=== PATIENT | female | born 1955 | race Caucasian/White ===

== ENCOUNTER 2017-11-23 01:52 | Inpatient (IN) ==
--- NOTE | 2017-11-23 02:00 | ED ---
HPI General Chief Complaint: Altered Mental Status Stated Complaint: poor mental status Time Seen by Provider: 11/23/17 01:59 Source: EMS Mode of arrival: EMS Limitations: altered mental status History of Present Illness HPI narrative: The patient is a 61 year old female who presents to the [facility] emergency department with a history of altered mental status noted by her earlier this evening. The patient had been asleep and then woke up rocking and not answering any questions. According to ambulance services, the patient has had a similar episode of altered mentation in the past, however the details are vague regarding this. They report that the patient's is on the way to the emergency department. They report that the patient has not been taking her medications for the last couple of days. The patient does have a known history of hypertension, hyperlipidemia, and chronic pain. No other history is able to be obtained from the patient as she is nonverbal currently. The patient arrives awake and alert, looking around the room, otherwise uncooperative with any questioning, testing. The patient's history is obtained from reviewing the patient's electronic medical record. The patient's arrives at the bedside and reports that the patient had a similar episode of this and has had recurrent episodes similar to this that first began 2 years ago. He reports that she will have bouts of poor p.o. intake that at times are brought on by a concern for losing weight. He denies her being on any psychiatric medications. He reports that in the past she has become nonverbal and altered when she gets dehydrated. He reports that about 10 days ago she began to complain of sores in her mouth. She reports that she had small ulcers in her mouth. They were treating this topically. The last time she complained of any sores or pain was Thursday of this past week. He however reports that she has not been eating or drinking any fluids for the last 2 days. The only 2 things that the patient had said during her evaluation in the emergency department is out when the tourniquet was applied and what when her name was called. Related Data Home Medications Medication Instructions Recorded Confirmed lisinopril 30 mg PO DAILY 11/23/17 11/23/17 morphine 30 mg PO BID 11/23/17 11/23/17 oxycodone-acetaminophen [Percocet] 1 tab PO Q8H PRN 11/23/17 11/23/17 pravastatin 40 mg PO DAILY 11/23/17 11/23/17 pregabalin [Lyrica] 200 mg PO TID 11/23/17 11/23/17 tizanidine 4 mg PO DAILY 11/23/17 11/23/17 Allergies Allergy/AdvReac Type Severity Reaction Status Date / Time No Known Allergies Allergy Unverified 11/23/17 02:03 Review of Systems ROS Unobtainable ROS Unobtainable: unobtainable due to mental status PMFSH Medical History Medical History Chronic pain (Acute) HTN (hypertension) (Acute) Hyperlipidemia (Acute) Surgical History Surgical History Previous back surgery (Acute) Family History Family History Father Colon cancer Social History Social History Substance History: No History of Abuse Second Hand Smoke Exposure: No Smoking Status: Current every day smoker Tobacco Type: Cigarettes Packs Per Day: 0.5 Cigarettes Per Day: 10.0 How Often Do You Have a Drink Containing Alcohol: Never Recent Travel in [facility] within the Last 8 Weeks: No Recent Out of Country Travel within the Last 8 Weeks: No Exam Const General: no acute distress and well developed Nutritional Appearance: well nourished Orientation: alert, awake and oriented x3 HENMT Head: normocephalic and atraumatic Nose: no nasal discharge and no epistaxis Mouth: moist mucous membranes Throat: other (When attempting to look at the patient's mouth and posterior oropharynx the patient tightly clenches her mouth shut.) Eyes Sclera: normal sclerae Pupils: PERRL EOM: EOM intact bilaterally Neck Neck: trachea midline and no JVD Resp Effort & Inspection: no use of accessory muscles Auscultation: clear to auscultation bilaterally Cardio Rate: regular rate Rhythm: regular rhythm Heart Sounds: no murmurs GI Inspection: non-distended Palpation: soft, no hepatosplenomegaly and nontender Back/Spine/Pelvis Back: no CVA tenderness Skin General: dry skin (warm) Neuro General: alert and awake Cranial Nerves: other (Uncooperative with formal neurologic tasting, but moving all extremities with 5/5 strenth and intact sensation over all dermatomes. No facial assymetry.) Speech: other (She is speaking very little when spoken to but did say a few words without slurring.) Motor: strength 5/5 throughout and no movement abnormalities noted Extrem General: normal to inspection, no clubbing, no cyanosis and no edema Psych Affect: irritable affect Judgment: poor Course Consultations Consultation #1: The patient's case including history, pertinent physical examination findings, and laboratory studies were discussed with Dr. Mujica. It was agreed that the patient would be admitted to the hospitalist service. Initial Documented Vital Signs Temperature 99.0 F 11/23/17 01:58 Pulse Rate 100 H 11/23/17 01:58 Respiratory Rate 20 11/23/17 01:58 Blood Pressure 133/85 11/23/17 01:58 Pulse Oximetry 99 11/23/17 01:58 Last Documented Vital Signs Temperature 98.7 F 11/23/17 16:35 Pulse Rate 86 11/23/17 16:35 Respiratory Rate 20 11/23/17 16:35 Blood Pressure 101/66 11/23/17 16:35 Pulse Oximetry 99 11/23/17 16:35 Medical Decision Making MDM Narrative Medical decision making narrative: During the course of the patient's emergency department visit, the patient's history, examination, and differential diagnosis were reviewed with the patient. The patient was placed on a equipment monitor phototypesetting with oximetry and frequent blood pressure monitoring. The patient had IV access obtained and blood work sent for analysis. Diagnostic evaluation was started regarding the patient's altered mentation. The patient was initially provided maintenance IV fluids while workup was initiated. Diagnostic studies are remarkable for a white count of 10.2, hemoglobin 13.6, platelets 213 with 74.6 neutrophils, PT 11.4, PTT 23.3, chemistry is remarkable for a GFR of 81, chloride 112, CO2 18.3, CPK 106, troponin I is 0.08. The patient's arrived at the bedside I asked about any reports of chest pain , he denies her having any complaints of chest pain recently. Patient's TSH was noted to be low at 0.114. Urinalysis was a catheterized urine and showed 30 protein 80 or gradient ketones, no other signs of infection, alcohol level was less than 3, urine drug screen positive for opiates. Chest x-ray revealed no acute cardiopulmonary disease, CT scan of the brain showed no acute intracranial abnormality. Given the patient's intermediate elevated troponin the patient was given a dose of aspirin at 324 mg p.o., nitroglycerin 1 inch the chest wall was applied. The patient will be admitted to the hospital for continued evaluation of altered mentation which according to the is a recurrent problem that is intermittently been happening over the last 2 years. Medical Screen Exam Complete: Yes Emergency Medical Condition: Yes Differential Diagnosis Differential Diagnosis: Intracranial mass, versus hepatic encephalopathy, versus other encephalopathy, versus ischemic stroke, versus hemorrhagic stroke, versus psychiatric disorder, versus electrolyte derangements, versus dehydration Medical Records Medical records reviewed: Yes I reviewed the patient's medical records. Lab Data Lab results reviewed: Yes I reviewed the patient's lab results. Result diagrams: 11/23/17 02:22 11/23/17 02:22 Lab Results 11/23/17 11/23/17 11/23/17 Range/Units 02:22 02:22 02:22 WBC 10.2 (4.0-11.0) th/mm3 RBC 4.31 (4.00-5.30) mil/mm3 Hgb 13.6 (11.6-15.3) gm/dL Hct 40.4 (35.0-46.0) % MCV 93.9 (80.0-100.0) fL MCH 31.6 (27.0-34.0) pg MCHC 33.6 (32.0-36.0) % RDW 14.1 (11.6-17.2) % Plt Count 213 (150-450) th/mm3 MPV 10.4 (7.0-11.0) fL Neut % (Auto) 74.6 H (16.0-70.0) % Lymph % (Auto) 21.6 (9.0-44.0) % [place] % (Auto) 3.3 (0.0-8.0) % Eos % (Auto) 0.1 (0.0-4.0) % Baso % (Auto) 0.4 (0.0-2.0) % Neut # (Auto) 7.6 (1.8-7.7) th/mm3 Lymph # (Auto) 2.2 (1.0-4.8) th/mm3 [place] # (Auto) 0.3 (0.0-0.9) th/mm3 Eos # (Auto) 0.0 (0.0-0.4) th/mm3 Baso # (Auto) 0.0 (0.0-0.2) th/mm3 WBC Differential . Differential Comment Auto diff final PT 11.4 (9.8-11.6) sec INR 1.1 Ratio APTT 23.3 L (24.3-30.1) sec Puncture Site Patient Temperature O2 Saturation (90-100) % ABG pH (7.380-7.420) ABG pCO2 (38-42) mmHg ABG pO2 (61-120) mmHg ABG HCO3 (22-26) mmol/L ABG O2 Content (12.0-20.0) Vol % ABG Base Excess (-2-2) mmol/L ABG Methemoglobin (0-2) % [place] Test Hemoglobin (12.0-16.0) G/DL Carboxyhemoglobin (0-4) % Inspired O2 % Critical Value Sodium 144 (136-145) meq/L Potassium 4.2 (3.5-5.1) meq/L Chloride 112 H (98-107) meq/L Carbon Dioxide 18.3 L (21.0-32.0) meq/L Anion Gap 14 (5-15) meq/L BUN 15 (7-18) mg/dL Creatinine 0.73 (0.50-1.00) mg/dL Estimated GFR 81 L (>89) mL/min Random Glucose 89 (74-106) mg/dL Lactic Acid (0.4-2.0) mmol/L Calcium 8.5 (8.5-10.1) mg/dL Total Bilirubin 0.5 (0.2-1.0) mg/dL AST 25 (15-37) U/L ALT 16 (10-53) U/L Alkaline Phosphatase 101 (45-117) U/L Ammonia (11-32) mcmol/L Total Creatine Kinase 106 (26-192) U/L CK-MB (CK-2) 2.7 (0.5-3.6) ng/mL Troponin I 0.08 H (0.02-0.05) ng/mL Total Protein 7.1 (6.4-8.2) g/dL Albumin 3.8 (3.4-5.0) g/dL Vitamin B12 (193-986) pg/mL TSH 0.114 L (0.358-3.740) uIU/mL Free T4 (0.76-1.46) ng/dL Free T3 (2.18-3.98) pg/mL Urine Color (Yellw/Straw) Urine Clarity (Clear) Urine pH (5.0-8.5) Ur Specific [place] (1.002-1.035) Urine Protein (Neg-Trace) mg/dL Urine Glucose (UA) (Negative) mg/dL Urine Ketones (Negative) mg/dL Urine Occult Blood (Negative) Urine Nitrate (Negative) Urine Bilirubin (Negative) Urine Urobilinogen (Less than 2) mg/dL Ur Leukocyte Esterase (Negative) Urine RBC (0-3) /hpf Urine WBC (0-5) /hpf Ur Squamous Epith Cells (0-5) /hpf Urine Mucus (Occasional) /lpf Micro UA Comment Ur Microscopic Review Urine Culture Comments Stl C.difficile Tox PCR (Negative) St C. diff Tox Epid 027 (Negative) Urine Opiates Screen (Neg) Ur Barbiturates Screen (Neg) Ur Amphetamines Screen (Neg) U Benzodiazepines Scrn (Neg) Urine Cocaine Screen (Neg) U Cannabinoids Screen (Neg) Serum Alcohol Less than 3 (0-5) mg/dL 11/23/17 11/23/17 11/23/17 Range/Units 02:22 02:22 04:00 WBC (4.0-11.0) th/mm3 RBC (4.00-5.30) mil/mm3 Hgb (11.6-15.3) gm/dL Hct (35.0-46.0) % MCV (80.0-100.0) fL MCH (27.0-34.0) pg MCHC (32.0-36.0) % RDW (11.6-17.2) % Plt Count (150-450) th/mm3 MPV (7.0-11.0) fL Neut % (Auto) (16.0-70.0) % Lymph % (Auto) (9.0-44.0) % [place] % (Auto) (0.0-8.0) % Eos % (Auto) (0.0-4.0) % Baso % (Auto) (0.0-2.0) % Neut # (Auto) (1.8-7.7) th/mm3 Lymph # (Auto) (1.0-4.8) th/mm3 [place] # (Auto) (0.0-0.9) th/mm3 Eos # (Auto) (0.0-0.4) th/mm3 Baso # (Auto) (0.0-0.2) th/mm3 WBC Differential Differential Comment PT (9.8-11.6) sec INR Ratio APTT (24.3-30.1) sec Puncture Site Patient Temperature O2 Saturation (90-100) % ABG pH (7.380-7.420) ABG pCO2 (38-42) mmHg ABG pO2 (61-120) mmHg ABG HCO3 (22-26) mmol/L ABG O2 Content (12.0-20.0) Vol % ABG Base Excess (-2-2) mmol/L ABG Methemoglobin (0-2) % [place] Test Hemoglobin (12.0-16.0) G/DL Carboxyhemoglobin (0-4) % Inspired O2 % Critical Value Sodium (136-145) meq/L Potassium (3.5-5.1) meq/L Chloride (98-107) meq/L Carbon Dioxide (21.0-32.0) meq/L Anion Gap (5-15) meq/L BUN (7-18) mg/dL Creatinine (0.50-1.00) mg/dL Estimated GFR (>89) mL/min Random Glucose (74-106) mg/dL Lactic Acid 1.4 (0.4-2.0) mmol/L Calcium (8.5-10.1) mg/dL Total Bilirubin (0.2-1.0) mg/dL AST (15-37) U/L ALT (10-53) U/L Alkaline Phosphatase (45-117) U/L Ammonia Less than 10 L (11-32) mcmol/L Total Creatine Kinase (26-192) U/L CK-MB (CK-2) (0.5-3.6) ng/mL Troponin I (0.02-0.05) ng/mL Total Protein (6.4-8.2) g/dL Albumin (3.4-5.0) g/dL Vitamin B12 (193-986) pg/mL TSH (0.358-3.740) uIU/mL Free T4 (0.76-1.46) ng/dL Free T3 (2.18-3.98) pg/mL Urine Color (Yellw/Straw) Urine Clarity (Clear) Urine pH (5.0-8.5) Ur Specific [place] (1.002-1.035) Urine Protein (Neg-Trace) mg/dL Urine Glucose (UA) (Negative) mg/dL Urine Ketones (Negative) mg/dL Urine Occult Blood (Negative) Urine Nitrate (Negative) Urine Bilirubin (Negative) Urine Urobilinogen (Less than 2) mg/dL Ur Leukocyte Esterase (Negative) Urine RBC (0-3) /hpf Urine WBC (0-5) /hpf Ur Squamous Epith Cells (0-5) /hpf Urine Mucus (Occasional) /lpf Micro UA Comment Ur Microscopic Review Urine Culture Comments Stl C.difficile Tox PCR (Negative) St C. diff Tox Epid 027 (Negative) Urine Opiates Screen Pos H (Neg) Ur Barbiturates Screen Neg (Neg) Ur Amphetamines Screen Neg (Neg) U Benzodiazepines Scrn Neg (Neg) Urine Cocaine Screen Neg (Neg) U Cannabinoids Screen Neg (Neg) Serum Alcohol (0-5) mg/dL 11/23/17 11/23/17 11/23/17 Range/Units 04:00 09:32 10:02 WBC (4.0-11.0) th/mm3 RBC (4.00-5.30) mil/mm3 Hgb (11.6-15.3) gm/dL Hct (35.0-46.0) % MCV (80.0-100.0) fL MCH (27.0-34.0) pg MCHC (32.0-36.0) % RDW (11.6-17.2) % Plt Count (150-450) th/mm3 MPV (7.0-11.0) fL Neut % (Auto) (16.0-70.0) % Lymph % (Auto) (9.0-44.0) % [place] % (Auto) (0.0-8.0) % Eos % (Auto) (0.0-4.0) % Baso % (Auto) (0.0-2.0) % Neut # (Auto) (1.8-7.7) th/mm3 Lymph # (Auto) (1.0-4.8) th/mm3 [place] # (Auto) (0.0-0.9) th/mm3 Eos # (Auto) (0.0-0.4) th/mm3 Baso # (Auto) (0.0-0.2) th/mm3 WBC Differential Differential Comment PT (9.8-11.6) sec INR Ratio APTT (24.3-30.1) sec Puncture Site Right radial Patient Temperature 98.6 O2 Saturation 95 (90-100) % ABG pH 7.45 H (7.380-7.420) ABG pCO2 23 L* (38-42) mmHg ABG pO2 94 (61-120) mmHg ABG HCO3 16 L* (22-26) mmol/L ABG O2 Content 14.9 (12.0-20.0) Vol % ABG Base Excess -7.7 L (-2-2) mmol/L ABG Methemoglobin 0.5 (0-2) % [place] Test Present Hemoglobin 11.0 L (12.0-16.0) G/DL Carboxyhemoglobin 0.0 (0-4) % Inspired O2 21 % Critical Value Yes Sodium (136-145) meq/L Potassium (3.5-5.1) meq/L Chloride (98-107) meq/L Carbon Dioxide (21.0-32.0) meq/L Anion Gap (5-15) meq/L BUN (7-18) mg/dL Creatinine (0.50-1.00) mg/dL Estimated GFR (>89) mL/min Random Glucose (74-106) mg/dL Lactic Acid (0.4-2.0) mmol/L Calcium (8.5-10.1) mg/dL Total Bilirubin (0.2-1.0) mg/dL AST (15-37) U/L ALT (10-53) U/L Alkaline Phosphatase (45-117) U/L Ammonia (11-32) mcmol/L Total Creatine Kinase (26-192) U/L CK-MB (CK-2) (0.5-3.6) ng/mL Troponin I 0.13 H (0.02-0.05) ng/mL Total Protein (6.4-8.2) g/dL Albumin (3.4-5.0) g/dL Vitamin B12 (193-986) pg/mL TSH (0.358-3.740) uIU/mL Free T4 1.02 (0.76-1.46) ng/dL Free T3 1.80 L (2.18-3.98) pg/mL Urine Color Yellow (Yellw/Straw) Urine Clarity Hazy H (Clear) Urine pH 6.0 (5.0-8.5) Ur Specific [place] 1.020 (1.002-1.035) Urine Protein 30 H (Neg-Trace) mg/dL Urine Glucose (UA) Negative (Negative) mg/dL Urine Ketones 80 or greater H (Negative) mg/dL Urine Occult Blood Small H (Negative) Urine Nitrate Negative (Negative) Urine Bilirubin Negative (Negative) Urine Urobilinogen Less than 2 (Less than 2) mg/dL Ur Leukocyte Esterase Small H (Negative) Urine RBC 4 H (0-3) /hpf Urine WBC 3 (0-5) /hpf Ur Squamous Epith Cells 2 (0-5) /hpf Urine Mucus Few H (Occasional) /lpf Micro UA Comment Cath-culture not ind Ur Microscopic Review Not Reportable Urine Culture Comments Cath-cult not ind Stl C.difficile Tox PCR (Negative) St C. diff Tox Epid 027 (Negative) Urine Opiates Screen (Neg) Ur Barbiturates Screen (Neg) Ur Amphetamines Screen (Neg) U Benzodiazepines Scrn (Neg) Urine Cocaine Screen (Neg) U Cannabinoids Screen (Neg) Serum Alcohol (0-5) mg/dL 11/23/17 11/23/17 Range/Units 14:11 14:45 WBC (4.0-11.0) th/mm3 RBC (4.00-5.30) mil/mm3 Hgb (11.6-15.3) gm/dL Hct (35.0-46.0) % MCV (80.0-100.0) fL MCH (27.0-34.0) pg MCHC (32.0-36.0) % RDW (11.6-17.2) % Plt Count (150-450) th/mm3 MPV (7.0-11.0) fL Neut % (Auto) (16.0-70.0) % Lymph % (Auto) (9.0-44.0) % [place] % (Auto) (0.0-8.0) % Eos % (Auto) (0.0-4.0) % Baso % (Auto) (0.0-2.0) % Neut # (Auto) (1.8-7.7) th/mm3 Lymph # (Auto) (1.0-4.8) th/mm3 [place] # (Auto) (0.0-0.9) th/mm3 Eos # (Auto) (0.0-0.4) th/mm3 Baso # (Auto) (0.0-0.2) th/mm3 WBC Differential Differential Comment PT (9.8-11.6) sec INR Ratio APTT (24.3-30.1) sec Puncture Site Patient Temperature O2 Saturation (90-100) % ABG pH (7.380-7.420) ABG pCO2 (38-42) mmHg ABG pO2 (61-120) mmHg ABG HCO3 (22-26) mmol/L ABG O2 Content (12.0-20.0) Vol % ABG Base Excess (-2-2) mmol/L ABG Methemoglobin (0-2) % [place] Test Hemoglobin (12.0-16.0) G/DL Carboxyhemoglobin (0-4) % Inspired O2 % Critical Value Sodium (136-145) meq/L Potassium (3.5-5.1) meq/L Chloride (98-107) meq/L Carbon Dioxide (21.0-32.0) meq/L Anion Gap (5-15) meq/L BUN (7-18) mg/dL Creatinine (0.50-1.00) mg/dL Estimated GFR (>89) mL/min Random Glucose (74-106) mg/dL Lactic Acid (0.4-2.0) mmol/L Calcium (8.5-10.1) mg/dL Total Bilirubin (0.2-1.0) mg/dL AST (15-37) U/L ALT (10-53) U/L Alkaline Phosphatase (45-117) U/L Ammonia (11-32) mcmol/L Total Creatine Kinase (26-192) U/L CK-MB (CK-2) (0.5-3.6) ng/mL Troponin I 0.11 H (0.02-0.05) ng/mL Total Protein (6.4-8.2) g/dL Albumin (3.4-5.0) g/dL Vitamin B12 321 (193-986) pg/mL TSH (0.358-3.740) uIU/mL Free T4 (0.76-1.46) ng/dL Free T3 (2.18-3.98) pg/mL Urine Color (Yellw/Straw) Urine Clarity (Clear) Urine pH (5.0-8.5) Ur Specific [place] (1.002-1.035) Urine Protein (Neg-Trace) mg/dL Urine Glucose (UA) (Negative) mg/dL Urine Ketones (Negative) mg/dL Urine Occult Blood (Negative) Urine Nitrate (Negative) Urine Bilirubin (Negative) Urine Urobilinogen (Less than 2) mg/dL Ur Leukocyte Esterase (Negative) Urine RBC (0-3) /hpf Urine WBC (0-5) /hpf Ur Squamous Epith Cells (0-5) /hpf Urine Mucus (Occasional) /lpf Micro UA Comment Ur Microscopic Review Urine Culture Comments Stl C.difficile Tox PCR Negative (Negative) St C. diff Tox Epid 027 Negative (Negative) Urine Opiates Screen (Neg) Ur Barbiturates Screen (Neg) Ur Amphetamines Screen (Neg) U Benzodiazepines Scrn (Neg) Urine Cocaine Screen (Neg) U Cannabinoids Screen (Neg) Serum Alcohol (0-5) mg/dL Imaging Data Radiologist's impression: Chest X-Ray 11/23/17 02:03 CONCLUSION: 1. No acute cardiopulmonary disease. Head CT 11/23/17 02:03 CONCLUSION: 1. No acute intracranial abnormality. . ECG Data Attestation: I personally reviewed and interpreted this ECG as follows: Interpretation: The patient had an EKG done on arrival that shows a sinus tachycardia rate of 104, QRS duration 77 ms, QTC [address] segment elevation. Discharge Plan Discharge Disposition Patient Disposition: 30 Still Patient Discharge Details Diagnosis: Altered mental status, Elevated troponin, Dehydration Physicians Team ED Provider: Joanne Puri Attending Provider: Adelina Simon Other Providers: Hadley Nair Discharge Interventions Interventions: ED Discharge Assessment Last Done: 11/23/17 06:03 Vital Signs Last Done: 11/23/17 02:02 Status ED Status: Left Department Discharge Information Discharge Date/Time: 11/23/17 06:03
[2017-11-23] MEDS ORDERED: Sod Chloride 0.9% Inj 1,000 ML IV.CONT SCH ×2 (02:15)
[2017-11-23 02:32] LABS: Baso % (Auto) 0.4 % (0.0-2.0); Eos % (Auto) 0.1 % (0.0-4.0); Hematocrit 40.4 % (35.0-46.0); Hemoglobin 13.6 gm/dL (11.6-15.3); Lymph # (Auto) 2.2 th/mm3 (1.0-4.8); Lymph % (Auto) 21.6 % (9.0-44.0); Mean Corpuscular HGB Conc 33.6 % (32.0-36.0); Mean Corpuscular Hemoglobin 31.6 pg (27.0-34.0); Mean Corpuscular Volume 93.9 fL (80.0-100.0); Mean Platelet Volume 10.4 fL (7.0-11.0); Mono # (Auto) 0.3 th/mm3 (0.0-0.9); Mono % (Auto) 3.3 % (0.0-8.0); Neut # (Auto) 7.6 th/mm3 (1.8-7.7); Neut % (Auto) 74.6 % (16.0-70.0); Platelet Count 213 th/mm3 (150-450); Red Blood Count 4.31 mil/mm3 (4.00-5.30); Red Cell Distribution Width 14.1 % (11.6-17.2); White Blood Count 10.2 th/mm3 (4.0-11.0)
--- NOTE | 2017-11-23 02:34 | CT ---
EXAM DATE: 11/23/2017 2:22 AM EDT AGE/SEX: 61 years / Female INDICATIONS: Altered mental status. CLINICAL DATA: This is the patient's initial encounter. Patient reports that signs and symptoms have been present for 1 day and indicates a pain score of 0/10. MEDICAL/SURGICAL HISTORY: Hypertension. None. RADIATION DOSE: 43.00 CTDI (mGy) COMPARISON: No prior exams available for comparison. TECHNIQUE: CT of the head without contrast. Using automated exposure control and adjustment of the mA and/or kV according to patient size, radiation dose was kept as low as reasonably achievable to ob tain optimal diagnostic quality images. DICOM format image data is available electronically for revi ew and comparison. FINDINGS: Cerebrum: The ventricles are normal for age. No evidence of midline shift, mass lesion, hemorrhage o r acute infarction. No extraaxial fluid collections are seen. Posterior Fossa: The cerebellum and brainstem are intact. The 4th ventricle is midline. The cerebe llopontine angle is unremarkable. Extracranial: The visualized portion of the orbits is intact. Skull: The calvaria is intact. No evidence of skull fracture. CONCLUSION: 1. No acute intracranial abnormality. . Electronically signed by: Bernardino Springer MD 11/23/2017 2:33 AM EDT
--- NOTE | 2017-11-23 02:40 | XR ---
EXAM DATE: 11/23/2017 2:03 AM EDT AGE/SEX: 61 years / Female INDICATIONS: Altered mental status. CLINICAL DATA: This is the patient's initial encounter. Patient reports that signs and symptoms have been present for 1 day and indicates a pain score of Nonresponsive. MEDICAL/SURGICAL HISTORY: Hypertension. . Unable to obtain. COMPARISON: No prior exams available for comparison. FINDINGS: A single AP view of the chest demonstrates the lungs to be symmetrically aerated without evidence of mass, infiltrate or effusion. The cardiomediastinal contours are unremarkable. Osseous structures a re intact. CONCLUSION: 1. No acute cardiopulmonary disease. Electronically signed by: Bernardino Springre MD 11/23/2017 2:39 AM EDT
[2017-11-23 02:49] LABS: Albumin 3.8 g/dL (3.4-5.0); Anion Gap 14 meq/L (5-15); Aspartate Aminotransferase 25 U/L (15-37); Blood Urea Nitrogen 15 mg/dL (7-18); Calcium 8.5 mg/dL (8.5-10.1); Carbon Dioxide 18.3 meq/L (21.0-32.0); Chloride 112 meq/L (98-107); Glomerular Filtration Rate 81 mL/min (>89); Glucose,Random 89 mg/dL (74-106); Potassium 4.2 meq/L (3.5-5.1); Sodium 144 meq/L (136-145)
[2017-11-23 02:56] LABS: Activated Partial Thrombo Time 23.3 sec (24.3-30.1); INR 1.1 Ratio; Prothrombin Time 11.4 sec (9.8-11.6)
[2017-11-23 02:58] LABS: Alanine Aminotransferase 16 U/L (10-53); Alkaline Phosphatase 101 U/L (45-117); Creatine Kinase 106 U/L (26-192); Thyroid Stimulating Hormone 0.114 uIU/mL (0.358-3.740); Total Protein 7.1 g/dL (6.4-8.2); Troponin I 0.08 ng/mL (0.02-0.05)
[2017-11-23 03:14] LABS: Creatine Kinase MB 2.7 ng/mL (0.5-3.6)
[2017-11-23] MEDS ORDERED: Aspirin 300 MG Supp RECTAL ONE (03:30)
[2017-11-23] MEDS ORDERED: Sodium Chlor 0.9% Inj 500 ML IV.SIG ONE (03:30)
[2017-11-23 04:11] LABS: Bilirubin,Urine Negative (Negative); Clarity,Urine Hazy (Clear); Color,Urine Yellow (Yellw/Straw); Glucose,Urine (UA) Negative (Negative); Leukocyte Esterase,Urine Small (Negative); Mucus,Urine Few /lpf (Occasional); Nitrite,Urine Negative (Negative); Squamous Epithelial Cell,Urine 2 /hpf (0-5)
[2017-11-23 04:12] LABS: Amphetamine Screen,Urine Neg (Neg); Barbiturate Screen,Urine Neg (Neg); Cannabinoid Screen,Urine Neg (Neg); Cocaine Screen,Urine Neg (Neg)
[2017-11-23 04:14] LABS: Opiate Screen,Urine Pos (Neg)
[2017-11-23] MEDS ORDERED: Acetaminophen 325 MG Tablet PO PRN (05:18)
[2017-11-23] MEDS ORDERED: Bisacodyl 10 MG Supp RECTAL PRN (05:18)
[2017-11-23] MEDS: Sod Chloride 0.9% Inj 1,000 ML IV.CONT SCH ×4 (05:23→20:09)
[2017-11-23 09:43] LABS: ABG Base Excess -7.7 mmol/L (-2-2); ABG PCO2 23 mmHg (38-42); ABG PO2 94 mmHg (61-120)
[2017-11-23] MEDS ORDERED: Dextrose 50% in Water 50 ML Vial IV.PUSH PRN (09:45)
--- NOTE | 2017-11-23 09:58 | P.HP ---
History of Present Illness Service: Hospitalist Primary Care Physician: nneka Mark Chief Complaint: altered mental status/encephalopathy History of Present Illness: This is a 61-year-old female with a past medical history significant for hypertension, dyslipidemia, chronic back pain status post multiple lumbar surgeries on morphine, Percocet, Lyrica and Tizanidine who presents to [facility] ED with altered mental status/acute encephalopathy. Patient is unable to provide any history and therefore history is obtained from discussion with the who is at the bedside as well as review of electronic medical record. Patient's states that the past Thursday patient began complaining of sores in her mouth and a slight cough. He denies any associated fever, chills, dizziness, nausea, vomiting, chest pain, shortness of breath or abdominal pain. He does not recall her having any complaints of dysuria or diarrhea. He reports that due to the painful sores in her mouth, she was eating and drinking very little. He says that yesterday she became even more altered and was not able to recognize him at all. He says that she was rocking and not answering any of his questions. Patient's reports that she had a similar episode 2 years ago that was due to dehydration. Patient's states that she has not been taking her normal pain medications for the past several days. Additionally, he denies that she has any history of psychiatric illness or seizure disorder. He does state that she has had 3 episodes of watery incontinent stools since admission. Per review of the EMR, patient did have an admission at this facility in 2016 due to altered mental status secondary to hepatic encephalopathy Review of Systems unobtainable due to mental status PMFSH - History History Provided By: Family Member, Medical Record - Medical History Medical History: Medical History (Last Reviewed 11/23/17 @ 09:17 by Delores hCavez) HTN (hypertension) Chronic pain Hyperlipidemia - Surgical History Surgical History: Surgical History (Last Reviewed 11/23/17 @ 09:17 by Delores Chavez) Previous back surgery - Family History Family History: Family History (Last Updated 11/23/17 @ 09:18 by Delores Chavez) Father Colon cancer - Social History I have reviewed the patient's Social History: Yes - Tobacco History Second Hand Smoke Exposure: No Smoking Status: Current every day smoker Tobacco Type: Cigarettes Packs Per Day: 0.5 - Alcohol History How Often Do You Have a Drink Containing Alcohol: Never - Substance Use History Substance History: No History of Abuse - Travel History Recent Travel in the [place] Within the Last 8 Weeks: No Recent Travel Out of the Country Within the Last 8 Weeks: No - Immunization History Tetanus Immunization: Unsure Hx Influenza Vaccine This Season: Unable to Assess Medications and Allergies Active Medications: Active Medications Acetaminophen (Tylenol) 650 mg PO Q4H PRN PRN Reason: Temp > 100.4 Al Hydroxide/Mg Hydroxide (Milk Of Magnesia Liq) 30 ml PO Q12H PRN PRN Reason: Mild Constipation Bisacodyl (Dulcolax Supp) 10 mg RECTAL DAILY PRN PRN Reason: SEVERE CONSITIPATION Sodium Chloride (Ns Inj) 1,000 mls @ 100 mls/hr IV.CONT .Q10H [facility] Last Admin: 11/23/17 05:34 Dose: 100 mls/hr Lactulose (Lactulose Liq) 30 ml PO DAILY PRN PRN Reason: SEVERE CONSITIPATION Ondansetron HCl (Zofran Inj) 4 mg IV.PUSH Q6H PRN PRN Reason: NAUSEA OR VOMITING Pravastatin Sodium (Pravachol) 40 mg PO DAILY [facility] Senna/Docusate Sodium (Kaylyn-Colace) 1 tab PO BID [facility] Sennosides (Senokot) 17.2 mg PO Q12H PRN PRN Reason: Moderate Constipation Sodium Chloride (Ns Flush) 2 ml IV.FLUSH PRN PRN PRN Reason: FLUSH AFTER USING IV ACCESS Allergies Allergy/AdvReac Type Severity Reaction Status Date / Time No Known Allergies Allergy Unverified 11/23/17 02:03 Home Medications Medication Instructions Recorded Confirmed Type lisinopril 30 mg PO DAILY 11/23/17 11/23/17 History morphine 30 mg PO BID 11/23/17 11/23/17 History oxycodone-acetaminophen [Percocet] 1 tab PO Q8H PRN 11/23/17 11/23/17 History pravastatin 40 mg PO DAILY 11/23/17 11/23/17 History pregabalin [Lyrica] 200 mg PO TID 11/23/17 11/23/17 History tizanidine 4 mg PO DAILY 11/23/17 11/23/17 History Exam Vital signs: Vital Signs 11/23/17 01:58 11/23/17 02:02 11/23/17 02:30 Temperature 99.0 F Pulse Rate 100 H 100 H Respiratory Rate 20 20 Blood Pressure 133/85 132/80 Pulse Oximetry 99 98 98 11/23/17 06:25 11/23/17 07:12 11/23/17 07:15 Temperature Pulse Rate 99 H Respiratory Rate 20 Blood Pressure 136/79 Pulse Oximetry 96 97 11/23/17 08:00 Temperature 98.8 F Pulse Rate 103 H Respiratory Rate 16 Blood Pressure 116/60 Pulse Oximetry 93 L Intake & Output 11/22/17 11/23/17 11/23/17 18:59 06:59 18:59 Intake Total 500 / 500 Balance 500 / 500 Weight 68.07 kg Intake: IV 500 / 500 NS Inj 500 ML @ Wide Open IV. 500 / 500 SIG BOLUS ONE Rx#:[id number] Narrative: GENERAL: WDWN middle aged female patient, in no acute distress. Awake. Minimally responsive. Will not follow commands. Lying on her right side with arms clenched up to her chest, when asked to roll on to her back she mumbles no otherwise does not answer any questions. Rocking rhythmically. is at the bedside. SKIN: Warm and dry. Well healed mid lumbar spine surgical incision. HEAD: Atraumatic. Normocephalic. EYES: Pupils equal and round. No scleral icterus. No injection or drainage. ENT: No nasal bleeding or discharge. Mucous membranes pink and moist. NECK: Trachea midline. No JVD. CARDIOVASCULAR: Regular rate and rhythm. No murmur, rubs or gallops. RESPIRATORY: No accessory muscle use. Clear to auscultation. Breath sounds equal bilaterally. GASTROINTESTINAL: Abdomen soft, non-tender, nondistended. Hepatic and splenic margins not palpable. MUSCULOSKELETAL: Extremities without clubbing, cyanosis, or edema. No obvious deformities. NEUROLOGICAL: Awake. Will not follow simple commands. Able to move all extremities spontaneously. Minimal verbalization. PSYCHIATRIC: Unable to assess due to patients altered mental status. Results - Labs CBC & Chem 7: 11/23/17 02:22 11/23/17 02:22 Labs: Laboratory Results - last 24 hr 11/23/17 11/23/17 11/23/17 02:22 02:22 02:22 WBC 10.2 RBC 4.31 Hgb 13.6 Hct 40.4 MCV 93.9 MCH 31.6 MCHC 33.6 RDW 14.1 Plt Count 213 MPV 10.4 Neut % (Auto) 74.6 H Lymph % (Auto) 21.6 Bradley % (Auto) 3.3 Eos % (Auto) 0.1 Baso % (Auto) 0.4 Neut # (Auto) 7.6 Lymph # (Auto) 2.2 Bradley # (Auto) 0.3 Eos # (Auto) 0.0 Baso # (Auto) 0.0 WBC Differential . Differential Comment Auto diff final PT 11.4 INR 1.1 APTT 23.3 L Sodium 144 Potassium 4.2 Chloride 112 H Carbon Dioxide 18.3 L Anion Gap 14 BUN 15 Creatinine 0.73 Estimated GFR 81 L Random Glucose 89 Lactic Acid Calcium 8.5 Total Bilirubin 0.5 AST 25 ALT 16 Alkaline Phosphatase 101 Ammonia Total Creatine Kinase 106 CK-MB (CK-2) 2.7 Troponin I 0.08 H Total Protein 7.1 Albumin 3.8 TSH 0.114 L Urine Color Urine Clarity Urine pH Ur Specific [place] Urine Protein Urine Glucose (UA) Urine Ketones Urine Occult Blood Urine Nitrate Urine Bilirubin Urine Urobilinogen Ur Leukocyte Esterase Urine RBC Urine WBC Ur Squamous Epith Cells Urine Mucus Micro UA Comment Ur Microscopic Review Urine Culture Comments Urine Opiates Screen Ur Barbiturates Screen Ur Amphetamines Screen U Benzodiazepines Scrn Urine Cocaine Screen U Cannabinoids Screen Serum Alcohol Less than 3 11/23/17 11/23/17 11/23/17 02:22 02:22 04:00 WBC RBC Hgb Hct MCV MCH MCHC RDW Plt Count MPV Neut % (Auto) Lymph % (Auto) Bradley % (Auto) Eos % (Auto) Baso % (Auto) Neut # (Auto) Lymph # (Auto) Bradley # (Auto) Eos # (Auto) Baso # (Auto) WBC Differential Differential Comment PT INR APTT Sodium Potassium Chloride Carbon Dioxide Anion Gap BUN Creatinine Estimated GFR Random Glucose Lactic Acid 1.4 Calcium Total Bilirubin AST ALT Alkaline Phosphatase Ammonia Less than 10 L Total Creatine Kinase CK-MB (CK-2) Troponin I Total Protein Albumin TSH Urine Color Urine Clarity Urine pH Ur Specific [place] Urine Protein Urine Glucose (UA) Urine Ketones Urine Occult Blood Urine Nitrate Urine Bilirubin Urine Urobilinogen Ur Leukocyte Esterase Urine RBC Urine WBC Ur Squamous Epith Cells Urine Mucus Micro UA Comment Ur Microscopic Review Urine Culture Comments Urine Opiates Screen Pos H Ur Barbiturates Screen Neg Ur Amphetamines Screen Neg U Benzodiazepines Scrn Neg Urine Cocaine Screen Neg U Cannabinoids Screen Neg Serum Alcohol 11/23/17 04:00 WBC RBC Hgb Hct MCV MCH MCHC RDW Plt Count MPV Neut % (Auto) Lymph % (Auto) Bradley % (Auto) Eos % (Auto) Baso % (Auto) Neut # (Auto) Lymph # (Auto) Bradley # (Auto) Eos # (Auto) Baso # (Auto) WBC Differential Differential Comment PT INR APTT Sodium Potassium Chloride Carbon Dioxide Anion Gap BUN Creatinine Estimated GFR Random Glucose Lactic Acid Calcium Total Bilirubin AST ALT Alkaline Phosphatase Ammonia Total Creatine Kinase CK-MB (CK-2) Troponin I Total Protein Albumin TSH Urine Color Yellow Urine Clarity Hazy H Urine pH 6.0 Ur Specific [place] 1.020 Urine Protein 30 H Urine Glucose (UA) Negative Urine Ketones 80 or greater H Urine Occult Blood Small H Urine Nitrate Negative Urine Bilirubin Negative Urine Urobilinogen Less than 2 Ur Leukocyte Esterase Small H Urine RBC 4 H Urine WBC 3 Ur Squamous Epith Cells 2 Urine Mucus Few H Micro UA Comment Cath-culture not ind Ur Microscopic Review Not Reportable Urine Culture Comments Cath-cult not ind Urine Opiates Screen Ur Barbiturates Screen Ur Amphetamines Screen U Benzodiazepines Scrn Urine Cocaine Screen U Cannabinoids Screen Serum Alcohol - Imaging Impressions Chest X-Ray 11/23/17 02:03 CONCLUSION: 1. No acute cardiopulmonary disease. Head CT 11/23/17 02:03 CONCLUSION: 1. No acute intracranial abnormality. . Caprini VTE Risk Assessment Caprini VTE Risk Assessment: Moderate/High Risk (score >= 2) Caprini Risk Assessment Model: Point Value = 1 Point Value = 2 Point Value = 3 Point Value = 5 Age 41-60 Minor surgery BMI > 25 kg/m2 Swollen legs Varicose veins or History of unexplained or recurrent spontaneous Oral contraceptives or hormone replacement Sepsis (< 1 month) Serious lung disease, including pneumonia (< 1 month) Abnormal pulmonary function Acute myocardial infarction Congestive heart failure (< 1 month) History of inflammatory bowel disease Medical patient at bed rest Age 61-74 Arthroscopic surgery Major open surgery (> 45 min) Laparoscopic surgery (> 45 min) Malignancy Confined to bed (> 72 hours) Immobilizing plaster cast Central venous access Age >= 75 History of VTE Family history of VTE Factor V Leiden Prothrombin [id number] Lupus anticoagulant Anticardiolipin antibodies Elevated serum homocysteine Heparin-induced thrombocytopenia Other congenital or acquired thrombophilia Stroke (< 1 month) Elective arthroplasty Hip, pelvis, or leg fracture Acute spinal cord injury (< 1 month) Prophylaxis Regimen: Total Risk Factor Score Risk Level Prophylaxis Regimen 0-1 Low Early ambulation 2 Moderate Order ONE of the following: *Sequential Compression Device (SCD) *Heparin 5000 units SQ BID 3-4 Higher Order ONE of the following medications: *Heparin 5000 units SQ TID *Enoxaparin/Lovenox 40 mg SQ daily (WT < 150 kg, CrCl > 30 mL/min) *Enoxaparin/Lovenox 30 mg SQ daily (WT < 150 kg, CrCl > 10-29 mL/min) *Enoxaparin/Lovenox 30 mg SQ BID (WT < 150 kg, CrCl > 30 mL/min) AND/OR *Sequential Compression Device (SCD) 5 or more Highest Order ONE of the following medications: *Heparin 5000 units SQ TID (Preferred with Epidurals) *Enoxaparin/Lovenox 40 mg SQ daily (WT < 150 kg, CrCl > 30 mL/min) *Enoxaparin/Lovenox 30 mg SQ daily (WT < 150 kg, CrCl > 10-29 mL/min) *Enoxaparin/Lovenox 30 mg SQ BID (WT < 150 kg, CrCl > 30 mL/min) AND *Sequential Compression Device (SCD) Assessment and Plan - Plan Acute encephalopathy/altered mental status unclear etiology, possibly due to combination of polypharmacy and poor oral intake/dehydration no hx of psychiatric illness CT head neg for acute intracranial abnormality UDS + opiates. Patient on morphine, Percocet, Lyrica and Tizanidine at home Ammonia level 10 CBC WNL, CXR neg, images reviewed by me, UA not indicative of UTI afebrile, O2 sats 93% on RA -neuro checks -continuous cardiac monitoring -PT/OT/ST -swallow evaluation -obtain EEG and ABG -obtain RPR, check B12 level -fall and seizure precautions -avoid all sedating medications, will hold home Morphine, Percocet, Lyrica and Tizanidine -IVF Elevated troponin, mild EKG with sinus tach, no e/o ischemia no complaints of chest pain per -continue to trend Abbey -continuous cardiac monitoring Diarrhea reports 3 watery incontinent BMs -send stool for C diff, enteric stool studies -keep hydrated -avoid stool softeners -monitor stooling Low TSH, 0.114 -check free T4 and Total T3 DVT prophylaxis -Heparin sq Code Status: FULL Discussed Condition With: , nursing staff, Dr. Simon
[2017-11-23] MEDS ORDERED: levETIRAcetam 1000mg/100mL Inj 100 ML IV.SIG ONE (11:11)
[2017-11-23 11:14] LABS: Free T4 (Free Thyroxine) 1.02 ng/dL (0.76-1.46); Triiodothyronine (T3) Free 1.8 pg/mL (2.18-3.98); Troponin I 0.13 ng/mL (0.02-0.05)
[2017-11-23] MEDS: Senna/Docusate Sodium 8.6/50 MG Tablet PO SCH (11:19)
--- NOTE | 2017-11-23 11:41 | MG ---
cc: Hadley Nair MD, PhD TYPE OF STUDY: EEG. TECHNIQUE: This is a 17-channel EEG. DESCRIPTION: The background rhythm is generally slow in the delta frequency of 3-4 Hz. At times, there is a theta rhythm. Vertex sharp waves are seen consistent with sleep activity. There is some triphasic activity as well. Some sharp activity identified bilaterally of nonspecific. INTERPRETATION: Abnormal study consistent with diffuse encephalopathy with vertex sharp waves, probably related to sleep activity. Also, some evidence of high-amplitude sharp activity, which mainly has a contour of triphasic waves consistent with metabolic encephalopathy. Hadley Nair MD, PhD RODNEY/andrés , 11:26 AM , 11:33 AM
[2017-11-23 15:14] LABS: Troponin I 0.11 ng/mL (0.02-0.05)
--- NOTE | 2017-11-23 16:22 | ECG ---
Date Performed: 11/23/2017 Time Performed: 02:03:19 PTAGE: 61 years EKG: SINUS TACHYCARDIA NONSPECIFIC T-WAVE ABNORMALITY ABNORMAL RHYTHM ECG PREVIOUS TRACING : 01/05/2016 13.35 Since the previous tracing, no significant change noted DOCTOR: Matilde Childress Interpretating Date/Time 11/23/2017 16:21:31
[2017-11-23] MEDS ORDERED: Heparin - SQ 10,000 UNITS/ML Vial SQ SCH (21:00)
--- NOTE | 2017-11-23 21:02 | MB ---
cc: aHdley Nair MD, PhD DATE: 11/23/2017 REASON FOR CONSULTATION: Mental status change. HISTORY OF PRESENT ILLNESS: Ms. Woodruff is a 61-year-old woman whose states she began to have a sore throat about a week ago and because of this, decreased her p.o. intake for the past week. She has not been eating much or drinking much. states that over the last day or so, she has become essentially noncommunicative, not following commands, not making any sense. He states she has had a similar episode a couple years ago, which did respond to IV fluids. PAST MEDICAL HISTORY: There is a history of hypertension, hyperlipidemia, chronic pain. MEDICATIONS: 1. Currently are Keppra, which was started in the hospital. 2. Subcutaneous heparin 5000 b.i.d. 3. Keppra dose is Keppra dose is 500 mg IV every 12 hours. 4. Ativan p.r.n. 5. Zofran p.r.n. 6. Pravachol 40 mg daily. 7. Senokot. NEUROLOGICAL EXAMINATION: VITAL SIGNS: Her blood pressure is 112/64, pulse is 107, respirations 20, temperature 99.1 degrees. HIGHER CORTICAL FUNCTION: She is alert appearing has no speech output. She follows some commands. NECK: Supple. NEUROLOGIC: Cranial nerves are intact. Motor exam: She has no focal deficits, but difficult to fully assess due to lack of cooperation. Tone is normal. CT brain negative. EEG shows diffuse slowing with triphasic waves. There is sharp activity thought to be mainly part of triphasic waves. LABORATORY DATA: The white count is 10,200, hemoglobin is 13.6, hematocrit 40.4%, platelet count 213,000. Tox screen positive for opiates. Her PT 11.4, INR 1.1, aPTT 23.3. Sodium is 144, potassium 4.2, chloride 112, CO2 is 18.3. The BUN is 15, creatinine 0.73, GFR is 81, glucose 89, AST 25, ALT 16, ammonia less than 10. Troponin 0.08. B12 level 321, TSH 0.114, T3 1.8. RPR pending. IMPRESSION: Probable encephalopathy. RECOMMENDATION: I would like to get an MRI of the brain to rule out stroke. I also recommend lumbar puncture to rule out [employer] infection. Continue the Keppra for now, although history is not entirely consistent with seizure activity. Hadley Nair MD, PhD RODNEY/chana , 06:02 PM , 06:09 PM
[2017-11-24] MEDS: Sod Chloride 0.9% Inj 1,000 ML IV.CONT SCH ×2 (00:31→11:36)
[2017-11-24] MEDS: Senna/Docusate Sodium 8.6/50 MG Tablet PO SCH ×2 (00:32→08:49)
[2017-11-24 08:38] LABS: Baso % (Auto) 0.1 % (0.0-2.0); Hematocrit 33.3 % (35.0-46.0); Hemoglobin 11.3 gm/dL (11.6-15.3); Lymph # (Auto) 1.8 th/mm3 (1.0-4.8); Lymph % (Auto) 19.5 % (9.0-44.0); Mean Corpuscular HGB Conc 33.9 % (32.0-36.0); Mean Corpuscular Hemoglobin 31.8 pg (27.0-34.0); Mean Platelet Volume 9.6 fL (7.0-11.0); Mono # (Auto) 0.5 th/mm3 (0.0-0.9); Neut # (Auto) 7.1 th/mm3 (1.8-7.7); Neut % (Auto) 75.4 % (16.0-70.0); Platelet Count 185 th/mm3 (150-450); Red Blood Count 3.54 mil/mm3 (4.00-5.30); Red Cell Distribution Width 14.3 % (11.6-17.2); White Blood Count 9.4 th/mm3 (4.0-11.0)
[2017-11-24 09:08] LABS: Alanine Aminotransferase 15 U/L (10-53); Albumin 3.1 g/dL (3.4-5.0); Alkaline Phosphatase 77 U/L (45-117); Anion Gap 16 meq/L (5-15); Aspartate Aminotransferase 29 U/L (15-37); Blood Urea Nitrogen 12 mg/dL (7-18); Calcium 7.9 mg/dL (8.5-10.1); Carbon Dioxide 13.4 meq/L (21.0-32.0); Chloride 122 meq/L (98-107); Glomerular Filtration Rate Greater Than 89 mL/min (>89); Glucose,Random 77 mg/dL (74-106); Sodium 151 meq/L (136-145); Total Protein 5.9 g/dL (6.4-8.2)
--- NOTE | 2017-11-24 09:09 | P.PN ---
Subjective Interval history: Follow-up for encephalopathy. Patient seen with her at bedside. Patient remains nonverbal, although does moan, follows few simple commands, and shakes her head "no" to few questions. History is very limited from the patient. reports not much improvement compared to yesterday. She denies any pain. No documented fevers overnight. She continues to have episodes of diarrhea. No other events reported overnight. Physical Exam Vital signs: Vital Signs 11/23/17 11:48 11/23/17 16:35 11/23/17 20:00 Temperature 99.1 F 98.7 F 99.3 F Pulse Rate 107 H 86 97 H Respiratory Rate 20 20 20 Blood Pressure 112/64 101/66 124/69 Pulse Oximetry 95 99 11/24/17 00:00 11/24/17 04:00 11/24/17 07:40 Temperature 99.3 F 98.7 F 99.5 F Pulse Rate 102 H 97 H 78 Respiratory Rate 20 16 20 Blood Pressure 124/69 122/60 140/66 Pulse Oximetry 97 99 Intake & Output 11/23/17 11/24/17 11/24/17 18:59 06:59 18:59 Intake Total 1300 / 1300 1105 / 1105 Balance 1300 / 1300 1105 / 1105 Weight 68.039 kg Intake: IV 1300 / 1300 1105 / 1105 NS Inj 1,000 ML @ 100 mls/hr IV 1200 / 1200 1000 / 1000 .CONT .Q10H [facility] Rx#:[id number] Keppra 1000 mg/100 mL Premix 100 / 100 100 ML @ 400 mls/hr IV.SIG ONCE ONE Rx#:[id number] Keppra Inj 500 MG In NS Inj 100 105 / 105 ML @ 400 mls/hr IV.SIG Q12H [facility] Rx#:[id number] Other: # Urine Diapers 5 2 # Incontinent Bowel Movements 2 Weight On Admission 68.039 kg Narrative: GENERAL: Well-nourished, well-developed middle-aged female patient in NAD. Awake, opens eyes on command. SKIN: Warm and dry. No rash. HEENT: Normocephalic. Atraumatic. Pupils equal and round. Mucous membranes pink and moist. NECK: Supple. Trachea midline. Nontender. Touches chin to chest during exam. CARDIOVASCULAR: Regular rate and rhythm. No murmur appreciated. RESPIRATORY: No accessory muscle use. Clear to auscultation. Breath sounds equal bilaterally. GASTROINTESTINAL: Abdomen soft, non-tender, nondistended. Normoactive bowel sounds x4. MUSCULOSKELETAL: No obvious deformities. Extremities without clubbing, cyanosis , or edema. NEUROLOGICAL: Awake and alert. Moving all extremities spontaneously. Did participate in bilateral upper extremity strength testing, with 5/5 strength. Does not verbalize any words, but does shake her head no and moans throughout exam. PSYCHIATRIC: Unable to assess due to altered mental status. Results - Labs CBC & Chem 7: 11/24/17 08:21 11/24/17 08:21 Laboratory Results - last 24 hr 11/23/17 11/23/17 11/23/17 09:32 10:02 14:11 WBC RBC Hgb Hct MCV MCH MCHC RDW Plt Count MPV Neut % (Auto) Lymph % (Auto) [place] % (Auto) Eos % (Auto) Baso % (Auto) Neut # (Auto) Lymph # (Auto) [place] # (Auto) Eos # (Auto) Baso # (Auto) WBC Differential Differential Comment Puncture Site Right radial Patient Temperature 98.6 O2 Saturation 95 ABG pH 7.45 H ABG pCO2 23 L* ABG pO2 94 ABG HCO3 16 L* ABG O2 Content 14.9 ABG Base Excess -7.7 L ABG Methemoglobin 0.5 [place] Pablo Test Present Hemoglobin 11.0 L Carboxyhemoglobin 0.0 Inspired O2 21 Critical Value Yes Sodium Potassium Chloride Carbon Dioxide Anion Gap BUN Creatinine Estimated GFR POC Glucose Random Glucose Calcium Total Bilirubin AST ALT Alkaline Phosphatase Troponin I 0.13 H 0.11 H Total Protein Albumin Vitamin B12 321 Free T4 1.02 Free T3 1.80 L Stl C.difficile Tox PCR St C. diff Tox Epid 027 11/23/17 11/23/17 11/24/17 14:45 23:31 08:21 WBC 9.4 RBC 3.54 L Hgb 11.3 L D Hct 33.3 L MCV 94.0 MCH 31.8 MCHC 33.9 RDW 14.3 Plt Count 185 MPV 9.6 Neut % (Auto) 75.4 H Lymph % (Auto) 19.5 [place] % (Auto) 5.0 Eos % (Auto) 0.0 Baso % (Auto) 0.1 Neut # (Auto) 7.1 Lymph # (Auto) 1.8 [place] # (Auto) 0.5 Eos # (Auto) 0.0 Baso # (Auto) 0.0 WBC Differential . Differential Comment Auto diff final Puncture Site Patient Temperature O2 Saturation ABG pH ABG pCO2 ABG pO2 ABG HCO3 ABG O2 Content ABG Base Excess ABG Methemoglobin [place] Test Hemoglobin Carboxyhemoglobin Inspired O2 Critical Value Sodium Potassium Chloride Carbon Dioxide Anion Gap BUN Creatinine Estimated GFR POC Glucose 75 Random Glucose Calcium Total Bilirubin AST ALT Alkaline Phosphatase Troponin I Total Protein Albumin Vitamin B12 Free T4 Free T3 Stl C.difficile Tox PCR Negative St C. diff Tox Epid 027 Negative 11/24/17 08:21 WBC RBC Hgb Hct MCV MCH MCHC RDW Plt Count MPV Neut % (Auto) Lymph % (Auto) [place] % (Auto) Eos % (Auto) Baso % (Auto) Neut # (Auto) Lymph # (Auto) [place] # (Auto) Eos # (Auto) Baso # (Auto) WBC Differential Differential Comment Puncture Site Patient Temperature O2 Saturation ABG pH ABG pCO2 ABG pO2 ABG HCO3 ABG O2 Content ABG Base Excess ABG Methemoglobin [place] Test Hemoglobin Carboxyhemoglobin Inspired O2 Critical Value Sodium 151 H Potassium 3.0 L D Chloride 122 H D Carbon Dioxide 13.4 L Anion Gap 16 H BUN 12 Creatinine 0.53 Estimated GFR Greater than 89 POC Glucose Random Glucose 77 Calcium 7.9 L Total Bilirubin 0.5 AST 29 ALT 15 Alkaline Phosphatase 77 Troponin I Total Protein 5.9 L D Albumin 3.1 L D Vitamin B12 Free T4 Free T3 Stl C.difficile Tox PCR St C. diff Tox Epid 027 - Imaging Chest X-Ray 11/23/17 02:03 CONCLUSION: 1. No acute cardiopulmonary disease. Head CT 11/23/17 02:03 CONCLUSION: 1. No acute intracranial abnormality. . Assessment and Plan - Plan 61-year-old female with a past medical history significant for hypertension, dyslipidemia, chronic back pain status post multiple lumbar surgeries on morphine, Percocet, Lyrica and Tizanidine who presents to [facility] ED with altered mental status/acute encephalopathy. Patient is unable to provide any history and therefore history is obtained from discussion with the who is at the bedside as well as review of electronic medical record. Acute encephalopathy/altered mental status: acute, unclear etiology, possibly due to combination of polypharmacy and poor oral intake/dehydration. Rule out infection/stroke. No hx of psychiatric illness -CT head reviewed and neg for any acute intracranial abnormality -UDS + opiates. Patient on morphine, Percocet, Lyrica and Tizanidine at home -Ammonia level 10 -CBC wnl, afebrile, CXR neg, images reviewed by me, UA not indicative of UTI -Blood cultures ordered -neuro checks, fall/seizure precautions, continuous cardiac monitoring -PT/OT/ST with swallow evaluation -EEG abnormal consistent with encephalopathy -RPR nonreactive, vit B12 321 -avoid all sedating medications, holding home Morphine, Percocet, Lyrica and Tizanidine -Supportive treatment with IVF - changed to D5 1/2 NS with KCl (Na 151 and K 3.0) -Consulted neurology with abnormal EEG, ordered LP and MRI -Continue Keppra for now -Check ESR/CRP Elevated troponin, mild: patient denying any chest pain to providers and denies any reported chest pain from the patient. Suspect demand ischemia from tachycardia -EKG with sinus tach, no evidence of ischemia -troponins flat 0.08, 0.13, 0.11 -continuous cardiac monitoring Diarrhea: reports 3 watery incontinent BMs, continues to have diarrhea throughout admission -stool negative for C diff -enteric stool studies pending -give IVF hydration -start lactinex -avoid stool softeners -monitor BMs Low TSH, 0.114 -Free T4 wnl -Outpatient f/up with PCP and repeat TSH/T4 Hypernatremia/Hypokalemia: Na 151 and K 3.0. Suspect iatrogenic from IVF in combination with poor oral intake -change IVF from NS to D5W with KCl @ 84cc/hr -Repeat BMP this afternoon and in am DVT prophylaxis -Heparin sq Discussed Condition With: Patient, Patient's , RN, Dr. Simon I spent 35 minutes [id number] with the patient or on the fitch discussing the patient's disposition, prognosis, and plan of care with her caregivers. Over half the time spent was devoted to counseling the patient regarding placement in coordinating care with caregivers and case management. Discharge Planning: Discharge pending LP, MRI, and further clinical improvement. Not ready for discharge.
[2017-11-24] MEDS ORDERED: KCL 20 mEq/D5W/NaCl 0.45% Inj 1,000 ML IV.CONT SCH (12:45)
--- NOTE | 2017-11-24 13:45 | P.RAD ---
Post Procedure Progress Note - Pre Procedure Diagnosis (1) Altered mental status - Post Procedure Diagnosis (1) Altered mental status - Procedure Information Procedure Date: 11/24/17 Supervising Radiologist: Michael Yuan Jr, MD Anesthesia: Local - Plan of Activity Patient to Unit: Nursing Unit Patient Condition: Good See PACS Report for procedural detail/treatment. Spinal Procedure Lumbar Puncture L2-L3 Fluid Description: Clear Puncture Time: 13:08 Findings: 10 mL of clear CSF obtained. Sent to lab.
--- NOTE | 2017-11-24 13:59 | IR ---
EXAM DATE: 11/24/2017 12:00 AM EDT AGE/SEX: 61 years / Female INDICATIONS: Patient presents with altered mental status in need of lumbar puncture. CLINICAL DATA: This is the patient's initial encounter. Patient reports that signs and symptoms have been present for 1 day and indicates a pain score of Nonresponsive. MEDICAL/SURGICAL HISTORY: Hypertension. Hyperlipidemia, Chronic pain . Back surgery COMPARISON: No prior exams available for comparison. FLUORO TIME (min): 1.0 IMAGE SERIES: 3 ACCESS SITE: L3-4 LUMBAR PUNCTURE TIME: 1308 hours FLUID: Total volume of 10 cc of clear fluid was removed. Fluid was sent to lab for ordered studies. MEDICATION(S): 5cc Lidocaine ; . . PROCEDURE: 1. Fluoroscopic guided lumbar puncture. The risks, benefits and alternatives to the procedure were explained and verbal and written consent w as obtained. The site was prepped in sterile fashion. Full sterile technique was used, including ca p, mask, sterile gloves and gown and a large sterile sheet. Hand hygiene and 2% chlorhexidine and/or betadine/alcohol prep was utilized per protocol for cutaneous antisepsis. The skin and subcutaneous tissues were infiltrated with local anesthetic solution. With fluoroscopic guidance the lumbar thecal sac was punctured at the level above. The fluid describ ed above was removed without difficulty. The patient tolerated the procedure well and there were no complications. CONCLUSION: 1. Uncomplicated fluoroscopically guided lumbar puncture. Electronically signed by: Michael Yuan MD 11/24/2017 1:57 PM EDT
[2017-11-24] MEDS ORDERED: Sodium Chloride 0.9% 2 ML Flush PRN IV.FLUSH (14:12)
[2017-11-24 14:16] LABS: Total Protein,CSF 40.5 mg/dL (15.0-45.0)
[2017-11-24] MEDS: Lactobacillus Acidophilus/L. Spores Tablet PO SCH (14:45)
[2017-11-24 14:50] LABS: Lymphocytes, CSF 100 %; Neutrophils,CSF 0 %; RBC on Tube 4 5 /mm3
[2017-11-24] MEDS ORDERED: Gadobutrol PF 7.5 MMOL/7.5 ML Vial (for RAD) IV.SIG ONE (15:00)
--- NOTE | 2017-11-24 15:29 | MR ---
EXAM DATE: 11/24/2017 12:00 AM EDT AGE/SEX: 61 years / Female INDICATIONS: CVA. Altered mental status. CLINICAL DATA: This is the patient's initial encounter. Patient reports that signs and symptoms have been present for 1 day and indicates a pain score of 0/10. MEDICAL/SURGICAL HISTORY: Hypertension. . Back surgery. COMPARISON: [facility] – [place], CT HEAD W/O CONTRAST, 11/23/2017. . TECHNIQUE: Multiplanar, multisequence examination of the brain was performed without and with 6.8 ml Gadavist (gadobutrol) contrast as a single exam dose. FINDINGS: The study is diffusely degraded by motion artifact. Cerebrum: The ventricles are normal for age. No evidence of midline shift, mass lesion, hemorrhage or acute infarction. No extraaxial fluid collections are seen. The pituitary gland and suprasellar cistern are normal in configuration. White Matter: No significant signal abnormalities are seen in the white matter. Posterior Fossa: The cerebellum and brainstem are intact. The 4th ventricle is midline. The cerebel lopontine angle is unremarkable. The cerebellar tonsils are normal in position. Diffusion Imaging: No focal areas of restricted diffusion are seen. No evidence of acute infarction . Extracranial: The visualized portions of the orbits and paranasal sinuses are unremarkable. Post Contrast: No abnormal areas of parenchymal or dural enhancement. No evidence of blood-brain ba rrier breakdown. CONCLUSION: 1. Suboptimal examination secondary to motion artifact. 2. No acute hemorrhage or mass effect identified. Electronically signed by: Evert Gomez MD 11/24/2017 3:28 PM EDT
[2017-11-24] MEDS: KCL 20 mEq/Dextrose 5% Inj 1,000 ML IV.CONT SCH (15:35)
[2017-11-24 18:15] LABS: Bacteria,Urine Many /hpf; Bilirubin,Urine Negative (Negative); Clarity,Urine Clear (Clear); Color,Urine Yellow (Yellw/Straw); Glucose,Urine (UA) Negative (Negative); Leukocyte Esterase,Urine Trace (Negative); Mucus,Urine Few /lpf (Occasional); Nitrite,Urine Positive (Negative); Specific Gravity,Urine 1.015 (1.002-1.035)
--- NOTE | 2017-11-24 18:24 | P.PNNEU ---
Subjective Subjective Comments: no new c/o. still confused and not following commands or communicating. C/O diffuse pain Active Medications: Active Medications Acetaminophen (Tylenol) 650 mg PO Q4H PRN PRN Reason: Temp > 100.4 Al Hydroxide/Mg Hydroxide (Milk Of Magnesia Liq) 30 ml PO Q12H PRN PRN Reason: Mild Constipation Bisacodyl (Dulcolax Supp) 10 mg RECTAL DAILY PRN PRN Reason: SEVERE CONSITIPATION Cyanocobalamin (Vitamin B12 Inj) 1,000 mcg IM Q7D [facility] Stop: 12/15/17 16:01 Last Admin: 11/24/17 16:14 Dose: 1,000 mcg Dextrose (D50w Vial) 50 ml IV.PUSH UNSCH PRN PRN Reason: PER HYPOGLYCEMIA PROTOCOL Glucagon (Glucagon Inj) 1 mg OTHER UNSCH PRN PRN Reason: for Hypoglycemia Protocol Levetiracetam 500 mg/ Sodium (Chloride) 105 mls @ 400 mls/hr IV.SIG Q12H [facility] Last Infusion: 11/24/17 13:38 Dose: Infused Potassium Chloride/Dextrose (D5w + Kcl 20 Meq Inj) 1,000 mls @ 84 mls/hr IV.CONT .[id number] [facility] Last Admin: 11/24/17 15:35 Dose: 84 mls/hr Lactobacillus Acidophilus (Lactinex) 1 tab PO BID [facility] Last Admin: 11/24/17 14:45 Dose: Not Given Lactulose (Lactulose Liq) 30 ml PO DAILY PRN PRN Reason: SEVERE CONSITIPATION Lorazepam (Ativan Inj) 1 mg IV.PUSH Q5M PRN PRN Reason: SEIZURES Ondansetron HCl (Zofran Inj) 4 mg IV.PUSH Q6H PRN PRN Reason: NAUSEA OR VOMITING Pravastatin Sodium (Pravachol) 40 mg PO DAILY [facility] Last Admin: 11/24/17 08:49 Dose: Not Given Senna/Docusate Sodium (Kaylyn-Colace) 1 tab PO BID [facility] Last Admin: 11/24/17 08:49 Dose: Not Given Sennosides (Senokot) 17.2 mg PO Q12H PRN PRN Reason: Moderate Constipation Sodium Chloride (Ns Flush) 2 ml IV.FLUSH BID [facility] Sodium Chloride (Ns Flush) 2 ml IV.FLUSH PRN PRN PRN Reason: FLUSH AFTER USING IV ACCESS Allergies/Adverse Reactions: Allergies Allergy/AdvReac Type Severity Reaction Status Date / Time No Known Allergies Allergy Unverified 11/23/17 02:03 Physical Exam Vital signs: Vital Signs 11/23/17 20:00 11/24/17 00:00 11/24/17 04:00 Temperature 99.3 F 99.3 F 98.7 F Pulse Rate 97 H 102 H 97 H Respiratory Rate 20 20 16 Blood Pressure 124/69 124/69 122/60 Pulse Oximetry 97 11/24/17 07:40 11/24/17 12:14 11/24/17 15:42 Temperature 99.5 F 98.7 F 97.4 F L Pulse Rate 78 82 70 Respiratory Rate 20 20 20 Blood Pressure 140/66 125/60 112/58 L Pulse Oximetry 99 100 98 11/24/17 16:05 Temperature Pulse Rate Respiratory Rate Blood Pressure Pulse Oximetry 98 Intake & Output 11/23/17 11/24/17 11/24/17 18:59 06:59 18:59 Intake Total 1300 / 1300 1105 / 1105 2105 / 2105 Balance 1300 / 1300 1105 / 1105 2105 / 2105 Weight 68.039 kg Intake: IV 1300 / 1300 1105 / 1105 2105 / 2105 NS Inj 1,000 ML @ 100 mls/hr IV 1200 / 1200 1000 / 1000 2000 / 2000 .CONT .Q10H [facility] Rx#:[id number] Keppra 1000 mg/100 mL Premix 100 / 100 100 ML @ 400 mls/hr IV.SIG ONCE ONE Rx#:[id number] Keppra Inj 500 MG In NS Inj 100 105 / 105 105 / 105 ML @ 400 mls/hr IV.SIG Q12H [facility] Rx#:[id number] Other: # Urine Diapers 5 2 # Incontinent Bowel Movements 2 Weight On Admission 68.039 kg - Routine Neurological Exam alert, does not follow commands CN intact MOTOR 5/5 BUE and BLE Objective Radiology Results: MRI brain--no evidence of cva, but is motion artifact CSF--no evidence of encephalitis or meningitis. Laboratory Results - last 24 hr 11/23/17 11/23/17 11/24/17 10:02 23:31 08:21 WBC 9.4 RBC 3.54 L Hgb 11.3 L D Hct 33.3 L MCV 94.0 MCH 31.8 MCHC 33.9 RDW 14.3 Plt Count 185 MPV 9.6 Neut % (Auto) 75.4 H Lymph % (Auto) 19.5 [place] % (Auto) 5.0 Eos % (Auto) 0.0 Baso % (Auto) 0.1 Neut # (Auto) 7.1 Lymph # (Auto) 1.8 [place] # (Auto) 0.5 Eos # (Auto) 0.0 Baso # (Auto) 0.0 WBC Differential . Differential Comment Auto diff final ESR Sodium Potassium Chloride Carbon Dioxide Anion Gap BUN Creatinine Estimated GFR POC Glucose 75 Random Glucose Calcium Total Bilirubin AST ALT Alkaline Phosphatase C-Reactive Protein Total Protein Albumin Urine Color Urine Clarity Urine pH Ur Specific [place] Urine Protein Urine Glucose (UA) Urine Ketones Urine Occult Blood Urine Nitrate Urine Bilirubin Urine Urobilinogen Ur Leukocyte Esterase Urine RBC Urine WBC Urine Bacteria Urine Mucus Micro UA Comment Ur Microscopic Review Urine Culture Comments CSF Volume (1) CSF Supernat Color (1) CSF Gross Blood (1) CSF Volume (2) CSF Supernat Color (2) CSF Gross Blood (2) CSF Volume (3) CSF Supernat Color (3) CSF Gross Blood (3) CSF Volume (4) CSF Supernat Color (4) CSF Gross Blood (4) CSF WBC (4) CSF RBC (4) CSF Neutrophils % CSF Lymphocytes % CSF Glucose CSF Total Protein RPR Nonreactive 11/24/17 11/24/17 11/24/17 08:21 08:21 08:21 WBC RBC Hgb Hct MCV MCH MCHC RDW Plt Count MPV Neut % (Auto) Lymph % (Auto) [place] % (Auto) Eos % (Auto) Baso % (Auto) Neut # (Auto) Lymph # (Auto) [place] # (Auto) Eos # (Auto) Baso # (Auto) WBC Differential Differential Comment ESR 24 Sodium 151 H Potassium 3.0 L D Chloride 122 H D Carbon Dioxide 13.4 L Anion Gap 16 H BUN 12 Creatinine 0.53 Estimated GFR Greater than 89 POC Glucose Random Glucose 77 Calcium 7.9 L Total Bilirubin 0.5 AST 29 ALT 15 Alkaline Phosphatase 77 C-Reactive Protein 0.63 H Total Protein 5.9 L D Albumin 3.1 L D Urine Color Urine Clarity Urine pH Ur Specific [place] Urine Protein Urine Glucose (UA) Urine Ketones Urine Occult Blood Urine Nitrate Urine Bilirubin Urine Urobilinogen Ur Leukocyte Esterase Urine RBC Urine WBC Urine Bacteria Urine Mucus Micro UA Comment Ur Microscopic Review Urine Culture Comments CSF Volume (1) CSF Supernat Color (1) CSF Gross Blood (1) CSF Volume (2) CSF Supernat Color (2) CSF Gross Blood (2) CSF Volume (3) CSF Supernat Color (3) CSF Gross Blood (3) CSF Volume (4) CSF Supernat Color (4) CSF Gross Blood (4) CSF WBC (4) CSF RBC (4) CSF Neutrophils % CSF Lymphocytes % CSF Glucose CSF Total Protein RPR 11/24/17 11/24/17 11/24/17 13:08 13:08 17:33 WBC RBC Hgb Hct MCV MCH MCHC RDW Plt Count MPV Neut % (Auto) Lymph % (Auto) [place] % (Auto) Eos % (Auto) Baso % (Auto) Neut # (Auto) Lymph # (Auto) [place] # (Auto) Eos # (Auto) Baso # (Auto) WBC Differential Differential Comment ESR Sodium Potassium Chloride Carbon Dioxide Anion Gap BUN Creatinine Estimated GFR POC Glucose Random Glucose Calcium Total Bilirubin AST ALT Alkaline Phosphatase C-Reactive Protein Total Protein Albumin Urine Color Yellow Urine Clarity Clear Urine pH 6.0 Ur Specific [place] 1.015 Urine Protein Negative Urine Glucose (UA) Negative Urine Ketones 80 or greater H Urine Occult Blood Negative Urine Nitrate Positive H Urine Bilirubin Negative Urine Urobilinogen Less than 2 Ur Leukocyte Esterase Trace H Urine RBC 1 Urine WBC 9 H Urine Bacteria Many H Urine Mucus Few H Micro UA Comment Cath-culture ind Ur Microscopic Review Not Reportable Urine Culture Comments Cath-cult indicated CSF Volume (1) 2.6 CSF Supernat Color (1) Clear CSF Gross Blood (1) 0 CSF Volume (2) 1.8 CSF Supernat Color (2) Clear CSF Gross Blood (2) 0 CSF Volume (3) 2.0 CSF Supernat Color (3) Clear CSF Gross Blood (3) 0 CSF Volume (4) 3.2 CSF Supernat Color (4) Clear CSF Gross Blood (4) 0 CSF WBC (4) 2 CSF RBC (4) 5 H CSF Neutrophils % 0 CSF Lymphocytes % 100 CSF Glucose 54 CSF Total Protein 40.5 RPR 11/24/17 17:34 WBC RBC Hgb Hct MCV MCH MCHC RDW Plt Count MPV Neut % (Auto) Lymph % (Auto) [place] % (Auto) Eos % (Auto) Baso % (Auto) Neut # (Auto) Lymph # (Auto) [place] # (Auto) Eos # (Auto) Baso # (Auto) WBC Differential Differential Comment ESR Sodium Potassium Chloride Carbon Dioxide Anion Gap BUN Creatinine Estimated GFR POC Glucose 102 Random Glucose Calcium Total Bilirubin AST ALT Alkaline Phosphatase C-Reactive Protein Total Protein Albumin Urine Color Urine Clarity Urine pH Ur Specific [place] Urine Protein Urine Glucose (UA) Urine Ketones Urine Occult Blood Urine Nitrate Urine Bilirubin Urine Urobilinogen Ur Leukocyte Esterase Urine RBC Urine WBC Urine Bacteria Urine Mucus Micro UA Comment Ur Microscopic Review Urine Culture Comments CSF Volume (1) CSF Supernat Color (1) CSF Gross Blood (1) CSF Volume (2) CSF Supernat Color (2) CSF Gross Blood (2) CSF Volume (3) CSF Supernat Color (3) CSF Gross Blood (3) CSF Volume (4) CSF Supernat Color (4) CSF Gross Blood (4) CSF WBC (4) CSF RBC (4) CSF Neutrophils % CSF Lymphocytes % CSF Glucose CSF Total Protein RPR Microbiology 11/24/17 13:08 Gram Stain - Final Lumbar Puncture Review/Management - Diagnosis (1) Altered mental status Code(s): R41.82 - Altered mental status, unspecified Status: Acute Current Visit: Yes - Review/Management Plan: encephalopathy. Start keppra because was some sharp activity on eeg although not truly epileptiform. toradol prn pain (1) Altered mental status Qualifiers: Altered mental status type: unspecified Qualified Code(s): R41.82 - Altered mental status, unspecified
[2017-11-24] MEDS: Sodium Chloride 0.9% 2 ML Flush BID IV.FLUSH SCH (19:42)
--- NOTE | 2017-11-24 21:35 | MG ---
cc: Prashant Turner MD ELECTROENCEPHALOGRAM RECORD NUMBER: [id number] DESCRIPTION: Rhythmic delta activity occurring 0.5-1 Hz in a generalized fashion. Prominent sharp waves occurring. Change in frequency and rhythmicity. Limited driving with photic stimulation. Some movement and motion artifact noted. Single-lead EKG showing sinus rhythm. 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 RN notified. Clinical correlation. MD DWAIN Dixon/michael , 09:19 PM , 09:23 PM
[2017-11-24 21:57] LABS: Anion Gap 14 meq/L (5-15); Blood Urea Nitrogen 12 mg/dL (7-18); Calcium 7.9 mg/dL (8.5-10.1); Carbon Dioxide 16.2 meq/L (21.0-32.0); Chloride 120 meq/L (98-107); Glomerular Filtration Rate Greater Than 89 mL/min (>89); Glucose,Random 92 mg/dL (74-106); Magnesium 1.8 mg/dL (1.5-2.5); Sodium 150 meq/L (136-145)
[2017-11-25] MEDS: Sodium Chloride 0.9% 2 ML Flush BID IV.FLUSH SCH ×3 (00:48→22:33)
[2017-11-25] MEDS: Senna/Docusate Sodium 8.6/50 MG Tablet PO SCH ×3 (00:48→22:33)
[2017-11-25] MEDS: Lactobacillus Acidophilus/L. Spores Tablet PO SCH ×3 (00:48→22:32)
[2017-11-25] MEDS: KCL 20 mEq/Dextrose 5% Inj 1,000 ML IV.CONT SCH (04:39)
[2017-11-25 06:02] LABS: Baso % (Auto) 0.2 % (0.0-2.0); Eos % (Auto) 0.1 % (0.0-4.0); Hematocrit 30.8 % (35.0-46.0); Hemoglobin 10.7 gm/dL (11.6-15.3); Lymph # (Auto) 2.5 th/mm3 (1.0-4.8); Mean Corpuscular HGB Conc 34.6 % (32.0-36.0); Mean Corpuscular Hemoglobin 32.3 pg (27.0-34.0); Mean Corpuscular Volume 93.4 fL (80.0-100.0); Mono # (Auto) 0.8 th/mm3 (0.0-0.9); Mono % (Auto) 8.6 % (0.0-8.0); Neut # (Auto) 5.9 th/mm3 (1.8-7.7); Neut % (Auto) 64.1 % (16.0-70.0); Platelet Count 182 th/mm3 (150-450); White Blood Count 9.2 th/mm3 (4.0-11.0)
[2017-11-25 06:20] LABS: Albumin 3.1 g/dL (3.4-5.0); Calcium 7.3 mg/dL (8.5-10.1); Carbon Dioxide 18.4 meq/L (21.0-32.0); Magnesium 1.8 mg/dL (1.5-2.5); Potassium 3.1 meq/L (3.5-5.1)
[2017-11-25] MEDS ORDERED: Mag Sulf 1 gm/100 ml Premix 100 ML IV.SIG ONE (08:00)
[2017-11-25] MEDS ORDERED: Ketorolac Inj 30 MG/ML (IVP) Vial IV.PUSH ONE (08:00)
[2017-11-25] MEDS: Lidocaine 5% Patch T-DERMAL SCH (11:19)
[2017-11-25] MEDS: Potassium Chlor 20 mEq Premix 20 MEQ/100 ML PIGGYBACK IV.SIG SCH ×2 (11:23→13:26)
[2017-11-25] MEDS: Dextrose 5% in Water Inj 1,000 ML IV.CONT SCH ×2 (11:25→18:32)
--- NOTE | 2017-11-25 11:28 | P.PN ---
Subjective Interval history: Follow-up for encephalopathy. The patient was seen with her at bedside. She reports the patient is more awake and alert today, intermittently answering simple questions. Discussed with speech therapy and RN, patient intermittently following some commands, did tell speech therapist her name and answer a few simple questions. Upon entering the room today, the patient only moans and makes eye contact but does not answer any questions or following commands today. She continues to have rhythmic movements and occasional twitching of her extremities. Discussed with application support technician, yesterday's EEG appeared worse than the previous day, concern for status epilepticus. Discussed with Dr. Simon and Dr. Nair, recommended starting on IV Depakote. Also initiated IV Rocephin for possible UTI, and IV acyclovir to cover for HSV. Physical Exam Vital signs: Vital Signs 11/24/17 12:14 11/24/17 15:42 11/24/17 16:05 Temperature 98.7 F 97.4 F L Pulse Rate 82 70 Respiratory Rate 20 20 Blood Pressure 125/60 112/58 L Pulse Oximetry 100 98 98 11/24/17 20:48 11/25/17 09:27 Temperature 99.3 F Pulse Rate 78 94 H Respiratory Rate 16 16 Blood Pressure 120/63 142/67 H Pulse Oximetry 97 96 Intake & Output 11/24/17 11/25/17 11/25/17 18:59 06:59 18:59 Intake Total 2105 / 2105 1105 / 1105 Balance 2105 / 2105 1105 / 1105 Intake: IV 2105 / 2105 1105 / 1105 D5W + KCL 20 mEq Inj 1,000 ML @ 1000 / 1000 84 mls/hr IV.CONT .[id number] [facility] Rx#:[id number] NS Inj 1,000 ML @ 100 mls/hr IV 1999 / 1999 .CONT .Q10H [facility] Rx#:[id number] Keppra Inj 500 MG In NS Inj 100 105 / 105 105 / 105 ML @ 400 mls/hr IV.SIG Q12H [facility] Rx#:[id number] Other: Date of Last Bowel Movement 11/24/17 Narrative: GENERAL: Well-nourished, well-developed middle-aged female patient in NAD. Awake, opens eyes and occasionally makes eye contact. SKIN: Warm and dry. No rash. HEENT: Normocephalic. Atraumatic. Pupils equal and round. Mucous membranes pink and moist. NECK: Supple. Trachea midline. Nontender. Touching chin to chest during exam. CARDIOVASCULAR: Regular rate and rhythm. No murmur appreciated. RESPIRATORY: No accessory muscle use. Clear to auscultation. Breath sounds equal bilaterally. GASTROINTESTINAL: Abdomen soft, non-tender, nondistended. Normoactive bowel sounds x4. MUSCULOSKELETAL: No obvious deformities. Extremities without clubbing, cyanosis , or edema. NEUROLOGICAL: Awake and alert. Moving all extremities spontaneously, although did not follow strength testing commands today. Does not verbalize any words, but does shake her head no and moans throughout exam. PSYCHIATRIC: Unable to assess due to altered mental status. Results - Labs CBC & Chem 7: 11/25/17 04:50 11/25/17 04:50 Laboratory Results - last 24 hr 11/24/17 11/24/17 11/24/17 08:21 08:21 13:08 WBC RBC Hgb Hct MCV MCH MCHC RDW Plt Count MPV Neut % (Auto) Lymph % (Auto) [place] % (Auto) Eos % (Auto) Baso % (Auto) Neut # (Auto) Lymph # (Auto) [place] # (Auto) Eos # (Auto) Baso # (Auto) WBC Differential Differential Comment ESR 24 Sodium Potassium Chloride Carbon Dioxide Anion Gap BUN Creatinine Estimated GFR POC Glucose Random Glucose Calcium Prot Corrected Calcium Magnesium Total Bilirubin AST ALT Alkaline Phosphatase C-Reactive Protein 0.63 H Total Protein Albumin Urine Color Urine Clarity Urine pH Ur Specific [place] Urine Protein Urine Glucose (UA) Urine Ketones Urine Occult Blood Urine Nitrate Urine Bilirubin Urine Urobilinogen Ur Leukocyte Esterase Urine RBC Urine WBC Urine Bacteria Urine Mucus Micro UA Comment Ur Microscopic Review Urine Culture Comments CSF Volume (1) 2.6 CSF Supernat Color (1) Clear CSF Gross Blood (1) 0 CSF Volume (2) 1.8 CSF Supernat Color (2) Clear CSF Gross Blood (2) 0 CSF Volume (3) 2.0 CSF Supernat Color (3) Clear CSF Gross Blood (3) 0 CSF Volume (4) 3.2 CSF Supernat Color (4) Clear CSF Gross Blood (4) 0 CSF WBC (4) 2 CSF RBC (4) 5 H CSF Neutrophils % 0 CSF Lymphocytes % 100 CSF Glucose CSF Total Protein 10/02/18 10/02/18 10/02/18 13:08 17:33 17:34 WBC RBC Hgb Hct MCV MCH MCHC RDW Plt Count MPV Neut % (Auto) Lymph % (Auto) [place] % (Auto) Eos % (Auto) Baso % (Auto) Neut # (Auto) Lymph # (Auto) [place] # (Auto) Eos # (Auto) Baso # (Auto) WBC Differential Differential Comment ESR Sodium Potassium Chloride Carbon Dioxide Anion Gap BUN Creatinine Estimated GFR POC Glucose 102 Random Glucose Calcium Prot Corrected Calcium Magnesium Total Bilirubin AST ALT Alkaline Phosphatase C-Reactive Protein Total Protein Albumin Urine Color Yellow Urine Clarity Clear Urine pH 6.0 Ur Specific [place] 1.015 Urine Protein Negative Urine Glucose (UA) Negative Urine Ketones 80 or greater H Urine Occult Blood Negative Urine Nitrate Positive H Urine Bilirubin Negative Urine Urobilinogen Less than 2 Ur Leukocyte Esterase Trace H Urine RBC 1 Urine WBC 9 H Urine Bacteria Many H Urine Mucus Few H Micro UA Comment Cath-culture ind Ur Microscopic Review Not Reportable Urine Culture Comments Cath-cult indicated CSF Volume (1) CSF Supernat Color (1) CSF Gross Blood (1) CSF Volume (2) CSF Supernat Color (2) CSF Gross Blood (2) CSF Volume (3) CSF Supernat Color (3) CSF Gross Blood (3) CSF Volume (4) CSF Supernat Color (4) CSF Gross Blood (4) CSF WBC (4) CSF RBC (4) CSF Neutrophils % CSF Lymphocytes % CSF Glucose 54 CSF Total Protein 40.5 11/24/17 11/24/17 11/25/17 21:05 22:26 04:50 WBC 9.2 RBC 3.30 L Hgb 10.7 L Hct 30.8 L MCV 93.4 MCH 32.3 MCHC 34.6 RDW 14.0 Plt Count 182 MPV 10.0 Neut % (Auto) 64.1 Lymph % (Auto) 27.0 [place] % (Auto) 8.6 H Eos % (Auto) 0.1 Baso % (Auto) 0.2 Neut # (Auto) 5.9 Lymph # (Auto) 2.5 [place] # (Auto) 0.8 Eos # (Auto) 0.0 Baso # (Auto) 0.0 WBC Differential . Differential Comment Auto diff final ESR Sodium 150 H Potassium 3.0 L Chloride 120 H Carbon Dioxide 16.2 L Anion Gap 14 BUN 12 Creatinine 0.61 Estimated GFR Greater than 89 POC Glucose 117 H Random Glucose 92 Calcium 7.9 L Prot Corrected Calcium Magnesium 1.8 Total Bilirubin AST ALT Alkaline Phosphatase C-Reactive Protein Total Protein Albumin Urine Color Urine Clarity Urine pH Ur Specific [place] Urine Protein Urine Glucose (UA) Urine Ketones Urine Occult Blood Urine Nitrate Urine Bilirubin Urine Urobilinogen Ur Leukocyte Esterase Urine RBC Urine WBC Urine Bacteria Urine Mucus Micro UA Comment Ur Microscopic Review Urine Culture Comments CSF Volume (1) CSF Supernat Color (1) CSF Gross Blood (1) CSF Volume (2) CSF Supernat Color (2) CSF Gross Blood (2) CSF Volume (3) CSF Supernat Color (3) CSF Gross Blood (3) CSF Volume (4) CSF Supernat Color (4) CSF Gross Blood (4) CSF WBC (4) CSF RBC (4) CSF Neutrophils % CSF Lymphocytes % CSF Glucose CSF Total Protein 11/25/17 11/25/17 04:50 10:13 WBC RBC Hgb Hct MCV MCH MCHC RDW Plt Count MPV Neut % (Auto) Lymph % (Auto) [place] % (Auto) Eos % (Auto) Baso % (Auto) Neut # (Auto) Lymph # (Auto) [place] # (Auto) Eos # (Auto) Baso # (Auto) WBC Differential Differential Comment ESR Sodium 151 H Potassium 3.1 L Chloride 119 H Carbon Dioxide 18.4 L Anion Gap 14 BUN 16 Creatinine 0.69 Estimated GFR 86 L POC Glucose 117 H Random Glucose 102 Calcium 7.3 L* Prot Corrected Calcium 7.9 L Magnesium 1.8 Total Bilirubin 0.6 AST 46 H ALT 32 Alkaline Phosphatase 78 C-Reactive Protein Total Protein 6.0 L Albumin 3.1 L Urine Color Urine Clarity Urine pH Ur Specific [place] Urine Protein Urine Glucose (UA) Urine Ketones Urine Occult Blood Urine Nitrate Urine Bilirubin Urine Urobilinogen Ur Leukocyte Esterase Urine RBC Urine WBC Urine Bacteria Urine Mucus Micro UA Comment Ur Microscopic Review Urine Culture Comments CSF Volume (1) CSF Supernat Color (1) CSF Gross Blood (1) CSF Volume (2) CSF Supernat Color (2) CSF Gross Blood (2) CSF Volume (3) CSF Supernat Color (3) CSF Gross Blood (3) CSF Volume (4) CSF Supernat Color (4) CSF Gross Blood (4) CSF WBC (4) CSF RBC (4) CSF Neutrophils % CSF Lymphocytes % CSF Glucose CSF Total Protein Microbiology 11/24/17 21:00 Blood - Peripheral Aerobic Blood Culture - Preliminary No growth in 1 day 11/24/17 21:00 Blood - Peripheral Anaerobic Blood Culture - Preliminary No growth in 1 day 11/24/17 21:05 Blood - Peripheral Aerobic Blood Culture - Preliminary No growth in 1 day 11/24/17 21:05 Blood - Peripheral Anaerobic Blood Culture - Preliminary No growth in 1 day 11/24/17 13:08 Lumbar Puncture Gram Stain - Final 11/24/17 13:08 Lumbar Puncture CSF Culture - Preliminary No growth in 24 hours - Imaging Impressions Chest X-Ray 11/23/17 02:03 CONCLUSION: 1. No acute cardiopulmonary disease. Head CT 11/23/17 02:03 CONCLUSION: 1. No acute intracranial abnormality. . Head MRI 11/24/17 00:00 CONCLUSION: 1. Suboptimal examination secondary to motion artifact. 2. No acute hemorrhage or mass effect identified. Lumbar Puncture Fluoroscopy 11/24/17 00:00 CONCLUSION: 1. Uncomplicated fluoroscopically guided lumbar puncture. Assessment and Plan - Plan 61-year-old female with a past medical history significant for hypertension, dyslipidemia, chronic back pain status post multiple lumbar surgeries on morphine, Percocet, Lyrica and Tizanidine who presents to [facility] ED with altered mental status/acute encephalopathy. Patient is unable to provide any history and therefore history is obtained from discussion with the who is at the bedside as well as review of electronic medical record. Acute encephalopathy/altered mental status: acute, unclear etiology, possibly due to combination of polypharmacy and poor oral intake/dehydration. Rule out infection/stroke. No hx of psychiatric illness although psychiatric component may be contributing, exam waxes/wanes. -CT head reviewed and neg for any acute intracranial abnormality -UDS + opiates. Patient on morphine, Percocet, Lyrica and Tizanidine at home - holding all sedating medications -Ammonia level 10, CBC wnl, afebrile, CXR neg, images reviewed by me -Initial UA not indicative of UTI, however repeat UA with +nitrates, initiated IV Rocephin, await urine culture -Blood cultures with no growth to date -neuro checks, fall/seizure precautions, continuous cardiac monitoring -PT/OT/ST with swallow evaluation, currently NPO -EEG abnormal consistent with encephalopathy -RPR nonreactive, vit B12 321 -avoid all sedating medications, holding home Morphine, Percocet, Lyrica and Tizanidine -Supportive treatment with IVF - changed to D5 NS with KCl (Na 151 and K 3.0) -Consulted neurology with abnormal EEG, ordered LP and MRI -S/p LP 11/24 - CSF studies unremarkable so far, cultures pending -Started on empiric IV Acyclovir, HSV pending -Brain MRI 11/24 suboptimal exam secondary to motion artifact otherwise no acute findings -ESR 24/CRP 0.63 - not significantly elevated to be concerned for arteritis -Repeat EEG 11/24 concerned for status epilepticus, patient already on Keppra and now with worsening EEG, discussed with Dr. Nair, recommends with initiating IV Depakote -Dr. Nair recommending repeat EEG on 11/26 Elevated troponin, mild: patient denying any chest pain to providers and denies any reported chest pain from the patient. Suspect demand ischemia from tachycardia -EKG with sinus tach, no evidence of ischemia -troponins flat 0.08, 0.13, 0.11 -continuous cardiac monitoring Diarrhea: reports 3 watery incontinent BMs, continues to have diarrhea throughout admission -stool negative for C diff -enteric stool studies pending -give IVF hydration -start lactinex although patient not yet tolerating oral intake -avoid stool softeners -monitor BMs UTI: Repeat UA 11/24 with +nitrates -Started on IV Rocephin 1g daily -Preliminary urine culture with gram negative rods, continue to monitor Low TSH, 0.114 -Free T4 wnl -Outpatient f/up with PCP and repeat TSH/T4 Hypernatremia/Hypokalemia: Na 151 and K 3.0. Suspect iatrogenic from IVF in combination with poor oral intake -change IVF from NS to D5W @ 84cc/hr with KCl replacement -Repeat BMP this afternoon and in am DVT prophylaxis -Heparin sq Discussed Condition With: Patient, Patient's , RN, wild oyster harvester, Speech Therapy, Physical Therapy, Dr. Simon, Dr. Nair, Case Management Discharge Planning: Discharge pending further clinical improvement. Patient still with encephalopathy/AMS. Plan for repeat EEG on 11/26. Not yet ready for discharge. I spent 35 minutes [id number] with the patient or on the fitch discussing the patient's disposition, prognosis, and plan of care with her caregivers. Over half the time spent was devoted to counseling the patient regarding placement in coordinating care with caregivers and case management
[2017-11-25] MEDS ORDERED: FOSPHENYTOIN IV.SIG ONE (12:58)
[2017-11-25] MEDS ORDERED: SODIUM CHLOR IV.SIG ONE (12:58)
[2017-11-25] MEDS: ACYCLOVIR IV.SIG SCH ×2 (13:53→18:09)
[2017-11-25] MEDS: SODIUM CHLOR 0.9% IV.SIG SCH ×2 (13:53→18:09)
[2017-11-25] MEDS ORDERED: SODIUM CHLOR 0.9% IV.SIG ONE (15:00)
[2017-11-25] MEDS ORDERED: VALPROATE IV.SIG ONE (15:00)
[2017-11-25] MEDS ORDERED: Ketorolac Inj 30 MG/ML (IVP) Vial IV.PUSH PRN (16:27)
[2017-11-25 17:42] LABS: Anion Gap 8 meq/L (5-15); Blood Urea Nitrogen 16 mg/dL (7-18); Calcium 7.3 mg/dL (8.5-10.1); Carbon Dioxide 20.1 meq/L (21.0-32.0); Chloride 117 meq/L (98-107); Glomerular Filtration Rate Greater Than 89 mL/min (>89); Glucose,Random 99 mg/dL (74-106); Potassium 3.3 meq/L (3.5-5.1); Sodium 145 meq/L (136-145)
[2017-11-25] MEDS ORDERED: Potassium Chlor 20 mEq Premix 20 MEQ/100 ML PIGGYBACK IV.SIG ONE (17:55)
[2017-11-25 18:00] LABS: Total Protein 5.8 g/dL (6.4-8.2)
--- NOTE | 2017-11-25 20:34 | P.PNNEU ---
Subjective Subjective Comments: pt now on depakote. She has been more alert, talking with today, more appropriate Active Medications: Active Medications Al Hydroxide/Mg Hydroxide (Milk Of Magnesia Liq) 30 ml PO Q12H PRN PRN Reason: Mild Constipation Bisacodyl (Dulcolax Supp) 10 mg RECTAL DAILY PRN PRN Reason: SEVERE CONSITIPATION Cyanocobalamin (Vitamin B12 Inj) 1,000 mcg IM Q7D [facility] Stop: 12/15/17 16:01 Last Admin: 11/24/17 16:14 Dose: 1,000 mcg Dextrose (D50w Vial) 50 ml IV.PUSH UNSCH PRN PRN Reason: PER HYPOGLYCEMIA PROTOCOL Glucagon (Glucagon Inj) 1 mg OTHER UNSCH PRN PRN Reason: for Hypoglycemia Protocol Heparin Sodium (Porcine) (Heparin Inj) 5,000 units SQ Q12HR [facility] Dextrose (D5w Inj) 1,000 mls @ 100 mls/hr IV.CONT .Q10H [facility] Last Admin: 11/25/17 18:32 Dose: Not Given Ceftriaxone Sodium 1,000 mg/ (Sodium Chloride) 100 mls @ 200 mls/hr IV.SIG Q24H [facility] Last Infusion: 11/25/17 14:03 Dose: Infused Acyclovir Sodium 680 mg/ (Sodium Chloride) 113.6 mls @ 113.6 mls/hr IV.SIG Q8H [facility] Last Infusion: 11/25/17 19:10 Dose: Infused Valproate Sodium 500 mg/ (Sodium Chloride) 105 mls @ 105 mls/hr IV.SIG Q6H [facility] Acetaminophen (Ofirmev Inj) 1,000 mg in 100 mls @ 400 mls/hr IV.SIG Q6H PRN PRN Reason: PAIN SCALE 1 TO 5 Ketorolac Tromethamine (Toradol Inj) 15 mg IV.PUSH Q6H PRN PRN Reason: PAIN SCALE 6 TO 10 Stop: 11/28/17 16:26 Lactobacillus Acidophilus (Lactinex) 1 tab PO BID [facility] Last Admin: 11/25/17 08:48 Dose: Not Given Lactulose (Lactulose Liq) 30 ml PO DAILY PRN PRN Reason: SEVERE CONSITIPATION Lidocaine HCl (Lidoderm 5% Patch.12 Hr) 1 patch T-DERMAL DAILY [facility] Last Admin: 11/25/17 11:19 Dose: 1 patch Lorazepam (Ativan Inj) 2 mg IV.PUSH Q5M PRN PRN Reason: SEIZURES Ondansetron HCl (Zofran Inj) 4 mg IV.PUSH Q6H PRN PRN Reason: NAUSEA OR VOMITING Patch Removal (Remove Old Patch) 1 each T-DERMAL HS [facility] Pravastatin Sodium (Pravachol) 40 mg PO DAILY [facility] Last Admin: 11/25/17 11:41 Dose: Not Given Senna/Docusate Sodium (Kaylyn-Colace) 1 tab PO BID [facility] Last Admin: 11/25/17 08:49 Dose: Not Given Sennosides (Senokot) 17.2 mg PO Q12H PRN PRN Reason: Moderate Constipation Sodium Chloride (Ns Flush) 2 ml IV.FLUSH BID [facility] Last Admin: 11/25/17 11:26 Dose: 2 ml Sodium Chloride (Ns Flush) 2 ml IV.FLUSH PRN PRN PRN Reason: FLUSH AFTER USING IV ACCESS Allergies/Adverse Reactions: Allergies Allergy/AdvReac Type Severity Reaction Status Date / Time No Known Allergies Allergy Unverified 11/23/17 02:03 Physical Exam Vital signs: Vital Signs 11/24/17 20:48 11/25/17 07:05 11/25/17 09:27 Temperature 99.3 F Pulse Rate 78 74 94 H Respiratory Rate 16 16 Blood Pressure 120/63 142/67 H Pulse Oximetry 97 96 11/25/17 13:52 11/25/17 14:01 11/25/17 18:25 Temperature 98.7 F Pulse Rate 80 56 L Respiratory Rate 16 Blood Pressure 183/81 H 130/63 Pulse Oximetry 96 Intake & Output 11/25/17 11/25/17 11/26/17 06:59 18:59 06:59 Intake Total 1105 / 1105 1914 113.6 / 113.6 Balance 1105 / 1105 1914 113.6 / 113.6 Intake: IV 1105 / 1105 1914 113.6 / 113.6 D5W Inj 1,000 ML @ 100 mls/hr 1000 / 1000 IV.CONT .Q10H [facility] Rx#:[id number] D5W + KCL 20 mEq Inj 1,000 ML @ 1000 / 1000 300 / 300 84 mls/hr IV.CONT .[id number] [facility] Rx#:[id number] Ofirmev Inj 1,000 mg In 100 ml 100 / 100 @ 400 mls/hr IV.SIG ONCE ONE Rx #:[id number] Zovirax Inj 680 MG In NS Inj 113.6 / 113.6 100 ML @ 113.6 mls/hr IV.SIG Q8H [facility] Rx#:[id number] Magnesium Sulfate 1 gm/D5W 100 100 / 100 ml Premix 100 ML @ 100 mls/hr IV.SIG ONCE ONE Rx#:[id number] KCl 20 mEq Premix Inj 20 meq In 200 / 200 100 ml @ 50 mls/hr IV.SIG Q2H [facility] Rx#:[id number] Depacon Inj 1,500 MG In NS Inj 115 / 115 100 ML @ 105 mls/hr IV.SIG ONCE [facility] Rx#:[id number] Rocephin Inj 1,000 MG In NS Inj 100 / 100 100 ML @ 200 mls/hr IV.SIG Q24H [facility] Rx#:[id number] Keppra Inj 500 MG In NS Inj 100 105 / 105 ML @ 400 mls/hr IV.SIG Q12H [facility] Rx#:[id number] Other: Date of Last Bowel Movement 11/24/17 - Routine Neurological Exam lethargic CN intact MOTOR --no tonic clonic activity Objective Laboratory Results - last 24 hr 11/24/17 11/24/17 11/24/17 17:33 21:05 22:26 WBC RBC Hgb Hct MCV MCH MCHC RDW Plt Count MPV Neut % (Auto) Lymph % (Auto) [place] % (Auto) Eos % (Auto) Baso % (Auto) Neut # (Auto) Lymph # (Auto) [place] # (Auto) Eos # (Auto) Baso # (Auto) WBC Differential Differential Comment Sodium 150 H Potassium 3.0 L Chloride 120 H Carbon Dioxide 16.2 L Anion Gap 14 BUN 12 Creatinine 0.61 Estimated GFR Greater than 89 POC Glucose 117 H Random Glucose 92 Calcium 7.9 L Prot Corrected Calcium Magnesium 1.8 Total Bilirubin AST ALT Alkaline Phosphatase Total Protein Albumin Urine Color Yellow Urine Clarity Clear Urine pH 6.0 Ur Specific [place] 1.015 Urine Protein Negative Urine Glucose (UA) Negative Urine Ketones 80 or greater H Urine Occult Blood Negative Urine Nitrate Positive H Urine Bilirubin Negative Urine Urobilinogen Less than 2 Ur Leukocyte Esterase Trace H Urine RBC 1 Urine WBC 9 H Urine Bacteria Many H Urine Mucus Few H Micro UA Comment Cath-culture ind Urine Culture Comments Cath-cult indicated 11/25/17 11/25/17 11/25/17 04:50 04:50 10:13 WBC 9.2 RBC 3.30 L Hgb 10.7 L Hct 30.8 L MCV 93.4 MCH 32.3 MCHC 34.6 RDW 14.0 Plt Count 182 MPV 10.0 Neut % (Auto) 64.1 Lymph % (Auto) 27.0 [place] % (Auto) 8.6 H Eos % (Auto) 0.1 Baso % (Auto) 0.2 Neut # (Auto) 5.9 Lymph # (Auto) 2.5 [place] # (Auto) 0.8 Eos # (Auto) 0.0 Baso # (Auto) 0.0 WBC Differential . Differential Comment Auto diff final Sodium 151 H Potassium 3.1 L Chloride 119 H Carbon Dioxide 18.4 L Anion Gap 14 BUN 16 Creatinine 0.69 Estimated GFR 86 L POC Glucose 117 H Random Glucose 102 Calcium 7.3 L* Prot Corrected Calcium 7.9 L Magnesium 1.8 Total Bilirubin 0.6 AST 46 H ALT 32 Alkaline Phosphatase 78 Total Protein 6.0 L Albumin 3.1 L Urine Color Urine Clarity Urine pH Ur Specific [place] Urine Protein Urine Glucose (UA) Urine Ketones Urine Occult Blood Urine Nitrate Urine Bilirubin Urine Urobilinogen Ur Leukocyte Esterase Urine RBC Urine WBC Urine Bacteria Urine Mucus Micro UA Comment Urine Culture Comments 11/25/17 11/25/17 16:19 16:37 WBC RBC Hgb Hct MCV MCH MCHC RDW Plt Count MPV Neut % (Auto) Lymph % (Auto) [place] % (Auto) Eos % (Auto) Baso % (Auto) Neut # (Auto) Lymph # (Auto) [place] # (Auto) Eos # (Auto) Baso # (Auto) WBC Differential Differential Comment Sodium 145 Potassium 3.3 L Chloride 117 H Carbon Dioxide 20.1 L Anion Gap 8 BUN 16 Creatinine 0.62 Estimated GFR Greater than 89 POC Glucose 99 Random Glucose 99 Calcium 7.3 L* Prot Corrected Calcium 8.0 L Magnesium Total Bilirubin AST ALT Alkaline Phosphatase Total Protein 5.8 L Albumin Urine Color Urine Clarity Urine pH Ur Specific [place] Urine Protein Urine Glucose (UA) Urine Ketones Urine Occult Blood Urine Nitrate Urine Bilirubin Urine Urobilinogen Ur Leukocyte Esterase Urine RBC Urine WBC Urine Bacteria Urine Mucus Micro UA Comment Urine Culture Comments Microbiology 11/23/17 14:45 Stool for WBCs - Final Stool Rare WBC's 11/24/17 17:33 Urine Culture - Preliminary Catheterized Urine gram negative rods 11/24/17 21:00 Aerobic Blood Culture - Preliminary Blood - Peripheral No growth in 1 day Anaerobic Blood Culture - Preliminary No growth in 1 day 11/24/17 21:05 Aerobic Blood Culture - Preliminary Blood - Peripheral No growth in 1 day Anaerobic Blood Culture - Preliminary No growth in 1 day 11/24/17 13:08 Gram Stain - Final Lumbar Puncture CSF Culture - Preliminary No growth in 24 hours Review/Management - Diagnosis (1) Altered mental status Code(s): R41.82 - Altered mental status, unspecified Status: Acute Current Visit: Yes - Review/Management Plan: subclinical sz on repeat eeg. I agree with depakote and will check level. repeat eeg tomorrow agree with acyclovir pending csf HSV pcr (1) Altered mental status Qualifiers: Altered mental status type: unspecified Qualified Code(s): R41.82 - Altered mental status, unspecified
[2017-11-25] MEDS ORDERED: Fosphenytoin Inj 100 MGPE in Sodium Chlor 0.9% Inj 50 ML IV.SIG SCH (22:00)
[2017-11-25] MEDS: Valproate Inj 500 MG in Sodium Chlor 0.9% Inj 100 ML IV.SIG SCH (22:32)
[2017-11-25] MEDS: Heparin - SQ 10,000 UNITS/ML Vial SQ SCH (22:32)
[2017-11-26] MEDS: SODIUM CHLOR 0.9% IV.SIG SCH ×3 (02:00→17:14)
[2017-11-26] MEDS: ACYCLOVIR IV.SIG SCH ×3 (02:00→17:14)
[2017-11-26] MEDS: Valproate Inj 500 MG in Sodium Chlor 0.9% Inj 100 ML IV.SIG SCH ×4 (03:00→22:53)
[2017-11-26] MEDS: Dextrose 5% in Water Inj 1,000 ML IV.CONT SCH ×3 (04:40→17:13)
[2017-11-26] MEDS: Heparin - SQ 10,000 UNITS/ML Vial SQ SCH ×2 (08:06→20:33)
[2017-11-26] MEDS: Sodium Chloride 0.9% 2 ML Flush BID IV.FLUSH SCH ×2 (08:07→20:34)
[2017-11-26] MEDS: Lactobacillus Acidophilus/L. Spores Tablet PO SCH ×2 (08:07→22:12)
[2017-11-26] MEDS: Lidocaine 5% Patch T-DERMAL SCH (08:07)
[2017-11-26] MEDS: Senna/Docusate Sodium 8.6/50 MG Tablet PO SCH ×2 (08:08→22:12)
[2017-11-26 08:46] LABS: Baso % (Auto) 0.3 % (0.0-2.0); Eos % (Auto) 0.3 % (0.0-4.0); Lymph # (Auto) 2.5 th/mm3 (1.0-4.8); Lymph % (Auto) 20.3 % (9.0-44.0); Mean Corpuscular HGB Conc 34.3 % (32.0-36.0); Mean Corpuscular Hemoglobin 31.8 pg (27.0-34.0); Mean Corpuscular Volume 92.7 fL (80.0-100.0); Mean Platelet Volume 10.1 fL (7.0-11.0); Mono # (Auto) 0.8 th/mm3 (0.0-0.9); Mono % (Auto) 6.8 % (0.0-8.0); Neut # (Auto) 8.8 th/mm3 (1.8-7.7); Neut % (Auto) 72.3 % (16.0-70.0); Platelet Count 196 th/mm3 (150-450); Red Blood Count 3.77 mil/mm3 (4.00-5.30); Red Cell Distribution Width 13.9 % (11.6-17.2); White Blood Count 12.1 th/mm3 (4.0-11.0)
[2017-11-26 09:07] LABS: Anion Gap 12 meq/L (5-15); Blood Urea Nitrogen 12 mg/dL (7-18); Calcium 7.1 mg/dL (8.5-10.1); Carbon Dioxide 19.1 meq/L (21.0-32.0); Chloride 116 meq/L (98-107); Glomerular Filtration Rate Greater Than 89 mL/min (>89); Glucose,Random 112 mg/dL (74-106); Sodium 147 meq/L (136-145)
[2017-11-26 09:22] LABS: Total Protein 5.3 g/dL (6.4-8.2)
[2017-11-26 09:28] LABS: Potassium 2.9 meq/L (3.5-5.1)
[2017-11-26] MEDS: Potassium Chlor 10 mEq Premix 10 MEQ/100 ML PIGGYBACK IV.SIG SCH ×6 (12:36→22:54)
[2017-11-26 12:46] LABS: Anion Gap 12 meq/L (5-15); Blood Urea Nitrogen 10 mg/dL (7-18); Calcium 7.1 mg/dL (8.5-10.1); Carbon Dioxide 19.3 meq/L (21.0-32.0); Chloride 115 meq/L (98-107); Glomerular Filtration Rate Greater Than 89 mL/min (>89); Glucose,Random 106 mg/dL (74-106); Sodium 146 meq/L (136-145)
[2017-11-26 12:58] LABS: Total Protein 5.6 g/dL (6.4-8.2)
[2017-11-26 13:02] LABS: Potassium 2.9 meq/L (3.5-5.1)
--- NOTE | 2017-11-26 19:07 | P.PNIM ---
Subjective Interval history: Says she is feeling better than yesterday. Denies any chest pain shortness of breath. at bedside. Says patient is much more alert than yesterday. Physical Exam Vital signs: Vital Signs 11/25/17 20:00 11/26/17 00:10 11/26/17 01:43 Temperature 98.1 F 98.0 F Pulse Rate 61 73 86 Respiratory Rate 18 18 Blood Pressure 142/72 H 141/82 H Pulse Oximetry 99 98 11/26/17 04:00 11/26/17 08:00 11/26/17 12:00 Temperature 98.5 F 98.6 F Pulse Rate 79 74 85 Respiratory Rate 16 20 Blood Pressure 153/79 H 144/82 H Pulse Oximetry 100 97 11/26/17 16:00 11/26/17 17:46 Temperature 98.7 F Pulse Rate 90 Respiratory Rate 20 Blood Pressure 141/85 H Pulse Oximetry 97 97 Intake & Output 11/26/17 11/26/17 11/27/17 06:59 18:59 06:59 Intake Total 537.2 / 537.2 2823.6 / 2823.6 Balance 537.2 / 537.2 2823.6 / 2823.6 Intake: IV 537.2 / 537.2 2823.6 / 2823.6 D5W Inj 1,000 ML @ 100 mls/hr 1999 IV.CONT .Q10H [facility] Rx#:[id number] Zovirax Inj 680 MG In NS Inj 227.2 / 227.2 113.6 / 113.6 100 ML @ 113.6 mls/hr IV.SIG Q8H [facility] Rx#:[id number] KCl 10 mEq Premix Inj 10 meq In 400 / 400 100 ml @ 100 mls/hr IV.SIG Q1H [facility] Rx#:[id number] KCl 20 mEq Premix Inj 20 meq In 100 / 100 100 ml @ 50 mls/hr IV.SIG ONCE ONE Rx#:[id number] Depacon Inj 500 MG In NS Inj 210 / 210 210 / 210 100 ML @ 105 mls/hr IV.SIG Q6H [facility] Rx#:[id number] Rocephin Inj 1,000 MG In NS Inj 100 / 100 100 ML @ 200 mls/hr IV.SIG Q24H [facility] Rx#:[id number] Other: # Voids 3 Date of Last Bowel Movement 11/26/17 11/26/17 # Bowel Movements 1 Narrative: GENERAL: Patient lying in bed. Talking. Alert. SKIN: Warm and dry. HEAD: Normocephalic. EYES: No scleral icterus. No injection or drainage. NECK: Supple, trachea midline. No JVD. CARDIOVASCULAR: Regular rate and rhythm without murmurs, gallops, or rubs. RESPIRATORY: Breath sounds equal bilaterally. No accessory muscle use. GASTROINTESTINAL: Abdomen soft, non-tender, nondistended. MUSCULOSKELETAL: No cyanosis, or edema. BACK: Nontender without obvious deformity. No CVA tenderness. Results - Labs CBC & Chem 7: 11/26/17 08:09 11/26/17 12:05 Laboratory Results - last 24 hr 11/24/17 11/25/17 11/26/17 13:08 23:24 07:41 WBC RBC Hgb Hct MCV MCH MCHC RDW Plt Count MPV Neut % (Auto) Lymph % (Auto) [place] % (Auto) Eos % (Auto) Baso % (Auto) Neut # (Auto) Lymph # (Auto) [place] # (Auto) Eos # (Auto) Baso # (Auto) WBC Differential Differential Comment Sodium Potassium Chloride Carbon Dioxide Anion Gap BUN Creatinine Estimated GFR POC Glucose 106 131 H Random Glucose Calcium Prot Corrected Calcium Total Protein CSF Herpes I DNA (PCR) Negative CSF Herpes II DNA (PCR) Negative Valproic Acid 11/26/17 11/26/17 11/26/17 08:09 08:09 08:09 WBC 12.1 H RBC 3.77 L Hgb 12.0 Hct 35.0 MCV 92.7 MCH 31.8 MCHC 34.3 RDW 13.9 Plt Count 196 MPV 10.1 Neut % (Auto) 72.3 H Lymph % (Auto) 20.3 [place] % (Auto) 6.8 Eos % (Auto) 0.3 Baso % (Auto) 0.3 Neut # (Auto) 8.8 H Lymph # (Auto) 2.5 [place] # (Auto) 0.8 Eos # (Auto) 0.0 Baso # (Auto) 0.0 WBC Differential . Differential Comment Auto diff final Sodium 147 H Potassium 2.9 L* Chloride 116 H Carbon Dioxide 19.1 L Anion Gap 12 BUN 12 Creatinine 0.52 Estimated GFR Greater than 89 POC Glucose Random Glucose 112 H Calcium 7.1 L* Prot Corrected Calcium 8.1 L Total Protein 5.3 L CSF Herpes I DNA (PCR) CSF Herpes II DNA (PCR) Valproic Acid 81 11/26/17 12:05 WBC RBC Hgb Hct MCV MCH MCHC RDW Plt Count MPV Neut % (Auto) Lymph % (Auto) [place] % (Auto) Eos % (Auto) Baso % (Auto) Neut # (Auto) Lymph # (Auto) [place] # (Auto) Eos # (Auto) Baso # (Auto) WBC Differential Differential Comment Sodium 146 H Potassium 2.9 L* Chloride 115 H Carbon Dioxide 19.3 L Anion Gap 12 BUN 10 Creatinine 0.58 Estimated GFR Greater than 89 POC Glucose Random Glucose 106 Calcium 7.1 L* Prot Corrected Calcium 7.9 L Total Protein 5.6 L CSF Herpes I DNA (PCR) CSF Herpes II DNA (PCR) Valproic Acid Microbiology 11/23/17 14:45 Stool Giardia Antigen ([facility]) - Final Negative - No Giardia Antigen detected In selected cases of patients with a history of immunosuppression or foreign travel, a full ova and parasites examination may be desired. Contact the microbiology lab if full workup is indicated and subit another specimen for testing. 11/24/17 21:00 Blood - Peripheral Aerobic Blood Culture - Preliminary No growth in 2 days 11/24/17 21:00 Blood - Peripheral Anaerobic Blood Culture - Preliminary No growth in 2 days 11/24/17 21:05 Blood - Peripheral Aerobic Blood Culture - Preliminary No growth in 2 days 11/24/17 21:05 Blood - Peripheral Anaerobic Blood Culture - Preliminary No growth in 2 days 11/24/17 17:33 Catheterized Urine Urine Culture - Final Escherichia coli 11/24/17 13:08 Lumbar Puncture Gram Stain - Final 11/24/17 13:08 Lumbar Puncture CSF Culture - Preliminary No growth in 48 hours 11/23/17 14:45 Stool Stool for WBCs - Final Rare WBC's Assessment and Plan - Plan 61-year-old female with a past medical history significant for hypertension, dyslipidemia, chronic back pain status post multiple lumbar surgeries on morphine, Percocet, Lyrica and Tizanidine who presents to [facility] ED with altered mental status/acute encephalopathy. Patient is unable to provide any history and therefore history is obtained from discussion with the who is at the bedside as well as review of electronic medical record. //Acute encephalopathy/altered mental status: acute, unclear etiology, possibly due to combination of polypharmacy and poor oral intake/dehydration. Rule out infection/stroke. No hx of psychiatric illness although psychiatric component may be contributing, exam waxes/wanes. -CT head reviewed and neg for any acute intracranial abnormality -UDS + opiates. Patient on morphine, Percocet, Lyrica and Tizanidine at home - holding all sedating medications -Ammonia level 10, CBC wnl, afebrile, CXR neg, images reviewed by me -Initial UA not indicative of UTI, however repeat UA with +nitrates, initiated IV Rocephin, await urine culture -Blood cultures with no growth to date -neuro checks, fall/seizure precautions, continuous cardiac monitoring -PT/OT/ST with swallow evaluation, currently NPO -EEG abnormal consistent with encephalopathy -RPR nonreactive, vit B12 321 -avoid all sedating medications, holding home Morphine, Percocet, Lyrica and Tizanidine -Supportive treatment with IVF - changed to D5 1/2 NS with KCl (Na 151 and K 3.0) -Consulted neurology with abnormal EEG, ordered LP and MRI -S/p LP 11/24 - CSF studies unremarkable so far, cultures pending -Started on empiric IV Acyclovir, HSV pending -Brain MRI 11/24 suboptimal exam secondary to motion artifact otherwise no acute findings -ESR 24/CRP 0.63 - not significantly elevated to be concerned for arteritis -Repeat EEG 11/24 concerned for status epilepticus, patient already on Keppra and now with worsening EEG, discussed with Dr. Nair, recommends with initiating IV Depakote -Dr. Nair recommending repeat EEG on 11/26 = Follow-up repeat EEG. Appears improved. Pending speech evaluation. //Elevated troponin, mild: patient denying any chest pain to providers and denies any reported chest pain from the patient. Suspect demand ischemia from tachycardia -EKG with sinus tach, no evidence of ischemia -troponins flat 0.08, 0.13, 0.11 -continuous cardiac monitoring //Diarrhea: reports 3 watery incontinent BMs, continues to have diarrhea throughout admission -stool negative for C diff -enteric stool studies pending -give IVF hydration -start lactinex although patient not yet tolerating oral intake -avoid stool softeners -monitor BMs //UTI: Repeat UA 11/24 with +nitrates -Started on IV Rocephin 1g daily -Preliminary urine culture with gram negative rods, continue to monitor = Continue ceftriaxone for now. //Low TSH, 0.114 -Free T4 wnl -Outpatient f/up with PCP and repeat TSH/T4 //Hypernatremia/Hypokalemia: Na 151 and K 3.0. Suspect iatrogenic from IVF in combination with poor oral intake -change IVF from NS to D5W @ 84cc/hr with KCl replacement -Repeat BMP this afternoon and in am = Continues with hypernatremia despite D5 infusion. Will consult nephrology. //DVT prophylaxis -Heparin sq Discussed Condition With: Patient, nurse Discharge Planning: Discharge pending further clinical improvement. Patient still with encephalopathy/AMS. Not yet ready for discharge. = Pending speech evaluation We will need neurology clearance.
--- NOTE | 2017-11-26 20:38 | MG ---
cc: Joce Crews MD HISTORY OF PRESENT ILLNESS: History of a slow EEG in the past. Acyclovir, Depakote. Diffuse 6-7 Hz rhythm is noted. Some bifrontal delta waves are seen, which almost appear triphasic appearing. The patient is asleep; however, and some sleep spindles are noted and those triphasic appearing waves appear to be possibly vertex sharp waves. Photic stimulation was performed without significant posterior driving. Hyperventilation is not performed. Some chewing artifact was noted, slight twitch was noted to the feet, but that is correlated with some muscle artifact as did an arousal and body jerk. IMPRESSION: It looks like be may be a significant metabolic encephalopathy had no focal abnormality was noted. No seizure activity was seen. Joce Crews MD DJM/sj , 07:38 PM , 07:42 PM
--- NOTE | 2017-11-26 20:55 | P.PNNEU ---
Subjective Subjective Comments: much more alert Active Medications: Active Medications Al Hydroxide/Mg Hydroxide (Milk Of Magnnuris Liq) 30 ml PO Q12H PRN PRN Reason: Mild Constipation Bisacodyl (Dulcolax Supp) 10 mg RECTAL DAILY PRN PRN Reason: SEVERE CONSITIPATION Cyanocobalamin (Vitamin B12 Inj) 1,000 mcg IM Q7D [facility] Stop: 12/15/17 16:01 Last Admin: 11/24/17 16:14 Dose: 1,000 mcg Dextrose (D50w Vial) 50 ml IV.PUSH UNSCH PRN PRN Reason: PER HYPOGLYCEMIA PROTOCOL Glucagon (Glucagon Inj) 1 mg OTHER UNSCH PRN PRN Reason: for Hypoglycemia Protocol Heparin Sodium (Porcine) (Heparin Inj) 5,000 units SQ Q12HR [facility] Last Admin: 11/26/17 20:33 Dose: 5,000 units Dextrose (D5w Inj) 1,000 mls @ 100 mls/hr IV.CONT .Q10H [facility] Last Admin: 11/26/17 17:13 Dose: 100 mls/hr Ceftriaxone Sodium 1,000 mg/ (Sodium Chloride) 100 mls @ 200 mls/hr IV.SIG Q24H [facility] Last Infusion: 11/26/17 08:30 Dose: Infused Acyclovir Sodium 680 mg/ (Sodium Chloride) 113.6 mls @ 113.6 mls/hr IV.SIG Q8H [facility] Last Admin: 11/26/17 17:14 Dose: 113 mls/hr Valproate Sodium 500 mg/ (Sodium Chloride) 105 mls @ 105 mls/hr IV.SIG Q6H [facility] Last Infusion: 11/26/17 16:45 Dose: Infused Acetaminophen (Ofirmev Inj) 1,000 mg in 100 mls @ 400 mls/hr IV.SIG Q6H PRN PRN Reason: PAIN SCALE 1 TO 5 Potassium Chloride (Kcl 10 Meq Premix Inj) 10 meq in 100 mls @ 100 mls/hr IV.SIG Q1H [facility] Stop: 11/26/17 22:59 Last Admin: 11/26/17 20:33 Dose: 100 mls/hr Ketorolac Tromethamine (Toradol Inj) 15 mg IV.PUSH Q6H PRN PRN Reason: PAIN SCALE 6 TO 10 Stop: 11/28/17 16:26 Lactobacillus Acidophilus (Lactinex) 1 tab PO BID [facility] Last Admin: 10/04/18 08:07 Dose: Not Given Lactulose (Lactulose Liq) 30 ml PO DAILY PRN PRN Reason: SEVERE CONSITIPATION Lidocaine HCl (Lidoderm 5% Patch.12 Hr) 1 patch T-DERMAL DAILY [facility] Last Admin: 11/26/17 08:07 Dose: 1 patch Lorazepam (Ativan Inj) 2 mg IV.PUSH Q5M PRN PRN Reason: SEIZURES Ondansetron HCl (Zofran Inj) 4 mg IV.PUSH Q6H PRN PRN Reason: NAUSEA OR VOMITING Patch Removal (Remove Old Patch) 1 each T-DERMAL HS [facility] Last Admin: 11/25/17 22:33 Dose: 1 each Pravastatin Sodium (Pravachol) 40 mg PO DAILY [facility] Last Admin: 11/26/17 08:08 Dose: Not Given Senna/Docusate Sodium (Kaylyn-Colace) 1 tab PO BID [facility] Last Admin: 11/26/17 08:08 Dose: Not Given Sennosides (Senokot) 17.2 mg PO Q12H PRN PRN Reason: Moderate Constipation Sodium Chloride (Ns Flush) 2 ml IV.FLUSH BID [facility] Last Admin: 11/26/17 20:34 Dose: 2 ml Sodium Chloride (Ns Flush) 2 ml IV.FLUSH PRN PRN PRN Reason: FLUSH AFTER USING IV ACCESS Allergies/Adverse Reactions: Allergies Allergy/AdvReac Type Severity Reaction Status Date / Time No Known Allergies Allergy Unverified 11/23/17 02:03 Physical Exam Vital signs: Vital Signs 11/26/17 00:10 11/26/17 01:43 11/26/17 04:00 Temperature 98.0 F Pulse Rate 73 86 79 Respiratory Rate 18 Blood Pressure 141/82 H Pulse Oximetry 98 11/26/17 08:00 11/26/17 12:00 11/26/17 16:00 Temperature 98.5 F 98.6 F 98.7 F Pulse Rate 74 85 90 Respiratory Rate 16 20 20 Blood Pressure 153/79 H 144/82 H 141/85 H Pulse Oximetry 100 97 97 11/26/17 17:46 Temperature Pulse Rate Respiratory Rate Blood Pressure Pulse Oximetry 97 Intake & Output 11/26/17 11/26/17 11/27/17 06:59 18:59 06:59 Intake Total 537.2 / 537.2 2823.6 / 2823.6 Balance 537.2 / 537.2 2823.6 / 2823.6 Intake: IV 537.2 / 537.2 2823.6 / 2823.6 D5W Inj 1,000 ML @ 100 mls/hr 1999 / 1999 IV.CONT .Q10H [facility] Rx#:[id number] Zovirax Inj 680 MG In NS Inj 227.2 / 227.2 113.6 / 113.6 100 ML @ 113.6 mls/hr IV.SIG Q8H [facility] Rx#:[id number] KCl 10 mEq Premix Inj 10 meq In 400 / 400 100 ml @ 100 mls/hr IV.SIG Q1H [facility] Rx#:[id number] KCl 20 mEq Premix Inj 20 meq In 100 / 100 100 ml @ 50 mls/hr IV.SIG ONCE ONE Rx#:[id number] Depacon Inj 500 MG In NS Inj 210 / 210 210 / 210 100 ML @ 105 mls/hr IV.SIG Q6H [facility] Rx#:[id number] Rocephin Inj 1,000 MG In NS Inj 100 / 100 100 ML @ 200 mls/hr IV.SIG Q24H [facility] Rx#:[id number] Other: # Voids 3 Date of Last Bowel Movement 11/26/17 11/26/17 # Bowel Movements 1 - Routine Neurological Exam alert, oriented times 3, follow commands. speech normal CN intact MOTOR 5/5 BUE Objective Laboratory Results - last 24 hr 11/24/17 11/25/17 11/26/17 13:08 23:24 07:41 WBC RBC Hgb Hct MCV MCH MCHC RDW Plt Count MPV Neut % (Auto) Lymph % (Auto) [place] % (Auto) Eos % (Auto) Baso % (Auto) Neut # (Auto) Lymph # (Auto) [place] # (Auto) Eos # (Auto) Baso # (Auto) WBC Differential Differential Comment Sodium Potassium Chloride Carbon Dioxide Anion Gap BUN Creatinine Estimated GFR POC Glucose 106 131 H Random Glucose Calcium Prot Corrected Calcium Total Protein CSF Herpes I DNA (PCR) Negative CSF Herpes II DNA (PCR) Negative Valproic Acid 11/26/17 11/26/17 11/26/17 08:09 08:09 08:09 WBC 12.1 H RBC 3.77 L Hgb 12.0 Hct 35.0 MCV 92.7 MCH 31.8 MCHC 34.3 RDW 13.9 Plt Count 196 MPV 10.1 Neut % (Auto) 72.3 H Lymph % (Auto) 20.3 [place] % (Auto) 6.8 Eos % (Auto) 0.3 Baso % (Auto) 0.3 Neut # (Auto) 8.8 H Lymph # (Auto) 2.5 [place] # (Auto) 0.8 Eos # (Auto) 0.0 Baso # (Auto) 0.0 WBC Differential . Differential Comment Auto diff final Sodium 147 H Potassium 2.9 L* Chloride 116 H Carbon Dioxide 19.1 L Anion Gap 12 BUN 12 Creatinine 0.52 Estimated GFR Greater than 89 POC Glucose Random Glucose 112 H Calcium 7.1 L* Prot Corrected Calcium 8.1 L Total Protein 5.3 L CSF Herpes I DNA (PCR) CSF Herpes II DNA (PCR) Valproic Acid 81 11/26/17 11/26/17 12:05 19:29 WBC RBC Hgb Hct MCV MCH MCHC RDW Plt Count MPV Neut % (Auto) Lymph % (Auto) [place] % (Auto) Eos % (Auto) Baso % (Auto) Neut # (Auto) Lymph # (Auto) [place] # (Auto) Eos # (Auto) Baso # (Auto) WBC Differential Differential Comment Sodium 146 H Potassium 2.9 L* Chloride 115 H Carbon Dioxide 19.3 L Anion Gap 12 BUN 10 Creatinine 0.58 Estimated GFR Greater than 89 POC Glucose 121 H Random Glucose 106 Calcium 7.1 L* Prot Corrected Calcium 7.9 L Total Protein 5.6 L CSF Herpes I DNA (PCR) CSF Herpes II DNA (PCR) Valproic Acid Microbiology 11/23/17 14:45 Enteric Pathogens (PCR) - Final Stool Norovirus 11/23/17 14:45 Giardia Antigen ([facility]) - Final Stool Negative - No Giardia Antigen detected In selected cases of patients with a history of immunosuppression or foreign travel, a full ova and parasites examination may be desired. Contact the microbiology lab if full workup is indicated and subit another specimen for testing. 11/24/17 21:00 Aerobic Blood Culture - Preliminary Blood - Peripheral No growth in 2 days Anaerobic Blood Culture - Preliminary No growth in 2 days 11/24/17 21:05 Aerobic Blood Culture - Preliminary Blood - Peripheral No growth in 2 days Anaerobic Blood Culture - Preliminary No growth in 2 days 11/24/17 17:33 Urine Culture - Final Catheterized Urine Escherichia coli 11/24/17 13:08 Gram Stain - Final Lumbar Puncture CSF Culture - Preliminary No growth in 48 hours 11/23/17 14:45 Stool for WBCs - Final Stool Rare WBC's Review/Management - Diagnosis (1) Altered mental status Code(s): R41.82 - Altered mental status, unspecified Status: Acute Current Visit: Yes - Review/Management Plan: subclinical sz ---improved with depakote check swallow eval and if passes, start diet. change depakote to po (1) Altered mental status Qualifiers: Altered mental status type: unspecified Qualified Code(s): R41.82 - Altered mental status, unspecified
[2017-11-27] MEDS: Potassium Chlor 10 mEq Premix 10 MEQ/100 ML PIGGYBACK IV.SIG SCH ×6 (00:58→22:28)
[2017-11-27] MEDS: Dextrose 5% in Water Inj 1,000 ML IV.CONT SCH ×2 (01:12→11:09)
[2017-11-27] MEDS: ACYCLOVIR IV.SIG SCH ×4 (01:33→18:54)
[2017-11-27] MEDS: SODIUM CHLOR 0.9% IV.SIG SCH ×4 (01:33→18:54)
[2017-11-27] MEDS: Valproate Inj 500 MG in Sodium Chlor 0.9% Inj 100 ML IV.SIG SCH ×4 (02:12→21:13)
[2017-11-27 07:25] LABS: Baso % (Auto) 0.1 % (0.0-2.0); Eos % (Auto) 0.2 % (0.0-4.0); Hemoglobin 13.4 gm/dL (11.6-15.3); Lymph # (Auto) 2.6 th/mm3 (1.0-4.8); Lymph % (Auto) 17.8 % (9.0-44.0); Mean Corpuscular HGB Conc 34.4 % (32.0-36.0); Mean Corpuscular Hemoglobin 31.6 pg (27.0-34.0); Mean Platelet Volume 10.2 fL (7.0-11.0); Mono # (Auto) 0.9 th/mm3 (0.0-0.9); Neut % (Auto) 75.9 % (16.0-70.0); Platelet Count 214 th/mm3 (150-450); Red Blood Count 4.24 mil/mm3 (4.00-5.30); Red Cell Distribution Width 13.9 % (11.6-17.2); White Blood Count 14.5 th/mm3 (4.0-11.0)
[2017-11-27 08:03] LABS: Albumin 2.5 g/dL (3.4-5.0); Anion Gap 14 meq/L (5-15); Blood Urea Nitrogen 4 mg/dL (7-18); Carbon Dioxide 17.2 meq/L (21.0-32.0); Chloride 112 meq/L (98-107); Glomerular Filtration Rate Greater Than 89 mL/min (>89); Glucose,Random 103 mg/dL (74-106); Magnesium 1.7 mg/dL (1.5-2.5); Phosphorus 1.5 mg/dL (2.5-4.9); Sodium 143 meq/L (136-145)
[2017-11-27 08:11] LABS: Calcium 6.9 mg/dL (8.5-10.1); Potassium 2.6 meq/L (3.5-5.1)
[2017-11-27] MEDS ORDERED: Potassium Phosphate Inj 30 MMOL in Sodium Chlor 0.9% Inj 250 ML IV.SIG ONE (10:00)
[2017-11-27] MEDS: Lactobacillus Acidophilus/L. Spores Tablet PO SCH ×2 (10:33→21:14)
[2017-11-27] MEDS: Sodium Chloride 0.9% 2 ML Flush BID IV.FLUSH SCH ×2 (10:34→21:15)
[2017-11-27] MEDS: Senna/Docusate Sodium 8.6/50 MG Tablet PO SCH ×2 (10:34→21:15)
[2017-11-27] MEDS: Heparin - SQ 10,000 UNITS/ML Vial SQ SCH ×2 (10:35→21:13)
[2017-11-27] MEDS: Lidocaine 5% Patch T-DERMAL SCH (11:09)
--- NOTE | 2017-11-27 12:37 | P.PNIM ---
Subjective Interval history: She says she is feeling all right. Denies any chest pain or shortness of breath. The past swallow eval. She reports diarrhea. Denies any abdominal pain. Physical Exam Vital signs: Vital Signs 11/26/17 16:00 11/26/17 17:46 11/26/17 20:00 Temperature 98.7 F 97.6 F Pulse Rate 90 87 Respiratory Rate 20 14 Blood Pressure 141/85 H 137/85 Pulse Oximetry 97 97 95 11/27/17 00:00 11/27/17 04:00 11/27/17 08:00 Temperature 98.1 F 98.7 F 99.2 F Pulse Rate 82 93 H 86 Respiratory Rate 16 18 20 Blood Pressure 153/76 H 142/73 H 150/86 H Pulse Oximetry 98 96 96 Intake & Output 11/26/17 11/27/17 11/27/17 18:59 06:59 18:59 Intake Total 2937.2 / 2937.2 1510 / 1510 1000 / 1000 Balance 2937.2 / 2937.2 1510 / 1510 1000 / 1000 Weight 70.8 kg Intake: IV 2937.2 / 2937.2 1510 / 1510 1000 / 1000 D5W Inj 1,000 ML @ 100 mls/hr 2000 / 2000 1000 / 1000 1000 / 1000 IV.CONT .Q10H [facility] Rx#:[id number] Zovirax Inj 680 MG In NS Inj 227.2 / 227.2 100 ML @ 113.6 mls/hr IV.SIG Q8H [facility] Rx#:[id number] KCl 10 mEq Premix Inj 10 meq In 400 / 400 300 / 300 100 ml @ 100 mls/hr IV.SIG Q1H [facility] Rx#:[id number] Depacon Inj 500 MG In NS Inj 210 / 210 210 / 210 100 ML @ 105 mls/hr IV.SIG Q6H [facility] Rx#:[id number] Rocephin Inj 1,000 MG In NS Inj 100 / 100 100 ML @ 200 mls/hr IV.SIG Q24H [facility] Rx#:[id number] Other: # Voids 3 8 Date of Last Bowel Movement 11/26/17 11/26/17 # Bowel Movements 1 5 Narrative: GENERAL: Patient lying in bed. Talking. Alert. Smiling today. SKIN: Warm and dry. HEAD: Normocephalic. EYES: No scleral icterus. No injection or drainage. NECK: Supple, trachea midline. No JVD. CARDIOVASCULAR: Regular rate and rhythm without murmurs, gallops, or rubs. RESPIRATORY: Breath sounds equal bilaterally. No accessory muscle use. GASTROINTESTINAL: Abdomen soft, non-tender, nondistended. MUSCULOSKELETAL: No cyanosis, or edema. BACK: Nontender without obvious deformity. No CVA tenderness. Results - Labs CBC & Chem 7: 11/27/17 06:26 11/27/17 06:26 Laboratory Results - last 24 hr 11/26/17 11/26/17 11/27/17 12:05 19:29 06:26 WBC 14.5 H RBC 4.24 Hgb 13.4 Hct 39.0 MCV 92.0 MCH 31.6 MCHC 34.4 RDW 13.9 Plt Count 214 MPV 10.2 Neut % (Auto) 75.9 H Lymph % (Auto) 17.8 [place] % (Auto) 6.0 Eos % (Auto) 0.2 Baso % (Auto) 0.1 Neut # (Auto) 11.0 H Lymph # (Auto) 2.6 [place] # (Auto) 0.9 Eos # (Auto) 0.0 Baso # (Auto) 0.0 WBC Differential . Differential Comment Auto diff final Sodium 146 H Potassium 2.9 L* Chloride 115 H Carbon Dioxide 19.3 L Anion Gap 12 BUN 10 Creatinine 0.58 Estimated GFR Greater than 89 POC Glucose 121 H Random Glucose 106 Calcium 7.1 L* Prot Corrected Calcium 7.9 L Phosphorus Magnesium Total Protein 5.6 L Albumin 11/27/17 06:26 WBC RBC Hgb Hct MCV MCH MCHC RDW Plt Count MPV Neut % (Auto) Lymph % (Auto) [place] % (Auto) Eos % (Auto) Baso % (Auto) Neut # (Auto) Lymph # (Auto) [place] # (Auto) Eos # (Auto) Baso # (Auto) WBC Differential Differential Comment Sodium 143 Potassium 2.6 L* Chloride 112 H Carbon Dioxide 17.2 L Anion Gap 14 BUN 4 L Creatinine 0.58 Estimated GFR Greater than 89 POC Glucose Random Glucose 103 Calcium 6.9 L* Prot Corrected Calcium Phosphorus 1.5 L Magnesium 1.7 Total Protein Albumin 2.5 L Microbiology 11/24/17 21:00 Blood - Peripheral Aerobic Blood Culture - Preliminary No growth in 3 days 11/24/17 21:00 Blood - Peripheral Anaerobic Blood Culture - Preliminary No growth in 3 days 11/24/17 21:05 Blood - Peripheral Aerobic Blood Culture - Preliminary No growth in 3 days 11/24/17 21:05 Blood - Peripheral Anaerobic Blood Culture - Preliminary No growth in 3 days 11/24/17 13:08 Lumbar Puncture Gram Stain - Final 11/24/17 13:08 Lumbar Puncture CSF Culture - Final No growth in 72 hours 11/23/17 14:45 Stool Enteric Pathogens (PCR) - Final Norovirus 11/23/17 14:45 Stool Giardia Antigen (BRENNAN) - Final Negative - No Giardia Antigen detected In selected cases of patients with a history of immunosuppression or foreign travel, a full ova and parasites examination may be desired. Contact the microbiology lab if full workup is indicated and subit another specimen for testing. 11/24/17 17:33 Catheterized Urine Urine Culture - Final Escherichia coli Assessment and Plan - Plan 61-year-old female with a past medical history significant for hypertension, dyslipidemia, chronic back pain status post multiple lumbar surgeries on morphine, Percocet, Lyrica and Tizanidine who presents to [facility] ED with altered mental status/acute encephalopathy. Patient is unable to provide any history and therefore history is obtained from discussion with the who is at the bedside as well as review of electronic medical record. //Acute encephalopathy/altered mental status: acute, unclear etiology, possibly due to combination of polypharmacy and poor oral intake/dehydration. Rule out infection/stroke. No hx of psychiatric illness although psychiatric component may be contributing, exam waxes/wanes. -CT head reviewed and neg for any acute intracranial abnormality -UDS + opiates. Patient on morphine, Percocet, Lyrica and Tizanidine at home - holding all sedating medications -Ammonia level 10, CBC wnl, afebrile, CXR neg, images reviewed by me -Initial UA not indicative of UTI, however repeat UA with +nitrates, initiated IV Rocephin, await urine culture -Blood cultures with no growth to date -neuro checks, fall/seizure precautions, continuous cardiac monitoring -PT/OT/ST with swallow evaluation, currently NPO -EEG abnormal consistent with encephalopathy -RPR nonreactive, vit B12 321 -avoid all sedating medications, holding home Morphine, Percocet, Lyrica and Tizanidine -Supportive treatment with IVF - changed to D5 02/24 NS with KCl (Na 151 and K 3.0) -Consulted neurology with abnormal EEG, ordered LP and MRI -S/p LP 11/24 - CSF studies unremarkable so far, cultures pending -Started on empiric IV Acyclovir, HSV pending -Brain MRI 11/24 suboptimal exam secondary to motion artifact otherwise no acute findings -ESR 24/CRP 0.63 - not significantly elevated to be concerned for arteritis -Repeat EEG 11/24 concerned for status epilepticus, patient already on Keppra and now with worsening EEG, discussed with Dr. Nair, recommends with initiating IV Depakote -Dr. Nair recommending repeat EEG on 11/26 = Follow-up repeat EEG. Appears improved. Pending speech evaluation. = 11/27. Improved mentation. Repeat EEG without seizure activity, although does show metabolic encephalopathy. //Elevated troponin, mild: patient denying any chest pain to providers and denies any reported chest pain from the patient. Suspect demand ischemia from tachycardia -EKG with sinus tach, no evidence of ischemia -troponins flat 0.08, 0.13, 0.11 -continuous cardiac monitoring //Diarrhea: reports 3 watery incontinent BMs, continues to have diarrhea throughout admission -stool negative for C diff -enteric stool studies pending -give IVF hydration -start lactinex although patient not yet tolerating oral intake -avoid stool softeners -monitor BMs = Rachell virus infection. Patient is on isolation. Will continue IV fluids. Continue to monitor. //UTI: Repeat UA 11/24 with +nitrates -Started on IV Rocephin 1g daily -Preliminary urine culture with gram negative rods, continue to monitor = Continue ceftriaxone for now. //Low TSH, 0.114 -Free T4 wnl -Outpatient f/up with PCP and repeat TSH/T4 //Hypernatremia/Hypokalemia: Na 151 and K 3.0. Suspect iatrogenic from IVF in combination with poor oral intake -change IVF from NS to D5W @ 84cc/hr with KCl replacement -Repeat BMP this afternoon and in am = Continues with hypernatremia despite D5 infusion. Will consult nephrology. = 11/27. Patient has been approved for diet. Hopefully this will improve hypokalemia. Hypophosphatemia with phosphorus of 1.5 today. We will continue IV fluids. //Non-anion gap metabolic acidosis. Likely secondary to bicarb loss from diarrhea. Continue symptom medic treatment. Continue to monitor. //DVT prophylaxis -Heparin sq Discharge Planning: Discharge pending further clinical improvement. Patient still with encephalopathy/AMS. Not yet ready for discharge. Still with diarrhea, non-anion gap metabolic acidosis, metabolic encephalopathy.. We will need neurology clearance.
[2017-11-27 14:51] LABS: Anion Gap 11 meq/L (5-15); Blood Urea Nitrogen 3 mg/dL (7-18); Calcium 6.9 mg/dL (8.5-10.1); Carbon Dioxide 16.7 meq/L (21.0-32.0); Chloride 114 meq/L (98-107); Glomerular Filtration Rate Greater Than 89 mL/min (>89); Glucose,Random 112 mg/dL (74-106); Sodium 142 meq/L (136-145)
[2017-11-27 15:25] LABS: Total Protein 5.2 g/dL (6.4-8.2)
--- NOTE | 2017-11-27 15:44 | P.CONNP ---
History of Present Illness Reason for Consult: Hypokalemia, metabolic acidosis. Primary Care Provider: nneka Mark Chief Complaint: altered mental status/encephalopathy History of Present Illness: This patient is a 61-year-old female apparently with a history of hypertension as well as chronic pain syndrome related to multiple lumbar spine surgeries who uses acetaminophen chronically on a daily basis. Also apparently the patient's nutritional intake has been somewhat poor for some time now per . Patient has lost about 60 pounds over several months and according to she is somewhat obsessive about her weight with diminished nutritional intake but he denies a history suggesting bulimia or laxative abuse. Denies diarrhea prior to admission. On presentation to the hospital she had evidence of altered mental status and there was evidence also of a mixed acid-base disorder with a respiratory alkalosis and normal anion gap acidosis although after hydration her albumin level noted to be low so her anion gap has to be corrected and may have been slightly elevated with subsequent hydration. Unfortunately the patient's had laboratory data going back to 2016 available and her acid-base status previously appeared to be normal with a normal potassium level for example January 2017 potassium was 4.1 and total bicarbonate level was 23. Patient has self can provide no meaningful history as she is very lethargic. Review of Systems unobtainable due to mental status PMFSH - History History Provided By: Family Member, Medical Record - Medical History Medical History: Medical History (Last Reviewed 11/27/17 @ 09:27 by Andie Oseguera) HTN (hypertension) Chronic pain Hyperlipidemia - Surgical History Surgical History: Surgical History (Last Reviewed 11/27/17 @ 09:27 by Andie Oseguera) Previous back surgery - Family History Family History: Family History (Last Updated 11/23/17 @ 09:18 by Delores Chavez) Father Colon cancer - Social History I have reviewed the patient's Social History: Yes - Tobacco History Second Hand Smoke Exposure: No Smoking Status: Current every day smoker Tobacco Type: Cigarettes Packs Per Day: 0.5 - Alcohol History How Often Do You Have a Drink Containing Alcohol: Never - Substance Use History Substance History: No History of Abuse - Travel History Recent Travel in the [place] Within the Last 8 Weeks: No Recent Travel Out of the Country Within the Last 8 Weeks: No - Immunization History Tetanus Immunization: >5 Years Hx Influenza Vaccine This Season: No Medications and Allergies Active Medications: Active Medications Al Hydroxide/Mg Hydroxide (Milk Of Fabrizio Liq) 30 ml PO Q12H PRN PRN Reason: Mild Constipation Bisacodyl (Dulcolax Supp) 10 mg RECTAL DAILY PRN PRN Reason: SEVERE CONSITIPATION Cyanocobalamin (Vitamin B12 Inj) 1,000 mcg IM Q7D [facility] Stop: 12/15/17 16:01 Last Admin: 11/24/17 16:14 Dose: 1,000 mcg Dextrose (D50w Vial) 50 ml IV.PUSH UNSCH PRN PRN Reason: PER HYPOGLYCEMIA PROTOCOL Glucagon (Glucagon Inj) 1 mg OTHER UNSCH PRN PRN Reason: for Hypoglycemia Protocol Heparin Sodium (Porcine) (Heparin Inj) 5,000 units SQ Q12HR [facility] Last Admin: 11/27/17 10:35 Dose: 5,000 units Dextrose (D5w Inj) 1,000 mls @ 100 mls/hr IV.CONT .Q10H [facility] Last Infusion: 11/27/17 11:19 Dose: Infused Ceftriaxone Sodium 1,000 mg/ (Sodium Chloride) 100 mls @ 200 mls/hr IV.SIG Q24H [facility] Last Admin: 11/27/17 11:19 Dose: 200 mls/hr Acyclovir Sodium 680 mg/ (Sodium Chloride) 113.6 mls @ 113.6 mls/hr IV.SIG Q8H [facility] Last Admin: 11/27/17 13:31 Dose: 113 mls/hr Valproate Sodium 500 mg/ (Sodium Chloride) 105 mls @ 105 mls/hr IV.SIG Q6H [facility] Last Infusion: 11/27/17 11:36 Dose: Infused Acetaminophen (Ofirmev Inj) 1,000 mg in 100 mls @ 400 mls/hr IV.SIG Q6H PRN PRN Reason: PAIN SCALE 1 TO 5 Potassium Phosphate 30 mmol/ (Sodium Chloride) 260 mls @ 43.333 mls/hr IV.SIG ONCE ONE Stop: 11/27/17 15:59 Last Admin: 11/27/17 13:27 Dose: 43.33 mls/hr Ketorolac Tromethamine (Toradol Inj) 15 mg IV.PUSH Q6H PRN PRN Reason: PAIN SCALE 6 TO 10 Stop: 11/28/17 16:26 Lactobacillus Acidophilus (Lactinex) 1 tab PO BID [facility] Last Admin: 11/27/17 10:33 Dose: 1 tab Lactulose (Lactulose Liq) 30 ml PO DAILY PRN PRN Reason: SEVERE CONSITIPATION Lidocaine HCl (Lidoderm 5% Patch.12 Hr) 1 patch T-DERMAL DAILY [facility] Last Admin: 11/27/17 11:09 Dose: 1 patch Lorazepam (Ativan Inj) 2 mg IV.PUSH Q5M PRN PRN Reason: SEIZURES Ondansetron HCl (Zofran Inj) 4 mg IV.PUSH Q6H PRN PRN Reason: NAUSEA OR VOMITING Patch Removal (Remove Old Patch) 1 each T-DERMAL HS [facility] Last Admin: 11/26/17 22:12 Dose: 1 each Pravastatin Sodium (Pravachol) 40 mg PO DAILY [facility] Last Admin: 11/27/17 10:34 Dose: 40 mg Pregabalin (Lyrica) 200 mg PO TID [facility] Last Admin: 11/27/17 13:31 Dose: 200 mg Senna/Docusate Sodium (Kaylyn-Colace) 1 tab PO BID [facility] Last Admin: 11/27/17 10:34 Dose: Not Given Sennosides (Senokot) 17.2 mg PO Q12H PRN PRN Reason: Moderate Constipation Sodium Chloride (Ns Flush) 2 ml IV.FLUSH BID [facility] Last Admin: 11/27/17 10:34 Dose: Not Given Sodium Chloride (Ns Flush) 2 ml IV.FLUSH PRN PRN PRN Reason: FLUSH AFTER USING IV ACCESS Allergies Allergy/AdvReac Type Severity Reaction Status Date / Time No Known Allergies Allergy Unverified 11/23/17 02:03 Home Medications Medication Instructions Recorded Confirmed Type lisinopril 30 mg PO DAILY 11/23/17 11/23/17 History morphine 30 mg PO BID 11/23/17 11/23/17 History oxycodone-acetaminophen [Percocet] 1 tab PO Q8H PRN 11/23/17 11/23/17 History pravastatin 40 mg PO DAILY 11/23/17 11/23/17 History pregabalin [Lyrica] 200 mg PO TID 11/23/17 11/23/17 History tizanidine 4 mg PO DAILY 11/23/17 11/23/17 History Exam Vital signs: Vital Signs 11/26/17 16:00 11/26/17 17:46 11/26/17 20:00 Temperature 98.7 F 97.6 F Pulse Rate 90 87 Respiratory Rate 20 14 Blood Pressure 141/85 H 137/85 Pulse Oximetry 97 97 95 11/27/17 00:00 11/27/17 04:00 11/27/17 08:00 Temperature 98.1 F 98.7 F 99.2 F Pulse Rate 82 93 H 86 Respiratory Rate 16 18 20 Blood Pressure 153/76 H 142/73 H 150/86 H Pulse Oximetry 98 96 96 11/27/17 12:00 Temperature 98.1 F Pulse Rate 87 Respiratory Rate 20 Blood Pressure 131/79 Pulse Oximetry 94 L Intake & Output 11/26/17 11/27/17 11/27/17 18:59 06:59 18:59 Intake Total 2937.2 / 2937.2 1623.6 / 1623.6 1205 / 1205 Balance 2937.2 / 2937.2 1623.6 / 1623.6 1205 / 1205 Weight 70.8 kg Intake: IV 2937.2 / 2937.2 1623.6 / 1623.6 1205 / 1205 D5W Inj 1,000 ML @ 100 mls/hr 2000 / 2000 1000 / 1000 1000 / 1000 IV.CONT .Q10H [facility] Rx#:[id number] Zovirax Inj 680 MG In NS Inj 227.2 / 227.2 113.6 / 113.6 100 ML @ 113.6 mls/hr IV.SIG Q8H [facility] Rx#:[id number] KCl 10 mEq Premix Inj 10 meq In 400 / 400 300 / 300 100 / 100 100 ml @ 100 mls/hr IV.SIG Q1H [facility] Rx#:[id number] Depacon Inj 500 MG In NS Inj 210 / 210 210 / 210 105 / 105 100 ML @ 105 mls/hr IV.SIG Q6H [facility] Rx#:[id number] Rocephin Inj 1,000 MG In NS Inj 100 / 100 100 ML @ 200 mls/hr IV.SIG Q24H [facility] Rx#:[id number] Other: # Voids 3 8 Date of Last Bowel Movement 11/26/17 11/26/17 # Bowel Movements 1 5 Narrative: GENERAL: Somewhat thin appearing middle-aged female lying in bed lethargic not in respiratory distress. SKIN: Warm and dry. HEAD: Normocephalic. EYES: No scleral icterus. No injection or drainage. NECK: Supple, trachea midline. No JVD CARDIOVASCULAR: Regular rate and rhythm without murmurs, gallops, or rubs. RESPIRATORY: Breath sounds equal bilaterally. No accessory muscle use. GASTROINTESTINAL: Abdomen soft, non-tender, nondistended. MUSCULOSKELETAL: No cyanosis, or edema. Results - Lab Results 11/27/17 06:26 11/27/17 13:46 Most recent lab results ABG pH 7.45 (7.380-7.420) H 11/23/17 09:32 ABG pCO2 23 mmHg (38-42) L* 11/23/17 09:32 ABG pO2 94 mmHg (61-120) 11/23/17 09:32 ABG HCO3 16 mmol/L (22-26) L* 11/23/17 09:32 Calcium 6.9 mg/dL (8.5-10.1) L* 11/27/17 13:46 Phosphorus 1.5 mg/dL (2.5-4.9) L 11/27/17 06:26 Magnesium 1.7 mg/dL (1.5-2.5) 11/27/17 06:26 Assessment and Plan - Assessment (1) Acidosis, metabolic Code(s): E87.2 - Acidosis Status: Acute Plan: Etiology of the patient's chronic metabolic acidosis not entirely clear. is denying diarrhea prior to admission although she may be having loose stool in-house. Metabolic acidosis may be related to ongoing diarrhea although the is denying that the patient had diarrhea prior to admission and she did present with metabolic acidosis. Of interest the patient uses acetaminophen chronically i.e. Percocet and she does have a history suggestive of poor nutritional intake. Chronic high anion metabolic acidosis has been seen in malnourished women felt to be related to accumulation of 5 Oxloprolene pyroglutamic acid. Etiology felt to be related to a deficiency of glutathione. Although the patient has a normal calculated anion gap I believe it is slightly elevated when you adjust for the low serum albumin Interestingly this deficiency can be associated with mental status change. Also mention of hemolytic anemia but the patient does not appear to have this . At this point I would recommend discontinuance of acetaminophen. Also evidence should be made to improve her nutritional status. Uncertain how to diagnose glutathione deficiency and I do have a call out to the laboratory pathologist for advice to see if we can check levels.. (2) Hypokalemia Code(s): E87.6 - Hypokalemia Status: Acute Plan: May be related to ongoing nutritional deficit as well as diarrhea. We will also check urinary potassium to screen for urinary wastage. Continue supplement as ordered. Recheck magnesium level.
[2017-11-27] MEDS: Sodium Bicarbonate 8.4% Inj 75 MEQ in Dextrose 5% in Water Inj 925 ML IV.CONT SCH ×2 (18:58)
--- NOTE | 2017-11-27 20:41 | P.PNNEU ---
Subjective Subjective Comments: alert, speech normal. follow commands CN intact MOTOR 5/5 BUE and BLE Active Medications: Active Medications Al Hydroxide/Mg Hydroxide (Milk Of Magnesia Liq) 30 ml PO Q12H PRN PRN Reason: Mild Constipation Bisacodyl (Dulcolax Supp) 10 mg RECTAL DAILY PRN PRN Reason: SEVERE CONSITIPATION Cyanocobalamin (Vitamin B12 Inj) 1,000 mcg IM Q7D [facility] Stop: 12/15/17 16:01 Last Admin: 11/24/17 16:14 Dose: 1,000 mcg Dextrose (D50w Vial) 50 ml IV.PUSH UNSCH PRN PRN Reason: PER HYPOGLYCEMIA PROTOCOL Glucagon (Glucagon Inj) 1 mg OTHER UNSCH PRN PRN Reason: for Hypoglycemia Protocol Heparin Sodium (Porcine) (Heparin Inj) 5,000 units SQ Q12HR [facility] Last Admin: 11/27/17 10:35 Dose: 5,000 units Ceftriaxone Sodium 1,000 mg/ (Sodium Chloride) 100 mls @ 200 mls/hr IV.SIG Q24H [facility] Last Infusion: 11/27/17 11:49 Dose: Infused Acyclovir Sodium 680 mg/ (Sodium Chloride) 113.6 mls @ 113.6 mls/hr IV.SIG Q8H [facility] Last Admin: 11/27/17 18:00 Dose: 113 mls/hr Valproate Sodium 500 mg/ (Sodium Chloride) 105 mls @ 105 mls/hr IV.SIG Q6H [facility] Last Infusion: 11/27/17 16:26 Dose: Infused Sodium Bicarbonate 75 meq/ (Dextrose) 1,000 mls @ 100 mls/hr IV.CONT .Q10H [facility] Last Admin: 11/27/17 18:58 Dose: 100 mls/hr Potassium Chloride (Kcl 10 Meq Premix Inj) 10 meq in 100 mls @ 100 mls/hr IV.SIG Q1H [facility] Stop: 11/27/17 21:59 Ketorolac Tromethamine (Toradol Inj) 15 mg IV.PUSH Q6H PRN PRN Reason: PAIN SCALE 6 TO 10 Stop: 11/28/17 16:26 Lactobacillus Acidophilus (Lactinex) 1 tab PO BID [facility] Last Admin: 11/27/17 10:33 Dose: 1 tab Lactulose (Lactulose Liq) 30 ml PO DAILY PRN PRN Reason: SEVERE CONSITIPATION Lidocaine HCl (Lidoderm 5% Patch.12 Hr) 1 patch T-DERMAL DAILY [facility] Last Admin: 11/27/17 11:09 Dose: 1 patch Lorazepam (Ativan Inj) 2 mg IV.PUSH Q5M PRN PRN Reason: SEIZURES Ondansetron HCl (Zofran Inj) 4 mg IV.PUSH Q6H PRN PRN Reason: NAUSEA OR VOMITING Patch Removal (Remove Old Patch) 1 each T-DERMAL HS [facility] Last Admin: 11/26/17 22:12 Dose: 1 each Pravastatin Sodium (Pravachol) 40 mg PO DAILY [facility] Last Admin: 11/27/17 10:34 Dose: 40 mg Pregabalin (Lyrica) 200 mg PO TID [facility] Last Admin: 11/27/17 18:54 Dose: 200 mg Senna/Docusate Sodium (Kaylyn-Colace) 1 tab PO BID [facility] Last Admin: 11/27/17 10:34 Dose: Not Given Sennosides (Senokot) 17.2 mg PO Q12H PRN PRN Reason: Moderate Constipation Sodium Chloride (Ns Flush) 2 ml IV.FLUSH BID [facility] Last Admin: 11/27/17 10:34 Dose: Not Given Sodium Chloride (Ns Flush) 2 ml IV.FLUSH PRN PRN PRN Reason: FLUSH AFTER USING IV ACCESS Allergies/Adverse Reactions: Allergies Allergy/AdvReac Type Severity Reaction Status Date / Time No Known Allergies Allergy Unverified 11/23/17 02:03 Physical Exam Vital signs: Vital Signs 11/27/17 00:00 11/27/17 04:00 11/27/17 08:00 Temperature 98.1 F 98.7 F 99.2 F Pulse Rate 82 93 H 86 Respiratory Rate 16 18 20 Blood Pressure 153/76 H 142/73 H 150/86 H Pulse Oximetry 98 96 96 11/27/17 12:00 11/27/17 16:00 Temperature 98.1 F 98.2 F Pulse Rate 87 95 H Respiratory Rate 20 20 Blood Pressure 131/79 117/86 Pulse Oximetry 94 L 98 Intake & Output 11/27/17 11/27/17 11/28/17 06:59 18:59 06:59 Intake Total 1623.6 / 1623.6 Balance 1623.6 / 1623.6 Weight 70.8 kg Intake: IV 1623.6 / 1623.6 1623.6 / 1623.6 D5W Inj 1,000 ML @ 100 mls/hr 1000 / 1000 1000 / 1000 IV.CONT .Q10H [facility] Rx#:[id number] Zovirax Inj 680 MG In NS Inj 113.6 / 113.6 113.6 / 113.6 100 ML @ 113.6 mls/hr IV.SIG Q8H [facility] Rx#:[id number] KCl 10 mEq Premix Inj 10 meq In 300 / 300 200 / 200 100 ml @ 100 mls/hr IV.SIG Q1H [facility] Rx#:[id number] Depacon Inj 500 MG In NS Inj 210 / 210 210 / 210 100 ML @ 105 mls/hr IV.SIG Q6H [facility] Rx#:[id number] Rocephin Inj 1,000 MG In NS Inj 100 / 100 100 ML @ 200 mls/hr IV.SIG Q24H [facility] Rx#:[id number] Oral 360 / 360 Other: # Voids 8 3 Date of Last Bowel Movement 11/26/17 # Bowel Movements 5 3 Objective Laboratory Results - last 24 hr 11/27/17 11/27/17 11/27/17 06:26 06:26 13:46 WBC 14.5 H RBC 4.24 Hgb 13.4 Hct 39.0 MCV 92.0 MCH 31.6 MCHC 34.4 RDW 13.9 Plt Count 214 MPV 10.2 Neut % (Auto) 75.9 H Lymph % (Auto) 17.8 [place] % (Auto) 6.0 Eos % (Auto) 0.2 Baso % (Auto) 0.1 Neut # (Auto) 11.0 H Lymph # (Auto) 2.6 [place] # (Auto) 0.9 Eos # (Auto) 0.0 Baso # (Auto) 0.0 WBC Differential . Differential Comment Auto diff final Sodium 143 142 Potassium 2.6 L* 3.0 L Chloride 112 H 114 H Carbon Dioxide 17.2 L 16.7 L Anion Gap 14 11 BUN 4 L 3 L Creatinine 0.58 0.52 Estimated GFR Greater than 89 Greater than 89 Random Glucose 103 112 H Calcium 6.9 L* 6.9 L* Prot Corrected Calcium 7.9 L Phosphorus 1.5 L Magnesium 1.7 Total Protein 5.2 L Albumin 2.5 L Microbiology 11/24/17 21:00 Aerobic Blood Culture - Preliminary Blood - Peripheral No growth in 3 days Anaerobic Blood Culture - Preliminary No growth in 3 days 11/24/17 21:05 Aerobic Blood Culture - Preliminary Blood - Peripheral No growth in 3 days Anaerobic Blood Culture - Preliminary No growth in 3 days 11/24/17 13:08 Gram Stain - Final Lumbar Puncture CSF Culture - Final No growth in 72 hours 11/23/17 14:45 Enteric Pathogens (PCR) - Final Stool Norovirus Review/Management - Diagnosis (1) Altered mental status Code(s): R41.82 - Altered mental status, unspecified Status: Acute Current Visit: Yes - Review/Management Plan: subclinical sz ---improved with depakote (1) Altered mental status Qualifiers: Altered mental status type: unspecified Qualified Code(s): R41.82 - Altered mental status, unspecified
[2017-11-27] MEDS: Famotidine 20 MG Tablet PO SCH (23:50)
[2017-11-28 01:05] LABS: Creatinine,Urine Random 26 mg/dL (27-300)
[2017-11-28] MEDS: Valproate Inj 500 MG in Sodium Chlor 0.9% Inj 100 ML IV.SIG SCH ×4 (03:40→20:27)
[2017-11-28] MEDS: ACYCLOVIR IV.SIG SCH ×3 (03:40→17:59)
[2017-11-28] MEDS: SODIUM CHLOR 0.9% IV.SIG SCH ×3 (03:40→17:59)
[2017-11-28] MEDS: Sodium Bicarbonate 8.4% Inj 75 MEQ in Dextrose 5% in Water Inj 925 ML IV.CONT SCH ×8 (04:00→23:05)
[2017-11-28 08:49] LABS: Albumin 2.4 g/dL (3.4-5.0); Anion Gap 11 meq/L (5-15); Blood Urea Nitrogen 3 mg/dL (7-18); Carbon Dioxide 20.7 meq/L (21.0-32.0); Chloride 115 meq/L (98-107); Glomerular Filtration Rate Greater Than 89 mL/min (>89); Glucose,Random 85 mg/dL (74-106); Magnesium 1.9 mg/dL (1.5-2.5); Phosphorus 2.2 mg/dL (2.5-4.9); Potassium 3.4 meq/L (3.5-5.1); Sodium 147 meq/L (136-145)
[2017-11-28] MEDS: Heparin - SQ 10,000 UNITS/ML Vial SQ SCH ×2 (09:02→20:27)
[2017-11-28] MEDS: Famotidine 20 MG Tablet PO SCH ×2 (09:02→20:28)
[2017-11-28] MEDS: Lactobacillus Acidophilus/L. Spores Tablet PO SCH ×2 (09:02→20:28)
[2017-11-28 09:09] LABS: Calcium 6.9 mg/dL (8.5-10.1)
[2017-11-28] MEDS: Sodium Chloride 0.9% 2 ML Flush BID IV.FLUSH SCH ×2 (09:13→20:28)
[2017-11-28] MEDS: Senna/Docusate Sodium 8.6/50 MG Tablet PO SCH ×2 (09:13→20:27)
[2017-11-28] MEDS: Lidocaine 5% Patch T-DERMAL SCH (09:14)
--- NOTE | 2017-11-28 11:23 | P.PNNP ---
Subjective Interval history: This patient is a 61-year-old female apparently with a history of hypertension as well as chronic pain syndrome related to multiple lumbar spine surgeries who uses acetaminophen chronically on a daily basis. Also apparently the patient's nutritional intake has been somewhat poor for some time now per . Patient has lost about 60 pounds over several months and according to she is somewhat obsessive about her weight with diminished nutritional intake but he denies a history suggesting bulimia or laxative abuse. Denies diarrhea prior to admission. On presentation to the hospital she had evidence of altered mental status and there was evidence also of a mixed acid-base disorder with a respiratory alkalosis and normal anion gap acidosis although after hydration her albumin level noted to be low so her anion gap has to be corrected and may have been slightly elevated with subsequent hydration. Unfortunately the patient's had laboratory data going back to 2015 available and her acid-base status previously appeared to be normal with a normal potassium level for example January 2017 potassium was 4.1 and total bicarbonate level was 23. Patient has self can provide no meaningful history as she is very lethargic. 11/28/17 Pt more alert today, very conversive, but has to be redirected quite often. present. Reports worsening diarrhea and very poor oral intake. Discussed again about home nutritional status and again confirms that she is very strict on herself regarding her weight and usually only eats about 1 meal per day. Denies EtOH abuse or weight loss supplement (including laxative) abuse. <Tila Hawkins - Last Filed: 11/28/17 10:53> Physical Exam Vital signs: Vital Signs 11/27/17 12:00 11/27/17 16:00 11/27/17 20:00 Temperature 98.1 F 98.2 F 99.0 F Pulse Rate 82 104 H 107 H Respiratory Rate 20 20 16 Blood Pressure 131/79 117/86 134/89 Pulse Oximetry 94 L 98 94 L 11/28/17 00:00 11/28/17 04:00 Temperature 99.7 F H 98.9 F Pulse Rate 99 H 104 H Respiratory Rate 18 15 Blood Pressure 151/87 H 128/75 Pulse Oximetry 98 95 Intake & Output 11/27/17 11/28/17 11/28/17 18:59 06:59 18:59 Intake Total 1982.6 / 1982.6 2557.2 / 2557.2 1105 / 1105 Balance 1982.6 / 1982.6 2557.2 / 2557.2 1105 / 1105 Weight 71.6 kg Intake: IV 1623.6 / 1623.6 1897.2 / 1897.2 1105 / 1105 D5W Inj 1,000 ML @ 100 mls/hr 1000 / 1000 IV.CONT .Q10H [facility] Rx#:[id number] Sodium Bicarbonate 8.4% Inj 75 1000 / 1000 1000 / 1000 MEQ In D5W Inj 925 ML @ 100 mls /hr IV.CONT .Q10H [facility] Rx#: [id number] Zovirax Inj 680 MG In NS Inj 113.6 / 113.6 227.2 / 227.2 100 ML @ 113.6 mls/hr IV.SIG Q8H [facility] Rx#:[id number] KCl 10 mEq Premix Inj 10 meq In 200 / 200 200 / 200 100 ml @ 100 mls/hr IV.SIG Q1H [facility] Rx#:[id number] Potassium Phosphate Inj 30 MMOL 260 / 260 In NS Inj 250 ML @ 43.333 mls/ hr IV.SIG ONCE ONE Rx#:[id number] Depacon Inj 500 MG In NS Inj 210 / 210 210 / 210 105 / 105 100 ML @ 105 mls/hr IV.SIG Q6H [facility] Rx#:[id number] Rocephin Inj 1,000 MG In NS Inj 100 / 100 100 ML @ 200 mls/hr IV.SIG Q24H [facility] Rx#:[id number] Oral 360 / 360 660 / 660 Other: # Voids 3 5 Date of Last Bowel Movement 11/26/17 11/27/17 # Bowel Movements 3 2 - Constitutional no acute distress - Routine HEENT Exam Head: Present: normocephalic - Routine Neck Exam Present: supple - Routine Respiratory Exam Present: CTA bilaterally - Routine Cardiovascular Exam Present: RRR, S1, S2 - Routine Abdominal Exam Present: soft - Routine Extremities Exam Absent: edema - Routine Skin Exam Present: intact - Routine Neurological Exam Present: alert - Detailed Psychiatric Exam Thought process: Present: flight of ideas <Tila Hawkins - Last Filed: 11/28/17 10:53> Vital signs: Vital Signs 11/28/17 20:00 11/29/17 00:00 11/29/17 04:00 Temperature 97.4 F L 97.9 F Pulse Rate 108 H 94 H 96 H Respiratory Rate 18 18 Blood Pressure 144/73 H 149/80 H Pulse Oximetry 98 98 11/29/17 08:00 11/29/17 10:40 Temperature 98.0 F Pulse Rate 83 Respiratory Rate 20 Blood Pressure 100/66 Pulse Oximetry 99 98 Intake & Output 11/28/17 11/29/17 11/29/17 18:59 06:59 18:59 Intake Total 2903.6 / 2903.6 537.2 / 537.2 1205 / 1205 Balance 2903.6 / 2903.6 537.2 / 537.2 1205 / 1205 Weight 71.2 kg Intake: IV 2423.6 / 2423.6 537.2 / 537.2 1205 / 1205 Sodium Bicarbonate 8.4% Inj 75 2000 / 2000 1000 / 1000 MEQ In D5W Inj 925 ML @ 125 mls /hr IV.CONT .Q8H [facility] Rx#: [id number] Zovirax Inj 680 MG In NS Inj 113.6 / 113.6 227.2 / 227.2 100 ML @ 113.6 mls/hr IV.SIG Q8H [facility] Rx#:[id number] KCl 20 mEq Premix Inj 20 meq In 100 / 100 100 ml @ 50 mls/hr IV.SIG ONCE ONE Rx#:[id number] Depacon Inj 500 MG In NS Inj 210 / 210 210 / 210 105 / 105 100 ML @ 105 mls/hr IV.SIG Q6H [facility] Rx#:[id number] Rocephin Inj 1,000 MG In NS Inj 100 / 100 100 / 100 100 ML @ 200 mls/hr IV.SIG Q24H [facility] Rx#:[id number] Oral 480 / 480 Other: # Voids 4 5 Date of Last Bowel Movement 11/27/17 11/29/17 # Bowel Movements 6 <Shelley Avalos - Last Filed: 11/29/17 17:17> Assessment and Plan - Assessment (1) Acidosis, metabolic Code(s): E87.2 - Acidosis Status: Acute Plan: Etiology of the patient's chronic metabolic acidosis not entirely clear. is denying diarrhea prior to admission although she may be having loose stool in-house. Metabolic acidosis may be related to ongoing diarrhea although the is denying that the patient had diarrhea prior to admission and she did present with metabolic acidosis. Of interest the patient uses acetaminophen chronically i.e. Percocet and she does have a history suggestive of poor nutritional intake. Chronic high anion metabolic acidosis has been seen in malnourished women felt to be related to accumulation of 5-Oxoproline pyroglutamic acid. Etiology felt to be related to a deficiency of glutathione. Although the patient has a normal calculated anion gap I believe it is slightly elevated when you adjust for the low serum albumin. Interestingly this deficiency can be associated with mental status change. Acidosis has improved with IV fluids--continue Pending additional screening tests including glutathione. Again encouraged nutritional intake with the patient and her . (2) Hypokalemia Code(s): E87.6 - Hypokalemia Status: Acute Plan: May be related to ongoing nutritional deficit as well as diarrhea. Potassium improved and Mg level normal. Potentially from GI losses? Additional work up underway. Continue supplementation (3) Hypernatremia Code(s): E87.0 - Hyperosmolality and hypernatremia Status: Acute Plan: Related to free water deficit. Continue D5. Increase rate to 125mL/hr. As above, encourage po water intake. (4) Altered mental status Code(s): R41.82 - Altered mental status, unspecified Status: Acute Qualifiers: Altered mental status type: unspecified Qualified Code(s): R41.82 - Altered mental status, unspecified - Plan Work up underway. More conversive today, but easily distracted. Repeat EEG shows significant metabolic encephalopathy with no focal abnormality noted. No seizure activity was seen. BCx neg x3 days. Noted mild temp at 99.7 today. <Tila Hawkins - Last Filed: 11/28/17 10:53> - Assessment (1) Acidosis, metabolic Code(s): E87.2 - Acidosis Status: Acute (2) Hypokalemia Code(s): E87.6 - Hypokalemia Status: Acute (3) Hypernatremia Code(s): E87.0 - Hyperosmolality and hypernatremia Status: Acute (4) Altered mental status Code(s): R41.82 - Altered mental status, unspecified Status: Acute Qualifiers: Altered mental status type: unspecified Qualified Code(s): R41.82 - Altered mental status, unspecified - Attending Attestation The exam, history, and the medical decision-making described in the above note were completed with the assistance of the LAVERNE. I reviewed and agree with the findings presented. <Shelley Avalos - Last Filed: 11/29/17 17:17>
[2017-11-28] MEDS ORDERED: Potassium Chlor 20 mEq Premix 20 MEQ/100 ML PIGGYBACK IV.SIG ONE (16:07)
--- NOTE | 2017-11-28 17:25 | P.PNIM ---
Subjective Interval history: Patient was more talkative today. She continues to report diarrhea. Reports continued crampy abdominal discomfort after eating. No tenderness. Denies any chest pain or shortness of breath. Physical Exam Vital signs: Vital Signs 11/27/17 20:00 11/28/17 00:00 11/28/17 04:00 Temperature 99.0 F 99.7 F H 98.9 F Pulse Rate 107 H 99 H 104 H Respiratory Rate 16 18 15 Blood Pressure 134/89 151/87 H 128/75 Pulse Oximetry 94 L 98 95 11/28/17 08:00 11/28/17 12:00 11/28/17 13:02 Temperature Pulse Rate 104 H 99 H Respiratory Rate Blood Pressure Pulse Oximetry 97 Intake & Output 11/27/17 11/28/17 11/28/17 18:59 06:59 18:59 Intake Total 2557.2 / 2557.2 220 / 2204 Balance 2557.2 / 2557.2 2204 / 2204 Weight 71.6 kg Intake: IV 1623.6 / 1623.6 1897.2 / 1897.2 2204 / 5 D5W Inj 1,000 ML @ 100 mls/hr 1000 / 1000 IV.CONT .Q10H [facility] Rx#:[id number] Sodium Bicarbonate 8.4% Inj 75 1000 / 1000 2000 / 2000 MEQ In D5W Inj 925 ML @ 125 mls /hr IV.CONT .Q8H [facility] Rx#: [id number] Zovirax Inj 680 MG In NS Inj 113.6 / 113.6 227.2 / 227.2 100 ML @ 113.6 mls/hr IV.SIG Q8H [facility] Rx#:[id number] KCl 10 mEq Premix Inj 10 meq In 200 / 200 200 / 200 100 ml @ 100 mls/hr IV.SIG Q1H [facility] Rx#:[id number] Potassium Phosphate Inj 30 MMOL 260 / 260 In NS Inj 250 ML @ 43.333 mls/ hr IV.SIG ONCE ONE Rx#:[id number] Depacon Inj 500 MG In NS Inj 210 / 210 210 / 210 105 / 105 100 ML @ 105 mls/hr IV.SIG Q6H [facility] Rx#:[id number] Rocephin Inj 1,000 MG In NS Inj 100 / 100 100 / 100 100 ML @ 200 mls/hr IV.SIG Q24H [facility] Rx#:[id number] Oral 360 / 360 660 / 660 Other: # Voids 3 5 Date of Last Bowel Movement 11/26/17 11/27/17 11/27/17 # Bowel Movements 3 2 Narrative: GENERAL: Sitting up in bed. Appears comfortable. SKIN: Warm and dry. HEAD: Normocephalic. EYES: No scleral icterus. No injection or drainage. NECK: Supple, trachea midline. No JVD. CARDIOVASCULAR: Regular rate and rhythm without murmurs, gallops, or rubs. RESPIRATORY: Breath sounds equal bilaterally. No accessory muscle use. GASTROINTESTINAL: Abdomen soft, non-tender, nondistended. MUSCULOSKELETAL: No cyanosis, or edema. BACK: Nontender without obvious deformity. No CVA tenderness. Results - Labs CBC & Chem 7: 11/27/17 06:26 11/28/17 06:52 Laboratory Results - last 24 hr 11/24/17 11/27/17 11/27/17 13:08 21:26 22:36 Sodium Potassium Chloride Carbon Dioxide Anion Gap BUN Creatinine Estimated GFR POC Glucose 134 H Random Glucose Calcium Phosphorus Magnesium Total Protein (PEP) Albumin Ur Random Creatinine 26 L Ur Random Potassium 9 Misc Test Result 11/28/17 11/28/17 06:52 08:50 Sodium 147 H Potassium 3.4 L Chloride 115 H Carbon Dioxide 20.7 L Anion Gap 11 BUN 3 L Creatinine 0.50 Estimated GFR Greater than 89 POC Glucose 95 Random Glucose 85 Calcium 6.9 L* Phosphorus 2.2 L Magnesium 1.9 Total Protein (PEP) 4.7 L Albumin 2.4 L Ur Random Creatinine Ur Random Potassium Misc Test Result Microbiology 11/24/17 21:00 Blood - Peripheral Aerobic Blood Culture - Preliminary No growth in 4 days 11/24/17 21:00 Blood - Peripheral Anaerobic Blood Culture - Preliminary No growth in 4 days 11/24/17 21:05 Blood - Peripheral Aerobic Blood Culture - Preliminary No growth in 4 days 11/24/17 21:05 Blood - Peripheral Anaerobic Blood Culture - Preliminary No growth in 4 days Assessment and Plan - Plan 61-year-old female with a past medical history significant for hypertension, dyslipidemia, chronic back pain status post multiple lumbar surgeries on morphine, Percocet, Lyrica and Tizanidine who presents to [facility] ED with altered mental status/acute encephalopathy. Patient is unable to provide any history and therefore history is obtained from discussion with the who is at the bedside as well as review of electronic medical record. //Acute encephalopathy/altered mental status: acute, unclear etiology, possibly due to combination of polypharmacy and poor oral intake/dehydration. Rule out infection/stroke. No hx of psychiatric illness although psychiatric component may be contributing, exam waxes/wanes. -CT head reviewed and neg for any acute intracranial abnormality -UDS + opiates. Patient on morphine, Percocet, Lyrica and Tizanidine at home - holding all sedating medications -Ammonia level 10, CBC wnl, afebrile, CXR neg, images reviewed by me -Initial UA not indicative of UTI, however repeat UA with +nitrates, initiated IV Rocephin, await urine culture -Blood cultures with no growth to date -neuro checks, fall/seizure precautions, continuous cardiac monitoring -PT/OT/ST with swallow evaluation, currently NPO -EEG abnormal consistent with encephalopathy -RPR nonreactive, vit B12 321 -avoid all sedating medications, holding home Morphine, Percocet, Lyrica and Tizanidine -Supportive treatment with IVF - changed to D5 1/2 NS with KCl (Na 151 and K 3.0) -Consulted neurology with abnormal EEG, ordered LP and MRI -S/p LP 11/24 - CSF studies unremarkable so far, cultures pending -Started on empiric IV Acyclovir, HSV pending -Brain MRI 11/24 suboptimal exam secondary to motion artifact otherwise no acute findings -ESR 24/CRP 0.63 - not significantly elevated to be concerned for arteritis -Repeat EEG 11/24 concerned for status epilepticus, patient already on Keppra and now with worsening EEG, discussed with Dr. Nair, recommends with initiating IV Depakote -Dr. Nair recommending repeat EEG on 11/26 = Follow-up repeat EEG. Appears improved. Pending speech evaluation. = 11/27. Improved mentation. Repeat EEG without seizure activity, although does show metabolic encephalopathy. = 11/28. Again improving mentation. //Elevated troponin, mild: patient denying any chest pain to providers and denies any reported chest pain from the patient. Suspect demand ischemia from tachycardia -EKG with sinus tach, no evidence of ischemia -troponins flat 0.08, 0.13, 0.11 -continuous cardiac monitoring //Diarrhea: reports 3 watery incontinent BMs, continues to have diarrhea throughout admission -stool negative for C diff -enteric stool studies pending -give IVF hydration -start lactinex although patient not yet tolerating oral intake -avoid stool softeners -monitor BMs = Norovirus infection. Patient is on isolation. Will continue IV fluids. Continue to monitor. = 11/28. Continue symptomatic treatment. IV fluids. Continue to monitor. //UTI: Repeat UA 11/24 with +nitrates -Started on IV Rocephin 1g daily -Preliminary urine culture with gram negative rods, continue to monitor = Continue ceftriaxone for now. //Low TSH, 0.114 -Free T4 wnl -Outpatient f/up with PCP and repeat TSH/T4 //Hypernatremia/Hypokalemia: Na 151 and K 3.0. Suspect iatrogenic from IVF in combination with poor oral intake -change IVF from NS to D5W @ 84cc/hr with KCl replacement -Repeat BMP this afternoon and in am = Continues with hypernatremia despite D5 infusion. Will consult nephrology. = 11/27. Patient has been approved for diet. Hopefully this will improve hypokalemia. Hypophosphatemia with phosphorus of 1.5 today. We will continue IV fluids. = 11/27. Phosphorus improved to 2.2. Monitor. Hyponatremia as per nephrology. Appreciate assistance. //Non-anion gap metabolic acidosis. Likely secondary to bicarb loss from diarrhea. Continue symptom medic treatment. Continue to monitor. = Nephrology following. Appreciate assistance. //DVT prophylaxis -Heparin sq Discharge Planning: Discharge pending further clinical improvement. Patient still with encephalopathy/AMS. Not yet ready for discharge. Still with diarrhea, non-anion gap metabolic acidosis, metabolic encephalopathy.. We will need neurology clearance.
[2017-11-29] MEDS: SODIUM CHLOR 0.9% IV.SIG SCH ×3 (02:57→17:52)
[2017-11-29] MEDS: Valproate Inj 500 MG in Sodium Chlor 0.9% Inj 100 ML IV.SIG SCH ×4 (02:57→22:14)
[2017-11-29] MEDS: ACYCLOVIR IV.SIG SCH ×3 (02:57→17:52)
[2017-11-29] MEDS: Sodium Bicarbonate 8.4% Inj 75 MEQ in Dextrose 5% in Water Inj 925 ML IV.CONT SCH ×6 (05:04→15:59)
[2017-11-29 07:30] LABS: Alanine Aminotransferase 26 U/L (10-53); Albumin 2.2 g/dL (3.4-5.0); Alkaline Phosphatase 59 U/L (45-117); Anion Gap 11 meq/L (5-15); Aspartate Aminotransferase 12 U/L (15-37); Blood Urea Nitrogen 2 mg/dL (7-18); Carbon Dioxide 23.4 meq/L (21.0-32.0); Chloride 112 meq/L (98-107); Glomerular Filtration Rate Greater Than 89 mL/min (>89); Glucose,Random 104 mg/dL (74-106); Phosphorus 1.7 mg/dL (2.5-4.9); Sodium 146 meq/L (136-145); Total Protein 4.5 g/dL (6.4-8.2)
[2017-11-29 07:35] LABS: Calcium 7.2 mg/dL (8.5-10.1); Potassium 2.7 meq/L (3.5-5.1)
[2017-11-29] MEDS: Senna/Docusate Sodium 8.6/50 MG Tablet PO SCH ×2 (09:55→22:15)
[2017-11-29] MEDS: Lactobacillus Acidophilus/L. Spores Tablet PO SCH ×2 (09:55→22:14)
[2017-11-29] MEDS: Famotidine 20 MG Tablet PO SCH ×2 (09:55→22:14)
[2017-11-29] MEDS: Heparin - SQ 10,000 UNITS/ML Vial SQ SCH ×2 (09:56→22:15)
[2017-11-29] MEDS: Lidocaine 5% Patch T-DERMAL SCH (09:57)
[2017-11-29] MEDS: Sodium Chloride 0.9% 2 ML Flush BID IV.FLUSH SCH ×2 (09:58→22:15)
[2017-11-29] MEDS ORDERED: Potassium Phosphate Inj 15 MMOL in Sodium Chlor 0.9% Inj 150 ML IV.SIG ONE (11:00)
[2017-11-29 12:59] LABS: Bacteria,Urine Rare /hpf; Bilirubin,Urine Negative (Negative); Clarity,Urine Clear (Clear); Color,Urine Yellow (Yellw/Straw); Glucose,Urine (UA) Negative (Negative); Leukocyte Esterase,Urine Negative (Negative); Mucus,Urine Few /lpf (Occasional); Nitrite,Urine Negative (Negative); Specific Gravity,Urine 1.004 (1.002-1.035); Squamous Epithelial Cell,Urine <1 /hpf (0-5)
--- NOTE | 2017-11-29 13:17 | P.PNIM ---
Subjective Interval history: Patient continues with abdominal cramping, loose stools. Denies any nausea or vomiting Physical Exam Vital signs: Vital Signs 11/28/17 16:00 11/28/17 20:00 11/29/17 00:00 Temperature 98.1 F 97.4 F L Pulse Rate 100 H 108 H 94 H Respiratory Rate 20 18 Blood Pressure 135/75 144/73 H Pulse Oximetry 98 98 11/29/17 04:00 11/29/17 08:00 11/29/17 10:40 Temperature 97.9 F 98.0 F Pulse Rate 96 H 83 Respiratory Rate 18 20 Blood Pressure 149/80 H 100/66 Pulse Oximetry 98 99 98 Intake & Output 11/28/17 11/29/17 11/29/17 18:59 06:59 18:59 Intake Total 2903.6 / 2903.6 537.2 / 537.2 1205 / 1205 Balance 2903.6 / 2903.6 537.2 / 537.2 1205 / 1205 Weight 71.2 kg Intake: IV 2423.6 / 2423.6 537.2 / 537.2 1205 / 1205 Sodium Bicarbonate 8.4% Inj 75 2000 / 2000 1000 / 1000 MEQ In D5W Inj 925 ML @ 125 mls /hr IV.CONT .Q8H [facility] Rx#: [id number] Zovirax Inj 680 MG In NS Inj 113.6 / 113.6 227.2 / 227.2 100 ML @ 113.6 mls/hr IV.SIG Q8H [facility] Rx#:[id number] KCl 20 mEq Premix Inj 20 meq In 100 / 100 100 ml @ 50 mls/hr IV.SIG ONCE ONE Rx#:[id number] Depacon Inj 500 MG In NS Inj 210 / 210 210 / 210 105 / 105 100 ML @ 105 mls/hr IV.SIG Q6H [facility] Rx#:[id number] Rocephin Inj 1,000 MG In NS Inj 100 / 100 100 / 100 100 ML @ 200 mls/hr IV.SIG Q24H [facility] Rx#:[id number] Oral 480 / 480 Other: # Voids 4 5 Date of Last Bowel Movement 11/27/17 11/29/17 # Bowel Movements 6 Narrative: GENERAL: Sitting up in bed. Appears comfortable. Alert. SKIN: Warm and dry. HEAD: Normocephalic. EYES: No scleral icterus. No injection or drainage. NECK: Supple, trachea midline. No JVD. CARDIOVASCULAR: Regular rate and rhythm without murmurs, gallops, or rubs. RESPIRATORY: Breath sounds equal bilaterally. No accessory muscle use. GASTROINTESTINAL: Abdomen soft, non-tender, nondistended. MUSCULOSKELETAL: No cyanosis, or edema. BACK: Nontender without obvious deformity. No CVA tenderness. Results - Labs CBC & Chem 7: 11/27/17 06:26 11/29/17 05:55 Laboratory Results - last 24 hr 11/28/17 11/29/17 11/29/17 17:46 05:55 07:25 Sodium 146 H Potassium 2.7 L* Chloride 112 H Carbon Dioxide 23.4 Anion Gap 11 BUN 2 L Creatinine 0.56 Estimated GFR Greater than 89 POC Glucose 143 H 104 Random Glucose 104 Osmolality 288 Calcium 7.2 L* Phosphorus 1.7 L Total Bilirubin 0.2 Direct Bilirubin 0.1 Indirect Bilirubin 0.1 AST 12 L ALT 26 Alkaline Phosphatase 59 Total Protein 4.5 L D Albumin 2.2 L Vitamin D 25-Hydroxy 22.7 L Urine Color Urine Clarity Urine pH Ur Specific [place] Urine Protein Urine Glucose (UA) Urine Ketones Urine Occult Blood Urine Nitrate Urine Bilirubin Urine Urobilinogen Ur Leukocyte Esterase Urine RBC Urine WBC Ur Squamous Epith Cells Urine Bacteria Urine Mucus Ur Microscopic Review Urine Osmolality 11/29/17 11/29/17 11/29/17 12:17 12:30 12:30 Sodium Potassium Chloride Carbon Dioxide Anion Gap BUN Creatinine Estimated GFR POC Glucose 112 H Random Glucose Osmolality Calcium Phosphorus Total Bilirubin Direct Bilirubin Indirect Bilirubin AST ALT Alkaline Phosphatase Total Protein Albumin Vitamin D 25-Hydroxy Urine Color Yellow Urine Clarity Clear Urine pH 7.0 Ur Specific [place] 1.004 Urine Protein Negative Urine Glucose (UA) Negative Urine Ketones Negative Urine Occult Blood Negative Urine Nitrate Negative Urine Bilirubin Negative Urine Urobilinogen Less than 2 Ur Leukocyte Esterase Negative Urine RBC 5 H Urine WBC 2 Ur Squamous Epith Cells <1 Urine Bacteria Rare H Urine Mucus Few H Ur Microscopic Review Not Reportable Urine Osmolality 163 L Microbiology 11/24/17 21:00 Blood - Peripheral Aerobic Blood Culture - Final No growth in 5 days 11/24/17 21:00 Blood - Peripheral Anaerobic Blood Culture - Final No growth in 5 days 11/24/17 21:05 Blood - Peripheral Aerobic Blood Culture - Final No growth in 5 days 11/24/17 21:05 Blood - Peripheral Anaerobic Blood Culture - Final No growth in 5 days Assessment and Plan - Plan 61-year-old female with a past medical history significant for hypertension, dyslipidemia, chronic back pain status post multiple lumbar surgeries on morphine, Percocet, Lyrica and Tizanidine who presents to [facility] ED with altered mental status/acute encephalopathy. Patient is unable to provide any history and therefore history is obtained from discussion with the who is at the bedside as well as review of electronic medical record. //Acute encephalopathy/altered mental status: acute, unclear etiology, possibly due to combination of polypharmacy and poor oral intake/dehydration. Rule out infection/stroke. No hx of psychiatric illness although psychiatric component may be contributing, exam waxes/wanes. -CT head reviewed and neg for any acute intracranial abnormality -UDS + opiates. Patient on morphine, Percocet, Lyrica and Tizanidine at home - holding all sedating medications -Ammonia level 10, CBC wnl, afebrile, CXR neg, images reviewed by me -Initial UA not indicative of UTI, however repeat UA with +nitrates, initiated IV Rocephin, await urine culture -Blood cultures with no growth to date -neuro checks, fall/seizure precautions, continuous cardiac monitoring -PT/OT/ST with swallow evaluation, currently NPO -EEG abnormal consistent with encephalopathy -RPR nonreactive, vit B12 321 -avoid all sedating medications, holding home Morphine, Percocet, Lyrica and Tizanidine -Supportive treatment with IVF - changed to D5 1/2 NS with KCl (Na 151 and K 3.0) -Consulted neurology with abnormal EEG, ordered LP and MRI -S/p LP 11/24 - CSF studies unremarkable so far, cultures pending -Started on empiric IV Acyclovir, HSV pending -Brain MRI 11/24 suboptimal exam secondary to motion artifact otherwise no acute findings -ESR 24/CRP 0.63 - not significantly elevated to be concerned for arteritis -Repeat EEG 11/24 concerned for status epilepticus, patient already on Keppra and now with worsening EEG, discussed with Dr. Nair, recommends with initiating IV Depakote -Dr. Nair recommending repeat EEG on 11/26 = Follow-up repeat EEG. Appears improved. Pending speech evaluation. = 11/27. Improved mentation. Repeat EEG without seizure activity, although does show metabolic encephalopathy. = 11/28. Again improving mentation. = 11/29. Improving mentation. //Elevated troponin, mild: patient denying any chest pain to providers and denies any reported chest pain from the patient. Suspect demand ischemia from tachycardia -EKG with sinus tach, no evidence of ischemia -troponins flat 0.08, 0.13, 0.11 -continuous cardiac monitoring //Diarrhea: reports 3 watery incontinent BMs, continues to have diarrhea throughout admission -stool negative for C diff -enteric stool studies pending -give IVF hydration -start lactinex although patient not yet tolerating oral intake -avoid stool softeners -monitor BMs = Norovirus infection. Patient is on isolation. Will continue IV fluids. Continue to monitor. = 11/29. Continue symptomatic treatment. IV fluids. Continue to monitor. GI following. Appreciate assistance. //UTI: Repeat UA 11/24 with +nitrates -Started on IV Rocephin 1g daily -Preliminary urine culture with gram negative rods, continue to monitor = Continue ceftriaxone for now. //Low TSH, 0.114 -Free T4 wnl -Outpatient f/up with PCP and repeat TSH/T4 //Hypernatremia/Hypokalemia: Na 151 and K 3.0. Suspect iatrogenic from IVF in combination with poor oral intake -change IVF from NS to D5W @ 84cc/hr with KCl replacement -Repeat BMP this afternoon and in am = Continues with hypernatremia despite D5 infusion. Will consult nephrology. = 11/27. Patient has been approved for diet. Hopefully this will improve hypokalemia. Hypophosphatemia with phosphorus of 1.5 today. We will continue IV fluids. = 11/27. Phosphorus improved to 2.2. Monitor. Hyponatremia as per nephrology. Appreciate assistance. = 11/29. Hypokalemia. 2.7. Replace and monitor. //Hypophosphatemia. 1.7. Replace and monitor. //Non-anion gap metabolic acidosis. Likely secondary to bicarb loss from diarrhea. Continue symptom medic treatment. Continue to monitor. = Nephrology following. Appreciate assistance. = Continues on IV fluids. Nephrology following. Appreciate assistance. //DVT prophylaxis -Heparin sq Discharge Planning: Discharge pending further clinical improvement. Patient still with encephalopathy/AMS. Not yet ready for discharge. Still with diarrhea, non-anion gap metabolic acidosis, metabolic encephalopathy.. We will need neurology clearance.
--- NOTE | 2017-11-29 13:25 | P.CONGI ---
History of Present Illness Consult date: 11/29/17 Consult reason: Persistent diarrhea norovirus positive Chief complaint: AMS, hyperthyroid, elevated troponin History of Present Illness: This is a 61-year-old female with a past medical history that significant for hypertension, dyslipidemia, chronic lower back pain. Patient has had multiple lumbar surgeries and is currently taking morphine, Percocet and Lyrica. Patient states she is under pain management care in the [facility]. This service has been consulted for patient's report of continued fatigue and loose stools since the day of admission on November 23, 2017. At that time patient presented to the emergency room with complaints of painful urination and diarrhea. Patient spouse states that she became altered and had not been taking her normal pain medications for several days prior. Upon admission patient was incontinent of watery stools x3. On consultation today patient reports some fatigue with lower abdominal cramps that she experiences after meals. Patient is currently on a cardiac diet and denies any nausea or vomiting. Per patient and spouse stools were very frequent up until 2 days ago. She states she was having watery brown stools without any noted blood about 8-10 times a day. Today patient reports that stools are forming better and are now "like soft baby food". Patient states she had 4 episodes this a.m. very small amounts. She reports appetite is improving on the cardiac diet. Patient denies any recent travel or contacts with sick individuals recently. Patient states she has never had an EGD or colonoscopy. She reports positive family history for colon cancer-her dad. Patient smokes less than a pack per day and states she does not drink alcohol due to the amount of pain medications for her chronic back pain.This service is being consulted for evaluation of persistent diarrhea norovirus positive. At this time it appears that patient's frequency of stools are lessening and stools are gaining consistency and form. <Roya Valderrama - Last Filed: 11/29/17 13:25> Review of Systems All other systems reviewed negative except as stated in HPI <Roya Valderrama - Last Filed: 11/29/17 13:25> PMFSH - History History Provided By: Family Member, Medical Record - Medical History Medical History: Medical History (Last Reviewed 11/27/17 @ 09:27 by Andie Oseguera) HTN (hypertension) Chronic pain Hyperlipidemia - Surgical History Surgical History: Surgical History (Last Reviewed 11/27/17 @ 09:27 by Andie Oseguera) Previous back surgery - Family History Family History: Family History (Last Updated 11/23/17 @ 09:18 by Delores Chavez) Father Colon cancer - Tobacco History Second Hand Smoke Exposure: No Smoking Status: Current every day smoker Tobacco Type: Cigarettes Packs Per Day: 0.5 - Alcohol History How Often Do You Have a Drink Containing Alcohol: Never - Substance Use History Substance History: No History of Abuse - Travel History Recent Travel in the [place] Within the Last 8 Weeks: No Recent Travel Out of the Country Within the Last 8 Weeks: No - Immunization History Tetanus Immunization: >5 Years Hx Influenza Vaccine This Season: No <Roya Valderrama - Last Filed: 11/29/17 13:25> - Medical History Medical History: Medical History (Last Reviewed 11/27/17 @ 09:27 by Andie Oseguera) HTN (hypertension) Chronic pain Hyperlipidemia - Surgical History Surgical History: Surgical History (Last Reviewed 11/27/17 @ 09:27 by Andie Oseguera) Previous back surgery - Family History Family History: Family History (Last Updated 11/23/17 @ 09:18 by Delores Chavez) Father Colon cancer <Criss Malone - Last Filed: 11/29/17 13:50> Medications and Allergies Active Medications: Active Medications Al Hydroxide/Mg Hydroxide (Milk Of Magnnuris Liq) 30 ml PO Q12H PRN PRN Reason: Mild Constipation Bisacodyl (Dulcolax Supp) 10 mg RECTAL DAILY PRN PRN Reason: SEVERE CONSITIPATION Cyanocobalamin (Vitamin B12 Inj) 1,000 mcg IM Q7D [facility] Stop: 12/15/17 16:01 Last Admin: 11/24/17 16:14 Dose: 1,000 mcg Dextrose (D50w Vial) 50 ml IV.PUSH UNSCH PRN PRN Reason: PER HYPOGLYCEMIA PROTOCOL Dicyclomine HCl (Bentyl) 20 mg PO TID [facility] Famotidine (Pepcid) 20 mg PO BID [facility] Last Admin: 11/29/17 09:55 Dose: 20 mg Glucagon (Glucagon Inj) 1 mg OTHER UNSCH PRN PRN Reason: for Hypoglycemia Protocol Heparin Sodium (Porcine) (Heparin Inj) 5,000 units SQ Q12HR [facility] Last Admin: 11/29/17 09:56 Dose: 5,000 units Ceftriaxone Sodium 1,000 mg/ (Sodium Chloride) 100 mls @ 200 mls/hr IV.SIG Q24H [facility] Last Infusion: 11/29/17 10:55 Dose: Infused Acyclovir Sodium 680 mg/ (Sodium Chloride) 113.6 mls @ 113.6 mls/hr IV.SIG Q8H [facility] Last Admin: 11/29/17 12:13 Dose: 113 mls/hr Valproate Sodium 500 mg/ (Sodium Chloride) 105 mls @ 105 mls/hr IV.SIG Q6H [facility] Last Infusion: 11/29/17 10:56 Dose: Infused Sodium Bicarbonate 75 meq/ (Dextrose) 1,000 mls @ 125 mls/hr IV.CONT .Q8H [facility] Last Admin: 11/29/17 09:58 Dose: 100 mls/hr Potassium Phosphate 15 mmol/ (Sodium Chloride) 155 mls @ 38.75 mls/hr IV.SIG ONCE ONE Stop: 11/29/17 14:59 Lactobacillus Acidophilus (Lactinex) 1 tab PO BID [facility] Last Admin: 11/29/17 09:55 Dose: 1 tab Lactulose (Lactulose Liq) 30 ml PO DAILY PRN PRN Reason: SEVERE CONSITIPATION Lidocaine HCl (Lidoderm 5% Patch.12 Hr) 1 patch T-DERMAL DAILY [facility] Last Admin: 11/29/17 09:57 Dose: 1 patch Lorazepam (Ativan Inj) 2 mg IV.PUSH Q5M PRN PRN Reason: SEIZURES Ondansetron HCl (Zofran Inj) 4 mg IV.PUSH Q6H PRN PRN Reason: NAUSEA OR VOMITING Patch Removal (Remove Old Patch) 1 each T-DERMAL HS [facility] Last Admin: 11/28/17 20:28 Dose: 1 each Pravastatin Sodium (Pravachol) 40 mg PO DAILY [facility] Last Admin: 11/29/17 09:55 Dose: 40 mg Pregabalin (Lyrica) 200 mg PO TID [facility] Last Admin: 11/29/17 12:14 Dose: 200 mg Senna/Docusate Sodium (Kaylyn-Colace) 1 tab PO BID [facility] Last Admin: 11/29/17 09:55 Dose: Not Given Sennosides (Senokot) 17.2 mg PO Q12H PRN PRN Reason: Moderate Constipation Sodium Chloride (Ns Flush) 2 ml IV.FLUSH BID [facility] Last Admin: 11/29/17 09:58 Dose: Not Given Sodium Chloride (Ns Flush) 2 ml IV.FLUSH PRN PRN PRN Reason: FLUSH AFTER USING IV ACCESS <Roya Valderrama - Last Filed: 11/29/17 13:25> Active Medications: Active Medications Al Hydroxide/Mg Hydroxide (Milk Of Magnesia Liq) 30 ml PO Q12H PRN PRN Reason: Mild Constipation Bisacodyl (Dulcolax Supp) 10 mg RECTAL DAILY PRN PRN Reason: SEVERE CONSITIPATION Cyanocobalamin (Vitamin B12 Inj) 1,000 mcg IM Q7D [facility] Stop: 12/15/17 16:01 Last Admin: 11/24/17 16:14 Dose: 1,000 mcg Dextrose (D50w Vial) 50 ml IV.PUSH UNSCH PRN PRN Reason: PER HYPOGLYCEMIA PROTOCOL Dicyclomine HCl (Bentyl) 20 mg PO TID [facility] Famotidine (Pepcid) 20 mg PO BID [facility] Last Admin: 11/29/17 09:55 Dose: 20 mg Glucagon (Glucagon Inj) 1 mg OTHER UNSCH PRN PRN Reason: for Hypoglycemia Protocol Heparin Sodium (Porcine) (Heparin Inj) 5,000 units SQ Q12HR [facility] Last Admin: 11/29/17 09:56 Dose: 5,000 units Ceftriaxone Sodium 1,000 mg/ (Sodium Chloride) 100 mls @ 200 mls/hr IV.SIG Q24H [facility] Last Infusion: 11/29/17 10:55 Dose: Infused Acyclovir Sodium 680 mg/ (Sodium Chloride) 113.6 mls @ 113.6 mls/hr IV.SIG Q8H [facility] Last Admin: 11/29/17 12:13 Dose: 113 mls/hr Valproate Sodium 500 mg/ (Sodium Chloride) 105 mls @ 105 mls/hr IV.SIG Q6H [facility] Last Infusion: 11/29/17 10:56 Dose: Infused Sodium Bicarbonate 75 meq/ (Dextrose) 1,000 mls @ 125 mls/hr IV.CONT .Q8H [facility] Last Admin: 11/29/17 09:58 Dose: 100 mls/hr Potassium Phosphate 15 mmol/ (Sodium Chloride) 155 mls @ 38.75 mls/hr IV.SIG ONCE ONE Stop: 11/29/17 14:59 Lactobacillus Acidophilus (Lactinex) 1 tab PO BID [facility] Last Admin: 11/29/17 09:55 Dose: 1 tab Lactulose (Lactulose Liq) 30 ml PO DAILY PRN PRN Reason: SEVERE CONSITIPATION Lidocaine HCl (Lidoderm 5% Patch.12 Hr) 1 patch T-DERMAL DAILY [facility] Last Admin: 11/29/17 09:57 Dose: 1 patch Lorazepam (Ativan Inj) 2 mg IV.PUSH Q5M PRN PRN Reason: SEIZURES Ondansetron HCl (Zofran Inj) 4 mg IV.PUSH Q6H PRN PRN Reason: NAUSEA OR VOMITING Patch Removal (Remove Old Patch) 1 each T-DERMAL HS [facility] Last Admin: 11/28/17 20:28 Dose: 1 each Pravastatin Sodium (Pravachol) 40 mg PO DAILY [facility] Last Admin: 11/29/17 09:55 Dose: 40 mg Pregabalin (Lyrica) 200 mg PO TID [facility] Last Admin: 11/29/17 12:14 Dose: 200 mg Senna/Docusate Sodium (Kaylyn-Colace) 1 tab PO BID [facility] Last Admin: 11/29/17 09:55 Dose: Not Given Sennosides (Senokot) 17.2 mg PO Q12H PRN PRN Reason: Moderate Constipation Sodium Chloride (Ns Flush) 2 ml IV.FLUSH BID [facility] Last Admin: 11/29/17 09:58 Dose: Not Given Sodium Chloride (Ns Flush) 2 ml IV.FLUSH PRN PRN PRN Reason: FLUSH AFTER USING IV ACCESS <Criss Malone - Last Filed: 11/29/17 13:50> Allergies Allergy/AdvReac Type Severity Reaction Status Date / Time No Known Allergies Allergy Unverified 11/23/17 02:03 Home Medications Medication Instructions Recorded Confirmed Type lisinopril 30 mg PO DAILY 11/23/17 11/23/17 History morphine 30 mg PO BID 11/23/17 11/23/17 History oxycodone-acetaminophen [Percocet] 1 tab PO Q8H PRN 11/23/17 11/23/17 History pravastatin 40 mg PO DAILY 11/23/17 11/23/17 History pregabalin [Lyrica] 200 mg PO TID 11/23/17 11/23/17 History tizanidine 4 mg PO DAILY 11/23/17 11/23/17 History Exam Vital signs: Vital Signs 11/28/17 16:00 11/28/17 20:00 11/29/17 00:00 Temperature 98.1 F 97.4 F L Pulse Rate 100 H 108 H 94 H Respiratory Rate 20 18 Blood Pressure 135/75 144/73 H Pulse Oximetry 98 98 11/29/17 04:00 11/29/17 08:00 11/29/17 10:40 Temperature 97.9 F 98.0 F Pulse Rate 96 H 83 Respiratory Rate 18 20 Blood Pressure 149/80 H 100/66 Pulse Oximetry 98 99 98 Intake & Output 11/28/17 11/29/17 11/29/17 18:59 06:59 18:59 Intake Total 2903.6 / 2903.6 537.2 / 537.2 1205 / 1205 Balance 2903.6 / 2903.6 537.2 / 537.2 1205 / 1205 Weight 71.2 kg Intake: IV 2423.6 / 2423.6 537.2 / 537.2 1205 / 1205 Sodium Bicarbonate 8.4% Inj 75 2000 / 2000 1000 / 1000 MEQ In D5W Inj 925 ML @ 125 mls /hr IV.CONT .Q8H [facility] Rx#: [id number] Zovirax Inj 680 MG In NS Inj 113.6 / 113.6 227.2 / 227.2 100 ML @ 113.6 mls/hr IV.SIG Q8H [facility] Rx#:[id number] KCl 20 mEq Premix Inj 20 meq In 100 / 100 100 ml @ 50 mls/hr IV.SIG ONCE ONE Rx#:[id number] Depacon Inj 500 MG In NS Inj 210 / 210 210 / 210 105 / 105 100 ML @ 105 mls/hr IV.SIG Q6H [facility] Rx#:[id number] Rocephin Inj 1,000 MG In NS Inj 100 / 100 100 / 100 100 ML @ 200 mls/hr IV.SIG Q24H [facility] Rx#:[id number] Oral 480 / 480 Other: # Voids 4 5 Date of Last Bowel Movement 11/27/17 11/29/17 # Bowel Movements 6 - Constitutional no acute distress, mild distress, cooperative - Routine HEENT Exam Head: Present: normocephalic - Routine Respiratory Exam Present: CTA bilaterally. Absent: accessory muscle use, respiratory distress - Routine Cardiovascular Exam Present: RRR - Routine Abdominal Exam Present: soft, normoactive bowel sounds, tenderness. Absent: distended, guarding, firm Comments: bilateral lower quadrant tenderness with depp palpation on exam - Routine Extremities Exam Present: full ROM, pulses intact. Absent: edema - Routine Skin Exam Present: dry, warm - Routine Neurological Exam Present: alert, oriented X3 <Valderrama,Roya - Last Filed: 11/29/17 13:25> Vital signs: Vital Signs 11/28/17 16:00 11/28/17 20:00 11/29/17 00:00 Temperature 98.1 F 97.4 F L Pulse Rate 100 H 108 H 94 H Respiratory Rate 20 18 Blood Pressure 135/75 144/73 H Pulse Oximetry 98 98 11/29/17 04:00 11/29/17 08:00 11/29/17 10:40 Temperature 97.9 F 98.0 F Pulse Rate 96 H 83 Respiratory Rate 18 20 Blood Pressure 149/80 H 100/66 Pulse Oximetry 98 99 98 Intake & Output 11/28/17 11/29/17 11/29/17 18:59 06:59 18:59 Intake Total 2903.6 / 2903.6 537.2 / 537.2 1205 / 1205 Balance 2903.6 / 2903.6 537.2 / 537.2 1205 / 1205 Weight 71.2 kg Intake: IV 2423.6 / 2423.6 537.2 / 537.2 1205 / 1205 Sodium Bicarbonate 8.4% Inj 75 2000 / 2000 1000 / 1000 MEQ In D5W Inj 925 ML @ 125 mls /hr IV.CONT .Q8H [facility] Rx#: [id number] Zovirax Inj 680 MG In NS Inj 113.6 / 113.6 227.2 / 227.2 100 ML @ 113.6 mls/hr IV.SIG Q8H [facility] Rx#:[id number] KCl 20 mEq Premix Inj 20 meq In 100 / 100 100 ml @ 50 mls/hr IV.SIG ONCE ONE Rx#:[id number] Depacon Inj 500 MG In NS Inj 210 / 210 210 / 210 105 / 105 100 ML @ 105 mls/hr IV.SIG Q6H [facility] Rx#:[id number] Rocephin Inj 1,000 MG In NS Inj 100 / 100 100 / 100 100 ML @ 200 mls/hr IV.SIG Q24H [facility] Rx#:[id number] Oral 480 / 480 Other: # Voids 4 5 Date of Last Bowel Movement 11/27/17 11/29/17 # Bowel Movements 6 <Criss Malone - Last Filed: 11/29/17 13:50> Results - Labs CBC & Chem 7: 11/27/17 06:26 11/29/17 05:55 Labs: Laboratory Results - last 24 hr 11/28/17 11/29/17 11/29/17 17:46 05:55 07:25 Sodium 146 H Potassium 2.7 L* Chloride 112 H Carbon Dioxide 23.4 Anion Gap 11 BUN 2 L Creatinine 0.56 Estimated GFR Greater than 89 POC Glucose 143 H 104 Random Glucose 104 Osmolality 288 Calcium 7.2 L* Phosphorus 1.7 L Total Bilirubin 0.2 Direct Bilirubin 0.1 Indirect Bilirubin 0.1 AST 12 L ALT 26 Alkaline Phosphatase 59 Total Protein 4.5 L D Albumin 2.2 L Vitamin D 25-Hydroxy 22.7 L Urine Color Urine Clarity Urine pH Ur Specific [place] Urine Protein Urine Glucose (UA) Urine Ketones Urine Occult Blood Urine Nitrate Urine Bilirubin Urine Urobilinogen Ur Leukocyte Esterase Urine RBC Urine WBC Ur Squamous Epith Cells Urine Bacteria Urine Mucus Ur Microscopic Review Urine Osmolality 11/29/17 11/29/17 11/29/17 12:17 12:30 12:30 Sodium Potassium Chloride Carbon Dioxide Anion Gap BUN Creatinine Estimated GFR POC Glucose 112 H Random Glucose Osmolality Calcium Phosphorus Total Bilirubin Direct Bilirubin Indirect Bilirubin AST ALT Alkaline Phosphatase Total Protein Albumin Vitamin D 25-Hydroxy Urine Color Yellow Urine Clarity Clear Urine pH 7.0 Ur Specific [place] 1.004 Urine Protein Negative Urine Glucose (UA) Negative Urine Ketones Negative Urine Occult Blood Negative Urine Nitrate Negative Urine Bilirubin Negative Urine Urobilinogen Less than 2 Ur Leukocyte Esterase Negative Urine RBC 5 H Urine WBC 2 Ur Squamous Epith Cells <1 Urine Bacteria Rare H Urine Mucus Few H Ur Microscopic Review Not Reportable Urine Osmolality 163 L <Roya Valderrama - Last Filed: 11/29/17 13:25> - Labs CBC & Chem 7: 11/27/17 06:26 11/29/17 05:55 Labs: Laboratory Results - last 24 hr 11/28/17 11/29/17 11/29/17 17:46 05:55 07:25 Sodium 146 H Potassium 2.7 L* Chloride 112 H Carbon Dioxide 23.4 Anion Gap 11 BUN 2 L Creatinine 0.56 Estimated GFR Greater than 89 POC Glucose 143 H 104 Random Glucose 104 Osmolality 288 Calcium 7.2 L* Phosphorus 1.7 L Total Bilirubin 0.2 Direct Bilirubin 0.1 Indirect Bilirubin 0.1 AST 12 L ALT 26 Alkaline Phosphatase 59 Total Protein 4.5 L D Albumin 2.2 L Vitamin D 25-Hydroxy 22.7 L Urine Color Urine Clarity Urine pH Ur Specific [place] Urine Protein Urine Glucose (UA) Urine Ketones Urine Occult Blood Urine Nitrate Urine Bilirubin Urine Urobilinogen Ur Leukocyte Esterase Urine RBC Urine WBC Ur Squamous Epith Cells Urine Bacteria Urine Mucus Ur Microscopic Review Urine Osmolality 11/29/17 11/29/17 11/29/17 12:17 12:30 12:30 Sodium Potassium Chloride Carbon Dioxide Anion Gap BUN Creatinine Estimated GFR POC Glucose 112 H Random Glucose Osmolality Calcium Phosphorus Total Bilirubin Direct Bilirubin Indirect Bilirubin AST ALT Alkaline Phosphatase Total Protein Albumin Vitamin D 25-Hydroxy Urine Color Yellow Urine Clarity Clear Urine pH 7.0 Ur Specific [place] 1.004 Urine Protein Negative Urine Glucose (UA) Negative Urine Ketones Negative Urine Occult Blood Negative Urine Nitrate Negative Urine Bilirubin Negative Urine Urobilinogen Less than 2 Ur Leukocyte Esterase Negative Urine RBC 5 H Urine WBC 2 Ur Squamous Epith Cells <1 Urine Bacteria Rare H Urine Mucus Few H Ur Microscopic Review Not Reportable Urine Osmolality 163 L <Criss Malone - Last Filed: 11/29/17 13:50> Assessment and Plan (1) Diarrhea Status: Acute Code(s): R19.7 - Diarrhea, unspecified - Plan his is a 61-year-old female with a past medical history that significant for hypertension, dyslipidemia, chronic lower back pain. Patient has had multiple lumbar surgeries and is currently taking morphine, Percocet and Lyrica. Patient states she is under pain management care in the [facility]. This service has been consulted for patient's report of continued fatigue and loose stools since the day of admission on November 23, 2017. At that time patient presented to the emergency room with complaints of painful urination and diarrhea. Patient spouse states that she became altered and had not been taking her normal pain medications for several days prior. Upon admission patient was incontinent of watery stools x3. On consultation today patient reports some fatigue with lower abdominal cramps that she experiences after meals. Patient is currently on a cardiac diet and denies any nausea or vomiting. Denies heartburn or difficulty swallowing. Per patient and spouse stools were very frequent up until 2 days ago. She states she was having watery brown stools without any noted blood about 8-10 times a day. Today patient reports that stools are forming better and are now "like soft baby food ". Patient states she had 4 episodes this a.m. very small amounts. She reports appetite is improving on the cardiac diet. Patient denies any recent travel or contacts with sick individuals recently. Patient states she has never had an EGD or colonoscopy. She reports positive family history for colon cancer-her dad. Patient smokes less than a pack per day and states she does not drink alcohol due to the amount of pain medications for her chronic back pain.This service is being consulted for evaluation of persistent diarrhea norovirus positive. At this time it appears that patient's frequency of stools are lessening and stools are gaining consistency and form. 11/29/17 Persistent diarrhea-normal virus positive: Patient reporting 4 episodes this a.m. very small amounts brown stool forming now consistency of "baby food". Microbiology results noted stool positive for normal virus negative for Giardia and negative for C. difficile. Patient currently on Lactinex, Pepcid and IV hydration. We will continue to monitor. Plan: -Cardiac diet as tolerated -Lactinex -Continue IV hydration -Bentyl for abdominal cramping -Supportive care -Further recommendations to follow This patient has been seen by myself and Dr. Malone and this note is written on his behalf - Attending Attestation Dr. Malone <Roya Valderrama - Last Filed: 11/29/17 13:25> (1) Diarrhea Status: Acute Code(s): R19.7 - Diarrhea, unspecified - Plan Seen and examined with [employer], diarrhea improving. Stools +ve for Noro virus. Expect symptoms to resolve soon. Add Bentyl and immodium as needed. Possible colonoscopy next week if patient agrees. Discussed with Dr Thompson and in the room. Thank you The exam, history, and the medical decision-making described in the above note were completed with the assistance of the mid-level provider. I reviewed and agree with the findings presented. I attest that I had a [id number] encounter with the patient on the same day, and personally performed and documented my assessment and findings in the medical record. <Criss Malone - Last Filed: 11/29/17 13:50>
--- NOTE | 2017-11-29 17:20 | P.PNNP ---
Subjective Interval history: Patient indicating that she is feeling better. Still having soft stools but no wesley diarrhea. Physical Exam Vital signs: Vital Signs 11/28/17 20:00 11/29/17 00:00 11/29/17 04:00 Temperature 97.4 F L 97.9 F Pulse Rate 108 H 94 H 96 H Respiratory Rate 18 18 Blood Pressure 144/73 H 149/80 H Pulse Oximetry 98 98 11/29/17 08:00 11/29/17 10:40 Temperature 98.0 F Pulse Rate 83 Respiratory Rate 20 Blood Pressure 100/66 Pulse Oximetry 99 98 Intake & Output 11/28/17 11/29/17 11/29/17 18:59 06:59 18:59 Intake Total 2903.6 / 2903.6 537.2 / 537.2 1205 / 1205 Balance 2903.6 / 2903.6 537.2 / 537.2 1205 / 1205 Weight 71.2 kg Intake: IV 2423.6 / 2423.6 537.2 / 537.2 1205 / 1205 Sodium Bicarbonate 8.4% Inj 75 2000 / 2000 1000 / 1000 MEQ In D5W Inj 925 ML @ 125 mls /hr IV.CONT .Q8H [facility] Rx#: [id number] Zovirax Inj 680 MG In NS Inj 113.6 / 113.6 227.2 / 227.2 100 ML @ 113.6 mls/hr IV.SIG Q8H [facility] Rx#:[id number] KCl 20 mEq Premix Inj 20 meq In 100 / 100 100 ml @ 50 mls/hr IV.SIG ONCE ONE Rx#:[id number] Depacon Inj 500 MG In NS Inj 210 / 210 210 / 210 105 / 105 100 ML @ 105 mls/hr IV.SIG Q6H [facility] Rx#:[id number] Rocephin Inj 1,000 MG In NS Inj 100 / 100 100 / 100 100 ML @ 200 mls/hr IV.SIG Q24H [facility] Rx#:[id number] Oral 480 / 480 Other: # Voids 4 5 Date of Last Bowel Movement 11/27/17 11/29/17 # Bowel Movements 6 Narrative: GENERAL: Sitting up in bed. Appears comfortable. Alert. SKIN: Warm and dry. HEAD: Normocephalic. EYES: No scleral icterus. NECK: Supple, trachea midline. No JVD. CARDIOVASCULAR: Regular rate and rhythm without murmurs, gallops, or rubs. RESPIRATORY: Breath sounds equal bilaterally. No accessory muscle use. GASTROINTESTINAL: Abdomen soft, non-tender, nondistended. MUSCULOSKELETAL: No cyanosis, or edema. Assessment and Plan - Assessment (1) Acidosis, metabolic Code(s): E87.2 - Acidosis Status: Acute Plan: Etiology of the patient's chronic metabolic acidosis not entirely clear. is denying diarrhea prior to admission although she may be having loose stool in-house. Metabolic acidosis may be related to ongoing diarrhea although the is denying that the patient had diarrhea prior to admission and she did present with metabolic acidosis. Of interest the patient uses acetaminophen chronically i.e. Percocet and she does have a history suggestive of poor nutritional intake. Chronic high anion metabolic acidosis has been seen in malnourished women felt to be related to accumulation of 5-Oxoproline pyroglutamic acid. Etiology felt to be related to a deficiency of glutathione. Although the patient has a normal calculated anion gap I believe it is slightly elevated when you adjust for the low serum albumin. Interestingly this deficiency can be associated with mental status change. Acidosis resolved. Reduce IV rate at this point in time. Potassium chloride added to IV fluids and the patient has received a p.o. dose of potassium chloride also today. Neutra-Phos for phosphate supplementation also. Pending additional screening tests including glutathione. Again encouraged nutritional intake with the patient and her . (2) Hypokalemia Code(s): E87.6 - Hypokalemia Status: Acute Plan: May be related to ongoing nutritional deficit as well as diarrhea. Potassium improved and Mg level normal. Potentially from GI losses? Additional work up underway. Continue supplementation (3) Hypernatremia Code(s): E87.0 - Hyperosmolality and hypernatremia Status: Acute Plan: Related to free water deficit. Continue D5. Increase rate to 125mL/hr. As above, encourage po water intake. (4) Altered mental status Code(s): R41.82 - Altered mental status, unspecified Status: Acute Qualifiers: Altered mental status type: unspecified Qualified Code(s): R41.82 - Altered mental status, unspecified - Plan Work up underway. More conversive today, but easily distracted. Repeat EEG shows significant metabolic encephalopathy with no focal abnormality noted. No seizure activity was seen. BCx neg x3 days. Noted mild temp at 99.7 today.
[2017-11-29] MEDS: Potassium Phos/Sodium Phos 250 MG Tablet PO SCH (18:36)
[2017-11-30] MEDS: SODIUM CHLOR 0.9% IV.SIG SCH ×2 (01:19→17:50)
[2017-11-30] MEDS: ACYCLOVIR IV.SIG SCH ×2 (01:19→17:50)
[2017-11-30] MEDS: Valproate Inj 500 MG in Sodium Chlor 0.9% Inj 100 ML IV.SIG SCH ×4 (04:00→22:26)
[2017-11-30] MEDS: Famotidine 20 MG Tablet PO SCH ×2 (10:08→22:24)
[2017-11-30] MEDS: Senna/Docusate Sodium 8.6/50 MG Tablet PO SCH ×2 (10:09→22:25)
[2017-11-30] MEDS: Heparin - SQ 10,000 UNITS/ML Vial SQ SCH ×2 (10:09→22:25)
[2017-11-30] MEDS: Lactobacillus Acidophilus/L. Spores Tablet PO SCH (10:09)
[2017-11-30] MEDS: Lidocaine 5% Patch T-DERMAL SCH (10:10)
[2017-11-30 10:59] LABS: Baso # (Auto) 0.1 th/mm3 (0.0-0.2); Baso % (Auto) 0.6 % (0.0-2.0); Eos # (Auto) 0.2 th/mm3 (0.0-0.4); Eos % (Auto) 1.6 % (0.0-4.0); Hematocrit 37.3 % (35.0-46.0); Hemoglobin 12.6 gm/dL (11.6-15.3); Lymph % (Auto) 20.1 % (9.0-44.0); Mean Corpuscular HGB Conc 33.9 % (32.0-36.0); Mean Corpuscular Hemoglobin 31.7 pg (27.0-34.0); Mean Corpuscular Volume 93.6 fL (80.0-100.0); Mean Platelet Volume 10.9 fL (7.0-11.0); Mono # (Auto) 1.3 th/mm3 (0.0-0.9); Mono % (Auto) 8.9 % (0.0-8.0); Neut # (Auto) 10.3 th/mm3 (1.8-7.7); Neut % (Auto) 68.8 % (16.0-70.0); Platelet Count 271 th/mm3 (150-450); Red Blood Count 3.99 mil/mm3 (4.00-5.30); Red Cell Distribution Width 14.4 % (11.6-17.2)
[2017-11-30 11:14] LABS: Albumin 2.4 g/dL (3.4-5.0); Anion Gap 10 meq/L (5-15); Blood Urea Nitrogen 1 mg/dL (7-18); Calcium 7.5 mg/dL (8.5-10.1); Carbon Dioxide 27.6 meq/L (21.0-32.0); Chloride 107 meq/L (98-107); Glomerular Filtration Rate Greater Than 89 mL/min (>89); Glucose,Random 85 mg/dL (74-106); Phosphorus 2.6 mg/dL (2.5-4.9); Sodium 145 meq/L (136-145)
[2017-11-30 11:15] LABS: Potassium 4.4 meq/L (3.5-5.1)
[2017-11-30] MEDS: Sodium Chloride 0.9% 2 ML Flush BID IV.FLUSH SCH ×2 (11:37→22:25)
[2017-11-30] MEDS: Potassium Phos/Sodium Phos 250 MG Tablet PO SCH ×3 (12:57→17:58)
--- NOTE | 2017-11-30 13:14 | P.PNGI ---
Subjective Interval history: Patient sitting up in bed, spouse visiting. Patient reporting appetite much improved denies any nausea or vomiting. States stools continue to be loose and denies any bleeding. Reports continued back pain which is chronic in nature. <Roya Valderrama - Last Filed: 11/30/17 13:14> Physical Exam Vital signs: Vital Signs 11/29/17 16:00 11/29/17 20:00 11/29/17 23:45 Temperature 98.1 F 98.6 F Pulse Rate 92 H 115 H 95 H Respiratory Rate 20 18 Blood Pressure 112/84 116/82 Pulse Oximetry 99 95 11/30/17 00:00 11/30/17 03:51 11/30/17 04:00 Temperature 98.8 F 99.1 F Pulse Rate 95 H 96 H 94 H Respiratory Rate 18 18 Blood Pressure 124/74 125/78 Pulse Oximetry 98 98 11/30/17 04:02 11/30/17 08:00 11/30/17 12:00 Temperature 99.2 F 99.0 F Pulse Rate 70 83 96 H Respiratory Rate 18 18 Blood Pressure 122/59 L 136/74 Pulse Oximetry 100 97 Intake & Output 11/29/17 11/30/17 11/30/17 18:59 06:59 18:59 Intake Total 3172.2 / 3172.2 720 / 720 1010 / 1010 Balance 3172.2 / 3172.2 720 / 720 1010 / 1010 Weight 71.3 kg Intake: IV 2692.2 / 2692.2 720 / 720 1010 / 1010 Sodium Bicarbonate 8.4% Inj 75 1500 / 1500 MEQ In D5W Inj 925 ML @ 125 mls /hr IV.CONT .Q8H [facility] Rx#: [id number] Sodium Bicarbonate 8.4% Inj 75 500 / 500 510 / 510 1010 / 1010 MEQ KCl Inj 20 MEQ In D5W Inj 925 ML @ 100 mls/hr IV.CONT . Q10H6M [facility] Rx#:[id number] Zovirax Inj 680 MG In NS Inj 227.2 / 227.2 100 ML @ 113.6 mls/hr IV.SIG Q8H [facility] Rx#:[id number] Potassium Phosphate Inj 15 MMOL 155 / 155 In NS Inj 150 ML @ 38.75 mls/ hr IV.SIG ONCE ONE Rx#:[id number] Depacon Inj 500 MG In NS Inj 210 / 210 210 / 210 100 ML @ 105 mls/hr IV.SIG Q6H [facility] Rx#:[id number] Rocephin Inj 1,000 MG In NS Inj 100 / 100 100 ML @ 200 mls/hr IV.SIG Q24H [facility] Rx#:[id number] Oral 480 / 480 Other: # Voids 6 7 Date of Last Bowel Movement 11/29/17 11/29/17 # Bowel Movements 6 - Constitutional no acute distress - Routine HEENT Exam Head: Present: normocephalic Eye: Absent: conjunctival icterus - Routine Respiratory Exam Present: CTA bilaterally. Absent: accessory muscle use - Routine Cardiovascular Exam Present: RRR - Routine Abdominal Exam Present: soft, normoactive bowel sounds, tenderness. Absent: distended, guarding, firm, rigid Comments: Patient reports lower quadrant tenderness on palpation - Routine Extremities Exam Present: full ROM, pulses intact. Absent: edema - Routine Skin Exam Present: dry, warm - Routine Neurological Exam Present: alert, oriented X3 - Detailed Neurological Exam: Coma Scale Eye Opening: Spontaneous Verbal Response: Oriented Motor Response: Obey commands [place] Coma Scale Total: 15 - Routine Psychiatric Exam Present: normal affect, cooperative <Valderrama,Roya - Last Filed: 11/30/17 13:14> Vital signs: Vital Signs 11/29/17 16:00 11/29/17 20:00 11/29/17 23:45 Temperature 98.1 F 98.6 F Pulse Rate 92 H 115 H 95 H Respiratory Rate 20 18 Blood Pressure 112/84 116/82 Pulse Oximetry 99 95 11/30/17 00:00 11/30/17 03:51 11/30/17 04:00 Temperature 98.8 F 99.1 F Pulse Rate 95 H 96 H 94 H Respiratory Rate 18 18 Blood Pressure 124/74 125/78 Pulse Oximetry 98 98 11/30/17 04:02 11/30/17 08:00 11/30/17 12:00 Temperature 99.2 F 99.0 F Pulse Rate 70 83 96 H Respiratory Rate 18 18 Blood Pressure 122/59 L 136/74 Pulse Oximetry 100 97 Intake & Output 11/29/17 11/30/17 11/30/17 18:59 06:59 18:59 Intake Total 3172.2 / 3172.2 720 / 720 1010 / 1010 Balance 3172.2 / 3172.2 720 / 720 1010 / 1010 Weight 71.3 kg Intake: IV 2692.2 / 2692.2 720 / 720 1010 / 1010 Sodium Bicarbonate 8.4% Inj 75 1500 / 1500 MEQ In D5W Inj 925 ML @ 125 mls /hr IV.CONT .Q8H [facility] Rx#: [id number] Sodium Bicarbonate 8.4% Inj 75 500 / 500 510 / 510 1010 / 1010 MEQ KCl Inj 20 MEQ In D5W Inj 925 ML @ 100 mls/hr IV.CONT . Q10H6M [facility] Rx#:[id number] Zovirax Inj 680 MG In NS Inj 227.2 / 227.2 100 ML @ 113.6 mls/hr IV.SIG Q8H [facility] Rx#:[id number] Potassium Phosphate Inj 15 MMOL 155 / 155 In NS Inj 150 ML @ 38.75 mls/ hr IV.SIG ONCE ONE Rx#:[id number] Depacon Inj 500 MG In NS Inj 210 / 210 210 / 210 100 ML @ 105 mls/hr IV.SIG Q6H [facility] Rx#:[id number] Rocephin Inj 1,000 MG In NS Inj 100 / 100 100 ML @ 200 mls/hr IV.SIG Q24H [facility] Rx#:[id number] Oral 480 / 480 Other: # Voids 6 7 Date of Last Bowel Movement 11/29/17 11/29/17 # Bowel Movements 6 <Criss Malone - Last Filed: 11/30/17 15:44> Results - Labs CBC & Chem 7: 11/30/17 10:26 11/30/17 10:26 Laboratory Results - last 24 hr 11/29/17 11/30/17 11/30/17 12:30 10:26 10:26 WBC 15.0 H RBC 3.99 L Hgb 12.6 Hct 37.3 MCV 93.6 MCH 31.7 MCHC 33.9 RDW 14.4 Plt Count 271 MPV 10.9 Neut % (Auto) 68.8 Lymph % (Auto) 20.1 [place] % (Auto) 8.9 H Eos % (Auto) 1.6 Baso % (Auto) 0.6 Neut # (Auto) 10.3 H Lymph # (Auto) 3.0 [place] # (Auto) 1.3 H Eos # (Auto) 0.2 Baso # (Auto) 0.1 WBC Differential . Differential Comment Auto diff final Sodium 145 Potassium 4.4 D Chloride 107 Carbon Dioxide 27.6 Anion Gap 10 BUN 1 L Creatinine 0.57 Estimated GFR Greater than 89 POC Glucose Random Glucose 85 Calcium 7.5 L Phosphorus 2.6 Albumin 2.4 L Urine Eosinophils None seen 11/30/17 11:35 WBC RBC Hgb Hct MCV MCH MCHC RDW Plt Count MPV Neut % (Auto) Lymph % (Auto) [place] % (Auto) Eos % (Auto) Baso % (Auto) Neut # (Auto) Lymph # (Auto) [place] # (Auto) Eos # (Auto) Baso # (Auto) WBC Differential Differential Comment Sodium Potassium Chloride Carbon Dioxide Anion Gap BUN Creatinine Estimated GFR POC Glucose 100 Random Glucose Calcium Phosphorus Albumin Urine Eosinophils Microbiology 11/24/17 21:00 Blood - Peripheral Aerobic Blood Culture - Final No growth in 5 days 11/24/17 21:00 Blood - Peripheral Anaerobic Blood Culture - Final No growth in 5 days 11/24/17 21:05 Blood - Peripheral Aerobic Blood Culture - Final No growth in 5 days 11/24/17 21:05 Blood - Peripheral Anaerobic Blood Culture - Final No growth in 5 days <Roya Valderrama - Last Filed: 11/30/17 13:14> - Labs CBC & Chem 7: 11/30/17 10:26 11/30/17 10:26 Laboratory Results - last 24 hr 11/30/17 11/30/17 11/30/17 10:26 10:26 11:35 WBC 15.0 H RBC 3.99 L Hgb 12.6 Hct 37.3 MCV 93.6 MCH 31.7 MCHC 33.9 RDW 14.4 Plt Count 271 MPV 10.9 Neut % (Auto) 68.8 Lymph % (Auto) 20.1 [place] % (Auto) 8.9 H Eos % (Auto) 1.6 Baso % (Auto) 0.6 Neut # (Auto) 10.3 H Lymph # (Auto) 3.0 [place] # (Auto) 1.3 H Eos # (Auto) 0.2 Baso # (Auto) 0.1 WBC Differential . Differential Comment Auto diff final Sodium 145 Potassium 4.4 D Chloride 107 Carbon Dioxide 27.6 Anion Gap 10 BUN 1 L Creatinine 0.57 Estimated GFR Greater than 89 POC Glucose 100 Random Glucose 85 Calcium 7.5 L Phosphorus 2.6 Albumin 2.4 L <FaisalCriss - Last Filed: 11/30/17 15:44> Assessment and Plan (1) Diarrhea Status: Acute Code(s): R19.7 - Diarrhea, unspecified - Plan his is a 61-year-old female with a past medical history that significant for hypertension, dyslipidemia, chronic lower back pain. Patient has had multiple lumbar surgeries and is currently taking morphine, Percocet and Lyrica. Patient states she is under pain management care in the [facility]. This service has been consulted for patient's report of continued fatigue and loose stools since the day of admission on November 23, 2017. At that time patient presented to the emergency room with complaints of painful urination and diarrhea. Patient spouse states that she became altered and had not been taking her normal pain medications for several days prior. Upon admission patient was incontinent of watery stools x3. On consultation today patient reports some fatigue with lower abdominal cramps that she experiences after meals. Patient is currently on a cardiac diet and denies any nausea or vomiting. Denies heartburn or difficulty swallowing. Per patient and spouse stools were very frequent up until 2 days ago. She states she was having watery brown stools without any noted blood about 8-10 times a day. Today patient reports that stools are forming better and are now "like soft baby food ". Patient states she had 4 episodes this a.m. very small amounts. She reports appetite is improving on the cardiac diet. Patient denies any recent travel or contacts with sick individuals recently. Patient states she has never had an EGD or colonoscopy. She reports positive family history for colon cancer-her dad. Patient smokes less than a pack per day and states she does not drink alcohol due to the amount of pain medications for her chronic back pain.This service is being consulted for evaluation of persistent diarrhea norovirus positive. At this time it appears that patient's frequency of stools are lessening and stools are gaining consistency and form. 11/29/17 Persistent diarrhea-normal virus positive: Patient reporting 4 episodes this a.m. very small amounts brown stool forming now consistency of "baby food". Microbiology results noted stool positive for normal virus negative for Giardia and negative for C. difficile. Patient currently on Lactinex, Pepcid and IV hydration. We will continue to monitor. 11/30/2017 Patient reports loose stools x 2 this a.m. states appetite much improved. Symptoms should be resolving. Possibility for colonoscopy next week. 11/30/2017 hemoglobin 12.6 hematocrit 37.3. Plan -Diet as tolerated -Continue IV hydration -Continue Lactinex and Bentyl -Supportive care -Further recommendations to follow This patient has been seen by myself and Dr. Malone and this note is written on his behalf - Attending Attestation Dr. 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 Bentyl/ immodium. Colonoscopy recommended. <Criss Malone - Last Filed: 11/30/17 15:44>
--- NOTE | 2017-11-30 15:16 | P.PNIM ---
Subjective Interval history: She says that abdominal cramping continues. Denies any chest pain or shortness of breath. Denies nausea vomiting. Physical Exam Vital signs: Vital Signs 11/29/17 16:00 11/29/17 20:00 11/29/17 23:45 Temperature 98.1 F 98.6 F Pulse Rate 92 H 115 H 95 H Respiratory Rate 20 18 Blood Pressure 112/84 116/82 Pulse Oximetry 99 95 11/30/17 00:00 11/30/17 03:51 11/30/17 04:00 Temperature 98.8 F 99.1 F Pulse Rate 95 H 96 H 94 H Respiratory Rate 18 18 Blood Pressure 124/74 125/78 Pulse Oximetry 98 98 11/30/17 04:02 11/30/17 08:00 11/30/17 12:00 Temperature 99.2 F 99.0 F Pulse Rate 70 83 96 H Respiratory Rate 18 18 Blood Pressure 122/59 L 136/74 Pulse Oximetry 100 97 Intake & Output 11/29/17 11/30/17 11/30/17 18:59 06:59 18:59 Intake Total 3172.2 / 3172.2 720 / 720 1010 / 1010 Balance 3172.2 / 3172.2 720 / 720 1010 / 1010 Weight 71.3 kg Intake: IV 2692.2 / 2692.2 720 / 720 1010 / 1010 Sodium Bicarbonate 8.4% Inj 75 1500 / 1500 MEQ In D5W Inj 925 ML @ 125 mls /hr IV.CONT .Q8H [facility] Rx#: [id number] Sodium Bicarbonate 8.4% Inj 75 500 / 500 510 / 510 1010 / 1010 MEQ KCl Inj 20 MEQ In D5W Inj 925 ML @ 100 mls/hr IV.CONT . Q10H6M [facility] Rx#:[id number] Zovirax Inj 680 MG In NS Inj 227.2 / 227.2 100 ML @ 113.6 mls/hr IV.SIG Q8H [facility] Rx#:[id number] Potassium Phosphate Inj 15 MMOL 155 / 155 In NS Inj 150 ML @ 38.75 mls/ hr IV.SIG ONCE ONE Rx#:[id number] Depacon Inj 500 MG In NS Inj 210 / 210 210 / 210 100 ML @ 105 mls/hr IV.SIG Q6H [facility] Rx#:[id number] Rocephin Inj 1,000 MG In NS Inj 100 / 100 100 ML @ 200 mls/hr IV.SIG Q24H [facility] Rx#:[id number] Oral 480 / 480 Other: # Voids 6 7 Date of Last Bowel Movement 11/29/17 11/29/17 # Bowel Movements 6 Narrative: GENERAL: Sleeping, wakes up for exam.. Appears comfortable. Alert. SKIN: Warm and dry. HEAD: Normocephalic. EYES: No scleral icterus. NECK: Supple, trachea midline. No JVD. CARDIOVASCULAR: Regular rate and rhythm without murmurs, gallops, or rubs. RESPIRATORY: Breath sounds equal bilaterally. No accessory muscle use. GASTROINTESTINAL: Abdomen soft, non-tender, nondistended. MUSCULOSKELETAL: No cyanosis, or edema. Results - Labs CBC & Chem 7: 11/30/17 10:26 11/30/17 10:26 Laboratory Results - last 24 hr 11/30/17 11/30/17 11/30/17 10:26 10:26 11:35 WBC 15.0 H RBC 3.99 L Hgb 12.6 Hct 37.3 MCV 93.6 MCH 31.7 MCHC 33.9 RDW 14.4 Plt Count 271 MPV 10.9 Neut % (Auto) 68.8 Lymph % (Auto) 20.1 [place] % (Auto) 8.9 H Eos % (Auto) 1.6 Baso % (Auto) 0.6 Neut # (Auto) 10.3 H Lymph # (Auto) 3.0 [place] # (Auto) 1.3 H Eos # (Auto) 0.2 Baso # (Auto) 0.1 WBC Differential . Differential Comment Auto diff final Sodium 145 Potassium 4.4 D Chloride 107 Carbon Dioxide 27.6 Anion Gap 10 BUN 1 L Creatinine 0.57 Estimated GFR Greater than 89 POC Glucose 100 Random Glucose 85 Calcium 7.5 L Phosphorus 2.6 Albumin 2.4 L Assessment and Plan - Plan 61-year-old female with a past medical history significant for hypertension, dyslipidemia, chronic back pain status post multiple lumbar surgeries on morphine, Percocet, Lyrica and Tizanidine who presents to [facility] ED with altered mental status/acute encephalopathy. Patient is unable to provide any history and therefore history is obtained from discussion with the who is at the bedside as well as review of electronic medical record. //Acute encephalopathy/altered mental status: acute, unclear etiology, possibly due to combination of polypharmacy and poor oral intake/dehydration. Rule out infection/stroke. No hx of psychiatric illness although psychiatric component may be contributing, exam waxes/wanes. -CT head reviewed and neg for any acute intracranial abnormality -UDS + opiates. Patient on morphine, Percocet, Lyrica and Tizanidine at home - holding all sedating medications -Ammonia level 10, CBC wnl, afebrile, CXR neg, images reviewed by me -Initial UA not indicative of UTI, however repeat UA with +nitrates, initiated IV Rocephin, await urine culture -Blood cultures with no growth to date -neuro checks, fall/seizure precautions, continuous cardiac monitoring -PT/OT/ST with swallow evaluation, currently NPO -EEG abnormal consistent with encephalopathy -RPR nonreactive, vit B12 321 -avoid all sedating medications, holding home Morphine, Percocet, Lyrica and Tizanidine -Supportive treatment with IVF - changed to D5 1/2 NS with KCl (Na 151 and K 3.0) -Consulted neurology with abnormal EEG, ordered LP and MRI -S/p LP 11/24 - CSF studies unremarkable so far, cultures pending -Started on empiric IV Acyclovir, HSV pending -Brain MRI 11/24 suboptimal exam secondary to motion artifact otherwise no acute findings -ESR 24/CRP 0.63 - not significantly elevated to be concerned for arteritis -Repeat EEG 11/24 concerned for status epilepticus, patient already on Keppra and now with worsening EEG, discussed with Dr. Nair, recommends with initiating IV Depakote -Dr. Nair recommending repeat EEG on 11/26 = Follow-up repeat EEG. Appears improved. Pending speech evaluation. = 11/27. Improved mentation. Repeat EEG without seizure activity, although does show metabolic encephalopathy. = 11/28. Again improving mentation. = 11/29. Improving mentation. = 11/30. Mentation back to baseline. Continue medication regimen as per neurology. Appreciate assistance. //Elevated troponin, mild: patient denying any chest pain to providers and denies any reported chest pain from the patient. Suspect demand ischemia from tachycardia -EKG with sinus tach, no evidence of ischemia -troponins flat 0.08, 0.13, 0.11 -continuous cardiac monitoring = Patient continues without chest pain. //Sepsis //Acute community-acquired Norovirus infection //Diarrhea: reports 3 watery incontinent BMs, continues to have diarrhea throughout admission -stool negative for C diff -enteric stool studies pending -give IVF hydration -start lactinex although patient not yet tolerating oral intake -avoid stool softeners -monitor BMs = Norovirus infection. Patient is on isolation. Will continue IV fluids. Continue to monitor. = 11/29. Continue symptomatic treatment. IV fluids. Continue to monitor. GI following. Appreciate assistance. = 11/30. With leukocytosis up to 15 today. Tachycardia continues. Sepsis secondary to acute community-acquired norovirus infection. Continue symptomatic treatment. Appreciate GI assistance. //UTI: Repeat UA 11/24 with +nitrates -Started on IV Rocephin 1g daily -Preliminary urine culture with gram negative rods, continue to monitor = Discontinue ceftriaxone status post 3+ days treatment. Patient without symptoms. //Low TSH, 0.114 -Free T4 wnl -Outpatient f/up with PCP and repeat TSH/T4 //Hypernatremia/Hypokalemia: Na 151 and K 3.0. Suspect iatrogenic from IVF in combination with poor oral intake -change IVF from NS to D5W @ 84cc/hr with KCl replacement -Repeat BMP this afternoon and in am = Continues with hypernatremia despite D5 infusion. Will consult nephrology. = 11/27. Patient has been approved for diet. Hopefully this will improve hypokalemia. Hypophosphatemia with phosphorus of 1.5 today. We will continue IV fluids. = 11/27. Phosphorus improved to 2.2. Monitor. Hyponatremia as per nephrology. Appreciate assistance. = 11/29. Hypokalemia. 2.7. Replace and monitor. //Hypophosphatemia. improved after placement. Continue to monitor. //Non-anion gap metabolic acidosis. Likely secondary to bicarb loss from diarrhea. Continue symptom medic treatment. Continue to monitor. = Nephrology following. Appreciate assistance. = Improved on IV fluids. Nephrology following. Appreciate assistance. //DVT prophylaxis -Heparin sq Discharge Planning: Discharge pending further clinical improvement. Patient still with encephalopathy/AMS. Not yet ready for discharge. Still with diarrhea, non-anion gap metabolic acidosis, metabolic encephalopathy.. We will need neurology clearance.
--- NOTE | 2017-11-30 20:03 | P.PNNEU ---
Subjective Subjective Comments: no new neurologic sx. Has remained alert and communicative Active Medications: Active Medications Al Hydroxide/Mg Hydroxide (Milk Of Magnesia Liq) 30 ml PO Q12H PRN PRN Reason: Mild Constipation Bisacodyl (Dulcolax Supp) 10 mg RECTAL DAILY PRN PRN Reason: SEVERE CONSITIPATION Cyanocobalamin (Vitamin B12 Inj) 1,000 mcg IM Q7D [facility] Stop: 12/15/17 16:01 Last Admin: 11/24/17 16:14 Dose: 1,000 mcg Dextrose (D50w Vial) 50 ml IV.PUSH UNSCH PRN PRN Reason: PER HYPOGLYCEMIA PROTOCOL Dicyclomine HCl (Bentyl) 20 mg PO TID [facility] Last Admin: 11/30/17 17:58 Dose: 20 mg Famotidine (Pepcid) 20 mg PO BID [facility] Last Admin: 11/30/17 10:08 Dose: 20 mg Glucagon (Glucagon Inj) 1 mg OTHER UNSCH PRN PRN Reason: for Hypoglycemia Protocol Heparin Sodium (Porcine) (Heparin Inj) 5,000 units SQ Q12HR [facility] Last Admin: 11/30/17 10:09 Dose: 5,000 units Valproate Sodium 500 mg/ (Sodium Chloride) 105 mls @ 105 mls/hr IV.SIG Q6H [facility] Last Infusion: 11/30/17 17:39 Dose: Infused Sodium Bicarbonate 75 meq/Potassium Chloride 20 meq/Dextrose 1,010 mls @ 50 mls /hr IV.CONT .[id number] [facility] Last Admin: 11/30/17 17:40 Dose: 100 mls/hr Lactulose (Lactulose Liq) 30 ml PO DAILY PRN PRN Reason: SEVERE CONSITIPATION Lidocaine HCl (Lidoderm 5% Patch.12 Hr) 1 patch T-DERMAL DAILY [facility] Last Admin: 11/30/17 10:10 Dose: 1 patch Loperamide HCl (Imodium) 2 mg PO Q6H PRN PRN Reason: DIARRHEA Lorazepam (Ativan Inj) 2 mg IV.PUSH Q5M PRN PRN Reason: SEIZURES Ondansetron HCl (Zofran Inj) 4 mg IV.PUSH Q6H PRN PRN Reason: NAUSEA OR VOMITING Patch Removal (Remove Old Patch) 1 each T-DERMAL HS [facility] Last Admin: 11/29/17 22:28 Dose: 1 each Potassium Phos/Sodium Phos (K-Phos Neutral) 250 mg PO TID [facility] Stop: 11/30/17 23:59 Last Admin: 11/30/17 17:58 Dose: 250 mg Pravastatin Sodium (Pravachol) 40 mg PO DAILY [facility] Last Admin: 11/30/17 10:09 Dose: 40 mg Pregabalin (Lyrica) 200 mg PO TID [facility] Last Admin: 11/30/17 17:58 Dose: 200 mg Senna/Docusate Sodium (Kaylyn-Colace) 1 tab PO BID [facility] Last Admin: 11/30/17 10:09 Dose: Not Given Sennosides (Senokot) 17.2 mg PO Q12H PRN PRN Reason: Moderate Constipation Sodium Chloride (Ns Flush) 2 ml IV.FLUSH BID [facility] Last Admin: 11/30/17 11:37 Dose: 2 ml Sodium Chloride (Ns Flush) 2 ml IV.FLUSH PRN PRN PRN Reason: FLUSH AFTER USING IV ACCESS Allergies/Adverse Reactions: Allergies Allergy/AdvReac Type Severity Reaction Status Date / Time No Known Allergies Allergy Unverified 11/23/17 02:03 Physical Exam Vital signs: Vital Signs 11/29/17 23:45 11/30/17 00:00 11/30/17 03:51 Temperature 98.8 F Pulse Rate 95 H 95 H 96 H Respiratory Rate 18 Blood Pressure 124/74 Pulse Oximetry 98 11/30/17 04:00 11/30/17 04:02 11/30/17 08:00 Temperature 99.1 F 99.2 F Pulse Rate 94 H 70 96 H Respiratory Rate 18 18 Blood Pressure 125/78 122/59 L Pulse Oximetry 98 100 11/30/17 12:00 11/30/17 16:00 Temperature 99.0 F 98.9 F Pulse Rate 96 H 92 H Respiratory Rate 18 20 Blood Pressure 136/74 144/78 H Pulse Oximetry 97 100 Intake & Output 11/30/17 11/30/17 12/01/17 06:59 18:59 06:59 Intake Total 720 / 720 1920 / 1920 Balance 720 / 720 1920 / 1920 Weight 71.3 kg Intake: IV 720 / 720 1320 / 1320 Sodium Bicarbonate 8.4% Inj 75 510 / 510 1010 / 1010 MEQ KCl Inj 20 MEQ In D5W Inj 925 ML @ 100 mls/hr IV.CONT . Q10H6M [facility] Rx#:[id number] Depacon Inj 500 MG In NS Inj 210 / 210 210 / 210 100 ML @ 105 mls/hr IV.SIG Q6H [facility] Rx#:[id number] Rocephin Inj 1,000 MG In NS Inj 100 / 100 100 ML @ 200 mls/hr IV.SIG Q24H [facility] Rx#:[id number] Oral 600 / 600 Other: # Voids 7 4 Date of Last Bowel Movement 11/29/17 11/30/17 # Bowel Movements 2 - Routine Neurological Exam alert, oriented, follow commands. speech is normal CN intact MOTOR 5/5 BUE Objective Laboratory Results - last 24 hr 11/30/17 11/30/17 11/30/17 10:26 10:26 11:35 WBC 15.0 H RBC 3.99 L Hgb 12.6 Hct 37.3 MCV 93.6 MCH 31.7 MCHC 33.9 RDW 14.4 Plt Count 271 MPV 10.9 Neut % (Auto) 68.8 Lymph % (Auto) 20.1 [place] % (Auto) 8.9 H Eos % (Auto) 1.6 Baso % (Auto) 0.6 Neut # (Auto) 10.3 H Lymph # (Auto) 3.0 [place] # (Auto) 1.3 H Eos # (Auto) 0.2 Baso # (Auto) 0.1 WBC Differential . Differential Comment Auto diff final Sodium 145 Potassium 4.4 D Chloride 107 Carbon Dioxide 27.6 Anion Gap 10 BUN 1 L Creatinine 0.57 Estimated GFR Greater than 89 POC Glucose 100 Random Glucose 85 Calcium 7.5 L Phosphorus 2.6 Albumin 2.4 L Review/Management - Diagnosis (1) Altered mental status Code(s): R41.82 - Altered mental status, unspecified Status: Acute Current Visit: Yes - Review/Management Plan: subclinical sz ---improved with depakote (1) Altered mental status Qualifiers: Altered mental status type: unspecified Qualified Code(s): R41.82 - Altered mental status, unspecified
[2017-11-30] MEDS: Loperamide 2 MG Capsule PO PRN (22:33)
[2017-12-01] MEDS: Valproate Inj 500 MG in Sodium Chlor 0.9% Inj 100 ML IV.SIG SCH ×4 (03:50→20:33)
[2017-12-01 06:06] LABS: Baso # (Auto) 0.2 th/mm3 (0.0-0.2); Baso % (Auto) 0.9 % (0.0-2.0); Eos # (Auto) 0.2 th/mm3 (0.0-0.4); Eos % (Auto) 0.9 % (0.0-4.0); Hematocrit 36.2 % (35.0-46.0); Hemoglobin 12.2 gm/dL (11.6-15.3); Lymph # (Auto) 3.7 th/mm3 (1.0-4.8); Lymph % (Auto) 22.4 % (9.0-44.0); Mean Corpuscular HGB Conc 33.6 % (32.0-36.0); Mean Corpuscular Hemoglobin 31.7 pg (27.0-34.0); Mean Corpuscular Volume 94.3 fL (80.0-100.0); Mean Platelet Volume 10.7 fL (7.0-11.0); Mono # (Auto) 1.6 th/mm3 (0.0-0.9); Neut # (Auto) 10.8 th/mm3 (1.8-7.7); Neut % (Auto) 65.8 % (16.0-70.0); Platelet Count 283 th/mm3 (150-450); Red Blood Count 3.84 mil/mm3 (4.00-5.30); Red Cell Distribution Width 14.5 % (11.6-17.2); White Blood Count 16.5 th/mm3 (4.0-11.0)
[2017-12-01 06:51] LABS: Albumin 1.9 g/dL (3.4-5.0); Anion Gap 11 meq/L (5-15); Blood Urea Nitrogen 2 mg/dL (7-18); Carbon Dioxide 25.1 meq/L (21.0-32.0); Chloride 108 meq/L (98-107); Glomerular Filtration Rate Greater Than 89 mL/min (>89); Glucose,Random 81 mg/dL (74-106); Magnesium 1.5 mg/dL (1.5-2.5); Phosphorus 3.5 mg/dL (2.5-4.9); Sodium 144 meq/L (136-145)
[2017-12-01 07:06] LABS: Calcium 7.2 mg/dL (8.5-10.1); Potassium 2.7 meq/L (3.5-5.1)
[2017-12-01] MEDS: Heparin - SQ 10,000 UNITS/ML Vial SQ SCH ×2 (09:10→20:14)
[2017-12-01] MEDS: Famotidine 20 MG Tablet PO SCH ×2 (09:10→20:14)
[2017-12-01] MEDS: Senna/Docusate Sodium 8.6/50 MG Tablet PO SCH ×2 (09:11→20:15)
[2017-12-01] MEDS: Lidocaine 5% Patch T-DERMAL SCH (09:11)
[2017-12-01] MEDS: Sodium Chloride 0.9% 2 ML Flush BID IV.FLUSH SCH ×2 (09:11→20:15)
[2017-12-01] MEDS ORDERED: Magnesium Sulfate Inj 2 GM in Sodium Chlor 0.9% Inj 96 ML IV.SIG ONE (10:00)
[2017-12-01] MEDS: Potassium Chlor 20 mEq Premix 20 MEQ/100 ML PIGGYBACK IV.SIG SCH ×2 (10:55→14:11)
--- NOTE | 2017-12-01 12:42 | P.PNNP ---
Subjective Interval history: Pt confused again today. at bedside and reports he "feels like she is going backwards again" Still with loose stools without definite diarrhea, but upwards of 4-5x per hour. Physical Exam Vital signs: Vital Signs 11/30/17 16:00 11/30/17 20:00 12/01/17 00:00 Temperature 98.9 F 99.7 F H 98.1 F Pulse Rate 92 H 94 H 99 H Respiratory Rate 20 19 16 Blood Pressure 144/78 H 114/78 114/75 Pulse Oximetry 100 97 96 12/01/17 04:00 12/01/17 08:00 Temperature 98.7 F 97.5 F L Pulse Rate 94 H 100 H Respiratory Rate 16 22 Blood Pressure 126/75 117/67 Pulse Oximetry 96 96 Intake & Output 11/30/17 12/01/17 12/01/17 18:59 06:59 18:59 Intake Total 1920 / 1920 820 / 820 105 / 105 Balance 1920 / 1920 820 / 820 105 / 105 Weight 72.4 kg Intake: IV 1320 / 1320 820 / 820 105 / 105 Sodium Bicarbonate 8.4% Inj 75 1010 / 1010 610 / 610 MEQ KCl Inj 20 MEQ In D5W Inj 925 ML @ 50 mls/hr IV.CONT . [id number] [facility] Rx#:[id number] Depacon Inj 500 MG In NS Inj 210 / 210 210 / 210 105 / 105 100 ML @ 105 mls/hr IV.SIG Q6H [facility] Rx#:[id number] Rocephin Inj 1,000 MG In NS Inj 100 / 100 100 ML @ 200 mls/hr IV.SIG Q24H [facility] Rx#:[id number] Oral 600 / 600 Other: # Voids 4 Date of Last Bowel Movement 11/30/17 11/30/17 # Bowel Movements 2 - Constitutional no acute distress - Routine HEENT Exam Head: Present: normocephalic - Routine Neck Exam Present: supple - Routine Respiratory Exam Present: CTA bilaterally - Routine Cardiovascular Exam Present: RRR, S1, S2. Absent: murmur - Routine Abdominal Exam Present: soft - Routine Extremities Exam Absent: edema - Routine Skin Exam Present: intact - Routine Neurological Exam Present: alert Assessment and Plan - Assessment (1) Acidosis, metabolic Code(s): E87.2 - Acidosis Status: Acute Plan: Acidosis resolved. Reduce IV rate at this point in time. Potassium chloride added to IV fluids and the patient has received a p.o. dose of potassium chloride also today. Neutra-Phos for phosphate supplementation also. Pending additional screening tests including glutathione. Again encouraged nutritional intake with the patient and her . (2) Hypokalemia Code(s): E87.6 - Hypokalemia Status: Acute Plan: May be related to ongoing nutritional deficit as well as diarrhea. Potassium improved and Mg level normal. Likely related to GI loss Continue supplementation (3) Hypernatremia Code(s): E87.0 - Hyperosmolality and hypernatremia Status: Acute Plan: Resolved (4) Altered mental status Code(s): R41.82 - Altered mental status, unspecified Status: Acute Qualifiers: Altered mental status type: unspecified Qualified Code(s): R41.82 - Altered mental status, unspecified - Plan Work up underway. More conversive today, but easily distracted. Repeat EEG shows significant metabolic encephalopathy with no focal abnormality noted. No seizure activity was seen. BCx neg x3 days. Noted mild temp at 99.7 today.
[2017-12-01] MEDS: Loperamide 2 MG Capsule PO PRN (14:11)
[2017-12-01] MEDS ORDERED: Magnesium Citrate Liq 300 ML Bottle PO ONE ×2 (15:44→18:00)
--- NOTE | 2017-12-01 15:56 | P.PNGI ---
Subjective Interval history: Patient is resting in the bed states she is still having multiple diarrhea stools every hour to hour and a half. Notes decreased appetite but no vomiting Abdominal pain left side radiating over into the right lower quadrant. No fever <Bonita Stock - Last Filed: 12/01/17 15:57> Physical Exam Vital signs: Vital Signs 11/30/17 16:00 11/30/17 20:00 12/01/17 00:00 Temperature 98.9 F 99.7 F H 98.1 F Pulse Rate 92 H 94 H 99 H Respiratory Rate 20 19 16 Blood Pressure 144/78 H 114/78 114/75 Pulse Oximetry 100 97 96 12/01/17 04:00 12/01/17 08:00 12/01/17 12:00 Temperature 98.7 F 97.5 F L 97.6 F Pulse Rate 94 H 100 H 85 Respiratory Rate 16 22 23 Blood Pressure 126/75 117/67 104/67 Pulse Oximetry 96 96 97 Intake & Output 11/30/17 12/01/17 12/01/17 18:59 06:59 18:59 Intake Total 1920 / 1920 820 / 820 205 / 205 Balance 1920 / 1920 820 / 820 205 / 205 Weight 72.4 kg Intake: IV 1320 / 1320 820 / 820 205 / 205 Sodium Bicarbonate 8.4% Inj 75 1010 / 1010 610 / 610 MEQ KCl Inj 20 MEQ In D5W Inj 925 ML @ 50 mls/hr IV.CONT . [id number] [facility] Rx#:[id number] KCl 20 mEq Premix Inj 20 meq In 100 / 100 100 ml @ 50 mls/hr IV.SIG Q2H [facility] Rx#:[id number] Depacon Inj 500 MG In NS Inj 210 / 210 210 / 210 105 / 105 100 ML @ 105 mls/hr IV.SIG Q6H [facility] Rx#:[id number] Rocephin Inj 1,000 MG In NS Inj 100 / 100 100 ML @ 200 mls/hr IV.SIG Q24H [facility] Rx#:[id number] Oral 600 / 600 Other: # Voids 4 Date of Last Bowel Movement 11/30/17 11/30/17 # Bowel Movements 2 - Constitutional mild distress, obese, disheveled, cooperative - Routine HEENT Exam Head: Present: normocephalic ENT: Present: mucous membranes dry - Routine Neck Exam Present: supple - Routine Respiratory Exam Present: accessory muscle use - Routine Cardiovascular Exam Present: S1 (No shortness of breath wheezing or rhonchi), S2 - Routine Abdominal Exam Present: soft (Round, mild discomfort left mid abdomen radiating into the right lower quadrant), distended (No obvious distention, taut) - Routine Neurological Exam Present: alert (Answer simple question) <Bonita Stock - Last Filed: 12/01/17 15:57> Vital signs: Vital Signs 11/30/17 20:00 12/01/17 00:00 12/01/17 04:00 Temperature 99.7 F H 98.1 F 98.7 F Pulse Rate 94 H 99 H 94 H Respiratory Rate 19 16 16 Blood Pressure 114/78 114/75 126/75 Pulse Oximetry 97 96 96 12/01/17 08:00 12/01/17 12:00 Temperature 97.5 F L 97.6 F Pulse Rate 100 H 85 Respiratory Rate 22 23 Blood Pressure 117/67 104/67 Pulse Oximetry 96 97 Intake & Output 11/30/17 12/01/17 12/01/17 18:59 06:59 18:59 Intake Total 1920 / 1920 820 / 820 205 / 205 Balance 1920 / 1920 820 / 820 205 / 205 Weight 72.4 kg Intake: IV 1320 / 1320 820 / 820 205 / 205 Sodium Bicarbonate 8.4% Inj 75 1010 / 1010 610 / 610 MEQ KCl Inj 20 MEQ In D5W Inj 925 ML @ 50 mls/hr IV.CONT . [id number] [facility] Rx#:[id number] KCl 20 mEq Premix Inj 20 meq In 100 / 100 100 ml @ 50 mls/hr IV.SIG Q2H [facility] Rx#:[id number] Depacon Inj 500 MG In NS Inj 210 / 210 210 / 210 105 / 105 100 ML @ 105 mls/hr IV.SIG Q6H [facility] Rx#:[id number] Rocephin Inj 1,000 MG In NS Inj 100 / 100 100 ML @ 200 mls/hr IV.SIG Q24H [facility] Rx#:[id number] Oral 600 / 600 Other: # Voids 4 Date of Last Bowel Movement 11/30/17 11/30/17 # Bowel Movements 2 <Criss Malone - Last Filed: 12/01/17 17:02> Results - Labs CBC & Chem 7: 12/01/17 05:40 12/01/17 05:40 Laboratory Results - last 24 hr 11/28/17 11/30/17 12/01/17 20:30 20:22 05:40 WBC 16.5 H RBC 3.84 L Hgb 12.2 Hct 36.2 MCV 94.3 MCH 31.7 MCHC 33.6 RDW 14.5 Plt Count 283 MPV 10.7 Prelim Diff (Auto) Slide review pending Neut % (Auto) 65.8 Lymph % (Auto) 22.4 [place] % (Auto) 10.0 H Eos % (Auto) 0.9 Baso % (Auto) 0.9 Neut # (Auto) 10.8 H Lymph # (Auto) 3.7 [place] # (Auto) 1.6 H Eos # (Auto) 0.2 Baso # (Auto) 0.2 WBC Differential . Diff Scan Auto diff confirmed Differential Comment . Sodium Potassium Chloride Carbon Dioxide Anion Gap BUN Creatinine Estimated GFR POC Glucose 104 Random Glucose Calcium Phosphorus Magnesium Albumin Urine Immunofixation 12/01/17 12/01/17 05:40 12:50 WBC RBC Hgb Hct MCV MCH MCHC RDW Plt Count MPV Prelim Diff (Auto) Neut % (Auto) Lymph % (Auto) [place] % (Auto) Eos % (Auto) Baso % (Auto) Neut # (Auto) Lymph # (Auto) [place] # (Auto) Eos # (Auto) Baso # (Auto) WBC Differential Diff Scan Differential Comment Sodium 144 Potassium 2.7 L* D Chloride 108 H Carbon Dioxide 25.1 Anion Gap 11 BUN 2 L Creatinine 0.47 L Estimated GFR Greater than 89 POC Glucose 90 Random Glucose 81 Calcium 7.2 L* Phosphorus 3.5 Magnesium 1.5 Albumin 1.9 L Urine Immunofixation <Bonita Stock - Last Filed: 12/01/17 15:57> - Labs CBC & Chem 7: 12/01/17 05:40 12/01/17 05:40 Laboratory Results - last 24 hr 11/28/17 11/30/17 12/01/17 20:30 20:22 05:40 WBC 16.5 H RBC 3.84 L Hgb 12.2 Hct 36.2 MCV 94.3 MCH 31.7 MCHC 33.6 RDW 14.5 Plt Count 283 MPV 10.7 Prelim Diff (Auto) Slide review pending Neut % (Auto) 65.8 Lymph % (Auto) 22.4 [place] % (Auto) 10.0 H Eos % (Auto) 0.9 Baso % (Auto) 0.9 Neut # (Auto) 10.8 H Lymph # (Auto) 3.7 [place] # (Auto) 1.6 H Eos # (Auto) 0.2 Baso # (Auto) 0.2 WBC Differential . Diff Scan Auto diff confirmed Differential Comment . Sodium Potassium Chloride Carbon Dioxide Anion Gap BUN Creatinine Estimated GFR POC Glucose 104 Random Glucose Calcium Phosphorus Magnesium Albumin Urine Immunofixation 12/01/17 12/01/17 05:40 12:50 WBC RBC Hgb Hct MCV MCH MCHC RDW Plt Count MPV Prelim Diff (Auto) Neut % (Auto) Lymph % (Auto) [place] % (Auto) Eos % (Auto) Baso % (Auto) Neut # (Auto) Lymph # (Auto) [place] # (Auto) Eos # (Auto) Baso # (Auto) WBC Differential Diff Scan Differential Comment Sodium 144 Potassium 2.7 L* D Chloride 108 H Carbon Dioxide 25.1 Anion Gap 11 BUN 2 L Creatinine 0.47 L Estimated GFR Greater than 89 POC Glucose 90 Random Glucose 81 Calcium 7.2 L* Phosphorus 3.5 Magnesium 1.5 Albumin 1.9 L Urine Immunofixation <Criss Malone - Last Filed: 12/01/17 17:02> Assessment and Plan (1) Diarrhea Status: Acute Code(s): R19.7 - Diarrhea, unspecified - Plan 61-year-old female with a past medical history that significant for hypertension , dyslipidemia, chronic lower back pain. Patient has had multiple lumbar surgeries and is currently taking morphine, Percocet and Lyrica. Patient states she is under pain management care in the [facility]. This service has been consulted for patient's report of continued fatigue and loose stools since the day of admission on November 23, 2017. At that time patient presented to the emergency room with complaints of painful urination and diarrhea. Patient spouse states that she became altered and had not been taking her normal pain medications for several days prior. Upon admission patient was incontinent of watery stools x3. On consultation today patient reports some fatigue with lower abdominal cramps that she experiences after meals. Patient is currently on a cardiac diet and denies any nausea or vomiting. Denies heartburn or difficulty swallowing. Per patient and spouse stools were very frequent up until 2 days ago. She states she was having watery brown stools without any noted blood about 8-10 times a day. Today patient reports that stools are forming better and are now "like soft baby food". Patient states she had 4 episodes this a.m. very small amounts. She reports appetite is improving on the cardiac diet. Patient denies any recent travel or contacts with sick individuals recently. Patient states she has never had an EGD or colonoscopy. She reports positive family history for colon cancer-her dad. Patient smokes less than a pack per day and states she does not drink alcohol due to the amount of pain medications for her chronic back pain.This service is being consulted for evaluation of persistent diarrhea norovirus positive. At this time it appears that patient's frequency of stools are lessening and stools are gaining consistency and form. 11/29/17 Persistent diarrhea-normal virus positive: Patient reporting 4 episodes this a.m. very small amounts brown stool forming now consistency of "baby food". Microbiology results noted stool positive for normal virus negative for Giardia and negative for C. difficile. Patient currently on Lactinex, Pepcid and IV hydration. We will continue to monitor. 11/30/2017 Patient reports loose stools x 2 this a.m. states appetite much improved. Symptoms should be resolving. Possibility for colonoscopy next week. 11/30/2017 hemoglobin 12.6 hematocrit 37.3. 12/01/2017 patient continues to have multiple greater than 5 episodes of diarrhea today states she goes to the bathroom every hour or hour and a half and it is dark yellow in color. Patient also notes decreased to minimal appetite and only taken 2-3 bites of regular solid food. Discussed with patient again the possibility of colonoscopy for further evaluation and with patient's decreased appetite and previous nausea we will prep her for EGD colonoscopy in the morning Patient has been treated for norovirus. states that patient and their grandson have been together back about 2 weeks ago and both individuals got sick at the same time with diarrhea and abdominal pain. Questionable transmission between both of them. Hemoglobin 12.2 no obvious bloody stools Plan -Diet clear liquids this p.m. -Continue IV hydration for now -Consent for EGD colonoscopy in a.m. -N.p.o. at midnight -Prep with mag citrate bottles x2 this p.m. and Dulcolax 20 mg x1 -Monitor labs -Further recommendations to follow Patient was seen per myself and Dr. Malone, note was written on his behalf <Bonita Stock - Last Filed: 12/01/17 15:57> (1) Diarrhea Status: Acute Code(s): R19.7 - Diarrhea, unspecified - Plan Seen and examined with [employer], no improvement with current therapy. EGD/ Colonoscopy planned for tomorrow. <Criss Malone - Last Filed: 12/01/17 17:02>
[2017-12-01] MEDS ORDERED: POTASSIUM CHLORIDE IV.CONT SCH ×2 (16:26)
[2017-12-01] MEDS ORDERED: DEXTROSE 5% IV.CONT SCH ×2 (16:26)
[2017-12-01] MEDS ORDERED: WATER IV.CONT SCH ×2 (16:26)
[2017-12-01] MEDS: KCL 20 mEq/Dextrose 5% Inj 1,000 ML IV.SIG SCH (18:56)
--- NOTE | 2017-12-01 19:25 | P.PNIM ---
Subjective Interval history: patient says that she is feeling right, however diarrhea continues. Denies any chest pain or shortness breath. Physical Exam Vital signs: Vital Signs 11/30/17 20:00 12/01/17 00:00 12/01/17 04:00 Temperature 99.7 F H 98.1 F 98.7 F Pulse Rate 94 H 99 H 94 H Respiratory Rate 19 16 16 Blood Pressure 114/78 114/75 126/75 Pulse Oximetry 97 96 96 12/01/17 08:00 12/01/17 12:00 12/01/17 16:00 Temperature 97.5 F L 97.6 F 99.0 F Pulse Rate 100 H 85 90 Respiratory Rate 22 23 22 Blood Pressure 117/67 104/67 127/82 Pulse Oximetry 96 97 97 Intake & Output 12/01/17 12/01/17 12/02/17 06:59 18:59 06:59 Intake Total 820 / 820 1470 / 1470 100 / 100 Balance 820 / 820 1470 / 1470 100 / 100 Weight 72.4 kg Intake: IV 820 / 820 510 / 510 100 / 100 Sodium Bicarbonate 8.4% Inj 75 610 / 610 100 / 100 MEQ KCl Inj 20 MEQ In D5W Inj 925 ML @ 50 mls/hr IV.CONT . [id number] [facility] Rx#:[id number] Magnesium Sulfate Inj 2 GM In 100 / 100 NS Inj 96 ML @ 50 mls/hr IV.SIG ONCE ONE Rx#:[id number] KCl 20 mEq Premix Inj 20 meq In 200 / 200 100 ml @ 50 mls/hr IV.SIG Q2H [facility] Rx#:[id number] Depacon Inj 500 MG In NS Inj 210 / 210 210 / 210 100 ML @ 105 mls/hr IV.SIG Q6H [facility] Rx#:[id number] Oral 960 / 960 Other: # Voids 4 Date of Last Bowel Movement 11/30/17 Narrative: GENERAL: Sleeping, wakes up for exam.. Appears comfortable. Alert.exam unchanged today. SKIN: Warm and dry. HEAD: Normocephalic. EYES: No scleral icterus. NECK: Supple, trachea midline. No JVD. CARDIOVASCULAR: Regular rate and rhythm without murmurs, gallops, or rubs. RESPIRATORY: Breath sounds equal bilaterally. No accessory muscle use. GASTROINTESTINAL: Abdomen soft, non-tender, nondistended. MUSCULOSKELETAL: No cyanosis, or edema. Results - Labs CBC & Chem 7: 12/01/17 05:40 12/01/17 05:40 Laboratory Results - last 24 hr 11/28/17 11/30/17 12/01/17 20:30 20:22 05:40 WBC 16.5 H RBC 3.84 L Hgb 12.2 Hct 36.2 MCV 94.3 MCH 31.7 MCHC 33.6 RDW 14.5 Plt Count 283 MPV 10.7 Prelim Diff (Auto) Slide review pending Neut % (Auto) 65.8 Lymph % (Auto) 22.4 [place] % (Auto) 10.0 H Eos % (Auto) 0.9 Baso % (Auto) 0.9 Neut # (Auto) 10.8 H Lymph # (Auto) 3.7 [place] # (Auto) 1.6 H Eos # (Auto) 0.2 Baso # (Auto) 0.2 WBC Differential . Diff Scan Auto diff confirmed Differential Comment . Sodium Potassium Chloride Carbon Dioxide Anion Gap BUN Creatinine Estimated GFR POC Glucose 104 Random Glucose Calcium Phosphorus Magnesium Albumin Urine Immunofixation 12/01/17 12/01/17 05:40 12:50 WBC RBC Hgb Hct MCV MCH MCHC RDW Plt Count MPV Prelim Diff (Auto) Neut % (Auto) Lymph % (Auto) [place] % (Auto) Eos % (Auto) Baso % (Auto) Neut # (Auto) Lymph # (Auto) [place] # (Auto) Eos # (Auto) Baso # (Auto) WBC Differential Diff Scan Differential Comment Sodium 144 Potassium 2.7 L* D Chloride 108 H Carbon Dioxide 25.1 Anion Gap 11 BUN 2 L Creatinine 0.47 L Estimated GFR Greater than 89 POC Glucose 90 Random Glucose 81 Calcium 7.2 L* Phosphorus 3.5 Magnesium 1.5 Albumin 1.9 L Urine Immunofixation Assessment and Plan - Plan 61-year-old female with a past medical history significant for hypertension, dyslipidemia, chronic back pain status post multiple lumbar surgeries on morphine, Percocet, Lyrica and Tizanidine who presents to [facility] ED with altered mental status/acute encephalopathy. Patient is unable to provide any history and therefore history is obtained from discussion with the who is at the bedside as well as review of electronic medical record. //Acute encephalopathy/altered mental status: acute, unclear etiology, possibly due to combination of polypharmacy and poor oral intake/dehydration. Rule out infection/stroke. No hx of psychiatric illness although psychiatric component may be contributing, exam waxes/wanes. -CT head reviewed and neg for any acute intracranial abnormality -UDS + opiates. Patient on morphine, Percocet, Lyrica and Tizanidine at home - holding all sedating medications -Ammonia level 10, CBC wnl, afebrile, CXR neg, images reviewed by me -Initial UA not indicative of UTI, however repeat UA with +nitrates, initiated IV Rocephin, await urine culture -Blood cultures with no growth to date -neuro checks, fall/seizure precautions, continuous cardiac monitoring -PT/OT/ST with swallow evaluation, currently NPO -EEG abnormal consistent with encephalopathy -RPR nonreactive, vit B12 321 -avoid all sedating medications, holding home Morphine, Percocet, Lyrica and Tizanidine -Supportive treatment with IVF - changed to D5 1/2 NS with KCl (Na 151 and K 3.0) -Consulted neurology with abnormal EEG, ordered LP and MRI -S/p LP 11/24 - CSF studies unremarkable so far, cultures pending -Started on empiric IV Acyclovir, HSV pending -Brain MRI 11/24 suboptimal exam secondary to motion artifact otherwise no acute findings -ESR 24/CRP 0.63 - not significantly elevated to be concerned for arteritis -Repeat EEG 11/24 concerned for status epilepticus, patient already on Keppra and now with worsening EEG, discussed with Dr. Nair, recommends with initiating IV Depakote -Dr. Nair recommending repeat EEG on 11/26 = Follow-up repeat EEG. Appears improved. Pending speech evaluation. = 11/27. Improved mentation. Repeat EEG without seizure activity, although does show metabolic encephalopathy. = 11/28. Again improving mentation. = 11/29. Improving mentation. = 11/30. Mentation back to baseline. Continue medication regimen as per neurology. Appreciate assistance. //Elevated troponin, mild: patient denying any chest pain to providers and denies any reported chest pain from the patient. Suspect demand ischemia from tachycardia -EKG with sinus tach, no evidence of ischemia -troponins flat 0.08, 0.13, 0.11 -continuous cardiac monitoring = Patient continues without chest pain. //Sepsis //Acute community-acquired Norovirus infection //Diarrhea: reports 3 watery incontinent BMs, continues to have diarrhea throughout admission -stool negative for C diff -enteric stool studies pending -give IVF hydration -start lactinex although patient not yet tolerating oral intake -avoid stool softeners -monitor BMs = Norovirus infection. Patient is on isolation. Will continue IV fluids. Continue to monitor. = 11/29. Continue symptomatic treatment. IV fluids. Continue to monitor. GI following. Appreciate assistance. = 11/30. With leukocytosis up to 15 today. Tachycardia continues. Sepsis secondary to acute community-acquired norovirus infection. Continue symptomatic treatment. Appreciate GI assistance. =12/01. Appreciate GI assistance. Plan for colonoscopy tomorrow. //UTI: Repeat UA 11/24 with +nitrates -Started on IV Rocephin 1g daily -Preliminary urine culture with gram negative rods, continue to monitor = Discontinue ceftriaxone status post 3+ days treatment. Patient without symptoms. = Status post treatment. Repeat urinalysis noninfectious //Low TSH, 0.114 -Free T4 wnl -Outpatient f/up with PCP and repeat TSH/T4 //Hypernatremia/Hypokalemia: Na 151 and K 3.0. Suspect iatrogenic from IVF in combination with poor oral intake -change IVF from NS to D5W @ 84cc/hr with KCl replacement -Repeat BMP this afternoon and in am = Continues with hypernatremia despite D5 infusion. Will consult nephrology. = 11/27. Patient has been approved for diet. Hopefully this will improve hypokalemia. Hypophosphatemia with phosphorus of 1.5 today. We will continue IV fluids. = 11/27. Phosphorus improved to 2.2. Monitor. Hyponatremia as per nephrology. Appreciate assistance. = 12/01. Hypokalemia. 2.7again. Replace and monitor.nephrology following. Appreciate assistance. //Hypophosphatemia. improved after placement. Continue to monitor. //Non-anion gap metabolic acidosis. Likely secondary to bicarb loss from diarrhea. Continue symptom medic treatment. Continue to monitor. = Nephrology following. Appreciate assistance. = Improved on IV fluids. Nephrology following. Appreciate assistance. //DVT prophylaxis -Heparin sq Discharge Planning: Discharge pending further clinical improvement. Patient still with encephalopathy/AMS. Not yet ready for discharge. Still with diarrhea, non-anion gap metabolic acidosis, metabolic encephalopathy.. We will need neurology clearance.
[2017-12-02 03:51] LABS: Free Kappa/Lambda Light Chain 1.05 (0.26-1.65); Kappa Light Chain, Free 6.7 mg/L (3.3-19.4); Lambda Light Chain, Free 6.4 mg/L (5.7-26.3)
[2017-12-02] MEDS: Valproate Inj 500 MG in Sodium Chlor 0.9% Inj 100 ML IV.SIG SCH ×4 (04:00→20:48)
[2017-12-02 08:09] LABS: Baso % (Auto) 0.3 % (0.0-2.0); Eos # (Auto) 0.1 th/mm3 (0.0-0.4); Eos % (Auto) 0.5 % (0.0-4.0); Hemoglobin 12.6 gm/dL (11.6-15.3); Lymph # (Auto) 2.9 th/mm3 (1.0-4.8); Lymph % (Auto) 15.3 % (9.0-44.0); Mean Corpuscular HGB Conc 33.9 % (32.0-36.0); Mean Corpuscular Hemoglobin 32.5 pg (27.0-34.0); Mean Corpuscular Volume 95.9 fL (80.0-100.0); Mono # (Auto) 2.4 th/mm3 (0.0-0.9); Mono % (Auto) 12.5 % (0.0-8.0); Neut # (Auto) 13.7 th/mm3 (1.8-7.7); Neut % (Auto) 71.4 % (16.0-70.0); Platelet Count 302 th/mm3 (150-450); Red Blood Count 3.86 mil/mm3 (4.00-5.30); Red Cell Distribution Width 14.7 % (11.6-17.2); White Blood Count 19.2 th/mm3 (4.0-11.0)
[2017-12-02 08:10] LABS: Albumin 1.7 g/dL (3.4-5.0); Anion Gap 10 meq/L (5-15); Blood Urea Nitrogen 5 mg/dL (7-18); Carbon Dioxide 24.9 meq/L (21.0-32.0); Chloride 106 meq/L (98-107); Glomerular Filtration Rate Greater Than 89 mL/min (>89); Glucose,Random 88 mg/dL (74-106); Magnesium 2.6 mg/dL (1.5-2.5); Phosphorus 3.3 mg/dL (2.5-4.9); Potassium 3.2 meq/L (3.5-5.1); Sodium 141 meq/L (136-145)
[2017-12-02 08:19] LABS: Calcium 7.1 mg/dL (8.5-10.1)
[2017-12-02] MEDS: Lidocaine 5% Patch T-DERMAL SCH (09:24)
[2017-12-02] MEDS: Famotidine 20 MG Tablet PO SCH ×2 (09:24→20:49)
[2017-12-02] MEDS: Heparin - SQ 10,000 UNITS/ML Vial SQ SCH (09:25)
[2017-12-02] MEDS: Senna/Docusate Sodium 8.6/50 MG Tablet PO SCH ×2 (09:26→20:49)
[2017-12-02] MEDS: Sodium Chloride 0.9% 2 ML Flush BID IV.FLUSH SCH ×2 (09:26→20:48)
[2017-12-02] MEDS ORDERED: Lidocaine PF 1% Inj 5 ML Syringe OTHER ONE (11:20)
--- NOTE | 2017-12-02 11:45 | GIPROC ---
[facility] [address] [facility]. [facility] [place], [address] EGD PROCEDURE REPORT EXAM DATE: 12/02/2017 PATIENT NAME: Iris Woodruff MR #: [id number] BIRTHDATE: 1955 ATTENDING: Criss Malone MD ORDER #: [id number] DIRECTOR OF PERIOPERATIVE SERVICES: Terrance Montalvo and Le Pedroza STATUS: inpatient INDICATIONS: The patient is a 62 yr old female here for an EGD due to chronic diarrhea and dyspepsia PROCEDURE PERFORMED: EGD w/ biopsy MEDICATIONS: None and Per Anesthesia. TOPICAL ANESTHETIC: CONSENT: The patient understands the risks and benefits of the procedure and understands that these risks include, but are not limited to: sedation, allergic reaction, infection, perforation and/or bleeding. Alternative means of evaluation and treatment include, among others: physical exam, x-rays, and/or surgical intervention. The patient elects to proceed with this endoscopic procedure. medical equipment was checked for proper function. Hand hygiene and appropriate measures for infection prevention was taken. After the risks, benefits and alternatives of the procedure were thoroughly explained, Informed consent was verified, confirmed and timeout was successfully executed by the treatment team. The patient was anesthetized with topical anesthesia and the [id number] (Pedi C) endoscope was introduced through the mouth and advanced to the second portion of the duodenum. Retroflexed views revealed no abnormalities The gastroscope was then slowly withdrawn and removed. ESOPHAGUS: There was LA Class A esophagitis noted. A biopsy was performed using cold forceps. Sample sent for histology. STOMACH: There was severe and erosive gastritis in the gastric antrum. A biopsy was performed using cold forceps. Sample sent for histology. DUODENUM: Severe duodenal inflammation was found in the duodenal bulb. A single non-bleeding, shallow and clean-based ulcer ranging between 3-7mm in size was found in the 1st part of the duodenum. Biopsies were taken around the ulcer. ADVERSE EVENTS: There were no complications. IMPRESSIONS: 1. There was LA Class A esophagitis noted; biopsy was performed 2. There was gastritis in the gastric antrum; biopsy was performed 3. Duodenal inflammation was found in the duodenal bulb 4. Single ulcer ranging between 3-7mm in size was found in the 1st part of the duodenum; biopsies were taken 5. Retroflexed views revealed no abnormalities RECOMMENDATIONS: 1. Await biopsy results. Biopsy results will not be ready for 7-10 days. If you don't hear from us in two weeks, call our office for biopsy results. 2. Anti-reflux regimen 3. Continue PPI 4. Avoid NSAIDS PATIENT CONDITION: stable DISPOSITION: Inpatient REPEAT EXAM: Return 1 month EGD pending biopsy results Criss Malone MD eSigned: Criss Malone MD 12/02/2017 11:45 AM cc: PATIENT NAME: Iris Woodruff MR#: [id number]
--- NOTE | 2017-12-02 11:57 | GIPROC ---
[facility] [address] [facility]. [facility], [address] COLONOSCOPY PROCEDURE REPORT EXAM DATE: 12/02/2017 PATIENT NAME: Iris Woodruff MR #: [id number] BIRTHDATE: 1955 ENDOSCOPIST: Criss Malone MD ORDER #: [id number] CARBIDER: Terrance Montalvo and Le Pedroza STATUS: inpatient INDICATIONS: The patient is a 62 yr old female here for a colonoscopy due to chronic diarrhea and abdominal pain PROCEDURE PERFORMED: Colonoscopy with biopsy MEDICATIONS: None and Per Anesthesia. PREP QUALITY: The [place] Bowel Prep Score was Right colon 2, Mid colon 2, and Left colon 2. Total = 6. ESTIMATED BLOOD LOSS: None CONSENT: The patient understands the risks and benefits of the procedure and understands that these risks include, but are not limited to: sedation, allergic reaction, infection, perforation and/or bleeding. Alternative means of evaluation and treatment include, among others: physical exam, x-rays, and/or surgical intervention. The patient elects to proceed with this endoscopic procedure. medical equipment was checked for proper function. Hand hygiene and appropriate measures for infection prevention was taken. After the risks, benefits and alternatives of the procedure were thoroughly explained, Informed consent was verified, confirmed and timeout was successfully executed by the treatment team. A digital exam revealed external hemorrhoids The Pentax [id number] endoscope was introduced through the anus and advanced to the cecum, which was identified by both the appendix and ileocecal valve. The instrument was then slowly withdrawn as the colon was fully examined. COLON FINDINGS: A circumferential diffuse patch of colitis was found throughout the entire examined colon. The mucosa was erythematous and had pseudomembranes. This was likely consistent with pseudomembranous colitis disease. Multiple biopsies were performed using cold forceps. Retroflexed views revealed internal hemorrhoids and Retroflexed views revealed medium internal hemorrhoids The scope was then completely withdrawn from the patient and the procedure terminated. PROCEDURE WITHDRAWAL TIME:8minutes ADVERSE EVENTS: There were no complications. IMPRESSIONS: 1. Circumferential diffuse colitis was found throughout the entire examined colon; The mucosa was erythematous and had pseudomembranes; This is consistent with pseudomembranous colitis.; multiple biopsies were performed using cold forceps 2. Retroflexed views revealed internal hemorrhoids 3. Retroflexed views revealed medium internal hemorrhoids 4. Revealed external hemorrhoids RECOMMENDATIONS: 1. Await biopsy results. Biopsy results will not be ready for 7-10 days. If you don't hear from us in two weeks, call our office for results. 2. Continue surveillance 3. Vancomicin 125mg 1 po qid x 14 days. Lactinex 1 po tid RECALL: Return 1 year Colonoscopy, pending biopsy results Criss Malone MD eSigned: Criss Malone MD 12/02/2017 11:57 AM cc: PATIENT NAME: Iris Woodruff MR#: [id number]
[2017-12-02 12:37] LABS: Eosinophils 2 % (0-4); Lymphocytes 10 % (9-44); Monocytes 13 % (0-8); Myelocytes 2 % (0-0); Platelet Estimate Normal (Normal); Platelet Morphology Normal (Normal); RBC Morphology Normal (Normal)
[2017-12-02] MEDS: KCL 20 mEq/Dextrose 5% Inj 1,000 ML IV.SIG SCH (13:36)
--- NOTE | 2017-12-02 18:22 | P.PNIM ---
Subjective Interval history: patient seen after colonoscopy. She says she is very tired and would like to sleep. She denies any pain currently. Physical Exam Vital signs: Vital Signs 12/01/17 20:00 12/02/17 00:00 12/02/17 00:59 Temperature 100.8 F H 97.8 F Pulse Rate 109 H 109 H Respiratory Rate 20 18 18 Blood Pressure 123/66 119/65 Pulse Oximetry 94 L 94 L 12/02/17 04:00 12/02/17 08:00 12/02/17 11:58 Temperature 99.9 F H 98.9 F 98.3 F Pulse Rate 106 H 98 H 84 Respiratory Rate 18 17 16 Blood Pressure 137/67 109/68 103/70 Pulse Oximetry 95 94 L 100 12/02/17 12:05 12/02/17 12:15 12/02/17 14:42 Temperature 98.7 F Pulse Rate 90 84 Respiratory Rate 18 18 Blood Pressure 114/68 120/79 Pulse Oximetry 96 96 94 L 12/02/17 15:58 12/02/17 16:00 Temperature 98.7 F Pulse Rate 94 H Respiratory Rate 17 Blood Pressure 110/66 Pulse Oximetry 95 95 Intake & Output 12/01/17 12/02/17 12/02/17 18:59 06:59 18:59 Intake Total 1470 / 1470 310 / 310 1410 / 1410 Balance 1470 / 1470 310 / 310 1410 / 1410 Weight 68.2 kg Intake: IV 510 / 510 310 / 310 1210 / 1210 Sodium Bicarbonate 8.4% Inj 75 100 / 100 MEQ KCl Inj 20 MEQ In D5W Inj 925 ML @ 50 mls/hr IV.CONT . [id number] BENJAMIN Rx#:[id number] D5W + KCL 20 mEq Inj 1,000 ML @ 1000 / 1000 50 mls/hr IV.SIG .Q20H BENJAMIN Rx# :[id number] Magnesium Sulfate Inj 2 GM In 100 / 100 NS Inj 96 ML @ 50 mls/hr IV.SIG ONCE ONE Rx#:[id number] KCl 20 mEq Premix Inj 20 meq In 200 / 200 100 ml @ 50 mls/hr IV.SIG Q2H BENJAMIN Rx#:[id number] Depacon Inj 500 MG In NS Inj 210 / 210 210 / 210 210 / 210 100 ML @ 105 mls/hr IV.SIG Q6H BENJAMIN Rx#:[id number] Oral 960 / 960 0 / 0 Anesthesia Amount 200 / 200 Other: # Voids 4 4 Date of Last Bowel Movement 11/30/17 11/30/17 # Bowel Movements 5 Narrative: GENERAL: Sleeping, wakes up for exam.. Appears comfortable. SKIN: Warm and dry. HEAD: Normocephalic. EYES: No scleral icterus. NECK: Supple, trachea midline. No JVD. CARDIOVASCULAR: Regular rate and rhythm without murmurs, gallops, or rubs. RESPIRATORY: Breath sounds equal bilaterally. No accessory muscle use. GASTROINTESTINAL: Abdomen soft, non-tender, nondistended. positive bowel sounds MUSCULOSKELETAL: No cyanosis, or edema. Results - Labs CBC & Chem 7: 12/02/17 06:55 12/02/17 06:55 Laboratory Results - last 24 hr 11/28/17 11/28/17 12/01/17 06:52 06:52 20:13 WBC RBC Hgb Hct MCV MCH MCHC RDW Plt Count MPV Prelim Diff (Auto) Neut % (Auto) Lymph % (Auto) Story % (Auto) Eos % (Auto) Baso % (Auto) Neut # (Auto) Lymph # (Auto) Story # (Auto) Eos # (Auto) Baso # (Auto) WBC Differential Seg Neuts % (Manual) Band Neuts % (Manual) Lymphocytes % (Manual) Monocytes % (Manual) Eosinophils % (Manual) Myelocytes % (Man) Abs Neuts (Manual) Differential Comment Platelet Estimate Platelet Morphology RBC Morphology Sodium Potassium Chloride Carbon Dioxide Anion Gap BUN Creatinine Estimated GFR POC Glucose 114 H Random Glucose Calcium Phosphorus Magnesium Albumin Albumin (PEP) 2.83 L Albumin/Globulin Ratio 1.52 Oamoe-1-Zebdicims 0.13 Ggnmx-6-Dzcnarssn 0.82 Beta Globulins 0.50 L Gamma Globulins 0.41 L Free [place] Light Chains 6.70 Free Lambda Light Chain 6.40 Free [place]/Lambda Ratio 1.05 12/02/17 12/02/17 06:55 06:55 WBC 19.2 H RBC 3.86 L Hgb 12.6 Hct 37.0 MCV 95.9 MCH 32.5 MCHC 33.9 RDW 14.7 Plt Count 302 MPV 11.0 Prelim Diff (Auto) Slide review pending Neut % (Auto) 71.4 H Lymph % (Auto) 15.3 Story % (Auto) 12.5 H Eos % (Auto) 0.5 Baso % (Auto) 0.3 Neut # (Auto) 13.7 H Lymph # (Auto) 2.9 Story # (Auto) 2.4 H Eos # (Auto) 0.1 Baso # (Auto) 0.0 WBC Differential Manual diff final Seg Neuts % (Manual) 50 Band Neuts % (Manual) 23 H Lymphocytes % (Manual) 10 Monocytes % (Manual) 13 H Eosinophils % (Manual) 2 Myelocytes % (Man) 2 H Abs Neuts (Manual) 14.4 H Differential Comment . Platelet Estimate Normal Platelet Morphology Normal RBC Morphology Normal Sodium 141 Potassium 3.2 L Chloride 106 Carbon Dioxide 24.9 Anion Gap 10 BUN 5 L Creatinine 0.54 Estimated GFR Greater than 89 POC Glucose Random Glucose 88 Calcium 7.1 L* Phosphorus 3.3 Magnesium 2.6 H D Albumin 1.7 L Albumin (PEP) Albumin/Globulin Ratio Prinz-7-Vrounnejr Yceph-7-Isikcbevh Beta Globulins Gamma Globulins Free [place] Light Chains Free Lambda Light Chain Free [place]/Lambda Ratio Assessment and Plan - Plan Patient admitted with seizure activity, seen by neurology, and anti-seizure meds started with improvement. Patient also admitted with diarrhea, found to be positive for [place] virus. Severe hypokalemia, non-anion gap metabolic acidosis likely secondary to diarrhea. GI following. Although C. difficile testing was negative on admission, colonoscopy shows pseudomembranous colitis. Patient started on vancomycin 12/02, with pathology pending. 61-year-old female with a past medical history significant for hypertension, dyslipidemia, chronic back pain status post multiple lumbar surgeries on morphine, Percocet, Lyrica and Tizanidine who presents to [facility] ED with altered mental status/acute encephalopathy. Patient is unable to provide any history and therefore history is obtained from discussion with the who is at the bedside as well as review of electronic medical record. //Acute encephalopathy/altered mental status: acute, unclear etiology, possibly due to combination of polypharmacy and poor oral intake/dehydration. Rule out infection/stroke. No hx of psychiatric illness although psychiatric component may be contributing, exam waxes/wanes. -CT head reviewed and neg for any acute intracranial abnormality -UDS + opiates. Patient on morphine, Percocet, Lyrica and Tizanidine at home - holding all sedating medications -Ammonia level 10, CBC wnl, afebrile, CXR neg, images reviewed by me -Initial UA not indicative of UTI, however repeat UA with +nitrates, initiated IV Rocephin, await urine culture -Blood cultures with no growth to date -neuro checks, fall/seizure precautions, continuous cardiac monitoring -PT/OT/ST with swallow evaluation, currently NPO -EEG abnormal consistent with encephalopathy -RPR nonreactive, vit B12 321 -avoid all sedating medications, holding home Morphine, Percocet, Lyrica and Tizanidine -Supportive treatment with IVF - changed to D5 02/24 NS with KCl (Na 151 and K 3.0) -Consulted neurology with abnormal EEG, ordered LP and MRI -S/p LP 11/24 - CSF studies unremarkable so far, cultures pending -Started on empiric IV Acyclovir, HSV pending -Brain MRI 11/24 suboptimal exam secondary to motion artifact otherwise no acute findings -ESR 24/CRP 0.63 - not significantly elevated to be concerned for arteritis -Repeat EEG 11/24 concerned for status epilepticus, patient already on Keppra and now with worsening EEG, discussed with Dr. Nair, recommends with initiating IV Depakote -Dr. Nair recommending repeat EEG on 11/26 = Follow-up repeat EEG. Appears improved. Pending speech evaluation. = 11/27. Improved mentation. Repeat EEG without seizure activity, although does show metabolic encephalopathy. = 11/28. Again improving mentation. = 11/29. Improving mentation. = 11/30. Mentation back to baseline. Continue medication regimen as per neurology. Appreciate assistance. //Elevated troponin, mild: patient denying any chest pain to providers and denies any reported chest pain from the patient. Suspect demand ischemia from tachycardia -EKG with sinus tach, no evidence of ischemia -troponins flat 0.08, 0.13, 0.11 -continuous cardiac monitoring = Patient continues without chest pain. //Sepsis //Acute community-acquired Norovirus infection //Diarrhea: reports 3 watery incontinent BMs, continues to have diarrhea throughout admission //pseudomembranous colitis suspected C. difficile -stool negative for C diff -enteric stool studies pending -give IVF hydration -start lactinex although patient not yet tolerating oral intake -avoid stool softeners -monitor BMs = Norovirus infection. Patient is on isolation. Will continue IV fluids. Continue to monitor. = 11/29. Continue symptomatic treatment. IV fluids. Continue to monitor. GI following. Appreciate assistance. = 11/30. With leukocytosis up to 15 today. Tachycardia continues. Sepsis secondary to acute community-acquired norovirus infection. Continue symptomatic treatment. Appreciate GI assistance. =12/01. Appreciate GI assistance. Plan for colonoscopy tomorrow. =12/02. Pseudomembranous colitis seen on colonoscopy. We'll start on vancomycin. Follow up pathology. Due to negative C. difficile testing on admission, infectious disease consulted. //UTI: Repeat UA 11/24 with +nitrates -Started on IV Rocephin 1g daily -Preliminary urine culture with gram negative rods, continue to monitor = Discontinue ceftriaxone status post 3+ days treatment. Patient without symptoms. = Status post treatment. Repeat urinalysis noninfectious //Low TSH, 0.114 -Free T4 wnl -Outpatient f/up with PCP and repeat TSH/T4 //Hypernatremia/Hypokalemia: Na 151 and K 3.0. Suspect iatrogenic from IVF in combination with poor oral intake -change IVF from NS to D5W @ 84cc/hr with KCl replacement -Repeat BMP this afternoon and in am = Continues with hypernatremia despite D5 infusion. Will consult nephrology. = 11/27. Patient has been approved for diet. Hopefully this will improve hypokalemia. Hypophosphatemia with phosphorus of 1.5 today. We will continue IV fluids. = 11/27. Phosphorus improved to 2.2. Monitor. Hyponatremia as per nephrology. Appreciate assistance. = 12/01. Hypokalemia. 2.7again. Replace and monitor.nephrology following. Appreciate assistance. =12/02. 3.2. Replaced. //Hypophosphatemia. improved after placement. Continue to monitor. //Non-anion gap metabolic acidosis. Likely secondary to bicarb loss from diarrhea. Continue symptom medic treatment. Continue to monitor. = Nephrology following. Appreciate assistance. = Improved on IV fluids. Nephrology following. Appreciate assistance. //DVT prophylaxis -Heparin sq Discharge Planning: Discharge pending further clinical improvement. Patient still with encephalopathy/AMS. Not yet ready for discharge. Still with diarrhea, non-anion gap metabolic acidosis, metabolic encephalopathy.. We will need neurology clearance.
[2017-12-02] MEDS: Loperamide 2 MG Capsule PO PRN (20:48)
[2017-12-03] MEDS: Valproate Inj 500 MG in Sodium Chlor 0.9% Inj 100 ML IV.SIG SCH ×4 (04:30→20:25)
[2017-12-03] MEDS: Senna/Docusate Sodium 8.6/50 MG Tablet PO SCH ×2 (08:52→20:26)
[2017-12-03] MEDS: Lidocaine 5% Patch T-DERMAL SCH (08:52)
[2017-12-03] MEDS: Sodium Chloride 0.9% 2 ML Flush BID IV.FLUSH SCH ×2 (08:52→20:26)
[2017-12-03] MEDS: Famotidine 20 MG Tablet PO SCH ×2 (08:52→20:26)
--- NOTE | 2017-12-03 09:28 | P.PNGI ---
Subjective Interval history: Patient laying supine in bed watching television. States appetite much improved , "I am ravenous". Denies any nausea or vomiting, reports stool loose and brown. 2 bowel movements this morning <Roya Valderrama - Last Filed: 12/03/17 09:15> Physical Exam Vital signs: Vital Signs 12/02/17 11:58 12/02/17 12:05 12/02/17 12:15 Temperature 98.3 F 98.7 F Pulse Rate 84 90 84 Respiratory Rate 16 18 18 Blood Pressure 103/70 114/68 120/79 Pulse Oximetry 100 96 96 12/02/17 14:42 12/02/17 15:58 12/02/17 16:00 Temperature 98.7 F Pulse Rate 94 H Respiratory Rate 17 Blood Pressure 110/66 Pulse Oximetry 94 L 95 95 12/02/17 20:00 12/02/17 22:19 12/03/17 00:00 Temperature 98.7 F 98.5 F Pulse Rate 78 93 H Respiratory Rate 20 Blood Pressure 118/76 116/72 Pulse Oximetry 98 95 96 12/03/17 04:00 12/03/17 08:00 Temperature 98.7 F 99.0 F Pulse Rate 86 93 H Respiratory Rate 16 18 Blood Pressure 114/72 122/69 Pulse Oximetry 96 96 Intake & Output 12/02/17 12/03/17 12/03/17 18:59 06:59 18:59 Intake Total 1410 / 1410 210 / 210 360 / 360 Balance 1410 / 1410 210 / 210 360 / 360 Weight 64.8 kg Intake: IV 1210 / 1210 210 / 210 D5W + KCL 20 mEq Inj 1,000 ML @ 1000 / 1000 50 mls/hr IV.SIG .Q20H B[facility]AMIN Rx# :[id number] Depacon Inj 500 MG In NS Inj 210 / 210 210 / 210 100 ML @ 105 mls/hr IV.SIG Q6H B[facility]IN Rx#:[id number] Oral 0 / 0 360 / 360 Anesthesia Amount 200 / 200 Other: # Voids 6 4 Date of Last Bowel Movement 12/03/17 12/03/17 # Bowel Movements 1 4 - Constitutional no acute distress - Routine HEENT Exam Head: Present: normocephalic - Routine Respiratory Exam Present: CTA bilaterally. Absent: accessory muscle use - Routine Cardiovascular Exam Present: RRR - Routine Abdominal Exam Present: soft, normoactive bowel sounds, tenderness. Absent: distended, guarding, firm Comments: Mid lower quadrant tenderness with palpation on exam - Routine Extremities Exam Present: full ROM, pulses intact. Absent: edema - Routine Skin Exam Present: dry, warm - Routine Neurological Exam Present: alert, oriented X3 - Detailed Neurological Exam: Coma Scale Eye Opening: Spontaneous Verbal Response: Oriented Motor Response: Obey commands [place] Coma Scale Total: 15 - Routine Psychiatric Exam Present: normal affect, cooperative <Roya Valderrama - Last Filed: 12/03/17 09:15> Vital signs: Vital Signs 12/02/17 20:00 12/02/17 22:19 12/03/17 00:00 Temperature 98.7 F 98.5 F Pulse Rate 78 93 H Respiratory Rate 20 Blood Pressure 118/76 116/72 Pulse Oximetry 98 95 96 12/03/17 04:00 12/03/17 07:30 12/03/17 08:00 Temperature 98.7 F 99.0 F Pulse Rate 86 92 H 93 H Respiratory Rate 16 18 Blood Pressure 114/72 122/69 Pulse Oximetry 96 96 12/03/17 12:00 Temperature 98.7 F Pulse Rate 94 H Respiratory Rate 18 Blood Pressure 138/67 Pulse Oximetry 95 Intake & Output 12/02/17 12/03/17 12/03/17 18:59 06:59 18:59 Intake Total 1410 / 1410 210 / 210 465 / 465 Balance 1410 / 1410 210 / 210 465 / 465 Weight 64.8 kg Intake: IV 1210 / 1210 210 / 210 105 / 105 D5W + KCL 20 mEq Inj 1,000 ML @ 1000 / 1000 50 mls/hr IV.SIG .Q20H B[facility]IN Rx# :[id number] Depacon Inj 500 MG In NS Inj 210 / 210 210 / 210 105 / 105 100 ML @ 105 mls/hr IV.SIG Q6H B[facility]IN Rx#:[id number] Oral 0 / 0 360 / 360 Anesthesia Amount 200 / 200 Other: # Voids 6 4 Date of Last Bowel Movement 12/03/17 12/03/17 # Bowel Movements 1 4 <Criss Malone - Last Filed: 12/03/17 16:48> Results - Labs CBC & Chem 7: 12/02/17 06:55 10/10/18 06:55 Laboratory Results - last 24 hr 11/28/17 12/02/17 12/03/17 06:52 06:55 08:50 WBC Differential Manual diff final Seg Neuts % (Manual) 50 Band Neuts % (Manual) 23 H Lymphocytes % (Manual) 10 Monocytes % (Manual) 13 H Eosinophils % (Manual) 2 Myelocytes % (Man) 2 H Abs Neuts (Manual) 14.4 H Platelet Estimate Normal Platelet Morphology Normal RBC Morphology Normal POC Glucose 91 Albumin (PEP) 2.83 L Albumin/Globulin Ratio 1.52 Ursct-4-Wjrvahfqb 0.13 Orohc-6-Wkaagskpi 0.82 Beta Globulins 0.50 L Gamma Globulins 0.41 L <Roya Valderrama - Last Filed: 12/03/17 09:15> - Labs CBC & Chem 7: 12/03/17 11:13 12/03/17 11:13 Laboratory Results - last 24 hr 11/24/17 11/28/17 12/03/17 13:08 06:52 08:50 WBC RBC Hgb Hct MCV MCH MCHC RDW Plt Count MPV Prelim Diff (Auto) Neut % (Auto) Lymph % (Auto) [place] % (Auto) Eos % (Auto) Baso % (Auto) Neut # (Auto) Lymph # (Auto) [place] # (Auto) Eos # (Auto) Baso # (Auto) WBC Differential Seg Neuts % (Manual) Band Neuts % (Manual) Lymphocytes % (Manual) Monocytes % (Manual) Eosinophils % (Manual) Myelocytes % (Man) Abs Neuts (Manual) Differential Comment Platelet Estimate Platelet Morphology RBC Morphology Sodium Potassium Chloride Carbon Dioxide Anion Gap BUN Creatinine Estimated GFR POC Glucose 91 Random Glucose Calcium Phosphorus Magnesium Albumin PEP Pathologist Comment Misc Test Result 12/03/17 12/03/17 11:13 11:13 WBC 17.1 H RBC 3.70 L Hgb 12.1 Hct 35.7 MCV 96.5 MCH 32.6 MCHC 33.8 RDW 14.5 Plt Count 282 MPV 10.8 Prelim Diff (Auto) Slide review pending Neut % (Auto) 76.8 H Lymph % (Auto) 13.3 [place] % (Auto) 8.9 H Eos % (Auto) 0.4 Baso % (Auto) 0.6 Neut # (Auto) 13.2 H Lymph # (Auto) 2.3 [place] # (Auto) 1.5 H Eos # (Auto) 0.1 Baso # (Auto) 0.1 WBC Differential Manual diff final Seg Neuts % (Manual) 59 Band Neuts % (Manual) 13 H Lymphocytes % (Manual) 18 Monocytes % (Manual) 6 Eosinophils % (Manual) 2 Myelocytes % (Man) 2 H Abs Neuts (Manual) 12.7 H Differential Comment . Platelet Estimate Normal Platelet Morphology Normal RBC Morphology Normal Sodium 140 Potassium 3.1 L Chloride 108 H Carbon Dioxide 22.3 Anion Gap 10 BUN 7 Creatinine 0.59 Estimated GFR Greater than 89 POC Glucose Random Glucose 107 H Calcium 7.0 L* Phosphorus 2.9 Magnesium 2.0 D Albumin 1.6 L PEP Pathologist Comment Misc Test Result <FaisalCriss hughes - Last Filed: 12/03/17 16:48> Assessment and Plan (1) Diarrhea Status: Acute Code(s): R19.7 - Diarrhea, unspecified - Plan 11/29/17 Persistent diarrhea-normal virus positive: Patient reporting 4 episodes this a.m. very small amounts brown stool forming now consistency of "baby food". Microbiology results noted stool positive for normal virus negative for Giardia and negative for C. difficile. Patient currently on Lactinex, Pepcid and IV hydration. We will continue to monitor. 11/30/2017 Patient reports loose stools x 2 this a.m. states appetite much improved. Symptoms should be resolving. Possibility for colonoscopy next week. 11/30/2017 hemoglobin 12.6 hematocrit 37.3. 12/01/2017 patient continues to have multiple greater than 5 episodes of diarrhea today states she goes to the bathroom every hour or hour and a half and it is dark yellow in color. Patient also notes decreased to minimal appetite and only taken 2-3 bites of regular solid food. Discussed with patient again the possibility of colonoscopy for further evaluation and with patient's decreased appetite and previous nausea we will prep her for EGD colonoscopy in the morning Patient has been treated for norovirus. states that patient and their grandson have been together back about 2 weeks ago and both individuals got sick at the same time with diarrhea and abdominal pain. Questionable transmission between both of them. Hemoglobin 12.2 no obvious bloody stools 12/03/2017-patient post EGD colonoscopy done on 12/02/2017 findings as follows-- class a esophagitis noted, gastritis in the gastric antrum; biopsy was performed. Duodenal inflammation was found in the duodenal bulb. Single ulcer ranging between 3-7 mm in size for found in the first part of the duodenum; biopsies were taken. Retroflexed views revealed no abnormalities. Patient was advised and given instructions regarding obtaining biopsy results. Colonoscopy findings as follows--Circumferential diffuse colitis was found throughout the entire examined colon; The mucosa was erythematous and had pseudomembranes; This is consistent with pseudomembranous colitis.; multiple biopsies were performed using cold forceps. Retroflexed views revealed internal hemorrhoids. Retroflexed views revealed medium internal hemorrhoids. Revealed external hemorrhoids. Patient currently being treated with vancomycin 125 mg p.o. 4 times daily and Lactinex 1 tab p.o. 3 times daily for pseudomembranous colitis. Plan Diet as tolerated Antireflux regimen PPI Avoid NSAIDs Monitor labs Repeat EGD in 1 year Repeat colonoscopy in 1 year Vancomycin Lactinex Supportive care Further recommendations to follow based on patient status and findings This patient has been seen by myself and Dr. Malone and this note is written on his behalf - Attending Attestation Dr. Malone <Roya Valderrama - Last Filed: 12/03/17 09:15> (1) Diarrhea Status: Acute Code(s): R19.7 - Diarrhea, unspecified - Plan Seen and examined with ETYMOLOGY PROFESSOR, feeling better. Colon biopsies-p, but consistent with c diff. Started on vancomicin/lactinex. Diet as tolerated. GI will sign off. Thank you <Criss Malone - Last Filed: 12/03/17 16:48>
[2017-12-03] MEDS: KCL 20 mEq/Dextrose 5% Inj 1,000 ML IV.SIG SCH (09:30)
[2017-12-03 11:44] LABS: Baso # (Auto) 0.1 th/mm3 (0.0-0.2); Baso % (Auto) 0.6 % (0.0-2.0); Eos # (Auto) 0.1 th/mm3 (0.0-0.4); Eos % (Auto) 0.4 % (0.0-4.0); Hematocrit 35.7 % (35.0-46.0); Hemoglobin 12.1 gm/dL (11.6-15.3); Lymph # (Auto) 2.3 th/mm3 (1.0-4.8); Lymph % (Auto) 13.3 % (9.0-44.0); Mean Corpuscular HGB Conc 33.8 % (32.0-36.0); Mean Corpuscular Hemoglobin 32.6 pg (27.0-34.0); Mean Corpuscular Volume 96.5 fL (80.0-100.0); Mean Platelet Volume 10.8 fL (7.0-11.0); Mono # (Auto) 1.5 th/mm3 (0.0-0.9); Mono % (Auto) 8.9 % (0.0-8.0); Neut # (Auto) 13.2 th/mm3 (1.8-7.7); Neut % (Auto) 76.8 % (16.0-70.0); Platelet Count 282 th/mm3 (150-450); Red Cell Distribution Width 14.5 % (11.6-17.2); White Blood Count 17.1 th/mm3 (4.0-11.0)
[2017-12-03 12:02] LABS: Albumin 1.6 g/dL (3.4-5.0); Anion Gap 10 meq/L (5-15); Blood Urea Nitrogen 7 mg/dL (7-18); Carbon Dioxide 22.3 meq/L (21.0-32.0); Chloride 108 meq/L (98-107); Glomerular Filtration Rate Greater Than 89 mL/min (>89); Glucose,Random 107 mg/dL (74-106); Phosphorus 2.9 mg/dL (2.5-4.9); Potassium 3.1 meq/L (3.5-5.1); Sodium 140 meq/L (136-145)
[2017-12-03 13:58] LABS: Eosinophils 2 % (0-4); Lymphocytes 18 % (9-44); Monocytes 6 % (0-8); Myelocytes 2 % (0-0)
[2017-12-03 13:59] LABS: Platelet Estimate Normal (Normal); Platelet Morphology Normal (Normal); RBC Morphology Normal (Normal)
--- NOTE | 2017-12-03 14:22 | MB ---
cc: Jesse Cunningham MD DATE: 12/03/2017 REQUESTING PHYSICIAN: Dr. Thompson. REASON: Clostridium difficile is negative on admission, but pseudomembranous colitis on colonoscopy. HISTORY OF PRESENT ILLNESS: This is a 62-year-old white female who was admitted to the hospital with altered mental status. The patient was noted to have diarrhea; C. difficile toxin test was ordered on 11/23/2017 and it was negative. The patient has been treated by neurology for altered mental status. The patient is very somnolent currently. She awakens intermittently to try to answer questions, but she is really not focusing and therefore I am unable to get any information from her. Information is obtained from her , who is at bedside. Information was also obtained from talking to the nurse and also the medical record. The patient's told me that the day that she was brought to the hospital she was sitting on the commode and the bowel movement was not watery. He noted that she had change in her mental status was not herself in answering him appropriately and therefore he alerted medical services and she was brought to the emergency department for evaluation. In the interim, she has continued to have loose bowel movements. The ; however, notes that the bowel movements are becoming more formed today. A stool sample for C. difficile was taken on 11/23/2017 and it came back negative. The patient was evaluated by gastroenterology. She underwent colonoscopy on 12/02/2017. Biopsies were performed. The colonic mucosa was noted to have diffuse colitis throughout the entire colon which was examined. The mucosa was erythematous and had pseudomembranes. It was felt that this was consistent with pseudomembranous colitis. Multiple biopsies were performed. The patient indicates to me that she has some pain in her abdomen. However, when I palpate the abdomen, she does not grimace or does not seem to be in any significant pain. She is afebrile. She did have a temperature of 100.8 degrees yesterday. Her white blood cell count is elevated. Today's white count is 17.1 and yesterday was 19.2. The patient was also noted to have a UTI with culture of the urine growing Escherichia coli on 11/24/2017. She received a course of ceftriaxone, which was discontinued on 11/30/2017. The patient has had no prior history of Clostridium difficile infection. She had a positive test for norovirus PCR of the stools on 11/23/2017. PAST MEDICAL HISTORY: 1. Hypertension. 2. Hyperlipidemia. 3. Chronic back pain, history of 3 back surgeries. ALLERGIES: NO KNOWN DRUG ALLERGIES. MEDICATIONS: 1. Valproate sodium. 2. Vancomycin p.o. 3. Lyrica 4. Pravachol. 5. Imodium. 6. Pepcid. 7. Bentyl. 8. Vitamin B12. SOCIAL HISTORY: The patient is . Positive tobacco use. No alcohol, no illicit drugs. FAMILY HISTORY: Significant for colon cancer in the patient's father. REVIEW OF SYSTEMS: Difficult to obtain because of the patient's mental status. Pertinents include abdominal pain and decreased mental status and diarrhea. PHYSICAL EXAMINATION: GENERAL: This is a thin, frail appearing female who is in no acute distress. VITAL SIGNS: Temperature 98.7, BP 130/67, respirations 18, heart rate 94. HEENT: Head is atraumatic. Extraocular movements appear grossly intact. No icterus. Oropharynx: Slightly dry mucosa. NECK: Supple. LUNGS: Decreased breath sounds bilaterally. HEART: Regular S1, S2, without murmurs. ABDOMEN: Bowel sounds present. Soft. No significant tenderness appreciated. RECTAL: Not performed. EXTREMITIES: No clubbing, cyanosis or edema. SKIN: No rash. NEUROLOGIC: Unable to fully assess since the patient is somnolent. PSYCHIATRIC: The patient appears calm. LABORATORY DATA: WBC 17.1, platelets 282, 76% neutrophils, 13% lymphocytes, hemoglobin 12.1, creatinine 0.59, BUN 7, sodium 140. IMPRESSION: Pseudomembranous colitis in patient with diarrhea. The only positive stool sample showed norovirus on admission. Stool Clostridium difficile toxin negative. RECOMMENDATIONS: Because of the presence of the pseudomembranes, I recommend treating the patient with the full course of p.o. vancomycin for potential C. difficile despite negative culture PCR toxin assay. The biopsy of the colon should also be followed; GI should be following that. I would give her a 14-day course of p.o. vancomycin. Thank you for this consultation. Jesse Cunningham MD [facility] , 01:20 PM , 01:34 PM REENA
--- NOTE | 2017-12-03 15:47 | P.PN ---
Subjective Interval history: The patient is in bed she is sleepy. Says she is very tired as she had multiple bowel movements diarrhea today. No fever or chills. Still with some abdominal cramps. Not eating much. Has decreased appetite. No fever or chills overnight. Family at bedside her . Colonoscopy results discussed with the patient and family at bedside. Physical Exam Vital signs: Vital Signs 12/02/17 15:58 12/02/17 16:00 12/02/17 20:00 Temperature 98.7 F 98.7 F Pulse Rate 94 H 78 Respiratory Rate 17 Blood Pressure 110/66 118/76 Pulse Oximetry 95 95 98 12/02/17 22:19 12/03/17 00:00 12/03/17 04:00 Temperature 98.5 F 98.7 F Pulse Rate 93 H 86 Respiratory Rate 20 16 Blood Pressure 116/72 114/72 Pulse Oximetry 95 96 96 12/03/17 07:30 12/03/17 08:00 12/03/17 12:00 Temperature 99.0 F 98.7 F Pulse Rate 92 H 93 H 94 H Respiratory Rate 18 18 Blood Pressure 122/69 138/67 Pulse Oximetry 96 95 Intake & Output 12/02/17 12/03/17 12/03/17 18:59 06:59 18:59 Intake Total 1410 / 1410 210 / 210 465 / 465 Balance 1410 / 1410 210 / 210 465 / 465 Weight 64.8 kg Intake: IV 1210 / 1210 210 / 210 105 / 105 D5W + KCL 20 mEq Inj 1,000 ML @ 1000 / 1000 50 mls/hr IV.SIG .Q20H [facility] Rx# :[id number] Depacon Inj 500 MG In NS Inj 210 / 210 210 / 210 105 / 105 100 ML @ 105 mls/hr IV.SIG Q6H [facility] Rx#:[id number] Oral 0 / 0 360 / 360 Anesthesia Amount 200 / 200 Other: # Voids 6 4 Date of Last Bowel Movement 12/03/17 12/03/17 # Bowel Movements 1 4 Narrative: GENERAL: 62-year-old female, somnolent, chronically ill appearing. SKIN: Pale. Warm and dry. EYES: No scleral icterus. NECK: Supple, trachea midline. No JVD. CARDIOVASCULAR: Regular rate and rhythm without murmurs, gallops, or rubs. RESPIRATORY: Breath sounds equal bilaterally. No accessory muscle use. GASTROINTESTINAL: Abdomen soft, non-tender, nondistended. Positive bowel sounds. MUSCULOSKELETAL: No cyanosis, or edema. Results - Labs CBC & Chem 7: 12/03/17 11:13 12/03/17 11:13 Laboratory Results - last 24 hr 11/24/17 11/28/17 12/03/17 13:08 06:52 08:50 WBC RBC Hgb Hct MCV MCH MCHC RDW Plt Count MPV Prelim Diff (Auto) Neut % (Auto) Lymph % (Auto) Gregg % (Auto) Eos % (Auto) Baso % (Auto) Neut # (Auto) Lymph # (Auto) Gregg # (Auto) Eos # (Auto) Baso # (Auto) WBC Differential Seg Neuts % (Manual) Band Neuts % (Manual) Lymphocytes % (Manual) Monocytes % (Manual) Eosinophils % (Manual) Myelocytes % (Man) Abs Neuts (Manual) Differential Comment Platelet Estimate Platelet Morphology RBC Morphology Sodium Potassium Chloride Carbon Dioxide Anion Gap BUN Creatinine Estimated GFR POC Glucose 91 Random Glucose Calcium Phosphorus Magnesium Albumin PEP Pathologist Comment Misc Test Result 12/03/17 12/03/17 11:13 11:13 WBC 17.1 H RBC 3.70 L Hgb 12.1 Hct 35.7 MCV 96.5 MCH 32.6 MCHC 33.8 RDW 14.5 Plt Count 282 MPV 10.8 Prelim Diff (Auto) Slide review pending Neut % (Auto) 76.8 H Lymph % (Auto) 13.3 Gregg % (Auto) 8.9 H Eos % (Auto) 0.4 Baso % (Auto) 0.6 Neut # (Auto) 13.2 H Lymph # (Auto) 2.3 Gregg # (Auto) 1.5 H Eos # (Auto) 0.1 Baso # (Auto) 0.1 WBC Differential Manual diff final Seg Neuts % (Manual) 59 Band Neuts % (Manual) 13 H Lymphocytes % (Manual) 18 Monocytes % (Manual) 6 Eosinophils % (Manual) 2 Myelocytes % (Man) 2 H Abs Neuts (Manual) 12.7 H Differential Comment . Platelet Estimate Normal Platelet Morphology Normal RBC Morphology Normal Sodium 140 Potassium 3.1 L Chloride 108 H Carbon Dioxide 22.3 Anion Gap 10 BUN 7 Creatinine 0.59 Estimated GFR Greater than 89 POC Glucose Random Glucose 107 H Calcium 7.0 L* Phosphorus 2.9 Magnesium 2.0 D Albumin 1.6 L PEP Pathologist Comment Misc Test Result Assessment and Plan - Plan Patient admitted with seizure activity, seen by neurology, and anti-seizure meds started with improvement. Patient also admitted with diarrhea, found to be positive for [place] virus. Severe hypokalemia, non-anion gap metabolic acidosis likely secondary to diarrhea. GI following. Although C. difficile testing was negative on admission, colonoscopy shows pseudomembranous colitis. Patient started on vancomycin 12/02, with pathology pending. 61-year-old female with a past medical history significant for hypertension, dyslipidemia, chronic back pain status post multiple lumbar surgeries on morphine, Percocet, Lyrica and Tizanidine who presents to [facility] ED with altered mental status/acute encephalopathy. Patient is unable to provide any history and therefore history is obtained from discussion with the who is at the bedside as well as review of electronic medical record. Acute encephalopathy/altered mental status: acute, unclear etiology, possibly due to combination of polypharmacy and poor oral intake/dehydration. Rule out infection/stroke. No hx of psychiatric illness although psychiatric component may be contributing, exam waxes/wanes. -CT head reviewed and neg for any acute intracranial abnormality -UDS + opiates. Patient on morphine, Percocet, Lyrica and Tizanidine at home - holding all sedating medications -Ammonia level 10, CBC wnl, afebrile, CXR neg, images reviewed by me -Initial UA not indicative of UTI, however repeat UA with +nitrates, initiated IV Rocephin, await urine culture -Blood cultures with no growth to date -neuro checks, fall/seizure precautions, continuous cardiac monitoring -PT/OT/ST with swallow evaluation, currently NPO -EEG abnormal consistent with encephalopathy -RPR nonreactive, vit B12 321 -avoid all sedating medications, holding home Morphine, Percocet, Lyrica and Tizanidine -Supportive treatment with IVF - changed to D5 1/2 NS with KCl (Na 151 and K 3.0) -Consulted neurology with abnormal EEG, ordered LP and MRI -S/p LP 10/2 - CSF studies unremarkable so far, cultures pending -Started on empiric IV Acyclovir, HSV pending -Brain MRI 10/ suboptimal exam secondary to motion artifact otherwise no acute findings -ESR 24/CRP 0.63 - not significantly elevated to be concerned for arteritis -Repeat EEG 11/24 concerned for status epilepticus, patient already on Keppra and now with worsening EEG, discussed with Dr. Nair, recommends with initiating IV Depakote -Dr. Nair recommending repeat EEG on 11/26 = Follow-up repeat EEG. Appears improved. Pending speech evaluation. = 11/27. Improved mentation. Repeat EEG without seizure activity, although does show metabolic encephalopathy. = 11/28. Again improving mentation. = 11/29. Improving mentation. = 11/30. Mentation back to baseline. Continue medication regimen as per neurology. Appreciate assistance. Elevated troponin, mild: patient denying any chest pain to providers and denies any reported chest pain from the patient. Suspect demand ischemia from tachycardia -EKG with sinus tach, no evidence of ischemia -troponins flat 0.08, 0.13, 0.11 -continuous cardiac monitoring = Patient continues without chest pain. Sepsis Acute community-acquired Norovirus infection Diarrhea: reports 3 watery incontinent BMs, continues to have diarrhea throughout admission Pseudomembranous colitis suspected C. difficile -stool negative for C diff -enteric stool studies pending -give IVF hydration -start lactinex although patient not yet tolerating oral intake -avoid stool softeners -monitor BMs = Norovirus infection. Patient is on isolation. Will continue IV fluids. Continue to monitor. = 11/29. Continue symptomatic treatment. IV fluids. Continue to monitor. GI following. Appreciate assistance. = 11/30. With leukocytosis up to 15 today. Tachycardia continues. Sepsis secondary to acute community-acquired norovirus infection. Continue symptomatic treatment. Appreciate GI assistance. =12/01. Appreciate GI assistance. Plan for colonoscopy tomorrow. =12/02. Pseudomembranous colitis seen on colonoscopy. We'll start on vancomycin. Follow up pathology. Due to negative C. difficile testing on admission, infectious disease consulted. UTI: Repeat UA 11/24 with +nitrates -Started on IV Rocephin 1g daily -Preliminary urine culture with gram negative rods, continue to monitor = Discontinue ceftriaxone status post 3+ days treatment. Patient without symptoms. = Status post treatment. Repeat urinalysis noninfectious Low TSH, 0.114 -Free T4 wnl -Outpatient f/up with PCP and repeat TSH/T4 Hypernatremia/Hypokalemia: Na 151 and K 3.0. Suspect iatrogenic from IVF in combination with poor oral intake -change IVF from NS to D5W @ 84cc/hr with KCl replacement -Repeat BMP this afternoon and in am = Continues with hypernatremia despite D5 infusion. Will consult nephrology. = 11/27. Patient has been approved for diet. Hopefully this will improve hypokalemia. Hypophosphatemia with phosphorus of 1.5 today. We will continue IV fluids. = 11/27. Phosphorus improved to 2.2. Monitor. Hyponatremia as per nephrology. Appreciate assistance. = 12/01. Hypokalemia. 2.7again. Replace and monitor.nephrology following. Appreciate assistance. =12/02. 3.2. Replaced. Hypophosphatemia. improved after placement. Continue to monitor. Non-anion gap metabolic acidosis. Likely secondary to bicarb loss from diarrhea. Continue symptom medic treatment. Continue to monitor. = Nephrology following. Appreciate assistance. = Improved on IV fluids. Nephrology following. Appreciate assistance. DVT prophylaxis -Heparin sq Discharge Planning: Discharge pending further clinical improvement. Patient still with encephalopathy/AMS. Not yet ready for discharge. Still with diarrhea, non-anion gap metabolic acidosis, metabolic encephalopathy. We will need neurology clearance.
[2017-12-04] MEDS: Valproate Inj 500 MG in Sodium Chlor 0.9% Inj 100 ML IV.SIG SCH ×4 (03:25→21:55)
[2017-12-04] MEDS: KCL 20 mEq/Dextrose 5% Inj 1,000 ML IV.SIG SCH ×2 (03:26→23:39)
[2017-12-04] MEDS: Famotidine 20 MG Tablet PO SCH ×2 (09:27→21:56)
[2017-12-04] MEDS: Senna/Docusate Sodium 8.6/50 MG Tablet PO SCH ×2 (09:27→21:56)
[2017-12-04] MEDS: Lidocaine 5% Patch T-DERMAL SCH (09:28)
[2017-12-04] MEDS: Sodium Chloride 0.9% 2 ML Flush BID IV.FLUSH SCH ×2 (09:28→21:56)
--- NOTE | 2017-12-04 15:40 | P.PN ---
Subjective Interval history: She is in bed still with diarrhea 6 times since yesterday. However feels improving a little bit today has more strength. She is still tired and still with generalized weakness. Eating better. No fever or chills overnight. Less abdominal cramps. Physical Exam Vital signs: Vital Signs 12/03/17 16:00 12/03/17 16:55 12/03/17 20:00 Temperature 98.7 F 98.0 F Pulse Rate 97 H 97 H Respiratory Rate 18 18 Blood Pressure 110/80 113/67 Pulse Oximetry 95 93 L 96 12/03/17 23:30 12/04/17 00:00 12/04/17 04:00 Temperature 98.2 F 98.1 F Pulse Rate 95 H 90 88 Respiratory Rate 18 18 Blood Pressure 110/60 112/62 Pulse Oximetry 95 96 12/04/17 08:00 12/04/17 12:00 Temperature 98.4 F 97.3 F L Pulse Rate 87 89 Respiratory Rate 18 18 Blood Pressure 130/76 115/82 Pulse Oximetry 97 96 Intake & Output 12/03/17 12/04/17 12/04/17 18:59 06:59 18:59 Intake Total 1050 / 1050 210 / 210 1105 / 1105 Balance 1050 / 1050 210 / 210 1105 / 1105 Weight 65 kg Intake: IV 210 / 210 210 / 210 1105 / 1105 D5W + KCL 20 mEq Inj 1,000 ML @ 1000 / 1000 50 mls/hr IV.SIG .Q20H [facility] Rx# :[id number] Depacon Inj 500 MG In NS Inj 210 / 210 210 / 210 105 / 105 100 ML @ 105 mls/hr IV.SIG Q6H [facility] Rx#:[id number] Oral 840 / 840 Other: # Voids 4 Date of Last Bowel Movement 12/03/17 12/04/17 # Bowel Movements 1 Narrative: GENERAL: 62-year-old female, chronically ill appearing. SKIN: Pale. Warm and dry. EYES: No scleral icterus. NECK: Supple, trachea midline. No JVD. CARDIOVASCULAR: Regular rate and rhythm without murmurs, gallops, or rubs. RESPIRATORY: Breath sounds equal bilaterally. No accessory muscle use. GASTROINTESTINAL: Abdomen soft, non-tender, nondistended. Positive bowel sounds. MUSCULOSKELETAL: No cyanosis, or edema. Results - Labs CBC & Chem 7: 10/11/18 11:13 12/03/17 11:13 Laboratory Results - last 24 hr 12/03/17 12/03/17 12/04/17 18:50 21:52 07:47 POC Glucose 86 101 93 Assessment and Plan - Plan Patient admitted with seizure activity, seen by neurology, and anti-seizure meds started with improvement. Patient also admitted with diarrhea, found to be positive for [place] virus. Severe hypokalemia, non-anion gap metabolic acidosis likely secondary to diarrhea. GI following. Although C. difficile testing was negative on admission, colonoscopy shows pseudomembranous colitis. Patient started on vancomycin 12/02, with pathology pending. 61-year-old female with a past medical history significant for hypertension, dyslipidemia, chronic back pain status post multiple lumbar surgeries on morphine, Percocet, Lyrica and Tizanidine who presents to [facility] ED with altered mental status/acute encephalopathy. Patient is unable to provide any history and therefore history is obtained from discussion with the who is at the bedside as well as review of electronic medical record. Acute encephalopathy/altered mental status: acute, unclear etiology, possibly due to combination of polypharmacy and poor oral intake/dehydration. Rule out infection/stroke. No hx of psychiatric illness although psychiatric component may be contributing, exam waxes/wanes. -CT head reviewed and neg for any acute intracranial abnormality -UDS + opiates. Patient on morphine, Percocet, Lyrica and Tizanidine at home - holding all sedating medications -Ammonia level 10, CBC wnl, afebrile, CXR neg, images reviewed by me -Initial UA not indicative of UTI, however repeat UA with +nitrates, initiated IV Rocephin, await urine culture -Blood cultures with no growth to date -neuro checks, fall/seizure precautions, continuous cardiac monitoring -PT/OT/ST with swallow evaluation, currently NPO -EEG abnormal consistent with encephalopathy -RPR nonreactive, vit B12 321 -avoid all sedating medications, holding home Morphine, Percocet, Lyrica and Tizanidine -Supportive treatment with IVF - changed to D5 1/2 NS with KCl (Na 151 and K 3.0) -Consulted neurology with abnormal EEG, ordered LP and MRI -S/p LP / - CSF studies unremarkable so far, cultures pending -Started on empiric IV Acyclovir, HSV pending -Brain MRI 11/24 suboptimal exam secondary to motion artifact otherwise no acute findings -ESR 24/CRP 0.63 - not significantly elevated to be concerned for arteritis -Repeat EEG 11/24 concerned for status epilepticus, patient already on Keppra and now with worsening EEG, discussed with Dr. Nair, recommends with initiating IV Depakote -Dr. Nair recommending repeat EEG on 11/26 = Follow-up repeat EEG. Appears improved. Pending speech evaluation. = 11/27. Improved mentation. Repeat EEG without seizure activity, although does show metabolic encephalopathy. = 11/28. Again improving mentation. = 11/29. Improving mentation. = 11/30. Mentation back to baseline. Continue medication regimen as per neurology. Appreciate assistance. Elevated troponin, mild: patient denying any chest pain to providers and denies any reported chest pain from the patient. Suspect demand ischemia from tachycardia -EKG with sinus tach, no evidence of ischemia -troponins flat 0.08, 0.13, 0.11 -continuous cardiac monitoring = Patient continues without chest pain. Sepsis Acute community-acquired Norovirus infection Diarrhea: reports 3 watery incontinent BMs, continues to have diarrhea throughout admission Pseudomembranous colitis suspected C. difficile -stool negative for C diff -enteric stool studies pending -give IVF hydration -start lactinex although patient not yet tolerating oral intake -avoid stool softeners -monitor BMs = Norovirus infection. Patient is on isolation. Will continue IV fluids. Continue to monitor. = 11/29. Continue symptomatic treatment. IV fluids. Continue to monitor. GI following. Appreciate assistance. = 11/30. With leukocytosis up to 15 today. Tachycardia continues. Sepsis secondary to acute community-acquired norovirus infection. Continue symptomatic treatment. Appreciate GI assistance. =12/01. Appreciate GI assistance. Plan for colonoscopy tomorrow. =12/02. Pseudomembranous colitis seen on colonoscopy. We'll start on vancomycin. Follow up pathology. Due to negative C. difficile testing on admission, infectious disease consulted. UTI: Repeat UA 11/24 with +nitrates -Started on IV Rocephin 1g daily -Preliminary urine culture with gram negative rods, continue to monitor = Discontinue ceftriaxone status post 3+ days treatment. Patient without symptoms. = Status post treatment. Repeat urinalysis noninfectious Low TSH, 0.114 -Free T4 wnl -Outpatient f/up with PCP and repeat TSH/T4 Hypernatremia/Hypokalemia: Na 151 and K 3.0. Suspect iatrogenic from IVF in combination with poor oral intake -change IVF from NS to D5W @ 84cc/hr with KCl replacement -Repeat BMP this afternoon and in am = Continues with hypernatremia despite D5 infusion. Will consult nephrology. = 11/27. Patient has been approved for diet. Hopefully this will improve hypokalemia. Hypophosphatemia with phosphorus of 1.5 today. We will continue IV fluids. = 11/27. Phosphorus improved to 2.2. Monitor. Hyponatremia as per nephrology. Appreciate assistance. = 12/01. Hypokalemia. 2.7again. Replace and monitor.nephrology following. Appreciate assistance. =12/02. 3.2. Replaced. Hypophosphatemia. improved after placement. Continue to monitor. Non-anion gap metabolic acidosis. Likely secondary to bicarb loss from diarrhea. Continue symptom medic treatment. Continue to monitor. = Nephrology following. Appreciate assistance. = Improved on IV fluids. Nephrology following. Appreciate assistance. DVT prophylaxis -Heparin sq Discharge Planning: Discharge pending further clinical improvement. Patient still with encephalopathy/AMS. Not yet ready for discharge. Still with diarrhea, non-anion gap metabolic acidosis, metabolic encephalopathy. We will need neurology clearance.
[2017-12-05] MEDS: KCL 20 mEq/Dextrose 5% Inj 1,000 ML IV.SIG SCH (04:56)
[2017-12-05] MEDS: Valproate Inj 500 MG in Sodium Chlor 0.9% Inj 100 ML IV.SIG SCH ×4 (04:56→21:37)
[2017-12-05 06:18] LABS: Baso % (Auto) 0.2 % (0.0-2.0); Eos # (Auto) 0.1 th/mm3 (0.0-0.4); Eos % (Auto) 0.6 % (0.0-4.0); Hematocrit 34.2 % (35.0-46.0); Hemoglobin 11.6 gm/dL (11.6-15.3); Lymph # (Auto) 3.6 th/mm3 (1.0-4.8); Lymph % (Auto) 29.4 % (9.0-44.0); Mean Corpuscular Hemoglobin 32.2 pg (27.0-34.0); Mean Corpuscular Volume 94.7 fL (80.0-100.0); Mean Platelet Volume 10.3 fL (7.0-11.0); Mono # (Auto) 1.1 th/mm3 (0.0-0.9); Mono % (Auto) 8.8 % (0.0-8.0); Neut # (Auto) 7.4 th/mm3 (1.8-7.7); Platelet Count 278 th/mm3 (150-450); Red Blood Count 3.62 mil/mm3 (4.00-5.30); White Blood Count 12.1 th/mm3 (4.0-11.0)
[2017-12-05 06:33] LABS: Anion Gap 10 meq/L (5-15); Blood Urea Nitrogen 4 mg/dL (7-18); Calcium 6.9 mg/dL (8.5-10.1); Carbon Dioxide 22.4 meq/L (21.0-32.0); Chloride 110 meq/L (98-107); Glomerular Filtration Rate Greater Than 89 mL/min (>89); Glucose,Random 81 mg/dL (74-106); Potassium 3.1 meq/L (3.5-5.1); Sodium 142 meq/L (136-145)
[2017-12-05 07:10] LABS: Total Protein 3.9 g/dL (6.4-8.2)
[2017-12-05 09:18] LABS: Lymphocytes 34 % (9-44); Metamyelocytes 1 % (0-1); Monocytes 5 % (0-8); Myelocytes 16 % (0-0); Platelet Estimate Normal (Normal); Platelet Morphology Normal (Normal); Promyelocyte 1 % (0-0); Toxic Granulation 1+
[2017-12-05] MEDS: Lidocaine 5% Patch T-DERMAL SCH (09:26)
[2017-12-05] MEDS: Famotidine 20 MG Tablet PO SCH ×2 (09:27→21:37)
[2017-12-05] MEDS: Sodium Chloride 0.9% 2 ML Flush BID IV.FLUSH SCH ×2 (09:27→21:38)
[2017-12-05] MEDS: Senna/Docusate Sodium 8.6/50 MG Tablet PO SCH ×2 (09:27→21:37)
[2017-12-05] MEDS ORDERED: Magnesium Oxide 400 MG Tablet PO ONE (10:48)
[2017-12-05] MEDS ORDERED: Potassium Bicarbonate 25 MEQ Effervescent Tablet PO ONE (10:48)
--- NOTE | 2017-12-05 10:48 | P.PN ---
Subjective Interval history: In bed he appears tired. Patient says he was up in the chair yesterday however not today because he feels worn out. Feels lightheaded. Feels very weak however no new motor deficit or change in vision. No fever or chills. Physical Exam Vital signs: Vital Signs 12/04/17 12:00 12/04/17 16:00 12/04/17 17:10 Temperature 97.3 F L 98.2 F Pulse Rate 88 85 Respiratory Rate 18 18 Blood Pressure 115/82 126/77 Pulse Oximetry 96 98 98 12/04/17 20:00 12/05/17 00:00 12/05/17 04:00 Temperature 98.2 F 98 F 98 F Pulse Rate 92 H 90 85 Respiratory Rate 16 17 16 Blood Pressure 121/78 110/77 120/76 Pulse Oximetry 98 97 98 12/05/17 08:00 Temperature 98 F Pulse Rate 81 Respiratory Rate 17 Blood Pressure 124/82 Pulse Oximetry 96 Intake & Output 12/04/17 12/05/17 12/05/17 18:59 06:59 18:59 Intake Total 1210 / 1210 930 / 930 105 / 105 Balance 1210 / 1210 930 / 930 105 / 105 Intake: IV 1210 / 1210 210 / 210 105 / 105 D5W + KCL 20 mEq Inj 1,000 ML @ 1000 / 1000 50 mls/hr IV.SIG .Q20H [facility] Rx# :[id number] Depacon Inj 500 MG In NS Inj 210 / 210 210 / 210 105 / 105 100 ML @ 105 mls/hr IV.SIG Q6H [facility] Rx#:[id number] Oral 720 / 720 Other: # Voids 4 4 Date of Last Bowel Movement 12/05/17 # Bowel Movements 2 Narrative: GENERAL: 62-year-old female, chronically ill appearing. SKIN: Pale. Warm and dry. EYES: No scleral icterus. NECK: Supple, trachea midline. No JVD. CARDIOVASCULAR: Regular rate and rhythm without murmurs, gallops, or rubs. RESPIRATORY: Breath sounds equal bilaterally. No accessory muscle use. GASTROINTESTINAL: Abdomen soft, non-tender, nondistended. Positive bowel sounds. MUSCULOSKELETAL: No cyanosis, or edema. Results - Labs CBC & Chem 7: 12/05/17 04:47 12/05/17 04:47 Laboratory Results - last 24 hr 12/04/17 12/04/17 12/05/17 17:27 22:07 04:47 WBC 12.1 H RBC 3.62 L Hgb 11.6 Hct 34.2 L MCV 94.7 MCH 32.2 MCHC 34.0 RDW 15.0 Plt Count 278 MPV 10.3 Prelim Diff (Auto) Slide review pending Neut % (Auto) 61.0 Lymph % (Auto) 29.4 [place] % (Auto) 8.8 H Eos % (Auto) 0.6 Baso % (Auto) 0.2 Neut # (Auto) 7.4 Lymph # (Auto) 3.6 [place] # (Auto) 1.1 H Eos # (Auto) 0.1 Baso # (Auto) 0.0 WBC Differential Manual diff final Seg Neuts % (Manual) 37 Band Neuts % (Manual) 6 Lymphocytes % (Manual) 34 Monocytes % (Manual) 5 Metamyelocytes % (Man) 1 Myelocytes % (Man) 16 H Promyelocytes % (Man) 1 H Abs Neuts (Manual) 7.4 Differential Comment . Toxic Granulation 1+ H Platelet Estimate Normal Platelet Morphology Normal Sodium Potassium Chloride Carbon Dioxide Anion Gap BUN Creatinine Estimated GFR POC Glucose 97 126 H Random Glucose Calcium Prot Corrected Calcium Total Protein 12/05/17 04:47 WBC RBC Hgb Hct MCV MCH MCHC RDW Plt Count MPV Prelim Diff (Auto) Neut % (Auto) Lymph % (Auto) [place] % (Auto) Eos % (Auto) Baso % (Auto) Neut # (Auto) Lymph # (Auto) [place] # (Auto) Eos # (Auto) Baso # (Auto) WBC Differential Seg Neuts % (Manual) Band Neuts % (Manual) Lymphocytes % (Manual) Monocytes % (Manual) Metamyelocytes % (Man) Myelocytes % (Man) Promyelocytes % (Man) Abs Neuts (Manual) Differential Comment Toxic Granulation Platelet Estimate Platelet Morphology Sodium 142 Potassium 3.1 L Chloride 110 H Carbon Dioxide 22.4 Anion Gap 10 BUN 4 L Creatinine 0.51 Estimated GFR Greater than 89 POC Glucose Random Glucose 81 Calcium 6.9 L* Prot Corrected Calcium 8.7 Total Protein 3.9 L D Assessment and Plan - Plan Patient admitted with seizure activity, seen by neurology, and anti-seizure meds started with improvement. Patient also admitted with diarrhea, found to be positive for [place] virus. Severe hypokalemia, non-anion gap metabolic acidosis likely secondary to diarrhea. GI following. Although C. difficile testing was negative on admission, colonoscopy shows pseudomembranous colitis. Patient started on vancomycin 12/02, with pathology pending. 61-year-old female with a past medical history significant for hypertension, dyslipidemia, chronic back pain status post multiple lumbar surgeries on morphine, Percocet, Lyrica and Tizanidine who presents to [facility] ED with altered mental status/acute encephalopathy. Patient is unable to provide any history and therefore history is obtained from discussion with the who is at the bedside as well as review of electronic medical record. Acute encephalopathy/altered mental status: acute, unclear etiology, possibly due to combination of polypharmacy and poor oral intake/dehydration. Rule out infection/stroke. No hx of psychiatric illness although psychiatric component may be contributing, exam waxes/wanes. -CT head reviewed and neg for any acute intracranial abnormality -UDS + opiates. Patient on morphine, Percocet, Lyrica and Tizanidine at home - holding all sedating medications -Ammonia level 10, CBC wnl, afebrile, CXR neg, images reviewed by me -Initial UA not indicative of UTI, however repeat UA with +nitrates, initiated IV Rocephin, await urine culture -Blood cultures with no growth to date -neuro checks, fall/seizure precautions, continuous cardiac monitoring -PT/OT/ST with swallow evaluation, currently NPO -EEG abnormal consistent with encephalopathy -RPR nonreactive, vit B12 321 -avoid all sedating medications, holding home Morphine, Percocet, Lyrica and Tizanidine -Supportive treatment with IVF - changed to D5 1/2 NS with KCl (Na 151 and K 3.0) -Consulted neurology with abnormal EEG, ordered LP and MRI -S/p LP 11/24 - CSF studies unremarkable so far, cultures pending -Started on empiric IV Acyclovir, HSV pending -Brain MRI 11/24 suboptimal exam secondary to motion artifact otherwise no acute findings -ESR 24/CRP 0.63 - not significantly elevated to be concerned for arteritis -Repeat EEG 11/24 concerned for status epilepticus, patient already on Keppra and now with worsening EEG, discussed with Dr. Nair, recommends with initiating IV Depakote -Dr. Nair recommending repeat EEG on 11/26 = Follow-up repeat EEG. Appears improved. Pending speech evaluation. = 11/27. Improved mentation. Repeat EEG without seizure activity, although does show metabolic encephalopathy. = 11/28. Again improving mentation. = 11/29. Improving mentation. = 11/30. Mentation back to baseline. Continue medication regimen as per neurology. Appreciate assistance. Elevated troponin, mild: patient denying any chest pain to providers and denies any reported chest pain from the patient. Suspect demand ischemia from tachycardia -EKG with sinus tach, no evidence of ischemia -troponins flat 0.08, 0.13, 0.11 -continuous cardiac monitoring = Patient continues without chest pain. Sepsis Acute community-acquired Norovirus infection Diarrhea: reports 3 watery incontinent BMs, continues to have diarrhea throughout admission Pseudomembranous colitis suspected C. difficile -stool negative for C diff -enteric stool studies pending -give IVF hydration -start lactinex although patient not yet tolerating oral intake -avoid stool softeners -monitor BMs = Norovirus infection. Patient is on isolation. Will continue IV fluids. Continue to monitor. = 11/29. Continue symptomatic treatment. IV fluids. Continue to monitor. GI following. Appreciate assistance. = 11/30. With leukocytosis up to 15 today. Tachycardia continues. Sepsis secondary to acute community-acquired norovirus infection. Continue symptomatic treatment. Appreciate GI assistance. =12/01. Appreciate GI assistance. Plan for colonoscopy tomorrow. =12/02. Pseudomembranous colitis seen on colonoscopy. We'll start on vancomycin. Follow up pathology. Due to negative C. difficile testing on admission, infectious disease consulted. UTI: Repeat UA 11/24 with +nitrates -Started on IV Rocephin 1g daily -Preliminary urine culture with gram negative rods, continue to monitor = Discontinue ceftriaxone status post 3+ days treatment. Patient without symptoms. = Status post treatment. Repeat urinalysis noninfectious Low TSH, 0.114 -Free T4 wnl -Outpatient f/up with PCP and repeat TSH/T4 Hypernatremia/Hypokalemia: Na 151 and K 3.0. Suspect iatrogenic from IVF in combination with poor oral intake -change IVF from NS to D5W @ 84cc/hr with KCl replacement -Repeat BMP this afternoon and in am = Continues with hypernatremia despite D5 infusion. Will consult nephrology. = 11/27. Patient has been approved for diet. Hopefully this will improve hypokalemia. Hypophosphatemia with phosphorus of 1.5 today. We will continue IV fluids. = 11/27. Phosphorus improved to 2.2. Monitor. Hyponatremia as per nephrology. Appreciate assistance. = 12/01. Hypokalemia. 2.7again. Replace and monitor.nephrology following. Appreciate assistance. =12/02. 3.2. Replaced. Hypophosphatemia. improved after placement. Continue to monitor. Non-anion gap metabolic acidosis. Likely secondary to bicarb loss from diarrhea. Continue symptom medic treatment. Continue to monitor. = Nephrology following. Appreciate assistance. = Improved on IV fluids. Nephrology following. Appreciate assistance. DVT prophylaxis -Heparin sq Discharge Planning: Discharge pending further clinical improvement. Patient still with encephalopathy/AMS. Not yet ready for discharge. Still with diarrhea, non-anion gap metabolic acidosis, metabolic encephalopathy. We will need neurology clearance.
[2017-12-06] MEDS: Valproate Inj 500 MG in Sodium Chlor 0.9% Inj 100 ML IV.SIG SCH ×4 (03:12→21:02)
[2017-12-06] MEDS: KCL 20 mEq/Dextrose 5% Inj 1,000 ML IV.SIG SCH ×2 (03:26→18:40)
[2017-12-06 06:41] LABS: Baso # (Auto) 0.1 th/mm3 (0.0-0.2); Baso % (Auto) 1.1 % (0.0-2.0); Eos # (Auto) 0.1 th/mm3 (0.0-0.4); Eos % (Auto) 0.6 % (0.0-4.0); Hemoglobin 12.5 gm/dL (11.6-15.3); Lymph # (Auto) 3.1 th/mm3 (1.0-4.8); Lymph % (Auto) 26.4 % (9.0-44.0); Mean Corpuscular HGB Conc 33.8 % (32.0-36.0); Mean Corpuscular Hemoglobin 32.5 pg (27.0-34.0); Mean Corpuscular Volume 96.2 fL (80.0-100.0); Mean Platelet Volume 10.9 fL (7.0-11.0); Mono # (Auto) 1.2 th/mm3 (0.0-0.9); Neut # (Auto) 7.2 th/mm3 (1.8-7.7); Neut % (Auto) 61.9 % (16.0-70.0); Platelet Count 185 th/mm3 (150-450); Red Blood Count 3.84 mil/mm3 (4.00-5.30); White Blood Count 11.7 th/mm3 (4.0-11.0)
[2017-12-06 07:01] LABS: Anion Gap 8 meq/L (5-15); Blood Urea Nitrogen 3 mg/dL (7-18); Calcium 7.6 mg/dL (8.5-10.1); Carbon Dioxide 26.4 meq/L (21.0-32.0); Chloride 110 meq/L (98-107); Glomerular Filtration Rate Greater Than 89 mL/min (>89); Glucose,Random 79 mg/dL (74-106); Potassium 3.7 meq/L (3.5-5.1)
[2017-12-06 07:04] LABS: Sodium 144 meq/L (136-145)
[2017-12-06 09:11] LABS: Blast Cells 2 % (0-0); Lymphocytes 23 % (9-44); Metamyelocytes 6 % (0-1); Monocytes 8 % (0-8); Myelocytes 13 % (0-0); Promyelocyte 2 % (0-0)
[2017-12-06 09:13] LABS: Platelet Estimate Normal (Normal); RBC Morphology Normal (Normal)
[2017-12-06] MEDS: Sodium Chloride 0.9% 2 ML Flush BID IV.FLUSH SCH ×2 (11:34→21:03)
[2017-12-06] MEDS: Lidocaine 5% Patch T-DERMAL SCH (11:34)
[2017-12-06] MEDS: Senna/Docusate Sodium 8.6/50 MG Tablet PO SCH ×2 (11:35→21:03)
[2017-12-06] MEDS: Famotidine 20 MG Tablet PO SCH ×2 (11:35→21:02)
--- NOTE | 2017-12-06 16:42 | P.PN ---
Subjective Interval history: The patient is at the margin of the bed, at bedside. Patient with hallucinations and psychotic. The patient is not on any narcotic pain medications or benzos at this time. Will consult psychiatry for evaluation. Patient still with 4 times diarrhea since yesterday. No fever or chills. Less abdominal pain. Physical Exam Vital signs: Vital Signs 12/05/17 17:30 12/05/17 20:00 12/06/17 00:00 Temperature 98.4 F 98.9 F Pulse Rate 95 H 88 Respiratory Rate 15 15 Blood Pressure 133/71 140/82 Pulse Oximetry 99 94 L 96 12/06/17 04:00 12/06/17 08:00 12/06/17 11:23 Temperature 98.3 F 98.2 F Pulse Rate 86 77 Respiratory Rate 17 22 Blood Pressure 154/72 H 124/77 Pulse Oximetry 95 98 98 12/06/17 12:00 Temperature 97.3 F L Pulse Rate 87 Respiratory Rate 22 Blood Pressure 130/76 Pulse Oximetry 98 Intake & Output 12/05/17 12/06/17 12/06/17 18:59 06:59 18:59 Intake Total 930 / 930 1300 / 1300 105 / 105 Balance 930 / 930 1300 / 1300 105 / 105 Weight 66.2 kg Intake: IV 210 / 210 1060 / 1060 105 / 105 D5W + KCL 20 mEq Inj 1,000 ML @ 850 / 850 50 mls/hr IV.SIG .Q20H [facility] Rx# :[id number] Depacon Inj 500 MG In NS Inj 210 / 210 210 / 210 105 / 105 100 ML @ 105 mls/hr IV.SIG Q6H [facility] Rx#:[id number] Oral 720 / 720 240 / 240 Other: # Voids 5 3 Date of Last Bowel Movement 12/05/17 # Bowel Movements 5 2 Narrative: GENERAL: 62-year-old female, chronically ill appearing, hallucinating. Confused. SKIN: Pale. Warm and dry. EYES: No scleral icterus. NECK: Supple, trachea midline. No JVD. CARDIOVASCULAR: Regular rate and rhythm without murmurs, gallops, or rubs. RESPIRATORY: Breath sounds equal bilaterally. No accessory muscle use. GASTROINTESTINAL: Abdomen soft, non-tender, nondistended. Positive bowel sounds. MUSCULOSKELETAL: No cyanosis, or edema. PSYCHIATRIC: Psychotic. Results - Labs CBC & Chem 7: 12/06/17 05:52 12/06/17 05:52 Laboratory Results - last 24 hr 12/06/17 12/06/17 05:52 05:52 WBC 11.7 H RBC 3.84 L Hgb 12.5 Hct 37.0 MCV 96.2 MCH 32.5 MCHC 33.8 RDW 15.0 Plt Count 185 D MPV 10.9 Prelim Diff (Auto) Slide review pending Neut % (Auto) 61.9 Lymph % (Auto) 26.4 [place] % (Auto) 10.0 H Eos % (Auto) 0.6 Baso % (Auto) 1.1 Neut # (Auto) 7.2 Lymph # (Auto) 3.1 [place] # (Auto) 1.2 H Eos # (Auto) 0.1 Baso # (Auto) 0.1 WBC Differential Manual diff final Seg Neuts % (Manual) 42 Band Neuts % (Manual) 3 Lymphocytes % (Manual) 23 Monocytes % (Manual) 8 Basophils % (Manual) 1 Metamyelocytes % (Man) 6 H Myelocytes % (Man) 13 H Promyelocytes % (Man) 2 H Blast Cells % (Manual) 2 H Abs Neuts (Manual) 7.7 Differential Comment . Platelet Estimate Normal Platelet Morphology Enlarged H RBC Morphology Normal Sodium 144 Potassium 3.7 Chloride 110 H Carbon Dioxide 26.4 Anion Gap 8 BUN 3 L Creatinine 0.54 Estimated GFR Greater than 89 Random Glucose 79 Calcium 7.6 L Assessment and Plan - Plan Patient admitted with seizure activity, seen by neurology, and anti-seizure meds started with improvement. Patient also admitted with diarrhea, found to be positive for [place] virus. Severe hypokalemia, non-anion gap metabolic acidosis likely secondary to diarrhea. GI following. Although C. difficile testing was negative on admission, colonoscopy shows pseudomembranous colitis. Patient started on vancomycin 12/02, with pathology pending. 61-year-old female with a past medical history significant for hypertension, dyslipidemia, chronic back pain status post multiple lumbar surgeries on morphine, Percocet, Lyrica and Tizanidine who presents to [facility] ED with altered mental status/acute encephalopathy. Patient is unable to provide any history and therefore history is obtained from discussion with the who is at the bedside as well as review of electronic medical record. Acute encephalopathy/altered mental status: acute, unclear etiology, possibly due to combination of polypharmacy and poor oral intake/dehydration. Rule out infection/stroke. No hx of psychiatric illness although psychiatric component may be contributing, exam waxes/wanes. -CT head reviewed and neg for any acute intracranial abnormality -UDS + opiates. Patient on morphine, Percocet, Lyrica and Tizanidine at home - holding all sedating medications -Ammonia level 10, CBC wnl, afebrile, CXR neg, images reviewed by me -Initial UA not indicative of UTI, however repeat UA with +nitrates, initiated IV Rocephin, await urine culture -Blood cultures with no growth to date -neuro checks, fall/seizure precautions, continuous cardiac monitoring -PT/OT/ST with swallow evaluation, currently NPO -EEG abnormal consistent with encephalopathy -RPR nonreactive, vit B12 321 -avoid all sedating medications, holding home Morphine, Percocet, Lyrica and Tizanidine -Supportive treatment with IVF - changed to D5 1/2 NS with KCl (Na 151 and K 3.0) -Consulted neurology with abnormal EEG, ordered LP and MRI -S/p LP 11/24 - CSF studies unremarkable so far, cultures pending -Started on empiric IV Acyclovir, HSV pending -Brain MRI 11/24 suboptimal exam secondary to motion artifact otherwise no acute findings -ESR 24/CRP 0.63 - not significantly elevated to be concerned for arteritis -Repeat EEG 11/24 concerned for status epilepticus, patient already on Keppra and now with worsening EEG, discussed with Dr. Nair, recommends with initiating IV Depakote -Dr. Nair recommending repeat EEG on 11/26 = Follow-up repeat EEG. Appears improved. Pending speech evaluation. = 11/27. Improved mentation. Repeat EEG without seizure activity, although does show metabolic encephalopathy. = 11/28. Again improving mentation. = 11/29. Improving mentation. = 11/30. Mentation back to baseline. Continue medication regimen as per neurology. Appreciate assistance. 12/06 patient with hallucinations, psychosis. Psychosis, hallucinations. Consult psychiatry for evaluation as patient with psychosis, hallucinations. Will start low dose of seroquel tonight Elevated troponin, mild: patient denying any chest pain to providers and denies any reported chest pain from the patient. Suspect demand ischemia from tachycardia -EKG with sinus tach, no evidence of ischemia -troponins flat 0.08, 0.13, 0.11 -continuous cardiac monitoring = Patient continues without chest pain. Sepsis Acute community-acquired Norovirus infection Diarrhea: reports 3 watery incontinent BMs, continues to have diarrhea throughout admission Pseudomembranous colitis suspected C. difficile -stool negative for C diff -enteric stool studies pending -give IVF hydration -start lactinex although patient not yet tolerating oral intake -avoid stool softeners -monitor BMs = Norovirus infection. Patient is on isolation. Will continue IV fluids. Continue to monitor. = 11/29. Continue symptomatic treatment. IV fluids. Continue to monitor. GI following. Appreciate assistance. = 11/30. With leukocytosis up to 15 today. Tachycardia continues. Sepsis secondary to acute community-acquired norovirus infection. Continue symptomatic treatment. Appreciate GI assistance. =12/01. Appreciate GI assistance. Plan for colonoscopy tomorrow. =12/02. Pseudomembranous colitis seen on colonoscopy. We'll start on vancomycin. Follow up pathology. Due to negative C. difficile testing on admission, infectious disease consulted. UTI: Repeat UA 11/24 with +nitrates -Started on IV Rocephin 1g daily -Preliminary urine culture with gram negative rods, continue to monitor = Discontinue ceftriaxone status post 3+ days treatment. Patient without symptoms. = Status post treatment. Repeat urinalysis noninfectious Low TSH, 0.114 -Free T4 wnl -Outpatient f/up with PCP and repeat TSH/T4 Hypernatremia/Hypokalemia: Na 151 and K 3.0. Suspect iatrogenic from IVF in combination with poor oral intake -change IVF from NS to D5W @ 84cc/hr with KCl replacement -Repeat BMP this afternoon and in am = Continues with hypernatremia despite D5 infusion. Will consult nephrology. = 11/27. Patient has been approved for diet. Hopefully this will improve hypokalemia. Hypophosphatemia with phosphorus of 1.5 today. We will continue IV fluids. = 11/27. Phosphorus improved to 2.2. Monitor. Hyponatremia as per nephrology. Appreciate assistance. = 12/01. Hypokalemia. 2.7again. Replace and monitor.nephrology following. Appreciate assistance. =12/02. 3.2. Replaced. Hypophosphatemia. improved after placement. Continue to monitor. Non-anion gap metabolic acidosis. Likely secondary to bicarb loss from diarrhea. Continue symptom medic treatment. Continue to monitor. = Nephrology following. Appreciate assistance. = Improved on IV fluids. Nephrology following. Appreciate assistance. DVT prophylaxis -Heparin sq Discharge Planning: Discharge pending further clinical improvement. Patient still with encephalopathy/AMS. Not yet ready for discharge. Still with diarrhea, non-anion gap metabolic acidosis, metabolic encephalopathy. We will need neurology clearance. Hallucinations, psychosis consult psychiatry Start seroquel low dose
[2017-12-06] MEDS: QUEtiapine 25 MG Tablet PO SCH (21:02)
[2017-12-07] MEDS: Valproate Inj 500 MG in Sodium Chlor 0.9% Inj 100 ML IV.SIG SCH ×4 (02:20→22:24)
[2017-12-07] MEDS: KCL 20 mEq/Dextrose 5% Inj 1,000 ML IV.SIG SCH ×2 (05:53→12:41)
[2017-12-07 08:16] LABS: Baso # (Auto) 0.1 th/mm3 (0.0-0.2); Baso % (Auto) 0.7 % (0.0-2.0); Eos # (Auto) 0.1 th/mm3 (0.0-0.4); Eos % (Auto) 0.9 % (0.0-4.0); Hematocrit 37.4 % (35.0-46.0); Hemoglobin 12.8 gm/dL (11.6-15.3); Lymph # (Auto) 4.1 th/mm3 (1.0-4.8); Lymph % (Auto) 34.1 % (9.0-44.0); Mean Corpuscular HGB Conc 34.2 % (32.0-36.0); Mean Corpuscular Hemoglobin 32.5 pg (27.0-34.0); Mean Corpuscular Volume 95.1 fL (80.0-100.0); Mean Platelet Volume 9.8 fL (7.0-11.0); Mono # (Auto) 1.2 th/mm3 (0.0-0.9); Mono % (Auto) 9.7 % (0.0-8.0); Neut # (Auto) 6.6 th/mm3 (1.8-7.7); Neut % (Auto) 54.6 % (16.0-70.0); Platelet Count 255 th/mm3 (150-450); Red Blood Count 3.94 mil/mm3 (4.00-5.30); Red Cell Distribution Width 14.7 % (11.6-17.2); White Blood Count 12.1 th/mm3 (4.0-11.0)
[2017-12-07 08:30] LABS: Anion Gap 10 meq/L (5-15); Blood Urea Nitrogen 5 mg/dL (7-18); Calcium 7.9 mg/dL (8.5-10.1); Carbon Dioxide 20.6 meq/L (21.0-32.0); Chloride 112 meq/L (98-107); Glomerular Filtration Rate Greater Than 89 mL/min (>89); Glucose,Random 73 mg/dL (74-106); Potassium 3.4 meq/L (3.5-5.1); Sodium 143 meq/L (136-145)
[2017-12-07] MEDS: Senna/Docusate Sodium 8.6/50 MG Tablet PO SCH ×2 (08:51→22:25)
[2017-12-07] MEDS: Famotidine 20 MG Tablet PO SCH ×2 (08:51→22:25)
[2017-12-07] MEDS: Sodium Chloride 0.9% 2 ML Flush BID IV.FLUSH SCH ×2 (08:51→22:25)
[2017-12-07] MEDS: Lidocaine 5% Patch T-DERMAL SCH (08:52)
[2017-12-07 09:03] LABS: Eosinophils 1 % (0-4); Lymphocytes 39 % (9-44); Metamyelocytes 4 % (0-1); Monocytes 8 % (0-8); Myelocytes 14 % (0-0); Platelet Estimate Normal (Normal); Platelet Morphology Normal (Normal); Toxic Granulation 1+
--- NOTE | 2017-12-07 15:07 | P.PN ---
Subjective Interval history: She is in bed appears in nad. mental status improved a little bit per . Patient is less psychotic today. She was sleepy all night received seroquel at night. Patient is a little sleepy today. Diarrhea is forming now and had only 1 BM today. No fever or chills. Able to eat Physical Exam Vital signs: Vital Signs 12/06/17 16:00 12/06/17 20:00 12/07/17 00:00 Temperature 96.9 F L 98.8 F 98.8 F Pulse Rate 92 H 86 84 Respiratory Rate 23 16 15 Blood Pressure 116/73 162/70 H 152/78 H Pulse Oximetry 97 94 L 95 12/07/17 04:00 12/07/17 08:00 12/07/17 11:02 Temperature 98.4 F 98.2 F Pulse Rate 77 97 H Respiratory Rate 15 17 Blood Pressure 145/68 H 135/65 Pulse Oximetry 99 95 94 L 12/07/17 12:00 Temperature 98.4 F Pulse Rate 82 Respiratory Rate 17 Blood Pressure 103/61 Pulse Oximetry 91 L Intake & Output 12/06/17 12/07/17 12/07/17 18:59 06:59 18:59 Intake Total 670 / 670 1654.5 / 1654.5 105 / 105 Balance 670 / 670 1654.5 / 1654.5 105 / 105 Weight 67.9 kg Intake: IV 210 / 210 1174.5 / 1174.5 105 / 105 D5W + KCL 20 mEq Inj 1,000 ML @ 964.5 / 964.5 50 mls/hr IV.SIG .Q20H [facility] Rx# :[id number] Depacon Inj 500 MG In NS Inj 210 / 210 210 / 210 105 / 105 100 ML @ 105 mls/hr IV.SIG Q6H [facility] Rx#:[id number] Oral 460 / 460 480 / 480 Other: # Voids 4 4 Date of Last Bowel Movement 12/05/17 12/07/17 # Bowel Movements 1 Narrative: GENERAL: 62-year-old female, chronically ill appearing, hallucinating. Confused. SKIN: Pale. Warm and dry. EYES: No scleral icterus. NECK: Supple, trachea midline. No JVD. CARDIOVASCULAR: Regular rate and rhythm without murmurs, gallops, or rubs. RESPIRATORY: Breath sounds equal bilaterally. No accessory muscle use. GASTROINTESTINAL: Abdomen soft, non-tender, nondistended. Positive bowel sounds. MUSCULOSKELETAL: No cyanosis, or edema. PSYCHIATRIC: Psychotic. Results - Labs CBC & Chem 7: 12/07/17 07:47 12/07/17 07:47 Laboratory Results - last 24 hr 11/28/17 11/28/17 12/07/17 06:52 06:52 07:47 WBC 12.1 H RBC 3.94 L Hgb 12.8 Hct 37.4 MCV 95.1 MCH 32.5 MCHC 34.2 RDW 14.7 Plt Count 255 D MPV 9.8 Prelim Diff (Auto) Slide review pending Neut % (Auto) 54.6 Lymph % (Auto) 34.1 [place] % (Auto) 9.7 H Eos % (Auto) 0.9 Baso % (Auto) 0.7 Neut # (Auto) 6.6 Lymph # (Auto) 4.1 [place] # (Auto) 1.2 H Eos # (Auto) 0.1 Baso # (Auto) 0.1 WBC Differential Manual diff final Seg Neuts % (Manual) 32 Band Neuts % (Manual) 1 Lymphocytes % (Manual) 39 Monocytes % (Manual) 8 Eosinophils % (Manual) 1 Basophils % (Manual) 1 Metamyelocytes % (Man) 4 H Myelocytes % (Man) 14 H Abs Neuts (Manual) 6.2 Differential Comment . Toxic Granulation 1+ H Platelet Estimate Normal Platelet Morphology Normal Sodium Potassium Chloride Carbon Dioxide Anion Gap BUN Creatinine Estimated GFR Random Glucose Calcium Vit D 1,25-Dihydroxy 72 Misc Test Result 12/07/17 07:47 WBC RBC Hgb Hct MCV MCH MCHC RDW Plt Count MPV Prelim Diff (Auto) Neut % (Auto) Lymph % (Auto) [place] % (Auto) Eos % (Auto) Baso % (Auto) Neut # (Auto) Lymph # (Auto) [place] # (Auto) Eos # (Auto) Baso # (Auto) WBC Differential Seg Neuts % (Manual) Band Neuts % (Manual) Lymphocytes % (Manual) Monocytes % (Manual) Eosinophils % (Manual) Basophils % (Manual) Metamyelocytes % (Man) Myelocytes % (Man) Abs Neuts (Manual) Differential Comment Toxic Granulation Platelet Estimate Platelet Morphology Sodium 143 Potassium 3.4 L Chloride 112 H Carbon Dioxide 20.6 L Anion Gap 10 BUN 5 L Creatinine 0.52 Estimated GFR Greater than 89 Random Glucose 73 L Calcium 7.9 L Vit D 1,25-Dihydroxy Misc Test Result Assessment and Plan - Plan Patient admitted with seizure activity, seen by neurology, and anti-seizure meds started with improvement. Patient also admitted with diarrhea, found to be positive for [place] virus. Severe hypokalemia, non-anion gap metabolic acidosis likely secondary to diarrhea. GI following. Although C. difficile testing was negative on admission, colonoscopy shows pseudomembranous colitis. Patient started on vancomycin 12/02, with pathology pending. 61-year-old female with a past medical history significant for hypertension, dyslipidemia, chronic back pain status post multiple lumbar surgeries on morphine, Percocet, Lyrica and Tizanidine who presents to [facility] ED with altered mental status/acute encephalopathy. Patient is unable to provide any history and therefore history is obtained from discussion with the who is at the bedside as well as review of electronic medical record. Acute encephalopathy/altered mental status: acute, unclear etiology, possibly due to combination of polypharmacy and poor oral intake/dehydration. Rule out infection/stroke. No hx of psychiatric illness although psychiatric component may be contributing, exam waxes/wanes. -CT head reviewed and neg for any acute intracranial abnormality -UDS + opiates. Patient on morphine, Percocet, Lyrica and Tizanidine at home - holding all sedating medications -Ammonia level 10, CBC wnl, afebrile, CXR neg, images reviewed by me -Initial UA not indicative of UTI, however repeat UA with +nitrates, initiated IV Rocephin, await urine culture -Blood cultures with no growth to date -neuro checks, fall/seizure precautions, continuous cardiac monitoring -PT/OT/ST with swallow evaluation, currently NPO -EEG abnormal consistent with encephalopathy -RPR nonreactive, vit B12 321 -avoid all sedating medications, holding home Morphine, Percocet, Lyrica and Tizanidine -Supportive treatment with IVF - changed to D5 1/2 NS with KCl (Na 151 and K 3.0) -Consulted neurology with abnormal EEG, ordered LP and MRI -S/p LP 10/2 - CSF studies unremarkable so far, cultures pending -Started on empiric IV Acyclovir, HSV pending -Brain MRI 10/ suboptimal exam secondary to motion artifact otherwise no acute findings -ESR 24/CRP 0.63 - not significantly elevated to be concerned for arteritis -Repeat EEG 11/24 concerned for status epilepticus, patient already on Keppra and now with worsening EEG, discussed with Dr. Nair, recommends with initiating IV Depakote -Dr. Nair recommending repeat EEG on 11/26 = Follow-up repeat EEG. Appears improved. Pending speech evaluation. = 11/27. Improved mentation. Repeat EEG without seizure activity, although does show metabolic encephalopathy. = 11/28. Again improving mentation. = 11/29. Improving mentation. = 11/30. Mentation back to baseline. Continue medication regimen as per neurology. Appreciate assistance. 12/06 patient with hallucinations, psychosis. Psychosis, hallucinations. Consult psychiatry for evaluation as patient with psychosis, hallucinations. Will start low dose of seroquel tonight Elevated troponin, mild: patient denying any chest pain to providers and denies any reported chest pain from the patient. Suspect demand ischemia from tachycardia -EKG with sinus tach, no evidence of ischemia -troponins flat 0.08, 0.13, 0.11 -continuous cardiac monitoring = Patient continues without chest pain. Sepsis Acute community-acquired Norovirus infection Diarrhea: reports 3 watery incontinent BMs, continues to have diarrhea throughout admission Pseudomembranous colitis suspected C. difficile -stool negative for C diff -enteric stool studies pending -give IVF hydration -start lactinex although patient not yet tolerating oral intake -avoid stool softeners -monitor BMs = Norovirus infection. Patient is on isolation. Will continue IV fluids. Continue to monitor. = 11/29. Continue symptomatic treatment. IV fluids. Continue to monitor. GI following. Appreciate assistance. = 11/30. With leukocytosis up to 15 today. Tachycardia continues. Sepsis secondary to acute community-acquired norovirus infection. Continue symptomatic treatment. Appreciate GI assistance. =12/01. Appreciate GI assistance. Plan for colonoscopy tomorrow. =12/02. Pseudomembranous colitis seen on colonoscopy. We'll start on vancomycin. Follow up pathology. Due to negative C. difficile testing on admission, infectious disease consulted. UTI: Repeat UA 11/24 with +nitrates -Started on IV Rocephin 1g daily -Preliminary urine culture with gram negative rods, continue to monitor = Discontinue ceftriaxone status post 3+ days treatment. Patient without symptoms. = Status post treatment. Repeat urinalysis noninfectious Low TSH, 0.114 -Free T4 wnl -Outpatient f/up with PCP and repeat TSH/T4 Hypernatremia/Hypokalemia: Na 151 and K 3.0. Suspect iatrogenic from IVF in combination with poor oral intake -change IVF from NS to D5W @ 84cc/hr with KCl replacement -Repeat BMP this afternoon and in am = Continues with hypernatremia despite D5 infusion. Will consult nephrology. = 11/27. Patient has been approved for diet. Hopefully this will improve hypokalemia. Hypophosphatemia with phosphorus of 1.5 today. We will continue IV fluids. = 11/27. Phosphorus improved to 2.2. Monitor. Hyponatremia as per nephrology. Appreciate assistance. = 12/01. Hypokalemia. 2.7again. Replace and monitor.nephrology following. Appreciate assistance. =12/02. 3.2. Replaced. Hypophosphatemia. improved after placement. Continue to monitor. Non-anion gap metabolic acidosis. Likely secondary to bicarb loss from diarrhea. Continue symptom medic treatment. Continue to monitor. = Nephrology following. Appreciate assistance. = Improved on IV fluids. Nephrology following. Appreciate assistance. DVT prophylaxis -Heparin sq Discharge Planning: Discharge pending further clinical improvement. Patient still with encephalopathy/AMS. Not yet ready for discharge. Still with diarrhea, non-anion gap metabolic acidosis, metabolic encephalopathy. We will need neurology clearance. Hallucinations, psychosis consult psychiatry Start seroquel low dose Await psych eval Stool is forming Improving. Poss DC 1-2 days if mentation at baseline and formed stools, able to eat
--- NOTE | 2017-12-07 19:52 | P.CONPSY ---
Provisional Diagnosis Admission Date: November 23, 2017 12:00 History of Present Illness Service: Psychiatry Consult date: 12/07/17 Primary Care Provider: nneka Mark Chief Complaint: altered mental status/encephalopathy History of Present Illness: This is a request for a psychiatric consult. Documentation was reviewed, case was discussed with nursing and patient was evaluated. Patient was interviewed with her in the room. describes episodes that began over the last 2 weeks where patient seemed absent mentally with a spoken a aphasia. She was initially diagnosed with acute encephalopathy and was confused and not oriented. Today, per nursing patient has been on good behavior. They have not observed any agitation or bizarre behavior or thought process. I spoke with the at length and he feels that Iris has made an improvement over the past couple of days and today has not said anything that made no sense to him. Patient denies auditory or visual hallucinations. No delusions elicited. Denies any mood or anxiety symptoms. Past psych: Denies inpatient, outpatient, medication history denies suicide attempts Past medical: See chart, chronic back pain Past Famhx: Denies Past Social: Patient has 1 child and has been for the last 20 years. She is currently retired and was working as a teacher. She denies any alcohol or drug use. She grew up in [facility] Review of Systems All other systems reviewed negative except as stated in HPI PMFSH - History History Provided By: Family Member, Medical Record - Medical History Medical History: Medical History (Last Reviewed 12/07/17 @ 08:30 by Jade Zapien [employer] Developer Architect, [employer]) HTN (hypertension) Chronic pain Hyperlipidemia - Surgical History Surgical History: Surgical History (Last Reviewed 12/04/17 @ 11:08 by Andie Oseguera) Previous back surgery - Family History Family History: Family History (Last Reviewed 11/30/17 @ 09:19 by Becka Brady) Father Colon cancer - Tobacco History Second Hand Smoke Exposure: No Smoking Status: Current every day smoker Tobacco Type: Cigarettes Packs Per Day: 0.5 - Alcohol History How Often Do You Have a Drink Containing Alcohol: Never - Substance Use History Substance History: No History of Abuse - Travel History Recent Travel in the [place] Within the Last 8 Weeks: No Recent Travel Out of the Country Within the Last 8 Weeks: No - Immunization History Tetanus Immunization: >5 Years Hx Influenza Vaccine This Season: No Medications and Allergies Active Medications: Active Medications Al Hydroxide/Mg Hydroxide (Milk Of Magnesia Liq) 30 ml PO Q12H PRN PRN Reason: Mild Constipation Bisacodyl (Dulcolax Supp) 10 mg RECTAL DAILY PRN PRN Reason: SEVERE CONSITIPATION Cyanocobalamin (Vitamin B12 Inj) 1,000 mcg IM Q7D [facility] Stop: 12/15/17 16:01 Last Admin: 12/01/17 17:16 Dose: 1,000 mcg Dextrose (D50w Vial) 50 ml IV.PUSH UNSCH PRN PRN Reason: PER HYPOGLYCEMIA PROTOCOL Dicyclomine HCl (Bentyl) 20 mg PO TID [facility] Last Admin: 12/07/17 17:29 Dose: 20 mg Famotidine (Pepcid) 20 mg PO BID [facility] Last Admin: 12/07/17 08:51 Dose: 20 mg Glucagon (Glucagon Inj) 1 mg OTHER UNSCH PRN PRN Reason: for Hypoglycemia Protocol Heparin Sodium (Porcine) (Heparin Inj) 5,000 units SQ Q12HR [facility] Last Admin: 12/02/17 09:25 Dose: 5,000 units Valproate Sodium 500 mg/ (Sodium Chloride) 105 mls @ 105 mls/hr IV.SIG Q6H [facility] Last Infusion: 12/07/17 15:21 Dose: Infused Potassium Chloride/Dextrose (D5w + Kcl 20 Meq Inj) 1,000 mls @ 50 mls/hr IV.SIG .Q20H [facility] Last Admin: 12/07/17 12:41 Dose: Not Given Lactulose (Lactulose Liq) 30 ml PO DAILY PRN PRN Reason: SEVERE CONSITIPATION Lidocaine HCl (Lidoderm 5% Patch.12 Hr) 1 patch T-DERMAL DAILY [facility] Last Admin: 12/07/17 08:52 Dose: 1 patch Loperamide HCl (Imodium) 2 mg PO Q6H PRN PRN Reason: DIARRHEA Last Admin: 12/02/17 20:48 Dose: 2 mg Lorazepam (Ativan Inj) 2 mg IV.PUSH Q5M PRN PRN Reason: SEIZURES Multivitamins (Theragran) 1 tab PO DAILY [facility] Last Admin: 12/07/17 08:51 Dose: 1 tab Ondansetron HCl (Zofran Inj) 4 mg IV.PUSH Q6H PRN PRN Reason: NAUSEA OR VOMITING Patch Removal (Remove Old Patch) 1 each T-DERMAL HS [facility] Last Admin: 12/06/17 21:03 Dose: 1 each Pravastatin Sodium (Pravachol) 40 mg PO DAILY [facility] Last Admin: 12/07/17 08:51 Dose: 40 mg Pregabalin (Lyrica) 200 mg PO TID [facility] Last Admin: 12/07/17 17:29 Dose: 200 mg Quetiapine Fumarate (Seroquel) 25 mg PO HS [facility] Last Admin: 12/06/17 21:02 Dose: 25 mg Senna/Docusate Sodium (Kaylyn-Colace) 1 tab PO BID [facility] Last Admin: 12/07/17 08:51 Dose: Not Given Sennosides (Senokot) 17.2 mg PO Q12H PRN PRN Reason: Moderate Constipation Sodium Chloride (Ns Flush) 2 ml IV.FLUSH BID [facility] Last Admin: 12/07/17 08:51 Dose: Not Given Sodium Chloride (Ns Flush) 2 ml IV.FLUSH PRN PRN PRN Reason: FLUSH AFTER USING IV ACCESS Vancomycin HCl (Vancomycin Po) 500 mg PO QID [facility] Last Admin: 12/07/17 17:29 Dose: 500 mg Allergies Allergy/AdvReac Type Severity Reaction Status Date / Time No Known Allergies Allergy Unverified 11/23/17 02:03 Home Medications Medication Instructions Recorded Confirmed Type lisinopril 30 mg PO DAILY 11/23/17 11/23/17 History morphine 30 mg PO BID 11/23/17 11/23/17 History oxycodone-acetaminophen [Percocet] 1 tab PO Q8H PRN 11/23/17 11/23/17 History pravastatin 40 mg PO DAILY 11/23/17 11/23/17 History pregabalin [Lyrica] 200 mg PO TID 11/23/17 11/23/17 History tizanidine 4 mg PO DAILY 11/23/17 11/23/17 History Exam Vital signs: Vital Signs 12/06/17 20:00 12/07/17 00:00 12/07/17 04:00 Temperature 98.8 F 98.8 F 98.4 F Pulse Rate 86 84 77 Respiratory Rate 16 15 15 Blood Pressure 162/70 H 152/78 H 145/68 H Pulse Oximetry 94 L 95 99 12/07/17 08:00 12/07/17 11:02 12/07/17 12:00 Temperature 98.2 F 98.4 F Pulse Rate 97 H 82 Respiratory Rate 17 17 Blood Pressure 135/65 103/61 Pulse Oximetry 95 94 L 91 L 12/07/17 16:00 Temperature 98.4 F Pulse Rate 86 Respiratory Rate 16 Blood Pressure 129/71 Pulse Oximetry 95 Intake & Output 12/07/17 12/07/17 12/08/17 06:59 18:59 06:59 Intake Total 1654.5 / 1654.5 930 / 930 Output Total 2 / 2 Balance 1654.5 / 1654.5 928 / 928 Weight 67.9 kg Intake: IV 1174.5 / 1174.5 210 / 210 D5W + KCL 20 mEq Inj 1,000 ML @ 964.5 / 964.5 50 mls/hr IV.SIG .Q20H [facility] Rx# :[id number] Depacon Inj 500 MG In NS Inj 210 / 210 210 / 210 100 ML @ 105 mls/hr IV.SIG Q6H [facility] Rx#:[id number] Oral 480 / 480 720 / 720 Output: Urine 2 / 2 Other: # Voids 4 Date of Last Bowel Movement 12/05/17 12/07/17 # Bowel Movements 1 1 Mental Status Examination Appearance: Appropriate Consciousness: Alert Orientation: x4 Motor Activity: Normal gait Speech: Hesitant, Slow Language: Adequate Fund of Knowledge: Adequate Attention and Concentration: Adequate Memory: Recent (intact), Remote (intact) Mood: Appropriate Affect: Appropriate Thought Process & Associations: Intact Thought Content: Appropriate Hallucination Type: None Delusion Type: None Suicidal Ideation: No Suicidal Plan: No Suicidal Intention: No Homicidal Ideation: No Homicidal Plan: No Homicidal Intention: No Insight: Fair Judgment: Adequate Assessment and Plan - Assessment (1) Brief psychotic disorder Code(s): F23 - Brief psychotic disorder Status: Acute - Plan Plan: Estimated LOS: [] days Patient psychosis appears to have resolved. Given lack of psychiatric history any symptoms are likely due to a medical condition or her medications Justification for Continued Inpatient Stay: n/a
[2017-12-07] MEDS: QUEtiapine 25 MG Tablet PO SCH (22:25)
[2017-12-08] MEDS: Valproate Inj 500 MG in Sodium Chlor 0.9% Inj 100 ML IV.SIG SCH ×2 (02:30→09:36)
[2017-12-08 05:09] VITALS: RESP 18
[2017-12-08] MEDS: KCL 20 mEq/Dextrose 5% Inj 1,000 ML IV.SIG SCH (09:35)
[2017-12-08] MEDS: Senna/Docusate Sodium 8.6/50 MG Tablet PO SCH (09:38)
[2017-12-08] MEDS: Famotidine 20 MG Tablet PO SCH (09:38)
[2017-12-08] MEDS: Sodium Chloride 0.9% 2 ML Flush BID IV.FLUSH SCH (09:38)
[2017-12-08] MEDS: Lidocaine 5% Patch T-DERMAL SCH (09:38)
--- NOTE | 2017-12-08 10:48 | P.DS ---
Date of admission: 11/23/17 12:00 Primary care physician: nneka Mark Brief History from admission: This is a 61-year-old female with a past medical history significant for hypertension, dyslipidemia, chronic back pain status post multiple lumbar surgeries on morphine, Percocet, Lyrica and Tizanidine who presents to [facility] ED with altered mental status/acute encephalopathy. Patient is unable to provide any history and therefore history is obtained from discussion with the who is at the bedside as well as review of electronic medical record. Patient's states that the past Thursday patient began complaining of sores in her mouth and a slight cough. He denies any associated fever, chills, dizziness, nausea, vomiting, chest pain, shortness of breath or abdominal pain. He does not recall her having any complaints of dysuria or diarrhea. He reports that due to the painful sores in her mouth, she was eating and drinking very little. He says that yesterday she became even more altered and was not able to recognize him at all. He says that she was rocking and not answering any of his questions. Patient's reports that she had a similar episode 2 years ago that was due to dehydration. Patient's states that she has not been taking her normal pain medications for the past several days. Additionally, he denies that she has any history of psychiatric illness or seizure disorder. He does state that she has had 3 episodes of watery incontinent stools since admission. Per review of the EMR, patient did have an admission at this facility in 2016 due to altered mental status secondary to hepatic encephalopathy DS: Medications - Discharge Medications Prescriptions: cyanocobalamin (vitamin B-12) 1,000 mcg IM Q7D #30 ml dicyclomine 20 mg PO TID #30 tab famotidine 20 mg PO BID #60 tab multivitamin with folic acid [Thera] 1 tab PO DAILY #30 tab quetiapine 25 mg PO HS #30 tab valproic acid 500 mg PO TID #90 cap vancomycin 500 mg PO QID 14 Days each DS: Summary Hospital Course: Patient admitted with seizure activity, seen by neurology, and anti-seizure meds started with improvement. Patient also admitted with diarrhea, found to be positive for [place] virus. Severe hypokalemia, non-anion gap metabolic acidosis likely secondary to diarrhea. GI following. Although C. difficile testing was negative on admission, colonoscopy shows pseudomembranous colitis. Patient started on vancomycin 12/02, with pathology pending however consistent with C diff per GI, patient is started on vacomycin PO. Stool with Norovirus. Improved DC home in stable condition . 61-year-old female with a past medical history significant for hypertension, dyslipidemia, chronic back pain status post multiple lumbar surgeries on morphine, Percocet, Lyrica and Tizanidine who presents to [facility] ED with altered mental status/acute encephalopathy. Patient is unable to provide any history and therefore history is obtained from discussion with the who is at the bedside as well as review of electronic medical record. Acute encephalopathy/altered mental status: acute, unclear etiology, possibly due to combination of polypharmacy and poor oral intake/dehydration. Rule out infection/stroke. No hx of psychiatric illness although psychiatric component may be contributing, exam waxes/wanes. -CT head reviewed and neg for any acute intracranial abnormality -UDS + opiates. Patient on morphine, Percocet, Lyrica and Tizanidine at home - holding all sedating medications -Ammonia level 10, CBC wnl, afebrile, CXR neg, images reviewed by me -Initial UA not indicative of UTI, however repeat UA with +nitrates, initiated IV Rocephin, await urine culture -Blood cultures with no growth to date -neuro checks, fall/seizure precautions, continuous cardiac monitoring -PT/OT/ST with swallow evaluation, currently NPO -EEG abnormal consistent with encephalopathy -RPR nonreactive, vit B12 321 -avoid all sedating medications, holding home Morphine, Percocet, Lyrica and Tizanidine -Supportive treatment with IVF - changed to D5 1/2 NS with KCl (Na 151 and K 3.0) -Consulted neurology with abnormal EEG, ordered LP and MRI -S/p LP 11/24 - CSF studies unremarkable so far, cultures pending -Started on empiric IV Acyclovir, HSV pending -Brain MRI 10/ suboptimal exam secondary to motion artifact otherwise no acute findings -ESR 24/CRP 0.63 - not significantly elevated to be concerned for arteritis -Repeat EEG / concerned for status epilepticus, patient already on Keppra and now with worsening EEG, discussed with Dr. Nair, recommends with initiating IV Depakote -Dr. Nair recommending repeat EEG on 11/26 = Follow-up repeat EEG. Appears improved. Pending speech evaluation. = 11/27. Improved mentation. Repeat EEG without seizure activity, although does show metabolic encephalopathy. = 11/28. Again improving mentation. = 11/29. Improving mentation. = 11/30. Mentation back to baseline. Continue medication regimen as per neurology. Appreciate assistance. 12/06 patient with hallucinations, psychosis. Psychosis, hallucinations. Consult psychiatry for evaluation as patient with psychosis, hallucinations. Will start low dose of seroquel tonight Elevated troponin, mild: patient denying any chest pain to providers and denies any reported chest pain from the patient. Suspect demand ischemia from tachycardia -EKG with sinus tach, no evidence of ischemia -troponins flat 0.08, 0.13, 0.11 -continuous cardiac monitoring = Patient continues without chest pain. Sepsis Acute community-acquired Norovirus infection Diarrhea: reports 3 watery incontinent BMs, continues to have diarrhea throughout admission Pseudomembranous colitis suspected C. difficile -stool negative for C diff -enteric stool studies pending -give IVF hydration -start lactinex although patient not yet tolerating oral intake -avoid stool softeners -monitor BMs = Norovirus infection. Patient is on isolation. Will continue IV fluids. Continue to monitor. = 11/29. Continue symptomatic treatment. IV fluids. Continue to monitor. GI following. Appreciate assistance. = 11/30. With leukocytosis up to 15 today. Tachycardia continues. Sepsis secondary to acute community-acquired norovirus infection. Continue symptomatic treatment. Appreciate GI assistance. =12/01. Appreciate GI assistance. Plan for colonoscopy tomorrow. =12/02. Pseudomembranous colitis seen on colonoscopy. We'll start on vancomycin. Follow up pathology. Due to negative C. difficile testing on admission, infectious disease consulted. UTI: Repeat UA 11/24 with +nitrates -Started on IV Rocephin 1g daily -Preliminary urine culture with gram negative rods, continue to monitor = Discontinue ceftriaxone status post 3+ days treatment. Patient without symptoms. = Status post treatment. Repeat urinalysis noninfectious Low TSH, 0.114 -Free T4 wnl -Outpatient f/up with PCP and repeat TSH/T4 Hypernatremia/Hypokalemia: Na 151 and K 3.0. Suspect iatrogenic from IVF in combination with poor oral intake -change IVF from NS to D5W @ 84cc/hr with KCl replacement -Repeat BMP this afternoon and in am = Continues with hypernatremia despite D5 infusion. Will consult nephrology. = 11/27. Patient has been approved for diet. Hopefully this will improve hypokalemia. Hypophosphatemia with phosphorus of 1.5 today. We will continue IV fluids. = 11/27. Phosphorus improved to 2.2. Monitor. Hyponatremia as per nephrology. Appreciate assistance. = 12/01. Hypokalemia. 2.7again. Replace and monitor.nephrology following. Appreciate assistance. =12/02. 3.2. Replaced. Hypophosphatemia. improved after placement. Continue to monitor. Non-anion gap metabolic acidosis. Likely secondary to bicarb loss from diarrhea. Continue symptom medic treatment. Continue to monitor. = Nephrology following. Appreciate assistance. = Improved on IV fluids. Nephrology following. Appreciate assistance. DVT prophylaxis -Heparin sq Discharge Planning: Patient improved and at baseline mentation Diarrhea resolved Hallucinations, psychosis consult psychiatry Started seroquel low dose with improvement. Stool is forming Cleared by consultants for DC Improved, mentation at baseline and formed stools, able to eat. DC home in stable condition to follow up as OP with PCP and consultants - Time Spent with Patient Total time spent providing and/or coordinating discharge services: Greater than 30 minutes - Quality: VTE Deep Vein Thrombosis/Pulmonary Embolism Present on Admission: No Exam Vital signs: Vital Signs 12/07/17 11:02 12/07/17 12:00 12/07/17 16:00 Temperature 98.4 F 98.4 F Pulse Rate 82 86 Respiratory Rate 17 16 Blood Pressure 103/61 129/71 Pulse Oximetry 94 L 91 L 95 12/07/17 20:00 12/08/17 00:00 12/08/17 04:00 Temperature 98.2 F Pulse Rate 85 87 83 Respiratory Rate 20 Blood Pressure 161/85 H Pulse Oximetry 98 12/08/17 05:09 12/08/17 08:00 12/08/17 09:51 Temperature 98.4 F 99.0 F Pulse Rate 92 H 82 Respiratory Rate 18 18 Blood Pressure 141/86 H 128/75 Pulse Oximetry 97 97 97 Intake & Output 12/07/17 12/08/17 12/08/17 18:59 06:59 18:59 Intake Total 930 / 930 1110 / 1110 Output Total 2 / 2 Balance 928 / 928 1110 / 1110 Weight 67.4 kg Intake: IV 210 / 210 1110 / 1110 D5W + KCL 20 mEq Inj 1,000 ML @ 900 / 900 100 / 100 50 mls/hr IV.SIG .Q20H [facility] Rx# :[id number] Depacon Inj 500 MG In NS Inj 210 / 210 210 / 210 105 / 105 100 ML @ 105 mls/hr IV.SIG Q6H [facility] Rx#:[id number] Oral 720 / 720 Output: Urine 2 / 2 Other: Date of Last Bowel Movement 12/07/17 12/07/17 # Bowel Movements 1 Narrative: GENERAL: 62-year-old female, chronically ill appearing, at baseline mentation SKIN: Warm and dry. EYES: No scleral icterus. NECK: Supple, trachea midline. No JVD. CARDIOVASCULAR: Regular rate and rhythm without murmurs, gallops, or rubs. RESPIRATORY: Breath sounds equal bilaterally. No accessory muscle use. GASTROINTESTINAL: Abdomen soft, non-tender, nondistended. Positive bowel sounds. MUSCULOSKELETAL: No cyanosis, or edema. PSYCHIATRIC: Appropriate mood and affect Results Procedures completed during hospitalization: Lumbar Puncture 11/24/17 by IR Completed studies during hospitalization: Pending at discharge 12/02/17 13:36 Surgical [PTH] Routine Labs on day of discharge: Labs from last 24 hours 11/28/17 06:52 Vit D 1,25-Dihydroxy 72 - Impressions ITS Impressions Chest X-Ray 11/23/17 02:03 CONCLUSION: 1. No acute cardiopulmonary disease. Head CT 11/23/17 02:03 CONCLUSION: 1. No acute intracranial abnormality. . Head MRI 11/24/17 00:00 CONCLUSION: 1. Suboptimal examination secondary to motion artifact. 2. No acute hemorrhage or mass effect identified. Lumbar Puncture Fluoroscopy 11/24/17 00:00 CONCLUSION: 1. Uncomplicated fluoroscopically guided lumbar puncture. Discharge Plan - Discharge Disposition Patient Disposition: Discharge Home - Discharge Condition Condition: Stable - Discharge Order Discharge Orders: Discharge Order (Routine); Ordered 12/08/17 Ordered By: Bryanna Barry - Discharge Details Anticipated Discharge Date: 12/08/17 - Physicians Team Attending Provider: Bryanna Barry Other Providers: Hadley Nair MD, PhD ; Kaitlynn Bryant ; Shelley Avalos MD ; Criss Malone MD ; Jesse Cunningham MD ; Eder Covington MD
[2017-12-08 11:27] LABS: Baso # (Auto) 0.1 th/mm3 (0.0-0.2); Baso % (Auto) 0.4 % (0.0-2.0); Eos # (Auto) 0.1 th/mm3 (0.0-0.4); Eos % (Auto) 0.9 % (0.0-4.0); Hematocrit 34.5 % (35.0-46.0); Hemoglobin 11.7 gm/dL (11.6-15.3); Lymph % (Auto) 23.7 % (9.0-44.0); Mean Corpuscular HGB Conc 33.9 % (32.0-36.0); Mean Corpuscular Hemoglobin 32.5 pg (27.0-34.0); Mean Corpuscular Volume 95.7 fL (80.0-100.0); Mean Platelet Volume 9.7 fL (7.0-11.0); Mono # (Auto) 1.4 th/mm3 (0.0-0.9); Platelet Count 236 th/mm3 (150-450); White Blood Count 12.5 th/mm3 (4.0-11.0)
[2017-12-08 11:56] LABS: Anion Gap 9 meq/L (5-15); Blood Urea Nitrogen 8 mg/dL (7-18); Calcium 8.1 mg/dL (8.5-10.1); Carbon Dioxide 24.7 meq/L (21.0-32.0); Chloride 111 meq/L (98-107); Glomerular Filtration Rate Greater Than 89 mL/min (>89); Glucose,Random 91 mg/dL (74-106); Potassium 3.2 meq/L (3.5-5.1); Sodium 145 meq/L (136-145)
[2017-12-08 12:26] LABS: Eosinophils 1 % (0-4); Lymphocytes 26 % (9-44); Metamyelocytes 4 % (0-1); Monocytes 10 % (0-8); Myelocytes 8 % (0-0)
[2017-12-08 12:27] LABS: Platelet Estimate Normal (Normal)
[2017-12-08 12:28] LABS: Platelet Morphology Normal (Normal)
[2017-12-08 15:03] VITALS: BP 126/59; PULSE 97; TEMP 98.2; O2SAT 94
== END 2017-12-08 12:33 | disposition home or self-care (01) ==
LOC: NEPE 01:52 → NEDA 01:52 → NEPFCDU 05:49 → N04 11-25 14:53
PROVIDERS: ADMIT Hospitalist; ATTEND Hospitalist
PROC: COLONOS (2017-12-02 11:22)
PROC: PANENDO (2017-12-02 11:22)

== ENCOUNTER 2017-12-13 07:14 | Observation (INO) ==
--- NOTE | 2017-12-13 07:56 | ED ---
HPI General Chief Complaint: Altered Mental Status Stated Complaint: medical complaint Time Seen by Provider: 12/13/17 07:26 Source: patient Mode of arrival: EMS Limitations: altered mental status History of Present Illness HPI narrative: 62-year-old female was brought in by EMS for altered mental status. Patient was admitted to [facility] November 23 and discharge December 08 for altered mental status, seizure, pseudomembranous colitis. Patient was discharged home with prescription of vancomycin that she has not been taking except the first day and one dose this morning. Patient was advised not to take her chronic back pain medication including morphine, Percocet, Lyrica and tizanidine. Patient's states that patient has not been taking her pain medication. Patient was found lethargic and lying in bed sleeping all day since last night. Patient reported no fever, nausea vomiting at home. Patient denies any headache. Patient denies any chest pain or shortness of breath. Patient denies abdominal pain. Patient denies any focal weakness or numbness extremity. MD complaint: Reports altered mental status Onset (ago): hour(s) Timing confirmed by: spouse Severity: moderate Consistency of symptoms: getting worse Context: Reports history of similar presentation Associated symptoms: Reports denies other symptoms Related Data Home Medications Medication Instructions Recorded Confirmed lisinopril 30 mg PO DAILY 11/23/17 12/13/17 pravastatin 40 mg PO DAILY 11/23/17 12/13/17 tizanidine 4 mg PO DAILY 11/23/17 12/13/17 Previous Rx's Medication Instructions Recorded cyanocobalamin (vitamin B-12) 1,000 mcg IM Q7D #30 ml 12/08/17 dicyclomine 20 mg PO TID #30 tab 12/08/17 famotidine 20 mg PO BID #60 tab 12/08/17 multivitamin with folic acid 1 tab PO DAILY #30 tab 12/08/17 [Thera] quetiapine 25 mg PO HS #30 tab 12/08/17 valproic acid 500 mg PO TID #90 cap 12/08/17 vancomycin 500 mg PO QID 14 Days each 12/08/17 Allergies Allergy/AdvReac Type Severity Reaction Status Date / Time No Known Allergies Allergy Verified 12/13/17 08:04 Review of Systems ROS: all other systems reviewed are negative [facility] Medical History Medical History Chronic pain (Acute) HTN (hypertension) (Acute) Hyperlipidemia (Acute) Surgical History Surgical History Previous back surgery (Acute) Family History Family History Father Colon cancer Social History Social History Substance History: Unable to Obtain Second Hand Smoke Exposure: No Smoking Status: Unknown if ever smoked Tobacco Type: Cigarettes Packs Per Day: 0.5 Cigarettes Per Day: 10.0 How Often Do You Have a Drink Containing Alcohol: Unable to Obtain Recent Travel in [facility] within the Last 8 Weeks: No Recent Out of Country Travel within the Last 8 Weeks: No Immunization History Tetanus Immunization: Unable to Assess Exam Narrative Exam Narrative: GENERAL: Well-nourished, well-developed patient. SKIN: Focused skin assessment warm/dry. HEAD: Normocephalic. EYES: No scleral icterus. No injection or drainage. Pupils 1.5 mm equal reactive. NECK: Supple, trachea midline. No JVD or lymphadenopathy. CARDIOVASCULAR: Regular rate and rhythm without murmurs, gallops, or rubs. RESPIRATORY: Breath sounds equal bilaterally. No accessory muscle use. GASTROINTESTINAL: Abdomen soft, non-tender, nondistended. MUSCULOSKELETAL: No cyanosis, or edema. BACK: Nontender without obvious deformity. No CVA tenderness. Neurologic exam: Patient is lethargic. Patient answer to her name calling. Patient is confused and unable to tell me where she is, what time or date it is. Patient moves extremity on command. No obvious focal neurological deficit. Course Initial Documented Vital Signs Temperature 97.1 F L 12/13/17 07:23 Pulse Rate 100 H 12/13/17 07:23 Respiratory Rate 12 12/13/17 07:23 Blood Pressure 145/79 H 12/13/17 07:23 Pulse Oximetry 100 12/13/17 07:23 Last Documented Vital Signs Temperature 97.1 F L 12/13/17 07:23 Pulse Rate 90 12/13/17 09:31 Respiratory Rate 15 12/13/17 09:31 Blood Pressure 106/65 12/13/17 09:31 Pulse Oximetry 95 12/13/17 09:31 Medical Decision Making MDM Narrative Medical decision making narrative: 62-year-old female with altered mental status. Patient was admitted and discharged recently for altered mental status. Normal saline solution 125 cc an hour. IV change to D5 and a half normal saline solution at 125 cc an hour. D50 25 mL IV given. Vancomycin 1 g IV given. Zosyn 3.375 g IV given. Medical Screen Exam Complete: Yes Emergency Medical Condition: Yes Differential Diagnosis Differential Diagnosis: Differential diagnosis including metabolic encephalopathy, dehydration, electrolyte imbalance, side effect of medications, sepsis TIA, CVA. Lab Data Lab results reviewed: Yes I reviewed the patient's lab results. Result diagrams: 12/13/17 07:45 12/13/17 07:45 Lab Results 12/13/17 12/13/17 12/13/17 Range/Units 07:45 07:45 07:45 WBC 20.0 H (4.0-11.0) th/mm3 RBC 3.59 L (4.00-5.30) mil/mm3 Hgb 11.5 L (11.6-15.3) gm/dL Hct 35.0 (35.0-46.0) % MCV 97.3 (80.0-100.0) fL MCH 31.9 (27.0-34.0) pg MCHC 32.7 (32.0-36.0) % RDW 15.3 (11.6-17.2) % Plt Count 260 (150-450) th/mm3 MPV 10.1 (7.0-11.0) fL Neut % (Auto) 75.8 H (16.0-70.0) % Lymph % (Auto) 14.9 (9.0-44.0) % Caroline % (Auto) 8.6 H (0.0-8.0) % Eos % (Auto) 0.2 (0.0-4.0) % Baso % (Auto) 0.5 (0.0-2.0) % Neut # (Auto) 15.2 H (1.8-7.7) th/mm3 Lymph # (Auto) 3.0 (1.0-4.8) th/mm3 Caroline # (Auto) 1.7 H (0.0-0.9) th/mm3 Eos # (Auto) 0.0 (0.0-0.4) th/mm3 Baso # (Auto) 0.1 (0.0-0.2) th/mm3 WBC Differential . Differential Comment Auto diff final PT 10.9 (9.8-11.6) sec INR 1.1 Ratio APTT 25.2 (24.3-30.1) sec Sodium 143 (136-145) meq/L Potassium 3.7 (3.5-5.1) meq/L Chloride 110 H (98-107) meq/L Carbon Dioxide 22.9 (21.0-32.0) meq/L Anion Gap 10 (5-15) meq/L BUN 10 (7-18) mg/dL Creatinine 0.51 (0.50-1.00) mg/dL Estimated GFR Greater than 89 (>89) mL/min POC Glucose (68-110) mg/dl Random Glucose 63 L (74-106) mg/dL Lactic Acid (0.4-2.0) mmol/L Calcium 7.9 L (8.5-10.1) mg/dL Magnesium 1.4 L (1.5-2.5) mg/dL Total Bilirubin 0.3 (0.2-1.0) mg/dL AST 25 (15-37) U/L ALT 15 (10-53) U/L Alkaline Phosphatase 81 (45-117) U/L Ammonia (11-32) mcmol/L Total Creatine Kinase 424 H (26-192) U/L CK-MB (CK-2) Less than 1.0 (0.5-3.6) ng/mL CK-MB (CK-2) % 0.2 (0.0-4.0) % Troponin I Less than 0.02 L (0.02-0.05) ng/mL Total Protein 5.5 L (6.4-8.2) g/dL Albumin 2.2 L (3.4-5.0) g/dL TSH 0.264 L (0.358-3.740) uIU/mL Urine Color (Yellw/Straw) Urine Clarity (Clear) Urine pH (5.0-8.5) Ur Specific [place] (1.002-1.035) Urine Protein (Neg-Trace) mg/dL Urine Glucose (UA) (Negative) mg/dL Urine Ketones (Negative) mg/dL Urine Occult Blood (Negative) Urine Nitrate (Negative) Urine Bilirubin (Negative) Urine Urobilinogen (Less than 2) mg/dL Ur Leukocyte Esterase (Negative) Urine RBC (0-3) /hpf Urine WBC (0-5) /hpf Urine Mucus (Occasional) /lpf Micro UA Comment Ur Microscopic Review Urine Culture Comments Urine Opiates Screen (Neg) Ur Barbiturates Screen (Neg) Ur Amphetamines Screen (Neg) U Benzodiazepines Scrn (Neg) Urine Cocaine Screen (Neg) U Cannabinoids Screen (Neg) 12/13/17 12/13/17 12/13/17 Range/Units 07:55 07:55 08:35 WBC (4.0-11.0) th/mm3 RBC (4.00-5.30) mil/mm3 Hgb (11.6-15.3) gm/dL Hct (35.0-46.0) % MCV (80.0-100.0) fL MCH (27.0-34.0) pg MCHC (32.0-36.0) % RDW (11.6-17.2) % Plt Count (150-450) th/mm3 MPV (7.0-11.0) fL Neut % (Auto) (16.0-70.0) % Lymph % (Auto) (9.0-44.0) % Caroline % (Auto) (0.0-8.0) % Eos % (Auto) (0.0-4.0) % Baso % (Auto) (0.0-2.0) % Neut # (Auto) (1.8-7.7) th/mm3 Lymph # (Auto) (1.0-4.8) th/mm3 Caroline # (Auto) (0.0-0.9) th/mm3 Eos # (Auto) (0.0-0.4) th/mm3 Baso # (Auto) (0.0-0.2) th/mm3 WBC Differential Differential Comment PT (9.8-11.6) sec INR Ratio APTT (24.3-30.1) sec Sodium (136-145) meq/L Potassium (3.5-5.1) meq/L Chloride (98-107) meq/L Carbon Dioxide (21.0-32.0) meq/L Anion Gap (5-15) meq/L BUN (7-18) mg/dL Creatinine (0.50-1.00) mg/dL Estimated GFR (>89) mL/min POC Glucose (68-110) mg/dl Random Glucose (74-106) mg/dL Lactic Acid 0.8 (0.4-2.0) mmol/L Calcium (8.5-10.1) mg/dL Magnesium (1.5-2.5) mg/dL Total Bilirubin (0.2-1.0) mg/dL AST (15-37) U/L ALT (10-53) U/L Alkaline Phosphatase (45-117) U/L Ammonia 35 H (11-32) mcmol/L Total Creatine Kinase (26-192) U/L CK-MB (CK-2) (0.5-3.6) ng/mL CK-MB (CK-2) % (0.0-4.0) % Troponin I (0.02-0.05) ng/mL Total Protein (6.4-8.2) g/dL Albumin (3.4-5.0) g/dL TSH (0.358-3.740) uIU/mL Urine Color (Yellw/Straw) Urine Clarity (Clear) Urine pH (5.0-8.5) Ur Specific [place] (1.002-1.035) Urine Protein (Neg-Trace) mg/dL Urine Glucose (UA) (Negative) mg/dL Urine Ketones (Negative) mg/dL Urine Occult Blood (Negative) Urine Nitrate (Negative) Urine Bilirubin (Negative) Urine Urobilinogen (Less than 2) mg/dL Ur Leukocyte Esterase (Negative) Urine RBC (0-3) /hpf Urine WBC (0-5) /hpf Urine Mucus (Occasional) /lpf Micro UA Comment Ur Microscopic Review Urine Culture Comments Urine Opiates Screen Neg (Neg) Ur Barbiturates Screen Neg (Neg) Ur Amphetamines Screen Neg (Neg) U Benzodiazepines Scrn Neg (Neg) Urine Cocaine Screen Neg (Neg) U Cannabinoids Screen Neg (Neg) 12/13/17 12/13/17 Range/Units 08:35 09:26 WBC (4.0-11.0) th/mm3 RBC (4.00-5.30) mil/mm3 Hgb (11.6-15.3) gm/dL Hct (35.0-46.0) % MCV (80.0-100.0) fL MCH (27.0-34.0) pg MCHC (32.0-36.0) % RDW (11.6-17.2) % Plt Count (150-450) th/mm3 MPV (7.0-11.0) fL Neut % (Auto) (16.0-70.0) % Lymph % (Auto) (9.0-44.0) % Caroline % (Auto) (0.0-8.0) % Eos % (Auto) (0.0-4.0) % Baso % (Auto) (0.0-2.0) % Neut # (Auto) (1.8-7.7) th/mm3 Lymph # (Auto) (1.0-4.8) th/mm3 Caroline # (Auto) (0.0-0.9) th/mm3 Eos # (Auto) (0.0-0.4) th/mm3 Baso # (Auto) (0.0-0.2) th/mm3 WBC Differential Differential Comment PT (9.8-11.6) sec INR Ratio APTT (24.3-30.1) sec Sodium (136-145) meq/L Potassium (3.5-5.1) meq/L Chloride (98-107) meq/L Carbon Dioxide (21.0-32.0) meq/L Anion Gap (5-15) meq/L BUN (7-18) mg/dL Creatinine (0.50-1.00) mg/dL Estimated GFR (>89) mL/min POC Glucose 62 L (68-110) mg/dl Random Glucose (74-106) mg/dL Lactic Acid (0.4-2.0) mmol/L Calcium (8.5-10.1) mg/dL Magnesium (1.5-2.5) mg/dL Total Bilirubin (0.2-1.0) mg/dL AST (15-37) U/L ALT (10-53) U/L Alkaline Phosphatase (45-117) U/L Ammonia (11-32) mcmol/L Total Creatine Kinase (26-192) U/L CK-MB (CK-2) (0.5-3.6) ng/mL CK-MB (CK-2) % (0.0-4.0) % Troponin I (0.02-0.05) ng/mL Total Protein (6.4-8.2) g/dL Albumin (3.4-5.0) g/dL TSH (0.358-3.740) uIU/mL Urine Color Yellow (Yellw/Straw) Urine Clarity Hazy H (Clear) Urine pH 6.0 (5.0-8.5) Ur Specific [place] 1.014 (1.002-1.035) Urine Protein Negative (Neg-Trace) mg/dL Urine Glucose (UA) Negative (Negative) mg/dL Urine Ketones 20 (Negative) mg/dL Urine Occult Blood Negative (Negative) Urine Nitrate Negative (Negative) Urine Bilirubin Negative (Negative) Urine Urobilinogen Less than 2 (Less than 2) mg/dL Ur Leukocyte Esterase Trace H (Negative) Urine RBC Less than 1 (0-3) /hpf Urine WBC 1 (0-5) /hpf Urine Mucus Few H (Occasional) /lpf Micro UA Comment Cath-culture not ind Ur Microscopic Review Not Reportable Urine Culture Comments Cath-cult not ind Urine Opiates Screen (Neg) Ur Barbiturates Screen (Neg) Ur Amphetamines Screen (Neg) U Benzodiazepines Scrn (Neg) Urine Cocaine Screen (Neg) U Cannabinoids Screen (Neg) Imaging Data Attestation: I personally reviewed and interpreted this imaging study as follows : Radiologist's impression: Chest X-Ray 12/13/17 07:45 CONCLUSION: No acute cardiopulmonary disease. Head CT 12/13/17 07:45 CONCLUSION: 1. Negative noncontrast head CT. . Discharge Plan Discharge Disposition Patient Disposition: 30 Still Patient Discharge Details Diagnosis: Altered mental status, Hypoglycemia Physicians Team ED Provider: Harsh Shelton Rxs /Orders / Referrals /Forms Prescriptions: No Action pravastatin 40 mg Tablet 40 mg PO DAILY RF: 0 lisinopril 30 mg Tablet 30 mg PO DAILY RF: 0 tizanidine 4 mg Capsule 4 mg PO DAILY RF: 0 quetiapine 25 mg Tablet 25 mg PO HS Qty: 30 RF: 0 famotidine 20 mg Tablet 20 mg PO BID Qty: 60 RF: 0 dicyclomine 20 mg Tablet 20 mg PO TID Qty: 30 RF: 0 cyanocobalamin (vitamin B-12) 1,000 mcg/mL Solution 1,000 mcg IM Q7D Qty: 30 RF: 0 vancomycin 500 mg Recon Soln 500 mg PO QID 14 Days RF: 0 multivitamin with folic acid [Thera] 400 mcg Tablet 1 tab PO DAILY Qty: 30 RF: 0 valproic acid 250 mg Capsule 500 mg PO TID Qty: 90 RF: 0 Discharge Interventions Interventions: Vital Signs Last Done: 12/13/17 09:31 Status ED Status: With Doctor
[2017-12-13] MEDS: Sod Chloride 0.9% Inj 1,000 ML IV.CONT SCH ×2 (08:00→18:23)
[2017-12-13 08:13] LABS: Baso # (Auto) 0.1 th/mm3 (0.0-0.2); Baso % (Auto) 0.5 % (0.0-2.0); Eos % (Auto) 0.2 % (0.0-4.0); Hemoglobin 11.5 gm/dL (11.6-15.3); Lymph % (Auto) 14.9 % (9.0-44.0); Mean Corpuscular HGB Conc 32.7 % (32.0-36.0); Mean Corpuscular Hemoglobin 31.9 pg (27.0-34.0); Mean Corpuscular Volume 97.3 fL (80.0-100.0); Mean Platelet Volume 10.1 fL (7.0-11.0); Mono # (Auto) 1.7 th/mm3 (0.0-0.9); Mono % (Auto) 8.6 % (0.0-8.0); Neut # (Auto) 15.2 th/mm3 (1.8-7.7); Neut % (Auto) 75.8 % (16.0-70.0); Platelet Count 260 th/mm3 (150-450); Red Blood Count 3.59 mil/mm3 (4.00-5.30); Red Cell Distribution Width 15.3 % (11.6-17.2)
[2017-12-13 08:19] LABS: Activated Partial Thrombo Time 25.2 sec (24.3-30.1); INR 1.1 Ratio; Prothrombin Time 10.9 sec (9.8-11.6)
--- NOTE | 2017-12-13 08:19 | CT ---
EXAM DATE: 12/13/2017 7:55 AM EDT AGE/SEX: 62 years / Female INDICATIONS: Altered Mental Status CLINICAL DATA: This is the patient's initial encounter. Patient reports that signs and symptoms have been present for 1 day and indicates a pain score of 0/10. MEDICAL/SURGICAL HISTORY: Hypertension. . Back surgery RADIATION DOSE: 56.35 CTDI (mGy) [place] [facility] [place]. . TECHNIQUE: CT of the head without contrast. Using automated exposure control and adjustment of the mA and/or kV according to patient size, radiation dose was kept as low as reasonably achievable to ob tain optimal diagnostic quality images. DICOM format image data is available electronically for revi ew and comparison. FINDINGS: Cerebrum: The ventricles are normal for age. No evidence of midline shift, mass lesion, hemorrhage or acute infarction. No extraaxial fluid collections are seen. Posterior Fossa: The cerebellum and brainstem are intact. The 4th ventricle is midline. The cerebe llopontine angle is unremarkable. Extracranial: The visualized portion of the orbits is intact. Skull: The calvaria is intact. No evidence of skull fracture. CONCLUSION: 1. Negative noncontrast head CT. . Electronically signed by: Evert Gomez MD 12/13/2017 8:18 AM EDT
[2017-12-13 08:29] LABS: Alanine Aminotransferase 15 U/L (10-53); Albumin 2.2 g/dL (3.4-5.0); Anion Gap 10 meq/L (5-15); Aspartate Aminotransferase 25 U/L (15-37); Blood Urea Nitrogen 10 mg/dL (7-18); Calcium 7.9 mg/dL (8.5-10.1); Carbon Dioxide 22.9 meq/L (21.0-32.0); Chloride 110 meq/L (98-107); Glomerular Filtration Rate Greater Than 89 mL/min (>89); Glucose,Random 63 mg/dL (74-106); Magnesium 1.4 mg/dL (1.5-2.5); Potassium 3.7 meq/L (3.5-5.1); Sodium 143 meq/L (136-145)
--- NOTE | 2017-12-13 08:32 | XR ---
EXAM DATE: 12/13/2017 7:45 AM EDT AGE/SEX: 62 years / Female INDICATIONS: Short of breath. CLINICAL DATA: This is the patient's initial encounter. Patient reports that signs and symptoms have been present for 1 day and indicates a pain score of 5/10. MEDICAL/SURGICAL HISTORY: Hypertension. None. [place] [facility] [place]. . FINDINGS: A single AP view of the chest demonstrates the lungs to be symmetrically aerated without evidence of mass, infiltrate or effusion. The cardiomediastinal contours are unremarkable. Osseous structures a re intact. CONCLUSION: No acute cardiopulmonary disease. Electronically signed by: Evert Gomez MD 12/13/2017 8:31 AM EDT
[2017-12-13 08:39] LABS: Alkaline Phosphatase 81 U/L (45-117); Creatine Kinase 424 U/L (26-192); Thyroid Stimulating Hormone 0.264 uIU/mL (0.358-3.740); Total Protein 5.5 g/dL (6.4-8.2)
[2017-12-13 08:52] LABS: CKMB Percent 0.2 % (0.0-4.0)
[2017-12-13 08:54] LABS: Amphetamine Screen,Urine Neg (Neg); Barbiturate Screen,Urine Neg (Neg); Bilirubin,Urine Negative (Negative); Cannabinoid Screen,Urine Neg (Neg); Clarity,Urine Hazy (Clear); Cocaine Screen,Urine Neg (Neg); Color,Urine Yellow (Yellw/Straw); Glucose,Urine (UA) Negative (Negative); Leukocyte Esterase,Urine Trace (Negative); Mucus,Urine Few /lpf (Occasional); Nitrite,Urine Negative (Negative); Specific Gravity,Urine 1.014 (1.002-1.035)
[2017-12-13 08:56] LABS: Opiate Screen,Urine Neg (Neg)
[2017-12-13] MEDS ORDERED: Dextrose 50% in Water 50 ML Vial IV.PUSH ONE (09:13)
[2017-12-13] MEDS: Dextrose 5%/NaCl 0.45% Inj 1,000 ML IV.CONT SCH ×2 (09:27→18:17)
[2017-12-13] MEDS ORDERED: Vancomycin Inj 1 GM/200 ML PIGGYBACK IV.SIG ONE (10:04)
[2017-12-13] MEDS ORDERED: Piperacil/Tazo 3.375 GM Premix 50 ML IV.SIG ONE (10:05)
[2017-12-13] MEDS ORDERED: Vancomycin Inj 1,000 MG in Sodium Chlor 0.9% Inj 250 ML IV.SIG ONE (10:15)
[2017-12-13] MEDS ORDERED: Sodium Chloride 0.45 % Inj 1,000 ML IV.CONT SCH (11:00)
[2017-12-13] MEDS ORDERED: Magnesium Sulfate Inj 4 GM in Sodium Chlor 0.9% Inj 92 ML IV.SIG ONE (11:15)
--- NOTE | 2017-12-13 11:41 | P.HPIM ---
History of Present Illness Primary Care Physician: Pilar Rivas History of Present Illness: The patient presented to [facility] with acute encephalopathy earlier this month and was discharged on 12/08/2017. During that admission the patient had multiple medical problems including pseudomembranous colitis, norovirus, and was discharged on p.o. vancomycin which the patient did not take. She also had a full workup for acute encephalopathy including a lumbar puncture which was negative, an EEG which was abnormal and the patient was started on anti-seizure medications. An MRI of the head was also done during that admission which did not show any significant abnormalities. The patient's acute encephalopathy subsequently resolved and the patient was discharged home. She now returns to our emergency department with acute encephalopathy that is been ongoing for the past couple of days. The patient was brought in by her . The patient is currently altered and knows her name and that she is surrounded by doctors. Otherwise she does not know her current location or the year. Apparently the patient was laying in bed all day for the past day and brought in because she was altered. No recent fevers or chills according to her . No further history at this time as the patient is a very poor historian. Review of systems was unable to be obtained given the patient's current status. Past medical history hypertension, chronic pain, dyslipidemia Past surgical history previous lumbar laminectomies. Family history significant for colon cancer her father Social history patient is a tobacco smoker half pack per day unclear exactly how long the patient has been smoking. The patient's past medical history was obtained from a previous H&P. Inpatient Certification: I certify that the inpatient services were ordered in accordance with Medicare regulations governing the order. This includes certification that hospital inpatient services are reasonable and necessary and in the case of services not specified as inpatient-only under 42 CFR 419.22(n), that they are appropriately provided as inpatient services in accordance to with the 2-midnight benchmark under 43 CFR 412.3(e) Review of Systems See HPI PMFSH - History History Provided By: Dance Teacher / EMT - Medical History Medical History: Medical History (Last Reviewed 12/13/17 @ 07:53 by Harsh Shelton MD) Chronic pain HTN (hypertension) Hyperlipidemia - Surgical History Surgical History: Surgical History (Last Reviewed 12/13/17 @ 07:53 by Harsh Shelton MD) Previous back surgery - Family History Family History: Family History (Last Reviewed 12/13/17 @ 07:53 by Harsh Shelton MD) Father Colon cancer - Tobacco History Second Hand Smoke Exposure: No Smoking Status: Unknown if ever smoked Tobacco Type: Cigarettes Packs Per Day: 0.5 - Alcohol History How Often Do You Have a Drink Containing Alcohol: Unable to Obtain - Substance Use History Substance History: Unable to Obtain - Travel History Recent Travel in the [place] Within the Last 8 Weeks: No Recent Travel Out of the Country Within the Last 8 Weeks: No - Immunization History Tetanus Immunization: Unable to Assess Medications and Allergies Active Medications: Active Medications Dicyclomine HCl (Bentyl) 20 mg PO TID BENJAMIN Famotidine (Pepcid) 20 mg PO BID BENJAMIN Sodium Chloride (Ns Inj) 1,000 mls @ 125 mls/hr IV.CONT .Q8H BENJAMIN Last Infusion: 12/13/17 11:11 Dose: Infused Dextrose/Sodium Chloride (D5w/1/2 Ns Inj) 1,000 mls @ 125 mls/hr IV.CONT .Q8H BENJAMIN Last Admin: 12/13/17 09:27 Dose: 125 mls/hr Vancomycin HCl 1,000 mg/ (Sodium Chloride) 250 mls @ 200 mls/hr IV.SIG ONCE ONE Stop: 12/13/17 11:29 Last Admin: 12/13/17 10:38 Dose: 200 mls/hr Magnesium Sulfate 4 gm/ Sodium (Chloride) 100 mls @ 25 mls/hr IV.SIG ONCE ONE Stop: 12/13/17 14:44 Lactulose (Lactulose Liq) 30 ml PO BID [facility] Multivitamins (Theragran) 1 tab PO DAILY BENJAMIN Quetiapine Fumarate (Seroquel) 25 mg PO HS BENJAMIN Valproic Acid (Depakene) 500 mg PO TID BENJAMIN Vancomycin HCl (Vancomycin Po) 500 mg PO QID [facility] Allergies Allergy/AdvReac Type Severity Reaction Status Date / Time No Known Allergies Allergy Verified 12/13/17 08:04 Home Medications Medication Instructions Recorded Confirmed Type lisinopril 30 mg PO DAILY 11/23/17 12/13/17 History pravastatin 40 mg PO DAILY 11/23/17 12/13/17 History tizanidine 4 mg PO DAILY 11/23/17 12/13/17 History Exam Vital signs: Vital Signs 12/13/17 07:23 12/13/17 07:58 12/13/17 07:59 Temperature 97.1 F L Pulse Rate 100 H 98 H Respiratory Rate 12 Blood Pressure 145/79 H Pulse Oximetry 100 100 12/13/17 09:31 Temperature Pulse Rate 90 Respiratory Rate 15 Blood Pressure 106/65 Pulse Oximetry 95 Intake & Output 12/12/17 12/13/17 12/13/17 18:59 06:59 18:59 Intake Total 200 / 200 Balance 200 / 200 Weight 63.503 kg Intake: IV 200 / 200 NS Inj 1,000 ML @ 125 mls/hr IV 150 / 150 .CONT .Q8H BENJAMIN Rx#:[id number] Zosyn 3.375 GM Premix 50 ML @ 50 / 50 100 mls/hr IV.SIG ONCE ONE Rx#: [id number] Narrative: General patient in no acute distress, she is altered. HEENT extraocular movements are intact, clear oropharyngeal mucosa, no JVD Cardiovascular S1-S2 audible, RRR, no murmurs rubs or gallops Respiratory clear to auscultation bilaterally Abdomen soft, nontender, nondistended, normal bowel sounds Extremities no edema 2+ distal pulses in bilateral upper and lower extremities Neuro patient is awake, alert, she does respond to my questions however she is an appropriate. She knows her name however is not oriented to place or time. She moves all 4 extremities and sensation is intact bilaterally. There are no other obvious neurological deficits. Results - Labs CBC & Chem 7: 12/13/17 07:45 12/13/17 07:45 Labs: Short CBC 12/13/17 Range/Units 07:45 WBC 20.0 H (4.0-11.0) th/mm3 Hgb 11.5 L (11.6-15.3) gm/dL Hct 35.0 (35.0-46.0) % Plt Count 260 (150-450) th/mm3 BMP 12/13/17 07:45 Sodium 143 Potassium 3.7 Chloride 110 H Carbon Dioxide 22.9 BUN 10 Creatinine 0.51 Calcium 7.9 L Cardiac Enzymes 12/13/17 Range/Units 07:45 Total Creatine Kinase 424 H (26-192) U/L CK-MB (CK-2) Less than 1.0 (0.5-3.6) ng/mL Troponin I Less than 0.02 L (0.02-0.05) ng/mL Liver Function 12/13/17 Range/Units 07:45 Total Bilirubin 0.3 (0.2-1.0) mg/dL AST 25 (15-37) U/L ALT 15 (10-53) U/L Alkaline Phosphatase 81 (45-117) U/L Albumin 2.2 L (3.4-5.0) g/dL Urine 12/13/17 Range/Units 08:35 Urine Color Yellow (Yellw/Straw) Urine Clarity Hazy H (Clear) Urine pH 6.0 (5.0-8.5) Ur Specific Ronan 1.014 (1.002-1.035) Urine Protein Negative (Neg-Trace) mg/dL Urine Glucose (UA) Negative (Negative) mg/dL - Imaging Impressions Chest X-Ray 12/13/17 07:45 CONCLUSION: No acute cardiopulmonary disease. Head CT 12/13/17 07:45 CONCLUSION: 1. Negative noncontrast head CT. . Caprini VTE Risk Assessment Caprini VTE Risk Assessment: No/Low Risk (score <= 1) Caprini Risk Assessment Model: Point Value = 1 Point Value = 2 Point Value = 3 Point Value = 5 Age 41-60 Minor surgery BMI > 25 kg/m2 Swollen legs Varicose veins or History of unexplained or recurrent spontaneous Oral contraceptives or hormone replacement Sepsis (< 1 month) Serious lung disease, including pneumonia (< 1 month) Abnormal pulmonary function Acute myocardial infarction Congestive heart failure (< 1 month) History of inflammatory bowel disease Medical patient at bed rest Age 61-74 Arthroscopic surgery Major open surgery (> 45 min) Laparoscopic surgery (> 45 min) Malignancy Confined to bed (> 72 hours) Immobilizing plaster cast Central venous access Age >= 75 History of VTE Family history of VTE Factor V Leiden Prothrombin [id number] Lupus anticoagulant Anticardiolipin antibodies Elevated serum homocysteine Heparin-induced thrombocytopenia Other congenital or acquired thrombophilia Stroke (< 1 month) Elective arthroplasty Hip, pelvis, or leg fracture Acute spinal cord injury (< 1 month) Prophylaxis Regimen: Total Risk Factor Score Risk Level Prophylaxis Regimen 0-1 Low Early ambulation 2 Moderate Order ONE of the following: *Sequential Compression Device (SCD) *Heparin 5000 units SQ BID 3-4 Higher Order ONE of the following medications: *Heparin 5000 units SQ TID *Enoxaparin/Lovenox 40 mg SQ daily (WT < 150 kg, CrCl > 30 mL/min) *Enoxaparin/Lovenox 30 mg SQ daily (WT < 150 kg, CrCl > 10-29 mL/min) *Enoxaparin/Lovenox 30 mg SQ BID (WT < 150 kg, CrCl > 30 mL/min) AND/OR *Sequential Compression Device (SCD) 5 or more Highest Order ONE of the following medications: *Heparin 5000 units SQ TID (Preferred with Epidurals) *Enoxaparin/Lovenox 40 mg SQ daily (WT < 150 kg, CrCl > 30 mL/min) *Enoxaparin/Lovenox 30 mg SQ daily (WT < 150 kg, CrCl > 10-29 mL/min) *Enoxaparin/Lovenox 30 mg SQ BID (WT < 150 kg, CrCl > 30 mL/min) AND *Sequential Compression Device (SCD) Assessment and Plan - Plan This patient is a 61-year-old female with a diagnosis of hypertension, dyslipidemia, chronic back pain status post multiple lumbar surgeries. The patient presented to [facility] with acute encephalopathy earlier this month and was discharged on 12/08/2017. During that admission the patient had multiple medical problems including pseudomembranous colitis, norovirus, and was discharged on p.o. vancomycin which the patient did not take. She also had a full workup for acute encephalopathy including a lumbar puncture which was negative, an EEG which was abnormal and the patient was started on anti-seizure medications. An MRI of the head was also done during that admission which did not show any significant abnormalities. The patient's acute encephalopathy subsequently resolved and the patient was discharged home. She now returns to our emergency department with acute encephalopathy that is been ongoing for the past couple of days. The patient was brought in by her . The patient is currently altered and knows her name and that she is surrounded by doctors. Otherwise she does not know her current location or the year. Apparently the patient was laying in bed all day for the past day and brought in because she was altered. No further history at this time as the patient is a very poor historian. 1. Acute encephalopathy unknown etiology possibly seizure. 2. Hypoglycemia Patient has elevated CPK level, ammonia is also slightly elevated. She will be given a dose of lactulose. I will repeat in a.m. ammonia level. CPK elevated around 455. No obvious seizure-like activity as per EMS report or from the patient's . Patient started on IV fluids, we will continue IV fluids. Neuro checks every 4 hours. Continue p.o. valproic acid, patient passed bedside swallow evaluation and it is okay to continue p.o. medications. Patient is currently alert and awake, however she is confused. Blood sugar on arrival was around 60. She was given a push of the 50 and is currently on D5 with half NS. We will monitor her blood sugars and adjust them as needed. 3. Pseudomembranous colitis 4. Leukocytosis Patient was discharged on p.o. vancomycin on 12/08/2017 however did not take the medication. She will be started on vancomycin p.o. The patient had one bowel movement in the emergency department. Currently she has an elevated WBC count with a left shift. This is possibly secondary to patient's colitis. She will be placed in isolation. I looked through the chart for the EGD biopsy results however I was unable to find them. Follow-up a.m. labs.
--- NOTE | 2017-12-13 13:56 | P.CONID ---
History of Present Illness Service: Infectious Disease Consult date: 12/13/17 Requesting Physician: Lion Craig Reason for Consult: Evaluate patient with mental status change Primary Care Provider: Pilar Rivas History of Present Illness: Patient seen and examined. Records reviewed. I also got a lot of history from the patient's . Previous admission was also reviewed in detail Patient is a 62-year-old female, according to the has had some problem with intermittent confusion. It started about a year ago, but she did well over the last year up until the first part of November this year. She was admitted to the hospital with change in mental status, and she had extensive workup at that time. She had an MRI which was not a good study although it did not show any acute hemorrhage or infarct. It had a lot of artifact. Neurology evaluated her at that time. LP was done and there was no evidence of infection. She also had some other workup for encephalopathy which included a negative paraneoplastic panel, negative RPR, negative LP. The HSV testing in the CSF was also negative. Patient had EEG and there is some that was suggestive of seizure. She was put on anticonvulsant agent when she was discharged. Patient also had GI workup during that time, and underwent upper and lower endoscopy. There was some evidence of duodenitis, as well as pseudomembranous colitis. The C. difficile toxin came back negative. ID saw the patient at that time, and recommended to treat a 14-day course of oral vancomycin for the pseudomembranous colitis. Patient also during that admission had an episode of what sounded like psychosis with hallucination, and psychiatry evaluated her as well. During the time of evaluation her mental status was clear, and she was not put on any medication. Patient was discharged December 08, and according to the she was doing fairly good mentally, as well as she was not having diarrhea. They went out to eat December 09 and December 10, and the patient even took some soup at home. said that they had a hard time feeling the prescription for oral vancomycin and it took them about 3 days before they got the prescription. One day prior to admission patient apparently was sleeping a lot, and she did not eat much although she did some oral fluid intake. She started having diarrhea on the day of admission. Due to the decreased level of consciousness, the brought the patient to the hospital for further evaluation and treatment. There is been no fever or chills. On presentation she is afebrile. Her WBC is up to 20,000. CT of the head is negative. Urinalysis is okay. Infectious disease consultation has been requested to evaluate the patient with acute encephalopathy. Review of Systems Constitutional: Reports lack of energy, Denies chills, Denies fever(s), Denies headache(s) Eyes: Denies discharge, Denies dry eyes Ears, Nose, Mouth, and Throat: Denies difficulty swallowing, Denies nasal discharge, Denies sore throat Cardiovascular: Denies chest pain, Denies shortness of breath Respiratory: Denies chest congestion, Denies cough, Denies shortness of breath Gastrointestinal: Reports loose stools, Denies abdominal pain, Denies nausea, Denies vomiting Neurologic: Reports confusion PMFSH - History History Provided By: Vulcanizing Press Operator / EMT - Medical History Medical History: Medical History (Last Reviewed 12/13/17 @ 13:49 by Beverly Solomon MD) Chronic pain HTN (hypertension) Hyperlipidemia - Surgical History Surgical History: Surgical History (Last Reviewed 12/13/17 @ 13:49 by Beverly Solomon MD) Previous back surgery - Family History Family History: Family History (Last Reviewed 12/13/17 @ 13:49 by Beverly Solomon MD) Father Colon cancer - Tobacco History Second Hand Smoke Exposure: No Smoking Status: Unknown if ever smoked Tobacco Type: Cigarettes Packs Per Day: 0.5 - Alcohol History How Often Do You Have a Drink Containing Alcohol: Unable to Obtain - Substance Use History Substance History: Unable to Obtain - Travel History Recent Travel in the [place] Within the Last 8 Weeks: No Recent Travel Out of the Country Within the Last 8 Weeks: No - Immunization History Tetanus Immunization: Unable to Assess Medications and Allergies Active Medications: Active Medications Atorvastatin Calcium (Lipitor) 20 mg PO HS [facility] Dicyclomine HCl (Bentyl) 20 mg PO TID [facility] Famotidine (Pepcid) 20 mg PO BID [facility] Sodium Chloride (Ns Inj) 1,000 mls @ 125 mls/hr IV.CONT .Q8H [facility] Last Infusion: 12/13/17 11:11 Dose: Infused Dextrose/Sodium Chloride (D5w/1/2 Ns Inj) 1,000 mls @ 125 mls/hr IV.CONT .Q8H [facility] Last Admin: 12/13/17 09:27 Dose: 125 mls/hr Magnesium Sulfate 4 gm/ Sodium (Chloride) 100 mls @ 25 mls/hr IV.SIG ONCE ONE Stop: 12/13/17 15:14 Last Admin: 12/13/17 11:59 Dose: 25 mls/hr Lactulose (Lactulose Liq) [address] [facility] Last Admin: 12/13/17 11:37 Dose: 30 ml Lorazepam (Ativan Inj) 2 mg IV.PUSH Q4H PRN PRN Reason: SEIZURES Multivitamins (Theragran) [address] [facility] Quetiapine Fumarate (Seroquel) [address] [facility] Valproic Acid (Depakene) [address] [facility] Vancomycin HCl (Vancomycin Po) [address] [facility] Allergies Allergy/AdvReac Type Severity Reaction Status Date / Time No Known Allergies Allergy Verified 12/13/17 08:04 Home Medications Medication Instructions Recorded Confirmed Type lisinopril 30 mg PO DAILY 11/23/17 12/13/17 History pravastatin 40 mg PO DAILY 11/23/17 12/13/17 History tizanidine 4 mg PO DAILY 11/23/17 12/13/17 History Exam Vital signs: Vital Signs 12/13/17 07:23 12/13/17 07:58 12/13/17 07:59 Temperature 97.1 F L Pulse Rate 100 H 98 H Respiratory Rate 12 Blood Pressure 145/79 H Pulse Oximetry 100 100 12/13/17 09:31 12/13/17 11:17 12/13/17 13:00 Temperature Pulse Rate 90 75 81 Respiratory Rate 15 13 Blood Pressure 106/65 109/61 Pulse Oximetry 95 99 12/13/17 13:11 12/13/17 13:17 Temperature Pulse Rate 82 Respiratory Rate 18 17 Blood Pressure 100/60 Pulse Oximetry 97 Intake & Output 12/12/17 12/13/17 12/13/17 18:59 06:59 18:59 Intake Total 450 / 450 Balance 450 / 450 Weight 63.503 kg Intake: IV 450 / 450 NS Inj 1,000 ML @ 125 mls/hr IV 150 / [address] [facility] Rx#:[id number] Zosyn 3.375 GM Premix 50 ML @ 50 / 50 100 mls/hr IV.SIG ONCE ONE Rx#: [id number] Vancomycin Inj 1,000 MG In NS 250 / 250 Inj 250 ML @ 200 mls/hr IV.SIG ONCE ONE Rx#:[id number] Narrative: Physical Examination GENERAL: Patient is a well-nourished, well-developed female, lethergic, but awakens and answered some of my questions, not in respiratory distress. SKIN: Cool and dry. No generalized rash, no ecchymoses and no evidence of embolic lesions. HEAD: Atraumatic. Normocephalic. No temporal wasting, or tenderness. EYES: [address] conjunctiva. No petechia or hemorrhage. Pupils equal, round and reactive to light. Extraocular movements full and intact. No scleral icterus. No injection or drainage. EARS, NOSE AND THROAT: Nose without bleeding or purulent nasal discharge. No sinus tenderness. Mucous membranes pink and moist. No oral lesions noted. No exudate. No oral thrush. NECK: Trachea midline. Supple and not tender, no meningeal signs. No nuchal rigidity CARDIOVASCULAR: Regular rate and rhythm. No murmurs, rubs or gallops heard RESPIRATORY: Clear to auscultation. Breath sounds equal bilaterally. No rales , wheezing or rhonchi ABDOMEN: Soft, nondistended, has diffuse tenderness, no guarding or rebound. Bowel sounds present and normoactive. No organomegaly. EXTREMITIES: No clubbing, cyanosis, no joint effusion, has good ROM. RLE looks bigger compared to the LLE but no calf tenderness. Well perfused and warm. NEUROLOGICAL: Awakens when stimulated and answered some of my questions. Had to do constant stimulation. She did not tell me her correct age, does not know the year or the President name. gave me the 's name. Cranial nerves grossly intact. Motor grossly within normal limits and symmetrical. No Babinski elicited, no ankle clonus PSYCHIATRIC: Some lethargy, but awakens easily LINE: No evidence of infection Results - Labs CBC & Chem 7: 12/13/17 07:45 12/13/17 07:45 Labs: Laboratory Results - last 24 hr 12/13/17 12/13/17 12/13/17 07:45 07:45 07:45 WBC 20.0 H RBC 3.59 L Hgb 11.5 L Hct 35.0 MCV 97.3 MCH 31.9 MCHC 32.7 RDW 15.3 Plt Count 260 MPV 10.1 Neut % (Auto) 75.8 H Lymph % (Auto) 14.9 [place] % (Auto) 8.6 H Eos % (Auto) 0.2 Baso % (Auto) 0.5 Neut # (Auto) 15.2 H Lymph # (Auto) 3.0 [place] # (Auto) 1.7 H Eos # (Auto) 0.0 Baso # (Auto) 0.1 WBC Differential . Differential Comment Auto diff final PT 10.9 INR 1.1 APTT 25.2 Sodium 143 Potassium 3.7 Chloride 110 H Carbon Dioxide 22.9 Anion Gap 10 BUN 10 Creatinine 0.51 Estimated GFR Greater than 89 POC Glucose Random Glucose 63 L Lactic Acid Calcium 7.9 L Magnesium 1.4 L Total Bilirubin 0.3 AST 25 ALT 15 Alkaline Phosphatase 81 Ammonia Total Creatine Kinase 424 H CK-MB (CK-2) Less than 1.0 CK-MB (CK-2) % 0.2 Troponin I Less than 0.02 L Total Protein 5.5 L Albumin 2.2 L TSH 0.264 L Urine Color Urine Clarity Urine pH Ur Specific [place] Urine Protein Urine Glucose (UA) Urine Ketones Urine Occult Blood Urine Nitrate Urine Bilirubin Urine Urobilinogen Ur Leukocyte Esterase Urine RBC Urine WBC Urine Mucus Micro UA Comment Ur Microscopic Review Urine Culture Comments Urine Opiates Screen Ur Barbiturates Screen Ur Amphetamines Screen U Benzodiazepines Scrn Urine Cocaine Screen U Cannabinoids Screen 12/13/17 12/13/17 12/13/17 07:55 07:55 08:35 WBC RBC Hgb Hct MCV MCH MCHC RDW Plt Count MPV Neut % (Auto) Lymph % (Auto) [place] % (Auto) Eos % (Auto) Baso % (Auto) Neut # (Auto) Lymph # (Auto) [place] # (Auto) Eos # (Auto) Baso # (Auto) WBC Differential Differential Comment PT INR APTT Sodium Potassium Chloride Carbon Dioxide Anion Gap BUN Creatinine Estimated GFR POC Glucose Random Glucose Lactic Acid 0.8 Calcium Magnesium Total Bilirubin AST ALT Alkaline Phosphatase Ammonia 35 H Total Creatine Kinase CK-MB (CK-2) CK-MB (CK-2) % Troponin I Total Protein Albumin TSH Urine Color Urine Clarity Urine pH Ur Specific [place] Urine Protein Urine Glucose (UA) Urine Ketones Urine Occult Blood Urine Nitrate Urine Bilirubin Urine Urobilinogen Ur Leukocyte Esterase Urine RBC Urine WBC Urine Mucus Micro UA Comment Ur Microscopic Review Urine Culture Comments Urine Opiates Screen Neg Ur Barbiturates Screen Neg Ur Amphetamines Screen Neg U Benzodiazepines Scrn Neg Urine Cocaine Screen Neg U Cannabinoids Screen Neg 12/13/17 12/13/17 08:35 09:26 WBC RBC Hgb Hct MCV MCH MCHC RDW Plt Count MPV Neut % (Auto) Lymph % (Auto) [place] % (Auto) Eos % (Auto) Baso % (Auto) Neut # (Auto) Lymph # (Auto) [place] # (Auto) Eos # (Auto) Baso # (Auto) WBC Differential Differential Comment PT INR APTT Sodium Potassium Chloride Carbon Dioxide Anion Gap BUN Creatinine Estimated GFR POC Glucose 62 L Random Glucose Lactic Acid Calcium Magnesium Total Bilirubin AST ALT Alkaline Phosphatase Ammonia Total Creatine Kinase CK-MB (CK-2) CK-MB (CK-2) % Troponin I Total Protein Albumin TSH Urine Color Yellow Urine Clarity Hazy H Urine pH 6.0 Ur Specific [place] 1.014 Urine Protein Negative Urine Glucose (UA) Negative Urine Ketones 20 Urine Occult Blood Negative Urine Nitrate Negative Urine Bilirubin Negative Urine Urobilinogen Less than 2 Ur Leukocyte Esterase Trace H Urine RBC Less than 1 Urine WBC 1 Urine Mucus Few H Micro UA Comment Cath-culture not ind Ur Microscopic Review Not Reportable Urine Culture Comments Cath-cult not ind Urine Opiates Screen Ur Barbiturates Screen Ur Amphetamines Screen U Benzodiazepines Scrn Urine Cocaine Screen U Cannabinoids Screen - Imaging Impressions Chest X-Ray 12/13/17 07:45 CONCLUSION: No acute cardiopulmonary disease. Head CT 12/13/17 07:45 CONCLUSION: 1. Negative noncontrast head CT. . Assessment and Plan - Plan Impression Encephalopathy, ?metabolic, ?due to possible sepsis Diarrhea has PMC on colonoscopy, has not been taking Rx Possible seizure on her last neuro work-up RLE>LLE, R/O DVT Recommendation Venous doppler RLE Stool for C diff PO Vancomycin Follow CBC Follow C/S Monitor progress I will follow along with you Thank you for this consultation Explained plan to the D/W Dr Craig (HEPAS)
--- NOTE | 2017-12-13 15:12 | US ---
EXAM DATE: 12/13/2017 12:00 AM EDT AGE/SEX: 62 years / Female INDICATIONS: Right leg swelling. CLINICAL DATA: This is the patient's initial encounter. Patient reports that signs and symptoms have been present for 1 day and indicates a pain score of 4/10. MEDICAL/SURGICAL HISTORY: Hypertension. Hyperlipidemia. Chronic pain. . Back Surgery. COMPARISON: No prior exams available for comparison. TECHNIQUE: Venous ultrasound of both lower extremities was performed from the inguinal ligament to t he proximal calf. Real-time, color Doppler and spectral tracing, compression and augmentation techni ques were used. FINDINGS: Normal compression of the deep venous system from the inguinal region to the proximal calf . No echogenic clot is seen. Normal response of the venous system to augmentation and respiration. CONCLUSION: 1. No sonographic evidence for right lower extremity DVT. Electronically signed by: Bernardino Springer MD 12/13/2017 3:11 PM EDT
[2017-12-13] MEDS: Famotidine 20 MG Tablet PO SCH (20:40)
[2017-12-13] MEDS: QUEtiapine 25 MG Tablet PO SCH (20:40)
--- NOTE | 2017-12-13 22:00 | ECG ---
Date Performed: 12/13/2017 Time Performed: 08:29:12 PTAGE: 62 years EKG: Sinus rhythm SEPTAL MYOCARDIAL INFARCTION ABNORMAL ECG PREVIOUS TRACING : 11/23/2017 02.03 Since the previous tracing, no significant change noted DOCTOR: Bayron Garsia Interpretating Date/Time 12/13/2017 21:58:32
[2017-12-14] MEDS: Dextrose 5%/NaCl 0.45% Inj 1,000 ML IV.CONT SCH ×3 (01:00→18:27)
[2017-12-14 07:35] LABS: Baso # (Auto) 0.1 th/mm3 (0.0-0.2); Baso % (Auto) 0.4 % (0.0-2.0); Eos % (Auto) 0.1 % (0.0-4.0); Hematocrit 31.1 % (35.0-46.0); Hemoglobin 10.6 gm/dL (11.6-15.3); Lymph % (Auto) 11.2 % (9.0-44.0); Mean Corpuscular Hemoglobin 32.5 pg (27.0-34.0); Mean Corpuscular Volume 95.6 fL (80.0-100.0); Mean Platelet Volume 9.5 fL (7.0-11.0); Mono # (Auto) 1.2 th/mm3 (0.0-0.9); Mono % (Auto) 6.8 % (0.0-8.0); Neut # (Auto) 14.7 th/mm3 (1.8-7.7); Neut % (Auto) 81.5 % (16.0-70.0); Platelet Count 309 th/mm3 (150-450); Red Blood Count 3.25 mil/mm3 (4.00-5.30); Red Cell Distribution Width 15.3 % (11.6-17.2); White Blood Count 18.1 th/mm3 (4.0-11.0)
[2017-12-14 08:09] LABS: Anion Gap 10 meq/L (5-15); Blood Urea Nitrogen 5 mg/dL (7-18); Calcium 7.3 mg/dL (8.5-10.1); Carbon Dioxide 22.5 meq/L (21.0-32.0); Chloride 113 meq/L (98-107); Glomerular Filtration Rate Greater Than 89 mL/min (>89); Glucose,Random 104 mg/dL (74-106); Magnesium 1.9 mg/dL (1.5-2.5); Sodium 145 meq/L (136-145)
[2017-12-14] MEDS: Famotidine 20 MG Tablet PO SCH ×2 (08:21→20:34)
[2017-12-14 08:23] LABS: Free T4 (Free Thyroxine) 0.81 ng/dL (0.76-1.46)
--- NOTE | 2017-12-14 08:48 | P.PN ---
Subjective Interval history: Follow up on patient with encephalopathy. Patient seen and examined. Patients is at the bedside and tells me she wants to go home. He states she is 95% back to her baseline. He believes she became dehydrated leading to her AMS. Patient appears lethargic. She is able to answer questions appropriately but quickly falls back asleep in between questions. She states correctly she is in the hospital. She states she is in [place]. She knows she is in [place] and the year is 2017. She cannot tell me which holiday is coming up. When I attempt to examine her, she pulls the covers back up over her chest and states "My will bathe me". Patient reports small volume diarrhea this morning. She denies any complaints. confirms they have Vancomycin at home now. Physical Exam Vital signs: Vital Signs 12/13/17 09:31 12/13/17 11:17 12/13/17 13:00 Temperature Pulse Rate 90 75 81 Respiratory Rate 15 13 Blood Pressure 106/65 109/61 Pulse Oximetry 95 99 12/13/17 13:11 12/13/17 13:17 12/13/17 16:00 Temperature 98.7 F Pulse Rate 82 79 Respiratory Rate 18 17 18 Blood Pressure 100/60 103/58 L Pulse Oximetry 97 93 L 12/13/17 20:00 12/14/17 00:00 12/14/17 04:00 Temperature 99.3 F 98.7 F 98.5 F Pulse Rate 84 101 H 91 H Respiratory Rate 20 18 16 Blood Pressure 118/70 123/69 128/65 Pulse Oximetry 97 98 98 Intake & Output 12/13/17 12/14/17 12/14/17 18:59 06:59 18:59 Intake Total 1550 / 1550 1490 / 1490 Balance 1550 / 1550 1490 / 1490 Weight 63.503 kg 62.7 kg Intake: IV 1550 / 1550 1490 / 1490 D5W/1/2 NS Inj 1,000 ML @ 125 1000 / 1000 1490 / 1490 mls/hr IV.CONT .Q8H [facility] Rx#: [id number] NS Inj 1,000 ML @ 125 mls/hr IV 150 / 150 .CONT .Q8H [facility] Rx#:[id number] Magnesium Sulfate Inj 4 GM In 100 / 100 NS Inj 92 ML @ 25 mls/hr IV.SIG ONCE ONE Rx#:[id number] Zosyn 3.375 GM Premix 50 ML @ 50 / 50 100 mls/hr IV.SIG ONCE ONE Rx#: [id number] Vancomycin Inj 1,000 MG In NS 250 / 250 Inj 250 ML @ 200 mls/hr IV.SIG ONCE ONE Rx#:[id number] Other: # Voids 3 3 # Bowel Movements 3 2 Narrative: GENERAL: WDWN female patient, INAD. Awake, lethargic but able to answer most questions appropriately. is at the bedside. SKIN: Warm and dry. HEENT: Atraumatic. Normocephalic. Pupils equal and round. No scleral icterus. No injection or drainage. No nasal bleeding or discharge. Mucous membranes pink and moist. NECK: Trachea midline. CARDIOVASCULAR: Regular rate and rhythm. No murmur auscultated. RESPIRATORY: No accessory muscle use. Clear to auscultation. Breath sounds equal bilaterally. GASTROINTESTINAL: Abdomen soft, non-tender, nondistended. +BS. MUSCULOSKELETAL: Extremities without clubbing or cyanosis. Right calf larger than left. NEUROLOGICAL: Awake, somewhat lethargic. Falling asleep in between questions. Easily arousable to voice. No obvious cranial nerve deficits. Motor grossly within normal limits. Able to move all extremities spontaneously. Normal speech. PSYCHIATRIC: Calm. Insight and judgement is questionable. - Urinary Catheter Management Straight Cath placed during this visit: no Reason for continuing: Not indwelling catheter Results - Labs CBC & Chem 7: 12/14/17 06:46 12/14/17 06:46 Laboratory Results - last 24 hr 12/13/17 12/13/17 12/13/17 07:45 08:35 08:35 WBC RBC Hgb Hct MCV MCH MCHC RDW Plt Count MPV Neut % (Auto) Lymph % (Auto) [place] % (Auto) Eos % (Auto) Baso % (Auto) Neut # (Auto) Lymph # (Auto) [place] # (Auto) Eos # (Auto) Baso # (Auto) WBC Differential Differential Comment POC Glucose Ammonia CK-MB (CK-2) Less than 1.0 CK-MB (CK-2) % 0.2 Free T4 Urine Color Yellow Urine Clarity Hazy H Urine pH 6.0 Ur Specific [place] 1.014 Urine Protein Negative Urine Glucose (UA) Negative Urine Ketones 20 Urine Occult Blood Negative Urine Nitrate Negative Urine Bilirubin Negative Urine Urobilinogen Less than 2 Ur Leukocyte Esterase Trace H Urine RBC Less than 1 Urine WBC 1 Urine Mucus Few H Micro UA Comment Cath-culture not ind Ur Microscopic Review Not Reportable Urine Culture Comments Cath-cult not ind Stl C.difficile DNA Amp St C. diff Tox Epid 027 Urine Opiates Screen Neg Ur Barbiturates Screen Neg Valproic Acid Ur Amphetamines Screen Neg U Benzodiazepines Scrn Neg Urine Cocaine Screen Neg U Cannabinoids Screen Neg 12/13/17 12/13/17 12/13/17 09:26 15:15 19:08 WBC RBC Hgb Hct MCV MCH MCHC RDW Plt Count MPV Neut % (Auto) Lymph % (Auto) [place] % (Auto) Eos % (Auto) Baso % (Auto) Neut # (Auto) Lymph # (Auto) [place] # (Auto) Eos # (Auto) Baso # (Auto) WBC Differential Differential Comment POC Glucose 62 L 121 H Ammonia CK-MB (CK-2) CK-MB (CK-2) % Free T4 Urine Color Urine Clarity Urine pH Ur Specific [place] Urine Protein Urine Glucose (UA) Urine Ketones Urine Occult Blood Urine Nitrate Urine Bilirubin Urine Urobilinogen Ur Leukocyte Esterase Urine RBC Urine WBC Urine Mucus Micro UA Comment Ur Microscopic Review Urine Culture Comments Stl C.difficile DNA Amp Positive H St C. diff Tox Epid 027 Negative Urine Opiates Screen Ur Barbiturates Screen Valproic Acid Ur Amphetamines Screen U Benzodiazepines Scrn Urine Cocaine Screen U Cannabinoids Screen 12/14/17 12/14/17 12/14/17 06:46 06:46 06:46 WBC 18.1 H RBC 3.25 L Hgb 10.6 L Hct 31.1 L MCV 95.6 MCH 32.5 MCHC 34.0 RDW 15.3 Plt Count 309 MPV 9.5 Neut % (Auto) 81.5 H Lymph % (Auto) 11.2 [place] % (Auto) 6.8 Eos % (Auto) 0.1 Baso % (Auto) 0.4 Neut # (Auto) 14.7 H Lymph # (Auto) 2.0 [place] # (Auto) 1.2 H Eos # (Auto) 0.0 Baso # (Auto) 0.1 WBC Differential . Differential Comment Auto diff final POC Glucose Ammonia 56 H CK-MB (CK-2) CK-MB (CK-2) % Free T4 0.81 Urine Color Urine Clarity Urine pH Ur Specific [place] Urine Protein Urine Glucose (UA) Urine Ketones Urine Occult Blood Urine Nitrate Urine Bilirubin Urine Urobilinogen Ur Leukocyte Esterase Urine RBC Urine WBC Urine Mucus Micro UA Comment Ur Microscopic Review Urine Culture Comments Stl C.difficile DNA Amp St C. diff Tox Epid 027 Urine Opiates Screen Ur Barbiturates Screen Valproic Acid 62 Ur Amphetamines Screen U Benzodiazepines Scrn Urine Cocaine Screen U Cannabinoids Screen - Imaging Impressions Venous Doppler Study 12/13/17 00:00 CONCLUSION: 1. No sonographic evidence for right lower extremity DVT. Assessment and Plan - Plan 61-year-old female with a diagnosis of hypertension, dyslipidemia, chronic back pain status post multiple lumbar surgeries admitted with AMS: Acute encephalopathy recent hospitalization with similar episode, EEG with possible seizure activity , started on Depakote Polypharmacy on Percocet, Seroquel and Lyrica at home CT head neg for acute intracranial process -hold all sedating medications -continuous cardiac monitoring -neuro checks -continue on IVF hydration -ST for swallow and cognitive evaluation -ID following, appreciate assistance -PT/OT eval/tx Leukocytosis, suspect secondary to pseudomembranous colitis UA neg CXR unremarkable patient is afebrile -white count 20 -> 18.1 -ID following, appreciate assistance -C diff pending -monitor white count Pseudomembranous colitis patient discharged with po Vancomycin but was not able to get filled -continue on po Vancomycin Hypokalemia K 2.7 Mag level 1.9 -give po and IV K repletion -repeat K later this afternoon and BMP in am -give Mag ox 400mg po x 1 dose Hyperammonemia, possibly due to Valproic acid ammonia level trending up 35 -> 56 -continue on Lactulose -monitor mentation Hypoglycemia, likely contributing to AMS BS 50 -improved with D5 -accucheks -hypoglycemic protocol -continue to monitor blood sugars Subclinical seizure recently started on Depakote -obtain Valproic acid level -hold Valproic acid for now. Will consult Neurology for recommendations, appreciate recommendations. -monitor for seizure activity RLE edema -doppler neg for DVT DVT prophylaxis -bilateral SCDs/CAITLIN wanda Discussed Condition With: patient, at bedside, nursing staff
[2017-12-14 08:59] LABS: Total Protein 4.4 g/dL (6.4-8.2)
[2017-12-14 09:22] LABS: Potassium 2.7 meq/L (3.5-5.1)
[2017-12-14] MEDS ORDERED: Dextrose 50% in Water 50 ML Vial IV.PUSH PRN (09:23)
[2017-12-14] MEDS ORDERED: Magnesium Oxide 400 MG Tablet PO ONE (09:45)
[2017-12-14] MEDS: Potassium Chlor 20 mEq Premix 20 MEQ/100 ML PIGGYBACK IV.SIG SCH ×2 (10:43→16:09)
--- NOTE | 2017-12-14 11:58 | P.PNID ---
Subjective Remarks: Patient is a 62-year-old female, according to the has had some problem with intermittent confusion. It started about a year ago, but she did well over the last year up until the first part of November this year. She was admitted to the hospital with change in mental status, and she had extensive workup at that time. She had an MRI which was not a good study although it did not show any acute hemorrhage or infarct. It had a lot of artifact. Neurology evaluated her at that time. LP was done and there was no evidence of infection. She also had some other workup for encephalopathy which included a negative paraneoplastic panel, negative RPR, negative LP. The HSV testing in the CSF was also negative. Patient had EEG and there is some that was suggestive of seizure. She was put on anticonvulsant agent when she was discharged. Patient also had GI workup during that time, and underwent upper and lower endoscopy. There was some evidence of duodenitis, as well as pseudomembranous colitis. The C. difficile toxin came back negative. ID saw the patient at that time, and recommended to treat a 14-day course of oral vancomycin for the pseudomembranous colitis. Patient also during that admission had an episode of what sounded like psychosis with hallucination, and psychiatry evaluated her as well. During the time of evaluation her mental status was clear, and she was not put on any medication. Patient was discharged December 08, and according to the she was doing fairly good mentally, as well as she was not having diarrhea. They went out to eat December 09 and December 10, and the patient even took some soup at home. said that they had a hard time feeling the prescription for oral vancomycin and it took them about 3 days before they got the prescription. One day prior to admission patient apparently was sleeping a lot, and she did not eat much although she did some oral fluid intake. She started having diarrhea on the day of admission. Due to the decreased level of consciousness, the brought the patient to the hospital for further evaluation and treatment. There is been no fever or chills. On presentation she is afebrile. Her WBC is up to 20,000. CT of the head is negative. Urinalysis is okay. Infectious disease consultation has been requested to evaluate the patient with acute encephalopathy. Notes reviewed Mental status better today - states close to baseline temps ok Small stool C diff toxin (+) WBC down to 18K Antibiotics: PO Vancomycin Lines: PIV Past Medical History: Chronic pain HTN (hypertension) Hyperlipidemia Back surgery Allergies/Adverse Reactions: Allergies No Known Allergies Allergy (Verified 12/13/17 08:04) Objective Vital Signs 12/13/17 13:00 12/13/17 13:11 12/13/17 13:17 Temperature Pulse Rate 81 82 Respiratory Rate 18 17 Blood Pressure 100/60 Pulse Oximetry 97 12/13/17 16:00 12/13/17 20:00 12/14/17 00:00 Temperature 98.7 F 99.3 F 98.7 F Pulse Rate 79 84 101 H Respiratory Rate 18 20 18 Blood Pressure 103/58 L 118/70 123/69 Pulse Oximetry 93 L 97 98 12/14/17 04:00 12/14/17 08:00 Temperature 98.5 F 98.4 F Pulse Rate 91 H 88 Respiratory Rate 16 16 Blood Pressure 128/65 129/72 Pulse Oximetry 98 95 Intake & Output 12/13/17 12/14/17 12/14/17 18:59 06:59 18:59 Intake Total 1550 / 1550 1490 / 1490 510 / 510 Balance 1550 / 1550 1490 / 1490 510 / 510 Weight 63.503 kg 62.7 kg Intake: IV 1550 / 1550 1490 / 1490 510 / 510 D5W/1/2 NS Inj 1,000 ML @ 125 1000 / 1000 1490 / 1490 510 / 510 mls/hr IV.CONT .[facility] Rx#: [id number] NS Inj 1,000 ML @ 125 mls/hr IV 150 / 150 .CONT .[facility] Rx#:[id number] Magnesium Sulfate Inj 4 GM In 100 / 100 NS Inj 92 ML @ 25 mls/hr IV.SIG ONCE ONE Rx#:[id number] Zosyn 3.375 GM Premix 50 ML @ 50 / 50 100 mls/hr IV.SIG ONCE ONE Rx#: [id number] Vancomycin Inj 1,000 MG In NS 250 / 250 Inj 250 ML @ 200 mls/hr IV.SIG ONCE ONE Rx#:[id number] Other: # Voids 3 3 # Bowel Movements 3 2 Lab - Hematology Results 12/13/17 12/14/17 07:45 06:46 WBC 20.0 H 18.1 H RBC 3.59 L 3.25 L Hgb 11.5 L 10.6 L Hct 35.0 31.1 L MCV 97.3 95.6 MCH 31.9 32.5 MCHC 32.7 34.0 RDW 15.3 15.3 Plt Count 260 309 MPV 10.1 9.5 Neut % (Auto) 75.8 H 81.5 H Lymph % (Auto) 14.9 11.2 [place] % (Auto) 8.6 H 6.8 Eos % (Auto) 0.2 0.1 Baso % (Auto) 0.5 0.4 Neut # (Auto) 15.2 H 14.7 H Lymph # (Auto) 3.0 2.0 [place] # (Auto) 1.7 H 1.2 H Eos # (Auto) 0.0 0.0 Baso # (Auto) 0.1 0.1 WBC Differential . . Differential Comment Auto diff final Auto diff final Lab - Chemistry Results 12/13/17 12/13/17 12/13/17 07:45 07:55 07:55 Sodium 143 Potassium 3.7 Chloride 110 H Carbon Dioxide 22.9 Anion Gap 10 BUN 10 Creatinine 0.51 Estimated GFR Greater than 89 POC Glucose Random Glucose 63 L Lactic Acid 0.8 Calcium 7.9 L Prot Corrected Calcium Magnesium 1.4 L Total Bilirubin 0.3 AST 25 ALT 15 Alkaline Phosphatase 81 Ammonia 35 H Total Creatine Kinase 424 H CK-MB (CK-2) Less than 1.0 CK-MB (CK-2) % 0.2 Troponin I Less than 0.02 L Total Protein 5.5 L Albumin 2.2 L TSH 0.264 L Free T4 Total T3 12/13/17 12/13/17 12/14/17 09:26 19:08 06:46 Sodium 145 Potassium 2.7 L* D Chloride 113 H Carbon Dioxide 22.5 Anion Gap 10 BUN 5 L Creatinine 0.51 Estimated GFR Greater than 89 POC Glucose 62 L 121 H Random Glucose 104 Lactic Acid Calcium 7.3 L* Prot Corrected Calcium 8.8 Magnesium 1.9 Total Bilirubin AST ALT Alkaline Phosphatase Ammonia Total Creatine Kinase CK-MB (CK-2) CK-MB (CK-2) % Troponin I Total Protein 4.4 L D Albumin TSH Free T4 Total T3 12/14/17 12/14/17 12/14/17 06:46 06:46 10:12 Sodium Potassium Chloride Carbon Dioxide Anion Gap BUN Creatinine Estimated GFR POC Glucose Random Glucose Lactic Acid Calcium Prot Corrected Calcium Magnesium Total Bilirubin AST ALT Alkaline Phosphatase Ammonia 56 H Total Creatine Kinase CK-MB (CK-2) CK-MB (CK-2) % Troponin I Total Protein Albumin TSH Free T4 0.81 Total T3 66 Imaging: ITS Impressions Venous Doppler Study 12/13/17 00:00 CONCLUSION: 1. No sonographic evidence for right lower extremity DVT. Chest X-Ray 12/13/17 07:45 CONCLUSION: No acute cardiopulmonary disease. Head CT 12/13/17 07:45 CONCLUSION: 1. Negative noncontrast head CT. . Physical Exam: GENERAL: More awake, knows year and where she it, tells me 's name is ISIAH Bauer SKIN: Cool and dry. No generalized rash, no ecchymoses and no evidence of embolic lesions. HEAD: Atraumatic. Normocephalic. No temporal wasting, or tenderness. EYES: [place] conjunctiva. No petechia or hemorrhage. Pupils equal, round and reactive to light. Extraocular movements full and intact. No scleral icterus. No injection or drainage. EARS, NOSE AND THROAT: Nose without bleeding or purulent nasal discharge. No sinus tenderness. Mucous membranes pink and moist. No oral lesions noted. No exudate. No oral thrush. NECK: Trachea midline. Supple and not tender, no meningeal signs. No nuchal rigidity CARDIOVASCULAR: Regular rate and rhythm. No murmurs, rubs or gallops heard RESPIRATORY: Clear to auscultation. Breath sounds equal bilaterally. No rales , wheezing or rhonchi ABDOMEN: Soft, nondistended, has diffuse tenderness, no guarding or rebound. Bowel sounds present and normoactive. No organomegaly. EXTREMITIES: No clubbing, cyanosis, no joint effusion, has good ROM. RLE looks bigger compared to the LLE but no calf tenderness. Well perfused and warm. NEUROLOGICAL: Awake and alert, CN intact, motor strength equal PSYCHIATRIC: Cooperative LINE: No evidence of infection Assessment and Plan - Plan Impression Encephalopathy, ?metabolic, ?due to possible sepsis C difficile colitis, now C diff toxi (+) - had PMC on colonoscopy during last admission Possible seizure on her last neuro work-up RLE>LLE, no evidence of DVT Recommendation Continue PO Vancomycin - plan 14 days of Abx Follow CBC Follow C/S Monitor progress Spoke with
[2017-12-14 14:49] LABS: Potassium 3.1 meq/L (3.5-5.1)
[2017-12-14 15:19] LABS: Creatine Kinase 204 U/L (26-192)
--- NOTE | 2017-12-14 15:25 | MB ---
cc: Hadley Nair MD, PhD DATE: 12/14/2017 NEUROLOGY CONSULTATION REASON FOR CONSULTATION: Encephalopathy. HISTORY OF PRESENT ILLNESS: Ms. Woorduff is a 62-year-old woman recently admitted with mental status change earlier this month. At that time, she had an MRI of the brain, which was normal. EEG revealed what appeared to be subclinical seizure activity. She was placed on Depakote with improvement in her mental status; was discharged home, but then on Thursday, had decreased mental status where she is unarousable; has been confused since then. Her does relate that she takes Depakote. She has not missed any doses. During her last hospitalization, she had a lumbar puncture, which was within normal limits with 2 WBCs, 5 RBCs, glucose 54, protein 40.5. Herpes PCR was negative. PAST MEDICAL HISTORY: Remarkable for history of pseudomembranous colitis, norovirus, recent encephalopathy, possible subclinical seizure, hypertension and chronic pain, dyslipidemia, lumbar laminectomy. CURRENT MEDICATIONS: 1. Atorvastatin 20 mg daily. 2. Bentyl. 3. Pepcid 20 mg b.i.d. 4. Glucagon. 5. Lactulose 30 mL b.i.d. 6. Ativan p.r.n. 7. Seroquel 25 mg daily. 8. Depakene 500 mg t.i.d. 9. Vancomycin. 10. She normally takes Lyrica at home 200 mg t.i.d. for neuropathic pain. NEUROLOGIC EXAMINATION: VITAL SIGNS: Blood pressure 118/68, pulse is 84, respirations 16, temperature 98 degrees. HIGHER CORTICAL FUNCTION: She is alert, oriented x3; follows commands, has normal recall. Speech is fluent. Cranial nerves intact. Motor exam normal strength and tone of all groups. There is no drift. Cerebellar testing is normal. Reflexes are symmetric. LABORATORY DATA: White count 18,000, hemoglobin 10.6, hematocrit 31.1%, platelets 309,000. Sodium is 145, potassium 2.7, chloride 113, CO2 22.5, BUN 5, creatinine 0.51, GFR is greater than 89, glucose 121. Ammonia 56, which is elevated, alkaline phosphatase 81, AST 25, ALT is 15. Free T4 is 0.81 which is normal. TSH low at 0.264. Urinalysis is pending. Sedimentation rate is 24. IMPRESSION: Mental status change, possible encephalopathy, elevated ammonia; may be related to Depakote. Possible subclinical seizure. RECOMMENDATIONS: Recommend an MRI of the brain for further evaluation as well as a repeat EEG to rule out subclinical seizure disorder. Continue Depakote. Continue Lyrica for neuropathic pain. We will check a Depakote level as well. Hadley Nair MD, PhD RODNEY/mahamed , 02:40 PM , 02:48 PM
[2017-12-14 15:39] LABS: CKMB Percent 0.5 % (0.0-4.0)
[2017-12-14] MEDS: QUEtiapine 25 MG Tablet PO SCH (20:34)
--- NOTE | 2017-12-14 20:47 | MG ---
cc: Joce Crews MD INDICATIONS: Change in mental status, chronic back pain. Lipitor, Seroquel, Depakote. Diffuse 7 Hz rhythm 60 microvolts, including overall synchronous and symmetric. Muscle artifact is noted. Photic stimulation is performed without significant posterior driving. No epileptiform or seizure activity is noted. No hemisphere asymmetries are seen. IMPRESSION: Mild diffuse theta slowing. Otherwise, a normal electroencephalogram. Joce Crews MD DJM/sv/ll , 08:01 PM , 08:06 PM
[2017-12-15] MEDS: Dextrose 5%/NaCl 0.45% Inj 1,000 ML IV.CONT SCH (04:02)
[2017-12-15 07:37] LABS: Anion Gap 10 meq/L (5-15); Blood Urea Nitrogen 5 mg/dL (7-18); Calcium 7.2 mg/dL (8.5-10.1); Carbon Dioxide 21.7 meq/L (21.0-32.0); Chloride 114 meq/L (98-107); Glomerular Filtration Rate Greater Than 89 mL/min (>89); Glucose,Random 107 mg/dL (74-106); Potassium 3.1 meq/L (3.5-5.1); Sodium 146 meq/L (136-145)
[2017-12-15 07:59] LABS: Total Protein 4.1 g/dL (6.4-8.2)
[2017-12-15] MEDS ORDERED: Gadobutrol PF 2 MMOL/2 ML Vial (for RAD) IV.SIG ONE (08:45)
--- NOTE | 2017-12-15 08:47 | MR ---
EXAM DATE: 12/15/2017 8:03 AM EDT AGE/SEX: 62 years / Female INDICATIONS: Confusion. Dementia. CLINICAL DATA: This is the patient's initial encounter. Patient reports that signs and symptoms have been present for 2 days and indicates a pain score of 0/10. MEDICAL/SURGICAL HISTORY: Hypertension. Fusion, lumbar. COMPARISON: [facility] [place], MR HEAD W & W/O CONTRAST, 11/24/2017. . TECHNIQUE: Multiplanar, multisequence examination of the brain was performed without and with 6 ml Ga davist (gadobutrol) contrast as a single exam dose. FINDINGS: Cerebrum: The ventricles are normal for age. No evidence of midline shift, mass lesion, hemorrhage or acute infarction. No extraaxial fluid collections are seen. The pituitary gland and suprasellar cistern are normal in configuration. White Matter: No significant signal abnormalities are seen in the white matter. Posterior Fossa: The cerebellum and brainstem are intact. The 4th ventricle is midline. The cerebel lopontine angle is unremarkable. The cerebellar tonsils are normal in position. Diffusion Imaging: No focal areas of restricted diffusion are seen. No evidence of acute infarction . Extracranial: The visualized portions of the orbits and paranasal sinuses are unremarkable. Post Contrast: No abnormal areas of parenchymal or dural enhancement. No evidence of blood-brain ba rrier breakdown. CONCLUSION: Negative MR Brain with and without contrast. Electronically signed by: Pato Cruz MD 12/15/2017 8:46 AM EDT
--- NOTE | 2017-12-15 10:56 | P.PNID ---
Subjective Remarks: Patient is a 62-year-old female, according to the has had some problem with intermittent confusion. It started about a year ago, but she did well over the last year up until the first part of November this year. She was admitted to the hospital with change in mental status, and she had extensive workup at that time. She had an MRI which was not a good study although it did not show any acute hemorrhage or infarct. It had a lot of artifact. Neurology evaluated her at that time. LP was done and there was no evidence of infection. She also had some other workup for encephalopathy which included a negative paraneoplastic panel, negative RPR, negative LP. The HSV testing in the CSF was also negative. Patient had EEG and there is some that was suggestive of seizure. She was put on anticonvulsant agent when she was discharged. Patient also had GI workup during that time, and underwent upper and lower endoscopy. There was some evidence of duodenitis, as well as pseudomembranous colitis. The C. difficile toxin came back negative. ID saw the patient at that time, and recommended to treat a 14-day course of oral vancomycin for the pseudomembranous colitis. Patient also during that admission had an episode of what sounded like psychosis with hallucination, and psychiatry evaluated her as well. During the time of evaluation her mental status was clear, and she was not put on any medication. Patient was discharged December 08, and according to the she was doing fairly good mentally, as well as she was not having diarrhea. They went out to eat December 09 and December 10, and the patient even took some soup at home. said that they had a hard time feeling the prescription for oral vancomycin and it took them about 3 days before they got the prescription. One day prior to admission patient apparently was sleeping a lot, and she did not eat much although she did some oral fluid intake. She started having diarrhea on the day of admission. Due to the decreased level of consciousness, the brought the patient to the hospital for further evaluation and treatment. There is been no fever or chills. On presentation she is afebrile. Her WBC is up to 20,000. CT of the head is negative. Urinalysis is okay. Infectious disease consultation has been requested to evaluate the patient with acute encephalopathy. Notes reviewed Temps ok Patient awake and alert - mental status back to baseline States stool getting more formed Mild lower abdominal pain Eating ok No N/V MRI head negative Antibiotics: PO Vancomycin Lines: PIV Past Medical History: Chronic pain HTN (hypertension) Hyperlipidemia Back surgery Allergies/Adverse Reactions: Allergies No Known Allergies Allergy (Verified 12/13/17 08:04) Objective Vital Signs 12/14/17 12:00 12/14/17 16:00 12/14/17 20:00 Temperature 98.0 F 98.5 F 98.2 F Pulse Rate 95 H 91 H 86 Respiratory Rate 16 17 17 Blood Pressure 118/68 131/73 116/70 Pulse Oximetry 94 L 95 96 12/15/17 00:00 12/15/17 04:00 Temperature 98.0 F 98.2 F Pulse Rate 88 95 H Respiratory Rate 16 15 Blood Pressure 111/68 106/62 Pulse Oximetry 97 93 L Intake & Output 12/14/17 12/15/17 12/15/17 18:59 06:59 18:59 Intake Total 2089 / 2089 740 / 740 Output Total 2 / 2 Balance 2089 / 2089 738 / 738 Weight 61.2 kg Intake: IV 1610 / 1610 500 / 500 D5W/1/2 NS Inj 1,000 ML @ 125 1510 / 1510 500 / 500 mls/hr IV.CONT .Q8H [facility] Rx#: [id number] KCl 20 mEq Premix Inj 20 meq In 100 / 100 100 ml @ 50 mls/hr IV.SIG Q2H [facility] Rx#:[id number] Oral 480 / 480 240 / 240 Output: Urine 2 / 2 Other: # Voids 5 # Bowel Movements 5 2 Lab - Hematology Results 12/14/17 06:46 WBC 18.1 H RBC 3.25 L Hgb 10.6 L Hct 31.1 L MCV 95.6 MCH 32.5 MCHC 34.0 RDW 15.3 Plt Count 309 MPV 9.5 Neut % (Auto) 81.5 H Lymph % (Auto) 11.2 [place] % (Auto) 6.8 Eos % (Auto) 0.1 Baso % (Auto) 0.4 Neut # (Auto) 14.7 H Lymph # (Auto) 2.0 [place] # (Auto) 1.2 H Eos # (Auto) 0.0 Baso # (Auto) 0.1 WBC Differential . Differential Comment Auto diff final Lab - Chemistry Results 12/13/17 12/14/17 12/14/17 19:08 06:46 06:46 Sodium 145 Potassium 2.7 L* D Chloride 113 H Carbon Dioxide 22.5 Anion Gap 10 BUN 5 L Creatinine 0.51 Estimated GFR Greater than 89 POC Glucose 121 H Random Glucose 104 Calcium 7.3 L* Prot Corrected Calcium 8.8 Magnesium 1.9 Ammonia Total Creatine Kinase 204 H CK-MB (CK-2) Less than 1.0 CK-MB (CK-2) % 0.5 Total Protein 4.4 L D Free T4 Total T3 12/14/17 12/14/17 12/14/17 06:46 06:46 10:12 Sodium Potassium Chloride Carbon Dioxide Anion Gap BUN Creatinine Estimated GFR POC Glucose Random Glucose Calcium Prot Corrected Calcium Magnesium Ammonia 56 H Total Creatine Kinase CK-MB (CK-2) CK-MB (CK-2) % Total Protein Free T4 0.81 Total T3 66 12/14/17 12/15/17 14:03 06:20 Sodium 146 H Potassium 3.1 L 3.1 L Chloride 114 H Carbon Dioxide 21.7 Anion Gap 10 BUN 5 L Creatinine 0.58 Estimated GFR Greater than 89 POC Glucose Random Glucose 107 H Calcium 7.2 L* Prot Corrected Calcium 8.9 Magnesium Ammonia Total Creatine Kinase CK-MB (CK-2) CK-MB (CK-2) % Total Protein 4.1 L Free T4 Total T3 Imaging: ITS Impressions Venous Doppler Study 12/13/17 00:00 CONCLUSION: 1. No sonographic evidence for right lower extremity DVT. Chest X-Ray 12/13/17 07:45 CONCLUSION: No acute cardiopulmonary disease. Head CT 12/13/17 07:45 CONCLUSION: 1. Negative noncontrast head CT. . Head MRI 12/15/17 07:01 CONCLUSION: Negative MR Brain with and without contrast. Physical Exam: GENERAL: Awake and alert, oriented x 3, NAD SKIN: Cool and dry. No generalized rash. HEAD: Atraumatic. Normocephalic. No temporal wasting, or tenderness. EYES: [place] conjunctiva. No petechia or hemorrhage. No scleral icterus. No injection or drainage. EARS, NOSE AND THROAT: Nose without bleeding or purulent nasal discharge. Mucous membranes pink and moist. No oral lesions noted. NECK: Trachea midline. Supple and not tender, no meningeal signs. No nuchal rigidity CARDIOVASCULAR: Regular rate and rhythm. No murmurs, rubs or gallops heard RESPIRATORY: Clear to auscultation. Breath sounds equal bilaterally. No rales , wheezing or rhonchi ABDOMEN: Soft, nondistended, has mild tenderness lower abdomen, no guarding or rebound. Bowel sounds present and normoactive. No organomegaly. EXTREMITIES: No clubbing, cyanosis, no joint effusion, has good ROM. NEUROLOGICAL: Grossly non-focal PSYCHIATRIC: Cooperative LINE: No evidence of infection Assessment and Plan - Plan Impression Encephalopathy, ?metabolic, ?due to possible sepsis C difficile colitis, now C diff toxin (+) - had PMC on colonoscopy during last admission - clinically better Possible seizure on her last neuro work-up Recommendation Continue PO Vancomycin - plan 14 days of Abx Clinically doing well D/C plans noted D/W RN D/W Dr Chaparro ([facility])
[2017-12-15] MEDS: Famotidine 20 MG Tablet PO SCH (12:21)
--- NOTE | 2017-12-15 12:29 | P.DS ---
Date of admission: 12/13/17 10:58 Primary care physician: Pilar Rivas Brief History from admission: The patient presented to [facility] [place] with acute encephalopathy earlier this month and was discharged on 12/08/2017. During that admission the patient had multiple medical problems including pseudomembranous colitis, norovirus, and was discharged on p.o. vancomycin which the patient did not take. She also had a full workup for acute encephalopathy including a lumbar puncture which was negative, an EEG which was abnormal and the patient was started on anti-seizure medications. An MRI of the head was also done during that admission which did not show any significant abnormalities. The patient's acute encephalopathy subsequently resolved and the patient was discharged home. She now returns to our emergency department with acute encephalopathy that is been ongoing for the past couple of days. The patient was brought in by her . The patient is currently altered and knows her name and that she is surrounded by doctors. Otherwise she does not know her current location or the year. Apparently the patient was laying in bed all day for the past day and brought in because she was altered. No recent fevers or chills according to her . No further history at this time as the patient is a very poor historian. Review of systems was unable to be obtained given the patient's current status. Past medical history hypertension, chronic pain, dyslipidemia Past surgical history previous lumbar laminectomies. Family history significant for colon cancer her father Social history patient is a tobacco smoker half pack per day unclear exactly how long the patient has been smoking. The patient's past medical history was obtained from a previous H&P. DS: Medications - Discharge Medications Prescriptions: Lactobacillus acidophilus 500 mmu cells PO TID #90 cap potassium chloride 10 meq PO BID #10 cap DS: Summary Hospital Course: Mrs. Woodruff is a 62-year-old female. She came in secondary to altered mental status/encephalopathy. Etiology is likely related to electrolyte disturbance and dehydration. This patient has pseudomembranous colitis diarrhea and is being treated as an outpatient with vancomycin p.o. MRI was obtained here which shows no abnormalities of the brain. Treatments are continued. Diarrhea has improved while here. Potassium levels are improved. Sodium levels have trended back towards normal. Patient's mental status has returned to baseline. At this point she is medically stable and cleared for discharge to home with resumption of p.o. vancomycin, addition of probiotics, and potassium supplementation for 5 days more. - Time Spent with Patient Total time spent providing and/or coordinating discharge services: Less than 30 minutes - Quality: VTE Deep Vein Thrombosis/Pulmonary Embolism Present on Admission: No Exam Vital signs: Vital Signs 12/14/17 16:00 12/14/17 20:00 12/15/17 00:00 Temperature 98.5 F 98.2 F 98.0 F Pulse Rate 91 H 86 88 Respiratory Rate 17 17 16 Blood Pressure 131/73 116/70 111/68 Pulse Oximetry 95 96 97 12/15/17 04:00 Temperature 98.2 F Pulse Rate 95 H Respiratory Rate 15 Blood Pressure 106/62 Pulse Oximetry 93 L Intake & Output 12/14/17 12/15/17 12/15/17 18:59 06:59 18:59 Intake Total 2089 / 2089 740 / 740 Output Total 2 / 2 Balance 2089 / 2089 738 / 738 Weight 61.2 kg Intake: IV 1610 / 1610 500 / 500 D5W/1/2 NS Inj 1,000 ML @ 125 1510 / 1510 500 / 500 mls/hr IV.CONT .Q8H BENJAMIN Rx#: [id number] KCl 20 mEq Premix Inj 20 meq In 100 / 100 100 ml @ 50 mls/hr IV.SIG Q2H BENJAMIN Rx#:[id number] Oral 480 / 480 240 / 240 Output: Urine 2 / 2 Other: # Voids 5 # Bowel Movements 5 2 Results Procedures completed during hospitalization: None Labs on day of discharge: Labs from last 24 hours 12/15/17 12/14/17 12/14/17 06:20 14:03 14:03 Sodium 146 H Potassium 3.1 L 3.1 L Chloride 114 H Carbon Dioxide 21.7 Anion Gap 10 BUN 5 L Creatinine 0.58 Estimated GFR Greater than 89 Random Glucose 107 H Calcium 7.2 L* Prot Corrected Calcium 8.9 Total Creatine Kinase CK-MB (CK-2) CK-MB (CK-2) % Total Protein 4.1 L Valproic Acid Cancelled 60 12/14/17 06:46 Sodium Potassium Chloride Carbon Dioxide Anion Gap BUN Creatinine Estimated GFR Random Glucose Calcium Prot Corrected Calcium Total Creatine Kinase 204 H CK-MB (CK-2) Less than 1.0 CK-MB (CK-2) % 0.5 Total Protein Valproic Acid - Impressions ITS Impressions Venous Doppler Study 12/13/17 00:00 CONCLUSION: 1. No sonographic evidence for right lower extremity DVT. Chest X-Ray 12/13/17 07:45 CONCLUSION: No acute cardiopulmonary disease. Head CT 12/13/17 07:45 CONCLUSION: 1. Negative noncontrast head CT. . Head MRI 12/15/17 07:01 CONCLUSION: Negative MR Brain with and without contrast. Discharge Plan - Discharge Disposition Patient Disposition: 01 Discharge Home - Discharge Condition Condition: Stable - Discharge Order Discharge Orders: Discharge Order (Routine); Ordered 12/15/17 Ordered By: Lucas Chaparro - Discharge Details Anticipated Discharge Date: 12/15/17 - Physicians Team Attending Provider: Lucas Chaparro Other Providers: Beverly Solomon MD ; Hadley Nair MD, PhD
[2017-12-15 12:41] VITALS: BP 118/66; PULSE 96; RESP 17; TEMP 98.3; O2SAT 96
== END 2017-12-15 14:12 | disposition home or self-care (01) ==
LOC: NEPC 07:14 → NEDA 10:58 → INTOOBSV 10:58 → NEDA 13:30 → N04 13:50
PROVIDERS: ADMIT Hospitalist; ATTEND Hospitalist

== ENCOUNTER 2017-12-17 07:52 | Inpatient (IN) ==
[2017-12-17] MEDS ORDERED: Succinylcholine Inj 200 MG/10 ML Vial ONE (07:54)
[2017-12-17] MEDS ORDERED: Etomidate Inj 40 MG/20 ML Vial IV.PUSH ONE (07:54)
[2017-12-17] MEDS ORDERED: Etomidate Inj 20 MG/10 ML Ampul IV.PUSH ONE (08:06)
[2017-12-17] MEDS ORDERED: Succinylcholine Inj 100 MG/5 ML Syringe IV.PUSH ONE (08:06)
[2017-12-17] MEDS: Sod Chloride 0.9% Inj 1,000 ML IV.CONT SCH ×2 (08:14→17:58)
[2017-12-17] MEDS: fentaNYL 10 mcg/mL Premix Drip 2,500 MCG/250 ML BAG IV.SIG PRN ×2 (08:14→22:39)
[2017-12-17] MEDS ORDERED: Midazolam 50 MG/50 ML Inj 50 MG/50 ML BAG IV.CONT ONE (08:23)
[2017-12-17] MEDS: Midazolam 50 MG/50 ML Inj 50 MG/50 ML BAG IV.CONT PRN ×3 (08:28→22:38)
--- NOTE | 2017-12-17 08:29 | ED ---
HPI General Chief Complaint: Altered Mental Status Stated Complaint: Medical Time Seen by Provider: 12/17/17 08:01 Source: family and EMS Mode of arrival: EMS Limitations: altered mental status History of Present Illness HPI narrative: 62-year-old female was brought in by EMS for altered mental status. Patient's states the patient started having trouble breathing since last night. Patient was found by her unresponsive this morning. Patient was having trouble breathing with agonal breathing and stomach breathing this morning. EMS was called. Blood sugar was found to be low. Bag- valve-mask assisted ventilation given. Patient was given Narcan 2 mg IV with minimal improvement in mental status. Patient was given D10 IV. Patient was transported to ED for evaluation. Upon arrival patient unresponsive with agonal breathing. Patient did not respond to painful stimuli. Patient's states that patient has not been taking her pain medication for her chronic back pain. Patient was treated recently for pseudomembranous colitis. Patient was admitted to [facility] and discharge December 08 with diagnosis of pseudomembranous colitis, norovirus gastroenteritis, put on vancomycin. Patient also was diagnosed with acute encephalopathy and lumbar puncture was done which was negative for infectious process. Patient is acute encephalopathy subsequently resolved and patient was discharged home. Patient was admitted to [facility] again on December 13 and discharged 2 days ago for encephalopathy. Patient mental status was back to normal upon discharge. Patient was advised to take vancomycin, ProBiotic and potassium supplement. Patient's states the patient has been doing well until last night when she started having trouble breathing. MD complaint: Reports altered mental status and decreased responsiveness Onset (ago): hour(s) Timing confirmed by: spouse Severity: severe Consistency of symptoms: getting worse Context: Reports history of similar presentation Treatments prior to arrival: Reports glucose, IV fluid and oxygen Related Data Home Medications Medication Instructions Recorded Confirmed lisinopril 30 mg PO DAILY 11/23/17 12/13/17 pravastatin 40 mg PO DAILY 11/23/17 12/13/17 tizanidine 4 mg PO DAILY 11/23/17 12/13/17 Previous Rx's Medication Instructions Recorded cyanocobalamin (vitamin B-12) 1,000 mcg IM Q7D #30 ml 12/08/17 dicyclomine 20 mg PO TID #30 tab 12/08/17 famotidine 20 mg PO BID #60 tab 12/08/17 multivitamin with folic acid 1 tab PO DAILY #30 tab 12/08/17 [Thera] quetiapine 25 mg PO HS #30 tab 12/08/17 valproic acid 500 mg PO TID #90 cap 12/08/17 vancomycin 500 mg PO QID 14 Days each 12/08/17 Lactobacillus acidophilus 500 mmu cells PO TID #90 cap 12/15/17 potassium chloride 10 meq PO BID #10 cap 12/15/17 Allergies Allergy/AdvReac Type Severity Reaction Status Date / Time No Known Allergies Allergy Verified 12/13/17 08:04 Review of Systems ROS Unobtainable ROS Unobtainable: unobtainable due to mental condition PMFSH History History Provided By: Family Member and Gas Systems Worker / EMT Social History Social History Substance History: No History of Abuse Second Hand Smoke Exposure: Yes Smoking Status: Unknown if ever smoked Tobacco Type: Cigarettes Packs Per Day: 0.5 Cigarettes Per Day: 10.0 How Often Do You Have a Drink Containing Alcohol: Unable to Obtain Recent Travel in [facility] within the Last 8 Weeks: No Recent Out of Country Travel within the Last 8 Weeks: No Exam Narrative Exam Narrative: GENERAL: Well-nourished, well-developed patient. SKIN: Focused skin assessment warm/dry. HEAD: Normocephalic. EYES: No scleral icterus. No injection or drainage. Pupils 2 mm equal reactive. NECK: Supple, trachea midline. No JVD or lymphadenopathy. CARDIOVASCULAR: Regular rate and rhythm without murmurs, gallops, or rubs. RESPIRATORY: Breath sounds equal bilaterally. No accessory muscle use. GASTROINTESTINAL: Abdomen soft, non-tender, nondistended. MUSCULOSKELETAL: No cyanosis, or edema. BACK: Nontender without obvious deformity. No CVA tenderness. Neurologic exam: Patient is unresponsive. Patient with agonal rhythm. Patient does not respond to painful stimuli. Course Initial Documented Vital Signs Pulse Rate 134 H 12/17/17 07:54 Respiratory Rate 24 12/17/17 07:54 Pulse Oximetry 77 L 12/17/17 07:54 Last Documented Vital Signs Pulse Rate 121 H 12/17/17 08:53 Respiratory Rate 30 H 12/17/17 08:53 Blood Pressure 90/50 L 12/17/17 08:53 Pulse Oximetry 96 12/17/17 08:55 Medical Decision Making MDM Narrative Medical decision making narrative: 62-year-old female was brought in by EMS for altered mental status and unresponsive. Patient was found by her this morning unresponsive. Patient was given D10 and Narcan with minimal improvement of the mental status. Patient with respiratory distress. Patient was intubated. IV fluid 125 cc an hour. Normal saline solution 1 L IV bolus. Vancomycin 1 g IV given. Zosyn 3.375 g IV given. Zithromax 5 mg IV given. Levophed drip started to keep MAP above 65. Triple-lumen right femoral central line placement. Medical Screen Exam Complete: Yes Emergency Medical Condition: Yes Differential Diagnosis Differential Diagnosis: Differential diagnosis including respiratory failure, pneumonia, TIA, CVA, elective imbalance, dehydration, hypoglycemia, sepsis. Lab Data Lab results reviewed: Yes I reviewed the patient's lab results. Result diagrams: 12/17/17 08:10 12/17/17 08:10 Lab Results 12/17/17 12/17/17 12/17/17 Range/Units 08:10 08:10 08:10 WBC 21.2 H (4.0-11.0) th/mm3 RBC 3.36 L (4.00-5.30) mil/mm3 Hgb 10.9 L (11.6-15.3) gm/dL Hct 34.5 L (35.0-46.0) % MCV 102.8 H (80.0-100.0) fL MCH 32.3 (27.0-34.0) pg MCHC 31.4 L (32.0-36.0) % RDW 16.5 (11.6-17.2) % Plt Count 368 (150-450) th/mm3 MPV 9.4 (7.0-11.0) fL Prelim Diff (Auto) Slide review pending Neut % (Auto) 83.1 H (16.0-70.0) % Lymph % (Auto) 7.3 L (9.0-44.0) % [place] % (Auto) 9.5 H (0.0-8.0) % Eos % (Auto) 0.0 (0.0-4.0) % Baso % (Auto) 0.1 (0.0-2.0) % Neut # (Auto) 17.6 H (1.8-7.7) th/mm3 Lymph # (Auto) 1.6 (1.0-4.8) th/mm3 [place] # (Auto) 2.0 H (0.0-0.9) th/mm3 Eos # (Auto) 0.0 (0.0-0.4) th/mm3 Baso # (Auto) 0.0 (0.0-0.2) th/mm3 WBC Differential Manual diff final Seg Neuts % (Manual) 50 (16-70) % Band Neuts % (Manual) 30 H (0-6) % Lymphocytes % (Manual) 7 L (9-44) % Monocytes % (Manual) 5 (0-8) % Metamyelocytes % (Man) 6 H (0-1) % Myelocytes % (Man) 2 H (0-0) % Abs Neuts (Manual) 18.7 H (1.8-7.7) th/mm3 Differential Comment . Toxic Granulation 1+ H (None) Toxic Vacuolation Present H (None) Platelet Estimate Normal (Normal) Platelet Morphology Normal (Normal) PT 14.6 H (9.8-11.6) sec INR 1.4 Ratio APTT 27.3 (24.3-30.1) sec Puncture Site Patient Temperature O2 Saturation (90-100) % ABG pH (7.380-7.420) ABG pCO2 (38-42) mmHg ABG pO2 (61-120) mmHg ABG HCO3 (22-26) mmol/L ABG O2 Content (12.0-20.0) Vol % ABG Base Excess (-2-2) mmol/L ABG Methemoglobin (0-2) % [place] Test Hemoglobin (12.0-16.0) G/DL Carboxyhemoglobin (0-4) % O2 Delivery Device Vent Setting Inspired O2 % Critical Value Sodium 145 (136-145) meq/L Potassium 5.4 H (3.5-5.1) meq/L Chloride 117 H (98-107) meq/L Carbon Dioxide 15.6 L (21.0-32.0) meq/L Anion Gap 12 (5-15) meq/L BUN 22 H (7-18) mg/dL Creatinine 1.55 H (0.50-1.00) mg/dL Estimated GFR 34 L (>89) mL/min Random Glucose 72 L (74-106) mg/dL Lactic Acid (0.4-2.0) mmol/L Calcium 7.3 L* (8.5-10.1) mg/dL Prot Corrected Calcium 8.7 (8.5-10.1) mg/dL Total Bilirubin 0.1 L (0.2-1.0) mg/dL AST 62 H (15-37) U/L ALT 17 (10-53) U/L Alkaline Phosphatase 71 (45-117) U/L Total Creatine Kinase 902 H (26-192) U/L CK-MB (CK-2) 9.5 H (0.5-3.6) ng/mL CK-MB (CK-2) % 1.1 (0.0-4.0) % Troponin I 0.09 H (0.02-0.05) ng/mL Total Protein 4.6 L (6.4-8.2) g/dL Albumin 1.6 L (3.4-5.0) g/dL TSH 0.402 (0.358-3.740) uIU/mL Urine Color (Yellw/Straw) Urine Clarity (Clear) Urine pH (5.0-8.5) Ur Specific [place] (1.002-1.035) Urine Protein (Neg-Trace) mg/dL Urine Glucose (UA) (Negative) mg/dL Urine Ketones (Negative) mg/dL Urine Occult Blood (Negative) Urine Nitrate (Negative) Urine Bilirubin (Negative) Urine Urobilinogen (Less than 2) mg/dL Ur Leukocyte Esterase (Negative) Urine RBC (0-3) /hpf Urine WBC (0-5) /hpf Ur Squamous Epith Cells (0-5) /hpf Amorphous Sediment (None) /hpf Hyaline Casts (0-3) /lpf Urine Mucus (Occasional) /lpf Micro UA Comment Ur Microscopic Review Urine Culture Comments Salicylates (2.8-20.0) mg/dL Urine Opiates Screen (Neg) Acetaminophen (10.0-30.0) mcg/mL Ur Barbiturates Screen (Neg) Ur Amphetamines Screen (Neg) U Benzodiazepines Scrn (Neg) Urine Cocaine Screen (Neg) U Cannabinoids Screen (Neg) Serum Alcohol Less than 3 (0-5) mg/dL 12/17/17 12/17/17 12/17/17 Range/Units 08:10 08:10 08:40 WBC (4.0-11.0) th/mm3 RBC (4.00-5.30) mil/mm3 Hgb (11.6-15.3) gm/dL Hct (35.0-46.0) % MCV (80.0-100.0) fL MCH (27.0-34.0) pg MCHC (32.0-36.0) % RDW (11.6-17.2) % Plt Count (150-450) th/mm3 MPV (7.0-11.0) fL Prelim Diff (Auto) Neut % (Auto) (16.0-70.0) % Lymph % (Auto) (9.0-44.0) % [place] % (Auto) (0.0-8.0) % Eos % (Auto) (0.0-4.0) % Baso % (Auto) (0.0-2.0) % Neut # (Auto) (1.8-7.7) th/mm3 Lymph # (Auto) (1.0-4.8) th/mm3 [place] # (Auto) (0.0-0.9) th/mm3 Eos # (Auto) (0.0-0.4) th/mm3 Baso # (Auto) (0.0-0.2) th/mm3 WBC Differential Seg Neuts % (Manual) (16-70) % Band Neuts % (Manual) (0-6) % Lymphocytes % (Manual) (9-44) % Monocytes % (Manual) (0-8) % Metamyelocytes % (Man) (0-1) % Myelocytes % (Man) (0-0) % Abs Neuts (Manual) (1.8-7.7) th/mm3 Differential Comment Toxic Granulation (None) Toxic Vacuolation (None) Platelet Estimate (Normal) Platelet Morphology (Normal) PT (9.8-11.6) sec INR Ratio APTT (24.3-30.1) sec Puncture Site Patient Temperature O2 Saturation (90-100) % ABG pH (7.380-7.420) ABG pCO2 (38-42) mmHg ABG pO2 (61-120) mmHg ABG HCO3 (22-26) mmol/L ABG O2 Content (12.0-20.0) Vol % ABG Base Excess (-2-2) mmol/L ABG Methemoglobin (0-2) % [place] Test Hemoglobin (12.0-16.0) G/DL Carboxyhemoglobin (0-4) % O2 Delivery Device Vent Setting Inspired O2 % Critical Value Sodium (136-145) meq/L Potassium (3.5-5.1) meq/L Chloride (98-107) meq/L Carbon Dioxide (21.0-32.0) meq/L Anion Gap (5-15) meq/L BUN (7-18) mg/dL Creatinine (0.50-1.00) mg/dL Estimated GFR (>89) mL/min Random Glucose (74-106) mg/dL Lactic Acid 6.0 H* (0.4-2.0) mmol/L Calcium (8.5-10.1) mg/dL Prot Corrected Calcium (8.5-10.1) mg/dL Total Bilirubin (0.2-1.0) mg/dL AST (15-37) U/L ALT (10-53) U/L Alkaline Phosphatase (45-117) U/L Total Creatine Kinase (26-192) U/L CK-MB (CK-2) (0.5-3.6) ng/mL CK-MB (CK-2) % (0.0-4.0) % Troponin I (0.02-0.05) ng/mL Total Protein (6.4-8.2) g/dL Albumin (3.4-5.0) g/dL TSH (0.358-3.740) uIU/mL Urine Color (Yellw/Straw) Urine Clarity (Clear) Urine pH (5.0-8.5) Ur Specific [place] (1.002-1.035) Urine Protein (Neg-Trace) mg/dL Urine Glucose (UA) (Negative) mg/dL Urine Ketones (Negative) mg/dL Urine Occult Blood (Negative) Urine Nitrate (Negative) Urine Bilirubin (Negative) Urine Urobilinogen (Less than 2) mg/dL Ur Leukocyte Esterase (Negative) Urine RBC (0-3) /hpf Urine WBC (0-5) /hpf Ur Squamous Epith Cells (0-5) /hpf Amorphous Sediment (None) /hpf Hyaline Casts (0-3) /lpf Urine Mucus (Occasional) /lpf Micro UA Comment Ur Microscopic Review Urine Culture Comments Salicylates Less than 1.7 L (2.8-20.0) mg/dL Urine Opiates Screen (Neg) Acetaminophen Less than 2.0 L (10.0-30.0) mcg/mL Ur Barbiturates Screen (Neg) Ur Amphetamines Screen (Neg) U Benzodiazepines Scrn (Neg) Urine Cocaine Screen (Neg) U Cannabinoids Screen (Neg) Serum Alcohol (0-5) mg/dL 12/17/17 12/17/17 12/17/17 Range/Units 08:40 08:55 08:55 WBC (4.0-11.0) th/mm3 RBC (4.00-5.30) mil/mm3 Hgb (11.6-15.3) gm/dL Hct (35.0-46.0) % MCV (80.0-100.0) fL MCH (27.0-34.0) pg MCHC (32.0-36.0) % RDW (11.6-17.2) % Plt Count (150-450) th/mm3 MPV (7.0-11.0) fL Prelim Diff (Auto) Neut % (Auto) (16.0-70.0) % Lymph % (Auto) (9.0-44.0) % [place] % (Auto) (0.0-8.0) % Eos % (Auto) (0.0-4.0) % Baso % (Auto) (0.0-2.0) % Neut # (Auto) (1.8-7.7) th/mm3 Lymph # (Auto) (1.0-4.8) th/mm3 [place] # (Auto) (0.0-0.9) th/mm3 Eos # (Auto) (0.0-0.4) th/mm3 Baso # (Auto) (0.0-0.2) th/mm3 WBC Differential Seg Neuts % (Manual) (16-70) % Band Neuts % (Manual) (0-6) % Lymphocytes % (Manual) (9-44) % Monocytes % (Manual) (0-8) % Metamyelocytes % (Man) (0-1) % Myelocytes % (Man) (0-0) % Abs Neuts (Manual) (1.8-7.7) th/mm3 Differential Comment Toxic Granulation (None) Toxic Vacuolation (None) Platelet Estimate (Normal) Platelet Morphology (Normal) PT (9.8-11.6) sec INR Ratio APTT (24.3-30.1) sec Puncture Site Right radial Patient Temperature 98.6 O2 Saturation 88 L* (90-100) % ABG pH 7.25 L* (7.380-7.420) ABG pCO2 33 L (38-42) mmHg ABG pO2 61 (61-120) mmHg ABG HCO3 14 L* (22-26) mmol/L ABG O2 Content 12.4 (12.0-20.0) Vol % ABG Base Excess -11.9 L (-2-2) mmol/L ABG Methemoglobin 0.9 (0-2) % [place] Test Present Hemoglobin 10.0 L (12.0-16.0) G/DL Carboxyhemoglobin 1.0 (0-4) % O2 Delivery Device Ventilator Vent Setting A/c 14/550/peep5 Inspired O2 100 % Critical Value Yes Sodium (136-145) meq/L Potassium (3.5-5.1) meq/L Chloride (98-107) meq/L Carbon Dioxide (21.0-32.0) meq/L Anion Gap (5-15) meq/L BUN (7-18) mg/dL Creatinine (0.50-1.00) mg/dL Estimated GFR (>89) mL/min Random Glucose (74-106) mg/dL Lactic Acid (0.4-2.0) mmol/L Calcium (8.5-10.1) mg/dL Prot Corrected Calcium (8.5-10.1) mg/dL Total Bilirubin (0.2-1.0) mg/dL AST (15-37) U/L ALT (10-53) U/L Alkaline Phosphatase (45-117) U/L Total Creatine Kinase (26-192) U/L CK-MB (CK-2) (0.5-3.6) ng/mL CK-MB (CK-2) % (0.0-4.0) % Troponin I (0.02-0.05) ng/mL Total Protein (6.4-8.2) g/dL Albumin (3.4-5.0) g/dL TSH (0.358-3.740) uIU/mL Urine Color [place] (Yellw/Straw) Urine Clarity Cloudy H (Clear) Urine pH 5.0 (5.0-8.5) Ur Specific [place] 1.023 (1.002-1.035) Urine Protein 30 H (Neg-Trace) mg/dL Urine Glucose (UA) Negative (Negative) mg/dL Urine Ketones Trace H (Negative) mg/dL Urine Occult Blood Negative (Negative) Urine Nitrate Negative (Negative) Urine Bilirubin Negative (Negative) Urine Urobilinogen Less than 2 (Less than 2) mg/dL Ur Leukocyte Esterase Negative (Negative) Urine RBC 1 (0-3) /hpf Urine WBC 3 (0-5) /hpf Ur Squamous Epith Cells 1 (0-5) /hpf Amorphous Sediment Few H (None) /hpf Hyaline Casts 11 (0-3) /lpf Urine Mucus Few H (Occasional) /lpf Micro UA Comment Cath-culture not ind Ur Microscopic Review Not Reportable Urine Culture Comments Cath-cult not ind Salicylates (2.8-20.0) mg/dL Urine Opiates Screen Pos H (Neg) Acetaminophen (10.0-30.0) mcg/mL Ur Barbiturates Screen Neg (Neg) Ur Amphetamines Screen Neg (Neg) U Benzodiazepines Scrn Neg (Neg) Urine Cocaine Screen Neg (Neg) U Cannabinoids Screen Neg (Neg) Serum Alcohol (0-5) mg/dL Imaging Data Attestation: I personally reviewed and interpreted this imaging study as follows : Radiologist's impression: Chest X-Ray 12/17/17 08:02 CONCLUSION: Satisfactory support line and tube positioning. Bilateral infiltrates. Discharge Plan Discharge Disposition Patient Disposition: 30 Still Patient Discharge Details Diagnosis: Respiratory failure, Hypoglycemia, Pneumonia, Septic shock Physicians Team ED Provider: Harsh Shelton Primary Care Provider: UNKNOWN, Rxs /Orders / Referrals /Forms Prescriptions: No Action pravastatin 40 mg Tablet 40 mg PO DAILY RF: 0 lisinopril 30 mg Tablet 30 mg PO DAILY RF: 0 tizanidine 4 mg Capsule 4 mg PO DAILY RF: 0 quetiapine 25 mg Tablet 25 mg PO HS Qty: 30 RF: 0 famotidine 20 mg Tablet 20 mg PO BID Qty: 60 RF: 0 dicyclomine 20 mg Tablet 20 mg PO TID Qty: 30 RF: 0 cyanocobalamin (vitamin B-12) 1,000 mcg/mL Solution 1,000 mcg IM Q7D Qty: 30 RF: 0 vancomycin 500 mg Recon Soln 500 mg PO QID 14 Days RF: 0 multivitamin with folic acid [Thera] 400 mcg Tablet 1 tab PO DAILY Qty: 30 RF: 0 valproic acid 250 mg Capsule 500 mg PO TID Qty: 90 RF: 0 Lactobacillus acidophilus Capsule 500 mmu cells PO TID Qty: 90 RF: 0 potassium chloride 10 mEq Capsule, Extended Release 10 meq PO BID Qty: 10 RF: 0 Status ED Status: With Doctor
--- NOTE | 2017-12-17 08:32 | XR ---
EXAM DATE: 12/17/2017 8:02 AM EDT AGE/SEX: 62 years / Female INDICATIONS: Short of breath, unresponsive this morning, Post intubation CLINICAL DATA: This is the patient's initial encounter. Patient reports that signs and symptoms have been present for 1 day and indicates a pain score of Nonresponsive. MEDICAL/SURGICAL HISTORY: Non-responsive. Non-responsive. COMPARISON: [facility] [place], CHEST 1V SINGLE AP, 12/13/2017. . FINDINGS: Endotracheal tube tip is 5-6 cm above the neli. Nasogastric tube descends into the stomach. Patchy bilateral infiltrates are present, worse on the right than the left. Cardiac contours are grossly sta ble accounting for rotation. CONCLUSION: Satisfactory support line and tube positioning. Bilateral infiltrates. Electronically signed by: Pato Cruz MD 12/17/2017 8:30 AM EDT
[2017-12-17] MEDS ORDERED: Vancomycin Inj 1 GM/200 ML PIGGYBACK IV.SIG ONE (08:34)
[2017-12-17] MEDS ORDERED: Piperacil/Tazo 3.375 GM Premix 50 ML IV.SIG ONE (08:34)
[2017-12-17] MEDS ORDERED: Azithromycin Inj 500 MG in Sodium Chlor 0.9% Inj 250 ML IV.SIG ONE (08:34)
[2017-12-17 08:53] LABS: Baso % (Auto) 0.1 % (0.0-2.0); Hematocrit 34.5 % (35.0-46.0); Hemoglobin 10.9 gm/dL (11.6-15.3); Lymph # (Auto) 1.6 th/mm3 (1.0-4.8); Lymph % (Auto) 7.3 % (9.0-44.0); Mean Corpuscular HGB Conc 31.4 % (32.0-36.0); Mean Corpuscular Hemoglobin 32.3 pg (27.0-34.0); Mean Corpuscular Volume 102.8 fL (80.0-100.0); Mean Platelet Volume 9.4 fL (7.0-11.0); Mono % (Auto) 9.5 % (0.0-8.0); Neut # (Auto) 17.6 th/mm3 (1.8-7.7); Neut % (Auto) 83.1 % (16.0-70.0); Platelet Count 368 th/mm3 (150-450); Red Blood Count 3.36 mil/mm3 (4.00-5.30); Red Cell Distribution Width 16.5 % (11.6-17.2); White Blood Count 21.2 th/mm3 (4.0-11.0)
[2017-12-17 09:03] LABS: ABG Base Excess -11.9 mmol/L (-2-2); ABG PCO2 33 mmHg (38-42); ABG PO2 61 mmHg (61-120)
[2017-12-17] MEDS ORDERED: Dextrose 50% in Water Syringe 50 ML ONE (09:05)
[2017-12-17 09:07] LABS: Activated Partial Thrombo Time 27.3 sec (24.3-30.1); INR 1.4 Ratio
[2017-12-17 09:08] LABS: Prothrombin Time 14.6 sec (9.8-11.6)
[2017-12-17] MEDS ORDERED: Dextrose 50% in Water 50 ML Vial IV.PUSH ONE (09:25)
[2017-12-17 09:26] LABS: Alanine Aminotransferase 17 U/L (10-53); Albumin 1.6 g/dL (3.4-5.0); Alkaline Phosphatase 71 U/L (45-117); Anion Gap 12 meq/L (5-15); Aspartate Aminotransferase 62 U/L (15-37); Blood Urea Nitrogen 22 mg/dL (7-18); Calcium 7.3 mg/dL (8.5-10.1); Carbon Dioxide 15.6 meq/L (21.0-32.0); Chloride 117 meq/L (98-107); Creatine Kinase 902 U/L (26-192); Glomerular Filtration Rate 34 mL/min (>89); Glucose,Random 72 mg/dL (74-106); Potassium 5.4 meq/L (3.5-5.1); Sodium 145 meq/L (136-145); Thyroid Stimulating Hormone 0.402 uIU/mL (0.358-3.740); Total Protein 4.6 g/dL (6.4-8.2); Troponin I 0.09 ng/mL (0.02-0.05)
[2017-12-17] MEDS ORDERED: Sod Chloride 0.9% Inj 1,000 ML IV.SIG SCH (09:30)
[2017-12-17 09:53] LABS: Amorphous Sediment,Urine Few /hpf; Bilirubin,Urine Negative (Negative); Clarity,Urine Cloudy (Clear); Color,Urine Amber (Yellw/Straw); Glucose,Urine (UA) Negative (Negative); Hyaline Casts,Urine 11 /lpf (0-3); Leukocyte Esterase,Urine Negative (Negative); Mucus,Urine Few /lpf (Occasional); Nitrite,Urine Negative (Negative); Specific Gravity,Urine 1.023 (1.002-1.035); Squamous Epithelial Cell,Urine 1 /hpf (0-5)
[2017-12-17 09:57] LABS: Amphetamine Screen,Urine Neg (Neg); Barbiturate Screen,Urine Neg (Neg); Cannabinoid Screen,Urine Neg (Neg); Cocaine Screen,Urine Neg (Neg)
[2017-12-17 09:58] LABS: CKMB Percent 1.1 % (0.0-4.0); Creatine Kinase MB 9.5 ng/mL (0.5-3.6)
[2017-12-17 09:59] LABS: Opiate Screen,Urine Pos (Neg)
[2017-12-17 10:14] LABS: Lymphocytes 7 % (9-44); Metamyelocytes 6 % (0-1); Monocytes 5 % (0-8); Myelocytes 2 % (0-0)
[2017-12-17 10:16] LABS: Platelet Estimate Normal (Normal); Platelet Morphology Normal (Normal); Toxic Granulation 1+; Toxic Vacuolation Present
[2017-12-17] MEDS ORDERED: Vancomycin Consult Pharmacy OTHER PRN (10:45)
[2017-12-17] MEDS ORDERED: Bisacodyl 10 MG Supp RECTAL PRN (10:46)
[2017-12-17] MEDS ORDERED: Sodium Phosphate Inj 30 MMOL in Sodium Chlor 0.9% Inj 250 ML IV.SIG PRN (10:46)
[2017-12-17] MEDS ORDERED: Haloperidol Inj 5 MG/ML Ampul IV.PUSH PRN (10:46)
[2017-12-17] MEDS ORDERED: Potassium Phosphate Inj 30 MMOL in Sodium Chlor 0.9% Inj 250 ML IV.SIG PRN (10:46)
[2017-12-17] MEDS ORDERED: Potassium Phosphate 500 MG Soluble Tablet PO PRN (10:46)
[2017-12-17] MEDS ORDERED: Magnesium Sulfate Inj 4 GM in Sodium Chlor 0.9% Inj 92 ML IV.SIG PRN (10:46)
[2017-12-17] MEDS ORDERED: Magnesium Oxide 400 MG Tablet PO PRN (10:46)
[2017-12-17] MEDS ORDERED: Potassium Chlor 40 mEq Premix 40 MEQ/100 ML PIGGYBACK IV.SIG PRN (10:46)
[2017-12-17] MEDS ORDERED: Vancomycin Inj 1,000 MG in Sodium Chlor 0.9% Inj 250 ML IV.SIG ONE (11:00)
[2017-12-17 11:34] LABS: ABG Base Excess -11.6 mmol/L (-2-2); ABG PCO2 33 mmHg (38-42); ABG PO2 63 mmHg (61-120)
[2017-12-17 12:32] LABS: CKMB Percent 0.9 % (0.0-4.0)
--- NOTE | 2017-12-17 13:31 | ECG ---
Date Performed: 12/17/2017 Time Performed: 07:57:01 PTAGE: 62 years EKG: SINUS TACHYCARDIA NONSPECIFIC T-WAVE ABNORMALITY ABNORMAL RHYTHM ECG INTERPRETATION BASED O N A DEFAULT AGE OF 40 YEARS rate has increased since prior tracing, non specific ST waves persist Cli nical correlation is recommended PREVIOUS TRACING : 12/13/2017 08.29 DOCTOR: Jasbir Echeverria Interpretating Date/Time 12/17/2017 13:30:59
--- NOTE | 2017-12-17 13:47 | CT ---
EXAM DATE: 12/17/2017 1:21 PM EDT AGE/SEX: 62 years / Female INDICATIONS: Altered mental status. CLINICAL DATA: This is the patient's initial encounter. Patient reports that signs and symptoms have been present for 1 day and indicates a pain score of Nonresponsive. MEDICAL/SURGICAL HISTORY: Hypertension. . Back surgery. RADIATION DOSE: 56.35 CTDI (mGy) [place] [facility] [place]/O [place]AST, 12/15/2017. . TECHNIQUE: CT of the head without contrast. Using automated exposure control and adjustment of the mA and/or kV according to patient size, radiation dose was kept as low as reasonably achievable to ob tain optimal diagnostic quality images. DICOM format image data is available electronically for revi ew and comparison. FINDINGS: Cerebrum: The ventricles are normal for age. No evidence of midline shift, mass lesion, hemorrhage or acute infarction. There may be a punctate old lacunar type infarct in the right thalamus. No extr aaxial fluid collections are seen. Posterior Fossa: The cerebellum and brainstem are intact. The 4th ventricle is midline. The cerebe llopontine angle is unremarkable. Extracranial: The visualized portion of the orbits is intact. Skull: The calvaria is intact. No evidence of skull fracture. CONCLUSION: 1. 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 2. Otherwise negative. . Electronically signed by: Korey Luu MD 12/17/2017 1:46 PM EDT
--- NOTE | 2017-12-17 13:57 | CT ---
EXAM DATE: 12/17/2017 1:34 PM EDT AGE/SEX: 62 years / Female INDICATIONS: Evaluate for pneumonia. CLINICAL DATA: This is the patient's initial encounter. Patient reports that signs and symptoms have been present for 1 day and indicates a pain score of Nonresponsive. MEDICAL/SURGICAL HISTORY: Hypertension. . Back surgery. RADIATION DOSE: 5.06 CTDI (mGy) ; Combined studies COMPARISON: [facility], CHEST 1V SINGLE AP, 12/17/2017. . TECHNIQUE: Multiple contiguous axial images were obtained through the chest without contrast. Image s were obtained in suspended respiration using multiple row detector helical technique. Using automa sukhjinder exposure control and adjustment of the mA and/or kV according to patient size, radiation dose was kept as low as reasonably achievable to obtain optimal diagnostic quality images. DICOM format imag e data is available electronically for review and comparison. FINDINGS: Lung: Patchy groundglass opacities in the upper lobes near the apices with more confluent consolidati on in the right lower lobe and focally in the posterior left lower lobe and lingula. Air bronchograms are noted in the right lower lobe consolidation. Right apical bullous change. Pleura: Small to moderate sized right-sided hydropneumothorax with primarily anterior air component. Mediastinum: Heart is grossly unremarkable without significant pericardial effusion. There is an ETT in good position. There is an NGT in the stomach. Multiple small mediastinal nodes measuring up to 1 0 mm in the anterior tracheal region. Osseous Structures: No abnormal focal lytic or blastic bony lesions. Soft Tissues: Soft tissues are unremarkable. No significant axillary adenopathy. Other: Visulaized upper abdomen is unremarkable. CONCLUSION: 1. Small to moderate-sized right-sided hydropneumothorax. 2. Right lower lobe consolidation with air bronchograms. Differential considerations include aspirat ion and lobar pneumonia. 3. Patchy diffuse groundglass opacities most prominently in the upper lobes bilaterally. Differentia l considerations include bronchopneumonia, atypical infection and atypical pulmonary edema. 4. Mild mediastinal adenopathy, likely reactive. Electronically signed by: Bernardino Springer MD 12/17/2017 1:55 PM EDT
[2017-12-17] MEDS: Phenylephrine Inj 40 MG in Dextrose 5% in Water Inj 496 ML IV.CONT PRN ×4 (14:00→23:21)
--- NOTE | 2017-12-17 14:03 | CT ---
EXAM DATE: 12/17/2017 1:34 PM EDT AGE/SEX: 62 years / Female INDICATIONS: Abdominal pain. CLINICAL DATA: This is the patient's initial encounter. Patient reports that signs and symptoms have been present for 1 day and indicates a pain score of Nonresponsive. MEDICAL/SURGICAL HISTORY: Hypertension. . Back surgery. RADIATION DOSE: 5.06 CTDI (mGy) ; Combined studies COMPARISON: No prior exams available for comparison. TECHNIQUE: Multiple contiguous axial images were obtained through the abdomen. Images were obtained using multiple row detector helical technique. Using automated exposure control and adjustment of the mA and/or kV according to patient size, radiation dose was kept as low as reasonably achievable to o btain optimal diagnostic quality images. DICOM format image data is available electronically for rev iew and comparison. FINDINGS: LOWER LUNGS: Moderate size hydropneumothorax with patchy bilateral groundglass opacities and conflue nt consolidation in the right lower lobe. LIVER: Diffusely homogeneous density without intrahepatic ductal dilatation or volume loss. Small la yering hyperdensities in the gallbladder may reflect small gallstones. SPLEEN: Homogeneous density without enlargement. PANCREAS: Grossly unremarkable. KIDNEYS: Kidneys are symmetrical in size without evidence for radiopaque renal calculi or hydronephr osis. No significant contour deforming renal abnormality. ADRENAL GLANDS: Unremarkable. AORTA: Caity-aneurysmal. Right femoral central line extending to the iliac vein. BOWEL/MESENTERY: Moderate stool in the rectum. Mild diffuse colonic wall thickening which is likely exaggerated by lack of distention. Small bowel loops are normal in caliber. There is a small amount o f ascites in the abdomen. No focal drainable fluid collections. No definitive free air or pneumatosis . NGT is in the stomach. ABDOMINAL WALL: Mild anasarca in the lower abdominal wall. BLADDER: Decompressed secondary to Read catheter. REPRODUCTIVE: Grossly unremarkable. BONY STRUCTURES: Postsurgical features of prior anterior, intradiscal and posterior fixation at L4-S 1. Significant associated degenerative changes with degenerative disc disease at L3-4. CONCLUSION: 1. Moderate diffuse colonic wall thickening exaggerated by lack of colonic distention. This may be d ue to low-protein state/edema. However, differential considerations include infectious and inflammato ry colitis. 2. Moderate-sized right hydropneumothorax with airspace disease in the lung bases as described on ch est CT. 3. Additional ancillary findings, as above. Electronically signed by: Bernardino Springer MD 12/17/2017 2:02 PM EDT
--- NOTE | 2017-12-17 14:43 | P.HPCC ---
History of Present Illness Service: Critical Care Medicine Primary Care Physician: UNKNOWN History of Present Illness: This is a 62yF who was originally admitted on 11/23 with a diagnosis of colitis, found to have enterovirus. discharged on 12/11 at that time on PO vancomycin, but came back on 12/13 with altered mental status and hypoglycemia, again discharged on 12/15. She was mildly fatigued on 12/16 according to her and asked to wait another day before traveling back to her home in [place]. This morning, she was unarousable and her called 911. She was intubated upon arrival to the emergency department for agonal respirations. CXR demonstrates bilateral multifocal pneumonia. She is febrile, hypotensive. CVL placed in the ER and vasopressors initiated after 2L bolus crystalloid. CT chest/abd/pelvis demonstrates right pneumothorax, densely consolidated right lower lobe, bilateral pulmonary infiltrates, evidence of ongoing colitis. Patient continue to be unstable. Immediately after identifying ptx on CT scan, I emergently placed right chest tube with some improvements in hemodynamics, but ongoing distributive shock persists. I placed arterial line. No additional information available from the patient, ROS unobtainable. In discussion with the , she has not had any new complaints in the 48h she was home, and other than mild fatigue last night, no new complaints. She was able to walk to the bathroom without assistance yesterday. Inpatient Certification: I certify that the inpatient services were ordered in accordance with Medicare regulations governing the order. This includes certification that hospital inpatient services are reasonable and necessary and in the case of services not specified as inpatient-only under 42 CFR 419.22(n), that they are appropriately provided as inpatient services in accordance to with the 2-midnight benchmark under 43 CFR 412.3(e) Estimated Total Length of Stay (Days): 7 Plans for Post Hospital Care: Not yet determined Review of Systems unobtainable due to endotracheal tube, unobtainable due to mental condition, unobtainable due to mental status PMFSH - History History Provided By: Family Member, Medical Record, Felt Hat Flanging Operator / EMT - Medical History Medical History: Medical History (Last Reviewed 12/17/17 @ 17:15 by Sim Garces MD) Chronic pain HTN (hypertension) Hyperlipidemia MDRO (multiple drug resistant organisms) resistance Onset Date: ~12/13/17 - Surgical History Surgical History: Surgical History (Last Reviewed 12/17/17 @ 17:15 by Sim Garces MD) Previous back surgery - Family History Family History: Family History (Last Reviewed 12/17/17 @ 17:15 by Sim Garces MD) Father Colon cancer - Social History I have reviewed the patient's Social History: Yes - Tobacco History Second Hand Smoke Exposure: Yes Smoking Status: Unknown if ever smoked Tobacco Type: Cigarettes Packs Per Day: 0.5 - Alcohol History How Often Do You Have a Drink Containing Alcohol: Unable to Obtain - Substance Use History Substance History: No History of Abuse - Travel History Recent Travel in the [place] Within the Last 8 Weeks: No Recent Travel Out of the Country Within the Last 8 Weeks: No - Immunization History Tetanus Immunization: Unable to Assess Medications and Allergies Active Medications: Active Medications Albuterol (Duoneb Neb (Ender)) 1 ampul NEB Q6HR NEB ENDER Albuterol (Duoneb Neb (Prn)) 1 ampul NEB Q2HR NEB PRN PRN Reason: WHEEZING Bisacodyl (Dulcolax Supp) 10 mg RECTAL DAILY PRN PRN Reason: if no BM in last 24h Chlorhexidine Gluconate (Peridex 0.12% Oral Kit) 15 ml OROPHARYNG BID@0800, 2000 [facility] Chlorhexidine Gluconate (Chlorhexidine 2% Cloth) 3 pack TOPICAL DAILY@0400 ENDER Stop: 12/23/17 03:59 Chlorhexidine Gluconate (Chlorhexidine 2% Cloth) 3 pack TOPICAL DAILY@0400 PRN PRN Reason: Extra cloth needed Stop: 12/23/17 03:59 Famotidine (Pepcid) 20 mg PO BID ENDER Famotidine (Pepcid Pf Inj) 20 mg IV.PUSH Q12HR ENDER Haloperidol Lactate (Haldol Inj) 5 mg IV.PUSH Q1H PRN PRN Reason: AGITATION Heparin Sodium (Porcine) (Heparin Inj) 5,000 units SQ Q8HR ENDER Fentanyl (Fentanyl 10 Mcg/Ml Premix Drip) 2,500 mcg in 250 mls @ 5 mls/hr IV.SIG TITRATE PRN; Protocol PRN Reason: Per Protocol Last Titration: 12/17/17 09:39 Dose: 150 mcg/hr, 15 mls/hr Sodium Chloride (Ns Inj) 1,000 mls @ 125 mls/hr IV.CONT .Q8H ENDER Last Admin: 12/17/17 08:14 Dose: 125 mls/hr Midazolam HCl (Versed Inj) 50 mg in 50 mls @ 2 mls/hr IV.CONT TITRATE PRN; Protocol PRN Reason: Per Protocol Last Admin: 12/17/17 08:28 Dose: 2 mg/hr, 2 mls/hr Norepinephrine Bitartrate (Levophed-Dextrose 4 Mg/250 Ml Drip) 4 mg in 250 mls @ 7.5 mls/hr IV.SIG TITRATE PRN; Protocol PRN Reason: Per Protocol Last Titration: 12/17/17 11:57 Dose: 10 mcg/min, 37.5 mls/hr Sodium Chloride (Ns Inj) 1,000 mls @ 0 mls/hr IV.SIG BOLUS ENDER Last Admin: 12/17/17 09:59 Dose: 1,000 mls/hr Metronidazole/Sodium Chloride (Flagyl 500 Mg Inj) 100 mls @ 100 mls/hr IV.SIG Q6HR ENDER Cefepime HCl 1,000 mg/ Sodium (Chloride) 100 mls @ 200 mls/hr IV.SIG Q8H ENDER Lactated Ringer's (Lr 1000 Ml Inj) 1,000 mls @ 84 mls/hr IV.CONT .[id number] ENDER Magnesium Sulfate 4 gm/ Sodium (Chloride) 100 mls @ 50 mls/hr IV.SIG UNSCH PRN PRN Reason: For Magnesium 0.9 - 1.1 mg/dL Magnesium Sulfate 2 gm/ Sodium (Chloride) 100 mls @ 50 mls/hr IV.SIG UNSCH PRN PRN Reason: For Magnesium 1.2 - 1.6 mg/dL Potassium Chloride (Kcl 40 Meq Premix Inj) 40 meq in 100 mls @ 25 mls/hr IV.SIG Q2H PRN PRN Reason: For Potassium 2.8 - 3.2 mEq/L Potassium Chloride (Kcl 20 Meq Premix Inj) 20 meq in 100 mls @ 50 mls/hr IV.SIG Q2H PRN PRN Reason: For Potassium 3.3 - 3.5 mEq/L Potassium Chloride (Kcl 40 Meq Premix Inj) 40 meq in 100 mls @ 25 mls/hr IV.SIG UNSCH PRN PRN Reason: For Potassium 3.3 - 3.5 mEq/L Potassium Chloride (Kcl 20 Meq Premix Inj) 20 meq in 100 mls @ 50 mls/hr IV.SIG Q2H PRN PRN Reason: For Potassium 2.8 - 3.2 mEq/L Potassium Phosphate 30 mmol/ (Sodium Chloride) 260 mls @ 42 mls/hr IV.SIG UNSCH PRN PRN Reason: SEE LABEL COMMENTS Sodium Phosphate 30 mmol/ (Sodium Chloride) 260 mls @ 42 mls/hr IV.SIG UNSCH PRN PRN Reason: For Phosphorus < 2.5 mg/dL Azithromycin 500 mg/ Sodium (Chloride) 250 mls @ 250 mls/hr IV.SIG Q24H ENDER Dextrose (D10w Inj) 1,000 mls @ 42 mls/hr IV.CONT .[id number] ENDER Vancomycin HCl 1,250 mg/ (Sodium Chloride) 262.5 mls @ 250 mls/hr IV.SIG Q24H ENDER Lactulose (Lactulose Liq) 30 ml PO BID ENDER Magnesium Oxide (Mag-Ox) 800 mg PO UNSCH PRN PRN Reason: For Magnesium 1.2 - 1.6 mg/dL Miscellaneous Information ([facility] Ordered Lab Info) 0 each OTHER ONCE ONE Stop: 12/20/17 05:46 Miscellaneous Medication () 1 each OROPHARYNG 0000,0400,1200,1600 ENDER Ondansetron HCl (Zofran Inj) 4 mg IV.PUSH Q6H PRN PRN Reason: NAUSEA OR VOMITING Pharmacy Profile Note (Vancomycin Consult Pharmacy) 1 each OTHER UNSCH PRN PRN Reason: Pharmacy to dose Polyethylene Glycol (Miralax) 17 gm PO BID ENDER Potassium Bicarb/Potassium Chloride (K-Lyte Cl Eff) 50 meq PO UNSCH PRN PRN Reason: For Potassium 3.3 - 3.5 mEq/L Potassium Phosphate (K-Phos Original) 2,000 mg PO Q4H PRN PRN Reason: Phosphorus Less Than 2.5 mg/dL Potassium Phosphate (K-Phos Original) 2,000 mg PO UNSCH PRN PRN Reason: SEE LABEL COMMENTS Senna/Docusate Sodium (Kaylyn-Colace) 1 tab PO BID ENDER Sodium Chloride (Ns Flush) 2 ml IV.FLUSH UNSCH PRN PRN Reason: FLUSH AFTER USING IV ACCESS Terbutaline Sulfate (Brethine Inj) 1 mg SQ UNSCH PRN PRN Reason: For Extravasation Allergies Allergy/AdvReac Type Severity Reaction Status Date / Time No Known Allergies Allergy Verified 12/13/17 08:04 Home Medications Medication Instructions Recorded Confirmed Type lisinopril 30 mg PO DAILY 11/23/17 12/17/17 History pravastatin 40 mg PO DAILY 11/23/17 12/17/17 History tizanidine 4 mg PO DAILY 11/23/17 12/17/17 History Results - Labs CBC & Chem 7: 12/17/17 08:10 12/17/17 08:10 Labs: Short CBC 12/17/17 Range/Units 08:10 WBC 21.2 H (4.0-11.0) th/mm3 Hgb 10.9 L (11.6-15.3) gm/dL Hct 34.5 L (35.0-46.0) % Plt Count 368 (150-450) th/mm3 BMP 12/17/17 08:10 Sodium 145 Potassium 5.4 H Chloride 117 H Carbon Dioxide 15.6 L BUN 22 H Creatinine 1.55 H Calcium 7.3 L* Cardiac Enzymes 12/17/17 12/17/17 Range/Units 08:10 11:35 Total Creatine Kinase 902 H 1093 H (26-192) U/L CK-MB (CK-2) 9.5 H 10 H (0.5-3.6) ng/mL Troponin I 0.09 H (0.02-0.05) ng/mL Liver Function 12/17/17 Range/Units 08:10 Total Bilirubin 0.1 L (0.2-1.0) mg/dL AST 62 H (15-37) U/L ALT 17 (10-53) U/L Alkaline Phosphatase 71 (45-117) U/L Albumin 1.6 L (3.4-5.0) g/dL Urine 12/17/17 Range/Units 08:55 Urine Color Vee (Yellw/Straw) Urine Clarity Cloudy H (Clear) Urine pH 5.0 (5.0-8.5) Ur Specific [place] 1.023 (1.002-1.035) Urine Protein 30 H (Neg-Trace) mg/dL Urine Glucose (UA) Negative (Negative) mg/dL - Imaging Impressions Chest X-Ray 12/17/17 08:02 CONCLUSION: Satisfactory support line and tube positioning. Bilateral infiltrates. Head CT 12/17/17 08:02 CONCLUSION: 1. 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 2. Otherwise negative. . Abdomen/Pelvis CT 12/17/17 10:45 CONCLUSION: 1. Moderate diffuse colonic wall thickening exaggerated by lack of colonic distention. This may be due to low-protein state/edema. However, differential considerations include infectious and inflammatory colitis. 2. Moderate-sized right hydropneumothorax with airspace disease in the lung bases as described on chest CT. 3. Additional ancillary findings, as above. Chest CT 12/17/17 10:45 CONCLUSION: 1. Small to moderate-sized right-sided hydropneumothorax. 2. Right lower lobe consolidation with air bronchograms. Differential considerations include aspiration and lobar pneumonia. 3. Patchy diffuse groundglass opacities most prominently in the upper lobes bilaterally. Differential considerations include bronchopneumonia, atypical infection and atypical pulmonary edema. 4. Mild mediastinal adenopathy, likely reactive. Exam Vital signs: Vital Signs 12/17/17 07:54 12/17/17 07:55 12/17/17 07:59 Pulse Rate 134 H Respiratory Rate 24 14 Blood Pressure 107/55 L Pulse Oximetry 77 L 96 94 L 12/17/17 08:18 12/17/17 08:49 12/17/17 08:53 Pulse Rate 124 H 121 H Respiratory Rate 28 H 30 H Blood Pressure 115/71 90/50 L Pulse Oximetry 96 94 L 94 L 12/17/17 08:55 12/17/17 10:22 12/17/17 10:40 Pulse Rate 109 H Respiratory Rate 22 28 H Blood Pressure 88/59 L Pulse Oximetry 96 95 12/17/17 11:26 12/17/17 11:37 12/17/17 12:43 Pulse Rate 106 H 106 H Respiratory Rate 22 22 20 Blood Pressure 73/49 L 86/55 L Pulse Oximetry 95 93 L 96 12/17/17 13:15 Pulse Rate Respiratory Rate Blood Pressure Pulse Oximetry 96 Intake & Output 12/16/17 12/17/17 12/17/17 18:59 06:59 18:59 Intake Total 350 / 350 Balance 350 / 350 Intake: IV 350 / 350 [id number] Syringe 50 ML @ 0 mls/hr . 50 / [address] Rx#:[id number] Azithromycin Inj 500 MG In NS 250 / 250 Inj 250 ML @ 250 mls/hr IV.SIG ONCE ONE Rx#:[id number] Zosyn 3.375 GM Premix 50 ML @ 50 / 50 100 mls/hr IV.SIG ONCE ONE Rx#: [id number] Other: Bladder Irrigation Fluid - Amount Instilled Indwelling Urethral Catheter 0 Bladder Irrigation Fluid - Amount Drained Indwelling Urethral Catheter 300 Narrative: GENERAL: middle-aged female, lying in bed, intubated, sedated, critically ill. HEENT: Normocephalic. Atraumatic. Pupils equal, round, reactive, conjugate. Mucous membranes are moist NECK: Trachea is midline. There is no JVD. CHEST: Equal chest rise. PRVC. 100% FiO2. Right-sided chest tube with 3+ air leak. Subcu air in the right chest wall. CARDIOVASCULAR: Tachycardic rate, regular rhythm. Hypotensive. On norepinephrine and phenylephrine infusions. ABDOMEN: Soft, nontender, nondistended. No guarding. MUSCULOSKELETAL: Pulses 2+. No peripheral edema. NEUROLOGICAL: RASS -3. Withdraws to pain x4. Does not follow commands. Septic Shock Reassessment Septic shock perfusion: reassessment completed Caprini VTE Risk Assessment Caprini VTE Risk Assessment: Moderate/High Risk (score >= 2) Caprini Risk Assessment Model: Point Value = 1 Point Value = 2 Point Value = 3 Point Value = 5 Age 41-60 Minor surgery BMI > 25 kg/m2 Swollen legs Varicose veins or History of unexplained or recurrent spontaneous Oral contraceptives or hormone replacement Sepsis (< 1 month) Serious lung disease, including pneumonia (< 1 month) Abnormal pulmonary function Acute myocardial infarction Congestive heart failure (< 1 month) History of inflammatory bowel disease Medical patient at bed rest Age 61-74 Arthroscopic surgery Major open surgery (> 45 min) Laparoscopic surgery (> 45 min) Malignancy Confined to bed (> 72 hours) Immobilizing plaster cast Central venous access Age >= 75 History of VTE Family history of VTE Factor V Leiden Prothrombin [id number] Lupus anticoagulant Anticardiolipin antibodies Elevated serum homocysteine Heparin-induced thrombocytopenia Other congenital or acquired thrombophilia Stroke (< 1 month) Elective arthroplasty Hip, pelvis, or leg fracture Acute spinal cord injury (< 1 month) Prophylaxis Regimen: Total Risk Factor Score Risk Level Prophylaxis Regimen 0-1 Low Early ambulation 2 Moderate Order ONE of the following: *Sequential Compression Device (SCD) *Heparin 5000 units SQ BID 3-4 Higher Order ONE of the following medications: *Heparin 5000 units SQ TID *Enoxaparin/Lovenox 40 mg SQ daily (WT < 150 kg, CrCl > 30 mL/min) *Enoxaparin/Lovenox 30 mg SQ daily (WT < 150 kg, CrCl > 10-29 mL/min) *Enoxaparin/Lovenox 30 mg SQ BID (WT < 150 kg, CrCl > 30 mL/min) AND/OR *Sequential Compression Device (SCD) 5 or more Highest Order ONE of the following medications: *Heparin 5000 units SQ TID (Preferred with Epidurals) *Enoxaparin/Lovenox 40 mg SQ daily (WT < 150 kg, CrCl > 30 mL/min) *Enoxaparin/Lovenox 30 mg SQ daily (WT < 150 kg, CrCl > 10-29 mL/min) *Enoxaparin/Lovenox 30 mg SQ BID (WT < 150 kg, CrCl > 30 mL/min) AND *Sequential Compression Device (SCD) Assessment and Plan - Assessment and Plan Plan: Assessment: 62yF with multiple recent admissions who now presents with acute and severe bilateral healthcare associated pneumonia, septic shock, acute hypoxic respiratory failure. This does have the appearance of an aspiration event/aspiration pneumonia, and she may have aspirated if she became altered again. She is very critically ill at this time with multiorgan failure. Plan by systems: Neurologic: Acute metabolic encephalopathy Hyperammonemia Possible hepatic encephalopathy Possible seizure disorder She has a history of elevated ammonia in the past and is 70 today. We will start lactulose Unclear etiology of her hyperammonemia as she does not clinically appear to have severe end-stage liver disease Frequent neurochecks Fentanyl and Versed for goal RASS -2 Avoid long-acting sedatives She was started on anticonvulsants and her initial admission 11/23. We will continue these. Head CT 12/17- for acute disease Respiratory: Acute hypoxic and hypercarbic respiratory failure Acute severe bilateral multifocal healthcare associated pneumonia Possible aspiration pneumonia Spontaneous right-sided tension pneumothorax Status post emergent chest tube 12/17: To suction. Significant subcutaneous air. May need second additional large bore chest tube A.m. chest x-ray Vent bundle Head of bed elevated Nebs Wean FiO2 for goal SPO2 greater than 90% No weaning of mechanical ventilation until shock improves Cardiovascular: Septic shock Elevated troponin Type II NSTEMI secondary to demand ischemia Maintenance IV fluids Norepinephrine for goal map greater than 65 Trend troponins. Will not anticoagulate. Unlikely to be ACS. Renal: Acute kidney injury Secondary to shock Place Read Frequent urine output monitoring Daily creatinine Additional IV fluids and maintenance fluids -- Strict I/Os FEN/GI: Acute intravascular volume depletion Acute protein calorie malnutritionmoderate Lactic acidosis Severe acute anion gap metabolic acidosis Severe colitis Enterovirus colitis C. difficile colitis Hyperammonemia Maintenance IV fluids Place orogastric tube to low intermittent wall suction N.p.o. while in shock ICU electrolyte protocol Daily BMP, magnesium, phosphorus Trend lactates Lactulose Heme/ID: C. difficile colitis Enterovirus colitis Septic shock Healthcare associated multifocal pneumonia Vancomycin with pharmacy dosing Cefepime 1 g IV every 8 hours Flagyl 500 mg IV every 6 hours Azithromycin 500 mg every 24 hours Send sputum culture Send right-sided pleural fluid for cell count Gram stain and culture UA with reflex urine culture positive Blood culture x2 Infectious disease consultation Endocrine: Acute hypoglycemia Frequent glycemic checks D10W at 42 cc an hour Prophylaxis: GI Prophylaxis Pepcid IV DVT Prophylaxis -- SCDs Subcu heparin Lines: 12/17 femoral triple-lumen catheter 12/17 right radial arterial line 12/17 right 28 [place] chest tube to suction 12/17 Read Dispo: Admit ICU. Very critically ill. This patient remains critically ill with one or more organ systems which are or may become a threat to life. I have spent in excess of 92 minutes discontinuously in the care and management of this patient. This time is exclusive of procedures, and includes, but is not limited to, evaluation of the patient, review of the medical record, discussions with family, consultants, nursing staff, or respiratory therapy, and documentation in the medical record.
--- NOTE | 2017-12-17 15:22 | XR ---
EXAM DATE: 12/17/2017 3:11 PM EDT AGE/SEX: 62 years / Female INDICATIONS: Evaluate right side chest tube placement. CLINICAL DATA: This is the patient's subsequent encounter. Patient reports that signs and symptoms h ave been present for 3 days and indicates a pain score of Nonresponsive. MEDICAL/SURGICAL HISTORY: Hypertension. Non-responsive. [place] [facility] [place]. . FINDINGS: A single AP view of the chest demonstrates interval placement of a right-sided thoracostomy tube proj ecting over the right lower chest with the tip near the perihilar distribution. I do believe that the re is a right apical lateral pneumothorax measuring approximately 1.5 cm in depth. Extensive subcutan eous and deep tissue emphysematous changes are now seen about the right hemithorax. Endotracheal tube remains appropriately positioned above the neli. Nasogastric tube traverses the GE junction and ex tends off the inferior aspect of the image. Bilateral airspace infiltrates persist, predominantly in the right inferior perihilar distribution an d left upper lobe CONCLUSION: 1. Persistent bilateral airspace infiltrates. 2. Interval placement of a right-sided thoracostomy tube. There does appear to be an apical lateral 1.5 cm right pneumothorax. 3. Extensive subcutaneous and deep tissue emphysematous changes about the right hemithorax. Electronically signed by: Korey Luu MD 12/17/2017 3:21 PM EDT
[2017-12-17] MEDS: Heparin - SQ 10,000 UNITS/ML Vial SQ SCH ×2 (16:21→22:38)
[2017-12-17] MEDS: Oral Hygiene Kit OROPHARYNG SCH (16:21)
[2017-12-17] MEDS: Dextrose 10% in Water Inj 1,000 ML IV.CONT SCH (16:47)
[2017-12-17 17:03] LABS: Troponin I 0.14 ng/mL (0.02-0.05)
[2017-12-17 17:14] LABS: CKMB Percent 0.9 % (0.0-4.0); Creatine Kinase MB 10.5 ng/mL (0.5-3.6)
[2017-12-17] MEDS ORDERED: Albumin Human 5% Inj 500 ML IV.SIG STA (17:16)
[2017-12-17 17:25] LABS: Total Protein,Pleural Fluid 1.8 gm/dL
--- NOTE | 2017-12-17 17:28 | P.PCN ---
Date of procedure: 12/17/17 Procedure: Procedure: Arterial Line Placement Right radial arterial line Diagnosis: Septic shock Indications: Beat to beat hemodynamic monitoring Consent: Emergent Description of the Procedure: The right wrist was prepped and draped sterilely. 1% lidocaine was used for local anesthesia. The pulse was located and a needle was advanced into the artery. A 20 gauge, 12 cm catheter was advanced into the artery using a modified Seldinger technique. The catheter was sutured to the skin and a sterile dressing was applied. The catheter was connected to a pressure transducer and an arterial waveform was noted. There were no immediate complications noted. There was minimal EBL. I personally performed the procedure.
--- NOTE | 2017-12-17 17:30 | P.PCN ---
Date of procedure: 12/17/17 Procedure: Tube Thoracostomy Procedure Note Right 28 Maori chest tube Diagnosis: Tension Hydropneumothorax Indications: Spontaneous tension hydropneumothorax Consent: Emergent Anesthesia: Versed and fentanyl IV Description of the Procedure: The patient was placed in the supine position. The arm was abducted above the head and secured. The right lateral chest was prepped and draped sterilely to include the axilla and nipple. The 5th intercostal space was identified. A small incision was made using a #11 blade. At the mid-axillary line, blunt dissection was performed until the rib was palpated. A Anette clamp was used to bluntly enter the pleura immediately above the adjacent rib. The space was opened bluntly with the Anette clamp. A finger was inserted and lung and pleura were felt. A 28 Fr chest tube was inserted along the course of the finger and into the pleural cavity easily and without resistance. The chest tube was connected to a Pleur-o-vac and connected to [id number] suction. The catheter was sutured to the skin using a 0 silk sandal suture and an occlusive dressing was applied. There were no immediate complications noted. There was minimal EBL. The patient tolerated the procedure well. Chest Tube output: 200mL A Chest x-ray has been ordered. I personally performed the procedure.
[2017-12-17 18:19] LABS: Lymphocytes,Pleural Fluid 17 %; Mesothelial,Pleural Fluid 3 %; Monocytes,Pleural Fluid 3 %; Neutrophils,Pleural Fluid 42 %
[2017-12-17 18:20] LABS: RBC,Pleural Fluid 15425 /mm3 (0-0)
--- NOTE | 2017-12-17 19:42 | P.PNADD ---
Addendum to Inpatient Note Additional information: seen around 1800 full note to follow 62 yo with multiple med problems R complicated fluid collection pneumohydrothorax recent PMC, stool formed, bowell thickening on CT on vent 90%FiO2/10 PEEP + pressors abx : azithro, cefepime, vanco clx P A/P fu clx cont current abx
[2017-12-17 20:00] LABS: Haptoglobin 375 mg/dL (30-200)
[2017-12-17 20:02] LABS: Prealbumin 9 mg/dL (20-40)
[2017-12-17] MEDS: Famotidine PF Inj 20 MG/2 ML Vial IV.PUSH SCH (20:36)
[2017-12-17] MEDS: Polyethylene Glycol 3350 17 GM Packet PO SCH (20:37)
[2017-12-17] MEDS: Chlorhexidine 0.12% Oral Kit 15 ML UDC OROPHARYNG SCH (20:37)
[2017-12-17] MEDS: Senna/Docusate Sodium 8.6/50 MG Tablet PO SCH (20:37)
[2017-12-17] MEDS: QUEtiapine 25 MG Tablet PO SCH (20:37)
[2017-12-17] MEDS: Famotidine 20 MG Tablet PO SCH (20:38)
[2017-12-17] MEDS ORDERED: Lidocaine 1%/Epinephrine 1:100,000 Inj 20 ML Vial ONE (21:18)
--- NOTE | 2017-12-17 21:35 | XR ---
EXAM DATE: 12/17/2017 9:28 PM EDT AGE/SEX: 62 years / Female INDICATIONS: Evaluate for pneumothorax CLINICAL DATA: This is the patient's subsequent encounter. Patient reports that signs and symptoms h ave been present for 4 - 6 days and indicates a pain score of Nonresponsive. MEDICAL/SURGICAL HISTORY: Hypertension. None. COMPARISON: [facility], CHEST 1V SINGLE AP, 12/17/2017. . FINDINGS: There is a right-sided chest tube with small right pneumothorax slightly increased in size from earli er exam. There is also an increase in subcutaneous air which now extends more into the left hemithora x. Nasogastric tube and endotracheal tube are unchanged. Basilar airspace disease is increased slight ly on the left. CONCLUSION: Right-sided chest tube with slight increase in right pneumothorax compared with earlier exam. Slight increase in left basilar airspace disease since earlier exam. Slight worsening of subcutaneous air with extension into the left hemithorax and neck. Electronically signed by: Conner Quinonez MD 12/17/2017 9:34 PM EDT
[2017-12-17] MEDS ORDERED: Sodium Chlor 0.9% Inj 250 ML IV.SIG SCH (22:00)
--- NOTE | 2017-12-17 22:05 | P.PCN ---
Date of procedure: 12/17/17 Pre-op diagnosis: Right tension pneumothorax Procedure: Procedure: Right chest tube placement Indication: Acute tension pneumothorax Details of procedure: Patient is intubated and presently not capacitated for medical decision-making. Informed consent was obtained from her after discussion of risk, benefits, alternatives.. The patient was laid supine. The lateral chest wall was cleaned with ChloraPrep x4. Regional sterile drapes were applied. 1% lidocaine was used for local anesthesia and injected into the subcutaneous and deep muscle tissues. A 1.5 cm skin incision was made with a scalpel blade. A hemostat was used for blunt dissection. The hemostat was entered into the pleural space superior to the rib with release of wynn of air. BP immediately improved. I explored the wound with my finger. A size 32 Slov[place] chest tube was inserted with a Anette clamp into the pleural cavity and directed toward the apex . 2-0 silk was used to close the wound and to secure the chest tube. A sterile Vaseline gauze dressing was applied. The chest tube was connected to a Pleur-evac drainage system. There was a persistent 3+ air leak. There was 5 Ml of serosanguineous output from the chest tube. Estimated blood loss: <5 mL Complications: None. Stat chest x-ray demonstrates satisfactory chest tube position with improvement of right pneumothorax.
[2017-12-17] MEDS ORDERED: Sodium Chlor 0.9% Inj 500 ML IV.SIG SCH (22:06)
[2017-12-17 22:16] LABS: ABG PCO2 47 mmHg (38-42); ABG PO2 276 mmHG (61-120)
--- NOTE | 2017-12-17 22:25 | XR ---
EXAM DATE: 12/17/2017 10:21 PM EDT AGE/SEX: 62 years / Female INDICATIONS: Post right side chest tube placement. CLINICAL DATA: This is the patient's subsequent encounter. Patient reports that signs and symptoms h ave been present for 1 day and indicates a pain score of Nonresponsive. MEDICAL/SURGICAL HISTORY: Non-responsive. Non-responsive. COMPARISON: [facility] [place], CHEST 1V SINGLE AP, 12/17/2017. . FINDINGS: A second right-sided chest tube has been placed with near complete resolution of the previous right p neumothorax. Endotracheal tube and nasogastric tube unchanged. Bilateral airspace disease in the subc utaneous air is stable. CONCLUSION: Placement of second right-sided chest tube with near complete resolution of previous right pneumothor ax. Electronically signed by: Conner Quinonez MD 12/17/2017 10:24 PM EDT
[2017-12-17] MEDS: Vasopressin Inj 40 UNIT in Dextrose 5% in Water Inj 98 ML IV.CONT SCH ×2 (22:39)
[2017-12-17] MEDS: Sodium Bicarbonate 8.4% Inj 150 MEQ in Dextrose 5% in Water Inj 850 ML IV.CONT SCH ×2 (23:09)
[2017-12-17] MEDS: Hydrocortisone Sod Succinate 100 MG Vial IV.PUSH SCH (23:11)
[2017-12-18] MEDS: Sod Chloride 0.9% Inj 1,000 ML IV.CONT SCH ×3 (00:12→17:26)
[2017-12-18] MEDS: Oral Hygiene Kit OROPHARYNG SCH ×4 (00:29→17:25)
[2017-12-18] MEDS: Chlorhexidine Gluconate 2% 1 Pack (2 Cloths) TOPICAL SCH (03:47)
[2017-12-18] MEDS ORDERED: Chlorhexidine Gluconate 2% 1 Pack (2 Cloths) TOPICAL PRN (04:00)
[2017-12-18] MEDS: Midazolam 50 MG/50 ML Inj 50 MG/50 ML BAG IV.CONT PRN ×2 (04:28→17:30)
[2017-12-18 04:39] LABS: ABG Base Excess -8.4 mmol/L (-2-2); ABG PCO2 43 mmHg (38-42); ABG PO2 209 mmHG (61-120)
[2017-12-18] MEDS: Heparin - SQ 10,000 UNITS/ML Vial SQ SCH ×3 (05:00→21:43)
[2017-12-18] MEDS: Hydrocortisone Sod Succinate 100 MG Vial IV.PUSH SCH ×3 (05:00→21:42)
[2017-12-18] MEDS: Vancomycin Inj 1,250 MG in Sodium Chlor 0.9% Inj 250 ML IV.SIG SCH (05:00)
[2017-12-18 05:14] LABS: Baso % (Auto) 0.2 % (0.0-2.0); Eos % (Auto) 0.3 % (0.0-4.0); Hematocrit 25.7 % (35.0-46.0); Hemoglobin 8.7 gm/dL (11.6-15.3); Lymph # (Auto) 0.5 th/mm3 (1.0-4.8); Lymph % (Auto) 5.3 % (9.0-44.0); Mean Corpuscular HGB Conc 33.8 % (32.0-36.0); Mean Corpuscular Hemoglobin 32.8 pg (27.0-34.0); Mean Corpuscular Volume 97.1 fL (80.0-100.0); Mean Platelet Volume 9.4 fL (7.0-11.0); Mono # (Auto) 0.4 th/mm3 (0.0-0.9); Mono % (Auto) 4.1 % (0.0-8.0); Neut # (Auto) 8.3 th/mm3 (1.8-7.7); Neut % (Auto) 90.1 % (16.0-70.0); Platelet Count 244 th/mm3 (150-450); Red Blood Count 2.64 mil/mm3 (4.00-5.30); Red Cell Distribution Width 15.4 % (11.6-17.2); White Blood Count 9.2 th/mm3 (4.0-11.0)
[2017-12-18 05:18] LABS: Anion Gap 9 meq/L (5-15); Blood Urea Nitrogen 21 mg/dL (7-18); Calcium 6.4 mg/dL (8.5-10.1); Carbon Dioxide 21.8 meq/L (21.0-32.0); Chloride 112 meq/L (98-107); Creatine Kinase 712 U/L (26-192); Glomerular Filtration Rate Greater Than 89 mL/min (>89); Glucose,Random 213 mg/dL (74-106); Magnesium 1.6 mg/dL (1.5-2.5); Phosphorus 2.7 mg/dL (2.5-4.9); Potassium 3.6 meq/L (3.5-5.1); Sodium 143 meq/L (136-145); Troponin I 0.14 ng/mL (0.02-0.05)
[2017-12-18 05:35] LABS: CKMB Percent 0.8 % (0.0-4.0); Calcium-Albumin Corrected 7.9 mg/dL (8.5-10.1); Creatine Kinase MB 5.5 ng/mL (0.5-3.6); Total Protein 4.1 g/dL (6.4-8.2)
[2017-12-18] MEDS ORDERED: Calcium Chloride Inj 1 GM in Sodium Chlor 0.9% Inj 100 ML IV.SIG ONE (05:43)
--- NOTE | 2017-12-18 06:08 | P.CONID ---
History of Present Illness Service: ID Consult date: 12/17/17 Requesting Physician: Sim Garces Reason for Consult: enterovirus, C.diff an d severe PNA Primary Care Provider: UNKNOWN History of Present Illness: delayed entry seen around 1800 on Dec 17 full note to follow Pt is sedated, int'd on vent and is unable to provide history 62 yo with multiple med problems She was originally admitted on 11/23 with a diagnosis of C.diff colitis, found to have Norovirus. discharged on 12/11 at that time on PO vancomycin, but came back on 12/13 with altered mental status and hypoglycemia, again discharged on 12/15. She was mildly fatigued on 12/16 according to her and asked to wait another day before traveling back to her home in [place]. The am of admission she was unarousable and her called 911. She was intubated upon arrival to ER. CT chest/abd/pelvis demonstrates right pneumothorax, densely consolidated right lower lobe, bilateral pulmonary infiltrates, bowel wall thickening R sided CT was placed for pneumothorax Pt is on pressors On vent, with FiO2 90% RN reported that pt had 1 formed stool Review of Systems unobtainable due to endotracheal tube, unobtainable due to mental status PMFSH - History History Provided By: Family Member, Medical Record, Advertising Account Executive / EMT - Medical History Medical History: Medical History (Last Reviewed 12/18/17 @ 06:04 by Rama Interiano MD) Chronic pain HTN (hypertension) Hyperlipidemia MDRO (multiple drug resistant organisms) resistance Onset Date: ~12/13/17 - Surgical History Surgical History: Surgical History (Last Reviewed 12/18/17 @ 06:05 by Rama Interiano MD) Previous back surgery - Family History Family History: Family History (Last Reviewed 12/18/17 @ 06:05 by Rama Interiano MD) Father Colon cancer - Social History I have reviewed the patient's Social History: Yes - Tobacco History Second Hand Smoke Exposure: Yes Smoking Status: Unknown if ever smoked Tobacco Type: Cigarettes Packs Per Day: 0.5 - Alcohol History How Often Do You Have a Drink Containing Alcohol: Unable to Obtain - Substance Use History Substance History: No History of Abuse - Travel History Recent Travel in the [facility] Within the Last 8 Weeks: No Recent Travel Out of the Country Within the Last 8 Weeks: No - Immunization History Tetanus Immunization: Unable to Assess Medications and Allergies Active Medications: Active Medications Albuterol (Duoneb Neb (Ender)) 1 ampul NEB Q6HR NEB [facility] Last Admin: 12/18/17 03:19 Dose: 1 ampul Albuterol (Duoneb Neb (Prn)) 1 ampul NEB Q2HR NEB PRN PRN Reason: WHEEZING Bisacodyl (Dulcolax Supp) 10 mg RECTAL DAILY PRN PRN Reason: if no BM in last 24h Chlorhexidine Gluconate (Peridex 0.12% Oral Kit) 15 ml OROPHARYNG BID@0800, 2000 [facility] Last Admin: 12/17/17 20:37 Dose: 15 ml Chlorhexidine Gluconate (Chlorhexidine 2% Cloth) 3 pack TOPICAL DAILY@0400 [facility] Stop: 12/23/17 03:59 Last Admin: 12/18/17 03:47 Dose: 3 pack Chlorhexidine Gluconate (Chlorhexidine 2% Cloth) 3 pack TOPICAL DAILY@0400 PRN PRN Reason: Extra cloth needed Stop: 12/23/17 03:59 Famotidine (Pepcid) 20 mg PO BID [facility] Last Admin: 12/17/17 20:38 Dose: Not Given Famotidine (Pepcid Pf Inj) 20 mg IV.PUSH Q12HR [facility] Last Admin: 12/17/17 20:36 Dose: 20 mg Haloperidol Lactate (Haldol Inj) 5 mg IV.PUSH Q1H PRN PRN Reason: AGITATION Heparin Sodium (Porcine) (Heparin Inj) 5,000 units SQ Q8HR [facility] Last Admin: 12/18/17 05:00 Dose: 5,000 units Hydrocortisone Sodium Succinate (Solucortef Inj) 100 mg IV.PUSH Q8HR [facility] Last Admin: 12/18/17 05:00 Dose: 100 mg Fentanyl (Fentanyl 10 Mcg/Ml Premix Drip) 2,500 mcg in 250 mls @ 5 mls/hr IV.SIG TITRATE PRN; Protocol PRN Reason: Per Protocol Last Admin: 12/17/17 22:39 Dose: 250 mcg/hr, 25 mls/hr Sodium Chloride (Ns Inj) 1,000 mls @ 125 mls/hr IV.CONT .Q8H [facility] Last Admin: 12/18/17 00:12 Dose: Not Given Midazolam HCl (Versed Inj) 50 mg in 50 mls @ 2 mls/hr IV.CONT TITRATE PRN; Protocol PRN Reason: Per Protocol Last Admin: 12/18/17 04:28 Dose: 6 mg/hr, 6 mls/hr Sodium Chloride (Ns Inj) 1,000 mls @ 0 mls/hr IV.SIG BOLUS [facility] Last Infusion: 12/17/17 11:00 Dose: Infused Metronidazole/Sodium Chloride (Flagyl 500 Mg Inj) 100 mls @ 100 mls/hr IV.SIG Q6HR [facility] Last Admin: 12/18/17 05:00 Dose: 100 mls/hr Cefepime HCl 1,000 mg/ Sodium (Chloride) 100 mls @ 200 mls/hr IV.SIG Q8H [facility] Last Infusion: 12/18/17 04:59 Dose: Infused Magnesium Sulfate 4 gm/ Sodium (Chloride) 100 mls @ 50 mls/hr IV.SIG UNSCH PRN PRN Reason: For Magnesium 0.9 - 1.1 mg/dL Magnesium Sulfate 2 gm/ Sodium (Chloride) 100 mls @ 50 mls/hr IV.SIG UNSCH PRN PRN Reason: For Magnesium 1.2 - 1.6 mg/dL Potassium Chloride (Kcl 40 Meq Premix Inj) 40 meq in 100 mls @ 25 mls/hr IV.SIG Q2H PRN PRN Reason: For Potassium 2.8 - 3.2 mEq/L Potassium Chloride (Kcl 20 Meq Premix Inj) 20 meq in 100 mls @ 50 mls/hr IV.SIG Q2H PRN PRN Reason: For Potassium 3.3 - 3.5 mEq/L Potassium Chloride (Kcl 40 Meq Premix Inj) 40 meq in 100 mls @ 25 mls/hr IV.SIG UNSCH PRN PRN Reason: For Potassium 3.3 - 3.5 mEq/L Potassium Chloride (Kcl 20 Meq Premix Inj) 20 meq in 100 mls @ 50 mls/hr IV.SIG Q2H PRN PRN Reason: For Potassium 2.8 - 3.2 mEq/L Potassium Phosphate 30 mmol/ (Sodium Chloride) 260 mls @ 42 mls/hr IV.SIG UNSCH PRN PRN Reason: SEE LABEL COMMENTS Sodium Phosphate 30 mmol/ (Sodium Chloride) 260 mls @ 42 mls/hr IV.SIG UNSCH PRN PRN Reason: For Phosphorus < 2.5 mg/dL Azithromycin 500 mg/ Sodium (Chloride) 250 mls @ 250 mls/hr IV.SIG Q24H [facility] Dextrose (D10w Inj) 1,000 mls @ 25 mls/hr IV.CONT .Q24H [facility] Last Admin: 12/17/17 16:47 Dose: 42 mls/hr Vancomycin HCl 1,250 mg/ (Sodium Chloride) 262.5 mls @ 250 mls/hr IV.SIG Q24H [facility] Last Admin: 12/18/17 05:00 Dose: 250 mls/hr Phenylephrine HCl 40 mg/ (Dextrose) 500 mls @ 37.5 mls/hr IV.CONT TITRATE PRN; Protocol PRN Reason: Per Protocol Last Admin: 12/17/17 23:21 Dose: 140 mcg/min, 105 mls/hr Norepinephrine Bitartrate 16 (mg/ Dextrose) 250 mls @ 1.87 mls/hr IV.CONT TITRATE PRN; Protocol PRN Reason: See Protocol Last Admin: 12/17/17 21:32 Dose: 13 mcg/min, 12.18 mls/hr Sodium Chloride (Ns Inj) 250 mls @ 0 mls/hr IV.SIG BOLUS ENDER Sodium Chloride (Ns Inj) 500 mls @ 0 mls/hr IV.SIG BOLUS ENDER Last Infusion: 12/17/17 22:00 Dose: Infused Vasopressin 40 unit/ Dextrose 100 mls @ 6 mls/hr IV.CONT CONT ENDER; Protocol Last Admin: 12/17/17 22:39 Dose: 0.04 units/min, 6 mls/hr Sodium Bicarbonate 150 meq/ (Dextrose) 1,000 mls @ 84 mls/hr IV.CONT .[id number] ENDER Last Admin: 12/17/17 23:09 Dose: 84 mls/hr Acetaminophen (Ofirmev Inj) 1,000 mg in 100 mls @ 400 mls/hr IV.SIG Q6H PRN PRN Reason: PAIN SCALE 1 TO 10 Calcium Chloride 1 gm/ Sodium (Chloride) 110 mls @ 110 mls/hr IV.SIG ONCE ONE Stop: 12/18/17 06:42 Lactulose (Lactulose Liq) 30 ml PO BID END[facility] Last Admin: 12/17/17 20:37 Dose: Not Given Lactulose (Lactulose Liq) 30 ml PO QID PRN PRN Reason: SEVERE CONSITIPATION Magnesium Oxide (Mag-Ox) 800 mg PO UNSCH PRN PRN Reason: For Magnesium 1.2 - 1.6 mg/dL Miscellaneous Information ([facility] Ordered Lab Info) 0 each OTHER ONCE ONE Stop: 12/20/17 05:46 Miscellaneous Medication () 1 each OROPHARYNG 0000,0400,1200,1600 [facility] Last Admin: 12/18/17 03:47 Dose: 1 each Ondansetron HCl (Zofran Inj) 4 mg IV.PUSH Q6H PRN PRN Reason: NAUSEA OR VOMITING Pharmacy Profile Note (Vancomycin Consult Pharmacy) 1 each OTHER UNSCH PRN PRN Reason: Pharmacy to dose Polyethylene Glycol (Miralax) 17 gm PO BID [facility] Last Admin: 12/17/17 20:37 Dose: Not Given Potassium Bicarb/Potassium Chloride (K-Lyte Cl Eff) 50 meq PO UNSCH PRN PRN Reason: For Potassium 3.3 - 3.5 mEq/L Potassium Phosphate (K-Phos Original) 2,000 mg PO Q4H PRN PRN Reason: Phosphorus Less Than 2.5 mg/dL Potassium Phosphate (K-Phos Original) 2,000 mg PO UNSCH PRN PRN Reason: SEE LABEL COMMENTS Pravastatin Sodium (Pravachol) 40 mg PO DAILY [facility] Quetiapine Fumarate (Seroquel) 25 mg PO HS [facility] Last Admin: 12/17/17 20:37 Dose: 25 mg Senna/Docusate Sodium (Kaylyn-Colace) 1 tab PO BID [facility] Last Admin: 12/17/17 20:37 Dose: 1 tab Sodium Chloride (Ns Flush) 2 ml IV.FLUSH UNSCH PRN PRN Reason: FLUSH AFTER USING IV ACCESS Terbutaline Sulfate (Brethine Inj) 1 mg SQ UNSCH PRN PRN Reason: For Extravasation Valproic Acid (Depakene) 500 mg PO TID [facility] Allergies Allergy/AdvReac Type Severity Reaction Status Date / Time No Known Allergies Allergy Verified 12/13/17 08:04 Home Medications Medication Instructions Recorded Confirmed Type lisinopril 30 mg PO DAILY 11/23/17 12/17/17 History pravastatin 40 mg PO DAILY 11/23/17 12/17/17 History tizanidine 4 mg PO DAILY 11/23/17 12/17/17 History Exam Vital signs: Vital Signs 12/17/17 07:54 12/17/17 07:55 12/17/17 07:59 Temperature Pulse Rate 134 H Respiratory Rate 24 14 Blood Pressure 107/55 L Pulse Oximetry 77 L 96 94 L 12/17/17 08:18 12/17/17 08:49 12/17/17 08:53 Temperature Pulse Rate 124 H 121 H Respiratory Rate 28 H 30 H Blood Pressure 115/71 90/50 L Pulse Oximetry 96 94 L 94 L 12/17/17 08:55 12/17/17 10:22 12/17/17 10:40 Temperature Pulse Rate 109 H Respiratory Rate 22 28 H Blood Pressure 88/59 L Pulse Oximetry 96 95 12/17/17 11:26 12/17/17 11:37 12/17/17 12:43 Temperature Pulse Rate 106 H 106 H Respiratory Rate 22 22 20 Blood Pressure 73/49 L 86/55 L Pulse Oximetry 95 93 L 96 12/17/17 13:15 12/17/17 14:00 12/17/17 15:00 Temperature 100.9 F H Pulse Rate 111 H 123 H Respiratory Rate 32 H 34 H Blood Pressure 64/34 L 105/61 Pulse Oximetry 96 95 12/17/17 16:00 12/17/17 17:00 12/17/17 18:00 Temperature 99.2 F Pulse Rate 109 H 119 H 99 H Respiratory Rate 25 H 25 H 25 H Blood Pressure 93/55 L 116/44 L 90/50 L Pulse Oximetry 12/17/17 19:00 12/17/17 20:00 12/17/17 20:40 Temperature 98.6 F Pulse Rate 87 87 129 H Respiratory Rate 25 H 25 H 30 H Blood Pressure Pulse Oximetry 97 96 94 L 12/17/17 21:00 12/17/17 22:00 12/17/17 23:00 Temperature Pulse Rate 133 H 126 H 116 H Respiratory Rate 30 H 32 H 25 H Blood Pressure Pulse Oximetry 95 95 98 12/17/17 23:53 12/18/17 00:00 12/18/17 01:00 Temperature 100.3 F H Pulse Rate 108 H 94 H Respiratory Rate 30 H 28 H 25 H Blood Pressure Pulse Oximetry 97 97 97 12/18/17 02:00 12/18/17 03:00 12/18/17 03:19 Temperature Pulse Rate 91 H 91 H 87 Respiratory Rate 25 H 25 H 26 H Blood Pressure Pulse Oximetry 96 98 98 12/18/17 04:00 Temperature 98.7 F Pulse Rate 86 Respiratory Rate 25 H Blood Pressure Pulse Oximetry 99 Intake & Output 12/17/17 12/17/17 12/18/17 06:59 18:59 06:59 Intake Total 4050 / 4050 2400 / 2400 Output Total 550 / 550 Balance 4050 / 4050 1850 / 1850 Weight 72.7 kg Intake: IV 4050 / 4050 2400 / 2400 D50W Syringe 50 ML @ 0 mls/hr . 50 / 50 ROUTE .STK-MED ONE Rx#:[id number] Versed Inj 50 mg In 50 ml @ 2 50 / 50 100 / 100 MG/HR 2 mls/hr IV.CONT TITRATE PRN Rx#:[id number] Neosynephrine Inj 40 MG In D5W 500 / 500 Inj 496 ML @ 50 MCG/MIN 37.5 mls/hr IV.CONT TITRATE PRN Rx#: [id number] NS Inj 1,000 ML @ 125 mls/hr IV 1000 / 1000 .CONT .Q8H ENDER Rx#:[id number] Alburx 5% Inj 500 ML @ 250 mls/ 500 / 500 hr IV.SIG STAT STA Rx#:[id number] Azithromycin Inj 500 MG In NS 250 / 250 Inj 250 ML @ 250 mls/hr IV.SIG ONCE ONE Rx#:[id number] Maxipime Inj 1,000 MG In NS Inj 100 / 100 200 / 200 100 ML @ 200 mls/hr IV.SIG Q8H [facility] Rx#:[id number] LR 1000 mL Inj 1,000 ML @ Wide 1000 / 1000 Open IV.SIG BOLUS ONE Rx#: [id number] Levophed-Dextrose 4 mg/250 ml 250 / 250 250 / 250 Drip 4 mg In 250 ml @ 2 MCG/MIN 7.5 mls/hr IV.SIG TITRATE PRN Rx#:[id number] Zosyn 3.375 GM Premix 50 ML @ 50 / 50 100 mls/hr IV.SIG ONCE ONE Rx#: [id number] NS Inj 1,000 ML @ Wide Open IV. 1000 / 1000 SIG BOLUS ENDER Rx#:[id number] NS Inj 500 ML @ Wide Open IV. 500 / 500 SIG BOLUS ENDER Rx#:[id number] Vancomycin Inj 1 gm In 200 ml @ 200 / 200 200 mls/hr IV.SIG ONCE ONE Rx# :[id number] fentaNYL 10 mcg/mL Premix Drip 250 / 250 2,500 mcg In 250 ml @ 50 MCG/HR 5 mls/hr IV.SIG TITRATE PRN Rx #:[id number] Flagyl 500 MG Inj 100 ML @ 100 100 / 100 100 / 100 mls/hr IV.SIG Q6HR END[facility] Rx#: [id number] Output: Urine Amount (Catheter) 250 / 250 Indwelling Urethral Catheter 250 / 250 Chest Tube Drainage 300 / 300 #1 Right Upper 300 / 300 Other: Bladder Irrigation Fluid - Amount Instilled Indwelling Urethral Catheter 0 Bladder Irrigation Fluid - Amount Drained Indwelling Urethral Catheter 300 Date of Last Bowel Movement 12/17/17 12/17/17 # Bowel Movements 1 Weight On Admission 72.7 kg - Constitutional obtunded - Routine HEENT Exam Head: Present: normocephalic, atraumatic Eye: Present: EOMI, PERRL. Absent: conjunctival icterus ENT: Present: mucous membranes moist, oropharynx clear - Routine Neck Exam Present: supple. Absent: JVD - Routine Chest/Breast/Axilla Exam Chest wall: Present: chest tube (R with cloudy fluid) - Routine Respiratory Exam Present: patient mechanically ventilated, decreased breath sounds (R), rhonchi - Routine Cardiovascular Exam Present: RRR, S1, S2. Absent: murmur, gallop, rubs - Routine Abdominal Exam Present: soft. Absent: tenderness, distended, organomegaly, mass - Routine Extremities Exam Present: edema (trace). Absent: cyanosis, clubbing, joint swelling - Routine Skin Exam Absent: cyanosis, warm (cold hands, feet), rash - Routine Neurological Exam sedated, not following commands Results - Labs CBC & Chem 7: 12/18/17 04:30 12/18/17 04:30 Labs: Laboratory Results - last 24 hr 12/17/17 12/17/17 12/17/17 08:10 08:10 08:10 WBC 21.2 H RBC 3.36 L Hgb 10.9 L Hct 34.5 L MCV 102.8 H MCH 32.3 MCHC 31.4 L RDW 16.5 Plt Count 368 MPV 9.4 Prelim Diff (Auto) Slide review pending Neut % (Auto) 83.1 H Lymph % (Auto) 7.3 L White % (Auto) 9.5 H Eos % (Auto) 0.0 Baso % (Auto) 0.1 Neut # (Auto) 17.6 H Lymph # (Auto) 1.6 White # (Auto) 2.0 H Eos # (Auto) 0.0 Baso # (Auto) 0.0 WBC Differential Manual diff final Seg Neuts % (Manual) 50 Band Neuts % (Manual) 30 H Lymphocytes % (Manual) 7 L Monocytes % (Manual) 5 Metamyelocytes % (Man) 6 H Myelocytes % (Man) 2 H Abs Neuts (Manual) 18.7 H Differential Comment . Toxic Granulation 1+ H Toxic Vacuolation Present H Platelet Estimate Normal Platelet Morphology Normal Haptoglobin PT 14.6 H INR 1.4 APTT 27.3 Puncture Site Patient Temperature O2 Saturation ABG pH ABG pCO2 ABG pO2 ABG HCO3 ABG O2 Content ABG Base Excess ABG Methemoglobin Pedro Pablo Test Hemoglobin Carboxyhemoglobin O2 Delivery Device Vent Setting Inspired O2 Critical Value Sodium 145 Potassium 5.4 H Chloride 117 H Carbon Dioxide 15.6 L Anion Gap 12 BUN 22 H Creatinine 1.55 H Estimated GFR 34 L POC Glucose Random Glucose 72 L Osmolality Lactic Acid Calcium 7.3 L* Prot Corrected Calcium 8.7 Phosphorus Magnesium Total Bilirubin 0.1 L GGT AST 62 H ALT 17 Alkaline Phosphatase 71 Ammonia Lactate Dehydrogenase Total Creatine Kinase 902 H CK-MB (CK-2) 9.5 H CK-MB (CK-2) % 1.1 Troponin I 0.09 H B-Natriuretic Peptide Total Protein 4.6 L Albumin 1.6 L Prealbumin TSH 0.402 Urine Color Urine Clarity Urine pH Ur Specific [place] Urine Protein Urine Glucose (UA) Urine Ketones Urine Occult Blood Urine Nitrate Urine Bilirubin Urine Urobilinogen Ur Leukocyte Esterase Urine RBC Urine WBC Ur Squamous Epith Cells Amorphous Sediment Hyaline Casts Urine Mucus Micro UA Comment Ur Microscopic Review Urine Culture Comments Urine Eosinophils Urine Osmolality Ur Random Creatinine Ur Random Sodium Pleural RBC Pleural Nuc Cells Pleural Neutrophils Pleural Lymphocytes Pleural Monocytes Pleural Mesothelial Pleural Other Cells Pleural Total Protein Pleural LDH Pleural Glucose Nasal Screen MRSA (PCR) Salicylates Urine Opiates Screen Acetaminophen Ur Barbiturates Screen Ur Amphetamines Screen U Benzodiazepines Scrn Urine Cocaine Screen U Cannabinoids Screen Serum Alcohol Less than 3 HIV 1&2 Ab/P24 Ag 4thGn 12/17/17 12/17/17 12/17/17 08:10 08:10 08:40 WBC RBC Hgb Hct MCV MCH MCHC RDW Plt Count MPV Prelim Diff (Auto) Neut % (Auto) Lymph % (Auto) White % (Auto) Eos % (Auto) Baso % (Auto) Neut # (Auto) Lymph # (Auto) White # (Auto) Eos # (Auto) Baso # (Auto) WBC Differential Seg Neuts % (Manual) Band Neuts % (Manual) Lymphocytes % (Manual) Monocytes % (Manual) Metamyelocytes % (Man) Myelocytes % (Man) Abs Neuts (Manual) Differential Comment Toxic Granulation Toxic Vacuolation Platelet Estimate Platelet Morphology Haptoglobin PT INR APTT Puncture Site Patient Temperature O2 Saturation ABG pH ABG pCO2 ABG pO2 ABG HCO3 ABG O2 Content ABG Base Excess ABG Methemoglobin [place] Test Hemoglobin Carboxyhemoglobin O2 Delivery Device Vent Setting Inspired O2 Critical Value Sodium Potassium Chloride Carbon Dioxide Anion Gap BUN Creatinine Estimated GFR POC Glucose Random Glucose Osmolality Lactic Acid 6.0 H* Calcium Prot Corrected Calcium Phosphorus Magnesium Total Bilirubin GGT AST ALT Alkaline Phosphatase Ammonia Lactate Dehydrogenase Total Creatine Kinase CK-MB (CK-2) CK-MB (CK-2) % Troponin I B-Natriuretic Peptide Total Protein Albumin Prealbumin TSH Urine Color Urine Clarity Urine pH Ur Specific [place] Urine Protein Urine Glucose (UA) Urine Ketones Urine Occult Blood Urine Nitrate Urine Bilirubin Urine Urobilinogen Ur Leukocyte Esterase Urine RBC Urine WBC Ur Squamous Epith Cells Amorphous Sediment Hyaline Casts Urine Mucus Micro UA Comment Ur Microscopic Review Urine Culture Comments Urine Eosinophils Urine Osmolality Ur Random Creatinine Ur Random Sodium Pleural RBC Pleural Nuc Cells Pleural Neutrophils Pleural Lymphocytes Pleural Monocytes Pleural Mesothelial Pleural Other Cells Pleural Total Protein Pleural LDH Pleural Glucose Nasal Screen MRSA (PCR) Salicylates Less than 1.7 L Urine Opiates Screen Acetaminophen Less than 2.0 L Ur Barbiturates Screen Ur Amphetamines Screen U Benzodiazepines Scrn Urine Cocaine Screen U Cannabinoids Screen Serum Alcohol HIV 1&2 Ab/P24 Ag 4thGn 12/17/17 12/17/17 12/17/17 08:40 08:55 08:55 WBC RBC Hgb Hct MCV MCH MCHC RDW Plt Count MPV Prelim Diff (Auto) Neut % (Auto) Lymph % (Auto) White % (Auto) Eos % (Auto) Baso % (Auto) Neut # (Auto) Lymph # (Auto) White # (Auto) Eos # (Auto) Baso # (Auto) WBC Differential Seg Neuts % (Manual) Band Neuts % (Manual) Lymphocytes % (Manual) Monocytes % (Manual) Metamyelocytes % (Man) Myelocytes % (Man) Abs Neuts (Manual) Differential Comment Toxic Granulation Toxic Vacuolation Platelet Estimate Platelet Morphology Haptoglobin PT INR APTT Puncture Site Right radial Patient Temperature 98.6 O2 Saturation 88 L* ABG pH 7.25 L* ABG pCO2 33 L ABG pO2 61 ABG HCO3 14 L* ABG O2 Content 12.4 ABG Base Excess -11.9 L ABG Methemoglobin 0.9 Pedro [place] Test Present Hemoglobin 10.0 L Carboxyhemoglobin 1.0 O2 Delivery Device Ventilator Vent Setting A/c 14/550/peep5 Inspired O2 100 Critical Value Yes Sodium Potassium Chloride Carbon Dioxide Anion Gap BUN Creatinine Estimated GFR POC Glucose Random Glucose Osmolality Lactic Acid Calcium Prot Corrected Calcium Phosphorus Magnesium Total Bilirubin GGT AST ALT Alkaline Phosphatase Ammonia Lactate Dehydrogenase Total Creatine Kinase CK-MB (CK-2) CK-MB (CK-2) % Troponin I B-Natriuretic Peptide Total Protein Albumin Prealbumin TSH Urine Color Vee Urine Clarity Cloudy H Urine pH 5.0 Ur Specific [place] 1.023 Urine Protein 30 H Urine Glucose (UA) Negative Urine Ketones Trace H Urine Occult Blood Negative Urine Nitrate Negative Urine Bilirubin Negative Urine Urobilinogen Less than 2 Ur Leukocyte Esterase Negative Urine RBC 1 Urine WBC 3 Ur Squamous Epith Cells 1 Amorphous Sediment Few H Hyaline Casts 11 Urine Mucus Few H Micro UA Comment Cath-culture not ind Ur Microscopic Review Not Reportable Urine Culture Comments Cath-cult not ind Urine Eosinophils Urine Osmolality Ur Random Creatinine Ur Random Sodium Pleural RBC Pleural Nuc Cells Pleural Neutrophils Pleural Lymphocytes Pleural Monocytes Pleural Mesothelial Pleural Other Cells Pleural Total Protein Pleural LDH Pleural Glucose Nasal Screen MRSA (PCR) Salicylates Urine Opiates Screen Pos H Acetaminophen Ur Barbiturates Screen Neg Ur Amphetamines Screen Neg U Benzodiazepines Scrn Neg Urine Cocaine Screen Neg U Cannabinoids Screen Neg Serum Alcohol HIV 1&2 Ab/P24 Ag 4thGn 12/17/17 12/17/17 12/17/17 10:19 11:14 11:15 WBC RBC Hgb Hct MCV MCH MCHC RDW Plt Count MPV Prelim Diff (Auto) Neut % (Auto) Lymph % (Auto) White % (Auto) Eos % (Auto) Baso % (Auto) Neut # (Auto) Lymph # (Auto) White # (Auto) Eos # (Auto) Baso # (Auto) WBC Differential Seg Neuts % (Manual) Band Neuts % (Manual) Lymphocytes % (Manual) Monocytes % (Manual) Metamyelocytes % (Man) Myelocytes % (Man) Abs Neuts (Manual) Differential Comment Toxic Granulation Toxic Vacuolation Platelet Estimate Platelet Morphology Haptoglobin Cancelled PT INR APTT Puncture Site Right radial Patient Temperature 98.6 O2 Saturation 89 L* ABG pH 7.26 L* ABG pCO2 33 L ABG pO2 63 ABG HCO3 14 L* ABG O2 Content 12.2 ABG Base Excess -11.6 L ABG Methemoglobin 0.6 [place] Test Present Hemoglobin 9.7 L Carboxyhemoglobin 0.8 O2 Delivery Device Ventilator Vent Setting Prvc/ac Inspired O2 100 Critical Value Yes Sodium Potassium Chloride Carbon Dioxide Anion Gap BUN Creatinine Estimated GFR POC Glucose 117 H Random Glucose Osmolality Lactic Acid Calcium Prot Corrected Calcium Phosphorus Magnesium Total Bilirubin GGT AST ALT Alkaline Phosphatase Ammonia Lactate Dehydrogenase 480 H Total Creatine Kinase CK-MB (CK-2) CK-MB (CK-2) % Troponin I B-Natriuretic Peptide Total Protein Albumin Prealbumin TSH Urine Color Urine Clarity Urine pH Ur Specific [place] Urine Protein Urine Glucose (UA) Urine Ketones Urine Occult Blood Urine Nitrate Urine Bilirubin Urine Urobilinogen Ur Leukocyte Esterase Urine RBC Urine WBC Ur Squamous Epith Cells Amorphous Sediment Hyaline Casts Urine Mucus Micro UA Comment Ur Microscopic Review Urine Culture Comments Urine Eosinophils Urine Osmolality Ur Random Creatinine Ur Random Sodium Pleural RBC Pleural Nuc Cells Pleural Neutrophils Pleural Lymphocytes Pleural Monocytes Pleural Mesothelial Pleural Other Cells Pleural Total Protein Pleural LDH Pleural Glucose Nasal Screen MRSA (PCR) Salicylates Urine Opiates Screen Acetaminophen Ur Barbiturates Screen Ur Amphetamines Screen U Benzodiazepines Scrn Urine Cocaine Screen U Cannabinoids Screen Serum Alcohol HIV 1&2 Ab/P24 Ag 4thGn 12/17/17 12/17/17 12/17/17 11:15 11:35 11:35 WBC RBC Hgb Hct MCV MCH MCHC RDW Plt Count MPV Prelim Diff (Auto) Neut % (Auto) Lymph % (Auto) White % (Auto) Eos % (Auto) Baso % (Auto) Neut # (Auto) Lymph # (Auto) White # (Auto) Eos # (Auto) Baso # (Auto) WBC Differential Seg Neuts % (Manual) Band Neuts % (Manual) Lymphocytes % (Manual) Monocytes % (Manual) Metamyelocytes % (Man) Myelocytes % (Man) Abs Neuts (Manual) Differential Comment Toxic Granulation Toxic Vacuolation Platelet Estimate Platelet Morphology Haptoglobin PT INR APTT Puncture Site Patient Temperature O2 Saturation ABG pH ABG pCO2 ABG pO2 ABG HCO3 ABG O2 Content ABG Base Excess ABG Methemoglobin [place] Test Hemoglobin Carboxyhemoglobin O2 Delivery Device Vent Setting Inspired O2 Critical Value Sodium Potassium Chloride Carbon Dioxide Anion Gap BUN Creatinine Estimated GFR POC Glucose Random Glucose Osmolality 304 H Lactic Acid 4.6 H* Calcium Prot Corrected Calcium Phosphorus Magnesium Total Bilirubin GGT AST ALT Alkaline Phosphatase Ammonia Lactate Dehydrogenase Total Creatine Kinase 1093 H CK-MB (CK-2) 10 H CK-MB (CK-2) % 0.9 Troponin I B-Natriuretic Peptide 375 H Total Protein Albumin Prealbumin TSH Urine Color Urine Clarity Urine pH Ur Specific [place] Urine Protein Urine Glucose (UA) Urine Ketones Urine Occult Blood Urine Nitrate Urine Bilirubin Urine Urobilinogen Ur Leukocyte Esterase Urine RBC Urine WBC Ur Squamous Epith Cells Amorphous Sediment Hyaline Casts Urine Mucus Micro UA Comment Ur Microscopic Review Urine Culture Comments Urine Eosinophils Urine Osmolality Ur Random Creatinine Ur Random Sodium Pleural RBC Pleural Nuc Cells Pleural Neutrophils Pleural Lymphocytes Pleural Monocytes Pleural Mesothelial Pleural Other Cells Pleural Total Protein Pleural LDH Pleural Glucose Nasal Screen MRSA (PCR) Salicylates Urine Opiates Screen Acetaminophen Ur Barbiturates Screen Ur Amphetamines Screen U Benzodiazepines Scrn Urine Cocaine Screen U Cannabinoids Screen Serum Alcohol HIV 1&2 Ab/P24 Ag 4thGn 12/17/17 12/17/17 12/17/17 11:35 11:35 13:54 WBC RBC Hgb Hct MCV MCH MCHC RDW Plt Count MPV Prelim Diff (Auto) Neut % (Auto) Lymph % (Auto) White % (Auto) Eos % (Auto) Baso % (Auto) Neut # (Auto) Lymph # (Auto) White # (Auto) Eos # (Auto) Baso # (Auto) WBC Differential Seg Neuts % (Manual) Band Neuts % (Manual) Lymphocytes % (Manual) Monocytes % (Manual) Metamyelocytes % (Man) Myelocytes % (Man) Abs Neuts (Manual) Differential Comment Toxic Granulation Toxic Vacuolation Platelet Estimate Platelet Morphology Haptoglobin 375 H PT INR APTT Puncture Site Patient Temperature O2 Saturation ABG pH ABG pCO2 ABG pO2 ABG HCO3 ABG O2 Content ABG Base Excess ABG Methemoglobin [place] Test Hemoglobin Carboxyhemoglobin O2 Delivery Device Vent Setting Inspired O2 Critical Value Sodium Potassium Chloride Carbon Dioxide Anion Gap BUN Creatinine Estimated GFR POC Glucose Random Glucose Osmolality Lactic Acid Calcium Prot Corrected Calcium Phosphorus Magnesium Total Bilirubin GGT AST ALT Alkaline Phosphatase Ammonia Lactate Dehydrogenase Total Creatine Kinase CK-MB (CK-2) CK-MB (CK-2) % Troponin I B-Natriuretic Peptide Total Protein Albumin Prealbumin 9 L TSH Urine Color Urine Clarity Urine pH Ur Specific [place] Urine Protein Urine Glucose (UA) Urine Ketones Urine Occult Blood Urine Nitrate Urine Bilirubin Urine Urobilinogen Ur Leukocyte Esterase Urine RBC Urine WBC Ur Squamous Epith Cells Amorphous Sediment Hyaline Casts Urine Mucus Micro UA Comment Ur Microscopic Review Urine Culture Comments Urine Eosinophils Urine Osmolality Ur Random Creatinine 187 Ur Random Sodium Pleural RBC Pleural Nuc Cells Pleural Neutrophils Pleural Lymphocytes Pleural Monocytes Pleural Mesothelial Pleural Other Cells Pleural Total Protein Pleural LDH Pleural Glucose Nasal Screen MRSA (PCR) Salicylates Urine Opiates Screen Acetaminophen Ur Barbiturates Screen Ur Amphetamines Screen U Benzodiazepines Scrn Urine Cocaine Screen U Cannabinoids Screen Serum Alcohol HIV 1&2 Ab/P24 Ag 4thGn Nonreactive 12/17/17 12/17/17 12/17/17 13:54 13:54 13:54 WBC RBC Hgb Hct MCV MCH MCHC RDW Plt Count MPV Prelim Diff (Auto) Neut % (Auto) Lymph % (Auto) White % (Auto) Eos % (Auto) Baso % (Auto) Neut # (Auto) Lymph # (Auto) White # (Auto) Eos # (Auto) Baso # (Auto) WBC Differential Seg Neuts % (Manual) Band Neuts % (Manual) Lymphocytes % (Manual) Monocytes % (Manual) Metamyelocytes % (Man) Myelocytes % (Man) Abs Neuts (Manual) Differential Comment Toxic Granulation Toxic Vacuolation Platelet Estimate Platelet Morphology Haptoglobin PT INR APTT Puncture Site Patient Temperature O2 Saturation ABG pH ABG pCO2 ABG pO2 ABG HCO3 ABG O2 Content ABG Base Excess ABG Methemoglobin [place] Test Hemoglobin Carboxyhemoglobin O2 Delivery Device Vent Setting Inspired O2 Critical Value Sodium Potassium Chloride Carbon Dioxide Anion Gap BUN Creatinine Estimated GFR POC Glucose Random Glucose Osmolality Lactic Acid Calcium Prot Corrected Calcium Phosphorus Magnesium Total Bilirubin GGT AST ALT Alkaline Phosphatase Ammonia Lactate Dehydrogenase Total Creatine Kinase CK-MB (CK-2) CK-MB (CK-2) % Troponin I B-Natriuretic Peptide Total Protein Albumin Prealbumin TSH Urine Color Urine Clarity Urine pH Ur Specific [place] Urine Protein Urine Glucose (UA) Urine Ketones Urine Occult Blood Urine Nitrate Urine Bilirubin Urine Urobilinogen Ur Leukocyte Esterase Urine RBC Urine WBC Ur Squamous Epith Cells Amorphous Sediment Hyaline Casts Urine Mucus Micro UA Comment Ur Microscopic Review Urine Culture Comments Urine Eosinophils None seen Urine Osmolality 462 Ur Random Creatinine Ur Random Sodium 21 Pleural RBC Pleural Nuc Cells Pleural Neutrophils Pleural Lymphocytes Pleural Monocytes Pleural Mesothelial Pleural Other Cells Pleural Total Protein Pleural LDH Pleural Glucose Nasal Screen MRSA (PCR) Salicylates Urine Opiates Screen Acetaminophen Ur Barbiturates Screen Ur Amphetamines Screen U Benzodiazepines Scrn Urine Cocaine Screen U Cannabinoids Screen Serum Alcohol HIV 1&2 Ab/P24 Ag 4thGn 12/17/17 12/17/17 12/17/17 15:41 15:41 15:41 WBC RBC Hgb Hct MCV MCH MCHC RDW Plt Count MPV Prelim Diff (Auto) Neut % (Auto) Lymph % (Auto) White % (Auto) Eos % (Auto) Baso % (Auto) Neut # (Auto) Lymph # (Auto) White # (Auto) Eos # (Auto) Baso # (Auto) WBC Differential Seg Neuts % (Manual) Band Neuts % (Manual) Lymphocytes % (Manual) Monocytes % (Manual) Metamyelocytes % (Man) Myelocytes % (Man) Abs Neuts (Manual) Differential Comment Toxic Granulation Toxic Vacuolation Platelet Estimate Platelet Morphology Haptoglobin PT INR APTT Puncture Site Patient Temperature O2 Saturation ABG pH ABG pCO2 ABG pO2 ABG HCO3 ABG O2 Content ABG Base Excess ABG Methemoglobin [place] Test Hemoglobin Carboxyhemoglobin O2 Delivery Device Vent Setting Inspired O2 Critical Value Sodium Potassium Chloride Carbon Dioxide Anion Gap BUN Creatinine Estimated GFR POC Glucose Random Glucose Osmolality Lactic Acid Calcium Prot Corrected Calcium Phosphorus Magnesium Total Bilirubin GGT 7 AST ALT Alkaline Phosphatase Ammonia 70 H Lactate Dehydrogenase Total Creatine Kinase 1177 H CK-MB (CK-2) 10.5 H CK-MB (CK-2) % 0.9 Troponin I 0.14 H B-Natriuretic Peptide Total Protein Albumin Prealbumin TSH Urine Color Urine Clarity Urine pH Ur Specific [place] Urine Protein Urine Glucose (UA) Urine Ketones Urine Occult Blood Urine Nitrate Urine Bilirubin Urine Urobilinogen Ur Leukocyte Esterase Urine RBC Urine WBC Ur Squamous Epith Cells Amorphous Sediment Hyaline Casts Urine Mucus Micro UA Comment Ur Microscopic Review Urine Culture Comments Urine Eosinophils Urine Osmolality Ur Random Creatinine Ur Random Sodium Pleural RBC Pleural Nuc Cells Pleural Neutrophils Pleural Lymphocytes Pleural Monocytes Pleural Mesothelial Pleural Other Cells Pleural Total Protein Pleural LDH Pleural Glucose Nasal Screen MRSA (PCR) Salicylates Urine Opiates Screen Acetaminophen Ur Barbiturates Screen Ur Amphetamines Screen U Benzodiazepines Scrn Urine Cocaine Screen U Cannabinoids Screen Serum Alcohol HIV 1&2 Ab/P24 Ag 4thGn 12/17/17 12/17/17 12/17/17 15:55 15:55 15:55 WBC RBC Hgb Hct MCV MCH MCHC RDW Plt Count MPV Prelim Diff (Auto) Neut % (Auto) Lymph % (Auto) White % (Auto) Eos % (Auto) Baso % (Auto) Neut # (Auto) Lymph # (Auto) White # (Auto) Eos # (Auto) Baso # (Auto) WBC Differential Seg Neuts % (Manual) Band Neuts % (Manual) Lymphocytes % (Manual) Monocytes % (Manual) Metamyelocytes % (Man) Myelocytes % (Man) Abs Neuts (Manual) Differential Comment Toxic Granulation Toxic Vacuolation Platelet Estimate Platelet Morphology Haptoglobin PT INR APTT Puncture Site Patient Temperature O2 Saturation ABG pH ABG pCO2 ABG pO2 ABG HCO3 ABG O2 Content ABG Base Excess ABG Methemoglobin [place] Test Hemoglobin Carboxyhemoglobin O2 Delivery Device Vent Setting Inspired O2 Critical Value Sodium Potassium Chloride Carbon Dioxide Anion Gap BUN Creatinine Estimated GFR POC Glucose Random Glucose Osmolality Lactic Acid Calcium Prot Corrected Calcium Phosphorus Magnesium Total Bilirubin GGT AST ALT Alkaline Phosphatase Ammonia Lactate Dehydrogenase Total Creatine Kinase CK-MB (CK-2) CK-MB (CK-2) % Troponin I B-Natriuretic Peptide Total Protein Albumin Prealbumin TSH Urine Color Urine Clarity Urine pH Ur Specific [place] Urine Protein Urine Glucose (UA) Urine Ketones Urine Occult Blood Urine Nitrate Urine Bilirubin Urine Urobilinogen Ur Leukocyte Esterase Urine RBC Urine WBC Ur Squamous Epith Cells Amorphous Sediment Hyaline Casts Urine Mucus Micro UA Comment Ur Microscopic Review Urine Culture Comments Urine Eosinophils Urine Osmolality Ur Random Creatinine Ur [place] [address] H Pleural Nuc Cells 4795 H Pleural Neutrophils 42 Pleural Lymphocytes 17 Pleural Monocytes 3 Pleural Mesothelial 3 Pleural Other Cells 35 Pleural Total Protein 1.8 Pleural LDH 3681 Cancelled Pleural Glucose 85 Nasal Screen MRSA (PCR) Salicylates Urine Opiates Screen Acetaminophen Ur Barbiturates Screen Ur Amphetamines Screen U Benzodiazepines Scrn Urine Cocaine Screen U Cannabinoids Screen Serum Alcohol HIV 1&2 Ab/P24 Ag 4thGn 12/17/17 12/17/17 12/17/17 15:55 17:00 20:08 WBC RBC Hgb Hct MCV MCH MCHC RDW Plt Count MPV Prelim Diff (Auto) Neut % (Auto) Lymph % (Auto) White % (Auto) Eos % (Auto) Baso % (Auto) Neut # (Auto) Lymph # (Auto) White # (Auto) Eos # (Auto) Baso # (Auto) WBC Differential Seg Neuts % (Manual) Band Neuts % (Manual) Lymphocytes % (Manual) Monocytes % (Manual) Metamyelocytes % (Man) Myelocytes % (Man) Abs Neuts (Manual) Differential Comment Toxic Granulation Toxic Vacuolation Platelet Estimate Platelet Morphology Haptoglobin PT INR APTT Puncture Site Patient Temperature O2 Saturation ABG pH ABG pCO2 ABG pO2 ABG HCO3 ABG O2 Content ABG Base Excess ABG Methemoglobin [place] Test Hemoglobin Carboxyhemoglobin O2 Delivery Device Vent Setting Inspired O2 Critical Value Sodium Potassium Chloride Carbon Dioxide Anion Gap BUN Creatinine Estimated GFR POC Glucose 106 Random Glucose Osmolality Lactic Acid Calcium Prot Corrected Calcium Phosphorus Magnesium Total Bilirubin GGT AST ALT Alkaline Phosphatase Ammonia Lactate Dehydrogenase Total Creatine Kinase CK-MB (CK-2) CK-MB (CK-2) % Troponin I B-Natriuretic Peptide Total Protein Albumin Prealbumin TSH Urine Color Urine Clarity Urine pH Ur Specific [place] Urine Protein Urine Glucose (UA) Urine Ketones Urine Occult Blood Urine Nitrate Urine Bilirubin Urine Urobilinogen Ur Leukocyte Esterase Urine RBC Urine WBC Ur Squamous Epith Cells Amorphous Sediment Hyaline Casts Urine Mucus Micro UA Comment Ur Microscopic Review Urine Culture Comments Urine Eosinophils Urine Osmolality Ur Random Creatinine Ur Random Sodium Pleural RBC Pleural Nuc Cells Pleural Neutrophils Pleural Lymphocytes Pleural Monocytes Pleural Mesothelial Pleural Other Cells Pleural Total Protein Cancelled Pleural LDH Pleural Glucose Nasal Screen MRSA (PCR) Not detected Salicylates Urine Opiates Screen Acetaminophen Ur Barbiturates Screen Ur Amphetamines Screen U Benzodiazepines Scrn Urine Cocaine Screen U Cannabinoids Screen Serum Alcohol HIV 1&2 Ab/P24 Ag 4thGn 12/17/17 12/17/17 12/18/17 21:58 22:17 00:19 WBC RBC Hgb Hct MCV MCH MCHC RDW Plt Count MPV Prelim Diff (Auto) Neut % (Auto) Lymph % (Auto) White % (Auto) Eos % (Auto) Baso % (Auto) Neut # (Auto) Lymph # (Auto) White # (Auto) Eos # (Auto) Baso # (Auto) WBC Differential Seg Neuts % (Manual) Band Neuts % (Manual) Lymphocytes % (Manual) Monocytes % (Manual) Metamyelocytes % (Man) Myelocytes % (Man) Abs Neuts (Manual) Differential Comment Toxic Granulation Toxic Vacuolation Platelet Estimate Platelet Morphology Haptoglobin PT INR APTT Puncture Site Art line Patient Temperature 98.6 O2 Saturation 97 ABG pH 7.14 L* ABG pCO2 47 H ABG pO2 276 H ABG HCO3 15 L* ABG O2 Content 12.2 ABG Base Excess -12.0 L ABG Methemoglobin 1.8 [place] Test Present Hemoglobin 8.4 L Carboxyhemoglobin 0.0 O2 Delivery Device Ventilator Vent Setting See comments Inspired O2 100 Critical Value Yes Sodium Potassium Chloride Carbon Dioxide Anion Gap BUN Creatinine Estimated GFR POC Glucose 101 103 Random Glucose Osmolality Lactic Acid Calcium Prot Corrected Calcium Phosphorus Magnesium Total Bilirubin GGT AST ALT Alkaline Phosphatase Ammonia Lactate Dehydrogenase Total Creatine Kinase CK-MB (CK-2) CK-MB (CK-2) % Troponin I B-Natriuretic Peptide Total Protein Albumin Prealbumin TSH Urine Color Urine Clarity Urine pH Ur Specific [place] Urine Protein Urine Glucose (UA) Urine Ketones Urine Occult Blood Urine Nitrate Urine Bilirubin Urine Urobilinogen Ur Leukocyte Esterase Urine RBC Urine WBC Ur Squamous Epith Cells Amorphous Sediment Hyaline Casts Urine Mucus Micro UA Comment Ur Microscopic Review Urine Culture Comments Urine Eosinophils Urine Osmolality Ur Random Creatinine Ur Random Sodium Pleural RBC Pleural Nuc Cells Pleural Neutrophils Pleural Lymphocytes Pleural Monocytes Pleural Mesothelial Pleural Other Cells Pleural Total Protein Pleural LDH Pleural Glucose Nasal Screen MRSA (PCR) Salicylates Urine Opiates Screen Acetaminophen Ur Barbiturates Screen Ur Amphetamines Screen U Benzodiazepines Scrn Urine Cocaine Screen U Cannabinoids Screen Serum Alcohol HIV 1&2 Ab/P24 Ag 4thGn 12/18/17 12/18/17 12/18/17 01:57 03:53 03:54 WBC RBC Hgb Hct MCV MCH MCHC RDW Plt Count MPV Prelim Diff (Auto) Neut % (Auto) Lymph % (Auto) White % (Auto) Eos % (Auto) Baso % (Auto) Neut # (Auto) Lymph # (Auto) White # (Auto) Eos # (Auto) Baso # (Auto) WBC Differential Seg Neuts % (Manual) Band Neuts % (Manual) Lymphocytes % (Manual) Monocytes % (Manual) Metamyelocytes % (Man) Myelocytes % (Man) Abs Neuts (Manual) Differential Comment Toxic Granulation Toxic Vacuolation Platelet Estimate Platelet Morphology Haptoglobin PT INR APTT Puncture Site Patient Temperature O2 Saturation ABG pH ABG pCO2 ABG pO2 ABG HCO3 ABG O2 Content ABG Base Excess ABG Methemoglobin [place] Test Hemoglobin Carboxyhemoglobin O2 Delivery Device Vent Setting Inspired O2 Critical Value Sodium Potassium Chloride Carbon Dioxide Anion Gap BUN Creatinine Estimated GFR POC Glucose 133 H 186 H 159 H Random Glucose Osmolality Lactic Acid Calcium Prot Corrected Calcium Phosphorus Magnesium Total Bilirubin GGT AST ALT Alkaline Phosphatase Ammonia Lactate Dehydrogenase Total Creatine Kinase CK-MB (CK-2) CK-MB (CK-2) % Troponin I B-Natriuretic Peptide Total Protein Albumin Prealbumin TSH Urine Color Urine Clarity Urine pH Ur Specific [place] Urine Protein Urine Glucose (UA) Urine Ketones Urine Occult Blood Urine Nitrate Urine Bilirubin Urine Urobilinogen Ur Leukocyte Esterase Urine RBC Urine WBC Ur Squamous Epith Cells Amorphous Sediment Hyaline Casts Urine Mucus Micro UA Comment Ur Microscopic Review Urine Culture Comments Urine Eosinophils Urine Osmolality Ur Random Creatinine Ur Random Sodium Pleural RBC Pleural Nuc Cells Pleural Neutrophils Pleural Lymphocytes Pleural Monocytes Pleural Mesothelial Pleural Other Cells Pleural Total Protein Pleural LDH Pleural Glucose Nasal Screen MRSA (PCR) Salicylates Urine Opiates Screen Acetaminophen Ur Barbiturates Screen Ur Amphetamines Screen U Benzodiazepines Scrn Urine Cocaine Screen U Cannabinoids Screen Serum Alcohol HIV 1&2 Ab/P24 Ag 4thGn 12/18/17 12/18/17 12/18/17 04:20 04:30 04:30 WBC 9.2 D RBC 2.64 L Hgb 8.7 L D Hct 25.7 L MCV 97.1 D MCH 32.8 MCHC 33.8 RDW 15.4 Plt Count 244 D MPV 9.4 Prelim Diff (Auto) Slide review pending Neut % (Auto) 90.1 H Lymph % (Auto) 5.3 L White % (Auto) 4.1 Eos % (Auto) 0.3 Baso % (Auto) 0.2 Neut # (Auto) 8.3 H Lymph # (Auto) 0.5 L White # (Auto) 0.4 Eos # (Auto) 0.0 Baso # (Auto) 0.0 WBC Differential Seg Neuts % (Manual) Band Neuts % (Manual) Lymphocytes % (Manual) Monocytes % (Manual) Metamyelocytes % (Man) Myelocytes % (Man) Abs Neuts (Manual) Differential Comment . Toxic Granulation Toxic Vacuolation Platelet Estimate Platelet Morphology Haptoglobin PT INR APTT Puncture Site Art line Patient Temperature 98.6 O2 Saturation 97 ABG pH 7.24 L* ABG pCO2 43 H ABG pO2 209 H ABG HCO3 18 L ABG O2 Content 12.0 ABG Base Excess -8.4 L ABG Methemoglobin 1.6 [place] Test Hemoglobin 8.4 L Carboxyhemoglobin 0.3 O2 Delivery Device Ventilator Vent Setting Comment Inspired O2 100 Critical Value Yes Sodium 143 Potassium 3.6 D Chloride 112 H Carbon Dioxide 21.8 Anion Gap 9 BUN 21 H Creatinine 0.63 Estimated GFR Greater than 89 POC Glucose Random Glucose 213 H D Osmolality Lactic Acid Calcium 6.4 L* D Prot Corrected Calcium 7.9 L Phosphorus 2.7 Magnesium 1.6 Total Bilirubin GGT AST ALT Alkaline Phosphatase Ammonia Lactate Dehydrogenase Total Creatine Kinase 712 H CK-MB (CK-2) 5.5 H CK-MB (CK-2) % 0.8 Troponin I 0.14 H B-Natriuretic Peptide Total Protein 4.1 L Albumin Prealbumin TSH Urine Color Urine Clarity Urine pH Ur Specific [place] Urine Protein Urine Glucose (UA) Urine Ketones Urine Occult Blood Urine Nitrate Urine Bilirubin Urine Urobilinogen Ur Leukocyte Esterase Urine RBC Urine WBC Ur Squamous Epith Cells Amorphous Sediment Hyaline Casts Urine Mucus Micro UA Comment Ur Microscopic Review Urine Culture Comments Urine Eosinophils Urine Osmolality Ur Random Creatinine Ur Random Sodium Pleural RBC Pleural Nuc Cells Pleural Neutrophils Pleural Lymphocytes Pleural Monocytes Pleural Mesothelial Pleural Other Cells Pleural Total Protein Pleural LDH Pleural Glucose Nasal Screen MRSA (PCR) Salicylates Urine Opiates Screen Acetaminophen Ur Barbiturates Screen Ur Amphetamines Screen U Benzodiazepines Scrn Urine Cocaine Screen U Cannabinoids Screen Serum Alcohol HIV 1&2 Ab/P24 Ag 4thGn 12/18/17 04:30 WBC RBC Hgb Hct MCV MCH MCHC RDW Plt Count MPV Prelim Diff (Auto) Neut % (Auto) Lymph % (Auto) White % (Auto) Eos % (Auto) Baso % (Auto) Neut # (Auto) Lymph # (Auto) White # (Auto) Eos # (Auto) Baso # (Auto) WBC Differential Seg Neuts % (Manual) Band Neuts % (Manual) Lymphocytes % (Manual) Monocytes % (Manual) Metamyelocytes % (Man) Myelocytes % (Man) Abs Neuts (Manual) Differential Comment Toxic Granulation Toxic Vacuolation Platelet Estimate Platelet Morphology Haptoglobin PT INR APTT Puncture Site Patient Temperature O2 Saturation ABG pH ABG pCO2 ABG pO2 ABG HCO3 ABG O2 Content ABG Base Excess ABG Methemoglobin [place] Test Hemoglobin Carboxyhemoglobin O2 Delivery Device Vent Setting Inspired O2 Critical Value Sodium Potassium Chloride Carbon Dioxide Anion Gap BUN Creatinine Estimated GFR POC Glucose Random Glucose Osmolality Lactic Acid Calcium Prot Corrected Calcium Phosphorus Magnesium Total Bilirubin GGT AST ALT Alkaline Phosphatase Ammonia Lactate Dehydrogenase Total Creatine Kinase CK-MB (CK-2) CK-MB (CK-2) % Troponin I B-Natriuretic Peptide 402 H Total Protein Albumin Prealbumin TSH Urine Color Urine Clarity Urine pH Ur Specific [place] Urine Protein Urine Glucose (UA) Urine Ketones Urine Occult Blood Urine Nitrate Urine Bilirubin Urine Urobilinogen Ur Leukocyte Esterase Urine RBC Urine WBC Ur Squamous Epith Cells Amorphous Sediment Hyaline Casts Urine Mucus Micro UA Comment Ur Microscopic Review Urine Culture Comments Urine Eosinophils Urine Osmolality Ur Random Creatinine Ur Random Sodium Pleural RBC Pleural Nuc Cells Pleural Neutrophils Pleural Lymphocytes Pleural Monocytes Pleural Mesothelial Pleural Other Cells Pleural Total Protein Pleural LDH Pleural Glucose Nasal Screen MRSA (PCR) Salicylates Urine Opiates Screen Acetaminophen Ur Barbiturates Screen Ur Amphetamines Screen U Benzodiazepines Scrn Urine Cocaine Screen U Cannabinoids Screen Serum Alcohol HIV 1&2 Ab/P24 Ag 4thGn - Imaging Impressions Chest X-Ray 12/17/17 00:00 CONCLUSION: 1. Persistent bilateral airspace infiltrates. 2. Interval placement of a right-sided thoracostomy tube. There does appear to be an apical lateral 1.5 cm right pneumothorax. 3. Extensive subcutaneous and deep tissue emphysematous changes about the right hemithorax. Chest X-Ray 12/17/17 00:00 CONCLUSION: Right-sided chest tube with slight increase in right pneumothorax compared with earlier exam. Slight increase in left basilar airspace disease since earlier exam. Slight worsening of subcutaneous air with extension into the left hemithorax and neck. Chest X-Ray 12/17/17 08:02 CONCLUSION: Satisfactory support line and tube positioning. Bilateral infiltrates. Head CT 12/17/17 08:02 CONCLUSION: 1. 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 2. Otherwise negative. . Abdomen/Pelvis CT 12/17/17 10:45 CONCLUSION: 1. Moderate diffuse colonic wall thickening exaggerated by lack of colonic distention. This may be due to low-protein state/edema. However, differential considerations include infectious and inflammatory colitis. 2. Moderate-sized right hydropneumothorax with airspace disease in the lung bases as described on chest CT. 3. Additional ancillary findings, as above. Chest CT 12/17/17 10:45 CONCLUSION: 1. Small to moderate-sized right-sided hydropneumothorax. 2. Right lower lobe consolidation with air bronchograms. Differential considerations include aspiration and lobar pneumonia. 3. Patchy diffuse groundglass opacities most prominently in the upper lobes bilaterally. Differential considerations include bronchopneumonia, atypical infection and atypical pulmonary edema. 4. Mild mediastinal adenopathy, likely reactive. Chest X-Ray 12/17/17 22:00 CONCLUSION: Placement of second right-sided chest tube with near complete resolution of previous right pneumothorax. Assessment and Plan - Plan R complicated fluid collection pneumohydrothorax -on vent 90%FiO2/10 PEEP Acute VDRF recent pseudomembranous colitis - stool now formed, bowell thickening on CT sepsis hemodynamically onstable, on pressors abx : azithro, cefepime, vanco cont flagyl fu clx P A/P fu clx cont current abx
--- NOTE | 2017-12-18 06:15 | XR ---
EXAM DATE: 12/18/2017 5:50 AM EDT AGE/SEX: 62 years / Female INDICATIONS: Shortness of breath CLINICAL DATA: This is the patient's subsequent encounter. Patient reports that signs and symptoms h ave been present for 1 week and indicates a pain score of Nonresponsive. MEDICAL/SURGICAL HISTORY: Hypertension. None. [place] [facility] [place] [facility] [place]. . FINDINGS: ET tube tip well above the neli. Gastric tube tip and side-port project within the stomach. 2 right chest drainage tubes stable in position. Extensive percutaneous emphysema about the left and right c hest wall extending into the supraclavicular region stable from prior. Patchy areas of consolidation in the medial right lung and in the left upper and lower lung is stable in severity and distribution. CONCLUSION: 1. Stable bilateral multifocal consolidative infiltrates. 2. 2 right chest drainage tubes in place; no pneumothorax seen. Electronically signed by: Michael Hicks MD 12/18/2017 6:14 AM EDT
[2017-12-18 08:05] LABS: Lymphocytes 5 % (9-44); Metamyelocytes 14 % (0-1); Monocytes 6 % (0-8); Myelocytes 3 % (0-0); Platelet Estimate Normal (Normal); Platelet Morphology Normal (Normal); Promyelocyte 1 % (0-0); Toxic Granulation 1+; Toxic Vacuolation Present
--- NOTE | 2017-12-18 08:07 | P.PNCC ---
Subjective Subjective Remarks/Hospital Course: Hospital Course: This is a 62yF who was originally admitted on 11/23 with a diagnosis of colitis, found to have enterovirus. discharged on 12/11 at that time on PO vancomycin, but came back on 12/13 with altered mental status and hypoglycemia, again discharged on 12/15. She was mildly fatigued on 12/16 according to her and asked to wait another day before traveling back to her home in [place]. This morning, she was unarousable and her called 911. She was intubated upon arrival to the emergency department for agonal respirations. CXR demonstrates bilateral multifocal pneumonia. She is febrile, hypotensive. CVL placed in the ER and vasopressors initiated after 2L bolus crystalloid. CT chest/abd/pelvis demonstrates right pneumothorax, densely consolidated right lower lobe, bilateral pulmonary infiltrates, evidence of ongoing colitis. Patient continue to be unstable. Immediately after identifying ptx on CT scan, I emergently placed right chest tube with some improvements in hemodynamics, but ongoing distributive shock persists. I placed arterial line. No additional information available from the patient, ROS unobtainable. In discussion with the , she has not had any new complaints in the 48h she was home, and other than mild fatigue last night, no new complaints. She was able to walk to the bathroom without assistance yesterday. Subjective: 12/18: shock remains. now on levophed, vasopressin, phenylephrine. second chest tube placed overnight for worsening SQ air. acidosis remains and is severe. Objective Vital Signs / I&O: Vital Signs 12/17/17 08:18 12/17/17 08:49 12/17/17 08:53 Temperature Pulse Rate 124 H 121 H Respiratory Rate 28 H 30 H Blood Pressure 115/71 90/50 L Pulse Oximetry 96 94 L 94 L 12/17/17 08:55 12/17/17 10:22 12/17/17 10:40 Temperature Pulse Rate 109 H Respiratory Rate 22 28 H Blood Pressure 88/59 L Pulse Oximetry 96 95 12/17/17 11:26 12/17/17 11:37 12/17/17 12:43 Temperature Pulse Rate 106 H 106 H Respiratory Rate 22 22 20 Blood Pressure 73/49 L 86/55 L Pulse Oximetry 95 93 L 96 12/17/17 13:15 12/17/17 14:00 12/17/17 15:00 Temperature 38.3 C H Pulse Rate 111 H 123 H Respiratory Rate 32 H 34 H Blood Pressure 64/34 L 105/61 Pulse Oximetry 96 95 12/17/17 16:00 12/17/17 17:00 12/17/17 18:00 Temperature 37.3 C Pulse Rate 109 H 119 H 99 H Respiratory Rate 25 H 25 H 25 H Blood Pressure 93/55 L 116/44 L 90/50 L Pulse Oximetry 12/17/17 19:00 12/17/17 20:00 12/17/17 20:40 Temperature 37.0 C Pulse Rate 87 87 129 H Respiratory Rate 25 H 25 H 30 H Blood Pressure Pulse Oximetry 97 96 94 L 12/17/17 21:00 12/17/17 22:00 12/17/17 23:00 Temperature Pulse Rate 133 H 126 H 116 H Respiratory Rate 30 H 32 H 25 H Blood Pressure Pulse Oximetry 95 95 98 12/17/17 23:53 12/18/17 00:00 12/18/17 01:00 Temperature 37.9 C H Pulse Rate 108 H 94 H Respiratory Rate 30 H 28 H 25 H Blood Pressure Pulse Oximetry 97 97 97 12/18/17 02:00 12/18/17 03:00 12/18/17 03:19 Temperature Pulse Rate 91 H 91 H 87 Respiratory Rate 25 H 25 H 26 H Blood Pressure Pulse Oximetry 96 98 98 12/18/17 04:00 12/18/17 05:00 12/18/17 06:00 Temperature 37.1 C Pulse Rate 86 87 88 Respiratory Rate 25 H 24 24 Blood Pressure Pulse Oximetry 99 97 96 Intake & Output 12/17/17 12/18/17 12/18/17 18:59 06:59 18:59 Intake Total 4050 / 4050 2822.5 / 2822.5 Output Total 1620 / 1620 Balance 4050 / 4050 1202.5 / 1202.5 Weight 72.7 kg 76.2 kg Intake: IV 4050 / 4050 2762.5 / 2762.5 D50W Syringe 50 ML @ 0 mls/hr . 50 / 50 ROUTE .STK-MED ONE Rx#:[id number] Versed Inj 50 mg In 50 ml @ 2 50 / 50 100 / 100 MG/HR 2 mls/hr IV.CONT TITRATE PRN Rx#:[id number] Neosynephrine Inj 40 MG In D5W 500 / 500 Inj 496 ML @ 50 MCG/MIN 37.5 mls/hr IV.CONT TITRATE PRN Rx#: [id number] NS Inj 1,000 ML @ 125 mls/hr IV 1000 / 1000 .CONT .Q8H BENJAMIN Rx#:[id number] Alburx 5% Inj 500 ML @ 250 mls/ 500 / 500 hr IV.SIG STAT STA Rx#:[id number] Azithromycin Inj 500 MG In NS 250 / 250 Inj 250 ML @ 250 mls/hr IV.SIG ONCE ONE Rx#:[id number] Maxipime Inj 1,000 MG In NS Inj 100 / 100 200 / 200 100 ML @ 200 mls/hr IV.SIG Q8H BENJAMIN Rx#:[id number] LR 1000 mL Inj 1,000 ML @ Wide 1000 / 1000 Open IV.SIG BOLUS ONE Rx#: [id number] Levophed-Dextrose 4 mg/250 ml 250 / 250 250 / 250 Drip 4 mg In 250 ml @ 2 MCG/MIN 7.5 mls/hr IV.SIG TITRATE PRN Rx#:[id number] Zosyn 3.375 GM Premix 50 ML @ 50 / 50 100 mls/hr IV.SIG ONCE ONE Rx#: [id number] NS Inj 1,000 ML @ Wide Open IV. 1000 / 1000 SIG BOLUS BENJAMIN Rx#:[id number] NS Inj 500 ML @ Wide Open IV. 500 / 500 SIG BOLUS BENJAMIN Rx#:[id number] Vancomycin Inj 1 gm In 200 ml @ 200 / 200 200 mls/hr IV.SIG ONCE ONE Rx# :[id number] Vancomycin Inj 1,250 MG In NS 262.5 / 262.5 Inj 250 ML @ 250 mls/hr IV.SIG Q24H BENJAMIN Rx#:[id number] fentaNYL 10 mcg/mL Premix Drip 250 / 250 2,500 mcg In 250 ml @ 50 MCG/HR 5 mls/hr IV.SIG TITRATE PRN Rx #:[id number] Flagyl 500 MG Inj 100 ML @ 100 100 / 100 200 / 200 mls/hr IV.SIG Q6HR BENJAMIN Rx#: [id number] Tube Irrigant 60 / 60 Output: Urine 500 / 500 Urine Amount (Catheter) 250 / 250 Indwelling Urethral Catheter 250 / 250 Gastric Drainage 300 / 300 Oral 300 / 300 Chest Tube Drainage 570 / 570 #1 Right Upper 350 / 350 #2 Right 220 / 220 Other: Bladder Irrigation Fluid - Amount Instilled Indwelling Urethral Catheter 0 Bladder Irrigation Fluid - Amount Drained Indwelling Urethral Catheter 300 Date of Last Bowel Movement 12/17/17 12/17/17 # Bowel Movements 1 Weight On Admission 72.7 kg Result Diagrams: 12/18/17 04:30 12/18/17 04:30 Objective Remarks: GENERAL: middle-aged female, lying in bed, intubated, sedated, critically ill. HEENT: Normocephalic. Atraumatic. Pupils equal, round, reactive, conjugate. Mucous membranes are moist NECK: Trachea is midline. There is no JVD. CHEST: Equal chest rise. PRVC. 90% FiO2. Two right-sided chest tubes with 3+ air leak. Subcu air in the right chest wall has now improved some from yesterday. CARDIOVASCULAR: Tachycardic rate, regular rhythm. On norepinephrine, vasopressin and phenylephrine infusions. ABDOMEN: Soft, nontender, nondistended. No guarding. MUSCULOSKELETAL: Pulses 2+. No peripheral edema. NEUROLOGICAL: RASS -3. Withdraws to pain x4. Does not follow commands. Assessment and Plan - Assessment and Plan Plan: Assessment: 62yF with multiple recent admissions who now presents with acute and severe bilateral healthcare associated pneumonia, septic shock, acute hypoxic respiratory failure. This does have the appearance of an aspiration event/aspiration pneumonia, and she may have aspirated if she became altered again. She is very critically ill at this time with multiorgan failure. Organ function and shock worse today than yesterday. Plan by systems: Neurologic: Acute metabolic encephalopathy Hyperammonemia Possible hepatic encephalopathy Possible seizure disorder She has a history of elevated ammonia in the past and is 70 on 12/17. Continue Lactulose Unclear etiology of her hyperammonemia as she does not clinically appear to have severe end-stage liver disease: may be seizures? Frequent neurochecks Fentanyl and Versed for goal RASS -2 Avoid long-acting sedatives She was started on anticonvulsants and her initial admission 11/23. We will continue these. Head CT 12/17- for acute disease EEG today. Respiratory: Acute hypoxic and hypercarbic respiratory failure Acute severe bilateral multifocal healthcare associated pneumonia Possible aspiration pneumonia Spontaneous right-sided tension pneumothorax Subcutaneous Emphysema Status post emergent chest tube 12/17 and second emergent chest tube 12/17: To suction. Significant subcutaneous air now somewhat improving. if air leak does not improve, may need CT surgery consultation for apical blebectomy, however currently still in septic shock: will need to improve shock before any surgery considered. A.m. chest x-ray Vent bundle Head of bed elevated Nebs Wean FiO2 for goal SPO2 greater than 90% No weaning of mechanical ventilation until shock improves Cardiovascular: Septic shock- worsening Elevated troponin Type II NSTEMI secondary to demand ischemia Maintenance IV fluids Norepinephrine, vasopressin, phenylephrine for goal map greater than 65 Trend troponins. Will not anticoagulate. Unlikely to be ACS. Renal: Acute kidney injury Secondary to shock continue Read Frequent urine output monitoring Daily creatinine Additional IV fluids and maintenance fluids -- Strict I/Os FEN/GI: Acute intravascular volume depletion Acute protein calorie malnutritionmoderate Lactic acidosis Severe acute anion gap metabolic acidosis Severe colitis Enterovirus colitis C. difficile colitis Hyperammonemia Maintenance IV fluids Place orogastric tube to low intermittent wall suction N.p.o. while in shock ICU electrolyte protocol Daily BMP, magnesium, phosphorus Trend lactates Lactulose Heme/ID: C. difficile colitis Enterovirus colitis Septic shock Healthcare associated multifocal pneumonia Vancomycin with pharmacy dosing Cefepime 1 g IV every 8 hours Flagyl 500 mg IV every 6 hours Azithromycin 500 mg every 24 hours All cultures pending. Infectious disease consultation Endocrine: Acute hypoglycemia- resolving. Frequent glycemic checks wean off d10w today. Prophylaxis: GI Prophylaxis Pepcid IV DVT Prophylaxis -- SCDs Subcu heparin Lines: 12/17 femoral triple-lumen catheter 12/17 right radial arterial line 12/17 right 28 Colombian chest tube to suction 12/17 right 32 [place]ian chest tube to suction 12/17 Read Dispo: Remain in ICU. Very critically ill. This patient remains critically ill with one or more organ systems which are or may become a threat to life. I have spent in excess of 61 minutes discontinuously in the care and management of this patient. This time is exclusive of procedures, and includes, but is not limited to, evaluation of the patient, review of the medical record, discussions with family, consultants, nursing staff, or respiratory therapy, and documentation in the medical record.
[2017-12-18] MEDS: Polyethylene Glycol 3350 17 GM Packet PO SCH ×2 (10:43→21:44)
[2017-12-18] MEDS: Azithromycin Inj 500 MG in Sodium Chlor 0.9% Inj 250 ML IV.SIG SCH (10:44)
[2017-12-18] MEDS: Chlorhexidine 0.12% Oral Kit 15 ML UDC OROPHARYNG SCH ×2 (10:45→21:48)
[2017-12-18] MEDS: Sodium Bicarbonate 8.4% Inj 150 MEQ in Dextrose 5% in Water Inj 850 ML IV.CONT SCH ×2 (10:46)
[2017-12-18] MEDS: Famotidine PF Inj 20 MG/2 ML Vial IV.PUSH SCH ×2 (10:46→21:43)
[2017-12-18] MEDS: Famotidine 20 MG Tablet PO SCH ×2 (10:46→21:43)
[2017-12-18] MEDS: Senna/Docusate Sodium 8.6/50 MG Tablet PO SCH ×2 (10:46→21:43)
[2017-12-18 12:17] LABS: CKMB Percent 0.9 % (0.0-4.0); Creatine Kinase MB 4.6 ng/mL (0.5-3.6)
[2017-12-18] MEDS: Dextrose 10% in Water Inj 1,000 ML IV.CONT SCH (12:45)
[2017-12-18] MEDS: Vasopressin Inj 40 UNIT in Dextrose 5% in Water Inj 98 ML IV.CONT SCH ×2 (13:21)
[2017-12-18 13:32] LABS: ABG Base Excess -5.9 mmol/L (-2-2); ABG PCO2 50 mmHg (38-42); ABG PO2 89 mmHG (61-120)
--- NOTE | 2017-12-18 14:25 | ED ---
HPI General Chief Complaint: Altered Mental Status Stated Complaint: Medical Time Seen by Provider: 12/17/17 08:01 Source: family and EMS Mode of arrival: EMS Limitations: altered mental status History of Present Illness HPI narrative: Please see previous dictation. MD complaint: Reports altered mental status and decreased responsiveness Onset (ago): hour(s) Timing confirmed by: family member Severity: severe Consistency of symptoms: getting worse and constant Associated symptoms: Reports shortness of breath and weakness Treatments prior to arrival: Reports glucose and oxygen Related Data Home Medications Medication Instructions Recorded Confirmed lisinopril 30 mg PO DAILY 11/23/17 12/17/17 pravastatin 40 mg PO DAILY 11/23/17 12/17/17 tizanidine 4 mg PO DAILY 11/23/17 12/17/17 Previous Rx's Medication Instructions Recorded cyanocobalamin (vitamin B-12) 1,000 mcg IM Q7D #30 ml 12/08/17 dicyclomine 20 mg PO TID #30 tab 12/08/17 famotidine 20 mg PO BID #60 tab 12/08/17 multivitamin with folic acid 1 tab PO DAILY #30 tab 12/08/17 [Thera] quetiapine 25 mg PO HS #30 tab 12/08/17 valproic acid 500 mg PO TID #90 cap 12/08/17 vancomycin 500 mg PO QID 14 Days each 12/08/17 Lactobacillus acidophilus 500 mmu cells PO TID #90 cap 12/15/17 potassium chloride 10 meq PO BID #10 cap 12/15/17 Allergies Allergy/AdvReac Type Severity Reaction Status Date / Time No Known Allergies Allergy Verified 12/13/17 08:04 Review of Systems ROS Unobtainable ROS Unobtainable: unobtainable due to mental condition PMFSH Social History Social History Substance History: No History of Abuse Second Hand Smoke Exposure: Yes Smoking Status: Unknown if ever smoked Tobacco Type: Cigarettes Packs Per Day: 0.5 Cigarettes Per Day: 10.0 How Often Do You Have a Drink Containing Alcohol: Unable to Obtain Recent Travel in [facility] within the Last 8 Weeks: No Recent Out of Country Travel within the Last 8 Weeks: No Immunization History Tetanus Immunization: Unable to Assess Exam Narrative Exam Narrative: Please see previous dictation Course Initial Documented Vital Signs Pulse Rate 134 H 12/17/17 07:54 Respiratory Rate 24 12/17/17 07:54 Pulse Oximetry 77 L 12/17/17 07:54 Last Documented Vital Signs Temperature 98.7 F 12/18/17 04:00 Pulse Rate 87 12/18/17 10:00 Respiratory Rate 27 H 12/18/17 10:59 Blood Pressure 90/50 L 12/17/17 18:00 Pulse Oximetry 92 L 12/18/17 10:59 Procedures Central Line Placement Right Femoral: Time Out Performed: Yes Patient Placed on Monitor/Pulse Ox: Yes MD Prep: mask, gown and gloves Central Line Prep: Povidone-Iodine 1% and sterile drapes applied Ultrasound Used for Placement: Yes Central Line Lumen Inserted: triple Post Procedure: sutured in place, good blood return, all ports aspirated, flushed, capped and sterile dressing applied Patient Tolerated Procedure: well Complications: none Intubation Time Out Performed: Yes Sedative: etomidate Mg Given: 20 Paralytic: succinylcholine Mg Given: 100 Laryngoscope: fiber optic video scope Assist Device Used: fiber optic device ET Tube Size: 7.5 ET Tube Uncuffed: No Tube Secured Depth (cm): 23 Tube Secured Location: lips Tube Placement Confirmation: visualized tube passing through cords, equal breath sounds bilaterally, no breath sounds over epigastrium and confirmation by capnometry Patient Tolerated Procedure: well Intubation Complications: none Critical Care Time Critical Care Time: Yes Total Critical Care Time: 60 Attestation: Aggregate critical care time was 60 minutes. Time to perform other separately billable procedures was not included in the critical care time. My time did not include minutes spent treating any other patients simultaneously or on activities that did not directly contribute to the patient's treatment. The services I provided to this patient were to treat and/or prevent clinically significant deterioration that could result in: I provided critical care services requiring my management, as noted below: Chart data review, documentation time, medication orders and management, vital sign assessments/reviewing monitor data, ordering and reviewing lab tests, ordering and interpreting/reviewing x-rays and diagnostic studies, care of the patient and discussion of the patient with the admitting physicians. Medical Decision Making MDM Narrative Medical decision making narrative: Please see previous dictation Medical Screen Exam Complete: Yes Emergency Medical Condition: Yes Lab Data Result diagrams: 12/18/17 04:30 12/18/17 04:30 Lab Results 12/17/17 12/17/17 12/17/17 Range/Units 08:10 08:10 08:10 WBC 21.2 H (4.0-11.0) th/mm3 RBC 3.36 L (4.00-5.30) mil/mm3 Hgb 10.9 L (11.6-15.3) gm/dL Hct 34.5 L (35.0-46.0) % MCV 102.8 H (80.0-100.0) fL MCH 32.3 (27.0-34.0) pg MCHC 31.4 L (32.0-36.0) % RDW 16.5 (11.6-17.2) % Plt Count 368 (150-450) th/mm3 MPV 9.4 (7.0-11.0) fL Prelim Diff (Auto) Slide review pending Neut % (Auto) 83.1 H (16.0-70.0) % Lymph % (Auto) 7.3 L (9.0-44.0) % [place] % (Auto) 9.5 H (0.0-8.0) % Eos % (Auto) 0.0 (0.0-4.0) % Baso % (Auto) 0.1 (0.0-2.0) % Neut # (Auto) 17.6 H (1.8-7.7) th/mm3 Lymph # (Auto) 1.6 (1.0-4.8) th/mm3 [place] # (Auto) 2.0 H (0.0-0.9) th/mm3 Eos # (Auto) 0.0 (0.0-0.4) th/mm3 Baso # (Auto) 0.0 (0.0-0.2) th/mm3 WBC Differential Manual diff final Seg Neuts % (Manual) 50 (16-70) % Band Neuts % (Manual) 30 H (0-6) % Lymphocytes % (Manual) 7 L (9-44) % Monocytes % (Manual) 5 (0-8) % Metamyelocytes % (Man) 6 H (0-1) % Myelocytes % (Man) 2 H (0-0) % Promyelocytes % (Man) (0-0) % Abs Neuts (Manual) 18.7 H (1.8-7.7) th/mm3 Differential Comment . Toxic Granulation 1+ H (None) Toxic Vacuolation Present H (None) Platelet Estimate Normal (Normal) Platelet Morphology Normal (Normal) Haptoglobin PT 14.6 H (9.8-11.6) sec INR 1.4 Ratio APTT 27.3 (24.3-30.1) sec Puncture Site Patient Temperature O2 Saturation (90-100) % ABG pH (7.380-7.420) ABG pCO2 (38-42) mmHg ABG pO2 (61-120) mmHg ABG HCO3 (22-26) mmol/L ABG O2 Content (12.0-20.0) Vol % ABG Base Excess (-2-2) mmol/L ABG Methemoglobin (0-2) % [place] Test Hemoglobin (12.0-16.0) G/DL Carboxyhemoglobin (0-4) % O2 Delivery Device Vent Setting Inspired O2 % Critical Value Sodium 145 (136-145) meq/L Potassium 5.4 H (3.5-5.1) meq/L Chloride 117 H (98-107) meq/L Carbon Dioxide 15.6 L (21.0-32.0) meq/L Anion Gap 12 (5-15) meq/L BUN 22 H (7-18) mg/dL Creatinine 1.55 H (0.50-1.00) mg/dL Estimated GFR 34 L (>89) mL/min POC Glucose (68-110) mg/dl Random Glucose 72 L (74-106) mg/dL Osmolality (275-295) mosm/kg Lactic Acid (0.4-2.0) mmol/L Calcium 7.3 L* (8.5-10.1) mg/dL Prot Corrected Calcium 8.7 (8.5-10.1) mg/dL Phosphorus (2.5-4.9) mg/dL Magnesium (1.5-2.5) mg/dL Total Bilirubin 0.1 L (0.2-1.0) mg/dL GGT (5-55) U/L AST 62 H (15-37) U/L ALT 17 (10-53) U/L Alkaline Phosphatase 71 (45-117) U/L Ammonia (11-32) mcmol/L Lactate Dehydrogenase (84-246) U/L Total Creatine Kinase 902 H (26-192) U/L CK-MB (CK-2) 9.5 H (0.5-3.6) ng/mL CK-MB (CK-2) % 1.1 (0.0-4.0) % Troponin I 0.09 H (0.02-0.05) ng/mL B-Natriuretic Peptide (0-100) pg/mL Total Protein 4.6 L (6.4-8.2) g/dL Albumin 1.6 L (3.4-5.0) g/dL Prealbumin (20-40) mg/dL TSH 0.402 (0.358-3.740) uIU/mL Urine Color (Yellw/Straw) Urine Clarity (Clear) Urine pH (5.0-8.5) Ur Specific [place] (1.002-1.035) Urine Protein (Neg-Trace) mg/dL Urine Glucose (UA) (Negative) mg/dL Urine Ketones (Negative) mg/dL Urine Occult Blood (Negative) Urine Nitrate (Negative) Urine Bilirubin (Negative) Urine Urobilinogen (Less than 2) mg/dL Ur Leukocyte Esterase (Negative) Urine RBC (0-3) /hpf Urine WBC (0-5) /hpf Ur Squamous Epith Cells (0-5) /hpf Amorphous Sediment (None) /hpf Hyaline Casts (0-3) /lpf Urine Mucus (Occasional) /lpf Micro UA Comment Ur Microscopic Review Urine Culture Comments Urine Eosinophils (None Seen) /HPF Urine Osmolality (300-1300) mosm/kg Ur Random Creatinine (27-300) mg/dL Ur Random Sodium meq/L Pleural RBC (0-0) /mm3 Pleural Nuc Cells (0-10) /mm3 Pleural Neutrophils % Pleural Lymphocytes % Pleural Monocytes % Pleural Mesothelial % Pleural Other Cells % Pleural Total Protein gm/dL Pleural LDH U/L Pleural Glucose mg/dL Nasal Screen MRSA (PCR) (Negative) Salicylates (2.8-20.0) mg/dL Urine Opiates Screen (Neg) Acetaminophen (10.0-30.0) mcg/mL Ur Barbiturates Screen (Neg) Ur Amphetamines Screen (Neg) U Benzodiazepines Scrn (Neg) Urine Cocaine Screen (Neg) U Cannabinoids Screen (Neg) Serum Alcohol Less than 3 (0-5) mg/dL HIV 1&2 Ab/P24 Ag 4thGn (Nonreactive) 12/17/17 12/17/17 12/17/17 Range/Units 08:10 08:10 08:40 WBC (4.0-11.0) th/mm3 RBC (4.00-5.30) mil/mm3 Hgb (11.6-15.3) gm/dL Hct (35.0-46.0) % MCV (80.0-100.0) fL MCH (27.0-34.0) pg MCHC (32.0-36.0) % RDW (11.6-17.2) % Plt Count (150-450) th/mm3 MPV (7.0-11.0) fL Prelim Diff (Auto) Neut % (Auto) (16.0-70.0) % Lymph % (Auto) (9.0-44.0) % [place] % (Auto) (0.0-8.0) % Eos % (Auto) (0.0-4.0) % Baso % (Auto) (0.0-2.0) % Neut # (Auto) (1.8-7.7) th/mm3 Lymph # (Auto) (1.0-4.8) th/mm3 [place] # (Auto) (0.0-0.9) th/mm3 Eos # (Auto) (0.0-0.4) th/mm3 Baso # (Auto) (0.0-0.2) th/mm3 WBC Differential Seg Neuts % (Manual) (16-70) % Band Neuts % (Manual) (0-6) % Lymphocytes % (Manual) (9-44) % Monocytes % (Manual) (0-8) % Metamyelocytes % (Man) (0-1) % Myelocytes % (Man) (0-0) % Promyelocytes % (Man) (0-0) % Abs Neuts (Manual) (1.8-7.7) th/mm3 Differential Comment Toxic Granulation (None) Toxic Vacuolation (None) Platelet Estimate (Normal) Platelet Morphology (Normal) Haptoglobin PT (9.8-11.6) sec INR Ratio APTT (24.3-30.1) sec Puncture Site Patient Temperature O2 Saturation (90-100) % ABG pH (7.380-7.420) ABG pCO2 (38-42) mmHg ABG pO2 (61-120) mmHg ABG HCO3 (22-26) mmol/L ABG O2 Content (12.0-20.0) Vol % ABG Base Excess (-2-2) mmol/L ABG Methemoglobin (0-2) % [place] Test Hemoglobin (12.0-16.0) G/DL Carboxyhemoglobin (0-4) % O2 Delivery Device Vent Setting Inspired O2 % Critical Value Sodium (136-145) meq/L Potassium (3.5-5.1) meq/L Chloride (98-107) meq/L Carbon Dioxide (21.0-32.0) meq/L Anion Gap (5-15) meq/L BUN (7-18) mg/dL Creatinine (0.50-1.00) mg/dL Estimated GFR (>89) mL/min POC Glucose (68-110) mg/dl Random Glucose (74-106) mg/dL Osmolality (275-295) mosm/kg Lactic Acid 6.0 H* (0.4-2.0) mmol/L Calcium (8.5-10.1) mg/dL Prot Corrected Calcium (8.5-10.1) mg/dL Phosphorus (2.5-4.9) mg/dL Magnesium (1.5-2.5) mg/dL Total Bilirubin (0.2-1.0) mg/dL GGT (5-55) U/L AST (15-37) U/L ALT (10-53) U/L Alkaline Phosphatase (45-117) U/L Ammonia (11-32) mcmol/L Lactate Dehydrogenase (84-246) U/L Total Creatine Kinase (26-192) U/L CK-MB (CK-2) (0.5-3.6) ng/mL CK-MB (CK-2) % (0.0-4.0) % Troponin I (0.02-0.05) ng/mL B-Natriuretic Peptide (0-100) pg/mL Total Protein (6.4-8.2) g/dL Albumin (3.4-5.0) g/dL Prealbumin (20-40) mg/dL TSH (0.358-3.740) uIU/mL Urine Color (Yellw/Straw) Urine Clarity (Clear) Urine pH (5.0-8.5) Ur Specific [place] (1.002-1.035) Urine Protein (Neg-Trace) mg/dL Urine Glucose (UA) (Negative) mg/dL Urine Ketones (Negative) mg/dL Urine Occult Blood (Negative) Urine Nitrate (Negative) Urine Bilirubin (Negative) Urine Urobilinogen (Less than 2) mg/dL Ur Leukocyte Esterase (Negative) Urine RBC (0-3) /hpf Urine WBC (0-5) /hpf Ur Squamous Epith Cells (0-5) /hpf Amorphous Sediment (None) /hpf Hyaline Casts (0-3) /lpf Urine Mucus (Occasional) /lpf Micro UA Comment Ur Microscopic Review Urine Culture Comments Urine Eosinophils (None Seen) /HPF Urine Osmolality (300-1300) mosm/kg Ur Random Creatinine (27-300) mg/dL Ur Random Sodium meq/L Pleural RBC (0-0) /mm3 Pleural Nuc Cells (0-10) /mm3 Pleural Neutrophils % Pleural Lymphocytes % Pleural Monocytes % Pleural Mesothelial % Pleural Other Cells % Pleural Total Protein gm/dL Pleural LDH U/L Pleural Glucose mg/dL Nasal Screen MRSA (PCR) (Negative) Salicylates Less than 1.7 L (2.8-20.0) mg/dL Urine Opiates Screen (Neg) Acetaminophen Less than 2.0 L (10.0-30.0) mcg/mL Ur Barbiturates Screen (Neg) Ur Amphetamines Screen (Neg) U Benzodiazepines Scrn (Neg) Urine Cocaine Screen (Neg) U Cannabinoids Screen (Neg) Serum Alcohol (0-5) mg/dL HIV 1&2 Ab/P24 Ag 4thGn (Nonreactive) 12/17/17 12/17/17 12/17/17 Range/Units 08:40 08:55 08:55 WBC (4.0-11.0) th/mm3 RBC (4.00-5.30) mil/mm3 Hgb (11.6-15.3) gm/dL Hct (35.0-46.0) % MCV (80.0-100.0) fL MCH (27.0-34.0) pg MCHC (32.0-36.0) % RDW (11.6-17.2) % Plt Count (150-450) th/mm3 MPV (7.0-11.0) fL Prelim Diff (Auto) Neut % (Auto) (16.0-70.0) % Lymph % (Auto) (9.0-44.0) % [place] % (Auto) (0.0-8.0) % Eos % (Auto) (0.0-4.0) % Baso % (Auto) (0.0-2.0) % Neut # (Auto) (1.8-7.7) th/mm3 Lymph # (Auto) (1.0-4.8) th/mm3 [place] # (Auto) (0.0-0.9) th/mm3 Eos # (Auto) (0.0-0.4) th/mm3 Baso # (Auto) (0.0-0.2) th/mm3 WBC Differential Seg Neuts % (Manual) (16-70) % Band Neuts % (Manual) (0-6) % Lymphocytes % (Manual) (9-44) % Monocytes % (Manual) (0-8) % Metamyelocytes % (Man) (0-1) % Myelocytes % (Man) (0-0) % Promyelocytes % (Man) (0-0) % Abs Neuts (Manual) (1.8-7.7) th/mm3 Differential Comment Toxic Granulation (None) Toxic Vacuolation (None) Platelet Estimate (Normal) Platelet Morphology (Normal) Haptoglobin PT (9.8-11.6) sec INR Ratio APTT (24.3-30.1) sec Puncture Site Right radial Patient Temperature 98.6 O2 Saturation 88 L* (90-100) % ABG pH 7.25 L* (7.380-7.420) ABG pCO2 33 L (38-42) mmHg ABG pO2 61 (61-120) mmHg ABG HCO3 14 L* (22-26) mmol/L ABG O2 Content 12.4 (12.0-20.0) Vol % ABG Base Excess -11.9 L (-2-2) mmol/L ABG Methemoglobin 0.9 (0-2) % [place] Test Present Hemoglobin 10.0 L (12.0-16.0) G/DL Carboxyhemoglobin 1.0 (0-4) % O2 Delivery Device Ventilator Vent Setting A/c 14/550/[id number] Inspired O2 100 % Critical Value Yes Sodium (136-145) meq/L Potassium (3.5-5.1) meq/L Chloride (98-107) meq/L Carbon Dioxide (21.0-32.0) meq/L Anion Gap (5-15) meq/L BUN (7-18) mg/dL Creatinine (0.50-1.00) mg/dL Estimated GFR (>89) mL/min POC Glucose (68-110) mg/dl Random Glucose (74-106) mg/dL Osmolality (275-295) mosm/kg Lactic Acid (0.4-2.0) mmol/L Calcium (8.5-10.1) mg/dL Prot Corrected Calcium (8.5-10.1) mg/dL Phosphorus (2.5-4.9) mg/dL Magnesium (1.5-2.5) mg/dL Total Bilirubin (0.2-1.0) mg/dL GGT (5-55) U/L AST (15-37) U/L ALT (10-53) U/L Alkaline Phosphatase (45-117) U/L Ammonia (11-32) mcmol/L Lactate Dehydrogenase (84-246) U/L Total Creatine Kinase (26-192) U/L CK-MB (CK-2) (0.5-3.6) ng/mL CK-MB (CK-2) % (0.0-4.0) % Troponin I (0.02-0.05) ng/mL B-Natriuretic Peptide (0-100) pg/mL Total Protein (6.4-8.2) g/dL Albumin (3.4-5.0) g/dL Prealbumin (20-40) mg/dL TSH (0.358-3.740) uIU/mL Urine Color [place] (Yellw/Straw) Urine Clarity Cloudy H (Clear) Urine pH 5.0 (5.0-8.5) Ur Specific [place] 1.023 (1.002-1.035) Urine Protein 30 H (Neg-Trace) mg/dL Urine Glucose (UA) Negative (Negative) mg/dL Urine Ketones Trace H (Negative) mg/dL Urine Occult Blood Negative (Negative) Urine Nitrate Negative (Negative) Urine Bilirubin Negative (Negative) Urine Urobilinogen Less than 2 (Less than 2) mg/dL Ur Leukocyte Esterase Negative (Negative) Urine RBC 1 (0-3) /hpf Urine WBC 3 (0-5) /hpf Ur Squamous Epith Cells 1 (0-5) /hpf Amorphous Sediment Few H (None) /hpf Hyaline Casts 11 (0-3) /lpf Urine Mucus Few H (Occasional) /lpf Micro UA Comment Cath-culture not ind Ur Microscopic Review Not Reportable Urine Culture Comments Cath-cult not ind Urine Eosinophils (None Seen) /HPF Urine Osmolality (300-1300) mosm/kg Ur Random Creatinine (27-300) mg/dL Ur Random Sodium meq/L Pleural RBC (0-0) /mm3 Pleural Nuc Cells (0-10) /mm3 Pleural Neutrophils % Pleural Lymphocytes % Pleural Monocytes % Pleural Mesothelial % Pleural Other Cells % Pleural Total Protein gm/dL Pleural LDH U/L Pleural Glucose mg/dL Nasal Screen MRSA (PCR) (Negative) Salicylates (2.8-20.0) mg/dL Urine Opiates Screen Pos H (Neg) Acetaminophen (10.0-30.0) mcg/mL Ur Barbiturates Screen Neg (Neg) Ur Amphetamines Screen Neg (Neg) U Benzodiazepines Scrn Neg (Neg) Urine Cocaine Screen Neg (Neg) U Cannabinoids Screen Neg (Neg) Serum Alcohol (0-5) mg/dL HIV 1&2 Ab/P24 Ag 4thGn (Nonreactive) 12/17/17 12/17/17 12/17/17 Range/Units 10:19 11:14 11:15 WBC (4.0-11.0) th/mm3 RBC (4.00-5.30) mil/mm3 Hgb (11.6-15.3) gm/dL Hct (35.0-46.0) % MCV (80.0-100.0) fL MCH (27.0-34.0) pg MCHC (32.0-36.0) % RDW (11.6-17.2) % Plt Count (150-450) th/mm3 MPV (7.0-11.0) fL Prelim Diff (Auto) Neut % (Auto) (16.0-70.0) % Lymph % (Auto) (9.0-44.0) % [place] % (Auto) (0.0-8.0) % Eos % (Auto) (0.0-4.0) % Baso % (Auto) (0.0-2.0) % Neut # (Auto) (1.8-7.7) th/mm3 Lymph # (Auto) (1.0-4.8) th/mm3 [place] # (Auto) (0.0-0.9) th/mm3 Eos # (Auto) (0.0-0.4) th/mm3 Baso # (Auto) (0.0-0.2) th/mm3 WBC Differential Seg Neuts % (Manual) (16-70) % Band Neuts % (Manual) (0-6) % Lymphocytes % (Manual) (9-44) % Monocytes % (Manual) (0-8) % Metamyelocytes % (Man) (0-1) % Myelocytes % (Man) (0-0) % Promyelocytes % (Man) (0-0) % Abs Neuts (Manual) (1.8-7.7) th/mm3 Differential Comment Toxic Granulation (None) Toxic Vacuolation (None) Platelet Estimate (Normal) Platelet Morphology (Normal) Haptoglobin Cancelled PT (9.8-11.6) sec INR Ratio APTT (24.3-30.1) sec Puncture Site Right radial Patient Temperature 98.6 O2 Saturation 89 L* (90-100) % ABG pH 7.26 L* (7.380-7.420) ABG pCO2 33 L (38-42) mmHg ABG pO2 63 (61-120) mmHg ABG HCO3 14 L* (22-26) mmol/L ABG O2 Content 12.2 (12.0-20.0) Vol % ABG Base Excess -11.6 L (-2-2) mmol/L ABG Methemoglobin 0.6 (0-2) % [place] Test Present Hemoglobin 9.7 L (12.0-16.0) G/DL Carboxyhemoglobin 0.8 (0-4) % O2 Delivery Device Ventilator Vent Setting Prvc/ac Inspired O2 100 % Critical Value Yes Sodium (136-145) meq/L Potassium (3.5-5.1) meq/L Chloride (98-107) meq/L Carbon Dioxide (21.0-32.0) meq/L Anion Gap (5-15) meq/L BUN (7-18) mg/dL Creatinine (0.50-1.00) mg/dL Estimated GFR (>89) mL/min POC Glucose 117 H (68-110) mg/dl Random Glucose (74-106) mg/dL Osmolality (275-295) mosm/kg Lactic Acid (0.4-2.0) mmol/L Calcium (8.5-10.1) mg/dL Prot Corrected Calcium (8.5-10.1) mg/dL Phosphorus (2.5-4.9) mg/dL Magnesium (1.5-2.5) mg/dL Total Bilirubin (0.2-1.0) mg/dL GGT (5-55) U/L AST (15-37) U/L ALT (10-53) U/L Alkaline Phosphatase (45-117) U/L Ammonia (11-32) mcmol/L Lactate Dehydrogenase 480 H (84-246) U/L Total Creatine Kinase (26-192) U/L CK-MB (CK-2) (0.5-3.6) ng/mL CK-MB (CK-2) % (0.0-4.0) % Troponin I (0.02-0.05) ng/mL B-Natriuretic Peptide (0-100) pg/mL Total Protein (6.4-8.2) g/dL Albumin (3.4-5.0) g/dL Prealbumin (20-40) mg/dL TSH (0.358-3.740) uIU/mL Urine Color (Yellw/Straw) Urine Clarity (Clear) Urine pH (5.0-8.5) Ur Specific [place] (1.002-1.035) Urine Protein (Neg-Trace) mg/dL Urine Glucose (UA) (Negative) mg/dL Urine Ketones (Negative) mg/dL Urine Occult Blood (Negative) Urine Nitrate (Negative) Urine Bilirubin (Negative) Urine Urobilinogen (Less than 2) mg/dL Ur Leukocyte Esterase (Negative) Urine RBC (0-3) /hpf Urine WBC (0-5) /hpf Ur Squamous Epith Cells (0-5) /hpf Amorphous Sediment (None) /hpf Hyaline Casts (0-3) /lpf Urine Mucus (Occasional) /lpf Micro UA Comment Ur Microscopic Review Urine Culture Comments Urine Eosinophils (None Seen) /HPF Urine Osmolality (300-1300) mosm/kg Ur Random Creatinine (27-300) mg/dL Ur Random Sodium meq/L Pleural RBC (0-0) /mm3 Pleural Nuc Cells (0-10) /mm3 Pleural Neutrophils % Pleural Lymphocytes % Pleural Monocytes % Pleural Mesothelial % Pleural Other Cells % Pleural Total Protein gm/dL Pleural LDH U/L Pleural Glucose mg/dL Nasal Screen MRSA (PCR) (Negative) Salicylates (2.8-20.0) mg/dL Urine Opiates Screen (Neg) Acetaminophen (10.0-30.0) mcg/mL Ur Barbiturates Screen (Neg) Ur Amphetamines Screen (Neg) U Benzodiazepines Scrn (Neg) Urine Cocaine Screen (Neg) U Cannabinoids Screen (Neg) Serum Alcohol (0-5) mg/dL HIV 1&2 Ab/P24 Ag 4thGn (Nonreactive) 12/17/17 12/17/17 12/17/17 Range/Units 11:15 11:35 11:35 WBC (4.0-11.0) th/mm3 RBC (4.00-5.30) mil/mm3 Hgb (11.6-15.3) gm/dL Hct (35.0-46.0) % MCV (80.0-100.0) fL MCH (27.0-34.0) pg MCHC (32.0-36.0) % RDW (11.6-17.2) % Plt Count (150-450) th/mm3 MPV (7.0-11.0) fL Prelim Diff (Auto) Neut % (Auto) (16.0-70.0) % Lymph % (Auto) (9.0-44.0) % [place] % (Auto) (0.0-8.0) % Eos % (Auto) (0.0-4.0) % Baso % (Auto) (0.0-2.0) % Neut # (Auto) (1.8-7.7) th/mm3 Lymph # (Auto) (1.0-4.8) th/mm3 [place] # (Auto) (0.0-0.9) th/mm3 Eos # (Auto) (0.0-0.4) th/mm3 Baso # (Auto) (0.0-0.2) th/mm3 WBC Differential Seg Neuts % (Manual) (16-70) % Band Neuts % (Manual) (0-6) % Lymphocytes % (Manual) (9-44) % Monocytes % (Manual) (0-8) % Metamyelocytes % (Man) (0-1) % Myelocytes % (Man) (0-0) % Promyelocytes % (Man) (0-0) % Abs Neuts (Manual) (1.8-7.7) th/mm3 Differential Comment Toxic Granulation (None) Toxic Vacuolation (None) Platelet Estimate (Normal) Platelet Morphology (Normal) Haptoglobin PT (9.8-11.6) sec INR Ratio APTT (24.3-30.1) sec Puncture Site Patient Temperature O2 Saturation (90-100) % ABG pH (7.380-7.420) ABG pCO2 (38-42) mmHg ABG pO2 (61-120) mmHg ABG HCO3 (22-26) mmol/L ABG O2 Content (12.0-20.0) Vol % ABG Base Excess (-2-2) mmol/L ABG Methemoglobin (0-2) % [place] Test Hemoglobin (12.0-16.0) G/DL Carboxyhemoglobin (0-4) % O2 Delivery Device Vent Setting Inspired O2 % Critical Value Sodium (136-145) meq/L Potassium (3.5-5.1) meq/L Chloride (98-107) meq/L Carbon Dioxide (21.0-32.0) meq/L Anion Gap (5-15) meq/L BUN (7-18) mg/dL Creatinine (0.50-1.00) mg/dL Estimated GFR (>89) mL/min POC Glucose (68-110) mg/dl Random Glucose (74-106) mg/dL Osmolality 304 H (275-295) mosm/kg Lactic Acid 4.6 H* (0.4-2.0) mmol/L Calcium (8.5-10.1) mg/dL Prot Corrected Calcium (8.5-10.1) mg/dL Phosphorus (2.5-4.9) mg/dL Magnesium (1.5-2.5) mg/dL Total Bilirubin (0.2-1.0) mg/dL GGT (5-55) U/L AST (15-37) U/L ALT (10-53) U/L Alkaline Phosphatase (45-117) U/L Ammonia (11-32) mcmol/L Lactate Dehydrogenase (84-246) U/L Total Creatine Kinase 1093 H (26-192) U/L CK-MB (CK-2) 10 H (0.5-3.6) ng/mL CK-MB (CK-2) % 0.9 (0.0-4.0) % Troponin I (0.02-0.05) ng/mL B-Natriuretic Peptide 375 H (0-100) pg/mL Total Protein (6.4-8.2) g/dL Albumin (3.4-5.0) g/dL Prealbumin (20-40) mg/dL TSH (0.358-3.740) uIU/mL Urine Color (Yellw/Straw) Urine Clarity (Clear) Urine pH (5.0-8.5) Ur Specific [place] (1.002-1.035) Urine Protein (Neg-Trace) mg/dL Urine Glucose (UA) (Negative) mg/dL Urine Ketones (Negative) mg/dL Urine Occult Blood (Negative) Urine Nitrate (Negative) Urine Bilirubin (Negative) Urine Urobilinogen (Less than 2) mg/dL Ur Leukocyte Esterase (Negative) Urine RBC (0-3) /hpf Urine WBC (0-5) /hpf Ur Squamous Epith Cells (0-5) /hpf Amorphous Sediment (None) /hpf Hyaline Casts (0-3) /lpf Urine Mucus (Occasional) /lpf Micro UA Comment Ur Microscopic Review Urine Culture Comments Urine Eosinophils (None Seen) /HPF Urine Osmolality (300-1300) mosm/kg Ur Random Creatinine (27-300) mg/dL Ur Random Sodium meq/L Pleural RBC (0-0) /mm3 Pleural Nuc Cells (0-10) /mm3 Pleural Neutrophils % Pleural Lymphocytes % Pleural Monocytes % Pleural Mesothelial % Pleural Other Cells % Pleural Total Protein gm/dL Pleural LDH U/L Pleural Glucose mg/dL Nasal Screen MRSA (PCR) (Negative) Salicylates (2.8-20.0) mg/dL Urine Opiates Screen (Neg) Acetaminophen (10.0-30.0) mcg/mL Ur Barbiturates Screen (Neg) Ur Amphetamines Screen (Neg) U Benzodiazepines Scrn (Neg) Urine Cocaine Screen (Neg) U Cannabinoids Screen (Neg) Serum Alcohol (0-5) mg/dL HIV 1&2 Ab/P24 Ag 4thGn (Nonreactive) 12/17/17 12/17/17 12/17/17 Range/Units 11:35 11:35 13:54 WBC (4.0-11.0) th/mm3 RBC (4.00-5.30) mil/mm3 Hgb (11.6-15.3) gm/dL Hct (35.0-46.0) % MCV (80.0-100.0) fL MCH (27.0-34.0) pg MCHC (32.0-36.0) % RDW (11.6-17.2) % Plt Count (150-450) th/mm3 MPV (7.0-11.0) fL Prelim Diff (Auto) Neut % (Auto) (16.0-70.0) % Lymph % (Auto) (9.0-44.0) % [place] % (Auto) (0.0-8.0) % Eos % (Auto) (0.0-4.0) % Baso % (Auto) (0.0-2.0) % Neut # (Auto) (1.8-7.7) th/mm3 Lymph # (Auto) (1.0-4.8) th/mm3 [place] # (Auto) (0.0-0.9) th/mm3 Eos # (Auto) (0.0-0.4) th/mm3 Baso # (Auto) (0.0-0.2) th/mm3 WBC Differential Seg Neuts % (Manual) (16-70) % Band Neuts % (Manual) (0-6) % Lymphocytes % (Manual) (9-44) % Monocytes % (Manual) (0-8) % Metamyelocytes % (Man) (0-1) % Myelocytes % (Man) (0-0) % Promyelocytes % (Man) (0-0) % Abs Neuts (Manual) (1.8-7.7) th/mm3 Differential Comment Toxic Granulation (None) Toxic Vacuolation (None) Platelet Estimate (Normal) Platelet Morphology (Normal) Haptoglobin 375 H PT (9.8-11.6) sec INR Ratio APTT (24.3-30.1) sec Puncture Site Patient Temperature O2 Saturation (90-100) % ABG pH (7.380-7.420) ABG pCO2 (38-42) mmHg ABG pO2 (61-120) mmHg ABG HCO3 (22-26) mmol/L ABG O2 Content (12.0-20.0) Vol % ABG Base Excess (-2-2) mmol/L ABG Methemoglobin (0-2) % [place] Test Hemoglobin (12.0-16.0) G/DL Carboxyhemoglobin (0-4) % O2 Delivery Device Vent Setting Inspired O2 % Critical Value Sodium (136-145) meq/L Potassium (3.5-5.1) meq/L Chloride (98-107) meq/L Carbon Dioxide (21.0-32.0) meq/L Anion Gap (5-15) meq/L BUN (7-18) mg/dL Creatinine (0.50-1.00) mg/dL Estimated GFR (>89) mL/min POC Glucose (68-110) mg/dl Random Glucose (74-106) mg/dL Osmolality (275-295) mosm/kg Lactic Acid (0.4-2.0) mmol/L Calcium (8.5-10.1) mg/dL Prot Corrected Calcium (8.5-10.1) mg/dL Phosphorus (2.5-4.9) mg/dL Magnesium (1.5-2.5) mg/dL Total Bilirubin (0.2-1.0) mg/dL GGT (5-55) U/L AST (15-37) U/L ALT (10-53) U/L Alkaline Phosphatase (45-117) U/L Ammonia (11-32) mcmol/L Lactate Dehydrogenase (84-246) U/L Total Creatine Kinase (26-192) U/L CK-MB (CK-2) (0.5-3.6) ng/mL CK-MB (CK-2) % (0.0-4.0) % Troponin I (0.02-0.05) ng/mL B-Natriuretic Peptide (0-100) pg/mL Total Protein (6.4-8.2) g/dL Albumin (3.4-5.0) g/dL Prealbumin 9 L (20-40) mg/dL TSH (0.358-3.740) uIU/mL Urine Color (Yellw/Straw) Urine Clarity (Clear) Urine pH (5.0-8.5) Ur Specific [place] (1.002-1.035) Urine Protein (Neg-Trace) mg/dL Urine Glucose (UA) (Negative) mg/dL Urine Ketones (Negative) mg/dL Urine Occult Blood (Negative) Urine Nitrate (Negative) Urine Bilirubin (Negative) Urine Urobilinogen (Less than 2) mg/dL Ur Leukocyte Esterase (Negative) Urine RBC (0-3) /hpf Urine WBC (0-5) /hpf Ur Squamous Epith Cells (0-5) /hpf Amorphous Sediment (None) /hpf Hyaline Casts (0-3) /lpf Urine Mucus (Occasional) /lpf Micro UA Comment Ur Microscopic Review Urine Culture Comments Urine Eosinophils (None Seen) /HPF Urine Osmolality (300-1300) mosm/kg Ur Random Creatinine 187 (27-300) mg/dL Ur Random Sodium meq/L Pleural RBC (0-0) /mm3 Pleural Nuc Cells (0-10) /mm3 Pleural Neutrophils % Pleural Lymphocytes % Pleural Monocytes % Pleural Mesothelial % Pleural Other Cells % Pleural Total Protein gm/dL Pleural LDH U/L Pleural Glucose mg/dL Nasal Screen MRSA (PCR) (Negative) Salicylates (2.8-20.0) mg/dL Urine Opiates Screen (Neg) Acetaminophen (10.0-30.0) mcg/mL Ur Barbiturates Screen (Neg) Ur Amphetamines Screen (Neg) U Benzodiazepines Scrn (Neg) Urine Cocaine Screen (Neg) U Cannabinoids Screen (Neg) Serum Alcohol (0-5) mg/dL HIV 1&2 Ab/P24 Ag 4thGn Nonreactive (Nonreactive) 12/17/17 12/17/17 12/17/17 Range/Units 13:54 13:54 13:54 WBC (4.0-11.0) th/mm3 RBC (4.00-5.30) mil/mm3 Hgb (11.6-15.3) gm/dL Hct (35.0-46.0) % MCV (80.0-100.0) fL MCH (27.0-34.0) pg MCHC (32.0-36.0) % RDW (11.6-17.2) % Plt Count (150-450) th/mm3 MPV (7.0-11.0) fL Prelim Diff (Auto) Neut % (Auto) (16.0-70.0) % Lymph % (Auto) (9.0-44.0) % [place] % (Auto) (0.0-8.0) % Eos % (Auto) (0.0-4.0) % Baso % (Auto) (0.0-2.0) % Neut # (Auto) (1.8-7.7) th/mm3 Lymph # (Auto) (1.0-4.8) th/mm3 [place] # (Auto) (0.0-0.9) th/mm3 Eos # (Auto) (0.0-0.4) th/mm3 Baso # (Auto) (0.0-0.2) th/mm3 WBC Differential Seg Neuts % (Manual) (16-70) % Band Neuts % (Manual) (0-6) % Lymphocytes % (Manual) (9-44) % Monocytes % (Manual) (0-8) % Metamyelocytes % (Man) (0-1) % Myelocytes % (Man) (0-0) % Promyelocytes % (Man) (0-0) % Abs Neuts (Manual) (1.8-7.7) th/mm3 Differential Comment Toxic Granulation (None) Toxic Vacuolation (None) Platelet Estimate (Normal) Platelet Morphology (Normal) Haptoglobin PT (9.8-11.6) sec INR Ratio APTT (24.3-30.1) sec Puncture Site Patient Temperature O2 Saturation (90-100) % ABG pH (7.380-7.420) ABG pCO2 (38-42) mmHg ABG pO2 (61-120) mmHg ABG HCO3 (22-26) mmol/L ABG O2 Content (12.0-20.0) Vol % ABG Base Excess (-2-2) mmol/L ABG Methemoglobin (0-2) % [place] Test Hemoglobin (12.0-16.0) G/DL Carboxyhemoglobin (0-4) % O2 Delivery Device Vent Setting Inspired O2 % Critical Value Sodium (136-145) meq/L Potassium (3.5-5.1) meq/L Chloride (98-107) meq/L Carbon Dioxide (21.0-32.0) meq/L Anion Gap (5-15) meq/L BUN (7-18) mg/dL Creatinine (0.50-1.00) mg/dL Estimated GFR (>89) mL/min POC Glucose (68-110) mg/dl Random Glucose (74-106) mg/dL Osmolality (275-295) mosm/kg Lactic Acid (0.4-2.0) mmol/L Calcium (8.5-10.1) mg/dL Prot Corrected Calcium (8.5-10.1) mg/dL Phosphorus (2.5-4.9) mg/dL Magnesium (1.5-2.5) mg/dL Total Bilirubin (0.2-1.0) mg/dL GGT (5-55) U/L AST (15-37) U/L ALT (10-53) U/L Alkaline Phosphatase (45-117) U/L Ammonia (11-32) mcmol/L Lactate Dehydrogenase (84-246) U/L Total Creatine Kinase (26-192) U/L CK-MB (CK-2) (0.5-3.6) ng/mL CK-MB (CK-2) % (0.0-4.0) % Troponin I (0.02-0.05) ng/mL B-Natriuretic Peptide (0-100) pg/mL Total Protein (6.4-8.2) g/dL Albumin (3.4-5.0) g/dL Prealbumin (20-40) mg/dL TSH (0.358-3.740) uIU/mL Urine Color (Yellw/Straw) Urine Clarity (Clear) Urine pH (5.0-8.5) Ur Specific [place] (1.002-1.035) Urine Protein (Neg-Trace) mg/dL Urine Glucose (UA) (Negative) mg/dL Urine Ketones (Negative) mg/dL Urine Occult Blood (Negative) Urine Nitrate (Negative) Urine Bilirubin (Negative) Urine Urobilinogen (Less than 2) mg/dL Ur Leukocyte Esterase (Negative) Urine RBC (0-3) /hpf Urine WBC (0-5) /hpf Ur Squamous Epith Cells (0-5) /hpf Amorphous Sediment (None) /hpf Hyaline Casts (0-3) /lpf Urine Mucus (Occasional) /lpf Micro UA Comment Ur Microscopic Review Urine Culture Comments Urine Eosinophils None seen (None Seen) /HPF Urine Osmolality 462 (300-1300) mosm/kg Ur Random Creatinine (27-300) mg/dL Ur Random Sodium 21 meq/L Pleural RBC (0-0) /mm3 Pleural Nuc Cells (0-10) /mm3 Pleural Neutrophils % Pleural Lymphocytes % Pleural Monocytes % Pleural Mesothelial % Pleural Other Cells % Pleural Total Protein gm/dL Pleural LDH U/L Pleural Glucose mg/dL Nasal Screen MRSA (PCR) (Negative) Salicylates (2.8-20.0) mg/dL Urine Opiates Screen (Neg) Acetaminophen (10.0-30.0) mcg/mL Ur Barbiturates Screen (Neg) Ur Amphetamines Screen (Neg) U Benzodiazepines Scrn (Neg) Urine Cocaine Screen (Neg) U Cannabinoids Screen (Neg) Serum Alcohol (0-5) mg/dL HIV 1&2 Ab/P24 Ag 4thGn (Nonreactive) 12/17/17 12/17/17 12/17/17 Range/Units 15:41 15:41 15:41 WBC (4.0-11.0) th/mm3 RBC (4.00-5.30) mil/mm3 Hgb (11.6-15.3) gm/dL Hct (35.0-46.0) % MCV (80.0-100.0) fL MCH (27.0-34.0) pg MCHC (32.0-36.0) % RDW (11.6-17.2) % Plt Count (150-450) th/mm3 MPV (7.0-11.0) fL Prelim Diff (Auto) Neut % (Auto) (16.0-70.0) % Lymph % (Auto) (9.0-44.0) % [place] % (Auto) (0.0-8.0) % Eos % (Auto) (0.0-4.0) % Baso % (Auto) (0.0-2.0) % Neut # (Auto) (1.8-7.7) th/mm3 Lymph # (Auto) (1.0-4.8) th/mm3 [place] # (Auto) (0.0-0.9) th/mm3 Eos # (Auto) (0.0-0.4) th/mm3 Baso # (Auto) (0.0-0.2) th/mm3 WBC Differential Seg Neuts % (Manual) (16-70) % Band Neuts % (Manual) (0-6) % Lymphocytes % (Manual) (9-44) % Monocytes % (Manual) (0-8) % Metamyelocytes % (Man) (0-1) % Myelocytes % (Man) (0-0) % Promyelocytes % (Man) (0-0) % Abs Neuts (Manual) (1.8-7.7) th/mm3 Differential Comment Toxic Granulation (None) Toxic Vacuolation (None) Platelet Estimate (Normal) Platelet Morphology (Normal) Haptoglobin PT (9.8-11.6) sec INR Ratio APTT (24.3-30.1) sec Puncture Site Patient Temperature O2 Saturation (90-100) % ABG pH (7.380-7.420) ABG pCO2 (38-42) mmHg ABG pO2 (61-120) mmHg ABG HCO3 (22-26) mmol/L ABG O2 Content (12.0-20.0) Vol % ABG Base Excess (-2-2) mmol/L ABG Methemoglobin (0-2) % [place] Test Hemoglobin (12.0-16.0) G/DL Carboxyhemoglobin (0-4) % O2 Delivery Device Vent Setting Inspired O2 % Critical Value Sodium (136-145) meq/L Potassium (3.5-5.1) meq/L Chloride (98-107) meq/L Carbon Dioxide (21.0-32.0) meq/L Anion Gap (5-15) meq/L BUN (7-18) mg/dL Creatinine (0.50-1.00) mg/dL Estimated GFR (>89) mL/min POC Glucose (68-110) mg/dl Random Glucose (74-106) mg/dL Osmolality (275-295) mosm/kg Lactic Acid (0.4-2.0) mmol/L Calcium (8.5-10.1) mg/dL Prot Corrected Calcium (8.5-10.1) mg/dL Phosphorus (2.5-4.9) mg/dL Magnesium (1.5-2.5) mg/dL Total Bilirubin (0.2-1.0) mg/dL GGT 7 (5-55) U/L AST (15-37) U/L ALT (10-53) U/L Alkaline Phosphatase (45-117) U/L Ammonia 70 H (11-32) mcmol/L Lactate Dehydrogenase (84-246) U/L Total Creatine Kinase 1177 H (26-192) U/L CK-MB (CK-2) 10.5 H (0.5-3.6) ng/mL CK-MB (CK-2) % 0.9 (0.0-4.0) % Troponin I 0.14 H (0.02-0.05) ng/mL B-Natriuretic Peptide (0-100) pg/mL Total Protein (6.4-8.2) g/dL Albumin (3.4-5.0) g/dL Prealbumin (20-40) mg/dL TSH (0.358-3.740) uIU/mL Urine Color (Yellw/Straw) Urine Clarity (Clear) Urine pH (5.0-8.5) Ur Specific [place] (1.002-1.035) Urine Protein (Neg-Trace) mg/dL Urine Glucose (UA) (Negative) mg/dL Urine Ketones (Negative) mg/dL Urine Occult Blood (Negative) Urine Nitrate (Negative) Urine Bilirubin (Negative) Urine Urobilinogen (Less than 2) mg/dL Ur Leukocyte Esterase (Negative) Urine RBC (0-3) /hpf Urine WBC (0-5) /hpf Ur Squamous Epith Cells (0-5) /hpf Amorphous Sediment (None) /hpf Hyaline Casts (0-3) /lpf Urine Mucus (Occasional) /lpf Micro UA Comment Ur Microscopic Review Urine Culture Comments Urine Eosinophils (None Seen) /HPF Urine Osmolality (300-1300) mosm/kg Ur Random Creatinine (27-300) mg/dL Ur Random Sodium meq/L Pleural RBC (0-0) /mm3 Pleural Nuc Cells (0-10) /mm3 Pleural Neutrophils % Pleural Lymphocytes % Pleural Monocytes % Pleural Mesothelial % Pleural Other Cells % Pleural Total Protein gm/dL Pleural LDH U/L Pleural Glucose mg/dL Nasal Screen MRSA (PCR) (Negative) Salicylates (2.8-20.0) mg/dL Urine Opiates Screen (Neg) Acetaminophen (10.0-30.0) mcg/mL Ur Barbiturates Screen (Neg) Ur Amphetamines Screen (Neg) U Benzodiazepines Scrn (Neg) Urine Cocaine Screen (Neg) U Cannabinoids Screen (Neg) Serum Alcohol (0-5) mg/dL HIV 1&2 Ab/P24 Ag 4thGn (Nonreactive) 12/17/17 12/17/17 12/17/17 Range/Units 15:55 15:55 15:55 WBC (4.0-11.0) th/mm3 RBC (4.00-5.30) mil/mm3 Hgb (11.6-15.3) gm/dL Hct (35.0-46.0) % MCV (80.0-100.0) fL MCH (27.0-34.0) pg MCHC (32.0-36.0) % RDW (11.6-17.2) % Plt Count (150-450) th/mm3 MPV (7.0-11.0) fL Prelim Diff (Auto) Neut % (Auto) (16.0-70.0) % Lymph % (Auto) (9.0-44.0) % [place] % (Auto) (0.0-8.0) % Eos % (Auto) (0.0-4.0) % Baso % (Auto) (0.0-2.0) % Neut # (Auto) (1.8-7.7) th/mm3 Lymph # (Auto) (1.0-4.8) th/mm3 [place] # (Auto) (0.0-0.9) th/mm3 Eos # (Auto) (0.0-0.4) th/mm3 Baso # (Auto) (0.0-0.2) th/mm3 WBC Differential Seg Neuts % (Manual) (16-70) % Band Neuts % (Manual) (0-6) % Lymphocytes % (Manual) (9-44) % Monocytes % (Manual) (0-8) % Metamyelocytes % (Man) (0-1) % Myelocytes % (Man) (0-0) % Promyelocytes % (Man) (0-0) % Abs Neuts (Manual) (1.8-7.7) th/mm3 Differential Comment Toxic Granulation (None) Toxic Vacuolation (None) Platelet Estimate (Normal) Platelet Morphology (Normal) Haptoglobin PT (9.8-11.6) sec INR Ratio APTT (24.3-30.1) sec Puncture Site Patient Temperature O2 Saturation (90-100) % ABG pH (7.380-7.420) ABG pCO2 (38-42) mmHg ABG pO2 (61-120) mmHg ABG HCO3 (22-26) mmol/L ABG O2 Content (12.0-20.0) Vol % ABG Base Excess (-2-2) mmol/L ABG Methemoglobin (0-2) % [place] Test Hemoglobin (12.0-16.0) G/DL Carboxyhemoglobin (0-4) % O2 Delivery Device Vent Setting Inspired O2 % Critical Value Sodium (136-145) meq/L Potassium (3.5-5.1) meq/L Chloride (98-107) meq/L Carbon Dioxide (21.0-32.0) meq/L Anion Gap (5-15) meq/L BUN (7-18) mg/dL Creatinine (0.50-1.00) mg/dL Estimated GFR (>89) mL/min POC Glucose (68-110) mg/dl Random Glucose (74-106) mg/dL Osmolality (275-295) mosm/kg Lactic Acid (0.4-2.0) mmol/L Calcium (8.5-10.1) mg/dL Prot Corrected Calcium (8.5-10.1) mg/dL Phosphorus (2.5-4.9) mg/dL Magnesium (1.5-2.5) mg/dL Total Bilirubin (0.2-1.0) mg/dL GGT (5-55) U/L AST (15-37) U/L ALT (10-53) U/L Alkaline Phosphatase (45-117) U/L Ammonia (11-32) mcmol/L Lactate Dehydrogenase (84-246) U/L Total Creatine Kinase (26-192) U/L CK-MB (CK-2) (0.5-3.6) ng/mL CK-MB (CK-2) % (0.0-4.0) % Troponin I (0.02-0.05) ng/mL B-Natriuretic Peptide (0-100) pg/mL Total Protein (6.4-8.2) g/dL Albumin (3.4-5.0) g/dL Prealbumin (20-40) mg/dL TSH (0.358-3.740) uIU/mL Urine Color (Yellw/Straw) Urine Clarity (Clear) Urine pH (5.0-8.5) Ur Specific [place] (1.002-1.035) Urine Protein (Neg-Trace) mg/dL Urine Glucose (UA) (Negative) mg/dL Urine Ketones (Negative) mg/dL Urine Occult Blood (Negative) Urine Nitrate (Negative) Urine Bilirubin (Negative) Urine Urobilinogen (Less than 2) mg/dL Ur Leukocyte Esterase (Negative) Urine RBC (0-3) /hpf Urine WBC (0-5) /hpf Ur Squamous Epith Cells (0-5) /hpf Amorphous Sediment (None) /hpf Hyaline Casts (0-3) /lpf Urine Mucus (Occasional) /lpf Micro UA Comment Ur Microscopic Review Urine Culture Comments Urine Eosinophils (None Seen) /HPF Urine Osmolality (300-1300) mosm/kg Ur Random Creatinine (27-300) mg/dL Ur Random Sodium meq/L Pleural RBC 78772 H (0-0) /mm3 Pleural Nuc Cells 4795 H (0-10) /mm3 Pleural Neutrophils 42 % Pleural Lymphocytes 17 % Pleural Monocytes 3 % Pleural Mesothelial 3 % Pleural Other Cells 35 % Pleural Total Protein 1.8 gm/dL Pleural LDH 3681 Cancelled U/L Pleural Glucose 85 mg/dL Nasal Screen MRSA (PCR) (Negative) Salicylates (2.8-20.0) mg/dL Urine Opiates Screen (Neg) Acetaminophen (10.0-30.0) mcg/mL Ur Barbiturates Screen (Neg) Ur Amphetamines Screen (Neg) U Benzodiazepines Scrn (Neg) Urine Cocaine Screen (Neg) U Cannabinoids Screen (Neg) Serum Alcohol (0-5) mg/dL HIV 1&2 Ab/P24 Ag 4thGn (Nonreactive) 12/17/17 12/17/17 12/17/17 Range/Units 15:55 17:00 20:08 WBC (4.0-11.0) th/mm3 RBC (4.00-5.30) mil/mm3 Hgb (11.6-15.3) gm/dL Hct (35.0-46.0) % MCV (80.0-100.0) fL MCH (27.0-34.0) pg MCHC (32.0-36.0) % RDW (11.6-17.2) % Plt Count (150-450) th/mm3 MPV (7.0-11.0) fL Prelim Diff (Auto) Neut % (Auto) (16.0-70.0) % Lymph % (Auto) (9.0-44.0) % [place] % (Auto) (0.0-8.0) % Eos % (Auto) (0.0-4.0) % Baso % (Auto) (0.0-2.0) % Neut # (Auto) (1.8-7.7) th/mm3 Lymph # (Auto) (1.0-4.8) th/mm3 [place] # (Auto) (0.0-0.9) th/mm3 Eos # (Auto) (0.0-0.4) th/mm3 Baso # (Auto) (0.0-0.2) th/mm3 WBC Differential Seg Neuts % (Manual) (16-70) % Band Neuts % (Manual) (0-6) % Lymphocytes % (Manual) (9-44) % Monocytes % (Manual) (0-8) % Metamyelocytes % (Man) (0-1) % Myelocytes % (Man) (0-0) % Promyelocytes % (Man) (0-0) % Abs Neuts (Manual) (1.8-7.7) th/mm3 Differential Comment Toxic Granulation (None) Toxic Vacuolation (None) Platelet Estimate (Normal) Platelet Morphology (Normal) Haptoglobin PT (9.8-11.6) sec INR Ratio APTT (24.3-30.1) sec Puncture Site Patient Temperature O2 Saturation (90-100) % ABG pH (7.380-7.420) ABG pCO2 (38-42) mmHg ABG pO2 (61-120) mmHg ABG HCO3 (22-26) mmol/L ABG O2 Content (12.0-20.0) Vol % ABG Base Excess (-2-2) mmol/L ABG Methemoglobin (0-2) % [place] Test Hemoglobin (12.0-16.0) G/DL Carboxyhemoglobin (0-4) % O2 Delivery Device Vent Setting Inspired O2 % Critical Value Sodium (136-145) meq/L Potassium (3.5-5.1) meq/L Chloride (98-107) meq/L Carbon Dioxide (21.0-32.0) meq/L Anion Gap (5-15) meq/L BUN (7-18) mg/dL Creatinine (0.50-1.00) mg/dL Estimated GFR (>89) mL/min POC Glucose 106 (68-110) mg/dl Random Glucose (74-106) mg/dL Osmolality (275-295) mosm/kg Lactic Acid (0.4-2.0) mmol/L Calcium (8.5-10.1) mg/dL Prot Corrected Calcium (8.5-10.1) mg/dL Phosphorus (2.5-4.9) mg/dL Magnesium (1.5-2.5) mg/dL Total Bilirubin (0.2-1.0) mg/dL GGT (5-55) U/L AST (15-37) U/L ALT (10-53) U/L Alkaline Phosphatase (45-117) U/L Ammonia (11-32) mcmol/L Lactate Dehydrogenase (84-246) U/L Total Creatine Kinase (26-192) U/L CK-MB (CK-2) (0.5-3.6) ng/mL CK-MB (CK-2) % (0.0-4.0) % Troponin I (0.02-0.05) ng/mL B-Natriuretic Peptide (0-100) pg/mL Total Protein (6.4-8.2) g/dL Albumin (3.4-5.0) g/dL Prealbumin (20-40) mg/dL TSH (0.358-3.740) uIU/mL Urine Color (Yellw/Straw) Urine Clarity (Clear) Urine pH (5.0-8.5) Ur Specific [place] (1.002-1.035) Urine Protein (Neg-Trace) mg/dL Urine Glucose (UA) (Negative) mg/dL Urine Ketones (Negative) mg/dL Urine Occult Blood (Negative) Urine Nitrate (Negative) Urine Bilirubin (Negative) Urine Urobilinogen (Less than 2) mg/dL Ur Leukocyte Esterase (Negative) Urine RBC (0-3) /hpf Urine WBC (0-5) /hpf Ur Squamous Epith Cells (0-5) /hpf Amorphous Sediment (None) /hpf Hyaline Casts (0-3) /lpf Urine Mucus (Occasional) /lpf Micro UA Comment Ur Microscopic Review Urine Culture Comments Urine Eosinophils (None Seen) /HPF Urine Osmolality (300-1300) mosm/kg Ur Random Creatinine (27-300) mg/dL Ur Random Sodium meq/L Pleural RBC (0-0) /mm3 Pleural Nuc Cells (0-10) /mm3 Pleural Neutrophils % Pleural Lymphocytes % Pleural Monocytes % Pleural Mesothelial % Pleural Other Cells % Pleural Total Protein Cancelled gm/dL Pleural LDH U/L Pleural Glucose mg/dL Nasal Screen MRSA (PCR) Not detected (Negative) Salicylates (2.8-20.0) mg/dL Urine Opiates Screen (Neg) Acetaminophen (10.0-30.0) mcg/mL Ur Barbiturates Screen (Neg) Ur Amphetamines Screen (Neg) U Benzodiazepines Scrn (Neg) Urine Cocaine Screen (Neg) U Cannabinoids Screen (Neg) Serum Alcohol (0-5) mg/dL HIV 1&2 Ab/P24 Ag 4thGn (Nonreactive) 12/17/17 12/17/17 12/18/17 Range/Units 21:58 22:17 00:19 WBC (4.0-11.0) th/mm3 RBC (4.00-5.30) mil/mm3 Hgb (11.6-15.3) gm/dL Hct (35.0-46.0) % MCV (80.0-100.0) fL MCH (27.0-34.0) pg MCHC (32.0-36.0) % RDW (11.6-17.2) % Plt Count (150-450) th/mm3 MPV (7.0-11.0) fL Prelim Diff (Auto) Neut % (Auto) (16.0-70.0) % Lymph % (Auto) (9.0-44.0) % [place] % (Auto) (0.0-8.0) % Eos % (Auto) (0.0-4.0) % Baso % (Auto) (0.0-2.0) % Neut # (Auto) (1.8-7.7) th/mm3 Lymph # (Auto) (1.0-4.8) th/mm3 [place] # (Auto) (0.0-0.9) th/mm3 Eos # (Auto) (0.0-0.4) th/mm3 Baso # (Auto) (0.0-0.2) th/mm3 WBC Differential Seg Neuts % (Manual) (16-70) % Band Neuts % (Manual) (0-6) % Lymphocytes % (Manual) (9-44) % Monocytes % (Manual) (0-8) % Metamyelocytes % (Man) (0-1) % Myelocytes % (Man) (0-0) % Promyelocytes % (Man) (0-0) % Abs Neuts (Manual) (1.8-7.7) th/mm3 Differential Comment Toxic Granulation (None) Toxic Vacuolation (None) Platelet Estimate (Normal) Platelet Morphology (Normal) Haptoglobin PT (9.8-11.6) sec INR Ratio APTT (24.3-30.1) sec Puncture Site Art line Patient Temperature 98.6 O2 Saturation 97 (90-100) % ABG pH 7.14 L* (7.380-7.420) ABG pCO2 47 H (38-42) mmHg ABG pO2 276 H (61-120) mmHg ABG HCO3 15 L* (22-26) mmol/L ABG O2 Content 12.2 (12.0-20.0) Vol % ABG Base Excess -12.0 L (-2-2) mmol/L ABG Methemoglobin 1.8 (0-2) % [place] Test Present Hemoglobin 8.4 L (12.0-16.0) G/DL Carboxyhemoglobin 0.0 (0-4) % O2 Delivery Device Ventilator Vent Setting See comments Inspired O2 100 % Critical Value Yes Sodium (136-145) meq/L Potassium (3.5-5.1) meq/L Chloride (98-107) meq/L Carbon Dioxide (21.0-32.0) meq/L Anion Gap (5-15) meq/L BUN (7-18) mg/dL Creatinine (0.50-1.00) mg/dL Estimated GFR (>89) mL/min POC Glucose 101 103 (68-110) mg/dl Random Glucose (74-106) mg/dL Osmolality (275-295) mosm/kg Lactic Acid (0.4-2.0) mmol/L Calcium (8.5-10.1) mg/dL Prot Corrected Calcium (8.5-10.1) mg/dL Phosphorus (2.5-4.9) mg/dL Magnesium (1.5-2.5) mg/dL Total Bilirubin (0.2-1.0) mg/dL GGT (5-55) U/L AST (15-37) U/L ALT (10-53) U/L Alkaline Phosphatase (45-117) U/L Ammonia (11-32) mcmol/L Lactate Dehydrogenase (84-246) U/L Total Creatine Kinase (26-192) U/L CK-MB (CK-2) (0.5-3.6) ng/mL CK-MB (CK-2) % (0.0-4.0) % Troponin I (0.02-0.05) ng/mL B-Natriuretic Peptide (0-100) pg/mL Total Protein (6.4-8.2) g/dL Albumin (3.4-5.0) g/dL Prealbumin (20-40) mg/dL TSH (0.358-3.740) uIU/mL Urine Color (Yellw/Straw) Urine Clarity (Clear) Urine pH (5.0-8.5) Ur Specific [place] (1.002-1.035) Urine Protein (Neg-Trace) mg/dL Urine Glucose (UA) (Negative) mg/dL Urine Ketones (Negative) mg/dL Urine Occult Blood (Negative) Urine Nitrate (Negative) Urine Bilirubin (Negative) Urine Urobilinogen (Less than 2) mg/dL Ur Leukocyte Esterase (Negative) Urine RBC (0-3) /hpf Urine WBC (0-5) /hpf Ur Squamous Epith Cells (0-5) /hpf Amorphous Sediment (None) /hpf Hyaline Casts (0-3) /lpf Urine Mucus (Occasional) /lpf Micro UA Comment Ur Microscopic Review Urine Culture Comments Urine Eosinophils (None Seen) /HPF Urine Osmolality (300-1300) mosm/kg Ur Random Creatinine (27-300) mg/dL Ur Random Sodium meq/L Pleural RBC (0-0) /mm3 Pleural Nuc Cells (0-10) /mm3 Pleural Neutrophils % Pleural Lymphocytes % Pleural Monocytes % Pleural Mesothelial % Pleural Other Cells % Pleural Total Protein gm/dL Pleural LDH U/L Pleural Glucose mg/dL Nasal Screen MRSA (PCR) (Negative) Salicylates (2.8-20.0) mg/dL Urine Opiates Screen (Neg) Acetaminophen (10.0-30.0) mcg/mL Ur Barbiturates Screen (Neg) Ur Amphetamines Screen (Neg) U Benzodiazepines Scrn (Neg) Urine Cocaine Screen (Neg) U Cannabinoids Screen (Neg) Serum Alcohol (0-5) mg/dL HIV 1&2 Ab/P24 Ag 4thGn (Nonreactive) 12/18/17 12/18/17 12/18/17 Range/Units 01:57 03:53 03:54 WBC (4.0-11.0) th/mm3 RBC (4.00-5.30) mil/mm3 Hgb (11.6-15.3) gm/dL Hct (35.0-46.0) % MCV (80.0-100.0) fL MCH (27.0-34.0) pg MCHC (32.0-36.0) % RDW (11.6-17.2) % Plt Count (150-450) th/mm3 MPV (7.0-11.0) fL Prelim Diff (Auto) Neut % (Auto) (16.0-70.0) % Lymph % (Auto) (9.0-44.0) % [place] % (Auto) (0.0-8.0) % Eos % (Auto) (0.0-4.0) % Baso % (Auto) (0.0-2.0) % Neut # (Auto) (1.8-7.7) th/mm3 Lymph # (Auto) (1.0-4.8) th/mm3 [place] # (Auto) (0.0-0.9) th/mm3 Eos # (Auto) (0.0-0.4) th/mm3 Baso # (Auto) (0.0-0.2) th/mm3 WBC Differential Seg Neuts % (Manual) (16-70) % Band Neuts % (Manual) (0-6) % Lymphocytes % (Manual) (9-44) % Monocytes % (Manual) (0-8) % Metamyelocytes % (Man) (0-1) % Myelocytes % (Man) (0-0) % Promyelocytes % (Man) (0-0) % Abs Neuts (Manual) (1.8-7.7) th/mm3 Differential Comment Toxic Granulation (None) Toxic Vacuolation (None) Platelet Estimate (Normal) Platelet Morphology (Normal) Haptoglobin PT (9.8-11.6) sec INR Ratio APTT (24.3-30.1) sec Puncture Site Patient Temperature O2 Saturation (90-100) % ABG pH (7.380-7.420) ABG pCO2 (38-42) mmHg ABG pO2 (61-120) mmHg ABG HCO3 (22-26) mmol/L ABG O2 Content (12.0-20.0) Vol % ABG Base Excess (-2-2) mmol/L ABG Methemoglobin (0-2) % [place] Test Hemoglobin (12.0-16.0) G/DL Carboxyhemoglobin (0-4) % O2 Delivery Device Vent Setting Inspired O2 % Critical Value Sodium (136-145) meq/L Potassium (3.5-5.1) meq/L Chloride (98-107) meq/L Carbon Dioxide (21.0-32.0) meq/L Anion Gap (5-15) meq/L BUN (7-18) mg/dL Creatinine (0.50-1.00) mg/dL Estimated GFR (>89) mL/min POC Glucose 133 H 186 H 159 H (68-110) mg/dl Random Glucose (74-106) mg/dL Osmolality (275-295) mosm/kg Lactic Acid (0.4-2.0) mmol/L Calcium (8.5-10.1) mg/dL Prot Corrected Calcium (8.5-10.1) mg/dL Phosphorus (2.5-4.9) mg/dL Magnesium (1.5-2.5) mg/dL Total Bilirubin (0.2-1.0) mg/dL GGT (5-55) U/L AST (15-37) U/L ALT (10-53) U/L Alkaline Phosphatase (45-117) U/L Ammonia (11-32) mcmol/L Lactate Dehydrogenase (84-246) U/L Total Creatine Kinase (26-192) U/L CK-MB (CK-2) (0.5-3.6) ng/mL CK-MB (CK-2) % (0.0-4.0) % Troponin I (0.02-0.05) ng/mL B-Natriuretic Peptide (0-100) pg/mL Total Protein (6.4-8.2) g/dL Albumin (3.4-5.0) g/dL Prealbumin (20-40) mg/dL TSH (0.358-3.740) uIU/mL Urine Color (Yellw/Straw) Urine Clarity (Clear) Urine pH (5.0-8.5) Ur Specific [place] (1.002-1.035) Urine Protein (Neg-Trace) mg/dL Urine Glucose (UA) (Negative) mg/dL Urine Ketones (Negative) mg/dL Urine Occult Blood (Negative) Urine Nitrate (Negative) Urine Bilirubin (Negative) Urine Urobilinogen (Less than 2) mg/dL Ur Leukocyte Esterase (Negative) Urine RBC (0-3) /hpf Urine WBC (0-5) /hpf Ur Squamous Epith Cells (0-5) /hpf Amorphous Sediment (None) /hpf Hyaline Casts (0-3) /lpf Urine Mucus (Occasional) /lpf Micro UA Comment Ur Microscopic Review Urine Culture Comments Urine Eosinophils (None Seen) /HPF Urine Osmolality (300-1300) mosm/kg Ur Random Creatinine (27-300) mg/dL Ur Random Sodium meq/L Pleural RBC (0-0) /mm3 Pleural Nuc Cells (0-10) /mm3 Pleural Neutrophils % Pleural Lymphocytes % Pleural Monocytes % Pleural Mesothelial % Pleural Other Cells % Pleural Total Protein gm/dL Pleural LDH U/L Pleural Glucose mg/dL Nasal Screen MRSA (PCR) (Negative) Salicylates (2.8-20.0) mg/dL Urine Opiates Screen (Neg) Acetaminophen (10.0-30.0) mcg/mL Ur Barbiturates Screen (Neg) Ur Amphetamines Screen (Neg) U Benzodiazepines Scrn (Neg) Urine Cocaine Screen (Neg) U Cannabinoids Screen (Neg) Serum Alcohol (0-5) mg/dL HIV 1&2 Ab/P24 Ag 4thGn (Nonreactive) 12/18/17 12/18/17 12/18/17 Range/Units 04:20 04:30 04:30 WBC 9.2 D (4.0-11.0) th/mm3 RBC 2.64 L (4.00-5.30) mil/mm3 Hgb 8.7 L D (11.6-15.3) gm/dL Hct 25.7 L (35.0-46.0) % MCV 97.1 D (80.0-100.0) fL MCH 32.8 (27.0-34.0) pg MCHC 33.8 (32.0-36.0) % RDW 15.4 (11.6-17.2) % Plt Count 244 D (150-450) th/mm3 MPV 9.4 (7.0-11.0) fL Prelim Diff (Auto) Slide review pending Neut % (Auto) 90.1 H (16.0-70.0) % Lymph % (Auto) 5.3 L (9.0-44.0) % [place] % (Auto) 4.1 (0.0-8.0) % Eos % (Auto) 0.3 (0.0-4.0) % Baso % (Auto) 0.2 (0.0-2.0) % Neut # (Auto) 8.3 H (1.8-7.7) th/mm3 Lymph # (Auto) 0.5 L (1.0-4.8) th/mm3 [place] # (Auto) 0.4 (0.0-0.9) th/mm3 Eos # (Auto) 0.0 (0.0-0.4) th/mm3 Baso # (Auto) 0.0 (0.0-0.2) th/mm3 WBC Differential Manual diff final Seg Neuts % (Manual) 26 (16-70) % Band Neuts % (Manual) 45 H (0-6) % Lymphocytes % (Manual) 5 L (9-44) % Monocytes % (Manual) 6 (0-8) % Metamyelocytes % (Man) 14 H (0-1) % Myelocytes % (Man) 3 H (0-0) % Promyelocytes % (Man) 1 H (0-0) % Abs Neuts (Manual) 8.2 H (1.8-7.7) th/mm3 Differential Comment . Toxic Granulation 1+ H (None) Toxic Vacuolation Present H (None) Platelet Estimate Normal (Normal) Platelet Morphology Normal (Normal) Haptoglobin PT (9.8-11.6) sec INR Ratio APTT (24.3-30.1) sec Puncture Site Art line Patient Temperature 98.6 O2 Saturation 97 (90-100) % ABG pH 7.24 L* (7.380-7.420) ABG pCO2 43 H (38-42) mmHg ABG pO2 209 H (61-120) mmHg ABG HCO3 18 L (22-26) mmol/L ABG O2 Content 12.0 (12.0-20.0) Vol % ABG Base Excess -8.4 L (-2-2) mmol/L ABG Methemoglobin 1.6 (0-2) % [place] Test Hemoglobin 8.4 L (12.0-16.0) G/DL Carboxyhemoglobin 0.3 (0-4) % O2 Delivery Device Ventilator Vent Setting Comment Inspired O2 100 % Critical Value Yes Sodium 143 (136-145) meq/L Potassium 3.6 D (3.5-5.1) meq/L Chloride 112 H (98-107) meq/L Carbon Dioxide 21.8 (21.0-32.0) meq/L Anion Gap 9 (5-15) meq/L BUN 21 H (7-18) mg/dL Creatinine 0.63 (0.50-1.00) mg/dL Estimated GFR Greater than 89 (>89) mL/min POC Glucose (68-110) mg/dl Random Glucose 213 H D (74-106) mg/dL Osmolality (275-295) mosm/kg Lactic Acid (0.4-2.0) mmol/L Calcium 6.4 L* D (8.5-10.1) mg/dL Prot Corrected Calcium 7.9 L (8.5-10.1) mg/dL Phosphorus 2.7 (2.5-4.9) mg/dL Magnesium 1.6 (1.5-2.5) mg/dL Total Bilirubin (0.2-1.0) mg/dL GGT (5-55) U/L AST (15-37) U/L ALT (10-53) U/L Alkaline Phosphatase (45-117) U/L Ammonia (11-32) mcmol/L Lactate Dehydrogenase (84-246) U/L Total Creatine Kinase 712 H (26-192) U/L CK-MB (CK-2) 5.5 H (0.5-3.6) ng/mL CK-MB (CK-2) % 0.8 (0.0-4.0) % Troponin I 0.14 H (0.02-0.05) ng/mL B-Natriuretic Peptide (0-100) pg/mL Total Protein 4.1 L (6.4-8.2) g/dL Albumin (3.4-5.0) g/dL Prealbumin (20-40) mg/dL TSH (0.358-3.740) uIU/mL Urine Color (Yellw/Straw) Urine Clarity (Clear) Urine pH (5.0-8.5) Ur Specific [place] (1.002-1.035) Urine Protein (Neg-Trace) mg/dL Urine Glucose (UA) (Negative) mg/dL Urine Ketones (Negative) mg/dL Urine Occult Blood (Negative) Urine Nitrate (Negative) Urine Bilirubin (Negative) Urine Urobilinogen (Less than 2) mg/dL Ur Leukocyte Esterase (Negative) Urine RBC (0-3) /hpf Urine WBC (0-5) /hpf Ur Squamous Epith Cells (0-5) /hpf Amorphous Sediment (None) /hpf Hyaline Casts (0-3) /lpf Urine Mucus (Occasional) /lpf Micro UA Comment Ur Microscopic Review Urine Culture Comments Urine Eosinophils (None Seen) /HPF Urine Osmolality (300-1300) mosm/kg Ur Random Creatinine (27-300) mg/dL Ur Random Sodium meq/L Pleural RBC (0-0) /mm3 Pleural Nuc Cells (0-10) /mm3 Pleural Neutrophils % Pleural Lymphocytes % Pleural Monocytes % Pleural Mesothelial % Pleural Other Cells % Pleural Total Protein gm/dL Pleural LDH U/L Pleural Glucose mg/dL Nasal Screen MRSA (PCR) (Negative) Salicylates (2.8-20.0) mg/dL Urine Opiates Screen (Neg) Acetaminophen (10.0-30.0) mcg/mL Ur Barbiturates Screen (Neg) Ur Amphetamines Screen (Neg) U Benzodiazepines Scrn (Neg) Urine Cocaine Screen (Neg) U Cannabinoids Screen (Neg) Serum Alcohol (0-5) mg/dL HIV 1&2 Ab/P24 Ag 4thGn (Nonreactive) 12/18/17 12/18/17 12/18/17 Range/Units 04:30 05:59 08:13 WBC (4.0-11.0) th/mm3 RBC (4.00-5.30) mil/mm3 Hgb (11.6-15.3) gm/dL Hct (35.0-46.0) % MCV (80.0-100.0) fL MCH (27.0-34.0) pg MCHC (32.0-36.0) % RDW (11.6-17.2) % Plt Count (150-450) th/mm3 MPV (7.0-11.0) fL Prelim Diff (Auto) Neut % (Auto) (16.0-70.0) % Lymph % (Auto) (9.0-44.0) % [place] % (Auto) (0.0-8.0) % Eos % (Auto) (0.0-4.0) % Baso % (Auto) (0.0-2.0) % Neut # (Auto) (1.8-7.7) th/mm3 Lymph # (Auto) (1.0-4.8) th/mm3 [place] # (Auto) (0.0-0.9) th/mm3 Eos # (Auto) (0.0-0.4) th/mm3 Baso # (Auto) (0.0-0.2) th/mm3 WBC Differential Seg Neuts % (Manual) (16-70) % Band Neuts % (Manual) (0-6) % Lymphocytes % (Manual) (9-44) % Monocytes % (Manual) (0-8) % Metamyelocytes % (Man) (0-1) % Myelocytes % (Man) (0-0) % Promyelocytes % (Man) (0-0) % Abs Neuts (Manual) (1.8-7.7) th/mm3 Differential Comment Toxic Granulation (None) Toxic Vacuolation (None) Platelet Estimate (Normal) Platelet Morphology (Normal) Haptoglobin PT (9.8-11.6) sec INR Ratio APTT (24.3-30.1) sec Puncture Site Patient Temperature O2 Saturation (90-100) % ABG pH (7.380-7.420) ABG pCO2 (38-42) mmHg ABG pO2 (61-120) mmHg ABG HCO3 (22-26) mmol/L ABG O2 Content (12.0-20.0) Vol % ABG Base Excess (-2-2) mmol/L ABG Methemoglobin (0-2) % [place] Test Hemoglobin (12.0-16.0) G/DL Carboxyhemoglobin (0-4) % O2 Delivery Device Vent Setting Inspired O2 % Critical Value Sodium (136-145) meq/L Potassium (3.5-5.1) meq/L Chloride (98-107) meq/L Carbon Dioxide (21.0-32.0) meq/L Anion Gap (5-15) meq/L BUN (7-18) mg/dL Creatinine (0.50-1.00) mg/dL Estimated GFR (>89) mL/min POC Glucose 198 H 223 H (68-110) mg/dl Random Glucose (74-106) mg/dL Osmolality (275-295) mosm/kg Lactic Acid (0.4-2.0) mmol/L Calcium (8.5-10.1) mg/dL Prot Corrected Calcium (8.5-10.1) mg/dL Phosphorus (2.5-4.9) mg/dL Magnesium (1.5-2.5) mg/dL Total Bilirubin (0.2-1.0) mg/dL GGT (5-55) U/L AST (15-37) U/L ALT (10-53) U/L Alkaline Phosphatase (45-117) U/L Ammonia (11-32) mcmol/L Lactate Dehydrogenase (84-246) U/L Total Creatine Kinase (26-192) U/L CK-MB (CK-2) (0.5-3.6) ng/mL CK-MB (CK-2) % (0.0-4.0) % Troponin I (0.02-0.05) ng/mL B-Natriuretic Peptide 402 H (0-100) pg/mL Total Protein (6.4-8.2) g/dL Albumin (3.4-5.0) g/dL Prealbumin (20-40) mg/dL TSH (0.358-3.740) uIU/mL Urine Color (Yellw/Straw) Urine Clarity (Clear) Urine pH (5.0-8.5) Ur Specific [place] (1.002-1.035) Urine Protein (Neg-Trace) mg/dL Urine Glucose (UA) (Negative) mg/dL Urine Ketones (Negative) mg/dL Urine Occult Blood (Negative) Urine Nitrate (Negative) Urine Bilirubin (Negative) Urine Urobilinogen (Less than 2) mg/dL Ur Leukocyte Esterase (Negative) Urine RBC (0-3) /hpf Urine WBC (0-5) /hpf Ur Squamous Epith Cells (0-5) /hpf Amorphous Sediment (None) /hpf Hyaline Casts (0-3) /lpf Urine Mucus (Occasional) /lpf Micro UA Comment Ur Microscopic Review Urine Culture Comments Urine Eosinophils (None Seen) /HPF Urine Osmolality (300-1300) mosm/kg Ur Random Creatinine (27-300) mg/dL Ur Random Sodium meq/L Pleural RBC (0-0) /mm3 Pleural Nuc Cells (0-10) /mm3 Pleural Neutrophils % Pleural Lymphocytes % Pleural Monocytes % Pleural Mesothelial % Pleural Other Cells % Pleural Total Protein gm/dL Pleural LDH U/L Pleural Glucose mg/dL Nasal Screen MRSA (PCR) (Negative) Salicylates (2.8-20.0) mg/dL Urine Opiates Screen (Neg) Acetaminophen (10.0-30.0) mcg/mL Ur Barbiturates Screen (Neg) Ur Amphetamines Screen (Neg) U Benzodiazepines Scrn (Neg) Urine Cocaine Screen (Neg) U Cannabinoids Screen (Neg) Serum Alcohol (0-5) mg/dL HIV 1&2 Ab/P24 Ag 4thGn (Nonreactive) 12/18/17 12/18/17 12/18/17 Range/Units 10:50 12:07 12:20 WBC (4.0-11.0) th/mm3 RBC (4.00-5.30) mil/mm3 Hgb (11.6-15.3) gm/dL Hct (35.0-46.0) % MCV (80.0-100.0) fL MCH (27.0-34.0) pg MCHC (32.0-36.0) % RDW (11.6-17.2) % Plt Count (150-450) th/mm3 MPV (7.0-11.0) fL Prelim Diff (Auto) Neut % (Auto) (16.0-70.0) % Lymph % (Auto) (9.0-44.0) % [place] % (Auto) (0.0-8.0) % Eos % (Auto) (0.0-4.0) % Baso % (Auto) (0.0-2.0) % Neut # (Auto) (1.8-7.7) th/mm3 Lymph # (Auto) (1.0-4.8) th/mm3 [place] # (Auto) (0.0-0.9) th/mm3 Eos # (Auto) (0.0-0.4) th/mm3 Baso # (Auto) (0.0-0.2) th/mm3 WBC Differential Seg Neuts % (Manual) (16-70) % Band Neuts % (Manual) (0-6) % Lymphocytes % (Manual) (9-44) % Monocytes % (Manual) (0-8) % Metamyelocytes % (Man) (0-1) % Myelocytes % (Man) (0-0) % Promyelocytes % (Man) (0-0) % Abs Neuts (Manual) (1.8-7.7) th/mm3 Differential Comment Toxic Granulation (None) Toxic Vacuolation (None) Platelet Estimate (Normal) Platelet Morphology (Normal) Haptoglobin PT (9.8-11.6) sec INR Ratio APTT (24.3-30.1) sec Puncture Site Art line Patient Temperature 98.6 O2 Saturation 95 (90-100) % ABG pH 7.24 L* (7.380-7.420) ABG pCO2 50 H (38-42) mmHg ABG pO2 89 (61-120) mmHg ABG HCO3 20 L (22-26) mmol/L ABG O2 Content 11.3 L (12.0-20.0) Vol % ABG Base Excess -5.9 L (-2-2) mmol/L ABG Methemoglobin 1.5 (0-2) % [place] Test Present Hemoglobin 8.4 L (12.0-16.0) G/DL Carboxyhemoglobin 0.5 (0-4) % O2 Delivery Device Ventilator Vent Setting Prvc24/350/0.85/+5 Inspired O2 60 % Critical Value Yes Sodium (136-145) meq/L Potassium (3.5-5.1) meq/L Chloride (98-107) meq/L Carbon Dioxide (21.0-32.0) meq/L Anion Gap (5-15) meq/L BUN (7-18) mg/dL Creatinine (0.50-1.00) mg/dL Estimated GFR (>89) mL/min POC Glucose 198 H (68-110) mg/dl Random Glucose (74-106) mg/dL Osmolality (275-295) mosm/kg Lactic Acid (0.4-2.0) mmol/L Calcium (8.5-10.1) mg/dL Prot Corrected Calcium (8.5-10.1) mg/dL Phosphorus (2.5-4.9) mg/dL Magnesium (1.5-2.5) mg/dL Total Bilirubin (0.2-1.0) mg/dL GGT (5-55) U/L AST (15-37) U/L ALT (10-53) U/L Alkaline Phosphatase (45-117) U/L Ammonia (11-32) mcmol/L Lactate Dehydrogenase (84-246) U/L Total Creatine Kinase 522 H (26-192) U/L CK-MB (CK-2) 4.6 H (0.5-3.6) ng/mL CK-MB (CK-2) % 0.9 (0.0-4.0) % Troponin I (0.02-0.05) ng/mL B-Natriuretic Peptide (0-100) pg/mL Total Protein (6.4-8.2) g/dL Albumin (3.4-5.0) g/dL Prealbumin (20-40) mg/dL TSH (0.358-3.740) uIU/mL Urine Color (Yellw/Straw) Urine Clarity (Clear) Urine pH (5.0-8.5) Ur Specific [place] (1.002-1.035) Urine Protein (Neg-Trace) mg/dL Urine Glucose (UA) (Negative) mg/dL Urine Ketones (Negative) mg/dL Urine Occult Blood (Negative) Urine Nitrate (Negative) Urine Bilirubin (Negative) Urine Urobilinogen (Less than 2) mg/dL Ur Leukocyte Esterase (Negative) Urine RBC (0-3) /hpf Urine WBC (0-5) /hpf Ur Squamous Epith Cells (0-5) /hpf Amorphous Sediment (None) /hpf Hyaline Casts (0-3) /lpf Urine Mucus (Occasional) /lpf Micro UA Comment Ur Microscopic Review Urine Culture Comments Urine Eosinophils (None Seen) /HPF Urine Osmolality (300-1300) mosm/kg Ur Random Creatinine (27-300) mg/dL Ur Random Sodium meq/L Pleural RBC (0-0) /mm3 Pleural Nuc Cells (0-10) /mm3 Pleural Neutrophils % Pleural Lymphocytes % Pleural Monocytes % Pleural Mesothelial % Pleural Other Cells % Pleural Total Protein gm/dL Pleural LDH U/L Pleural Glucose mg/dL Nasal Screen MRSA (PCR) (Negative) Salicylates (2.8-20.0) mg/dL Urine Opiates Screen (Neg) Acetaminophen (10.0-30.0) mcg/mL Ur Barbiturates Screen (Neg) Ur Amphetamines Screen (Neg) U Benzodiazepines Scrn (Neg) Urine Cocaine Screen (Neg) U Cannabinoids Screen (Neg) Serum Alcohol (0-5) mg/dL HIV 1&2 Ab/P24 Ag 4thGn (Nonreactive) Imaging Data Radiologist's impression: Chest X-Ray 12/17/17 00:00 CONCLUSION: 1. Persistent bilateral airspace infiltrates. 2. Interval placement of a right-sided thoracostomy tube. There does appear to be an apical lateral 1.5 cm right pneumothorax. 3. Extensive subcutaneous and deep tissue emphysematous changes about the right hemithorax. Chest X-Ray 12/17/17 00:00 CONCLUSION: Right-sided chest tube with slight increase in right pneumothorax compared with earlier exam. Slight increase in left basilar airspace disease since earlier exam. Slight worsening of subcutaneous air with extension into the left hemithorax and neck. Chest X-Ray 12/17/17 08:02 CONCLUSION: Satisfactory support line and tube positioning. Bilateral infiltrates. Head CT 12/17/17 08:02 CONCLUSION: 1. 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 2. Otherwise negative. . Abdomen/Pelvis CT 12/17/17 10:45 CONCLUSION: 1. Moderate diffuse colonic wall thickening exaggerated by lack of colonic distention. This may be due to low-protein state/edema. However, differential considerations include infectious and inflammatory colitis. 2. Moderate-sized right hydropneumothorax with airspace disease in the lung bases as described on chest CT. 3. Additional ancillary findings, as above. Chest CT 12/17/17 10:45 CONCLUSION: 1. Small to moderate-sized right-sided hydropneumothorax. 2. Right lower lobe consolidation with air bronchograms. Differential considerations include aspiration and lobar pneumonia. 3. Patchy diffuse groundglass opacities most prominently in the upper lobes bilaterally. Differential considerations include bronchopneumonia, atypical infection and atypical pulmonary edema. 4. Mild mediastinal adenopathy, likely reactive. Chest X-Ray 12/17/17 22:00 CONCLUSION: Placement of second right-sided chest tube with near complete resolution of previous right pneumothorax. Chest X-Ray 12/18/17 05:00 CONCLUSION: 1. Stable bilateral multifocal consolidative infiltrates. 2. 2 right chest drainage tubes in place; no pneumothorax seen. Discharge Plan Discharge Disposition Patient Disposition: 30 Still Patient Discharge Details Diagnosis: Respiratory failure, Hypoglycemia, Pneumonia, Septic shock Physicians Team ED Provider: Harsh Sehlton Primary Care Provider: UNKNOWN, Attending Provider: Sim Garces Other Providers: Rama Interiano Status ED Status: Left Department Discharge Information Discharge Date/Time: 12/17/17 14:08
[2017-12-18 18:23] LABS: CKMB Percent 1.1 % (0.0-4.0); Creatine Kinase MB 3.9 ng/mL (0.5-3.6)
--- NOTE | 2017-12-18 18:29 | P.PNID ---
Subjective Remarks: much improved now with [address] WBC down, but extreme bandemia 45 % FiO2 down to 60%, PEEP down to 5 On Levaphed @ 3 mcgs, vasopressing 4 [id number] Plerau fluid results noted: LDH 3681 clx NGTD growing GNB fro sputum growing GPC from blood clx + c.diff DNA , tox negative Antibiotics: vanco IV vanco PO flagyl cefepime azithro Allergies/Adverse Reactions: Allergies No Known Allergies Allergy (Verified 12/13/17 08:04) Objective Vital Signs 12/17/17 19:00 12/17/17 20:00 12/17/17 20:40 Temperature 98.6 F Pulse Rate 87 87 129 H Respiratory Rate 25 H 25 H 30 H Blood Pressure Pulse Oximetry 97 96 94 L 12/17/17 21:00 12/17/17 22:00 12/17/17 23:00 Temperature Pulse Rate 133 H 126 H 116 H Respiratory Rate 30 H 32 H 25 H Blood Pressure Pulse Oximetry 95 95 98 12/17/17 23:53 12/18/17 00:00 12/18/17 01:00 Temperature 100.3 F H Pulse Rate 108 H 94 H Respiratory Rate 30 H 28 H 25 H Blood Pressure Pulse Oximetry 97 97 97 12/18/17 02:00 12/18/17 03:00 12/18/17 03:19 Temperature Pulse Rate 91 H 91 H 87 Respiratory Rate 25 H 25 H 26 H Blood Pressure Pulse Oximetry 96 98 98 12/18/17 04:00 12/18/17 05:00 12/18/17 06:00 Temperature 98.7 F Pulse Rate 86 87 88 Respiratory Rate 25 H 24 24 Blood Pressure Pulse Oximetry 99 97 96 12/18/17 08:00 12/18/17 08:39 12/18/17 10:00 Temperature 97.6 F Pulse Rate 84 87 Respiratory Rate 21 24 24 Blood Pressure 112/61 Pulse Oximetry 95 94 L 12/18/17 10:59 12/18/17 12:00 12/18/17 14:00 Temperature Pulse Rate 101 H 87 Respiratory Rate 27 H Blood Pressure Pulse Oximetry 92 L 12/18/17 16:00 12/18/17 17:04 Temperature Pulse Rate 86 87 Respiratory Rate 27 H Blood Pressure Pulse Oximetry 92 L Intake & Output 12/17/17 12/18/1718 18:59 06:59 18:59 Intake Total 4050 / 4050 2822.5 / 2822.5 1710 / 1710 Output Total 1620 / 1620 Balance 4050 / 4050 1202.5 / 1202.5 1710 / 1710 Weight 72.7 kg 76.2 kg Intake: IV 4050 / 4050 2762.5 / 2762.5 1710 / 1710 D50W Syringe 50 ML @ 0 mls/hr . 50 / 50 ROUTE .STK-MED ONE Rx#:[id number] Versed Inj 50 mg In 50 ml @ 2 50 / 50 100 / 100 50 / 50 MG/HR 2 mls/hr IV.CONT TITRATE PRN Rx#:[id number] Neosynephrine Inj 40 MG In D5W 500 / 500 Inj 496 ML @ 50 MCG/MIN 37.5 mls/hr IV.CONT TITRATE PRN Rx#: [id number] NS Inj 1,000 ML @ 125 mls/hr IV 1000 / 1000 .CONT .Q8H [facility] Rx#:[id number] Sodium Bicarbonate 8.4% Inj 150 1000 / 1000 MEQ In D5W Inj 850 ML @ 84 mls /hr IV.CONT .[id number] [facility] Rx#: [id number] Pitressin Inj 40 UNIT In D5W 100 / 100 Inj 98 ML @ 0.04 UNITS/MIN 6 mls/hr IV.CONT CONT [facility] Rx#: [id number] Alburx 5% Inj 500 ML @ 250 mls/ 500 / 500 hr IV.SIG STAT STA Rx#:[id number] Azithromycin Inj 500 MG In NS 250 / 250 250 / 250 Inj 250 ML @ 250 mls/hr IV.SIG Q24H [facility] Rx#:[id number] Calcium Chloride Inj 1 GM In NS 110 / 110 Inj 100 ML @ 110 mls/hr IV.SIG ONCE ONE Rx#:[id number] Maxipime Inj 1,000 MG In NS Inj 100 / 100 200 / 200 100 / 100 100 ML @ 200 mls/hr IV.SIG Q8H [facility] Rx#:[id number] LR 1000 mL Inj 1,000 ML @ Wide 1000 / 1000 Open IV.SIG BOLUS ONE Rx#: [id number] Levophed-Dextrose 4 mg/250 ml 250 / 250 250 / 250 Drip 4 mg In 250 ml @ 2 MCG/MIN 7.5 mls/hr IV.SIG TITRATE PRN Rx#:[id number] Zosyn 3.375 GM Premix 50 ML @ 50 / 50 100 mls/hr IV.SIG ONCE ONE Rx#: [id number] NS Inj 1,000 ML @ Wide Open IV. 1000 / 1000 SIG BOLUS [facility] Rx#:[id number] NS Inj 500 ML @ Wide Open IV. 500 / 500 SIG BOLUS [facility] Rx#:[id number] Vancomycin Inj 1 gm In 200 ml @ 200 / 200 200 mls/hr IV.SIG ONCE ONE Rx# :[id number] Vancomycin Inj 1,250 MG In NS 262.5 / 262.5 Inj 250 ML @ 250 mls/hr IV.SIG Q24H [facility] Rx#:[id number] fentaNYL 10 mcg/mL Premix Drip 250 / 250 2,500 mcg In 250 ml @ 50 MCG/HR 5 mls/hr IV.SIG TITRATE PRN Rx #:[id number] Flagyl 500 MG Inj 100 ML @ 100 100 / 100 200 / 200 100 / 100 mls/hr IV.SIG Q6HR [facility] Rx#: [id number] Tube Irrigant 60 / 60 Output: Urine 500 / 500 Urine Amount (Catheter) 250 / 250 Indwelling Urethral Catheter 250 / 250 Gastric Drainage 300 / 300 Oral 300 / 300 Chest Tube Drainage 570 / 570 #1 Right Upper 350 / 350 #2 Right 220 / 220 Other: Bladder Irrigation Fluid - Amount Instilled Indwelling Urethral Catheter 0 Bladder Irrigation Fluid - Amount Drained Indwelling Urethral Catheter 300 Date of Last Bowel Movement 12/17/17 12/17/17 12/17/17 # Bowel Movements 1 Weight On Admission 72.7 kg 12/17/17 15:55 Fluid - Pleural fluid Gram Stain - Final 12/17/17 15:55 Fluid - Pleural fluid Body Fluid Culture - Preliminary No growth in 24 hours 12/17/17 15:54 Sputum - Endotracheal Gram Stain - Final 12/17/17 15:54 Sputum - Endotracheal Sputum Culture - Preliminary gram negative rods 12/17/17 08:10 Blood - Peripheral Aerobic Blood Culture - Preliminary No growth in 1 day 12/17/17 08:10 Blood - Peripheral Anaerobic Blood Culture - Preliminary gram positive cocci 12/17/17 08:24 Blood - Peripheral Aerobic Blood Culture - Preliminary No growth in 1 day 12/17/17 08:24 Blood - Peripheral Anaerobic Blood Culture - Preliminary No growth in 1 day 12/17/17 15:55 Stool Stool for WBCs - Final Few WBC's 12/17/17 13:54 Urine - Catheterized Urine Streptococcus pneumoniae Antigen ( M - Final Presumptive negative for streptococcus pneumoniae antigen, suggesting no current or recent infection. Infection due to Streptococcus pneumoniae cannot be ruled out since the antigen present in the sample may be below the detection limit of the test. 12/17/17 13:54 Urine - Catheterized Urine Legionella Antigen - Final Presumptive negative for Legionella pneumophila serogroup 1 antigen in urine, suggesting no recent or recurrent infection. Infection due to Legionella cannot be ruled out since other serogroups and species may cause disease, antigen may not be present in urine in early infection, and the level of antigen present in the urine may be below the detection limit of the test. 12/17/17 15:55 Nasal Aspirate Influenza Types A,B Antigen - Final Negative for FLU A and B antigen Infection due to influenza A or B cannot be ruled out since the antigen present in the sample may be below the detection limit of the test. Lab - Hematology Results 12/17/17 12/17/17 12/17/17 08:10 11:15 11:35 WBC 21.2 H RBC 3.36 L Hgb 10.9 L Hct 34.5 L MCV 102.8 H MCH 32.3 MCHC 31.4 L RDW 16.5 Plt Count 368 MPV 9.4 Prelim Diff (Auto) Slide review pending Neut % (Auto) 83.1 H Lymph % (Auto) 7.3 L [place] % (Auto) 9.5 H Eos % (Auto) 0.0 Baso % (Auto) 0.1 Neut # (Auto) 17.6 H Lymph # (Auto) 1.6 [place] # (Auto) 2.0 H Eos # (Auto) 0.0 Baso # (Auto) 0.0 WBC Differential Manual diff final Seg Neuts % (Manual) 50 Band Neuts % (Manual) 30 H Lymphocytes % (Manual) 7 L Monocytes % (Manual) 5 Metamyelocytes % (Man) 6 H Myelocytes % (Man) 2 H Promyelocytes % (Man) Abs Neuts (Manual) 18.7 H Differential Comment . Toxic Granulation 1+ H Toxic Vacuolation Present H Platelet Estimate Normal Platelet Morphology Normal Haptoglobin Cancelled 375 H 12/18/17 04:30 WBC 9.2 D RBC 2.64 L Hgb 8.7 L D Hct 25.7 L MCV 97.1 D MCH 32.8 MCHC 33.8 RDW 15.4 Plt Count 244 D MPV 9.4 Prelim Diff (Auto) Slide review pending Neut % (Auto) 90.1 H Lymph % (Auto) 5.3 L [place] % (Auto) 4.1 Eos % (Auto) 0.3 Baso % (Auto) 0.2 Neut # (Auto) 8.3 H Lymph # (Auto) 0.5 L [place] # (Auto) 0.4 Eos # (Auto) 0.0 Baso # (Auto) 0.0 WBC Differential Manual diff final Seg Neuts % (Manual) 26 Band Neuts % (Manual) 45 H Lymphocytes % (Manual) 5 L Monocytes % (Manual) 6 Metamyelocytes % (Man) 14 H Myelocytes % (Man) 3 H Promyelocytes % (Man) 1 H Abs Neuts (Manual) 8.2 H Differential Comment . Toxic Granulation 1+ H Toxic Vacuolation Present H Platelet Estimate Normal Platelet Morphology Normal Haptoglobin Lab - Chemistry Results 12/17/17 12/17/17 12/17/17 08:10 08:40 10:19 Sodium 145 Potassium 5.4 H Chloride 117 H Carbon Dioxide 15.6 L Anion Gap 12 BUN 22 H Creatinine 1.55 H Estimated GFR 34 L POC Glucose 117 H Random Glucose 72 L Osmolality Lactic Acid 6.0 H* Calcium 7.3 L* Prot Corrected Calcium 8.7 Phosphorus Magnesium Total Bilirubin 0.1 L GGT AST 62 H ALT 17 Alkaline Phosphatase 71 Ammonia Lactate Dehydrogenase Total Creatine Kinase 902 H CK-MB (CK-2) 9.5 H CK-MB (CK-2) % 1.1 Troponin I 0.09 H B-Natriuretic Peptide Total Protein 4.6 L Albumin 1.6 L Prealbumin TSH 0.402 12/17/17 12/17/17 12/17/17 11:15 11:15 11:35 Sodium Potassium Chloride Carbon Dioxide Anion Gap BUN Creatinine Estimated GFR POC Glucose Random Glucose Osmolality 304 H Lactic Acid 4.6 H* Calcium Prot Corrected Calcium Phosphorus Magnesium Total Bilirubin GGT AST ALT Alkaline Phosphatase Ammonia Lactate Dehydrogenase 480 H Total Creatine Kinase 1093 H CK-MB (CK-2) 10 H CK-MB (CK-2) % 0.9 Troponin I B-Natriuretic Peptide Total Protein Albumin Prealbumin [facility] 12/17/17 12/17/17 12/17/17 11:35 11:35 15:41 Sodium Potassium Chloride Carbon Dioxide Anion Gap BUN Creatinine Estimated GFR POC Glucose Random Glucose Osmolality Lactic Acid Calcium Prot Corrected Calcium Phosphorus Magnesium Total Bilirubin GGT AST ALT Alkaline Phosphatase Ammonia Lactate Dehydrogenase Total Creatine Kinase 1177 H CK-MB (CK-2) 10.5 H CK-MB (CK-2) % 0.9 Troponin I 0.14 H B-Natriuretic Peptide 375 H Total Protein Albumin Prealbumin [address] [facility] 12/17/17 12/17/17 12/17/17 15:41 15:41 20:08 Sodium Potassium Chloride Carbon Dioxide Anion Gap BUN Creatinine Estimated GFR POC Glucose 106 Random Glucose Osmolality Lactic Acid Calcium Prot Corrected Calcium Phosphorus Magnesium Total Bilirubin GGT 7 AST ALT Alkaline Phosphatase Ammonia 70 H Lactate Dehydrogenase Total Creatine Kinase CK-MB (CK-2) CK-MB (CK-2) % Troponin I B-Natriuretic Peptide Total Protein Albumin Prealbumin [facility] 12/17/17 12/18/17 12/18/17 22:17 00:19 01:57 Sodium Potassium Chloride Carbon Dioxide Anion Gap BUN Creatinine Estimated GFR POC Glucose 101 103 133 H Random Glucose Osmolality Lactic Acid Calcium Prot Corrected Calcium Phosphorus Magnesium Total Bilirubin GGT AST ALT Alkaline Phosphatase Ammonia Lactate Dehydrogenase Total Creatine Kinase CK-MB (CK-2) CK-MB (CK-2) % Troponin I B-Natriuretic Peptide Total Protein Albumin Prealbumin [facility] 12/18/17 12/18/17 12/18/17 03:53 03:54 04:30 Sodium 143 Potassium 3.6 D Chloride 112 H Carbon Dioxide 21.8 Anion Gap 9 BUN 21 H Creatinine 0.63 Estimated GFR Greater than 89 POC Glucose 186 H 159 H Random Glucose 213 H D Osmolality Lactic Acid Calcium 6.4 L* D Prot Corrected Calcium 7.9 L Phosphorus 2.7 Magnesium 1.6 Total Bilirubin GGT AST ALT Alkaline Phosphatase Ammonia Lactate Dehydrogenase Total Creatine Kinase 712 H CK-MB (CK-2) 5.5 H CK-MB (CK-2) % 0.8 Troponin I 0.14 H B-Natriuretic Peptide Total Protein 4.[address] [facility] 12/18/17 12/18/17 12/18/17 04:30 05:59 08:13 Sodium Potassium Chloride Carbon Dioxide Anion Gap BUN Creatinine Estimated GFR POC Glucose 198 H 223 H Random Glucose Osmolality Lactic Acid Calcium Prot Corrected Calcium Phosphorus Magnesium Total Bilirubin GGT AST ALT Alkaline Phosphatase Ammonia Lactate Dehydrogenase Total Creatine Kinase CK-MB (CK-2) CK-MB (CK-2) % Troponin I B-Natriuretic Peptide 402 H Total Protein Albumin Prealbumin TSH 12/18/17 12/18/17 12/18/17 10:50 12:07 17:21 Sodium Potassium Chloride Carbon Dioxide Anion Gap BUN Creatinine Estimated GFR POC Glucose 198 H Random Glucose Osmolality Lactic Acid Calcium Prot Corrected Calcium Phosphorus Magnesium Total Bilirubin GGT AST ALT Alkaline Phosphatase Ammonia Lactate Dehydrogenase Total Creatine Kinase 522 H 359 H CK-MB (CK-2) 4.6 H CK-MB (CK-2) % 0.9 Troponin I B-Natriuretic Peptide Total Protein Albumin Prealbumin TSH Imaging: ITS Impressions Head CT 12/17/17 08:02 CONCLUSION: 1. 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 2. Otherwise negative. . Abdomen/Pelvis CT 12/17/17 10:45 CONCLUSION: 1. Moderate diffuse colonic wall thickening exaggerated by lack of colonic distention. This may be due to low-protein state/edema. However, differential considerations include infectious and inflammatory colitis. 2. Moderate-sized right hydropneumothorax with airspace disease in the lung bases as described on chest CT. 3. Additional ancillary findings, as above. Chest CT 12/17/17 10:45 CONCLUSION: 1. Small to moderate-sized right-sided hydropneumothorax. 2. Right lower lobe consolidation with air bronchograms. Differential considerations include aspiration and lobar pneumonia. 3. Patchy diffuse groundglass opacities most prominently in the upper lobes bilaterally. Differential considerations include bronchopneumonia, atypical infection and atypical pulmonary edema. 4. Mild mediastinal adenopathy, likely reactive. Chest X-Ray 12/18/17 05:00 CONCLUSION: 1. Stable bilateral multifocal consolidative infiltrates. 2. 2 right chest drainage tubes in place; no pneumothorax seen. Physical Exam: GENERAL: sedated int'd on mech vent'n SKIN: Warm and dry. NO rash HEAD: Atraumatic. Normocephalic. EYES: Pupils equal and round. No scleral icterus. No injection or drainage. ENT: No nasal bleeding or discharge. Mucous membranes pink and moist. NECK: Trachea midline. No JVD. CARDIOVASCULAR: Regular rate and rhythm. RESPIRATORY: No accessory muscle use. + rhocnhi to auscultation. Breath sounds decreased bilaterally. CT x 2 R side with serosang d/c GASTROINTESTINAL: Abdomen soft, non-tender, nondistended. Hepatic and splenic margins not palpable. MUSCULOSKELETAL: Extremities without clubbing, cyanosis, or edema. No obvious deformities. NEUROLOGICAL: sedated, [id number] PSYCHIATRIC: unable to assess Assessment and Plan - Plan GPC bacteremia PNA, GNB wsith parapneumonic effusion/ early empyema R complicated fluid collection pneumohydrothorax sp CTx 2 placements -on vent 60%FiO2/5 PEEP Acute VDRF recent pseudomembranous colitis - stool now formed, bowell thickening on CT + DNA sepsis hemodynamically unstable, remains on pressors abx : azithro, cefepime, vanco cont flagyl cont oral vanco for c.diff fu P clx dw Dr Mili hermosillo RN
[2017-12-18] MEDS: QUEtiapine 25 MG Tablet PO SCH (21:47)
[2017-12-18 22:24] LABS: ABG Base Excess -3.2 mmol/L (-2-2); ABG PCO2 48 mmHg (38-42); ABG PO2 73 mmHG (61-120)
[2017-12-19 00:28] LABS: Anion Gap 8 meq/L (5-15); Blood Urea Nitrogen 22 mg/dL (7-18); Calcium 6.4 mg/dL (8.5-10.1); Chloride 109 meq/L (98-107); Creatine Kinase 315 U/L (26-192); Glomerular Filtration Rate Greater Than 89 mL/min (>89); Glucose,Random 128 mg/dL (74-106); Magnesium 1.4 mg/dL (1.5-2.5); Phosphorus 1.9 mg/dL (2.5-4.9); Potassium 3.4 meq/L (3.5-5.1); Sodium 143 meq/L (136-145)
[2017-12-19] MEDS: Sod Chloride 0.9% Inj 1,000 ML IV.CONT SCH ×3 (00:39→19:15)
[2017-12-19] MEDS: Sodium Bicarbonate 8.4% Inj 150 MEQ in Dextrose 5% in Water Inj 850 ML IV.CONT SCH ×4 (00:41→10:30)
[2017-12-19] MEDS: Oral Hygiene Kit OROPHARYNG SCH ×4 (00:41→15:23)
[2017-12-19 00:47] LABS: Calcium-Albumin Corrected 7.9 mg/dL (8.5-10.1)
[2017-12-19 00:48] LABS: Total Protein 4.2 g/dL (6.4-8.2)
[2017-12-19 01:06] LABS: CKMB Percent 1.1 % (0.0-4.0); Creatine Kinase MB 3.6 ng/mL (0.5-3.6)
[2017-12-19] MEDS: Potassium Chloride 25 MEQ Effervescent Tablet PO PRN (01:30)
[2017-12-19] MEDS: Vasopressin Inj 40 UNIT in Dextrose 5% in Water Inj 98 ML IV.CONT SCH ×4 (03:03→20:18)
[2017-12-19] MEDS: fentaNYL 10 mcg/mL Premix Drip 2,500 MCG/250 ML BAG IV.SIG PRN ×2 (04:25→20:17)
[2017-12-19] MEDS: Chlorhexidine Gluconate 2% 1 Pack (2 Cloths) TOPICAL SCH (04:26)
--- NOTE | 2017-12-19 04:38 | XR ---
EXAM DATE: 12/19/2017 3:56 AM EDT AGE/SEX: 62 years / Female INDICATIONS: Shortness of breath, possible pulmonary disease. CLINICAL DATA: This is the patient's subsequent encounter. Patient reports that signs and symptoms h ave been present for 1 week and indicates a pain score of Nonresponsive. MEDICAL/SURGICAL HISTORY: Hypertension. None. COMPARISON: C, CHEST 1V SINGLE AP, 12/18/2017. . FINDINGS: There is absent lung markings in the right pulmonary apex and a thin pleural reflection suggesting in terval reaccumulation of a 1.2 cm right pneumothorax, and there also is a lucency tracking along the right heart border measuring 1.7 cm in width. The 2 right chest drainage tubes are unchanged in posit ion. ET tube is well above the neli. Gastric tube traverses the [id number]. Patchy partially con solidative infiltrates in both lungs are similar in severity to prior. Decreasing subcutaneous emphys arabella about the left and right chest wall. CONCLUSION: Findings suggest reaccumulation of right pneumothorax with both right-sided chest tubes unchanged in position. Electronically signed by: Michael Hicks MD 12/19/2017 4:36 AM EDT
[2017-12-19 05:14] LABS: ABG Base Excess -1.7 mmol/L (-2-2); ABG PCO2 48 mmHg (38-42); ABG PO2 77 mmHG (61-120)
[2017-12-19 05:24] LABS: Baso % (Auto) 0.1 % (0.0-2.0); Hematocrit 22.9 % (35.0-46.0); Lymph # (Auto) 0.5 th/mm3 (1.0-4.8); Lymph % (Auto) 4.9 % (9.0-44.0); Mean Corpuscular Hemoglobin 33.3 pg (27.0-34.0); Mean Corpuscular Volume 95.2 fL (80.0-100.0); Mean Platelet Volume 9.4 fL (7.0-11.0); Mono # (Auto) 0.3 th/mm3 (0.0-0.9); Mono % (Auto) 3.2 % (0.0-8.0); Neut # (Auto) 9.8 th/mm3 (1.8-7.7); Neut % (Auto) 91.8 % (16.0-70.0); Platelet Count 219 th/mm3 (150-450); Red Cell Distribution Width 15.2 % (11.6-17.2); White Blood Count 10.6 th/mm3 (4.0-11.0)
[2017-12-19] MEDS: Hydrocortisone Sod Succinate 100 MG Vial IV.PUSH SCH ×3 (05:26→21:16)
[2017-12-19] MEDS: Vancomycin Inj 1,250 MG in Sodium Chlor 0.9% Inj 250 ML IV.SIG SCH (05:27)
[2017-12-19] MEDS: Heparin - SQ 10,000 UNITS/ML Vial SQ SCH ×3 (05:27→21:16)
[2017-12-19 06:17] LABS: CKMB Percent 1.2 % (0.0-4.0); Creatine Kinase MB 3.2 ng/mL (0.5-3.6)
[2017-12-19] MEDS: Midazolam 50 MG/50 ML Inj 50 MG/50 ML BAG IV.CONT PRN ×2 (06:49→15:23)
[2017-12-19 07:49] LABS: Potassium 3.4 meq/L (3.5-5.1)
[2017-12-19 07:55] LABS: Phosphorus 1.6 mg/dL (2.5-4.9)
--- NOTE | 2017-12-19 09:17 | MG ---
cc: Joce Crews MD EEG# [id number] INDICATION: Lacunar type in the right thalamus, stroke. MEDICATION: Fentanyl, Versed, Depakote, Seroquel. DESCRIPTION: Diffuse 5-6 Hz slowing is noted. Recording is synchronous and symmetric. No epileptiform or seizure activity is seen or may be some slight sleep activity is noted. Some vertex sharp waves. Photic stimulation is performed without significant posterior driving. IMPRESSION: Diffuse slowing consistent with a moderate diffuse encephalopathy, could be medication effect. No hemisphere asymmetries are noted. No seizure activity is seen. Joce Crews MD DJM/lewis , 08:48 AM , 08:51 AM
--- NOTE | 2017-12-19 09:41 | P.CON ---
History of Present Illness Service: Cardiothoracic surgery Consult date: 12/19/17 Requesting Physician: Ray Joseph Reason for Consult: Persistent pneumothorax Primary Care Provider: UNKNOWN History of Present Illness: 62-year-old female with multiple recent admissions for altered mental status, shortness of breath, hypertension as well as colitis. She was most recent recently admitted this time for altered mental status and hypotension. Was noted to be in septic shock and was intubated and mechanically ventilated on multiple inotropic support. She is also noted to have a right hydropneumothorax for which she has undergone 2 chest tubes placement with continued pneumothorax in the right and active air leak from 1 of the chest tubes. I am now be consulted for evaluation and management of the chest tubes with active air leak and pneumothorax. Again she is intubated and mechanically ventilated on maximal ventilatory and inotropic support. Review of Systems All other systems reviewed negative except as stated in HPI, unobtainable due to endotracheal tube PMFSH - History History Provided By: Family Member, Medical Record, Bilingual [employer] / EMT - Medical History Medical History: Medical History (Last Reviewed 12/19/17 @ 08:03 by Jenni Godinez) Chronic pain HTN (hypertension) Hyperlipidemia MDRO (multiple drug resistant organisms) resistance Onset Date: ~12/13/17 - Surgical History Surgical History: Surgical History (Last Reviewed 12/19/17 @ 08:03 by Jenni Godinez) Previous back surgery - Family History Family History: Family History (Last Reviewed 12/18/17 @ 06:05 by Rama Interiano MD) Father Colon cancer - Tobacco History Second Hand Smoke Exposure: Yes Smoking Status: Unknown if ever smoked Tobacco Type: Cigarettes Packs Per Day: 0.5 - Alcohol History How Often Do You Have a Drink Containing Alcohol: Unable to Obtain - Substance Use History Substance History: No History of Abuse - Travel History Recent Travel in the [place] Within the Last 8 Weeks: No Recent Travel Out of the Country Within the Last 8 Weeks: No - Immunization History Tetanus Immunization: Unable to Assess Medications and Allergies Active Medications: Active Medications Acetaminophen (Tylenol Liq) 650 mg NG/OG Q6H PRN PRN Reason: FEVER Albuterol (Duoneb Neb (Ender)) 1 ampul NEB Q4HR NEB ENDER Last Admin: 12/19/17 09:32 Dose: 1 ampul Albuterol (Albuterol Neb (Prn)) 2.5 mg NEB Q2HR NEB PRN PRN Reason: DYSPNEA Bisacodyl (Dulcolax Supp) 10 mg RECTAL DAILY PRN PRN Reason: if no BM in last 24h Chlorhexidine Gluconate (Peridex 0.12% Oral Kit) 15 ml OROPHARYNG BID@0800, 2000 [facility] Last Admin: 12/18/17 21:48 Dose: 15 ml Chlorhexidine Gluconate (Chlorhexidine 2% Cloth) 3 pack TOPICAL DAILY@0400 [facility] Stop: 12/23/17 03:59 Last Admin: 12/19/17 04:26 Dose: 3 pack Chlorhexidine Gluconate (Chlorhexidine 2% Cloth) 3 pack TOPICAL DAILY@0400 PRN PRN Reason: Extra cloth needed Stop: 12/23/17 03:59 Famotidine (Pepcid) 20 mg PO BID [facility] Last Admin: 12/18/17 21:43 Dose: 20 mg Famotidine (Pepcid Pf Inj) 20 mg IV.PUSH Q12HR [facility] Last Admin: 12/18/17 21:43 Dose: 20 mg Haloperidol Lactate (Haldol Inj) 5 mg IV.PUSH Q1H PRN PRN Reason: AGITATION Heparin Sodium (Porcine) (Heparin Inj) 5,000 units SQ Q8HR [facility] Last Admin: 12/19/17 05:27 Dose: 5,000 units Hydrocortisone Sodium Succinate (Solucortef Inj) 100 mg IV.PUSH Q8HR [facility] Last Admin: 12/19/17 05:26 Dose: 100 mg Fentanyl (Fentanyl 10 Mcg/Ml Premix Drip) 2,500 mcg in 250 mls @ 5 mls/hr IV.SIG TITRATE PRN; Protocol PRN Reason: Per Protocol Last Admin: 12/19/17 04:25 Dose: 200 mcg/hr, 20 mls/hr Sodium Chloride (Ns Inj) 1,000 mls @ 125 mls/hr IV.CONT .Q8H [facility] Last Admin: 12/19/17 00:39 Dose: 125 mls/hr Midazolam HCl (Versed Inj) 50 mg in 50 mls @ 2 mls/hr IV.CONT TITRATE PRN; Protocol PRN Reason: Per Protocol Last Admin: 12/19/17 06:49 Dose: 5 mg/hr, 5 mls/hr Metronidazole/Sodium Chloride (Flagyl 500 Mg Inj) 100 mls @ 100 mls/hr IV.SIG Q6HR ENDER Last Infusion: 12/19/17 06:50 Dose: Infused Cefepime HCl 1,000 mg/ Sodium (Chloride) 100 mls @ 200 mls/hr IV.SIG Q8H ENDER Last Infusion: 12/19/17 06:50 Dose: Infused Magnesium Sulfate 4 gm/ Sodium (Chloride) 100 mls @ 50 mls/hr IV.SIG UNSCH PRN PRN Reason: For Magnesium 0.9 - 1.1 mg/dL Magnesium Sulfate 2 gm/ Sodium (Chloride) 100 mls @ 50 mls/hr IV.SIG UNSCH PRN PRN Reason: For Magnesium 1.2 - 1.6 mg/dL Potassium Chloride (Kcl 40 Meq Premix Inj) 40 meq in 100 mls @ 25 mls/hr IV.SIG Q2H PRN PRN Reason: For Potassium 2.8 - 3.2 mEq/L Potassium Chloride (Kcl 20 Meq Premix Inj) 20 meq in 100 mls @ 50 mls/hr IV.SIG Q2H PRN PRN Reason: For Potassium 3.3 - 3.5 mEq/L Potassium Chloride (Kcl 40 Meq Premix Inj) 40 meq in 100 mls @ 25 mls/hr IV.SIG UNSCH PRN PRN Reason: For Potassium 3.3 - 3.5 mEq/L Potassium Chloride (Kcl 20 Meq Premix Inj) 20 meq in 100 mls @ 50 mls/hr IV.SIG Q2H PRN PRN Reason: For Potassium 2.8 - 3.2 mEq/L Potassium Phosphate 30 mmol/ (Sodium Chloride) 260 mls @ 42 mls/hr IV.SIG UNSCH PRN PRN Reason: SEE LABEL COMMENTS Sodium Phosphate 30 mmol/ (Sodium Chloride) 260 mls @ 42 mls/hr IV.SIG UNSCH PRN PRN Reason: For Phosphorus < 2.5 mg/dL Azithromycin 500 mg/ Sodium (Chloride) 250 mls @ 250 mls/hr IV.SIG Q24H ENDER Last Infusion: 12/18/17 13:26 Dose: Infused Dextrose (D10w Inj) 1,000 mls @ 25 mls/hr IV.CONT .Q24H ENDER Last Infusion: 12/18/17 19:34 Dose: Infused Vancomycin HCl 1,250 mg/ (Sodium Chloride) 262.5 mls @ 250 mls/hr IV.SIG Q24H ENDER Last Infusion: 12/19/17 06:50 Dose: Infused Phenylephrine HCl 40 mg/ (Dextrose) 500 mls @ 37.5 mls/hr IV.CONT TITRATE PRN; Protocol PRN Reason: Per Protocol Last Titration: 12/18/17 23:12 Dose: Infused Norepinephrine Bitartrate 16 (mg/ Dextrose) 250 mls @ 1.87 mls/hr IV.CONT TITRATE PRN; Protocol PRN Reason: See Protocol Last Admin: 12/18/17 23:13 Dose: 2 mcg/min, 1.87 mls/hr Sodium Chloride (Ns Inj) 250 mls @ 0 mls/hr IV.SIG BOLUS ENDER Sodium Chloride (Ns Inj) 500 mls @ 0 mls/hr IV.SIG BOLUS ENDER Last Infusion: 12/17/17 22:00 Dose: Infused Vasopressin 40 unit/ Dextrose 100 mls @ 6 mls/hr IV.CONT CONT ENDER; Protocol Last Admin: 12/19/17 03:03 Dose: 0.04 units/min, 6 mls/hr Sodium Bicarbonate 150 meq/ (Dextrose) 1,000 mls @ 84 mls/hr IV.CONT .[id number] [facility] Last Admin: 12/19/17 00:41 Dose: Not Given Lactulose (Lactulose Liq) 30 ml PO BID [facility] Last Admin: 12/18/17 21:43 Dose: 30 ml Lactulose (Lactulose Liq) 30 ml PO QID PRN PRN Reason: SEVERE CONSITIPATION Magnesium Oxide (Mag-Ox) 800 mg PO UNSCH PRN PRN Reason: For Magnesium 1.2 - 1.6 mg/dL Miscellaneous Information ([facility] [place] Info) 0 each OTHER ONCE ONE Stop: 12/20/17 05:46 Miscellaneous Medication () 1 each OROPHARYNG 0000,0400,1200,1600 [facility] Last Admin: 12/19/17 04:27 Dose: 1 each Ondansetron HCl (Zofran Inj) 4 mg IV.PUSH Q6H PRN PRN Reason: NAUSEA OR VOMITING Pharmacy Profile Note (Vancomycin Consult Pharmacy) 1 each OTHER UNSCH PRN PRN Reason: Pharmacy to dose Polyethylene Glycol (Miralax) 17 gm PO BID [facility] Last Admin: 12/18/17 21:44 Dose: 17 gm Potassium Bicarb/Potassium Chloride (K-Lyte Cl Eff) 50 meq PO UNSCH PRN PRN Reason: For Potassium 3.3 - 3.5 mEq/L Last Admin: 12/19/17 01:30 Dose: 50 meq Potassium Phosphate (K-Phos Original) 2,000 mg PO Q4H PRN PRN Reason: Phosphorus Less Than 2.5 mg/dL Potassium Phosphate (K-Phos Original) 2,000 mg PO UNSCH PRN PRN Reason: SEE LABEL COMMENTS Pravastatin Sodium (Pravachol) 40 mg PO DAILY [facility] Last Admin: 12/18/17 10:46 Dose: 40 mg Quetiapine Fumarate (Seroquel) 25 mg PO HS [facility] Last Admin: 12/18/17 21:47 Dose: 25 mg Senna/Docusate Sodium (Kaylyn-Colace) 1 tab PO BID [facility] Last Admin: 12/18/17 21:43 Dose: 1 tab Sodium Chloride (Ns Flush) 2 ml IV.FLUSH UNSCH PRN PRN Reason: FLUSH AFTER USING IV ACCESS Terbutaline Sulfate (Brethine Inj) 1 mg SQ UNSCH PRN PRN Reason: For Extravasation Valproate Sodium (Depakene Liq) 500 mg NG/OG TID [facility] Vancomycin HCl (Vancomycin Po) 500 mg PO QID [facility] Last Admin: 12/18/17 21:47 Dose: 500 mg Allergies Allergy/AdvReac Type Severity Reaction Status Date / Time No Known Allergies Allergy Verified 12/13/17 08:04 Home Medications Medication Instructions Recorded Confirmed Type lisinopril 30 mg PO DAILY 11/23/17 12/17/17 History pravastatin 40 mg PO DAILY 11/23/17 12/17/17 History tizanidine 4 mg PO DAILY 11/23/17 12/17/17 History Physical Exam Vital signs: Vital Signs 12/18/17 10:00 12/18/17 10:59 12/18/17 12:00 Temperature Pulse Rate 87 101 H Respiratory Rate 24 27 H Blood Pressure Pulse Oximetry 92 L 12/18/17 14:00 12/18/17 16:00 12/18/17 17:04 Temperature Pulse Rate 87 86 87 Respiratory Rate 27 H Blood Pressure Pulse Oximetry 92 L 12/18/17 18:00 12/18/17 19:00 12/18/17 20:00 Temperature Pulse Rate 93 H 83 119 H Respiratory Rate 23 Blood Pressure 101/57 L 93/56 L Pulse Oximetry 12/18/17 20:10 12/18/17 20:32 12/18/17 21:00 Temperature 97.5 F L Pulse Rate 84 84 86 Respiratory Rate 26 H 24 24 Blood Pressure Pulse Oximetry 93 L 93 L 93 L 12/18/17 21:04 12/18/17 22:00 12/18/17 23:00 Temperature 96.7 F L Pulse Rate 85 91 H 119 H Respiratory Rate 24 24 26 H Blood Pressure 90/55 L 106/63 93/56 L Pulse Oximetry 93 L 92 L 92 L 12/19/17 00:00 12/19/17 00:49 12/19/17 01:00 Temperature Pulse Rate 106 H 93 H Respiratory Rate 20 28 H 20 Blood Pressure 92/56 L 88/56 L Pulse Oximetry 95 98 97 12/19/17 02:00 12/19/17 03:00 12/19/17 03:32 Temperature 98.0 F Pulse Rate 88 86 Respiratory Rate 17 22 28 H Blood Pressure 92/56 L 91/54 L Pulse Oximetry 98 98 96 12/19/17 03:34 12/19/17 04:00 12/19/17 05:00 Temperature Pulse Rate 100 H 114 H 100 H Respiratory Rate 30 H 19 20 Blood Pressure 95/51 L 87/51 L Pulse Oximetry 91 L 94 L 12/19/17 06:00 12/19/17 07:47 12/19/17 09:32 Temperature Pulse Rate 91 H 109 H Respiratory Rate 22 26 H 22 Blood Pressure 91/53 L Pulse Oximetry 93 L 95 Intake & Output 12/18/17 12/19/17 12/19/17 18:59 06:59 18:59 Intake Total 2080 / 2080 3532.5 / 3532.5 Output Total 715 / 715 510 / 510 Balance 1365 / 1365 3022.5 / 3022.5 Weight 82.4 kg Intake: IV 1959 / 1959 3412.5 / 3412.5 D10W Inj 1,000 ML @ 25 mls/hr 1000 / 1000 IV.CONT .Q24H ENDER Rx#:[id number] Versed Inj 50 mg In 50 ml @ 2 50 / 50 50 / 50 MG/HR 2 mls/hr IV.CONT TITRATE PRN Rx#:[id number] Levophed Inj 16 MG In D5W Inj 250 / 250 234 ML @ 2 MCG/MIN 1.87 mls/hr IV.CONT TITRATE PRN Rx#: [id number] Neosynephrine Inj 40 MG In D5W 500 / 500 Inj 496 ML @ 50 MCG/MIN 37.5 mls/hr IV.CONT TITRATE PRN Rx#: [id number] Sodium Bicarbonate 8.4% Inj 150 1000 / 1000 1000 / 1000 MEQ In D5W Inj 850 ML @ 84 mls /hr IV.CONT .[id number] ENDER Rx#: [id number] Pitressin Inj 40 UNIT In D5W 100 / 100 100 / 100 Inj 98 ML @ 0.04 UNITS/MIN 6 mls/hr IV.CONT CONT [facility] Rx#: [id number] Azithromycin Inj 500 MG In NS 250 / 250 Inj 250 ML @ 250 mls/hr IV.SIG Q24H [facility] Rx#:[id number] Calcium Chloride Inj 1 GM In NS 110 / 110 Inj 100 ML @ 110 mls/hr IV.SIG ONCE ONE Rx#:[id number] Maxipime Inj 1,000 MG In NS Inj 100 / 100 200 / 200 100 ML @ 200 mls/hr IV.SIG Q8H [facility] Rx#:[id number] Vancomycin Inj 1,250 MG In NS 262.5 / 262.5 Inj 250 ML @ 250 mls/hr IV.SIG Q24H [facility] Rx#:[id number] Flagyl 500 MG Inj 100 ML @ 100 100 / 100 300 / 300 mls/hr IV.SIG Q6HR [facility] Rx#: [id number] Tube Irrigant 120 / 120 120 / 120 Output: Urine 425 / 425 Urine Amount (Catheter) 300 / 300 Indwelling Urethral Catheter 300 / 300 Gastric Drainage 50 / 50 100 / 100 Oral 50 / 50 100 / 100 Chest Tube Drainage 240 / 240 110 / 110 #1 Right Upper 40 / 40 10 / 10 #2 Right 200 / 200 100 / 100 Other: Date of Last Bowel Movement 12/17/17 12/17/17 # Bowel Movements 0 0 - Constitutional obese - Routine HEENT Exam Head: Present: normocephalic, atraumatic ENT: Present: mucous membranes moist - Routine Neck Exam Present: supple, full ROM. Absent: JVD, carotid bruit - Routine Respiratory Exam Present: patient mechanically ventilated, distant breath sounds - Routine Cardiovascular Exam Present: S1, S2, tachycardia. Absent: murmur, gallop, rubs - Routine Abdominal Exam Present: soft, normoactive bowel sounds - Routine Skin Exam Present: intact. Absent: cyanosis, erythema - Routine Neurological Exam Unable to assess due to intubation, mechanical ventilation and chemical sedation - Urinary Catheter Management Indwelling Urethral Catheter Cath placed during this visit: yes Reason for continuing: Hourly intake/output Insertion date: 12/17/17 Insertion time: 08:29 Assessment and Plan - Assessment (1) Respiratory failure Code(s): J96.90 - Respiratory failure, unspecified, unspecified whether with hypoxia or hypercapnia Status: Acute (2) Pneumonia Code(s): J18.9 - Pneumonia, unspecified organism Status: Acute (3) Septic shock Code(s): A41.9 - Sepsis, unspecified organism; R65.21 - Severe sepsis with septic shock Status: Acute - Plan Critical 62-year-old female with septic shock, respiratory failure and metabolic acidosis who is intubated, mechanically ventilated and on significant inotropic support. She has persistent right pneumothorax despite 2 chest tubes with active air leak through 1 of the chest tubes. At this point she is very critically ill and becomes profoundly hypoxic in just manipulating her to assess her chest tubes and dressing. If she is able to tolerate it, I think she would benefit from a fiberoptic bronchoscopy with lavage in efforts to maximally recruited alveoli and improve her oxygenation. 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 We will continue to follow with you. Should her clinical status improved, surgical therapy may be undertaken at that point. Thank you for allowing me to participate in the care of this patient. (1) Respiratory failure Qualifiers: Chronicity: acute Respiratory failure complication: hypoxia and hypercapnia Qualified Code(s): J96.01 - Acute respiratory failure with hypoxia; J96.02 - Acute respiratory failure with hypercapnia (2) Pneumonia Qualifiers: Pneumonia type: due to unspecified organism Laterality: bilateral Lung location: unspecified part of lung Qualified Code(s): J18.9 - Pneumonia, unspecified organism
[2017-12-19 10:08] LABS: ABG Base Excess -2.6 mmol/L (-2-2); ABG PCO2 50 mmHg (38-42); ABG PO2 114 mmHG (61-120)
[2017-12-19] MEDS: Polyethylene Glycol 3350 17 GM Packet PO SCH ×2 (10:28→21:16)
[2017-12-19] MEDS: Senna/Docusate Sodium 8.6/50 MG Tablet PO SCH ×2 (10:28→21:17)
[2017-12-19] MEDS: Famotidine 20 MG Tablet PO SCH ×2 (10:29→21:17)
[2017-12-19] MEDS: Chlorhexidine 0.12% Oral Kit 15 ML UDC OROPHARYNG SCH ×2 (10:29→20:17)
[2017-12-19] MEDS: Azithromycin Inj 500 MG in Sodium Chlor 0.9% Inj 250 ML IV.SIG SCH (10:29)
[2017-12-19] MEDS: Dextrose 10% in Water Inj 1,000 ML IV.CONT SCH (10:30)
--- NOTE | 2017-12-19 10:57 | XR ---
EXAM DATE: 12/19/2017 10:52 AM EDT AGE/SEX: 62 years / Female INDICATIONS: Shortness of breath. CLINICAL DATA: This is the patient's subsequent encounter. Patient reports that signs and symptoms h ave been present for 1 week and indicates a pain score of Nonresponsive. MEDICAL/SURGICAL HISTORY: Hypertension. None. [place] [facility] [place]. . FINDINGS: Portable AP view of the chest demonstrates a normal-sized cardiac silhouette. ETT and nasogastric tub e remain present. EKG lines overlie the patient. 2 right chest tubes remain present and no pneumothor ax is identified. There is persistent bibasilar airspace consolidation and mild consolidation at the left lung apex. No pleural effusion is identified. The bones demonstrate no acute abnormality. CONCLUSION: 1. 2 right chest tubes are present and no pneumothorax is identified. 2. Stable bilateral airspace consolidation primarily in the lower lung zones. Electronically signed by: Pato Ladd MD 12/19/2017 10:56 AM EDT
--- NOTE | 2017-12-19 11:00 | OTSOAPIP ---
TIME SESSION COMPLETED: 1045 RECEIVED OCCUPATIONAL THERAPY ORDER. ATTEMPTED TO SEE PATIENT, HOWEVER PATIENT IS PREPARING FOR BRONCHOSCOPY AND RN DEFERRED EVALUATION. WILL REATTEMPT NEXT AVAILABLE DAY. INTERDISCIPLINARY COMMUNICATION: REVIEWED ELECTRONIC MEDICAL RECORD, SPOKE WITH ROSAMARIA MENDOZA Therapist: Jenni Godinez OTR/L Signature on file
[2017-12-19] MEDS: Epoprostenol (30,000/mL) Neb 75 ML in Sodium Chlor 0.9% Inj 25 ML NEB SCH ×2 (11:37→20:17)
[2017-12-19] MEDS: Famotidine PF Inj 20 MG/2 ML Vial IV.PUSH SCH (11:37)
[2017-12-19 11:39] LABS: Anion Gap 8 meq/L (5-15); Blood Urea Nitrogen 22 mg/dL (7-18); Calcium 6.3 mg/dL (8.5-10.1); Carbon Dioxide 24.6 meq/L (21.0-32.0); Chloride 112 meq/L (98-107); Glomerular Filtration Rate Greater Than 89 mL/min (>89); Glucose,Random 106 mg/dL (74-106); Magnesium 1.3 mg/dL (1.5-2.5); Phosphorus 1.5 mg/dL (2.5-4.9); Potassium 3.7 meq/L (3.5-5.1); Sodium 145 meq/L (136-145)
[2017-12-19 12:03] LABS: Calcium-Albumin Corrected 7.7 mg/dL (8.5-10.1); Total Protein 4.3 g/dL (6.4-8.2)
--- NOTE | 2017-12-19 12:18 | P.PCN ---
Date of procedure: 12/19/17 Pre-op diagnosis: Acute respiratory failure/right pneumothorax Post-op diagnosis: same Procedure: DATE: 12/19/2017 Bronchoscopy/diagnostic and therapeutic INDICATION: Acute respiratory failure CONSENT Informed consent for procedure was obtained from . DESCRIPTION OF THE PROCEDURE The patient was placed in supine position. T patient was placed on ACV ventilation with FiO2 100%. Sedated with propofol and fentanyl drips. Patient received 2 mg of midazolam and 50 mg rocuronium. I entered the 7.5 ET tube with the Olympic bronchoscope. Multiple thick desouza secretions were in the ET tube to take multiple passes to clear. I entered the end of the ET tube. The neli was sharp. Mucosa within it was normal without masses. Left upper/ lingula and lower lobes were evaluated. I suctioned copious amounts of mucous plugs from the left lower lobe and left upper lobe. The scope was withdrawn and I entered the right upper, middle and lower lobes. Again mucosa was normal with no mass noted. Lukens trap sent samples from right lower lobe with thick mucus secretions/tannish. The scope was withdrawn. Saturations remained above 90% at all times. No obvious complications ESTIMATED BLOOD LOSS: Minimal COMPLICATIONS: No apparent complications. STAT chest x-ray pending at time of dictation
--- NOTE | 2017-12-19 12:53 | XR ---
EXAM DATE: 12/19/2017 12:46 PM EDT AGE/SEX: 62 years / Female INDICATIONS: S/P bronchoscopy. CLINICAL DATA: This is the patient's initial encounter. Patient reports that signs and symptoms have been present for 1 day and indicates a pain score of Nonresponsive. MEDICAL/SURGICAL HISTORY: Hypertension. None. [place] [facility] [place]. [facility] [place] 12/19/2017. . FINDINGS: Rotated portable AP view of the chest demonstrates a normal-sized cardiac silhouette. ETT and nasogas tric tube remain present. 2 right chest tubes are in place and there is new lucency in the superior h emithorax with possible pleural line suggesting a pneumothorax. There is patchy airspace consolidatio n bilaterally that is stable. There is increased right chest wall soft tissue air. CONCLUSION: 1. 2 right chest tubes remain present and there is now a small pneumothorax. There is also increased right chest wall soft tissue air. 2. Stable severe bilateral airspace consolidation. Electronically signed by: Pato Ladd MD 12/19/2017 12:52 PM EDT
[2017-12-19] MEDS: Magnesium Sulfate Inj 2 GM in Sodium Chlor 0.9% Inj 96 ML IV.SIG PRN (13:41)
[2017-12-19] MEDS ORDERED: Calcium Chloride Inj 1 GM in Sodium Chlor 0.9% Inj 100 ML IV.SIG ONE (15:00)
--- NOTE | 2017-12-19 16:10 | P.PNCC ---
Subjective Subjective Remarks/Hospital Course: This is a 62yF who was originally admitted on 11/23 with a diagnosis of colitis, found to have enterovirus. discharged on 12/11 at that time on PO vancomycin, but came back on 12/13 with altered mental status and hypoglycemia, again discharged on 12/15. She was mildly fatigued on 12/16 according to her and asked to wait another day before traveling back to her home in [place]. This morning, she was unarousable and her called 911. She was intubated upon arrival to the emergency department for agonal respirations. CXR demonstrates bilateral multifocal pneumonia. She is febrile, hypotensive. CVL placed in the ER and vasopressors initiated after 2L bolus crystalloid. CT chest/abd/pelvis demonstrates right pneumothorax, densely consolidated right lower lobe, bilateral pulmonary infiltrates, evidence of ongoing colitis. Patient continue to be unstable. Immediately after identifying ptx on CT scan, I emergently placed right chest tube with some improvements in hemodynamics, but ongoing distributive shock persists. I placed arterial line. No additional information available from the patient, ROS unobtainable. In discussion with the , she has not had any new complaints in the 48h she was home, and other than mild fatigue last night, no new complaints. She was able to walk to the bathroom without assistance yesterday. 12/18: shock remains. now on levophed, vasopressin, phenylephrine. second chest tube placed overnight for worsening SQ air. acidosis remains and is severe. SUBJECTIVE: 12/19: Afebrile. Remains on vasopressin drip only. On stress dose hydrocortisone. Evaluated by CT surgery. Not a candidate for intervention at the present time. Chest tube continues to leak. Epoprostenol added today Objective Vital Signs / I&O: Vital Signs 12/18/17 17:04 12/18/17 18:00 12/18/17 19:00 Temperature Pulse Rate 87 93 H 83 Respiratory Rate 27 H 23 Blood Pressure 101/57 L Pulse Oximetry 92 L 12/18/17 20:00 12/18/17 20:10 12/18/17 20:32 Temperature 97.5 F L Pulse Rate 119 H 84 84 Respiratory Rate 26 H 24 Blood Pressure 93/56 L Pulse Oximetry 93 L 93 L 12/18/17 21:00 12/18/17 21:04 12/18/17 22:00 Temperature Pulse Rate 86 85 91 H Respiratory Rate 24 24 24 Blood Pressure 90/55 L 106/63 Pulse Oximetry 93 L 93 L 92 L 12/18/17 23:00 12/19/17 00:00 12/19/17 00:49 Temperature 96.7 F L Pulse Rate 119 H 106 H Respiratory Rate 26 H 20 28 H Blood Pressure 93/56 L 92/56 L Pulse Oximetry 92 L 95 98 12/19/17 01:00 12/19/17 02:00 12/19/17 03:00 Temperature 98.0 F Pulse Rate 93 H 88 86 Respiratory Rate 20 17 22 Blood Pressure 88/56 L 92/56 L 91/54 L Pulse Oximetry 97 98 98 12/19/17 03:32 12/19/17 03:34 12/19/17 04:00 Temperature Pulse Rate 100 H 114 H Respiratory Rate 28 H 30 H 19 Blood Pressure 95/51 L Pulse Oximetry 96 91 L 12/19/17 05:00 12/19/17 06:00 12/19/17 07:00 Temperature Pulse Rate 100 H 91 H 89 Respiratory Rate 20 22 24 Blood Pressure 87/51 L 91/53 L 87/52 L Pulse Oximetry 94 L 93 L 95 12/19/17 07:47 12/19/17 08:00 12/19/17 09:00 Temperature 97.9 F Pulse Rate 84 74 Respiratory Rate 26 H 24 20 Blood Pressure 85/52 L 115/66 Pulse Oximetry 95 95 95 12/19/17 09:32 12/19/17 10:00 12/19/17 11:00 Temperature Pulse Rate 109 H 117 H 72 Respiratory Rate 22 24 26 H Blood Pressure 129/64 113/74 Pulse Oximetry 95 96 12/19/17 12:00 12/19/17 12:09 12/19/17 13:00 Temperature 97.9 F Pulse Rate 87 93 H Respiratory Rate 26 H 26 H 26 H Blood Pressure 157/89 H 116/72 Pulse Oximetry 92 L 96 99 12/19/17 14:00 12/19/17 14:32 12/19/17 16:00 Temperature Pulse Rate 66 73 74 Respiratory Rate 26 H 26 H 26 H Blood Pressure 104/74 122/73 Pulse Oximetry 98 95 Intake & Output 12/18/17 12/19/17 12/19/17 18:59 06:59 18:59 Intake Total 2080 / 2080 3532.5 / 3532.5 1600 / 1600 Output Total 715 / 715 510 / 510 Balance 1365 / 1365 3022.5 / 3022.5 1600 / 1600 Weight 82.4 kg Intake: IV 1959 / 1959 3412.5 / 3412.5 1600 / 1600 D10W Inj 1,000 ML @ 25 mls/hr 1000 / 1000 IV.CONT .Q24H [facility] Rx#:[id number] Versed Inj 50 mg In 50 ml @ 2 50 / 50 50 / 50 50 / 50 MG/HR 2 mls/hr IV.CONT TITRATE PRN Rx#:[id number] Levophed Inj 16 MG In D5W Inj 250 / 250 234 ML @ 2 MCG/MIN 1.87 mls/hr IV.CONT TITRATE PRN Rx#: [id number] Neosynephrine Inj 40 MG In D5W 500 / 500 Inj 496 ML @ 50 MCG/MIN 37.5 mls/hr IV.CONT TITRATE PRN Rx#: [id number] NS Inj 1,000 ML @ 125 mls/hr IV 1000 / 1000 .CONT .Q8H [facility] Rx#:[id number] Sodium Bicarbonate 8.4% Inj 150 1000 / 1000 1000 / 1000 MEQ In D5W Inj 850 ML @ 84 mls /hr IV.CONT .[id number] [facility] Rx#: [id number] Pitressin Inj 40 UNIT In D5W 100 / 100 100 / 100 Inj 98 ML @ 0.04 UNITS/MIN 6 mls/hr IV.CONT CONT [facility] Rx#: [id number] Azithromycin Inj 500 MG In NS 250 / 250 250 / 250 Inj 250 ML @ 250 mls/hr IV.SIG Q24H [facility] Rx#:[id number] Calcium Chloride Inj 1 GM In NS 110 / 110 Inj 100 ML @ 110 mls/hr IV.SIG ONCE ONE Rx#:[id number] Maxipime Inj 1,000 MG In NS Inj 100 / 100 200 / 200 100 / 100 100 ML @ 200 mls/hr IV.SIG Q8H [facility] Rx#:[id number] Magnesium Sulfate Inj 2 GM In 100 / 100 NS Inj 96 ML @ 50 mls/hr IV.SIG UNSCH PRN Rx#:[id number] Vancomycin Inj 1,250 MG In NS 262.5 / 262.5 Inj 250 ML @ 250 mls/hr IV.SIG Q24H [facility] Rx#:[id number] Flagyl 500 MG Inj 100 ML @ 100 100 / 100 300 / 300 100 / 100 mls/hr IV.SIG Q6HR [facility] Rx#: [id number] Tube Irrigant 120 / 120 120 / 120 Output: Urine 425 / 425 Urine Amount (Catheter) 300 / 300 Indwelling Urethral Catheter 300 / 300 Gastric Drainage 50 / 50 100 / 100 Oral 50 / 50 100 / 100 Chest Tube Drainage 240 / 240 110 / 110 #1 Right Upper 40 / 40 10 / 10 #2 Right 200 / 200 100 / 100 Other: Date of Last Bowel Movement 12/17/17 12/17/17 12/17/17 # Bowel Movements 0 0 Result Diagrams: 12/19/17 04:47 12/19/17 10:15 Other Results: Microbiology 12/17/17 15:54 Sputum - Endotracheal Gram Stain - Final 12/17/17 15:54 Sputum - Endotracheal Sputum Culture - Final Klebsiella pneumoniae 12/17/17 08:24 Blood - Peripheral Aerobic Blood Culture - Preliminary No growth in 2 days 12/17/17 08:24 Blood - Peripheral Anaerobic Blood Culture - Preliminary No growth in 2 days 12/17/17 08:10 Blood - Peripheral Aerobic Blood Culture - Preliminary No growth in 2 days 12/17/17 08:10 Blood - Peripheral Anaerobic Blood Culture - Final Staphylococcus coag negative Viridans streptococcus grp 12/19/17 00:56 Fluid - Pleural fluid Gram Stain - Final 12/19/17 00:30 Fluid - Pleural fluid Gram Stain - Final 12/17/17 15:55 Fluid - Pleural fluid Gram Stain - Final 12/17/17 15:55 Fluid - Pleural fluid Body Fluid Culture - Preliminary gram positive rods Yeast species gram negative rods 12/17/17 15:55 Stool Stool for WBCs - Final Few WBC's 12/17/17 13:54 Urine - Catheterized Urine Streptococcus pneumoniae Antigen ( M - Final Presumptive negative for streptococcus pneumoniae antigen, suggesting no current or recent infection. Infection due to Streptococcus pneumoniae cannot be ruled out since the antigen present in the sample may be below the detection limit of the test. 12/17/17 13:54 Urine - Catheterized Urine Legionella Antigen - Final Presumptive negative for Legionella pneumophila serogroup 1 antigen in urine, suggesting no recent or recurrent infection. Infection due to Legionella cannot be ruled out since other serogroups and species may cause disease, antigen may not be present in urine in early infection, and the level of antigen present in the urine may be below the detection limit of the test. 12/17/17 15:55 Nasal Aspirate Influenza Types A,B Antigen - Final Negative for FLU A and B antigen Infection due to influenza A or B cannot be ruled out since the antigen present in the sample may be below the detection limit of the test. Imaging: Chest X-Ray 12/17/17 00:00 CONCLUSION: 1. Persistent bilateral airspace infiltrates. 2. Interval placement of a right-sided thoracostomy tube. There does appear to be an apical lateral 1.5 cm right pneumothorax. 3. Extensive subcutaneous and deep tissue emphysematous changes about the right hemithorax. Chest X-Ray 12/17/17 00:00 CONCLUSION: Right-sided chest tube with slight increase in right pneumothorax compared with earlier exam. Slight increase in left basilar airspace disease since earlier exam. Slight worsening of subcutaneous air with extension into the left hemithorax and neck. Chest X-Ray 12/17/17 08:02 CONCLUSION: Satisfactory support line and tube positioning. Bilateral infiltrates. Head CT 12/17/17 08:02 CONCLUSION: 1. 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 2. Otherwise negative. . Abdomen/Pelvis CT 12/17/17 10:45 CONCLUSION: 1. Moderate diffuse colonic wall thickening exaggerated by lack of colonic distention. This may be due to low-protein state/edema. However, differential considerations include infectious and inflammatory colitis. 2. Moderate-sized right hydropneumothorax with airspace disease in the lung bases as described on chest CT. 3. Additional ancillary findings, as above. Chest CT 12/17/17 10:45 CONCLUSION: 1. Small to moderate-sized right-sided hydropneumothorax. 2. Right lower lobe consolidation with air bronchograms. Differential considerations include aspiration and lobar pneumonia. 3. Patchy diffuse groundglass opacities most prominently in the upper lobes bilaterally. Differential considerations include bronchopneumonia, atypical infection and atypical pulmonary edema. 4. Mild mediastinal adenopathy, likely reactive. Chest X-Ray 12/17/17 22:00 CONCLUSION: Placement of second right-sided chest tube with near complete resolution of previous right pneumothorax. Chest X-Ray 12/18/17 05:00 CONCLUSION: 1. Stable bilateral multifocal consolidative infiltrates. 2. 2 right chest drainage tubes in place; no pneumothorax seen. Chest X-Ray 12/19/17 00:00 CONCLUSION: 1. 2 right chest tubes remain present and there is now a small pneumothorax. There is also increased right chest wall soft tissue air. 2. Stable severe bilateral airspace consolidation. Chest X-Ray 12/19/17 05:00 CONCLUSION: Findings suggest reaccumulation of right pneumothorax with both right-sided chest tubes unchanged in position. Chest X-Ray 12/19/17 10:08 CONCLUSION: 1. 2 right chest tubes are present and no pneumothorax is identified. 2. Stable bilateral airspace consolidation primarily in the lower lung zones. Objective Remarks: GENERAL: 62-year-old middle-aged female, lying in bed, intubated, sedated, critically ill. HEENT: Normocephalic. Atraumatic. Pupils equal, round, reactive, conjugate. Mucous membranes are moist NECK: Trachea is midline. There is no JVD. CHEST: Equal chest rise. PRVC. 100% FiO2. Two right-sided chest tubes with 3 + air leak. Minimal subcutaneous air CARDIOVASCULAR: Tachycardic rate, regular rhythm. On vasopressin infusion ABDOMEN: Soft, nontender, nondistended. No guarding. MUSCULOSKELETAL: Pulses 2+. No peripheral edema. NEUROLOGICAL: RASS -3. Withdraws to pain x4. Does not follow commands. Assessment and Plan - Assessment and Plan Plan: Neuro/Psych: Acute metabolic encephalopathy Possible seizure disorder Currently on midazolam drip at 5 mg an hour and fentanyl drip at 150 magdalene grams an hour for sedation/analgesia while intubated Frequent neurochecks goal RASS -2 She was started on anticonvulsants and her initial admission 11/23. Valproic acid 500 mg 3 times daily. Check level Head CT 12/17- for acute disease EEG - Diffuse slowing consistent with a moderate diffuse encephalopathy. No epileptiform activity Acetaminophen 650 by tube every 6 hours as needed fever Continue quetiapine 25 mg daily/home medication Holding 10 acetonide 4 mg daily Respiratory: Acute hypoxic and hypercarbic respiratory failure Acute severe bilateral multifocal healthcare associated pneumonia Possible aspiration pneumonia Spontaneous right-sided tension pneumothorax Subcutaneous Emphysema Status post emergent chest tube 12/17 and second emergent chest tube 12/17: To - [address] surgery/Dr. Lynn following A.m. chest x-ray Vent bundle PRVC ventilation 26/500/0.9/ Epoprostenol aerosolized added today Head of bed elevated Albuterol/ipratropium aerosols every 4 hours with albuterol aerosols every 2 hours as needed dyspnea Wean FiO2 for goal SPO2 greater than 90% Spontaneous breathing trials when clinically indicated Follow-up a.m. ABG Cardiovascular: Septic shock Elevated troponin Type II NSTEMI secondary to demand ischemia Hyperlipidemia Holding lisinopril 30 mg daily/home medication. Resume pravastatin 80 mg daily when clinically indicated Currently on vasopressin drip for goal map greater than 65 stress dose hydrocortisone 100 mg IV every 8 hours added Trend troponins. Will not anticoagulate. Unlikely to be ACS. Renal: Acute kidney injury Secondary to shock continue Read Frequent urine output monitoring Daily creatinine Additional IV fluids and maintenance fluids -- Strict I/Os FEN/GI: Acute protein calorie malnutritionmoderate Lactic acidosis Severe colitis Enterovirus colitis C. difficile colitis Hyperammonemia Currently on lactulose 30 cc twice daily \Recheck ammonia level in a.m. 12/20 Maintenance IV fluids have been discontinued Place orogastric tube to low intermittent wall suction Start tube feeding with Jevity 1.5 goal 20 cc an hour ICU electrolyte protocol Daily BMP, magnesium, phosphorus Trend lactates Lactulose/polythene glycol twice daily Holding dicyclomine 20 mg 3 times daily Heme/ID: C. difficile colitis Enterovirus colitis Septic shock Healthcare associated multifocal pneumonia Possible gram-positive cocci bacteremia Early empyema Vancomycin IV/p.o. with pharmacy dosing Cefepime, metronidazole, azithromycin and micafungin Pleural fluid 12/17 -gram-positive rods, gram-negative rods, yeast 12/17 -sputum -Klebsiella 12/17 blood-strep viridians/coag negative staph Infectious disease consultation Endocrine: Acute hypoglycemia- resolving. Sliding scale insulin Accu-Cheks every 6 hours to maintain euglycemia Prophylaxis: GI Prophylaxis Famotidine DVT Prophylaxis -- SCDs Subcu heparin Lines: 12/17 femoral triple-lumen catheter 12/17 right radial arterial line 12/17 right 28 Welsh chest tube to -40 cm suction 12/17 right 32 Welsh chest tube to -40 cm suction 12/17 Read Critical care time 35 minutes
[2017-12-19] MEDS ORDERED: Dextrose 50% in Water 50 ML Vial IV.PUSH PRN (16:11)
[2017-12-19] MEDS: Micafungin Inj 150 MG in Sodium Chlor 0.9% Inj 100 ML IV.SIG SCH (17:08)
[2017-12-19] MEDS ORDERED: VANCOMYCIN 500 MG PO SCH (18:00)
[2017-12-19] MEDS: Insulin NovoLOG Aspart Correctional Sugar Inj SQ SCH (19:05)
[2017-12-19] MEDS: Carboxymethylcellulose 0.5% Opth Drops 15 ML Bottle EACH EYE SCH (21:17)
[2017-12-19] MEDS: QUEtiapine 25 MG Tablet PO SCH (21:17)
[2017-12-20] MEDS: Epoprostenol (30,000/mL) Neb 75 ML in Sodium Chlor 0.9% Inj 25 ML NEB SCH ×4 (00:56→22:03)
[2017-12-20] MEDS: Insulin NovoLOG Aspart Correctional Sugar Inj SQ SCH ×4 (01:06→17:32)
[2017-12-20] MEDS: Oral Hygiene Kit OROPHARYNG SCH ×4 (01:07→17:29)
[2017-12-20 01:18] LABS: Anion Gap 10 meq/L (5-15); Blood Urea Nitrogen 23 mg/dL (7-18); Calcium 6.5 mg/dL (8.5-10.1); Carbon Dioxide 20.6 meq/L (21.0-32.0); Chloride 116 meq/L (98-107); Glomerular Filtration Rate Greater Than 89 mL/min (>89); Glucose,Random 114 mg/dL (74-106); Magnesium 1.6 mg/dL (1.5-2.5); Phosphorus 1.1 mg/dL (2.5-4.9); Sodium 147 meq/L (136-145); Valproic Acid 48 mcg/mL (50-100)
[2017-12-20 01:21] LABS: Potassium 2.6 meq/L (3.5-5.1)
[2017-12-20] MEDS: Midazolam 50 MG/50 ML Inj 50 MG/50 ML BAG IV.CONT PRN ×2 (01:23→13:32)
[2017-12-20 01:34] LABS: Calcium-Albumin Corrected 8.3 mg/dL (8.5-10.1); Total Protein 3.8 g/dL (6.4-8.2)
[2017-12-20] MEDS: Sod Chloride 0.9% Inj 1,000 ML IV.CONT SCH ×2 (01:59→10:13)
[2017-12-20] MEDS: Potassium Chlor 40 mEq Premix 40 MEQ/100 ML PIGGYBACK IV.SIG PRN ×2 (01:59→05:48)
[2017-12-20] MEDS: Chlorhexidine Gluconate 2% 1 Pack (2 Cloths) TOPICAL SCH (04:17)
--- NOTE | 2017-12-20 05:12 | XR ---
EXAM DATE: 12/20/2017 4:49 AM EDT AGE/SEX: 62 years / Female INDICATIONS: Shortness of breath, possible pneumothorax. CLINICAL DATA: This is the patient's subsequent encounter. Patient reports that signs and symptoms h ave been present for 1 week and indicates a pain score of Nonresponsive. MEDICAL/SURGICAL HISTORY: Hypertension. None. COMPARISON: [facility], CHEST 1V SINGLE AP, 12/19/2017. . FINDINGS: ET tube tip well above the neli. Gastric tube tip and side-port project within the stomach. 2 chest tubes on the right side stable in position. Interval decrease in the size of the right apical pneumo thorax, now measuring 4 mm (previously measured 7 mm). Patchy areas of consolidation in the central a nd lower lungs similar distribution and severity to prior. CONCLUSION: 1. Decrease in size of right apical pneumothorax to 4 mm. 2. Diffuse bilateral airspace consolidation similar in severity and distribution to prior. Electronically signed by: Michael Hicks MD 12/20/2017 5:11 AM EDT
[2017-12-20 05:43] LABS: Baso % (Auto) 0.2 % (0.0-2.0); Hematocrit 21.9 % (35.0-46.0); Hemoglobin 7.4 gm/dL (11.6-15.3); Lymph # (Auto) 0.4 th/mm3 (1.0-4.8); Lymph % (Auto) 3.6 % (9.0-44.0); Mean Corpuscular HGB Conc 33.7 % (32.0-36.0); Mean Corpuscular Hemoglobin 32.3 pg (27.0-34.0); Mean Corpuscular Volume 95.9 fL (80.0-100.0); Mean Platelet Volume 9.3 fL (7.0-11.0); Mono # (Auto) 0.4 th/mm3 (0.0-0.9); Mono % (Auto) 3.3 % (0.0-8.0); Neut # (Auto) 11.5 th/mm3 (1.8-7.7); Neut % (Auto) 92.9 % (16.0-70.0); Platelet Count 208 th/mm3 (150-450); Red Blood Count 2.28 mil/mm3 (4.00-5.30); White Blood Count 12.3 th/mm3 (4.0-11.0)
[2017-12-20] MEDS ORDERED: Pharmacy Ordered Lab Info OTHER ONE (05:45)
[2017-12-20] MEDS: Hydrocortisone Sod Succinate 100 MG Vial IV.PUSH SCH ×3 (05:49→22:05)
[2017-12-20 06:02] LABS: ABG Base Excess 4.7 mmol/L (-2-2); ABG PCO2 48 mmHg (38-42); ABG PO2 212 mmHG (61-120)
[2017-12-20 06:17] LABS: Calcium 6.7 mg/dL (8.5-10.1); Carbon Dioxide 20.4 meq/L (21.0-32.0); Magnesium 1.7 mg/dL (1.5-2.5); Phosphorus 1.2 mg/dL (2.5-4.9); Potassium 3.1 meq/L (3.5-5.1); Vancomycin,Trough 16.8 mcg/mL (5.0-10.0)
[2017-12-20 06:28] LABS: Calcium-Albumin Corrected 8.4 mg/dL (8.5-10.1); Total Protein 3.9 g/dL (6.4-8.2)
[2017-12-20] MEDS: Heparin - SQ 10,000 UNITS/ML Vial SQ SCH ×3 (06:44→22:05)
[2017-12-20] MEDS: Vancomycin Inj 1,250 MG in Sodium Chlor 0.9% Inj 250 ML IV.SIG SCH (07:21)
[2017-12-20] MEDS: Famotidine 20 MG Tablet PO SCH ×2 (10:12→22:04)
[2017-12-20] MEDS: Senna/Docusate Sodium 8.6/50 MG Tablet PO SCH ×2 (10:13→22:04)
[2017-12-20] MEDS: Polyethylene Glycol 3350 17 GM Packet PO SCH ×2 (10:13→22:04)
[2017-12-20] MEDS: Carboxymethylcellulose 0.5% Opth Drops 15 ML Bottle EACH EYE SCH ×2 (10:13→22:05)
[2017-12-20] MEDS: Chlorhexidine 0.12% Oral Kit 15 ML UDC OROPHARYNG SCH ×2 (10:14→22:03)
[2017-12-20] MEDS: Azithromycin Inj 500 MG in Sodium Chlor 0.9% Inj 250 ML IV.SIG SCH (10:14)
[2017-12-20] MEDS ORDERED: Potassium Phosphate Inj 30 MMOL in Sodium Chlor 0.9% Inj 250 ML IV.SIG ONE (11:04)
[2017-12-20] MEDS ORDERED: Magnesium Sulfate Inj 4 GM in Dextrose 5% in Water Inj 100 ML IV.SIG ONE ×2 (11:04)
--- NOTE | 2017-12-20 11:38 | P.PNCC ---
Subjective Subjective Remarks/Hospital Course: This is a 62yF who was originally admitted on 11/23 with a diagnosis of colitis, found to have enterovirus. discharged on 12/11 at that time on PO vancomycin, but came back on 12/13 with altered mental status and hypoglycemia, again discharged on 12/15. She was mildly fatigued on 12/16 according to her and asked to wait another day before traveling back to her home in [place]. This morning, she was unarousable and her called 911. She was intubated upon arrival to the emergency department for agonal respirations. CXR demonstrates bilateral multifocal pneumonia. She is febrile, hypotensive. CVL placed in the ER and vasopressors initiated after 2L bolus crystalloid. CT chest/abd/pelvis demonstrates right pneumothorax, densely consolidated right lower lobe, bilateral pulmonary infiltrates, evidence of ongoing colitis. Patient continue to be unstable. Immediately after identifying ptx on CT scan, I emergently placed right chest tube with some improvements in hemodynamics, but ongoing distributive shock persists. I placed arterial line. No additional information available from the patient, ROS unobtainable. In discussion with the , she has not had any new complaints in the 48h she was home, and other than mild fatigue last night, no new complaints. She was able to walk to the bathroom without assistance yesterday. 12/18: shock remains. now on levophed, vasopressin, phenylephrine. second chest tube placed overnight for worsening SQ air. acidosis remains and is severe. 12/19: Afebrile. Remains on vasopressin drip only. On stress dose hydrocortisone. Evaluated by CT surgery. Not a candidate for intervention at the present time. Chest tube continues to leak. Epoprostenol added today SUBJECTIVE: 12/20: Afebrile. FiO2 dentist 70%. Currently replacing potassium, phosphorus and magnesium. Recheck later this afternoon. Less chest tube leak today down to 1 chamber. Objective Vital Signs / I&O: Vital Signs 12/19/17 12:00 12/19/17 12:05 12/19/17 12:09 Temperature 97.9 F Pulse Rate 87 Respiratory Rate 26 H 26 H Blood Pressure 157/89 H Pulse Oximetry 80 L 100 96 12/19/17 13:00 12/19/17 14:00 12/19/17 14:32 Temperature Pulse Rate 93 H 66 73 Respiratory Rate 0 L 1 L 26 H Blood Pressure 116/72 104/74 Pulse Oximetry 99 98 12/19/17 15:00 12/19/17 16:00 12/19/17 16:01 Temperature 98.0 F Pulse Rate 83 74 75 Respiratory Rate 0 L 1 L 0 L Blood Pressure 109/69 122/73 122/73 Pulse Oximetry 98 98 98 12/19/17 17:00 12/19/17 18:00 12/19/17 19:00 Temperature Pulse Rate 56 L 77 92 H Respiratory Rate 2 L 4 L 26 H Blood Pressure 128/72 124/60 111/79 Pulse Oximetry 97 97 98 12/19/17 20:00 12/19/17 20:36 12/19/17 21:00 Temperature 98.8 F Pulse Rate 61 69 69 Respiratory Rate 26 H 26 H 26 H Blood Pressure 105/63 Pulse Oximetry 98 100 100 12/19/17 21:01 12/19/17 22:00 12/19/17 23:00 Temperature Pulse Rate 69 78 67 Respiratory Rate 26 H 26 H 10 L Blood Pressure 119/58 L 95/58 L Pulse Oximetry 100 99 97 12/19/17 23:03 12/20/17 00:00 12/20/17 00:49 Temperature 98.6 F Pulse Rate 65 62 59 L Respiratory Rate 16 26 H 26 H Blood Pressure 107/59 L 112/61 Pulse Oximetry 97 97 12/20/17 00:50 12/20/17 01:00 12/20/17 02:00 Temperature Pulse Rate 71 71 Respiratory Rate 26 H 16 13 Blood Pressure 129/61 132/74 Pulse Oximetry 95 96 95 12/20/17 03:00 12/20/17 04:00 12/20/17 04:02 Temperature 98.5 F Pulse Rate 84 134 H 130 H Respiratory Rate 3 L 26 H 29 H Blood Pressure 115/60 105/58 L Pulse Oximetry 95 100 12/20/17 04:04 12/20/17 05:00 12/20/17 06:00 Temperature Pulse Rate 110 H 100 H Respiratory Rate 26 H 26 H 19 Blood Pressure 98/57 L 104/60 Pulse Oximetry 100 99 97 12/20/17 07:44 Temperature Pulse Rate 83 Respiratory Rate 26 H Blood Pressure Pulse Oximetry 97 Intake & Output 12/19/17 12/20/17 12/20/17 18:59 06:59 18:59 Intake Total 2160 / 2160 3200 / 3200 1612.5 / 1612.5 Output Total 325 / 325 520 / 520 Balance 1835 / 1835 2680 / 2680 1612.5 / 1612.5 Weight 82.4 kg Intake: IV 2160 / 2160 3010 / 3010 1612.5 / 1612.5 Versed Inj 50 mg In 50 ml @ 2 50 / 50 50 / 50 MG/HR 2 mls/hr IV.CONT TITRATE PRN Rx#:[id number] NS Inj 1,000 ML @ 125 mls/hr IV 1000 / 1000 2000 / 2000 1000 / 1000 .CONT .Q8H BENJAMIN Rx#:[id number] Pitressin Inj 40 UNIT In D5W 100 / 100 Inj 98 ML @ 0.04 UNITS/MIN 6 mls/hr IV.CONT CONT BENJAMIN Rx#: [id number] Azithromycin Inj 500 MG In NS 250 / 250 250 / 250 Inj 250 ML @ 250 mls/hr IV.SIG Q24H BENJAMIN Rx#:[id number] Calcium Chloride Inj 1 GM In NS 110 / 110 Inj 100 ML @ 110 mls/hr IV.SIG ONCE ONE Rx#:[id number] Maxipime Inj 1,000 MG In NS Inj 100 / 100 200 / 200 100 ML @ 200 mls/hr IV.SIG Q8H BENJAMIN Rx#:[id number] Magnesium Sulfate Inj 2 GM In 100 / 100 NS Inj 96 ML @ 50 mls/hr IV.SIG UNSCH PRN Rx#:[id number] Mycamine Inj 150 MG In NS Inj 100 / 100 100 ML @ 100 mls/hr IV.SIG Q24H BENJAMIN Rx#:[id number] KCl 40 mEq Premix Inj 40 meq In 100 / 100 100 / 100 100 ml @ 25 mls/hr IV.SIG Q2H PRN Rx#:[id number] Sodium Phosphate Inj 30 MMOL In 260 / 260 NS Inj 250 ML @ 42 mls/hr IV. SIG UNSCH PRN Rx#:[id number] Vancomycin Inj 1,250 MG In NS 262.5 / 262.5 Inj 250 ML @ 250 mls/hr IV.SIG Q24H BENJAMIN Rx#:[id number] fentaNYL 10 mcg/mL Premix Drip 250 / 250 2,500 mcg In 250 ml @ 50 MCG/HR 5 mls/hr IV.SIG TITRATE PRN Rx #:[id number] Flagyl 500 MG Inj 100 ML @ 100 200 / 200 200 / 200 mls/hr IV.SIG Q6HR BENJAMIN Rx#: [id number] Flolan (30,000 ng/mL) Neb 75 ML 100 / 100 In NS Inj 25 ML @ 5 mls/hr NEB Q8H BENJAMIN Rx#:[id number] Tube Feeding 70 / 70 Tube Irrigant 120 / 120 Output: Urine Amount (Catheter) 325 / 325 300 / 300 Indwelling Urethral Catheter 325 / 325 300 / 300 Chest Tube Drainage 220 / 220 #1 Right Upper 0 / 0 #2 Right 220 / 220 Other: Date of Last Bowel Movement 12/19/17 12/20/17 12/20/17 # Bowel Movements 1 1 Result Diagrams: 12/20/17 04:40 12/20/17 04:40 Other Results: Microbiology 12/17/17 08:24 Blood - Peripheral Aerobic Blood Culture - Preliminary No growth in 3 days 12/17/17 08:24 Blood - Peripheral Anaerobic Blood Culture - Preliminary No growth in 3 days 12/17/17 08:10 Blood - Peripheral Aerobic Blood Culture - Preliminary No growth in 3 days 12/17/17 08:10 Blood - Peripheral Anaerobic Blood Culture - Final Staphylococcus coag negative Viridans streptococcus grp 12/19/17 11:30 Bronchial Washings - Bronchial Fungal Smear - Final Rare budding yeast 12/19/17 11:30 Bronchial - Bronchial Gram Stain - Final 12/17/17 15:55 Fluid - Pleural fluid Gram Stain - Final 12/17/17 15:55 Fluid - Pleural fluid Body Fluid Culture - Preliminary gram positive rods Yeast species gram negative rods 12/17/17 15:54 Sputum - Endotracheal Gram Stain - Final 12/17/17 15:54 Sputum - Endotracheal Sputum Culture - Final Klebsiella pneumoniae 12/19/17 00:56 Fluid - Pleural fluid Gram Stain - Final 12/19/17 00:30 Fluid - Pleural fluid Gram Stain - Final 12/17/17 15:55 Stool Stool for WBCs - Final Few WBC's 12/17/17 13:54 Urine - Catheterized Urine Streptococcus pneumoniae Antigen ( M - Final Presumptive negative for streptococcus pneumoniae antigen, suggesting no current or recent infection. Infection due to Streptococcus pneumoniae cannot be ruled out since the antigen present in the sample may be below the detection limit of the test. 12/17/17 13:54 Urine - Catheterized Urine Legionella Antigen - Final Presumptive negative for Legionella pneumophila serogroup 1 antigen in urine, suggesting no recent or recurrent infection. Infection due to Legionella cannot be ruled out since other serogroups and species may cause disease, antigen may not be present in urine in early infection, and the level of antigen present in the urine may be below the detection limit of the test. 12/17/17 15:55 Nasal Aspirate Influenza Types A,B Antigen - Final Negative for FLU A and B antigen Infection due to influenza A or B cannot be ruled out since the antigen present in the sample may be below the detection limit of the test. Imaging: Chest X-Ray 12/17/17 00:00 CONCLUSION: 1. Persistent bilateral airspace infiltrates. 2. Interval placement of a right-sided thoracostomy tube. There does appear to be an apical lateral 1.5 cm right pneumothorax. 3. Extensive subcutaneous and deep tissue emphysematous changes about the right hemithorax. Chest X-Ray 12/17/17 00:00 CONCLUSION: Right-sided chest tube with slight increase in right pneumothorax compared with earlier exam. Slight increase in left basilar airspace disease since earlier exam. Slight worsening of subcutaneous air with extension into the left hemithorax and neck. Chest X-Ray 12/17/17 08:02 CONCLUSION: Satisfactory support line and tube positioning. Bilateral infiltrates. Head CT 12/17/17 08:02 CONCLUSION: 1. 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 2. Otherwise negative. . Abdomen/Pelvis CT 12/17/17 10:45 CONCLUSION: 1. Moderate diffuse colonic wall thickening exaggerated by lack of colonic distention. This may be due to low-protein state/edema. However, differential considerations include infectious and inflammatory colitis. 2. Moderate-sized right hydropneumothorax with airspace disease in the lung bases as described on chest CT. 3. Additional ancillary findings, as above. Chest CT 12/17/17 10:45 CONCLUSION: 1. Small to moderate-sized right-sided hydropneumothorax. 2. Right lower lobe consolidation with air bronchograms. Differential considerations include aspiration and lobar pneumonia. 3. Patchy diffuse groundglass opacities most prominently in the upper lobes bilaterally. Differential considerations include bronchopneumonia, atypical infection and atypical pulmonary edema. 4. Mild mediastinal adenopathy, likely reactive. Chest X-Ray 12/17/17 22:00 CONCLUSION: Placement of second right-sided chest tube with near complete resolution of previous right pneumothorax. Chest X-Ray 12/18/17 05:00 CONCLUSION: 1. Stable bilateral multifocal consolidative infiltrates. 2. 2 right chest drainage tubes in place; no pneumothorax seen. Chest X-Ray 12/19/17 00:00 CONCLUSION: 1. 2 right chest tubes remain present and there is now a small pneumothorax. There is also increased right chest wall soft tissue air. 2. Stable severe bilateral airspace consolidation. Chest X-Ray 12/19/17 05:00 CONCLUSION: Findings suggest reaccumulation of right pneumothorax with both right-sided chest tubes unchanged in position. Chest X-Ray 12/19/17 10:08 CONCLUSION: 1. 2 right chest tubes are present and no pneumothorax is identified. 2. Stable bilateral airspace consolidation primarily in the lower lung zones. Chest X-Ray 12/20/17 06:00 CONCLUSION: 1. Decrease in size of right apical pneumothorax to 4 mm. 2. Diffuse bilateral airspace consolidation similar in severity and distribution to prior. Objective Remarks: GENERAL: 62-year-old middle-aged female, lying in bed, intubated, sedated, critically ill. HEENT: Normocephalic. Atraumatic. Pupils equal, round, reactive, conjugate. Mucous membranes are moist NECK: Trachea is midline. There is no JVD. CHEST: Equal chest rise. PRVC. 100% FiO2. Two right-sided chest tubes with 3 + air leak. Minimal subcutaneous air CARDIOVASCULAR: Tachycardic rate, regular rhythm. On vasopressin infusion ABDOMEN: Soft, nontender, nondistended. No guarding. MUSCULOSKELETAL: Pulses 2+. No peripheral edema. NEUROLOGICAL: RASS -3. Withdraws to pain x4. Does not follow commands. Assessment and Plan - Assessment and Plan Plan: Neuro/Psych: Acute metabolic encephalopathy Possible seizure disorder Currently on midazolam drip at 4 mg an hour and fentanyl drip at 100 magdalene grams an hour for sedation/analgesia while intubated Frequent neurochecks goal RASS -2 She was started on anticonvulsants and her initial admission 11/23. Valproic acid 500 mg 3 times daily. Check level was 40 810/[address] 12/17- for acute disease EEG - Diffuse slowing consistent with a moderate diffuse encephalopathy. No epileptiform activity Acetaminophen 650 by tube every 6 hours as needed fever Continue quetiapine 25 mg daily/home medication Holding tizanidine 4 mg daily Respiratory: Acute hypoxic and hypercarbic respiratory failure Acute severe bilateral multifocal healthcare associated pneumonia Possible aspiration pneumonia Spontaneous right-sided tension pneumothorax Subcutaneous Emphysema Status post emergent chest tube 12/17 and second emergent chest tube 12/17: To - 40 cmH2O suction. 0/[address] surgery/Dr. Lynn following A.m. chest x-ray revealed improved pneumothorax only 4 mm Vent bundle PRVC ventilation 26/500/0.9/ Epoprostenol aerosolized added 12/19 Head of bed elevated Albuterol/ipratropium aerosols every 4 hours with albuterol aerosols every 2 hours as needed dyspnea Wean FiO2 for goal SPO2 greater than 90% Spontaneous breathing trials when clinically indicated Follow-up a.m. ABG 12/21 along with chest x-ray Cardiovascular: Septic shock Elevated troponin Type II NSTEMI secondary to demand ischemia Hyperlipidemia Holding lisinopril 30 mg daily/home medication. Resume pravastatin 80 mg daily when clinically indicated Currently on vasopressin drip for goal map greater than 65 stress dose hydrocortisone 100 mg IV every 8 hours added Trend troponins. Will not anticoagulate. Unlikely to be ACS. Renal: Acute kidney injury Secondary to shock continue Jacek Frequent urine output monitoring Daily creatinine Additional IV fluids and maintenance fluids -- Strict I/Os FEN/GI: Acute protein calorie malnutritionmoderate Lactic acidosis Severe colitis Enterovirus colitis C. difficile colitis Hyperammonemia Acute hypokalemia Acute hypophosphatemia Acute hypomagnesia Acute hypernatremia Currently on lactulose 30 cc twice daily \Recheck ammonia level in a.m. 12/20 Maintenance IV fluids have been discontinued Place orogastric tube to low intermittent wall suction Start tube feeding with Jevity 1.5 goal 30 cc an hour ICU electrolyte protocol Daily BMP, magnesium, phosphorus Trend lactates Lactulose/polythene glycol twice daily Holding dicyclomine 20 mg 3 times daily On one quarter normal saline with 10 mg KCl 84 cc an hour Heme/ID: C. difficile colitis Enterovirus colitis Septic shock Healthcare associated multifocal pneumonia Possible gram-positive cocci bacteremia Early empyema Vancomycin IV/p.o. with pharmacy dosing Cefepime, metronidazole, azithromycin and micafungin Pleural fluid 12/17 -gram-positive rods, gram-negative rods, yeast 12/17 -sputum -Klebsiella 12/17 blood-strep viridians/coag negative staph Infectious disease consultation Endocrine: Acute hypoglycemia- resolving. Sliding scale insulin Accu-Cheks every 6 hours to maintain euglycemia Prophylaxis: GI Prophylaxis Famotidine DVT Prophylaxis -- SCDs Subcu heparin Lines: 12/17 femoral triple-lumen catheter 12/17 right radial arterial line 12/17 right 28 Rwandan chest tube to -40 cm suction 12/17 right 32 Rwandan chest tube to -40 cm suction 12/17 Read Critical care time 35 minutes
[2017-12-20] MEDS: Potassium Chloride Inj 20 MEQ, Sodium Chloride 23.4% Inj 38.5 MEQ in Water for Inj, Ste... IV.CONT SCH ×2 (12:20→22:53)
[2017-12-20] MEDS ORDERED: Calcium Chloride Inj 1 GM in Dextrose 5% in Water Inj 100 ML IV.SIG ONE ×2 (13:00)
--- NOTE | 2017-12-20 13:18 | P.DIET ---
Nutritional Evaluation Type of nutrition evaluation: initial Nutrition consult regarding: Tube Feeding Objective - Diagnosis Septic Shock, Resp Failure, hypoglycemia - Objective % IBW: 123 Body Weight Used for Calculations: Actual (72.7 kg ) Energy Needs - Lower Range (kCal/kg): 25 Energy Needs - Upper Range (kCal/kg): 30 Lower Limit kCal/kg (kCals): 1,818 Upper Limit kCal/kg (kCals): 2,181 Lower Limit Protein Factor (Grams per Kg): 1.1 Upper Limit Protein Factor (Grams per Kg): 1.4 Lower Protein Needs (Protein): 80 Upper Protein Needs (Protein): 102 Dietitian Reviewed in Medical Record: Curent medications, Intake & Output, Labs , Medical history, Tube feeding Diet Order: NPO Objective Comments: PM includes: HTN, Chronic Pain, HLD, MDRO Labs include: Na 148, K 3.1, Random Glucose 123, Phosphorus 1.2, Ammonia 35 Mes include: Pepcid, Novolog, Lactulose, Flagyl, Pravachol, Seroquel +BM Assessment Assessment: Pt is at nutritional risk r/t need for TF'ing. To best meet pt's needs, Rec TF' ing w/Vital 1.5 goal rate 55ml/hr to offer 1980 kcal, 89g protein and 1008ml free water. Labs reviewed. Wt changes noted. Recommendations: To best meet pt's needs, Rec TF'ing w/Vital 1.5 goal rate 55ml/hr Dietitian to Monitor: Lab values, Electrolytes, Glucose level, Intake & Output, Tube feeding tolerance, Weight change, Medical course
[2017-12-20] MEDS: Vasopressin Inj 40 UNIT in Dextrose 5% in Water Inj 98 ML IV.CONT SCH ×2 (15:17)
[2017-12-20] MEDS: fentaNYL 10 mcg/mL Premix Drip 2,500 MCG/250 ML BAG IV.SIG PRN (17:43)
[2017-12-20 18:31] LABS: Anion Gap 10 meq/L (5-15); Blood Urea Nitrogen 22 mg/dL (7-18); Carbon Dioxide 20.1 meq/L (21.0-32.0); Chloride 118 meq/L (98-107); Glomerular Filtration Rate Greater Than 89 mL/min (>89); Glucose,Random 124 mg/dL (74-106); Magnesium 2.4 mg/dL (1.5-2.5); Phosphorus 1.8 mg/dL (2.5-4.9); Potassium 3.4 meq/L (3.5-5.1); Sodium 148 meq/L (136-145)
[2017-12-20] MEDS: Micafungin Inj 150 MG in Sodium Chlor 0.9% Inj 100 ML IV.SIG SCH (18:41)
[2017-12-20 18:45] LABS: Calcium-Albumin Corrected 8.7 mg/dL (8.5-10.1); Total Protein 4.1 g/dL (6.4-8.2)
[2017-12-20] MEDS: QUEtiapine 25 MG Tablet PO SCH (22:05)
[2017-12-21] MEDS: Insulin NovoLOG Aspart Correctional Sugar Inj SQ SCH ×4 (01:02→18:34)
[2017-12-21] MEDS: Oral Hygiene Kit OROPHARYNG SCH ×4 (01:02→16:20)
[2017-12-21] MEDS: Midazolam 50 MG/50 ML Inj 50 MG/50 ML BAG IV.CONT PRN ×3 (02:49→21:27)
--- NOTE | 2017-12-21 03:54 | XR ---
EXAM DATE: 12/21/2017 3:41 AM EDT AGE/SEX: 62 years / Female INDICATIONS: Shortness of breath, possible pulmonary disease. CLINICAL DATA: This is the patient's subsequent encounter. Patient reports that signs and symptoms h ave been present for 1 week and indicates a pain score of Nonresponsive. MEDICAL/SURGICAL HISTORY: Hypertension. None. COMPARISON: C, CHEST 1V SINGLE AP, 12/20/2017. . FINDINGS: Worsening bilateral pulmonary opacities, left, greater than right. 2 right chest tubes are seen. No p erceptible pneumothorax but there is marked increase in bilateral chest wall and visualized lower nec k emphysema. Endotracheal tube tip is approximately 3 cm above the neli. Nasogastric tube courses in the stomach . CONCLUSION: 1. Large amount of chest wall and neck soft tissue emphysema present, much worse than yesterday. No definite pneumothorax. Right chest tubes remain in place. 2. Worsening bilateral airspace disease, left more so than right. Electronically signed by: Pato Noel MD 12/21/2017 3:52 AM EDT
--- NOTE | 2017-12-21 05:34 | CT ---
EXAM DATE: 12/21/2017 5:16 AM EDT AGE/SEX: 62 years / Female INDICATIONS: Follow up abnormal chest x-rays; airspace disease, chest wall and neck soft tissue emph ysema. Chest tube in place; evaluate for pneumothorax. CLINICAL DATA: This is the patient's subsequent encounter. Patient reports that signs and symptoms h ave been present for 4 - 6 days and indicates a pain score of Nonresponsive. MEDICAL/SURGICAL HISTORY: Hypertension. C-diff . Back surgery RADIATION DOSE: 17.95 CTDI (mGy) COMPARISON: [facility] – [place], [place] CHEST W/O CONTRAST, 12/17/2017. . TECHNIQUE: Multiple contiguous axial images were obtained through the chest without contrast. Image s were obtained in suspended respiration using multiple row detector helical technique. Using automa sukhjinder exposure control and adjustment of the mA and/or kV according to patient size, radiation dose was kept as low as reasonably achievable to obtain optimal diagnostic quality images. DICOM format imag e data is available electronically for review and comparison. FINDINGS: 2 right chest tubes are in place. There is a moderate-sized right pneumothorax anteriorly. There is a lso pericardial and mediastinal air. Large amount of chest wall emphysema present. No tension compone nt seen. No pneumothorax on the left. Patchy infiltrates are seen of both lungs. There is dense consolidation of both bases. 3.7 cm cavitar y lesion seen of the right lower lobe. A small pleural effusion is present on the left. Endotracheal tube tip is approximately 4 cm above the neli. There is a nasogastric tube coiled in t he stomach. CONCLUSION: 1. Moderate size right pneumothorax without tension. Also pneumopericardium and pneumomediastinum. M assive chest wall emphysema. 2. Bilateral airspace disease. 3.7 cm bilobed cavitary lesion of the right lower lobe. 3. Small left pleural effusion. No left pneumothorax. Electronically signed by: Pato Noel MD 12/21/2017 5:32 AM EDT
[2017-12-21] MEDS: Vancomycin Inj 1,250 MG in Sodium Chlor 0.9% Inj 250 ML IV.SIG SCH (05:45)
[2017-12-21 07:10] LABS: Baso % (Auto) 0.2 % (0.0-2.0); Hematocrit 22.4 % (35.0-46.0); Hemoglobin 7.6 gm/dL (11.6-15.3); Lymph # (Auto) 0.5 th/mm3 (1.0-4.8); Lymph % (Auto) 3.1 % (9.0-44.0); Mean Corpuscular Hemoglobin 32.5 pg (27.0-34.0); Mean Corpuscular Volume 95.7 fL (80.0-100.0); Mean Platelet Volume 9.3 fL (7.0-11.0); Mono # (Auto) 0.6 th/mm3 (0.0-0.9); Mono % (Auto) 4.4 % (0.0-8.0); Neut # (Auto) 13.7 th/mm3 (1.8-7.7); Neut % (Auto) 92.3 % (16.0-70.0); Platelet Count 191 th/mm3 (150-450); Red Blood Count 2.35 mil/mm3 (4.00-5.30); Red Cell Distribution Width 15.6 % (11.6-17.2); White Blood Count 14.9 th/mm3 (4.0-11.0)
--- NOTE | 2017-12-21 07:31 | P.PCN ---
Date of procedure: 12/21/17 Procedure: Procedure: Right chest tube placement Indication: Acute recurrent pneumothorax despite 2 existing chest tubes. Details of procedure: The patient was laid supine. The lateral chest wall was cleaned with ChloraPrep twice. Regional sterile drapes were applied. 1% lidocaine was used for local anesthesia and injected into the subcutaneous and deep muscle tissues. A 2 cm skin incision was made with a scalpel blade. A hemostat was used for blunt dissection. Upon dissection noted that the tissues were dissected apart by large amount of subcut air and this resulted in a large subcutaneous defect that was connected to the space with the two existing chest tubes. Avoided this approach due to high risk of chest wall abscess and empyema. Additional 2 cm incision was made anterior and superior to that and hemostat was used for blunt dissection The hemostat was entered into the pleural space superior to the rib. I explored the wound with my finger. A size 32 Armenian chest tube was inserted with a Anette clamp into the pleural cavity and directed toward the apex . 2-0 silk was used to close the wound and to secure the chest tube. A sterile Vaseline gauze dressing was applied. The chest tube was connected to a Pleur-evac drainage system. There was a persistent 3-4+ air leak. There was serous output from the chest tube. Estimated blood loss: <5 mL Complications: None. Stat chest x-ray demonstrates satisfactory chest tube position at the apex. Extensive subcut emphysema. I am unable to appreciate pneumothorax.
[2017-12-21 07:34] LABS: Anion Gap 10 meq/L (5-15); Blood Urea Nitrogen 23 mg/dL (7-18); Calcium 6.7 mg/dL (8.5-10.1); Carbon Dioxide 19.7 meq/L (21.0-32.0); Chloride 116 meq/L (98-107); Glomerular Filtration Rate Greater Than 89 mL/min (>89); Glucose,Random 126 mg/dL (74-106); Magnesium 2.1 mg/dL (1.5-2.5); Phosphorus 1.4 mg/dL (2.5-4.9); Potassium 3.5 meq/L (3.5-5.1); Sodium 146 meq/L (136-145)
[2017-12-21] MEDS: Chlorhexidine Gluconate 2% 1 Pack (2 Cloths) TOPICAL SCH (07:37)
[2017-12-21] MEDS: Epoprostenol (30,000/mL) Neb 75 ML in Sodium Chlor 0.9% Inj 25 ML NEB SCH ×3 (07:38→21:34)
[2017-12-21] MEDS: Heparin - SQ 10,000 UNITS/ML Vial SQ SCH ×3 (07:39→21:26)
[2017-12-21] MEDS: Hydrocortisone Sod Succinate 100 MG Vial IV.PUSH SCH ×3 (07:40→21:26)
[2017-12-21 07:48] LABS: Calcium-Albumin Corrected 8.2 mg/dL (8.5-10.1); Total Protein 4.3 g/dL (6.4-8.2)
[2017-12-21] MEDS: Chlorhexidine 0.12% Oral Kit 15 ML UDC OROPHARYNG SCH ×2 (08:12→21:26)
[2017-12-21 08:46] LABS: Lymphocytes 1 % (9-44); Monocytes 3 % (0-8); Tallied Nucleated RBC 1 (0-0)
[2017-12-21 08:47] LABS: Dohle Bodies Present; Platelet Estimate Normal (Normal); Platelet Morphology Normal (Normal); Toxic Granulation 1+
[2017-12-21] MEDS: Potassium Chloride Inj 20 MEQ, Sodium Chloride 23.4% Inj 38.5 MEQ in Water for Inj, Ste... IV.CONT SCH ×2 (08:47→17:51)
--- NOTE | 2017-12-21 08:47 | XR ---
EXAM DATE: 12/21/2017 8:23 AM EDT AGE/SEX: 62 years / Female INDICATIONS: Shortness of breath. CLINICAL DATA: This is the patient's subsequent encounter. Patient reports that signs and symptoms h ave been present for 1 week and indicates a pain score of Nonresponsive. MEDICAL/SURGICAL HISTORY: Hypertension. None. COMPARISON: [facility] [place], 12/21/2017. . FINDINGS: Progression of the extensive subcutaneous emphysema is present with [address] on the rig ht. ET tube is above the neli. Nasogastric tube across the GE junction. Coarse parenchymal changes are seen in both lungs. CONCLUSION: Progression of the extensive subcutaneous emphysema with [address] on the right. Electronically signed by: Farhat Yates MD 12/21/2017 8:45 AM EDT
[2017-12-21] MEDS: Vasopressin Inj 40 UNIT in Dextrose 5% in Water Inj 98 ML IV.CONT SCH ×2 (08:48)
[2017-12-21] MEDS: Azithromycin Inj 500 MG in Sodium Chlor 0.9% Inj 250 ML IV.SIG SCH (09:56)
[2017-12-21] MEDS: Polyethylene Glycol 3350 17 GM Packet PO SCH ×2 (09:58→21:35)
[2017-12-21] MEDS: Senna/Docusate Sodium 8.6/50 MG Tablet PO SCH ×2 (09:58→21:26)
[2017-12-21] MEDS: Famotidine 20 MG Tablet PO SCH ×2 (09:58→21:26)
[2017-12-21] MEDS: Carboxymethylcellulose 0.5% Opth Drops 15 ML Bottle EACH EYE SCH ×2 (09:59→21:35)
[2017-12-21 11:00] LABS: ABG Base Excess -6.8 mmol/L (-2-2); ABG PCO2 35 mmHg (38-42); ABG PO2 61 mmHG (61-120)
--- NOTE | 2017-12-21 11:10 | P.PNCC ---
Subjective Subjective Remarks/Hospital Course: This is a 62yF who was originally admitted on 11/23 with a diagnosis of colitis, found to have enterovirus. discharged on 12/11 at that time on PO vancomycin, but came back on 12/13 with altered mental status and hypoglycemia, again discharged on 12/15. She was mildly fatigued on 12/16 according to her and asked to wait another day before traveling back to her home in [place]. This morning, she was unarousable and her called 911. She was intubated upon arrival to the emergency department for agonal respirations. CXR demonstrates bilateral multifocal pneumonia. She is febrile, hypotensive. CVL placed in the ER and vasopressors initiated after 2L bolus crystalloid. CT chest/abd/pelvis demonstrates right pneumothorax, densely consolidated right lower lobe, bilateral pulmonary infiltrates, evidence of ongoing colitis. Patient continue to be unstable. Immediately after identifying ptx on CT scan, I emergently placed right chest tube with some improvements in hemodynamics, but ongoing distributive shock persists. I placed arterial line. No additional information available from the patient, ROS unobtainable. In discussion with the , she has not had any new complaints in the 48h she was home, and other than mild fatigue last night, no new complaints. She was able to walk to the bathroom without assistance yesterday. 12/18: shock remains. now on levophed, vasopressin, phenylephrine. second chest tube placed overnight for worsening SQ air. acidosis remains and is severe. 12/19: Afebrile. Remains on vasopressin drip only. On stress dose hydrocortisone. Evaluated by CT surgery. Not a candidate for intervention at the present time. Chest tube continues to leak. Epoprostenol added today 12/20: Afebrile. FiO2 has decreased and is currently 70%. Currently replacing potassium, phosphorus and magnesium. Recheck later this afternoon. Less chest tube leak today down to 1 chamber. SUBJECTIVE: 12/21: Overnight, worsening subcutaneous emphysema. A third chest tube placed by overnight singing messenger after discussion with cardiothoracic surgery. Currently hemodynamically stable. Replacing phosphorus today. To be evaluated by CT surgery today. Objective Vital Signs / I&O: Vital Signs 12/20/17 11:40 12/20/17 12:00 12/20/17 13:00 Temperature 97.8 F Pulse Rate 83 91 H 97 H Respiratory Rate 26 H 26 H 26 H Blood Pressure 117/69 97/59 L Pulse Oximetry 97 96 100 12/20/17 14:00 12/20/17 14:23 12/20/17 15:00 Temperature Pulse Rate 73 67 112 H Respiratory Rate 26 H 26 H 28 H Blood Pressure 117/66 117/66 114/73 Pulse Oximetry 100 98 87 L 12/20/17 15:45 12/20/17 16:00 12/20/17 17:00 Temperature 98.0 F Pulse Rate 94 H 86 75 Respiratory Rate 26 H 21 9 L Blood Pressure 116/70 118/76 Pulse Oximetry 96 94 L 93 L 12/20/17 18:00 12/20/17 19:00 12/20/17 20:00 Temperature 97.7 F Pulse Rate 93 H 89 73 Respiratory Rate 26 H 9 L 26 H Blood Pressure 115/71 102/66 115/66 Pulse Oximetry 94 L 92 L 93 L 12/20/17 20:58 12/20/17 21:00 12/20/17 22:00 Temperature Pulse Rate 72 101 H 93 H Respiratory Rate 26 H 26 H 24 Blood Pressure 110/65 121/68 Pulse Oximetry 90 L 93 L 12/20/17 23:00 12/21/17 00:00 12/21/17 00:04 Temperature 97.8 F Pulse Rate 97 H 106 H 100 H Respiratory Rate 18 19 26 H Blood Pressure 111/67 110/66 Pulse Oximetry 91 L 88 L 12/21/17 00:05 12/21/17 01:00 12/21/17 02:00 Temperature Pulse Rate 89 94 H Respiratory Rate 26 H 26 H 22 Blood Pressure 119/72 112/76 Pulse Oximetry 92 L 93 L 91 L 12/21/17 03:00 12/21/17 03:24 12/21/17 03:29 Temperature Pulse Rate 109 H 100 H Respiratory Rate 21 27 H 27 H Blood Pressure 145/86 H Pulse Oximetry 83 L 98 12/21/17 04:00 12/21/17 04:53 12/21/17 05:00 Temperature Pulse Rate 102 H 108 H 115 H Respiratory Rate 26 H 34 H 33 H Blood Pressure 130/75 117/76 129/80 Pulse Oximetry 95 100 100 12/21/17 05:15 12/21/17 05:26 12/21/17 06:00 Temperature Pulse Rate 129 H 119 H Respiratory Rate 36 H 30 H Blood Pressure 114/67 101/58 L Pulse Oximetry 99 86 L 80 L 12/21/17 07:00 12/21/17 07:29 12/21/17 08:52 Temperature Pulse Rate 102 H 118 H 97 H Respiratory Rate 27 H 26 H 30 H Blood Pressure 121/69 130/81 Pulse Oximetry 97 97 12/21/17 08:53 Temperature Pulse Rate Respiratory Rate 28 H Blood Pressure Pulse Oximetry 97 Intake & Output 12/20/17 12/21/17 12/21/17 18:59 06:59 18:59 Intake Total 3240.5 / 3240.5 1369.625 / 7522.803 8807.125 / 1582.125 Output Total 695 / 695 Balance 2545.5 / 2545.5 1369.625 / 6164.954 9637.125 / 1582.125 Intake: IV 3015.5 / 3015.5 1369.625 / 5144.542 2302.125 / 1582.125 Versed Inj 50 mg In 50 ml @ 2 50 / 50 50 / 50 MG/HR 2 mls/hr IV.CONT TITRATE PRN Rx#:[id number] KCl Inj 20 MEQ Sodium Chloride 1019.625 / 5813.328 2050.625 / 1019.625 23.4% Inj 38.5 MEQ In Sterile Water for Inj 1,000 ML @ 100 mls/hr IV.CONT .[id number] [facility] Rx# :[id number] NS Inj 1,000 ML @ 125 mls/hr IV 1125 / 1125 0 / 0 .CONT .Q8H [facility] Rx#:[id number] Pitressin Inj 40 UNIT In D5W 100 / 100 100 / 100 Inj 98 ML @ 0.04 UNITS/MIN 6 mls/hr IV.CONT CONT [facility] Rx#: [id number] Azithromycin Inj 500 MG In NS 250 / 250 Inj 250 ML @ 250 mls/hr IV.SIG Q24H [facility] Rx#:[id number] Calcium Chloride Inj 1 GM In 110 / 110 D5W Inj 100 ML @ 110 mls/hr IV. SIG ONCE ONE Rx#:[id number] Maxipime Inj 1,000 MG In NS Inj 100 / 100 100 / 100 100 ML @ 200 mls/hr IV.SIG Q8H [facility] Rx#:[id number] Magnesium Sulfate Inj 4 GM In 108 / 108 D5W Inj 100 ML @ 25 mls/hr IV. SIG ONCE ONE Rx#:[id number] Mycamine Inj 150 MG In NS Inj 100 / 100 100 ML @ 100 mls/hr IV.SIG Q24H [facility] Rx#:[id number] KCl 40 mEq Premix Inj 40 meq In 100 / 100 100 ml @ 25 mls/hr IV.SIG Q2H PRN Rx#:[id number] Potassium Phosphate Inj 30 MMOL 260 / 260 In NS Inj 250 ML @ 43.333 mls/ hr IV.SIG ONCE ONE Rx#:[id number] Vancomycin Inj 1,250 MG In NS 262.5 / 262.5 262.5 / 262.5 Inj 250 ML @ 250 mls/hr IV.SIG Q24H [facility] Rx#:[id number] fentaNYL 10 mcg/mL Premix Drip 250 / 250 2,500 mcg In 250 ml @ 50 MCG/HR 5 mls/hr IV.SIG TITRATE PRN Rx #:[id number] Flagyl 500 MG Inj 100 ML @ 100 200 / 200 100 / 100 100 / 100 mls/hr IV.SIG Q6HR [facility] Rx#: [id number] Flolan (30,000 ng/mL) Neb 75 ML 100 / 100 100 / 100 In NS Inj 25 ML @ 5 mls/hr NEB Q8H [facility] Rx#:[id number] Tube Feeding 225 / 225 Output: Urine Amount (Catheter) 625 / 625 Indwelling Urethral Catheter 625 / 625 Chest Tube Drainage 70 / 70 #1 Right Upper 30 / 30 #2 Right 40 / 40 Other: Date of Last Bowel Movement 12/20/17 12/20/17 Result Diagrams: 12/21/17 04:40 12/21/17 04:40 Other Results: Microbiology 12/17/17 08:24 Blood - Peripheral Aerobic Blood Culture - Preliminary No growth in 4 days 12/17/17 08:24 Blood - Peripheral Anaerobic Blood Culture - Preliminary No growth in 4 days 12/17/17 08:10 Blood - Peripheral Aerobic Blood Culture - Preliminary No growth in 4 days 12/17/17 08:10 Blood - Peripheral Anaerobic Blood Culture - Final Staphylococcus coag negative Viridans streptococcus grp 12/19/17 00:56 Fluid - Pleural fluid Gram Stain - Final 12/19/17 00:56 Fluid - Pleural fluid Body Fluid Culture - Preliminary Karla glabrata gram positive rods 12/19/17 00:30 Fluid - Pleural fluid Gram Stain - Final 12/19/17 00:30 Fluid - Pleural fluid Body Fluid Culture - Preliminary Klebsiella pneumoniae Karla albicans Karla glabrata gram positive rods 12/17/17 15:55 Fluid - Pleural fluid Gram Stain - Final 12/17/17 15:55 Fluid - Pleural fluid Body Fluid Culture - Preliminary gram positive rods Karla glabrata Klebsiella pneumoniae 12/19/17 11:30 Bronchial - Bronchial Gram Stain - Final 12/19/17 11:30 Bronchial - Bronchial Bronchial Culture - Preliminary gram negative rods 12/19/17 11:30 Bronchial Washings - Bronchial Fungal Smear - Final Rare budding yeast 12/17/17 15:54 Sputum - Endotracheal Gram Stain - Final 12/17/17 15:54 Sputum - Endotracheal Sputum Culture - Final Klebsiella pneumoniae 12/17/17 15:55 Stool Stool for WBCs - Final Few WBC's 12/17/17 13:54 Urine - Catheterized Urine Streptococcus pneumoniae Antigen ( M - Final Presumptive negative for streptococcus pneumoniae antigen, suggesting no current or recent infection. Infection due to Streptococcus pneumoniae cannot be ruled out since the antigen present in the sample may be below the detection limit of the test. 12/17/17 13:54 Urine - Catheterized Urine Legionella Antigen - Final Presumptive negative for Legionella pneumophila serogroup 1 antigen in urine, suggesting no recent or recurrent infection. Infection due to Legionella cannot be ruled out since other serogroups and species may cause disease, antigen may not be present in urine in early infection, and the level of antigen present in the urine may be below the detection limit of the test. 12/17/17 15:55 Nasal Aspirate Influenza Types A,B Antigen - Final Negative for FLU A and B antigen Infection due to influenza A or B cannot be ruled out since the antigen present in the sample may be below the detection limit of the test. Imaging: Chest X-Ray 12/17/17 00:00 CONCLUSION: 1. Persistent bilateral airspace infiltrates. 2. Interval placement of a right-sided thoracostomy tube. There does appear to be an apical lateral 1.5 cm right pneumothorax. 3. Extensive subcutaneous and deep tissue emphysematous changes about the right hemithorax. Chest X-Ray 12/17/17 00:00 CONCLUSION: Right-sided chest tube with slight increase in right pneumothorax compared with earlier exam. Slight increase in left basilar airspace disease since earlier exam. Slight worsening of subcutaneous air with extension into the left hemithorax and neck. Chest X-Ray 12/17/17 08:02 CONCLUSION: Satisfactory support line and tube positioning. Bilateral infiltrates. Head CT 12/17/17 08:02 CONCLUSION: 1. 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 2. Otherwise negative. . Abdomen/Pelvis CT 12/17/17 10:45 CONCLUSION: 1. Moderate diffuse colonic wall thickening exaggerated by lack of colonic distention. This may be due to low-protein state/edema. However, differential considerations include infectious and inflammatory colitis. 2. Moderate-sized right hydropneumothorax with airspace disease in the lung bases as described on chest CT. 3. Additional ancillary findings, as above. Chest CT 12/17/17 10:45 CONCLUSION: 1. Small to moderate-sized right-sided hydropneumothorax. 2. Right lower lobe consolidation with air bronchograms. Differential considerations include aspiration and lobar pneumonia. 3. Patchy diffuse groundglass opacities most prominently in the upper lobes bilaterally. Differential considerations include bronchopneumonia, atypical infection and atypical pulmonary edema. 4. Mild mediastinal adenopathy, likely reactive. Chest X-Ray 12/17/17 22:00 CONCLUSION: Placement of second right-sided chest tube with near complete resolution of previous right pneumothorax. Chest X-Ray 12/18/17 05:00 CONCLUSION: 1. Stable bilateral multifocal consolidative infiltrates. 2. 2 right chest drainage tubes in place; no pneumothorax seen. Chest X-Ray 12/19/17 00:00 CONCLUSION: 1. 2 right chest tubes remain present and there is now a small pneumothorax. There is also increased right chest wall soft tissue air. 2. Stable severe bilateral airspace consolidation. Chest X-Ray 12/19/17 05:00 CONCLUSION: Findings suggest reaccumulation of right pneumothorax with both right-sided chest tubes unchanged in position. Chest X-Ray 12/19/17 10:08 CONCLUSION: 1. 2 right chest tubes are present and no pneumothorax is identified. 2. Stable bilateral airspace consolidation primarily in the lower lung zones. Chest X-Ray 12/20/17 06:00 CONCLUSION: 1. Decrease in size of right apical pneumothorax to 4 mm. 2. Diffuse bilateral airspace consolidation similar in severity and distribution to prior. Chest X-Ray 12/21/17 02:48 CONCLUSION: 1. Large amount of chest wall and neck soft tissue emphysema present, much worse than yesterday. No definite pneumothorax. Right chest tubes remain in place. 2. Worsening bilateral airspace disease, left more so than right. Chest CT 12/21/17 04:03 CONCLUSION: 1. Moderate size right pneumothorax without tension. Also pneumopericardium and pneumomediastinum. Massive chest wall emphysema. 2. Bilateral airspace disease. 3.7 cm bilobed cavitary lesion of the right lower lobe. 3. Small left pleural effusion. No left pneumothorax. Chest X-Ray 12/21/17 07:31 CONCLUSION: Progression of the extensive subcutaneous emphysema with [address] on the right. Objective Remarks: GENERAL: 62-year-old middle-aged female, lying in bed, intubated, sedated, critically ill. HEENT: Normocephalic. Atraumatic. Pupils equal, round, reactive, conjugate. Positive left scleral edema. There is subcu air. Mucous membranes are moist NECK: Trachea is midline. Significant subcu edema CHEST: Equal chest rise. PRVC. 100% FiO2. 3 right-sided chest tubes, one with 5 + air leak. Significant bilateral subcutaneous edema CARDIOVASCULAR: Tachycardic rate, regular rhythm. S1, S2 no S4. ABDOMEN: Soft, nontender, nondistended. No guarding. MUSCULOSKELETAL: Pulses 2+. Trace bilateral lower extremity peripheral edema. NEUROLOGICAL: RASS -3. Withdraws to pain x4. Does not follow commands. Assessment and Plan - Assessment and Plan Plan: Neuro/Psych: Acute metabolic encephalopathy Possible seizure disorder Currently on midazolam drip at 5 mg an hour and fentanyl drip at 50 magdalene grams an hour for sedation/analgesia while intubated Frequent neurochecks goal RASS -2 She was started on anticonvulsants and her initial admission 11/23. Valproic acid 500 mg 3 times daily. Check level was 40 12/[address] 12/17- for acute disease EEG - Diffuse slowing consistent with a moderate diffuse encephalopathy. No epileptiform activity Acetaminophen 650 by tube every 6 hours as needed fever Continue quetiapine 25 mg daily/home medication Holding tizanidine 4 mg daily Respiratory: Acute hypoxic and hypercarbic respiratory failure Acute severe bilateral multifocal healthcare associated pneumonia Possible aspiration pneumonia Spontaneous right-sided tension pneumothorax Subcutaneous Emphysema Status post emergent chest tube 12/17 and second emergent chest tube 12/17: To - 40 cmH2O suction. Third chest tube placed 12/[address] surgery/Dr. Lynn following A.m. chest x-ray revealed significant subcu emphysema. Improved pneumothorax CT thorax overnight 12/12 revealed significant 3.7 cm moderate right pneumothorax without tension. Pneumopericardium and significant subcutaneous emphysema. Vent bundle PRVC ventilation 26/500/0.85/8/55 Epoprostenol aerosolized added 12/19 Head of bed elevated Albuterol/ipratropium aerosols every 4 hours with albuterol aerosols every 2 hours as needed dyspnea Wean FiO2 for goal SPO2 greater than 90% Spontaneous breathing trials when clinically indicated Follow-up a.m. ABG 12/21 still pending at time of dictation Cardiovascular: Septic shock Elevated troponin Type II NSTEMI secondary to demand ischemia Hyperlipidemia Holding lisinopril 30 mg daily/home medication. Resume pravastatin 80 mg daily when clinically indicated Currently on vasopressin drip for goal map greater than 65 stress dose hydrocortisone 100 mg IV every 8 hours added Trend troponins. Will not anticoagulate. Unlikely to be ACS. Renal: Acute kidney injury Secondary to shock continue Read Frequent urine output monitoring Daily creatinine Additional IV fluids and maintenance fluids -- Strict I/Os FEN/GI: Acute protein calorie malnutritionmoderate Lactic acidosis Severe colitis Enterovirus colitis C. difficile colitis Hyperammonemia Acute hypophosphatemia Acute hypernatremia Currently on lactulose 30 cc twice daily \Recheck ammonia level in a.m. 12/22 Maintenance IV fluids have been discontinued Place orogastric tube to low intermittent wall suction Start tube feeding with vital 1.5 goal 55 cc now. Trickle feeds today and start him metoclopramide 1 mg 3 times daily ICU electrolyte protocol Daily BMP, magnesium, phosphorus Trend lactates Lactulose/polythene glycol twice daily Holding dicyclomine 20 mg 3 times daily On one quarter normal saline with 10 mg KCl 50 cc an hour Heme/ID: C. difficile colitis Enterovirus colitis Septic shock Healthcare associated multifocal pneumonia Possible gram-positive cocci bacteremia Early empyema Vancomycin IV/p.o. with pharmacy dosing Cefepime, metronidazole, azithromycin and micafungin Bronchoscopy 12/19 with gram-negative rods Pleural fluid 12/19 with gram-negative rods Pleural fluid 12/17 -g Karla albicans/glabrata Klebsiella, gram-positive rods 12/17 -sputum -Klebsiella 12/17 blood-strep viridians/coag negative staph Infectious disease consultation Endocrine: Acute hypoglycemia- resolving. Sliding scale insulin Accu-Cheks every 6 hours to maintain euglycemia Prophylaxis: GI Prophylaxis Famotidine DVT Prophylaxis -- SCDs Subcu heparin Lines: 12/17 femoral triple-lumen catheter 12/17 right radial arterial line discontinued 12/21 12/17 right 28 [place] chest tube to -40 cm suction 12/17 right 32 [place] chest tube to -40 cm suction 12/17 -right #32 [place] chest tube to -40 cm suction 12/17 Read Critical care time 35 minutes
[2017-12-21] MEDS ORDERED: Potassium Phosphate Inj 30 MMOL in Sodium Chlor 0.9% Inj 250 ML IV.SIG ONE (12:00)
--- NOTE | 2017-12-21 15:48 | P.PNCV ---
- Note Subjective/Hospital Course: pt now has 3 right sided chest tube #3 has 2-3 = air leak , #2 +1 all to 40cm suction pt now off pressors remains sedated on vent 55% fio2 +8 peep may need to re-eval for repeat ct scan in am pt will not tolerate one lung ventilation at this during any surgery will continue to monitor Objective: Vital Signs - 24 hr 12/20/17 15:45 12/20/17 16:00 12/20/17 17:00 Temperature 98.0 F Pulse Rate 94 H 86 75 Respiratory Rate 26 H 21 9 L Blood Pressure 116/70 118/76 Pulse Oximetry 96 94 L 93 L 12/20/17 18:00 12/20/17 19:00 12/20/17 20:00 Temperature 97.7 F Pulse Rate 93 H 89 73 Respiratory Rate 26 H 9 L 26 H Blood Pressure 115/71 102/66 115/66 Pulse Oximetry 94 L 92 L 93 L 12/20/17 20:58 12/20/17 21:00 12/20/17 22:00 Temperature Pulse Rate 72 101 H 93 H Respiratory Rate 26 H 26 H 24 Blood Pressure 110/65 121/68 Pulse Oximetry 90 L 93 L 12/20/17 23:00 12/21/17 00:00 12/21/17 00:04 Temperature 97.8 F Pulse Rate 97 H 106 H 100 H Respiratory Rate 18 19 26 H Blood Pressure 111/67 110/66 Pulse Oximetry 91 L 88 L 12/21/17 00:05 12/21/17 01:00 12/21/17 02:00 Temperature Pulse Rate 89 94 H Respiratory Rate 26 H 26 H 22 Blood Pressure 119/72 112/76 Pulse Oximetry 92 L 93 L 91 L 12/21/17 03:00 12/21/17 03:24 12/21/17 03:29 Temperature Pulse Rate 109 H 100 H Respiratory Rate 21 27 H 27 H Blood Pressure 145/86 H Pulse Oximetry 83 L 98 12/21/17 04:00 12/21/17 04:53 12/21/17 05:00 Temperature Pulse Rate 102 H 108 H 115 H Respiratory Rate 26 H 34 H 33 H Blood Pressure 130/75 117/76 129/80 Pulse Oximetry 95 100 100 12/21/17 05:15 12/21/17 05:26 12/21/17 06:00 Temperature Pulse Rate 129 H 119 H Respiratory Rate 36 H 30 H Blood Pressure 114/67 101/58 L Pulse Oximetry 99 86 L 80 L 12/21/17 07:00 12/21/17 07:29 12/21/17 08:00 Temperature Pulse Rate 102 H 118 H 108 H Respiratory Rate 27 H 26 H 26 H Blood Pressure 121/69 130/81 119/73 Pulse Oximetry 97 97 92 L 12/21/17 08:52 12/21/17 08:53 12/21/17 09:00 Temperature 99.1 F Pulse Rate 97 H 93 H Respiratory Rate 30 H 28 H 21 Blood Pressure 116/68 Pulse Oximetry 97 98 12/21/17 09:45 12/21/17 10:00 12/21/17 10:16 Temperature Pulse Rate 98 H 108 H 110 H Respiratory Rate 20 19 34 H Blood Pressure 115/66 111/69 136/72 Pulse Oximetry 96 96 90 L 12/21/17 10:30 12/21/17 10:45 12/21/17 11:00 Temperature Pulse Rate 113 H 108 H 108 H Respiratory Rate 42 H 38 H 25 H Blood Pressure 122/69 123/75 119/65 Pulse Oximetry 99 94 L 94 L 12/21/17 11:15 12/21/17 11:50 Temperature Pulse Rate 109 H 111 H Respiratory Rate 25 H 30 H Blood Pressure 109/58 L Pulse Oximetry 91 L 93 L GENERAL: sedate d on vent / orally intubated SKIN: Warm and dry. HEAD: Normocephalic. EYES: No scleral icterus. No injection or drainage. NECK: Supple, trachea midline. No JVD or lymphadenopathy. CARDIOVASCULAR:slightly tachycardiac , general edema without murmurs, gallops, or rubs. RESPIRATORY: insp and exp wheezing , chest tube s x 3 to wall suction + air leak Breath sounds equal bilaterally. GASTROINTESTINAL: Abdomen soft, non-tender, nondistended. MUSCULOSKELETAL: No cyanosis, or edema. BACK: Nontender without obvious deformity. No CVA tenderness. Labs: Laboratory Results - last 12 hr 12/21/17 12/21/17 12/21/17 04:40 04:40 09:58 WBC 14.9 H RBC 2.35 L Hgb 7.6 L Hct 22.4 L MCV 95.7 MCH 32.5 MCHC 34.0 RDW 15.6 Plt Count 191 MPV 9.3 Prelim Diff (Auto) Slide review pending Neut % (Auto) 92.3 H Lymph % (Auto) 3.1 L [place] % (Auto) 4.4 Eos % (Auto) 0.0 Baso % (Auto) 0.2 Neut # (Auto) 13.7 H Lymph # (Auto) 0.5 L [place] # (Auto) 0.6 Eos # (Auto) 0.0 Baso # (Auto) 0.0 WBC Differential Manual diff final Seg Neuts % (Manual) 80 H Band Neuts % (Manual) 16 H Lymphocytes % (Manual) 1 L Monocytes % (Manual) 3 Abs Neuts (Manual) 14.3 H Nucleated RBCs/100 WBC 1 H Differential Comment . Toxic Granulation 1+ H Dohle Bodies Present H Platelet Estimate Normal Platelet Morphology Normal Puncture Site Patient Temperature O2 Saturation ABG pH ABG pCO2 ABG pO2 ABG HCO3 ABG O2 Content ABG Base Excess ABG Methemoglobin [place] Test Hemoglobin Carboxyhemoglobin O2 Delivery Device Vent Setting Inspired O2 Critical Value Sodium 146 H Potassium 3.5 Chloride 116 H Carbon Dioxide 19.7 L Anion Gap 10 BUN 23 H Creatinine 0.52 Estimated GFR Greater than 89 POC Glucose 112 H Random Glucose 126 H Calcium 6.7 L* Prot Corrected Calcium 8.2 L Phosphorus 1.4 L Magnesium 2.1 Total Protein 4.3 L 12/21/17 12/21/17 10:43 12:13 WBC RBC Hgb Hct MCV MCH MCHC RDW Plt Count MPV Prelim Diff (Auto) Neut % (Auto) Lymph % (Auto) [place] % (Auto) Eos % (Auto) Baso % (Auto) Neut # (Auto) Lymph # (Auto) [place] # (Auto) Eos # (Auto) Baso # (Auto) WBC Differential Seg Neuts % (Manual) Band Neuts % (Manual) Lymphocytes % (Manual) Monocytes % (Manual) Abs Neuts (Manual) Nucleated RBCs/100 WBC Differential Comment Toxic Granulation Dohle Bodies Platelet Estimate Platelet Morphology Puncture Site Art line Patient Temperature 98.6 O2 Saturation 88 L* ABG pH 7.33 L ABG pCO2 35 L ABG pO2 61 ABG HCO3 18 L ABG O2 Content 9.4 L ABG Base Excess -6.8 L ABG Methemoglobin 1.8 [place] Test Present Hemoglobin 7.5 L* Carboxyhemoglobin 0.9 O2 Delivery Device Ventilator Vent Setting Prvc/ac Inspired O2 55 Critical Value Yes Sodium Potassium Chloride Carbon Dioxide Anion Gap BUN Creatinine Estimated GFR POC Glucose 129 H Random Glucose Calcium Prot Corrected Calcium Phosphorus Magnesium Total Protein Result Diagrams: 12/21/17 04:40 12/21/17 04:40 - Plan (1) Respiratory failure (2) Pneumonia (1) Respiratory failure Qualifiers: Chronicity: acute Respiratory failure complication: hypoxia and hypercapnia Qualified Code(s): J96.01 - Acute respiratory failure with hypoxia; J96.02 - Acute respiratory failure with hypercapnia (2) Pneumonia Qualifiers: Pneumonia type: due to unspecified organism Laterality: bilateral Lung location: unspecified part of lung Qualified Code(s): J18.9 - Pneumonia, unspecified organism
[2017-12-21] MEDS: fentaNYL 10 mcg/mL Premix Drip 2,500 MCG/250 ML BAG IV.SIG PRN (17:54)
[2017-12-21] MEDS: Micafungin Inj 150 MG in Sodium Chlor 0.9% Inj 100 ML IV.SIG SCH (18:03)
--- NOTE | 2017-12-21 19:34 | P.PNID ---
Subjective Remarks: quite seek She was seen by CT surgery for BP fistula rep[air recommnedations, but she was assesse as a poor surgical candidate 2/2 high risk 2/[address] Isael Lynn - pt unlikely to tolerate single lung ventilation She now has 3 CTs Growing C glabrata from pleural fluid Lactobacilla and ham S Kleb Less BMs Requires less O2, less PEEP Antibiotics: vanco IV vanco PO flagyl cefepime azithro Allergies/Adverse Reactions: Allergies No Known Allergies Allergy (Verified 12/13/17 08:04) Objective Vital Signs 12/20/17 20:00 12/20/17 20:58 12/20/17 21:00 Temperature 97.7 F Pulse Rate 73 72 101 H Respiratory Rate 26 H 26 H 26 H Blood Pressure 115/66 110/65 Pulse Oximetry 93 L 90 L 12/20/17 22:00 12/20/17 23:00 12/21/17 00:00 Temperature 97.8 F Pulse Rate 93 H 97 H 106 H Respiratory Rate 24 18 19 Blood Pressure 121/68 111/67 110/66 Pulse Oximetry 93 L 91 L 88 L 12/21/17 00:04 12/21/17 00:05 12/21/17 01:00 Temperature Pulse Rate 100 H 89 Respiratory Rate 26 H 26 H 26 H Blood Pressure 119/72 Pulse Oximetry 92 L 93 L 12/21/17 02:00 12/21/17 03:00 12/21/17 03:24 Temperature Pulse Rate 94 H 109 H 100 H Respiratory Rate 22 21 27 H Blood Pressure 112/76 145/86 H Pulse Oximetry 91 L 83 L 12/21/17 03:29 12/21/17 04:00 12/21/17 04:53 Temperature Pulse Rate 102 H 108 H Respiratory Rate 27 H 26 H 34 H Blood Pressure 130/75 117/76 Pulse Oximetry 98 95 100 12/21/17 05:00 12/21/17 05:15 12/21/17 05:26 Temperature Pulse Rate 115 H 129 H Respiratory Rate 33 H 36 H Blood Pressure 129/80 114/67 Pulse Oximetry 100 99 86 L 12/21/17 06:00 12/21/17 07:00 12/21/17 07:29 Temperature Pulse Rate 119 H 102 H 118 H Respiratory Rate 30 H 27 H 26 H Blood Pressure 101/58 L 121/69 130/81 Pulse Oximetry 80 L 97 97 12/21/17 08:00 12/21/17 08:52 12/21/17 08:53 Temperature Pulse Rate 108 H 97 H Respiratory Rate 26 H 30 H 28 H Blood Pressure 119/73 Pulse Oximetry 92 L 97 12/21/17 09:00 12/21/17 09:45 12/21/17 10:00 Temperature 99.1 F Pulse Rate 93 H 98 H 108 H Respiratory Rate 21 20 19 Blood Pressure 116/68 115/66 111/69 Pulse Oximetry 98 96 96 12/21/17 10:16 12/21/17 10:30 12/21/17 10:45 Temperature Pulse Rate 110 H 113 H 108 H Respiratory Rate 34 H 42 H 38 H Blood Pressure 136/72 122/69 123/75 Pulse Oximetry 90 L 99 94 L 12/21/17 11:00 12/21/17 11:15 12/21/17 11:50 Temperature Pulse Rate 108 H 109 H 111 H Respiratory Rate 25 H 25 H 30 H Blood Pressure 119/65 109/58 L Pulse Oximetry 94 L 91 L 93 L 12/21/17 12:00 12/21/17 12:15 12/21/17 12:30 Temperature 99.1 F Pulse Rate 114 H 111 H 104 H Respiratory Rate 28 H 26 H Blood Pressure 121/72 104/62 Pulse Oximetry 95 95 12/21/17 12:45 12/21/17 13:00 12/21/17 13:15 Temperature Pulse Rate 101 H 108 H 103 H Respiratory Rate 26 H 18 26 H Blood Pressure 99/59 L 110/69 105/62 Pulse Oximetry 95 92 L 93 L 12/21/17 13:30 12/21/17 13:45 12/21/17 14:00 Temperature Pulse Rate 102 H 104 H 105 H Respiratory Rate 26 H 28 H 31 H Blood Pressure 106/61 106/69 110/63 Pulse Oximetry 93 L 100 96 12/21/17 14:15 12/21/17 14:30 12/21/17 14:45 Temperature Pulse Rate 108 H 105 H 107 H Respiratory Rate 40 H 31 H 28 H Blood Pressure 107/64 106/61 104/63 Pulse Oximetry 95 85 L 94 L 12/21/17 15:00 12/21/17 15:15 12/21/17 15:30 Temperature Pulse Rate 108 H 108 H 103 H Respiratory Rate 30 H 28 H 24 Blood Pressure 102/60 104/60 104/63 Pulse Oximetry 95 94 L 96 12/21/17 15:45 12/21/17 16:00 12/21/17 16:15 Temperature Pulse Rate 101 H 101 H 103 H Respiratory Rate 26 H 25 H 26 H Blood Pressure 103/63 104/62 106/66 Pulse Oximetry 96 96 95 12/21/17 16:19 12/21/17 16:20 12/21/17 16:30 Temperature Pulse Rate 102 H 98 H Respiratory Rate 28 H 28 H 26 H Blood Pressure 106/65 Pulse Oximetry 96 98 12/21/17 16:45 12/21/17 17:00 12/21/17 17:15 Temperature Pulse Rate 99 H 96 H 93 H Respiratory Rate 24 26 H 26 H Blood Pressure 99/61 L 98/60 L 100/62 Pulse Oximetry 98 99 99 12/21/17 17:30 12/21/17 17:45 12/21/17 18:00 Temperature 99.0 F Pulse Rate 100 H 105 H 97 H Respiratory Rate 26 H 27 H 27 H Blood Pressure 104/62 101/64 106/66 Pulse Oximetry 97 94 L 97 12/21/17 18:15 Temperature Pulse Rate 95 H Respiratory Rate 26 H Blood Pressure 99/62 L Pulse Oximetry 97 Intake & Output 12/21/17 12/21/17 12/22/17 06:59 18:59 06:59 Intake Total 1369.625 / 4904.574 6637.750 / 3423.750 Output Total 1535 / 1535 Balance 1369.625 / 0285.627 9111.750 / 1888.750 Intake: IV 1369.625 / 9873.492 8871.750 / 3351.750 Versed Inj 50 mg In 50 ml @ 2 50 / 50 50 / 50 MG/HR 2 mls/hr IV.CONT TITRATE PRN Rx#:[id number] KCl Inj 20 MEQ Sodium Chloride 1019.625 / 8824.689 4697.250 / 2039.250 23.4% Inj 38.5 MEQ In Sterile Water for Inj 1,000 ML @ 100 mls/hr IV.CONT .[id number] [facility] Rx# :[id number] NS Inj 1,000 ML @ 125 mls/hr IV 0 / 0 .CONT .Q8H [facility] Rx#:[id number] Pitressin Inj 40 UNIT In D5W 100 / 100 Inj 98 ML @ 0.04 UNITS/MIN 6 mls/hr IV.CONT CONT [facility] Rx#: [id number] Azithromycin Inj 500 MG In NS 250 / 250 Inj 250 ML @ 250 mls/hr IV.SIG Q24H [facility] Rx#:[id number] Maxipime Inj 1,000 MG In NS Inj 100 / 100 100 / 100 100 ML @ 200 mls/hr IV.SIG Q8H [facility] Rx#:[id number] Mycamine Inj 150 MG In NS Inj 100 / 100 100 ML @ 100 mls/hr IV.SIG Q24H [facility] Rx#:[id number] Vancomycin Inj 1,250 MG In NS 262.5 / 262.5 Inj 250 ML @ 250 mls/hr IV.SIG Q24H [facility] Rx#:[id number] fentaNYL 10 mcg/mL Premix Drip 250 / 250 2,500 mcg In 250 ml @ 50 MCG/HR 5 mls/hr IV.SIG TITRATE PRN Rx #:[id number] Flagyl 500 MG Inj 100 ML @ 100 100 / 100 200 / 200 mls/hr IV.SIG Q6HR [facility] Rx#: [id number] Flolan (30,000 ng/mL) Neb 75 ML 100 / 100 In NS Inj 25 ML @ 5 mls/hr NEB Q8H [facility] Rx#:[id number] Oral 0 / 0 Tube Feeding 72 / 72 Output: Urine Amount (Catheter) 1225 / 1225 Indwelling Urethral Catheter 1225 / 1225 Chest Tube Drainage 310 / 310 #1 Right Upper 0 / 0 #2 Right 100 / 100 #3 Right Upper 210 / 210 Other: Date of Last Bowel Movement 12/20/17 12/20/17 # Bowel Movements 0 12/19/17 11:30 Bronchial Washings - Bronchial Acid Fast Bacilli Smear - Final No acid fast bacilli seen 12/19/17 11:30 Bronchial Washings - Bronchial Mycobacterial Culture - Pending 12/17/17 08:24 Blood - Peripheral Aerobic Blood Culture - Preliminary No growth in 4 days 12/17/17 08:24 Blood - Peripheral Anaerobic Blood Culture - Preliminary No growth in 4 days 12/17/17 08:10 Blood - Peripheral Aerobic Blood Culture - Preliminary No growth in 4 days 12/17/17 08:10 Blood - Peripheral Anaerobic Blood Culture - Final Staphylococcus coag negative Viridans streptococcus grp 12/19/17 00:56 Fluid - Pleural fluid Gram Stain - Final 12/19/17 00:56 Fluid - Pleural fluid Body Fluid Culture - Preliminary Karla glabrata gram positive rods 12/19/17 00:30 Fluid - Pleural fluid Gram Stain - Final 12/19/17 00:30 Fluid - Pleural fluid Body Fluid Culture - Preliminary Klebsiella pneumoniae Karla albicans Karla glabrata gram positive rods 12/17/17 15:55 Fluid - Pleural fluid Gram Stain - Final 12/17/17 15:55 Fluid - Pleural fluid Body Fluid Culture - Preliminary gram positive rods Karla glabrata Klebsiella pneumoniae 12/19/17 11:30 Bronchial - Bronchial Gram Stain - Final 12/19/17 11:30 Bronchial - Bronchial Bronchial Culture - Preliminary gram negative rods 12/17/17 15:55 Other - Pending 12/17/17 15:55 Other - Pending 12/19/17 11:30 Bronchial Washings - Bronchial Fungal Smear - Final Rare budding yeast 12/19/17 11:30 Bronchial Washings - Bronchial Fungal Culture - Pending 12/17/17 15:54 Sputum - Endotracheal Gram Stain - Final 12/17/17 15:54 Sputum - Endotracheal Sputum Culture - Final Klebsiella pneumoniae Lab - Hematology Results 12/20/17 12/21/17 04:40 04:40 WBC 12.3 H 14.9 H RBC 2.28 L 2.35 L Hgb 7.4 L 7.6 L Hct 21.9 L 22.4 L MCV 95.9 95.7 MCH 32.3 32.5 MCHC 33.7 34.0 RDW 15.0 15.6 Plt Count 208 191 MPV 9.3 9.3 Prelim Diff (Auto) Slide review pending Neut % (Auto) 92.9 H 92.3 H Lymph % (Auto) 3.6 L 3.1 L [place] % (Auto) 3.3 4.4 Eos % (Auto) 0.0 0.0 Baso % (Auto) 0.2 0.2 Neut # (Auto) 11.5 H 13.7 H Lymph # (Auto) 0.4 L 0.5 L [place] # (Auto) 0.4 0.6 Eos # (Auto) 0.0 0.0 Baso # (Auto) 0.0 0.0 WBC Differential . Manual diff final Seg Neuts % (Manual) 80 H Band Neuts % (Manual) 16 H Lymphocytes % (Manual) 1 L Monocytes % (Manual) 3 Abs Neuts (Manual) 14.3 H Nucleated RBCs/100 WBC 1 H Differential Comment Auto diff final . Toxic Granulation 1+ H Dohle Bodies Present H Platelet Estimate Normal Platelet Morphology Normal Lab - Chemistry Results 12/19/17 12/20/17 12/20/17 21:08 00:45 00:45 Sodium 147 H Potassium 2.6 L* D Chloride 116 H Carbon Dioxide 20.6 L Anion Gap 10 BUN 23 H Creatinine 0.48 L Estimated GFR Greater than 89 POC Glucose 75 Random Glucose 114 H Calcium 6.5 L* Prot Corrected Calcium 8.3 L Phosphorus 1.1 L Magnesium 1.6 Ammonia 35 H Total Protein 3.8 L 12/20/17 12/20/17 12/20/17 00:54 04:40 12:38 Sodium 148 H Potassium 3.1 L Chloride 117 H Carbon Dioxide 20.4 L Anion Gap 11 BUN 24 H Creatinine 0.67 Estimated GFR 89 POC Glucose 86 140 H Random Glucose 123 H Calcium 6.7 L* Prot Corrected Calcium 8.4 L Phosphorus 1.2 L Magnesium 1.7 Ammonia Total Protein 3.9 L 12/20/17 12/20/17 12/20/17 17:32 17:53 23:18 Sodium 148 H Potassium 3.4 L Chloride 118 H Carbon Dioxide 20.1 L Anion Gap 10 BUN 22 H Creatinine 0.54 Estimated GFR Greater than 89 POC Glucose 126 H 142 H Random Glucose 124 H Calcium 7.0 L* Prot Corrected Calcium 8.7 Phosphorus 1.8 L Magnesium 2.4 D Ammonia Total Protein 4.1 L 12/21/17 12/21/17 12/21/17 04:40 09:58 12:13 Sodium 146 H Potassium 3.5 Chloride 116 H Carbon Dioxide 19.7 L Anion Gap 10 BUN 23 H Creatinine 0.52 Estimated GFR Greater than 89 POC Glucose 112 H 129 H Random Glucose 126 H Calcium 6.7 L* Prot Corrected Calcium 8.2 L Phosphorus 1.4 L Magnesium 2.1 Ammonia Total Protein 4.3 L 12/21/17 18:11 Sodium Potassium Chloride Carbon Dioxide Anion Gap BUN Creatinine Estimated GFR POC Glucose 102 Random Glucose Calcium Prot Corrected Calcium Phosphorus Magnesium Ammonia Total Protein Imaging: ITS Impressions Head CT 12/17/17 08:02 CONCLUSION: 1. 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 2. Otherwise negative. . Abdomen/Pelvis CT 12/17/17 10:45 CONCLUSION: 1. Moderate diffuse colonic wall thickening exaggerated by lack of colonic distention. This may be due to low-protein state/edema. However, differential considerations include infectious and inflammatory colitis. 2. Moderate-sized right hydropneumothorax with airspace disease in the lung bases as described on chest CT. 3. Additional ancillary findings, as above. Chest CT 12/21/17 04:03 CONCLUSION: 1. Moderate size right pneumothorax without tension. Also pneumopericardium and pneumomediastinum. Massive chest wall emphysema. 2. Bilateral airspace disease. 3.7 cm bilobed cavitary lesion of the right lower lobe. 3. Small left pleural effusion. No left pneumothorax. Chest X-Ray 12/21/17 07:31 CONCLUSION: Progression of the extensive subcutaneous emphysema with [address] on the right. Physical Exam: GENERAL: sedated int'd on mech vent'n SKIN: Warm and dry. NO rash HEAD: Atraumatic. Normocephalic. EYES: Pupils equal and round. No scleral icterus. No injection or drainage. ENT: No nasal bleeding or discharge. Mucous membranes pink and moist. NECK: Trachea midline. No JVD. CARDIOVASCULAR: Regular rate and rhythm. RESPIRATORY: No accessory muscle use. + rhocnhi to auscultation. + Amphoric BS on R Breath sounds decreased bilaterally. CT x 3 R side with serosang d/c + airleak + SQ emphysema GASTROINTESTINAL: Abdomen soft, non-tender, distended. Hepatic and splenic margins not palpable. MUSCULOSKELETAL: Extremities without clubbing, cyanosis, 2+ edema. No obvious deformities. NEUROLOGICAL: sedated, unresponsive PSYCHIATRIC: unable to assess Assessment and Plan - Plan GPC bacteremia, 1/4 with coag neg staph and vir strep: cw pseudobacteremia BP fistula pleural fluid with C glabrata, Kleb, Lactobac - unsuitable for fistula repair PNA, GNB R complicated fluid collection pneumohydrothorax 2/2 BP fistula sp CTx 3 placements Acute VDRF recent pseudomembranous colitis - stool now formed, bowell thickening on CT + DNA sepsis hemodynamically stable, off pressors dc azithro, cont IV cefepime, vanco cont flagyl cont oral vanco for c.diff fu P clx untill final dw microlab dw Dr Isael hermosillo RN
[2017-12-21] MEDS: QUEtiapine 25 MG Tablet PO SCH (21:35)
[2017-12-22] MEDS: Insulin NovoLOG Aspart Correctional Sugar Inj SQ SCH ×4 (00:25→17:29)
[2017-12-22] MEDS: Oral Hygiene Kit OROPHARYNG SCH ×5 (00:25→23:20)
[2017-12-22] MEDS ORDERED: Cathflo Activase Inj 2 MG Vial I-CATHETER ONE (01:15)
--- NOTE | 2017-12-22 04:27 | XR ---
EXAM DATE: 12/22/2017 4:23 AM EDT AGE/SEX: 62 years / Female INDICATIONS: Short of breath. CLINICAL DATA: This is the patient's subsequent encounter. Patient reports that signs and symptoms h ave been present for 1 week and indicates a pain score of 0/10. MEDICAL/SURGICAL HISTORY: Hypertension. Non-responsive. COMPARISON: [facility] – [place], CHEST 1V SINGLE AP, 12/21/2017. . FINDINGS: Diffuse bilateral airspace opacities persist. I don't see a pneumothorax. Chest wall emphysema again noted but modestly decreased. There are 3 right chest tubes again seen. Endotracheal tube tip is approximately 4 cm above the neli. Nasogastric tube is coiled in the stoma ch. Heart size stable, within normal limits. CONCLUSION: 1. Decreased chest wall emphysema. No pneumothorax seen. 2. Diffuse bilateral airspace disease without significant change. Electronically signed by: Pato Noel MD 12/22/2017 4:26 AM EDT
[2017-12-22] MEDS: Potassium Chloride Inj 20 MEQ, Sodium Chloride 23.4% Inj 38.5 MEQ in Water for Inj, Ste... IV.CONT SCH (04:43)
[2017-12-22] MEDS: Epoprostenol (30,000/mL) Neb 75 ML in Sodium Chlor 0.9% Inj 25 ML NEB SCH ×3 (04:43→22:07)
[2017-12-22] MEDS: Chlorhexidine Gluconate 2% 1 Pack (2 Cloths) TOPICAL SCH (04:43)
[2017-12-22] MEDS: Vancomycin Inj 1,250 MG in Sodium Chlor 0.9% Inj 250 ML IV.SIG SCH (05:27)
[2017-12-22] MEDS: Hydrocortisone Sod Succinate 100 MG Vial IV.PUSH SCH ×3 (05:30→22:09)
[2017-12-22] MEDS: Heparin - SQ 10,000 UNITS/ML Vial SQ SCH ×3 (05:30→22:08)
[2017-12-22] MEDS: Midazolam 50 MG/50 ML Inj 50 MG/50 ML BAG IV.CONT PRN ×3 (05:33→22:22)
[2017-12-22 07:53] LABS: Alanine Aminotransferase 8 U/L (10-53); Albumin 1.2 g/dL (3.4-5.0); Anion Gap 8 meq/L (5-15); Aspartate Aminotransferase 16 U/L (15-37); Blood Urea Nitrogen 19 mg/dL (7-18); Calcium 6.6 mg/dL (8.5-10.1); Carbon Dioxide 21.8 meq/L (21.0-32.0); Chloride 120 meq/L (98-107); Glomerular Filtration Rate Greater Than 89 mL/min (>89); Glucose,Random 100 mg/dL (74-106); Magnesium 1.9 mg/dL (1.5-2.5); Potassium 4.2 meq/L (3.5-5.1); Sodium 150 meq/L (136-145)
[2017-12-22 07:55] LABS: Alkaline Phosphatase 67 U/L (45-117); Creatine Kinase 93 U/L (26-192); Phosphorus 1.8 mg/dL (2.5-4.9); Total Protein 3.8 g/dL (6.4-8.2); Troponin I 0.02 ng/mL (0.02-0.05)
[2017-12-22] MEDS: Polyethylene Glycol 3350 17 GM Packet PO SCH ×2 (09:00→22:08)
[2017-12-22] MEDS: Famotidine 20 MG Tablet PO SCH ×2 (09:00→22:08)
[2017-12-22] MEDS: Chlorhexidine 0.12% Oral Kit 15 ML UDC OROPHARYNG SCH ×2 (09:00→22:07)
[2017-12-22] MEDS: Senna/Docusate Sodium 8.6/50 MG Tablet PO SCH ×2 (09:00→22:08)
[2017-12-22] MEDS: Carboxymethylcellulose 0.5% Opth Drops 15 ML Bottle EACH EYE SCH ×2 (09:01→22:08)
[2017-12-22 10:25] LABS: ABG Base Excess -5.5 mmol/L (-2-2); ABG PCO2 36 mmHg (38-42); ABG PO2 73 mmHG (61-120)
--- NOTE | 2017-12-22 10:54 | P.PNCC ---
Subjective Subjective Remarks/Hospital Course: This is a 62yF who was originally admitted on 11/23 with a diagnosis of colitis, found to have enterovirus. discharged on 12/11 at that time on PO vancomycin, but came back on 12/13 with altered mental status and hypoglycemia, again discharged on 12/15. She was mildly fatigued on 12/16 according to her and asked to wait another day before traveling back to her home in [place]. This morning, she was unarousable and her called 911. She was intubated upon arrival to the emergency department for agonal respirations. CXR demonstrates bilateral multifocal pneumonia. She is febrile, hypotensive. CVL placed in the ER and vasopressors initiated after 2L bolus crystalloid. CT chest/abd/pelvis demonstrates right pneumothorax, densely consolidated right lower lobe, bilateral pulmonary infiltrates, evidence of ongoing colitis. Patient continue to be unstable. Immediately after identifying ptx on CT scan, I emergently placed right chest tube with some improvements in hemodynamics, but ongoing distributive shock persists. I placed arterial line. No additional information available from the patient, ROS unobtainable. In discussion with the , she has not had any new complaints in the 48h she was home, and other than mild fatigue last night, no new complaints. She was able to walk to the bathroom without assistance yesterday. 12/18: shock remains. now on levophed, vasopressin, phenylephrine. second chest tube placed overnight for worsening SQ air. acidosis remains and is severe. 12/19: Afebrile. Remains on vasopressin drip only. On stress dose hydrocortisone. Evaluated by CT surgery. Not a candidate for intervention at the present time. Chest tube continues to leak. Epoprostenol added today 12/20: Afebrile. FiO2 has decreased and is currently 70%. Currently replacing potassium, phosphorus and magnesium. Recheck later this afternoon. Less chest tube leak today down to 1 chamber. SUBJECTIVE: 12/21: Overnight, worsening subcutaneous emphysema. A third chest tube placed by overnight mop handle assembler after discussion with cardiothoracic surgery. Currently hemodynamically stable. Replacing phosphorus today. To be evaluated by CT surgery today. 12/22: Remains sedated, orally intubated on mechanical ventilation. Persistent air leak and chest tube noted. Objective Vital Signs / I&O: Vital Signs 12/21/17 10:45 12/21/17 11:00 12/21/17 11:15 Temperature Pulse Rate 108 H 108 H 109 H Respiratory Rate 38 H 25 H 25 H Blood Pressure 123/75 119/65 109/58 L Pulse Oximetry 94 L 94 L 91 L 12/21/17 11:50 12/21/17 12:00 12/21/17 12:15 Temperature 99.1 F Pulse Rate 111 H 114 H 111 H Respiratory Rate 30 H 28 H Blood Pressure 121/72 Pulse Oximetry 93 L 95 12/21/17 12:30 12/21/17 12:45 12/21/17 13:00 Temperature Pulse Rate 104 H 101 H 108 H Respiratory Rate 26 H 26 H 18 Blood Pressure 104/62 99/59 L 110/69 Pulse Oximetry 95 95 92 L 12/21/17 13:15 12/21/17 13:30 12/21/17 13:45 Temperature Pulse Rate 103 H 102 H 104 H Respiratory Rate 26 H 26 H 28 H Blood Pressure 105/62 106/61 106/69 Pulse Oximetry 93 L 93 L 100 12/21/17 14:00 12/21/17 14:15 12/21/17 14:30 Temperature Pulse Rate 105 H 108 H 105 H Respiratory Rate 31 H 40 H 31 H Blood Pressure 110/63 107/64 106/61 Pulse Oximetry 96 95 85 L 12/21/17 14:45 12/21/17 15:00 12/21/17 15:15 Temperature Pulse Rate 107 H 108 H 108 H Respiratory Rate 28 H 30 H 28 H Blood Pressure 104/63 102/60 104/60 Pulse Oximetry 94 L 95 94 L 12/21/17 15:30 12/21/17 15:45 12/21/17 16:00 Temperature Pulse Rate 103 H 101 H 101 H Respiratory Rate 24 26 H 25 H Blood Pressure 104/63 103/63 104/62 Pulse Oximetry 96 96 96 12/21/17 16:15 12/21/17 16:19 12/21/17 16:20 Temperature Pulse Rate 103 H 102 H Respiratory Rate 26 H 28 H 28 H Blood Pressure 106/66 Pulse Oximetry 95 96 12/21/17 16:30 12/21/17 16:45 12/21/17 17:00 Temperature Pulse Rate 98 H 99 H 96 H Respiratory Rate 26 H 24 26 H Blood Pressure 106/65 99/61 L 98/60 L Pulse Oximetry 98 98 99 12/21/17 17:15 12/21/17 17:30 12/21/17 17:45 Temperature Pulse Rate 93 H 100 H 105 H Respiratory Rate 26 H 26 H 27 H Blood Pressure 100/62 104/62 101/64 Pulse Oximetry 99 97 94 L 12/21/17 18:00 12/21/17 18:15 12/21/17 18:30 Temperature 99.0 F Pulse Rate 97 H 95 H 94 H Respiratory Rate 27 H 26 H 26 H Blood Pressure 106/66 99/62 L 102/64 Pulse Oximetry 97 97 98 12/21/17 18:45 12/21/17 19:00 12/21/17 19:15 Temperature Pulse Rate 90 100 H 91 H Respiratory Rate 26 H 26 H 26 H Blood Pressure 100/61 98/63 L 98/59 L Pulse Oximetry 99 97 98 12/21/17 19:30 12/21/17 19:45 12/21/17 20:00 Temperature 98.5 F Pulse Rate 87 90 82 Respiratory Rate 26 H 26 H 26 H Blood Pressure 98/59 L 100/62 100/64 Pulse Oximetry 100 97 99 12/21/17 20:15 12/21/17 20:30 12/21/17 20:45 Temperature Pulse Rate 84 84 85 Respiratory Rate 26 H 26 H 26 H Blood Pressure 101/64 97/60 L 98/61 L Pulse Oximetry 99 100 99 12/21/17 21:00 12/21/17 21:15 12/21/17 21:30 Temperature Pulse Rate 89 83 82 Respiratory Rate 26 H 26 H 26 H Blood Pressure 95/61 L 100/64 98/64 L Pulse Oximetry 99 100 99 12/21/17 21:45 12/21/17 22:00 12/21/17 22:15 Temperature Pulse Rate 91 H 97 H 103 H Respiratory Rate 26 H 26 H 25 H Blood Pressure 104/68 106/70 102/62 Pulse Oximetry 99 98 97 12/21/17 22:30 12/21/17 22:45 12/21/17 23:00 Temperature Pulse Rate 110 H 99 H 97 H Respiratory Rate 29 H 23 26 H Blood Pressure 99/58 L 102/61 104/62 Pulse Oximetry 95 100 100 12/21/17 23:15 12/21/17 23:30 12/21/17 23:45 Temperature Pulse Rate 95 H 90 91 H Respiratory Rate 26 H 26 H 26 H Blood Pressure 100/59 L 100/59 L 103/62 Pulse Oximetry 100 100 100 12/22/17 00:00 12/22/17 00:15 12/22/17 00:29 Temperature 98.1 F Pulse Rate 86 100 H 99 H Respiratory Rate 26 H 26 H 26 H Blood Pressure 99/58 L 107/65 Pulse Oximetry 100 98 99 12/22/17 00:30 12/22/17 00:45 12/22/17 01:00 Temperature Pulse Rate 99 H 100 H 98 H Respiratory Rate 28 H 29 H 27 H Blood Pressure 109/68 105/64 103/65 Pulse Oximetry 99 97 98 12/22/17 01:15 12/22/17 01:30 12/22/17 01:45 Temperature Pulse Rate 97 H 95 H 101 H Respiratory Rate 27 H 26 H 29 H Blood Pressure 104/65 103/65 107/67 Pulse Oximetry 99 98 96 12/22/17 02:00 12/22/17 02:15 12/22/17 02:30 Temperature Pulse Rate 107 H 109 H 102 H Respiratory Rate 26 H 34 H 26 H Blood Pressure 109/69 105/69 107/68 Pulse Oximetry 94 L 99 100 12/22/17 02:45 12/22/17 03:00 12/22/17 03:15 Temperature Pulse Rate 100 H 107 H 91 H Respiratory Rate 26 H 27 H 26 H Blood Pressure 106/66 108/65 100/60 Pulse Oximetry 100 94 L 100 12/22/17 03:30 12/22/17 03:45 12/22/17 04:00 Temperature 98.6 F Pulse Rate 81 84 84 Respiratory Rate 26 H 26 H 26 H Blood Pressure 100/60 98/60 L 97/59 L Pulse Oximetry 100 98 97 12/22/17 04:15 12/22/17 04:30 12/22/17 04:45 Temperature Pulse Rate 87 84 87 Respiratory Rate 26 H 26 H 26 H Blood Pressure 94/58 L 95/51 L 94/54 L Pulse Oximetry 97 97 96 12/22/17 05:00 12/22/17 05:15 12/22/17 05:30 Temperature Pulse Rate 86 83 89 Respiratory Rate 26 H 26 H 26 H Blood Pressure 94/53 L 95/55 L 92/56 L Pulse Oximetry 96 95 95 12/22/17 05:45 12/22/17 06:00 12/22/17 06:15 Temperature Pulse Rate 90 91 H 83 Respiratory Rate 26 H 26 H 26 H Blood Pressure 89/54 L 92/54 L 97/56 L Pulse Oximetry 96 97 100 12/22/17 06:31 12/22/17 06:45 12/22/17 07:00 Temperature Pulse Rate 120 H 120 H 109 H Respiratory Rate 25 H 27 H 26 H Blood Pressure 131/58 L 117/58 L 106/58 L Pulse Oximetry 95 87 L 92 L 12/22/17 07:15 12/22/17 07:30 12/22/17 07:45 Temperature Pulse Rate 99 H 115 H 97 H Respiratory Rate 26 H 26 H 26 H Blood Pressure 106/61 111/64 100/57 L Pulse Oximetry 96 88 L 97 12/22/17 08:00 12/22/17 08:15 12/22/17 08:30 Temperature 98.7 F Pulse Rate 90 91 H 90 Respiratory Rate 26 H 26 H 26 H Blood Pressure 104/60 95/53 L 94/54 L Pulse Oximetry 97 97 97 12/22/17 08:45 12/22/17 09:00 12/22/17 09:15 Temperature Pulse Rate 90 111 H 113 H Respiratory Rate 26 H 24 25 H Blood Pressure 98/55 L 132/77 116/68 Pulse Oximetry 96 93 L 92 L 12/22/17 09:30 12/22/17 09:45 12/22/17 10:00 Temperature Pulse Rate 104 H 101 H 100 H Respiratory Rate 25 H 24 24 Blood Pressure 102/56 L 96/55 L 94/54 L Pulse Oximetry 93 L 93 L 94 L Intake & Output 12/21/17 12/22/17 12/22/17 18:59 06:59 18:59 Intake Total 3423.750 / 3423.750 2490.5 / 2490.5 Output Total 1535 / 1535 2220 / 2220 Balance 1888.750 / 1888.750 270.5 / 270.5 Weight 97.6 kg Intake: IV 3351.750 / 3351.750 2297.5 / 2297.5 Versed Inj 50 mg In 50 ml @ 2 50 / 50 100 / 100 MG/HR 2 mls/hr IV.CONT TITRATE PRN Rx#:[id number] KCl Inj 20 MEQ Sodium Chloride 2039.250 / 2039.250 1000 / 1000 23.4% Inj 38.5 MEQ In Sterile Water for Inj 1,000 ML @ 100 mls/hr IV.CONT .[id number] [facility] [place] Rx# :[id number] Pitressin Inj 40 UNIT In D5W 100 / 100 Inj 98 ML @ 0.04 UNITS/MIN 6 mls/hr IV.CONT CONT [facility] Rx#: [id number] Azithromycin Inj 500 MG In NS 250 / 250 Inj 250 ML @ 250 mls/hr IV.SIG Q24H [facility] Rx#:[id number] Maxipime Inj 2,000 MG In NS Inj 100 / 100 200 / 200 100 ML @ 200 mls/hr IV.SIG Q8H [facility] [place] Rx#:[id number] Mycamine Inj 150 MG In NS Inj 100 / 100 100 ML @ 100 mls/hr IV.SIG Q24H [facility] [place] Rx#:[id number] Potassium Phosphate Inj 30 MMOL 260 / 260 In NS Inj 250 ML @ 43.333 mls/ hr IV.SIG ONCE ONE Rx#:[id number] Vancomycin Inj 1,250 MG In NS 262.5 / 262.5 262.5 / 262.5 Inj 250 ML @ 250 mls/hr IV.SIG Q24H [facility] [place] Rx#:[id number] fentaNYL 10 mcg/mL Premix Drip 250 / 250 2,500 mcg In 250 ml @ 50 MCG/HR 5 mls/hr IV.SIG TITRATE PRN Rx #:[id number] Flagyl 500 MG Inj 100 ML @ 100 200 / 200 300 / 300 mls/hr IV.SIG Q6HR [facility] [place] Rx#: [id number] Flolan (30,000 ng/mL) Neb 75 ML 100 / 100 75 / 75 In NS Inj 25 ML @ 5 mls/hr NEB Q8H [facility] [place] Rx#:[id number] Oral 0 / 0 Tube Feeding 72 / 72 73 / 73 Tube Irrigant 120 / 120 Output: Urine Amount (Catheter) 1224 Indwelling Urethral Catheter 1224 Chest Tube Drainage 310 / 310 320 / 320 #1 Right Upper 0 / 0 0 / 0 #2 Right 100 / 100 220 / 220 #3 Right Upper 210 / 210 100 / 100 Other: Date of Last Bowel Movement 10/12/22/17 12/22/17 # Bowel Movements 0 2 Result Diagrams: 12/21/17 04:40 12/22/17 06:21 Imaging: Impressions Chest X-Ray 12/21/17 02:48 CONCLUSION: 1. Large amount of chest wall and neck soft tissue emphysema present, much worse than yesterday. No definite pneumothorax. Right chest tubes remain in place. 2. Worsening bilateral airspace disease, left more so than right. Chest CT 12/21/17 04:03 CONCLUSION: 1. Moderate size right pneumothorax without tension. Also pneumopericardium and pneumomediastinum. Massive chest wall emphysema. 2. Bilateral airspace disease. 3.7 cm bilobed cavitary lesion of the right lower lobe. 3. Small left pleural effusion. No left pneumothorax. Chest X-Ray 12/21/17 07:31 CONCLUSION: Progression of the extensive subcutaneous emphysema with [address] on the right. Chest X-Ray 12/22/17 06:00 CONCLUSION: 1. Decreased chest wall emphysema. No pneumothorax seen. 2. Diffuse bilateral airspace disease without significant change. Objective Remarks: GENERAL: 62-year-old middle-aged female, lying in bed, intubated, sedated, critically ill. HEENT: Normocephalic. Atraumatic. Pupils equal, round, reactive, conjugate. Positive left scleral edema. There is subcu air. Mucous membranes are moist NECK: Trachea is midline. Significant subcu edema CHEST: Equal chest rise. PRVC. 50% FiO2, PEEP decreased from +8 to +5. 3 right-sided chest tubes, one with 3 + air leak. Significant bilateral subcutaneous edema CARDIOVASCULAR: Tachycardic rate, regular rhythm. S1, S2 no S4. ABDOMEN: Soft, nontender, nondistended. No guarding. MUSCULOSKELETAL: Pulses 2+. Trace bilateral lower extremity peripheral edema. NEUROLOGICAL: RASS -3. Withdraws to pain x4. Does not follow commands. Assessment and Plan - Assessment and Plan Plan: Neuro/Psych: Acute metabolic encephalopathy Possible seizure disorder Currently on midazolam/fentanyl drips for sedation/analgesia while intubated Frequent neurochecks goal RASS -2 She was started on anticonvulsants and her initial admission 11/23. Valproic acid 500 mg 3 times daily. Check level was 40 12/[address] 12/17- for acute disease EEG - Diffuse slowing consistent with a moderate diffuse encephalopathy. No epileptiform activity Acetaminophen 650 by tube every 6 hours as needed fever Continue quetiapine 25 mg daily/home medication Holding tizanidine 4 mg daily Respiratory: Acute hypoxic and hypercarbic respiratory failure Acute severe bilateral multifocal healthcare associated pneumonia Possible aspiration pneumonia Spontaneous right-sided tension pneumothorax Subcutaneous Emphysema Status post emergent chest tube 12/17 and second emergent chest tube 12/17: To - 40 cmH2O suction. Third chest tube placed 12/[address] surgery/Dr. Lynn following A.m. chest x-ray revealed significant subcu emphysema. Improved pneumothorax CT thorax overnight 12/12 revealed significant 3.7 cm moderate right pneumothorax without tension. Pneumopericardium and significant subcutaneous emphysema. Vent bundle PRVC ventilation 24/500/0.85/PEEP decreased from +8 to +5/50 Epoprostenol aerosolized added 12/19 Head of bed elevated Albuterol/ipratropium aerosols every 4 hours with albuterol aerosols every 2 hours as needed dyspnea Wean FiO2 for goal SPO2 greater than 90% Follow-up ABG Cardiovascular: Septic shock Elevated troponin Type II NSTEMI secondary to demand ischemia Hyperlipidemia Holding lisinopril 30 mg daily/home medication. Resume pravastatin 80 mg daily when clinically indicated Currently on vasopressin drip for goal map greater than 65 stress dose hydrocortisone 100 mg IV every 8 hours added Trend troponins. Will not anticoagulate. Unlikely to be ACS. Renal: Acute kidney injury Secondary to shock continue Jacek Frequent urine output monitoring Daily creatinine Additional IV fluids and maintenance fluids -- Strict I/Os FEN/GI: Acute protein calorie malnutritionmoderate Lactic acidosis Severe colitis Enterovirus colitis C. difficile colitis Hyperammonemia Acute hypophosphatemia Acute hypernatremia Currently on lactulose 30 cc twice daily \Recheck ammonia level in a.m. 12/22 Maintenance IV fluids have been discontinued Place orogastric tube to low intermittent wall suction Start tube feeding with vital 1.5 goal 55 cc now. Trickle feeds today and start him metoclopramide 1 mg 3 times daily ICU electrolyte protocol Daily BMP, magnesium, phosphorus Trend lactates Lactulose/polythene glycol twice daily Holding dicyclomine 20 mg 3 times daily On one quarter normal saline with 10 mg KCl 50 cc an hour - change to D5W with 2 amps of bicarb on 12/22 Heme/ID: C. difficile colitis Enterovirus colitis Septic shock Healthcare associated multifocal pneumonia Possible gram-positive cocci bacteremia Early empyema Vancomycin IV/p.o. with pharmacy dosing Cefepime, metronidazole, azithromycin and micafungin Bronchoscopy 12/19 with gram-negative rods Pleural fluid 12/19 with gram-negative rods Pleural fluid 12/17 -g Karla albicans/glabrata Klebsiella, gram-positive rods 12/17 -sputum -Klebsiella 12/17 blood-strep viridians/coag negative staph Infectious disease consultation Endocrine: Acute hypoglycemia- resolving. Sliding scale insulin Accu-Cheks every 6 hours to maintain euglycemia Prophylaxis: GI Prophylaxis Famotidine DVT Prophylaxis -- SCDs Subcu heparin Lines: 12/17 femoral triple-lumen catheter 12/17 right radial arterial line discontinued 12/21 12/17 right 28 Armenian chest tube to -40 cm suction 12/17 right 32 Armenian chest tube to -40 cm suction 12/17 -right #32 Armenian chest tube to -40 cm suction 12/17 Jacek Critical care time 40 minutes
[2017-12-22] MEDS: Sodium Bicarbonate 8.4% Inj 100 MEQ in Dextrose 5% in Water Inj 900 ML IV.CONT SCH ×4 (12:01→22:09)
[2017-12-22] MEDS: Potassium Phosphate 500 MG Soluble Tablet PO PRN ×2 (12:18→17:00)
[2017-12-22 12:34] LABS: Baso % (Auto) 0.2 % (0.0-2.0); Hematocrit 21.3 % (35.0-46.0); Hemoglobin 7.1 gm/dL (11.6-15.3); Lymph # (Auto) 0.4 th/mm3 (1.0-4.8); Lymph % (Auto) 3.3 % (9.0-44.0); Mean Corpuscular HGB Conc 33.4 % (32.0-36.0); Mean Corpuscular Hemoglobin 31.8 pg (27.0-34.0); Mean Corpuscular Volume 95.1 fL (80.0-100.0); Mean Platelet Volume 8.8 fL (7.0-11.0); Mono # (Auto) 0.5 th/mm3 (0.0-0.9); Mono % (Auto) 4.1 % (0.0-8.0); Neut # (Auto) 11.6 th/mm3 (1.8-7.7); Neut % (Auto) 92.4 % (16.0-70.0); Platelet Count 121 th/mm3 (150-450); Red Blood Count 2.24 mil/mm3 (4.00-5.30); Red Cell Distribution Width 15.7 % (11.6-17.2); White Blood Count 12.6 th/mm3 (4.0-11.0)
--- NOTE | 2017-12-22 12:34 | P.CONPAL ---
Consult Service: Palliative Care Requesting Physician: Poncho Vera Reason for Consult: a. To assist with evaluation and management of symptoms including: pain. b. To assist medical decision maker(s) with: better understanding of current medical conditions; weighing benefits/burdens of medical treatment options; making medical treatment decisions. Primary Care Provider: Lucas Chaparro MD. History of Present Illness History of Present Illness: Mrs. Woodruff is a 62-year-old female who presented to [place] ED on 12/17/2017 for evaluation of altered mental status. The patient's reported his had started having trouble breathing overnight, and he found her unresponsive in the morning. When EMS arrived, they found patient's blood glucose was low and D10 IV was given. Bag valve mask assisted ventilation given. Mental status improved minimally after Narcan was administered; patient' s had not been taking her pain medication for chronic back pain. Upon arrival to the ED, the patient was unresponsive with agonal breathing. She did not respond to painful stimuli. Patient was recently hospitalized earlier this month (11/23/17-12/08/17) with pseudomembranous colitis and norovirus gastroenteritis and was treated with vancomycin. She was diagnosed with acute encephalopathy; lumbar puncture was negative for infectious process. She was readmitted on 12/13/2017 with acute encephalopathy and discharged 2 days later on 12/15/2017 on a probiotic, vancomycin and a potassium supplement. Patient's stated she was doing well for the first 2 days until she developed some shortness of breath, and that is when they returned to the ED for evaluation. Diagnostic data: * Vital signs: Pulse 135, respirations 24, oxygen saturation 77 on 10L via Ambu bag * WBC: 21.2, hemoglobin 10.9, hematocrit 34.5, platelets 368, neutrophils 83.1% * Sodium: 145, potassium 5.4, chloride 117, carbon dioxide 15.6, glucose 72, calcium 7.3 * BUN: 22, creatinine 1.55, GFR 34 * Lactic acid: 6.0 * Total bilirubin: 0.1, AST 62, ALT 17, alkaline phosphatase 71 * Total creatine kinase: 902 * CK-MB: 9.5 * Troponin: 0.09 * Chest x-ray with small to moderate sized right-sided hydropneumothorax; right lower lobe consolidation with air bronchograms.differential considerations include aspiration and lobar pneumonia patchy diffuse groundglass opacities most prominently in the upper lobes bilaterally. Differential considerations include broncho-pneumonia, atypical infection and atypical pulmonary edema. 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 Otherwise negative. * CT abdomen/pelvis with moderate diffuse colonic wall thickening exaggerated by lack of colonic distention. This may be due to low protein state/edema. However, differential considerations include infectious and inflammatory colitis. Patient was intubated on arrival to the ED secondary to agonal respirations. Chest x-ray demonstrated bilateral multifocal pneumonia. Patient was febrile and hypotensive. A central line was placed in the ED and the patient was started on vasopressors. CT chest/abdomen/pelvis demonstrated right pneumothorax, densely consolidated right lower lobe, bilateral pulmonary infiltrates, evidence of ongoing colitis. Right chest tube was emergently be placed with some improvement from a hemodynamic perspective; ongoing distributive shock persists. Arterial line was placed. Patient was started on IV antibiotics: Azithromycin, Cefepime, Vancomycin and Flagyl. Infectious disease following. 12/17/2017: Blood cultures growing Staphylococcus coag negative, Viridans Streptococcus GRP Sputum cultures with Klebsiella pneumoniae Pleural fluid with Karla glabrata and Klebsiella pneumoniae 12/18/2017: Patient remains on levo fed, vasopressin and phenylephrine. A second chest tube was placed overnight for worsening subcutaneous air. Cardiothoracic surgery was consulted on 12/19/2017 for evaluation and management of the chest tubes with active air leak and pneumothorax. Per Dr Lynn's notes: Patient has a persistent right pneumothorax despite 2 chest tubes; there is an active air leak through 1 of the chest tubes. Patient becomes significantly hypoxic when manipulating her to assess her chest tubes and dressing. Patient is not a candidate for surgery at this time. Recommendations for fiberoptic bronchoscopy with lavage in an attempt to improve oxygenation. Patient had worsening subcutaneous emphysema overnight. A third chest tube was placed after discussions with cardiothoracic surgery. CT chest on 12/21/2017 showing moderate size right pneumothorax without tension. Also pneumopericardium and pneumomediastinum. Massive chest wall emphysema. Bilateral airspace disease 3.7 cm bilobed cavitary lesion of the right lower lobe. Small left pleural effusion. Cardiothoracic surgery will reevaluate patient on 12/22/2017. Palliative Care was consulted to assist with symptom management and to discuss with the family the benefits and burdens of her current illnesses and the options regarding future care. Patient seen in medical ICU, intubated on mechanical ventilation. Sedated, unresponsive to verbal or tactile stimuli but appears comfortable. Luis at bedside. In this first visit, introduced the role of palliative care and regards to symptom management as well as support surrounding goals of care and advanced care planning. Has been receptive to palliative care visit. Reviewed patient's past medical history and psychosocial history. reports that patient's has had a complicated month which started with above- mentioned hospitalizations. Prior to this hospitalization, patient independent for ADLs at home, ambulating with cane around the house and a walker for long distances. Reviewed clinical course and current medical management. with a good understanding of patient's critical condition and guarded prognosis. Patient's daughter Margarita to come this from [place]. Families goal is to allow a few more days for clinical improvement, reevaluate patient's condition. reports that no advanced directives have been completed; however, treatment/end-of-life conversations has previously taken place. reports that patient has verbalized in the past not wishing her life to be prolonged "with machines". hopeful of patient's recovery. Ongoing emotional support and active listening provided. Spiritual services offered and accepted. Function/Cognitive Trajectory: Patient has been hospitalized 3 times in November,. Patient/family reported the patient was ambulating with a walker at home after the first hospitalization at the beginning of November. Review of Systems unobtainable due to endotracheal tube PMFSH - History History Provided By: Family Member, Medical Record, Timber Trimmer / EMT - Medical History Medical History: Medical History (Last Reviewed 12/21/17 @ 10:49 by Ray Joseph MD) Chronic pain HTN (hypertension) Hyperlipidemia MDRO (multiple drug resistant organisms) resistance Onset Date: ~12/13/17 - Surgical History Surgical History: Surgical History (Last Reviewed 12/21/17 @ 10:49 by Ray Joseph MD) Previous back surgery - Family History Family History: Family History (Last Reviewed 12/21/17 @ 10:49 by Ray Joseph MD) Father Colon cancer - Tobacco History Second Hand Smoke Exposure: Yes Tobacco Use In Past 30 Days: Yes Smoking Status: Current every day smoker Tobacco Type: Cigarettes Packs Per Day: 0.5 - Alcohol History How Often Do You Have a Drink Containing Alcohol: Never - Substance Use History Substance History: Past History - Travel History Recent Travel in the [place] Within the Last 8 Weeks: No Recent Travel Out of the Country Within the Last 8 Weeks: No - Immunization History Tetanus Immunization: Unable to Assess Medications and Allergies Allergies Allergy/AdvReac Type Severity Reaction Status Date / Time No Known Allergies Allergy Verified 12/13/17 08:04 Home Medications Medication Instructions Recorded Confirmed Type lisinopril 30 mg PO DAILY 11/23/17 12/17/17 History pravastatin 40 mg PO DAILY 11/23/17 12/17/17 History tizanidine 4 mg PO DAILY 11/23/17 12/17/17 History Active Medications: Active Medications Acetaminophen (Tylenol Liq) 650 mg NG/OG Q6H PRN PRN Reason: FEVER Albuterol (Duoneb Neb (Ender)) 1 ampul NEB Q4HR NEB [facility] Last Admin: 12/22/17 08:29 Dose: 1 ampul Albuterol (Albuterol Neb (Prn)) 2.5 mg NEB Q2HR NEB PRN PRN Reason: DYSPNEA Artificial Tears (Refresh Tears 0.5% Opth Drops) 1 drop EACH EYE BID [facility] Last Admin: 12/22/17 09:01 Dose: 1 drop Bisacodyl (Dulcolax Supp) 10 mg RECTAL DAILY PRN PRN Reason: if no BM in last 24h Chlorhexidine Gluconate (Peridex 0.12% Oral Kit) 15 ml OROPHARYNG BID@0800, 2000 [facility] Last Admin: 12/22/17 09:00 Dose: 15 ml Chlorhexidine Gluconate (Chlorhexidine 2% Cloth) 3 pack TOPICAL DAILY@0400 [facility] Stop: 12/23/17 03:59 Last Admin: 12/22/17 04:43 Dose: 3 pack Chlorhexidine Gluconate (Chlorhexidine 2% Cloth) 3 pack TOPICAL DAILY@0400 PRN PRN Reason: Extra cloth needed Stop: 12/23/17 03:59 Dextrose (D50w Vial) 50 ml IV.PUSH UNSCH PRN PRN Reason: PER HYPOGLYCEMIA PROTOCOL Famotidine (Pepcid) 20 mg PO BID [facility] Last Admin: 12/22/17 09:00 Dose: 20 mg Glucagon (Glucagon Inj) 1 mg OTHER PRN PRN PRN Reason: for Hypoglycemia Protocol Heparin Sodium (Porcine) (Heparin Inj) 5,000 units SQ Q8HR [facility] Last Admin: 12/22/17 05:30 Dose: 5,000 units Hydrocortisone Sodium Succinate (Solucortef Inj) 100 mg IV.PUSH Q8HR ENDER Last Admin: 12/22/17 05:30 Dose: 100 mg Fentanyl (Fentanyl 10 Mcg/Ml Premix Drip) 2,500 mcg in 250 mls @ 5 mls/hr IV.SIG TITRATE PRN; Protocol PRN Reason: Per Protocol Last Titration: 12/22/17 10:45 Dose: 200 mcg/hr, 20 mls/hr Midazolam HCl (Versed Inj) 50 mg in 50 mls @ 2 mls/hr IV.CONT TITRATE PRN; Protocol PRN Reason: Per Protocol Last Titration: 12/22/17 06:00 Dose: 4 mg/hr, 4 mls/hr Metronidazole/Sodium Chloride (Flagyl 500 Mg Inj) 100 mls @ 100 mls/hr IV.SIG Q6HR ENDER Last Infusion: 12/22/17 06:30 Dose: Infused Magnesium Sulfate 4 gm/ Sodium (Chloride) 100 mls @ 50 mls/hr IV.SIG UNSCH PRN PRN Reason: For Magnesium 0.9 - 1.1 mg/dL Magnesium Sulfate 2 gm/ Sodium (Chloride) 100 mls @ 50 mls/hr IV.SIG UNSCH PRN PRN Reason: For Magnesium 1.2 - 1.6 mg/dL Last Infusion: 12/19/17 15:41 Dose: Infused Potassium Chloride (Kcl 40 Meq Premix Inj) 40 meq in 100 mls @ 25 mls/hr IV.SIG Q2H PRN PRN Reason: For Potassium 2.8 - 3.2 mEq/L Last Infusion: 12/20/17 09:48 Dose: Infused Potassium Chloride (Kcl 20 Meq Premix Inj) 20 meq in 100 mls @ 50 mls/hr IV.SIG Q2H PRN PRN Reason: For Potassium 3.3 - 3.5 mEq/L Potassium Chloride (Kcl 40 Meq Premix Inj) 40 meq in 100 mls @ 25 mls/hr IV.SIG UNSCH PRN PRN Reason: For Potassium 3.3 - 3.5 mEq/L Potassium Chloride (Kcl 20 Meq Premix Inj) 20 meq in 100 mls @ 50 mls/hr IV.SIG Q2H PRN PRN Reason: For Potassium 2.8 - 3.2 mEq/L Potassium Phosphate 30 mmol/ (Sodium Chloride) 260 mls @ 42 mls/hr IV.SIG UNSCH PRN PRN Reason: SEE LABEL COMMENTS Sodium Phosphate 30 mmol/ (Sodium Chloride) 260 mls @ 42 mls/hr IV.SIG UNSCH PRN PRN Reason: For Phosphorus < 2.5 mg/dL Last Infusion: 12/19/17 21:50 Dose: Infused Vancomycin HCl 1,250 mg/ (Sodium Chloride) 262.5 mls @ 250 mls/hr IV.SIG Q24H ENDER Last Infusion: 12/22/17 06:30 Dose: Infused Phenylephrine HCl 40 mg/ (Dextrose) 500 mls @ 37.5 mls/hr IV.CONT TITRATE PRN; Protocol PRN Reason: Per Protocol Last Titration: 12/18/17 23:12 Dose: Infused Norepinephrine Bitartrate 16 (mg/ Dextrose) 250 mls @ 1.87 mls/hr IV.CONT TITRATE PRN; Protocol PRN Reason: See Protocol Last Admin: 12/18/17 23:13 Dose: 2 mcg/min, 1.87 mls/hr Sodium Chloride (Ns Inj) 250 mls @ 0 mls/hr IV.SIG BOLUS ENDER Sodium Chloride (Ns Inj) 500 mls @ 0 mls/hr IV.SIG BOLUS ENDER Last Infusion: 12/17/17 22:00 Dose: Infused Vasopressin 40 unit/ Dextrose 100 mls @ 6 mls/hr IV.CONT CONT ENDER; Protocol Last Infusion: 12/21/17 13:00 Dose: 0 units/min, 0 mls/hr Epoprostenol Sodium 75 ml/ (Sodium Chloride) 100 mls @ 5 mls/hr NEB Q8H ENDER Last Infusion: 12/22/17 05:27 Dose: 3 mls/hr Micafungin Sodium 150 mg/ (Sodium Chloride) 100 mls @ 100 mls/hr IV.SIG Q24H ENDER Last Infusion: 12/21/17 19:00 Dose: Infused Cefepime HCl 2,000 mg/ Sodium (Chloride) 100 mls @ 200 mls/hr IV.SIG Q8H ENDER Last Infusion: 12/22/17 05:27 Dose: Infused Sodium Bicarbonate 100 meq/ (Dextrose) 1,000 mls @ 100 mls/hr IV.CONT .Q10H ENDER Insulin Aspart (Novolog Insulin Correctional Sugar Inj) 0 unit SQ Q6HR [facility]; Protocol Last Admin: 12/22/17 05:52 Dose: Not Given Lactulose (Lactulose Liq) 30 ml PO BID [facility] Last Admin: 12/22/17 09:00 Dose: Not Given Lactulose (Lactulose Liq) 30 ml PO QID PRN PRN Reason: SEVERE CONSITIPATION Magnesium Oxide (Mag-Ox) 800 mg PO UNSCH PRN PRN Reason: For Magnesium 1.2 - 1.6 mg/dL Metoclopramide HCl (Reglan Inj) 5 mg IV.PUSH Q8HR [facility]; Protocol Last Admin: 12/22/17 05:37 Dose: 5 mg Miscellaneous Information ([facility] Ordered Lab Info) 0 each OTHER ONCE ONE Stop: 12/24/17 05:46 Miscellaneous Medication () 1 each OROPHARYNG 0000,0400,1200,1600 [facility] Last Admin: 12/22/17 04:43 Dose: 1 each Ondansetron HCl (Zofran Inj) 4 mg IV.PUSH Q6H PRN PRN Reason: NAUSEA OR VOMITING Pharmacy Profile Note (Vancomycin Consult Pharmacy) 1 each OTHER UNSCH PRN PRN Reason: Pharmacy to dose Polyethylene Glycol (Miralax) 17 gm PO BID [facility] Last Admin: 12/22/17 09:00 Dose: Not Given Potassium Bicarb/Potassium Chloride (K-Lyte Cl Eff) 50 meq PO UNSCH PRN PRN Reason: For Potassium 3.3 - 3.5 mEq/L Last Admin: 12/19/17 01:30 Dose: 50 meq Potassium Phosphate (K-Phos Original) 2,000 mg PO Q4H PRN PRN Reason: Phosphorus Less Than 2.5 mg/dL Potassium Phosphate (K-Phos Original) 2,000 mg PO UNSCH PRN PRN Reason: SEE LABEL COMMENTS Pravastatin Sodium (Pravachol) 40 mg PO DAILY [facility] Last Admin: 12/22/17 09:00 Dose: 40 mg Quetiapine Fumarate (Seroquel) 25 mg PO HS [facility] Last Admin: 12/21/17 21:35 Dose: 25 mg Senna/Docusate Sodium (Kaylyn-Colace) 1 tab PO BID [facility] Last Admin: 12/22/17 09:00 Dose: Not Given Sodium Chloride (Ns Flush) 2 ml IV.FLUSH UNSCH PRN PRN Reason: FLUSH AFTER USING IV ACCESS Last Admin: 12/21/17 21:27 Dose: 2 ml Sodium Chloride (Sodium Chloride 3% Neb) 2 ml NEB Q4HR NEB [facility] Last Admin: 12/22/17 08:29 Dose: 2 ml Terbutaline Sulfate (Brethine Inj) 1 mg SQ UNSCH PRN PRN Reason: For Extravasation Valproate Sodium (Depakene Liq) 500 mg NG/OG TID [facility] Last Admin: 12/22/17 09:00 Dose: 500 mg Vancomycin HCl (Vancomycin Po) 500 mg PO QID [facility] Last Admin: 12/22/17 09:00 Dose: 500 mg Advance Directives Living Will: No Healthcare Surrogate: No Power of Magnetic Prospecting Operator: No Physical Exam Vital Signs: Vital Signs - 24 hr 12/21/17 12:15 12/21/17 12:30 12/21/17 12:45 Temperature 99.1 F Pulse Rate 111 H 104 H 101 H Respiratory Rate 28 H 26 H 26 H Blood Pressure 121/72 104/62 99/59 L Pulse Oximetry 95 95 95 12/21/17 13:00 12/21/17 13:15 12/21/17 13:30 Temperature Pulse Rate 108 H 103 H 102 H Respiratory Rate 18 26 H 26 H Blood Pressure 110/69 105/62 106/61 Pulse Oximetry 92 L 93 L 93 L 12/21/17 13:45 12/21/17 14:00 12/21/17 14:15 Temperature Pulse Rate 104 H 105 H 108 H Respiratory Rate 28 H 31 H 40 H Blood Pressure 106/69 110/63 107/64 Pulse Oximetry 100 96 95 12/21/17 14:30 12/21/17 14:45 12/21/17 15:00 Temperature Pulse Rate 105 H 107 H 108 H Respiratory Rate 31 H 28 H 30 H Blood Pressure 106/61 104/63 102/60 Pulse Oximetry 85 L 94 L 95 12/21/17 15:15 12/21/17 15:30 12/21/17 15:45 Temperature Pulse Rate 108 H 103 H 101 H Respiratory Rate 28 H 24 26 H Blood Pressure 104/60 104/63 103/63 Pulse Oximetry 94 L 96 96 12/21/17 16:00 12/21/17 16:15 12/21/17 16:19 Temperature Pulse Rate 101 H 103 H 102 H Respiratory Rate 25 H 26 H 28 H Blood Pressure 104/62 106/66 Pulse Oximetry 96 95 12/21/17 16:20 12/21/17 16:30 12/21/17 16:45 Temperature Pulse Rate 98 H 99 H Respiratory Rate 28 H 26 H 24 Blood Pressure 106/65 99/61 L Pulse Oximetry 96 98 98 12/21/17 17:00 12/21/17 17:15 12/21/17 17:30 Temperature Pulse Rate 96 H 93 H 100 H Respiratory Rate 26 H 26 H 26 H Blood Pressure 98/60 L 100/62 104/62 Pulse Oximetry 99 99 97 12/21/17 17:45 12/21/17 18:00 12/21/17 18:15 Temperature 99.0 F Pulse Rate 105 H 97 H 95 H Respiratory Rate 27 H 27 H 26 H Blood Pressure 101/64 106/66 99/62 L Pulse Oximetry 94 L 97 97 12/21/17 18:30 12/21/17 18:45 12/21/17 19:00 Temperature Pulse Rate 94 H 90 100 H Respiratory Rate 26 H 26 H 26 H Blood Pressure 102/64 100/61 98/63 L Pulse Oximetry 98 99 97 12/21/17 19:15 12/21/17 19:30 12/21/17 19:45 Temperature Pulse Rate 91 H 87 90 Respiratory Rate 26 H 26 H 26 H Blood Pressure 98/59 L 98/59 L 100/62 Pulse Oximetry 98 100 97 12/21/17 20:00 12/21/17 20:15 12/21/17 20:30 Temperature 98.5 F Pulse Rate 82 84 84 Respiratory Rate 26 H 26 H 26 H Blood Pressure 100/64 101/64 97/60 L Pulse Oximetry 99 99 100 12/21/17 20:45 12/21/17 21:00 12/21/17 21:15 Temperature Pulse Rate 85 89 83 Respiratory Rate 26 H 26 H 26 H Blood Pressure 98/61 L 95/61 L 100/64 Pulse Oximetry 99 99 100 12/21/17 21:30 12/21/17 21:45 12/21/17 22:00 Temperature Pulse Rate 82 91 H 97 H Respiratory Rate 26 H 26 H 26 H Blood Pressure 98/64 L 104/68 106/70 Pulse Oximetry 99 99 98 12/21/17 22:15 12/21/17 22:30 12/21/17 22:45 Temperature Pulse Rate 103 H 110 H 99 H Respiratory Rate 25 H 29 H 23 Blood Pressure 102/62 99/58 L 102/61 Pulse Oximetry 97 95 100 12/21/17 23:00 12/21/17 23:15 12/21/17 23:30 Temperature Pulse Rate 97 H 95 H 90 Respiratory Rate 26 H 26 H 26 H Blood Pressure 104/62 100/59 L 100/59 L Pulse Oximetry 100 100 100 12/21/17 23:45 12/22/17 00:00 12/22/17 00:15 Temperature 98.1 F Pulse Rate 91 H 86 100 H Respiratory Rate 26 H 26 H 26 H Blood Pressure 103/62 99/58 L 107/65 Pulse Oximetry 100 100 98 12/22/17 00:29 12/22/17 00:30 12/22/17 00:45 Temperature Pulse Rate 99 H 99 H 100 H Respiratory Rate 26 H 28 H 29 H Blood Pressure 109/68 105/64 Pulse Oximetry 99 99 97 12/22/17 01:00 12/22/17 01:15 12/22/17 01:30 Temperature Pulse Rate 98 H 97 H 95 H Respiratory Rate 27 H 27 H 26 H Blood Pressure 103/65 104/65 103/65 Pulse Oximetry 98 99 98 12/22/17 01:45 12/22/17 02:00 12/22/17 02:15 Temperature Pulse Rate 101 H 107 H 109 H Respiratory Rate 29 H 26 H 34 H Blood Pressure 107/67 109/69 105/69 Pulse Oximetry 96 94 L 99 12/22/17 02:30 12/22/17 02:45 12/22/17 03:00 Temperature Pulse Rate 102 H 100 H 107 H Respiratory Rate 26 H 26 H 27 H Blood Pressure 107/68 106/66 108/65 Pulse Oximetry 100 100 94 L 12/22/17 03:15 12/22/17 03:30 12/22/17 03:45 Temperature Pulse Rate 91 H 81 84 Respiratory Rate 26 H 26 H 26 H Blood Pressure 100/60 100/60 98/60 L Pulse Oximetry 100 100 98 12/22/17 04:00 12/22/17 04:15 12/22/17 04:30 Temperature 98.6 F Pulse Rate 84 87 84 Respiratory Rate 26 H 26 H 26 H Blood Pressure 97/59 L 94/58 L 95/51 L Pulse Oximetry 97 97 97 12/22/17 04:45 12/22/17 05:00 12/22/17 05:15 Temperature Pulse Rate 87 86 83 Respiratory Rate 26 H 26 H 26 H Blood Pressure 94/54 L 94/53 L 95/55 L Pulse Oximetry 96 96 95 12/22/17 05:30 12/22/17 05:45 12/22/17 06:00 Temperature Pulse Rate 89 90 91 H Respiratory Rate 26 H 26 H 26 H Blood Pressure 92/56 L 89/54 L 92/54 L Pulse Oximetry 95 96 97 12/22/17 06:15 12/22/17 06:31 12/22/17 06:45 Temperature Pulse Rate 83 120 H 120 H Respiratory Rate 26 H 25 H 27 H Blood Pressure 97/56 L 131/58 L 117/58 L Pulse Oximetry 100 95 87 L 12/22/17 07:00 12/22/17 07:15 12/22/17 07:30 Temperature Pulse Rate 109 H 99 H 115 H Respiratory Rate 26 H 26 H 26 H Blood Pressure 106/58 L 106/61 111/64 Pulse Oximetry 92 L 96 88 L 12/22/17 07:45 12/22/17 08:00 12/22/17 08:15 Temperature 98.7 F Pulse Rate 97 H 90 91 H Respiratory Rate 26 H 26 H 26 H Blood Pressure 100/57 L 104/60 95/53 L Pulse Oximetry 97 97 97 12/22/17 08:30 12/22/17 08:45 12/22/17 09:00 Temperature Pulse Rate 90 90 111 H Respiratory Rate 26 H 26 H 24 Blood Pressure 94/54 L 98/55 L 132/77 Pulse Oximetry 97 96 93 L 12/22/17 09:15 12/22/17 09:30 12/22/17 09:45 Temperature Pulse Rate 113 H 104 H 101 H Respiratory Rate 25 H 25 H 24 Blood Pressure 116/68 102/56 L 96/55 L Pulse Oximetry 92 L 93 L 93 L 12/22/17 10:00 Temperature Pulse Rate 100 H Respiratory Rate 24 Blood Pressure 94/54 L Pulse Oximetry 94 L I&O: Intake & Output 12/20/17 12/21/17 12/22/17 12/23/17 06:59 06:59 06:59 06:59 Intake Total 5360 / 5360 4610.125 / 4610.125 5914.250 / 5914.250 0 / 0 Output Total 845 / 845 695 / 695 3755 / 3755 Balance 4515 / 4515 3915.125 / 3915.125 2159.250 / 2159.250 0 / 0 Weight 82.4 kg 97.6 kg Physical Exam: CONSTITUTIONAL/GENERAL: Obese female intubated on mechanical ventilation resting in bed in no apparent distress. TUBES/LINES/DRAINS: ETT, OG, right femoral line. SKIN: No jaundice, rashes, or lesions. Ecchymoses on upper extremities. No wounds seen anteriorly. Skin temperature appropriate. Not diaphoretic. HEAD: Atraumatic. Normocephalic. EYES: Pupils equal and round and reactive. No scleral icterus. No injection or drainage. Fundi not examined. ENT: Unable to evaluate hearing, sedated. Nose without bleeding or purulent drainage. Moist oral mucosa. ETT, OG in place. NECK: Trachea midline. Supple, nontender. CARDIOVASCULAR: Regular rate and rhythm without murmurs, gallops, or rubs. No JVD. Peripheral pulses symmetric. RESPIRATORY/CHEST: Symmetric, unlabored respirations. Rhonchi bilaterally, right more than left. Chest tube x 3 to right. GASTROINTESTINAL: Abdomen soft, obese, nondistended. Bowel sounds present. GENITOURINARY: Without palpable bladder distension. Read catheter in place. MUSCULOSKELETAL: Extremities without clubbing, cyanosis. Edema to bilateral upper extremities. No mottling or clubbing. NEUROLOGICAL: Sedated. Unresponsive to verbal or tactile stimuli. PSYCHIATRIC: Unable to evaluate, sedated. Diagnostic Tests Laboratory: Laboratory Results - last 72 hr 12/19/17 12/19/17 12/19/17 11:30 14:11 17:40 WBC RBC Hgb Hct MCV MCH MCHC RDW Plt Count MPV Prelim Diff (Auto) Neut % (Auto) Lymph % (Auto) Mora % (Auto) Eos % (Auto) Baso % (Auto) Neut # (Auto) Lymph # (Auto) Mora # (Auto) Eos # (Auto) Baso # (Auto) WBC Differential Seg Neuts % (Manual) Band Neuts % (Manual) Lymphocytes % (Manual) Monocytes % (Manual) Abs Neuts (Manual) Nucleated RBCs/100 WBC Differential Comment Toxic Granulation Dohle Bodies Platelet Estimate Platelet Morphology Puncture Site Patient Temperature O2 Saturation ABG pH ABG pCO2 ABG pO2 ABG HCO3 ABG O2 Content ABG Base Excess ABG Methemoglobin Pedro Pablo Test Hemoglobin Carboxyhemoglobin O2 Delivery Device Vent Setting Inspired O2 Critical Value Sodium Potassium Chloride Carbon Dioxide Anion Gap BUN Creatinine Estimated GFR POC Glucose 110 97 Random Glucose Calcium Prot Corrected Calcium Phosphorus Magnesium Total Bilirubin AST ALT Alkaline Phosphatase Ammonia Total Creatine Kinase Troponin I Total Protein Albumin BAL Total Volume 24.0 BAL RBC 200 BAL Nucleated 26.640 H BAL Neutrophils 91 BAL Lymphocytes 6 BAL Histiocytes 3 BAL White & Oth Cells 1110 Vancomycin Trough Valproic Acid 12/19/17 12/20/17 12/20/17 21:08 00:45 00:45 WBC RBC Hgb Hct MCV MCH MCHC RDW Plt Count MPV Prelim Diff (Auto) Neut % (Auto) Lymph % (Auto) Mora % (Auto) Eos % (Auto) Baso % (Auto) Neut # (Auto) Lymph # (Auto) Mora # (Auto) Eos # (Auto) Baso # (Auto) WBC Differential Seg Neuts % (Manual) Band Neuts % (Manual) Lymphocytes % (Manual) Monocytes % (Manual) Abs Neuts (Manual) Nucleated RBCs/100 WBC Differential Comment Toxic Granulation Dohle Bodies Platelet Estimate Platelet Morphology Puncture Site Patient Temperature O2 Saturation ABG pH ABG pCO2 ABG pO2 ABG HCO3 ABG O2 Content ABG Base Excess ABG Methemoglobin Pedro Pablo Test Hemoglobin Carboxyhemoglobin O2 Delivery Device Vent Setting Inspired O2 Critical Value Sodium 147 H Potassium 2.6 L* D Chloride 116 H Carbon Dioxide 20.6 L Anion Gap 10 BUN 23 H Creatinine 0.48 L Estimated GFR Greater than 89 POC Glucose 75 Random Glucose 114 H Calcium 6.5 L* Prot Corrected Calcium 8.3 L Phosphorus 1.1 L Magnesium 1.6 Total Bilirubin AST ALT Alkaline Phosphatase Ammonia 35 H Total Creatine Kinase Troponin I Total Protein 3.8 L Albumin BAL Total Volume BAL RBC BAL Nucleated BAL Neutrophils BAL Lymphocytes BAL Histiocytes BAL White & Oth Cells Vancomycin Trough Valproic Acid 48 L 12/20/17 12/20/17 12/20/17 00:54 04:40 04:40 WBC 12.3 H RBC 2.28 L Hgb 7.4 L Hct 21.9 L MCV 95.9 MCH 32.3 MCHC 33.7 RDW 15.0 Plt Count 208 MPV 9.3 Prelim Diff (Auto) Neut % (Auto) 92.9 H Lymph % (Auto) 3.6 L Mora % (Auto) 3.3 Eos % (Auto) 0.0 Baso % (Auto) 0.2 Neut # (Auto) 11.5 H Lymph # (Auto) 0.4 L Mora # (Auto) 0.4 Eos # (Auto) 0.0 Baso # (Auto) 0.0 WBC Differential . Seg Neuts % (Manual) Band Neuts % (Manual) Lymphocytes % (Manual) Monocytes % (Manual) Abs Neuts (Manual) Nucleated RBCs/100 WBC Differential Comment Auto diff final Toxic Granulation Dohle Bodies Platelet Estimate Platelet Morphology Puncture Site Patient Temperature O2 Saturation ABG pH ABG pCO2 ABG pO2 ABG HCO3 ABG O2 Content ABG Base Excess ABG Methemoglobin Pedro Pablo Test Hemoglobin Carboxyhemoglobin O2 Delivery Device Vent Setting Inspired O2 Critical Value Sodium 148 H Potassium 3.1 L Chloride 117 H Carbon Dioxide 20.4 L Anion Gap 11 BUN 24 H Creatinine 0.67 Estimated GFR 89 POC Glucose 86 Random Glucose 123 H Calcium 6.7 L* Prot Corrected Calcium 8.4 L Phosphorus 1.2 L Magnesium 1.7 Total Bilirubin AST ALT Alkaline Phosphatase Ammonia Total Creatine Kinase Troponin I Total Protein 3.9 L Albumin BAL Total Volume BAL RBC BAL Nucleated BAL Neutrophils BAL Lymphocytes BAL Histiocytes BAL White & Oth Cells Vancomycin Trough 16.8 H Valproic Acid 12/20/17 12/20/17 12/20/17 05:47 12:38 17:32 WBC RBC Hgb Hct MCV MCH MCHC RDW Plt Count MPV Prelim Diff (Auto) Neut % (Auto) Lymph % (Auto) Mora % (Auto) Eos % (Auto) Baso % (Auto) Neut # (Auto) Lymph # (Auto) Mora # (Auto) Eos # (Auto) Baso # (Auto) WBC Differential Seg Neuts % (Manual) Band Neuts % (Manual) Lymphocytes % (Manual) Monocytes % (Manual) Abs Neuts (Manual) Nucleated RBCs/100 WBC Differential Comment Toxic Granulation Dohle Bodies Platelet Estimate Platelet Morphology Puncture Site Art line Patient Temperature 98.6 O2 Saturation 96 ABG pH 7.40 ABG pCO2 48 H ABG pO2 212 H ABG HCO3 29 H ABG O2 Content 17.1 ABG Base Excess 4.7 H ABG Methemoglobin 1.6 Pedro Pablo Test Hemoglobin 12.3 Carboxyhemoglobin 1.3 O2 Delivery Device Ventilator Vent Setting Prvc/[id number]/ Inspired O2 80 Critical Value No Sodium Potassium Chloride Carbon Dioxide Anion Gap BUN Creatinine Estimated GFR POC Glucose 140 H 126 H Random Glucose Calcium Prot Corrected Calcium Phosphorus Magnesium Total Bilirubin AST ALT Alkaline Phosphatase Ammonia Total Creatine Kinase Troponin I Total Protein Albumin BAL Total Volume BAL RBC BAL Nucleated BAL Neutrophils BAL Lymphocytes BAL Histiocytes BAL White & Oth Cells Vancomycin Trough Valproic Acid 12/20/17 12/20/17 12/21/17 17:53 23:18 04:40 WBC 14.9 H RBC 2.35 L Hgb 7.6 L Hct 22.4 L MCV 95.7 MCH 32.5 MCHC 34.0 RDW 15.6 Plt Count 191 MPV 9.3 Prelim Diff (Auto) Slide review pending Neut % (Auto) 92.3 H Lymph % (Auto) 3.1 L Mora % (Auto) 4.4 Eos % (Auto) 0.0 Baso % (Auto) 0.2 Neut # (Auto) 13.7 H Lymph # (Auto) 0.5 L Mora # (Auto) 0.6 Eos # (Auto) 0.0 Baso # (Auto) 0.0 WBC Differential Manual diff final Seg Neuts % (Manual) 80 H Band Neuts % (Manual) 16 H Lymphocytes % (Manual) 1 L Monocytes % (Manual) 3 Abs Neuts (Manual) 14.3 H Nucleated RBCs/100 WBC 1 H Differential Comment . Toxic Granulation 1+ H Dohle Bodies Present H Platelet Estimate Normal Platelet Morphology Normal Puncture Site Patient Temperature O2 Saturation ABG pH ABG pCO2 ABG pO2 ABG HCO3 ABG O2 Content ABG Base Excess ABG Methemoglobin Pedro Pablo Test Hemoglobin Carboxyhemoglobin O2 Delivery Device Vent Setting Inspired O2 Critical Value Sodium 148 H Potassium 3.4 L Chloride 118 H Carbon Dioxide 20.1 L Anion Gap 10 BUN 22 H Creatinine 0.54 Estimated GFR Greater than 89 POC Glucose 142 H Random Glucose 124 H Calcium 7.0 L* Prot Corrected Calcium 8.7 Phosphorus 1.8 L Magnesium 2.4 D Total Bilirubin AST ALT Alkaline Phosphatase Ammonia Total Creatine Kinase Troponin I Total Protein 4.1 L Albumin BAL Total Volume BAL RBC BAL Nucleated BAL Neutrophils BAL Lymphocytes BAL Histiocytes BAL White & Oth Cells Vancomycin Trough Valproic Acid 12/21/17 12/21/17 12/21/17 04:40 09:58 10:43 WBC RBC Hgb Hct MCV MCH MCHC RDW Plt Count MPV Prelim Diff (Auto) Neut % (Auto) Lymph % (Auto) Mora % (Auto) Eos % (Auto) Baso % (Auto) Neut # (Auto) Lymph # (Auto) Mora # (Auto) Eos # (Auto) Baso # (Auto) WBC Differential Seg Neuts % (Manual) Band Neuts % (Manual) Lymphocytes % (Manual) Monocytes % (Manual) Abs Neuts (Manual) Nucleated RBCs/100 WBC Differential Comment Toxic Granulation Dohle Bodies Platelet Estimate Platelet Morphology Puncture Site Art line Patient Temperature 98.6 O2 Saturation 88 L* ABG pH 7.33 L ABG pCO2 35 L ABG pO2 61 ABG HCO3 18 L ABG O2 Content 9.4 L ABG Base Excess -6.8 L ABG Methemoglobin 1.8 Pedro Pablo Test Present Hemoglobin 7.5 L* Carboxyhemoglobin 0.9 O2 Delivery Device Ventilator Vent Setting Prvc/ac Inspired O2 55 Critical Value Yes Sodium 146 H Potassium 3.5 Chloride 116 H Carbon Dioxide 19.7 L Anion Gap 10 BUN 23 H Creatinine 0.52 Estimated GFR Greater than 89 POC Glucose 112 H Random Glucose 126 H Calcium 6.7 L* Prot Corrected Calcium 8.2 L Phosphorus 1.4 L Magnesium 2.1 Total Bilirubin AST ALT Alkaline Phosphatase Ammonia Total Creatine Kinase Troponin I Total Protein 4.3 L Albumin BAL Total Volume BAL RBC BAL Nucleated BAL Neutrophils BAL Lymphocytes BAL Histiocytes BAL White & Oth Cells Vancomycin Trough Valproic Acid 12/21/17 12/21/17 12/22/17 12:13 18:11 00:24 WBC RBC Hgb Hct MCV MCH MCHC RDW Plt Count MPV Prelim Diff (Auto) Neut % (Auto) Lymph % (Auto) Mora % (Auto) Eos % (Auto) Baso % (Auto) Neut # (Auto) Lymph # (Auto) Mora # (Auto) Eos # (Auto) Baso # (Auto) WBC Differential Seg Neuts % (Manual) Band Neuts % (Manual) Lymphocytes % (Manual) Monocytes % (Manual) Abs Neuts (Manual) Nucleated RBCs/100 WBC Differential Comment Toxic Granulation Dohle Bodies Platelet Estimate Platelet Morphology Puncture Site Patient Temperature O2 Saturation ABG pH ABG pCO2 ABG pO2 ABG HCO3 ABG O2 Content ABG Base Excess ABG Methemoglobin Pedro Pablo Test Hemoglobin Carboxyhemoglobin O2 Delivery Device Vent Setting Inspired O2 Critical Value Sodium Potassium Chloride Carbon Dioxide Anion Gap BUN Creatinine Estimated GFR POC Glucose 129 H 102 88 Random Glucose Calcium Prot Corrected Calcium Phosphorus Magnesium Total Bilirubin AST ALT Alkaline Phosphatase Ammonia Total Creatine Kinase Troponin I Total Protein Albumin BAL Total Volume BAL RBC BAL Nucleated BAL Neutrophils BAL Lymphocytes BAL Histiocytes BAL White & Oth Cells Vancomycin Trough Valproic Acid 12/22/17 12/22/17 12/22/17 05:51 06:21 06:21 WBC RBC Hgb Hct MCV MCH MCHC RDW Plt Count MPV Prelim Diff (Auto) Neut % (Auto) Lymph % (Auto) Mora % (Auto) Eos % (Auto) Baso % (Auto) Neut # (Auto) Lymph # (Auto) Mora # (Auto) Eos # (Auto) Baso # (Auto) WBC Differential Seg Neuts % (Manual) Band Neuts % (Manual) Lymphocytes % (Manual) Monocytes % (Manual) Abs Neuts (Manual) Nucleated RBCs/100 WBC Differential Comment Toxic Granulation Dohle Bodies Platelet Estimate Platelet Morphology Puncture Site Patient Temperature O2 Saturation ABG pH ABG pCO2 ABG pO2 ABG HCO3 ABG O2 Content ABG Base Excess ABG Methemoglobin Pedro Pablo Test Hemoglobin Carboxyhemoglobin O2 Delivery Device Vent Setting Inspired O2 Critical Value Sodium 150 H Potassium 4.2 Chloride 120 H Carbon Dioxide 21.8 Anion Gap 8 BUN 19 H Creatinine 0.49 L Estimated GFR Greater than 89 POC Glucose 98 Random Glucose 100 Calcium 6.6 L* Prot Corrected Calcium 8.4 L Phosphorus 1.8 L Magnesium 1.9 Total Bilirubin 0.2 AST 16 ALT 8 L Alkaline Phosphatase 67 Ammonia 19 Total Creatine Kinase 93 Troponin I 0.02 D Total Protein 3.8 L Albumin 1.2 L BAL Total Volume BAL RBC BAL Nucleated BAL Neutrophils BAL Lymphocytes BAL Histiocytes BAL White & Oth Cells Vancomycin Trough Valproic Acid 12/22/17 10:14 WBC RBC Hgb Hct MCV MCH MCHC RDW Plt Count MPV Prelim Diff (Auto) Neut % (Auto) Lymph % (Auto) Mora % (Auto) Eos % (Auto) Baso % (Auto) Neut # (Auto) Lymph # (Auto) Mora # (Auto) Eos # (Auto) Baso # (Auto) WBC Differential Seg Neuts % (Manual) Band Neuts % (Manual) Lymphocytes % (Manual) Monocytes % (Manual) Abs Neuts (Manual) Nucleated RBCs/100 WBC Differential Comment Toxic Granulation Dohle Bodies Platelet Estimate Platelet Morphology Puncture Site Right radial Patient Temperature 98.6 O2 Saturation 92 ABG pH 7.35 L ABG pCO2 36 L ABG pO2 73 ABG HCO3 19 L ABG O2 Content 13.7 ABG Base Excess -5.5 L ABG Methemoglobin 1.7 Pedro Pablo Test Present Hemoglobin 10.6 L Carboxyhemoglobin 0.8 O2 Delivery Device Ventilator Vent Setting Prvc ac Inspired O2 50 Critical Value No Sodium Potassium Chloride Carbon Dioxide Anion Gap BUN Creatinine Estimated GFR POC Glucose Random Glucose Calcium Prot Corrected Calcium Phosphorus Magnesium Total Bilirubin AST ALT Alkaline Phosphatase Ammonia Total Creatine Kinase Troponin I Total Protein Albumin BAL Total Volume BAL RBC BAL Nucleated BAL Neutrophils BAL Lymphocytes BAL Histiocytes BAL White & Oth Cells Vancomycin Trough Valproic Acid Result Diagrams: 12/22/17 12:14 12/22/17 06:21 Microbiology: Microbiology 12/17/17 08:24 Aerobic Blood Culture - Final Blood - Peripheral No growth in 5 days Anaerobic Blood Culture - Final No growth in 5 days 12/17/17 08:10 Aerobic Blood Culture - Final Blood - Peripheral No growth in 5 days Anaerobic Blood Culture - Final Staphylococcus coag negative Viridans streptococcus grp 12/19/17 11:30 Gram Stain - Final Bronchial - Bronchial Bronchial Culture - Final Klebsiella pneumoniae 12/19/17 11:30 Acid Fast Bacilli Smear - Final Bronchial Washings - Bronchial No acid fast bacilli seen 12/19/17 00:56 Gram Stain - Final Fluid - Pleural fluid Body Fluid Culture - Preliminary Karla glabrata gram positive rods 12/19/17 00:30 Gram Stain - Final Fluid - Pleural fluid Body Fluid Culture - Preliminary Klebsiella pneumoniae Karla albicans Karla glabrata gram positive rods 12/17/17 15:55 Gram Stain - Final Fluid - Pleural fluid Body Fluid Culture - Preliminary gram positive rods Karla glabrata Klebsiella pneumoniae 12/19/17 11:30 Fungal Smear - Final Bronchial Washings - Bronchial Rare budding yeast 12/17/17 15:54 Gram Stain - Final Sputum - Endotracheal Sputum Culture - Final Klebsiella pneumoniae Procedures: 12/17/2017: Endotracheal intubation 12/17/2017: OGT placement 12/17/2017: Femoral central line placement 12/17/2017: Right-sided chest tube placement x 2 12/17/2017: Right radial arterial line placement 12/17/2017: Read catheter placement 12/21/2017:Right-sided chest tube placed #3 Patient/Family Conference Present at Family Conference: Luis Woodruff. Family Conference Time: 42 Family Conference Location: Bedside Issues Discussed: * Palliative care role, purpose, approach * Additional medical, psychosocial, and spiritual history * Patients general health, functional status, and cognitive changes in the months leading up to the current hospitalization * Patient/family understanding of the current medical problems * Patient/family understanding of prognosis -guarded prognosis * Patients goals of care as best understood from advance directives and/or conversations and/or values * Current medical treatment options and benefits/burdens of those options * Questions answered to the best of my ability * Palliative care contact information provided Assessment and Plan - Disease Oriented Problem List (1) Respiratory failure (2) Pneumonia (3) Septic shock - Symptom Scale (1) Pain 0-10 Scale: Unable to quantify Comment: History of chronic pain to back. Acute pain secondary to invasive interventions, bedbound due to critical illness. (2) Shortness of breath 0-10 Scale: Unable to quantify Comment: Currently intubated on mechanical ventilation. Pertinent Non-Medical Issues: Psychosocial: Patient was born and raised in [place], [place]. She has been to her , Luis, for approximately 20 years. She has 1 daughter, Margarita. She is a retired teacher. Spiritual: Zoroastrian bryson Legal: No advance directives completed. Ethical issues impacting care: No ethical issues identified. Important Contacts: Luis Woodruff, : [phone] Prognosis: Mrs. Woodruff is a 62-year-old female with multiple comorbidities and recent acute hospitalizations. Patient currently requiring mechanical ventilation, being treated for septic shock and bilateral aspiration pneumonias. Currently status post 3 chest tubes secondary to worsening emphysema. Has been evaluated by cardiothoracic surgery, poor surgical candidate at this time. Overall prognosis is guarded. Patient at a very high risk for further complications, continue decline and . Code Status: Full Code Plan: * CODE STATUS: Full code. * MEDICAL DECISION-MAKER: Patient unable to participate in medical decision making given clinical condition -intubated, sedated. No advance directives completed. As per [place] statute, healthcare proxy decision-maker falls to patient's Luis Woodruff. He has accepted this role and is fully supported by their family. * GOALS OF CARE: As per , goal is to allow a few more days for clinical improvement, reevaluate patient's condition. reports that no advanced directives have been completed; however, treatment/end-of-life conversations has previously taken place. reports that patient has verbalized in the past not wishing her life to be prolonged "with machines". hopeful of patient's recovery but verbalized awareness of patient's critical condition. * SYMPTOMS: = Pain: Acute on chronic. Patient with history of chronic back pain status post multiple surgical interventions/appliances in place. Following with pain doctor in [facility]. Currently on fentanyl drip, appears comfortable at the time of my visit. * Spiritual services offered and accepted. Referral made. * Ongoing emotional support and active listening provided. Spiritual services offered and accepted. * Palliative care to continue to follow-up for emotional support and goals of care patient's clinical course continues to evolve. receptive to palliative care follow-ups. Appreciation Thank you for the opportunity to participate in the care of Iris Woodruff. Attestation Attestation: To help prompt me to consider important information that might be impacting today's encounter and assessment, information from prior notes written by myself or my colleagues may have been "brought forward" into today's note. My signature on this note, however, is an attestation that I personally performed the exam, history, and/or decision-making noted today, and, unless otherwise indicated, the interactions with patient, family, and staff as well as the review of records all occurred today. I also attest that the listed assessment and stated plan reflect my best clinical judgment today based on the combination of historical information, prior notes, and today's exam/ interactions. When time spent is documented, it refers only to time spent today by the signer, or if indicated, combined time spent today by collaborating physician/nurse practitioner.
[2017-12-22 12:43] LABS: Activated Partial Thrombo Time 32.9 sec (24.3-30.1); INR 1.4 Ratio; Prothrombin Time 14.3 sec (9.8-11.6)
[2017-12-22 13:26] LABS: Lymphocytes 3 % (9-44); Metamyelocytes 1 % (0-1); Monocytes 5 % (0-8); Myelocytes 1 % (0-0); Platelet Morphology Normal (Normal); Toxic Granulation 2+
[2017-12-22] MEDS: Micafungin Inj 150 MG in Sodium Chlor 0.9% Inj 100 ML IV.SIG SCH (17:26)
[2017-12-22] MEDS: QUEtiapine 25 MG Tablet PO SCH (22:08)
[2017-12-22] MEDS: fentaNYL 10 mcg/mL Premix Drip 2,500 MCG/250 ML BAG IV.SIG PRN (22:20)
[2017-12-23] MEDS: Insulin NovoLOG Aspart Correctional Sugar Inj SQ SCH ×3 (01:01→11:45)
[2017-12-23] MEDS: Midazolam 50 MG/50 ML Inj 50 MG/50 ML BAG IV.CONT PRN ×5 (01:27→22:09)
[2017-12-23] MEDS: Oral Hygiene Kit OROPHARYNG SCH ×3 (04:47→16:23)
[2017-12-23] MEDS: Epoprostenol (30,000/mL) Neb 75 ML in Sodium Chlor 0.9% Inj 25 ML NEB SCH ×2 (05:50→16:22)
[2017-12-23] MEDS: Hydrocortisone Sod Succinate 100 MG Vial IV.PUSH SCH ×3 (05:51→21:30)
[2017-12-23] MEDS: Heparin - SQ 10,000 UNITS/ML Vial SQ SCH ×3 (05:51→21:30)
[2017-12-23] MEDS: Vancomycin Inj 1,250 MG in Sodium Chlor 0.9% Inj 250 ML IV.SIG SCH (05:53)
[2017-12-23] MEDS: fentaNYL 10 mcg/mL Premix Drip 2,500 MCG/250 ML BAG IV.SIG PRN ×2 (05:54→16:31)
[2017-12-23 06:37] LABS: Baso % (Auto) 0.2 % (0.0-2.0); Eos # (Auto) 0.1 th/mm3 (0.0-0.4); Eos % (Auto) 0.3 % (0.0-4.0); Hematocrit 22.2 % (35.0-46.0); Hemoglobin 7.5 gm/dL (11.6-15.3); Lymph # (Auto) 0.6 th/mm3 (1.0-4.8); Lymph % (Auto) 3.2 % (9.0-44.0); Mean Corpuscular HGB Conc 33.7 % (32.0-36.0); Mean Corpuscular Hemoglobin 32.3 pg (27.0-34.0); Mean Corpuscular Volume 95.8 fL (80.0-100.0); Mono # (Auto) 0.3 th/mm3 (0.0-0.9); Mono % (Auto) 1.4 % (0.0-8.0); Neut # (Auto) 16.9 th/mm3 (1.8-7.7); Neut % (Auto) 94.9 % (16.0-70.0); Red Blood Count 2.31 mil/mm3 (4.00-5.30); Red Cell Distribution Width 15.9 % (11.6-17.2); White Blood Count 17.8 th/mm3 (4.0-11.0)
[2017-12-23 06:56] LABS: Anion Gap 7 meq/L (5-15); Blood Urea Nitrogen 19 mg/dL (7-18); Calcium 6.7 mg/dL (8.5-10.1); Carbon Dioxide 23.9 meq/L (21.0-32.0); Chloride 117 meq/L (98-107); Glomerular Filtration Rate Greater Than 89 mL/min (>89); Glucose,Random 129 mg/dL (74-106); Phosphorus 2.2 mg/dL (2.5-4.9); Potassium 4.3 meq/L (3.5-5.1); Sodium 148 meq/L (136-145)
[2017-12-23 07:21] LABS: Platelet Count 155 th/mm3 (150-450)
[2017-12-23 07:24] LABS: Lymphocytes 1 % (9-44); Monocytes 5 % (0-8); Platelet Estimate Normal (Normal); Platelet Morphology Normal (Normal); Promyelocyte 2 % (0-0); Toxic Granulation 1+; Toxic Vacuolation Present
[2017-12-23 07:26] LABS: Calcium-Albumin Corrected 8.4 mg/dL (8.5-10.1)
[2017-12-23] MEDS: Famotidine 20 MG Tablet PO SCH (08:25)
[2017-12-23] MEDS: Polyethylene Glycol 3350 17 GM Packet PO SCH ×2 (08:26→21:28)
[2017-12-23] MEDS: Senna/Docusate Sodium 8.6/50 MG Tablet PO SCH ×2 (08:26→21:29)
[2017-12-23] MEDS: Chlorhexidine 0.12% Oral Kit 15 ML UDC OROPHARYNG SCH ×2 (08:26→21:28)
[2017-12-23] MEDS: Carboxymethylcellulose 0.5% Opth Drops 15 ML Bottle EACH EYE SCH ×2 (08:26→21:29)
[2017-12-23] MEDS: Sodium Bicarbonate 8.4% Inj 100 MEQ in Dextrose 5% in Water Inj 900 ML IV.CONT SCH ×4 (08:27→18:22)
[2017-12-23] MEDS: Propofol 1000 mg/100 ml Inj 1,000 MG/100 ML BOTTLE IV.CONT PRN ×2 (11:32→18:23)
[2017-12-23] MEDS ORDERED: RASS Change Order MISCELLANE ONE ×2 (13:00)
--- NOTE | 2017-12-23 14:08 | P.PNCV ---
- Note Subjective/Hospital Course: pt now has 3 right sided chest tube #3 has 2-3 = air leak , #2 +1 all to 40cm suction pt now off pressors remains sedated on vent 55% fio2 +8 peep may need to re-eval for repeat ct scan in am pt will not tolerate one lung ventilation at this during any surgery will continue to monitor 12/23 pt now on 75% Fi02 peep down to 5 , no on flolan sub q emphysema with some improvement chest x 3 apical #3 +2 continuous air leak mid #2 + 1 air leak lower #1 no air leak all to 40 cm suction will monitor Objective: Vital Signs - 24 hr 12/22/17 14:15 12/22/17 14:30 12/22/17 14:45 Temperature Pulse Rate 93 H 92 H 92 H Respiratory Rate 27 H 27 H 25 H Blood Pressure 97/55 L 100/56 L 99/56 L Pulse Oximetry 94 L 94 L 94 L 12/22/17 15:00 12/22/17 15:15 12/22/17 15:16 Temperature Pulse Rate 92 H 93 H Respiratory Rate 26 H 26 H 24 Blood Pressure 99/56 L 100/56 L Pulse Oximetry 94 L 94 L 95 12/22/17 15:30 12/22/17 15:45 12/22/17 16:00 Temperature 98.4 F Pulse Rate 95 H 97 H 100 H Respiratory Rate 26 H 25 H 28 H Blood Pressure 99/57 L 96/54 L 101/56 L Pulse Oximetry 94 L 94 L 95 12/22/17 16:15 12/22/17 16:30 12/22/17 16:45 Temperature Pulse Rate 96 H 93 H 93 H Respiratory Rate 25 H 24 25 H Blood Pressure 102/58 L 100/59 L 100/59 L Pulse Oximetry 95 95 95 12/22/17 17:00 12/22/17 17:15 12/22/17 17:30 Temperature Pulse Rate 91 H 92 H 92 H Respiratory Rate 21 25 H 20 Blood Pressure 99/58 L 101/56 L 107/60 Pulse Oximetry 99 95 96 12/22/17 17:45 12/22/17 18:00 12/22/17 18:15 Temperature Pulse Rate 94 H 96 H 98 H Respiratory Rate 25 H 27 H 21 Blood Pressure 110/66 101/56 L 99/54 L Pulse Oximetry 95 94 L 94 L 12/22/17 18:30 12/22/17 18:45 12/22/17 19:00 Temperature Pulse Rate 104 H 108 H 101 H Respiratory Rate 16 27 H 27 H Blood Pressure 115/69 113/70 106/65 Pulse Oximetry 99 95 97 12/22/17 19:15 12/22/17 19:30 12/22/17 19:37 Temperature Pulse Rate 96 H 93 H 101 H Respiratory Rate 27 H 31 H 24 Blood Pressure 110/67 109/65 Pulse Oximetry 93 L 92 L 99 12/22/17 19:45 12/22/17 20:00 12/22/17 20:15 Temperature 98.8 F Pulse Rate 99 H 96 H 94 H Respiratory Rate 29 H 30 H 26 H Blood Pressure 115/69 110/66 106/62 Pulse Oximetry 95 91 L 90 L 12/22/17 20:30 12/22/17 20:45 12/22/17 21:00 Temperature Pulse Rate 93 H 91 H 92 H Respiratory Rate 26 H 24 32 H Blood Pressure 105/61 104/63 105/65 Pulse Oximetry 90 L 90 L 92 L 12/22/17 21:15 12/22/17 21:30 12/22/17 21:45 Temperature Pulse Rate 92 H 89 91 H Respiratory Rate 31 H 25 H 33 H Blood Pressure 104/62 106/67 103/62 Pulse Oximetry 92 L 92 L 93 L 12/22/17 22:00 12/22/17 22:15 12/22/17 22:30 Temperature Pulse Rate 91 H 91 H 92 H Respiratory Rate 25 H 24 27 H Blood Pressure 108/64 112/69 108/62 Pulse Oximetry 94 L 93 L 92 L 12/22/17 22:45 12/22/17 23:00 12/22/17 23:15 Temperature Pulse Rate 94 H 92 H 92 H Respiratory Rate 27 H 24 24 Blood Pressure 111/79 103/60 100/59 L Pulse Oximetry 93 L 89 L 93 L 12/22/17 23:30 12/22/17 23:45 12/23/17 00:00 Temperature 98.4 F Pulse Rate 89 86 87 Respiratory Rate 24 27 H 24 Blood Pressure 105/63 109/67 119/76 Pulse Oximetry 94 L 94 L 92 L 12/23/17 00:15 12/23/17 01:00 12/23/17 01:22 Temperature Pulse Rate 90 91 H 88 Respiratory Rate 24 23 23 Blood Pressure 119/73 109/64 Pulse Oximetry 92 L 98 94 L 12/23/17 01:37 12/23/17 01:40 12/23/17 02:00 Temperature Pulse Rate 87 88 81 Respiratory Rate 25 H 18 17 Blood Pressure 100/60 104/62 Pulse Oximetry 97 93 L 94 L 12/23/17 02:20 12/23/17 02:40 12/23/17 03:00 Temperature Pulse Rate 89 94 H 86 Respiratory Rate 18 12 22 Blood Pressure 99/54 L 94/54 L 116/60 Pulse Oximetry 95 95 97 12/23/17 03:20 12/23/17 03:40 12/23/17 04:00 Temperature 98.1 F Pulse Rate 81 70 66 Respiratory Rate 24 24 24 Blood Pressure 102/63 108/64 106/64 Pulse Oximetry 96 96 97 12/23/17 04:20 12/23/17 04:40 12/23/17 05:00 Temperature Pulse Rate 65 71 94 H Respiratory Rate 24 24 24 Blood Pressure 110/64 106/65 124/71 Pulse Oximetry 96 96 92 L 12/23/17 05:20 12/23/17 05:40 12/23/17 05:54 Temperature Pulse Rate 90 83 76 Respiratory Rate 24 24 24 Blood Pressure 100/62 104/61 Pulse Oximetry 91 L 91 L 93 L 12/23/17 06:00 12/23/17 06:20 12/23/17 06:40 Temperature Pulse Rate 87 97 H 115 H Respiratory Rate 24 22 10 L Blood Pressure 105/62 109/63 113/69 Pulse Oximetry 92 L 93 L 12/23/17 07:00 12/23/17 07:20 12/23/17 07:38 Temperature Pulse Rate 84 90 Respiratory Rate 24 22 24 Blood Pressure 110/61 106/61 Pulse Oximetry 92 L 93 L 92 L 12/23/17 07:40 12/23/17 08:00 12/23/17 08:20 Temperature 99.1 F Pulse Rate 88 91 H 93 H Respiratory Rate 24 24 24 Blood Pressure 105/64 104/58 L 99/57 L Pulse Oximetry 92 L 91 L 92 L 12/23/17 08:40 12/23/17 09:00 12/23/17 09:20 Temperature Pulse Rate 96 H 92 H 90 Respiratory Rate 24 24 24 Blood Pressure 105/62 112/66 105/60 Pulse Oximetry 92 L 92 L 92 L 12/23/17 09:40 12/23/17 10:00 12/23/17 11:00 Temperature Pulse Rate 91 H 92 H 72 Respiratory Rate 24 24 24 Blood Pressure 104/60 100/56 L Pulse Oximetry 94 L 95 12/23/17 12:00 Temperature Pulse Rate 76 Respiratory Rate 24 Blood Pressure Pulse Oximetry 93 L GENERAL: sedated on vent / orally intubated SKIN: Warm and dry./ sub q emphysema to neck chest and arms HEAD: Normocephalic. EYES: No scleral icterus. No injection or drainage. NECK: Supple, trachea midline. No JVD or lymphadenopathy. CARDIOVASCULAR: Regular rate and rhythm without murmurs, gallops, or rubs. RESPIRATORY: Breath sounds equal bilaterally. No accessory muscle use. CT x 3 right lateral chest wall GASTROINTESTINAL: Abdomen soft, non-tender, nondistended. MUSCULOSKELETAL: No cyanosis, or edema. BACK: Nontender without obvious deformity. No CVA tenderness. Labs: Laboratory Results - last 12 hr 12/23/17 12/23/17 12/23/17 05:08 05:10 05:10 WBC 17.8 H RBC 2.31 L Hgb 7.5 L Hct 22.2 L MCV 95.8 MCH 32.3 MCHC 33.7 RDW 15.9 Plt Count 155 MPV 8.0 Prelim Diff (Auto) Slide review pending Neut % (Auto) 94.9 H Lymph % (Auto) 3.2 L [place] % (Auto) 1.4 Eos % (Auto) 0.3 Baso % (Auto) 0.2 Neut # (Auto) 16.9 H Lymph # (Auto) 0.6 L [place] # (Auto) 0.3 Eos # (Auto) 0.1 Baso # (Auto) 0.0 WBC Differential Manual diff final Seg Neuts % (Manual) 80 H Band Neuts % (Manual) 12 H Lymphocytes % (Manual) 1 L Monocytes % (Manual) 5 Promyelocytes % (Man) 2 H Abs Neuts (Manual) 16.7 H Differential Comment . Toxic Granulation 1+ H Toxic Vacuolation Present H Platelet Estimate Normal Platelet Morphology Normal Sodium 148 H Potassium 4.3 Chloride 117 H Carbon Dioxide 23.9 Anion Gap 7 BUN 19 H Creatinine 0.54 Estimated GFR Greater than 89 POC Glucose 127 H Random Glucose 129 H Calcium 6.7 L* Prot Corrected Calcium 8.4 L Phosphorus 2.2 L Magnesium 2.0 Total Protein 4.0 L 12/23/17 11:45 WBC RBC Hgb Hct MCV MCH MCHC RDW Plt Count MPV Prelim Diff (Auto) Neut % (Auto) Lymph % (Auto) [place] % (Auto) Eos % (Auto) Baso % (Auto) Neut # (Auto) Lymph # (Auto) [place] # (Auto) Eos # (Auto) Baso # (Auto) WBC Differential Seg Neuts % (Manual) Band Neuts % (Manual) Lymphocytes % (Manual) Monocytes % (Manual) Promyelocytes % (Man) Abs Neuts (Manual) Differential Comment Toxic Granulation Toxic Vacuolation Platelet Estimate Platelet Morphology Sodium Potassium Chloride Carbon Dioxide Anion Gap BUN Creatinine Estimated GFR POC Glucose 130 H Random Glucose Calcium Prot Corrected Calcium Phosphorus Magnesium Total Protein Result Diagrams: 12/23/17 05:10 12/23/17 05:10 - Plan (1) Respiratory failure Plan: pt still requiring high flow 02 would not tolerate one lung ventilation for surgery (2) Pneumonia (1) Respiratory failure Qualifiers: Chronicity: acute Respiratory failure complication: hypoxia and hypercapnia Qualified Code(s): J96.01 - Acute respiratory failure with hypoxia; J96.02 - Acute respiratory failure with hypercapnia (2) Pneumonia Qualifiers: Pneumonia type: due to unspecified organism Laterality: bilateral Lung location: unspecified part of lung Qualified Code(s): J18.9 - Pneumonia, unspecified organism
--- NOTE | 2017-12-23 14:22 | P.PNCC ---
Subjective Subjective Remarks/Hospital Course: This is a 62yF who was originally admitted on 11/23 with a diagnosis of colitis, found to have enterovirus. discharged on 12/11 at that time on PO vancomycin, but came back on 12/13 with altered mental status and hypoglycemia, again discharged on 12/15. She was mildly fatigued on 12/16 according to her and asked to wait another day before traveling back to her home in [place]. This morning, she was unarousable and her called 911. She was intubated upon arrival to the emergency department for agonal respirations. CXR demonstrates bilateral multifocal pneumonia. She is febrile, hypotensive. CVL placed in the ER and vasopressors initiated after 2L bolus crystalloid. CT chest/abd/pelvis demonstrates right pneumothorax, densely consolidated right lower lobe, bilateral pulmonary infiltrates, evidence of ongoing colitis. Patient continue to be unstable. Immediately after identifying ptx on CT scan, I emergently placed right chest tube with some improvements in hemodynamics, but ongoing distributive shock persists. I placed arterial line. No additional information available from the patient, ROS unobtainable. In discussion with the , she has not had any new complaints in the 48h she was home, and other than mild fatigue last night, no new complaints. She was able to walk to the bathroom without assistance yesterday. 12/18: shock remains. now on levophed, vasopressin, phenylephrine. second chest tube placed overnight for worsening SQ air. acidosis remains and is severe. 12/19: Afebrile. Remains on vasopressin drip only. On stress dose hydrocortisone. Evaluated by CT surgery. Not a candidate for intervention at the present time. Chest tube continues to leak. Epoprostenol added today 12/20: Afebrile. FiO2 has decreased and is currently 70%. Currently replacing potassium, phosphorus and magnesium. Recheck later this afternoon. Less chest tube leak today down to 1 chamber. SUBJECTIVE: 12/21: Overnight, worsening subcutaneous emphysema. A third chest tube placed by overnight head stock transfer clerk after discussion with cardiothoracic surgery. Currently hemodynamically stable. Replacing phosphorus today. To be evaluated by CT surgery today. 12/22: Remains sedated, orally intubated on mechanical ventilation. Persistent air leak and chest tube noted. 12/23: Remains sedated, orally intubated on mechanical ventilation. Air leak persists though slightly improved. PEEP at +5 FiO2 55%, inhaled Flolan continues. Central line replaced with right IJ triple-lumen catheter. Objective Vital Signs / I&O: Vital Signs 12/22/17 14:15 12/22/17 14:30 12/22/17 14:45 Temperature Pulse Rate 93 H 92 H 92 H Respiratory Rate 27 H 27 H 25 H Blood Pressure 97/55 L 100/56 L 99/56 L Pulse Oximetry 94 L 94 L 94 L 12/22/17 15:00 12/22/17 15:15 12/22/17 15:16 Temperature Pulse Rate 92 H 93 H Respiratory Rate 26 H 26 H 24 Blood Pressure 99/56 L 100/56 L Pulse Oximetry 94 L 94 L 95 12/22/17 15:30 12/22/17 15:45 12/22/17 16:00 Temperature 98.4 F Pulse Rate 95 H 97 H 100 H Respiratory Rate 26 H 25 H 28 H Blood Pressure 99/57 L 96/54 L 101/56 L Pulse Oximetry 94 L 94 L 95 12/22/17 16:15 12/22/17 16:30 12/22/17 16:45 Temperature Pulse Rate 96 H 93 H 93 H Respiratory Rate 25 H 24 25 H Blood Pressure 102/58 L 100/59 L 100/59 L Pulse Oximetry 95 95 95 12/22/17 17:00 12/22/17 17:15 12/22/17 17:30 Temperature Pulse Rate 91 H 92 H 92 H Respiratory Rate 21 25 H 20 Blood Pressure 99/58 L 101/56 L 107/60 Pulse Oximetry 99 95 96 12/22/17 17:45 12/22/17 18:00 12/22/17 18:15 Temperature Pulse Rate 94 H 96 H 98 H Respiratory Rate 25 H 27 H 21 Blood Pressure 110/66 101/56 L 99/54 L Pulse Oximetry 95 94 L 94 L 12/22/17 18:30 12/22/17 18:45 12/22/17 19:00 Temperature Pulse Rate 104 H 108 H 101 H Respiratory Rate 16 27 H 27 H Blood Pressure 115/69 113/70 106/65 Pulse Oximetry 99 95 97 12/22/17 19:15 12/22/17 19:30 12/22/17 19:37 Temperature Pulse Rate 96 H 93 H 101 H Respiratory Rate 27 H 31 H 24 Blood Pressure 110/67 109/65 Pulse Oximetry 93 L 92 L 99 12/22/17 19:45 12/22/17 20:00 12/22/17 20:15 Temperature 98.8 F Pulse Rate 99 H 96 H 94 H Respiratory Rate 29 H 30 H 26 H Blood Pressure 115/69 110/66 106/62 Pulse Oximetry 95 91 L 90 L 12/22/17 20:30 12/22/17 20:45 12/22/17 21:00 Temperature Pulse Rate 93 H 91 H 92 H Respiratory Rate 26 H 24 32 H Blood Pressure 105/61 104/63 105/65 Pulse Oximetry 90 L 90 L 92 L 12/22/17 21:15 12/22/17 21:30 12/22/17 21:45 Temperature Pulse Rate 92 H 89 91 H Respiratory Rate 31 H 25 H 33 H Blood Pressure 104/62 106/67 103/62 Pulse Oximetry 92 L 92 L 93 L 12/22/17 22:00 12/22/17 22:15 12/22/17 22:30 Temperature Pulse Rate 91 H 91 H 92 H Respiratory Rate 25 H 24 27 H Blood Pressure 108/64 112/69 108/62 Pulse Oximetry 94 L 93 L 92 L 12/22/17 22:45 12/22/17 23:00 12/22/17 23:15 Temperature Pulse Rate 94 H 92 H 92 H Respiratory Rate 27 H 24 24 Blood Pressure 111/79 103/60 100/59 L Pulse Oximetry 93 L 89 L 93 L 12/22/17 23:30 12/22/17 23:45 12/23/17 00:00 Temperature 98.4 F Pulse Rate 89 86 87 Respiratory Rate 24 27 H 24 Blood Pressure 105/63 109/67 119/76 Pulse Oximetry 94 L 94 L 92 L 12/23/17 00:15 12/23/17 01:00 12/23/17 01:22 Temperature Pulse Rate 90 91 H 88 Respiratory Rate 24 23 23 Blood Pressure 119/73 109/64 Pulse Oximetry 92 L 98 94 L 12/23/17 01:37 12/23/17 01:40 12/23/17 02:00 Temperature Pulse Rate 87 88 81 Respiratory Rate 25 H 18 17 Blood Pressure 100/60 104/62 Pulse Oximetry 97 93 L 94 L 12/23/17 02:20 12/23/17 02:40 12/23/17 03:00 Temperature Pulse Rate 89 94 H 86 Respiratory Rate 18 12 22 Blood Pressure 99/54 L 94/54 L 116/60 Pulse Oximetry 95 95 97 12/23/17 03:20 12/23/17 03:40 12/23/17 04:00 Temperature 98.1 F Pulse Rate 81 70 66 Respiratory Rate 24 24 24 Blood Pressure 102/63 108/64 106/64 Pulse Oximetry 96 96 97 12/23/17 04:20 12/23/17 04:40 12/23/17 05:00 Temperature Pulse Rate 65 71 94 H Respiratory Rate 24 24 24 Blood Pressure 110/64 106/65 124/71 Pulse Oximetry 96 96 92 L 12/23/17 05:20 12/23/17 05:40 12/23/17 05:54 Temperature Pulse Rate 90 83 76 Respiratory Rate 24 24 24 Blood Pressure 100/62 104/61 Pulse Oximetry 91 L 91 L 93 L 12/23/17 06:00 12/23/17 06:20 12/23/17 06:40 Temperature Pulse Rate 87 97 H 115 H Respiratory Rate 24 22 10 L Blood Pressure 105/62 109/63 113/69 Pulse Oximetry 92 L 93 L 12/23/17 07:00 12/23/17 07:20 12/23/17 07:38 Temperature Pulse Rate 84 90 Respiratory Rate 24 22 24 Blood Pressure 110/61 106/61 Pulse Oximetry 92 L 93 L 92 L 12/23/17 07:40 12/23/17 08:00 12/23/17 08:20 Temperature 99.1 F Pulse Rate 88 91 H 93 H Respiratory Rate 24 24 24 Blood Pressure 105/64 104/58 L 99/57 L Pulse Oximetry 92 L 91 L 92 L 12/23/17 08:40 12/23/17 09:00 12/23/17 09:20 Temperature Pulse Rate 96 H 92 H 90 Respiratory Rate 24 24 24 Blood Pressure 105/62 112/66 105/60 Pulse Oximetry 92 L 92 L 92 L 12/23/17 09:40 12/23/17 10:00 12/23/17 11:00 Temperature Pulse Rate 91 H 92 H 72 Respiratory Rate 24 24 24 Blood Pressure 104/60 100/56 L Pulse Oximetry 94 L 95 12/23/17 12:00 Temperature Pulse Rate 76 Respiratory Rate 24 Blood Pressure Pulse Oximetry 93 L Intake & Output 12/22/17 12/23/17 12/23/17 18:59 06:59 18:59 Intake Total 1495 / 1495 2468 / 2468 1412.5 / 1412.5 Output Total 870 / 870 655 / 655 Balance 625 / 625 1813 / 1813 1412.5 / 1412.5 Weight 96.8 kg Intake: IV 1350 / 1350 1950 / 1950 1412.5 / 1412.5 Versed Inj 50 mg In 50 ml @ 2 50 / 50 150 / 150 50 / 50 MG/HR 2 mls/hr IV.CONT TITRATE PRN Rx#:[id number] KCl Inj 20 MEQ Sodium Chloride 1000 / 1000 23.4% Inj 38.5 MEQ In Sterile Water for Inj 1,000 ML @ 100 mls/hr IV.CONT .[id number] [facility] Rx# :[id number] Sodium Bicarbonate 8.4% Inj 100 1000 / 1000 1000 / 1000 MEQ In D5W Inj 900 ML @ 100 mls/hr IV.CONT .Q10H [facility] Rx#: [id number] Maxipime Inj 2,000 MG In NS Inj 100 / 100 100 / 100 100 ML @ 200 mls/hr IV.SIG Q8H [facility] Rx#:[id number] Mycamine Inj 150 MG In NS Inj 100 / 100 100 ML @ 100 mls/hr IV.SIG Q24H [facility] Rx#:[id number] Vancomycin Inj 1,250 MG In NS 262.5 / 262.5 Inj 250 ML @ 250 mls/hr IV.SIG Q24H [facility] Rx#:[id number] fentaNYL 10 mcg/mL Premix Drip 0 / 0 500 / 500 2,500 mcg In 250 ml @ 50 MCG/HR 5 mls/hr IV.SIG TITRATE PRN Rx #:[id number] Flagyl 500 MG Inj 100 ML @ 100 200 / 200 100 / 100 100 / 100 mls/hr IV.SIG Q6HR [facility] Rx#: [id number] Tube Feeding 145 / 145 318 / 318 Tube Irrigant 200 / 200 Output: Urine Amount (Catheter) 550 / 550 175 / 175 Indwelling Urethral Catheter 550 / 550 Straight 175 / 175 Chest Tube Drainage 320 / 320 480 / 480 #1 Right Upper 30 / 30 30 / 30 #2 Right 140 / 140 360 / 360 #3 Right Upper 150 / 150 90 / 90 Other: Date of Last Bowel Movement 12/22/17 12/23/17 12/23/17 # Bowel Movements 2 # Incontinent Bowel Movements 2 Result Diagrams: 12/23/17 05:10 12/23/17 05:10 Other Results: Laboratory Results - last 24 hr 12/22/17 12/23/17 12/23/17 17:24 01:00 05:08 WBC RBC Hgb Hct MCV MCH MCHC RDW Plt Count MPV Prelim Diff (Auto) Neut % (Auto) Lymph % (Auto) [place] % (Auto) Eos % (Auto) Baso % (Auto) Neut # (Auto) Lymph # (Auto) [place] # (Auto) Eos # (Auto) Baso # (Auto) WBC Differential Seg Neuts % (Manual) Band Neuts % (Manual) Lymphocytes % (Manual) Monocytes % (Manual) Promyelocytes % (Man) Abs Neuts (Manual) Differential Comment Toxic Granulation Toxic Vacuolation Platelet Estimate Platelet Morphology Sodium Potassium Chloride Carbon Dioxide Anion Gap BUN Creatinine Estimated GFR POC Glucose 118 H 136 H 127 H Random Glucose Calcium Prot Corrected Calcium Phosphorus Magnesium Total Protein 12/23/17 12/23/17 12/23/17 05:10 05:10 11:45 WBC 17.8 H RBC 2.31 L Hgb 7.5 L Hct 22.2 L MCV 95.8 MCH 32.3 MCHC 33.7 RDW 15.9 Plt Count 155 MPV 8.0 Prelim Diff (Auto) Slide review pending Neut % (Auto) 94.9 H Lymph % (Auto) 3.2 L [place] % (Auto) 1.4 Eos % (Auto) 0.3 Baso % (Auto) 0.2 Neut # (Auto) 16.9 H Lymph # (Auto) 0.6 L [place] # (Auto) 0.3 Eos # (Auto) 0.1 Baso # (Auto) 0.0 WBC Differential Manual diff final Seg Neuts % (Manual) 80 H Band Neuts % (Manual) 12 H Lymphocytes % (Manual) 1 L Monocytes % (Manual) 5 Promyelocytes % (Man) 2 H Abs Neuts (Manual) 16.7 H Differential Comment . Toxic Granulation 1+ H Toxic Vacuolation Present H Platelet Estimate Normal Platelet Morphology Normal Sodium 148 H Potassium 4.3 Chloride 117 H Carbon Dioxide 23.9 Anion Gap 7 BUN 19 H Creatinine 0.54 Estimated GFR Greater than 89 POC Glucose 130 H Random Glucose 129 H Calcium 6.7 L* Prot Corrected Calcium 8.4 L Phosphorus 2.2 L Magnesium 2.0 Total Protein 4.0 L Imaging: Impressions CXR 12/23 (post central line placement): ETT above neli, RIJ central line with tip overlying SVC, Rt sided chest tubes in place. Chest X-Ray 12/22/17 06:00 CONCLUSION: 1. Decreased chest wall emphysema. No pneumothorax seen. 2. Diffuse bilateral airspace disease without significant change. Objective Remarks: GENERAL: 62-year-old middle-aged female, lying in bed, intubated, sedated, critically ill. HEENT: Normocephalic. Atraumatic. Pupils equal, round, reactive, conjugate. Positive left scleral edema. There is subcu air. Mucous membranes are moist NECK: Trachea is midline. Significant subcu edema CHEST: Equal chest rise. PRVC. 55% FiO2, PEEP +5. 3 right-sided chest tubes, one with 3 + air leak. Significant bilateral subcutaneous edema CARDIOVASCULAR: S1S2 regular ABDOMEN: Soft, nontender, nondistended. No guarding. MUSCULOSKELETAL: Pulses 2+. Trace bilateral lower extremity peripheral edema. NEUROLOGICAL: RASS -3. Withdraws to pain x4. Does not follow commands. Assessment and Plan - Assessment and Plan Plan: Neuro/Psych: Acute metabolic encephalopathy Possible seizure disorder Currently on midazolam/fentany/ propofoll drips for sedation/analgesia while intubated Frequent neurochecks goal RASS -2 She was started on anticonvulsants and her initial admission 11/23. Valproic acid 500 mg 3 times daily. Check level was 40 12/[address] 12/17- for acute disease EEG - Diffuse slowing consistent with a moderate diffuse encephalopathy. No epileptiform activity Acetaminophen 650 by tube every 6 hours as needed fever Continue quetiapine 25 mg daily/home medication Holding tizanidine 4 mg daily Respiratory: Acute hypoxic and hypercarbic respiratory failure Acute severe bilateral multifocal healthcare associated pneumonia Possible aspiration pneumonia Spontaneous right-sided tension pneumothorax Subcutaneous Emphysema Status post emergent chest tube 12/17 and second emergent chest tube 12/17: To - 40 cmH2O suction. Third chest tube placed 12/[address] surgery/Dr. Lynn following A.m. chest x-ray revealed significant subcu emphysema. Improved pneumothorax CT thorax overnight 12/12 revealed significant 3.7 cm moderate right pneumothorax without tension. Pneumopericardium and significant subcutaneous emphysema. Vent bundle PRVC ventilation 24/500/0.85/PEEP decreased from +8 to +5/50 Epoprostenol aerosolized added 12/19 Head of bed elevated Albuterol/ipratropium aerosols every 4 hours with albuterol aerosols every 2 hours as needed dyspnea Wean FiO2 for goal SPO2 greater than 90% Follow-up ABGs Cardiovascular: Septic shock Elevated troponin Type II NSTEMI secondary to demand ischemia Hyperlipidemia Holding lisinopril 30 mg daily/home medication. Resume pravastatin 80 mg daily when clinically indicated Currently on vasopressin drip for goal map greater than 65 stress dose hydrocortisone 100 mg IV every 8 hours added Trend troponins. Will not anticoagulate. Unlikely to be ACS. Renal: Acute kidney injury Secondary to shock, off pressors continue Read Frequent urine output monitoring Daily creatinine Additional IV fluids and maintenance fluids -- Strict I/Os FEN/GI: Acute protein calorie malnutritionmoderate Lactic acidosis Severe colitis Enterovirus colitis C. difficile colitis Hyperammonemia Acute hypophosphatemia Acute hypernatremia Currently on lactulose 30 cc twice daily \Recheck ammonia level in a.m. 12/22 Maintenance IV fluids have been discontinued Place orogastric tube to low intermittent wall suction Start tube feeding with vital 1.5 goal 55 cc now. Trickle feeds today and start him metoclopramide 1 mg 3 times daily ICU electrolyte protocol Daily BMP, magnesium, phosphorus Trend lactates Lactulose/polythene glycol twice daily Holding dicyclomine 20 mg 3 times daily On one quarter normal saline with 10 mg KCl 50 cc an hour - change to D5W with 2 amps of bicarb on 12/22 Heme/ID: C. difficile colitis Enterovirus colitis Septic shock Healthcare associated multifocal pneumonia Possible gram-positive cocci bacteremia Early empyema Vancomycin IV/p.o. with pharmacy dosing Cefepime, metronidazole, azithromycin and micafungin Bronchoscopy 12/19 with gram-negative rods Pleural fluid 12/19 with gram-negative rods Pleural fluid 12/17 -g Karla albicans/glabrata Klebsiella, gram-positive rods 12/17 -sputum -Klebsiella 12/17 blood-strep viridians/coag negative staph Infectious disease consultation Endocrine: Acute hypoglycemia- resolving. Sliding scale insulin Accu-Cheks every 6 hours to maintain euglycemia Prophylaxis: GI Prophylaxis Famotidine DVT Prophylaxis -- SCDs Subcu heparin Lines: 12/23: RIJ central line placed 12/23 12/17 femoral triple-lumen catheter ordered to discontinue 12/23 12/17 right radial arterial line discontinued 12/21 12/17 right 28 Bengali chest tube to -40 cm suction 12/17 right 32 Bengali chest tube to -40 cm suction 12/17 -right #32 Bengali chest tube to -40 cm suction 12/17 Read Critical care time 40 minutes excluding procedures
--- NOTE | 2017-12-23 14:35 | XR ---
EXAM DATE: 12/23/2017 2:29 PM EDT AGE/SEX: 62 years / Female INDICATIONS: Central line placement. CLINICAL DATA: This is the patient's initial encounter. Patient reports that signs and symptoms have been present for 1 week and indicates a pain score of Nonresponsive. MEDICAL/SURGICAL HISTORY: Non-responsive. Non-responsive. COMPARISON: C, CHEST 1V SINGLE AP, 12/22/2017. . FINDINGS: A single AP semierect expiratory portable view of the chest was obtained. This demonstrates interval placement of right internal jugular central venous line with the tip projected over the superior vena cava. There is no pneumothorax. The endotracheal tube remains in place with the tip 3 cm above the c [place]. The nasogastric tube remains in place. There are 3 right-sided chest tubes again noted. Subcut aneous emphysema is noted over both sides of the chest wall. This is mildly improved in appearance. D iffuse patchy opacity remains in both lungs. There is more consolidative opacity at the right lung ba se. The right costophrenic angle remains blunted. The heart size is mildly enlarged. There is mild vo lume loss with mediastinal shift to the right. CONCLUSION: 1. Interval placement of right internal jugular central venous line with no pneumothorax. 2. 3 right-sided chest tubes remain in place. 3. Interval improvement in subcutaneous emphysema. 4. The right costophrenic angle with consolidative opacity in the right lung base. Electronically signed by: Evert Gomez MD 12/23/2017 2:34 PM EDT
--- NOTE | 2017-12-23 15:37 | P.PNPAL ---
Reason for Visit Reason for visit: a. To assist with evaluation and management of symptoms including: pain. b. To assist medical decision maker(s) with: better understanding of current medical conditions; weighing benefits/burdens of medical treatment options; making medical treatment decisions. Subjective Subjective/Interval History: Patient seen in medical ICU, remains intubated on mechanical ventilation. Sedated, unresponsive to verbal or tactile stimuli but appears comfortable. Luis at bedside. Central line replaced today, no acute events overnight. Remains with x3 chest tubes, CT surgery following. Not a surgical candidate at this time given condition. FiO2 requirement increasing, currently 75%. with a good understanding of patient's critical condition and guarded prognosis. Patient's daughter Margarita to come tomorrow from [place]. Goal remains unchanged, allow a few more days for clinical improvement. Ongoing emotional support and active listening provided. Spiritual services offered and accepted. Case reviewed with Dr. Vera. Advance Directives Living Will: Never completed Health Care Surrogate: Never completed Durable Power of Acoustical Installer: Never completed Health Care Surrogate Name and Number: HCP Luis Woodruff Objective Vital Signs: Vital Signs 12/22/17 15:30 12/22/17 15:45 12/22/17 16:00 Temperature 98.4 F Pulse Rate 95 H 97 H 100 H Respiratory Rate 26 H 25 H 28 H Blood Pressure 99/57 L 96/54 L 101/56 L Pulse Oximetry 94 L 94 L 95 12/22/17 16:15 12/22/17 16:30 12/22/17 16:45 Temperature Pulse Rate 96 H 93 H 93 H Respiratory Rate 25 H 24 25 H Blood Pressure 102/58 L 100/59 L 100/59 L Pulse Oximetry 95 95 95 12/22/17 17:00 12/22/17 17:15 12/22/17 17:30 Temperature Pulse Rate 91 H 92 H 92 H Respiratory Rate 21 25 H 20 Blood Pressure 99/58 L 101/56 L 107/60 Pulse Oximetry 99 95 96 12/22/17 17:45 18 18:00 12/22/17 18:15 Temperature Pulse Rate 94 H 96 H 98 H Respiratory Rate 25 H 27 H 21 Blood Pressure 110/66 101/56 L 99/54 L Pulse Oximetry 95 94 L 94 L 12/22/17 18:30 12/22/17 18:45 12/22/17 19:00 Temperature Pulse Rate 104 H 108 H 101 H Respiratory Rate 16 27 H 27 H Blood Pressure 115/69 113/70 106/65 Pulse Oximetry 99 95 97 12/22/17 19:15 12/22/17 19:30 12/22/17 19:37 Temperature Pulse Rate 96 H 93 H 101 H Respiratory Rate 27 H 31 H 24 Blood Pressure 110/67 109/65 Pulse Oximetry 93 L 92 L 99 12/22/17 19:45 12/22/17 20:00 12/22/17 20:15 Temperature 98.8 F Pulse Rate 99 H 96 H 94 H Respiratory Rate 29 H 30 H 26 H Blood Pressure 115/69 110/66 106/62 Pulse Oximetry 95 91 L 90 L 12/22/17 20:30 12/22/17 20:45 12/22/17 21:00 Temperature Pulse Rate 93 H 91 H 92 H Respiratory Rate 26 H 24 32 H Blood Pressure 105/61 104/63 105/65 Pulse Oximetry 90 L 90 L 92 L 12/22/17 21:15 12/22/17 21:30 12/22/17 21:45 Temperature Pulse Rate 92 H 89 91 H Respiratory Rate 31 H 25 H 33 H Blood Pressure 104/62 106/67 103/62 Pulse Oximetry 92 L 92 L 93 L 12/22/17 22:00 12/22/17 22:15 12/22/17 22:30 Temperature Pulse Rate 91 H 91 H 92 H Respiratory Rate 25 H 24 27 H Blood Pressure 108/64 112/69 108/62 Pulse Oximetry 94 L 93 L 92 L 12/22/17 22:45 12/22/17 23:00 12/22/17 23:15 Temperature Pulse Rate 94 H 92 H 92 H Respiratory Rate 27 H 24 24 Blood Pressure 111/79 103/60 100/59 L Pulse Oximetry 93 L 89 L 93 L 12/22/17 23:30 12/22/17 23:45 12/23/17 00:00 Temperature 98.4 F Pulse Rate 89 86 87 Respiratory Rate 24 27 H 24 Blood Pressure 105/63 109/67 119/76 Pulse Oximetry 94 L 94 L 92 L 12/23/17 00:15 12/23/17 01:00 12/23/17 01:22 Temperature Pulse Rate 90 91 H 88 Respiratory Rate 24 23 23 Blood Pressure 119/73 109/64 Pulse Oximetry 92 L 98 94 L 12/23/17 01:37 12/23/17 01:40 12/23/17 02:00 Temperature Pulse Rate 87 88 81 Respiratory Rate 25 H 18 17 Blood Pressure 100/60 104/62 Pulse Oximetry 97 93 L 94 L 12/23/17 02:20 12/23/17 02:40 12/23/17 03:00 Temperature Pulse Rate 89 94 H 86 Respiratory Rate 18 12 22 Blood Pressure 99/54 L 94/54 L 116/60 Pulse Oximetry 95 95 97 12/23/17 03:20 12/23/17 03:40 12/23/17 04:00 Temperature 98.1 F Pulse Rate 81 70 66 Respiratory Rate 24 24 24 Blood Pressure 102/63 108/64 106/64 Pulse Oximetry 96 96 97 12/23/17 04:20 12/23/17 04:40 12/23/17 05:00 Temperature Pulse Rate 65 71 94 H Respiratory Rate 24 24 24 Blood Pressure 110/64 106/65 124/71 Pulse Oximetry 96 96 92 L 12/23/17 05:20 12/23/17 05:40 12/23/17 05:54 Temperature Pulse Rate 90 83 76 Respiratory Rate 24 24 24 Blood Pressure 100/62 104/61 Pulse Oximetry 91 L 91 L 93 L 12/23/17 06:00 12/23/17 06:20 12/23/17 06:40 Temperature Pulse Rate 87 97 H 115 H Respiratory Rate 24 22 10 L Blood Pressure 105/62 109/63 113/69 Pulse Oximetry 92 L 93 L 12/23/17 07:00 12/23/17 07:20 12/23/17 07:38 Temperature Pulse Rate 84 90 Respiratory Rate 24 22 24 Blood Pressure 110/61 106/61 Pulse Oximetry 92 L 93 L 92 L 12/23/17 07:40 12/23/17 08:00 12/23/17 08:20 Temperature 99.1 F Pulse Rate 88 91 H 93 H Respiratory Rate 24 24 24 Blood Pressure 105/64 104/58 L 99/57 L Pulse Oximetry 92 L 91 L 92 L 12/23/17 08:40 12/23/17 09:00 12/23/17 09:20 Temperature Pulse Rate 96 H 92 H 90 Respiratory Rate 24 24 24 Blood Pressure 105/62 112/66 105/60 Pulse Oximetry 92 L 92 L 92 L 12/23/17 09:40 12/23/17 10:00 12/23/17 11:00 Temperature Pulse Rate 91 H 92 H 72 Respiratory Rate 24 24 24 Blood Pressure 104/60 100/56 L Pulse Oximetry 94 L 95 12/23/17 12:00 Temperature Pulse Rate 76 Respiratory Rate 24 Blood Pressure Pulse Oximetry 93 L Intake & Output 12/22/17 12/23/17 12/23/17 18:59 06:59 18:59 Intake Total 1495 / 1495 2468 / 2468 1512.5 / 1512.5 Output Total 870 / 870 655 / 655 Balance 625 / 625 1813 / 1813 1512.5 / 1512.5 Weight 96.8 kg Intake: IV 1350 / 1350 1950 / 1950 1512.5 / 1512.5 Versed Inj 50 mg In 50 ml @ 2 50 / 50 150 / 150 50 / 50 MG/HR 2 mls/hr IV.CONT TITRATE PRN Rx#:[id number] KCl Inj 20 MEQ Sodium Chloride 1000 / 1000 23.4% Inj 38.5 MEQ In Sterile Water for Inj 1,000 ML @ 100 mls/hr IV.CONT .[id number] [facility] Rx# :[id number] Sodium Bicarbonate 8.4% Inj 100 1000 / 1000 1000 / 1000 MEQ In D5W Inj 900 ML @ 100 mls/hr IV.CONT .Q10H [facility] Rx#: [id number] Maxipime Inj 2,000 MG In NS Inj 100 / 100 100 / 100 100 / 100 100 ML @ 200 mls/hr IV.SIG Q8H [facility] Rx#:[id number] Mycamine Inj 150 MG In NS Inj 100 / 100 100 ML @ 100 mls/hr IV.SIG Q24H [facility] Rx#:[id number] Vancomycin Inj 1,250 MG In NS 262.5 / 262.5 Inj 250 ML @ 250 mls/hr IV.SIG Q24H [facility] Rx#:[id number] fentaNYL 10 mcg/mL Premix Drip 0 / 0 500 / 500 2,500 mcg In 250 ml @ 50 MCG/HR 5 mls/hr IV.SIG TITRATE PRN Rx #:[id number] Flagyl 500 MG Inj 100 ML @ 100 200 / 200 100 / 100 100 / 100 mls/hr IV.SIG Q6HR [facility] Rx#: [id number] Tube Feeding 145 / 145 318 / 318 Tube Irrigant 200 / 200 Output: Urine Amount (Catheter) 550 / 550 175 / 175 Indwelling Urethral Catheter 550 / 550 Straight 175 / 175 Chest Tube Drainage 320 / 320 480 / 480 #1 Right Upper 30 / 30 30 / 30 #2 Right 140 / 140 360 / 360 #3 Right Upper 150 / 150 90 / 90 Other: Date of Last Bowel Movement 12/22/17 12/23/17 12/23/17 # Bowel Movements 2 # Incontinent Bowel Movements 2 Physical Exam: CONSTITUTIONAL/GENERAL: Obese female intubated on mechanical ventilation resting in bed in no apparent distress. TUBES/LINES/DRAINS: ETT, OG, right IJ triple lumen. SKIN: No jaundice, rashes, or lesions. Ecchymoses on upper extremities. No wounds seen anteriorly. Skin temperature appropriate. Not diaphoretic. HEAD: Atraumatic. Normocephalic. EYES: Pupils equal and round and reactive. No scleral icterus. No injection or drainage. Fundi not examined. ENT: Unable to evaluate hearing, sedated. Nose without bleeding or purulent drainage. Moist oral mucosa. ETT, OG in place. NECK: Trachea midline. Supple, nontender. CARDIOVASCULAR: Regular rate and rhythm without murmurs, gallops, or rubs. No JVD. Peripheral pulses symmetric. RESPIRATORY/CHEST: Symmetric, unlabored respirations. Rhonchi bilaterally, right more than left. Chest tube x 3 to right with + air leak. GASTROINTESTINAL: Abdomen soft, obese, nondistended. Bowel sounds present. GENITOURINARY: Without palpable bladder distension. Read catheter in place. MUSCULOSKELETAL: Extremities without clubbing, cyanosis. Edema to bilateral upper extremities. No mottling or clubbing. NEUROLOGICAL: Sedated. Unresponsive to verbal or tactile stimuli. PSYCHIATRIC: Unable to evaluate, sedated. Diagnostic Tests Laboratory: Laboratory Results - last 72 hr 12/20/17 12/20/17 12/20/17 17:32 17:53 23:18 WBC RBC Hgb Hct MCV MCH MCHC RDW Plt Count MPV Prelim Diff (Auto) Neut % (Auto) Lymph % (Auto) [place] % (Auto) Eos % (Auto) Baso % (Auto) Neut # (Auto) Lymph # (Auto) [place] # (Auto) Eos # (Auto) Baso # (Auto) WBC Differential Seg Neuts % (Manual) Band Neuts % (Manual) Lymphocytes % (Manual) Monocytes % (Manual) Metamyelocytes % (Man) Myelocytes % (Man) Promyelocytes % (Man) Abs Neuts (Manual) Nucleated RBCs/100 WBC Differential Comment Toxic Granulation Toxic Vacuolation Dohle Bodies Platelet Estimate Platelet Morphology PT INR APTT Puncture Site Patient Temperature O2 Saturation ABG pH ABG pCO2 ABG pO2 ABG HCO3 ABG O2 Content ABG Base Excess ABG Methemoglobin Pedro Pablo Test Hemoglobin Carboxyhemoglobin O2 Delivery Device Vent Setting Inspired O2 Critical Value Sodium 148 H Potassium 3.4 L Chloride 118 H Carbon Dioxide 20.1 L Anion Gap 10 BUN 22 H Creatinine 0.54 Estimated GFR Greater than 89 POC Glucose 126 H 142 H Random Glucose 124 H Calcium 7.0 L* Prot Corrected Calcium 8.7 Phosphorus 1.8 L Magnesium 2.4 D Total Bilirubin AST ALT Alkaline Phosphatase Ammonia Total Creatine Kinase Troponin I Total Protein 4.1 L Albumin 12/21/17 12/21/17 12/21/17 04:40 04:40 09:58 WBC 14.9 H RBC 2.35 L Hgb 7.6 L Hct 22.4 L MCV 95.7 MCH 32.5 MCHC 34.0 RDW 15.6 Plt Count 191 MPV 9.3 Prelim Diff (Auto) Slide review pending Neut % (Auto) 92.3 H Lymph % (Auto) 3.1 L [place] % (Auto) 4.4 Eos % (Auto) 0.0 Baso % (Auto) 0.2 Neut # (Auto) 13.7 H Lymph # (Auto) 0.5 L [place] # (Auto) 0.6 Eos # (Auto) 0.0 Baso # (Auto) 0.0 WBC Differential Manual diff final Seg Neuts % (Manual) 80 H Band Neuts % (Manual) 16 H Lymphocytes % (Manual) 1 L Monocytes % (Manual) 3 Metamyelocytes % (Man) Myelocytes % (Man) Promyelocytes % (Man) Abs Neuts (Manual) 14.3 H Nucleated RBCs/100 WBC 1 H Differential Comment . Toxic Granulation 1+ H Toxic Vacuolation Dohle Bodies Present H Platelet Estimate Normal Platelet Morphology Normal PT INR APTT Puncture Site Patient Temperature O2 Saturation ABG pH ABG pCO2 ABG pO2 ABG HCO3 ABG O2 Content ABG Base Excess ABG Methemoglobin Pedro Pablo Test Hemoglobin Carboxyhemoglobin O2 Delivery Device Vent Setting Inspired O2 Critical Value Sodium 146 H Potassium 3.5 Chloride 116 H Carbon Dioxide 19.7 L Anion Gap 10 BUN 23 H Creatinine 0.52 Estimated GFR Greater than 89 POC Glucose 112 H Random Glucose 126 H Calcium 6.7 L* Prot Corrected Calcium 8.2 L Phosphorus 1.4 L Magnesium 2.1 Total Bilirubin AST ALT Alkaline Phosphatase Ammonia Total Creatine Kinase Troponin I Total Protein 4.3 L Albumin 12/21/17 12/21/17 12/21/17 10:43 12:13 18:11 WBC RBC Hgb Hct MCV MCH MCHC RDW Plt Count MPV Prelim Diff (Auto) Neut % (Auto) Lymph % (Auto) [place] % (Auto) Eos % (Auto) Baso % (Auto) Neut # (Auto) Lymph # (Auto) [place] # (Auto) Eos # (Auto) Baso # (Auto) WBC Differential Seg Neuts % (Manual) Band Neuts % (Manual) Lymphocytes % (Manual) Monocytes % (Manual) Metamyelocytes % (Man) Myelocytes % (Man) Promyelocytes % (Man) Abs Neuts (Manual) Nucleated RBCs/100 WBC Differential Comment Toxic Granulation Toxic Vacuolation Dohle Bodies Platelet Estimate Platelet Morphology PT INR APTT Puncture Site Art line Patient Temperature 98.6 O2 Saturation 88 L* ABG pH 7.33 L ABG pCO2 35 L ABG pO2 61 ABG HCO3 18 L ABG O2 Content 9.4 L ABG Base Excess -6.8 L ABG Methemoglobin 1.8 Pedro Pablo Test Present Hemoglobin 7.5 L* Carboxyhemoglobin 0.9 O2 Delivery Device Ventilator Vent Setting Prvc/ac Inspired O2 55 Critical Value Yes Sodium Potassium Chloride Carbon Dioxide Anion Gap BUN Creatinine Estimated GFR POC Glucose 129 H 102 Random Glucose Calcium Prot Corrected Calcium Phosphorus Magnesium Total Bilirubin AST ALT Alkaline Phosphatase Ammonia Total Creatine Kinase Troponin I Total Protein Albumin 12/22/17 12/22/17 12/22/17 00:24 05:51 06:21 WBC RBC Hgb Hct MCV MCH MCHC RDW Plt Count MPV Prelim Diff (Auto) Neut % (Auto) Lymph % (Auto) [place] % (Auto) Eos % (Auto) Baso % (Auto) Neut # (Auto) Lymph # (Auto) [place] # (Auto) Eos # (Auto) Baso # (Auto) WBC Differential Seg Neuts % (Manual) Band Neuts % (Manual) Lymphocytes % (Manual) Monocytes % (Manual) Metamyelocytes % (Man) Myelocytes % (Man) Promyelocytes % (Man) Abs Neuts (Manual) Nucleated RBCs/100 WBC Differential Comment Toxic Granulation Toxic Vacuolation Dohle Bodies Platelet Estimate Platelet Morphology PT INR APTT Puncture Site Patient Temperature O2 Saturation ABG pH ABG pCO2 ABG pO2 ABG HCO3 ABG O2 Content ABG Base Excess ABG Methemoglobin Pedro Pablo Test Hemoglobin Carboxyhemoglobin O2 Delivery Device Vent Setting Inspired O2 Critical Value Sodium 150 H Potassium 4.2 Chloride 120 H Carbon Dioxide 21.8 Anion Gap 8 BUN 19 H Creatinine 0.49 L Estimated GFR Greater than 89 POC Glucose 88 98 Random Glucose 100 Calcium 6.6 L* Prot Corrected Calcium 8.4 L Phosphorus 1.8 L Magnesium 1.9 Total Bilirubin 0.2 AST 16 ALT 8 L Alkaline Phosphatase 67 Ammonia Total Creatine Kinase 93 Troponin I 0.02 D Total Protein 3.8 L Albumin 1.2 L 12/22/17 12/22/17 12/22/17 06:21 10:14 11:59 WBC RBC Hgb Hct MCV MCH MCHC RDW Plt Count MPV Prelim Diff (Auto) Neut % (Auto) Lymph % (Auto) [place] % (Auto) Eos % (Auto) Baso % (Auto) Neut # (Auto) Lymph # (Auto) [place] # (Auto) Eos # (Auto) Baso # (Auto) WBC Differential Seg Neuts % (Manual) Band Neuts % (Manual) Lymphocytes % (Manual) Monocytes % (Manual) Metamyelocytes % (Man) Myelocytes % (Man) Promyelocytes % (Man) Abs Neuts (Manual) Nucleated RBCs/100 WBC Differential Comment Toxic Granulation Toxic Vacuolation Dohle Bodies Platelet Estimate Platelet Morphology PT INR APTT Puncture Site Right radial Patient Temperature 98.6 O2 Saturation 92 ABG pH 7.35 L ABG pCO2 36 L ABG pO2 73 ABG HCO3 19 L ABG O2 Content 13.7 ABG Base Excess -5.5 L ABG Methemoglobin 1.7 Pedro Pablo Test Present Hemoglobin 10.6 L Carboxyhemoglobin 0.8 O2 Delivery Device Ventilator Vent Setting Prvc ac Inspired O2 50 Critical Value No Sodium Potassium Chloride Carbon Dioxide Anion Gap BUN Creatinine Estimated GFR POC Glucose 109 Random Glucose Calcium Prot Corrected Calcium Phosphorus Magnesium Total Bilirubin AST ALT Alkaline Phosphatase Ammonia 19 Total Creatine Kinase Troponin I Total Protein Albumin 12/22/17 12/22/17 12/22/17 12:14 12:14 17:24 WBC 12.6 H RBC 2.24 L Hgb 7.1 L Hct 21.3 L MCV 95.1 MCH 31.8 MCHC 33.4 RDW 15.7 Plt Count 121 L D MPV 8.8 Prelim Diff (Auto) Slide review pending Neut % (Auto) 92.4 H Lymph % (Auto) 3.3 L [place] % (Auto) 4.1 Eos % (Auto) 0.0 Baso % (Auto) 0.2 Neut # (Auto) 11.6 H Lymph # (Auto) 0.4 L [place] # (Auto) 0.5 Eos # (Auto) 0.0 Baso # (Auto) 0.0 WBC Differential Manual diff final Seg Neuts % (Manual) 66 Band Neuts % (Manual) 24 H Lymphocytes % (Manual) 3 L Monocytes % (Manual) 5 Metamyelocytes % (Man) 1 Myelocytes % (Man) 1 H Promyelocytes % (Man) Abs Neuts (Manual) 11.6 H Nucleated RBCs/100 WBC Differential Comment . Toxic Granulation 2+ H Toxic Vacuolation Dohle Bodies Platelet Estimate Low L Platelet Morphology Normal PT 14.3 H INR 1.4 APTT 32.9 H Puncture Site Patient Temperature O2 Saturation ABG pH ABG pCO2 ABG pO2 ABG HCO3 ABG O2 Content ABG Base Excess ABG Methemoglobin Pedro Pablo Test Hemoglobin Carboxyhemoglobin O2 Delivery Device Vent Setting Inspired O2 Critical Value Sodium Potassium Chloride Carbon Dioxide Anion Gap BUN Creatinine Estimated GFR POC Glucose 118 H Random Glucose Calcium Prot Corrected Calcium Phosphorus Magnesium Total Bilirubin AST ALT Alkaline Phosphatase Ammonia Total Creatine Kinase Troponin I Total Protein Albumin 12/23/17 12/23/17 12/23/17 01:00 05:08 05:10 WBC 17.8 H RBC 2.31 L Hgb 7.5 L Hct 22.2 L MCV 95.8 MCH 32.3 MCHC 33.7 RDW 15.9 Plt Count 155 MPV 8.0 Prelim Diff (Auto) Slide review pending Neut % (Auto) 94.9 H Lymph % (Auto) 3.2 L [place] % (Auto) 1.4 Eos % (Auto) 0.3 Baso % (Auto) 0.2 Neut # (Auto) 16.9 H Lymph # (Auto) 0.6 L [place] # (Auto) 0.3 Eos # (Auto) 0.1 Baso # (Auto) 0.0 WBC Differential Manual diff final Seg Neuts % (Manual) 80 H Band Neuts % (Manual) 12 H Lymphocytes % (Manual) 1 L Monocytes % (Manual) 5 Metamyelocytes % (Man) Myelocytes % (Man) Promyelocytes % (Man) 2 H Abs Neuts (Manual) 16.7 H Nucleated RBCs/100 WBC Differential Comment . Toxic Granulation 1+ H Toxic Vacuolation Present H Dohle Bodies Platelet Estimate Normal Platelet Morphology Normal PT INR APTT Puncture Site Patient Temperature O2 Saturation ABG pH ABG pCO2 ABG pO2 ABG HCO3 ABG O2 Content ABG Base Excess ABG Methemoglobin Pedro [place] Test Hemoglobin Carboxyhemoglobin O2 Delivery Device Vent Setting Inspired O2 Critical Value Sodium Potassium Chloride Carbon Dioxide Anion Gap BUN Creatinine Estimated GFR POC Glucose 136 H 127 H Random Glucose Calcium Prot Corrected Calcium Phosphorus Magnesium Total Bilirubin AST ALT Alkaline Phosphatase Ammonia Total Creatine Kinase Troponin I Total Protein Albumin 12/23/17 12/23/17 05:10 11:45 WBC RBC Hgb Hct MCV MCH MCHC RDW Plt Count MPV Prelim Diff (Auto) Neut % (Auto) Lymph % (Auto) [place] % (Auto) Eos % (Auto) Baso % (Auto) Neut # (Auto) Lymph # (Auto) [place] # (Auto) Eos # (Auto) Baso # (Auto) WBC Differential Seg Neuts % (Manual) Band Neuts % (Manual) Lymphocytes % (Manual) Monocytes % (Manual) Metamyelocytes % (Man) Myelocytes % (Man) Promyelocytes % (Man) Abs Neuts (Manual) Nucleated RBCs/100 WBC Differential Comment Toxic Granulation Toxic Vacuolation Dohle Bodies Platelet Estimate Platelet Morphology PT INR APTT Puncture Site Patient Temperature O2 Saturation ABG pH ABG pCO2 ABG pO2 ABG HCO3 ABG O2 Content ABG Base Excess ABG Methemoglobin Pedro Pablo Test Hemoglobin Carboxyhemoglobin O2 Delivery Device Vent Setting Inspired O2 Critical Value Sodium 148 H Potassium 4.3 Chloride 117 H Carbon Dioxide 23.9 Anion Gap 7 BUN 19 H Creatinine 0.54 Estimated GFR Greater than 89 POC Glucose 130 H Random Glucose 129 H Calcium 6.7 L* Prot Corrected Calcium 8.4 L Phosphorus 2.2 L Magnesium 2.0 Total Bilirubin AST ALT Alkaline Phosphatase Ammonia Total Creatine Kinase Troponin I Total Protein 4.0 L Albumin Result Diagrams: 12/23/17 05:10 12/23/17 05:10 Microbiology: Microbiology 12/17/17 08:24 Aerobic Blood Culture - Final Blood - Peripheral No growth in 5 days Anaerobic Blood Culture - Final No growth in 5 days 12/17/17 08:10 Aerobic Blood Culture - Final Blood - Peripheral No growth in 5 days Anaerobic Blood Culture - Final Staphylococcus coag negative Viridans streptococcus grp 12/19/17 11:30 Gram Stain - Final Bronchial - Bronchial Bronchial Culture - Final Klebsiella pneumoniae 12/19/17 11:30 Acid Fast Bacilli Smear - Final Bronchial Washings - Bronchial No acid fast bacilli seen 12/19/17 00:56 Gram Stain - Final Fluid - Pleural fluid Body Fluid Culture - Preliminary Karla glabrata gram positive rods 12/19/17 00:30 Gram Stain - Final Fluid - Pleural fluid Body Fluid Culture - Preliminary Klebsiella pneumoniae Karla albicans Karla glabrata gram positive rods 12/17/17 15:55 Gram Stain - Final Fluid - Pleural fluid Body Fluid Culture - Preliminary gram positive rods Karla glabrata Klebsiella pneumoniae Procedures: 12/17/2017: Endotracheal intubation 12/17/2017: OGT placement 12/17/2017: Femoral central line placement 12/17/2017: Right-sided chest tube placement x 2 12/17/2017: Right radial arterial line placement 12/17/2017: Read catheter placement 12/21/2017:Right-sided chest tube placed #3 12/23/2017: Right IJ triple lumen Assessment and Plan - Disease Oriented Problem List (1) Respiratory failure (2) Pneumonia (3) Septic shock - Symptom Scale (1) Pain 0-10 Scale: Unable to quantify Comment: History of chronic pain to back. Acute pain secondary to invasive interventions, bedbound due to critical illness. (2) Shortness of breath 0-10 Scale: Unable to quantify Comment: Currently intubated on mechanical ventilation. Pertinent Non-Medical Issues: Psychosocial: Patient was born and raised in [place], [place]. She has been to her , Luis, for approximately 20 years. She has 1 daughter, Margarita. She is a retired teacher. Spiritual: Orthodox bryson Legal: No advance directives completed. Ethical issues impacting care: No ethical issues identified. Important Contacts: Luis Woodruff, : [phone] Prognosis: Mrs. Woodruff is a 62-year-old female with multiple comorbidities and recent acute hospitalizations. Patient currently requiring mechanical ventilation, being treated for septic shock and bilateral aspiration pneumonias. Currently status post 3 chest tubes secondary to worsening emphysema. Has been evaluated by cardiothoracic surgery, poor surgical candidate at this time. Overall prognosis is guarded. Patient at a very high risk for further complications, continue decline and . Code Status: Full Code Plan: * CODE STATUS: Full code. * MEDICAL DECISION-MAKER: Patient unable to participate in medical decision making given clinical condition -intubated, sedated. No advance directives completed. As per [place] statute, healthcare proxy decision-maker falls to patient's Luis Woodruff. He has accepted this role and is fully supported by their family. * GOALS OF CARE: As per , goal is to allow a few more days for clinical improvement, reevaluate patient's condition. reports that no advanced directives have been completed; however, treatment/end-of-life conversations has previously taken place. reports that patient has verbalized in the past not wishing her life to be prolonged "with machines". hopeful of patient's recovery but verbalized awareness of patient's critical condition. * SYMPTOMS: = Pain: Acute on chronic. Patient with history of chronic back pain status post multiple surgical interventions/appliances in place. Following with pain doctor in [facility]. Currently on fentanyl drip, appears comfortable at the time of my visit. * Spiritual services following. * Ongoing emotional support and active listening provided. * Palliative care to continue to follow-up for emotional support and goals of care patient's clinical course continues to evolve. receptive to palliative care follow-ups. Time Spent Total Floor Time (mins): 22 (Total time to include review of medical records, physical exam, goals of care conversation with patient's , case discussion with educational institution curator.) >50% Time in Counseling or Coordination of Care: Yes (Total visit time = 22 minutes; > 50% spent counseling/coordinating care) Attestation Attestation: To help prompt me to consider important information that might be impacting today's encounter and assessment, information from prior notes written by myself or my colleagues may have been "brought forward" into today's note. My signature on this note, however, is an attestation that I personally performed the exam, history, and/or decision-making noted today, and, unless otherwise indicated, the interactions with patient, family, and staff as well as the review of records all occurred today. I also attest that the listed assessment and stated plan reflect my best clinical judgment today based on the combination of historical information, prior notes, and today's exam/ interactions. When time spent is documented, it refers only to time spent today by the signer, or if indicated, combined time spent today by collaborating physician/nurse practitioner.
[2017-12-23] MEDS: Micafungin Inj 150 MG in Sodium Chlor 0.9% Inj 100 ML IV.SIG SCH (16:24)
[2017-12-23] MEDS: Potassium Phosphate 500 MG Soluble Tablet PO PRN ×2 (16:26→18:23)
--- NOTE | 2017-12-23 17:22 | P.PCN ---
Date of procedure: 12/23/17 Pre-op diagnosis: Acute respiratory failure, sepsis, empyema, pneumonia, pneumothorax Post-op diagnosis: same Procedure: PROCEDURE PERFORMED Right internal jugular vein central venous catheter placement under ultrasound guidance. INFORMED CONSENT Informed consent obtained from family and documented on chart. ANESTHESIA 1% Lidocaine for local infiltration anesthesia. PROCEDURE After sterile prepping and draping using 1% lidocaine for local infiltration anesthesia, the right internal jugular vein was visualized using an ultrasound vessel finder and under direct visualization was cannulated using an introducer needle with dark non-pulsatile blood return. An introducer needle was advanced into the internal jugular vein without any resistance. Blood return was confirmed through the needle following which a guidewire was passed through the needle into the right internal jugular vein without any resistance and the needle was then removed. After making a skin marina and dilation of tract, a 20 cm antimicrobial coated triple lumen catheter was passed over the guidewire by modified Seldinger technique into the right internal jugular vein up to the 18 cm misael and the guidewire was then removed. Good blood return obtained through all three ports which were then flushed and capped. After securing the catheter in place with a statlock, a Bio-occlusive dressing with Biopatch was applied to the site. The patient tolerated the procedure well with no immediate complications noted. A postprocedure chest x-ray was ordered and reviewed with good placement of right IJ central venous catheter with tip overlying SVC.
[2017-12-23] MEDS: QUEtiapine 25 MG Tablet PO SCH (21:30)
[2017-12-24] MEDS: Insulin NovoLOG Aspart Correctional Sugar Inj SQ SCH ×5 (00:12→17:25)
[2017-12-24] MEDS: Oral Hygiene Kit OROPHARYNG SCH ×4 (00:13→16:02)
[2017-12-24] MEDS: fentaNYL 10 mcg/mL Premix Drip 2,500 MCG/250 ML BAG IV.SIG PRN ×2 (01:57→11:45)
[2017-12-24] MEDS: Midazolam 50 MG/50 ML Inj 50 MG/50 ML BAG IV.CONT PRN ×5 (03:13→23:13)
[2017-12-24] MEDS: Sodium Bicarbonate 8.4% Inj 100 MEQ in Dextrose 5% in Water Inj 900 ML IV.CONT SCH ×4 (04:31→16:01)
[2017-12-24] MEDS: Epoprostenol (30,000/mL) Neb 75 ML in Sodium Chlor 0.9% Inj 25 ML NEB SCH ×4 (05:25→23:19)
[2017-12-24] MEDS: Vancomycin Inj 1,250 MG in Sodium Chlor 0.9% Inj 250 ML IV.SIG SCH (05:42)
[2017-12-24] MEDS: Hydrocortisone Sod Succinate 100 MG Vial IV.PUSH SCH ×3 (05:42→21:51)
[2017-12-24] MEDS: Heparin - SQ 10,000 UNITS/ML Vial SQ SCH ×3 (05:42→21:51)
[2017-12-24] MEDS ORDERED: Pharmacy Ordered Lab Info OTHER ONE (05:45)
[2017-12-24 06:27] LABS: Baso % (Auto) 0.1 % (0.0-2.0); Hematocrit 22.7 % (35.0-46.0); Hemoglobin 7.5 gm/dL (11.6-15.3); Lymph # (Auto) 0.7 th/mm3 (1.0-4.8); Lymph % (Auto) 4.6 % (9.0-44.0); Mean Corpuscular HGB Conc 33.1 % (32.0-36.0); Mean Corpuscular Hemoglobin 31.9 pg (27.0-34.0); Mean Corpuscular Volume 96.2 fL (80.0-100.0); Mean Platelet Volume 9.3 fL (7.0-11.0); Mono # (Auto) 0.5 th/mm3 (0.0-0.9); Mono % (Auto) 3.5 % (0.0-8.0); Neut # (Auto) 14.1 th/mm3 (1.8-7.7); Neut % (Auto) 91.8 % (16.0-70.0); Platelet Count 145 th/mm3 (150-450); Red Blood Count 2.36 mil/mm3 (4.00-5.30); Red Cell Distribution Width 16.2 % (11.6-17.2); White Blood Count 15.3 th/mm3 (4.0-11.0)
[2017-12-24 07:03] LABS: Anion Gap 9 meq/L (5-15); Blood Urea Nitrogen 18 mg/dL (7-18); Calcium 6.5 mg/dL (8.5-10.1); Carbon Dioxide 25.4 meq/L (21.0-32.0); Chloride 111 meq/L (98-107); Glomerular Filtration Rate Greater Than 89 mL/min (>89); Glucose,Random 152 mg/dL (74-106); Magnesium 1.8 mg/dL (1.5-2.5); Phosphorus 2.2 mg/dL (2.5-4.9); Potassium 3.8 meq/L (3.5-5.1); Sodium 145 meq/L (136-145); Vancomycin,Trough 14.3 mcg/mL (5.0-10.0)
[2017-12-24 07:43] LABS: Calcium-Albumin Corrected 8.2 mg/dL (8.5-10.1); Total Protein 3.9 g/dL (6.4-8.2)
[2017-12-24 08:13] LABS: ABG Base Excess -1.1 mmol/L (-2-2); ABG PCO2 42 mmHg (38-42); ABG PO2 79 mmHG (61-120)
[2017-12-24 08:20] LABS: Lymphocytes 6 % (9-44); Metamyelocytes 2 % (0-1); Monocytes 1 % (0-8); Myelocytes 1 % (0-0); Platelet Morphology Normal (Normal); RBC Morphology Normal (Normal)
[2017-12-24] MEDS: Famotidine 20 MG Tablet PO SCH ×3 (08:45→20:12)
[2017-12-24] MEDS: Chlorhexidine 0.12% Oral Kit 15 ML UDC OROPHARYNG SCH ×2 (08:46→20:11)
[2017-12-24] MEDS: Carboxymethylcellulose 0.5% Opth Drops 15 ML Bottle EACH EYE SCH ×2 (08:47→20:13)
[2017-12-24] MEDS: Polyethylene Glycol 3350 17 GM Packet PO SCH ×2 (08:47→20:12)
[2017-12-24] MEDS: Senna/Docusate Sodium 8.6/50 MG Tablet PO SCH ×2 (08:47→20:12)
--- NOTE | 2017-12-24 09:48 | P.PNCC ---
Subjective Subjective Remarks/Hospital Course: This is a 62yF who was originally admitted on 11/23 with a diagnosis of colitis, found to have enterovirus. discharged on 12/11 at that time on PO vancomycin, but came back on 12/13 with altered mental status and hypoglycemia, again discharged on 12/15. She was mildly fatigued on 12/16 according to her and asked to wait another day before traveling back to her home in [place]. This morning, she was unarousable and her called 911. She was intubated upon arrival to the emergency department for agonal respirations. CXR demonstrates bilateral multifocal pneumonia. She is febrile, hypotensive. CVL placed in the ER and vasopressors initiated after 2L bolus crystalloid. CT chest/abd/pelvis demonstrates right pneumothorax, densely consolidated right lower lobe, bilateral pulmonary infiltrates, evidence of ongoing colitis. Patient continue to be unstable. Immediately after identifying ptx on CT scan, I emergently placed right chest tube with some improvements in hemodynamics, but ongoing distributive shock persists. I placed arterial line. No additional information available from the patient, ROS unobtainable. In discussion with the , she has not had any new complaints in the 48h she was home, and other than mild fatigue last night, no new complaints. She was able to walk to the bathroom without assistance yesterday. 12/18: shock remains. now on levophed, vasopressin, phenylephrine. second chest tube placed overnight for worsening SQ air. acidosis remains and is severe. 12/19: Afebrile. Remains on vasopressin drip only. On stress dose hydrocortisone. Evaluated by CT surgery. Not a candidate for intervention at the present time. Chest tube continues to leak. Epoprostenol added today 12/20: Afebrile. FiO2 has decreased and is currently 70%. Currently replacing potassium, phosphorus and magnesium. Recheck later this afternoon. Less chest tube leak today down to 1 chamber. SUBJECTIVE: 12/21: Overnight, worsening subcutaneous emphysema. A third chest tube placed by overnight vender after discussion with cardiothoracic surgery. Currently hemodynamically stable. Replacing phosphorus today. To be evaluated by CT surgery today. 12/22: Remains sedated, orally intubated on mechanical ventilation. Persistent air leak and chest tube noted. 12/23: Remains sedated, orally intubated on mechanical ventilation. Air leak persists though slightly improved. PEEP at +5 FiO2 55%, inhaled Flolan continues. Central line replaced with right IJ triple-lumen catheter. 12/24: Remains sedated, orally intubated on mechanical ventilation. 1+ air leak from chest tube 3 noted. PEEP +5, FiO2 60%, inhaled Flolan continues. Decreasing subcutaneous emphysema noted. Objective Vital Signs / I&O: Vital Signs 12/23/17 10:00 12/23/17 11:00 12/23/17 12:00 Temperature Pulse Rate 92 H 72 76 Respiratory Rate 24 24 24 Blood Pressure 100/56 L Pulse Oximetry 95 93 L 12/23/17 12:57 12/23/17 13:00 12/23/17 13:03 Temperature 98.6 F Pulse Rate 75 108 H 85 Respiratory Rate 24 15 14 Blood Pressure 110/64 121/73 114/61 Pulse Oximetry 96 95 92 L 12/23/17 13:06 12/23/17 13:09 12/23/17 13:12 Temperature Pulse Rate 79 80 81 Respiratory Rate 0 L 2 L 0 L Blood Pressure 113/63 111/60 107/60 Pulse Oximetry 94 L 94 L 95 12/23/17 13:15 12/23/17 13:18 12/23/17 13:21 Temperature Pulse Rate 83 82 81 Respiratory Rate 4 L 5 L 9 L Blood Pressure 107/62 108/63 110/65 Pulse Oximetry 95 95 95 12/23/17 13:24 12/23/17 13:27 12/23/17 13:30 Temperature Pulse Rate 76 77 77 Respiratory Rate 4 L 7 L 14 Blood Pressure 104/60 103/64 102/61 Pulse Oximetry 95 96 96 12/23/17 13:33 12/23/17 13:36 12/23/17 13:39 Temperature Pulse Rate 77 76 74 Respiratory Rate 6 L 11 L 22 Blood Pressure 105/62 104/61 110/66 Pulse Oximetry 95 95 96 12/23/17 13:45 12/23/17 14:00 12/23/17 14:15 Temperature Pulse Rate 72 75 78 Respiratory Rate 0 L 1 L 9 L Blood Pressure 104/61 106/67 105/64 Pulse Oximetry 95 96 97 12/23/17 14:30 12/23/17 14:45 12/23/17 15:00 Temperature Pulse Rate 84 83 79 Respiratory Rate 24 24 24 Blood Pressure 106/67 106/64 107/65 Pulse Oximetry 93 L 92 L 92 L 12/23/17 15:15 12/23/17 15:30 12/23/17 15:45 Temperature Pulse Rate 75 73 70 Respiratory Rate 35 H 19 24 Blood Pressure 109/66 107/65 108/64 Pulse Oximetry 92 L 93 L 93 L 12/23/17 15:53 12/23/17 15:59 12/23/17 16:00 Temperature Pulse Rate 70 70 Respiratory Rate 24 23 21 Blood Pressure 106/65 Pulse Oximetry 94 L 93 L 93 L 12/23/17 16:15 12/23/17 16:30 12/23/17 16:45 Temperature Pulse Rate 68 68 77 Respiratory Rate 20 16 24 Blood Pressure 107/62 106/64 105/62 Pulse Oximetry 93 L 94 L 98 12/23/17 17:00 12/23/17 17:15 12/23/17 17:30 Temperature Pulse Rate 92 H 88 82 Respiratory Rate 30 H 24 24 Blood Pressure 107/62 104/62 108/64 Pulse Oximetry 97 96 96 12/23/17 17:45 12/23/17 18:00 12/23/17 18:15 Temperature Pulse Rate 76 70 68 Respiratory Rate 24 24 24 Blood Pressure 105/64 108/68 106/69 Pulse Oximetry 97 97 97 12/23/17 18:30 12/23/17 18:45 12/23/17 20:00 Temperature 97.8 F Pulse Rate 65 69 58 L Respiratory Rate 29 H 24 24 Blood Pressure 106/62 102/66 110/62 Pulse Oximetry 98 87 L 95 12/23/17 22:00 12/24/17 00:00 12/24/17 02:00 Temperature 97.7 F Pulse Rate 76 53 L 56 L Respiratory Rate 24 Blood Pressure 120/64 Pulse Oximetry 93 L 12/24/17 04:00 12/24/17 05:03 12/24/17 05:04 Temperature 97.5 F L Pulse Rate 56 L 57 L Respiratory Rate 24 24 24 Blood Pressure 117/63 Pulse Oximetry 94 L 93 L 12/24/17 06:00 12/24/17 08:00 Temperature Pulse Rate 55 L 73 Respiratory Rate 20 Blood Pressure Pulse Oximetry 95 Intake & Output 12/23/17 12/24/17 12/24/17 18:59 06:59 18:59 Intake Total 3212.5 / 3212.5 2477 / 2477 512.5 / 512.5 Output Total 1410 / 1410 823 / 823 Balance 1802.5 / 1802.5 1654 / 1654 512.5 / 512.5 Weight 97.1 kg Intake: IV 3112.5 / 3112.5 1850 / 1850 512.5 / 512.5 Versed Inj 50 mg In 50 ml @ 2 100 / 100 100 / 100 50 / 50 MG/HR 2 mls/hr IV.CONT TITRATE PRN Rx#:[id number] Diprivan 1000 mg/100 ml Inj 1, 100 / 100 000 mg In 100 ml @ 5 MCG/KG/MIN 2.904 mls/hr IV.CONT TITRATE PRN Rx#:[id number] Sodium Bicarbonate 8.4% Inj 100 2000 / 2000 1000 / 1000 MEQ In D5W Inj 900 ML @ 100 mls/hr IV.CONT .Q10H [place] Rx#: [id number] Maxipime Inj 2,000 MG In NS Inj 200 / 200 100 / 100 100 / 100 100 ML @ 200 mls/hr IV.SIG Q8H [facility] Rx#:[id number] Mycamine Inj 150 MG In NS Inj 100 / 100 100 ML @ 100 mls/hr IV.SIG Q24H [facility] Rx#:[id number] Vancomycin Inj 1,250 MG In NS 262.5 / 262.5 262.5 / 262.5 Inj 250 ML @ 250 mls/hr IV.SIG Q24H [facility] Rx#:[id number] fentaNYL 10 mcg/mL Premix Drip 250 / 250 250 / 250 2,500 mcg In 250 ml @ 50 MCG/HR 5 mls/hr IV.SIG TITRATE PRN Rx #:[id number] Flagyl 500 MG Inj 100 ML @ 100 200 / 200 200 / 200 100 / 100 mls/hr IV.SIG Q6HR [facility] Rx#: [id number] Flolan (30,000 ng/mL) Neb 75 ML 100 / 100 In NS Inj 25 ML @ 5 mls/hr NEB Q8H [facility] Rx#:[id number] Tube Feeding 40 / 40 477 / 477 Water Bolus Amount 60 / 60 150 / 150 Output: Urine 823 / 823 Urine Amount (Catheter) 550 / 550 Straight 550 / 550 Chest Tube Drainage 860 / 860 #1 Right Upper 90 / 90 #2 Right 680 / 680 #3 Right Upper Other: Date of Last Bowel Movement 12/23/17 12/24/17 12/24/17 # Bowel Movements 1 # Incontinent Bowel Movements 2 Result Diagrams: 12/24/17 05:30 12/24/17 05:30 Imaging: Impressions Chest X-Ray 12/23/17 13:34 CONCLUSION: 1. Interval placement of right internal jugular central venous line with no pneumothorax. 2. 3 right-sided chest tubes remain in place. 3. Interval improvement in subcutaneous emphysema. 4. The right costophrenic angle with consolidative opacity in the right lung base. Objective Remarks: GENERAL: 62-year-old middle-aged female, lying in bed, intubated, sedated, critically ill. HEENT: Normocephalic. Atraumatic. Pupils equal, round, reactive, conjugate. Positive left scleral edema. There is subcu air. Mucous membranes are moist NECK: Trachea is midline. Significant subcu edema CHEST: Equal chest rise. PRVC. 55% FiO2, PEEP +5. 3 right-sided chest tubes, one with 3 + air leak. Significant bilateral subcutaneous edema CARDIOVASCULAR: S1S2 regular ABDOMEN: Soft, nontender, nondistended. No guarding. MUSCULOSKELETAL: Pulses 2+. Trace bilateral lower extremity peripheral edema. NEUROLOGICAL: RASS -3. Withdraws to pain x4. Does not follow commands. Assessment and Plan - Assessment and Plan Plan: Neuro/Psych: Acute metabolic encephalopathy Possible seizure disorder Currently on midazolam/fentany/ propofol drips for sedation/analgesia while intubated Frequent neurochecks goal RASS -2 She was started on anticonvulsants on her initial admission 11/23. Valproic acid 500 mg 3 times daily. Check level was 40 12/[address] 12/17- for acute disease EEG - Diffuse slowing consistent with a moderate diffuse encephalopathy. No epileptiform activity Acetaminophen 650 by tube every 6 hours as needed fever Continue quetiapine 25 mg daily/home medication Holding tizanidine 4 mg daily Respiratory: Acute hypoxic and hypercarbic respiratory failure Acute severe bilateral multifocal healthcare associated pneumonia Possible aspiration pneumonia Spontaneous right-sided tension pneumothorax Subcutaneous Emphysema Status post emergent chest tube 12/17 and second emergent chest tube 12/17: To - 40 cmH2O suction. Third chest tube placed 12/[address] surgery/Dr. Leah following A.m. chest x-ray revealed significant subcu emphysema. Improved pneumothorax CT thorax overnight 12/12 revealed significant 3.7 cm moderate right pneumothorax without tension. Pneumopericardium and significant subcutaneous emphysema. Vent bundle PRVC ventilation rate decreased from 24 to 20/500/0.85/PEEP+5/60%FiO2 Epoprostenol aerosolized added 12/19 Head of bed elevated Albuterol/ipratropium aerosols every 4 hours with albuterol aerosols every 2 hours as needed dyspnea Wean FiO2 for goal SPO2 greater than 90% Follow-up ABGs, CXR Cardiovascular: Septic shock Elevated troponin Type II NSTEMI secondary to demand ischemia Hyperlipidemia Holding lisinopril 30 mg daily/home medication. Resume pravastatin 80 mg daily when clinically indicated .stress dose hydrocortisone 100 mg IV every 8 hours Off pressors. Renal: Acute kidney injury Secondary to shock, off pressors continue Read Frequent urine output monitoring Daily creatinine Additional IV fluids and maintenance fluids -- Strict I/Os FEN/GI: Acute protein calorie malnutritionmoderate Lactic acidosis Severe colitis Enterovirus colitis C. difficile colitis Hyperammonemia Acute hypophosphatemia Acute hypernatremia Currently on lactulose 30 cc twice daily Maintenance IV fluids have been discontinued Place orogastric tube to low intermittent wall suction Tube feeding with vital 1.5 goal 55 cc now. Metoclopramide 1 mg 3 times daily ICU electrolyte protocol Daily BMP, magnesium, phosphorus Trend lactates Lactulose/polythene glycol twice daily Holding dicyclomine 20 mg 3 times daily On one quarter normal saline with 10 mg KCl 50 cc an hour - change to D5W with 2 amps of bicarb on 12/22 Heme/ID: C. difficile colitis Enterovirus colitis Septic shock Healthcare associated multifocal pneumonia Possible gram-positive cocci bacteremia Early empyema Vancomycin IV/p.o. with pharmacy dosing Cefepime, metronidazole, azithromycin and micafungin Bronchoscopy 12/19 with gram-negative rods Pleural fluid 12/19 with gram-negative rods Pleural fluid 12/17 -g Karla albicans/glabrata Klebsiella, gram-positive rods 12/17 -sputum -Klebsiella 12/17 blood-strep viridians/coag negative staph Infectious disease consulted and following. Endocrine: Acute hypoglycemia- resolving. Sliding scale insulin Accu-Cheks every 6 hours to maintain euglycemia Prophylaxis: GI Prophylaxis Famotidine DVT Prophylaxis -- SCDs Subcu heparin Lines: 10/31: RIJ central line placed 12/23 12/17 femoral triple-lumen catheter discontinued 12/23 12/17 right radial arterial line discontinued 12/21 12/17 right 28 [place] chest tube to -40 cm suction 12/17 right 32 [place] chest tube to -40 cm suction 12/17 -right #32 Singaporean chest tube to -40 cm suction 12/17 Jacek Critical care time 40 minutes excluding procedures
[2017-12-24] MEDS: Propofol 1000 mg/100 ml Inj 1,000 MG/100 ML BOTTLE IV.CONT PRN ×2 (16:00→20:14)
--- NOTE | 2017-12-24 16:47 | P.PNID ---
Subjective Remarks: remains on same vent settings afebrile off pressors 3 CT on the R Antibiotics: vanco IV vanco PO flagyl cefepime micafungin Allergies/Adverse Reactions: Allergies No Known Allergies Allergy (Verified 12/13/17 08:04) Objective Vital Signs 12/23/17 16:45 12/23/17 17:00 12/23/17 17:15 Temperature Pulse Rate 77 92 H 88 Respiratory Rate 24 30 H 24 Blood Pressure 105/62 107/62 104/62 Pulse Oximetry 98 97 96 12/23/17 17:30 12/23/17 17:45 12/23/17 18:00 Temperature Pulse Rate 82 76 70 Respiratory Rate 24 24 24 Blood Pressure 108/64 105/64 108/68 Pulse Oximetry 96 97 97 12/23/17 18:15 12/23/17 18:30 12/23/17 18:45 Temperature Pulse Rate 68 65 69 Respiratory Rate 24 29 H 24 Blood Pressure 106/69 106/62 102/66 Pulse Oximetry 97 98 87 L 12/23/17 20:00 12/23/17 22:00 12/24/17 00:00 Temperature 97.8 F 97.7 F Pulse Rate 58 L 76 53 L Respiratory Rate 24 24 Blood Pressure 110/62 120/64 Pulse Oximetry 95 93 L 12/24/17 02:00 12/24/17 04:00 12/24/17 05:03 Temperature 97.5 F L Pulse Rate 56 L 56 L 57 L Respiratory Rate 24 24 Blood Pressure 117/63 Pulse Oximetry 94 L 12/24/17 05:04 12/24/17 06:00 12/24/17 08:00 Temperature Pulse Rate 55 L 73 Respiratory Rate 24 20 Blood Pressure Pulse Oximetry 93 L 95 12/24/17 10:00 12/24/17 12:00 12/24/17 12:36 Temperature Pulse Rate 65 55 L Respiratory Rate 20 Blood Pressure Pulse Oximetry 97 12/24/17 14:00 12/24/17 15:17 Temperature Pulse Rate 91 H 90 Respiratory Rate 22 Blood Pressure Pulse Oximetry 97 Intake & Output 12/23/17 12/24/17 12/24/17 18:59 06:59 18:59 Intake Total 3212.5 / 3212.5 2577 / 2577 2011. Output Total 1410 / 1410 823 / 823 Balance 1802.5 / 1802.5 1754 / 1754 Weight 97.1 kg Intake: IV 3112.5 / 3112.5 1950 / 1950 Versed Inj 50 mg In 50 ml @ 2 100 / 100 100 / 100 100 / 100 MG/HR 2 mls/hr IV.CONT TITRATE PRN Rx#:[id number] Diprivan 1000 mg/100 ml Inj 1, 100 / 100 100 / 100 000 mg In 100 ml @ 5 MCG/KG/MIN 2.904 mls/hr IV.CONT TITRATE PRN Rx#:[id number] Sodium Bicarbonate 8.4% Inj 100 2000 / 2000 1000 / 1000 1000 / 1000 MEQ In D5W Inj 900 ML @ 100 mls/hr IV.CONT .Q10H [facility] Rx#: [id number] Maxipime Inj 2,000 MG In NS Inj 200 / 200 100 / 100 200 / 200 100 ML @ 200 mls/hr IV.SIG Q8H [facility] Rx#:[id number] Mycamine Inj 150 MG In NS Inj 100 / 100 100 ML @ 100 mls/hr IV.SIG Q24H [facility] Rx#:[id number] Vancomycin Inj 1,250 MG In NS 262.5 / 262.5 262.5 / 262.5 Inj 250 ML @ 250 mls/hr IV.SIG Q24H [facility] Rx#:[id number] fentaNYL 10 mcg/mL Premix Drip 250 / 250 250 / 250 250 / 250 2,500 mcg In 250 ml @ 50 MCG/HR 5 mls/hr IV.SIG TITRATE PRN Rx #:[id number] Flagyl 500 MG Inj 100 ML @ 100 200 / 200 200 / 200 200 / 200 mls/hr IV.SIG Q6HR [facility] Rx#: [id number] Flolan (30,000 ng/mL) Neb 75 ML 100 / 100 In NS Inj 25 ML @ 5 mls/hr NEB Q8H [facility] Rx#:[id number] Tube Feeding 40 / 40 477 / 477 Water Bolus Amount 60 / 60 150 / 150 Output: Urine 823 / 823 Urine Amount (Catheter) 550 / 550 Straight 550 / 550 Chest Tube Drainage 860 / 860 #1 Right Upper 90 / 90 #2 Right 680 / 680 #3 Right Upper 90 / 90 Other: Date of Last Bowel Movement 12/23/17 12/24/17 12/24/17 # Bowel Movements 1 # Incontinent Bowel Movements 2 12/17/17 15:55 Fluid - Pleural fluid Gram Stain - Final 12/17/17 15:55 Fluid - Pleural fluid Body Fluid Culture - Final gram positive rods Karla glabrata Klebsiella pneumoniae 12/17/17 15:55 Other - Final 12/17/17 08:24 Blood - Peripheral Aerobic Blood Culture - Final No growth in 5 days 12/17/17 08:24 Blood - Peripheral Anaerobic Blood Culture - Final No growth in 5 days 12/17/17 08:10 Blood - Peripheral Aerobic Blood Culture - Final No growth in 5 days 12/17/17 08:10 Blood - Peripheral Anaerobic Blood Culture - Final Staphylococcus coag negative Viridans streptococcus grp 12/19/17 11:30 Bronchial - Bronchial Gram Stain - Final 12/19/17 11:30 Bronchial - Bronchial Bronchial Culture - Final Klebsiella pneumoniae 12/19/17 11:30 Bronchial Washings - Bronchial Acid Fast Bacilli Smear - Final No acid fast bacilli seen 12/19/17 11:30 Bronchial Washings - Bronchial Mycobacterial Culture - Pending Lab - Hematology Results 12/23/17 12/24/17 05:10 05:30 WBC 17.8 H 15.3 H RBC 2.31 L 2.36 L Hgb 7.5 L 7.5 L Hct 22.2 L 22.7 L MCV 95.8 96.2 MCH 32.3 31.9 MCHC 33.7 33.1 RDW 15.9 16.2 Plt Count 155 145 L MPV 8.0 9.3 Prelim Diff (Auto) Slide review pending Slide review pending Neut % (Auto) 94.9 H 91.8 H Lymph % (Auto) 3.2 L 4.6 L [place] % (Auto) 1.4 3.5 Eos % (Auto) 0.3 0.0 Baso % (Auto) 0.2 0.1 Neut # (Auto) 16.9 H 14.1 H Lymph # (Auto) 0.6 L 0.7 L [place] # (Auto) 0.3 0.5 Eos # (Auto) 0.1 0.0 Baso # (Auto) 0.0 0.0 WBC Differential Manual diff final Manual diff final Seg Neuts % (Manual) 80 H 88 H Band Neuts % (Manual) 12 H 2 Lymphocytes % (Manual) 1 L 6 L Monocytes % (Manual) 5 1 Metamyelocytes % (Man) 2 H Myelocytes % (Man) 1 H Promyelocytes % (Man) 2 H Abs Neuts (Manual) 16.7 H 14.2 H Differential Comment . . Toxic Granulation 1+ H Toxic Vacuolation Present H Platelet Estimate Normal Low L Platelet Morphology Normal Normal RBC Morphology Normal Lab - Chemistry Results 12/22/17 12/23/17 12/23/17 17:24 01:00 05:08 Sodium Potassium Chloride Carbon Dioxide Anion Gap BUN Creatinine Estimated GFR POC Glucose 118 H 136 H 127 H Random Glucose Calcium Prot Corrected Calcium Phosphorus Magnesium Total Protein 12/23/17 12/23/17 12/23/17 05:10 11:45 18:33 Sodium 148 H Potassium 4.3 Chloride 117 H Carbon Dioxide 23.9 Anion Gap 7 BUN 19 H Creatinine 0.54 Estimated GFR Greater than 89 POC Glucose 130 H 149 H Random Glucose 129 H Calcium 6.7 L* Prot Corrected Calcium 8.4 L Phosphorus 2.2 L Magnesium 2.0 Total Protein 4.0 L 12/24/17 12/24/17 12/24/17 00:00 05:30 05:31 Sodium 145 Potassium 3.8 Chloride 111 H Carbon Dioxide 25.4 Anion Gap 9 BUN 18 Creatinine 0.50 Estimated GFR Greater than 89 POC Glucose 171 H 152 H Random Glucose 152 H Calcium 6.5 L* Prot Corrected Calcium 8.2 L Phosphorus 2.2 L Magnesium 1.8 Total Protein 3.9 L 12/24/17 11:32 Sodium Potassium Chloride Carbon Dioxide Anion Gap BUN Creatinine Estimated GFR POC Glucose 155 H Random Glucose Calcium Prot Corrected Calcium Phosphorus Magnesium Total Protein Imaging: ITS Impressions Head CT 12/17/17 08:02 CONCLUSION: 1. 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 2. Otherwise negative. . Abdomen/Pelvis CT 12/17/17 10:45 CONCLUSION: 1. Moderate diffuse colonic wall thickening exaggerated by lack of colonic distention. This may be due to low-protein state/edema. However, differential considerations include infectious and inflammatory colitis. 2. Moderate-sized right hydropneumothorax with airspace disease in the lung bases as described on chest CT. 3. Additional ancillary findings, as above. Chest CT 12/21/17 04:03 CONCLUSION: 1. Moderate size right pneumothorax without tension. Also pneumopericardium and pneumomediastinum. Massive chest wall emphysema. 2. Bilateral airspace disease. 3.7 cm bilobed cavitary lesion of the right lower lobe. 3. Small left pleural effusion. No left pneumothorax. Chest X-Ray 12/23/17 13:34 CONCLUSION: 1. Interval placement of right internal jugular central venous line with no pneumothorax. 2. 3 right-sided chest tubes remain in place. 3. Interval improvement in subcutaneous emphysema. 4. The right costophrenic angle with consolidative opacity in the right lung base. Physical Exam: GENERAL: sedated int'd on mech vent'n SKIN: Warm and dry. NO rash HEAD: Atraumatic. Normocephalic. EYES: Pupils equal and round. No scleral icterus. No injection or drainage. ENT: No nasal bleeding or discharge. Mucous membranes pink and moist. NECK: Trachea midline. No JVD. CARDIOVASCULAR: Regular rate and rhythm. RESPIRATORY: No accessory muscle use. +extensive rhocnhi to auscultation. + Amphoric BS on R Breath sounds decreased bilaterally. CT x 3 R side with serosang d/c + airleak + SQ emphysema GASTROINTESTINAL: Abdomen soft, non-tender, distended. Hepatic and splenic margins not palpable. MUSCULOSKELETAL: Extremities without clubbing, cyanosis, 2+ edema. No obvious deformities. 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
[2017-12-24] MEDS: Micafungin Inj 150 MG in Sodium Chlor 0.9% Inj 100 ML IV.SIG SCH (17:07)
[2017-12-24] MEDS: QUEtiapine 25 MG Tablet PO SCH (20:12)
[2017-12-25] MEDS: Oral Hygiene Kit OROPHARYNG SCH ×4 (00:11→16:52)
[2017-12-25] MEDS: Insulin NovoLOG Aspart Correctional Sugar Inj SQ SCH ×4 (00:12→18:43)
[2017-12-25] MEDS: Propofol 1000 mg/100 ml Inj 1,000 MG/100 ML BOTTLE IV.CONT PRN ×5 (00:26→23:09)
[2017-12-25] MEDS: fentaNYL 10 mcg/mL Premix Drip 2,500 MCG/250 ML BAG IV.SIG PRN ×3 (01:42→20:04)
[2017-12-25] MEDS: Sodium Bicarbonate 8.4% Inj 100 MEQ in Dextrose 5% in Water Inj 900 ML IV.CONT SCH ×6 (01:42→22:45)
[2017-12-25] MEDS: Midazolam 50 MG/50 ML Inj 50 MG/50 ML BAG IV.CONT PRN ×4 (02:35→23:09)
[2017-12-25] MEDS: Potassium Phosphate 500 MG Soluble Tablet PO PRN (02:42)
[2017-12-25] MEDS: Epoprostenol (30,000/mL) Neb 75 ML in Sodium Chlor 0.9% Inj 25 ML NEB SCH (04:39)
[2017-12-25] MEDS ORDERED: Vancomycin Inj 1,500 MG in Sodium Chlor 0.9% Inj 500 ML IV.SIG SCH (06:00)
[2017-12-25] MEDS: Heparin - SQ 10,000 UNITS/ML Vial SQ SCH ×3 (06:03→22:45)
[2017-12-25] MEDS: Hydrocortisone Sod Succinate 100 MG Vial IV.PUSH SCH ×3 (06:03→22:44)
[2017-12-25] MEDS: Polyethylene Glycol 3350 17 GM Packet PO SCH ×2 (08:48→20:02)
[2017-12-25] MEDS: Senna/Docusate Sodium 8.6/50 MG Tablet PO SCH ×2 (08:49→20:02)
[2017-12-25] MEDS: Carboxymethylcellulose 0.5% Opth Drops 15 ML Bottle EACH EYE SCH ×2 (08:49→20:02)
[2017-12-25] MEDS: Famotidine 20 MG Tablet PO SCH ×2 (08:49→20:01)
[2017-12-25 08:58] LABS: Hemoglobin 7.8 gm/dL (11.6-15.3); Mean Corpuscular HGB Conc 32.5 % (32.0-36.0); Mean Corpuscular Hemoglobin 31.8 pg (27.0-34.0); Mean Corpuscular Volume 97.8 fL (80.0-100.0); Mean Platelet Volume 9.9 fL (7.0-11.0); Platelet Count 188 th/mm3 (150-450); Red Blood Count 2.46 mil/mm3 (4.00-5.30); Red Cell Distribution Width 16.2 % (11.6-17.2)
[2017-12-25 09:21] LABS: Anion Gap 9 meq/L (5-15); Aspartate Aminotransferase 15 U/L (15-37); Blood Urea Nitrogen 16 mg/dL (7-18); Calcium 6.4 mg/dL (8.5-10.1); Carbon Dioxide 26.4 meq/L (21.0-32.0); Chloride 110 meq/L (98-107); Glomerular Filtration Rate Greater Than 89 mL/min (>89); Glucose,Random 146 mg/dL (74-106); Potassium 3.6 meq/L (3.5-5.1); Sodium 145 meq/L (136-145)
[2017-12-25 09:31] LABS: Alanine Aminotransferase 11 U/L (10-53); Alkaline Phosphatase 73 U/L (45-117); Total Protein 3.8 g/dL (6.4-8.2)
[2017-12-25] MEDS ORDERED: Epoprostenol (30,000/mL) Neb 60 ML in Sodium Chlor 0.9% Inj 40 ML NEB SCH ×2 (10:00→12:00)
[2017-12-25] MEDS: Chlorhexidine 0.12% Oral Kit 15 ML UDC OROPHARYNG SCH ×2 (11:13→20:02)
--- NOTE | 2017-12-25 13:09 | P.PNCC ---
Subjective Subjective Remarks/Hospital Course: This is a 62yF who was originally admitted on 11/23 with a diagnosis of colitis, found to have enterovirus. discharged on 12/11 at that time on PO vancomycin, but came back on 12/13 with altered mental status and hypoglycemia, again discharged on 12/15. She was mildly fatigued on 12/16 according to her and asked to wait another day before traveling back to her home in [place]. This morning, she was unarousable and her called 911. She was intubated upon arrival to the emergency department for agonal respirations. CXR demonstrates bilateral multifocal pneumonia. She is febrile, hypotensive. CVL placed in the ER and vasopressors initiated after 2L bolus crystalloid. CT chest/abd/pelvis demonstrates right pneumothorax, densely consolidated right lower lobe, bilateral pulmonary infiltrates, evidence of ongoing colitis. Patient continue to be unstable. Immediately after identifying ptx on CT scan, I emergently placed right chest tube with some improvements in hemodynamics, but ongoing distributive shock persists. I placed arterial line. No additional information available from the patient, ROS unobtainable. In discussion with the , she has not had any new complaints in the 48h she was home, and other than mild fatigue last night, no new complaints. She was able to walk to the bathroom without assistance yesterday. 12/18: shock remains. now on levophed, vasopressin, phenylephrine. second chest tube placed overnight for worsening SQ air. acidosis remains and is severe. 12/19: Afebrile. Remains on vasopressin drip only. On stress dose hydrocortisone. Evaluated by CT surgery. Not a candidate for intervention at the present time. Chest tube continues to leak. Epoprostenol added today 12/20: Afebrile. FiO2 has decreased and is currently 70%. Currently replacing potassium, phosphorus and magnesium. Recheck later this afternoon. Less chest tube leak today down to 1 chamber. SUBJECTIVE: 12/21: Overnight, worsening subcutaneous emphysema. A third chest tube placed by overnight clerical adviser after discussion with cardiothoracic surgery. Currently hemodynamically stable. Replacing phosphorus today. To be evaluated by CT surgery today. 12/22: Remains sedated, orally intubated on mechanical ventilation. Persistent air leak and chest tube noted. 12/23: Remains sedated, orally intubated on mechanical ventilation. Air leak persists though slightly improved. PEEP at +5 FiO2 55%, inhaled Flolan continues. Central line replaced with right IJ triple-lumen catheter. 12/24: Remains sedated, orally intubated on mechanical ventilation. 1+ air leak from chest tube 3 noted. PEEP +5, FiO2 60%, inhaled Flolan continues. Decreasing subcutaneous emphysema noted. 12/25: Remains sedated, orally improved on mechanical ventilation. 1+ for leak from chest tube 2. PEEP +5, FiO2 50%. Starting to titrate inhaled Flolan down today. Initiating Lasix to mobilize fluid. Objective Vital Signs / I&O: Vital Signs 12/24/17 14:00 12/24/17 15:00 12/24/17 15:17 Temperature Pulse Rate 91 H 93 H 90 Respiratory Rate 18 19 22 Blood Pressure 107/67 100/73 Pulse Oximetry 92 L 97 97 12/24/17 16:00 12/24/17 17:00 12/24/17 18:00 Temperature 97.9 F Pulse Rate 83 73 74 Respiratory Rate 20 20 16 Blood Pressure 91/57 L 112/71 105/67 Pulse Oximetry 92 L 92 L 96 12/24/17 19:00 12/24/17 20:00 12/24/17 21:00 Temperature 97.7 F Pulse Rate 73 77 72 Respiratory Rate 25 H 29 H 16 Blood Pressure 106/65 101/58 L 115/64 Pulse Oximetry 96 97 97 12/24/17 22:00 12/24/17 23:00 12/25/17 00:00 Temperature 97.0 F L Pulse Rate 77 63 65 Respiratory Rate 15 20 20 Blood Pressure 99/60 L 101/62 97/55 L Pulse Oximetry 96 97 97 12/25/17 01:00 12/25/17 02:00 12/25/17 03:00 Temperature Pulse Rate 92 H 68 66 Respiratory Rate 30 H 11 L 20 Blood Pressure 130/67 100/63 108/64 Pulse Oximetry 95 97 100 12/25/17 03:30 12/25/17 04:00 12/25/17 05:00 Temperature 97.8 F Pulse Rate 59 L 66 Respiratory Rate 20 20 20 Blood Pressure 107/64 113/67 Pulse Oximetry 98 98 96 12/25/17 05:02 12/25/17 06:00 12/25/17 07:00 Temperature Pulse Rate 66 63 68 Respiratory Rate 20 20 12 Blood Pressure 113/67 103/60 105/66 Pulse Oximetry 96 98 97 12/25/17 08:00 12/25/17 08:14 12/25/17 09:00 Temperature 97.7 F Pulse Rate 66 69 71 Respiratory Rate 20 20 17 Blood Pressure 101/61 104/66 Pulse Oximetry 98 99 96 12/25/17 10:00 12/25/17 11:00 12/25/17 11:10 Temperature Pulse Rate 79 93 H 83 Respiratory Rate 13 25 H 19 Blood Pressure 97/65 L 95/60 L Pulse Oximetry 95 77 L 92 L 12/25/17 12:00 Temperature 98.8 F Pulse Rate 86 Respiratory Rate 24 Blood Pressure 104/66 Pulse Oximetry 93 L Intake & Output 12/24/17 12/25/17 12/25/17 18:59 06:59 18:59 Intake Total 2484.5 / 2484.5 2937 / 2937 1890 / 1890 Output Total 625 / 625 930 / 930 Balance 1859.5 / 1859.5 2006 1890 / 1890 Weight 102.5 kg Intake: IV 2162.5 / 2162.5 2450 / 2450 1890 / 1890 Versed Inj 50 mg In 50 ml @ 2 150 / 150 100 / 100 50 / 50 MG/HR 2 mls/hr IV.CONT TITRATE PRN Rx#:[id number] Levophed Inj 16 MG In D5W Inj 100 / 100 234 ML @ 2 MCG/MIN 1.87 mls/hr IV.CONT TITRATE PRN Rx#: [id number] Diprivan 1000 mg/100 ml Inj 1, 300 / 300 100 / 100 000 mg In 100 ml @ 5 MCG/KG/MIN 2.904 mls/hr IV.CONT TITRATE PRN Rx#:[id number] Sodium Bicarbonate 8.4% Inj 100 1000 / 1000 1000 / 1000 1000 / 1000 MEQ In D5W Inj 900 ML @ 100 mls/hr IV.CONT .Q10H [facility] Rx#: [id number] Maxipime Inj 2,000 MG In NS Inj 200 / 200 200 / 200 100 / 100 100 ML @ 200 mls/hr IV.SIG Q8H [facility] Rx#:[id number] Mycamine Inj 150 MG In NS Inj 100 / 100 100 ML @ 100 mls/hr IV.SIG Q24H [facility] Rx#:[id number] Vancomycin Inj 1,250 MG In NS 262.5 / 262.5 Inj 250 ML @ 250 mls/hr IV.SIG Q24H [facility] Rx#:[id number] Vancomycin Inj 1,500 MG In NS 515 / 515 Inj 500 ML @ 250 mls/hr IV.SIG Q24H [facility] Rx#:[id number] fentaNYL 10 mcg/mL Premix Drip 250 / 250 250 / 250 125 / 125 2,500 mcg In 250 ml @ 50 MCG/HR 5 mls/hr IV.SIG TITRATE PRN Rx #:[id number] Flagyl 500 MG Inj 100 ML @ 100 200 / 200 300 / 300 mls/hr IV.SIG Q6HR [facility] Rx#: [id number] Flolan (30,000 ng/mL) Neb 75 ML 100 / 100 100 / 100 In NS Inj 25 ML @ 5 mls/hr NEB Q8H [facility] Rx#:[id number] Tube Feeding 322 / 322 387 / 387 Water Bolus Amount 100 / 100 Output: Urine 475 / 475 Urine Amount (Catheter) 700 / 700 Indwelling Urethral Catheter 700 / 700 Chest Tube Drainage 150 / 150 230 / 230 #1 Right Upper 25 / 25 10 / 10 #2 Right 25 / 25 60 / 60 #3 Right Upper 100 / 100 160 / 160 Other: Date of Last Bowel Movement 12/24/17 12/25/17 12/25/17 # Bowel Movements 1 2 Result Diagrams: 12/25/17 08:15 12/25/17 08:15 Other Results: Laboratory Results - last 24 hr 12/24/17 12/25/17 12/25/17 17:06 00:07 06:24 WBC RBC Hgb Hct MCV MCH MCHC RDW Plt Count MPV Sodium Potassium Chloride Carbon Dioxide Anion Gap BUN Creatinine Estimated GFR POC Glucose 105 181 H 165 H Random Glucose Calcium Prot Corrected Calcium Total Bilirubin AST ALT Alkaline Phosphatase Total Protein Albumin 12/25/17 12/25/17 12/25/17 08:15 08:15 11:17 WBC 17.0 H RBC 2.46 L Hgb 7.8 L Hct 24.0 L MCV 97.8 MCH 31.8 MCHC 32.5 RDW 16.2 Plt Count 188 MPV 9.9 Sodium 145 Potassium 3.6 Chloride 110 H Carbon Dioxide 26.4 Anion Gap 9 BUN 16 Creatinine 0.46 L Estimated GFR Greater than 89 POC Glucose 142 H Random Glucose 146 H Calcium 6.4 L* Prot Corrected Calcium 8.1 L Total Bilirubin 0.1 L AST 15 ALT 11 Alkaline Phosphatase 73 Total Protein 3.8 L Albumin 1.0 L Imaging: Impressions Chest X-Ray 12/23/17 13:34 CONCLUSION: 1. Interval placement of right internal jugular central venous line with no pneumothorax. 2. 3 right-sided chest tubes remain in place. 3. Interval improvement in subcutaneous emphysema. 4. The right costophrenic angle with consolidative opacity in the right lung base. Objective Remarks: GENERAL: 62-year-old middle-aged female, lying in bed, intubated, sedated, critically ill. HEENT: Normocephalic. Atraumatic. Pupils equal, round, reactive, conjugate. Positive left scleral edema. There is subcu air. Mucous membranes are moist NECK: Trachea is midline. Significant subcu edema CHEST: Equal chest rise. PRVC. 55% FiO2, PEEP +5. 3 right-sided chest tubes, one with 3 + air leak. Significant bilateral subcutaneous edema CARDIOVASCULAR: S1S2 regular ABDOMEN: Soft, nontender, nondistended. No guarding. MUSCULOSKELETAL: Pulses 2+. Trace bilateral lower extremity peripheral edema. NEUROLOGICAL: RASS -3. Withdraws to pain x4. Does not follow commands. Assessment and Plan - Assessment and Plan Plan: Neuro/Psych: Acute metabolic encephalopathy Possible seizure disorder Currently on midazolam/fentany/ propofol drips for sedation/analgesia while intubated Frequent neurochecks goal RASS -2 She was started on anticonvulsants on her initial admission 11/23. Valproic acid 500 mg 3 times daily. Check level was 40 12/[address] 12/17- for acute disease EEG - Diffuse slowing consistent with a moderate diffuse encephalopathy. No epileptiform activity Acetaminophen 650 by tube every 6 hours as needed fever Continue quetiapine 25 mg daily/home medication Holding tizanidine 4 mg daily Respiratory: Acute hypoxic and hypercarbic respiratory failure Acute severe bilateral multifocal healthcare associated pneumonia Possible aspiration pneumonia Spontaneous right-sided tension pneumothorax Subcutaneous Emphysema Status post emergent chest tube 12/17 and second emergent chest tube 12/17: To - 40 cmH2O suction. Third chest tube placed 12/19. CT surgery/Dr. Lynn following A.m. chest x-ray revealed significant subcu emphysema. Improved pneumothorax CT thorax overnight 12/12 revealed significant 3.7 cm moderate right pneumothorax without tension. Pneumopericardium and significant subcutaneous emphysema. Vent bundle PRVC ventilation rate decreased from 24 to 20/500/0.85/PEEP+5/60%FiO2 Epoprostenol aerosolized added 12/19, will titrate down to 20 ng/kg/min by 12/24 and reevaluate with ABG to decide further titration. Head of bed elevated Albuterol/ipratropium aerosols every 4 hours with albuterol aerosols every 2 hours as needed dyspnea Wean FiO2 for goal SPO2 greater than 90% Follow-up ABGs, CXR Cardiovascular: Septic shock Elevated troponin Type II NSTEMI secondary to demand ischemia Hyperlipidemia Holding lisinopril 30 mg daily/home medication. Resume pravastatin 80 mg daily when clinically indicated .stress dose hydrocortisone 100 mg IV every 8 hours Off pressors. Initiating Lasix on 12/25 to mobilize fluid in view of significant positive fluid balance Renal: Acute kidney injury (resolved) Secondary to shock, off pressors continue Read Frequent urine output monitoring Daily creatinine KVO IV fluid. Lasix to mobilize fluid starting 12/25 -- Strict I/Os FEN/GI: Acute protein calorie malnutritionmoderate Lactic acidosis Severe colitis Enterovirus colitis C. difficile colitis Hyperammonemia Acute hypophosphatemia Acute hypernatremia Currently on lactulose 30 cc twice daily Maintenance IV fluids have been discontinued Place orogastric tube to low intermittent wall suction Tube feeding with vital 1.5 goal 55 cc now. Metoclopramide 1 mg 3 times daily ICU electrolyte protocol Daily BMP, magnesium, phosphorus Trend lactates Lactulose/polythene glycol twice daily Holding dicyclomine 20 mg 3 times daily D5W with 2 amps of bicarb decreased to 30 cc an hour on 12/25 Heme/ID: C. difficile colitis Enterovirus colitis Septic shock Healthcare associated multifocal pneumonia Possible gram-positive cocci bacteremia Early empyema Vancomycin IV/p.o. with pharmacy dosing Cefepime, metronidazole, azithromycin and micafungin Bronchoscopy 12/19 with gram-negative rods Pleural fluid 12/19 with gram-negative rods Pleural fluid 12/17 -g Karla albicans/glabrata Klebsiella, gram-positive rods 12/17 -sputum -Klebsiella 12/17 blood-strep viridians/coag negative staph Infectious disease consulted and following. Endocrine: Acute hypoglycemia- resolving. Sliding scale insulin Accu-Cheks every 6 hours to maintain euglycemia Prophylaxis: GI Prophylaxis Famotidine DVT Prophylaxis -- SCDs Subcu heparin Lines: 12/23: RIJ central line placed 12/23 12/17 femoral triple-lumen catheter discontinued 12/23 12/17 right radial arterial line discontinued 12/21 12/17 right 28 R[place] chest tube to -40 cm suction 12/17 right 32 [place] chest tube to -40 cm suction 12/17 -right #32 [place] chest tube to -40 cm suction 12/17 Jacek Updated patient's regarding current clinical status and plan of care and he voiced understanding and was agreeable. Critical care time 40 minutes excluding procedures
--- NOTE | 2017-12-25 16:06 | P.PNID ---
Subjective Remarks: remains on 50 % FiO2 PEEP [address] on the R small air leak Antibiotics: vanco IV vanco PO flagyl cefepime micafungin Allergies/Adverse Reactions: Allergies No Known Allergies Allergy (Verified 12/13/17 08:04) Objective Vital Signs 12/24/17 16:00 12/24/17 17:00 12/24/17 18:00 Temperature 97.9 F Pulse Rate 83 73 74 Respiratory Rate 20 20 16 Blood Pressure 91/57 L 112/71 105/67 Pulse Oximetry 92 L 92 L 96 12/24/17 19:00 12/24/17 20:00 12/24/17 21:00 Temperature 97.7 F Pulse Rate 73 77 72 Respiratory Rate 25 H 29 H 16 Blood Pressure 106/65 101/58 L 115/64 Pulse Oximetry 96 97 97 12/24/17 22:00 12/24/17 23:00 12/25/17 00:00 Temperature 97.0 F L Pulse Rate 77 63 65 Respiratory Rate 15 20 20 Blood Pressure 99/60 L 101/62 97/55 L Pulse Oximetry 96 97 97 12/25/17 01:00 12/25/17 02:00 12/25/17 03:00 Temperature Pulse Rate 92 H 68 66 Respiratory Rate 30 H 11 L 20 Blood Pressure 130/67 100/63 108/64 Pulse Oximetry 95 97 100 12/25/17 03:30 12/25/17 04:00 12/25/17 05:00 Temperature 97.8 F Pulse Rate 59 L 66 Respiratory Rate 20 20 20 Blood Pressure 107/64 113/67 Pulse Oximetry 98 98 96 12/25/17 05:02 12/25/17 06:00 12/25/17 07:00 Temperature Pulse Rate 66 63 68 Respiratory Rate 20 20 12 Blood Pressure 113/67 103/60 105/66 Pulse Oximetry 96 98 97 12/25/17 08:00 12/25/17 08:14 12/25/17 09:00 Temperature 97.7 F Pulse Rate 66 69 71 Respiratory Rate 20 20 17 Blood Pressure 101/61 104/66 Pulse Oximetry 98 99 96 12/25/17 10:00 12/25/17 11:00 12/25/17 11:10 Temperature Pulse Rate 79 93 H 83 Respiratory Rate 13 25 H 19 Blood Pressure 97/65 L 95/60 L Pulse Oximetry 95 77 L 92 L 11/02/18 12:00 12/25/17 13:00 Temperature 98.8 F Pulse Rate 86 80 Respiratory Rate 24 21 Blood Pressure 104/66 98/60 L Pulse Oximetry 93 L 93 L Intake & Output 12/24/17 12/25/17 12/25/17 18:59 06:59 18:59 Intake Total 2484.5 / 2484.5 2937 / 2937 1890 / 1890 Output Total 625 / 625 930 / 930 Balance 1859.5 / 1859.5 2006 1890 / 1890 Weight 102.5 kg Intake: IV 2162.5 / 2162.5 2450 / 2450 1890 / 1890 Versed Inj 50 mg In 50 ml @ 2 150 / 150 100 / 100 50 / 50 MG/HR 2 mls/hr IV.CONT TITRATE PRN Rx#:[id number] Levophed Inj 16 MG In D5W Inj 100 / 100 234 ML @ 2 MCG/MIN 1.87 mls/hr IV.CONT TITRATE PRN Rx#: [id number] Diprivan 1000 mg/100 ml Inj 1, 300 / 300 100 / 100 000 mg In 100 ml @ 5 MCG/KG/MIN 2.904 mls/hr IV.CONT TITRATE PRN Rx#:[id number] Sodium Bicarbonate 8.4% Inj 100 1000 / 1000 1000 / 1000 1000 / 1000 MEQ In D5W Inj 900 ML @ 100 mls/hr IV.CONT .Q10H [facility] Rx#: [id number] Maxipime Inj 2,000 MG In NS Inj 200 / 200 200 / 200 100 / 100 100 ML @ 200 mls/hr IV.SIG Q8H [facility] Rx#:[id number] Mycamine Inj 150 MG In NS Inj 100 / 100 100 ML @ 100 mls/hr IV.SIG Q24H [facility] Rx#:[id number] Vancomycin Inj 1,250 MG In NS 262.5 / 262.5 Inj 250 ML @ 250 mls/hr IV.SIG Q24H [facility] Rx#:[id number] Vancomycin Inj 1,500 MG In NS 515 / 515 Inj 500 ML @ 250 mls/hr IV.SIG Q24H [facility] Rx#:[id number] fentaNYL 10 mcg/mL Premix Drip 250 / 250 250 / 250 125 / 125 2,500 mcg In 250 ml @ 50 MCG/HR 5 mls/hr IV.SIG TITRATE PRN Rx #:[id number] Flagyl 500 MG Inj 100 ML @ 100 200 / 200 300 / 300 mls/hr IV.SIG Q6HR [facility] Rx#: [id number] Flolan (30,000 ng/mL) Neb 75 ML 100 / 100 100 / 100 In NS Inj 25 ML @ 5 mls/hr NEB Q8H [facility] Rx#:[id number] Tube Feeding 322 / 322 387 / 387 Water Bolus Amount 100 / 100 Output: Urine 475 / 475 Urine Amount (Catheter) 700 / 700 Indwelling Urethral Catheter 700 / 700 Chest Tube Drainage 150 / 150 230 / 230 #1 Right Upper 25 / 25 10 / 10 #2 Right 25 / 25 60 / 60 #3 Right Upper 100 / 100 160 / 160 Other: Date of Last Bowel Movement 12/24/17 12/25/17 12/25/17 # Bowel Movements 1 2 12/17/17 15:55 Fluid - Pleural fluid Gram Stain - Final 12/17/17 15:55 Fluid - Pleural fluid Body Fluid Culture - Final Lactobacillus rhamnosus Grace glabrata Klebsiella pneumoniae 12/19/17 00:56 Fluid - Pleural fluid Gram Stain - Final 12/19/17 00:56 Fluid - Pleural fluid Body Fluid Culture - Final Grace glabrata Lactobacillus rhamnosus 12/19/17 00:30 Fluid - Pleural fluid Gram Stain - Final 12/19/17 00:30 Fluid - Pleural fluid Body Fluid Culture - Final Klebsiella pneumoniae Grace albicans Grace glabrata Lactobacillus rhamnosus 12/17/17 15:55 Other - Final Lab - Hematology Results 12/24/17 12/25/17 05:30 08:15 WBC 15.3 H 17.0 H RBC 2.36 L 2.46 L Hgb 7.5 L 7.8 L Hct 22.7 L 24.0 L MCV 96.2 97.8 MCH 31.9 31.8 MCHC 33.1 32.5 RDW 16.2 16.2 Plt Count 145 L 188 MPV 9.3 9.9 Prelim Diff (Auto) Slide review pending Neut % (Auto) 91.8 H Lymph % (Auto) 4.6 L [place] % (Auto) 3.5 Eos % (Auto) 0.0 Baso % (Auto) 0.1 Neut # (Auto) 14.1 H Lymph # (Auto) 0.7 L [place] # (Auto) 0.5 Eos # (Auto) 0.0 Baso # (Auto) 0.0 WBC Differential Manual diff final Seg Neuts % (Manual) 88 H Band Neuts % (Manual) 2 Lymphocytes % (Manual) 6 L Monocytes % (Manual) 1 Metamyelocytes % (Man) 2 H Myelocytes % (Man) 1 H Abs Neuts (Manual) 14.2 H Differential Comment . Platelet Estimate Low L Platelet Morphology Normal RBC Morphology Normal Lab - Chemistry Results 12/23/17 12/24/17 12/24/17 18:33 00:00 05:30 Sodium 145 Potassium 3.8 Chloride 111 H Carbon Dioxide 25.4 Anion Gap 9 BUN 18 Creatinine 0.50 Estimated GFR Greater than 89 POC Glucose 149 H 171 H Random Glucose 152 H Calcium 6.5 L* Prot Corrected Calcium 8.2 L Phosphorus 2.2 L Magnesium 1.8 Total Bilirubin AST ALT Alkaline Phosphatase Total Protein 3.9 L Albumin 12/24/17 12/24/17 12/24/17 05:31 11:32 17:06 Sodium Potassium Chloride Carbon Dioxide Anion Gap BUN Creatinine Estimated GFR POC Glucose 152 H 155 H 105 Random Glucose Calcium Prot Corrected Calcium Phosphorus Magnesium Total Bilirubin AST ALT Alkaline Phosphatase Total Protein Albumin 12/25/17 12/25/17 12/25/17 00:07 06:24 08:15 Sodium 145 Potassium 3.6 Chloride 110 H Carbon Dioxide 26.4 Anion Gap 9 BUN 16 Creatinine 0.46 L Estimated GFR Greater than 89 POC Glucose 181 H 165 H Random Glucose 146 H Calcium 6.4 L* Prot Corrected Calcium 8.1 L Phosphorus Magnesium Total Bilirubin 0.1 L AST 15 ALT 11 Alkaline Phosphatase 73 Total Protein 3.8 L Albumin 1.0 L 12/25/17 11:17 Sodium Potassium Chloride Carbon Dioxide Anion Gap BUN Creatinine Estimated GFR POC Glucose 142 H Random Glucose Calcium Prot Corrected Calcium Phosphorus Magnesium Total Bilirubin AST ALT Alkaline Phosphatase Total Protein Albumin Imaging: ITS Impressions Head CT 12/17/17 08:02 CONCLUSION: 1. 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 2. Otherwise negative. . Abdomen/Pelvis CT 12/17/17 10:45 CONCLUSION: 1. Moderate diffuse colonic wall thickening exaggerated by lack of colonic distention. This may be due to low-protein state/edema. However, differential considerations include infectious and inflammatory colitis. 2. Moderate-sized right hydropneumothorax with airspace disease in the lung bases as described on chest CT. 3. Additional ancillary findings, as above. Chest CT 12/21/17 04:03 CONCLUSION: 1. Moderate size right pneumothorax without tension. Also pneumopericardium and pneumomediastinum. Massive chest wall emphysema. 2. Bilateral airspace disease. 3.7 cm bilobed cavitary lesion of the right lower lobe. 3. Small left pleural effusion. No left pneumothorax. Chest X-Ray 12/23/17 13:34 CONCLUSION: 1. Interval placement of right internal jugular central venous line with no pneumothorax. 2. 3 right-sided chest tubes remain in place. 3. Interval improvement in subcutaneous emphysema. 4. The right costophrenic angle with consolidative opacity in the right lung base. Physical Exam: GENERAL: sedated int'd on mech vent'n SKIN: Warm and dry. NO rash HEAD: Atraumatic. Normocephalic. EYES: Pupils equal and round. No scleral icterus. No injection or drainage. ENT: No nasal bleeding or discharge. Mucous membranes pink and moist. NECK: Trachea midline. No JVD. CARDIOVASCULAR: Regular rate and rhythm. RESPIRATORY: No accessory muscle use. +extensive rhocnhi to auscultation. + Amphoric BS on R Breath sounds decreased bilaterally. CT x 3 R side with serosang d/c + airleak + SQ emphysema GASTROINTESTINAL: Abdomen soft, non-tender, distended. Hepatic and splenic margins not palpable. MUSCULOSKELETAL: Extremities without clubbing, cyanosis, 2+ edema. No obvious deformities. NEUROLOGICAL: sedated, unresponsive PSYCHIATRIC: unable to assess Assessment and Plan - Plan GPC bacteremia, 1/4 with coag neg staph and vir strep: cw pseudobacteremia BP fistula pleural fluid with C glabrata, Kleb, Lactobac - S PCN. 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
[2017-12-25] MEDS: Piperacil/Tazo 4.5 GM Premix 4.5 GM/100 ML BAG IV.SIG SCH ×2 (17:35→22:44)
[2017-12-25] MEDS: Micafungin Inj 150 MG in Sodium Chlor 0.9% Inj 100 ML IV.SIG SCH (17:59)
[2017-12-25] MEDS ORDERED: Epoprostenol (30,000/mL) Neb 45 ML in Sodium Chlor 0.9% Inj 55 ML NEB SCH (20:00)
[2017-12-25] MEDS: QUEtiapine 25 MG Tablet PO SCH (20:01)
[2017-12-26] MEDS: Insulin NovoLOG Aspart Correctional Sugar Inj SQ SCH ×2 (00:25→06:26)
[2017-12-26] MEDS: Oral Hygiene Kit OROPHARYNG SCH ×4 (00:26→19:24)
[2017-12-26] MEDS: Propofol 1000 mg/100 ml Inj 1,000 MG/100 ML BOTTLE IV.CONT PRN ×3 (03:50→19:16)
[2017-12-26] MEDS: Piperacil/Tazo 4.5 GM Premix 4.5 GM/100 ML BAG IV.SIG SCH ×4 (04:47→22:05)
--- NOTE | 2017-12-26 04:50 | XR ---
EXAM DATE: 12/26/2017 4:32 AM EDT AGE/SEX: 62 years / Female INDICATIONS: Shortness of breath, possible pneumothorax. CLINICAL DATA: This is the patient's subsequent encounter. Patient reports that signs and symptoms h ave been present for 2 weeks and indicates a pain score of Nonresponsive. MEDICAL/SURGICAL HISTORY: Hypertension. Chest tube, left. Chest tube, right. COMPARISON: [facility] – [place], CHEST 1V SINGLE AP, 12/23/2017. . FINDINGS: Endotracheal tube, nasogastric tube, right neck central line and right thoracostomy tubes are stable. Persistent diffuse bilateral pleural-parenchymal lung opacity. Accounting for rotation, cardiac cont ours are grossly unchanged. Interval decrease in subcutaneous emphysema. CONCLUSION: Decreasing subcutaneous emphysema. Otherwise no change. Electronically signed by: Pato Cruz MD 12/26/2017 4:49 AM EDT
[2017-12-26] MEDS: Midazolam 50 MG/50 ML Inj 50 MG/50 ML BAG IV.CONT PRN (05:02)
[2017-12-26] MEDS: fentaNYL 10 mcg/mL Premix Drip 2,500 MCG/250 ML BAG IV.SIG PRN ×2 (05:02→14:51)
[2017-12-26] MEDS: Heparin - SQ 10,000 UNITS/ML Vial SQ SCH ×3 (05:03→22:05)
[2017-12-26] MEDS: Hydrocortisone Sod Succinate 100 MG Vial IV.PUSH SCH ×3 (05:04→19:27)
[2017-12-26] MEDS: Epoprostenol (30,000/mL) Neb 30 ML in Sodium Chlor 0.9% Inj 70 ML NEB SCH ×2 (06:25→13:56)
[2017-12-26] MEDS: Sodium Bicarbonate 8.4% Inj 100 MEQ in Dextrose 5% in Water Inj 900 ML IV.CONT SCH ×2 (07:24)
[2017-12-26] MEDS: Famotidine 20 MG Tablet PO SCH ×2 (09:35→22:06)
[2017-12-26] MEDS: Polyethylene Glycol 3350 17 GM Packet PO SCH ×2 (09:36→21:05)
[2017-12-26] MEDS: Senna/Docusate Sodium 8.6/50 MG Tablet PO SCH ×2 (09:36→21:05)
[2017-12-26] MEDS: Chlorhexidine 0.12% Oral Kit 15 ML UDC OROPHARYNG SCH ×2 (09:37→21:05)
--- NOTE | 2017-12-26 09:41 | P.PNCC ---
Subjective Subjective Remarks/Hospital Course: This is a 62yF who was originally admitted on 11/23 with a diagnosis of colitis, found to have enterovirus. discharged on 12/11 at that time on PO vancomycin, but came back on 12/13 with altered mental status and hypoglycemia, again discharged on 12/15. She was mildly fatigued on 12/16 according to her and asked to wait another day before traveling back to her home in [place]. This morning, she was unarousable and her called 911. She was intubated upon arrival to the emergency department for agonal respirations. CXR demonstrates bilateral multifocal pneumonia. She is febrile, hypotensive. CVL placed in the ER and vasopressors initiated after 2L bolus crystalloid. CT chest/abd/pelvis demonstrates right pneumothorax, densely consolidated right lower lobe, bilateral pulmonary infiltrates, evidence of ongoing colitis. Patient continue to be unstable. Immediately after identifying ptx on CT scan, I emergently placed right chest tube with some improvements in hemodynamics, but ongoing distributive shock persists. I placed arterial line. No additional information available from the patient, ROS unobtainable. In discussion with the , she has not had any new complaints in the 48h she was home, and other than mild fatigue last night, no new complaints. She was able to walk to the bathroom without assistance yesterday. 12/18: shock remains. now on levophed, vasopressin, phenylephrine. second chest tube placed overnight for worsening SQ air. acidosis remains and is severe. 12/19: Afebrile. Remains on vasopressin drip only. On stress dose hydrocortisone. Evaluated by CT surgery. Not a candidate for intervention at the present time. Chest tube continues to leak. Epoprostenol added today 12/20: Afebrile. FiO2 has decreased and is currently 70%. Currently replacing potassium, phosphorus and magnesium. Recheck later this afternoon. Less chest tube leak today down to 1 chamber. 12/21: Overnight, worsening subcutaneous emphysema. A third chest tube placed by overnight reinforcing bar setter after discussion with cardiothoracic surgery. Currently hemodynamically stable. Replacing phosphorus today. To be evaluated by CT surgery today. 12/22: Remains sedated, orally intubated on mechanical ventilation. Persistent air leak and chest tube noted. 12/23: Remains sedated, orally intubated on mechanical ventilation. Air leak persists though slightly improved. PEEP at +5 FiO2 55%, inhaled Flolan continues. Central line replaced with right IJ triple-lumen catheter. 12/24: Remains sedated, orally intubated on mechanical ventilation. 1+ air leak from chest tube 3 noted. PEEP +5, FiO2 60%, inhaled Flolan continues. Decreasing subcutaneous emphysema noted. 12/25: Remains sedated, orally improved on mechanical ventilation. 1+ for leak from chest tube 2. PEEP +5, FiO2 50%. Starting to titrate inhaled Flolan down today. Initiating Lasix to mobilize fluid. SUBJECTIVE: 12/26: remains intubated. air leak continues from chest tube #3. drainage out of #1 and #2 are very serous. #1 was removed by myself today. all chest tube dressings changed by me today. repeat CXR pending. very volume overloaded. starting to diurese. off vasopressors. off pathway: still high fio2 requirements. Objective Vital Signs / I&O: Vital Signs 12/25/17 10:00 12/25/17 11:00 12/25/17 11:10 Temperature Pulse Rate 79 93 H 83 Respiratory Rate 13 25 H 19 Blood Pressure 97/65 L 95/60 L Pulse Oximetry 95 77 L 92 L 12/25/17 12:00 12/25/17 13:00 12/25/17 14:00 Temperature 37.1 C Pulse Rate 86 80 75 Respiratory Rate 24 21 22 Blood Pressure 104/66 98/60 L 108/69 Pulse Oximetry 93 L 93 L 94 L 12/25/17 15:00 12/25/17 16:00 12/25/17 16:05 Temperature 37.1 C Pulse Rate 90 87 87 Respiratory Rate 27 H 18 18 Blood Pressure 112/72 109/67 Pulse Oximetry 92 L 93 L 94 L 12/25/17 17:00 12/25/17 18:00 12/25/17 19:00 Temperature Pulse Rate 84 96 H 96 H Respiratory Rate 18 38 H 26 H Blood Pressure 103/59 L 104/66 106/68 Pulse Oximetry 92 L 92 L 92 L 12/25/17 20:00 12/25/17 20:20 12/25/17 21:00 Temperature 37.1 C Pulse Rate 92 H 93 H 93 H Respiratory Rate 24 18 20 Blood Pressure 107/66 101/62 Pulse Oximetry 94 L 96 93 L 12/25/17 22:00 12/25/17 23:00 12/25/17 23:44 Temperature Pulse Rate 96 H 93 H 92 H Respiratory Rate 18 21 18 Blood Pressure 105/62 88/52 L Pulse Oximetry 97 98 12/26/17 00:00 12/26/17 01:00 12/26/17 02:00 Temperature 36.5 C Pulse Rate 91 H 98 H 90 Respiratory Rate 14 27 H 24 Blood Pressure 91/57 L 132/79 107/62 Pulse Oximetry 96 92 L 95 12/26/17 03:00 12/26/17 03:25 12/26/17 03:26 Temperature Pulse Rate 76 79 Respiratory Rate 18 18 18 Blood Pressure 109/63 Pulse Oximetry 95 94 L 12/26/17 04:00 12/26/17 05:00 12/26/17 06:00 Temperature 36.4 C L Pulse Rate 90 82 95 H Respiratory Rate 24 17 30 H Blood Pressure 112/67 104/58 L 101/65 Pulse Oximetry 93 L 95 97 12/26/17 07:00 Temperature Pulse Rate 81 Respiratory Rate 18 Blood Pressure Pulse Oximetry 94 L Intake & Output 12/25/17 12/26/17 12/26/17 18:59 06:59 18:59 Intake Total 2240 / 2240 2740 / 2740 1000 / 1000 Output Total 750 / 750 1380 / 1380 Balance 1490 / 1490 1360 / 1360 1000 / 1000 Weight 104.1 kg Intake: IV 2240 / 2240 2250 / 2250 1000 / 1000 Versed Inj 50 mg In 50 ml @ 2 100 / 100 100 / 100 MG/HR 2 mls/hr IV.CONT TITRATE PRN Rx#:[id number] Diprivan 1000 mg/100 ml Inj 1, 200 / 200 200 / 200 000 mg In 100 ml @ 5 MCG/KG/MIN 2.904 mls/hr IV.CONT TITRATE PRN Rx#:[id number] Sodium Bicarbonate 8.4% Inj 100 1000 / 1000 1000 / 1000 1000 / 1000 MEQ In D5W Inj 900 ML @ 30 mls /hr IV.CONT .Q24H [facility] Rx#: [id number] Maxipime Inj 2,000 MG In NS Inj 100 / 100 100 ML @ 200 mls/hr IV.SIG Q8H [facility] Rx#:[id number] Mycamine Inj 150 MG In NS Inj 100 / 100 100 ML @ 100 mls/hr IV.SIG Q24H [facility] Rx#:[id number] Zosyn 4.5 GM Premix 4.5 gm In 100 / 100 200 / 200 100 ml @ 200 mls/hr IV.SIG Q6H [facility] Rx#:[id number] Vancomycin Inj 1,500 MG In NS 515 / 515 Inj 500 ML @ 250 mls/hr IV.SIG Q24H [facility] Rx#:[id number] fentaNYL 10 mcg/mL Premix Drip 125 / 125 500 / 500 2,500 mcg In 250 ml @ 50 MCG/HR 5 mls/hr IV.SIG TITRATE PRN Rx #:[id number] Flagyl 500 MG Inj 100 ML @ 100 100 / 100 mls/hr IV.SIG Q6HR [facility] Rx#: [id number] Flolan (30,000 ng/mL) Neb 45 ML 100 / 100 In NS Inj 55 ML @ 5 mls/hr NEB Q8H [facility] Rx#:[id number] Oral 0 / 0 Tube Feeding 390 / 390 Tube Irrigant 100 / 100 Output: Urine Amount (Catheter) 750 / 750 950 / 950 Indwelling Urethral Catheter 750 / 750 950 / 950 Chest Tube Drainage 430 / 430 #1 Right Upper 250 / 250 #2 Right 110 / 110 #3 Right Upper 70 / 70 Other: Date of Last Bowel Movement 12/25/17 12/25/17 # Bowel Movements 5 # Incontinent Bowel Movements 5 Result Diagrams: 12/25/17 08:15 12/25/17 08:15 Objective Remarks: GENERAL: 62-year-old middle-aged female, lying in bed, intubated, sedated, critically ill. HEENT: Normocephalic. Atraumatic. Pupils equal, round, reactive, conjugate. Positive left scleral edema. There is subcu air. Mucous membranes are moist NECK: Trachea is midline. Significant subcu edema CHEST: Equal chest rise. PRVC. 55% FiO2, PEEP +5. 3 right-sided chest tubes, one with 3 + air leak. Significant bilateral subcutaneous edema CARDIOVASCULAR: normal rate, regular rhythm. sinus. ABDOMEN: Soft, nontender, nondistended. No guarding. MUSCULOSKELETAL: Pulses 2+. gross anasarca. 3+ edema grossly. NEUROLOGICAL: RASS -3. Withdraws to pain x4. Does not follow commands. Assessment and Plan - Assessment and Plan Plan: Assessment: 62yF with HCAP pneumonia, bacteremia, and bleb rupture causing significant persistent air leak. remains with hypoxic respiratory failure. aggressive diuresis efforts. at some point will likely require VATS apical blebectomy, but remains likely too ill for this. remains very critically ill and off pathway. Neuro/Psych: Acute metabolic encephalopathy Possible seizure disorder Currently on midazolam/fentany/ propofol drips for sedation/analgesia while intubated d/c midazolam daily sedation vacation. goal RASS -2 She was started on anticonvulsants on her initial admission 11/23. Valproic acid 500 mg 3 times daily. Check level was 40 12/[address] 12/17- for acute disease EEG - Diffuse slowing consistent with a moderate diffuse encephalopathy. No epileptiform activity Acetaminophen 650 by tube every 6 hours as needed fever Continue quetiapine 25 mg daily/home medication Holding tizanidine 4 mg daily Respiratory: Acute hypoxic and hypercarbic respiratory failure- persistent Acute severe bilateral multifocal healthcare associated pneumonia Possible aspiration pneumonia Spontaneous right-sided tension pneumothorax Subcutaneous Emphysema Chest tube #1: 12/17- removed 12/26 Chest tube #2: overnight 12/17 Chest tube #3: 12/19 CT surgery/Dr. Lynn following CT thorax overnight 12/12 revealed significant 3.7 cm moderate right pneumothorax without tension. Pneumopericardium and significant subcutaneous emphysema. Vent bundle PRVC mode, peep 5. Epoprostenol aerosolized added 12/19, titrated down to 20ng/kg/min yesterday. will attempt to wean off today. Head of bed elevated Albuterol/ipratropium aerosols every 4 hours with albuterol aerosols every 2 hours as needed dyspnea Wean FiO2 for goal SPO2 greater than 90% AM CXR Cardiovascular: Septic shock- resolved Elevated troponin Type II NSTEMI secondary to demand ischemia Hyperlipidemia Holding lisinopril 30 mg daily/home medication. Resume pravastatin 80 mg daily when clinically indicated .stress dose hydrocortisone 100 mg IV every 8 hours: start hydrocortisone wean increase lasix to 80mg iv q6h Renal: Acute kidney injury (resolved) Secondary to shock, off pressors continue Read Frequent urine output monitoring Daily creatinine KVO IV fluid. Lasix to mobilize fluid -- Strict I/Os FEN/GI: Acute protein calorie malnutritionmoderate Lactic acidosis- resolving. Severe colitis Enterovirus colitis C. difficile colitis Hyperammonemia Acute hypophosphatemia Acute hypernatremia Currently on lactulose [address] orogastric tube to low intermittent wall suction Tube feeding with vital 1.5 goal 55 cc now. Metoclopramide 1 mg 3 times daily ICU electrolyte protocol Daily BMP, magnesium, phosphorus Trend lactates Lactulose/polythene glycol twice daily Holding dicyclomine 20 mg 3 times daily d/c bicarb drip Heme/ID: C. difficile colitis Enterovirus colitis Septic shock Healthcare associated multifocal pneumonia Possible gram-positive cocci bacteremia Early empyema Vancomycin IV/p.o. with pharmacy dosing Cefepime, metronidazole, azithromycin and micafungin Bronchoscopy 12/19 with gram-negative rods Pleural fluid 12/19 with gram-negative rods Pleural fluid 12/17 -g Karla albicans/glabrata Klebsiella, gram-positive rods 12/17 -sputum -Klebsiella 12/17 blood-strep viridians/coag negative staph Infectious disease consulted and following. Endocrine: Acute hypoglycemia- resolving. Sliding scale insulin Accu-Cheks every 6 hours to maintain euglycemia Prophylaxis: GI Prophylaxis Famotidine DVT Prophylaxis -- SCDs Subcu heparin Lines: 12/23: RIJ central line placed 12/23 12/17 femoral triple-lumen catheter discontinued 12/23 12/17 right radial arterial line discontinued 12/21 12/17 right 28 Latv[place] chest tube to -40 cm suction: removed 12/26 12/17 right 32 Latvian chest tube to -40 cm suction 12/19 -right #32 Latvian chest tube to -40 cm suction 12/17 Jacek Updated patient's regarding current clinical status and plan of care and he voiced understanding and was agreeable. Critical care time 35 minutes excluding procedures
[2017-12-26] MEDS ORDERED: Hydrocortisone Sod Succinate 100 MG Vial IV.PUSH SCH (10:58)
--- NOTE | 2017-12-26 11:35 | XR ---
EXAM DATE: 12/26/2017 11:32 AM EDT AGE/SEX: 62 years / Female INDICATIONS: Respiratory failure. Interval removal of chest tube. CLINICAL DATA: This is the patient's subsequent encounter. Patient reports that signs and symptoms h ave been present for 1 day and indicates a pain score of Nonresponsive. MEDICAL/SURGICAL HISTORY: . Hypertension. Chest tube, left. Chest tube, right. . COMPAR[place]: [facility] [place]ST 1V SINGLE AP, 12/26/2017. . FINDINGS: Single AP view the chest. Endotracheal tube, nasogastric tube, right IJ central venous catheter, and right-sided chest tubes remain in place. Hazy opacity in the lungs bilaterally unchanged. The patient is rotated into an [place] position. No gross evidence of pneumothorax. Cardiomediastinal silhouette unc hanged. CONCLUSION: 1. Lines and tubes remain in place. 2. No significant interval change with persistent mild diffuse bilateral pulmonary opacity. Electronically signed by: Jerry Fonseca MD 12/26/2017 11:34 AM EDT
--- NOTE | 2017-12-26 11:45 | P.PNCV ---
- Note Subjective/Hospital Course: pt now has 3 right sided chest tube #3 has 2-3 = air leak , #2 +1 all to 40cm suction pt now off pressors remains sedated on vent 55% fio2 +8 peep may need to re-eval for repeat ct scan in am pt will not tolerate one lung ventilation at this during any surgery will continue to monitor 12/23 pt now on 75% Fi02 peep down to 5 , no on flolan sub q emphysema with some improvement chest x 3 apical #3 +2 continuous air leak mid #2 + 1 air leak lower #1 no air leak all to 40 cm suction will monitor 12/26 Hemodynamically and clinically better One chest tube removed. 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 once clinically more stable We will continue to follow Objective: Vital Signs - 24 hr 12/25/17 12:00 12/25/17 13:00 12/25/17 14:00 Temperature 98.8 F Pulse Rate 86 80 75 Respiratory Rate 24 21 22 Blood Pressure 104/66 98/60 L 108/69 Pulse Oximetry 93 L 93 L 94 L 12/25/17 15:00 12/25/17 16:00 12/25/17 16:05 Temperature 98.7 F Pulse Rate 90 87 87 Respiratory Rate 27 H 18 18 Blood Pressure 112/72 109/67 Pulse Oximetry 92 L 93 L 94 L 12/25/17 17:00 12/25/17 18:00 12/25/17 19:00 Temperature Pulse Rate 84 96 H 96 H Respiratory Rate 18 38 H 26 H Blood Pressure 103/59 L 104/66 106/68 Pulse Oximetry 92 L 92 L 92 L 12/25/17 20:00 12/25/17 20:20 12/25/17 21:00 Temperature 98.8 F Pulse Rate 92 H 93 H 93 H Respiratory Rate 24 18 20 Blood Pressure 107/66 101/62 Pulse Oximetry 94 L 96 93 L 12/25/17 22:00 12/25/17 23:00 12/25/17 23:44 Temperature Pulse Rate 96 H 93 H 92 H Respiratory Rate 18 21 18 Blood Pressure 105/62 88/52 L Pulse Oximetry 97 98 12/26/17 00:00 12/26/17 01:00 12/26/17 02:00 Temperature 97.7 F Pulse Rate 91 H 98 H 90 Respiratory Rate 14 27 H 24 Blood Pressure 91/57 L 132/79 107/62 Pulse Oximetry 96 92 L 95 12/26/17 03:00 12/26/17 03:25 12/26/17 03:26 Temperature Pulse Rate 76 79 Respiratory Rate 18 18 18 Blood Pressure 109/63 Pulse Oximetry 95 94 L 12/26/17 04:00 12/26/17 05:00 12/26/17 06:00 Temperature 97.5 F L Pulse Rate 90 82 95 H Respiratory Rate 24 17 30 H Blood Pressure 112/67 104/58 L 101/65 Pulse Oximetry 93 L 95 97 12/26/17 07:00 12/26/17 10:06 12/26/17 11:03 Temperature Pulse Rate 81 99 H Respiratory Rate 18 19 24 Blood Pressure Pulse Oximetry 94 L 96 Labs: Laboratory Results - last 12 hr 12/26/17 12/26/17 00:14 06:24 POC Glucose 190 H 156 H Result Diagrams: 12/25/17 08:15 12/25/17 08:15 - Plan (1) Respiratory failure Plan: pt still requiring high flow 02 would not tolerate one lung ventilation for surgery (2) Pneumonia (1) Respiratory failure Qualifiers: Chronicity: acute Respiratory failure complication: hypoxia and hypercapnia Qualified Code(s): J96.01 - Acute respiratory failure with hypoxia; J96.02 - Acute respiratory failure with hypercapnia (2) Pneumonia Qualifiers: Pneumonia type: due to unspecified organism Laterality: bilateral Lung location: unspecified part of lung Qualified Code(s): J18.9 - Pneumonia, unspecified organism
[2017-12-26] MEDS: Insulin NovoLIN Regular Correctional Sugar Inj SQ SCH ×2 (12:53→19:27)
[2017-12-26] MEDS: Carboxymethylcellulose 0.5% Opth Drops 15 ML Bottle EACH EYE SCH ×2 (13:56→22:07)
[2017-12-26] MEDS: Micafungin Inj 150 MG in Sodium Chlor 0.9% Inj 100 ML IV.SIG SCH (19:25)
[2017-12-26 21:12] LABS: Hematocrit 26.9 % (35.0-46.0); Hemoglobin 8.7 gm/dL (11.6-15.3); Mean Corpuscular HGB Conc 32.5 % (32.0-36.0); Mean Corpuscular Hemoglobin 30.9 pg (27.0-34.0); Mean Platelet Volume 9.5 fL (7.0-11.0); Platelet Count 309 th/mm3 (150-450); Red Blood Count 2.83 mil/mm3 (4.00-5.30); Red Cell Distribution Width 15.9 % (11.6-17.2)
[2017-12-26 22:01] LABS: Anion Gap 9 meq/L (5-15)
[2017-12-26 22:02] LABS: Alanine Aminotransferase 12 U/L (10-53); Albumin 1.2 g/dL (3.4-5.0); Alkaline Phosphatase 80 U/L (45-117); Aspartate Aminotransferase 19 U/L (15-37); Blood Urea Nitrogen 16 mg/dL (7-18); Calcium 6.6 mg/dL (8.5-10.1); Carbon Dioxide 32.2 meq/L (21.0-32.0); Chloride 103 meq/L (98-107); Glomerular Filtration Rate Greater Than 89 mL/min (>89); Glucose,Random 133 mg/dL (74-106); Magnesium 1.4 mg/dL (1.5-2.5); Phosphorus 2.7 mg/dL (2.5-4.9); Prealbumin 23 mg/dL (20-40); Sodium 144 meq/L (136-145); Total Protein 4.4 g/dL (6.4-8.2)
[2017-12-26 22:06] LABS: Potassium 2.8 meq/L (3.5-5.1)
[2017-12-26] MEDS: QUEtiapine 25 MG Tablet PO SCH (22:06)
[2017-12-26] MEDS: Potassium Chlor 40 mEq Premix 40 MEQ/100 ML PIGGYBACK IV.SIG PRN (22:29)
[2017-12-27] MEDS: Propofol 1000 mg/100 ml Inj 1,000 MG/100 ML BOTTLE IV.CONT PRN ×4 (00:11→18:38)
[2017-12-27] MEDS: fentaNYL 10 mcg/mL Premix Drip 2,500 MCG/250 ML BAG IV.SIG PRN ×3 (00:11→19:17)
[2017-12-27] MEDS: Hydrocortisone Sod Succinate 100 MG Vial IV.PUSH SCH ×4 (00:12→18:38)
[2017-12-27] MEDS: Potassium Chlor 40 mEq Premix 40 MEQ/100 ML PIGGYBACK IV.SIG PRN ×2 (01:45→06:06)
[2017-12-27] MEDS: Epoprostenol (30,000/mL) Neb 30 ML in Sodium Chlor 0.9% Inj 70 ML NEB SCH ×3 (02:28→11:20)
[2017-12-27] MEDS: Oral Hygiene Kit OROPHARYNG SCH ×4 (02:30→15:00)
[2017-12-27] MEDS: Insulin NovoLIN Regular Correctional Sugar Inj SQ SCH ×4 (02:31→18:39)
[2017-12-27] MEDS: Piperacil/Tazo 4.5 GM Premix 4.5 GM/100 ML BAG IV.SIG SCH ×4 (04:43→21:42)
[2017-12-27 04:56] LABS: Hemoglobin 8.2 gm/dL (11.6-15.3); Mean Corpuscular HGB Conc 32.9 % (32.0-36.0); Mean Corpuscular Hemoglobin 31.6 pg (27.0-34.0); Mean Corpuscular Volume 95.8 fL (80.0-100.0); Mean Platelet Volume 9.5 fL (7.0-11.0); Platelet Count 324 th/mm3 (150-450); Red Cell Distribution Width 15.7 % (11.6-17.2); White Blood Count 24.9 th/mm3 (4.0-11.0)
[2017-12-27 05:33] LABS: Anion Gap 8 meq/L (5-15); Blood Urea Nitrogen 17 mg/dL (7-18); Calcium 6.5 mg/dL (8.5-10.1); Carbon Dioxide 34.5 meq/L (21.0-32.0); Chloride 103 meq/L (98-107); Glomerular Filtration Rate Greater Than 89 mL/min (>89); Glucose,Random 105 mg/dL (74-106); Magnesium 1.4 mg/dL (1.5-2.5); Phosphorus 2.7 mg/dL (2.5-4.9); Sodium 145 meq/L (136-145)
[2017-12-27 05:37] LABS: Potassium 2.8 meq/L (3.5-5.1)
[2017-12-27 05:50] LABS: Calcium-Albumin Corrected 7.9 mg/dL (8.5-10.1); Total Protein 4.3 g/dL (6.4-8.2)
--- NOTE | 2017-12-27 06:04 | XR ---
EXAM DATE: 12/27/2017 6:01 AM EST AGE/SEX: 62 years / Female INDICATIONS: Respiratory failure. CLINICAL DATA: This is the patient's subsequent encounter. Patient reports that signs and symptoms h ave been present for 4 - 6 days and indicates a pain score of Nonresponsive. MEDICAL/SURGICAL HISTORY: Non-responsive. Non-responsive. COMPARISON: [facility], CHEST 1V SINGLE AP, 12/26/2017. . FINDINGS: Endotracheal tube, nasogastric tube and right thoracostomy tubes are again noted. Right neck central line descends into SVC. Bilateral fairly diffuse pleural-parenchymal opacity is grossly unchanged. Vi sualized cardiac contours are unchanged. CONCLUSION: Stable chest appearance Electronically signed by: Pato Cruz MD 12/27/2017 6:03 AM EST
[2017-12-27] MEDS: Heparin - SQ 10,000 UNITS/ML Vial SQ SCH ×3 (06:05→21:41)
[2017-12-27] MEDS ORDERED: Potassium Chloride 25 MEQ Effervescent Tablet PO SCH (07:00)
[2017-12-27] MEDS: Senna/Docusate Sodium 8.6/50 MG Tablet PO SCH ×2 (10:01→21:42)
[2017-12-27] MEDS: Chlorhexidine 0.12% Oral Kit 15 ML UDC OROPHARYNG SCH ×2 (10:02→21:42)
[2017-12-27] MEDS: Carboxymethylcellulose 0.5% Opth Drops 15 ML Bottle EACH EYE SCH ×2 (10:02→21:42)
[2017-12-27] MEDS: Famotidine 20 MG Tablet PO SCH ×2 (10:09→21:41)
[2017-12-27] MEDS: Polyethylene Glycol 3350 17 GM Packet PO SCH ×2 (10:26→21:42)
--- NOTE | 2017-12-27 18:01 | P.PNCC ---
Subjective Subjective Remarks/Hospital Course: This is a 62yF who was originally admitted on 11/23 with a diagnosis of colitis, found to have enterovirus. discharged on 12/11 at that time on PO vancomycin, but came back on 12/13 with altered mental status and hypoglycemia, again discharged on 12/15. She was mildly fatigued on 12/16 according to her and asked to wait another day before traveling back to her home in [place]. This morning, she was unarousable and her called 911. She was intubated upon arrival to the emergency department for agonal respirations. CXR demonstrates bilateral multifocal pneumonia. She is febrile, hypotensive. CVL placed in the ER and vasopressors initiated after 2L bolus crystalloid. CT chest/abd/pelvis demonstrates right pneumothorax, densely consolidated right lower lobe, bilateral pulmonary infiltrates, evidence of ongoing colitis. Patient continue to be unstable. Immediately after identifying ptx on CT scan, I emergently placed right chest tube with some improvements in hemodynamics, but ongoing distributive shock persists. I placed arterial line. No additional information available from the patient, ROS unobtainable. In discussion with the , she has not had any new complaints in the 48h she was home, and other than mild fatigue last night, no new complaints. She was able to walk to the bathroom without assistance yesterday. 12/18: shock remains. now on levophed, vasopressin, phenylephrine. second chest tube placed overnight for worsening SQ air. acidosis remains and is severe. 12/19: Afebrile. Remains on vasopressin drip only. On stress dose hydrocortisone. Evaluated by CT surgery. Not a candidate for intervention at the present time. Chest tube continues to leak. Epoprostenol added today 12/20: Afebrile. FiO2 has decreased and is currently 70%. Currently replacing potassium, phosphorus and magnesium. Recheck later this afternoon. Less chest tube leak today down to 1 chamber. 12/21: Overnight, worsening subcutaneous emphysema. A third chest tube placed by overnight datastage developer after discussion with cardiothoracic surgery. Currently hemodynamically stable. Replacing phosphorus today. To be evaluated by CT surgery today. 12/22: Remains sedated, orally intubated on mechanical ventilation. Persistent air leak and chest tube noted. 12/23: Remains sedated, orally intubated on mechanical ventilation. Air leak persists though slightly improved. PEEP at +5 FiO2 55%, inhaled Flolan continues. Central line replaced with right IJ triple-lumen catheter. 12/24: Remains sedated, orally intubated on mechanical ventilation. 1+ air leak from chest tube 3 noted. PEEP +5, FiO2 60%, inhaled Flolan continues. Decreasing subcutaneous emphysema noted. 12/25: Remains sedated, orally improved on mechanical ventilation. 1+ for leak from chest tube 2. PEEP +5, FiO2 50%. Starting to titrate inhaled Flolan down today. Initiating Lasix to mobilize fluid. SUBJECTIVE: 12/26: remains intubated. air leak continues from chest tube #3. drainage out of #1 and #2 are very serous. #1 was removed by myself today. all chest tube dressings changed by me today. repeat CXR pending. very volume overloaded. starting to diurese. off vasopressors. off pathway: still high fio2 requirements. 12/27: good diuresis overnight. very hypokalemic today and aggressively replacing. CXR unchanged. air leak unchanged. long discussion over long-term and short-term prognosis and plan of care with entire family today. all questions answered. Objective Vital Signs / I&O: Vital Signs 12/26/17 19:00 12/26/17 20:00 12/26/17 21:00 Temperature 37.6 C Pulse Rate 82 84 114 H Respiratory Rate 18 19 35 H Blood Pressure 97/57 L 105/62 131/73 Pulse Oximetry 97 96 89 L 12/26/17 21:01 12/26/17 22:00 12/26/17 22:09 Temperature Pulse Rate 113 H 98 H 102 H Respiratory Rate 31 H 18 24 Blood Pressure 131/73 101/61 108/61 Pulse Oximetry 93 L 97 97 12/26/17 22:28 12/26/17 22:30 12/26/17 23:00 Temperature Pulse Rate 104 H 103 H 99 H Respiratory Rate 19 17 17 Blood Pressure 106/61 102/59 L Pulse Oximetry 97 97 12/26/17 23:30 12/27/17 00:00 12/27/17 00:30 Temperature 37.6 C Pulse Rate 97 H 93 H 114 H Respiratory Rate 18 18 23 Blood Pressure 93/52 L 95/54 L 115/76 Pulse Oximetry 96 96 96 12/27/17 01:05 EDT 11/04/18 01:00 EST 12/27/17 01:30 EST Temperature Pulse Rate 91 H 92 H 85 Respiratory Rate 18 10 L 6 L Blood Pressure 91/59 L 91/56 L Pulse Oximetry 96 97 96 12/27/17 02:00 12/27/17 02:30 12/27/17 03:00 Temperature Pulse Rate 82 104 H 107 H Respiratory Rate 5 L 28 H 17 Blood Pressure 96/58 L 99/60 L Pulse Oximetry 96 96 94 L 12/27/17 04:00 12/27/17 04:47 12/27/17 05:00 Temperature 37.7 C H Pulse Rate 102 H 100 H 97 H Respiratory Rate 18 21 15 Blood Pressure 99/60 L 87/54 L Pulse Oximetry 95 95 96 12/27/17 06:00 12/27/17 07:00 12/27/17 08:00 Temperature 37.3 C Pulse Rate 103 H 105 H 101 H Respiratory Rate 17 23 19 Blood Pressure 109/72 97/62 L Pulse Oximetry 93 L 96 97 12/27/17 10:00 12/27/17 11:15 12/27/17 12:00 Temperature 36.6 C Pulse Rate 97 H 93 H 83 Respiratory Rate 19 18 Blood Pressure 97/65 L Pulse Oximetry 99 100 12/27/17 13:13 12/27/17 14:00 12/27/17 14:37 Temperature Pulse Rate 97 H 97 H Respiratory Rate 18 18 Blood Pressure Pulse Oximetry 97 Intake & Output 12/26/17 12/27/17 12/27/17 19:59 06:59 18:59 Intake Total 650 / 650 Output Total Balance 650 / 650 Weight Intake: IV 650 / 650 Diprivan 1000 mg/100 ml Inj 1, 100 / 100 000 mg In 100 ml @ 5 MCG/KG/MIN 2.904 mls/hr IV.CONT TITRATE PRN Rx#:[id number] Mycamine Inj 150 MG In NS Inj 100 ML @ 100 mls/hr IV.SIG Q24H [facility] Rx#:[id number] Zosyn 4.5 GM Premix 4.5 gm In 100 / 100 100 ml @ 200 mls/hr IV.SIG Q6H [facility] Rx#:[id number] KCl 40 mEq Premix Inj 40 meq In 100 / 100 100 ml @ 25 mls/hr IV.SIG Q2H PRN Rx#:[id number] fentaNYL 10 mcg/mL Premix Drip 250 / 250 2,500 mcg In 250 ml @ 50 MCG/HR 5 mls/hr IV.SIG TITRATE PRN Rx #:[id number] Flolan (30,000 ng/mL) Neb 30 ML 100 / 100 In NS Inj 70 ML @ 5 mls/hr NEB Q8H [facility] Rx#:[id number] Oral Tube Feeding Tube Irrigant Output: Urine Amount (Catheter) Indwelling Urethral Catheter Chest Tube Drainage #2 Right #3 Right Upper Other: Date of Last Bowel Movement 12/25/17 # Bowel Movements Result Diagrams: 12/27/17 04:20 12/27/17 12:00 Objective Remarks: GENERAL: 62-year-old middle-aged female, lying in bed, intubated, sedated, critically ill. HEENT: Normocephalic. Atraumatic. Pupils equal, round, reactive, conjugate. Positive left scleral edema. There is subcu air. Mucous membranes are moist NECK: Trachea is midline. CHEST: Equal chest rise. PRVC. 55% FiO2, PEEP +5. 2 right-sided chest tubes, one with 2+ air leak. improving SQ air. CARDIOVASCULAR: normal rate, regular rhythm. sinus. ABDOMEN: Soft, nontender, nondistended. No guarding. MUSCULOSKELETAL: Pulses 2+. gross anasarca. 3+ edema grossly. NEUROLOGICAL: RASS -3. Withdraws to pain x4. Does not follow commands. Assessment and Plan - Assessment and Plan Plan: Assessment: 62yF with HCAP pneumonia, bacteremia, and bleb rupture causing significant persistent air leak. remains with hypoxic respiratory failure. aggressive diuresis efforts. at some point will likely require VATS apical blebectomy, but remains likely too ill for this. remains very critically ill and off pathway. Neuro/Psych: Acute metabolic encephalopathy Possible seizure disorder Currently on fentany/ propofol drips for sedation/analgesia while intubated daily sedation vacation. goal RASS -2 She was started on anticonvulsants on her initial admission 11/23. Valproic acid 500 mg 3 times daily. Check level was 40 12/[address] 12/17- for acute disease EEG - Diffuse slowing consistent with a moderate diffuse encephalopathy. No epileptiform activity Acetaminophen 650 by tube every 6 hours as needed fever Continue quetiapine 25 mg daily/home medication Holding tizanidine 4 mg daily Respiratory: Acute hypoxic and hypercarbic respiratory failure- persistent Acute severe bilateral multifocal healthcare associated pneumonia Possible aspiration pneumonia Spontaneous right-sided tension pneumothorax Subcutaneous Emphysema Chest tube #1: 12/17- removed 12/26 Chest tube #2: overnight 12/17 Chest tube #3: 12/19 CT surgery/Dr. Lynn following CT thorax overnight 12/12 revealed significant 3.7 cm moderate right pneumothorax without tension. Pneumopericardium and significant subcutaneous emphysema. Vent bundle PRVC mode, peep 5. Epoprostenol aerosolized added 12/19, titrated down to 20ng/kg/min yesterday. will attempt to wean off today. Head of bed elevated Albuterol/ipratropium aerosols every 4 hours with albuterol aerosols every 2 hours as needed dyspnea Wean FiO2 for goal SPO2 greater than 90% AM CXR Cardiovascular: Septic shock- resolved Elevated troponin Type II NSTEMI secondary to demand ischemia Hyperlipidemia Holding lisinopril 30 mg daily/home medication. Resume pravastatin 80 mg daily when clinically indicated continue hydrocortisone wean continue lasix to 80mg iv q6h add concentrated albumin to maintain intravascular volume. Renal: Acute kidney injury (resolved) Secondary to shock, off pressors continue Read Frequent urine output monitoring Daily creatinine KVO IV fluid. Lasix to mobilize fluid -- Strict I/Os FEN/GI: Acute protein calorie malnutritionmoderate Lactic acidosis- resolving. Severe colitis Enterovirus colitis C. difficile colitis Hyperammonemia Acute hypophosphatemia Acute hypernatremia Currently on lactulose 30 cc twice daily Tube feeding with vital 1.5 goal 55 cc now. Metoclopramide 1 mg 3 times daily ICU electrolyte protocol Daily BMP, magnesium, phosphorus Trend lactates Lactulose/polythene glycol twice daily Holding dicyclomine 20 mg 3 times daily Heme/ID: C. difficile colitis Enterovirus colitis Septic shock Healthcare associated multifocal pneumonia Possible gram-positive cocci bacteremia Early empyema Vancomycin IV/p.o. with pharmacy dosing Cefepime, metronidazole, azithromycin and micafungin Bronchoscopy 12/19 with gram-negative rods Pleural fluid 12/19 with gram-negative rods Pleural fluid 12/17 -g Karla albicans/glabrata Klebsiella, gram-positive rods 12/17 -sputum -Klebsiella 12/17 blood-strep viridians/coag negative staph Infectious disease consulted and following. Endocrine: Acute hypoglycemia- resolving. Sliding scale insulin Accu-Cheks every 6 hours to maintain euglycemia Prophylaxis: GI Prophylaxis Famotidine DVT Prophylaxis -- SCDs Subcu heparin Lines: 12/23: RIJ central line placed 12/23 12/17 femoral triple-lumen catheter discontinued 12/23 12/17 right radial arterial line discontinued 12/21 12/17 right 28 Israeli chest tube to -40 cm suction: removed 12/26 12/17 right 32 Israeli chest tube to -40 cm suction 12/19 -right #32 Israeli chest tube to -40 cm suction 12/17 Jacek Updated patient's and daughter regarding current clinical status and plan of care and he voiced understanding and was agreeable. Critical care time 31 minutes excluding procedures
[2017-12-27] MEDS: Micafungin Inj 150 MG in Sodium Chlor 0.9% Inj 100 ML IV.SIG SCH (18:39)
[2017-12-27] MEDS: Albumin Human 25% Inj 100 ML IV.SIG SCH (18:39)
[2017-12-27] MEDS: QUEtiapine 25 MG Tablet PO SCH (21:42)
[2017-12-28] MEDS: Albumin Human 25% Inj 100 ML IV.SIG SCH ×2 (00:28→08:43)
[2017-12-28] MEDS: Oral Hygiene Kit OROPHARYNG SCH ×4 (00:29→17:28)
[2017-12-28] MEDS: Hydrocortisone Sod Succinate 100 MG Vial IV.PUSH SCH ×4 (00:30→22:54)
[2017-12-28] MEDS: Propofol 1000 mg/100 ml Inj 1,000 MG/100 ML BOTTLE IV.CONT PRN ×5 (00:30→18:13)
[2017-12-28] MEDS: Insulin NovoLIN Regular Correctional Sugar Inj SQ SCH ×3 (00:32→14:45)
[2017-12-28] MEDS: Epoprostenol (30,000/mL) Neb 30 ML in Sodium Chlor 0.9% Inj 70 ML NEB SCH (00:55)
[2017-12-28] MEDS: fentaNYL 10 mcg/mL Premix Drip 2,500 MCG/250 ML BAG IV.SIG PRN ×2 (04:19→14:46)
[2017-12-28] MEDS: Piperacil/Tazo 4.5 GM Premix 4.5 GM/100 ML BAG IV.SIG SCH ×4 (04:20→22:47)
[2017-12-28 05:06] LABS: Mean Corpuscular HGB Conc 33.5 % (32.0-36.0); Mean Corpuscular Hemoglobin 31.5 pg (27.0-34.0); Mean Corpuscular Volume 94.2 fL (80.0-100.0); Mean Platelet Volume 9.3 fL (7.0-11.0); Platelet Count 322 th/mm3 (150-450); Red Blood Count 2.17 mil/mm3 (4.00-5.30); Red Cell Distribution Width 15.6 % (11.6-17.2); White Blood Count 19.5 th/mm3 (4.0-11.0)
[2017-12-28 05:13] LABS: Hematocrit 20.5 % (35.0-46.0); Hemoglobin 6.9 gm/dL (11.6-15.3)
[2017-12-28 05:23] LABS: Anion Gap 6 meq/L (5-15); Blood Urea Nitrogen 21 mg/dL (7-18); Calcium 6.4 mg/dL (8.5-10.1); Carbon Dioxide 41.3 meq/L (21.0-32.0); Chloride 99 meq/L (98-107); Glomerular Filtration Rate Greater Than 89 mL/min (>89); Glucose,Random 108 mg/dL (74-106); Magnesium 1.3 mg/dL (1.5-2.5); Phosphorus 2.6 mg/dL (2.5-4.9); Sodium 146 meq/L (136-145); Vancomycin,Trough 9.8 mcg/mL (5.0-10.0)
[2017-12-28 05:28] LABS: Potassium 2.5 meq/L (3.5-5.1)
[2017-12-28 05:42] LABS: Calcium-Albumin Corrected 7.5 mg/dL (8.5-10.1); Total Protein 4.8 g/dL (6.4-8.2)
[2017-12-28] MEDS ORDERED: Pharmacy Ordered Lab Info OTHER ONE (05:45)
[2017-12-28] MEDS: Heparin - SQ 10,000 UNITS/ML Vial SQ SCH ×3 (06:42→22:53)
[2017-12-28] MEDS: Potassium Chlor 40 mEq Premix 40 MEQ/100 ML PIGGYBACK IV.SIG PRN ×3 (06:44→22:57)
[2017-12-28] MEDS: Potassium Chloride 25 MEQ Effervescent Tablet PO PRN (08:45)
[2017-12-28] MEDS: Polyethylene Glycol 3350 17 GM Packet PO SCH ×2 (08:45→22:47)
[2017-12-28] MEDS: Senna/Docusate Sodium 8.6/50 MG Tablet PO SCH ×2 (09:51→22:48)
[2017-12-28] MEDS: Chlorhexidine 0.12% Oral Kit 15 ML UDC OROPHARYNG SCH ×2 (09:51→22:50)
[2017-12-28] MEDS: Famotidine 20 MG Tablet PO SCH ×2 (09:51→22:48)
[2017-12-28] MEDS: Carboxymethylcellulose 0.5% Opth Drops 15 ML Bottle EACH EYE SCH ×2 (09:52→22:49)
[2017-12-28 11:24] LABS: ABG PCO2 50 mmHg (38-42); ABG PO2 68 mmHG (61-120)
--- NOTE | 2017-12-28 11:24 | P.PNCV ---
- Note Subjective/Hospital Course: pt now has 3 right sided chest tube #3 has 2-3 = air leak , #2 +1 all to 40cm suction pt now off pressors remains sedated on vent 55% fio2 +8 peep may need to re-eval for repeat ct scan in am pt will not tolerate one lung ventilation at this during any surgery will continue to monitor 12/23 pt now on 75% Fi02 peep down to 5 , no on flolan sub q emphysema with some improvement chest x 3 apical #3 +2 continuous air leak mid #2 + 1 air leak lower #1 no air leak all to 40 cm suction will monitor 12/26 Hemodynamically and clinically better One chest tube removed. 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 once clinically more stable We will continue to follow 12/28 # 3 chest tube still has 1-2 + air leak / both chest tubes now to 20cm suction improved subqu emphysema remains on vent sedated +8 peep FIo2 55% at bedside Objective: Vital Signs - 24 hr 12/27/17 12:00 12/27/17 13:13 12/27/17 14:00 Temperature 98 F Pulse Rate 83 97 H Respiratory Rate 18 18 104 H Blood Pressure 97/65 L 94/55 L Pulse Oximetry 100 97 98 12/27/17 14:30 12/27/17 14:37 12/27/17 15:00 Temperature Pulse Rate 92 H 97 H 92 H Respiratory Rate 47 H 18 38 H Blood Pressure 94/58 L 99/61 L Pulse Oximetry 99 98 12/27/17 15:30 12/27/17 16:00 12/27/17 16:30 Temperature 98.9 F Pulse Rate 96 H 99 H 97 H Respiratory Rate 66 H 50 H 61 H Blood Pressure 124/65 114/66 111/70 Pulse Oximetry 98 97 98 12/27/17 17:00 12/27/17 17:30 12/27/17 18:00 Temperature Pulse Rate 94 H 96 H 98 H Respiratory Rate 26 H 42 H 51 H Blood Pressure 105/66 104/61 101/60 Pulse Oximetry 98 97 97 12/27/17 18:30 12/27/17 19:00 12/27/17 19:30 Temperature Pulse Rate 94 H 93 H 101 H Respiratory Rate 23 36 H 28 H Blood Pressure 103/64 99/59 L 106/59 L Pulse Oximetry 98 96 96 12/27/17 19:40 12/27/17 20:00 12/27/17 20:30 Temperature 99.8 F H Pulse Rate 106 H 101 H 101 H Respiratory Rate 20 33 H 34 H Blood Pressure 105/61 117/67 Pulse Oximetry 93 L 96 95 12/27/17 21:00 12/27/17 21:30 12/27/17 22:00 Temperature Pulse Rate 93 H 100 H 112 H Respiratory Rate 33 H 29 H 23 Blood Pressure 110/64 102/60 148/72 H Pulse Oximetry 96 97 88 L 12/27/17 22:10 12/27/17 22:30 12/27/17 23:00 Temperature Pulse Rate 98 H 96 H Respiratory Rate 18 30 H 36 H Blood Pressure 110/59 L 96/54 L Pulse Oximetry 95 95 98 12/27/17 23:30 12/27/17 23:34 12/28/17 00:00 Temperature Pulse Rate 105 H 97 H 93 H Respiratory Rate 20 20 33 H Blood Pressure 124/66 103/58 L Pulse Oximetry 94 L 96 12/28/17 00:30 12/28/17 01:00 12/28/17 01:16 Temperature Pulse Rate 109 H 103 H Respiratory Rate 21 22 18 Blood Pressure 124/69 121/69 Pulse Oximetry 94 L 96 96 12/28/17 01:30 12/28/17 02:00 12/28/17 02:30 Temperature Pulse Rate 102 H 101 H 96 H Respiratory Rate 18 22 14 Blood Pressure 109/58 L 117/60 112/59 L Pulse Oximetry 94 L 94 L 98 12/28/17 03:00 12/28/17 03:30 12/28/17 03:54 Temperature Pulse Rate 98 H 91 H 84 Respiratory Rate 13 19 18 Blood Pressure 111/60 117/61 Pulse Oximetry 97 97 12/28/17 04:00 12/28/17 04:20 12/28/17 04:30 Temperature Pulse Rate 91 H 93 H Respiratory Rate 16 18 18 Blood Pressure 116/66 118/63 Pulse Oximetry 98 99 100 12/28/17 05:00 12/28/17 05:30 12/28/17 06:00 Temperature Pulse Rate 98 H 116 H 97 H Respiratory Rate 18 30 H 19 Blood Pressure 107/58 L 124/67 109/60 Pulse Oximetry 97 95 94 L 12/28/17 07:37 12/28/17 11:01 Temperature Pulse Rate Respiratory Rate 28 H 20 Blood Pressure Pulse Oximetry 94 L 99 GENERAL: sedated on vent / orally orally intubated SKIN: Warm and dry. HEAD: Normocephalic. EYES: No scleral icterus. No injection or drainage. NECK: Supple, trachea midline. No JVD or lymphadenopathy. CARDIOVASCULAR: regular rate and rhythm without murmurs, gallops, or rubs, general edema RESPIRATORY: few coarse breath sounds chest tube x 2 right lateral chest wall Breath sounds equal bilaterally. No accessory muscle use. GASTROINTESTINAL: Abdomen soft, non-tender, nondistended. / NG tube in place, tolerating tube feeds MUSCULOSKELETAL: No cyanosis, or edema. BACK: Nontender without obvious deformity. No CVA tenderness. Neuro RASS -3 Labs: Laboratory Results - last 12 hr 12/28/17 12/28/17 12/28/17 00:32 04:24 04:24 WBC 19.5 H RBC 2.17 L Hgb 6.9 L* Hct 20.5 L* MCV 94.2 MCH 31.5 MCHC 33.5 RDW 15.6 Plt Count 322 MPV 9.3 Sodium 146 H Potassium 2.5 L* D Chloride 99 Carbon Dioxide 41.3 H Anion Gap 6 BUN 21 H Creatinine 0.62 Estimated GFR Greater than 89 POC Glucose 114 H Random Glucose 108 H Calcium 6.4 L* Prot Corrected Calcium 7.5 L Phosphorus 2.6 Magnesium 1.3 L Total Protein 4.8 L Vancomycin Trough 9.8 Result Diagrams: 12/28/17 04:24 12/28/17 04:24 Telemetry: NSR - Plan (1) Respiratory failure Plan: pt still requiring high flow 02/ on 55% on flolan would not tolerate one lung ventilation for surgery will continue to monitor (2) Pneumonia (1) Respiratory failure Qualifiers: Chronicity: acute Respiratory failure complication: hypoxia and hypercapnia Qualified Code(s): J96.01 - Acute respiratory failure with hypoxia; J96.02 - Acute respiratory failure with hypercapnia (2) Pneumonia Qualifiers: Pneumonia type: due to unspecified organism Laterality: bilateral Lung location: unspecified part of lung Qualified Code(s): J18.9 - Pneumonia, unspecified organism
--- NOTE | 2017-12-28 12:03 | P.PNPAL ---
Reason for Visit Reason for visit: a. To assist with evaluation and management of symptoms including: pain. b. To assist medical decision maker(s) with: better understanding of current medical conditions; weighing benefits/burdens of medical treatment options; making medical treatment decisions. Subjective Subjective/Interval History: Patient seen in medical ICU, remains intubated on mechanical ventilation. Sedated on propofol and fentanyl, unresponsive to verbal or tactile stimuli but appears comfortable. #1 chest tube removed on 12/26. Currently on a 55% FiO2. Hemoglobin of 6.9 this morning, pending transfusion of packed red blood cell. 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 Currently not a surgical candidate given critical condition, unlikely to tolerate one lung ventilation for surgery. Luis at bedside. He reports that daughter Margarita was able to visit over the weekend from [facility]. verbalizing a good understanding of patient's critical condition with guarded prognosis. reports that they had a very good conversation with circulation assistant Dr. Garces over the weekend in which long-term prognosis and trach and PEG were discussed. is hoping that patient will be stable enough to undergo bronchopleural fistula repair sometime this week. Patient currently on day 11 of endotracheal intubation. As per , goal remain aggressive at this time. stating "we are to give her the best chance of surviving", verbalized taking "one day at a time". Advance Directives Living Will: Never completed Health Care Surrogate: Never completed Durable Power of Spray Rig Operator: Never completed Health Care Surrogate Name and Number: HCP Luis Woodruff Objective Vital Signs: Vital Signs 12/27/17 12:00 12/27/17 13:13 12/27/17 14:00 Temperature 98 F Pulse Rate 83 97 H Respiratory Rate 18 18 104 H Blood Pressure 97/65 L 94/55 L Pulse Oximetry 100 97 98 12/27/17 14:30 12/27/17 14:37 12/27/17 15:00 Temperature Pulse Rate 92 H 97 H 92 H Respiratory Rate 47 H 18 38 H Blood Pressure 94/58 L 99/61 L Pulse Oximetry 99 98 12/27/17 15:30 12/27/17 16:00 12/27/17 16:30 Temperature 98.9 F Pulse Rate 96 H 99 H 97 H Respiratory Rate 66 H 50 H 61 H Blood Pressure 124/65 114/66 111/70 Pulse Oximetry 98 97 98 12/27/17 17:00 12/27/17 17:30 12/27/17 18:00 Temperature Pulse Rate 94 H 96 H 98 H Respiratory Rate 26 H 42 H 51 H Blood Pressure 105/66 104/61 101/60 Pulse Oximetry 98 97 97 12/27/17 18:30 12/27/17 19:00 12/27/17 19:30 Temperature Pulse Rate 94 H 93 H 101 H Respiratory Rate 23 36 H 28 H Blood Pressure 103/64 99/59 L 106/59 L Pulse Oximetry 98 96 96 12/27/17 19:40 12/27/17 20:00 12/27/17 20:30 Temperature 99.8 F H Pulse Rate 106 H 101 H 101 H Respiratory Rate 20 33 H 34 H Blood Pressure 105/61 117/67 Pulse Oximetry 93 L 96 95 12/27/17 21:00 12/27/17 21:30 12/27/17 22:00 Temperature Pulse Rate 93 H 100 H 112 H Respiratory Rate 33 H 29 H 23 Blood Pressure 110/64 102/60 148/72 H Pulse Oximetry 96 97 88 L 12/27/17 22:10 12/27/17 22:30 12/27/17 23:00 Temperature Pulse Rate 98 H 96 H Respiratory Rate 18 30 H 36 H Blood Pressure 110/59 L 96/54 L Pulse Oximetry 95 95 98 12/27/17 23:30 12/27/17 23:34 12/28/17 00:00 Temperature Pulse Rate 105 H 97 H 93 H Respiratory Rate 20 20 33 H Blood Pressure 124/66 103/58 L Pulse Oximetry 94 L 96 12/28/17 00:30 12/28/17 01:00 12/28/17 01:16 Temperature Pulse Rate 109 H 103 H Respiratory Rate 21 22 18 Blood Pressure 124/69 121/69 Pulse Oximetry 94 L 96 96 12/28/17 01:30 12/28/17 02:00 12/28/17 02:30 Temperature Pulse Rate 102 H 101 H 96 H Respiratory Rate 18 22 14 Blood Pressure 109/58 L 117/60 112/59 L Pulse Oximetry 94 L 94 L 98 12/28/17 03:00 12/28/17 03:30 11/05/18 03:54 Temperature Pulse Rate 98 H 91 H 84 Respiratory Rate 13 19 18 Blood Pressure 111/60 117/61 Pulse Oximetry 97 97 12/28/17 04:00 12/28/17 04:20 12/28/17 04:30 Temperature Pulse Rate 91 H 93 H Respiratory Rate 16 18 18 Blood Pressure 116/66 118/63 Pulse Oximetry 98 99 100 12/28/17 05:00 12/28/17 05:30 12/28/17 06:00 Temperature Pulse Rate 98 H 116 H 97 H Respiratory Rate 18 30 H 19 Blood Pressure 107/58 L 124/67 109/60 Pulse Oximetry 97 95 94 L 12/28/17 07:37 12/28/17 11:01 Temperature Pulse Rate Respiratory Rate 28 H 20 Blood Pressure Pulse Oximetry 94 L 99 Intake & Output 12/27/17 12/28/17 12/28/17 18:59 06:59 18:59 Intake Total 1553 / 1553 1977 / 1975 300 / 300 Output Total 2500 / 2500 5120 / 5120 Balance -947 / -947 -3144 / -3144 300 / 300 Weight 90.5 kg Intake: IV 750 / 750 1300 / 1300 300 / 300 Diprivan 1000 mg/100 ml Inj 1, 200 / 200 200 / 200 100 / 100 000 mg In 100 ml @ 5 MCG/KG/MIN 2.904 mls/hr IV.CONT TITRATE PRN Rx#:[id number] Flexbumin 25% Inj 100 ML @ 12.5 100 / 100 100 / 100 mls/hr IV.SIG Q8H [facility]ENJ[facility] Rx#: [id number] Mycamine Inj 150 MG In NS Inj 100 / 100 100 ML @ 100 mls/hr IV.SIG Q24H [facility]EN[facility] Rx#:[id number] Zosyn 4.5 GM Premix 4.5 gm In 100 / 100 300 / 300 100 ml @ 200 mls/hr IV.SIG Q6H [facility] Rx#:[id number] KCl 40 mEq Premix Inj 40 meq In 100 / 100 100 / 100 100 ml @ 25 mls/hr IV.SIG Q2H PRN Rx#:[id number] fentaNYL 10 mcg/mL Premix Drip 250 / 250 500 / 500 2,500 mcg In 250 ml @ 50 MCG/HR 5 mls/hr IV.SIG TITRATE PRN Rx #:[id number] Flolan (30,000 ng/mL) Neb 30 ML 100 / 100 100 / 100 In NS Inj 70 ML @ 5 mls/hr NEB Q8H [facility] Rx#:[id number] Tube Feeding 703 / 703 676 / 676 Tube Irrigant 100 / 100 Output: Urine 4500 / 4500 Urine Amount (Catheter) 1750 / 1750 Indwelling Urethral Catheter 1750 / 1750 Chest Tube Drainage 750 / 750 620 / 620 #2 Right 550 / 550 560 / 560 #3 Right Upper 200 / 200 60 / 60 Other: Date of Last Bowel Movement 12/25/17 12/28/17 # Bowel Movements 1 Physical Exam: CONSTITUTIONAL/GENERAL: Obese female intubated on mechanical ventilation resting in bed in no apparent distress. TUBES/LINES/DRAINS: ETT, OG, right triple-lumen IJ, Read catheter, bilateral soft wrist restraints. SKIN: No jaundice, rashes, or lesions. Ecchymoses on upper extremities. No wounds seen anteriorly. Skin temperature appropriate. Not diaphoretic. HEAD: Atraumatic. Normocephalic. EYES: Pupils equal and round and reactive. No scleral icterus. No injection or drainage. Fundi not examined. ENT: Unable to evaluate hearing, sedated. Nose without bleeding or purulent drainage. Moist oral mucosa. ETT, OG in place. NECK: Trachea midline. Supple, nontender. CARDIOVASCULAR: Heart rate in the 110s. Regular rate without murmurs, gallops, or rubs. No JVD. Peripheral pulses symmetric. RESPIRATORY/CHEST: Symmetric, unlabored respirations. Coarse bilaterally, right more than left. Chest tube x 2 to right with moderate amount of clear yellow serous fluid. GASTROINTESTINAL: Abdomen soft, obese, nondistended. Bowel sounds present. Tolerating ongoing tube feeds. GENITOURINARY: Without palpable bladder distension. Read catheter in place. MUSCULOSKELETAL: Extremities without clubbing, cyanosis. Edema to bilateral upper extremities. No mottling or clubbing. NEUROLOGICAL: Sedated. Unresponsive to verbal or tactile stimuli. PSYCHIATRIC: Unable to evaluate, sedated. Diagnostic Tests Laboratory: Laboratory Results - last 72 hr 12/25/17 12/26/17 12/26/17 18:25 00:14 06:24 WBC RBC Hgb Hct MCV MCH MCHC RDW Plt Count MPV Puncture Site Patient Temperature O2 Saturation ABG pH ABG pCO2 ABG pO2 ABG HCO3 ABG O2 Content ABG Base Excess ABG Methemoglobin [place] Test Hemoglobin Carboxyhemoglobin O2 Delivery Device Vent Setting Inspired O2 Critical Value Sodium Potassium Chloride Carbon Dioxide Anion Gap BUN Creatinine Estimated GFR POC Glucose 140 H 190 H 156 H Random Glucose Lactic Acid Calcium Prot Corrected Calcium Phosphorus Magnesium Total Bilirubin AST ALT Alkaline Phosphatase Total Protein Albumin Prealbumin Vancomycin Trough 12/26/17 12/26/17 12/26/17 12:46 18:40 20:50 WBC 26.0 H RBC 2.83 L Hgb 8.7 L Hct 26.9 L MCV 95.0 MCH 30.9 MCHC 32.5 RDW 15.9 Plt Count 309 D MPV 9.5 Puncture Site Patient Temperature O2 Saturation ABG pH ABG pCO2 ABG pO2 ABG HCO3 ABG O2 Content ABG Base Excess ABG Methemoglobin [place] Test Hemoglobin Carboxyhemoglobin O2 Delivery Device Vent Setting Inspired O2 Critical Value Sodium Potassium Chloride Carbon Dioxide Anion Gap BUN Creatinine Estimated GFR POC Glucose 123 H 111 H Random Glucose Lactic Acid Calcium Prot Corrected Calcium Phosphorus Magnesium Total Bilirubin AST ALT Alkaline Phosphatase Total Protein Albumin Prealbumin Vancomycin Trough 12/26/17 12/26/17 12/27/17 20:50 20:50 00:00 WBC RBC Hgb Hct MCV MCH MCHC RDW Plt Count MPV Puncture Site Patient Temperature O2 Saturation ABG pH ABG pCO2 ABG pO2 ABG HCO3 ABG O2 Content ABG Base Excess ABG Methemoglobin [place] Test Hemoglobin Carboxyhemoglobin O2 Delivery Device Vent Setting Inspired O2 Critical Value Sodium 144 Potassium 2.8 L* D Chloride 103 Carbon Dioxide 32.2 H Anion Gap 9 BUN 16 Creatinine 0.60 Estimated GFR Greater than 89 POC Glucose Random Glucose 133 H Lactic Acid 2.1 H 2.3 H Calcium 6.6 L* Prot Corrected Calcium 8.0 L Phosphorus 2.7 Magnesium 1.4 L Total Bilirubin 0.2 AST 19 ALT 12 Alkaline Phosphatase 80 Total Protein 4.4 L D Albumin 1.2 L Prealbumin 23 Vancomycin Trough 12/27/17 12/27/17 12/27/17 00:10 04:20 04:20 WBC 24.9 H RBC 2.60 L Hgb 8.2 L Hct 25.0 L MCV 95.8 MCH 31.6 MCHC 32.9 RDW 15.7 Plt Count 324 MPV 9.5 Puncture Site Patient Temperature O2 Saturation ABG pH ABG pCO2 ABG pO2 ABG HCO3 ABG O2 Content ABG Base Excess ABG Methemoglobin Pedro Pablo Test Hemoglobin Carboxyhemoglobin O2 Delivery Device Vent Setting Inspired O2 Critical Value Sodium 145 Potassium 2.8 L* Chloride 103 Carbon Dioxide 34.5 H Anion Gap 8 BUN 17 Creatinine 0.62 Estimated GFR Greater than 89 POC Glucose 136 H Random Glucose 105 Lactic Acid Calcium 6.5 L* Prot Corrected Calcium 7.9 L Phosphorus 2.7 Magnesium 1.4 L Total Bilirubin AST ALT Alkaline Phosphatase Total Protein 4.3 L Albumin Prealbumin Vancomycin Trough 12/27/17 12/27/17 12/27/17 12:00 12:00 18:08 WBC RBC Hgb Hct MCV MCH MCHC RDW Plt Count MPV Puncture Site Patient Temperature O2 Saturation ABG pH ABG pCO2 ABG pO2 ABG HCO3 ABG O2 Content ABG Base Excess ABG Methemoglobin Pedro Pablo Test Hemoglobin Carboxyhemoglobin O2 Delivery Device Vent Setting Inspired O2 Critical Value Sodium Potassium 4.2 D Chloride Carbon Dioxide Anion Gap BUN Creatinine Estimated GFR POC Glucose 112 H 150 H Random Glucose Lactic Acid Calcium Prot Corrected Calcium Phosphorus Magnesium Total Bilirubin AST ALT Alkaline Phosphatase Total Protein Albumin Prealbumin Vancomycin Trough 12/28/17 12/28/17 12/28/17 00:32 04:24 04:24 WBC 19.5 H RBC 2.17 L Hgb 6.9 L* Hct 20.5 L* MCV 94.2 MCH 31.5 MCHC 33.5 RDW 15.6 Plt Count 322 MPV 9.3 Puncture Site Patient Temperature O2 Saturation ABG pH ABG pCO2 ABG pO2 ABG HCO3 ABG O2 Content ABG Base Excess ABG Methemoglobin Pedro Pablo Test Hemoglobin Carboxyhemoglobin O2 Delivery Device Vent Setting Inspired O2 Critical Value Sodium 146 H Potassium 2.5 L* D Chloride 99 Carbon Dioxide 41.3 H Anion Gap 6 BUN 21 H Creatinine 0.62 Estimated GFR Greater than 89 POC Glucose 114 H Random Glucose 108 H Lactic Acid Calcium 6.4 L* Prot Corrected Calcium 7.5 L Phosphorus 2.6 Magnesium 1.3 L Total Bilirubin AST ALT Alkaline Phosphatase Total Protein 4.8 L Albumin Prealbumin Vancomycin Trough 9.8 12/28/17 11:03 WBC RBC Hgb Hct MCV MCH MCHC RDW Plt Count MPV Puncture Site Right radial Patient Temperature 98.6 O2 Saturation 92 ABG pH 7.51 H* ABG pCO2 50 H ABG pO2 68 ABG HCO3 39 H ABG O2 Content 9.3 L ABG Base Excess 15.0 H ABG Methemoglobin 2.2 H Pedro Pablo Test Present Hemoglobin 7.1 L* Carboxyhemoglobin 1.2 O2 Delivery Device Ventilator Vent Setting Inspired O2 55 Critical Value Yes Sodium Potassium Chloride Carbon Dioxide Anion Gap BUN Creatinine Estimated GFR POC Glucose Random Glucose Lactic Acid Calcium Prot Corrected Calcium Phosphorus Magnesium Total Bilirubin AST ALT Alkaline Phosphatase Total Protein Albumin Prealbumin Vancomycin Trough Result Diagrams: 12/28/17 04:24 12/28/17 04:24 Microbiology: Microbiology 12/19/17 11:30 Acid Fast Bacilli Smear - Final Bronchial Washings - Bronchial No acid fast bacilli seen Mycobacterial Culture - Preliminary No growth in 1 week 12/19/17 11:30 Fungal Smear - Final Bronchial Washings - Bronchial Rare budding yeast Fungal Culture - Preliminary No growth in 1 week Procedures: 12/17/2017: Endotracheal intubation 12/17/2017: OGT placement 12/17/2017: Femoral central line placement 12/17/2017: Right-sided chest tube placement x 2 12/17/2017: Right radial arterial line placement 12/17/2017: Read catheter placement 12/21/2017:Right-sided chest tube placed #3 12/26/2017: CT #1 discontinued Assessment and Plan - Disease Oriented Problem List (1) Respiratory failure (2) Pneumonia (3) Septic shock - Symptom Scale (1) Pain 0-10 Scale: Unable to quantify Comment: History of chronic pain to back. Acute pain secondary to invasive interventions, bedbound due to critical illness. (2) Shortness of breath 0-10 Scale: Unable to quantify Comment: Currently intubated on mechanical ventilation. Pertinent Non-Medical Issues: Psychosocial: Patient was born and raised in [place], [place]. She has been to her , Luis, for approximately 20 years. She has 1 daughter, Margarita. She is a retired teacher. Spiritual: Anabaptism bryson Legal: No advance directives completed. Ethical issues impacting care: No ethical issues identified. Important Contacts: Luis Woodruff, : [phone] Prognosis: Mrs. Woodruff is a 62-year-old female with multiple comorbidities and recent acute hospitalizations. Patient currently requiring mechanical ventilation, being treated for septic shock and bilateral aspiration pneumonias. Currently status post 3 chest tubes secondary to worsening emphysema. Has been evaluated by cardiothoracic surgery, poor surgical candidate at this time. Overall prognosis is guarded. Patient at a very high risk for further complications, continue decline and . Code Status: Full Code Plan: * CODE STATUS: Full code. * MEDICAL DECISION-MAKER: Patient unable to participate in medical decision making given clinical condition -intubated, sedated. No advance directives completed. As per [place] statute, healthcare proxy decision-maker falls to patient's Luis Woodruff. He has accepted this role and is fully supported by their family. * GOALS OF CARE: Goals of therapy remain aggressive. is hoping that patient will be stable enough to undergo bronchopleural fistula repair sometime this week. Patient currently on day 11 of endotracheal intubation. stating "we are to give her the best chance of surviving", verbalized taking "one day at a time". Overall short-term prognosis, trach/peg and long-term prognosis has been discussed in detail with pt's family by circulation assistant Dr. Garces and palliative care. * * SYMPTOMS: = Pain: Acute on chronic. Patient with history of chronic back pain status post multiple surgical interventions/appliances in place. Following with pain doctor in [facility]. Currently on fentanyl drip, appears comfortable at the time of my visit. No other recommendations at this time. * Spiritual services offered and accepted. Director Of Midwifery/Staff Midwife following. * Ongoing emotional support and active listening provided. * Palliative care to continue to follow-up for emotional support and goals of care patient's clinical course continues to evolve. receptive to palliative care follow-ups. Time Spent Total Floor Time (mins): 24 (Total time to include review of medical records, physical exam, goals of care conversation/emotional support provided to patient' s .) >50% Time in Counseling or Coordination of Care: Yes (Total visit time = 24 minutes; > 50% spent counseling/coordinating care) Attestation Attestation: To help prompt me to consider important information that might be impacting today's encounter and assessment, information from prior notes written by myself or my colleagues may have been "brought forward" into today's note. My signature on this note, however, is an attestation that I personally performed the exam, history, and/or decision-making noted today, and, unless otherwise indicated, the interactions with patient, family, and staff as well as the review of records all occurred today. I also attest that the listed assessment and stated plan reflect my best clinical judgment today based on the combination of historical information, prior notes, and today's exam/ interactions. When time spent is documented, it refers only to time spent today by the signer, or if indicated, combined time spent today by collaborating physician/nurse practitioner.
--- NOTE | 2017-12-28 13:32 | P.PNWCN ---
Wound Care Nurse Consult Additional information: Attempted to see patient for wound management of sacral area. Per RN Elizabeth MOONEY, patient is unstable to turn at this moment for assessment of sacral area. Wound care will attempt to see patient tomorrow.
--- NOTE | 2017-12-28 14:50 | P.DIET ---
Nutritional Evaluation Type of nutrition evaluation: initial Nutrition consult regarding: Tube Feeding Objective - Diagnosis Septic Shock, Resp Failure, hypoglycemia - Objective % IBW: 123 Body Weight Used for Calculations: Actual (72.7 kg ) Energy Needs - Lower Range (kCal/kg): 25 Energy Needs - Upper Range (kCal/kg): 30 Lower Limit kCal/kg (kCals): 1,818 Upper Limit kCal/kg (kCals): 2,181 Lower Limit Protein Factor (Grams per Kg): 1.1 Upper Limit Protein Factor (Grams per Kg): 1.4 Lower Protein Needs (Protein): 80 Upper Protein Needs (Protein): 102 Dietitian Reviewed in Medical Record: Curent medications, Intake & Output, Labs , Medical history, Tube feeding Diet Order: NPO Wound Care Note: skin midline sacrum: pressure injury Objective Comments: PM includes: HTN, Chronic Pain, HLD, MDRO Labs include: K+ 2.5, BUN 21, POC glucose 114, Ca+ 6.4 Mes include: Pepcid, Novolog, Lactulose, Flagyl, Pravachol, Seroquel +BM Assessment Assessment: Pt currently intubated on mech vent, sedated w/ propofol and fentanyl. Recommed to continue TF'ing w/Vital 1.5 goal rate 55ml/hr, pt tolerating TF well. Pressure ulcer assessment noted. Labs reviewed. Wt changes noted. Recommendations: 1. Recommend to continue TF'ing w/Vital 1.5 goal rate 55ml/hr Dietitian to Monitor: Lab values, Electrolytes, Glucose level, Intake & Output, Tube feeding tolerance, Weight change, Medical course
[2017-12-28] MEDS: Micafungin Inj 150 MG in Sodium Chlor 0.9% Inj 100 ML IV.SIG SCH (17:04)
--- NOTE | 2017-12-28 18:22 | P.PNCC ---
Subjective Subjective Remarks/Hospital Course: This is a 62yF who was originally admitted on 11/23 with a diagnosis of colitis, found to have enterovirus. discharged on 12/11 at that time on PO vancomycin, but came back on 12/13 with altered mental status and hypoglycemia, again discharged on 12/15. She was mildly fatigued on 12/16 according to her and asked to wait another day before traveling back to her home in [place]. This morning, she was unarousable and her called 911. She was intubated upon arrival to the emergency department for agonal respirations. CXR demonstrates bilateral multifocal pneumonia. She is febrile, hypotensive. CVL placed in the ER and vasopressors initiated after 2L bolus crystalloid. CT chest/abd/pelvis demonstrates right pneumothorax, densely consolidated right lower lobe, bilateral pulmonary infiltrates, evidence of ongoing colitis. Patient continue to be unstable. Immediately after identifying ptx on CT scan, I emergently placed right chest tube with some improvements in hemodynamics, but ongoing distributive shock persists. I placed arterial line. No additional information available from the patient, ROS unobtainable. In discussion with the , she has not had any new complaints in the 48h she was home, and other than mild fatigue last night, no new complaints. She was able to walk to the bathroom without assistance yesterday. 12/18: shock remains. now on levophed, vasopressin, phenylephrine. second chest tube placed overnight for worsening SQ air. acidosis remains and is severe. 12/19: Afebrile. Remains on vasopressin drip only. On stress dose hydrocortisone. Evaluated by CT surgery. Not a candidate for intervention at the present time. Chest tube continues to leak. Epoprostenol added today 12/20: Afebrile. FiO2 has decreased and is currently 70%. Currently replacing potassium, phosphorus and magnesium. Recheck later this afternoon. Less chest tube leak today down to 1 chamber. 12/21: Overnight, worsening subcutaneous emphysema. A third chest tube placed by overnight director of web marketing after discussion with cardiothoracic surgery. Currently hemodynamically stable. Replacing phosphorus today. To be evaluated by CT surgery today. 12/22: Remains sedated, orally intubated on mechanical ventilation. Persistent air leak and chest tube noted. 12/23: Remains sedated, orally intubated on mechanical ventilation. Air leak persists though slightly improved. PEEP at +5 FiO2 55%, inhaled Flolan continues. Central line replaced with right IJ triple-lumen catheter. 12/24: Remains sedated, orally intubated on mechanical ventilation. 1+ air leak from chest tube 3 noted. PEEP +5, FiO2 60%, inhaled Flolan continues. Decreasing subcutaneous emphysema noted. 12/25: Remains sedated, orally improved on mechanical ventilation. 1+ for leak from chest tube 2. PEEP +5, FiO2 50%. Starting to titrate inhaled Flolan down today. Initiating Lasix to mobilize fluid. SUBJECTIVE: 12/26: remains intubated. air leak continues from chest tube #3. drainage out of #1 and #2 are very serous. #1 was removed by myself today. all chest tube dressings changed by me today. repeat CXR pending. very volume overloaded. starting to diurese. off vasopressors. off pathway: still high fio2 requirements. 12/27: good diuresis overnight. very hypokalemic today and aggressively replacing. CXR unchanged. air leak unchanged. long discussion over long-term and short-term prognosis and plan of care with entire family today. all questions answered. 12/28: Continues to diurese. Remains on mechanical ventilation. Positive air leak in chest tube 3. 1 unit PRBCs transfused earlier for hemoglobin 6.9. Objective Vital Signs / I&O: Vital Signs 12/27/17 18:30 12/27/17 19:00 12/27/17 19:30 Temperature Pulse Rate 94 H 93 H 101 H Respiratory Rate 23 36 H 28 H Blood Pressure 103/64 99/59 L 106/59 L Pulse Oximetry 98 96 96 12/27/17 19:40 12/27/17 20:00 12/27/17 20:30 Temperature 99.8 F H Pulse Rate 106 H 101 H 101 H Respiratory Rate 20 33 H 34 H Blood Pressure 105/61 117/67 Pulse Oximetry 93 L 96 95 12/27/17 21:00 12/27/17 21:30 12/27/17 22:00 Temperature Pulse Rate 93 H 100 H 112 H Respiratory Rate 33 H 29 H 23 Blood Pressure 110/64 102/60 148/72 H Pulse Oximetry 96 97 88 L 12/27/17 22:10 12/27/17 22:30 12/27/17 23:00 Temperature Pulse Rate 98 H 96 H Respiratory Rate 18 30 H 36 H Blood Pressure 110/59 L 96/54 L Pulse Oximetry 95 95 98 12/27/17 23:30 12/27/17 23:34 12/28/17 00:00 Temperature Pulse Rate 105 H 97 H 93 H Respiratory Rate 20 20 33 H Blood Pressure 124/66 103/58 L Pulse Oximetry 94 L 96 12/28/17 00:30 12/28/17 01:00 12/28/17 01:16 Temperature Pulse Rate 109 H 103 H Respiratory Rate 21 22 18 Blood Pressure 124/69 121/69 Pulse Oximetry 94 L 96 96 12/28/17 01:30 12/28/17 02:00 12/28/17 02:30 Temperature Pulse Rate 102 H 101 H 96 H Respiratory Rate 18 22 14 Blood Pressure 109/58 L 117/60 112/59 L Pulse Oximetry 94 L 94 L 98 12/28/17 03:00 12/28/17 03:30 12/28/17 03:54 Temperature Pulse Rate 98 H 91 H 84 Respiratory Rate 13 19 18 Blood Pressure 111/60 117/61 Pulse Oximetry 97 97 12/28/17 04:00 12/28/17 04:20 12/28/17 04:30 Temperature Pulse Rate 91 H 93 H Respiratory Rate 16 18 18 Blood Pressure 116/66 118/63 Pulse Oximetry 98 99 100 12/28/17 05:00 12/28/17 05:30 12/28/17 06:00 Temperature Pulse Rate 98 H 116 H 97 H Respiratory Rate 18 30 H 19 Blood Pressure 107/58 L 124/67 109/60 Pulse Oximetry 97 95 94 L 12/28/17 07:37 12/28/17 08:00 12/28/17 10:00 Temperature Pulse Rate 107 H 115 H Respiratory Rate 28 H Blood Pressure Pulse Oximetry 94 L 12/28/17 11:01 12/28/17 12:00 12/28/17 14:00 Temperature Pulse Rate 111 H 109 H Respiratory Rate 20 Blood Pressure Pulse Oximetry 99 12/28/17 14:25 12/28/17 15:53 12/28/17 18:00 Temperature 99.7 F H Pulse Rate 98 H 102 H Respiratory Rate 21 20 Blood Pressure 105/51 L Pulse Oximetry 94 L 100 Intake & Output 12/27/17 12/28/17 12/28/17 18:59 06:59 18:59 Intake Total 1553 / 1553 1977 / 1975 1150 / 1150 Output Total 2500 / 2500 5120 / 5120 Balance -947 / -947 -3144 / -3144 1150 / 1150 Weight 90.5 kg Intake: IV 750 / 750 1300 / 1300 1150 / 1150 Diprivan 1000 mg/100 ml Inj 1, 200 / 200 200 / 200 300 / 300 000 mg In 100 ml @ 5 MCG/KG/MIN 2.904 mls/hr IV.CONT TITRATE PRN Rx#:[id number] Flexbumin 25% Inj 100 ML @ 12.5 100 / 100 100 / 100 mls/hr IV.SIG Q8H BENJAMIN Rx#: [id number] Mycamine Inj 150 MG In NS Inj 100 / 100 100 / 100 100 ML @ 100 mls/hr IV.SIG Q24H BENJAMIN Rx#:[id number] Zosyn 4.5 GM Premix 4.5 gm In 100 / 100 300 / 300 200 / 200 100 ml @ 200 mls/hr IV.SIG Q6H BENJAMIN Rx#:[id number] KCl 40 mEq Premix Inj 40 meq In 100 / 100 100 / 100 100 ml @ 25 mls/hr IV.SIG Q2H PRN Rx#:[id number] fentaNYL 10 mcg/mL Premix Drip 250 / 250 500 / 500 250 / 250 2,500 mcg In 250 ml @ 50 MCG/HR 5 mls/hr IV.SIG TITRATE PRN Rx #:[id number] Flolan (30,000 ng/mL) Neb 30 ML 100 / 100 100 / 100 100 / 100 In NS Inj 70 ML @ 5 mls/hr NEB Q8H BENJAMIN Rx#:[id number] Tube Feeding 703 / 703 676 / 676 Tube Irrigant 100 / 100 Intake (Blood Product) Amt 0 / 0 Rbc As-3 Leukoreduced Unit 0 / 0 [id number] Output: Urine 4500 / 4500 Urine Amount (Catheter) 1750 / 1750 Indwelling Urethral Catheter 1750 / 1750 Chest Tube Drainage 750 / 750 620 / 620 #2 Right 550 / 550 560 / 560 #3 Right Upper 200 / 200 60 / 60 Other: Date of Last Bowel Movement 12/25/17 12/28/17 12/28/17 # Bowel Movements 1 Result Diagrams: 12/28/17 04:24 12/28/17 04:24 Imaging: Impressions Chest X-Ray 12/27/17 05:00 CONCLUSION: Stable chest appearance Objective Remarks: GENERAL: 62-year-old middle-aged female, lying in bed, intubated, sedated, critically ill. HEENT: Normocephalic. Atraumatic. Pupils equal, round, reactive, conjugate. Positive left scleral edema. There is subcu air. Mucous membranes are moist NECK: Trachea is midline. CHEST: Equal chest rise. PRVC. 55% FiO2, PEEP +5. 2 right-sided chest tubes, one with 2+ air leak. improving SQ air. CARDIOVASCULAR: normal rate, regular rhythm. sinus. ABDOMEN: Soft, nontender, nondistended. No guarding. MUSCULOSKELETAL: Pulses 2+. gross anasarca. 3+ edema grossly. NEUROLOGICAL: RASS -3. Withdraws to pain x4. Does not follow commands. Assessment and Plan - Assessment and Plan Plan: Assessment: 62yF with HCAP pneumonia, bacteremia, and bleb rupture causing significant persistent air leak. remains with hypoxic respiratory failure. aggressive diuresis efforts. at some point will likely require VATS apical blebectomy, but remains likely too ill for this. remains very critically ill and off pathway. Neuro/Psych: Acute metabolic encephalopathy Possible seizure disorder Currently on fentany/ propofol drips for sedation/analgesia while intubated daily sedation vacation. goal RASS -2 She was started on anticonvulsants on her initial admission 11/23. Valproic acid 500 mg 3 times daily. Check level was 40 12/[address] 12/17- for acute disease EEG - Diffuse slowing consistent with a moderate diffuse encephalopathy. No epileptiform activity Acetaminophen 650 by tube every 6 hours as needed fever Continue quetiapine 25 mg daily/home medication Holding tizanidine 4 mg daily Respiratory: Acute hypoxic and hypercarbic respiratory failure- persistent Acute severe bilateral multifocal healthcare associated pneumonia Possible aspiration pneumonia Spontaneous right-sided tension pneumothorax Subcutaneous Emphysema Chest tube #1: 12/17- removed 12/26 Chest tube #2: overnight 12/17 Chest tube #3: 12/19 CT surgery/Dr. Lynn following CT thorax overnight 12/12 revealed significant 3.7 cm moderate right pneumothorax without tension. Pneumopericardium and significant subcutaneous emphysema. Vent bundle PRVC mode, peep 5. Epoprostenol aerosolized added 12/19, titrated down to 20ng/kg/min yesterday. will attempt to wean off today. Head of bed elevated Albuterol/ipratropium aerosols every 4 hours with albuterol aerosols every 2 hours as needed dyspnea Wean FiO2 for goal SPO2 greater than 90% AM CXR Cardiovascular: Septic shock- resolved Elevated troponin Type II NSTEMI secondary to demand ischemia Hyperlipidemia Holding lisinopril 30 mg daily/home medication. Resume pravastatin 80 mg daily when clinically indicated continue hydrocortisone wean continue lasix to 80mg iv q6h add concentrated albumin to maintain intravascular volume. Renal: Acute kidney injury (resolved) Secondary to shock, off pressors continue Read Frequent urine output monitoring Daily creatinine KVO IV fluid. Lasix to mobilize fluid -- Strict I/Os FEN/GI: Acute protein calorie malnutritionmoderate Lactic acidosis- resolving. Severe colitis Enterovirus colitis C. difficile colitis Hyperammonemia Acute hypophosphatemia Acute hypernatremia Currently on lactulose 30 cc twice daily Tube feeding with vital 1.5 goal 55 cc now. Metoclopramide 1 mg 3 times daily ICU electrolyte protocol Daily BMP, magnesium, phosphorus Trend lactates Lactulose/polythene glycol twice daily Holding dicyclomine 20 mg 3 times daily Heme/ID: C. difficile colitis Enterovirus colitis Septic shock Healthcare associated multifocal pneumonia Possible gram-positive cocci bacteremia Early empyema 1 unit PRBCs transfused on 12/28 for hemoglobin 6.9, recheck CBC and transfuse to keep hemoglobin above 8 g% Vancomycin IV/p.o. with pharmacy dosing Cefepime, metronidazole, azithromycin and micafungin Bronchoscopy 12/19 with gram-negative rods Pleural fluid 12/19 with gram-negative rods Pleural fluid 12/17 -g Karla albicans/glabrata Klebsiella, gram-positive rods 12/17 -sputum -Klebsiella 12/17 blood-strep viridians/coag negative staph Infectious disease consulted and following. Endocrine: Acute hypoglycemia- resolving. Sliding scale insulin Accu-Cheks every 6 hours to maintain euglycemia Prophylaxis: GI Prophylaxis Famotidine DVT Prophylaxis -- SCDs Subcu heparin Lines: 12/23: RIJ central line placed 12/23 12/17 femoral triple-lumen catheter discontinued 12/23 12/17 right radial arterial line discontinued 12/21 12/17 right 28 Jordanian chest tube to -40 cm suction: removed 12/26 12/17 right 32 Jordanian chest tube to -40 cm suction 12/19 -right #32 Jordanian chest tube to -40 cm suction 12/17 Read Updated patient's and daughter regarding current clinical status and plan of care and he voiced understanding and was agreeable. Critical care time 35 minutes excluding procedures
--- NOTE | 2017-12-28 20:00 | P.PNADD ---
Addendum to Inpatient Note Additional information: seen around 1900 full note to follow
[2017-12-28 21:28] LABS: Calcium 6.6 mg/dL (8.5-10.1); Carbon Dioxide 40.8 meq/L (21.0-32.0); Magnesium 1.3 mg/dL (1.5-2.5); Phosphorus 2.5 mg/dL (2.5-4.9); Potassium 3.3 meq/L (3.5-5.1)
[2017-12-28 21:28] LABS: Baso % (Auto) 0.1 % (0.0-2.0); Eos # (Auto) 0.1 th/mm3 (0.0-0.4); Eos % (Auto) 0.3 % (0.0-4.0); Hematocrit 23.8 % (35.0-46.0); Hemoglobin 7.9 gm/dL (11.6-15.3); Lymph # (Auto) 1.1 th/mm3 (1.0-4.8); Lymph % (Auto) 5.8 % (9.0-44.0); Mean Corpuscular HGB Conc 33.3 % (32.0-36.0); Mean Corpuscular Hemoglobin 31.1 pg (27.0-34.0); Mean Corpuscular Volume 93.5 fL (80.0-100.0); Mean Platelet Volume 9.2 fL (7.0-11.0); Mono # (Auto) 1.3 th/mm3 (0.0-0.9); Mono % (Auto) 7.2 % (0.0-8.0); Neut # (Auto) 16.3 th/mm3 (1.8-7.7); Neut % (Auto) 86.6 % (16.0-70.0); Platelet Count 298 th/mm3 (150-450); Red Blood Count 2.55 mil/mm3 (4.00-5.30); White Blood Count 18.8 th/mm3 (4.0-11.0)
[2017-12-28 21:47] LABS: Calcium-Albumin Corrected 7.8 mg/dL (8.5-10.1); Total Protein 4.7 g/dL (6.4-8.2)
[2017-12-28 21:58] LABS: Platelet Estimate Normal (Normal); Platelet Morphology Normal (Normal); Stomatocytes 1+
[2017-12-28] MEDS: QUEtiapine 25 MG Tablet PO SCH (22:48)
[2017-12-29] MEDS: Epoprostenol (30,000/mL) Neb 30 ML in Sodium Chlor 0.9% Inj 70 ML NEB SCH (04:22)
[2017-12-29] MEDS: fentaNYL 10 mcg/mL Premix Drip 2,500 MCG/250 ML BAG IV.SIG PRN ×3 (04:22→22:16)
[2017-12-29] MEDS: Propofol 1000 mg/100 ml Inj 1,000 MG/100 ML BOTTLE IV.CONT PRN ×5 (04:23→23:52)
[2017-12-29 05:10] LABS: ABG Base Excess 12.5 mmol/L (-2-2); ABG PCO2 50 mmHg (38-42); ABG PO2 81 mmHG (61-120)
[2017-12-29 06:14] LABS: Hematocrit 25.5 % (35.0-46.0); Hemoglobin 8.5 gm/dL (11.6-15.3); Mean Corpuscular HGB Conc 33.5 % (32.0-36.0); Mean Corpuscular Hemoglobin 31.8 pg (27.0-34.0); Mean Platelet Volume 9.3 fL (7.0-11.0); Platelet Count 308 th/mm3 (150-450); Red Blood Count 2.68 mil/mm3 (4.00-5.30); Red Cell Distribution Width 15.3 % (11.6-17.2); White Blood Count 17.9 th/mm3 (4.0-11.0)
[2017-12-29] MEDS: Oral Hygiene Kit OROPHARYNG SCH ×5 (06:28→23:51)
[2017-12-29] MEDS: Insulin NovoLIN Regular Correctional Sugar Inj SQ SCH ×6 (06:28→23:51)
[2017-12-29] MEDS: Heparin - SQ 10,000 UNITS/ML Vial SQ SCH ×3 (06:47→22:13)
[2017-12-29] MEDS: Hydrocortisone Sod Succinate 100 MG Vial IV.PUSH SCH ×2 (06:47→17:31)
[2017-12-29] MEDS: Piperacil/Tazo 4.5 GM Premix 4.5 GM/100 ML BAG IV.SIG SCH ×4 (06:48→22:14)
[2017-12-29] MEDS: Chlorhexidine 0.12% Oral Kit 15 ML UDC OROPHARYNG SCH ×2 (09:33→22:11)
[2017-12-29] MEDS: Famotidine 20 MG Tablet PO SCH ×2 (09:36→22:12)
[2017-12-29] MEDS: Sodium Chloride 0.9% 2 ML Flush BID IV.FLUSH SCH ×2 (09:36→22:12)
[2017-12-29] MEDS: Carboxymethylcellulose 0.5% Opth Drops 15 ML Bottle EACH EYE SCH ×2 (09:36→22:13)
--- NOTE | 2017-12-29 09:39 | XR ---
EXAM DATE: 12/29/2017 9:24 AM EST AGE/SEX: 62 years / Female INDICATIONS: Respiratory failure. CLINICAL DATA: This is the patient's subsequent encounter. Patient reports that signs and symptoms h ave been present for 3 weeks and indicates a pain score of Nonresponsive. MEDICAL/SURGICAL HISTORY: Hypertension. None. COMPARISON: [facility] – [place], [place], CHEST 1V SINGLE AP, 12/27/2017. . FINDINGS: A single AP semierect portable view of the chest was obtained. This again demonstrates to right-sided chest tube in place with an apparent small medial pneumothorax. The endotracheal tube remains in jovany ce with the tip at the level of the thoracic inlet. A nasogastric tube is seen coursing through the e sophagus and into the stomach. There is extensive bilateral subcutaneous emphysema which has increase d from the prior study. The right internal jugular central venous line remains in place. The heart si ze is within normal limits. There is hazy opacity in both lungs left greater than right. There is no distinct effusion. CONCLUSION: 1. Significant interval increase in bilateral subcutaneous emphysema with small apparent medial righ t pneumothorax now noted. 2. The patient remains intubated and there are 2 right-sided chest tubes in place. Electronically signed by: Evert Gomez MD 12/29/2017 9:38 AM EST
[2017-12-29 09:56] LABS: Alanine Aminotransferase 20 U/L (10-53); Albumin 1.8 g/dL (3.4-5.0); Anion Gap 7 meq/L (5-15); Aspartate Aminotransferase 39 U/L (15-37); Blood Urea Nitrogen 23 mg/dL (7-18); Calcium 6.9 mg/dL (8.5-10.1); Carbon Dioxide 37.9 meq/L (21.0-32.0); Chloride 100 meq/L (98-107); Glomerular Filtration Rate Greater Than 89 mL/min (>89); Glucose,Random 119 mg/dL (74-106); Sodium 145 meq/L (136-145)
[2017-12-29 10:07] LABS: Alkaline Phosphatase 66 U/L (45-117); Total Protein 5.1 g/dL (6.4-8.2)
[2017-12-29] MEDS: Senna/Docusate Sodium 8.6/50 MG Tablet PO SCH ×2 (10:32→22:13)
[2017-12-29] MEDS: Polyethylene Glycol 3350 17 GM Packet PO SCH ×2 (10:32→22:12)
--- NOTE | 2017-12-29 11:06 | P.PNCC ---
Subjective Subjective Remarks/Hospital Course: This is a 62yF who was originally admitted on 11/23 with a diagnosis of colitis, found to have enterovirus. discharged on 12/11 at that time on PO vancomycin, but came back on 12/13 with altered mental status and hypoglycemia, again discharged on 12/15. She was mildly fatigued on 12/16 according to her and asked to wait another day before traveling back to her home in [place]. This morning, she was unarousable and her called 911. She was intubated upon arrival to the emergency department for agonal respirations. CXR demonstrates bilateral multifocal pneumonia. She is febrile, hypotensive. CVL placed in the ER and vasopressors initiated after 2L bolus crystalloid. CT chest/abd/pelvis demonstrates right pneumothorax, densely consolidated right lower lobe, bilateral pulmonary infiltrates, evidence of ongoing colitis. Patient continue to be unstable. Immediately after identifying ptx on CT scan, I emergently placed right chest tube with some improvements in hemodynamics, but ongoing distributive shock persists. I placed arterial line. No additional information available from the patient, ROS unobtainable. In discussion with the , she has not had any new complaints in the 48h she was home, and other than mild fatigue last night, no new complaints. She was able to walk to the bathroom without assistance yesterday. 12/18: shock remains. now on levophed, vasopressin, phenylephrine. second chest tube placed overnight for worsening SQ air. acidosis remains and is severe. 12/19: Afebrile. Remains on vasopressin drip only. On stress dose hydrocortisone. Evaluated by CT surgery. Not a candidate for intervention at the present time. Chest tube continues to leak. Epoprostenol added today 12/20: Afebrile. FiO2 has decreased and is currently 70%. Currently replacing potassium, phosphorus and magnesium. Recheck later this afternoon. Less chest tube leak today down to 1 chamber. 12/21: Overnight, worsening subcutaneous emphysema. A third chest tube placed by overnight band leader after discussion with cardiothoracic surgery. Currently hemodynamically stable. Replacing phosphorus today. To be evaluated by CT surgery today. 12/22: Remains sedated, orally intubated on mechanical ventilation. Persistent air leak and chest tube noted. 12/23: Remains sedated, orally intubated on mechanical ventilation. Air leak persists though slightly improved. PEEP at +5 FiO2 55%, inhaled Flolan continues. Central line replaced with right IJ triple-lumen catheter. 12/24: Remains sedated, orally intubated on mechanical ventilation. 1+ air leak from chest tube 3 noted. PEEP +5, FiO2 60%, inhaled Flolan continues. Decreasing subcutaneous emphysema noted. 12/25: Remains sedated, orally improved on mechanical ventilation. 1+ for leak from chest tube 2. PEEP +5, FiO2 50%. Starting to titrate inhaled Flolan down today. Initiating Lasix to mobilize fluid. SUBJECTIVE: 12/26: remains intubated. air leak continues from chest tube #3. drainage out of #1 and #2 are very serous. #1 was removed by myself today. all chest tube dressings changed by me today. repeat CXR pending. very volume overloaded. starting to diurese. off vasopressors. off pathway: still high fio2 requirements. 12/27: good diuresis overnight. very hypokalemic today and aggressively replacing. CXR unchanged. air leak unchanged. long discussion over long-term and short-term prognosis and plan of care with entire family today. all questions answered. 12/28: Continues to diurese. Remains on mechanical ventilation. Positive air leak in chest tube 3. 1 unit PRBCs transfused earlier for hemoglobin 6.9. 12/29: Remains on mechanical ventilation. Increasing subcutaneous emphysema noted. Air leak stopped and chest tube #2 and 3 currently. Flolan being titrated down. Chest x-ray shows appropriate positioning of 2 chest tubes with the more medial small right pneumothorax with significant subcutaneous emphysema bilaterally. Patient remains off pressors and is being diuresed to mobilize fluid. Objective Vital Signs / I&O: Vital Signs 12/28/17 11:01 12/28/17 12:00 12/28/17 14:00 Temperature 99.5 F Pulse Rate 111 H 109 H Respiratory Rate 20 31 H Blood Pressure 99/61 L Pulse Oximetry 99 97 12/28/17 14:25 12/28/17 15:53 12/28/17 16:00 Temperature 99.7 F H 99.7 F H Pulse Rate 98 H 109 H Respiratory Rate 21 20 24 Blood Pressure 105/51 L 85/54 L Pulse Oximetry 94 L 100 12/28/17 16:15 12/28/17 16:30 12/28/17 17:00 Temperature 99.7 F H Pulse Rate 105 H 105 H 106 H Respiratory Rate 20 18 18 Blood Pressure 75/52 L 87/54 L Pulse Oximetry 98 98 12/28/17 17:30 12/28/17 18:00 12/28/17 19:43 Temperature 99.7 F H 98.7 F Pulse Rate 106 H 102 H Respiratory Rate 19 18 19 Blood Pressure 99/58 L 99/57 L Pulse Oximetry 97 97 97 12/28/17 20:00 12/28/17 22:00 12/28/17 23:38 Temperature 100.4 F H Pulse Rate 100 H 105 H Respiratory Rate 18 18 Blood Pressure 96/60 L Pulse Oximetry 99 97 12/29/17 00:00 12/29/17 02:00 12/29/17 03:44 Temperature 99.5 F Pulse Rate 102 H 100 H Respiratory Rate 18 24 Blood Pressure 104/54 L Pulse Oximetry 98 97 12/29/17 04:00 12/29/17 06:00 12/29/17 08:27 Temperature 99.4 F Pulse Rate 100 H 105 H 112 H Respiratory Rate 18 21 Blood Pressure 96/60 L Pulse Oximetry 99 97 12/29/17 10:18 Temperature Pulse Rate Respiratory Rate 21 Blood Pressure Pulse Oximetry 96 Intake & Output 12/28/17 12/29/17 12/29/17 18:59 06:59 18:59 Intake Total 2126 / 2126 1811 / 1811 200 / 200 Output Total 5220 / 5220 1760 / 1760 Balance -3094 / -3094 51 / 51 200 / 200 Weight 89.5 kg Intake: IV 1250 / 1250 450 / 450 200 / 200 Diprivan 1000 mg/100 ml Inj 1, 300 / 300 100 / 100 100 / 100 000 mg In 100 ml @ 5 MCG/KG/MIN 2.904 mls/hr IV.CONT TITRATE PRN Rx#:[id number] Flexbumin 25% Inj 100 ML @ 12.5 100 / 100 mls/hr IV.SIG Q8H [facility] Rx#: [id number] Mycamine Inj 150 MG In NS Inj 100 / 100 100 ML @ 100 mls/hr IV.SIG Q24H [facility] Rx#:[id number] Zosyn 4.5 GM Premix 4.5 gm In 200 / 200 100 / 100 100 / 100 100 ml @ 200 mls/hr IV.SIG Q6H [facility] Rx#:[id number] KCl 40 mEq Premix Inj 40 meq In 200 / 200 100 ml @ 25 mls/hr IV.SIG Q2H [facility] Rx#:[id number] fentaNYL 10 mcg/mL Premix Drip 250 / 250 250 / 250 2,500 mcg In 250 ml @ 50 MCG/HR 5 mls/hr IV.SIG TITRATE PRN Rx #:[id number] Flolan (30,000 ng/mL) Neb 30 ML 100 / 100 In NS Inj 70 ML @ 5 mls/hr NEB Q8H [facility] Rx#:[id number] Oral 0 / 0 Tube Feeding 676 / 676 411 / 411 Tube Irrigant 100 / 100 Water Bolus Amount 100 / 100 Other 950 / 950 Intake (Blood Product) Amt 0 / 0 Rbc As-3 Leukoreduced Unit 0 / 0 [id number] Output: Urine 4500 / 4500 Urine Amount (Catheter) 1700 / 1700 Indwelling Urethral Catheter 1700 / 1700 Gastric Drainage 100 / 100 Oral 100 / 100 Chest Tube Drainage 620 / 620 60 / 60 #2 Right 560 / 560 0 / 0 #3 Right Upper 60 / 60 60 / 60 Other: Date of Last Bowel Movement 12/28/17 12/28/17 # Bowel Movements 1 # Incontinent Bowel Movements 5 Result Diagrams: 12/29/17 05:00 12/29/17 09:10 Objective Remarks: GENERAL: 62-year-old middle-aged female, lying in bed, intubated, sedated, critically ill. HEENT: Normocephalic. Atraumatic. Pupils equal, round, reactive, conjugate. Positive left scleral edema. Increasing subcu air. Mucous membranes are moist NECK: Trachea is midline. CHEST: Equal chest rise. PRVC. 50% FiO2, PEEP decreased from +8 to +5. 2 right-sided chest tubes, no air leak-increased suction from -20 to -40cm water pressure on 12/29 CARDIOVASCULAR: normal rate, regular rhythm. sinus. ABDOMEN: Soft, nontender, nondistended. No guarding. MUSCULOSKELETAL: Pulses 2+. gross anasarca. 2+ edema grossly. NEUROLOGICAL: RASS -3. Withdraws to pain x4. Does not follow commands. Assessment and Plan - Assessment and Plan Plan: Assessment: 62yF with HCAP pneumonia, bacteremia, and bleb rupture causing significant persistent air leak. remains with hypoxic respiratory failure. aggressive diuresis efforts. at some point will likely require VATS apical blebectomy, but remains likely too ill for this. remains very critically ill and off pathway. Neuro/Psych: Acute metabolic encephalopathy Possible seizure disorder Currently on fentany/ propofol drips for sedation/analgesia while intubated daily sedation vacation. goal RASS -2 She was started on anticonvulsants on her initial admission 11/23. Valproic acid 500 mg 3 times daily. Check level was 40 12/[address] 12/17- for acute disease EEG - Diffuse slowing consistent with a moderate diffuse encephalopathy. No epileptiform activity Acetaminophen 650 by tube every 6 hours as needed fever Continue quetiapine 25 mg daily/home medication Holding tizanidine 4 mg daily Respiratory: Acute hypoxic and hypercarbic respiratory failure- persistent Acute severe bilateral multifocal healthcare associated pneumonia Possible aspiration pneumonia Spontaneous right-sided tension pneumothorax Subcutaneous Emphysema Chest tube #1: 12/17- removed 12/26 Chest tube #2: 12/17 Chest tube #3: 12/19 CT surgery/Dr. Lynn following. air leak in chest tube 3 stopped 12/29 CT thorax overnight 12/12 revealed significant 3.7 cm moderate right pneumothorax without tension. Pneumopericardium and significant subcutaneous emphysema. Vent bundle PRVC mode, peep decreased from +8 to +5. Epoprostenol aerosolized added 12/19, titrated down to 30ng/kg/min. will attempt to wean off today. Head of bed elevated Albuterol/ipratropium aerosols every 4 hours with albuterol aerosols every 2 hours as needed dyspnea Wean FiO2 for goal SPO2 greater than 90% AM CXR Cardiovascular: Septic shock- resolved Elevated troponin Type II NSTEMI secondary to demand ischemia Hyperlipidemia Holding lisinopril 30 mg daily/home medication. Resume pravastatin 80 mg daily when clinically indicated continue hydrocortisone wean continue lasix to 80mg iv q6h add concentrated albumin to maintain intravascular volume. Renal: Acute kidney injury (resolved) Secondary to shock, off pressors continue Read Frequent urine output monitoring Daily creatinine KVO IV fluid. Lasix to mobilize fluid, diamox x 1 on 12/29 -- Strict I/Os FEN/GI: Acute protein calorie malnutritionmoderate Lactic acidosis- resolving. Severe colitis Enterovirus colitis C. difficile colitis Hyperammonemia Acute hypophosphatemia Acute hypernatremia Currently on lactulose 30 cc twice daily Tube feeding with vital 1.5 goal 55 cc now. Metoclopramide 1 mg 3 times daily ICU electrolyte protocol Daily BMP, magnesium, phosphorus Trend lactates Lactulose/polythene glycol twice daily Holding dicyclomine 20 mg 3 times daily Heme/ID: C. difficile colitis Enterovirus colitis Septic shock Healthcare associated multifocal pneumonia Possible gram-positive cocci bacteremia Early empyema 1 unit PRBCs transfused on 12/28 for hemoglobin 6.9, recheck CBC and transfuse to keep hemoglobin above 8 g% Vancomycin IV/p.o. with pharmacy dosing Cefepime, metronidazole, azithromycin and micafungin Bronchoscopy 12/19 with gram-negative rods Pleural fluid 12/19 with gram-negative rods Pleural fluid 12/17 -g Karla albicans/glabrata Klebsiella, gram-positive rods 12/17 -sputum -Klebsiella 12/17 blood-strep viridians/coag negative staph Infectious disease consulted and following. Endocrine: Acute hypoglycemia- resolving. Sliding scale insulin Accu-Cheks every 6 hours to maintain euglycemia Prophylaxis: GI Prophylaxis Famotidine DVT Prophylaxis -- SCDs Subcu heparin Lines: 12/23: RIJ central line placed 12/23 12/17 femoral triple-lumen catheter discontinued 12/23 12/17 right radial arterial line discontinued 12/21 12/17 right 28 [place] chest tube to -40 cm suction: removed 12/26 12/17 right 32 [place] chest tube to -40 cm suction 12/19 -right #32 [place] chest tube to -40 cm suction 12/17 Jacek Updated patient's and daughter regarding current clinical status and plan of care and he voiced understanding and was agreeable. Critical care time 35 minutes excluding procedures
[2017-12-29] MEDS: Potassium Chlor 40 mEq Premix 40 MEQ/100 ML PIGGYBACK IV.SIG PRN ×2 (12:02→23:51)
[2017-12-29] MEDS ORDERED: Epoprostenol (30,000/mL) Neb 15 ML in Sodium Chlor 0.9% Inj 85 ML NEB SCH (13:00)
--- NOTE | 2017-12-29 13:41 | P.PNID ---
Subjective Remarks: remains on 45 % FiO2 PEEP [address] on the R + air leak 1/2 CT increasing SQ emphysema Antibiotics: zosyn vanco PO micafungin Allergies/Adverse Reactions: Allergies No Known Allergies Allergy (Verified 12/13/17 08:04) Objective Vital Signs 12/28/17 14:00 12/28/17 14:25 12/28/17 15:53 Temperature 99.7 F H Pulse Rate 109 H 98 H Respiratory Rate 21 20 Blood Pressure 105/51 L Pulse Oximetry 94 L 100 12/28/17 16:00 12/28/17 16:15 12/28/17 16:30 Temperature 99.7 F H 99.7 F H Pulse Rate 109 H 105 H 105 H Respiratory Rate 24 20 18 Blood Pressure 85/54 L 75/52 L Pulse Oximetry 98 98 12/28/17 17:00 12/28/17 17:30 12/28/17 18:00 Temperature 99.7 F H 98.7 F Pulse Rate 106 H 106 H 102 H Respiratory Rate 18 19 18 Blood Pressure 87/54 L 99/58 L 99/57 L Pulse Oximetry 97 97 12/28/17 19:43 12/28/17 20:00 12/28/17 22:00 Temperature 100.4 F H Pulse Rate 100 H 105 H Respiratory Rate 19 18 Blood Pressure 96/60 L Pulse Oximetry 97 99 12/28/17 23:38 12/29/17 00:00 12/29/17 02:00 Temperature 99.5 F Pulse Rate 102 H 100 H Respiratory Rate 18 18 Blood Pressure 104/54 L Pulse Oximetry 97 98 12/29/17 03:44 12/29/17 04:00 12/29/17 06:00 Temperature 99.4 F Pulse Rate 100 H 105 H Respiratory Rate 24 18 Blood Pressure 96/60 L Pulse Oximetry 97 99 12/29/17 08:27 12/29/17 10:18 12/29/17 11:21 Temperature Pulse Rate 112 H 115 H Respiratory Rate 21 21 20 Blood Pressure Pulse Oximetry 97 96 Intake & Output 12/28/17 12/29/17 12/29/17 18:59 06:59 18:59 Intake Total 2126 / 2126 1911 / 1911 650 / 650 Output Total 5220 / 5220 1760 / 1760 Balance -3094 / -3094 151 / 151 650 / 650 Weight 89.5 kg Intake: IV 1250 / 1250 550 / 550 650 / 650 Diprivan 1000 mg/100 ml Inj 1, 300 / 300 100 / 100 100 / 100 000 mg In 100 ml @ 5 MCG/KG/MIN 2.904 mls/hr IV.CONT TITRATE PRN Rx#:[id number] Flexbumin 25% Inj 100 ML @ 12.5 100 / 100 mls/hr IV.SIG Q8H [facility] Rx#: [id number] Mycamine Inj 150 MG In NS Inj 100 / 100 100 ML @ 100 mls/hr IV.SIG Q24H [facility] Rx#:[id number] Zosyn 4.5 GM Premix 4.5 gm In 200 / 200 100 / 100 200 / 200 100 ml @ 200 mls/hr IV.SIG Q6H [facility] Rx#:[id number] KCl 40 mEq Premix Inj 40 meq In 200 / 200 100 / 100 100 / 100 100 ml @ 25 mls/hr IV.SIG [facility] PRN Rx#:[id number] fentaNYL 10 mcg/mL Premix Drip 250 / 250 250 / 250 250 / 250 2,500 mcg In 250 ml @ 50 MCG/HR 5 mls/hr IV.SIG TITRATE PRN Rx #:[id number] Flolan (30,000 ng/mL) Neb 30 ML 100 / 100 In NS Inj 70 ML @ 5 mls/hr NEB Q8H [facility] Rx#:[id number] Oral 0 / 0 Tube Feeding 676 / 676 411 / 411 Tube Irrigant 100 / 100 Water Bolus Amount 100 / 100 Other 950 / 950 Intake (Blood Product) Amt 0 / 0 Rbc As-3 Leukoreduced Unit 0 / 0 [id number] Output: Urine 4500 / 4500 Urine Amount (Catheter) 1700 / 1700 Indwelling Urethral Catheter 1700 / 1700 Gastric Drainage 100 / 100 Oral 100 / 100 Chest Tube Drainage 620 / 620 60 / 60 #2 Right 560 / 560 0 / 0 #3 Right Upper 60 / 60 60 / 60 Other: Date of Last Bowel Movement 12/28/17 12/28/17 12/29/17 # Bowel Movements 1 # Incontinent Bowel Movements 5 12/19/17 11:30 Bronchial Washings - Bronchial Acid Fast Bacilli Smear - Final No acid fast bacilli seen 12/19/17 11:30 Bronchial Washings - Bronchial Mycobacterial Culture - Preliminary No growth in 1 week 12/19/17 11:30 Bronchial Washings - Bronchial Fungal Smear - Final Rare budding yeast 12/19/17 11:30 Bronchial Washings - Bronchial Fungal Culture - Preliminary No growth in 1 week Lab - Hematology Results 12/28/17 12/28/17 12/29/17 04:24 21:00 05:00 WBC 19.5 H 18.8 H 17.9 H RBC 2.17 L 2.55 L 2.68 L Hgb 6.9 L* 7.9 L 8.5 L Hct 20.5 L* 23.8 L 25.5 L MCV 94.2 93.5 95.0 MCH 31.5 31.1 31.8 MCHC 33.5 33.3 33.5 RDW 15.6 15.0 15.3 Plt Count 322 298 308 MPV 9.3 9.2 9.3 Prelim Diff (Auto) Slide review pending Neut % (Auto) 86.6 H Lymph % (Auto) 5.8 L [place] % (Auto) 7.2 Eos % (Auto) 0.3 Baso % (Auto) 0.1 Neut # (Auto) 16.3 H Lymph # (Auto) 1.1 [place] # (Auto) 1.3 H Eos # (Auto) 0.1 Baso # (Auto) 0.0 WBC Differential . Diff Scan Auto diff confirmed Differential Comment . Platelet Estimate Normal Platelet Morphology Normal Stomatocytes 1+ H Lab - Chemistry Results 12/27/17 12/27/17 12/28/17 12:00 18:08 00:32 Sodium Potassium 4.2 D Chloride Carbon Dioxide Anion Gap BUN Creatinine Estimated GFR POC Glucose 150 H 114 H Random Glucose Calcium Prot Corrected Calcium Phosphorus Magnesium Total Bilirubin AST ALT Alkaline Phosphatase Total Protein Albumin 12/28/17 12/28/17 12/28/17 04:24 14:07 18:35 Sodium 146 H 145 Potassium 2.5 L* D 3.3 L D Chloride 99 98 Carbon Dioxide 41.3 H 40.8 H Anion Gap 6 6 BUN 21 H 23 H Creatinine 0.62 0.68 Estimated GFR Greater than 89 87 L POC Glucose 75 Random Glucose 108 H 105 Calcium 6.4 L* 6.6 L* Prot Corrected Calcium 7.5 L 7.8 L Phosphorus 2.6 2.5 Magnesium 1.3 L 1.3 L Total Bilirubin AST ALT Alkaline Phosphatase Total Protein 4.8 L 4.7 L Albumin 12/28/17 12/29/17 12/29/17 18:47 00:27 05:00 Sodium Potassium 2.9 L* Chloride Carbon Dioxide Anion Gap BUN Creatinine Estimated GFR POC Glucose 115 H 89 Random Glucose Calcium Prot Corrected Calcium Phosphorus Magnesium Total Bilirubin AST ALT Alkaline Phosphatase Total Protein Albumin 12/29/17 12/29/17 12/29/17 06:43 09:10 12:05 Sodium 145 Potassium 3.0 L Chloride 100 Carbon Dioxide 37.9 H Anion Gap 7 BUN 23 H Creatinine 0.66 Estimated GFR Greater than 89 POC Glucose 116 H 128 H Random Glucose 119 H Calcium 6.9 L* Prot Corrected Calcium 7.9 L Phosphorus Magnesium Total Bilirubin 0.4 AST 39 H ALT 20 Alkaline Phosphatase 66 Total Protein 5.1 L Albumin 1.8 L Imaging: ITS Impressions Head CT 12/17/17 08:02 CONCLUSION: 1. 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 2. Otherwise negative. . Abdomen/Pelvis CT 12/17/17 10:45 CONCLUSION: 1. Moderate diffuse colonic wall thickening exaggerated by lack of colonic distention. This may be due to low-protein state/edema. However, differential considerations include infectious and inflammatory colitis. 2. Moderate-sized right hydropneumothorax with airspace disease in the lung bases as described on chest CT. 3. Additional ancillary findings, as above. Chest CT 12/21/17 04:03 CONCLUSION: 1. Moderate size right pneumothorax without tension. Also pneumopericardium and pneumomediastinum. Massive chest wall emphysema. 2. Bilateral airspace disease. 3.7 cm bilobed cavitary lesion of the right lower lobe. 3. Small left pleural effusion. No left pneumothorax. Chest X-Ray 12/29/17 07:29 CONCLUSION: 1. Significant interval increase in bilateral subcutaneous emphysema with small apparent medial right pneumothorax now noted. 2. The patient remains intubated and there are 2 right-sided chest tubes in place. Physical Exam: GENERAL: sedated int'd on mech vent'n SKIN: Warm and dry. NO rash Marked SQ emphymea, + crepitus to palpation over anterior chest EYES: No scleral icterus. No injection or drainage. ENT: No nasal bleeding or discharge. Mucous membranes pink and moist. NECK: Trachea midline. No JVD. CARDIOVASCULAR: Regular rate and rhythm Very distant HS, nearly inaudible RESPIRATORY: No accessory muscle use. +extensive rhocnhi to auscultation. + Amphoric BS on R very disteant saounds Breath sounds decreased bilaterally. CT x 2 R side: superior witn serous dc, no leak noted inferior with air leak and purulent appearing drainage GASTROINTESTINAL: Abdomen soft, non-tender, distended. Hepatic and splenic margins not palpable. MUSCULOSKELETAL: Extremities without clubbing, cyanosis, 2+ edema. No obvious deformities. NEUROLOGICAL: sedated, unresponsive PSYCHIATRIC: unable to assess Assessment and Plan - Plan GPC bacteremia, 1/4 with coag neg staph and vir strep: cw pseudobacteremia BP fistula pleural fluid with C glabrata, Kleb, Lactobac - S PCN. 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
--- NOTE | 2017-12-29 14:01 | P.PNCV ---
- Note Subjective/Hospital Course: pt now has 3 right sided chest tube #3 has 2-3 = air leak , #2 +1 all to 40cm suction pt now off pressors remains sedated on vent 55% fio2 +8 peep may need to re-eval for repeat ct scan in am pt will not tolerate one lung ventilation at this during any surgery will continue to monitor 12/23 pt now on 75% Fi02 peep down to 5 , no on flolan sub q emphysema with some improvement chest x 3 apical #3 +2 continuous air leak mid #2 + 1 air leak lower #1 no air leak all to 40 cm suction will monitor 12/26 Hemodynamically and clinically better One chest tube removed. 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 air leak at site all chest tube site area cleansed with chlorhexidine, iodoform gauze to old chest tube site vaseline gauze to other chest tubes / dry dressing applied / also # 2 chest tube had kink placed 2 tongue depressors along side of tube top prevent kinking and taped to chest pt still had +1-2 air leak in #3 chest tube Objective: Vital Signs - 24 hr 12/28/17 14:00 12/28/17 14:25 12/28/17 15:53 Temperature 99.7 F H Pulse Rate 109 H 98 H Respiratory Rate 21 20 Blood Pressure 105/51 L Pulse Oximetry 94 L 100 12/28/17 16:00 12/28/17 16:15 12/28/17 16:30 Temperature 99.7 F H 99.7 F H Pulse Rate 109 H 105 H 105 H Respiratory Rate 24 20 18 Blood Pressure 85/54 L 75/52 L Pulse Oximetry 98 98 12/28/17 17:00 12/28/17 17:30 12/28/17 18:00 Temperature 99.7 F H 98.7 F Pulse Rate 106 H 106 H 102 H Respiratory Rate 18 19 18 Blood Pressure 87/54 L 99/58 L 99/57 L Pulse Oximetry 97 97 12/28/17 19:43 12/28/17 20:00 12/28/17 22:00 Temperature 100.4 F H Pulse Rate 100 H 105 H Respiratory Rate 19 18 Blood Pressure 96/60 L Pulse Oximetry 97 99 12/28/17 23:38 12/29/17 00:00 12/29/17 02:00 Temperature 99.5 F Pulse Rate 102 H 100 H Respiratory Rate 18 18 Blood Pressure 104/54 L Pulse Oximetry 97 98 12/29/17 03:44 12/29/17 04:00 12/29/17 06:00 Temperature 99.4 F Pulse Rate 100 H 105 H Respiratory Rate 24 18 Blood Pressure 96/60 L Pulse Oximetry 97 99 12/29/17 07:45 12/29/17 08:00 12/29/17 08:15 Temperature 99.3 F Pulse Rate 109 H 110 H 118 H Respiratory Rate 23 22 16 Blood Pressure 111/72 107/69 142/69 H Pulse Oximetry 97 98 97 12/29/17 08:27 12/29/17 08:30 12/29/17 08:45 Temperature Pulse Rate 112 H 118 H 116 H Respiratory Rate 21 23 22 Blood Pressure 130/60 116/65 Pulse Oximetry 97 94 L 95 12/29/17 09:00 12/29/17 09:15 12/29/17 09:30 Temperature Pulse Rate 118 H 114 H 110 H Respiratory Rate 22 21 24 Blood Pressure 122/77 117/74 114/71 Pulse Oximetry 94 L 96 96 12/29/17 09:45 12/29/17 10:00 12/29/17 10:15 Temperature Pulse Rate 110 H 125 H 122 H Respiratory Rate 22 43 H 35 H Blood Pressure 112/69 150/77 H 110/64 Pulse Oximetry 96 76 L 97 12/29/17 10:18 12/29/17 10:30 12/29/17 10:45 Temperature Pulse Rate 118 H 114 H Respiratory Rate 21 25 H 22 Blood Pressure 106/63 97/57 L Pulse Oximetry 96 95 94 L 12/29/17 11:00 12/29/17 11:16 12/29/17 11:21 Temperature Pulse Rate 113 H 120 H 115 H Respiratory Rate 20 21 20 Blood Pressure 95/56 L 144/91 H Pulse Oximetry 95 98 12/29/17 11:30 12/29/17 11:45 12/29/17 12:00 Temperature 100.3 F H Pulse Rate 114 H 108 H 109 H Respiratory Rate 23 19 17 Blood Pressure 108/59 L 98/56 L 95/52 L Pulse Oximetry 93 L 94 L 95 12/29/17 12:15 12/29/17 12:30 12/29/17 12:45 Temperature Pulse Rate 115 H 109 H 109 H Respiratory Rate 23 19 20 Blood Pressure 118/69 113/64 104/60 Pulse Oximetry 95 95 95 12/29/17 13:00 12/29/17 13:15 12/29/17 13:30 Temperature Pulse Rate 122 H 109 H 104 H Respiratory Rate 21 26 H 21 Blood Pressure 131/96 H 117/66 102/58 L Pulse Oximetry 97 96 94 L 12/29/17 13:45 Temperature Pulse Rate 104 H Respiratory Rate 19 Blood Pressure 108/70 Pulse Oximetry 95 GENERAL: sedated on vent SKIN: Warm and dry. HEAD: Normocephalic. EYES: No scleral icterus. No injection or drainage. NECK: Supple, trachea midline. No JVD or lymphadenopathy. CARDIOVASCULAR: Regular rate and rhythm without murmurs, gallops, or rubs. RESPIRATORY: insp exp wheeze/ air leak noted to chest tube site chest tube x 2 to 20cm suction Breath sounds more diminished on right No accessory muscle use. GASTROINTESTINAL: Abdomen soft, non-tender, nondistended. MUSCULOSKELETAL: No cyanosis, or edema. BACK: Nontender without obvious deformity. No CVA tenderness. Labs: Laboratory Results - last 12 hr 12/29/17 12/29/17 12/29/17 05:00 05:00 05:00 WBC 17.9 H RBC 2.68 L Hgb 8.5 L Hct 25.5 L MCV 95.0 MCH 31.8 MCHC 33.5 RDW 15.3 Plt Count 308 MPV 9.3 Puncture Site Right radial Patient Temperature 98.6 O2 Saturation 94 ABG pH 7.48 H ABG pCO2 50 H ABG pO2 81 ABG HCO3 37 H ABG O2 Content 11.7 L ABG Base Excess 12.5 H ABG Methemoglobin 1.8 [place] Test Present Hemoglobin 8.8 L Carboxyhemoglobin 1.1 O2 Delivery Device Ventilator Vent Setting Prvc/ac Inspired O2 55 Critical Value No Sodium Potassium 2.9 L* Chloride Carbon Dioxide Anion Gap BUN Creatinine Estimated GFR POC Glucose Random Glucose Calcium Prot Corrected Calcium Total Bilirubin AST ALT Alkaline Phosphatase Total Protein Albumin 12/29/17 12/29/17 12/29/17 06:43 09:10 12:05 WBC RBC Hgb Hct MCV MCH MCHC RDW Plt Count MPV Puncture Site Patient Temperature O2 Saturation ABG pH ABG pCO2 ABG pO2 ABG HCO3 ABG O2 Content ABG Base Excess ABG Methemoglobin [place] Test Hemoglobin Carboxyhemoglobin O2 Delivery Device Vent Setting Inspired O2 Critical Value Sodium 145 Potassium 3.0 L Chloride 100 Carbon Dioxide 37.9 H Anion Gap 7 BUN 23 H Creatinine 0.66 Estimated GFR Greater than 89 POC Glucose 116 H 128 H Random Glucose 119 H Calcium 6.9 L* Prot Corrected Calcium 7.9 L Total Bilirubin 0.4 AST 39 H ALT 20 Alkaline Phosphatase 66 Total Protein 5.1 L Albumin 1.8 L Result Diagrams: 12/29/17 05:00 12/29/17 09:10 - Plan (1) Respiratory failure Plan: pt still requiring high flow 02/ on 55% on flolan would not tolerate one lung ventilation for surgery will continue to monitor (2) Pneumonia (1) Respiratory failure Qualifiers: Chronicity: acute Respiratory failure complication: hypoxia and hypercapnia Qualified Code(s): J96.01 - Acute respiratory failure with hypoxia; J96.02 - Acute respiratory failure with hypercapnia (2) Pneumonia Qualifiers: Pneumonia type: due to unspecified organism Laterality: bilateral Lung location: unspecified part of lung Qualified Code(s): J18.9 - Pneumonia, unspecified organism
--- NOTE | 2017-12-29 14:27 | P.PNWCN ---
Wound Care Nurse Consult Description: Received wound management consult for sacral area from Doctor Garces Communicated with: ROSAMARIA Crawford. [facility] [place] Chuy Recommendation: 1.Please cleanse wound to R iliac crest with normal saline only and pat dry. Apply Santyl ointment destiny thickness to wound bed. Apply moistened 2x2 fluffed gauze over wound bed avoiding surrounding intact skin Cover wound with dry bordered gauze and change daily. 2.Please turn patient every 2 hours and PRN for comfort from L side to R side limiting time spent on back for P. T. and meals. 3. Please place patinet on low airloss surface airapy or K4 from [facility] when it arrives 4. Please Vocera wound care nurse for wound deterioration Wound/Pressure Injury - Wound Right iliac crest Wound Staging: Unstageable Wound Type: Pressure Injury Is This a Chronic Wound: No Requested from Provider a Wound Care Consult: Yes Length (cm): 4.5 Width (cm): 6 Depth (cm): 0 (thin yellow/brown slough) Wound Bed Appearance: Necrotic, [place] Wound Bed Appearance: Wound bed presents ~80% thin yellow/brown adherent, dry slough and ~20% pink tissue. Surrounding Tissue Appearance: [place] Surrounding Tissue Temperature: Cool Drainage Description: Serosanguinous Drainage Amount: Scant Dressing Status: Open to Air Cleansing Solution: Saline Wound Margin Description: Wound margins are even and well defined - Additional Information Patient seen on [facility] [place] for evaluation of wound to sacral area. Patient was turned with the assistance Melissa Crawford, other floor RN, senior writer. Respiratory therapist was in the room. Patinet is noted with unstagable pressure injury to R iliac crest or R side of the lower back. Wound appears shallow, but true depth is unable to be assessed at this time due to the amount of slough in wound. Wound also presents with mixed etiology of pressure and friction. Wound was cleansed with normal saline and left open to air at this time. RN to apply dressing when Santyl is available.
[2017-12-29] MEDS ORDERED: Cathflo Activase Inj 2 MG Vial I-CATHETER ONE (14:45)
[2017-12-29] MEDS: Micafungin Inj 150 MG in Sodium Chlor 0.9% Inj 100 ML IV.SIG SCH (16:09)
[2017-12-29] MEDS: Collagenase Oint 30 GM Tube TOPICAL SCH (18:03)
[2017-12-29] MEDS: QUEtiapine 25 MG Tablet PO SCH (22:13)
[2017-12-30] MEDS: Epoprostenol (30,000/mL) Neb 30 ML in Sodium Chlor 0.9% Inj 70 ML NEB SCH (02:54)
[2017-12-30] MEDS: Piperacil/Tazo 4.5 GM Premix 4.5 GM/100 ML BAG IV.SIG SCH ×4 (03:33→21:34)
[2017-12-30] MEDS: Oral Hygiene Kit OROPHARYNG SCH ×3 (03:33→15:39)
[2017-12-30] MEDS: Potassium Chlor 40 mEq Premix 40 MEQ/100 ML PIGGYBACK IV.SIG PRN (03:34)
[2017-12-30] MEDS: Propofol 1000 mg/100 ml Inj 1,000 MG/100 ML BOTTLE IV.CONT PRN ×7 (03:34→22:15)
[2017-12-30 05:12] LABS: ABG Base Excess 11.3 mmol/L (-2-2); ABG PCO2 60 mmHg (38-42); ABG PO2 88 mmHG (61-120)
[2017-12-30] MEDS: Heparin - SQ 10,000 UNITS/ML Vial SQ SCH ×3 (05:26→22:16)
[2017-12-30] MEDS: Hydrocortisone Sod Succinate 100 MG Vial IV.PUSH SCH (05:27)
[2017-12-30] MEDS: fentaNYL 10 mcg/mL Premix Drip 2,500 MCG/250 ML BAG IV.SIG PRN ×3 (05:27→17:56)
[2017-12-30] MEDS: Insulin NovoLIN Regular Correctional Sugar Inj SQ SCH ×3 (05:38→17:19)
[2017-12-30 08:09] LABS: Anion Gap 6 meq/L (5-15); Blood Urea Nitrogen 23 mg/dL (7-18); Calcium 6.8 mg/dL (8.5-10.1); Carbon Dioxide 40.3 meq/L (21.0-32.0); Chloride 99 meq/L (98-107); Glomerular Filtration Rate Greater Than 89 mL/min (>89); Glucose,Random 107 mg/dL (74-106); Magnesium 1.5 mg/dL (1.5-2.5); Phosphorus 3.6 mg/dL (2.5-4.9); Potassium 3.4 meq/L (3.5-5.1); Sodium 145 meq/L (136-145)
[2017-12-30] MEDS: Chlorhexidine 0.12% Oral Kit 15 ML UDC OROPHARYNG SCH ×2 (08:12→20:01)
[2017-12-30] MEDS: Collagenase Oint 30 GM Tube TOPICAL SCH (08:13)
[2017-12-30] MEDS: Sodium Chloride 0.9% 2 ML Flush BID IV.FLUSH SCH ×2 (08:14→20:01)
[2017-12-30] MEDS: Polyethylene Glycol 3350 17 GM Packet PO SCH ×2 (08:14→20:01)
[2017-12-30] MEDS: Senna/Docusate Sodium 8.6/50 MG Tablet PO SCH ×2 (08:15→20:02)
[2017-12-30] MEDS: Famotidine 20 MG Tablet PO SCH ×2 (08:15→20:01)
[2017-12-30] MEDS: Carboxymethylcellulose 0.5% Opth Drops 15 ML Bottle EACH EYE SCH ×2 (08:15→20:02)
[2017-12-30 08:27] LABS: Hematocrit 23.8 % (35.0-46.0); Hemoglobin 8.4 gm/dL (11.6-15.3); Mean Corpuscular HGB Conc 35.1 % (32.0-36.0); Mean Corpuscular Hemoglobin 33.5 pg (27.0-34.0); Mean Corpuscular Volume 95.3 fL (80.0-100.0); Mean Platelet Volume 9.3 fL (7.0-11.0); Platelet Count 314 th/mm3 (150-450); Red Cell Distribution Width 15.4 % (11.6-17.2); White Blood Count 16.1 th/mm3 (4.0-11.0)
[2017-12-30 08:56] LABS: Calcium-Albumin Corrected 7.9 mg/dL (8.5-10.1)
--- NOTE | 2017-12-30 09:34 | XR ---
EXAM DATE: 12/30/2017 9:21 AM EST AGE/SEX: 62 years / Female INDICATIONS: Respiratory Failure. CLINICAL DATA: This is the patient's subsequent encounter. Patient reports that signs and symptoms h ave been present for 1 week and indicates a pain score of Nonresponsive. MEDICAL/SURGICAL HISTORY: . Hypertension. . Chest tube, left. Chest tube, right. COMPARISON: [facility], CHEST 1V SINGLE AP, 12/29/2017. . FINDINGS: Diffuse interstitial alveolar process remains evident throughout both lungs. 2 right-sided chest tubes are in stable position. There is no evidence of pneumothorax. Endotracheal tube, nasogastric tube and right jugular central line remain in stable position. Heart and mediastinal structures are stable. Extensive subcutaneous emphysema throughout the chest wall and neck is again noted. CONCLUSION: 1. No significant change. 2. No evidence of pneumothorax. 3. Stable supportive devices. 4. Extensive airspace disease remains evident throughout both lungs without significant improvement. Electronically signed by: Gabe Estes MD 12/30/2017 9:32 AM EST
[2017-12-30] MEDS: Magnesium Sulfate Inj 2 GM in Sodium Chlor 0.9% Inj 96 ML IV.SIG PRN (09:47)
[2017-12-30] MEDS: Potassium Chloride 25 MEQ Effervescent Tablet PO PRN (13:06)
[2017-12-30] MEDS: Potassium Chlor 20 mEq Premix 20 MEQ/100 ML PIGGYBACK IV.SIG PRN (13:07)
--- NOTE | 2017-12-30 15:48 | P.PNID ---
Subjective Remarks: remains on 45 % FiO2 PEEP [address] on the R + air leak 1/2 CT less prominent SQ emphysema Antibiotics: zosyn vanco PO micafungin Allergies/Adverse Reactions: Allergies No Known Allergies Allergy (Verified 12/13/17 08:04) Objective Vital Signs 12/29/17 16:00 12/29/17 16:15 12/29/17 16:47 Temperature 99 F Pulse Rate 108 H 102 H 99 H Respiratory Rate 18 17 15 Blood Pressure 107/65 98/54 L Pulse Oximetry 94 L 94 L 12/29/17 18:00 12/29/17 19:30 12/29/17 19:42 Temperature Pulse Rate 105 H 103 H Respiratory Rate 16 17 Blood Pressure 98/55 L Pulse Oximetry 93 L 97 12/29/17 19:45 12/29/17 19:53 12/29/17 20:00 Temperature 99.3 F Pulse Rate 103 H 105 H 101 H Respiratory Rate 17 17 16 Blood Pressure 96/55 L 92/53 L Pulse Oximetry 95 96 12/29/17 20:15 12/29/17 20:30 12/29/17 20:45 Temperature Pulse Rate 100 H 97 H 96 H Respiratory Rate 15 15 14 Blood Pressure 90/51 L 84/53 L 89/51 L Pulse Oximetry 96 96 95 12/29/17 21:00 12/29/17 21:15 12/29/17 21:30 Temperature Pulse Rate 98 H 93 H 91 H Respiratory Rate 15 13 14 Blood Pressure 94/58 L 87/54 L 84/54 L Pulse Oximetry 98 96 96 12/29/17 21:45 12/29/17 22:00 12/29/17 22:15 Temperature Pulse Rate 93 H 93 H 89 Respiratory Rate 14 14 14 Blood Pressure 84/52 L 86/53 L 86/54 L Pulse Oximetry 96 96 96 12/29/17 22:30 12/29/17 23:00 12/29/17 23:30 Temperature Pulse Rate 91 H 99 H 95 H Respiratory Rate 31 H 19 25 H Blood Pressure 104/59 L 91/50 L 87/51 L Pulse Oximetry 98 96 92 L 12/29/17 23:36 12/29/17 23:58 12/30/17 00:00 Temperature 99.2 F Pulse Rate 91 H 101 H 101 H Respiratory Rate 16 16 15 Blood Pressure 90/52 L 94/53 L Pulse Oximetry 94 L 93 L 94 L 12/30/17 00:33 12/30/17 01:00 12/30/17 01:30 Temperature Pulse Rate 111 H 109 H 105 H Respiratory Rate 19 19 16 Blood Pressure 110/64 122/72 118/69 Pulse Oximetry 94 L 95 93 L 12/30/17 02:00 12/30/17 02:30 12/30/17 03:00 Temperature Pulse Rate 110 H 118 H 107 H Respiratory Rate 19 22 20 Blood Pressure 116/71 121/73 111/67 Pulse Oximetry 93 L 91 L 95 12/30/17 03:30 12/30/17 04:00 12/30/17 04:30 Temperature 99.8 F H Pulse Rate 117 H 98 H 102 H Respiratory Rate 25 H 16 22 Blood Pressure 135/79 101/58 L 92/59 L Pulse Oximetry 88 L 95 95 12/30/17 04:54 12/30/17 05:00 12/30/17 05:30 Temperature Pulse Rate 99 H 104 H 109 H Respiratory Rate 12 23 18 Blood Pressure 132/72 118/68 Pulse Oximetry 95 99 95 12/30/17 06:00 12/30/17 06:01 12/30/17 06:30 Temperature Pulse Rate 122 H 115 H 102 H Respiratory Rate 28 H 44 H 16 Blood Pressure 129/64 93/55 L Pulse Oximetry 80 L 94 L 92 L 12/30/17 07:00 12/30/17 07:30 12/30/17 07:44 Temperature Pulse Rate 101 H 103 H 101 H Respiratory Rate 14 20 16 Blood Pressure 100/62 95/59 L Pulse Oximetry 93 L 95 94 L 12/30/17 08:00 12/30/17 08:30 12/30/17 09:00 Temperature 99 F Pulse Rate 100 H 103 H 99 H Respiratory Rate 16 14 17 Blood Pressure 91/56 L 109/63 87/53 L Pulse Oximetry 94 L 97 12/30/17 09:30 12/30/17 10:00 12/30/17 10:30 Temperature Pulse Rate 97 H 91 H 85 Respiratory Rate 16 18 16 Blood Pressure 89/56 L 84/51 L 84/52 L Pulse Oximetry 97 97 96 12/30/17 11:00 12/30/17 11:01 12/30/17 11:28 Temperature Pulse Rate 86 87 118 H Respiratory Rate 18 16 27 H Blood Pressure 80/50 L 83/52 L 125/71 Pulse Oximetry 96 96 98 12/30/17 11:30 12/30/17 11:41 12/30/17 12:00 Temperature 98.8 F Pulse Rate 115 H 108 H 113 H Respiratory Rate 25 H 20 27 H Blood Pressure 121/74 116/74 Pulse Oximetry 97 96 95 12/30/17 12:30 12/30/17 14:00 12/30/17 15:02 Temperature Pulse Rate 98 H 97 H Respiratory Rate 16 16 Blood Pressure 95/59 L Pulse Oximetry 96 100 Intake & Output 12/29/17 12/30/17 12/30/17 18:59 06:59 18:59 Intake Total 1684 / 1684 2229 / 2229 1050 / 1050 Output Total 4430 / 4430 2705 / 2705 Balance -2746 / -2746 -476 / -476 1050 / 1050 Weight 82.6 kg Intake: IV 1050 / 1050 1100 / 1100 1050 / 1050 Diprivan 1000 mg/100 ml Inj 1, 200 / 200 400 / 400 300 / 300 000 mg In 100 ml @ 5 MCG/KG/MIN 2.904 mls/hr IV.CONT TITRATE PRN Rx#:[id number] Magnesium Sulfate Inj 2 GM In 100 / 100 NS Inj 96 ML @ 50 mls/hr IV.SIG UNSCH PRN Rx#:[id number] Mycamine Inj 150 MG In NS Inj 100 / 100 100 ML @ 100 mls/hr IV.SIG Q24H [place] Rx#:[id number] Zosyn 4.5 GM Premix 4.5 gm In 300 / 300 100 / 100 200 / 200 100 ml @ 200 mls/hr IV.SIG Q6H [place] Rx#:[id number] KCl 40 mEq Premix Inj 40 meq In 200 / 200 100 / 100 100 / 100 100 ml @ 25 mls/hr IV.SIG Q2H PRN Rx#:[id number] fentaNYL 10 mcg/mL Premix Drip 250 / 250 500 / 500 250 / 250 2,500 mcg In 250 ml @ 50 MCG/HR 5 mls/hr IV.SIG TITRATE PRN Rx #:[id number] Flolan (30,000 ng/mL) Neb 15 ML 100 / 100 In NS Inj 85 ML @ 8 mls/hr NEB ONCE [facility] Rx#:[id number] Flolan (30,000 ng/mL) Neb 30 ML 0 / 0 In NS Inj 70 ML @ 5 mls/hr NEB Q8H [facility] Rx#:[id number] Oral 0 / 0 Tube Feeding 544 / 544 659 / 659 Tube Irrigant 90 / 90 60 / 60 Water Bolus Amount 0 / 0 Other Rbc As-3 Leukoreduced Unit [id number] Intake (Blood Product) Amt 400 / 400 Rbc As-3 Leukoreduced Unit 400 / 400 [id number] Output: Urine 0 / 0 Urine/Stool Mix 0 / 0 Urine Amount (Catheter) 4300 / 4300 2475 / 2475 Indwelling Urethral Catheter 4300 / 4300 2475 / 2475 Gastric Drainage 100 / 100 Oral 100 / 100 Chest Tube Drainage 130 / 130 130 / 130 #2 Right 30 / 30 30 / 30 #3 Right Upper 100 / 100 100 / 100 Other: Other Intake Source Rbc As-3 Leukoreduced Unit Saline Solution [id number] # Voids 0 Date of Last Bowel Movement 12/29/17 12/29/17 12/29/17 # Bowel Movements 2 2 # Incontinent Bowel Movements 2 12/19/17 11:30 Bronchial Washings - Bronchial Fungal Smear - Final Rare budding yeast 12/19/17 11:30 Bronchial Washings - Bronchial Fungal Culture - Preliminary Yeast - ID to follow Lab - Hematology Results 12/28/17 12/29/17 12/30/17 21:00 05:00 07:17 WBC 18.8 H 17.9 H 16.1 H RBC 2.55 L 2.68 L 2.50 L Hgb 7.9 L 8.5 L 8.4 L Hct 23.8 L 25.5 L 23.8 L MCV 93.5 95.0 95.3 MCH 31.1 31.8 33.5 MCHC 33.3 33.5 35.1 RDW 15.0 15.3 15.4 Plt Count 298 308 314 MPV 9.2 9.3 9.3 Prelim Diff (Auto) Slide review pending Neut % (Auto) 86.6 H Lymph % (Auto) 5.8 L Powell % (Auto) 7.2 Eos % (Auto) 0.3 Baso % (Auto) 0.1 Neut # (Auto) 16.3 H Lymph # (Auto) 1.1 Powell # (Auto) 1.3 H Eos # (Auto) 0.1 Baso # (Auto) 0.0 WBC Differential . Diff Scan Auto diff confirmed Differential Comment . Platelet Estimate Normal Platelet Morphology Normal Stomatocytes 1+ H Lab - Chemistry Results 12/28/17 12/28/17 12/29/17 18:35 18:47 00:27 Sodium 145 Potassium 3.3 L D Chloride 98 Carbon Dioxide 40.8 H Anion Gap 6 BUN 23 H Creatinine 0.68 Estimated GFR 87 L POC Glucose 115 H 89 Random Glucose 105 Calcium 6.6 L* Prot Corrected Calcium 7.8 L Phosphorus 2.5 Magnesium 1.3 L Total Bilirubin AST ALT Alkaline Phosphatase Total Protein 4.7 L Albumin 12/29/17 12/29/17 12/29/17 05:00 06:43 09:10 Sodium 145 Potassium 2.9 L* 3.0 L Chloride 100 Carbon Dioxide 37.9 H Anion Gap 7 BUN 23 H Creatinine 0.66 Estimated GFR Greater than 89 POC Glucose 116 H Random Glucose 119 H Calcium 6.9 L* Prot Corrected Calcium 7.9 L Phosphorus Magnesium Total Bilirubin 0.4 AST 39 H ALT 20 Alkaline Phosphatase 66 Total Protein 5.1 L Albumin 1.8 L 12/29/17 12/29/17 12/29/17 12:05 17:43 22:31 Sodium Potassium 2.9 L* Chloride Carbon Dioxide Anion Gap BUN Creatinine Estimated GFR POC Glucose 128 H 135 H Random Glucose Calcium Prot Corrected Calcium Phosphorus Magnesium Total Bilirubin AST ALT Alkaline Phosphatase Total Protein Albumin 12/29/17 12/30/17 12/30/17 23:42 05:38 07:17 Sodium 145 Potassium 3.4 L Chloride 99 Carbon Dioxide 40.3 H Anion Gap 6 BUN 23 H Creatinine 0.59 Estimated GFR Greater than 89 POC Glucose 146 H 101 Random Glucose 107 H Calcium 6.8 L* Prot Corrected Calcium 7.9 L Phosphorus 3.6 D Magnesium 1.5 Total Bilirubin AST ALT Alkaline Phosphatase Total Protein 5.0 L Albumin 12/30/17 12/30/17 11:35 11:39 Sodium Potassium 3.0 L Chloride Carbon Dioxide Anion Gap BUN Creatinine Estimated GFR POC Glucose 144 H Random Glucose Calcium Prot Corrected Calcium Phosphorus Magnesium Total Bilirubin AST ALT Alkaline Phosphatase Total Protein Albumin Imaging: ITS Impressions Head CT 12/17/17 08:02 CONCLUSION: 1. 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 2. Otherwise negative. . Abdomen/Pelvis CT 12/17/17 10:45 CONCLUSION: 1. Moderate diffuse colonic wall thickening exaggerated by lack of colonic distention. This may be due to low-protein state/edema. However, differential considerations include infectious and inflammatory colitis. 2. Moderate-sized right hydropneumothorax with airspace disease in the lung bases as described on chest CT. 3. Additional ancillary findings, as above. Chest CT 12/21/17 04:03 CONCLUSION: 1. Moderate size right pneumothorax without tension. Also pneumopericardium and pneumomediastinum. Massive chest wall emphysema. 2. Bilateral airspace disease. 3.7 cm bilobed cavitary lesion of the right lower lobe. 3. Small left pleural effusion. No left pneumothorax. Chest X-Ray 12/30/17 07:39 CONCLUSION: 1. No significant change. 2. No evidence of pneumothorax. 3. Stable supportive devices. 4. Extensive airspace disease remains evident throughout both lungs without significant improvement. Physical Exam: GENERAL: sedated int'd on mech vent'n SKIN: Warm and dry. NO rash les sprominent SQ emphymea, + crepitus to palpation over anterior chest EYES: No scleral icterus. No injection or drainage. ENT: No nasal bleeding or discharge. Mucous membranes pink and moist. NECK: Trachea midline. No JVD. CARDIOVASCULAR: Regular rate and rhythm Very distant HS, nearly inaudible RESPIRATORY: No accessory muscle use. +extensive rhocnhi to auscultation. + Amphoric BS on R very disteant saounds Breath sounds decreased bilaterally. CT x 2 R side: superior witn serous dc, no leak noted inferior with air leak and purulent appearing drainage GASTROINTESTINAL: Abdomen soft, non-tender, distended. Hepatic and splenic margins not palpable. MUSCULOSKELETAL: Extremities without clubbing, cyanosis, 2+ edema. No obvious deformities. NEUROLOGICAL: sedated, unresponsive PSYCHIATRIC: unable to assess Assessment and Plan - Plan GPC bacteremia, 1/ with coag neg staph and vir strep: cw pseudobacteremia BP fistula pleural fluid with C glabrata, Kleb, Lactobac - S PCN. R Meropenem - unsuitable for fistula repair PNA, GNB R complicated fluid collection pneumohydrothorax 2/2 BP fistula sp CTx 3 placements Acute VDRF recent pseudomembranous colitis - stool now formed, bowell thickening on CT + DNA sepsis hemodynamically stable, off pressors persistent leukocytosis cont zosyn : that will cover both lactobac and Kleb cont micafungin for grace cont oral vanco for c.diff x 14 days dw RN
[2017-12-30] MEDS: Micafungin Inj 150 MG in Sodium Chlor 0.9% Inj 100 ML IV.SIG SCH (17:31)
--- NOTE | 2017-12-30 19:53 | P.PNCC ---
Subjective Subjective Remarks/Hospital Course: This is a 62yF who was originally admitted on 11/23 with a diagnosis of colitis, found to have enterovirus. discharged on 12/11 at that time on PO vancomycin, but came back on 12/13 with altered mental status and hypoglycemia, again discharged on 12/15. She was mildly fatigued on 12/16 according to her and asked to wait another day before traveling back to her home in [place]. This morning, she was unarousable and her called 911. She was intubated upon arrival to the emergency department for agonal respirations. CXR demonstrates bilateral multifocal pneumonia. She is febrile, hypotensive. CVL placed in the ER and vasopressors initiated after 2L bolus crystalloid. CT chest/abd/pelvis demonstrates right pneumothorax, densely consolidated right lower lobe, bilateral pulmonary infiltrates, evidence of ongoing colitis. Patient continue to be unstable. Immediately after identifying ptx on CT scan, I emergently placed right chest tube with some improvements in hemodynamics, but ongoing distributive shock persists. I placed arterial line. No additional information available from the patient, ROS unobtainable. In discussion with the , she has not had any new complaints in the 48h she was home, and other than mild fatigue last night, no new complaints. She was able to walk to the bathroom without assistance yesterday. 12/18: shock remains. now on levophed, vasopressin, phenylephrine. second chest tube placed overnight for worsening SQ air. acidosis remains and is severe. 12/19: Afebrile. Remains on vasopressin drip only. On stress dose hydrocortisone. Evaluated by CT surgery. Not a candidate for intervention at the present time. Chest tube continues to leak. Epoprostenol added today 12/20: Afebrile. FiO2 has decreased and is currently 70%. Currently replacing potassium, phosphorus and magnesium. Recheck later this afternoon. Less chest tube leak today down to 1 chamber. 12/21: Overnight, worsening subcutaneous emphysema. A third chest tube placed by overnight program manager environmental planning after discussion with cardiothoracic surgery. Currently hemodynamically stable. Replacing phosphorus today. To be evaluated by CT surgery today. 12/22: Remains sedated, orally intubated on mechanical ventilation. Persistent air leak and chest tube noted. 12/23: Remains sedated, orally intubated on mechanical ventilation. Air leak persists though slightly improved. PEEP at +5 FiO2 55%, inhaled Flolan continues. Central line replaced with right IJ triple-lumen catheter. 12/24: Remains sedated, orally intubated on mechanical ventilation. 1+ air leak from chest tube 3 noted. PEEP +5, FiO2 60%, inhaled Flolan continues. Decreasing subcutaneous emphysema noted. 12/25: Remains sedated, orally improved on mechanical ventilation. 1+ for leak from chest tube 2. PEEP +5, FiO2 50%. Starting to titrate inhaled Flolan down today. Initiating Lasix to mobilize fluid. SUBJECTIVE: 12/26: remains intubated. air leak continues from chest tube #3. drainage out of #1 and #2 are very serous. #1 was removed by myself today. all chest tube dressings changed by me today. repeat CXR pending. very volume overloaded. starting to diurese. off vasopressors. off pathway: still high fio2 requirements. 12/27: good diuresis overnight. very hypokalemic today and aggressively replacing. CXR unchanged. air leak unchanged. long discussion over long-term and short-term prognosis and plan of care with entire family today. all questions answered. 12/28: Continues to diurese. Remains on mechanical ventilation. Positive air leak in chest tube 3. 1 unit PRBCs transfused earlier for hemoglobin 6.9. 12/29: Remains on mechanical ventilation. Increasing subcutaneous emphysema noted. Air leak stopped and chest tube #2 and 3 currently. Flolan being titrated down. Chest x-ray shows appropriate positioning of 2 chest tubes with the more medial small right pneumothorax with significant subcutaneous emphysema bilaterally. Patient remains off pressors and is being diuresed to mobilize fluid. 12/30: volume removal continues. Cr still at baseline. fio2 down to 40% and off inhaled Flolan. discussed with Dr. Lynn: will need to wait at least until next week for VATS. Will need trach going forward: discussed with family and they are agreeable. Dr. Lynn asked that both chest tubes remain in place. air leak persists. remains intubated and sedated. Objective Vital Signs / I&O: Vital Signs 12/29/17 19:53 12/29/17 20:00 12/29/17 20:15 Temperature 37.4 C Pulse Rate 105 H 101 H 100 H Respiratory Rate 17 16 15 Blood Pressure 92/53 L 90/51 L Pulse Oximetry 96 96 12/29/17 20:30 12/29/17 20:45 12/29/17 21:00 Temperature Pulse Rate 97 H 96 H 98 H Respiratory Rate 15 14 15 Blood Pressure 84/53 L 89/51 L 94/58 L Pulse Oximetry 96 95 98 12/29/17 21:15 12/29/17 21:30 12/29/17 21:45 Temperature Pulse Rate 93 H 91 H 93 H Respiratory Rate 13 14 14 Blood Pressure 87/54 L 84/54 L 84/52 L Pulse Oximetry 96 96 96 12/29/17 22:00 12/29/17 22:15 12/29/17 22:30 Temperature Pulse Rate 93 H 89 91 H Respiratory Rate 14 14 31 H Blood Pressure 86/53 L 86/54 L 104/59 L Pulse Oximetry 96 96 98 12/29/17 23:00 12/29/17 23:30 12/29/17 23:36 Temperature Pulse Rate 99 H 95 H 91 H Respiratory Rate 19 25 H 16 Blood Pressure 91/50 L 87/51 L Pulse Oximetry 96 92 L 94 L 12/29/17 23:58 12/30/17 00:00 12/30/17 00:33 Temperature 37.3 C Pulse Rate 101 H 101 H 111 H Respiratory Rate 16 15 19 Blood Pressure 90/52 L 94/53 L 110/64 Pulse Oximetry 93 L 94 L 94 L 12/30/17 01:00 12/30/17 01:30 12/30/17 02:00 Temperature Pulse Rate 109 H 105 H 110 H Respiratory Rate 19 16 19 Blood Pressure 122/72 118/69 116/71 Pulse Oximetry 95 93 L 93 L 12/30/17 02:30 12/30/17 03:00 12/30/17 03:30 Temperature Pulse Rate 118 H 107 H 117 H Respiratory Rate 22 20 25 H Blood Pressure 121/73 111/67 135/79 Pulse Oximetry 91 L 95 88 L 12/30/17 04:00 12/30/17 04:30 12/30/17 04:54 Temperature 37.7 C H Pulse Rate 98 H 102 H 99 H Respiratory Rate 16 22 12 Blood Pressure 101/58 L 92/59 L Pulse Oximetry 95 95 95 12/30/17 05:00 12/30/17 05:30 12/30/17 06:00 Temperature Pulse Rate 104 H 109 H 122 H Respiratory Rate 23 18 28 H Blood Pressure 132/72 118/68 Pulse Oximetry 99 95 80 L 12/30/17 06:01 12/30/17 06:30 12/30/17 07:00 Temperature Pulse Rate 115 H 102 H 101 H Respiratory Rate 44 H 16 14 Blood Pressure 129/64 93/55 L 100/62 Pulse Oximetry 94 L 92 L 93 L 12/30/17 07:30 12/30/17 07:44 12/30/17 08:00 Temperature 37.2 C Pulse Rate 103 H 101 H 100 H Respiratory Rate 20 16 16 Blood Pressure 95/59 L 91/56 L Pulse Oximetry 95 94 L 94 L 12/30/17 08:30 12/30/17 09:00 12/30/17 09:30 Temperature Pulse Rate 103 H 99 H 97 H Respiratory Rate 14 17 16 Blood Pressure 109/63 87/53 L 89/56 L Pulse Oximetry 97 97 12/30/17 10:00 12/30/17 10:30 12/30/17 11:00 Temperature Pulse Rate 91 H 85 86 Respiratory Rate 18 16 18 Blood Pressure 84/51 L 84/52 L 80/50 L Pulse Oximetry 97 96 96 12/30/17 11:01 12/30/17 11:28 12/30/17 11:30 Temperature Pulse Rate 87 118 H 115 H Respiratory Rate 16 27 H 25 H Blood Pressure 83/52 L 125/71 121/74 Pulse Oximetry 96 98 97 12/30/17 11:41 12/30/17 12:00 12/30/17 12:30 Temperature 37.1 C Pulse Rate 108 H 113 H 98 H Respiratory Rate 20 27 H 16 Blood Pressure 116/74 95/59 L Pulse Oximetry 96 95 96 12/30/17 13:00 12/30/17 13:30 12/30/17 14:00 Temperature Pulse Rate 97 H 105 H 97 H Respiratory Rate 22 18 14 Blood Pressure 119/68 104/63 86/51 L Pulse Oximetry 98 100 98 12/30/17 14:30 12/30/17 15:00 12/30/17 15:02 Temperature Pulse Rate 98 H 83 Respiratory Rate 20 20 16 Blood Pressure 103/59 L 127/67 Pulse Oximetry 98 99 100 12/30/17 15:30 12/30/17 16:00 11/07/18 16:30 Temperature 36.7 C Pulse Rate 100 H 107 H 109 H Respiratory Rate 34 H 22 20 Blood Pressure 105/62 104/68 92/58 L Pulse Oximetry 99 99 98 12/30/17 17:00 12/30/17 17:30 12/30/17 18:00 Temperature Pulse Rate 96 H 102 H 91 H Respiratory Rate 15 14 14 Blood Pressure 84/52 L 104/60 92/55 L Pulse Oximetry 100 100 100 12/30/17 18:40 12/30/17 19:00 12/30/17 19:42 Temperature Pulse Rate 111 H 98 H 97 H Respiratory Rate 20 17 14 Blood Pressure 113/65 93/56 L Pulse Oximetry 98 99 12/30/17 19:44 Temperature Pulse Rate Respiratory Rate 21 Blood Pressure Pulse Oximetry 99 Intake & Output 12/30/17 12/30/17 12/31/17 06:59 18:59 06:59 Intake Total 2229 / 2229 2461 / 2461 Output Total 2705 / 2705 2775 / 2775 Balance -476 / -476 -314 / -314 Weight 82.6 kg Intake: IV 1100 / 1100 1700 / 1700 Diprivan 1000 mg/100 ml Inj 1, 400 / 400 400 / 400 000 mg In 100 ml @ 5 MCG/KG/MIN 2.904 mls/hr IV.CONT TITRATE PRN Rx#:[id number] Magnesium Sulfate Inj 2 GM In 100 / 100 NS Inj 96 ML @ 50 mls/hr IV.SIG UNSCH PRN Rx#:[id number] Mycamine Inj 150 MG In NS Inj 100 / 100 100 ML @ 100 mls/hr IV.SIG Q24H BENJAMIN Rx#:[id number] Zosyn 4.5 GM Premix 4.5 gm In 100 / 100 300 / 300 100 ml @ 200 mls/hr IV.SIG Q6H BENJAMIN Rx#:[id number] KCl 20 mEq Premix Inj 20 meq In 100 / 100 100 ml @ 50 mls/hr IV.SIG Q2H PRN Rx#:[id number] KCl 40 mEq Premix Inj 40 meq In 100 / 100 100 / 100 100 ml @ 25 mls/hr IV.SIG Q2H PRN Rx#:[id number] fentaNYL 10 mcg/mL Premix Drip 500 / 500 500 / 500 2,500 mcg In 250 ml @ 50 MCG/HR 5 mls/hr IV.SIG TITRATE PRN Rx #:[id number] Flolan (30,000 ng/mL) Neb 15 ML 100 / 100 In NS Inj 85 ML @ 8 mls/hr NEB ONCE BENJAMIN Rx#:[id number] Oral 0 / 0 0 / 0 Tube Feeding 659 / 659 671 / 671 Tube Irrigant 60 / 60 90 / 90 Water Bolus Amount 0 / 0 0 / 0 Other 0 / 0 Rbc As-3 Leukoreduced Unit [id number] Intake (Blood Product) Amt 400 / 400 Rbc As-3 Leukoreduced Unit 400 / 400 [id number] Output: Urine 0 / 0 2775 / 2775 Urine/Stool Mix 0 / 0 0 / 0 Urine Amount (Catheter) 2475 / 2475 Indwelling Urethral Catheter 2475 / 2475 Gastric Drainage 100 / 100 Oral 100 / 100 Chest Tube Drainage 130 / 130 #2 Right 30 / 30 #3 Right Upper 100 / 100 Other: Other Intake Source Rbc As-3 Leukoreduced Unit Saline Solution [id number] # Voids 0 0 Date of Last Bowel Movement 12/29/17 12/30/17 # Bowel Movements 2 2 # Incontinent Bowel Movements 2 Result Diagrams: 12/30/17 07:17 12/30/17 11:35 Objective Remarks: GENERAL: 62-year-old middle-aged female, lying in bed, intubated, sedated, critically ill. HEENT: Normocephalic. Atraumatic. Pupils equal, round, reactive, conjugate. Positive left scleral edema. decreasing SQ air. Mucous membranes are moist NECK: Trachea is midline. CHEST: Equal chest rise. PRVC. 40% FiO2, PEEP 5. 2 right-sided chest tubes, persistent air leak +1 in chest tube labeled "#3". CARDIOVASCULAR: normal rate, regular rhythm. sinus. ABDOMEN: Soft, nontender, nondistended. No guarding. MUSCULOSKELETAL: Pulses 2+. gross anasarca. 2+ edema grossly. NEUROLOGICAL: RASS -3. Withdraws to pain x4. Does not follow commands. Assessment and Plan - Assessment and Plan Plan: Assessment: 62yF with HCAP pneumonia, bacteremia, and bleb rupture causing significant persistent air leak. remains with hypoxic respiratory failure. aggressive diuresis efforts. at some point will likely require VATS apical blebectomy, but remains likely too ill for this. remains very critically ill and off pathway. Neuro/Psych: Acute metabolic encephalopathy Possible seizure disorder Currently on fentany/ propofol drips for sedation/analgesia while intubated daily sedation vacation. goal RASS -2 She was started on anticonvulsants on her initial admission 11/23. Valproic acid 500 mg 3 times daily. Check level was 40 12/[address] 12/17- for acute disease EEG - Diffuse slowing consistent with a moderate diffuse encephalopathy. No epileptiform activity Acetaminophen 650 by tube every 6 hours as needed fever Continue quetiapine 25 mg daily/home medication Holding tizanidine 4 mg daily Respiratory: Acute hypoxic and hypercarbic respiratory failure- persistent Acute severe bilateral multifocal healthcare associated pneumonia Possible aspiration pneumonia Spontaneous right-sided tension pneumothorax Subcutaneous Emphysema Chest tube #1: 12/17- removed 12/26 Chest tube #2: 12/17 Chest tube #3: 12/19 CT surgery/Dr. Lynn following. air leak in chest tube 3 stopped 12/29 CT thorax overnight 12/12 revealed significant 3.7 cm moderate right pneumothorax without tension. Pneumopericardium and significant subcutaneous emphysema. Vent bundle PRVC mode, peep 5 Epoprostanol added 12/19, removed 12/29. Head of bed elevated Albuterol/ipratropium aerosols every 4 hours with albuterol aerosols every 2 hours as needed dyspnea Wean FiO2 for goal SPO2 greater than 90% AM CXR continue forced diuresis. Cardiovascular: Septic shock- resolved Elevated troponin Type II NSTEMI secondary to demand ischemia Hyperlipidemia Holding lisinopril 30 mg daily/home medication. Resume pravastatin 80 mg daily when clinically indicated continue hydrocortisone wean continue lasix 40mg iv q6h. add concentrated albumin to maintain intravascular volume. Renal: Acute kidney injury (resolved) Secondary to shock, off pressors d/c acevedo Frequent urine output monitoring Daily creatinine KVO IV fluid. Lasix to mobilize fluid, diamox 500 iv q8h x 3 doses on 12/30. -- Strict I/Os FEN/GI: Acute protein calorie malnutritionmoderate Lactic acidosis- resolving. Severe colitis Enterovirus colitis C. difficile colitis Hyperammonemia Acute hypophosphatemia Acute hypernatremia Currently on lactulose 30 cc twice daily Tube feeding with vital 1.5 goal 55 cc now. Metoclopramide 1 mg 3 times daily ICU electrolyte protocol Daily BMP, magnesium, phosphorus Trend lactates Lactulose/polythene glycol twice daily Holding dicyclomine 20 mg 3 times daily sendn pre-albumin. Heme/ID: C. difficile colitis Enterovirus colitis Septic shock Healthcare associated multifocal pneumonia Possible gram-positive cocci bacteremia Early empyema 1 unit PRBCs transfused on 12/28 for hemoglobin 6.9, recheck CBC and transfuse to keep hemoglobin above 8 g% Vancomycin IV/p.o. with pharmacy dosing Cefepime, metronidazole, azithromycin and micafungin Bronchoscopy 12/19 with gram-negative rods Pleural fluid 12/19 with gram-negative rods Pleural fluid 12/17 -g Karla albicans/glabrata Klebsiella, gram-positive rods 12/17 -sputum -Klebsiella 12/17 blood-strep viridians/coag negative staph Infectious disease consulted and following. Endocrine: Acute hypoglycemia- resolving. Sliding scale insulin Accu-Cheks every 6 hours to maintain euglycemia Prophylaxis: GI Prophylaxis Famotidine DVT Prophylaxis -- SCDs Subcu heparin Lines: 12/23: RIJ central line placed 12/23 12/17 femoral triple-lumen catheter discontinued 12/23 12/17 right radial arterial line discontinued 12/21 12/17 right 28 Italian chest tube to -40 cm suction: removed 12/26 12/17 right 32 Italian chest tube to -40 cm suction 12/19 -right #32 Italian chest tube to -40 cm suction 12/17 Acevedo- remove today. Critical care time 31 minutes excluding procedures
[2017-12-30] MEDS: QUEtiapine 25 MG Tablet PO SCH (20:01)
[2017-12-30] MEDS: Albumin Human 25% Inj 100 ML IV.SIG SCH (20:55)
[2017-12-31] MEDS: Oral Hygiene Kit OROPHARYNG SCH ×4 (00:09→16:30)
[2017-12-31] MEDS: Insulin NovoLIN Regular Correctional Sugar Inj SQ SCH ×4 (00:09→18:35)
[2017-12-31] MEDS: Propofol 1000 mg/100 ml Inj 1,000 MG/100 ML BOTTLE IV.CONT PRN ×7 (02:07→22:52)
[2017-12-31] MEDS: Piperacil/Tazo 4.5 GM Premix 4.5 GM/100 ML BAG IV.SIG SCH ×4 (03:19→22:00)
--- NOTE | 2017-12-31 04:17 | XR ---
EXAM DATE: 12/31/2017 4:09 AM EST AGE/SEX: 62 years / Female INDICATIONS: Shortness of breath. CLINICAL DATA: This is the patient's subsequent encounter. Patient reports that signs and symptoms h ave been present for 1 month and indicates a pain score of Nonresponsive. MEDICAL/SURGICAL HISTORY: . Hypertension. . Chest tube, left. Chest tube, right. COMPARISON: [facility] – [place], [place], CHEST 1V SINGLE AP, 12/30/2017. . FINDINGS: Endotracheal tube tip is several centimeters above the neli. Nasogastric tube descends into the sto mach. Right thoracostomy tubes remain in place. Coarse bilateral parenchymal infiltrates may be sligh tly improved. Extensive subcutaneous emphysema is grossly unchanged CONCLUSION: Little change from prior exam Electronically signed by: Pato Cruz MD 12/31/2017 4:15 AM EST
[2017-12-31] MEDS: fentaNYL 10 mcg/mL Premix Drip 2,500 MCG/250 ML BAG IV.SIG PRN ×3 (04:33→22:56)
[2017-12-31] MEDS: Albumin Human 25% Inj 100 ML IV.SIG SCH ×2 (04:34→13:00)
[2017-12-31] MEDS: Heparin - SQ 10,000 UNITS/ML Vial SQ SCH ×3 (05:37→22:08)
[2017-12-31] MEDS ORDERED: Hydrocortisone Sod Succinate 100 MG Vial IV.PUSH SCH (06:00)
[2017-12-31 06:09] LABS: Anion Gap 9 meq/L (5-15); Blood Urea Nitrogen 21 mg/dL (7-18); Calcium 6.6 mg/dL (8.5-10.1); Carbon Dioxide 32.9 meq/L (21.0-32.0); Chloride 101 meq/L (98-107); Glomerular Filtration Rate Greater Than 89 mL/min (>89); Glucose,Random 85 mg/dL (74-106); Magnesium 1.7 mg/dL (1.5-2.5); Phosphorus 3.8 mg/dL (2.5-4.9); Potassium 3.9 meq/L (3.5-5.1); Sodium 143 meq/L (136-145)
[2017-12-31 06:11] LABS: ABG Base Excess 9.4 mmol/L (-2-2); ABG PCO2 60 mmHg (38-42); ABG PO2 65 mmHG (61-120)
[2017-12-31 06:17] LABS: Prealbumin 17 mg/dL (20-40)
[2017-12-31 06:41] LABS: Calcium-Albumin Corrected 7.8 mg/dL (8.5-10.1); Total Protein 4.7 g/dL (6.4-8.2)
[2017-12-31] MEDS: Epoprostenol (30,000/mL) Neb 30 ML in Sodium Chlor 0.9% Inj 70 ML NEB SCH ×3 (07:48→07:50)
[2017-12-31] MEDS: Chlorhexidine 0.12% Oral Kit 15 ML UDC OROPHARYNG SCH ×2 (08:54→20:42)
[2017-12-31] MEDS: Polyethylene Glycol 3350 17 GM Packet PO SCH ×3 (08:54→22:16)
[2017-12-31] MEDS: Sodium Chloride 0.9% 2 ML Flush BID IV.FLUSH SCH ×2 (08:54→20:42)
[2017-12-31] MEDS: Famotidine 20 MG Tablet PO SCH ×2 (08:55→20:45)
[2017-12-31] MEDS: Senna/Docusate Sodium 8.6/50 MG Tablet PO SCH ×2 (08:55→20:45)
[2017-12-31] MEDS: Carboxymethylcellulose 0.5% Opth Drops 15 ML Bottle EACH EYE SCH ×2 (08:56→20:42)
[2017-12-31] MEDS: Collagenase Oint 30 GM Tube TOPICAL SCH (08:56)
[2017-12-31 09:19] LABS: Hematocrit 23.7 % (35.0-46.0); Mean Corpuscular Hemoglobin 33.1 pg (27.0-34.0); Mean Corpuscular Volume 97.5 fL (80.0-100.0); Mean Platelet Volume 8.9 fL (7.0-11.0); Platelet Count 298 th/mm3 (150-450); Red Blood Count 2.43 mil/mm3 (4.00-5.30); Red Cell Distribution Width 15.5 % (11.6-17.2); White Blood Count 14.6 th/mm3 (4.0-11.0)
--- NOTE | 2017-12-31 13:23 | P.PNCC ---
Subjective Subjective Remarks/Hospital Course: This is a 62yF who was originally admitted on 11/23 with a diagnosis of colitis, found to have enterovirus. discharged on 12/11 at that time on PO vancomycin, but came back on 12/13 with altered mental status and hypoglycemia, again discharged on 12/15. She was mildly fatigued on 12/16 according to her and asked to wait another day before traveling back to her home in [place]. This morning, she was unarousable and her called 911. She was intubated upon arrival to the emergency department for agonal respirations. CXR demonstrates bilateral multifocal pneumonia. She is febrile, hypotensive. CVL placed in the ER and vasopressors initiated after 2L bolus crystalloid. CT chest/abd/pelvis demonstrates right pneumothorax, densely consolidated right lower lobe, bilateral pulmonary infiltrates, evidence of ongoing colitis. Patient continue to be unstable. Immediately after identifying ptx on CT scan, I emergently placed right chest tube with some improvements in hemodynamics, but ongoing distributive shock persists. I placed arterial line. No additional information available from the patient, ROS unobtainable. In discussion with the , she has not had any new complaints in the 48h she was home, and other than mild fatigue last night, no new complaints. She was able to walk to the bathroom without assistance yesterday. 12/18: shock remains. now on levophed, vasopressin, phenylephrine. second chest tube placed overnight for worsening SQ air. acidosis remains and is severe. 12/19: Afebrile. Remains on vasopressin drip only. On stress dose hydrocortisone. Evaluated by CT surgery. Not a candidate for intervention at the present time. Chest tube continues to leak. Epoprostenol added today 12/20: Afebrile. FiO2 has decreased and is currently 70%. Currently replacing potassium, phosphorus and magnesium. Recheck later this afternoon. Less chest tube leak today down to 1 chamber. 12/21: Overnight, worsening subcutaneous emphysema. A third chest tube placed by overnight vp security after discussion with cardiothoracic surgery. Currently hemodynamically stable. Replacing phosphorus today. To be evaluated by CT surgery today. 12/22: Remains sedated, orally intubated on mechanical ventilation. Persistent air leak and chest tube noted. 12/23: Remains sedated, orally intubated on mechanical ventilation. Air leak persists though slightly improved. PEEP at +5 FiO2 55%, inhaled Flolan continues. Central line replaced with right IJ triple-lumen catheter. 12/24: Remains sedated, orally intubated on mechanical ventilation. 1+ air leak from chest tube 3 noted. PEEP +5, FiO2 60%, inhaled Flolan continues. Decreasing subcutaneous emphysema noted. 12/25: Remains sedated, orally improved on mechanical ventilation. 1+ for leak from chest tube 2. PEEP +5, FiO2 50%. Starting to titrate inhaled Flolan down today. Initiating Lasix to mobilize fluid. SUBJECTIVE: 12/26: remains intubated. air leak continues from chest tube #3. drainage out of #1 and #2 are very serous. #1 was removed by myself today. all chest tube dressings changed by me today. repeat CXR pending. very volume overloaded. starting to diurese. off vasopressors. off pathway: still high fio2 requirements. 12/27: good diuresis overnight. very hypokalemic today and aggressively replacing. CXR unchanged. air leak unchanged. long discussion over long-term and short-term prognosis and plan of care with entire family today. all questions answered. 12/28: Continues to diurese. Remains on mechanical ventilation. Positive air leak in chest tube 3. 1 unit PRBCs transfused earlier for hemoglobin 6.9. 12/29: Remains on mechanical ventilation. Increasing subcutaneous emphysema noted. Air leak stopped and chest tube #2 and 3 currently. Flolan being titrated down. Chest x-ray shows appropriate positioning of 2 chest tubes with the more medial small right pneumothorax with significant subcutaneous emphysema bilaterally. Patient remains off pressors and is being diuresed to mobilize fluid. 12/30: volume removal continues. Cr still at baseline. fio2 down to 40% and off inhaled Flolan. discussed with Dr. Lynn: will need to wait at least until next week for VATS. Will need trach going forward: discussed with family and they are agreeable. Dr. Lynn asked that both chest tubes remain in place. air leak persists. remains intubated and sedated. 12/31: Sedated, orally intubated on mechanical ventilation. On 40% FiO2 PEEP + 5. Positive air leak in chest tube [address] surgery planning for VATS next week, will need tracheostomy coordinated as well. Objective Vital Signs / I&O: Vital Signs 12/30/17 13:30 12/30/17 14:00 12/30/17 14:30 Temperature Pulse Rate 105 H 97 H 98 H Respiratory Rate 18 14 20 Blood Pressure 104/63 86/51 L 103/59 L Pulse Oximetry 100 98 98 12/30/17 15:00 12/30/17 15:02 12/30/17 15:30 Temperature Pulse Rate 83 100 H Respiratory Rate 20 16 34 H Blood Pressure 127/67 105/62 Pulse Oximetry 99 100 99 12/30/17 16:00 12/30/17 16:30 12/30/17 17:00 Temperature 98.1 F Pulse Rate 107 H 109 H 96 H Respiratory Rate 22 20 15 Blood Pressure 104/68 92/58 L 84/52 L Pulse Oximetry 99 98 100 12/30/17 17:30 12/30/17 18:00 12/30/17 18:40 Temperature Pulse Rate 102 H 91 H 111 H Respiratory Rate 14 14 20 Blood Pressure 104/60 92/55 L 113/65 Pulse Oximetry 100 100 98 12/30/17 19:00 12/30/17 19:42 12/30/17 19:44 Temperature Pulse Rate 98 H 97 H Respiratory Rate 17 14 21 Blood Pressure 93/56 L Pulse Oximetry 99 99 12/30/17 20:00 12/30/17 22:00 12/30/17 23:30 Temperature 99.2 F Pulse Rate 115 H 107 H 113 H Respiratory Rate 22 19 Blood Pressure 115/73 141/79 H Pulse Oximetry 99 99 12/31/17 00:00 12/31/17 00:30 12/31/17 00:42 Temperature 99.4 F Pulse Rate 114 H 114 H 99 H Respiratory Rate 23 20 20 Blood Pressure 131/81 127/76 Pulse Oximetry 99 99 99 12/31/17 01:00 12/31/17 01:01 12/31/17 01:30 Temperature Pulse Rate 118 H 118 H 118 H Respiratory Rate 27 H 24 21 Blood Pressure 119/86 105/67 Pulse Oximetry 99 97 99 12/31/17 02:00 12/31/17 02:30 12/31/17 03:00 Temperature Pulse Rate 118 H 119 H 115 H Respiratory Rate 21 21 18 Blood Pressure 116/75 119/72 98/59 L Pulse Oximetry 100 100 100 12/31/17 03:30 12/31/17 04:00 12/31/17 04:09 Temperature 100.6 F H Pulse Rate 120 H 107 H 88 Respiratory Rate 29 H 17 18 Blood Pressure 107/66 87/50 L Pulse Oximetry 99 100 12/31/17 04:30 12/31/17 05:00 12/31/17 05:30 Temperature Pulse Rate 105 H 110 H 115 H Respiratory Rate 16 18 38 H Blood Pressure 92/54 L 101/59 L 106/61 Pulse Oximetry 100 100 100 12/31/17 06:00 12/31/17 06:30 12/31/17 07:00 Temperature Pulse Rate 108 H 103 H 104 H Respiratory Rate 15 15 13 Blood Pressure 104/56 L 97/54 L 104/57 L Pulse Oximetry 100 99 100 12/31/17 07:30 12/31/17 07:35 12/31/17 08:00 Temperature Pulse Rate 96 H 96 H 107 H Respiratory Rate 12 16 16 Blood Pressure 96/56 L 116/68 Pulse Oximetry 100 100 100 12/31/17 08:30 12/31/17 09:00 12/31/17 09:30 Temperature Pulse Rate 95 H 96 H 92 H Respiratory Rate 14 13 19 Blood Pressure 107/57 L 103/59 L 92/54 L Pulse Oximetry 100 100 100 12/31/17 10:00 12/31/17 10:30 12/31/17 11:00 Temperature Pulse Rate 89 84 105 H Respiratory Rate 18 13 21 Blood Pressure 89/54 L 90/50 L Pulse Oximetry 99 99 97 12/31/17 11:01 12/31/17 11:16 12/31/17 12:00 Temperature Pulse Rate 103 H 88 100 H Respiratory Rate 21 15 Blood Pressure 112/61 Pulse Oximetry 99 99 Intake & Output 12/30/17 12/31/17 12/31/17 18:59 06:59 18:59 Intake Total 2461 / 2461 1686 / 1686 300 / 300 Output Total 2775 / 2775 3050 / 3050 Balance -314 / -314 -1364 / -1364 300 / 300 Weight 77 kg Intake: IV 1700 / 1700 950 / 950 300 / 300 Diprivan 1000 mg/100 ml Inj 1, 400 / 400 300 / 300 200 / 200 000 mg In 100 ml @ 5 MCG/KG/MIN 2.904 mls/hr IV.CONT TITRATE PRN Rx#:[id number] Flexbumin 25% Inj 100 ML @ 12.5 200 / 200 mls/hr IV.SIG Q8H [facility] Rx#: [id number] Magnesium Sulfate Inj 2 GM In 100 / 100 NS Inj 96 ML @ 50 mls/hr IV.SIG UNSCH PRN Rx#:[id number] Mycamine Inj 150 MG In NS Inj 100 / 100 100 ML @ 100 mls/hr IV.SIG Q24H [facility] Rx#:[id number] Zosyn 4.5 GM Premix 4.5 gm In 300 / 300 200 / 200 100 ml @ 200 mls/hr IV.SIG Q6H [facility] Rx#:[id number] KCl 20 mEq Premix Inj 20 meq In 100 / 100 100 ml @ 50 mls/hr IV.SIG Q2H [facility] Rx#:[id number] KCl 40 mEq Premix Inj 40 meq In 100 / 100 100 ml @ 25 mls/hr IV.SIG Q2H [facility] Rx#:[id number] fentaNYL 10 mcg/mL Premix Drip 500 / 500 250 / 250 2,500 mcg In 250 ml @ 50 MCG/HR 5 mls/hr IV.SIG TITRATE PRN Rx #:[id number] Flolan (30,000 ng/mL) Neb 15 ML 100 / 100 In NS Inj 85 ML @ 8 mls/hr NEB ONCE [facility] Rx#:[id number] Oral 0 / 0 Tube Feeding 671 / 671 676 / 676 Tube Irrigant 90 / 90 Water Bolus Amount 0 / 0 60 / 60 Other 0 / 0 Output: Urine 2775 / 2775 1500 / 1500 Urine/Stool Mix 0 / 0 Urine Amount (Catheter) 1500 / 1500 Straight 1500 / 1500 Chest Tube Drainage 50 / 50 #2 Right 0 / 0 #3 Right Upper 50 / 50 Other: # Voids 0 Date of Last Bowel Movement 12/30/17 12/30/17 # Bowel Movements 2 2 Result Diagrams: 12/31/17 09:01 12/31/17 04:52 Objective Remarks: GENERAL: 62-year-old middle-aged female, lying in bed, intubated, sedated, critically ill. HEENT: Normocephalic. Atraumatic. Pupils equal, round, reactive, conjugate. Positive left scleral edema. decreasing SQ air. Mucous membranes are moist NECK: Trachea is midline. CHEST: Equal chest rise. PRVC. 40% FiO2, PEEP 5. 2 right-sided chest tubes, persistent air leak +1 in chest tube labeled "#3". Off Flolan for more than 24 hours CARDIOVASCULAR: normal rate, regular rhythm. sinus. ABDOMEN: Soft, nontender, nondistended. No guarding. MUSCULOSKELETAL: Pulses 2+. gross anasarca. 2+ edema grossly. NEUROLOGICAL: RASS -3. Withdraws to pain x4. Does not follow commands. Assessment and Plan - Assessment and Plan Plan: Assessment: 62yF with HCAP pneumonia, bacteremia, and bleb rupture causing significant persistent air leak. remains with hypoxic respiratory failure. aggressive diuresis efforts. at some point will likely require VATS apical blebectomy, but remains likely too ill for this. remains very critically ill and off pathway. Neuro/Psych: Acute metabolic encephalopathy Possible seizure disorder Currently on fentany/ propofol drips for sedation/analgesia while intubated daily sedation vacation. goal RASS -2 She was started on anticonvulsants on her initial admission 11/23. Valproic acid 500 mg 3 times daily. Check level was 40 12/[address] 12/17- for acute disease EEG - Diffuse slowing consistent with a moderate diffuse encephalopathy. No epileptiform activity Acetaminophen 650 by tube every 6 hours as needed fever Continue quetiapine 25 mg daily/home medication Holding tizanidine 4 mg daily Respiratory: Acute hypoxic and hypercarbic respiratory failure- persistent Acute severe bilateral multifocal healthcare associated pneumonia Possible aspiration pneumonia Spontaneous right-sided tension pneumothorax Subcutaneous Emphysema Chest tube #1: 12/17- removed 12/26 Chest tube #2: 12/17 Chest tube #3: 12/19 CT surgery/Dr. Lynn following. air leak in chest tube 3 stopped 12/29 CT thorax overnight 12/12 revealed significant 3.7 cm moderate right pneumothorax without tension. Pneumopericardium and significant subcutaneous emphysema. Vent bundle PRVC mode, peep 5 Epoprostanol added 12/19, removed 12/29. Head of bed elevated Albuterol/ipratropium aerosols every 4 hours with albuterol aerosols every 2 hours as needed dyspnea Wean FiO2 for goal SPO2 greater than 90% AM CXR continue forced diuresis. Cardiovascular: Septic shock- resolved Elevated troponin Type II NSTEMI secondary to demand ischemia Hyperlipidemia Holding lisinopril 30 mg daily/home medication. Resume pravastatin 80 mg daily when clinically indicated continue hydrocortisone wean continue lasix 40mg iv q6h. add concentrated albumin to maintain intravascular volume. Renal: Acute kidney injury (resolved) Secondary to shock, off pressors d/c acevedo Frequent urine output monitoring Daily creatinine KVO IV fluid. Lasix to mobilize fluid, diamox 500 iv q8h x 3 doses on 12/30. -- Strict I/Os FEN/GI: Acute protein calorie malnutritionmoderate Lactic acidosis- resolving. Severe colitis Enterovirus colitis C. difficile colitis Hyperammonemia Acute hypophosphatemia Acute hypernatremia Currently on lactulose 30 cc twice daily Tube feeding with vital 1.5 goal 55 cc now. Metoclopramide 1 mg 3 times daily ICU electrolyte protocol Daily BMP, magnesium, phosphorus Trend lactates Lactulose/polythene glycol twice daily Holding dicyclomine 20 mg 3 times daily sendn pre-albumin. Heme/ID: C. difficile colitis Enterovirus colitis Septic shock Healthcare associated multifocal pneumonia Possible gram-positive cocci bacteremia Early empyema 1 unit PRBCs transfused on 12/28 for hemoglobin 6.9, recheck CBC and transfuse to keep hemoglobin above 8 g% Vancomycin p.o. with pharmacy dosing Continue Zosyn, micafungin Bronchoscopy 12/19 with gram-negative rods Pleural fluid 12/19 with gram-negative rods Pleural fluid 12/17 -g Karla albicans/glabrata Klebsiella, gram-positive rods 12/17 -sputum -Klebsiella 12/17 blood-strep viridians/coag negative staph Infectious disease consulted and following. Endocrine: Acute hypoglycemia- resolving. Sliding scale insulin Accu-Cheks every 6 hours to maintain euglycemia Prophylaxis: GI Prophylaxis Famotidine DVT Prophylaxis -- SCDs Subcu heparin Lines: 12/23: RIJ central line placed 12/23 12/17 femoral triple-lumen catheter discontinued 12/23 12/17 right radial arterial line discontinued 12/21 12/17 right 28 Haitian chest tube to -40 cm suction: removed 12/26 12/17 right 32 Haitian chest tube to -40 cm suction 12/19 -right #32 Haitian chest tube to -40 cm suction 12/17 Acevedo- remove today. Discussed with patient's at bedside regarding current clinical status and plan of care and he voiced understanding. He wanted to know date for planned VATS by Dr. Leah as patient's daughter would like to be there on day of surgery. Critical care time 35 minutes excluding procedures
--- NOTE | 2017-12-31 15:13 | P.PNPAL ---
Reason for Visit Reason for visit: a. To assist with evaluation and management of symptoms including: pain. b. To assist medical decision maker(s) with: better understanding of current medical conditions; weighing benefits/burdens of medical treatment options; making medical treatment decisions. Subjective Subjective/Interval History: palliative care follow-up for family support, further clarification of goals of care. Patient seen in medical ICU, remains intubated on mechanical ventilation. Sedated on propofol and fentanyl, unresponsive to verbal or tactile stimuli but appears comfortable. Currently on 40% FiO2, ABG today with elevated pCO2 at 60. Hemoglobin stable at 8.0. Off vasopressor support, stable BP. Running low grade fever, max temp 100.6. 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 Luis at bedside. Medical update provided. reports that he is very pleased with the care provided to patient. He feels that patient has made some improvement this week and that family remains hopeful of her recovery. reports that family has agreed to proceed with trach, peg and VATS with cardiothoracic surgery sometime next week. Reviewed long road to recovery ahead with likely rehabilitation given prolonged hospitalization. reports that family is looking forward to patient's eventual recovery. receptive to palliative care follow-up as needed. Goals of therapy are established at this time. Spiritual support following. Advance Directives Living Will: Never completed Health Care Surrogate: Never completed Durable Power of Farm Advisor: Never completed Health Care Surrogate Name and Number: HCP Luis Woodruff Objective Vital Signs: Vital Signs 12/30/17 15:02 12/30/17 15:30 12/30/17 16:00 Temperature 98.1 F Pulse Rate 100 H 107 H Respiratory Rate 16 34 H 22 Blood Pressure 105/62 104/68 Pulse Oximetry 100 99 99 12/30/17 16:30 12/30/17 17:00 12/30/17 17:30 Temperature Pulse Rate 109 H 96 H 102 H Respiratory Rate 20 15 14 Blood Pressure 92/58 L 84/52 L 104/60 Pulse Oximetry 98 100 100 12/30/17 18:00 12/30/17 18:40 12/30/17 19:00 Temperature Pulse Rate 91 H 111 H 98 H Respiratory Rate 14 20 17 Blood Pressure 92/55 L 113/65 93/56 L Pulse Oximetry 100 98 99 12/30/17 19:42 12/30/17 19:44 12/30/17 20:00 Temperature 99.2 F Pulse Rate 97 H 115 H Respiratory Rate 14 21 22 Blood Pressure 115/73 Pulse Oximetry 99 99 12/30/17 22:00 12/30/17 23:30 12/31/17 00:00 Temperature 99.4 F Pulse Rate 107 H 113 H 114 H Respiratory Rate 19 23 Blood Pressure 141/79 H 131/81 Pulse Oximetry 99 99 12/31/17 00:30 12/31/17 00:42 12/31/17 01:00 Temperature Pulse Rate 114 H 99 H 118 H Respiratory Rate 20 20 27 H Blood Pressure 127/76 Pulse Oximetry 99 99 99 12/31/17 01:01 12/31/17 01:30 12/31/17 02:00 Temperature Pulse Rate 118 H 118 H 118 H Respiratory Rate 24 21 21 Blood Pressure 119/86 105/67 116/75 Pulse Oximetry 97 99 100 12/31/17 02:30 12/31/17 03:00 12/31/17 03:30 Temperature Pulse Rate 119 H 115 H 120 H Respiratory Rate 21 18 29 H Blood Pressure 119/72 98/59 L 107/66 Pulse Oximetry 100 100 99 12/31/17 04:00 12/31/17 04:09 12/31/17 04:30 Temperature 100.6 F H Pulse Rate 107 H 88 105 H Respiratory Rate 17 18 16 Blood Pressure 87/50 L 92/54 L Pulse Oximetry 100 100 12/31/17 05:00 12/31/17 05:30 12/31/17 06:00 Temperature Pulse Rate 110 H 115 H 108 H Respiratory Rate 18 38 H 15 Blood Pressure 101/59 L 106/61 104/56 L Pulse Oximetry 100 100 100 12/31/17 06:30 12/31/17 07:00 12/31/17 07:30 Temperature Pulse Rate 103 H 104 H 96 H Respiratory Rate 15 13 12 Blood Pressure 97/54 L 104/57 L 96/56 L Pulse Oximetry 99 100 100 12/31/17 07:35 12/31/17 08:00 12/31/17 08:30 Temperature Pulse Rate 96 H 107 H 95 H Respiratory Rate 16 16 14 Blood Pressure 116/68 107/57 L Pulse Oximetry 100 100 100 12/31/17 09:00 12/31/17 09:30 12/31/17 10:00 Temperature Pulse Rate 96 H 92 H 89 Respiratory Rate 13 19 18 Blood Pressure 103/59 L 92/54 L 89/54 L Pulse Oximetry 100 100 99 12/31/17 10:30 12/31/17 11:00 12/31/17 11:01 Temperature Pulse Rate 84 105 H 103 H Respiratory Rate 13 21 21 Blood Pressure 90/50 L 112/61 Pulse Oximetry 99 97 99 12/31/17 11:16 12/31/17 11:30 12/31/17 12:00 Temperature Pulse Rate 88 92 H 100 H Respiratory Rate 15 24 17 Blood Pressure 97/59 L 111/70 Pulse Oximetry 99 99 98 12/31/17 12:30 12/31/17 13:00 Temperature Pulse Rate 97 H 95 H Respiratory Rate 21 24 Blood Pressure 98/62 L 93/56 L Pulse Oximetry 99 99 Intake & Output 12/30/17 12/31/17 12/31/17 18:59 06:59 18:59 Intake Total 2461 / 2461 1686 / 1686 550 / 550 Output Total 2775 / 2775 3050 / 3050 Balance -314 / -314 -1364 / -1364 550 / 550 Weight 77 kg Intake: IV 1700 / 1700 950 / 950 550 / 550 Diprivan 1000 mg/100 ml Inj 1, 400 / 400 300 / 300 200 / 200 000 mg In 100 ml @ 5 MCG/KG/MIN 2.904 mls/hr IV.CONT TITRATE PRN Rx#:[id number] Flexbumin 25% Inj 100 ML @ 12.5 200 / 200 mls/hr IV.SIG Q8H BENJAMIN Rx#: [id number] Magnesium Sulfate Inj 2 GM In 100 / 100 NS Inj 96 ML @ 50 mls/hr IV.SIG UNSCH PRN Rx#:[id number] Mycamine Inj 150 MG In NS Inj 100 / 100 100 ML @ 100 mls/hr IV.SIG Q24H BENJAMIN Rx#:[id number] Zosyn 4.5 GM Premix 4.5 gm In 300 / 300 200 / 200 100 ml @ 200 mls/hr IV.SIG Q6H BENJAMIN Rx#:[id number] KCl 20 mEq Premix Inj 20 meq In 100 / 100 100 ml @ 50 mls/hr IV.SIG Q2H PRN Rx#:[id number] KCl 40 mEq Premix Inj 40 meq In 100 / 100 100 ml @ 25 mls/hr IV.SIG Q2H PRN Rx#:[id number] fentaNYL 10 mcg/mL Premix Drip 500 / 500 250 / 250 250 / 250 2,500 mcg In 250 ml @ 50 MCG/HR 5 mls/hr IV.SIG TITRATE PRN Rx #:[id number] Flolan (30,000 ng/mL) Neb 15 ML 100 / 100 In NS Inj 85 ML @ 8 mls/hr NEB ONCE BENJAMIN Rx#:[id number] Oral 0 / 0 Tube Feeding 671 / 671 676 / 676 Tube Irrigant 90 / 90 Water Bolus Amount 0 / 0 60 / 60 Other 0 / 0 Output: Urine 2775 / 2775 1500 / 1500 Urine/Stool Mix 0 / 0 Urine Amount (Catheter) 1500 / 1500 Straight 1500 / 1500 Chest Tube Drainage 50 / 50 #2 Right 0 / 0 #3 Right Upper 50 / 50 Other: # Voids 0 Date of Last Bowel Movement 12/30/17 12/30/17 12/30/17 # Bowel Movements 2 2 Physical Exam: CONSTITUTIONAL/GENERAL: Obese female intubated on mechanical ventilation resting in bed in no apparent distress. TUBES/LINES/DRAINS: ETT, OG, PIV's to bilat arms, bilateral soft wrist restraints, SCD's. SKIN: No jaundice, rashes, or lesions. Ecchymoses on upper extremities. Small fluid-filled blister noted to left forearm. Skin temperature appropriate. Not diaphoretic. HEAD: Atraumatic. Normocephalic. EYES: Pupils equal and round and reactive. No scleral icterus. No injection or drainage. Fundi not examined. ENT: Unable to evaluate hearing, sedated. Nose without bleeding or purulent drainage. Moist oral mucosa. ETT, OG in place. NECK: Trachea midline. Supple, nontender. CARDIOVASCULAR: Regular rate without murmurs, gallops, or rubs. Peripheral pulses symmetric. RESPIRATORY/CHEST: Symmetric, unlabored respirations. Coarse bilaterally, right more than left. Chest tube x 2 to right with moderate amount of clear yellow serous fluid. GASTROINTESTINAL: Abdomen soft, obese, nondistended. Bowel sounds present. Tolerating ongoing tube feeds. GENITOURINARY: Without palpable bladder distension. MUSCULOSKELETAL: Extremities without clubbing, cyanosis. Edema to bilateral upper extremities. No mottling or clubbing. NEUROLOGICAL: Sedated. Unresponsive to verbal or tactile stimuli. PSYCHIATRIC: Unable to evaluate, sedated. Diagnostic Tests Laboratory: Laboratory Results - last 72 hr 12/28/17 12/28/17 12/28/17 10:47 11:10 18:35 WBC RBC Hgb Hct MCV MCH MCHC RDW Plt Count MPV Prelim Diff (Auto) Neut % (Auto) Lymph % (Auto) Archer % (Auto) Eos % (Auto) Baso % (Auto) Neut # (Auto) Lymph # (Auto) Archer # (Auto) Eos # (Auto) Baso # (Auto) WBC Differential Diff Scan Differential Comment Platelet Estimate Platelet Morphology Stomatocytes Puncture Site Right radial Patient Temperature 98.6 O2 Saturation 92 ABG pH 7.51 H* ABG pCO2 50 H ABG pO2 68 ABG HCO3 39 H ABG O2 Content 9.3 L ABG Base Excess 15.0 H ABG Methemoglobin 2.2 H Pedro Pablo Test Present Hemoglobin 7.1 L* Carboxyhemoglobin 1.2 O2 Delivery Device Ventilator Vent Setting Inspired O2 55 Critical Value Yes Sodium 145 Potassium 3.3 L D Chloride 98 Carbon Dioxide 40.8 H Anion Gap 6 BUN 23 H Creatinine 0.68 Estimated GFR 87 L POC Glucose Random Glucose 105 Calcium 6.6 L* Prot Corrected Calcium 7.8 L Phosphorus 2.5 Magnesium 1.3 L Total Bilirubin AST ALT Alkaline Phosphatase Total Protein 4.7 L Albumin Prealbumin MTS Gel Crossmatch See Detail 12/28/17 12/28/17 12/29/17 18:47 21:00 00:27 WBC 18.8 H RBC 2.55 L Hgb 7.9 L Hct 23.8 L MCV 93.5 MCH 31.1 MCHC 33.3 RDW 15.0 Plt Count 298 MPV 9.2 Prelim Diff (Auto) Slide review pending Neut % (Auto) 86.6 H Lymph % (Auto) 5.8 L Archer % (Auto) 7.2 Eos % (Auto) 0.3 Baso % (Auto) 0.1 Neut # (Auto) 16.3 H Lymph # (Auto) 1.1 Archer # (Auto) 1.3 H Eos # (Auto) 0.1 Baso # (Auto) 0.0 WBC Differential . Diff Scan Auto diff confirmed Differential Comment . Platelet Estimate Normal Platelet Morphology Normal Stomatocytes 1+ H Puncture Site Patient Temperature O2 Saturation ABG pH ABG pCO2 ABG pO2 ABG HCO3 ABG O2 Content ABG Base Excess ABG Methemoglobin Pedro Pablo Test Hemoglobin Carboxyhemoglobin O2 Delivery Device Vent Setting Inspired O2 Critical Value Sodium Potassium Chloride Carbon Dioxide Anion Gap BUN Creatinine Estimated GFR POC Glucose 115 H 89 Random Glucose Calcium Prot Corrected Calcium Phosphorus Magnesium Total Bilirubin AST ALT Alkaline Phosphatase Total Protein Albumin Prealbumin MTS Gel Crossmatch 12/29/17 12/29/17 12/29/17 05:00 05:00 05:00 WBC 17.9 H RBC 2.68 L Hgb 8.5 L Hct 25.5 L MCV 95.0 MCH 31.8 MCHC 33.5 RDW 15.3 Plt Count 308 MPV 9.3 Prelim Diff (Auto) Neut % (Auto) Lymph % (Auto) Archer % (Auto) Eos % (Auto) Baso % (Auto) Neut # (Auto) Lymph # (Auto) Archer # (Auto) Eos # (Auto) Baso # (Auto) WBC Differential Diff Scan Differential Comment Platelet Estimate Platelet Morphology Stomatocytes Puncture Site Right radial Patient Temperature 98.6 O2 Saturation 94 ABG pH 7.48 H ABG pCO2 50 H ABG pO2 81 ABG HCO3 37 H ABG O2 Content 11.7 L ABG Base Excess 12.5 H ABG Methemoglobin 1.8 Pedro Pablo Test Present Hemoglobin 8.8 L Carboxyhemoglobin 1.1 O2 Delivery Device Ventilator Vent Setting Prvc/ac Inspired O2 55 Critical Value No Sodium Potassium 2.9 L* Chloride Carbon Dioxide Anion Gap BUN Creatinine Estimated GFR POC Glucose Random Glucose Calcium Prot Corrected Calcium Phosphorus Magnesium Total Bilirubin AST ALT Alkaline Phosphatase Total Protein Albumin Prealbumin MTS Gel Crossmatch 12/29/17 12/29/17 12/29/17 06:43 09:10 12:05 WBC RBC Hgb Hct MCV MCH MCHC RDW Plt Count MPV Prelim Diff (Auto) Neut % (Auto) Lymph % (Auto) Archer % (Auto) Eos % (Auto) Baso % (Auto) Neut # (Auto) Lymph # (Auto) Archer # (Auto) Eos # (Auto) Baso # (Auto) WBC Differential Diff Scan Differential Comment Platelet Estimate Platelet Morphology Stomatocytes Puncture Site Patient Temperature O2 Saturation ABG pH ABG pCO2 ABG pO2 ABG HCO3 ABG O2 Content ABG Base Excess ABG Methemoglobin Pedro [place] Test Hemoglobin Carboxyhemoglobin O2 Delivery Device Vent Setting Inspired O2 Critical Value Sodium 145 Potassium 3.0 L Chloride 100 Carbon Dioxide 37.9 H Anion Gap 7 BUN 23 H Creatinine 0.66 Estimated GFR Greater than 89 POC Glucose 116 H 128 H Random Glucose 119 H Calcium 6.9 L* Prot Corrected Calcium 7.9 L Phosphorus Magnesium Total Bilirubin 0.4 AST 39 H ALT 20 Alkaline Phosphatase 66 Total Protein 5.1 L Albumin 1.8 L Prealbumin MTS Gel Crossmatch 12/29/17 12/29/17 12/29/17 17:43 22:31 23:42 WBC RBC Hgb Hct MCV MCH MCHC RDW Plt Count MPV Prelim Diff (Auto) Neut % (Auto) Lymph % (Auto) Archer % (Auto) Eos % (Auto) Baso % (Auto) Neut # (Auto) Lymph # (Auto) Archer # (Auto) Eos # (Auto) Baso # (Auto) WBC Differential Diff Scan Differential Comment Platelet Estimate Platelet Morphology Stomatocytes Puncture Site Patient Temperature O2 Saturation ABG pH ABG pCO2 ABG pO2 ABG HCO3 ABG O2 Content ABG Base Excess ABG Methemoglobin Pedro Pablo Test Hemoglobin Carboxyhemoglobin O2 Delivery Device Vent Setting Inspired O2 Critical Value Sodium Potassium 2.9 L* Chloride Carbon Dioxide Anion Gap BUN Creatinine Estimated GFR POC Glucose 135 H 146 H Random Glucose Calcium Prot Corrected Calcium Phosphorus Magnesium Total Bilirubin AST ALT Alkaline Phosphatase Total Protein Albumin Prealbumin MTS Gel Crossmatch 12/30/17 12/30/17 12/30/17 05:02 05:38 07:17 WBC 16.1 H RBC 2.50 L Hgb 8.4 L Hct 23.8 L MCV 95.3 MCH 33.5 MCHC 35.1 RDW 15.4 Plt Count 314 MPV 9.3 Prelim Diff (Auto) Neut % (Auto) Lymph % (Auto) Archer % (Auto) Eos % (Auto) Baso % (Auto) Neut # (Auto) Lymph # (Auto) Archer # (Auto) Eos # (Auto) Baso # (Auto) WBC Differential Diff Scan Differential Comment Platelet Estimate Platelet Morphology Stomatocytes Puncture Site Right radial Patient Temperature 98.6 O2 Saturation 94 ABG pH 7.40 ABG pCO2 60 H* ABG pO2 88 ABG HCO3 36 H ABG O2 Content 13.5 ABG Base Excess 11.3 H ABG Methemoglobin 1.7 Pedro Pablo Test Present Hemoglobin 10.1 L Carboxyhemoglobin 0.9 O2 Delivery Device Ventilator Vent Setting Prvc/ ac Inspired O2 40 Critical Value Yes Sodium Potassium Chloride Carbon Dioxide Anion Gap BUN Creatinine Estimated GFR POC Glucose 101 Random Glucose Calcium Prot Corrected Calcium Phosphorus Magnesium Total Bilirubin AST ALT Alkaline Phosphatase Total Protein Albumin Prealbumin MTS Gel Crossmatch 12/30/17 12/30/17 12/30/17 07:17 11:35 11:39 WBC RBC Hgb Hct MCV MCH MCHC RDW Plt Count MPV Prelim Diff (Auto) Neut % (Auto) Lymph % (Auto) Archer % (Auto) Eos % (Auto) Baso % (Auto) Neut # (Auto) Lymph # (Auto) Archer # (Auto) Eos # (Auto) Baso # (Auto) WBC Differential Diff Scan Differential Comment Platelet Estimate Platelet Morphology Stomatocytes Puncture Site Patient Temperature O2 Saturation ABG pH ABG pCO2 ABG pO2 ABG HCO3 ABG O2 Content ABG Base Excess ABG Methemoglobin Pedro Pablo Test Hemoglobin Carboxyhemoglobin O2 Delivery Device Vent Setting Inspired O2 Critical Value Sodium 145 Potassium 3.4 L 3.0 L Chloride 99 Carbon Dioxide 40.3 H Anion Gap 6 BUN 23 H Creatinine 0.59 Estimated GFR Greater than 89 POC Glucose 144 H Random Glucose 107 H Calcium 6.8 L* Prot Corrected Calcium 7.9 L Phosphorus 3.6 D Magnesium 1.5 Total Bilirubin AST ALT Alkaline Phosphatase Total Protein 5.0 L Albumin Prealbumin MTS Gel Crossmatch 12/30/17 12/30/17 12/31/17 17:17 23:59 00:07 WBC RBC Hgb Hct MCV MCH MCHC RDW Plt Count MPV Prelim Diff (Auto) Neut % (Auto) Lymph % (Auto) Archer % (Auto) Eos % (Auto) Baso % (Auto) Neut # (Auto) Lymph # (Auto) Archer # (Auto) Eos # (Auto) Baso # (Auto) WBC Differential Diff Scan Differential Comment Platelet Estimate Platelet Morphology Stomatocytes Puncture Site Patient Temperature O2 Saturation ABG pH ABG pCO2 ABG pO2 ABG HCO3 ABG O2 Content ABG Base Excess ABG Methemoglobin Pedro Pablo Test Hemoglobin Carboxyhemoglobin O2 Delivery Device Vent Setting Inspired O2 Critical Value Sodium Potassium 3.6 Chloride Carbon Dioxide Anion Gap BUN Creatinine Estimated GFR POC Glucose 117 H 122 H Random Glucose Calcium Prot Corrected Calcium Phosphorus Magnesium Total Bilirubin AST ALT Alkaline Phosphatase Total Protein Albumin Prealbumin MTS Gel Crossmatch 12/31/17 12/31/17 12/31/17 04:52 06:02 09:01 WBC 14.6 H RBC 2.43 L Hgb 8.0 L Hct 23.7 L MCV 97.5 MCH 33.1 MCHC 34.0 RDW 15.5 Plt Count 298 MPV 8.9 Prelim Diff (Auto) Neut % (Auto) Lymph % (Auto) Archer % (Auto) Eos % (Auto) Baso % (Auto) Neut # (Auto) Lymph # (Auto) Archer # (Auto) Eos # (Auto) Baso # (Auto) WBC Differential Diff Scan Differential Comment Platelet Estimate Platelet Morphology Stomatocytes Puncture Site Right radial Patient Temperature 98.6 O2 Saturation 90 ABG pH 7.38 ABG pCO2 60 H* ABG pO2 65 ABG HCO3 35 H ABG O2 Content 10.4 L ABG Base Excess 9.4 H ABG Methemoglobin 1.8 Pedro Pablo Test Present Hemoglobin 8.2 L Carboxyhemoglobin 1.2 O2 Delivery Device Ventilator Vent Setting Prvc/ ac Inspired O2 40 Critical Value Yes Sodium 143 Potassium 3.9 Chloride 101 Carbon Dioxide 32.9 H Anion Gap 9 BUN 21 H Creatinine 0.54 Estimated GFR Greater than 89 POC Glucose Random Glucose 85 Calcium 6.6 L* Prot Corrected Calcium 7.8 L Phosphorus 3.8 Magnesium 1.7 Total Bilirubin AST ALT Alkaline Phosphatase Total Protein 4.7 L Albumin Prealbumin 17 L MTS Gel Crossmatch 12/31/17 11:45 WBC RBC Hgb Hct MCV MCH MCHC RDW Plt Count MPV Prelim Diff (Auto) Neut % (Auto) Lymph % (Auto) Archer % (Auto) Eos % (Auto) Baso % (Auto) Neut # (Auto) Lymph # (Auto) Archer # (Auto) Eos # (Auto) Baso # (Auto) WBC Differential Diff Scan Differential Comment Platelet Estimate Platelet Morphology Stomatocytes Puncture Site Patient Temperature O2 Saturation ABG pH ABG pCO2 ABG pO2 ABG HCO3 ABG O2 Content ABG Base Excess ABG Methemoglobin Pedro Pablo Test Hemoglobin Carboxyhemoglobin O2 Delivery Device Vent Setting Inspired O2 Critical Value Sodium Potassium Chloride Carbon Dioxide Anion Gap BUN Creatinine Estimated GFR POC Glucose 110 Random Glucose Calcium Prot Corrected Calcium Phosphorus Magnesium Total Bilirubin AST ALT Alkaline Phosphatase Total Protein Albumin Prealbumin MTS Gel Crossmatch Result Diagrams: 12/31/17 09:01 12/31/17 04:52 Microbiology: Microbiology 12/19/17 11:30 Fungal Smear - Final Bronchial Washings - Bronchial Rare budding yeast Fungal Culture - Preliminary Procedures: 12/17/2017: Endotracheal intubation 12/17/2017: OGT placement 12/17/2017: Femoral central line placement 12/17/2017: Right-sided chest tube placement x 2 12/17/2017: Right radial arterial line placement 12/17/2017: Read catheter placement 12/21/2017:Right-sided chest tube placed #3 12/26/2017: CT #1 discontinued Assessment and Plan - Disease Oriented Problem List (1) Respiratory failure (2) Pneumonia (3) Septic shock - Symptom Scale (1) Pain 0-10 Scale: Unable to quantify Comment: History of chronic pain to back. Acute pain secondary to invasive interventions, bedbound due to critical illness. (2) Shortness of breath 0-10 Scale: Unable to quantify Comment: Currently intubated on mechanical ventilation. Pertinent Non-Medical Issues: Psychosocial: Patient was born and raised in [place], [place]. She has been to her , Luis, for approximately 20 years. She has 1 daughter, Margarita. She is a retired teacher. Spiritual: [employer] Legal: No advance directives completed. Ethical issues impacting care: No ethical issues identified. Important Contacts: Luis Woodruff, : [phone] Prognosis: Mrs. Woodruff is a 62-year-old female with multiple comorbidities and recent acute hospitalizations. Patient currently requiring mechanical ventilation, being treated for septic shock and bilateral aspiration pneumonias. Currently status post 3 chest tubes secondary to worsening emphysema. Has been evaluated by cardiothoracic surgery, poor surgical candidate at this time. Overall prognosis is guarded. Patient at a very high risk for further complications, continue decline and . Code Status: Full Code Plan: * CODE STATUS: Full code. * MEDICAL DECISION-MAKER: Patient unable to participate in medical decision making given clinical condition -intubated, sedated. No advance directives completed. As per [place] statute, healthcare proxy decision-maker falls to patient's Luis Woodruff. He has accepted this role and is fully supported by their family. * GOALS OF CARE: Goals of therapy remain aggressive. electing to proceed with VATS/bronchofistula repair and trach placement sometime next week. stating "we are to give her the best chance of surviving", verbalized taking "one day at a time". Overall short-term prognosis and long-term prognosis has been discussed in detail with pt's family. * SYMPTOMS: = Pain: Acute on chronic. Patient with history of chronic back pain status post multiple surgical interventions/appliances in place. Following with pain doctor in [facility]. Currently on fentanyl drip, appears comfortable at the time of my visit. No other recommendations at this time. * Spiritual services following. * Case discussed with bedside RN Chai * Ongoing emotional support and active listening provided. * Palliative care to continue to follow-up for emotional support and goals of care patient's clinical course continues to evolve. receptive to palliative care follow-ups. Time Spent Total Floor Time (mins): 33 (Total time to include review of medical records, physical exam, goals of care conversation with patient, case discussion with bedside RN and spiritual services.) >50% Time in Counseling or Coordination of Care: Yes (Total visit time = 33 minutes; > 50% spent counseling/coordinating care)
[2017-12-31] MEDS: Micafungin Inj 150 MG in Sodium Chlor 0.9% Inj 100 ML IV.SIG SCH (17:00)
[2017-12-31] MEDS: QUEtiapine 25 MG Tablet PO SCH (20:45)
[2018-01-01] MEDS: Insulin NovoLIN Regular Correctional Sugar Inj SQ SCH ×3 (01:33→11:59)
[2018-01-01] MEDS: Oral Hygiene Kit OROPHARYNG SCH ×4 (01:34→18:16)
[2018-01-01] MEDS: Heparin - SQ 10,000 UNITS/ML Vial SQ SCH ×3 (06:08→22:11)
[2018-01-01] MEDS: Piperacil/Tazo 4.5 GM Premix 4.5 GM/100 ML BAG IV.SIG SCH ×4 (06:09→22:14)
[2018-01-01 06:22] LABS: Hematocrit 25.6 % (35.0-46.0); Hemoglobin 8.5 gm/dL (11.6-15.3); Mean Corpuscular HGB Conc 33.3 % (32.0-36.0); Mean Corpuscular Hemoglobin 32.6 pg (27.0-34.0); Mean Corpuscular Volume 97.9 fL (80.0-100.0); Mean Platelet Volume 9.3 fL (7.0-11.0); Platelet Count 348 th/mm3 (150-450); Red Blood Count 2.62 mil/mm3 (4.00-5.30); Red Cell Distribution Width 15.6 % (11.6-17.2); White Blood Count 10.9 th/mm3 (4.0-11.0)
[2018-01-01 06:52] LABS: Anion Gap 9 meq/L (5-15); Blood Urea Nitrogen 22 mg/dL (7-18); Calcium 7.2 mg/dL (8.5-10.1); Carbon Dioxide 39.1 meq/L (21.0-32.0); Chloride 96 meq/L (98-107); Glomerular Filtration Rate Greater Than 89 mL/min (>89); Glucose,Random 83 mg/dL (74-106); Magnesium 1.7 mg/dL (1.5-2.5); Phosphorus 4.2 mg/dL (2.5-4.9); Sodium 144 meq/L (136-145)
[2018-01-01 07:11] LABS: Calcium-Albumin Corrected 7.9 mg/dL (8.5-10.1); Total Protein 5.7 g/dL (6.4-8.2)
[2018-01-01 07:22] LABS: Potassium 2.1 meq/L (3.5-5.1)
[2018-01-01] MEDS: Chlorhexidine 0.12% Oral Kit 15 ML UDC OROPHARYNG SCH ×2 (09:06→21:55)
[2018-01-01] MEDS: fentaNYL 10 mcg/mL Premix Drip 2,500 MCG/250 ML BAG IV.SIG PRN ×2 (09:07→18:32)
[2018-01-01] MEDS: Propofol 1000 mg/100 ml Inj 1,000 MG/100 ML BOTTLE IV.CONT PRN ×4 (09:08→20:48)
[2018-01-01] MEDS: Potassium Chlor 20 mEq Premix 20 MEQ/100 ML PIGGYBACK IV.SIG PRN (09:44)
[2018-01-01] MEDS: Famotidine 20 MG Tablet PO SCH ×2 (11:55→20:49)
[2018-01-01] MEDS: Sodium Chloride 0.9% 2 ML Flush BID IV.FLUSH SCH ×2 (11:55→21:55)
[2018-01-01] MEDS: Polyethylene Glycol 3350 17 GM Packet PO SCH ×2 (11:55→22:11)
[2018-01-01] MEDS: Carboxymethylcellulose 0.5% Opth Drops 15 ML Bottle EACH EYE SCH ×2 (11:56→21:55)
[2018-01-01] MEDS: Senna/Docusate Sodium 8.6/50 MG Tablet PO SCH ×2 (11:56→21:55)
[2018-01-01] MEDS: Collagenase Oint 30 GM Tube TOPICAL SCH (13:26)
[2018-01-01] MEDS: Potassium Chloride 25 MEQ Effervescent Tablet PO PRN (13:29)
--- NOTE | 2018-01-01 13:45 | P.PNCC ---
Subjective Subjective Remarks/Hospital Course: This is a 62yF who was originally admitted on 11/23 with a diagnosis of colitis, found to have enterovirus. discharged on 12/11 at that time on PO vancomycin, but came back on 12/13 with altered mental status and hypoglycemia, again discharged on 12/15. She was mildly fatigued on 12/16 according to her and asked to wait another day before traveling back to her home in [place]. This morning, she was unarousable and her called 911. She was intubated upon arrival to the emergency department for agonal respirations. CXR demonstrates bilateral multifocal pneumonia. She is febrile, hypotensive. CVL placed in the ER and vasopressors initiated after 2L bolus crystalloid. CT chest/abd/pelvis demonstrates right pneumothorax, densely consolidated right lower lobe, bilateral pulmonary infiltrates, evidence of ongoing colitis. Patient continue to be unstable. Immediately after identifying ptx on CT scan, I emergently placed right chest tube with some improvements in hemodynamics, but ongoing distributive shock persists. I placed arterial line. No additional information available from the patient, ROS unobtainable. In discussion with the , she has not had any new complaints in the 48h she was home, and other than mild fatigue last night, no new complaints. She was able to walk to the bathroom without assistance yesterday. 12/18: shock remains. now on levophed, vasopressin, phenylephrine. second chest tube placed overnight for worsening SQ air. acidosis remains and is severe. 12/19: Afebrile. Remains on vasopressin drip only. On stress dose hydrocortisone. Evaluated by CT surgery. Not a candidate for intervention at the present time. Chest tube continues to leak. Epoprostenol added today 12/20: Afebrile. FiO2 has decreased and is currently 70%. Currently replacing potassium, phosphorus and magnesium. Recheck later this afternoon. Less chest tube leak today down to 1 chamber. 12/21: Overnight, worsening subcutaneous emphysema. A third chest tube placed by overnight used car renovator after discussion with cardiothoracic surgery. Currently hemodynamically stable. Replacing phosphorus today. To be evaluated by CT surgery today. 12/22: Remains sedated, orally intubated on mechanical ventilation. Persistent air leak and chest tube noted. 12/23: Remains sedated, orally intubated on mechanical ventilation. Air leak persists though slightly improved. PEEP at +5 FiO2 55%, inhaled Flolan continues. Central line replaced with right IJ triple-lumen catheter. 12/24: Remains sedated, orally intubated on mechanical ventilation. 1+ air leak from chest tube 3 noted. PEEP +5, FiO2 60%, inhaled Flolan continues. Decreasing subcutaneous emphysema noted. 12/25: Remains sedated, orally improved on mechanical ventilation. 1+ for leak from chest tube 2. PEEP +5, FiO2 50%. Starting to titrate inhaled Flolan down today. Initiating Lasix to mobilize fluid. SUBJECTIVE: 12/26: remains intubated. air leak continues from chest tube #3. drainage out of #1 and #2 are very serous. #1 was removed by myself today. all chest tube dressings changed by me today. repeat CXR pending. very volume overloaded. starting to diurese. off vasopressors. off pathway: still high fio2 requirements. 12/27: good diuresis overnight. very hypokalemic today and aggressively replacing. CXR unchanged. air leak unchanged. long discussion over long-term and short-term prognosis and plan of care with entire family today. all questions answered. 12/28: Continues to diurese. Remains on mechanical ventilation. Positive air leak in chest tube 3. 1 unit PRBCs transfused earlier for hemoglobin 6.9. 12/29: Remains on mechanical ventilation. Increasing subcutaneous emphysema noted. Air leak stopped and chest tube #2 and 3 currently. Flolan being titrated down. Chest x-ray shows appropriate positioning of 2 chest tubes with the more medial small right pneumothorax with significant subcutaneous emphysema bilaterally. Patient remains off pressors and is being diuresed to mobilize fluid. 12/30: volume removal continues. Cr still at baseline. fio2 down to 40% and off inhaled Flolan. discussed with Dr. Lynn: will need to wait at least until next week for VATS. Will need trach going forward: discussed with family and they are agreeable. Dr. Lynn asked that both chest tubes remain in place. air leak persists. remains intubated and sedated. 12/31: Sedated, orally intubated on mechanical ventilation. On 40% FiO2 PEEP + 5. Positive air leak in chest tube [address] surgery planning for VATS next week, will need tracheostomy coordinated as well. 01/01: Remains sedated, orally intubated on mechanical ventilation. PEEP +5, FiO2 35%. Being diuresed. Objective Vital Signs / I&O: Vital Signs 12/31/17 14:00 12/31/17 14:30 12/31/17 15:00 Temperature Pulse Rate 85 82 85 Respiratory Rate 21 24 22 Blood Pressure 89/52 L 92/55 L 86/53 L Pulse Oximetry 98 99 99 12/31/17 15:30 12/31/17 15:48 12/31/17 16:00 Temperature Pulse Rate 106 H 115 H 111 H Respiratory Rate 19 20 42 H Blood Pressure 118/63 108/55 L Pulse Oximetry 100 100 100 12/31/17 16:30 12/31/17 17:00 12/31/17 17:30 Temperature Pulse Rate 104 H 95 H 88 Respiratory Rate 18 9 L 12 Blood Pressure 104/64 99/56 L 96/54 L Pulse Oximetry 100 100 100 12/31/17 18:00 12/31/17 18:06 12/31/17 19:00 Temperature Pulse Rate 83 97 H 101 H Respiratory Rate 9 L 23 14 Blood Pressure 88/50 L 109/63 102/59 L Pulse Oximetry 100 100 100 12/31/17 19:30 12/31/17 20:00 12/31/17 20:03 Temperature 98.9 F Pulse Rate 95 H 92 H Respiratory Rate 19 20 16 Blood Pressure 92/55 L 93/53 L Pulse Oximetry 100 100 100 12/31/17 20:07 12/31/17 20:30 12/31/17 21:00 Temperature Pulse Rate 92 H 96 H 93 H Respiratory Rate 15 34 H 13 Blood Pressure 98/58 L 95/52 L Pulse Oximetry 100 100 12/31/17 21:30 12/31/17 22:00 12/31/17 22:30 Temperature Pulse Rate 88 101 H 104 H Respiratory Rate 10 L 34 H 32 H Blood Pressure 86/51 L 111/60 107/64 Pulse Oximetry 100 99 100 12/31/17 23:00 12/31/17 23:30 12/31/17 23:59 Temperature Pulse Rate 102 H 103 H Respiratory Rate 14 14 15 Blood Pressure 91/52 L 89/60 L Pulse Oximetry 100 100 100 01/01/18 00:00 01/01/18 00:30 01/01/18 01:00 Temperature 99.0 F Pulse Rate 101 H 105 H 106 H Respiratory Rate 16 14 19 Blood Pressure 99/61 L 103/57 L 108/64 Pulse Oximetry 100 100 100 01/01/18 01:30 01/01/18 01:32 01/01/18 02:00 Temperature 99.4 F Pulse Rate 109 H 106 H Respiratory Rate 16 15 Blood Pressure 98/58 L 101/64 Pulse Oximetry 98 100 01/01/18 02:30 01/01/18 03:00 01/01/18 03:30 Temperature Pulse Rate 105 H 100 H 108 H Respiratory Rate 15 15 15 Blood Pressure 103/62 91/50 L 101/62 Pulse Oximetry 100 100 100 01/01/18 03:36 01/01/18 04:00 01/01/18 04:30 Temperature 99.4 F Pulse Rate 104 H 101 H 104 H Respiratory Rate 17 16 12 Blood Pressure 94/52 L 91/56 L Pulse Oximetry 100 100 100 01/01/18 05:00 01/01/18 05:30 01/01/18 06:00 Temperature Pulse Rate 100 H 106 H 104 H Respiratory Rate 14 18 18 Blood Pressure 91/56 L 98/60 L Pulse Oximetry 100 100 100 01/01/18 06:01 01/01/18 06:30 01/01/18 07:00 Temperature Pulse Rate 104 H 109 H 111 H Respiratory Rate 19 27 H 19 Blood Pressure 110/57 L 114/77 114/70 Pulse Oximetry 99 01/01/18 07:30 01/01/18 08:06 01/01/18 08:07 Temperature Pulse Rate 109 H 105 H Respiratory Rate 17 15 15 Blood Pressure 113/66 Pulse Oximetry 100 99 01/01/18 12:09 01/01/18 12:10 Temperature Pulse Rate 105 H Respiratory Rate 15 15 Blood Pressure Pulse Oximetry 99 Intake & Output 12/31/17 01/01/18 01/01/18 18:59 06:59 18:59 Intake Total 1050 / 1050 1572 / 1572 450 / 450 Output Total 2240 / 2240 1130 / 1130 Balance -1190 / -1190 442 / 442 450 / 450 Weight 75.6 kg Intake: IV 1050 / 1050 750 / 750 450 / 450 Diprivan 1000 mg/100 ml Inj 1, 300 / 300 300 / 300 100 / 100 000 mg In 100 ml @ 5 MCG/KG/MIN 2.904 mls/hr IV.CONT TITRATE PRN Rx#:[id number] Flexbumin 25% Inj 100 ML @ 12.5 100 / 100 mls/hr IV.SIG Q8H B[facility]IN Rx#: [id number] Mycamine Inj 150 MG In NS Inj 100 / 100 100 ML @ 100 mls/hr IV.SIG Q24H [facility]IN Rx#:[id number] Zosyn 4.5 GM Premix 4.5 gm In 200 / 200 200 / 200 100 / 100 100 ml @ 200 mls/hr IV.SIG Q6H [facility] Rx#:[id number] fentaNYL 10 mcg/mL Premix Drip 250 / 250 250 / 250 250 / 250 2,500 mcg In 250 ml @ 50 MCG/HR 5 mls/hr IV.SIG TITRATE PRN Rx #:[id number] Tube Feeding 582 / 582 Water Bolus Amount 240 / 240 Output: Urine 1600 / 1600 1100 / 1100 Urine Amount (Catheter) 600 / 600 Straight 600 / 600 Chest Tube Drainage 40 / 40 30 / 30 #2 Right 0 / 0 #3 Right Upper 40 / 40 30 / 30 Other: Date of Last Bowel Movement 12/30/17 01/01/18 # Bowel Movements 1 # Incontinent Bowel Movements 4 Result Diagrams: 01/01/18 05:25 01/01/18 05:25 Objective Remarks: GENERAL: 62-year-old middle-aged female, lying in bed, intubated, sedated, critically ill. HEENT: Normocephalic. Atraumatic. Pupils equal, round, reactive, conjugate. Positive left scleral edema. decreasing SQ air. Mucous membranes are moist NECK: Trachea is midline. CHEST: Equal chest rise. PRVC. 40% FiO2, PEEP 5. 2 right-sided chest tubes, persistent air leak +1 in chest tube labeled "#3". Off Flolan for more than 24 hours CARDIOVASCULAR: normal rate, regular rhythm. sinus. ABDOMEN: Soft, nontender, nondistended. No guarding. MUSCULOSKELETAL: Pulses 2+. gross anasarca. 2+ edema grossly. NEUROLOGICAL: RASS -3. Withdraws to pain x4. Does not follow commands. Assessment and Plan - Assessment and Plan Plan: Assessment: 62yF with HCAP pneumonia, bacteremia, and bleb rupture causing significant persistent air leak. remains with hypoxic respiratory failure. aggressive diuresis efforts. at some point will likely require VATS apical blebectomy, but remains likely too ill for this. remains very critically ill and off pathway. Neuro/Psych: Acute metabolic encephalopathy Possible seizure disorder Currently on fentany/ propofol drips for sedation/analgesia while intubated daily sedation vacation. goal RASS -2 She was started on anticonvulsants on her initial admission 11/23. Valproic acid 500 mg 3 times daily. Check level was 40 12/[address] 12/17- for acute disease EEG - Diffuse slowing consistent with a moderate diffuse encephalopathy. No epileptiform activity Acetaminophen 650 by tube every 6 hours as needed fever Continue quetiapine 25 mg daily/home medication Holding tizanidine 4 mg daily Respiratory: Acute hypoxic and hypercarbic respiratory failure- persistent Acute severe bilateral multifocal healthcare associated pneumonia Possible aspiration pneumonia Spontaneous right-sided tension pneumothorax Subcutaneous Emphysema Chest tube #1: 12/17- removed 12/26 Chest tube #2: 12/17 Chest tube #3: 12/19 CT surgery/Dr. Lynn following. air leak in chest tube 3 stopped 12/29 CT thorax overnight 12/12 revealed significant 3.7 cm moderate right pneumothorax without tension. Pneumopericardium and significant subcutaneous emphysema. Vent bundle PRVC mode, peep 5 Epoprostanol added 12/19, removed 12/29. Head of bed elevated Albuterol/ipratropium aerosols every 4 hours with albuterol aerosols every 2 hours as needed dyspnea Wean FiO2 for goal SPO2 greater than 90% AM CXR continue forced diuresis. Cardiovascular: Septic shock- resolved Elevated troponin Type II NSTEMI secondary to demand ischemia Hyperlipidemia Holding lisinopril 30 mg daily/home medication. Resume pravastatin 80 mg daily when clinically indicated continue hydrocortisone wean continue lasix 40mg iv q6h. add concentrated albumin to maintain intravascular volume. Renal: Acute kidney injury (resolved) Secondary to shock, off pressors d/c curtis Frequent urine output monitoring Daily creatinine KVO IV fluid. Lasix to mobilize fluid, diamox 500 iv q8h x 3 doses on 12/30. -- Strict I/Os FEN/GI: Acute protein calorie malnutritionmoderate Lactic acidosis- resolving. Severe colitis Enterovirus colitis C. difficile colitis Hyperammonemia Acute hypophosphatemia Acute hypernatremia Currently on lactulose 30 cc twice daily Tube feeding with vital 1.5 goal 55 cc now. Metoclopramide 1 mg 3 times daily ICU electrolyte protocol Daily BMP, magnesium, phosphorus Trend lactates Lactulose/polythene glycol twice daily Holding dicyclomine 20 mg 3 times daily sendn pre-albumin. Heme/ID: C. difficile colitis Enterovirus colitis Septic shock Healthcare associated multifocal pneumonia Possible gram-positive cocci bacteremia Early empyema 1 unit PRBCs transfused on 12/28 for hemoglobin 6.9, recheck CBC and transfuse to keep hemoglobin above 8 g% Vancomycin p.o. with pharmacy dosing Continue Zosyn, micafungin Bronchoscopy 12/19 with gram-negative rods Pleural fluid 12/19 with gram-negative rods Pleural fluid 12/17 -g Karla albicans/glabrata Klebsiella, gram-positive rods 12/17 -sputum -Klebsiella 12/17 blood-strep viridians/coag negative staph Infectious disease consulted and following. Endocrine: Acute hypoglycemia- resolving. Sliding scale insulin Accu-Cheks every 6 hours to maintain euglycemia Prophylaxis: GI Prophylaxis Famotidine DVT Prophylaxis -- SCDs Subcu heparin Lines: 12/23: RIJ central line placed 12/23 12/17 femoral triple-lumen catheter discontinued 12/23 12/17 right radial arterial line discontinued 12/21 12/17 right 28 Swedish chest tube to -40 cm suction: removed 12/26 12/17 right 32 Swedish chest tube to -40 cm suction 12/19 -right #32 Swedish chest tube to -40 cm suction 12/17 Read- remove today. Discussed with patient's at bedside regarding current clinical status and plan of care and he voiced understanding. He wanted to know date for planned VATS by Dr. Lynn as patient's daughter would like to be there on day of surgery. Critical care time 35 minutes excluding procedures
--- NOTE | 2018-01-01 18:16 | P.PNID ---
Subjective Remarks: low grade fever today up to 100.6 no leukocytosis cont to have air leak in 1/2 CT tolerating further FiO2 weaning down to 35% Antibiotics: zosyn vanco PO micafungin Allergies/Adverse Reactions: Allergies No Known Allergies Allergy (Verified 12/13/17 08:04) Objective Vital Signs 12/31/17 19:00 12/31/17 19:30 12/31/17 20:00 Temperature 98.9 F Pulse Rate 101 H 95 H 92 H Respiratory Rate 14 19 20 Blood Pressure 102/59 L 92/55 L 93/53 L Pulse Oximetry 100 100 100 12/31/17 20:03 12/31/17 20:07 12/31/17 20:30 Temperature Pulse Rate 92 H 96 H Respiratory Rate 16 15 34 H Blood Pressure 98/58 L Pulse Oximetry 100 100 12/31/17 21:00 12/31/17 21:30 12/31/17 22:00 Temperature Pulse Rate 93 H 88 101 H Respiratory Rate 13 10 L 34 H Blood Pressure 95/52 L 86/51 L 111/60 Pulse Oximetry 100 100 99 12/31/17 22:30 12/31/17 23:00 12/31/17 23:30 Temperature Pulse Rate 104 H 102 H 103 H Respiratory Rate 32 H 14 14 Blood Pressure 107/64 91/52 L 89/60 L Pulse Oximetry 100 100 100 12/31/17 23:59 01/01/18 00:00 01/01/18 00:30 Temperature 99.0 F Pulse Rate 101 H 105 H Respiratory Rate 15 16 14 Blood Pressure 99/61 L 103/57 L Pulse Oximetry 100 100 100 01/01/18 01:00 01/01/18 01:30 01/01/18 01:32 Temperature 99.4 F Pulse Rate 106 H 109 H Respiratory Rate 19 16 Blood Pressure 108/64 98/58 L Pulse Oximetry 100 98 01/01/18 02:00 01/01/18 02:30 01/01/18 03:00 Temperature Pulse Rate 106 H 105 H 100 H Respiratory Rate 15 15 15 Blood Pressure 101/64 103/62 91/50 L Pulse Oximetry 100 100 100 01/01/18 03:30 01/01/18 03:36 01/01/18 04:00 Temperature 99.4 F Pulse Rate 108 H 104 H 101 H Respiratory Rate 15 17 16 Blood Pressure 101/62 94/52 L Pulse Oximetry 100 100 100 01/01/18 04:30 01/01/18 05:00 01/01/18 05:30 Temperature Pulse Rate 104 H 100 H 106 H Respiratory Rate 12 14 18 Blood Pressure 91/56 L 91/56 L 98/60 L Pulse Oximetry 100 100 100 01/01/18 06:00 01/01/18 06:01 01/01/18 06:30 Temperature Pulse Rate 104 H 104 H 109 H Respiratory Rate 18 19 27 H Blood Pressure 110/57 L 114/77 Pulse Oximetry 100 01/01/18 07:00 01/01/18 07:30 01/01/18 08:00 Temperature Pulse Rate 111 H 109 H 105 H Respiratory Rate 19 17 Blood Pressure 114/70 113/66 Pulse Oximetry 99 100 01/01/18 08:06 01/01/18 08:07 01/01/18 10:00 Temperature Pulse Rate 105 H 102 H Respiratory Rate 15 15 Blood Pressure Pulse Oximetry 99 01/01/18 12:09 01/01/18 12:10 01/01/18 15:58 Temperature Pulse Rate 105 H 114 H Respiratory Rate 15 15 19 Blood Pressure Pulse Oximetry 99 01/01/18 15:59 Temperature Pulse Rate Respiratory Rate 18 Blood Pressure Pulse Oximetry 100 Intake & Output 12/31/17 01/01/18 01/01/18 18:59 06:59 18:59 Intake Total 1050 / 1050 1572 / 1572 450 / 450 Output Total 2240 / 2240 1130 / 1130 Balance -1190 / -1190 442 / 442 450 / 450 Weight 75.6 kg Intake: IV 1050 / 1050 750 / 750 450 / 450 Diprivan 1000 mg/100 ml Inj 1, 300 / 300 300 / 300 100 / 100 000 mg In 100 ml @ 5 MCG/KG/MIN 2.904 mls/hr IV.CONT TITRATE PRN Rx#:[id number] Flexbumin 25% Inj 100 ML @ 12.5 100 / 100 mls/hr IV.SIG Q8H [facility] Rx#: [id number] Mycamine Inj 150 MG In NS Inj 100 / 100 100 ML @ 100 mls/hr IV.SIG Q24H [facility] Rx#:[id number] Zosyn 4.5 GM Premix 4.5 gm In 200 / 200 200 / 200 100 / 100 100 ml @ 200 mls/hr IV.SIG Q6H [facility] Rx#:[id number] fentaNYL 10 mcg/mL Premix Drip 250 / 250 250 / 250 250 / 250 2,500 mcg In 250 ml @ 50 MCG/HR 5 mls/hr IV.SIG TITRATE PRN Rx #:[id number] Tube Feeding 582 / 582 Water Bolus Amount 240 / 240 Output: Urine 1600 / 1600 1100 / 1100 Urine Amount (Catheter) 600 / 600 Straight 600 / 600 Chest Tube Drainage 40 / 40 30 / 30 #2 Right 0 / 0 #3 Right Upper 40 / 40 30 / 30 Other: Date of Last Bowel Movement 12/30/17 01/01/18 01/01/18 # Bowel Movements 1 # Incontinent Bowel Movements 4 12/19/17 11:30 Bronchial Washings - Bronchial Fungal Smear - Final Rare budding yeast 12/19/17 11:30 Bronchial Washings - Bronchial Fungal Culture - Preliminary Lab - Hematology Results 12/31/17 01/01/18 09:01 05:25 WBC 14.6 H 10.9 RBC 2.43 L 2.62 L Hgb 8.0 L 8.5 L Hct 23.7 L 25.6 L MCV 97.5 97.9 MCH 33.1 32.6 MCHC 34.0 33.3 RDW 15.5 15.6 Plt Count 298 348 MPV 8.9 9.3 Lab - Chemistry Results 12/30/17 12/31/17 12/31/17 23:59 00:07 04:52 Sodium 143 Potassium 3.6 3.9 Chloride 101 Carbon Dioxide 32.9 H Anion Gap 9 BUN 21 H Creatinine 0.54 Estimated GFR Greater than 89 POC Glucose 122 H Random Glucose 85 Calcium 6.6 L* Prot Corrected Calcium 7.8 L Phosphorus 3.8 Magnesium 1.7 Total Protein 4.7 L Prealbumin 17 L 12/31/17 01/01/18 01/01/18 11:45 01:33 05:25 Sodium 144 Potassium 2.1 L* D Chloride 96 L Carbon Dioxide 39.1 H Anion Gap 9 BUN 22 H Creatinine 0.58 Estimated GFR Greater than 89 POC Glucose 110 105 Random Glucose 83 Calcium 7.2 L* Prot Corrected Calcium 7.9 L Phosphorus 4.2 Magnesium 1.7 Total Protein 5.7 L D Prealbumin 01/01/18 01/01/18 06:05 11:53 Sodium Potassium Chloride Carbon Dioxide Anion Gap BUN Creatinine Estimated GFR POC Glucose 86 100 Random Glucose Calcium Prot Corrected Calcium Phosphorus Magnesium Total Protein Prealbumin Imaging: ITS Impressions Head CT 12/17/17 08:02 CONCLUSION: 1. 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 2. Otherwise negative. . Abdomen/Pelvis CT 12/17/17 10:45 CONCLUSION: 1. Moderate diffuse colonic wall thickening exaggerated by lack of colonic distention. This may be due to low-protein state/edema. However, differential considerations include infectious and inflammatory colitis. 2. Moderate-sized right hydropneumothorax with airspace disease in the lung bases as described on chest CT. 3. Additional ancillary findings, as above. Chest CT 12/21/17 04:03 CONCLUSION: 1. Moderate size right pneumothorax without tension. Also pneumopericardium and pneumomediastinum. Massive chest wall emphysema. 2. Bilateral airspace disease. 3.7 cm bilobed cavitary lesion of the right lower lobe. 3. Small left pleural effusion. No left pneumothorax. Chest X-Ray 12/31/17 05:00 CONCLUSION: Little change from prior exam Physical Exam: GENERAL: sedated int'd on mech vent'n SKIN: Warm and dry. NO rash decreasing SQ emphymea, much less crepitus to palpation over anterior chest EYES: No scleral icterus. No injection or drainage. ENT: No nasal bleeding or discharge. Mucous membranes pink and moist. NECK: Trachea midline. No JVD. CARDIOVASCULAR: Regular rate and rhythm Very distant HS, nearly inaudible RESPIRATORY: No accessory muscle use. +extensive rhocnhi to auscultation. + Amphoric BS on R very disteant saounds Breath sounds decreased bilaterally. CT x 2 R side: superior witn serous dc, no leak noted inferior with air leak and less purulent appearing drainage GASTROINTESTINAL: Abdomen soft, non-tender, distended. Hepatic and splenic margins not palpable. MUSCULOSKELETAL: Extremities without clubbing, cyanosis, 2+ edema. No obvious deformities. NEUROLOGICAL: sedated, unresponsive PSYCHIATRIC: unable to assess Assessment and Plan - Plan GPC bacteremia, 1/ with coag neg staph and vir strep: cw pseudobacteremia BP fistula pleural fluid with C glabrata, Kleb, Lactobac - S PCN. R Meropenem - unsuitable for fistula repair PNA, GNB R complicated fluid collection pneumohydrothorax 2/2 BP fistula sp CTx 3 placements Acute VDRF recent pseudomembranous colitis - stool now formed, bowell thickening on CT + DNA sepsis hemodynamically stable, off pressors persistent leukocytosis: resolved New fever, low grade cont zosyn : that will cover both lactobac and Kleb cont micafungin for grace cont oral vanco for c.diff x 14 days rechk sputum clx chk UA, C+S chk bl clx dw RN dw @ b/s
[2018-01-01] MEDS: Micafungin Inj 150 MG in Sodium Chlor 0.9% Inj 100 ML IV.SIG SCH (18:18)
[2018-01-01] MEDS: QUEtiapine 25 MG Tablet PO SCH (20:49)
[2018-01-02] MEDS: Propofol 1000 mg/100 ml Inj 1,000 MG/100 ML BOTTLE IV.CONT PRN ×5 (01:30→21:39)
[2018-01-02] MEDS: Insulin NovoLIN Regular Correctional Sugar Inj SQ SCH ×4 (01:59→17:24)
[2018-01-02] MEDS: Oral Hygiene Kit OROPHARYNG SCH ×4 (01:59→15:37)
[2018-01-02] MEDS: Potassium Chlor 20 mEq Premix 20 MEQ/100 ML PIGGYBACK IV.SIG PRN ×5 (02:00→14:12)
[2018-01-02] MEDS: fentaNYL 10 mcg/mL Premix Drip 2,500 MCG/250 ML BAG IV.SIG PRN ×2 (05:25→15:58)
[2018-01-02 05:57] LABS: Hematocrit 24.5 % (35.0-46.0); Hemoglobin 8.3 gm/dL (11.6-15.3); Mean Corpuscular HGB Conc 33.7 % (32.0-36.0); Mean Corpuscular Hemoglobin 32.4 pg (27.0-34.0); Mean Corpuscular Volume 96.1 fL (80.0-100.0); Mean Platelet Volume 8.6 fL (7.0-11.0); Platelet Count 361 th/mm3 (150-450); Red Blood Count 2.55 mil/mm3 (4.00-5.30); Red Cell Distribution Width 14.9 % (11.6-17.2); White Blood Count 11.5 th/mm3 (4.0-11.0)
[2018-01-02] MEDS: Piperacil/Tazo 4.5 GM Premix 4.5 GM/100 ML BAG IV.SIG SCH ×4 (06:05→21:43)
[2018-01-02] MEDS: Heparin - SQ 10,000 UNITS/ML Vial SQ SCH ×3 (06:05→21:41)
[2018-01-02 06:19] LABS: Anion Gap 10 meq/L (5-15); Blood Urea Nitrogen 21 mg/dL (7-18); Calcium 7.7 mg/dL (8.5-10.1); Carbon Dioxide 34.4 meq/L (21.0-32.0); Chloride 96 meq/L (98-107); Glomerular Filtration Rate Greater Than 89 mL/min (>89); Glucose,Random 113 mg/dL (74-106); Magnesium 1.5 mg/dL (1.5-2.5); Phosphorus 4.2 mg/dL (2.5-4.9); Sodium 140 meq/L (136-145)
[2018-01-02 06:23] LABS: Potassium 2.9 meq/L (3.5-5.1)
[2018-01-02] MEDS: Chlorhexidine 0.12% Oral Kit 15 ML UDC OROPHARYNG SCH ×2 (10:14→21:43)
[2018-01-02] MEDS: Carboxymethylcellulose 0.5% Opth Drops 15 ML Bottle EACH EYE SCH ×2 (10:15→21:38)
[2018-01-02] MEDS: Famotidine 20 MG Tablet PO SCH ×2 (10:15→21:39)
[2018-01-02] MEDS: Sodium Chloride 0.9% 2 ML Flush BID IV.FLUSH SCH ×2 (10:15→21:43)
[2018-01-02] MEDS: Senna/Docusate Sodium 8.6/50 MG Tablet PO SCH ×2 (10:15→21:43)
[2018-01-02] MEDS: Polyethylene Glycol 3350 17 GM Packet PO SCH ×2 (10:15→21:42)
[2018-01-02] MEDS: Collagenase Oint 30 GM Tube TOPICAL SCH (10:16)
--- NOTE | 2018-01-02 10:22 | P.PNID ---
Subjective Remarks: [facility] 62 [facility] with multiple med problems including a cage in back for spine per spouse. She was originally admitted on 11/23 with a diagnosis of C.diff colitis, found to have Norovirus. discharged on 12/11 at that time on PO vancomycin, but came back on 12/13 with altered mental status and hypoglycemia, again discharged on 12/15. She was mildly fatigued on 12/16 according to her and asked to wait another day before traveling back to her home in [place]. The am of admission she was unarousable and her called 911. She was intubated upon arrival to ER. CT chest/abd/pelvis demonstrates right pneumothorax, densely consolidated right lower lobe, bilateral pulmonary infiltrates, bowel wall thickening R sided CT was placed for pneumothorax Pt is on pressors On vent, with FiO2 90% RN reported that pt had 1 formed stool Overnight events reviewed with RN. Not on pressors. Remains intubated on vent. Tmax 101.5 F WBC 11.5 Diarrhea Cdiff positive Antibiotics: zosyn vanco PO micafungin Lines: Lines ok Past Medical History: reviewed Allergies/Adverse Reactions: Allergies No Known Allergies Allergy (Verified 12/13/17 08:04) Objective Vital Signs 01/01/18 12:00 01/01/18 12:09 01/01/18 12:10 Temperature 99.9 F H Pulse Rate 104 H 105 H Respiratory Rate 17 15 15 Blood Pressure 93/54 L Pulse Oximetry 100 99 01/01/18 14:00 01/01/18 15:58 01/01/18 15:59 Temperature Pulse Rate 114 H 114 H Respiratory Rate 19 18 Blood Pressure Pulse Oximetry 100 01/01/18 16:00 01/01/18 18:00 01/01/18 19:00 Temperature 99.4 F Pulse Rate 114 H 107 H 115 H Respiratory Rate 17 Blood Pressure 108/68 106/55 L Pulse Oximetry 100 01/01/18 19:25 01/01/18 19:31 01/01/18 20:00 Temperature 101.5 F H Pulse Rate 120 H 113 H Respiratory Rate 16 21 17 Blood Pressure 121/76 112/69 Pulse Oximetry 99 92 L 98 01/01/18 20:21 01/01/18 20:30 01/01/18 21:00 Temperature Pulse Rate 109 H 112 H 119 H Respiratory Rate 17 18 21 Blood Pressure 113/60 Pulse Oximetry 98 100 01/01/18 21:01 01/01/18 21:30 01/01/18 22:00 Temperature Pulse Rate 114 H 109 H 101 H Respiratory Rate 20 16 16 Blood Pressure 140/78 95/58 L 88/57 L Pulse Oximetry 100 99 98 01/01/18 22:30 01/01/18 23:00 01/01/18 23:29 Temperature Pulse Rate 98 H 100 H 97 H Respiratory Rate 15 16 16 Blood Pressure 89/54 L 96/58 L Pulse Oximetry 97 97 01/01/18 23:30 01/02/18 00:00 01/02/18 00:30 Temperature 98.5 F Pulse Rate 96 H 100 H 97 H Respiratory Rate 15 19 17 Blood Pressure 95/58 L 96/61 L 96/62 L Pulse Oximetry 97 95 96 01/02/18 01:00 01/02/18 01:30 01/02/18 02:00 Temperature Pulse Rate 96 H 107 H 108 H Respiratory Rate 16 26 H 24 Blood Pressure 92/58 L 101/73 115/74 Pulse Oximetry 97 98 96 01/02/18 02:30 01/02/18 03:00 01/02/18 03:30 Temperature Pulse Rate 109 H 105 H 104 H Respiratory Rate 22 21 23 Blood Pressure 104/69 99/59 L 92/61 L Pulse Oximetry 97 98 99 01/02/18 03:57 01/02/18 04:00 01/02/18 04:03 Temperature 100.6 F H Pulse Rate 104 H 109 H Respiratory Rate 19 20 19 Blood Pressure Pulse Oximetry 100 100 01/02/18 04:09 01/02/18 04:30 01/02/18 05:00 Temperature Pulse Rate 108 H 110 H 101 H Respiratory Rate 20 20 18 Blood Pressure 119/61 123/75 92/51 L Pulse Oximetry 100 99 100 01/02/18 05:31 01/02/18 06:00 01/02/18 06:30 Temperature Pulse Rate 108 H 111 H 116 H Respiratory Rate 22 22 25 H Blood Pressure 110/69 112/64 120/75 Pulse Oximetry 100 100 100 01/02/18 07:00 01/02/18 07:30 01/02/18 08:00 Temperature Pulse Rate 117 H 116 H 109 H Respiratory Rate 29 H 27 H 21 Blood Pressure 118/71 106/65 Pulse Oximetry 95 99 99 01/02/18 08:03 Temperature Pulse Rate 105 H Respiratory Rate 15 Blood Pressure Pulse Oximetry 100 Intake & Output 01/01/18 01/02/18 01/02/18 18:59 06:59 18:59 Intake Total 1911 100 / 100 Output Total 1830 / 1830 2410 / 2410 Balance 82 / 82 -420 / -420 100 / 100 Weight 77.9 kg Intake: IV 1000 / 1000 650 / 650 100 / 100 Diprivan 1000 mg/100 ml Inj 1, 200 / 200 200 / 200 000 mg In 100 ml @ 5 MCG/KG/MIN 2.904 mls/hr IV.CONT TITRATE PRN Rx#:[id number] Zosyn 4.5 GM Premix 4.5 gm In 200 / 200 100 / 100 100 ml @ 200 mls/hr IV.SIG Q6H BENJAMIN Rx#:[id number] KCl 20 mEq Premix Inj 20 meq In 100 / 100 100 / 100 100 / 100 100 ml @ 50 mls/hr IV.SIG Q2H PRN Rx#:[id number] fentaNYL 10 mcg/mL Premix Drip 500 / 500 250 / 250 2,500 mcg In 250 ml @ 50 MCG/HR 5 mls/hr IV.SIG TITRATE PRN Rx #:[id number] Oral 0 / 0 Tube Feeding 582 / 582 1100 / 1100 Tube Irrigant 90 / 90 Water Bolus Amount 240 / 240 240 / 240 Other 0 / 0 Output: Urine 1100 / 1100 950 / 950 Urine/Stool Mix 0 / 0 Urine Amount (Catheter) 600 / 600 1400 / 1400 Straight 600 / 600 1400 / 1400 Gastric Drainage 100 / 100 Oral 100 / 100 Chest Tube Drainage 30 / 30 60 / 60 #2 Right 0 / 0 60 / 60 #3 Right Upper 30 / 30 0 / 0 Other: # Voids 0 # Incontinent Voids 2 Date of Last Bowel Movement 01/01/18 01/02/18 # Bowel Movements 1 # Incontinent Bowel Movements 4 2 01/01/18 22:07 Blood - Peripheral Aerobic Blood Culture - Pending 01/01/18 22:07 Blood - Peripheral Anaerobic Blood Culture - Pending 01/01/18 19:45 Blood - Peripheral Aerobic Blood Culture - Pending 01/01/18 19:45 Blood - Peripheral Anaerobic Blood Culture - Pending 12/19/17 11:30 Bronchial Washings - Bronchial Fungal Smear - Final Rare budding yeast 12/19/17 11:30 Bronchial Washings - Bronchial Fungal Culture - Preliminary Lab - Hematology Results 01/01/18 01/02/18 05:25 05:32 WBC 10.9 11.5 H RBC 2.62 L 2.55 L Hgb 8.5 L 8.3 L Hct 25.6 L 24.5 L MCV 97.9 96.1 MCH 32.6 32.4 MCHC 33.3 33.7 RDW 15.6 14.9 Plt Count 348 361 MPV 9.3 8.6 Lab - Chemistry Results 12/31/17 01/01/18 01/01/18 11:45 01:33 05:25 Sodium 144 Potassium 2.1 L* D Chloride 96 L Carbon Dioxide 39.1 H Anion Gap 9 BUN 22 H Creatinine 0.58 Estimated GFR Greater than 89 POC Glucose 110 105 Random Glucose 83 Calcium 7.2 L* Prot Corrected Calcium 7.9 L Phosphorus 4.2 Magnesium 1.7 Total Protein 5.7 L D 01/01/18 01/01/18 01/01/18 06:05 11:53 18:35 Sodium Potassium Chloride Carbon Dioxide Anion Gap BUN Creatinine Estimated GFR POC Glucose 86 100 112 H Random Glucose Calcium Prot Corrected Calcium Phosphorus Magnesium Total Protein 01/01/18 01/02/18 01/02/18 22:07 01:58 05:32 Sodium 140 Potassium 2.6 L* 2.9 L* Chloride 96 L Carbon Dioxide 34.4 H Anion Gap 10 BUN 21 H Creatinine 0.64 Estimated GFR Greater than 89 POC Glucose 123 H Random Glucose 113 H Calcium 7.7 L Prot Corrected Calcium Phosphorus 4.2 Magnesium 1.5 Total Protein 01/02/18 06:25 Sodium Potassium Chloride Carbon Dioxide Anion Gap BUN Creatinine Estimated GFR POC Glucose 105 Random Glucose Calcium Prot Corrected Calcium Phosphorus Magnesium Total Protein Imaging: ITS Impressions Head CT 12/17/17 08:02 CONCLUSION: 1. 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 2. Otherwise negative. . Abdomen/Pelvis CT 12/17/17 10:45 CONCLUSION: 1. Moderate diffuse colonic wall thickening exaggerated by lack of colonic distention. This may be due to low-protein state/edema. However, differential considerations include infectious and inflammatory colitis. 2. Moderate-sized right hydropneumothorax with airspace disease in the lung bases as described on chest CT. 3. Additional ancillary findings, as above. Chest CT 12/21/17 04:03 CONCLUSION: 1. Moderate size right pneumothorax without tension. Also pneumopericardium and pneumomediastinum. Massive chest wall emphysema. 2. Bilateral airspace disease. 3.7 cm bilobed cavitary lesion of the right lower lobe. 3. Small left pleural effusion. No left pneumothorax. Chest X-Ray 12/31/17 05:00 CONCLUSION: Little change from prior exam Physical Exam: GENERAL: sedated int'd on mech vent'n SKIN: Warm and dry. No rash EYES: No scleral icterus. No injection or drainage. ENT: No nasal bleeding or discharge. Mucous membranes pink and moist. NECK: Trachea midline. No JVD. CARDIOVASCULAR: Regular rate and rhythm Very distant HS, nearly inaudible RESPIRATORY: No accessory muscle use. +extensive rhonchi to auscultation. very distant sounds Breath sounds decreased bilaterally. CT x 2 R side: superior with serous dc, no leak noted inferior with air leak and less purulent appearing drainage GASTROINTESTINAL: Abdomen soft, non-tender, distended. Hepatic and splenic margins not palpable. MUSCULOSKELETAL: Extremities without clubbing, cyanosis, 2+ edema. No obvious deformities. NEUROLOGICAL: sedated, unresponsive PSYCHIATRIC: unable to assess Assessment and Plan - Plan Sepsis (fever, leucocytosis) ongoing possible new. Coag neg staph likely pseudobacteremia Strep viridans: ? related to empyema torie Strep. 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 Lactobacillus resistant to Meropenem. Cannot use Clindamycin due to Cdiff. Clinically stable continue same regimen. If deteriorates overnight add Meropenem to Zosyn to cover other MDROs but continue Zosyn for Lactobacillus. cont micafungin for both grace glab and albicans. cont oral vanco for c.diff Follow repeat cultures. dw dw RN Dw CINDY MD. Chart reviewed. Medications reviewed. Literature reviewed. Time over 40 mins. Critical thinking and decision making. to resume care on Thursday01/04/2018. If any changes in interim please call sooner.
--- NOTE | 2018-01-02 10:49 | P.PNCC ---
Subjective Subjective Remarks/Hospital Course: This is a 62yF who was originally admitted on 11/23 with a diagnosis of colitis, found to have enterovirus. discharged on 12/11 at that time on PO vancomycin, but came back on 12/13 with altered mental status and hypoglycemia, again discharged on 12/15. She was mildly fatigued on 12/16 according to her and asked to wait another day before traveling back to her home in [place]. This morning, she was unarousable and her called 911. She was intubated upon arrival to the emergency department for agonal respirations. CXR demonstrates bilateral multifocal pneumonia. She is febrile, hypotensive. CVL placed in the ER and vasopressors initiated after 2L bolus crystalloid. CT chest/abd/pelvis demonstrates right pneumothorax, densely consolidated right lower lobe, bilateral pulmonary infiltrates, evidence of ongoing colitis. Patient continue to be unstable. Immediately after identifying ptx on CT scan, I emergently placed right chest tube with some improvements in hemodynamics, but ongoing distributive shock persists. I placed arterial line. No additional information available from the patient, ROS unobtainable. In discussion with the , she has not had any new complaints in the 48h she was home, and other than mild fatigue last night, no new complaints. She was able to walk to the bathroom without assistance yesterday. 12/18: shock remains. now on levophed, vasopressin, phenylephrine. second chest tube placed overnight for worsening SQ air. acidosis remains and is severe. 12/19: Afebrile. Remains on vasopressin drip only. On stress dose hydrocortisone. Evaluated by CT surgery. Not a candidate for intervention at the present time. Chest tube continues to leak. Epoprostenol added today 12/20: Afebrile. FiO2 has decreased and is currently 70%. Currently replacing potassium, phosphorus and magnesium. Recheck later this afternoon. Less chest tube leak today down to 1 chamber. 12/21: Overnight, worsening subcutaneous emphysema. A third chest tube placed by overnight supervisor bottle machines after discussion with cardiothoracic surgery. Currently hemodynamically stable. Replacing phosphorus today. To be evaluated by CT surgery today. 12/22: Remains sedated, orally intubated on mechanical ventilation. Persistent air leak and chest tube noted. 12/23: Remains sedated, orally intubated on mechanical ventilation. Air leak persists though slightly improved. PEEP at +5 FiO2 55%, inhaled Flolan continues. Central line replaced with right IJ triple-lumen catheter. 12/24: Remains sedated, orally intubated on mechanical ventilation. 1+ air leak from chest tube 3 noted. PEEP +5, FiO2 60%, inhaled Flolan continues. Decreasing subcutaneous emphysema noted. 12/25: Remains sedated, orally improved on mechanical ventilation. 1+ for leak from chest tube 2. PEEP +5, FiO2 50%. Starting to titrate inhaled Flolan down today. Initiating Lasix to mobilize fluid. SUBJECTIVE: 12/26: remains intubated. air leak continues from chest tube #3. drainage out of #1 and #2 are very serous. #1 was removed by myself today. all chest tube dressings changed by me today. repeat CXR pending. very volume overloaded. starting to diurese. off vasopressors. off pathway: still high fio2 requirements. 12/27: good diuresis overnight. very hypokalemic today and aggressively replacing. CXR unchanged. air leak unchanged. long discussion over long-term and short-term prognosis and plan of care with entire family today. all questions answered. 12/28: Continues to diurese. Remains on mechanical ventilation. Positive air leak in chest tube 3. 1 unit PRBCs transfused earlier for hemoglobin 6.9. 12/29: Remains on mechanical ventilation. Increasing subcutaneous emphysema noted. Air leak stopped and chest tube #2 and 3 currently. Flolan being titrated down. Chest x-ray shows appropriate positioning of 2 chest tubes with the more medial small right pneumothorax with significant subcutaneous emphysema bilaterally. Patient remains off pressors and is being diuresed to mobilize fluid. 12/30: volume removal continues. Cr still at baseline. fio2 down to 40% and off inhaled Flolan. discussed with Dr. Lynn: will need to wait at least until next week for VATS. Will need trach going forward: discussed with family and they are agreeable. Dr. Lynn asked that both chest tubes remain in place. air leak persists. remains intubated and sedated. 12/31: Sedated, orally intubated on mechanical ventilation. On 40% FiO2 PEEP + 5. Positive air leak in chest tube [address] surgery planning for VATS next week, will need tracheostomy coordinated as well. 01/01: Remains sedated, orally intubated on mechanical ventilation. PEEP +5, FiO2 35%. Being diuresed. 01/02: Sedated, orally intubated on mechanical ventilation. PEEP +5, FiO2 35%. Intermittent air leak in chest tube 3. Being diuresed Objective Vital Signs / I&O: Vital Signs 01/01/18 12:00 01/01/18 12:09 01/01/18 12:10 Temperature 99.9 F H Pulse Rate 104 H 105 H Respiratory Rate 17 15 15 Blood Pressure 93/54 L Pulse Oximetry 100 99 01/01/18 14:00 01/01/18 15:58 01/01/18 15:59 Temperature Pulse Rate 114 H 114 H Respiratory Rate 19 18 Blood Pressure Pulse Oximetry 100 01/01/18 16:00 01/01/18 18:00 01/01/18 19:00 Temperature 99.4 F Pulse Rate 114 H 107 H 115 H Respiratory Rate 17 Blood Pressure 108/68 106/55 L Pulse Oximetry 100 01/01/18 19:25 01/01/18 19:31 01/01/18 20:00 Temperature 101.5 F H Pulse Rate 120 H 113 H Respiratory Rate 16 21 17 Blood Pressure 121/76 112/69 Pulse Oximetry 99 92 L 98 01/01/18 20:21 01/01/18 20:30 01/01/18 21:00 Temperature Pulse Rate 109 H 112 H 119 H Respiratory Rate 17 18 21 Blood Pressure 113/60 Pulse Oximetry 98 100 01/01/18 21:01 01/01/18 21:30 01/01/18 22:00 Temperature Pulse Rate 114 H 109 H 101 H Respiratory Rate 20 16 16 Blood Pressure 140/78 95/58 L 88/57 L Pulse Oximetry 100 99 98 01/01/18 22:30 01/01/18 23:00 01/01/18 23:29 Temperature Pulse Rate 98 H 100 H 97 H Respiratory Rate 15 16 16 Blood Pressure 89/54 L 96/58 L Pulse Oximetry 97 97 01/01/18 23:30 01/02/18 00:00 01/02/18 00:30 Temperature 98.5 F Pulse Rate 96 H 100 H 97 H Respiratory Rate 15 19 17 Blood Pressure 95/58 L 96/61 L 96/62 L Pulse Oximetry 97 95 96 01/02/18 01:00 01/02/18 01:30 01/02/18 02:00 Temperature Pulse Rate 96 H 107 H 108 H Respiratory Rate 16 26 H 24 Blood Pressure 92/58 L 101/73 115/74 Pulse Oximetry 97 98 96 01/02/18 02:30 01/02/18 03:00 01/02/18 03:30 Temperature Pulse Rate 109 H 105 H 104 H Respiratory Rate 22 21 23 Blood Pressure 104/69 99/59 L 92/61 L Pulse Oximetry 97 98 99 01/02/18 03:57 01/02/18 04:00 01/02/18 04:03 Temperature 100.6 F H Pulse Rate 104 H 109 H Respiratory Rate 19 20 19 Blood Pressure Pulse Oximetry 100 100 01/02/18 04:09 01/02/18 04:30 01/02/18 05:00 Temperature Pulse Rate 108 H 110 H 101 H Respiratory Rate 20 20 18 Blood Pressure 119/61 123/75 92/51 L Pulse Oximetry 100 99 100 01/02/18 05:31 01/02/18 06:00 01/02/18 06:30 Temperature Pulse Rate 108 H 111 H 116 H Respiratory Rate 22 22 25 H Blood Pressure 110/69 112/64 120/75 Pulse Oximetry 100 100 100 01/02/18 07:00 01/02/18 07:30 01/02/18 08:00 Temperature Pulse Rate 117 H 116 H 109 H Respiratory Rate 29 H 27 H 21 Blood Pressure 118/71 106/65 Pulse Oximetry 95 99 99 01/02/18 08:03 Temperature Pulse Rate 105 H Respiratory Rate 15 Blood Pressure Pulse Oximetry 100 Intake & Output 01/01/18 01/02/18 01/02/18 18:59 06:59 18:59 Intake Total 1912 / 1912 2090 / 2090 300 / 300 Output Total 1830 / 1830 2410 / 2410 Balance 82 / 82 -320 / -320 300 / 300 Weight 77.9 kg Intake: IV 1000 / 1000 750 / 750 300 / 300 Diprivan 1000 mg/100 ml Inj 1, 200 / 200 200 / 200 0 / 0 000 mg In 100 ml @ 5 MCG/KG/MIN 2.904 mls/hr IV.CONT TITRATE PRN Rx#:[id number] Mycamine Inj 150 MG In NS Inj 100 / 100 100 ML @ 100 mls/hr IV.SIG Q24H BENJAMIN Rx#:[id number] Zosyn 4.5 GM Premix 4.5 gm In 200 / 200 200 / 200 100 ml @ 200 mls/hr IV.SIG Q6H [facility]IN Rx#:[id number] KCl 20 mEq Premix Inj 20 meq In 100 / 100 100 / 100 200 / 200 100 ml @ 50 mls/hr IV.SIG Q2H PRN Rx#:[id number] fentaNYL 10 mcg/mL Premix Drip 500 / 500 250 / 250 2,500 mcg In 250 ml @ 50 MCG/HR 5 mls/hr IV.SIG TITRATE PRN Rx #:[id number] Oral 0 / 0 Tube Feeding 582 / 582 1100 / 1100 Tube Irrigant 90 / 90 Water Bolus Amount 240 / 240 240 / 240 Other 0 / 0 Output: Urine 1100 / 1100 950 / 950 Urine/Stool Mix 0 / 0 Urine Amount (Catheter) 600 / 600 1400 / 1400 Straight 600 / 600 1400 / 1400 Gastric Drainage 100 / 100 Oral 100 / 100 Chest Tube Drainage 30 / 30 60 / 60 #2 Right 0 / 0 60 / 60 #3 Right Upper 30 / 30 0 / 0 Other: # Voids 0 # Incontinent Voids 2 Date of Last Bowel Movement 01/01/18 01/02/18 # Bowel Movements 1 # Incontinent Bowel Movements 4 2 Result Diagrams: 01/02/18 05:32 01/02/18 05:32 Objective Remarks: GENERAL: 62-year-old middle-aged female, lying in bed, intubated, sedated, critically ill. HEENT: Normocephalic. Atraumatic. Pupils equal, round, reactive, conjugate. Positive left scleral edema. decreasing SQ air. Mucous membranes are moist NECK: Trachea is midline. CHEST: Equal chest rise. PRVC. 35% FiO2, PEEP 5. 2 right-sided chest tubes, persistent air leak +1 in chest tube labeled "#3". Off Flolan for more than 24 hours CARDIOVASCULAR: normal rate, regular rhythm. sinus. ABDOMEN: Soft, nontender, nondistended. No guarding. MUSCULOSKELETAL: Pulses 2+. gross anasarca. 2+ edema grossly. NEUROLOGICAL: RASS -3. Withdraws to pain x4. Does not follow commands. Assessment and Plan - Assessment and Plan Plan: Assessment: 62yF with HCAP pneumonia, bacteremia, and bleb rupture causing significant persistent air leak. remains with hypoxic respiratory failure. aggressive diuresis efforts. at some point will likely require VATS apical blebectomy, but remains likely too ill for this. remains very critically ill and off pathway. Neuro/Psych: Acute metabolic encephalopathy Possible seizure disorder Currently on fentany/ propofol drips for sedation/analgesia while intubated daily sedation vacation. goal RASS -2 She was started on anticonvulsants on her initial admission 11/23. Valproic acid 500 mg 3 times daily. Check level was 40 12/[address] 12/17- for acute disease EEG - Diffuse slowing consistent with a moderate diffuse encephalopathy. No epileptiform activity Acetaminophen 650 by tube every 6 hours as needed fever Continue quetiapine 25 mg daily/home medication Holding tizanidine 4 mg daily Respiratory: Acute hypoxic and hypercarbic respiratory failure- persistent Acute severe bilateral multifocal healthcare associated pneumonia Possible aspiration pneumonia Spontaneous right-sided tension pneumothorax Subcutaneous Emphysema Chest tube #1: 12/17- removed 12/26 Chest tube #2: 12/17 Chest tube #3: 12/19 CT surgery/Dr. Lynn following. air leak in chest tube 3 stopped 12/29 CT thorax overnight 12/12 revealed significant 3.7 cm moderate right pneumothorax without tension. Pneumopericardium and significant subcutaneous emphysema. Vent bundle PRVC mode, peep 5 Epoprostanol added 12/19, removed 12/29. Head of bed elevated Albuterol/ipratropium aerosols every 4 hours with albuterol aerosols every 2 hours as needed dyspnea Wean FiO2 for goal SPO2 greater than 90% AM CXR continue forced diuresis. Cardiovascular: Septic shock- resolved Elevated troponin Type II NSTEMI secondary to demand ischemia Hyperlipidemia Holding lisinopril 30 mg daily/home medication. Resume pravastatin 80 mg daily when clinically indicated continue hydrocortisone wean continue lasix 40mg iv q6h. add concentrated albumin to maintain intravascular volume. Renal: Acute kidney injury (resolved) Secondary to shock, off pressors d/c acevedo Frequent urine output monitoring Daily creatinine KVO IV fluid. Lasix to mobilize fluid, diamox 500 iv q8h x 3 doses on 12/30. -- Strict I/Os FEN/GI: Acute protein calorie malnutritionmoderate Lactic acidosis- resolving. Severe colitis Enterovirus colitis C. difficile colitis Hyperammonemia Acute hypophosphatemia Acute hypernatremia Currently on lactulose 30 cc twice daily Tube feeding with vital 1.5 goal 55 cc now. Metoclopramide 1 mg 3 times daily ICU electrolyte protocol Daily BMP, magnesium, phosphorus Trend lactates Lactulose/polythene glycol twice daily Holding dicyclomine 20 mg 3 times daily sendn pre-albumin. Heme/ID: C. difficile colitis Enterovirus colitis Septic shock Healthcare associated multifocal pneumonia Possible gram-positive cocci bacteremia Early empyema 1 unit PRBCs transfused on 12/28 for hemoglobin 6.9, recheck CBC and transfuse to keep hemoglobin above 8 g% Vancomycin p.o. with pharmacy dosing Continue Zosyn, micafungin Bronchoscopy 12/19 with gram-negative rods Pleural fluid 12/19 with gram-negative rods Pleural fluid 12/17 -g Karla albicans/glabrata Klebsiella, gram-positive rods 12/17 -sputum -Klebsiella 12/17 blood-strep viridians/coag negative staph Infectious disease consulted and following. Endocrine: Acute hypoglycemia- resolving. Sliding scale insulin Accu-Cheks every 6 hours to maintain euglycemia Prophylaxis: GI Prophylaxis Famotidine DVT Prophylaxis -- SCDs Subcu heparin Lines: 12/23: RIJ central line placed 12/23 12/17 femoral triple-lumen catheter discontinued 12/23 12/17 right radial arterial line discontinued 12/21 12/17 right 28 Lao chest tube to -40 cm suction: removed 12/26 12/17 right 32 Lao chest tube to -40 cm suction 12/19 -right #32 Lao chest tube to -40 cm suction 12/17 Acevedo- remove today. Discussed with patient's at bedside regarding current clinical status and plan of care and he voiced understanding. He wanted to know date for planned VATS by Dr. Lynn as patient's daughter would like to be there on day of surgery. Critical care time 35 minutes excluding procedures
[2018-01-02] MEDS: Potassium Chloride 25 MEQ Effervescent Tablet PO PRN ×2 (12:10→21:47)
[2018-01-02] MEDS: Magnesium Sulfate Inj 2 GM in Sodium Chlor 0.9% Inj 96 ML IV.SIG PRN (15:50)
[2018-01-02] MEDS: Micafungin Inj 150 MG in Sodium Chlor 0.9% Inj 100 ML IV.SIG SCH (17:24)
[2018-01-02] MEDS: QUEtiapine 25 MG Tablet PO SCH (21:39)
[2018-01-03] MEDS: fentaNYL 10 mcg/mL Premix Drip 2,500 MCG/250 ML BAG IV.SIG PRN ×3 (02:06→22:09)
[2018-01-03] MEDS: Oral Hygiene Kit OROPHARYNG SCH ×4 (02:35→16:04)
[2018-01-03] MEDS: Insulin NovoLIN Regular Correctional Sugar Inj SQ SCH ×4 (02:35→17:09)
[2018-01-03] MEDS: Heparin - SQ 10,000 UNITS/ML Vial SQ SCH ×3 (06:08→21:02)
[2018-01-03] MEDS: Piperacil/Tazo 4.5 GM Premix 4.5 GM/100 ML BAG IV.SIG SCH ×4 (06:09→21:01)
[2018-01-03] MEDS: Propofol 1000 mg/100 ml Inj 1,000 MG/100 ML BOTTLE IV.CONT PRN ×3 (07:34→17:44)
[2018-01-03] MEDS: Carboxymethylcellulose 0.5% Opth Drops 15 ML Bottle EACH EYE SCH ×2 (08:56→20:53)
[2018-01-03] MEDS: Famotidine 20 MG Tablet PO SCH ×2 (08:56→20:53)
[2018-01-03] MEDS: Sodium Chloride 0.9% 2 ML Flush BID IV.FLUSH SCH ×2 (08:57→20:53)
[2018-01-03] MEDS: Polyethylene Glycol 3350 17 GM Packet PO SCH ×2 (08:57→20:53)
[2018-01-03] MEDS: Chlorhexidine 0.12% Oral Kit 15 ML UDC OROPHARYNG SCH ×2 (08:57→20:52)
[2018-01-03] MEDS: Collagenase Oint 30 GM Tube TOPICAL SCH (08:57)
[2018-01-03] MEDS: Senna/Docusate Sodium 8.6/50 MG Tablet PO SCH ×2 (08:57→20:53)
--- NOTE | 2018-01-03 10:43 | P.PNID ---
Subjective Remarks: [facility] 62 [facility] with multiple med problems including a cage in back for spine per spouse. She was originally admitted on 11/23 with a diagnosis of C.diff colitis, found to have Norovirus. discharged on 12/11 at that time on PO vancomycin, but came back on 12/13 with altered mental status and hypoglycemia, again discharged on 12/15. She was mildly fatigued on 12/16 according to her and asked to wait another day before traveling back to her home in [place]. The am of admission she was unarousable and her called 911. She was intubated upon arrival to ER. CT chest/abd/pelvis demonstrates right pneumothorax, densely consolidated right lower lobe, bilateral pulmonary infiltrates, bowel wall thickening R sided CT was placed for pneumothorax Pt is on pressors On vent, with FiO2 90% RN reported that pt had 1 formed stool Overnight events reviewed with RN. Not on pressors. Remains intubated on vent. Tmax 100.1 F WBC 11.5 Diarrhea Cdiff positive Antibiotics: zosyn vanco PO micafungin Lines: Lines ok Past Medical History: reviewed Allergies/Adverse Reactions: Allergies No Known Allergies Allergy (Verified 12/13/17 08:04) Objective Vital Signs 01/02/18 11:00 01/02/18 11:01 01/02/18 11:23 Temperature Pulse Rate 109 H 110 H 107 H Respiratory Rate 22 21 34 H Blood Pressure 114/64 Pulse Oximetry 100 100 100 01/02/18 11:30 01/02/18 12:00 01/02/18 12:49 Temperature 99.7 F H Pulse Rate 109 H 111 H 123 H Respiratory Rate 24 20 22 Blood Pressure 101/59 L 114/60 133/82 Pulse Oximetry 100 100 97 01/02/18 13:00 01/02/18 13:30 01/02/18 14:00 Temperature Pulse Rate 113 H 115 H 104 H Respiratory Rate 22 20 15 Blood Pressure 112/67 112/69 97/61 L Pulse Oximetry 99 98 97 01/02/18 14:30 01/02/18 15:00 01/02/18 15:30 Temperature Pulse Rate 109 H 110 H 101 H Respiratory Rate 17 18 16 Blood Pressure 112/67 104/65 87/53 L Pulse Oximetry 96 96 96 01/02/18 16:00 01/02/18 16:30 01/02/18 17:21 Temperature 100.1 F H Pulse Rate 104 H 109 H Respiratory Rate 18 10 L 16 Blood Pressure 109/64 101/55 L Pulse Oximetry 96 97 97 01/02/18 18:00 01/02/18 19:00 01/02/18 19:30 Temperature Pulse Rate 105 H 101 H 106 H Respiratory Rate 16 18 Blood Pressure 97/62 L 103/65 Pulse Oximetry 95 96 01/02/18 20:00 01/02/18 20:30 01/02/18 20:38 Temperature 99.8 F H Pulse Rate 109 H 102 H 101 H Respiratory Rate 18 0 L 17 Blood Pressure 109/65 90/54 L Pulse Oximetry 98 97 97 01/02/18 21:00 01/02/18 21:30 01/02/18 22:00 Temperature Pulse Rate 100 H 112 H 111 H Respiratory Rate 16 17 17 Blood Pressure 96/58 L 127/70 122/64 Pulse Oximetry 97 98 97 01/02/18 22:30 01/02/18 23:00 01/02/18 23:15 Temperature Pulse Rate 109 H 109 H Respiratory Rate 14 14 18 Blood Pressure 102/61 106/69 Pulse Oximetry 99 98 98 01/02/18 23:30 01/03/18 00:00 01/03/18 00:30 Temperature 99.7 F H Pulse Rate 106 H 108 H 108 H Respiratory Rate 15 17 19 Blood Pressure 99/61 L 106/67 106/67 Pulse Oximetry 99 98 98 01/03/18 01:00 01/03/18 01:30 01/03/18 02:00 Temperature Pulse Rate 109 H 111 H 107 H Respiratory Rate 16 19 19 Blood Pressure 109/67 107/68 104/63 Pulse Oximetry 98 98 98 01/03/18 02:30 01/03/18 03:00 01/03/18 03:30 Temperature Pulse Rate 106 H 110 H 110 H Respiratory Rate 18 18 18 Blood Pressure 103/64 109/73 107/67 Pulse Oximetry 99 98 98 01/03/18 04:00 01/03/18 04:30 01/03/18 04:35 Temperature 100.4 F H Pulse Rate 111 H 112 H Respiratory Rate 20 18 18 Blood Pressure 108/70 102/65 Pulse Oximetry 98 99 98 01/03/18 05:00 01/03/18 05:30 01/03/18 06:00 Temperature Pulse Rate 108 H 110 H 109 H Respiratory Rate 17 15 20 Blood Pressure 103/61 110/63 102/64 Pulse Oximetry 99 99 100 01/03/18 06:30 01/03/18 07:00 01/03/18 07:25 Temperature Pulse Rate 113 H 111 H 114 H Respiratory Rate 11 L 18 21 Blood Pressure 109/76 114/70 104/61 Pulse Oximetry 100 98 100 01/03/18 07:30 01/03/18 07:58 01/03/18 08:00 Temperature 99.6 F Pulse Rate 119 H 116 H 113 H Respiratory Rate 33 H 18 20 Blood Pressure 114/56 L 98/60 L Pulse Oximetry 98 99 100 01/03/18 08:30 01/03/18 09:00 01/03/18 09:30 Temperature Pulse Rate 109 H 107 H 118 H Respiratory Rate 17 21 25 H Blood Pressure 96/55 L 88/61 L 99/65 L Pulse Oximetry 100 100 100 01/03/18 10:00 Temperature Pulse Rate 113 H Respiratory Rate 21 Blood Pressure 96/53 L Pulse Oximetry 100 Intake & Output 01/02/18 01/03/18 01/03/18 18:59 06:59 18:59 Intake Total 2250 / 2250 450 / 450 100 / 100 Output Total 1000 / 1000 1000 / 1000 Balance 1250 / 1250 -550 / -550 100 / 100 Intake: IV 1350 / 1350 450 / 450 100 / 100 Diprivan 1000 mg/100 ml Inj 1, 200 / 200 100 / 100 100 / 100 000 mg In 100 ml @ 5 MCG/KG/MIN 2.904 mls/hr IV.CONT TITRATE PRN Rx#:[id number] Magnesium Sulfate Inj 2 GM In 100 / 100 NS Inj 96 ML @ 50 mls/hr IV.SIG UNSCH PRN Rx#:[id number] Mycamine Inj 150 MG In NS Inj 200 / 200 100 ML @ 100 mls/hr IV.SIG Q24H BENJAMIN Rx#:[id number] Zosyn 4.5 GM Premix 4.5 gm In 200 / 200 100 / 100 100 ml @ 200 mls/hr IV.SIG Q6H BENJAMIN Rx#:[id number] KCl 20 mEq Premix Inj 20 meq In 400 / 400 100 ml @ 50 mls/hr IV.SIG Q2H PRN Rx#:[id number] fentaNYL 10 mcg/mL Premix Drip 250 / 250 250 / 250 2,500 mcg In 250 ml @ 50 MCG/HR 5 mls/hr IV.SIG TITRATE PRN Rx #:[id number] Tube Feeding 660 / 660 Water Bolus Amount 240 / 240 Output: Urine 1000 / 1000 1000 / 1000 Chest Tube Drainage 0 / 0 #2 Right 0 / 0 #3 Right Upper 0 / 0 Other: # Incontinent Voids 1 Date of Last Bowel Movement 01/02/18 01/02/18 01/02/18 01/02/18 17:28 Sputum - Endotracheal Gram Stain - Final 01/02/18 17:28 Sputum - Endotracheal Sputum Culture - Pending 12/19/17 11:30 Bronchial Washings - Bronchial Acid Fast Bacilli Smear - Final No acid fast bacilli seen 12/19/17 11:30 Bronchial Washings - Bronchial Mycobacterial Culture - Preliminary No growth in 2 weeks 01/01/18 22:07 Blood - Peripheral Aerobic Blood Culture - Preliminary No growth in 1 day 01/01/18 22:07 Blood - Peripheral Anaerobic Blood Culture - Preliminary No growth in 1 day 01/01/18 19:45 Blood - Peripheral Aerobic Blood Culture - Preliminary No growth in 1 day 01/01/18 19:45 Blood - Peripheral Anaerobic Blood Culture - Preliminary No growth in 1 day 12/19/17 11:30 Bronchial Washings - Bronchial Fungal Smear - Final Rare budding yeast 12/19/17 11:30 Bronchial Washings - Bronchial Fungal Culture - Preliminary Lab - Hematology Results 01/02/18 05:32 WBC 11.5 H RBC 2.55 L Hgb 8.3 L Hct 24.5 L MCV 96.1 MCH 32.4 MCHC 33.7 RDW 14.9 Plt Count 361 MPV 8.6 Lab - Chemistry Results 01/01/18 01/01/18 01/01/18 11:53 18:35 22:07 Sodium Potassium 2.6 L* Chloride Carbon Dioxide Anion Gap BUN Creatinine Estimated GFR POC Glucose 100 112 H Random Glucose Calcium Phosphorus Magnesium 01/02/18 01/02/18 01/02/18 01:58 05:32 06:25 Sodium 140 Potassium 2.9 L* Chloride 96 L Carbon Dioxide 34.4 H Anion Gap 10 BUN 21 H Creatinine 0.64 Estimated GFR Greater than 89 POC Glucose 123 H 105 Random Glucose 113 H Calcium 7.7 L Phosphorus 4.2 Magnesium 1.5 01/02/18 01/02/18 01/02/18 10:40 12:08 17:40 Sodium Potassium 2.9 L* Chloride Carbon Dioxide Anion Gap BUN Creatinine Estimated GFR POC Glucose 129 H 126 H Random Glucose Calcium Phosphorus Magnesium 01/02/18 01/02/18 01/03/18 20:55 23:36 06:07 Sodium Potassium 3.3 L Chloride Carbon Dioxide Anion Gap BUN Creatinine Estimated GFR POC Glucose 130 H 117 H Random Glucose Calcium Phosphorus Magnesium Imaging: ITS Impressions Head CT 12/17/17 08:02 CONCLUSION: 1. 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 2. Otherwise negative. . Abdomen/Pelvis CT 12/17/17 10:45 CONCLUSION: 1. Moderate diffuse colonic wall thickening exaggerated by lack of colonic distention. This may be due to low-protein state/edema. However, differential considerations include infectious and inflammatory colitis. 2. Moderate-sized right hydropneumothorax with airspace disease in the lung bases as described on chest CT. 3. Additional ancillary findings, as above. Chest CT 12/21/17 04:03 CONCLUSION: 1. Moderate size right pneumothorax without tension. Also pneumopericardium and pneumomediastinum. Massive chest wall emphysema. 2. Bilateral airspace disease. 3.7 cm bilobed cavitary lesion of the right lower lobe. 3. Small left pleural effusion. No left pneumothorax. Chest X-Ray 12/31/17 05:00 CONCLUSION: Little change from prior exam Physical Exam: GENERAL: [facility] SKIN: Warm and dry. No rash EYES: No scleral icterus. No injection or drainage. ENT: No nasal bleeding or discharge. Mucous membranes pink and moist. NECK: Trachea midline. No JVD. CARDIOVASCULAR: Regular rate and rhythm Very distant HS, nearly inaudible RESPIRATORY: No accessory muscle use. +extensive rhonchi to auscultation. very distant sounds Breath sounds decreased bilaterally. CT x 2 R side: superior with serous dc, no leak noted inferior with air leak and less purulent appearing drainage GASTROINTESTINAL: Abdomen soft, non-tender, distended. Hepatic and splenic margins not palpable. MUSCULOSKELETAL: Extremities without clubbing, cyanosis, 2+ edema. No obvious deformities. NEUROLOGICAL: sedated, unresponsive PSYCHIATRIC: unable to assess Assessment and Plan - Plan Sepsis (fever, leucocytosis) ongoing possible new. Coag neg staph likely pseudobacteremia Strep viridans: ? related to empyema torie Strep. 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 Lactobacillus resistant to Meropenem. Cannot use Clindamycin due to Cdiff. Clinically stable continue same regimen. If deteriorates overnight add Meropenem to Zosyn to cover other MDROs but continue Zosyn for Lactobacillus. cont micafungin for both grace glab and albicans. cont oral vanco for c.diff Follow repeat cultures. dw dw RN Chart reviewed. Medications reviewed. Literature reviewed. Time over 40 mins. Critical thinking and decision making. to resume care on Thursday01/04/2018. If any changes in interim please call sooner.
--- NOTE | 2018-01-03 12:09 | P.PNCC ---
Subjective Subjective Remarks/Hospital Course: This is a 62yF who was originally admitted on 11/23 with a diagnosis of colitis, found to have enterovirus. discharged on 12/11 at that time on PO vancomycin, but came back on 12/13 with altered mental status and hypoglycemia, again discharged on 12/15. She was mildly fatigued on 12/16 according to her and asked to wait another day before traveling back to her home in [place]. This morning, she was unarousable and her called 911. She was intubated upon arrival to the emergency department for agonal respirations. CXR demonstrates bilateral multifocal pneumonia. She is febrile, hypotensive. CVL placed in the ER and vasopressors initiated after 2L bolus crystalloid. CT chest/abd/pelvis demonstrates right pneumothorax, densely consolidated right lower lobe, bilateral pulmonary infiltrates, evidence of ongoing colitis. Patient continue to be unstable. Immediately after identifying ptx on CT scan, I emergently placed right chest tube with some improvements in hemodynamics, but ongoing distributive shock persists. I placed arterial line. No additional information available from the patient, ROS unobtainable. In discussion with the , she has not had any new complaints in the 48h she was home, and other than mild fatigue last night, no new complaints. She was able to walk to the bathroom without assistance yesterday. 12/18: shock remains. now on levophed, vasopressin, phenylephrine. second chest tube placed overnight for worsening SQ air. acidosis remains and is severe. 12/19: Afebrile. Remains on vasopressin drip only. On stress dose hydrocortisone. Evaluated by CT surgery. Not a candidate for intervention at the present time. Chest tube continues to leak. Epoprostenol added today 12/20: Afebrile. FiO2 has decreased and is currently 70%. Currently replacing potassium, phosphorus and magnesium. Recheck later this afternoon. Less chest tube leak today down to 1 chamber. 12/21: Overnight, worsening subcutaneous emphysema. A third chest tube placed by overnight ag equipment field service technician after discussion with cardiothoracic surgery. Currently hemodynamically stable. Replacing phosphorus today. To be evaluated by CT surgery today. 12/22: Remains sedated, orally intubated on mechanical ventilation. Persistent air leak and chest tube noted. 12/23: Remains sedated, orally intubated on mechanical ventilation. Air leak persists though slightly improved. PEEP at +5 FiO2 55%, inhaled Flolan continues. Central line replaced with right IJ triple-lumen catheter. 12/24: Remains sedated, orally intubated on mechanical ventilation. 1+ air leak from chest tube 3 noted. PEEP +5, FiO2 60%, inhaled Flolan continues. Decreasing subcutaneous emphysema noted. 12/25: Remains sedated, orally improved on mechanical ventilation. 1+ for leak from chest tube 2. PEEP +5, FiO2 50%. Starting to titrate inhaled Flolan down today. Initiating Lasix to mobilize fluid. 12/26: remains intubated. air leak continues from chest tube #3. drainage out of #1 and #2 are very serous. #1 was removed by myself today. all chest tube dressings changed by me today. repeat CXR pending. very volume overloaded. starting to diurese. off vasopressors. off pathway: still high fio2 requirements. 12/27: good diuresis overnight. very hypokalemic today and aggressively replacing. CXR unchanged. air leak unchanged. long discussion over long-term and short-term prognosis and plan of care with entire family today. all questions answered. 12/28: Continues to diurese. Remains on mechanical ventilation. Positive air leak in chest tube 3. 1 unit PRBCs transfused earlier for hemoglobin 6.9. 12/29: Remains on mechanical ventilation. Increasing subcutaneous emphysema noted. Air leak stopped and chest tube #2 and 3 currently. Flolan being titrated down. Chest x-ray shows appropriate positioning of 2 chest tubes with the more medial small right pneumothorax with significant subcutaneous emphysema bilaterally. Patient remains off pressors and is being diuresed to mobilize fluid. 12/30: volume removal continues. Cr still at baseline. fio2 down to 40% and off inhaled Flolan. discussed with Dr. Lynn: will need to wait at least until next week for VATS. Will need trach going forward: discussed with family and they are agreeable. Dr. Lynn asked that both chest tubes remain in place. air leak persists. remains intubated and sedated. 12/31: Sedated, orally intubated on mechanical ventilation. On 40% FiO2 PEEP + 5. Positive air leak in chest tube [address] surgery planning for VATS next week, will need tracheostomy coordinated as well. 01/01: Remains sedated, orally intubated on mechanical ventilation. PEEP +5, FiO2 35%. Being diuresed. 01/02: Sedated, orally intubated on mechanical ventilation. PEEP +5, FiO2 35%. Intermittent air leak in chest tube 3. Being diuresed SUBJECTIVE: 01/03: persistent air leak. hypoxia improving. discussed case with Dr. Lynn- he would like pre-operative CT chest for surgical planning. we also discussed timing of tracheostomy: it would be easier surgically to have ett in place to place double-lumen ett, so he would prefer to keep ett until after operation, and then proceed with tracheostomy. tentatively VATS planned for Friday 01/05. Objective Vital Signs / I&O: Vital Signs 01/02/18 12:00 01/02/18 12:49 01/02/18 13:00 Temperature 37.6 C H Pulse Rate 111 H 123 H 113 H Respiratory Rate 20 22 22 Blood Pressure 114/60 133/82 112/67 Pulse Oximetry 100 97 99 01/02/18 13:30 01/02/18 14:00 01/02/18 14:30 Temperature Pulse Rate 115 H 104 H 109 H Respiratory Rate 20 15 17 Blood Pressure 112/69 97/61 L 112/67 Pulse Oximetry 98 97 96 01/02/18 15:00 01/02/18 15:30 01/02/18 16:00 Temperature 37.8 C H Pulse Rate 110 H 101 H 104 H Respiratory Rate 18 16 18 Blood Pressure 104/65 87/53 L 109/64 Pulse Oximetry 96 96 96 01/02/18 16:30 01/02/18 17:21 01/02/18 18:00 Temperature Pulse Rate 109 H 105 H Respiratory Rate 10 L 16 Blood Pressure 101/55 L Pulse Oximetry 97 97 01/02/18 19:00 01/02/18 19:30 01/02/18 20:00 Temperature 37.7 C H Pulse Rate 101 H 106 H 109 H Respiratory Rate 16 18 18 Blood Pressure 97/62 L 103/65 109/65 Pulse Oximetry 95 96 98 01/02/18 20:30 01/02/18 20:38 01/02/18 21:00 Temperature Pulse Rate 102 H 101 H 100 H Respiratory Rate 0 L 17 16 Blood Pressure 90/54 L 96/58 L Pulse Oximetry 97 97 97 01/02/18 21:30 01/02/18 22:00 01/02/18 22:30 Temperature Pulse Rate 112 H 111 H 109 H Respiratory Rate 17 17 14 Blood Pressure 127/70 122/64 102/61 Pulse Oximetry 98 97 99 01/02/18 23:00 01/02/18 23:15 01/02/18 23:30 Temperature Pulse Rate 109 H 106 H Respiratory Rate 14 18 15 Blood Pressure 106/69 99/61 L Pulse Oximetry 98 98 99 01/03/18 00:00 01/03/18 00:30 01/03/18 01:00 Temperature 37.6 C H Pulse Rate 108 H 108 H 109 H Respiratory Rate 17 19 16 Blood Pressure 106/67 106/67 109/67 Pulse Oximetry 98 98 98 01/03/18 01:30 01/03/18 02:00 01/03/18 02:30 Temperature Pulse Rate 111 H 107 H 106 H Respiratory Rate 19 19 18 Blood Pressure 107/68 104/63 103/64 Pulse Oximetry 98 98 99 01/03/18 03:00 01/03/18 03:30 01/03/18 04:00 Temperature 38.0 C H Pulse Rate 110 H 110 H 111 H Respiratory Rate 18 18 20 Blood Pressure 109/73 107/67 108/70 Pulse Oximetry 98 98 98 01/03/18 04:30 01/03/18 04:35 01/03/18 05:00 Temperature Pulse Rate 112 H 108 H Respiratory Rate 18 18 17 Blood Pressure 102/65 103/61 Pulse Oximetry 99 98 99 01/03/18 05:30 01/03/18 06:00 01/03/18 06:30 Temperature Pulse Rate 110 H 109 H 113 H Respiratory Rate 15 20 11 L Blood Pressure 110/63 102/64 109/76 Pulse Oximetry 99 100 100 01/03/18 07:00 01/03/18 07:25 01/03/18 07:30 Temperature Pulse Rate 111 H 114 H 119 H Respiratory Rate 18 21 33 H Blood Pressure 114/70 104/61 114/56 L Pulse Oximetry 98 100 98 01/03/18 07:58 01/03/18 08:00 01/03/18 08:30 Temperature 37.6 C Pulse Rate 116 H 113 H 109 H Respiratory Rate 18 20 17 Blood Pressure 98/60 L 96/55 L Pulse Oximetry 99 100 100 01/03/18 09:00 01/03/18 09:30 01/03/18 10:00 Temperature Pulse Rate 107 H 118 H 113 H Respiratory Rate 21 25 H 21 Blood Pressure 88/61 L 99/65 L 96/53 L Pulse Oximetry 100 100 100 01/03/18 11:49 Temperature Pulse Rate 117 H Respiratory Rate 19 Blood Pressure Pulse Oximetry 98 Intake & Output 01/02/18 01/03/18 01/03/18 18:59 06:59 18:59 Intake Total 2250 / 2250 450 / 450 100 / 100 Output Total 1000 / 1000 1000 / 1000 Balance 1250 / 1250 -550 / -550 100 / 100 Intake: IV 1350 / 1350 450 / 450 100 / 100 Diprivan 1000 mg/100 ml Inj 1, 200 / 200 100 / 100 100 / 100 000 mg In 100 ml @ 5 MCG/KG/MIN 2.904 mls/hr IV.CONT TITRATE PRN Rx#:[id number] Magnesium Sulfate Inj 2 GM In 100 / 100 NS Inj 96 ML @ 50 mls/hr IV.SIG UNSCH PRN Rx#:[id number] Mycamine Inj 150 MG In NS Inj 200 / 200 100 ML @ 100 mls/hr IV.SIG Q24H BENJAMIN Rx#:[id number] Zosyn 4.5 GM Premix 4.5 gm In 200 / 200 100 / 100 100 ml @ 200 mls/hr IV.SIG Q6H B[place]AMIN Rx#:[id number] KCl 20 mEq Premix Inj 20 meq In 400 / 400 100 ml @ 50 mls/hr IV.SIG Q2H PRN Rx#:[id number] fentaNYL 10 mcg/mL Premix Drip 250 / 250 250 / 250 2,500 mcg In 250 ml @ 50 MCG/HR 5 mls/hr IV.SIG TITRATE PRN Rx #:[id number] Tube Feeding 660 / 660 Water Bolus Amount 240 / 240 Output: Urine 1000 / 1000 1000 / 1000 Chest Tube Drainage 0 / 0 #2 Right 0 / 0 #3 Right Upper 0 / 0 Other: # Incontinent Voids 1 Date of Last Bowel Movement 01/02/18 01/02/18 01/02/18 Result Diagrams: 01/02/18 05:32 01/02/18 20:55 Objective Remarks: GENERAL: 62-year-old middle-aged female, lying in bed, intubated, sedated, critically ill. HEENT: Normocephalic. Atraumatic. Pupils equal, round, reactive, conjugate. Positive left scleral edema. decreasing SQ air. Mucous membranes are moist NECK: Trachea is midline. CHEST: Equal chest rise. PRVC. 35% FiO2, PEEP 5. 2 right-sided chest tubes, persistent air leak +1 in chest tube labeled "#3". CARDIOVASCULAR: normal rate, regular rhythm. sinus. ABDOMEN: Soft, nontender, nondistended. No guarding. MUSCULOSKELETAL: Pulses 2+. gross anasarca. 2+ edema grossly. NEUROLOGICAL: RASS -3. Withdraws to pain x4. Does not follow commands. Assessment and Plan - Assessment and Plan Plan: Assessment: 62yF with HCAP pneumonia, bacteremia, and bleb rupture causing significant persistent air leak. remains with hypoxic respiratory failure. aggressive diuresis efforts. plan for VATS blebectomy and decortication, likely Friday 01/05. will obtain pre-op CT scan. remains very critically ill and off pathway. Neuro/Psych: Acute metabolic encephalopathy Possible seizure disorder Currently on fentany/ propofol drips for sedation/analgesia while intubated daily sedation vacation. goal RASS -2 She was started on anticonvulsants on her initial admission 11/23. Valproic acid 500 mg 3 times daily. Check level was 40 12/[address] 12/17- for acute disease EEG - Diffuse slowing consistent with a moderate diffuse encephalopathy. No epileptiform activity Acetaminophen 650 by tube every 6 hours as needed fever Continue quetiapine 25 mg daily/home medication Holding tizanidine 4 mg daily Respiratory: Acute hypoxic and hypercarbic respiratory failure- persistent Acute severe bilateral multifocal healthcare associated pneumonia Possible aspiration pneumonia Spontaneous right-sided tension pneumothorax Subcutaneous Emphysema Chest tube #1: 12/17- removed 12/26 Chest tube #2: 12/17 Chest tube #3: 12/19 CT surgery/Dr. Leah gerber. CT thorax overnight 12/12 revealed significant 3.7 cm moderate right pneumothorax without tension. Pneumopericardium and significant subcutaneous emphysema. Vent bundle PRVC mode, peep 5 Epoprostanol added 12/19, removed 12/29. Head of bed elevated Albuterol/ipratropium aerosols every 4 hours with albuterol aerosols every 2 hours as needed dyspnea Wean FiO2 for goal SPO2 greater than 90% AM CXR continue forced diuresis. repeat CT chest today. Cardiovascular: Septic shock- resolved Elevated troponin Type II NSTEMI secondary to demand ischemia Hyperlipidemia Holding lisinopril 30 mg daily/home medication. Resume pravastatin 80 mg daily when clinically indicated continue hydrocortisone wean continue lasix 40mg iv q6h. add concentrated albumin to maintain intravascular volume. Renal: Acute kidney injury (resolved) Secondary to shock, off pressors Frequent urine output monitoring Daily creatinine KVO IV fluid. Lasix to mobilize fluid, diamox 500 iv q8h x 3 doses -- Strict I/Os FEN/GI: Acute protein calorie malnutritionsevere Lactic acidosis- resolved Severe colitis Enterovirus colitis C. difficile colitis Hyperammonemia Acute hypophosphatemia Acute hypernatremia Currently on lactulose 30 cc twice daily Tube feeding with vital 1.5 goal 55 cc now. Metoclopramide 1 mg 3 times daily ICU electrolyte protocol Daily BMP, magnesium, phosphorus Lactulose/polythene glycol twice daily Holding dicyclomine 20 mg 3 times daily prealbumin 17 on 12/30. trend weekly. Heme/ID: C. difficile colitis Enterovirus colitis Septic shock Healthcare associated multifocal pneumonia Possible gram-positive cocci bacteremia Early empyema 1 unit PRBCs transfused on 12/28 for hemoglobin 6.9, recheck CBC and transfuse to keep hemoglobin above 8 g% Vancomycin p.o. with pharmacy dosing Continue Zosyn, micafungin Bronchoscopy 12/19 with gram-negative rods Pleural fluid 12/19 with gram-negative rods Pleural fluid 12/17 -g Karla albicans/glabrata Klebsiella, gram-positive rods 12/17 -sputum -Klebsiella 12/17 blood-strep viridians/coag negative staph Infectious disease consulted and following. Endocrine: Acute hypoglycemia- resolving. Sliding scale insulin Accu-Cheks every 6 hours to maintain euglycemia Prophylaxis: GI Prophylaxis Famotidine DVT Prophylaxis -- SCDs Subcu heparin Lines: 12/17 femoral triple-lumen catheter discontinued 12/23 12/17 right radial arterial line discontinued 12/21 12/17 right 28 [place] chest tube to -40 cm suction: removed 12/26 12/17 right 32 [place] chest tube to -40 cm suction 12/19 -right #32 [place] chest tube to -40 cm suction Critical care time 36 minutes excluding procedures
--- NOTE | 2018-01-03 14:47 | CT ---
EXAM DATE: 01/03/2018 2:39 PM EST AGE/SEX: 62 years / Female INDICATIONS: Respiratory distress. CLINICAL DATA: This is the patient's initial encounter. Patient reports that signs and symptoms have been present for 1 day and indicates a pain score of Nonresponsive. MEDICAL/SURGICAL HISTORY: Hypertension. Chest tube, right. RADIATION DOSE: 9.9 CTDI (mGy) COMPARISON: [facility] – [place], [place] CHEST W/O CONTRAST, 12/21/2017. . TECHNIQUE: Multiple contiguous axial images were obtained through the chest without contrast. Image s were obtained in suspended respiration using multiple row detector helical technique. Using automa sukhjinder exposure control and adjustment of the mA and/or kV according to patient size, radiation dose was kept as low as reasonably achievable to obtain optimal diagnostic quality images. DICOM format imag e data is available electronically for review and comparison. FINDINGS: Previously described bilobed cavitary lesion in right lower lobe is increased in size slightly and no w measures about 3.9 cm. A 4.8 cm cavitary lesion in the upper right lung has also developed in an ar ea of previous consolidation and early cavitation. There are 2 right-sided chest tubes. Previous right pneumothorax has nearly completely resolved. Pneu momediastinum and chest wall emphysema has improved. Patchy airspace disease and fibrotic changes rem ain in the lungs. Dense consolidation in the posterior aspect of both lungs is improved slightly sinc e December 21. Endotracheal tube in good position above the neli. NG enters stomach. Mild coronary artery calcifications. No acute findings in the upper abdomen. CONCLUSION: 1. Consolidation at both lung bases has improved. Cavitary lesions on the right are slightly larger as measured above. 2. Improving pneumomediastinum, pneumopericardium and subcutaneous emphysema. Near complete resoluti on of previous right pneumothorax. 2 right chest tubes present. Trace pleural fluid present. 3. Patchy airspace disease remains in the lungs probably with some fibrotic changes well. 4. Endotracheal tube and nasogastric tube in good position. Electronically signed by: Conner Quinonez MD 01/03/2018 2:46 PM EST
[2018-01-03] MEDS: Micafungin Inj 150 MG in Sodium Chlor 0.9% Inj 100 ML IV.SIG SCH (16:04)
[2018-01-03] MEDS: QUEtiapine 25 MG Tablet PO SCH (20:53)
[2018-01-04] MEDS: Propofol 1000 mg/100 ml Inj 1,000 MG/100 ML BOTTLE IV.CONT PRN ×3 (00:13→23:29)
[2018-01-04] MEDS: Insulin NovoLIN Regular Correctional Sugar Inj SQ SCH ×4 (00:14→19:59)
[2018-01-04] MEDS: Oral Hygiene Kit OROPHARYNG SCH ×4 (00:14→17:02)
[2018-01-04] MEDS: Heparin - SQ 10,000 UNITS/ML Vial SQ SCH ×3 (05:10→21:36)
[2018-01-04] MEDS: Piperacil/Tazo 4.5 GM Premix 4.5 GM/100 ML BAG IV.SIG SCH ×6 (05:10→21:37)
[2018-01-04 05:39] LABS: Hematocrit 21.5 % (35.0-46.0); Hemoglobin 7.3 gm/dL (11.6-15.3); Mean Corpuscular HGB Conc 33.9 % (32.0-36.0); Mean Corpuscular Hemoglobin 32.7 pg (27.0-34.0); Mean Corpuscular Volume 96.4 fL (80.0-100.0); Mean Platelet Volume 8.2 fL (7.0-11.0); Platelet Count 362 th/mm3 (150-450); Red Blood Count 2.23 mil/mm3 (4.00-5.30); Red Cell Distribution Width 14.8 % (11.6-17.2); White Blood Count 7.9 th/mm3 (4.0-11.0)
--- NOTE | 2018-01-04 05:46 | XR ---
EXAM DATE: 01/04/2018 5:22 AM EST AGE/SEX: 62 years / Female INDICATIONS: Shortness of breath, possible pulmonary disease. CLINICAL DATA: This is the patient's subsequent encounter. Patient reports that signs and symptoms h ave been present for 1 month and indicates a pain score of Nonresponsive. MEDICAL/SURGICAL HISTORY: Hypertension. Chest tube, right. COMPARISON: [facility], CHEST 1V SINGLE AP, 12/31/2017. . FINDINGS: Single AP view of the chest. Endotracheal tube, nasogastric tube, and 2 right-sided chest tubes remai n in place. Subcutaneous emphysema is again seen bilaterally. No evidence of pneumothorax. Lung volum es have decreased. No significant change in bilateral pulmonary opacity allowing for differences in l jim volumes. CONCLUSION: 1. Decreased lung volumes. Persistent bilateral pulmonary opacity. 2. Right-sided chest tubes. Bilateral subcutaneous emphysema. No evidence of pneumothorax. Electronically signed by: Jerry Fonseca MD 01/04/2018 5:45 AM EST
[2018-01-04 06:20] LABS: Calcium 7.9 mg/dL (8.5-10.1); Carbon Dioxide 33.6 meq/L (21.0-32.0); Magnesium 1.9 mg/dL (1.5-2.5); Phosphorus 5.7 mg/dL (2.5-4.9)
[2018-01-04 06:27] LABS: Potassium 2.6 meq/L (3.5-5.1)
[2018-01-04] MEDS: Potassium Chlor 20 mEq Premix 20 MEQ/100 ML PIGGYBACK IV.SIG PRN ×2 (06:49→09:00)
[2018-01-04] MEDS ORDERED: Potassium Chloride Inj 20 MEQ/10 ML Vial IV.SIG ONE (07:00)
--- NOTE | 2018-01-04 08:00 | P.PNCC ---
Subjective Subjective Remarks/Hospital Course: This is a 62yF who was originally admitted on 11/23 with a diagnosis of colitis, found to have enterovirus. discharged on 12/11 at that time on PO vancomycin, but came back on 12/13 with altered mental status and hypoglycemia, again discharged on 12/15. She was mildly fatigued on 12/16 according to her and asked to wait another day before traveling back to her home in [place]. This morning, she was unarousable and her called 911. She was intubated upon arrival to the emergency department for agonal respirations. CXR demonstrates bilateral multifocal pneumonia. She is febrile, hypotensive. CVL placed in the ER and vasopressors initiated after 2L bolus crystalloid. CT chest/abd/pelvis demonstrates right pneumothorax, densely consolidated right lower lobe, bilateral pulmonary infiltrates, evidence of ongoing colitis. Patient continue to be unstable. Immediately after identifying ptx on CT scan, I emergently placed right chest tube with some improvements in hemodynamics, but ongoing distributive shock persists. I placed arterial line. No additional information available from the patient, ROS unobtainable. In discussion with the , she has not had any new complaints in the 48h she was home, and other than mild fatigue last night, no new complaints. She was able to walk to the bathroom without assistance yesterday. 12/18: shock remains. now on levophed, vasopressin, phenylephrine. second chest tube placed overnight for worsening SQ air. acidosis remains and is severe. 12/19: Afebrile. Remains on vasopressin drip only. On stress dose hydrocortisone. Evaluated by CT surgery. Not a candidate for intervention at the present time. Chest tube continues to leak. Epoprostenol added today 12/20: Afebrile. FiO2 has decreased and is currently 70%. Currently replacing potassium, phosphorus and magnesium. Recheck later this afternoon. Less chest tube leak today down to 1 chamber. 12/21: Overnight, worsening subcutaneous emphysema. A third chest tube placed by overnight equipment processor after discussion with cardiothoracic surgery. Currently hemodynamically stable. Replacing phosphorus today. To be evaluated by CT surgery today. 12/22: Remains sedated, orally intubated on mechanical ventilation. Persistent air leak and chest tube noted. 12/23: Remains sedated, orally intubated on mechanical ventilation. Air leak persists though slightly improved. PEEP at +5 FiO2 55%, inhaled Flolan continues. Central line replaced with right IJ triple-lumen catheter. 12/24: Remains sedated, orally intubated on mechanical ventilation. 1+ air leak from chest tube 3 noted. PEEP +5, FiO2 60%, inhaled Flolan continues. Decreasing subcutaneous emphysema noted. 12/25: Remains sedated, orally improved on mechanical ventilation. 1+ for leak from chest tube 2. PEEP +5, FiO2 50%. Starting to titrate inhaled Flolan down today. Initiating Lasix to mobilize fluid. 12/26: remains intubated. air leak continues from chest tube #3. drainage out of #1 and #2 are very serous. #1 was removed by myself today. all chest tube dressings changed by me today. repeat CXR pending. very volume overloaded. starting to diurese. off vasopressors. off pathway: still high fio2 requirements. 12/27: good diuresis overnight. very hypokalemic today and aggressively replacing. CXR unchanged. air leak unchanged. long discussion over long-term and short-term prognosis and plan of care with entire family today. all questions answered. 12/28: Continues to diurese. Remains on mechanical ventilation. Positive air leak in chest tube 3. 1 unit PRBCs transfused earlier for hemoglobin 6.9. 12/29: Remains on mechanical ventilation. Increasing subcutaneous emphysema noted. Air leak stopped and chest tube #2 and 3 currently. Flolan being titrated down. Chest x-ray shows appropriate positioning of 2 chest tubes with the more medial small right pneumothorax with significant subcutaneous emphysema bilaterally. Patient remains off pressors and is being diuresed to mobilize fluid. 12/30: volume removal continues. Cr still at baseline. fio2 down to 40% and off inhaled Flolan. discussed with Dr. Lynn: will need to wait at least until next week for VATS. Will need trach going forward: discussed with family and they are agreeable. Dr. Lynn asked that both chest tubes remain in place. air leak persists. remains intubated and sedated. 12/31: Sedated, orally intubated on mechanical ventilation. On 40% FiO2 PEEP + 5. Positive air leak in chest tube [address] surgery planning for VATS next week, will need tracheostomy coordinated as well. 01/01: Remains sedated, orally intubated on mechanical ventilation. PEEP +5, FiO2 35%. Being diuresed. 01/02: Sedated, orally intubated on mechanical ventilation. PEEP +5, FiO2 35%. Intermittent air leak in chest tube 3. Being diuresed 01/03: persistent air leak. hypoxia improving. discussed case with Dr. Lynn- he would like pre-operative CT chest for surgical planning. we also discussed timing of tracheostomy: it would be easier surgically to have ett in place to place double-lumen ett, so he would prefer to keep ett until after operation, and then proceed with tracheostomy. tentatively VATS planned for Friday 01/05. SUBJECTIVE: 01/04: No events over the night. Patient remains sedated and intubated, sedation achieved with fentanyl and propofol. T-max of 100.2 over the last 24 hours. I/O 3770/3130. Chest tubes remain on suction. Review of systems is unobtainable since patient is intubated Objective Vital Signs / I&O: Vital Signs 01/03/18 07:58 01/03/18 08:00 01/03/18 08:30 Temperature 99.6 F Pulse Rate 116 H 113 H 109 H Respiratory Rate 18 20 17 Blood Pressure 98/60 L 96/55 L Pulse Oximetry 99 100 100 01/03/18 09:00 01/03/18 09:30 01/03/18 10:00 Temperature Pulse Rate 107 H 118 H 113 H Respiratory Rate 21 25 H 21 Blood Pressure 88/61 L 99/65 L 96/53 L Pulse Oximetry 100 100 100 01/03/18 10:30 01/03/18 11:00 01/03/18 11:49 Temperature Pulse Rate 104 H 107 H 117 H Respiratory Rate 18 16 19 Blood Pressure 88/50 L 86/53 L Pulse Oximetry 99 98 98 01/03/18 11:57 01/03/18 12:00 01/03/18 12:30 Temperature 99.9 F H Pulse Rate 124 H 124 H 120 H Respiratory Rate 27 H 23 19 Blood Pressure 127/73 120/65 107/62 Pulse Oximetry 95 96 97 01/03/18 13:00 01/03/18 13:31 01/03/18 14:00 Temperature Pulse Rate 119 H 121 H 120 H Respiratory Rate 18 22 22 Blood Pressure 105/63 136/74 124/78 Pulse Oximetry 97 97 97 01/03/18 14:38 01/03/18 15:00 01/03/18 15:01 Temperature Pulse Rate 110 H 115 H 113 H Respiratory Rate 18 28 H 25 H Blood Pressure 92/50 L 103/64 Pulse Oximetry 98 95 97 01/03/18 15:30 01/03/18 15:53 01/03/18 16:00 Temperature 98.3 F Pulse Rate 116 H 102 H 104 H Respiratory Rate 25 H 16 22 Blood Pressure 129/75 118/70 Pulse Oximetry 96 100 99 01/03/18 16:30 01/03/18 18:00 01/03/18 20:00 Temperature 100.2 F H Pulse Rate 118 H 110 H 108 H Respiratory Rate 25 H 16 Blood Pressure 137/77 126/69 Pulse Oximetry 98 98 01/03/18 20:35 01/03/18 22:00 01/03/18 23:00 Temperature Pulse Rate 104 H 115 H 115 H Respiratory Rate 18 18 Blood Pressure Pulse Oximetry 99 01/03/18 23:13 01/04/18 00:00 01/04/18 02:00 Temperature 99.5 F Pulse Rate 109 H 113 H Respiratory Rate 18 20 Blood Pressure 111/63 Pulse Oximetry 96 97 01/04/18 03:50 01/04/18 04:00 01/04/18 06:00 Temperature 99.0 F Pulse Rate 110 H 110 H 114 H Respiratory Rate 21 25 H Blood Pressure 107/60 Pulse Oximetry 97 97 Intake & Output 01/03/18 01/04/18 01/04/18 18:59 06:59 18:59 Intake Total 2270 / 2270 1508 / 1508 Output Total 1930 / 1930 1200 / 1200 Balance 340 / 340 308 / 308 Weight 73.9 kg Intake: IV 850 / 850 650 / 650 Diprivan 1000 mg/100 ml Inj 1, 300 / 300 200 / 200 000 mg In 100 ml @ 5 MCG/KG/MIN 2.904 mls/hr IV.CONT TITRATE PRN Rx#:[id number] Mycamine Inj 150 MG In NS Inj 100 / 100 100 ML @ 100 mls/hr IV.SIG Q24H [place] Rx#:[id number] Zosyn 4.5 GM Premix 4.5 gm In 200 / 200 200 / 200 100 ml @ 200 mls/hr IV.SIG Q6H [place] Rx#:[id number] fentaNYL 10 mcg/mL Premix Drip 250 / 250 250 / 250 2,500 mcg In 250 ml @ 50 MCG/HR 5 mls/hr IV.SIG TITRATE PRN Rx #:[id number] Tube Feeding 1180 / 1180 658 / 658 Water Bolus Amount 240 / 240 200 / 200 Output: Urine 1800 / 1800 1200 / 1200 Chest Tube Drainage 130 / 130 0 / 0 #2 Right 70 / 70 0 / 0 #3 Right Upper 60 / 60 0 / 0 Other: Date of Last Bowel Movement 01/02/18 01/02/18 Result Diagrams: 01/04/18 05:05 01/04/18 05:05 Imaging: Head CT 12/17/17 08:02 CONCLUSION: 1. 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 2. Otherwise negative. . Abdomen/Pelvis CT 12/17/17 10:45 CONCLUSION: 1. Moderate diffuse colonic wall thickening exaggerated by lack of colonic distention. This may be due to low-protein state/edema. However, differential considerations include infectious and inflammatory colitis. 2. Moderate-sized right hydropneumothorax with airspace disease in the lung bases as described on chest CT. 3. Additional ancillary findings, as above. Chest CT 01/03/18 11:56 CONCLUSION: 1. Consolidation at both lung bases has improved. Cavitary lesions on the right are slightly larger as measured above. 2. Improving pneumomediastinum, pneumopericardium and subcutaneous emphysema. Near complete resolution of previous right pneumothorax. 2 right chest tubes present. Trace pleural fluid present. 3. Patchy airspace disease remains in the lungs probably with some fibrotic changes well. 4. Endotracheal tube and nasogastric tube in good position. Chest X-Ray 01/04/18 05:00 CONCLUSION: 1. Decreased lung volumes. Persistent bilateral pulmonary opacity. 2. Right-sided chest tubes. Bilateral subcutaneous emphysema. No evidence of pneumothorax. Objective Remarks: GENERAL: Middle-aged lady, intubated and sedated, ill-appearing HEENT: Pupils are equal and reactive, sclerae are anicteric, orally intubated, + NGT NECK: Supple, no rigidity, no neck vein distention, no carotid bruit CHEST: Coarse breath sounds bilateral, no wheezes, + subcutaneous emphysema, 2 right-sided chest tubes on suction, no air leak noted CARDIOVASCULAR: Regular heart sounds, no murmurs appreciated ABDOMEN: Soft, nontender, nondistended, bowel sounds present, no hepatomegaly or splenomegaly appreciated MUSCULOSKELETAL: Extremities are warm and well perfused, peripheral pulses are present, 2+ pitting edema NEUROLOGICAL: Sedated and intubated, does not open eyes to voice stimuli and does not follow commands, withdraws to pain. Pupils are equal and reactive, no gaze deviation Assessment and Plan - Assessment and Plan Plan: Assessment: 62yF with HCAP pneumonia, bacteremia, and bleb rupture causing significant persistent air leak. remains with hypoxic respiratory failure. aggressive diuresis efforts. Plan for VATS blebectomy and decortication, likely Friday 01/05. will obtain pre-op CT scan. remains very critically ill and off pathway. Neuro/Psych: Acute metabolic encephalopathy Possible seizure disorder Currently on fentany/ propofol drips for sedation/analgesia while intubated Daily sedation vacation. Goal RASS -2 She was started on anticonvulsants on her initial admission 11/23. Valproic acid 500 mg 3 times daily. Check level was 40 12/[address] 12/17- for acute disease EEG - Diffuse slowing consistent with a moderate diffuse encephalopathy. No epileptiform activity Acetaminophen 650 by tube every 6 hours as needed fever Continue quetiapine 25 mg daily/home medication Holding tizanidine 4 mg daily Respiratory: Acute hypoxic and hypercarbic respiratory failure- persistent Acute severe bilateral multifocal healthcare associated pneumonia Possible aspiration pneumonia Spontaneous right-sided tension pneumothorax Subcutaneous Emphysema Chest tube #1: 12/17- removed 12/26 Chest tube #2: 12/17 Chest tube #3: 12/19 CT surgery/Dr. Lynn following. CT thorax overnight 12/12 revealed significant 3.7 cm moderate right pneumothorax without tension. Pneumopericardium and significant subcutaneous emphysema. Vent bundle and bronchodilators PRVC mode 450/14/35% PEEP of 5 Patient is synchronized with the ventilator, no auto PEEP, Pip 27 Epoprostanol added 12/19, removed 12/29. Albuterol/ipratropium aerosols every 4 hours with albuterol aerosols every 2 hours as needed dyspnea Wean FiO2 for goal SPO2 greater than 90% Daily CXR We will continue diuresis after electrolyte replacement Cardiovascular: Septic shock- resolved Elevated troponin Type II NSTEMI secondary to demand ischemia Hyperlipidemia Holding lisinopril 30 mg daily/home medication. Resume pravastatin 80 mg daily when clinically indicated Continue hydrocortisone wean Continue albumin and Lasix 40mg iv q6h but hold until electrolyte repletion Renal: Acute kidney injury (resolved) Secondary to shock, off pressors Frequent urine output monitoring Daily creatinine KVO IV fluid. Lasix to mobilize fluid, diamox 500 iv q8h x 3 doses Strict I/Os FEN/GI: Acute protein calorie malnutritionsevere Lactic acidosis- resolved Severe colitis Enterovirus colitis C. difficile colitis Hyperammonemia Hypokalemia Acute hypernatremia -resolved Currently on lactulose 30 cc twice daily Tube feeding with vital 1.5 goal 55 cc now. Metoclopramide 1 mg 3 times daily ICU electrolyte protocol Daily BMP, magnesium, phosphorus Lactulose/polythene glycol twice daily Holding dicyclomine 20 mg 3 times daily Prealbumin 17 on 12/30. trend weekly Replete potassium and repeat level at 2 PM Heme/ID: C. difficile colitis Enterovirus colitis Septic shock Healthcare associated multifocal pneumonia Possible gram-positive cocci bacteremia Early empyema 1 unit PRBCs transfused on 12/28 for hemoglobin 6.9, recheck CBC and transfuse to keep hemoglobin above 8 g% Vancomycin p.o. with pharmacy dosing Continue Zosyn, micafungin Bronchoscopy 12/19 with gram-negative rods Pleural fluid 12/19 with gram-negative rods Pleural fluid 12/17 -g Karla albicans/glabrata Klebsiella, gram-positive rods 12/17 -sputum -Klebsiella 12/17 blood-strep viridians/coag negative staph Infectious disease consulted and following. Endocrine: Acute hypoglycemia- resolving. Sliding scale insulin Accu-Cheks every 6 hours to maintain euglycemia Prophylaxis: GI Prophylaxis Famotidine DVT Prophylaxis -- SCDs Subcu heparin Lines: 12/17 femoral triple-lumen catheter discontinued 12/23 12/17 right radial arterial line discontinued 12/21 12/17 right 28 [place]i chest tube to -40 cm suction: removed 12/26 12/17 right 32 [place] chest tube to -40 cm suction 12/19 -right #32 [place]i chest tube to -40 cm suction Level 3 follow-up
[2018-01-04] MEDS: fentaNYL 10 mcg/mL Premix Drip 2,500 MCG/250 ML BAG IV.SIG PRN ×2 (08:30→17:57)
[2018-01-04] MEDS: Potassium Chloride 25 MEQ Effervescent Tablet NG/OG SCH (10:20)
[2018-01-04] MEDS: Senna/Docusate Sodium 8.6/50 MG Tablet PO SCH ×2 (10:21→21:37)
[2018-01-04] MEDS: Chlorhexidine 0.12% Oral Kit 15 ML UDC OROPHARYNG SCH ×2 (10:22→19:59)
[2018-01-04] MEDS: Sodium Chloride 0.9% 2 ML Flush BID IV.FLUSH SCH ×2 (10:23→21:25)
[2018-01-04] MEDS: Polyethylene Glycol 3350 17 GM Packet PO SCH ×2 (10:23→21:25)
[2018-01-04] MEDS: Carboxymethylcellulose 0.5% Opth Drops 15 ML Bottle EACH EYE SCH ×2 (10:26→21:25)
[2018-01-04] MEDS: Famotidine 20 MG Tablet PO SCH ×2 (10:26→21:49)
--- NOTE | 2018-01-04 10:52 | P.DIET ---
Nutritional Evaluation Type of nutrition evaluation: follow-up Nutrition consult regarding: Tube Feeding Objective - Diagnosis Septic Shock, Resp Failure, hypoglycemia - Objective % IBW: 123 Body Weight Used for Calculations: Actual (72.7 kg ) Energy Needs - Lower Range (kCal/kg): 25 Energy Needs - Upper Range (kCal/kg): 30 Lower Limit kCal/kg (kCals): 1,818 Upper Limit kCal/kg (kCals): 2,181 Lower Limit Protein Factor (Grams per Kg): 1.1 Upper Limit Protein Factor (Grams per Kg): 1.4 Lower Protein Needs (Protein): 80 Upper Protein Needs (Protein): 102 Dietitian Reviewed in Medical Record: Curent medications, Intake & Output, Labs , Medical history, Tube feeding Diet Order: NPO Wound Care Note: skin midline sacrum: pressure injury Objective Comments: PM includes: HTN, Chronic Pain, HLD, MDRO Labs include: K+ 2.6, BUN 27, POC glucose 122, Ca+ 7.9 Mes include: Pepcid, Novolog, Lactulose, Flagyl, Pravachol, Seroquel +BM Assessment Assessment: Pt currently intubated on mech vent, sedated w/ propofol and fentanyl. Recommend to continue TF'ing w/Vital 1.5 goal rate @ 55ml/hr, pt tolerating TF well. Good UOP and +LBM 01/03. Labs reviewed. Wt changes noted. Recommendations: 1. Recommend to continue TF'ing w/Vital 1.5 goal rate 55ml/hr Dietitian to Monitor: Lab values, Electrolytes, Glucose level, Intake & Output, Tube feeding tolerance, Weight change, Medical course
--- NOTE | 2018-01-04 14:19 | P.PNID ---
Subjective Remarks: ID Xcover for now growing Kleb pneumo agai in sputum S zosyn now fever airleak is positional improved on vent setting FiO2 35 % PEEP 5 repeat c.diff negative Not on pressors. Antibiotics: zosyn vanco PO micafungin Lines: Lines ok Past Medical History: reviewed Allergies/Adverse Reactions: Allergies No Known Allergies Allergy (Verified 12/13/17 08:04) Objective Vital Signs 01/03/18 14:38 01/03/18 15:00 01/03/18 15:01 Temperature Pulse Rate 110 H 115 H 113 H Respiratory Rate 18 28 H 25 H Blood Pressure 92/50 L 103/64 Pulse Oximetry 98 95 97 01/03/18 15:30 01/03/18 15:53 01/03/18 16:00 Temperature 98.3 F Pulse Rate 116 H 102 H 104 H Respiratory Rate 25 H 16 22 Blood Pressure 129/75 118/70 Pulse Oximetry 96 100 99 01/03/18 16:30 01/03/18 18:00 01/03/18 20:00 Temperature 100.2 F H Pulse Rate 118 H 110 H 108 H Respiratory Rate 25 H 16 Blood Pressure 137/77 126/69 Pulse Oximetry 98 98 01/03/18 20:35 01/03/18 22:00 01/03/18 23:00 Temperature Pulse Rate 104 H 115 H 115 H Respiratory Rate 18 18 Blood Pressure Pulse Oximetry 99 01/03/18 23:13 01/04/18 00:00 01/04/18 02:00 Temperature 99.5 F Pulse Rate 109 H 113 H Respiratory Rate 18 20 Blood Pressure 111/63 Pulse Oximetry 96 97 01/04/18 03:50 01/04/18 04:00 01/04/18 06:00 Temperature 99.0 F Pulse Rate 110 H 110 H 114 H Respiratory Rate 21 25 H Blood Pressure 107/60 Pulse Oximetry 97 97 01/04/18 08:00 01/04/18 09:20 01/04/18 10:00 Temperature 99.2 F Pulse Rate 110 H 105 H 106 H Respiratory Rate 17 17 Blood Pressure 110/62 Pulse Oximetry 97 97 01/04/18 11:00 01/04/18 12:00 Temperature 99.1 F Pulse Rate 109 H 114 H Respiratory Rate 22 25 H Blood Pressure 116/73 Pulse Oximetry 99 Intake & Output 01/03/18 01/04/18 01/04/18 18:59 06:59 18:59 Intake Total 2270 / 2270 1508 / 1508 350 / 350 Output Total 1930 / 1930 1200 / 1200 Balance 340 / 340 308 / 308 350 / 350 Weight 73.9 kg Intake: IV 850 / 850 650 / 650 350 / 350 Diprivan 1000 mg/100 ml Inj 1, 300 / 300 200 / 200 000 mg In 100 ml @ 5 MCG/KG/MIN 2.904 mls/hr IV.CONT TITRATE PRN Rx#:[id number] Mycamine Inj 150 MG In NS Inj 100 / 100 100 ML @ 100 mls/hr IV.SIG Q24H [facility] Rx#:[id number] Zosyn 4.5 GM Premix 4.5 gm In 200 / 200 200 / 200 100 ml @ 200 mls/hr IV.SIG Q6H [facility] Rx#:[id number] KCl 20 mEq Premix Inj 20 meq In 100 / 100 100 ml @ 50 mls/hr IV.SIG Q2H PRN Rx#:[id number] fentaNYL 10 mcg/mL Premix Drip 250 / 250 250 / 250 250 / 250 2,500 mcg In 250 ml @ 50 MCG/HR 5 mls/hr IV.SIG TITRATE PRN Rx #:[id number] Tube Feeding 1180 / 1180 658 / 658 Water Bolus Amount 240 / 240 200 / 200 Output: Urine 1800 / 1800 1200 / 1200 Chest Tube Drainage 130 / 130 0 / 0 #2 Right 70 / 70 0 / 0 #3 Right Upper 60 / 60 0 / 0 Other: Date of Last Bowel Movement 01/02/18 01/02/18 01/04/18 01/02/18 17:28 Sputum - Endotracheal Gram Stain - Final 01/02/18 17:28 Sputum - Endotracheal Sputum Culture - Final Klebsiella pneumoniae 01/01/18 22:07 Blood - Peripheral Aerobic Blood Culture - Preliminary No growth in 3 days 01/01/18 22:07 Blood - Peripheral Anaerobic Blood Culture - Preliminary No growth in 3 days 01/01/18 19:45 Blood - Peripheral Aerobic Blood Culture - Preliminary No growth in 3 days 01/01/18 19:45 Blood - Peripheral Anaerobic Blood Culture - Preliminary No growth in 3 days 12/19/17 11:30 Bronchial Washings - Bronchial Acid Fast Bacilli Smear - Final No acid fast bacilli seen 12/19/17 11:30 Bronchial Washings - Bronchial Mycobacterial Culture - Preliminary No growth in 2 weeks Lab - Hematology Results 01/04/18 05:05 WBC 7.9 RBC 2.23 L Hgb 7.3 L Hct 21.5 L MCV 96.4 MCH 32.7 MCHC 33.9 RDW 14.8 Plt Count 362 MPV 8.2 Lab - Chemistry Results 01/02/18 01/02/18 01/02/18 17:40 20:55 23:36 Sodium Potassium 3.3 L Chloride Carbon Dioxide Anion Gap BUN Creatinine Estimated GFR POC Glucose 126 H 130 H Random Glucose Calcium Phosphorus Magnesium 01/03/18 01/03/18 01/03/18 06:07 11:57 17:08 Sodium Potassium Chloride Carbon Dioxide Anion Gap BUN Creatinine Estimated GFR POC Glucose 117 H 111 H 114 H Random Glucose Calcium Phosphorus Magnesium 01/03/18 01/04/18 01/04/18 23:31 05:05 10:33 Sodium 140 Potassium 2.6 L* Chloride 95 L Carbon Dioxide 33.6 H Anion Gap 11 BUN 27 H Creatinine 0.70 Estimated GFR 84 L POC Glucose 122 H 112 H Random Glucose 113 H Calcium 7.9 L Phosphorus 5.7 H D Magnesium 1.9 01/04/18 13:14 Sodium Potassium 3.9 D Chloride Carbon Dioxide Anion Gap BUN Creatinine Estimated GFR POC Glucose Random Glucose Calcium Phosphorus Magnesium Imaging: ITS Impressions Head CT 12/17/17 08:02 CONCLUSION: 1. 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 2. Otherwise negative. . Abdomen/Pelvis CT 12/17/17 10:45 CONCLUSION: 1. Moderate diffuse colonic wall thickening exaggerated by lack of colonic distention. This may be due to low-protein state/edema. However, differential considerations include infectious and inflammatory colitis. 2. Moderate-sized right hydropneumothorax with airspace disease in the lung bases as described on chest CT. 3. Additional ancillary findings, as above. Chest CT 01/03/18 11:56 CONCLUSION: 1. Consolidation at both lung bases has improved. Cavitary lesions on the right are slightly larger as measured above. 2. Improving pneumomediastinum, pneumopericardium and subcutaneous emphysema. Near complete resolution of previous right pneumothorax. 2 right chest tubes present. Trace pleural fluid present. 3. Patchy airspace disease remains in the lungs probably with some fibrotic changes well. 4. Endotracheal tube and nasogastric tube in good position. Chest X-Ray 01/04/18 05:00 CONCLUSION: 1. Decreased lung volumes. Persistent bilateral pulmonary opacity. 2. Right-sided chest tubes. Bilateral subcutaneous emphysema. No evidence of pneumothorax. Physical Exam: GENERAL: sedated int'd on mech vent'n SKIN: Warm and dry. No rash markedly improved SQ emphysema EYES: No scleral icterus. No injection or drainage. ENT: No nasal bleeding or discharge. Mucous membranes pink and moist. NECK: Trachea midline. No JVD. CARDIOVASCULAR: Regular rate and rhythm RESPIRATORY: No accessory muscle use. +extensive rhonchi to auscultation. CT x 2 R side: no leak noted GASTROINTESTINAL: Abdomen soft, non-tender, distended. Hepatic and splenic margins not palpable. MUSCULOSKELETAL: Extremities without clubbing, cyanosis, less edema. No obvious deformities. NEUROLOGICAL: sedated, unresponsive PSYCHIATRIC: unable to assess Assessment and Plan - Plan Sepsis (fever, leucocytosis) ongoing possible new. Coag neg staph likely pseudobacteremia Strep viridans: ? related to empyema torie Strep. 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 Lactobacillus resistant to Meropenem. Cannot use Clindamycin due to Cdiff. cont micafungin for both grace glab and albicans. cont oral vanco for c.diff dw dw RN
--- NOTE | 2018-01-04 16:00 | P.PNCV ---
- Note Subjective/Hospital Course: pt now has 3 right sided chest tube #3 has 2-3 = air leak , #2 +1 all to 40cm suction pt now off pressors remains sedated on vent 55% fio2 +8 peep may need to re-eval for repeat ct scan in am pt will not tolerate one lung ventilation at this during any surgery will continue to monitor 12/23 pt now on 75% Fi02 peep down to 5 , no on flolan sub q emphysema with some improvement chest x 3 apical #3 +2 continuous air leak mid #2 + 1 air leak lower #1 no air leak all to 40 cm suction will monitor 12/26 Hemodynamically and clinically better One chest tube removed. 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 air leak at site all chest tube site area cleansed with chlorhexidine, iodoform gauze to old chest tube site vaseline gauze to other chest tubes / dry dressing applied / also # 2 chest tube had kink placed 2 tongue depressors along side of tube top prevent kinking and taped to chest pt still had +1-2 air leak in #3 chest tube 01/04 ct chest reviewed stable / improved, no air leak in chest tubes at present continue to monitor / no surgery indicated at present with: Improving pneumomediastinum, pneumopericardium and subcutaneous emphysema. Near complete resolution of previous right pneumothorax. Objective: Vital Signs - 24 hr 01/03/18 16:00 01/03/18 16:30 01/03/18 18:00 Temperature 98.3 F Pulse Rate 104 H 118 H 110 H Respiratory Rate 22 25 H Blood Pressure 118/70 137/77 Pulse Oximetry 99 98 01/03/18 20:00 01/03/18 20:35 01/03/18 22:00 Temperature 100.2 F H Pulse Rate 108 H 104 H 115 H Respiratory Rate 16 18 Blood Pressure 126/69 Pulse Oximetry 98 99 01/03/18 23:00 01/03/18 23:13 01/04/18 00:00 Temperature 99.5 F Pulse Rate 115 H 109 H Respiratory Rate 18 18 20 Blood Pressure 111/63 Pulse Oximetry 96 97 01/04/18 02:00 01/04/18 03:50 01/04/18 04:00 Temperature 99.0 F Pulse Rate 113 H 110 H 110 H Respiratory Rate 21 25 H Blood Pressure 107/60 Pulse Oximetry 97 97 01/04/18 06:00 01/04/18 08:00 01/04/18 09:20 Temperature 99.2 F Pulse Rate 114 H 110 H 105 H Respiratory Rate 17 17 Blood Pressure 110/62 Pulse Oximetry 97 97 01/04/18 10:00 01/04/18 11:00 01/04/18 12:00 Temperature 99.1 F Pulse Rate 106 H 109 H 114 H Respiratory Rate 22 25 H Blood Pressure 116/73 Pulse Oximetry 99 01/04/18 14:00 01/04/18 15:00 01/04/18 15:40 Temperature Pulse Rate 111 H 112 H Respiratory Rate 17 17 Blood Pressure Pulse Oximetry 100 GENERAL: sedated on vent SKIN: Warm and dry. HEAD: Normocephalic. EYES: No scleral icterus. No injection or drainage. NECK: Supple, trachea midline. No JVD or lymphadenopathy. CARDIOVASCULAR: Regular rate and rhythm without murmurs, gallops, or rubs. RESPIRATORY: coarse bilateral breath sounds chest x 2 to 40cm suction, no air leak noted GASTROINTESTINAL: Abdomen soft, non-tender, nondistended. MUSCULOSKELETAL: No cyanosis, or edema. BACK: Nontender without obvious deformity. No CVA tenderness. Labs: Laboratory Results - last 12 hr 01/04/18 01/04/18 01/04/18 05:05 05:05 10:33 WBC 7.9 RBC 2.23 L Hgb 7.3 L Hct 21.5 L MCV 96.4 MCH 32.7 MCHC 33.9 RDW 14.8 Plt Count 362 MPV 8.2 Sodium 140 Potassium 2.6 L* Chloride 95 L Carbon Dioxide 33.6 H Anion Gap 11 BUN 27 H Creatinine 0.70 Estimated GFR 84 L POC Glucose 112 H Random Glucose 113 H Calcium 7.9 L Phosphorus 5.7 H D Magnesium 1.9 01/04/18 13:14 WBC RBC Hgb Hct MCV MCH MCHC RDW Plt Count MPV Sodium Potassium 3.9 D Chloride Carbon Dioxide Anion Gap BUN Creatinine Estimated GFR POC Glucose Random Glucose Calcium Phosphorus Magnesium Result Diagrams: 01/04/18 05:05 01/04/18 13:14 - Plan (1) Respiratory failure Plan: on vent 35% no surgery at present with resolved air leak and improved CT chest (2) Pneumonia (1) Respiratory failure Qualifiers: Chronicity: acute Respiratory failure complication: hypoxia and hypercapnia Qualified Code(s): J96.01 - Acute respiratory failure with hypoxia; J96.02 - Acute respiratory failure with hypercapnia (2) Pneumonia Qualifiers: Pneumonia type: due to unspecified organism Laterality: bilateral Lung location: unspecified part of lung Qualified Code(s): J18.9 - Pneumonia, unspecified organism
[2018-01-04] MEDS: Collagenase Oint 30 GM Tube TOPICAL SCH (16:58)
[2018-01-04] MEDS: Micafungin Inj 150 MG in Sodium Chlor 0.9% Inj 100 ML IV.SIG SCH (17:03)
[2018-01-04] MEDS: QUEtiapine 25 MG Tablet PO SCH (21:37)
[2018-01-05] MEDS: Insulin NovoLIN Regular Correctional Sugar Inj SQ SCH ×5 (03:25→23:48)
[2018-01-05] MEDS: Oral Hygiene Kit OROPHARYNG SCH ×5 (03:25→23:48)
[2018-01-05] MEDS: Piperacil/Tazo 4.5 GM Premix 4.5 GM/100 ML BAG IV.SIG SCH ×4 (04:28→22:00)
[2018-01-05] MEDS: Propofol 1000 mg/100 ml Inj 1,000 MG/100 ML BOTTLE IV.CONT PRN ×3 (05:30→23:45)
[2018-01-05 05:46] LABS: Hematocrit 22.5 % (35.0-46.0); Hemoglobin 7.8 gm/dL (11.6-15.3); Mean Corpuscular HGB Conc 34.4 % (32.0-36.0); Mean Corpuscular Hemoglobin 33.2 pg (27.0-34.0); Mean Corpuscular Volume 96.3 fL (80.0-100.0); Platelet Count 435 th/mm3 (150-450); Red Blood Count 2.34 mil/mm3 (4.00-5.30); Red Cell Distribution Width 15.1 % (11.6-17.2)
[2018-01-05 06:06] LABS: Calcium 8.6 mg/dL (8.5-10.1); Carbon Dioxide 32.9 meq/L (21.0-32.0); Magnesium 2.1 mg/dL (1.5-2.5); Potassium 3.3 meq/L (3.5-5.1)
[2018-01-05] MEDS: fentaNYL 10 mcg/mL Premix Drip 2,500 MCG/250 ML BAG IV.SIG PRN (07:04)
[2018-01-05] MEDS: Heparin - SQ 10,000 UNITS/ML Vial SQ SCH ×3 (08:26→22:01)
[2018-01-05] MEDS: Potassium Chloride 25 MEQ Effervescent Tablet NG/OG SCH (08:27)
[2018-01-05] MEDS: Chlorhexidine 0.12% Oral Kit 15 ML UDC OROPHARYNG SCH ×2 (08:27→20:41)
[2018-01-05] MEDS: Sodium Chloride 0.9% 2 ML Flush BID IV.FLUSH SCH ×2 (08:28→20:42)
[2018-01-05] MEDS: Polyethylene Glycol 3350 17 GM Packet PO SCH ×2 (08:28→20:41)
[2018-01-05] MEDS: Famotidine 20 MG Tablet PO SCH ×2 (08:28→20:42)
[2018-01-05] MEDS: Carboxymethylcellulose 0.5% Opth Drops 15 ML Bottle EACH EYE SCH ×2 (08:29→20:42)
[2018-01-05] MEDS: Collagenase Oint 30 GM Tube TOPICAL SCH (08:29)
[2018-01-05] MEDS: Senna/Docusate Sodium 8.6/50 MG Tablet PO SCH ×2 (08:29→20:42)
--- NOTE | 2018-01-05 13:20 | P.PNCC ---
Subjective Subjective Remarks/Hospital Course: This is a 62yF who was originally admitted on 11/23 with a diagnosis of colitis, found to have enterovirus. discharged on 12/11 at that time on PO vancomycin, but came back on 12/13 with altered mental status and hypoglycemia, again discharged on 12/15. She was mildly fatigued on 12/16 according to her and asked to wait another day before traveling back to her home in [place]. This morning, she was unarousable and her called 911. She was intubated upon arrival to the emergency department for agonal respirations. CXR demonstrates bilateral multifocal pneumonia. She is febrile, hypotensive. CVL placed in the ER and vasopressors initiated after 2L bolus crystalloid. CT chest/abd/pelvis demonstrates right pneumothorax, densely consolidated right lower lobe, bilateral pulmonary infiltrates, evidence of ongoing colitis. Patient continue to be unstable. Immediately after identifying ptx on CT scan, I emergently placed right chest tube with some improvements in hemodynamics, but ongoing distributive shock persists. I placed arterial line. No additional information available from the patient, ROS unobtainable. In discussion with the , she has not had any new complaints in the 48h she was home, and other than mild fatigue last night, no new complaints. She was able to walk to the bathroom without assistance yesterday. 12/18: shock remains. now on levophed, vasopressin, phenylephrine. second chest tube placed overnight for worsening SQ air. acidosis remains and is severe. 12/19: Afebrile. Remains on vasopressin drip only. On stress dose hydrocortisone. Evaluated by CT surgery. Not a candidate for intervention at the present time. Chest tube continues to leak. Epoprostenol added today 12/20: Afebrile. FiO2 has decreased and is currently 70%. Currently replacing potassium, phosphorus and magnesium. Recheck later this afternoon. Less chest tube leak today down to 1 chamber. 12/21: Overnight, worsening subcutaneous emphysema. A third chest tube placed by overnight blood or blood bank technician after discussion with cardiothoracic surgery. Currently hemodynamically stable. Replacing phosphorus today. To be evaluated by CT surgery today. 12/22: Remains sedated, orally intubated on mechanical ventilation. Persistent air leak and chest tube noted. 12/23: Remains sedated, orally intubated on mechanical ventilation. Air leak persists though slightly improved. PEEP at +5 FiO2 55%, inhaled Flolan continues. Central line replaced with right IJ triple-lumen catheter. 12/24: Remains sedated, orally intubated on mechanical ventilation. 1+ air leak from chest tube 3 noted. PEEP +5, FiO2 60%, inhaled Flolan continues. Decreasing subcutaneous emphysema noted. 12/25: Remains sedated, orally improved on mechanical ventilation. 1+ for leak from chest tube 2. PEEP +5, FiO2 50%. Starting to titrate inhaled Flolan down today. Initiating Lasix to mobilize fluid. 12/26: remains intubated. air leak continues from chest tube #3. drainage out of #1 and #2 are very serous. #1 was removed by myself today. all chest tube dressings changed by me today. repeat CXR pending. very volume overloaded. starting to diurese. off vasopressors. off pathway: still high fio2 requirements. 12/27: good diuresis overnight. very hypokalemic today and aggressively replacing. CXR unchanged. air leak unchanged. long discussion over long-term and short-term prognosis and plan of care with entire family today. all questions answered. 12/28: Continues to diurese. Remains on mechanical ventilation. Positive air leak in chest tube 3. 1 unit PRBCs transfused earlier for hemoglobin 6.9. 12/29: Remains on mechanical ventilation. Increasing subcutaneous emphysema noted. Air leak stopped and chest tube #2 and 3 currently. Flolan being titrated down. Chest x-ray shows appropriate positioning of 2 chest tubes with the more medial small right pneumothorax with significant subcutaneous emphysema bilaterally. Patient remains off pressors and is being diuresed to mobilize fluid. 12/30: volume removal continues. Cr still at baseline. fio2 down to 40% and off inhaled Flolan. discussed with Dr. Lynn: will need to wait at least until next week for VATS. Will need trach going forward: discussed with family and they are agreeable. Dr. Lynn asked that both chest tubes remain in place. air leak persists. remains intubated and sedated. 12/31: Sedated, orally intubated on mechanical ventilation. On 40% FiO2 PEEP + 5. Positive air leak in chest tube [address] surgery planning for VATS next week, will need tracheostomy coordinated as well. 01/01: Remains sedated, orally intubated on mechanical ventilation. PEEP +5, FiO2 35%. Being diuresed. 01/02: Sedated, orally intubated on mechanical ventilation. PEEP +5, FiO2 35%. Intermittent air leak in chest tube 3. Being diuresed 01/03: persistent air leak. hypoxia improving. discussed case with Dr. Lynn- he would like pre-operative CT chest for surgical planning. we also discussed timing of tracheostomy: it would be easier surgically to have ett in place to place double-lumen ett, so he would prefer to keep ett until after operation, and then proceed with tracheostomy. tentatively VATS planned for Friday 01/05. 01/04: No events over the night. Patient remains sedated and intubated, sedation achieved with fentanyl and propofol. T-max of 100.2 over the last 24 hours. I/O 3770/3130. Chest tubes remain on suction. SUBJECTIVE: 01/05: T-max 99.3. Currently afebrile. Difficulty with weaning from ventilator noted. VATS currently on hold per CT surgery. Objective Vital Signs / I&O: Vital Signs 01/04/18 14:00 01/04/18 15:00 01/04/18 15:40 Temperature Pulse Rate 111 H 112 H Respiratory Rate 17 17 Blood Pressure Pulse Oximetry 100 01/04/18 16:00 01/04/18 17:00 01/04/18 18:00 Temperature Pulse Rate 115 H 110 H 119 H Respiratory Rate 18 19 19 Blood Pressure 110/64 99/55 L 106/66 Pulse Oximetry 100 99 100 01/04/18 19:00 01/04/18 20:00 01/04/18 20:30 Temperature 98.3 F Pulse Rate 122 H 113 H 109 H Respiratory Rate 24 22 15 Blood Pressure 111/65 108/60 Pulse Oximetry 100 100 100 01/04/18 22:00 01/04/18 23:40 01/05/18 00:00 Temperature 98.7 F Pulse Rate 106 H 104 H 109 H Respiratory Rate 17 23 Blood Pressure 108/60 Pulse Oximetry 100 100 01/05/18 02:00 01/05/18 04:00 01/05/18 04:21 Temperature 98.4 F Pulse Rate 104 H 112 H 109 H Respiratory Rate 28 H 17 Blood Pressure 137/80 Pulse Oximetry 100 100 01/05/18 06:00 01/05/18 07:00 01/05/18 08:00 Temperature 99.3 F Pulse Rate 116 H 112 H 113 H Respiratory Rate 19 18 Blood Pressure 116/70 Pulse Oximetry 99 01/05/18 10:00 01/05/18 11:00 01/05/18 11:20 Temperature Pulse Rate 107 H 108 H Respiratory Rate 29 H 27 H Blood Pressure Pulse Oximetry 100 01/05/18 12:00 Temperature 99.1 F Pulse Rate 106 H Respiratory Rate 19 Blood Pressure 124/75 Pulse Oximetry 97 Intake & Output 01/04/18 01/05/18 01/05/18 18:59 06:59 18:59 Intake Total 1887 / 1887 1062 / 1062 Output Total 530 / 530 1700 / 1700 Balance 1357 / 1357 -638 / -638 Weight 71.7 kg Intake: IV 1100 / 1100 550 / 550 Diprivan 1000 mg/100 ml Inj 1, 100 / 100 100 / 100 000 mg In 100 ml @ 5 MCG/KG/MIN 2.904 mls/hr IV.CONT TITRATE PRN Rx#:[id number] Mycamine Inj 150 MG In NS Inj 100 / 100 100 ML @ 100 mls/hr IV.SIG Q24H BENJAMIN Rx#:[id number] Zosyn 4.5 GM Premix 4.5 gm In 200 / 200 200 / 200 100 ml @ 200 mls/hr IV.SIG Q6H BENJAMIN Rx#:[id number] KCl 20 mEq Premix Inj 20 meq In 200 / 200 100 ml @ 50 mls/hr IV.SIG Q2H PRN Rx#:[id number] fentaNYL 10 mcg/mL Premix Drip 500 / 500 250 / 250 2,500 mcg In 250 ml @ 50 MCG/HR 5 mls/hr IV.SIG TITRATE PRN Rx #:[id number] Tube Feeding 687 / 687 412 / 412 Tube Irrigant 100 / 100 Water Bolus Amount 100 / 100 Output: Urine 500 / 500 1400 / 1400 Stool 300 / 300 Chest Tube Drainage 30 / 30 0 / 0 #2 Right 0 / 0 0 / 0 #3 Right Upper 30 / 30 0 / 0 Other: Date of Last Bowel Movement 01/04/18 01/04/18 01/05/18 # Bowel Movements 3 Result Diagrams: 01/05/18 05:23 01/05/18 05:23 Other Results: Microbiology 01/01/18 22:07 Blood - Peripheral Aerobic Blood Culture - Preliminary No growth in 4 days 01/01/18 22:07 Blood - Peripheral Anaerobic Blood Culture - Preliminary No growth in 4 days 01/01/18 19:45 Blood - Peripheral Aerobic Blood Culture - Preliminary No growth in 4 days 01/01/18 19:45 Blood - Peripheral Anaerobic Blood Culture - Preliminary No growth in 4 days 01/02/18 17:28 Sputum - Endotracheal Gram Stain - Final 01/02/18 17:28 Sputum - Endotracheal Sputum Culture - Final Klebsiella pneumoniae 12/19/17 11:30 Bronchial Washings - Bronchial Acid Fast Bacilli Smear - Final No acid fast bacilli seen 12/19/17 11:30 Bronchial Washings - Bronchial Mycobacterial Culture - Preliminary No growth in 2 weeks 12/19/17 11:30 Bronchial Washings - Bronchial Fungal Smear - Final Rare budding yeast 12/19/17 11:30 Bronchial Washings - Bronchial Fungal Culture - Preliminary 12/17/17 15:55 Fluid - Pleural fluid Gram Stain - Final 12/17/17 15:55 Fluid - Pleural fluid Body Fluid Culture - Final Lactobacillus rhamnosus Karla glabrata Klebsiella pneumoniae 12/19/17 00:56 Fluid - Pleural fluid Gram Stain - Final 12/19/17 00:56 Fluid - Pleural fluid Body Fluid Culture - Final Karla glabrata Lactobacillus rhamnosus 12/19/17 00:30 Fluid - Pleural fluid Gram Stain - Final 12/19/17 00:30 Fluid - Pleural fluid Body Fluid Culture - Final Klebsiella pneumoniae Karla albicans Karla glabrata Lactobacillus rhamnosus 12/17/17 15:55 Other - Final 12/17/17 08:24 Blood - Peripheral Aerobic Blood Culture - Final No growth in 5 days 12/17/17 08:24 Blood - Peripheral Anaerobic Blood Culture - Final No growth in 5 days 12/17/17 08:10 Blood - Peripheral Aerobic Blood Culture - Final No growth in 5 days 12/17/17 08:10 Blood - Peripheral Anaerobic Blood Culture - Final Staphylococcus coag negative Viridans streptococcus grp 12/19/17 11:30 Bronchial - Bronchial Gram Stain - Final 12/19/17 11:30 Bronchial - Bronchial Bronchial Culture - Final Klebsiella pneumoniae 12/17/17 15:54 Sputum - Endotracheal Gram Stain - Final 12/17/17 15:54 Sputum - Endotracheal Sputum Culture - Final Klebsiella pneumoniae 12/17/17 15:55 Stool Stool for WBCs - Final Few WBC's 12/17/17 13:54 Urine - Catheterized Urine Streptococcus pneumoniae Antigen ( M - Final Presumptive negative for streptococcus pneumoniae antigen, suggesting no current or recent infection. Infection due to Streptococcus pneumoniae cannot be ruled out since the antigen present in the sample may be below the detection limit of the test. 12/17/17 13:54 Urine - Catheterized Urine Legionella Antigen - Final Presumptive negative for Legionella pneumophila serogroup 1 antigen in urine, suggesting no recent or recurrent infection. Infection due to Legionella cannot be ruled out since other serogroups and species may cause disease, antigen may not be present in urine in early infection, and the level of antigen present in the urine may be below the detection limit of the test. 12/17/17 15:55 Nasal Aspirate Influenza Types A,B Antigen - Final Negative for FLU A and B antigen Infection due to influenza A or B cannot be ruled out since the antigen present in the sample may be below the detection limit of the test. Imaging: Chest X-Ray 12/17/17 00:00 CONCLUSION: 1. Persistent bilateral airspace infiltrates. 2. Interval placement of a right-sided thoracostomy tube. There does appear to be an apical lateral 1.5 cm right pneumothorax. 3. Extensive subcutaneous and deep tissue emphysematous changes about the right hemithorax. Chest X-Ray 12/17/17 00:00 CONCLUSION: Right-sided chest tube with slight increase in right pneumothorax compared with earlier exam. Slight increase in left basilar airspace disease since earlier exam. Slight worsening of subcutaneous air with extension into the left hemithorax and neck. Chest X-Ray 12/17/17 08:02 CONCLUSION: Satisfactory support line and tube positioning. Bilateral infiltrates. Head CT 12/17/17 08:02 CONCLUSION: 1. 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 2. Otherwise negative. . Abdomen/Pelvis CT 12/17/17 10:45 CONCLUSION: 1. Moderate diffuse colonic wall thickening exaggerated by lack of colonic distention. This may be due to low-protein state/edema. However, differential considerations include infectious and inflammatory colitis. 2. Moderate-sized right hydropneumothorax with airspace disease in the lung bases as described on chest CT. 3. Additional ancillary findings, as above. Chest CT 12/17/17 10:45 CONCLUSION: 1. Small to moderate-sized right-sided hydropneumothorax. 2. Right lower lobe consolidation with air bronchograms. Differential considerations include aspiration and lobar pneumonia. 3. Patchy diffuse groundglass opacities most prominently in the upper lobes bilaterally. Differential considerations include bronchopneumonia, atypical infection and atypical pulmonary edema. 4. Mild mediastinal adenopathy, likely reactive. Chest X-Ray 12/17/17 22:00 CONCLUSION: Placement of second right-sided chest tube with near complete resolution of previous right pneumothorax. Chest X-Ray 12/18/17 05:00 CONCLUSION: 1. Stable bilateral multifocal consolidative infiltrates. 2. 2 right chest drainage tubes in place; no pneumothorax seen. Chest X-Ray 12/19/17 00:00 CONCLUSION: 1. 2 right chest tubes remain present and there is now a small pneumothorax. There is also increased right chest wall soft tissue air. 2. Stable severe bilateral airspace consolidation. Chest X-Ray 12/19/17 05:00 CONCLUSION: Findings suggest reaccumulation of right pneumothorax with both right-sided chest tubes unchanged in position. Chest X-Ray 12/19/17 10:08 CONCLUSION: 1. 2 right chest tubes are present and no pneumothorax is identified. 2. Stable bilateral airspace consolidation primarily in the lower lung zones. Chest X-Ray 12/20/17 06:00 CONCLUSION: 1. Decrease in size of right apical pneumothorax to 4 mm. 2. Diffuse bilateral airspace consolidation similar in severity and distribution to prior. Chest X-Ray 12/21/17 02:48 CONCLUSION: 1. Large amount of chest wall and neck soft tissue emphysema present, much worse than yesterday. No definite pneumothorax. Right chest tubes remain in place. 2. Worsening bilateral airspace disease, left more so than right. Chest CT 12/21/17 04:03 CONCLUSION: 1. Moderate size right pneumothorax without tension. Also pneumopericardium and pneumomediastinum. Massive chest wall emphysema. 2. Bilateral airspace disease. 3.7 cm bilobed cavitary lesion of the right lower lobe. 3. Small left pleural effusion. No left pneumothorax. Chest X-Ray 12/21/17 07:31 CONCLUSION: Progression of the extensive subcutaneous emphysema with [address] on the right. Chest X-Ray 12/22/17 06:00 CONCLUSION: 1. Decreased chest wall emphysema. No pneumothorax seen. 2. Diffuse bilateral airspace disease without significant change. Chest X-Ray 12/23/17 13:34 CONCLUSION: 1. Interval placement of right internal jugular central venous line with no pneumothorax. 2. 3 right-sided chest tubes remain in place. 3. Interval improvement in subcutaneous emphysema. 4. The right costophrenic angle with consolidative opacity in the right lung base. Chest X-Ray 12/26/17 00:00 CONCLUSION: 1. Lines and tubes remain in place. 2. No significant interval change with persistent mild diffuse bilateral pulmonary opacity. Chest X-Ray 12/26/17 05:00 CONCLUSION: Decreasing subcutaneous emphysema. Otherwise no change. Chest X-Ray 12/27/17 05:00 CONCLUSION: Stable chest appearance Chest X-Ray 12/29/17 07:29 CONCLUSION: 1. Significant interval increase in bilateral subcutaneous emphysema with small apparent medial right pneumothorax now noted. 2. The patient remains intubated and there are 2 right-sided chest tubes in place. Chest X-Ray 12/30/17 07:39 CONCLUSION: 1. No significant change. 2. No evidence of pneumothorax. 3. Stable supportive devices. 4. Extensive airspace disease remains evident throughout both lungs without significant improvement. Chest X-Ray 12/31/17 05:00 CONCLUSION: Little change from prior exam Chest CT 01/03/18 11:56 CONCLUSION: 1. Consolidation at both lung bases has improved. Cavitary lesions on the right are slightly larger as measured above. 2. Improving pneumomediastinum, pneumopericardium and subcutaneous emphysema. Near complete resolution of previous right pneumothorax. 2 right chest tubes present. Trace pleural fluid present. 3. Patchy airspace disease remains in the lungs probably with some fibrotic changes well. 4. Endotracheal tube and nasogastric tube in good position. Chest X-Ray 01/04/18 05:00 CONCLUSION: 1. Decreased lung volumes. Persistent bilateral pulmonary opacity. 2. Right-sided chest tubes. Bilateral subcutaneous emphysema. No evidence of pneumothorax. Objective Remarks: GENERAL: Middle-aged lady, intubated and sedated, ill-appearing HEENT: Pupils are equal and reactive, sclerae are anicteric, orally intubated, + NGT NECK: Supple, no rigidity, no neck vein distention, no carotid bruit CHEST: Coarse breath sounds bilateral, no wheezes, + subcutaneous emphysema, 2 right-sided chest tubes on suction, no air leak noted. Currently covered CARDIOVASCULAR: RRR. S1, S2. No S4., no murmurs appreciated ABDOMEN: Soft, nontender, nondistended, bowel sounds present, no hepatomegaly or splenomegaly appreciated MUSCULOSKELETAL: Extremities are warm and well perfused, peripheral pulses are present, 2+ pitting edema NEUROLOGICAL: Sedated and intubated, does not open eyes to voice stimuli and does not follow commands, withdraws to pain. Pupils are equal and reactive, no gaze deviation Assessment and Plan - Assessment and Plan Plan: Neuro/Psych: Acute metabolic encephalopathy Possible seizure disorder Currently on fentany/ propofol drips for sedation/analgesia while intubated Daily sedation vacation. Goal RASS -2 She was started on anticonvulsants on her initial admission 11/23. Valproic acid 500 mg 3 times daily. Recheck level 01/[address] 12/17- for acute disease EEG - Diffuse slowing consistent with a moderate diffuse encephalopathy. No epileptiform activity Acetaminophen 650 by tube every 6 hours as needed fever Continue quetiapine 25 mg daily/home medication Holding tizanidine 4 mg daily Respiratory: Acute hypoxic and hypercarbic respiratory failure- persistent Acute severe bilateral multifocal healthcare associated pneumonia Possible aspiration pneumonia Spontaneous right-sided tension pneumothorax Subcutaneous Emphysema Chest tube #1: 12/17- removed 12/26 Chest tube #2: 12/17 Chest tube #3: 12/19 CT surgery/Dr. Lynn following. CT thorax overnight 12/12 revealed significant 3.7 cm moderate right pneumothorax without tension. Pneumopericardium and significant subcutaneous emphysema. Vent bundle and bronchodilators PRVC mode 450/14/35% PEEP of 5 Patient is synchronized with the ventilator, no auto PEEP, Pip 27 Epoprostanol added 12/19, removed 12/29. Albuterol/ipratropium aerosols every 4 hours with albuterol aerosols every 2 hours as needed dyspnea Wean FiO2 for goal SPO2 greater than 90% Daily CXR VATS -tentatively planned for today currently on hold since no air leak. Followed by CT surgery/Dr. Lynn. Cardiovascular: Septic shock- resolved Elevated troponin Type II NSTEMI secondary to demand ischemia Hyperlipidemia Holding lisinopril 30 mg daily/home medication. For dyslipidemia resume pravastatin 40 mg daily when clinically indicated Continue hydrocortisone wean Furosemide 40 mg IV twice daily diuresis Renal: Acute kidney injury (resolved) Secondary to shock, off pressors Frequent urine output monitoring Daily creatinine KVO IV fluid. Furosemide 40 mg IV twice daily Strict I/Os FEN/GI: Acute protein calorie malnutritionsevere Lactic acidosis- resolved Severe colitis Enterovirus colitis C. difficile colitis Hyperammonemia Hypokalemia Hyperphosphatemia Currently on lactulose 30 cc twice daily Tube feeding with vital 1.5 goal 55 cc now. Metoclopramide 1 mg 3 times daily ICU electrolyte protocol Daily BMP, magnesium, phosphorus Lactulose/polythene glycol twice daily Holding dicyclomine 20 mg 3 times daily Heme/ID: C. difficile colitis Enterovirus colitis Septic shock Healthcare associated multifocal pneumonia Possible gram-positive cocci bacteremia Early empyema 1 unit PRBCs transfused on 12/28 for hemoglobin 6.9, recheck CBC and transfuse to keep hemoglobin above 8 g% Vancomycin p.o. with pharmacy dosing Continue piperacillin/tazobactam and micafungin Bronchoscopy 12/19 with Klebsiella Pleural fluid 12/19 with Klebsiella's/Karla Pleural fluid 12/17 -g Karla albicans/glabrata Klebsiella, lactobacillus 12/17 -sputum -Klebsiella 12/17 blood-strep viridians/coag negative staph Infectious disease consulted and following. Actively Endocrine: Acute hypoglycemia- resolving. Sliding scale insulin Accu-Cheks every 6 hours to maintain euglycemia Prophylaxis: GI Prophylaxis Famotidine DVT Prophylaxis -- SCDs Subcu heparin Lines: 12/17 femoral triple-lumen catheter discontinued 12/23 12/17 right radial arterial line discontinued 12/21 12/17 right 28 Bahamian chest tube to -40 cm suction: removed 12/26 12/17 right 32 Baham[place] chest tube to -40 cm suction 12/19 -right #32 Bahamian chest tube to -40 cm suction Level 2 follow-up
--- NOTE | 2018-01-05 13:27 | P.PNID ---
Subjective Remarks: tolerating CPAP Antibiotics: zosyn vanco PO micafungin Lines: Lines ok Past Medical History: reviewed Allergies/Adverse Reactions: Allergies No Known Allergies Allergy (Verified 12/13/17 08:04) Objective Vital Signs 01/04/18 14:00 01/04/18 15:00 01/04/18 15:40 Temperature Pulse Rate 111 H 112 H Respiratory Rate 17 17 Blood Pressure Pulse Oximetry 100 01/04/18 16:00 01/04/18 17:00 01/04/18 18:00 Temperature Pulse Rate 115 H 110 H 119 H Respiratory Rate 18 19 19 Blood Pressure 110/64 99/55 L 106/66 Pulse Oximetry 100 99 100 01/04/18 19:00 01/04/18 20:00 01/04/18 20:30 Temperature 98.3 F Pulse Rate 122 H 113 H 109 H Respiratory Rate 24 22 15 Blood Pressure 111/65 108/60 Pulse Oximetry 100 100 100 01/04/18 22:00 01/04/18 23:40 01/05/18 00:00 Temperature 98.7 F Pulse Rate 106 H 104 H 109 H Respiratory Rate 17 23 Blood Pressure 108/60 Pulse Oximetry 100 100 01/05/18 02:00 01/05/18 04:00 01/05/18 04:21 Temperature 98.4 F Pulse Rate 104 H 112 H 109 H Respiratory Rate 28 H 17 Blood Pressure 137/80 Pulse Oximetry 100 100 01/05/18 06:00 01/05/18 07:00 01/05/18 08:00 Temperature 99.3 F Pulse Rate 116 H 112 H 113 H Respiratory Rate 19 18 Blood Pressure 116/70 Pulse Oximetry 99 01/05/18 10:00 01/05/18 11:00 01/05/18 11:20 Temperature Pulse Rate 107 H 108 H Respiratory Rate 29 H 27 H Blood Pressure Pulse Oximetry 100 01/05/18 12:00 Temperature 99.1 F Pulse Rate 106 H Respiratory Rate 19 Blood Pressure 124/75 Pulse Oximetry 97 Intake & Output 01/04/18 01/05/18 01/05/18 18:59 06:59 18:59 Intake Total 1887 / 1887 1062 / 1062 Output Total 530 / 530 1700 / 1700 Balance 1357 / 1357 -638 / -638 Weight 71.7 kg Intake: IV 1100 / 1100 550 / 550 Diprivan 1000 mg/100 ml Inj 1, 100 / 100 100 / 100 000 mg In 100 ml @ 5 MCG/KG/MIN 2.904 mls/hr IV.CONT TITRATE PRN Rx#:[id number] Mycamine Inj 150 MG In NS Inj 100 / 100 100 ML @ 100 mls/hr IV.SIG Q24H BENJAMIN Rx#:[id number] Zosyn 4.5 GM Premix 4.5 gm In 200 / 200 200 / 200 100 ml @ 200 mls/hr IV.SIG Q6H BENJAMIN Rx#:[id number] KCl 20 mEq Premix Inj 20 meq In 200 / 200 100 ml @ 50 mls/hr IV.SIG Q2H PRN Rx#:[id number] fentaNYL 10 mcg/mL Premix Drip 500 / 500 250 / 250 2,500 mcg In 250 ml @ 50 MCG/HR 5 mls/hr IV.SIG TITRATE PRN Rx #:[id number] Tube Feeding 687 / 687 412 / 412 Tube Irrigant 100 / 100 Water Bolus Amount 100 / 100 Output: Urine 500 / 500 1400 / 1400 Stool 300 / 300 Chest Tube Drainage 30 / 30 0 / 0 #2 Right 0 / 0 0 / 0 #3 Right Upper 30 / 30 0 / 0 Other: Date of Last Bowel Movement 01/04/18 01/04/18 01/05/18 # Bowel Movements 3 01/01/18 22:07 Blood - Peripheral Aerobic Blood Culture - Preliminary No growth in 4 days 01/01/18 22:07 Blood - Peripheral Anaerobic Blood Culture - Preliminary No growth in 4 days 01/01/18 19:45 Blood - Peripheral Aerobic Blood Culture - Preliminary No growth in 4 days 01/01/18 19:45 Blood - Peripheral Anaerobic Blood Culture - Preliminary No growth in 4 days 01/02/18 17:28 Sputum - Endotracheal Gram Stain - Final 01/02/18 17:28 Sputum - Endotracheal Sputum Culture - Final Klebsiella pneumoniae 12/19/17 11:30 Bronchial Washings - Bronchial Acid Fast Bacilli Smear - Final No acid fast bacilli seen 12/19/17 11:30 Bronchial Washings - Bronchial Mycobacterial Culture - Preliminary No growth in 2 weeks Lab - Hematology Results 01/04/18 01/05/18 05:05 05:23 WBC 7.9 9.0 RBC 2.23 L 2.34 L Hgb 7.3 L 7.8 L Hct 21.5 L 22.5 L MCV 96.4 96.3 MCH 32.7 33.2 MCHC 33.9 34.4 RDW 14.8 15.1 Plt Count 362 435 MPV 8.2 8.0 Lab - Chemistry Results 01/03/18 01/03/18 01/04/18 17:08 23:31 05:05 Sodium 140 Potassium 2.6 L* Chloride 95 L Carbon Dioxide 33.6 H Anion Gap 11 BUN 27 H Creatinine 0.70 Estimated GFR 84 L POC Glucose 114 H 122 H Random Glucose 113 H Calcium 7.9 L Phosphorus 5.7 H D Magnesium 1.9 01/04/18 01/04/18 01/04/18 10:33 13:14 17:53 Sodium Potassium 3.9 D Chloride Carbon Dioxide Anion Gap BUN Creatinine Estimated GFR POC Glucose 112 H 143 H Random Glucose Calcium Phosphorus Magnesium 01/05/18 01/05/18 01/05/18 00:02 05:23 11:48 Sodium 140 Potassium 3.3 L Chloride 96 L Carbon Dioxide 32.9 H Anion Gap 11 BUN 31 H Creatinine 0.71 Estimated GFR 83 L POC Glucose 128 H 117 H Random Glucose 98 Calcium 8.6 Phosphorus 5.0 H Magnesium 2.1 Imaging: ITS Impressions Head CT 12/17/17 08:02 CONCLUSION: 1. 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 2. Otherwise negative. . Abdomen/Pelvis CT 12/17/17 10:45 CONCLUSION: 1. Moderate diffuse colonic wall thickening exaggerated by lack of colonic distention. This may be due to low-protein state/edema. However, differential considerations include infectious and inflammatory colitis. 2. Moderate-sized right hydropneumothorax with airspace disease in the lung bases as described on chest CT. 3. Additional ancillary findings, as above. Chest CT 01/03/18 11:56 CONCLUSION: 1. Consolidation at both lung bases has improved. Cavitary lesions on the right are slightly larger as measured above. 2. Improving pneumomediastinum, pneumopericardium and subcutaneous emphysema. Near complete resolution of previous right pneumothorax. 2 right chest tubes present. Trace pleural fluid present. 3. Patchy airspace disease remains in the lungs probably with some fibrotic changes well. 4. Endotracheal tube and nasogastric tube in good position. Chest X-Ray 01/04/18 05:00 CONCLUSION: 1. Decreased lung volumes. Persistent bilateral pulmonary opacity. 2. Right-sided chest tubes. Bilateral subcutaneous emphysema. No evidence of pneumothorax. Physical Exam: GENERAL: sedated int'd on mech vent'n SKIN: Warm and dry. No rash markedly improved SQ emphysema EYES: No scleral icterus. No injection or drainage. ENT: No nasal bleeding or discharge. Mucous membranes pink and moist. NECK: Trachea midline. No JVD. CARDIOVASCULAR: Regular rate and rhythm RESPIRATORY: No accessory muscle use. scattered rhonchi to auscultation. CT x 2 R side: no leak noted GASTROINTESTINAL: Abdomen soft, non-tender, distended. Hepatic and splenic margins not palpable. MUSCULOSKELETAL: Extremities without clubbing, cyanosis, less edema. No obvious deformities. NEUROLOGICAL: sedated, unresponsive PSYCHIATRIC: unable to assess Assessment and Plan - Plan Sepsis (fever, leucocytosis) ongoing possible new. Coag neg staph likely pseudobacteremia Strep viridans: ? related to empyema torie Strep. 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 Lactobacillus resistant to Meropenem. Cannot use Clindamycin due to Cdiff. cont micafungin for both grace glab and albicans. cont oral vanco for c.diff fu WBC, temp and clinically dw dw RN dw Dr Joseph
[2018-01-05] MEDS: Micafungin Inj 150 MG in Sodium Chlor 0.9% Inj 100 ML IV.SIG SCH (18:05)
[2018-01-05] MEDS: QUEtiapine 25 MG Tablet PO SCH (20:42)
[2018-01-06] MEDS: Oral Hygiene Kit OROPHARYNG SCH ×3 (04:59→15:52)
[2018-01-06] MEDS: Piperacil/Tazo 4.5 GM Premix 4.5 GM/100 ML BAG IV.SIG SCH ×4 (05:36→21:42)
[2018-01-06] MEDS: Heparin - SQ 10,000 UNITS/ML Vial SQ SCH ×3 (05:37→21:43)
[2018-01-06 06:09] LABS: Hematocrit 22.8 % (35.0-46.0); Hemoglobin 7.5 gm/dL (11.6-15.3); Mean Corpuscular HGB Conc 32.9 % (32.0-36.0); Mean Corpuscular Volume 97.3 fL (80.0-100.0); Platelet Count 444 th/mm3 (150-450); Red Blood Count 2.34 mil/mm3 (4.00-5.30); Red Cell Distribution Width 14.8 % (11.6-17.2); White Blood Count 8.4 th/mm3 (4.0-11.0)
[2018-01-06 06:44] LABS: Anion Gap 9 meq/L (5-15); Blood Urea Nitrogen 25 mg/dL (7-18); Calcium 8.7 mg/dL (8.5-10.1); Carbon Dioxide 32.3 meq/L (21.0-32.0); Chloride 103 meq/L (98-107); Glomerular Filtration Rate Greater Than 89 mL/min (>89); Glucose,Random 109 mg/dL (74-106); Magnesium 2.1 mg/dL (1.5-2.5); Phosphorus 3.6 mg/dL (2.5-4.9); Sodium 144 meq/L (136-145); Valproic Acid 34 mcg/mL (50-100)
[2018-01-06] MEDS: Insulin NovoLIN Regular Correctional Sugar Inj SQ SCH ×3 (07:00→17:27)
[2018-01-06] MEDS: Propofol 1000 mg/100 ml Inj 1,000 MG/100 ML BOTTLE IV.CONT PRN ×3 (07:14→22:57)
[2018-01-06] MEDS: Polyethylene Glycol 3350 17 GM Packet PO SCH ×2 (08:00→21:42)
[2018-01-06] MEDS: Senna/Docusate Sodium 8.6/50 MG Tablet PO SCH ×2 (08:00→21:43)
[2018-01-06] MEDS: Potassium Chloride 25 MEQ Effervescent Tablet NG/OG SCH (09:45)
[2018-01-06] MEDS: Famotidine 20 MG Tablet PO SCH ×2 (09:46→21:43)
[2018-01-06] MEDS: Chlorhexidine 0.12% Oral Kit 15 ML UDC OROPHARYNG SCH ×2 (09:47→21:42)
[2018-01-06] MEDS: fentaNYL 10 mcg/mL Premix Drip 2,500 MCG/250 ML BAG IV.SIG PRN (09:48)
[2018-01-06] MEDS: Sodium Chloride 0.9% 2 ML Flush BID IV.FLUSH SCH ×2 (09:52→21:42)
[2018-01-06] MEDS: Carboxymethylcellulose 0.5% Opth Drops 15 ML Bottle EACH EYE SCH ×2 (09:52→21:44)
[2018-01-06] MEDS: Collagenase Oint 30 GM Tube TOPICAL SCH (09:52)
[2018-01-06] MEDS: Potassium Chlor 20 mEq Premix 20 MEQ/100 ML PIGGYBACK IV.SIG PRN ×2 (13:49→22:15)
--- NOTE | 2018-01-06 13:51 | P.PNCC ---
Subjective Subjective Remarks/Hospital Course: This is a 62yF who was originally admitted on 11/23 with a diagnosis of colitis, found to have enterovirus. discharged on 12/11 at that time on PO vancomycin, but came back on 12/13 with altered mental status and hypoglycemia, again discharged on 12/15. She was mildly fatigued on 12/16 according to her and asked to wait another day before traveling back to her home in [place]. This morning, she was unarousable and her called 911. She was intubated upon arrival to the emergency department for agonal respirations. CXR demonstrates bilateral multifocal pneumonia. She is febrile, hypotensive. CVL placed in the ER and vasopressors initiated after 2L bolus crystalloid. CT chest/abd/pelvis demonstrates right pneumothorax, densely consolidated right lower lobe, bilateral pulmonary infiltrates, evidence of ongoing colitis. Patient continue to be unstable. Immediately after identifying ptx on CT scan, I emergently placed right chest tube with some improvements in hemodynamics, but ongoing distributive shock persists. I placed arterial line. No additional information available from the patient, ROS unobtainable. In discussion with the , she has not had any new complaints in the 48h she was home, and other than mild fatigue last night, no new complaints. She was able to walk to the bathroom without assistance yesterday. 12/18: shock remains. now on levophed, vasopressin, phenylephrine. second chest tube placed overnight for worsening SQ air. acidosis remains and is severe. 12/19: Afebrile. Remains on vasopressin drip only. On stress dose hydrocortisone. Evaluated by CT surgery. Not a candidate for intervention at the present time. Chest tube continues to leak. Epoprostenol added today 12/20: Afebrile. FiO2 has decreased and is currently 70%. Currently replacing potassium, phosphorus and magnesium. Recheck later this afternoon. Less chest tube leak today down to 1 chamber. 12/21: Overnight, worsening subcutaneous emphysema. A third chest tube placed by overnight manager imaging after discussion with cardiothoracic surgery. Currently hemodynamically stable. Replacing phosphorus today. To be evaluated by CT surgery today. 12/22: Remains sedated, orally intubated on mechanical ventilation. Persistent air leak and chest tube noted. 12/23: Remains sedated, orally intubated on mechanical ventilation. Air leak persists though slightly improved. PEEP at +5 FiO2 55%, inhaled Flolan continues. Central line replaced with right IJ triple-lumen catheter. 12/24: Remains sedated, orally intubated on mechanical ventilation. 1+ air leak from chest tube 3 noted. PEEP +5, FiO2 60%, inhaled Flolan continues. Decreasing subcutaneous emphysema noted. 12/25: Remains sedated, orally improved on mechanical ventilation. 1+ for leak from chest tube 2. PEEP +5, FiO2 50%. Starting to titrate inhaled Flolan down today. Initiating Lasix to mobilize fluid. 12/26: remains intubated. air leak continues from chest tube #3. drainage out of #1 and #2 are very serous. #1 was removed by myself today. all chest tube dressings changed by me today. repeat CXR pending. very volume overloaded. starting to diurese. off vasopressors. off pathway: still high fio2 requirements. 12/27: good diuresis overnight. very hypokalemic today and aggressively replacing. CXR unchanged. air leak unchanged. long discussion over long-term and short-term prognosis and plan of care with entire family today. all questions answered. 12/28: Continues to diurese. Remains on mechanical ventilation. Positive air leak in chest tube 3. 1 unit PRBCs transfused earlier for hemoglobin 6.9. 12/29: Remains on mechanical ventilation. Increasing subcutaneous emphysema noted. Air leak stopped and chest tube #2 and 3 currently. Flolan being titrated down. Chest x-ray shows appropriate positioning of 2 chest tubes with the more medial small right pneumothorax with significant subcutaneous emphysema bilaterally. Patient remains off pressors and is being diuresed to mobilize fluid. 12/30: volume removal continues. Cr still at baseline. fio2 down to 40% and off inhaled Flolan. discussed with Dr. Lynn: will need to wait at least until next week for VATS. Will need trach going forward: discussed with family and they are agreeable. Dr. Lynn asked that both chest tubes remain in place. air leak persists. remains intubated and sedated. 12/31: Sedated, orally intubated on mechanical ventilation. On 40% FiO2 PEEP + 5. Positive air leak in chest tube [address] surgery planning for VATS next week, will need tracheostomy coordinated as well. 01/01: Remains sedated, orally intubated on mechanical ventilation. PEEP +5, FiO2 35%. Being diuresed. 01/02: Sedated, orally intubated on mechanical ventilation. PEEP +5, FiO2 35%. Intermittent air leak in chest tube 3. Being diuresed 01/03: persistent air leak. hypoxia improving. discussed case with Dr. Lynn- he would like pre-operative CT chest for surgical planning. we also discussed timing of tracheostomy: it would be easier surgically to have ett in place to place double-lumen ett, so he would prefer to keep ett until after operation, and then proceed with tracheostomy. tentatively VATS planned for Friday 01/05. 01/04: No events over the night. Patient remains sedated and intubated, sedation achieved with fentanyl and propofol. T-max of 100.2 over the last 24 hours. I/O 3770/3130. Chest tubes remain on suction. 01/05: T-max 99.3. Currently afebrile. Difficulty with weaning from ventilator noted. VATS currently on hold per CT surgery. SUBJECTIVE: 01/06: Resting comfortably in bed in no acute distress. Plan for thoracotomy rested on Thursday night. Currently on CPAP trial. Potassium being replaced. Objective Vital Signs / I&O: Vital Signs 01/05/18 14:00 01/05/18 15:00 01/05/18 16:00 Temperature 99 F Pulse Rate 111 H 103 H 103 H Respiratory Rate 15 18 Blood Pressure 121/73 Pulse Oximetry 99 01/05/18 18:00 01/05/18 20:00 01/05/18 21:30 Temperature 99 F Pulse Rate 99 H 103 H Respiratory Rate 18 15 Blood Pressure 121/73 Pulse Oximetry 99 100 01/05/18 21:34 01/05/18 22:00 01/06/18 00:00 Temperature 98.3 F Pulse Rate 97 H 98 H 96 H Respiratory Rate 17 17 Blood Pressure 118/67 Pulse Oximetry 100 01/06/18 00:51 01/06/18 00:52 01/06/18 02:00 Temperature Pulse Rate 94 H 93 H Respiratory Rate 15 15 Blood Pressure Pulse Oximetry 100 01/06/18 04:00 01/06/18 06:00 01/06/18 07:00 Temperature 98.6 F Pulse Rate 104 H 101 H 101 H Respiratory Rate 19 17 Blood Pressure 127/73 127/76 Pulse Oximetry 100 100 01/06/18 07:50 01/06/18 07:53 01/06/18 08:00 Temperature 99.2 F Pulse Rate 100 H 103 H Respiratory Rate 17 20 15 Blood Pressure 136/86 Pulse Oximetry 100 100 01/06/18 09:00 01/06/18 10:00 01/06/18 10:52 Temperature Pulse Rate 97 H 101 H 101 H Respiratory Rate 26 H 25 H 23 Blood Pressure 124/67 112/63 Pulse Oximetry 100 100 01/06/18 10:53 01/06/18 11:00 01/06/18 12:00 Temperature Pulse Rate 100 H 96 H Respiratory Rate 18 22 18 Blood Pressure 114/65 109/63 Pulse Oximetry 100 100 100 Intake & Output 01/05/18 01/06/18 01/06/18 18:59 06:59 18:59 Intake Total 853 / 853 1066 / 1066 475 / 475 Output Total 2700 / 2700 1300 / 1300 Balance -1847 / -1847 -234 / -234 475 / 475 Weight 70.8 kg Intake: IV 200 / 200 400 / 400 475 / 475 Diprivan 1000 mg/100 ml Inj 1, 100 / 100 100 / 100 000 mg In 100 ml @ 5 MCG/KG/MIN 2.904 mls/hr IV.CONT TITRATE PRN Rx#:[id number] Mycamine Inj 150 MG In NS Inj 100 / 100 100 ML @ 100 mls/hr IV.SIG Q24H BENJAMIN Rx#:[id number] Zosyn 4.5 GM Premix 4.5 gm In 100 / 100 200 / 200 200 / 200 100 ml @ 200 mls/hr IV.SIG Q6H BENJAMIN Rx#:[id number] fentaNYL 10 mcg/mL Premix Drip 250 / 250 2,500 mcg In 250 ml @ 50 MCG/HR 5 mls/hr IV.SIG TITRATE PRN Rx #:[id number] Tube Feeding 453 / 453 416 / 416 Water Bolus Amount 200 / 200 250 / 250 Output: Urine 2500 / 2500 1000 / 1000 Stool 200 / 200 300 / 300 Other: Date of Last Bowel Movement 01/04/18 01/06/18 01/05/18 Result Diagrams: 01/06/18 05:20 01/06/18 05:20 Other Results: Microbiology 01/01/18 22:07 Blood - Peripheral Aerobic Blood Culture - Final No growth in 5 days 01/01/18 22:07 Blood - Peripheral Anaerobic Blood Culture - Final No growth in 5 days 01/01/18 19:45 Blood - Peripheral Aerobic Blood Culture - Final No growth in 5 days 01/01/18 19:45 Blood - Peripheral Anaerobic Blood Culture - Final No growth in 5 days 01/02/18 17:28 Sputum - Endotracheal Gram Stain - Final 01/02/18 17:28 Sputum - Endotracheal Sputum Culture - Final Klebsiella pneumoniae 12/19/17 11:30 Bronchial Washings - Bronchial Acid Fast Bacilli Smear - Final No acid fast bacilli seen 12/19/17 11:30 Bronchial Washings - Bronchial Mycobacterial Culture - Preliminary No growth in 2 weeks 12/19/17 11:30 Bronchial Washings - Bronchial Fungal Smear - Final Rare budding yeast 12/19/17 11:30 Bronchial Washings - Bronchial Fungal Culture - Preliminary 12/17/17 15:55 Fluid - Pleural fluid Gram Stain - Final 12/17/17 15:55 Fluid - Pleural fluid Body Fluid Culture - Final Lactobacillus rhamnosus Karla glabrata Klebsiella pneumoniae 12/19/17 00:56 Fluid - Pleural fluid Gram Stain - Final 12/19/17 00:56 Fluid - Pleural fluid Body Fluid Culture - Final Karla glabrata Lactobacillus rhamnosus 12/19/17 00:30 Fluid - Pleural fluid Gram Stain - Final 12/19/17 00:30 Fluid - Pleural fluid Body Fluid Culture - Final Klebsiella pneumoniae Karla albicans Karla glabrata Lactobacillus rhamnosus 12/17/17 15:55 Other - Final 12/17/17 08:24 Blood - Peripheral Aerobic Blood Culture - Final No growth in 5 days 12/17/17 08:24 Blood - Peripheral Anaerobic Blood Culture - Final No growth in 5 days 12/17/17 08:10 Blood - Peripheral Aerobic Blood Culture - Final No growth in 5 days 12/17/17 08:10 Blood - Peripheral Anaerobic Blood Culture - Final Staphylococcus coag negative Viridans streptococcus grp 12/19/17 11:30 Bronchial - Bronchial Gram Stain - Final 12/19/17 11:30 Bronchial - Bronchial Bronchial Culture - Final Klebsiella pneumoniae 12/17/17 15:54 Sputum - Endotracheal Gram Stain - Final 12/17/17 15:54 Sputum - Endotracheal Sputum Culture - Final Klebsiella pneumoniae 12/17/17 15:55 Stool Stool for WBCs - Final Few WBC's 12/17/17 13:54 Urine - Catheterized Urine Streptococcus pneumoniae Antigen ( M - Final Presumptive negative for streptococcus pneumoniae antigen, suggesting no current or recent infection. Infection due to Streptococcus pneumoniae cannot be ruled out since the antigen present in the sample may be below the detection limit of the test. 12/17/17 13:54 Urine - Catheterized Urine Legionella Antigen - Final Presumptive negative for Legionella pneumophila serogroup 1 antigen in urine, suggesting no recent or recurrent infection. Infection due to Legionella cannot be ruled out since other serogroups and species may cause disease, antigen may not be present in urine in early infection, and the level of antigen present in the urine may be below the detection limit of the test. 12/17/17 15:55 Nasal Aspirate Influenza Types A,B Antigen - Final Negative for FLU A and B antigen Infection due to influenza A or B cannot be ruled out since the antigen present in the sample may be below the detection limit of the test. Imaging: Chest X-Ray 12/17/17 00:00 CONCLUSION: 1. Persistent bilateral airspace infiltrates. 2. Interval placement of a right-sided thoracostomy tube. There does appear to be an apical lateral 1.5 cm right pneumothorax. 3. Extensive subcutaneous and deep tissue emphysematous changes about the right hemithorax. Chest X-Ray 12/17/17 00:00 CONCLUSION: Right-sided chest tube with slight increase in right pneumothorax compared with earlier exam. Slight increase in left basilar airspace disease since earlier exam. Slight worsening of subcutaneous air with extension into the left hemithorax and neck. Chest X-Ray 12/17/17 08:02 CONCLUSION: Satisfactory support line and tube positioning. Bilateral infiltrates. Head CT 12/17/17 08:02 CONCLUSION: 1. 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 2. Otherwise negative. . Abdomen/Pelvis CT 12/17/17 10:45 CONCLUSION: 1. Moderate diffuse colonic wall thickening exaggerated by lack of colonic distention. This may be due to low-protein state/edema. However, differential considerations include infectious and inflammatory colitis. 2. Moderate-sized right hydropneumothorax with airspace disease in the lung bases as described on chest CT. 3. Additional ancillary findings, as above. Chest CT 12/17/17 10:45 CONCLUSION: 1. Small to moderate-sized right-sided hydropneumothorax. 2. Right lower lobe consolidation with air bronchograms. Differential considerations include aspiration and lobar pneumonia. 3. Patchy diffuse groundglass opacities most prominently in the upper lobes bilaterally. Differential considerations include bronchopneumonia, atypical infection and atypical pulmonary edema. 4. Mild mediastinal adenopathy, likely reactive. Chest X-Ray 12/17/17 22:00 CONCLUSION: Placement of second right-sided chest tube with near complete resolution of previous right pneumothorax. Chest X-Ray 12/18/17 05:00 CONCLUSION: 1. Stable bilateral multifocal consolidative infiltrates. 2. 2 right chest drainage tubes in place; no pneumothorax seen. Chest X-Ray 12/19/17 00:00 CONCLUSION: 1. 2 right chest tubes remain present and there is now a small pneumothorax. There is also increased right chest wall soft tissue air. 2. Stable severe bilateral airspace consolidation. Chest X-Ray 12/19/17 05:00 CONCLUSION: Findings suggest reaccumulation of right pneumothorax with both right-sided chest tubes unchanged in position. Chest X-Ray 12/19/17 10:08 CONCLUSION: 1. 2 right chest tubes are present and no pneumothorax is identified. 2. Stable bilateral airspace consolidation primarily in the lower lung zones. Chest X-Ray 12/20/17 06:00 CONCLUSION: 1. Decrease in size of right apical pneumothorax to 4 mm. 2. Diffuse bilateral airspace consolidation similar in severity and distribution to prior. Chest X-Ray 12/21/17 02:48 CONCLUSION: 1. Large amount of chest wall and neck soft tissue emphysema present, much worse than yesterday. No definite pneumothorax. Right chest tubes remain in place. 2. Worsening bilateral airspace disease, left more so than right. Chest CT 12/21/17 04:03 CONCLUSION: 1. Moderate size right pneumothorax without tension. Also pneumopericardium and pneumomediastinum. Massive chest wall emphysema. 2. Bilateral airspace disease. 3.7 cm bilobed cavitary lesion of the right lower lobe. 3. Small left pleural effusion. No left pneumothorax. Chest X-Ray 12/21/17 07:31 CONCLUSION: Progression of the extensive subcutaneous emphysema with [address] on the right. Chest X-Ray 12/22/17 06:00 CONCLUSION: 1. Decreased chest wall emphysema. No pneumothorax seen. 2. Diffuse bilateral airspace disease without significant change. Chest X-Ray 12/23/17 13:34 CONCLUSION: 1. Interval placement of right internal jugular central venous line with no pneumothorax. 2. 3 right-sided chest tubes remain in place. 3. Interval improvement in subcutaneous emphysema. 4. The right costophrenic angle with consolidative opacity in the right lung base. Chest X-Ray 12/26/17 00:00 CONCLUSION: 1. Lines and tubes remain in place. 2. No significant interval change with persistent mild diffuse bilateral pulmonary opacity. Chest X-Ray 12/26/17 05:00 CONCLUSION: Decreasing subcutaneous emphysema. Otherwise no change. Chest X-Ray 12/27/17 05:00 CONCLUSION: Stable chest appearance Chest X-Ray 12/29/17 07:29 CONCLUSION: 1. Significant interval increase in bilateral subcutaneous emphysema with small apparent medial right pneumothorax now noted. 2. The patient remains intubated and there are 2 right-sided chest tubes in place. Chest X-Ray 12/30/17 07:39 CONCLUSION: 1. No significant change. 2. No evidence of pneumothorax. 3. Stable supportive devices. 4. Extensive airspace disease remains evident throughout both lungs without significant improvement. Chest X-Ray 12/31/17 05:00 CONCLUSION: Little change from prior exam Chest CT 01/03/18 11:56 CONCLUSION: 1. Consolidation at both lung bases has improved. Cavitary lesions on the right are slightly larger as measured above. 2. Improving pneumomediastinum, pneumopericardium and subcutaneous emphysema. Near complete resolution of previous right pneumothorax. 2 right chest tubes present. Trace pleural fluid present. 3. Patchy airspace disease remains in the lungs probably with some fibrotic changes well. 4. Endotracheal tube and nasogastric tube in good position. Chest X-Ray 01/04/18 05:00 CONCLUSION: 1. Decreased lung volumes. Persistent bilateral pulmonary opacity. 2. Right-sided chest tubes. Bilateral subcutaneous emphysema. No evidence of pneumothorax. Objective Remarks: GENERAL: Middle-aged lady, intubated and sedated, ill-appearing HEENT: Pupils are equal and reactive, sclerae are anicteric, orally intubated, + NGT NECK: Supple, no rigidity, no neck vein distention, no carotid bruit CHEST: Coarse breath sounds bilateral, no wheezes, + subcutaneous emphysema, 2 right-sided chest tubes on suction, no air leak noted CARDIOVASCULAR: Regular heart sounds, no murmurs appreciated ABDOMEN: Soft, nontender, nondistended, bowel sounds present, no hepatomegaly or splenomegaly appreciated MUSCULOSKELETAL: Extremities are warm and well perfused, peripheral pulses are present, 2+ pitting edema NEUROLOGICAL: Sedated and intubated, does not open eyes to voice stimuli and does not follow commands, withdraws to pain. Pupils are equal and reactive, no gaze deviation Assessment and Plan - Assessment and Plan Plan: Neuro/Psych: Acute metabolic encephalopathy Possible seizure disorder Currently on fentany/ propofol drips for sedation/analgesia while intubated Daily sedation vacation. Goal RASS -2 She was started on anticonvulsants on her initial admission 11/23. Valproic acid 500 mg 3 times daily. Recheck level 01/[address] 12/17- for acute disease EEG - Diffuse slowing consistent with a moderate diffuse encephalopathy. No epileptiform activity Acetaminophen 650 by tube every 6 hours as needed fever Continue quetiapine 25 mg daily/home medication Holding tizanidine 4 mg daily Respiratory: Acute hypoxic and hypercarbic respiratory failure- persistent Acute severe bilateral multifocal healthcare associated pneumonia Possible aspiration pneumonia Spontaneous right-sided tension pneumothorax Subcutaneous Emphysema Chest tube #1: 12/17- removed 12/26 Chest tube #2: 12/17 Chest tube #3: 12/19 CT surgery/Dr. Lynn following. CT thorax overnight 12/12 revealed significant 3.7 cm moderate right pneumothorax without tension. Pneumopericardium and significant subcutaneous emphysema. Vent bundle and bronchodilators PRVC mode 450/14/35% PEEP of 5 Patient is synchronized with the ventilator, no auto PEEP, Pip 27 Epoprostanol added 12/19, removed 12/29. Albuterol/ipratropium aerosols every 4 hours with albuterol aerosols every 2 hours as needed dyspnea Wean FiO2 for goal SPO2 greater than 90% Daily CXR VATS -tentatively planned for today currently on hold since no air leak. Followed by CT surgery/Dr. Lynn. Cardiovascular: Septic shock- resolved Elevated troponin Type II NSTEMI secondary to demand ischemia Hyperlipidemia Holding lisinopril 30 mg daily/home medication. For dyslipidemia resume pravastatin 40 mg daily when clinically indicated Continue hydrocortisone wean Furosemide 40 mg IV twice daily diuresis Renal: Acute kidney injury (resolved) Secondary to shock, off pressors Frequent urine output monitoring Daily creatinine KVO IV fluid. Furosemide 40 mg IV daily Strict I/Os FEN/GI: Acute protein calorie malnutritionsevere Lactic acidosis- resolved Severe colitis Enterovirus colitis C. difficile colitis Hyperammonemia Hypokalemia Currently on lactulose 30 cc twice daily Tube feeding with vital 1.5 goal 55 cc now. Metoclopramide 5 mg 3 times daily ICU electrolyte protocol Daily BMP, magnesium, phosphorus Lactulose/polythene glycol twice daily Holding dicyclomine 20 mg 3 times daily Heme/ID: C. difficile colitis Enterovirus colitis Septic shock Healthcare associated multifocal pneumonia Possible gram-positive cocci bacteremia Early empyema 1 unit PRBCs transfused on 12/28 for hemoglobin 6.9, recheck CBC and transfuse to keep hemoglobin above 8 g% Vancomycin p.o. with pharmacy dosing Continue piperacillin/tazobactam and micafungin Bronchoscopy 12/19 with Klebsiella Pleural fluid 12/19 with Klebsiella's/Karla Pleural fluid 12/17 -g Karla albicans/glabrata Klebsiella, lactobacillus 12/17 -sputum -Klebsiella 12/17 blood-strep viridians/coag negative staph Infectious disease consulted and following. Actively Endocrine: Acute hypoglycemia- resolving. Sliding scale insulin Accu-Cheks every 6 hours to maintain euglycemia Prophylaxis: GI Prophylaxis Famotidine DVT Prophylaxis -- SCDs Subcu heparin Lines: 12/17 femoral triple-lumen catheter discontinued 12/23 12/17 right radial arterial line discontinued 12/21 12/17 right 28 Egyptian chest tube to -40 cm suction: removed 12/26 12/17 right 32 Egyptian chest tube to -40 cm suction 12/19 -right #32 Egyptian chest tube to -40 cm suction Level 2 follow-up
[2018-01-06] MEDS ORDERED: Chlorhexidine 4% Topical 120 APPLIC/120 ML Bottle TOPICAL SCH (15:00)
[2018-01-06] MEDS ORDERED: Sodium Chloride 0.9% Irr Bot 500 ML, ceFAZolin Inj 500 MG IRRIGATION SCH ×2 (15:00)
[2018-01-06] MEDS ORDERED: ceFAZolin Inj 2,000 MG in Sodium Chlor 0.9% Inj 80 ML IV.SIG SCH (15:00)
[2018-01-06] MEDS ORDERED: ceFAZolin 2 GM Premix Inj 2 GM/50 ML PIGGYBACK IV.SIG SCH (16:00)
--- NOTE | 2018-01-06 16:17 | P.PNCV ---
- Note Subjective/Hospital Course: pt now has 3 right sided chest tube #3 has 2-3 = air leak , #2 +1 all to 40cm suction pt now off pressors remains sedated on vent 55% fio2 +8 peep may need to re-eval for repeat ct scan in am pt will not tolerate one lung ventilation at this during any surgery will continue to monitor 12/23 pt now on 75% Fi02 peep down to 5 , no on flolan sub q emphysema with some improvement chest x 3 apical #3 +2 continuous air leak mid #2 + 1 air leak lower #1 no air leak all to 40 cm suction will monitor 12/26 Hemodynamically and clinically better One chest tube removed. 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 air leak at site all chest tube site area cleansed with chlorhexidine, iodoform gauze to old chest tube site vaseline gauze to other chest tubes / dry dressing applied / also # 2 chest tube had kink placed 2 tongue depressors along side of tube top prevent kinking and taped to chest pt still had +1-2 air leak in #3 chest tube 01/04 ct chest reviewed stable / improved, no air leak in chest tubes at present continue to monitor / no surgery indicated at present with: Improving pneumomediastinum, pneumopericardium and subcutaneous emphysema. Near complete resolution of previous right pneumothorax. 01/[address] Joseph and Dr Garces pt does have air leak when turned to left +2 , discussed with Dr Marquez/ covering for Dr Lynn will proceed with surgery on Thursday right thoracotomy, decortication, bleb resection / discussed with Objective: Vital Signs - 24 hr 01/05/18 18:00 01/05/18 20:00 01/05/18 21:30 Temperature 99 F Pulse Rate 99 H 103 H Respiratory Rate 18 15 Blood Pressure 121/73 Pulse Oximetry 99 100 11/13/18 21:34 01/05/18 22:00 01/06/18 00:00 Temperature 98.3 F Pulse Rate 97 H 98 H 96 H Respiratory Rate 17 17 Blood Pressure 118/67 Pulse Oximetry 100 01/06/18 00:51 01/06/18 00:52 01/06/18 02:00 Temperature Pulse Rate 94 H 93 H Respiratory Rate 15 15 Blood Pressure Pulse Oximetry 100 01/06/18 04:00 01/06/18 06:00 01/06/18 07:00 Temperature 98.6 F Pulse Rate 104 H 101 H 101 H Respiratory Rate 19 17 Blood Pressure 127/73 127/76 Pulse Oximetry 100 100 01/06/18 07:50 01/06/18 07:53 01/06/18 08:00 Temperature 99.2 F Pulse Rate 100 H 103 H Respiratory Rate 17 20 15 Blood Pressure 136/86 Pulse Oximetry 100 100 01/06/18 09:00 01/06/18 10:00 01/06/18 10:52 Temperature Pulse Rate 97 H 101 H 101 H Respiratory Rate 26 H 25 H 23 Blood Pressure 124/67 112/63 Pulse Oximetry 100 100 01/06/18 10:53 01/06/18 11:00 01/06/18 12:00 Temperature Pulse Rate 100 H 96 H Respiratory Rate 18 22 18 Blood Pressure 114/65 109/63 Pulse Oximetry 100 100 100 01/06/18 13:00 01/06/18 14:00 01/06/18 15:00 Temperature Pulse Rate 96 H 99 H 104 H Respiratory Rate 21 21 24 Blood Pressure 102/59 L 120/67 117/69 Pulse Oximetry 100 98 98 GENERAL: pt sedated on vent , 235% fi02 SKIN: Warm and dry. HEAD: Normocephalic. EYES: No scleral icterus. No injection or drainage. NECK: Supple, trachea midline. No JVD or lymphadenopathy. CARDIOVASCULAR: Regular rate and rhythm without murmurs, gallops, or rubs. RESPIRATORY: Breath sounds equal bilaterally. No accessory muscle use. coarse bilaterally , chest tubes x 2 on right lateral chest wall , + air leak in #3 tube GASTROINTESTINAL: Abdomen soft, non-tender, nondistended. MUSCULOSKELETAL: No cyanosis, or edema. BACK: Nontender without obvious deformity. No CVA tenderness. Labs: Laboratory Results - last 12 hr 01/06/18 01/06/18 01/06/18 05:20 05:20 12:30 WBC 8.4 RBC 2.34 L Hgb 7.5 L Hct 22.8 L MCV 97.3 MCH 32.0 MCHC 32.9 RDW 14.8 Plt Count 444 MPV 8.0 Sodium 144 Potassium 3.0 L Chloride 103 Carbon Dioxide 32.3 H Anion Gap 9 BUN 25 H Creatinine 0.61 Estimated GFR Greater than 89 POC Glucose 121 H Random Glucose 109 H Calcium 8.7 Phosphorus 3.6 D Magnesium 2.1 Valproic Acid 34 L Result Diagrams: 01/06/18 05:20 01/06/18 05:20 - Plan (1) Respiratory failure Plan: on vent 35% for surgery on thursday (2) Pneumonia (1) Respiratory failure Qualifiers: Chronicity: acute Respiratory failure complication: hypoxia and hypercapnia Qualified Code(s): J96.01 - Acute respiratory failure with hypoxia; J96.02 - Acute respiratory failure with hypercapnia (2) Pneumonia Qualifiers: Pneumonia type: due to unspecified organism Laterality: bilateral Lung location: unspecified part of lung Qualified Code(s): J18.9 - Pneumonia, unspecified organism
--- NOTE | 2018-01-06 16:44 | P.PNPAL ---
Reason for Visit Reason for visit: a. To assist with evaluation and management of symptoms including: pain. b. To assist medical decision maker(s) with: better understanding of current medical conditions; weighing benefits/burdens of medical treatment options; making medical treatment decisions. Subjective Subjective/Interval History: palliative care follow-up for family support, further clarification of goals of care. Patient seen in medical ICU, remains intubated on mechanical ventilation. Sedated on propofol and fentanyl, unresponsive to verbal or tactile stimuli but appears comfortable. Currently on CPAP at 35% FiO2. Hemoglobin stable at 7.5. Cardiovascular surgery following, plan for right thoracotomy this incoming frightening. Case discussed with Dr. Joseph. Patient will probably require tracheostomy early next week if unable to wean over the weekend. Telephone conversation with patient's Luis. Medical update provided and plan of care reviewed. Patient reports that family has agreed to proceed with cardiothoracic surgery, aware that patient might require tracheostomy sometime next week. Plan of care was reviewed in detail, patient's appreciative of care provided to patient. Spiritual services offered and declined. receptive to palliative care follow-ups as needed. Advance Directives Living Will: Never completed Health Care Surrogate: Never completed Durable Power of V Belt Skiver: Never completed Health Care Surrogate Name and Number: HCP Luis Woodruff Objective Vital Signs: Vital Signs 01/05/18 18:00 01/05/18 20:00 01/05/18 21:30 Temperature 99 F Pulse Rate 99 H 103 H Respiratory Rate 18 15 Blood Pressure 121/73 Pulse Oximetry 99 100 01/05/18 21:34 01/05/18 22:00 01/06/18 00:00 Temperature 98.3 F Pulse Rate 97 H 98 H 96 H Respiratory Rate 17 17 Blood Pressure 118/67 Pulse Oximetry 100 01/06/18 00:51 01/06/18 00:52 01/06/18 02:00 Temperature Pulse Rate 94 H 93 H Respiratory Rate 15 15 Blood Pressure Pulse Oximetry 100 01/06/18 04:00 01/06/18 06:00 01/06/18 07:00 Temperature 98.6 F Pulse Rate 104 H 101 H 101 H Respiratory Rate 19 17 Blood Pressure 127/73 127/76 Pulse Oximetry 100 100 01/06/18 07:50 01/06/18 07:53 01/06/18 08:00 Temperature 99.2 F Pulse Rate 100 H 103 H Respiratory Rate 17 20 15 Blood Pressure 136/86 Pulse Oximetry 100 100 01/06/18 09:00 01/06/18 10:00 01/06/18 10:52 Temperature Pulse Rate 97 H 101 H 101 H Respiratory Rate 26 H 25 H 23 Blood Pressure 124/67 112/63 Pulse Oximetry 100 100 01/06/18 10:53 01/06/18 11:00 01/06/18 12:00 Temperature Pulse Rate 100 H 96 H Respiratory Rate 18 22 18 Blood Pressure 114/65 109/63 Pulse Oximetry 100 100 100 01/06/18 13:00 01/06/18 14:00 01/06/18 15:00 Temperature Pulse Rate 96 H 99 H 104 H Respiratory Rate 21 21 24 Blood Pressure 102/59 L 120/67 117/69 Pulse Oximetry 100 98 98 01/06/18 16:00 Temperature 99.5 F Pulse Rate 106 H Respiratory Rate 25 H Blood Pressure 130/76 Pulse Oximetry 98 Intake & Output 01/05/18 01/06/18 01/06/18 18:59 06:59 18:59 Intake Total 853 / 853 1066 / 1066 675 / 675 Output Total 2700 / 2700 1300 / 1300 Balance -1847 / -1847 -234 / -234 675 / 675 Weight 70.8 kg Intake: IV 200 / 200 400 / 400 675 / 675 Diprivan 1000 mg/100 ml Inj 1, 100 / 100 100 / 100 100 / 100 000 mg In 100 ml @ 5 MCG/KG/MIN 2.904 mls/hr IV.CONT TITRATE PRN Rx#:[id number] Mycamine Inj 150 MG In NS Inj 100 / 100 100 ML @ 100 mls/hr IV.SIG Q24H BENJAMIN Rx#:[id number] Zosyn 4.5 GM Premix 4.5 gm In 100 / 100 200 / 200 200 / 200 100 ml @ 200 mls/hr IV.SIG Q6H BENJAMIN Rx#:[id number] KCl 20 mEq Premix Inj 20 meq In 100 / 100 100 ml @ 50 mls/hr IV.SIG Q2H PRN Rx#:[id number] fentaNYL 10 mcg/mL Premix Drip 250 / 250 2,500 mcg In 250 ml @ 50 MCG/HR 5 mls/hr IV.SIG TITRATE PRN Rx #:[id number] Tube Feeding 453 / 453 416 / 416 Water Bolus Amount 200 / 200 250 / 250 Output: Urine 2500 / 2500 1000 / 1000 Stool 200 / 200 300 / 300 Other: Date of Last Bowel Movement 01/04/18 01/06/18 01/05/18 Physical Exam: CONSTITUTIONAL/GENERAL: Obese female intubated on mechanical ventilation resting in bed in no apparent distress. TUBES/LINES/DRAINS: ETT, OG, PIV's to bilat arms, bilateral soft wrist restraints, SCD's. Read catheter. SKIN: No jaundice, rashes, or lesions. Ecchymoses on upper extremities. Skin temperature appropriate. Not diaphoretic. HEAD: Atraumatic. Normocephalic. EYES: Pupils equal and round and reactive. No scleral icterus. No injection or drainage. Fundi not examined. ENT: Unable to evaluate hearing, sedated. Nose without bleeding or purulent drainage. Moist oral mucosa. ETT, OG in place. NECK: Trachea midline. Supple, nontender. CARDIOVASCULAR: Regular rate without murmurs, gallops, or rubs. Peripheral pulses symmetric. RESPIRATORY/CHEST: Symmetric, unlabored respirations. Coarse bilaterally, right more than left. Chest tube x 2 to right with moderate amount of clear yellow serous fluid. GASTROINTESTINAL: Abdomen soft, obese, nondistended. Bowel sounds present. Tolerating ongoing tube feeds. GENITOURINARY: Without palpable bladder distension. MUSCULOSKELETAL: Extremities without clubbing, cyanosis. Edema to bilateral upper extremities. No mottling or clubbing. NEUROLOGICAL: Sedated. Unresponsive to verbal or tactile stimuli. PSYCHIATRIC: Unable to evaluate, sedated. Diagnostic Tests Laboratory: Laboratory Results - last 72 hr 01/03/18 01/03/18 01/04/18 17:08 23:31 05:05 WBC 7.9 RBC 2.23 L Hgb 7.3 L Hct 21.5 L MCV 96.4 MCH 32.7 MCHC 33.9 RDW 14.8 Plt Count 362 MPV 8.2 Sodium Potassium Chloride Carbon Dioxide Anion Gap BUN Creatinine Estimated GFR POC Glucose 114 H 122 H Random Glucose Calcium Phosphorus Magnesium Valproic Acid 01/04/18 01/04/18 01/04/18 05:05 10:33 13:14 WBC RBC Hgb Hct MCV MCH MCHC RDW Plt Count MPV Sodium 140 Potassium 2.6 L* 3.9 D Chloride 95 L Carbon Dioxide 33.6 H Anion Gap 11 BUN 27 H Creatinine 0.70 Estimated GFR 84 L POC Glucose 112 H Random Glucose 113 H Calcium 7.9 L Phosphorus 5.7 H D Magnesium 1.9 Valproic Acid 01/04/18 01/05/18 01/05/18 17:53 00:02 05:23 WBC 9.0 RBC 2.34 L Hgb 7.8 L Hct 22.5 L MCV 96.3 MCH 33.2 MCHC 34.4 RDW 15.1 Plt Count 435 MPV 8.0 Sodium Potassium Chloride Carbon Dioxide Anion Gap BUN Creatinine Estimated GFR POC Glucose 143 H 128 H Random Glucose Calcium Phosphorus Magnesium Valproic Acid 01/05/18 01/05/18 01/05/18 05:23 11:48 18:22 WBC RBC Hgb Hct MCV MCH MCHC RDW Plt Count MPV Sodium 140 Potassium 3.3 L Chloride 96 L Carbon Dioxide 32.9 H Anion Gap 11 BUN 31 H Creatinine 0.71 Estimated GFR 83 L POC Glucose 117 H 152 H Random Glucose 98 Calcium 8.6 Phosphorus 5.0 H Magnesium 2.1 Valproic Acid 01/05/18 01/06/18 01/06/18 23:48 05:20 05:20 WBC 8.4 RBC 2.34 L Hgb 7.5 L Hct 22.8 L MCV 97.3 MCH 32.0 MCHC 32.9 RDW 14.8 Plt Count 444 MPV 8.0 Sodium 144 Potassium 3.0 L Chloride 103 Carbon Dioxide 32.3 H Anion Gap 9 BUN 25 H Creatinine 0.61 Estimated GFR Greater than 89 POC Glucose 113 H Random Glucose 109 H Calcium 8.7 Phosphorus 3.6 D Magnesium 2.1 Valproic Acid 34 L 01/06/18 12:30 WBC RBC Hgb Hct MCV MCH MCHC RDW Plt Count MPV Sodium Potassium Chloride Carbon Dioxide Anion Gap BUN Creatinine Estimated GFR POC Glucose 121 H Random Glucose Calcium Phosphorus Magnesium Valproic Acid Result Diagrams: 01/06/18 05:20 01/06/18 05:20 Microbiology: Microbiology 01/01/18 22:07 Aerobic Blood Culture - Final Blood - Peripheral No growth in 5 days Anaerobic Blood Culture - Final No growth in 5 days 01/01/18 19:45 Aerobic Blood Culture - Final Blood - Peripheral No growth in 5 days Anaerobic Blood Culture - Final No growth in 5 days 01/02/18 17:28 Gram Stain - Final Sputum - Endotracheal Sputum Culture - Final Klebsiella pneumoniae Procedures: 12/17/2017: Endotracheal intubation 12/17/2017: OGT placement 12/17/2017: Femoral central line placement 12/17/2017: Right-sided chest tube placement x 2 12/17/2017: Right radial arterial line placement 12/17/2017: Read catheter placement 12/21/2017:Right-sided chest tube placed #3 12/26/2017: CT #1 discontinued Assessment and Plan - Disease Oriented Problem List (1) Respiratory failure (2) Pneumonia (3) Septic shock - Symptom Scale (1) Pain 0-10 Scale: Unable to quantify Comment: History of chronic pain to back. Acute pain secondary to invasive interventions, bedbound due to critical illness. (2) Shortness of breath 0-10 Scale: Unable to quantify Comment: Currently intubated on mechanical ventilation. Pertinent Non-Medical Issues: Psychosocial: Patient was born and raised in [place], [place]. She has been to her , Luis, for approximately 20 years. She has 1 daughter, Margarita. She is a retired teacher. Spiritual: Faith bryson Legal: No advance directives completed. Ethical issues impacting care: No ethical issues identified. Important Contacts: Luis Woodruff, : [phone] Prognosis: Mrs. Woodruff is a 62-year-old female with multiple comorbidities and recent acute hospitalizations. Patient currently requiring mechanical ventilation, being treated for septic shock and bilateral aspiration pneumonias. Currently status post 3 chest tubes secondary to worsening emphysema. Has been evaluated by cardiothoracic surgery, poor surgical candidate at this time. Overall prognosis is guarded. Patient at a very high risk for further complications, continue decline and . Code Status: Full Code Plan: * CODE STATUS: Full code. * MEDICAL DECISION-MAKER: Patient unable to participate in medical decision making given clinical condition -intubated, sedated. No advance directives completed. As per [place] statute, healthcare proxy decision-maker falls to patient's Luis Woodruff. He has accepted this role and is fully supported by their family. * GOALS OF CARE: Goals of therapy remain aggressive. electing to proceed with right thoracotomy this incoming Thursday, likely tracheostomy placement early next week should patient is unable to wean off vent support over the weekend. * SYMPTOMS: = Pain: Acute on chronic. Patient with history of chronic back pain status post multiple surgical interventions/appliances in place. Following with pain doctor in [facility]. Currently on fentanyl drip, appears comfortable at the time of my visit. No other recommendations at this time. * Spiritual offered and declined. * Case discussed with bedside RN Cherelle and Dr. Joseph. * Ongoing emotional support and active listening provided. * Palliative care to continue to follow-up for emotional support and goals of care patient's clinical course continues to evolve. receptive to palliative care follow-ups. Time Spent Total Floor Time (mins): 27 (Total time to include review medical records since last visit, physical exam, goals of care conversation with patient's , case discussion with attending and bedside RN.) >50% Time in Counseling or Coordination of Care: Yes (Total visit time = 27 minutes; > 50% spent counseling/coordinating care) Attestation Attestation: To help prompt me to consider important information that might be impacting today's encounter and assessment, information from prior notes written by myself or my colleagues may have been "brought forward" into today's note. My signature on this note, however, is an attestation that I personally performed the exam, history, and/or decision-making noted today, and, unless otherwise indicated, the interactions with patient, family, and staff as well as the review of records all occurred today. I also attest that the listed assessment and stated plan reflect my best clinical judgment today based on the combination of historical information, prior notes, and today's exam/ interactions. When time spent is documented, it refers only to time spent today by the signer, or if indicated, combined time spent today by collaborating physician/nurse practitioner.
[2018-01-06] MEDS: Micafungin Inj 150 MG in Sodium Chlor 0.9% Inj 100 ML IV.SIG SCH (17:27)
[2018-01-06 18:40] LABS: Bilirubin,Urine Negative (Negative); Clarity,Urine Clear (Clear); Color,Urine Yellow (Yellw/Straw); Glucose,Urine (UA) Negative (Negative); Leukocyte Esterase,Urine Negative (Negative); Nitrite,Urine Negative (Negative); Specific Gravity,Urine 1.012 (1.002-1.035)
[2018-01-06] MEDS: QUEtiapine 25 MG Tablet PO SCH (21:43)
[2018-01-07] MEDS: Potassium Chlor 20 mEq Premix 20 MEQ/100 ML PIGGYBACK IV.SIG PRN ×2 (01:45→05:48)
[2018-01-07] MEDS: Insulin NovoLIN Regular Correctional Sugar Inj SQ SCH ×4 (01:45→18:47)
[2018-01-07] MEDS: Oral Hygiene Kit OROPHARYNG SCH ×4 (01:45→15:29)
[2018-01-07 04:36] LABS: Mean Corpuscular HGB Conc 33.2 % (32.0-36.0); Mean Corpuscular Hemoglobin 32.2 pg (27.0-34.0); Mean Corpuscular Volume 96.9 fL (80.0-100.0); Mean Platelet Volume 7.6 fL (7.0-11.0); Platelet Count 399 th/mm3 (150-450); Red Cell Distribution Width 15.3 % (11.6-17.2)
[2018-01-07 04:48] LABS: Hemoglobin 6.7 gm/dL (11.6-15.3)
--- NOTE | 2018-01-07 04:48 | XR ---
EXAM DATE: 01/07/2018 4:12 AM EST AGE/SEX: 62 years / Female INDICATIONS: Shortness of breath, possible pneumothorax. Patient has known masses in the right lung. CLINICAL DATA: This is the patient's subsequent encounter. Patient reports that signs and symptoms h ave been present for 1 month and indicates a pain score of Nonresponsive. MEDICAL/SURGICAL HISTORY: Hypertension. Chest tube, right. COMPARISON: [facility], CHEST 1V SINGLE AP, 01/04/2018. . FINDINGS: A single AP semierect portable view the chest was obtained and again demonstrates the endotracheal tu be in place with the tip 3 cm above the neli. The nasogastric tube remains in place. There are 2 ri ght-sided chest tubes again noted with no visualized pneumothorax. Cutaneous emphysema is again noted bilaterally which is mildly improved. There is mild hazy opacity in both lungs with no focal consoli dation. This appears mildly improved as well. The heart size is at the upper limits of normal. There is masslike opacity again noted in the right perihilar region. CONCLUSION: 1. Interval decrease in subcutaneous emphysema. 2 right-sided chest tubes remaining in place and no visualized pneumothorax. 2. Interval improvement in bilateral pulmonary opacity is well. 3. Masslike opacity in the right perihilar region. Electronically signed by: Evert Gomez MD 01/07/2018 4:46 AM EST
[2018-01-07 04:49] LABS: Hematocrit 20.3 % (35.0-46.0)
[2018-01-07] MEDS: Piperacil/Tazo 4.5 GM Premix 4.5 GM/100 ML BAG IV.SIG SCH ×4 (05:02→21:43)
[2018-01-07] MEDS: Propofol 1000 mg/100 ml Inj 1,000 MG/100 ML BOTTLE IV.CONT PRN ×4 (05:02→22:15)
[2018-01-07 05:06] LABS: Anion Gap 8 meq/L (5-15); Blood Urea Nitrogen 22 mg/dL (7-18); Calcium 8.6 mg/dL (8.5-10.1); Carbon Dioxide 31.5 meq/L (21.0-32.0); Chloride 110 meq/L (98-107); Glomerular Filtration Rate Greater Than 89 mL/min (>89); Glucose,Random 114 mg/dL (74-106); Magnesium 2.1 mg/dL (1.5-2.5); Phosphorus 3.4 mg/dL (2.5-4.9); Prealbumin 20 mg/dL (20-40); Sodium 149 meq/L (136-145)
[2018-01-07 05:39] LABS: Potassium 2.9 meq/L (3.5-5.1)
[2018-01-07] MEDS: Heparin - SQ 10,000 UNITS/ML Vial SQ SCH ×2 (05:48→14:14)
[2018-01-07] MEDS: Potassium Chloride 25 MEQ Effervescent Tablet NG/OG SCH (08:24)
[2018-01-07] MEDS: Polyethylene Glycol 3350 17 GM Packet PO SCH ×2 (08:25→21:43)
[2018-01-07] MEDS: Famotidine 20 MG Tablet PO SCH ×2 (08:25→21:43)
[2018-01-07] MEDS: Carboxymethylcellulose 0.5% Opth Drops 15 ML Bottle EACH EYE SCH ×2 (08:26→21:43)
[2018-01-07] MEDS: Chlorhexidine 0.12% Oral Kit 15 ML UDC OROPHARYNG SCH ×2 (08:26→21:42)
[2018-01-07] MEDS: Collagenase Oint 30 GM Tube TOPICAL SCH (08:26)
[2018-01-07] MEDS: Sodium Chloride 0.9% 2 ML Flush BID IV.FLUSH SCH ×2 (08:26→21:44)
[2018-01-07] MEDS: Senna/Docusate Sodium 8.6/50 MG Tablet PO SCH ×2 (08:26→21:44)
[2018-01-07] MEDS: fentaNYL 10 mcg/mL Premix Drip 2,500 MCG/250 ML BAG IV.SIG PRN (12:07)
--- NOTE | 2018-01-07 15:27 | P.PNCV ---
- Note Subjective/Hospital Course: pt now has 3 right sided chest tube #3 has 2-3 = air leak , #2 +1 all to 40cm suction pt now off pressors remains sedated on vent 55% fio2 +8 peep may need to re-eval for repeat ct scan in am pt will not tolerate one lung ventilation at this during any surgery will continue to monitor 12/23 pt now on 75% Fi02 peep down to 5 , no on flolan sub q emphysema with some improvement chest x 3 apical #3 +2 continuous air leak mid #2 + 1 air leak lower #1 no air leak all to 40 cm suction will monitor 12/26 Hemodynamically and clinically better One chest tube removed. 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 air leak at site all chest tube site area cleansed with chlorhexidine, iodoform gauze to old chest tube site vaseline gauze to other chest tubes / dry dressing applied / also # 2 chest tube had kink placed 2 tongue depressors along side of tube top prevent kinking and taped to chest pt still had +1-2 air leak in #3 chest tube 01/04 ct chest reviewed stable / improved, no air leak in chest tubes at present continue to monitor / no surgery indicated at present with: Improving pneumomediastinum, pneumopericardium and subcutaneous emphysema. Near complete resolution of previous right pneumothorax. 01/[address] Joseph and Dr Garces pt does have air leak when turned to left +2 , discussed with Dr Marquez/ covering for Dr Lynn will proceed with surgery on Thursday right thoracotomy, decortication, bleb resection / discussed with 01/07 pt on CPAP trials, still has + 2 air leak #3 marked chest tube for surgery on am Objective: Vital Signs - 24 hr 01/06/18 16:00 01/06/18 16:25 01/06/18 17:00 Temperature 99.5 F Pulse Rate 106 H 110 H Respiratory Rate 25 H 30 H 23 Blood Pressure 130/76 144/84 H Pulse Oximetry 98 99 99 01/06/18 18:00 01/06/18 19:00 01/06/18 20:00 Temperature 97.8 F Pulse Rate 97 H 99 H 98 H Respiratory Rate 18 19 17 Blood Pressure 113/65 125/71 121/68 Pulse Oximetry 98 99 99 01/06/18 20:27 01/06/18 20:29 01/06/18 21:00 Temperature Pulse Rate 94 H 107 H Respiratory Rate 19 19 18 Blood Pressure 128/74 Pulse Oximetry 100 100 01/06/18 22:00 01/06/18 23:00 01/07/18 00:00 Temperature Pulse Rate 102 H 100 H 100 H Respiratory Rate 16 17 19 Blood Pressure 120/71 121/66 122/74 Pulse Oximetry 98 98 98 01/07/18 00:35 01/07/18 00:39 01/07/18 01:00 Temperature Pulse Rate 99 H 107 H Respiratory Rate 24 23 19 Blood Pressure 128/76 Pulse Oximetry 99 98 01/07/18 02:00 01/07/18 03:00 01/07/18 04:00 Temperature Pulse Rate 102 H 106 H 111 H Respiratory Rate 17 20 18 Blood Pressure 123/69 132/74 154/85 H Pulse Oximetry 98 99 97 01/07/18 04:47 01/07/18 04:48 01/07/18 05:00 Temperature Pulse Rate 105 H 105 H Respiratory Rate 17 16 21 Blood Pressure 132/78 Pulse Oximetry 100 99 01/07/18 06:00 01/07/18 07:00 01/07/18 08:00 Temperature 98.7 F Pulse Rate 101 H 101 H 101 H Respiratory Rate 17 18 19 Blood Pressure 118/76 136/81 137/82 Pulse Oximetry 98 98 100 01/07/18 08:54 01/07/18 09:00 01/07/18 10:00 Temperature Pulse Rate 112 H 112 H 114 H Respiratory Rate 28 H 30 H 31 H Blood Pressure 141/83 H 140/82 Pulse Oximetry 99 100 100 01/07/18 10:05 01/07/18 10:30 01/07/18 11:00 Temperature 99.5 F Pulse Rate 114 H 112 H 114 H Respiratory Rate 32 H 32 H 29 H Blood Pressure 140/82 153/86 H 146/87 H Pulse Oximetry 100 96 100 01/07/18 11:30 01/07/18 11:36 01/07/18 12:00 Temperature 98.8 F Pulse Rate 109 H 105 H 111 H Respiratory Rate 27 H 24 25 H Blood Pressure 148/87 H 136/78 Pulse Oximetry 100 100 96 01/07/18 12:04 01/07/18 13:00 01/07/18 13:48 Temperature 98.8 F Pulse Rate 109 H 104 H 101 H Respiratory Rate 32 H 30 H 25 H Blood Pressure 136/78 141/75 H 141/73 H Pulse Oximetry 100 100 100 01/07/18 14:15 Temperature Pulse Rate Respiratory Rate 24 Blood Pressure Pulse Oximetry GENERAL: lethargic grimaces to pain SKIN: Warm and dry. large chest tube dressing right chest wall HEAD: Normocephalic. EYES: No scleral icterus. No injection or drainage. NECK: Supple, trachea midline. No JVD or lymphadenopathy. CARDIOVASCULAR: Regular rate and rhythm without murmurs, gallops, or rubs. RESPIRATORY: Breath sounds equal bilaterally. No accessory muscle use. chest tube x 2 right lateral chest wall GASTROINTESTINAL: Abdomen soft, non-tender, nondistended. MUSCULOSKELETAL: No cyanosis, or edema. BACK: Nontender without obvious deformity. No CVA tenderness. Labs: Laboratory Results - last 12 hr 12/28/17 01/07/18 01/07/18 10:47 03:12 03:12 WBC 8.0 RBC 2.10 L Hgb 6.7 L* Hct 20.3 L* MCV 96.9 MCH 32.2 MCHC 33.2 RDW 15.3 Plt Count 399 MPV 7.6 Sodium 149 H Potassium 2.9 L* Chloride 110 H Carbon Dioxide 31.5 Anion Gap 8 BUN 22 H Creatinine 0.50 Estimated GFR Greater than 89 POC Glucose Random Glucose 114 H Calcium 8.6 Phosphorus 3.4 Magnesium 2.1 Prealbumin 20 Blood Type Blood Type Recheck Antibody Screen MTS Gel Crossmatch See Detail 01/07/18 01/07/18 01/07/18 03:12 11:44 12:25 WBC RBC Hgb Hct MCV MCH MCHC RDW Plt Count MPV Sodium Potassium 3.9 D Chloride Carbon Dioxide Anion Gap BUN Creatinine Estimated GFR POC Glucose 119 H Random Glucose Calcium Phosphorus Magnesium Prealbumin Blood Type O Positive Blood Type Recheck Not needed Antibody Screen Negative MTS Gel Crossmatch See Detail Result Diagrams: 01/07/18 03:12 01/07/18 12:25 - Plan (1) Respiratory failure Plan: on vent 35% / CPAP trials for surgery on thursday (2) Pneumonia (1) Respiratory failure Qualifiers: Chronicity: acute Respiratory failure complication: hypoxia and hypercapnia Qualified Code(s): J96.01 - Acute respiratory failure with hypoxia; J96.02 - Acute respiratory failure with hypercapnia (2) Pneumonia Qualifiers: Pneumonia type: due to unspecified organism Laterality: bilateral Lung location: unspecified part of lung Qualified Code(s): J18.9 - Pneumonia, unspecified organism
--- NOTE | 2018-01-07 17:22 | P.PNCC ---
Subjective Subjective Remarks/Hospital Course: This is a 62yF who was originally admitted on 11/23 with a diagnosis of colitis, found to have enterovirus. discharged on 12/11 at that time on PO vancomycin, but came back on 12/13 with altered mental status and hypoglycemia, again discharged on 12/15. She was mildly fatigued on 12/16 according to her and asked to wait another day before traveling back to her home in [place]. This morning, she was unarousable and her called 911. She was intubated upon arrival to the emergency department for agonal respirations. CXR demonstrates bilateral multifocal pneumonia. She is febrile, hypotensive. CVL placed in the ER and vasopressors initiated after 2L bolus crystalloid. CT chest/abd/pelvis demonstrates right pneumothorax, densely consolidated right lower lobe, bilateral pulmonary infiltrates, evidence of ongoing colitis. Patient continue to be unstable. Immediately after identifying ptx on CT scan, I emergently placed right chest tube with some improvements in hemodynamics, but ongoing distributive shock persists. I placed arterial line. No additional information available from the patient, ROS unobtainable. In discussion with the , she has not had any new complaints in the 48h she was home, and other than mild fatigue last night, no new complaints. She was able to walk to the bathroom without assistance yesterday. 12/18: shock remains. now on levophed, vasopressin, phenylephrine. second chest tube placed overnight for worsening SQ air. acidosis remains and is severe. 12/19: Afebrile. Remains on vasopressin drip only. On stress dose hydrocortisone. Evaluated by CT surgery. Not a candidate for intervention at the present time. Chest tube continues to leak. Epoprostenol added today 12/20: Afebrile. FiO2 has decreased and is currently 70%. Currently replacing potassium, phosphorus and magnesium. Recheck later this afternoon. Less chest tube leak today down to 1 chamber. 12/21: Overnight, worsening subcutaneous emphysema. A third chest tube placed by overnight laser print operator after discussion with cardiothoracic surgery. Currently hemodynamically stable. Replacing phosphorus today. To be evaluated by CT surgery today. 12/22: Remains sedated, orally intubated on mechanical ventilation. Persistent air leak and chest tube noted. 12/23: Remains sedated, orally intubated on mechanical ventilation. Air leak persists though slightly improved. PEEP at +5 FiO2 55%, inhaled Flolan continues. Central line replaced with right IJ triple-lumen catheter. 12/24: Remains sedated, orally intubated on mechanical ventilation. 1+ air leak from chest tube 3 noted. PEEP +5, FiO2 60%, inhaled Flolan continues. Decreasing subcutaneous emphysema noted. 12/25: Remains sedated, orally improved on mechanical ventilation. 1+ for leak from chest tube 2. PEEP +5, FiO2 50%. Starting to titrate inhaled Flolan down today. Initiating Lasix to mobilize fluid. 12/26: remains intubated. air leak continues from chest tube #3. drainage out of #1 and #2 are very serous. #1 was removed by myself today. all chest tube dressings changed by me today. repeat CXR pending. very volume overloaded. starting to diurese. off vasopressors. off pathway: still high fio2 requirements. 12/27: good diuresis overnight. very hypokalemic today and aggressively replacing. CXR unchanged. air leak unchanged. long discussion over long-term and short-term prognosis and plan of care with entire family today. all questions answered. 12/28: Continues to diurese. Remains on mechanical ventilation. Positive air leak in chest tube 3. 1 unit PRBCs transfused earlier for hemoglobin 6.9. 12/29: Remains on mechanical ventilation. Increasing subcutaneous emphysema noted. Air leak stopped and chest tube #2 and 3 currently. Flolan being titrated down. Chest x-ray shows appropriate positioning of 2 chest tubes with the more medial small right pneumothorax with significant subcutaneous emphysema bilaterally. Patient remains off pressors and is being diuresed to mobilize fluid. 12/30: volume removal continues. Cr still at baseline. fio2 down to 40% and off inhaled Flolan. discussed with Dr. Lynn: will need to wait at least until next week for VATS. Will need trach going forward: discussed with family and they are agreeable. Dr. Lynn asked that both chest tubes remain in place. air leak persists. remains intubated and sedated. 12/31: Sedated, orally intubated on mechanical ventilation. On 40% FiO2 PEEP + 5. Positive air leak in chest tube [address] surgery planning for VATS next week, will need tracheostomy coordinated as well. 01/01: Remains sedated, orally intubated on mechanical ventilation. PEEP +5, FiO2 35%. Being diuresed. 01/02: Sedated, orally intubated on mechanical ventilation. PEEP +5, FiO2 35%. Intermittent air leak in chest tube 3. Being diuresed 01/03: persistent air leak. hypoxia improving. discussed case with Dr. Lynn- he would like pre-operative CT chest for surgical planning. we also discussed timing of tracheostomy: it would be easier surgically to have ett in place to place double-lumen ett, so he would prefer to keep ett until after operation, and then proceed with tracheostomy. tentatively VATS planned for Friday 01/05. 01/04: No events over the night. Patient remains sedated and intubated, sedation achieved with fentanyl and propofol. T-max of 100.2 over the last 24 hours. I/O 3770/3130. Chest tubes remain on suction. 01/05: T-max 99.3. Currently afebrile. Difficulty with weaning from ventilator noted. VATS currently on hold per CT surgery. 01/06: Resting comfortably in bed in no acute distress. Plan for thoracotomy rested on Thursday. Currently on CPAP trial. Potassium being replaced. SUBJECTIVE: 01/07: Resting complaint bed in no acute distress. Plan for thoracotomy tomorrow a.m. 730. Currently on CPAP trial. Transfuse when he PRBC today. Hemoglobin currently 9.6 potassium 3.9. Objective Vital Signs / I&O: Vital Signs 01/06/18 18:00 01/06/18 19:00 01/06/18 20:00 Temperature 97.8 F Pulse Rate 97 H 99 H 98 H Respiratory Rate 18 19 17 Blood Pressure 113/65 125/71 121/68 Pulse Oximetry 98 99 99 01/06/18 20:27 01/06/18 20:29 01/06/18 21:00 Temperature Pulse Rate 94 H 107 H Respiratory Rate 19 19 18 Blood Pressure 128/74 Pulse Oximetry 100 100 01/06/18 22:00 01/06/18 23:00 01/07/18 00:00 Temperature Pulse Rate 102 H 100 H 100 H Respiratory Rate 16 17 19 Blood Pressure 120/71 121/66 122/74 Pulse Oximetry 98 98 98 01/07/18 00:35 01/07/18 00:39 01/07/18 01:00 Temperature Pulse Rate 99 H 107 H Respiratory Rate 24 23 19 Blood Pressure 128/76 Pulse Oximetry 99 98 01/07/18 02:00 01/07/18 03:00 01/07/18 04:00 Temperature Pulse Rate 102 H 106 H 111 H Respiratory Rate 17 20 18 Blood Pressure 123/69 132/74 154/85 H Pulse Oximetry 98 99 97 01/07/18 04:47 01/07/18 04:48 01/07/18 05:00 Temperature Pulse Rate 105 H 105 H Respiratory Rate 17 16 21 Blood Pressure 132/78 Pulse Oximetry 100 99 01/07/18 06:00 01/07/18 07:00 01/07/18 08:00 Temperature 98.7 F Pulse Rate 101 H 101 H 101 H Respiratory Rate 17 18 19 Blood Pressure 118/76 136/81 137/82 Pulse Oximetry 98 98 100 01/07/18 08:54 01/07/18 09:00 01/07/18 10:00 Temperature Pulse Rate 112 H 112 H 114 H Respiratory Rate 28 H 30 H 31 H Blood Pressure 141/83 H 140/82 Pulse Oximetry 99 100 100 01/07/18 10:05 01/07/18 10:30 01/07/18 11:00 Temperature 99.5 F Pulse Rate 114 H 112 H 114 H Respiratory Rate 32 H 32 H 29 H Blood Pressure 140/82 153/86 H 146/87 H Pulse Oximetry 100 96 100 01/07/18 11:30 01/07/18 11:36 01/07/18 12:00 Temperature 98.8 F Pulse Rate 109 H 105 H 111 H Respiratory Rate 27 H 24 25 H Blood Pressure 148/87 H 136/78 Pulse Oximetry 100 100 96 01/07/18 12:04 01/07/18 13:00 01/07/18 13:48 Temperature 98.8 F Pulse Rate 109 H 104 H 101 H Respiratory Rate 32 H 30 H 25 H Blood Pressure 136/78 141/75 H 141/73 H Pulse Oximetry 100 100 100 01/07/18 14:15 01/07/18 15:45 Temperature Pulse Rate 109 H Respiratory Rate 24 22 Blood Pressure Pulse Oximetry 97 Intake & Output 01/06/18 01/07/18 01/07/18 18:59 06:59 18:59 Intake Total 1542 / 1542 1264 / 1264 1050 / 1050 Output Total 1500 / 1500 650 / 650 Balance 42 / 42 614 / 614 1050 / 1050 Weight 69.4 kg Intake: IV 875 / 875 600 / 600 650 / 650 Diprivan 1000 mg/100 ml Inj 1, 100 / 100 200 / 200 200 / 200 000 mg In 100 ml @ 5 MCG/KG/MIN 2.904 mls/hr IV.CONT TITRATE PRN Rx#:[id number] Mycamine Inj 150 MG In NS Inj 100 / 100 100 ML @ 100 mls/hr IV.SIG Q24H BENJAMIN Rx#:[id number] Zosyn 4.5 GM Premix 4.5 gm In 300 / 300 200 / 200 100 / 100 100 ml @ 200 mls/hr IV.SIG Q6H BENJAMIN Rx#:[id number] KCl 20 mEq Premix Inj 20 meq In 100 / 100 200 / 200 100 / 100 100 ml @ 50 mls/hr IV.SIG Q2H PRN Rx#:[id number] fentaNYL 10 mcg/mL Premix Drip 250 / 250 250 / 250 2,500 mcg In 250 ml @ 50 MCG/HR 5 mls/hr IV.SIG TITRATE PRN Rx #:[id number] Tube Feeding 417 / 417 464 / 464 Water Bolus Amount 250 / 250 200 / 200 Intake (Blood Product) Amt 400 / 400 Rbc As-3 Leukoreduced Unit 400 / 400 [id number] Output: Urine 1200 / 1200 500 / 500 Stool 300 / 300 100 / 100 Chest Tube Drainage 0 / 0 50 / 50 #2 Right 0 / 0 #3 Right Upper 0 / 0 50 / 50 Other: Post Void Residual 800 Date of Last Bowel Movement 01/05/18 01/07/18 01/07/18 Result Diagrams: 01/07/18 15:55 01/07/18 12:25 Other Results: Microbiology 01/01/18 22:07 Blood - Peripheral Aerobic Blood Culture - Final No growth in 5 days 01/01/18 22:07 Blood - Peripheral Anaerobic Blood Culture - Final No growth in 5 days 01/01/18 19:45 Blood - Peripheral Aerobic Blood Culture - Final No growth in 5 days 01/01/18 19:45 Blood - Peripheral Anaerobic Blood Culture - Final No growth in 5 days 01/02/18 17:28 Sputum - Endotracheal Gram Stain - Final 01/02/18 17:28 Sputum - Endotracheal Sputum Culture - Final Klebsiella pneumoniae 12/19/17 11:30 Bronchial Washings - Bronchial Acid Fast Bacilli Smear - Final No acid fast bacilli seen 12/19/17 11:30 Bronchial Washings - Bronchial Mycobacterial Culture - Preliminary No growth in 2 weeks 12/19/17 11:30 Bronchial Washings - Bronchial Fungal Smear - Final Rare budding yeast 12/19/17 11:30 Bronchial Washings - Bronchial Fungal Culture - Preliminary 12/17/17 15:55 Fluid - Pleural fluid Gram Stain - Final 12/17/17 15:55 Fluid - Pleural fluid Body Fluid Culture - Final Lactobacillus rhamnosus Karla glabrata Klebsiella pneumoniae 12/19/17 00:56 Fluid - Pleural fluid Gram Stain - Final 12/19/17 00:56 Fluid - Pleural fluid Body Fluid Culture - Final Karla glabrata Lactobacillus rhamnosus 12/19/17 00:30 Fluid - Pleural fluid Gram Stain - Final 12/19/17 00:30 Fluid - Pleural fluid Body Fluid Culture - Final Klebsiella pneumoniae Karla albicans Karla glabrata Lactobacillus rhamnosus 12/17/17 15:55 Other - Final 12/17/17 08:24 Blood - Peripheral Aerobic Blood Culture - Final No growth in 5 days 12/17/17 08:24 Blood - Peripheral Anaerobic Blood Culture - Final No growth in 5 days 12/17/17 08:10 Blood - Peripheral Aerobic Blood Culture - Final No growth in 5 days 12/17/17 08:10 Blood - Peripheral Anaerobic Blood Culture - Final Staphylococcus coag negative Viridans streptococcus grp 12/19/17 11:30 Bronchial - Bronchial Gram Stain - Final 12/19/17 11:30 Bronchial - Bronchial Bronchial Culture - Final Klebsiella pneumoniae 12/17/17 15:54 Sputum - Endotracheal Gram Stain - Final 12/17/17 15:54 Sputum - Endotracheal Sputum Culture - Final Klebsiella pneumoniae 12/17/17 15:55 Stool Stool for WBCs - Final Few WBC's 12/17/17 13:54 Urine - Catheterized Urine Streptococcus pneumoniae Antigen ( M - Final Presumptive negative for streptococcus pneumoniae antigen, suggesting no current or recent infection. Infection due to Streptococcus pneumoniae cannot be ruled out since the antigen present in the sample may be below the detection limit of the test. 12/17/17 13:54 Urine - Catheterized Urine Legionella Antigen - Final Presumptive negative for Legionella pneumophila serogroup 1 antigen in urine, suggesting no recent or recurrent infection. Infection due to Legionella cannot be ruled out since other serogroups and species may cause disease, antigen may not be present in urine in early infection, and the level of antigen present in the urine may be below the detection limit of the test. 12/17/17 15:55 Nasal Aspirate Influenza Types A,B Antigen - Final Negative for FLU A and B antigen Infection due to influenza A or B cannot be ruled out since the antigen present in the sample may be below the detection limit of the test. Imaging: Chest X-Ray 12/17/17 00:00 CONCLUSION: 1. Persistent bilateral airspace infiltrates. 2. Interval placement of a right-sided thoracostomy tube. There does appear to be an apical lateral 1.5 cm right pneumothorax. 3. Extensive subcutaneous and deep tissue emphysematous changes about the right hemithorax. Chest X-Ray 12/17/17 00:00 CONCLUSION: Right-sided chest tube with slight increase in right pneumothorax compared with earlier exam. Slight increase in left basilar airspace disease since earlier exam. Slight worsening of subcutaneous air with extension into the left hemithorax and neck. Chest X-Ray 12/17/17 08:02 CONCLUSION: Satisfactory support line and tube positioning. Bilateral infiltrates. Head CT 12/17/17 08:02 CONCLUSION: 1. 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 2. Otherwise negative. . Abdomen/Pelvis CT 12/17/17 10:45 CONCLUSION: 1. Moderate diffuse colonic wall thickening exaggerated by lack of colonic distention. This may be due to low-protein state/edema. However, differential considerations include infectious and inflammatory colitis. 2. Moderate-sized right hydropneumothorax with airspace disease in the lung bases as described on chest CT. 3. Additional ancillary findings, as above. Chest CT 12/17/17 10:45 CONCLUSION: 1. Small to moderate-sized right-sided hydropneumothorax. 2. Right lower lobe consolidation with air bronchograms. Differential considerations include aspiration and lobar pneumonia. 3. Patchy diffuse groundglass opacities most prominently in the upper lobes bilaterally. Differential considerations include bronchopneumonia, atypical infection and atypical pulmonary edema. 4. Mild mediastinal adenopathy, likely reactive. Chest X-Ray 12/17/17 22:00 CONCLUSION: Placement of second right-sided chest tube with near complete resolution of previous right pneumothorax. Chest X-Ray 12/18/17 05:00 CONCLUSION: 1. Stable bilateral multifocal consolidative infiltrates. 2. 2 right chest drainage tubes in place; no pneumothorax seen. Chest X-Ray 12/19/17 00:00 CONCLUSION: 1. 2 right chest tubes remain present and there is now a small pneumothorax. There is also increased right chest wall soft tissue air. 2. Stable severe bilateral airspace consolidation. Chest X-Ray 12/19/17 05:00 CONCLUSION: Findings suggest reaccumulation of right pneumothorax with both right-sided chest tubes unchanged in position. Chest X-Ray 12/19/17 10:08 CONCLUSION: 1. 2 right chest tubes are present and no pneumothorax is identified. 2. Stable bilateral airspace consolidation primarily in the lower lung zones. Chest X-Ray 12/20/17 06:00 CONCLUSION: 1. Decrease in size of right apical pneumothorax to 4 mm. 2. Diffuse bilateral airspace consolidation similar in severity and distribution to prior. Chest X-Ray 12/21/17 02:48 CONCLUSION: 1. Large amount of chest wall and neck soft tissue emphysema present, much worse than yesterday. No definite pneumothorax. Right chest tubes remain in place. 2. Worsening bilateral airspace disease, left more so than right. Chest CT 12/21/17 04:03 CONCLUSION: 1. Moderate size right pneumothorax without tension. Also pneumopericardium and pneumomediastinum. Massive chest wall emphysema. 2. Bilateral airspace disease. 3.7 cm bilobed cavitary lesion of the right lower lobe. 3. Small left pleural effusion. No left pneumothorax. Chest X-Ray 12/21/17 07:31 CONCLUSION: Progression of the extensive subcutaneous emphysema with [address] on the right. Chest X-Ray 12/22/17 06:00 CONCLUSION: 1. Decreased chest wall emphysema. No pneumothorax seen. 2. Diffuse bilateral airspace disease without significant change. Chest X-Ray 12/23/17 13:34 CONCLUSION: 1. Interval placement of right internal jugular central venous line with no pneumothorax. 2. 3 right-sided chest tubes remain in place. 3. Interval improvement in subcutaneous emphysema. 4. The right costophrenic angle with consolidative opacity in the right lung base. Chest X-Ray 12/26/17 00:00 CONCLUSION: 1. Lines and tubes remain in place. 2. No significant interval change with persistent mild diffuse bilateral pulmonary opacity. Chest X-Ray 12/26/17 05:00 CONCLUSION: Decreasing subcutaneous emphysema. Otherwise no change. Chest X-Ray 12/27/17 05:00 CONCLUSION: Stable chest appearance Chest X-Ray 12/29/17 07:29 CONCLUSION: 1. Significant interval increase in bilateral subcutaneous emphysema with small apparent medial right pneumothorax now noted. 2. The patient remains intubated and there are 2 right-sided chest tubes in place. Chest X-Ray 12/30/17 07:39 CONCLUSION: 1. No significant change. 2. No evidence of pneumothorax. 3. Stable supportive devices. 4. Extensive airspace disease remains evident throughout both lungs without significant improvement. Chest X-Ray 12/31/17 05:00 CONCLUSION: Little change from prior exam Chest CT 01/03/18 11:56 CONCLUSION: 1. Consolidation at both lung bases has improved. Cavitary lesions on the right are slightly larger as measured above. 2. Improving pneumomediastinum, pneumopericardium and subcutaneous emphysema. Near complete resolution of previous right pneumothorax. 2 right chest tubes present. Trace pleural fluid present. 3. Patchy airspace disease remains in the lungs probably with some fibrotic changes well. 4. Endotracheal tube and nasogastric tube in good position. Chest X-Ray 01/04/18 05:00 CONCLUSION: 1. Decreased lung volumes. Persistent bilateral pulmonary opacity. 2. Right-sided chest tubes. Bilateral subcutaneous emphysema. No evidence of pneumothorax. Chest X-Ray 01/07/18 06:00 CONCLUSION: 1. Interval decrease in subcutaneous emphysema. 2 right-sided chest tubes remaining in place and no visualized pneumothorax. 2. Interval improvement in bilateral pulmonary opacity is well. 3. Masslike opacity in the right perihilar region. Objective Remarks: GENERAL: Middle-aged lady, intubated and sedated, ill-appearing HEENT: Pupils are equal and reactive, sclerae are anicteric, orally intubated, + NGT NECK: Supple, no rigidity, no neck vein distention, no carotid bruit CHEST: Coarse breath sounds bilateral, no wheezes, + subcutaneous emphysema, 2 right-sided chest tubes on suction, no air leak noted CARDIOVASCULAR: Regular heart sounds, no murmurs appreciated ABDOMEN: Soft, nontender, nondistended, bowel sounds present, no hepatomegaly or splenomegaly appreciated MUSCULOSKELETAL: Extremities are warm and well perfused, peripheral pulses are present, 2+ pitting edema NEUROLOGICAL: Sedated and intubated, does not open eyes to voice stimuli and does not follow commands, withdraws to pain. Pupils are equal and reactive, no gaze deviation Assessment and Plan - Assessment and Plan Plan: Neuro/Psych: Acute metabolic encephalopathy Possible seizure disorder Currently on fentany/ propofol drips for sedation/analgesia while intubated Daily sedation vacation. Goal RASS -2 She was started on anticonvulsants on her initial admission 11/23. Valproic acid 500 mg 3 times daily. Recheck level 01/[address] 12/17- for acute disease EEG - Diffuse slowing consistent with a moderate diffuse encephalopathy. No epileptiform activity Acetaminophen 650 by tube every 6 hours as needed fever Continue quetiapine 25 mg daily/home medication Holding tizanidine 4 mg daily Respiratory: Acute hypoxic and hypercarbic respiratory failure- persistent Acute severe bilateral multifocal healthcare associated pneumonia Possible aspiration pneumonia Spontaneous right-sided tension pneumothorax Subcutaneous Emphysema Chest tube #1: 12/17- removed 12/26 Chest tube #2: 12/17 Chest tube #3: 12/19 CT surgery/Dr. Lynn following. CT thorax overnight 12/12 revealed significant 3.7 cm moderate right pneumothorax without tension. Pneumopericardium and significant subcutaneous emphysema. Vent bundle and bronchodilators PRVC mode 450/14/35% PEEP of 5 Patient is synchronized with the ventilator, no auto PEEP, Pip 27 Epoprostanol added 12/19, removed 12/29. Albuterol/ipratropium aerosols every 4 hours with albuterol aerosols every 2 hours as needed dyspnea Wean FiO2 for goal SPO2 greater than 90% Daily CXR VATS -tentatively planned for today currently on hold since no air leak. Followed by CT surgery/Dr. Lynn. Cardiovascular: Septic shock- resolved Elevated troponin Type II NSTEMI secondary to demand ischemia Hyperlipidemia Holding lisinopril 30 mg daily/home medication. For dyslipidemia resume pravastatin 40 mg daily when clinically indicated Continue hydrocortisone wean Furosemide 40 mg IV twice daily diuresis Renal: Acute kidney injury (resolved) Secondary to shock, off pressors Frequent urine output monitoring Daily creatinine KVO IV fluid. Furosemide 40 mg IV daily Strict I/Os FEN/GI: Acute protein calorie malnutritionsevere Lactic acidosis- resolved Severe colitis Enterovirus colitis C. difficile colitis Hyperammonemia Hypokalemia Currently on lactulose 30 cc twice daily Tube feeding with vital 1.5 goal 55 cc now. Metoclopramide 5 mg 3 times daily. N.p.o. after midnight ICU electrolyte protocol Daily BMP, magnesium, phosphorus Lactulose/polythene glycol twice daily Holding dicyclomine 20 mg 3 times daily Heme/ID: C. difficile colitis Enterovirus colitis Septic shock Healthcare associated multifocal pneumonia Possible gram-positive cocci bacteremia Early empyema 1 unit PRBCs transfused on 12/28 for hemoglobin 6.9, recheck CBC and transfuse to keep hemoglobin above 8 g% Transfuse 1 unit PRBCs 01/07. Vancomycin p.o. with pharmacy dosing Continue piperacillin/tazobactam and micafungin Bronchoscopy 12/19 with Klebsiella Pleural fluid 12/19 with Klebsiella's/Karla Pleural fluid 12/17 -g Karla albicans/glabrata Klebsiella, lactobacillus 12/17 -sputum -Klebsiella 12/17 blood-strep viridians/coag negative staph Infectious disease consulted and following. Actively Endocrine: Acute hypoglycemia- resolving. Sliding scale insulin Accu-Cheks every 6 hours to maintain euglycemia Prophylaxis: GI Prophylaxis Famotidine DVT Prophylaxis -- SCDs Subcu heparin Lines: 12/17 femoral triple-lumen catheter discontinued 12/23 12/17 right radial arterial line discontinued 12/21 12/17 right 28 Vietnamese chest tube to -40 cm suction: removed 12/26 12/17 right 32 Vietnamese chest tube to -40 cm suction 12/19 -right #32 Vietnamese chest tube to -40 cm suction Level 2 follow-up
[2018-01-07] MEDS: Micafungin Inj 150 MG in Sodium Chlor 0.9% Inj 100 ML IV.SIG SCH (17:40)
[2018-01-07] MEDS: QUEtiapine 25 MG Tablet PO SCH (21:43)
[2018-01-08] MEDS: Oral Hygiene Kit OROPHARYNG SCH ×4 (01:42→17:29)
[2018-01-08] MEDS: Insulin NovoLIN Regular Correctional Sugar Inj SQ SCH ×4 (01:42→17:29)
--- NOTE | 2018-01-08 04:46 | XR ---
EXAM DATE: 01/08/2018 4:22 AM EST AGE/SEX: 62 years / Female INDICATIONS: Pneumothorax. CLINICAL DATA: This is the patient's subsequent encounter. Patient reports that signs and symptoms h ave been present for 1 month and indicates a pain score of Nonresponsive. MEDICAL/SURGICAL HISTORY: Hypertension. . Chest tube, Right COMPARISON: [facility] [place] 1V SINGLE AP, 01/07/2018. . FINDINGS: Patchy bilateral parenchymal consolidation and right side predominant scarring with volume loss again noted and not significantly changed. No large effusion seen. No definite pneumothorax. 2 right chest tubes remain in place. Endotracheal tube tip is approximately 4 cm above the neli. Nasogastric tube courses in the stomach . CONCLUSION: No significant change. No perceptible pneumothorax. Electronically signed by: Pato Noel MD 01/08/2018 4:45 AM EST
[2018-01-08] MEDS: Propofol 1000 mg/100 ml Inj 1,000 MG/100 ML BOTTLE IV.CONT PRN ×4 (05:05→23:52)
[2018-01-08] MEDS: Piperacil/Tazo 4.5 GM Premix 4.5 GM/100 ML BAG IV.SIG SCH ×4 (05:05→22:23)
[2018-01-08] MEDS ORDERED: ceFAZolin 2 GM Premix Inj 2 GM/50 ML PIGGYBACK IV.SIG ONE (06:49)
[2018-01-08 07:10] LABS: Hematocrit 26.4 % (35.0-46.0); Mean Corpuscular HGB Conc 34.1 % (32.0-36.0); Mean Corpuscular Hemoglobin 32.9 pg (27.0-34.0); Mean Corpuscular Volume 96.6 fL (80.0-100.0); Platelet Count 306 th/mm3 (150-450); Red Blood Count 2.73 mil/mm3 (4.00-5.30); Red Cell Distribution Width 15.1 % (11.6-17.2); White Blood Count 13.4 th/mm3 (4.0-11.0)
[2018-01-08 07:15] LABS: Prothrombin Time 10.4 sec (9.8-11.6)
[2018-01-08] MEDS ORDERED: Sodium Chlor 0.9% Inj 500 ML IV.CONT ONE (07:26)
[2018-01-08] MEDS ORDERED: Sod Chloride 0.9% Inj 1,000 ML IV.CONT ONE (07:26)
[2018-01-08 07:39] LABS: Anion Gap 10 meq/L (5-15); Blood Urea Nitrogen 19 mg/dL (7-18); Calcium 8.5 mg/dL (8.5-10.1); Carbon Dioxide 28.3 meq/L (21.0-32.0); Chloride 111 meq/L (98-107); Glomerular Filtration Rate Greater Than 89 mL/min (>89); Glucose,Random 90 mg/dL (74-106); Magnesium 2.1 mg/dL (1.5-2.5); Phosphorus 4.1 mg/dL (2.5-4.9); Potassium 3.4 meq/L (3.5-5.1); Sodium 149 meq/L (136-145)
[2018-01-08] MEDS ORDERED: Post-op Orders (for Pharmacy) OTHER STA (10:24)
--- NOTE | 2018-01-08 10:38 | P.OP ---
- Preoperative Diagnosis (1) Loculated pleural effusion (2) Bronchopleural fistula Postoperative Diagnosis: same Date of procedure: 01/08/18 Procedure: Right thoracoscopic decortication, closure of bronchopleural fistula Debridement and irrigation of the prior chest tube wounds (3) Anesthesia: GETA Surgeon: Naheed Marquez MD Biostatistician: Pato Mcnulty Estimated blood loss (mL): 100 Pathology: other (pleural biopsies for culture and path) Operation and Findings: Specimen: pleural biopsies for culture and path Drains: 2-32F chest tubes Procedure Details After adequate general anesthesia the patient was placed in the left lateral decubitus position and the right chest was prepped and draped in usual manner. A posterior port incision was performed and electrocautery was used to obtain hemostasis and carry the dissection down through the fascia. The lung was stuck posteriorly and was gently mobilized with a Kittner. A port was initially placed posteriorly followed by the camera. Visualization was somewhat difficult, but improved as the lung was mobilized and decorticated. There was minimal serosanguineous fluid. A second anterior port was positioned at ~6th intercostal space.No blebs were visualized. The lung was completely mobilized and the chest was irrigated. The right lung was ventilated and a bronchopleural fistula was noted at the apex. The fistula and apex were treated with Tisseel. Pleural biopsies were sent to Pathology. A 2- 32F right angle chest tubes were positioned through the anterior port and a second stab incision just posterior to it. Each was and secured with a 0-silk suture. The lung was ventilated and no significant air leaks were found. The subcutaneous tissues of the posterior port was approximated running 2-0 Vicryl suture and the skin was approximated using running 4-0 Monocryl subcuticular stitch. The patients previous chest tube wounds were debrided, irrigated, and loosely closed. All sponge and history counts were correct at the close the procedure and the patient was transferred back to her room in the ICU.
[2018-01-08] MEDS ORDERED: fentaNYL Citrate Inj 250 MCG/5 ML Ampul ONE (11:05)
--- NOTE | 2018-01-08 11:46 | XR ---
EXAM DATE: 01/08/2018 11:42 AM EST AGE/SEX: 62 years / Female INDICATIONS: Central line placement. CLINICAL DATA: This is the patient's initial encounter. Patient reports that signs and symptoms have been present for 4 - 6 days and indicates a pain score of Nonresponsive. MEDICAL/SURGICAL HISTORY: Hypertension. . chest tube COMPARISON: [facility], CHEST 1V SINGLE AP, 01/08/2018. . FINDINGS: There are [address] on the right. There is no pneumothorax. The chest tube at the right base has been repositioned compared to prior exam. There is a new right jugular central venous cathet er. This appears just above the level the right atrium. The ET tubes in good position. There is diffuse bilateral infiltrate within the pulmonary parenchyma. CONCLUSION: 1. New right IJ central catheter in satisfactory position. 2. ET tube and chest tubes in satisfactory position. 3. Extensive bilateral pulmonary infiltrates. Electronically signed by: Lucas Yates MD 01/08/2018 11:44 AM EST
[2018-01-08] MEDS: Potassium Chloride 25 MEQ Effervescent Tablet NG/OG SCH (12:02)
[2018-01-08] MEDS: Famotidine 20 MG Tablet PO SCH ×2 (12:02→20:52)
[2018-01-08] MEDS: Carboxymethylcellulose 0.5% Opth Drops 15 ML Bottle EACH EYE SCH ×2 (12:03→20:54)
[2018-01-08] MEDS: Senna/Docusate Sodium 8.6/50 MG Tablet PO SCH ×2 (12:03→20:52)
[2018-01-08] MEDS: Chlorhexidine 0.12% Oral Kit 15 ML UDC OROPHARYNG SCH ×2 (12:03→20:53)
[2018-01-08] MEDS: Sodium Chloride 0.9% 2 ML Flush BID IV.FLUSH SCH ×2 (12:03→20:53)
[2018-01-08] MEDS: Polyethylene Glycol 3350 17 GM Packet PO SCH ×2 (12:03→20:52)
[2018-01-08] MEDS: Collagenase Oint 30 GM Tube TOPICAL SCH (12:04)
--- NOTE | 2018-01-08 14:05 | P.PNCC ---
Subjective Subjective Remarks/Hospital Course: This is a 62yF who was originally admitted on 11/23 with a diagnosis of colitis, found to have enterovirus. discharged on 12/11 at that time on PO vancomycin, but came back on 12/13 with altered mental status and hypoglycemia, again discharged on 12/15. She was mildly fatigued on 12/16 according to her and asked to wait another day before traveling back to her home in [place]. This morning, she was unarousable and her called 911. She was intubated upon arrival to the emergency department for agonal respirations. CXR demonstrates bilateral multifocal pneumonia. She is febrile, hypotensive. CVL placed in the ER and vasopressors initiated after 2L bolus crystalloid. CT chest/abd/pelvis demonstrates right pneumothorax, densely consolidated right lower lobe, bilateral pulmonary infiltrates, evidence of ongoing colitis. Patient continue to be unstable. Immediately after identifying ptx on CT scan, I emergently placed right chest tube with some improvements in hemodynamics, but ongoing distributive shock persists. I placed arterial line. No additional information available from the patient, ROS unobtainable. In discussion with the , she has not had any new complaints in the 48h she was home, and other than mild fatigue last night, no new complaints. She was able to walk to the bathroom without assistance yesterday. 12/18: shock remains. now on levophed, vasopressin, phenylephrine. second chest tube placed overnight for worsening SQ air. acidosis remains and is severe. 12/19: Afebrile. Remains on vasopressin drip only. On stress dose hydrocortisone. Evaluated by CT surgery. Not a candidate for intervention at the present time. Chest tube continues to leak. Epoprostenol added today 12/20: Afebrile. FiO2 has decreased and is currently 70%. Currently replacing potassium, phosphorus and magnesium. Recheck later this afternoon. Less chest tube leak today down to 1 chamber. 12/21: Overnight, worsening subcutaneous emphysema. A third chest tube placed by overnight fisher hoop net after discussion with cardiothoracic surgery. Currently hemodynamically stable. Replacing phosphorus today. To be evaluated by CT surgery today. 12/22: Remains sedated, orally intubated on mechanical ventilation. Persistent air leak and chest tube noted. 12/23: Remains sedated, orally intubated on mechanical ventilation. Air leak persists though slightly improved. PEEP at +5 FiO2 55%, inhaled Flolan continues. Central line replaced with right IJ triple-lumen catheter. 12/24: Remains sedated, orally intubated on mechanical ventilation. 1+ air leak from chest tube 3 noted. PEEP +5, FiO2 60%, inhaled Flolan continues. Decreasing subcutaneous emphysema noted. 12/25: Remains sedated, orally improved on mechanical ventilation. 1+ for leak from chest tube 2. PEEP +5, FiO2 50%. Starting to titrate inhaled Flolan down today. Initiating Lasix to mobilize fluid. 12/26: remains intubated. air leak continues from chest tube #3. drainage out of #1 and #2 are very serous. #1 was removed by myself today. all chest tube dressings changed by me today. repeat CXR pending. very volume overloaded. starting to diurese. off vasopressors. off pathway: still high fio2 requirements. 12/27: good diuresis overnight. very hypokalemic today and aggressively replacing. CXR unchanged. air leak unchanged. long discussion over long-term and short-term prognosis and plan of care with entire family today. all questions answered. 12/28: Continues to diurese. Remains on mechanical ventilation. Positive air leak in chest tube 3. 1 unit PRBCs transfused earlier for hemoglobin 6.9. 12/29: Remains on mechanical ventilation. Increasing subcutaneous emphysema noted. Air leak stopped and chest tube #2 and 3 currently. Flolan being titrated down. Chest x-ray shows appropriate positioning of 2 chest tubes with the more medial small right pneumothorax with significant subcutaneous emphysema bilaterally. Patient remains off pressors and is being diuresed to mobilize fluid. 12/30: volume removal continues. Cr still at baseline. fio2 down to 40% and off inhaled Flolan. discussed with Dr. Lynn: will need to wait at least until next week for VATS. Will need trach going forward: discussed with family and they are agreeable. Dr. Lynn asked that both chest tubes remain in place. air leak persists. remains intubated and sedated. 12/31: Sedated, orally intubated on mechanical ventilation. On 40% FiO2 PEEP + 5. Positive air leak in chest tube [address] surgery planning for VATS next week, will need tracheostomy coordinated as well. 01/01: Remains sedated, orally intubated on mechanical ventilation. PEEP +5, FiO2 35%. Being diuresed. 01/02: Sedated, orally intubated on mechanical ventilation. PEEP +5, FiO2 35%. Intermittent air leak in chest tube 3. Being diuresed 01/03: persistent air leak. hypoxia improving. discussed case with Dr. Lynn- he would like pre-operative CT chest for surgical planning. we also discussed timing of tracheostomy: it would be easier surgically to have ett in place to place double-lumen ett, so he would prefer to keep ett until after operation, and then proceed with tracheostomy. tentatively VATS planned for Friday 01/05. 01/04: No events over the night. Patient remains sedated and intubated, sedation achieved with fentanyl and propofol. T-max of 100.2 over the last 24 hours. I/O 3770/3130. Chest tubes remain on suction. 01/05: T-max 99.3. Currently afebrile. Difficulty with weaning from ventilator noted. VATS currently on hold per CT surgery. 01/06: Resting comfortably in bed in no acute distress. Plan for thoracotomy rested on Thursday. Currently on CPAP trial. Potassium being replaced. 01/07: Resting complaint bed in no acute distress. Plan for thoracotomy tomorrow a.m. 730. Currently on CPAP trial. Transfuse when he PRBC today. Hemoglobin currently 9.6 potassium 3.9. Subjective 01/08: Today, status post right thoracoscopic decortication, closure of bronchopleural fistula with debridement and irrigation of the prior chest tube wounds with placement of 2 #32 Liberian chest tubes by cardiothoracic surgery patellar procedure well. EBL 250. Adequate urine output. Appears stable. Objective Vital Signs / I&O: Vital Signs 01/07/18 14:15 01/07/18 15:00 01/07/18 15:45 Temperature Pulse Rate 108 H 109 H Respiratory Rate 24 30 H 22 Blood Pressure 144/78 H Pulse Oximetry 100 97 01/07/18 16:00 01/07/18 17:00 01/07/18 18:00 Temperature 99.5 F Pulse Rate 109 H 109 H 103 H Respiratory Rate 21 28 H 23 Blood Pressure 136/74 136/76 145/75 H Pulse Oximetry 98 98 100 01/07/18 19:00 01/07/18 20:00 01/07/18 20:29 Temperature 99.6 F Pulse Rate 97 H 101 H 97 H Respiratory Rate 17 19 18 Blood Pressure 140/79 148/81 H Pulse Oximetry 100 100 100 01/07/18 21:00 01/07/18 22:00 01/07/18 23:00 Temperature Pulse Rate 106 H 103 H 111 H Respiratory Rate 21 22 23 Blood Pressure 149/81 H 149/82 H 158/78 H Pulse Oximetry 100 100 96 01/08/18 00:00 01/08/18 01:00 01/08/18 02:00 Temperature Pulse Rate 108 H 100 H 96 H Respiratory Rate 22 18 18 Blood Pressure 156/88 H 138/77 139/76 Pulse Oximetry 100 100 100 01/08/18 03:00 01/08/18 03:28 01/08/18 04:00 Temperature 99.1 F Pulse Rate 98 H 95 H 102 H Respiratory Rate 20 18 18 Blood Pressure 148/78 H 151/79 H Pulse Oximetry 100 100 100 01/08/18 05:00 01/08/18 06:00 01/08/18 07:00 Temperature Pulse Rate 86 83 84 Respiratory Rate 15 17 14 Blood Pressure 144/82 H 147/83 H 151/80 H Pulse Oximetry 100 100 100 01/08/18 11:07 01/08/18 11:50 Temperature Pulse Rate 85 Respiratory Rate 14 15 Blood Pressure Pulse Oximetry 100 Intake & Output 01/07/18 01/08/18 01/08/18 18:59 06:59 18:59 Intake Total 1852 / 1852 749 / 749 3750 / 3750 Output Total 1800 / 1800 1500 / 1500 1150 / 1150 Balance 52 / 52 -751 / -751 2600 / 2600 Weight 69 kg Intake: IV 850 / 850 400 / 400 150 / 150 Diprivan 1000 mg/100 ml Inj 1, 200 / 200 200 / 200 100 / 100 000 mg In 100 ml @ 5 MCG/KG/MIN 2.904 mls/hr IV.CONT TITRATE PRN Rx#:[id number] Mycamine Inj 150 MG In NS Inj 100 / 100 100 ML @ 100 mls/hr IV.SIG Q24H [facility] Rx#:[id number] Zosyn 4.5 GM Premix 4.5 gm In 200 / 200 200 / 200 100 ml @ 200 mls/hr IV.SIG Q6H [facility] Rx#:[id number] KCl 20 mEq Premix Inj 20 meq In 100 / 100 100 ml @ 50 mls/hr IV.SIG Q2H PRN Rx#:[id number] Ancef 2 GM Premix Inj 2 gm In 50 / 50 50 ml @ 100 mls/hr IV.SIG [employer] [facility] Rx#:[id number] fentaNYL 10 mcg/mL Premix Drip 250 / 250 2,500 mcg In 250 ml @ 50 MCG/HR 5 mls/hr IV.SIG TITRATE PRN Rx #:[id number] Tube Feeding 482 / 482 189 / 189 Water Bolus Amount 120 / 120 160 / 160 Anesthesia Amount 3600 / 3600 Intake (Blood Product) Amt 400 / 400 Rbc As-3 Leukoreduced Unit 400 / 400 [id number] Output: Urine 1300 / 1300 1000 / 1000 Stool 500 / 500 500 / 500 Estimated Blood Loss 250 / 250 Urine Amount (Catheter) 900 / 900 Indwelling Urethral Catheter 900 / 900 Other: Date of Last Bowel Movement 01/07/18 01/08/18 Result Diagrams: 01/08/18 05:37 01/08/18 05:37 Other Results: Microbiology 12/17/17 15:55 Other - Final 01/01/18 22:07 Blood - Peripheral Aerobic Blood Culture - Final No growth in 5 days 01/01/18 22:07 Blood - Peripheral Anaerobic Blood Culture - Final No growth in 5 days 01/01/18 19:45 Blood - Peripheral Aerobic Blood Culture - Final No growth in 5 days 01/01/18 19:45 Blood - Peripheral Anaerobic Blood Culture - Final No growth in 5 days 01/02/18 17:28 Sputum - Endotracheal Gram Stain - Final 01/02/18 17:28 Sputum - Endotracheal Sputum Culture - Final Klebsiella pneumoniae 12/19/17 11:30 Bronchial Washings - Bronchial Acid Fast Bacilli Smear - Final No acid fast bacilli seen 12/19/17 11:30 Bronchial Washings - Bronchial Mycobacterial Culture - Preliminary No growth in 2 weeks 12/19/17 11:30 Bronchial Washings - Bronchial Fungal Smear - Final Rare budding yeast 12/19/17 11:30 Bronchial Washings - Bronchial Fungal Culture - Preliminary 12/17/17 15:55 Fluid - Pleural fluid Gram Stain - Final 12/17/17 15:55 Fluid - Pleural fluid Body Fluid Culture - Final Lactobacillus rhamnosus Karla glabrata Klebsiella pneumoniae 12/19/17 00:56 Fluid - Pleural fluid Gram Stain - Final 12/19/17 00:56 Fluid - Pleural fluid Body Fluid Culture - Final Karla glabrata Lactobacillus rhamnosus 12/19/17 00:30 Fluid - Pleural fluid Gram Stain - Final 12/19/17 00:30 Fluid - Pleural fluid Body Fluid Culture - Final Klebsiella pneumoniae Karla albicans Karla glabrata Lactobacillus rhamnosus 12/17/17 15:55 Other - Final 12/17/17 08:24 Blood - Peripheral Aerobic Blood Culture - Final No growth in 5 days 12/17/17 08:24 Blood - Peripheral Anaerobic Blood Culture - Final No growth in 5 days 12/17/17 08:10 Blood - Peripheral Aerobic Blood Culture - Final No growth in 5 days 12/17/17 08:10 Blood - Peripheral Anaerobic Blood Culture - Final Staphylococcus coag negative Viridans streptococcus grp 12/19/17 11:30 Bronchial - Bronchial Gram Stain - Final 12/19/17 11:30 Bronchial - Bronchial Bronchial Culture - Final Klebsiella pneumoniae 12/17/17 15:54 Sputum - Endotracheal Gram Stain - Final 12/17/17 15:54 Sputum - Endotracheal Sputum Culture - Final Klebsiella pneumoniae 12/17/17 15:55 Stool Stool for WBCs - Final Few WBC's 12/17/17 13:54 Urine - Catheterized Urine Streptococcus pneumoniae Antigen ( M - Final Presumptive negative for streptococcus pneumoniae antigen, suggesting no current or recent infection. Infection due to Streptococcus pneumoniae cannot be ruled out since the antigen present in the sample may be below the detection limit of the test. 12/17/17 13:54 Urine - Catheterized Urine Legionella Antigen - Final Presumptive negative for Legionella pneumophila serogroup 1 antigen in urine, suggesting no recent or recurrent infection. Infection due to Legionella cannot be ruled out since other serogroups and species may cause disease, antigen may not be present in urine in early infection, and the level of antigen present in the urine may be below the detection limit of the test. 12/17/17 15:55 Nasal Aspirate Influenza Types A,B Antigen - Final Negative for FLU A and B antigen Infection due to influenza A or B cannot be ruled out since the antigen present in the sample may be below the detection limit of the test. Imaging: Chest X-Ray 12/17/17 00:00 CONCLUSION: 1. Persistent bilateral airspace infiltrates. 2. Interval placement of a right-sided thoracostomy tube. There does appear to be an apical lateral 1.5 cm right pneumothorax. 3. Extensive subcutaneous and deep tissue emphysematous changes about the right hemithorax. Chest X-Ray 12/17/17 00:00 CONCLUSION: Right-sided chest tube with slight increase in right pneumothorax compared with earlier exam. Slight increase in left basilar airspace disease since earlier exam. Slight worsening of subcutaneous air with extension into the left hemithorax and neck. Chest X-Ray 12/17/17 08:02 CONCLUSION: Satisfactory support line and tube positioning. Bilateral infiltrates. Head CT 12/17/17 08:02 CONCLUSION: 1. 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 2. Otherwise negative. . Abdomen/Pelvis CT 12/17/17 10:45 CONCLUSION: 1. Moderate diffuse colonic wall thickening exaggerated by lack of colonic distention. This may be due to low-protein state/edema. However, differential considerations include infectious and inflammatory colitis. 2. Moderate-sized right hydropneumothorax with airspace disease in the lung bases as described on chest CT. 3. Additional ancillary findings, as above. Chest CT 12/17/17 10:45 CONCLUSION: 1. Small to moderate-sized right-sided hydropneumothorax. 2. Right lower lobe consolidation with air bronchograms. Differential considerations include aspiration and lobar pneumonia. 3. Patchy diffuse groundglass opacities most prominently in the upper lobes bilaterally. Differential considerations include bronchopneumonia, atypical infection and atypical pulmonary edema. 4. Mild mediastinal adenopathy, likely reactive. Chest X-Ray 12/17/17 22:00 CONCLUSION: Placement of second right-sided chest tube with near complete resolution of previous right pneumothorax. Chest X-Ray 12/18/17 05:00 CONCLUSION: 1. Stable bilateral multifocal consolidative infiltrates. 2. 2 right chest drainage tubes in place; no pneumothorax seen. Chest X-Ray 12/19/17 00:00 CONCLUSION: 1. 2 right chest tubes remain present and there is now a small pneumothorax. There is also increased right chest wall soft tissue air. 2. Stable severe bilateral airspace consolidation. Chest X-Ray 12/19/17 05:00 CONCLUSION: Findings suggest reaccumulation of right pneumothorax with both right-sided chest tubes unchanged in position. Chest X-Ray 12/19/17 10:08 CONCLUSION: 1. 2 right chest tubes are present and no pneumothorax is identified. 2. Stable bilateral airspace consolidation primarily in the lower lung zones. Chest X-Ray 12/20/17 06:00 CONCLUSION: 1. Decrease in size of right apical pneumothorax to 4 mm. 2. Diffuse bilateral airspace consolidation similar in severity and distribution to prior. Chest X-Ray 12/21/17 02:48 CONCLUSION: 1. Large amount of chest wall and neck soft tissue emphysema present, much worse than yesterday. No definite pneumothorax. Right chest tubes remain in place. 2. Worsening bilateral airspace disease, left more so than right. Chest CT 12/21/17 04:03 CONCLUSION: 1. Moderate size right pneumothorax without tension. Also pneumopericardium and pneumomediastinum. Massive chest wall emphysema. 2. Bilateral airspace disease. 3.7 cm bilobed cavitary lesion of the right lower lobe. 3. Small left pleural effusion. No left pneumothorax. Chest X-Ray 12/21/17 07:31 CONCLUSION: Progression of the extensive subcutaneous emphysema with [address] on the right. Chest X-Ray 12/22/17 06:00 CONCLUSION: 1. Decreased chest wall emphysema. No pneumothorax seen. 2. Diffuse bilateral airspace disease without significant change. Chest X-Ray 12/23/17 13:34 CONCLUSION: 1. Interval placement of right internal jugular central venous line with no pneumothorax. 2. 3 right-sided chest tubes remain in place. 3. Interval improvement in subcutaneous emphysema. 4. The right costophrenic angle with consolidative opacity in the right lung base. Chest X-Ray 12/26/17 00:00 CONCLUSION: 1. Lines and tubes remain in place. 2. No significant interval change with persistent mild diffuse bilateral pulmonary opacity. Chest X-Ray 12/26/17 05:00 CONCLUSION: Decreasing subcutaneous emphysema. Otherwise no change. Chest X-Ray 12/27/17 05:00 CONCLUSION: Stable chest appearance Chest X-Ray 12/29/17 07:29 CONCLUSION: 1. Significant interval increase in bilateral subcutaneous emphysema with small apparent medial right pneumothorax now noted. 2. The patient remains intubated and there are 2 right-sided chest tubes in place. Chest X-Ray 12/30/17 07:39 CONCLUSION: 1. No significant change. 2. No evidence of pneumothorax. 3. Stable supportive devices. 4. Extensive airspace disease remains evident throughout both lungs without significant improvement. Chest X-Ray 12/31/17 05:00 CONCLUSION: Little change from prior exam Chest CT 01/03/18 11:56 CONCLUSION: 1. Consolidation at both lung bases has improved. Cavitary lesions on the right are slightly larger as measured above. 2. Improving pneumomediastinum, pneumopericardium and subcutaneous emphysema. Near complete resolution of previous right pneumothorax. 2 right chest tubes present. Trace pleural fluid present. 3. Patchy airspace disease remains in the lungs probably with some fibrotic changes well. 4. Endotracheal tube and nasogastric tube in good position. Chest X-Ray 01/04/18 05:00 CONCLUSION: 1. Decreased lung volumes. Persistent bilateral pulmonary opacity. 2. Right-sided chest tubes. Bilateral subcutaneous emphysema. No evidence of pneumothorax. Chest X-Ray 01/07/18 06:00 CONCLUSION: 1. Interval decrease in subcutaneous emphysema. 2 right-sided chest tubes remaining in place and no visualized pneumothorax. 2. Interval improvement in bilateral pulmonary opacity is well. 3. Masslike opacity in the right perihilar region. Chest X-Ray 01/08/18 06:00 CONCLUSION: No significant change. No perceptible pneumothorax. Chest X-Ray 01/08/18 10:25 CONCLUSION: 1. New right IJ central catheter in satisfactory position. 2. ET tube and chest tubes in satisfactory position. 3. Extensive bilateral pulmonary infiltrates. Objective Remarks: GENERAL: Middle-aged lady, intubated and sedated, ill-appearing HEENT: Pupils are equal and reactive, sclerae are anicteric, orally intubated, + NGT NECK: Supple, no rigidity, no neck vein distention, no carotid bruit CHEST: Coarse breath sounds bilateral, no wheezes, + subcutaneous emphysema, 2 right-sided chest tubes on suction, no air leak noted CARDIOVASCULAR: Regular heart sounds, no murmurs appreciated ABDOMEN: Soft, nontender, nondistended, bowel sounds present, no hepatomegaly or splenomegaly appreciated MUSCULOSKELETAL: Extremities are warm and well perfused, peripheral pulses are present, 2+ pitting edema NEUROLOGICAL: Sedated and intubated, does not open eyes to voice stimuli and does not follow commands, withdraws to pain. Pupils are equal and reactive, no gaze deviation Assessment and Plan - Assessment and Plan Plan: Neuro/Psych: Acute metabolic encephalopathy Possible seizure disorder Currently on fentany/ propofol ips for sedation/analgesia while intubated Daily sedation vacation. Goal RASS -2 She was started on anticonvulsants on her initial admission 11/23. Valproic acid 500 mg [address] 12/17- for acute disease EEG - Diffuse slowing consistent with a moderate diffuse encephalopathy. No epileptiform activity Acetaminophen 650 by tube every 6 hours as needed fever Continue quetiapine 25 mg daily/home medication Holding tizanidine 4 mg daily Respiratory: Postop day #0 Right thoracoscopic decortication, closure of bronchopleural fistula, debridement and irrigation of the prior chest tube wounds and placement of #2 32 [place]ian chest tubes Acute hypoxic and hypercarbic respiratory failure- persistent Acute severe bilateral multifocal healthcare associated pneumonia Possible aspiration pneumonia Spontaneous right-sided tension pneumothorax Subcutaneous Emphysema Chest tube #1: 12/17- removed 12/26 Chest tube #2: 12/17 Chest tube #3: 12/19 CT surgery/Dr. Lynn following. CT thorax overnight 12/12 revealed significant 3.7 cm moderate right pneumothorax without tension. Pneumopericardium and significant subcutaneous emphysema. Vent bundle and bronchodilators PRVC mode 450/14/35% PEEP of 5 Patient is synchronized with the ventilator, no auto PEEP, Pip 27 Epoprostanol added 12/19, removed 12/29. Albuterol/ipratropium aerosols every 4 hours with albuterol aerosols every 2 hours as needed dyspnea Wean FiO2 for goal SPO2 greater than 90% Daily CXR VATS -tentatively planned for today currently on hold since no air leak. Followed by CT surgery/Dr. Lynn. Cardiovascular: Septic shock- resolved Elevated troponin Type II NSTEMI secondary to demand ischemia Hyperlipidemia Holding lisinopril 30 mg daily/home medication. For dyslipidemia resume pravastatin 40 mg daily when clinically indicated Continue hydrocortisone wean Furosemide 40 mg IV twice daily diuresis Renal: Acute kidney injury (resolved) Secondary to shock, off pressors Frequent urine output monitoring Daily creatinine KVO IV fluid. Furosemide 40 mg IV daily Strict I/Os FEN/GI: Acute protein calorie malnutritionsevere Lactic acidosis- resolved Severe colitis Enterovirus colitis Hyperammonemia Currently on lactulose 30 cc twice daily Tube feeding with vital 1.5 goal 55 cc now. Metoclopramide 5 mg 3 times daily. N.p.o. after midnight ICU electrolyte protocol Daily BMP, magnesium, phosphorus Lactulose/polythene glycol twice daily Holding dicyclomine 20 mg 3 times daily Heme/ID: C. difficile colitis Enterovirus colitis Septic shock Healthcare associated multifocal pneumonia Possible gram-positive cocci bacteremia Early empyema 1 unit PRBCs transfused on 12/28 for hemoglobin 6.9, recheck CBC and transfuse to keep hemoglobin above 8 g% Transfuse 1 unit PRBCs 01/07. Vancomycin p.o. with pharmacy dosing Continue piperacillin/tazobactam and micafungin Bronchoscopy 12/19 with Klebsiella Pleural fluid 12/19 with Klebsiella's/Karla Pleural fluid 12/17 -g Karla albicans/glabrata Klebsiella, lactobacillus 12/17 -sputum -Klebsiella 12/17 blood-strep viridians/coag negative staph Infectious disease consulted and following. Actively Endocrine: Acute hypoglycemia- resolving. Sliding scale insulin Accu-Cheks every 6 hours to maintain euglycemia Prophylaxis: GI Prophylaxis Famotidine DVT Prophylaxis -- SCDs Subcu heparin Lines: 12/17 femoral triple-lumen catheter discontinued 12/23 12/17 right radial arterial line discontinued 12/21 12/17 right 28 Liberian chest tube to -40 cm suction: removed 12/26 12/17 right 32 Liberian chest tube to -40 cm suction 12/19 -right #32 [place]ian chest tube to -40 cm suction Level 2 follow-up
[2018-01-08] MEDS: Heparin - SQ 10,000 UNITS/ML Vial SQ SCH ×2 (14:08→22:22)
[2018-01-08] MEDS: Micafungin Inj 150 MG in Sodium Chlor 0.9% Inj 100 ML IV.SIG SCH (17:29)
[2018-01-08] MEDS: ceFAZolin 1 GM Premix Inj 1 GM/50 ML IV.SIG SCH (17:29)
[2018-01-08] MEDS: fentaNYL 10 mcg/mL Premix Drip 2,500 MCG/250 ML BAG IV.SIG PRN (18:01)
--- NOTE | 2018-01-08 18:59 | P.PNID ---
Subjective Remarks: sp BP fistul;a repair stable doing well post op no new fever Antibiotics: zosyn vanco PO micafungin Lines: Lines ok Past Medical History: reviewed Allergies/Adverse Reactions: Allergies No Known Allergies Allergy (Verified 12/13/17 08:04) Objective Vital Signs 01/07/18 19:00 01/07/18 20:00 01/07/18 20:29 Temperature 99.6 F Pulse Rate 97 H 101 H 97 H Respiratory Rate 17 19 18 Blood Pressure 140/79 148/81 H Pulse Oximetry 100 100 100 01/07/18 21:00 01/07/18 22:00 01/07/18 23:00 Temperature Pulse Rate 106 H 103 H 111 H Respiratory Rate 21 22 23 Blood Pressure 149/81 H 149/82 H 158/78 H Pulse Oximetry 100 100 96 01/08/18 00:00 01/08/18 01:00 01/08/18 02:00 Temperature Pulse Rate 108 H 100 H 96 H Respiratory Rate 22 18 18 Blood Pressure 156/88 H 138/77 139/76 Pulse Oximetry 100 100 100 01/08/18 03:00 01/08/18 03:28 01/08/18 04:00 Temperature 99.1 F Pulse Rate 98 H 95 H 102 H Respiratory Rate 20 18 18 Blood Pressure 148/78 H 151/79 H Pulse Oximetry 100 100 100 01/08/18 05:00 01/08/18 06:00 01/08/18 07:00 Temperature Pulse Rate 86 83 84 Respiratory Rate 15 17 14 Blood Pressure 144/82 H 147/83 H 151/80 H Pulse Oximetry 100 100 100 01/08/18 10:55 01/08/18 11:00 01/08/18 11:07 Temperature Pulse Rate 84 87 Respiratory Rate 15 14 14 Blood Pressure 158/93 H Pulse Oximetry 100 100 01/08/18 11:15 01/08/18 11:30 01/08/18 11:45 Temperature Pulse Rate 90 85 90 Respiratory Rate 17 15 15 Blood Pressure 181/110 H 165/93 H 164/93 H Pulse Oximetry 100 100 100 01/08/18 11:50 01/08/18 12:00 01/08/18 12:15 Temperature 98.5 F Pulse Rate 85 84 87 Respiratory Rate 15 14 16 Blood Pressure 160/87 H 158/93 H Pulse Oximetry 100 100 01/08/18 12:30 01/08/18 12:45 01/08/18 13:00 Temperature Pulse Rate 92 H 100 H 104 H Respiratory Rate 19 19 26 H Blood Pressure 155/93 H 156/95 H Pulse Oximetry 100 100 100 01/08/18 13:01 01/08/18 13:16 01/08/18 13:30 Temperature Pulse Rate 102 H 102 H 106 H Respiratory Rate 23 22 22 Blood Pressure 174/88 H 158/95 H 152/92 H Pulse Oximetry 100 100 100 01/08/18 13:45 01/08/18 14:00 01/08/18 14:05 Temperature Pulse Rate 105 H 103 H 100 H Respiratory Rate 21 21 21 Blood Pressure 143/95 H 143/90 H Pulse Oximetry 100 100 100 01/08/18 14:30 01/08/18 15:00 01/08/18 15:30 Temperature Pulse Rate 101 H 101 H 101 H Respiratory Rate 26 H 21 16 Blood Pressure 137/88 150/88 H 128/79 Pulse Oximetry 100 100 100 01/08/18 16:00 01/08/18 16:30 01/08/18 17:00 Temperature 99.2 F Pulse Rate 114 H 109 H 107 H Respiratory Rate 23 24 20 Blood Pressure 160/85 H 146/78 H 137/85 Pulse Oximetry 100 100 100 01/08/18 17:30 01/08/18 18:00 Temperature Pulse Rate 111 H 118 H Respiratory Rate 23 27 H Blood Pressure 141/79 H 152/93 H Pulse Oximetry 100 100 Intake & Output 01/07/18 01/08/18 01/08/18 18:59 06:59 18:59 Intake Total 1852 / 1852 749 / 749 4526 / 4526 Output Total 1800 / 1800 1500 / 1500 3350 / 3350 Balance 52 / 52 -751 / -751 1176 / 1176 Weight 69 kg Intake: IV 850 / 850 400 / 400 850 / 850 Diprivan 1000 mg/100 ml Inj 1, 200 / 200 200 / 200 200 / 200 000 mg In 100 ml @ 5 MCG/KG/MIN 2.904 mls/hr IV.CONT TITRATE PRN Rx#:[id number] Mycamine Inj 150 MG In NS Inj 100 / 100 100 / 100 100 ML @ 100 mls/hr IV.SIG Q24H [facility] Rx#:[id number] Zosyn 4.5 GM Premix 4.5 gm In 200 / 200 200 / 200 200 / 200 100 ml @ 200 mls/hr IV.SIG Q6H [facility] Rx#:[id number] KCl 20 mEq Premix Inj 20 meq In 100 / 100 100 ml @ 50 mls/hr IV.SIG Q2H PRN Rx#:[id number] Ancef 1 GM Premix Inj 1 gm In 50 / 50 50 ml @ 100 mls/hr IV.SIG Q8H [facility] Rx#:[id number] Ancef 2 GM Premix Inj 2 gm In 50 / 50 50 ml @ 100 mls/hr IV.SIG [employer] [facility] Rx#:[id number] fentaNYL 10 mcg/mL Premix Drip 250 / 250 250 / 250 2,500 mcg In 250 ml @ 50 MCG/HR 5 mls/hr IV.SIG TITRATE PRN Rx #:[id number] Tube Feeding 482 / 482 189 / 189 76 / 76 Water Bolus Amount 120 / 120 160 / 160 Anesthesia Amount 3600 / 3600 Intake (Blood Product) Amt 400 / 400 Rbc As-3 Leukoreduced Unit 400 / 400 [id number] Output: Urine 1300 / 1300 1000 / 1000 Stool 500 / 500 500 / 500 Estimated Blood Loss 250 / 250 Urine Amount (Catheter) 3100 / 3100 Indwelling Urethral Catheter 3100 / 3100 Other: Date of Last Bowel Movement 01/07/18 01/08/18 01/08/18 # Incontinent Bowel Movements 400 01/08/18 09:30 Tissue - Other Fungal Smear - Final No fungal elements seen 01/08/18 09:30 Tissue - Other Fungal Culture - Pending 01/08/18 09:30 Tissue - Other Gram Stain - Final 01/08/18 09:30 Tissue - Other Wound Culture - Pending 01/08/18 09:30 Tissue - Other Acid Fast Bacilli Smear - Pending 01/08/18 09:30 Tissue - Other Mycobacterial Culture - Pending 12/17/17 15:55 Other - Final 01/01/18 22:07 Blood - Peripheral Aerobic Blood Culture - Final No growth in 5 days 01/01/18 22:07 Blood - Peripheral Anaerobic Blood Culture - Final No growth in 5 days 01/01/18 19:45 Blood - Peripheral Aerobic Blood Culture - Final No growth in 5 days 01/01/18 19:45 Blood - Peripheral Anaerobic Blood Culture - Final No growth in 5 days Lab - Hematology Results 01/07/18 01/07/18 01/08/18 03:12 15:55 05:37 WBC 8.0 13.4 H RBC 2.10 L 2.73 L Hgb 6.7 L* 9.2 L D 9.0 L Hct 20.3 L* 26.4 L MCV 96.9 96.6 MCH 32.2 32.9 MCHC 33.2 34.1 RDW 15.3 15.1 Plt Count 399 306 MPV 7.6 8.0 Lab - Chemistry Results 01/06/18 01/07/18 01/07/18 20:32 00:50 03:12 Sodium 149 H Potassium 2.8 L* 2.9 L* Chloride 110 H Carbon Dioxide 31.5 Anion Gap 8 BUN 22 H Creatinine 0.50 Estimated GFR Greater than 89 POC Glucose 113 H Random Glucose 114 H Calcium 8.6 Phosphorus 3.4 Magnesium 2.1 Prealbumin 20 01/07/18 01/07/18 01/07/18 11:44 12:25 18:32 Sodium Potassium 3.9 D Chloride Carbon Dioxide Anion Gap BUN Creatinine Estimated GFR POC Glucose 119 H 123 H Random Glucose Calcium Phosphorus Magnesium Prealbumin 01/08/18 01/08/18 01/08/18 00:27 05:37 06:24 Sodium 149 H Potassium 3.4 L Chloride 111 H Carbon Dioxide 28.3 Anion Gap 10 BUN 19 H Creatinine 0.49 L Estimated GFR Greater than 89 POC Glucose 107 90 Random Glucose 90 Calcium 8.5 Phosphorus 4.1 Magnesium 2.1 Prealbumin 01/08/18 01/08/18 12:16 17:20 Sodium Potassium Chloride Carbon Dioxide Anion Gap BUN Creatinine Estimated GFR POC Glucose 111 H 93 Random Glucose Calcium Phosphorus Magnesium Prealbumin Imaging: ITS Impressions Head CT 12/17/17 08:02 CONCLUSION: 1. 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 2. Otherwise negative. . Abdomen/Pelvis CT 12/17/17 10:45 CONCLUSION: 1. Moderate diffuse colonic wall thickening exaggerated by lack of colonic distention. This may be due to low-protein state/edema. However, differential considerations include infectious and inflammatory colitis. 2. Moderate-sized right hydropneumothorax with airspace disease in the lung bases as described on chest CT. 3. Additional ancillary findings, as above. Chest CT 01/03/18 11:56 CONCLUSION: 1. Consolidation at both lung bases has improved. Cavitary lesions on the right are slightly larger as measured above. 2. Improving pneumomediastinum, pneumopericardium and subcutaneous emphysema. Near complete resolution of previous right pneumothorax. 2 right chest tubes present. Trace pleural fluid present. 3. Patchy airspace disease remains in the lungs probably with some fibrotic changes well. 4. Endotracheal tube and nasogastric tube in good position. Chest X-Ray 01/08/18 10:25 CONCLUSION: 1. New right IJ central catheter in satisfactory position. 2. ET tube and chest tubes in satisfactory position. 3. Extensive bilateral pulmonary infiltrates. Physical Exam: GENERAL: sedated int'd on mech vent'n SKIN: Warm and dry. No rash markedly improved SQ emphysema EYES: No scleral icterus. No injection or drainage. ENT: No nasal bleeding or discharge. Mucous membranes pink and moist. NECK: Trachea midline. No JVD. CARDIOVASCULAR: Regular rate and rhythm RESPIRATORY: No accessory muscle use. scattered rhonchi to auscultation. CT x R side GASTROINTESTINAL: Abdomen soft, non-tender, distended. Hepatic and splenic margins not palpable. MUSCULOSKELETAL: Extremities without clubbing, cyanosis, less edema. No obvious deformities. NEUROLOGICAL: sedated, unresponsive PSYCHIATRIC: unable to assess Assessment and Plan - Plan Sepsis (fever, leucocytosis) ongoing possible new. Coag neg staph likely pseudobacteremia Strep viridans: ? related to empyema torie Strep. 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 Lactobacillus resistant to Meropenem. Cannot use Clindamycin due to Cdiff. cont micafungin for both grace glab and albicans. cont oral vanco for c.diff fu WBC, temp and clinically Will look into stopping abx early next week dw Dr Joseph
[2018-01-08] MEDS: QUEtiapine 25 MG Tablet PO SCH (20:52)
[2018-01-09] MEDS: Insulin NovoLIN Regular Correctional Sugar Inj SQ SCH ×3 (00:47→13:04)
[2018-01-09] MEDS: Oral Hygiene Kit OROPHARYNG SCH ×4 (00:48→17:40)
[2018-01-09] MEDS: ceFAZolin 1 GM Premix Inj 1 GM/50 ML IV.SIG SCH ×2 (00:48→09:27)
[2018-01-09] MEDS: Piperacil/Tazo 4.5 GM Premix 4.5 GM/100 ML BAG IV.SIG SCH ×4 (04:30→21:46)
--- NOTE | 2018-01-09 04:42 | XR ---
EXAM DATE: 01/09/2018 4:28 AM EST AGE/SEX: 62 years / Female INDICATIONS: Shortness of breath, possible pulmonary disease. CLINICAL DATA: This is the patient's subsequent encounter. Patient reports that signs and symptoms h ave been present for 1 month and indicates a pain score of Nonresponsive. MEDICAL/SURGICAL HISTORY: Hypertension. Chest tube, right. [place] [facility] [place]. . FINDINGS: Single view the chest demonstrates the ET tube, nasogastric tube and right IJ central venous catheter in good position. There is right-sided chest tube with its tip near the apex. There is residual cons olidation in the right lung both anteriorly and near the apex unchanged. There is mild interstitial d isease left lung apex. I don't see any significant pneumothorax. Heart and mediastinum unremarkable. CONCLUSION: Tubes and catheters in good position. Patchy infiltrates right greater than left with right apical pl eural thickening are unchanged Electronically signed by: Barrett Caban MD 01/09/2018 4:40 AM EST
[2018-01-09] MEDS: Propofol 1000 mg/100 ml Inj 1,000 MG/100 ML BOTTLE IV.CONT PRN ×3 (06:20→18:10)
[2018-01-09] MEDS: Heparin - SQ 10,000 UNITS/ML Vial SQ SCH ×3 (06:20→21:46)
[2018-01-09 07:03] LABS: Baso # (Auto) 0.1 th/mm3 (0.0-0.2); Baso % (Auto) 0.7 % (0.0-2.0); Eos # (Auto) 0.1 th/mm3 (0.0-0.4); Eos % (Auto) 1.1 % (0.0-4.0); Hematocrit 21.8 % (35.0-46.0); Hemoglobin 7.3 gm/dL (11.6-15.3); Lymph # (Auto) 1.8 th/mm3 (1.0-4.8); Lymph % (Auto) 17.4 % (9.0-44.0); Mean Corpuscular HGB Conc 33.6 % (32.0-36.0); Mean Corpuscular Hemoglobin 32.3 pg (27.0-34.0); Mean Corpuscular Volume 96.3 fL (80.0-100.0); Mean Platelet Volume 7.4 fL (7.0-11.0); Mono # (Auto) 1.1 th/mm3 (0.0-0.9); Mono % (Auto) 10.5 % (0.0-8.0); Neut # (Auto) 7.2 th/mm3 (1.8-7.7); Neut % (Auto) 70.3 % (16.0-70.0); Platelet Count 309 th/mm3 (150-450); Red Blood Count 2.26 mil/mm3 (4.00-5.30); Red Cell Distribution Width 15.3 % (11.6-17.2); White Blood Count 10.3 th/mm3 (4.0-11.0)
[2018-01-09 07:17] LABS: Anion Gap 10 meq/L (5-15); Blood Urea Nitrogen 16 mg/dL (7-18); Calcium 7.7 mg/dL (8.5-10.1); Carbon Dioxide 28.8 meq/L (21.0-32.0); Chloride 110 meq/L (98-107); Glomerular Filtration Rate Greater Than 89 mL/min (>89); Glucose,Random 124 mg/dL (74-106); Magnesium 1.9 mg/dL (1.5-2.5); Phosphorus 3.2 mg/dL (2.5-4.9); Sodium 149 meq/L (136-145)
[2018-01-09 07:44] LABS: Potassium 2.6 meq/L (3.5-5.1)
[2018-01-09] MEDS: Famotidine 20 MG Tablet PO SCH ×2 (08:55→21:43)
[2018-01-09] MEDS: Potassium Chlor 40 mEq Premix 40 MEQ/100 ML PIGGYBACK IV.SIG PRN ×2 (08:55→12:56)
[2018-01-09] MEDS: Polyethylene Glycol 3350 17 GM Packet PO SCH ×2 (08:56→21:43)
[2018-01-09] MEDS: Sodium Chloride 0.9% 2 ML Flush BID IV.FLUSH SCH ×2 (08:56→21:48)
[2018-01-09] MEDS: Potassium Chloride 25 MEQ Effervescent Tablet NG/OG SCH (08:57)
[2018-01-09] MEDS: Senna/Docusate Sodium 8.6/50 MG Tablet PO SCH ×2 (08:58→21:43)
[2018-01-09] MEDS: Collagenase Oint 30 GM Tube TOPICAL SCH (08:59)
[2018-01-09] MEDS ORDERED: Mag Sulf 1 gm/100 ml Premix 100 ML IV.SIG ONE (09:00)
[2018-01-09] MEDS: Carboxymethylcellulose 0.5% Opth Drops 15 ML Bottle EACH EYE SCH ×2 (09:50→21:47)
[2018-01-09] MEDS: Chlorhexidine 0.12% Oral Kit 15 ML UDC OROPHARYNG SCH ×2 (09:50→21:48)
--- NOTE | 2018-01-09 11:18 | P.PNCV ---
- Note CVT: Post Op Day #: 1 Subjective/Hospital Course: pt now has 3 right sided chest tube #3 has 2-3 = air leak , #2 +1 all to 40cm suction pt now off pressors remains sedated on vent 55% fio2 +8 peep may need to re-eval for repeat ct scan in am pt will not tolerate one lung ventilation at this during any surgery will continue to monitor 12/23 pt now on 75% Fi02 peep down to 5 , no on flolan sub q emphysema with some improvement chest x 3 apical #3 +2 continuous air leak mid #2 + 1 air leak lower #1 no air leak all to 40 cm suction will monitor 12/26 Hemodynamically and clinically better One chest tube removed. 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 air leak at site all chest tube site area cleansed with chlorhexidine, iodoform gauze to old chest tube site vaseline gauze to other chest tubes / dry dressing applied / also # 2 chest tube had kink placed 2 tongue depressors along side of tube top prevent kinking and taped to chest pt still had +1-2 air leak in #3 chest tube 01/04 ct chest reviewed stable / improved, no air leak in chest tubes at present continue to monitor / no surgery indicated at present with: Improving pneumomediastinum, pneumopericardium and subcutaneous emphysema. Near complete resolution of previous right pneumothorax. 01/[address] Joseph and Dr Garces pt does have air leak when turned to left +2 , discussed with Dr Marquez/ covering for Dr Lynn will proceed with surgery on Thursday right thoracotomy, decortication, bleb resection / discussed with 01/07 pt on CPAP trials, still has + 2 air leak #3 marked chest tube for surgery on am 01/09/18 Intubated, sedated Objective: Vital Signs - 24 hr 01/08/18 11:30 01/08/18 11:45 01/08/18 11:50 Temperature Pulse Rate 85 90 85 Respiratory Rate 15 15 15 Blood Pressure 165/93 H 164/93 H Pulse Oximetry 100 100 01/08/18 12:00 01/08/18 12:15 01/08/18 12:30 Temperature 98.5 F Pulse Rate 84 87 92 H Respiratory Rate 14 16 19 Blood Pressure 160/87 H 158/93 H 155/93 H Pulse Oximetry 100 100 100 01/08/18 12:45 01/08/18 13:00 01/08/18 13:01 Temperature Pulse Rate 100 H 104 H 102 H Respiratory Rate 19 26 H 23 Blood Pressure 156/95 H 174/88 H Pulse Oximetry 100 100 100 01/08/18 13:16 01/08/18 13:30 01/08/18 13:45 Temperature Pulse Rate 102 H 106 H 105 H Respiratory Rate 22 22 21 Blood Pressure 158/95 H 152/92 H 143/95 H Pulse Oximetry 100 100 100 01/08/18 14:00 01/08/18 14:05 01/08/18 14:30 Temperature Pulse Rate 103 H 100 H 101 H Respiratory Rate 21 21 26 H Blood Pressure 143/90 H 137/88 Pulse Oximetry 100 100 100 01/08/18 15:00 01/08/18 15:30 01/08/18 16:00 Temperature 99.2 F Pulse Rate 101 H 101 H 114 H Respiratory Rate 21 16 23 Blood Pressure 150/88 H 128/79 160/85 H Pulse Oximetry 100 100 100 01/08/18 16:30 01/08/18 17:00 01/08/18 17:30 Temperature Pulse Rate 109 H 107 H 111 H Respiratory Rate 24 20 23 Blood Pressure 146/78 H 137/85 141/79 H Pulse Oximetry 100 100 100 01/08/18 18:00 01/08/18 19:00 01/08/18 19:41 Temperature 99.5 F Pulse Rate 118 H 111 H 111 H Respiratory Rate 27 H 23 21 Blood Pressure 152/93 H 133/76 Pulse Oximetry 100 100 94 L 01/08/18 20:00 01/08/18 21:00 01/08/18 22:00 Temperature 99.5 F 99.5 F 99.5 F Pulse Rate 115 H 110 H 110 H Respiratory Rate 26 H 5 L 18 Blood Pressure 140/85 129/81 120/71 Pulse Oximetry 99 100 100 01/08/18 23:00 01/09/18 00:00 01/09/18 00:02 Temperature 99 F 99 F Pulse Rate 108 H 100 H 104 H Respiratory Rate 23 20 20 Blood Pressure 123/69 140/85 Pulse Oximetry 100 97 01/09/18 01:00 01/09/18 02:00 01/09/18 03:00 Temperature 99 F 99.4 F Pulse Rate 101 H 101 H 103 H Respiratory Rate 18 20 20 Blood Pressure 136/78 128/76 128/76 Pulse Oximetry 100 97 97 01/09/18 03:23 01/09/18 04:00 01/09/18 05:00 Temperature Pulse Rate 105 H 104 H 100 H Respiratory Rate 20 21 20 Blood Pressure 132/72 127/68 Pulse Oximetry 97 97 98 01/09/18 06:00 01/09/18 08:08 Temperature Pulse Rate 99 H 97 H Respiratory Rate 21 20 Blood Pressure 131/72 Pulse Oximetry 99 100 Labs: Laboratory Results - last 12 hr 01/08/18 01/09/18 01/09/18 23:45 05:45 06:16 WBC RBC Hgb Hct MCV MCH MCHC RDW Plt Count MPV Neut % (Auto) Lymph % (Auto) [place] % (Auto) Eos % (Auto) Baso % (Auto) Neut # (Auto) Lymph # (Auto) [place] # (Auto) Eos # (Auto) Baso # (Auto) WBC Differential Differential Comment Sodium 149 H Potassium 2.6 L* D Chloride 110 H Carbon Dioxide 28.8 Anion Gap 10 BUN 16 Creatinine 0.48 L Estimated GFR Greater than 89 POC Glucose 119 H 142 H Random Glucose 124 H Calcium 7.7 L D Phosphorus 3.2 Magnesium 1.9 01/09/18 06:16 WBC 10.3 RBC 2.26 L Hgb 7.3 L Hct 21.8 L MCV 96.3 MCH 32.3 MCHC 33.6 RDW 15.3 Plt Count 309 MPV 7.4 Neut % (Auto) 70.3 H Lymph % (Auto) 17.4 [place] % (Auto) 10.5 H Eos % (Auto) 1.1 Baso % (Auto) 0.7 Neut # (Auto) 7.2 Lymph # (Auto) 1.8 [place] # (Auto) 1.1 H Eos # (Auto) 0.1 Baso # (Auto) 0.1 WBC Differential . Differential Comment Auto diff final Sodium Potassium Chloride Carbon Dioxide Anion Gap BUN Creatinine Estimated GFR POC Glucose Random Glucose Calcium Phosphorus Magnesium Result Diagrams: 01/09/18 06:16 01/09/18 06:16 Imaging: Head CT 12/17/17 08:02 CONCLUSION: 1. 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 2. Otherwise negative. . Abdomen/Pelvis CT 12/17/17 10:45 CONCLUSION: 1. Moderate diffuse colonic wall thickening exaggerated by lack of colonic distention. This may be due to low-protein state/edema. However, differential considerations include infectious and inflammatory colitis. 2. Moderate-sized right hydropneumothorax with airspace disease in the lung bases as described on chest CT. 3. Additional ancillary findings, as above. Chest CT 01/03/18 11:56 CONCLUSION: 1. Consolidation at both lung bases has improved. Cavitary lesions on the right are slightly larger as measured above. 2. Improving pneumomediastinum, pneumopericardium and subcutaneous emphysema. Near complete resolution of previous right pneumothorax. 2 right chest tubes present. Trace pleural fluid present. 3. Patchy airspace disease remains in the lungs probably with some fibrotic changes well. 4. Endotracheal tube and nasogastric tube in good position. Chest X-Ray 01/09/18 06:00 CONCLUSION: Tubes and catheters in good position. Patchy infiltrates right greater than left with right apical pleural thickening are unchanged Cardiovascular: RRR Pulmonary: Bilat crackles GI/: decreased BS Incision: multiple chest tube wounds intact Port incision is dry and intact CT: small air leak on vent - Plan (1) Respiratory failure Plan: on vent 35% / CPAP trials for surgery on thursday (2) Pneumonia Continue chest tubes to suction Chest tubes are in good position and will likely need to stay in until patient is off the ventilator. (1) Respiratory failure Qualifiers: Chronicity: acute Respiratory failure complication: hypoxia and hypercapnia Qualified Code(s): J96.01 - Acute respiratory failure with hypoxia; J96.02 - Acute respiratory failure with hypercapnia (2) Pneumonia Qualifiers: Pneumonia type: due to unspecified organism Laterality: bilateral Lung location: unspecified part of lung Qualified Code(s): J18.9 - Pneumonia, unspecified organism
--- NOTE | 2018-01-09 15:20 | P.PNCC ---
Subjective Subjective Remarks/Hospital Course: This is a 62yF who was originally admitted on 11/23 with a diagnosis of colitis, found to have enterovirus. discharged on 12/11 at that time on PO vancomycin, but came back on 12/13 with altered mental status and hypoglycemia, again discharged on 12/15. She was mildly fatigued on 12/16 according to her and asked to wait another day before traveling back to her home in [place]. This morning, she was unarousable and her called 911. She was intubated upon arrival to the emergency department for agonal respirations. CXR demonstrates bilateral multifocal pneumonia. She is febrile, hypotensive. CVL placed in the ER and vasopressors initiated after 2L bolus crystalloid. CT chest/abd/pelvis demonstrates right pneumothorax, densely consolidated right lower lobe, bilateral pulmonary infiltrates, evidence of ongoing colitis. Patient continue to be unstable. Immediately after identifying ptx on CT scan, I emergently placed right chest tube with some improvements in hemodynamics, but ongoing distributive shock persists. I placed arterial line. No additional information available from the patient, ROS unobtainable. In discussion with the , she has not had any new complaints in the 48h she was home, and other than mild fatigue last night, no new complaints. She was able to walk to the bathroom without assistance yesterday. 12/18: shock remains. now on levophed, vasopressin, phenylephrine. second chest tube placed overnight for worsening SQ air. acidosis remains and is severe. 12/19: Afebrile. Remains on vasopressin drip only. On stress dose hydrocortisone. Evaluated by CT surgery. Not a candidate for intervention at the present time. Chest tube continues to leak. Epoprostenol added today 12/20: Afebrile. FiO2 has decreased and is currently 70%. Currently replacing potassium, phosphorus and magnesium. Recheck later this afternoon. Less chest tube leak today down to 1 chamber. 12/21: Overnight, worsening subcutaneous emphysema. A third chest tube placed by overnight clinical geneticist after discussion with cardiothoracic surgery. Currently hemodynamically stable. Replacing phosphorus today. To be evaluated by CT surgery today. 12/22: Remains sedated, orally intubated on mechanical ventilation. Persistent air leak and chest tube noted. 12/23: Remains sedated, orally intubated on mechanical ventilation. Air leak persists though slightly improved. PEEP at +5 FiO2 55%, inhaled Flolan continues. Central line replaced with right IJ triple-lumen catheter. 12/24: Remains sedated, orally intubated on mechanical ventilation. 1+ air leak from chest tube 3 noted. PEEP +5, FiO2 60%, inhaled Flolan continues. Decreasing subcutaneous emphysema noted. 12/25: Remains sedated, orally improved on mechanical ventilation. 1+ for leak from chest tube 2. PEEP +5, FiO2 50%. Starting to titrate inhaled Flolan down today. Initiating Lasix to mobilize fluid. 12/26: remains intubated. air leak continues from chest tube #3. drainage out of #1 and #2 are very serous. #1 was removed by myself today. all chest tube dressings changed by me today. repeat CXR pending. very volume overloaded. starting to diurese. off vasopressors. off pathway: still high fio2 requirements. 12/27: good diuresis overnight. very hypokalemic today and aggressively replacing. CXR unchanged. air leak unchanged. long discussion over long-term and short-term prognosis and plan of care with entire family today. all questions answered. 12/28: Continues to diurese. Remains on mechanical ventilation. Positive air leak in chest tube 3. 1 unit PRBCs transfused earlier for hemoglobin 6.9. 12/29: Remains on mechanical ventilation. Increasing subcutaneous emphysema noted. Air leak stopped and chest tube #2 and 3 currently. Flolan being titrated down. Chest x-ray shows appropriate positioning of 2 chest tubes with the more medial small right pneumothorax with significant subcutaneous emphysema bilaterally. Patient remains off pressors and is being diuresed to mobilize fluid. 12/30: volume removal continues. Cr still at baseline. fio2 down to 40% and off inhaled Flolan. discussed with Dr. Lynn: will need to wait at least until next week for VATS. Will need trach going forward: discussed with family and they are agreeable. Dr. Lynn asked that both chest tubes remain in place. air leak persists. remains intubated and sedated. 12/31: Sedated, orally intubated on mechanical ventilation. On 40% FiO2 PEEP + 5. Positive air leak in chest tube [address] surgery planning for VATS next week, will need tracheostomy coordinated as well. 01/01: Remains sedated, orally intubated on mechanical ventilation. PEEP +5, FiO2 35%. Being diuresed. 01/02: Sedated, orally intubated on mechanical ventilation. PEEP +5, FiO2 35%. Intermittent air leak in chest tube 3. Being diuresed 01/03: persistent air leak. hypoxia improving. discussed case with Dr. Lynn- he would like pre-operative CT chest for surgical planning. we also discussed timing of tracheostomy: it would be easier surgically to have ett in place to place double-lumen ett, so he would prefer to keep ett until after operation, and then proceed with tracheostomy. tentatively VATS planned for Friday 01/05. 01/04: No events over the night. Patient remains sedated and intubated, sedation achieved with fentanyl and propofol. T-max of 100.2 over the last 24 hours. I/O 3770/3130. Chest tubes remain on suction. 01/05: T-max 99.3. Currently afebrile. Difficulty with weaning from ventilator noted. VATS currently on hold per CT surgery. 01/06: Resting comfortably in bed in no acute distress. Plan for thoracotomy rested on Thursday night. Currently on CPAP trial. Potassium being replaced. 01/07: Resting complaint bed in no acute distress. Plan for thoracotomy tomorrow a.m. 730. Currently on CPAP trial. Transfuse when he PRBC today. Hemoglobin currently 9.6 potassium 3.9. 01/08: Today, status post right thoracoscopic decortication, closure of bronchopleural fistula with debridement and irrigation of the prior chest tube wounds with placement of 2 #32 Italian chest tubes by cardiothoracic surgery patellar procedure well. EBL 250. Adequate urine output. Appears stable. Subjective 01/09: T-max 100.2. Currently tachycardic. Receiving 2 units PRBCs. Potassium being replaced. Agitated on the ventilator. Objective Vital Signs / I&O: Vital Signs 01/08/18 15:30 01/08/18 16:00 01/08/18 16:30 Temperature 99.2 F Pulse Rate 101 H 114 H 109 H Respiratory Rate 16 23 24 Blood Pressure 128/79 160/85 H 146/78 H Pulse Oximetry 100 100 100 01/08/18 17:00 01/08/18 17:30 01/08/18 18:00 Temperature Pulse Rate 107 H 111 H 118 H Respiratory Rate 20 23 27 H Blood Pressure 137/85 141/79 H 152/93 H Pulse Oximetry 100 100 100 01/08/18 19:00 01/08/18 19:41 01/08/18 20:00 Temperature 99.5 F 99.5 F Pulse Rate 111 H 111 H 115 H Respiratory Rate 23 21 26 H Blood Pressure 133/76 140/85 Pulse Oximetry 100 94 L 99 01/08/18 21:00 01/08/18 22:00 01/08/18 23:00 Temperature 99.5 F 99.5 F 99 F Pulse Rate 110 H 110 H 108 H Respiratory Rate 5 L 18 23 Blood Pressure 129/81 120/71 123/69 Pulse Oximetry 100 100 100 01/09/18 00:00 01/09/18 00:02 01/09/18 01:00 Temperature 99 F 99 F Pulse Rate 100 H 104 H 101 H Respiratory Rate 20 20 18 Blood Pressure 140/85 136/78 Pulse Oximetry 97 100 01/09/18 02:00 01/09/18 03:00 01/09/18 03:23 Temperature 99.4 F Pulse Rate 101 H 103 H 105 H Respiratory Rate 20 20 20 Blood Pressure 128/76 128/76 Pulse Oximetry 97 97 97 01/09/18 04:00 01/09/18 05:00 01/09/18 06:00 Temperature Pulse Rate 104 H 100 H 99 H Respiratory Rate 21 20 21 Blood Pressure 132/72 127/68 131/72 Pulse Oximetry 97 98 99 01/09/18 07:00 01/09/18 07:30 01/09/18 08:00 Temperature 99.4 F Pulse Rate 102 H 100 H 100 H Respiratory Rate 22 19 20 Blood Pressure 126/74 126/66 130/69 Pulse Oximetry 100 100 100 01/09/18 08:08 01/09/18 08:30 01/09/18 09:00 Temperature Pulse Rate 97 H 103 H 103 H Respiratory Rate 20 14 28 H Blood Pressure 138/69 139/73 Pulse Oximetry 100 100 99 01/09/18 09:30 01/09/18 10:00 01/09/18 10:30 Temperature Pulse Rate 101 H 99 H 105 H Respiratory Rate 24 27 H 25 H Blood Pressure 133/74 137/72 131/76 Pulse Oximetry 100 100 100 01/09/18 11:00 01/09/18 11:30 01/09/18 12:00 Temperature 100.2 F H Pulse Rate 109 H 108 H 109 H Respiratory Rate 23 25 H 22 Blood Pressure 135/80 149/80 H 136/78 Pulse Oximetry 100 100 100 01/09/18 12:30 01/09/18 12:34 01/09/18 12:35 Temperature Pulse Rate 103 H 101 H Respiratory Rate 23 22 22 Blood Pressure 135/77 Pulse Oximetry 100 100 01/09/18 13:00 01/09/18 13:30 01/09/18 14:00 Temperature Pulse Rate 109 H 109 H 103 H Respiratory Rate 29 H 32 H 27 H Blood Pressure 145/82 H 138/79 Pulse Oximetry 100 100 100 Intake & Output 01/08/18 01/09/18 01/09/18 18:59 06:59 18:59 Intake Total 4526 / 4526 1097 / 1097 200 / 200 Output Total 3500 / 3500 1240 / 1240 Balance 1026 / 1026 -143 / -143 200 / 200 Weight 68 kg Intake: IV 850 / 850 450 / 450 200 / 200 Diprivan 1000 mg/100 ml Inj 1, 200 / 200 200 / 200 100 / 100 000 mg In 100 ml @ 5 MCG/KG/MIN 2.904 mls/hr IV.CONT TITRATE PRN Rx#:[id number] Mycamine Inj 150 MG In NS Inj 100 / 100 100 ML @ 100 mls/hr IV.SIG Q24H BENJAMIN Rx#:[id number] Zosyn 4.5 GM Premix 4.5 gm In 200 / 200 200 / 200 100 ml @ 200 mls/hr IV.SIG Q6H BENJAMIN Rx#:[id number] KCl 40 mEq Premix Inj 40 meq In 100 / 100 100 ml @ 25 mls/hr IV.SIG Q2H PRN Rx#:[id number] Ancef 1 GM Premix Inj 1 gm In 50 / 50 50 / 50 50 ml @ 100 mls/hr IV.SIG Q8H BENJAMIN Rx#:[id number] Ancef 2 GM Premix Inj 2 gm In 50 / 50 50 ml @ 100 mls/hr IV.SIG DIRECTOR INDEX BENJAMIN Rx#:[id number] fentaNYL 10 mcg/mL Premix Drip 250 / 250 2,500 mcg In 250 ml @ 50 MCG/HR 5 mls/hr IV.SIG TITRATE PRN Rx #:[id number] Oral 0 / 0 Tube Feeding 76 / 76 527 / 527 Water Bolus Amount 120 / 120 Anesthesia Amount 3600 / 3600 Output: Urine 1000 / 1000 Stool 200 / 200 Estimated Blood Loss 250 / 250 Urine Amount (Catheter) 3100 / 3100 Indwelling Urethral Catheter 3100 / 3100 Chest Tube Drainage 150 / 150 40 / 40 Right Y Connected 150 / 150 40 / 40 Other: Date of Last Bowel Movement 01/08/18 # Incontinent Bowel Movements 400 Result Diagrams: 01/09/18 06:16 01/09/18 06:16 Other Results: Microbiology 12/19/17 11:30 Bronchial Washings - Bronchial Acid Fast Bacilli Smear - Final No acid fast bacilli seen 12/19/17 11:30 Bronchial Washings - Bronchial Mycobacterial Culture - Preliminary No growth in 3 weeks 01/08/18 09:30 Tissue - Other Gram Stain - Final 01/08/18 09:30 Tissue - Other Wound Culture - Preliminary No growth in 24 hours 01/08/18 09:30 Tissue - Other Fungal Smear - Final No fungal elements seen 12/17/17 15:55 Other - Final 01/01/18 22:07 Blood - Peripheral Aerobic Blood Culture - Final No growth in 5 days 01/01/18 22:07 Blood - Peripheral Anaerobic Blood Culture - Final No growth in 5 days 01/01/18 19:45 Blood - Peripheral Aerobic Blood Culture - Final No growth in 5 days 01/01/18 19:45 Blood - Peripheral Anaerobic Blood Culture - Final No growth in 5 days 01/02/18 17:28 Sputum - Endotracheal Gram Stain - Final 01/02/18 17:28 Sputum - Endotracheal Sputum Culture - Final Klebsiella pneumoniae 12/19/17 11:30 Bronchial Washings - Bronchial Fungal Smear - Final Rare budding yeast 12/19/17 11:30 Bronchial Washings - Bronchial Fungal Culture - Preliminary 12/17/17 15:55 Fluid - Pleural fluid Gram Stain - Final 12/17/17 15:55 Fluid - Pleural fluid Body Fluid Culture - Final Lactobacillus rhamnosus Karla glabrata Klebsiella pneumoniae 12/19/17 00:56 Fluid - Pleural fluid Gram Stain - Final 12/19/17 00:56 Fluid - Pleural fluid Body Fluid Culture - Final Karla glabrata Lactobacillus rhamnosus 12/19/17 00:30 Fluid - Pleural fluid Gram Stain - Final 12/19/17 00:30 Fluid - Pleural fluid Body Fluid Culture - Final Klebsiella pneumoniae Karla albicans Karla glabrata Lactobacillus rhamnosus 12/17/17 15:55 Other - Final 12/17/17 08:24 Blood - Peripheral Aerobic Blood Culture - Final No growth in 5 days 12/17/17 08:24 Blood - Peripheral Anaerobic Blood Culture - Final No growth in 5 days 12/17/17 08:10 Blood - Peripheral Aerobic Blood Culture - Final No growth in 5 days 12/17/17 08:10 Blood - Peripheral Anaerobic Blood Culture - Final Staphylococcus coag negative Viridans streptococcus grp 12/19/17 11:30 Bronchial - Bronchial Gram Stain - Final 12/19/17 11:30 Bronchial - Bronchial Bronchial Culture - Final Klebsiella pneumoniae 12/17/17 15:54 Sputum - Endotracheal Gram Stain - Final 12/17/17 15:54 Sputum - Endotracheal Sputum Culture - Final Klebsiella pneumoniae 12/17/17 15:55 Stool Stool for WBCs - Final Few WBC's 12/17/17 13:54 Urine - Catheterized Urine Streptococcus pneumoniae Antigen ( M - Final Presumptive negative for streptococcus pneumoniae antigen, suggesting no current or recent infection. Infection due to Streptococcus pneumoniae cannot be ruled out since the antigen present in the sample may be below the detection limit of the test. 12/17/17 13:54 Urine - Catheterized Urine Legionella Antigen - Final Presumptive negative for Legionella pneumophila serogroup 1 antigen in urine, suggesting no recent or recurrent infection. Infection due to Legionella cannot be ruled out since other serogroups and species may cause disease, antigen may not be present in urine in early infection, and the level of antigen present in the urine may be below the detection limit of the test. 12/17/17 15:55 Nasal Aspirate Influenza Types A,B Antigen - Final Negative for FLU A and B antigen Infection due to influenza A or B cannot be ruled out since the antigen present in the sample may be below the detection limit of the test. Imaging: Chest X-Ray 12/17/17 00:00 CONCLUSION: 1. Persistent bilateral airspace infiltrates. 2. Interval placement of a right-sided thoracostomy tube. There does appear to be an apical lateral 1.5 cm right pneumothorax. 3. Extensive subcutaneous and deep tissue emphysematous changes about the right hemithorax. Chest X-Ray 12/17/17 00:00 CONCLUSION: Right-sided chest tube with slight increase in right pneumothorax compared with earlier exam. Slight increase in left basilar airspace disease since earlier exam. Slight worsening of subcutaneous air with extension into the left hemithorax and neck. Chest X-Ray 12/17/17 08:02 CONCLUSION: Satisfactory support line and tube positioning. Bilateral infiltrates. Head CT 12/17/17 08:02 CONCLUSION: 1. 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 2. Otherwise negative. . Abdomen/Pelvis CT 12/17/17 10:45 CONCLUSION: 1. Moderate diffuse colonic wall thickening exaggerated by lack of colonic distention. This may be due to low-protein state/edema. However, differential considerations include infectious and inflammatory colitis. 2. Moderate-sized right hydropneumothorax with airspace disease in the lung bases as described on chest CT. 3. Additional ancillary findings, as above. Chest CT 12/17/17 10:45 CONCLUSION: 1. Small to moderate-sized right-sided hydropneumothorax. 2. Right lower lobe consolidation with air bronchograms. Differential considerations include aspiration and lobar pneumonia. 3. Patchy diffuse groundglass opacities most prominently in the upper lobes bilaterally. Differential considerations include bronchopneumonia, atypical infection and atypical pulmonary edema. 4. Mild mediastinal adenopathy, likely reactive. Chest X-Ray 12/17/17 22:00 CONCLUSION: Placement of second right-sided chest tube with near complete resolution of previous right pneumothorax. Chest X-Ray 12/18/17 05:00 CONCLUSION: 1. Stable bilateral multifocal consolidative infiltrates. 2. 2 right chest drainage tubes in place; no pneumothorax seen. Chest X-Ray 12/19/17 00:00 CONCLUSION: 1. 2 right chest tubes remain present and there is now a small pneumothorax. There is also increased right chest wall soft tissue air. 2. Stable severe bilateral airspace consolidation. Chest X-Ray 12/19/17 05:00 CONCLUSION: Findings suggest reaccumulation of right pneumothorax with both right-sided chest tubes unchanged in position. Chest X-Ray 12/19/17 10:08 CONCLUSION: 1. 2 right chest tubes are present and no pneumothorax is identified. 2. Stable bilateral airspace consolidation primarily in the lower lung zones. Chest X-Ray 12/20/17 06:00 CONCLUSION: 1. Decrease in size of right apical pneumothorax to 4 mm. 2. Diffuse bilateral airspace consolidation similar in severity and distribution to prior. Chest X-Ray 12/21/17 02:48 CONCLUSION: 1. Large amount of chest wall and neck soft tissue emphysema present, much worse than yesterday. No definite pneumothorax. Right chest tubes remain in place. 2. Worsening bilateral airspace disease, left more so than right. Chest CT 12/21/17 04:03 CONCLUSION: 1. Moderate size right pneumothorax without tension. Also pneumopericardium and pneumomediastinum. Massive chest wall emphysema. 2. Bilateral airspace disease. 3.7 cm bilobed cavitary lesion of the right lower lobe. 3. Small left pleural effusion. No left pneumothorax. Chest X-Ray 12/21/17 07:31 CONCLUSION: Progression of the extensive subcutaneous emphysema with [address] on the right. Chest X-Ray 12/22/17 06:00 CONCLUSION: 1. Decreased chest wall emphysema. No pneumothorax seen. 2. Diffuse bilateral airspace disease without significant change. Chest X-Ray 12/23/17 13:34 CONCLUSION: 1. Interval placement of right internal jugular central venous line with no pneumothorax. 2. 3 right-sided chest tubes remain in place. 3. Interval improvement in subcutaneous emphysema. 4. The right costophrenic angle with consolidative opacity in the right lung base. Chest X-Ray 12/26/17 00:00 CONCLUSION: 1. Lines and tubes remain in place. 2. No significant interval change with persistent mild diffuse bilateral pulmonary opacity. Chest X-Ray 12/26/17 05:00 CONCLUSION: Decreasing subcutaneous emphysema. Otherwise no change. Chest X-Ray 12/27/17 05:00 CONCLUSION: Stable chest appearance Chest X-Ray 12/29/17 07:29 CONCLUSION: 1. Significant interval increase in bilateral subcutaneous emphysema with small apparent medial right pneumothorax now noted. 2. The patient remains intubated and there are 2 right-sided chest tubes in place. Chest X-Ray 12/30/17 07:39 CONCLUSION: 1. No significant change. 2. No evidence of pneumothorax. 3. Stable supportive devices. 4. Extensive airspace disease remains evident throughout both lungs without significant improvement. Chest X-Ray 12/31/17 05:00 CONCLUSION: Little change from prior exam Chest CT 01/03/18 11:56 CONCLUSION: 1. Consolidation at both lung bases has improved. Cavitary lesions on the right are slightly larger as measured above. 2. Improving pneumomediastinum, pneumopericardium and subcutaneous emphysema. Near complete resolution of previous right pneumothorax. 2 right chest tubes present. Trace pleural fluid present. 3. Patchy airspace disease remains in the lungs probably with some fibrotic changes well. 4. Endotracheal tube and nasogastric tube in good position. Chest X-Ray 01/04/18 05:00 CONCLUSION: 1. Decreased lung volumes. Persistent bilateral pulmonary opacity. 2. Right-sided chest tubes. Bilateral subcutaneous emphysema. No evidence of pneumothorax. Chest X-Ray 01/07/18 06:00 CONCLUSION: 1. Interval decrease in subcutaneous emphysema. 2 right-sided chest tubes remaining in place and no visualized pneumothorax. 2. Interval improvement in bilateral pulmonary opacity is well. 3. Masslike opacity in the right perihilar region. Chest X-Ray 01/08/18 06:00 CONCLUSION: No significant change. No perceptible pneumothorax. Chest X-Ray 01/08/18 10:25 CONCLUSION: 1. New right IJ central catheter in satisfactory position. 2. ET tube and chest tubes in satisfactory position. 3. Extensive bilateral pulmonary infiltrates. Chest X-Ray 01/09/18 06:00 CONCLUSION: Tubes and catheters in good position. Patchy infiltrates right greater than left with right apical pleural thickening are unchanged Objective Remarks: GENERAL: Middle-aged lady, intubated and sedated, ill-appearing HEENT: Pupils are equal and reactive, sclerae are anicteric, orally intubated, + NGT NECK: Supple, no rigidity, no neck vein distention, no carotid bruit CHEST: Coarse breath sounds bilateral, no wheezes, + subcutaneous emphysema, 1 dual right-sided chest tubes on suction, -190 cc past 24 hours no air leak noted CARDIOVASCULAR: Regular heart sounds, no murmurs appreciated ABDOMEN: Soft, nontender, nondistended, bowel sounds present, no hepatomegaly or splenomegaly appreciated MUSCULOSKELETAL: Extremities are warm and well perfused, peripheral pulses are present, 2+ pitting edema NEUROLOGICAL: Sedated and intubated, does not open eyes to voice stimuli and does not follow commands, withdraws to pain. Pupils are equal and reactive, no gaze deviation Assessment and Plan - Assessment and Plan Plan: Neuro/Psych: Acute metabolic encephalopathy Possible seizure disorder Currently on fentany/ propofol drips for sedation/analgesia while intubated Daily sedation vacation. Goal RASS -2 She was started on anticonvulsants on her initial admission 11/23. Valproic acid 500 mg [address] 12/17- for acute disease EEG - Diffuse slowing consistent with a moderate diffuse encephalopathy. No epileptiform activity. Repeat 01/10 Acetaminophen 650 by tube every 6 hours as needed fever Continue quetiapine 25 mg daily/home medication Holding tizanidine 4 mg daily Respiratory: Postop day #1 Right thoracoscopic decortication, closure of bronchopleural fistula, debridement and irrigation of the prior chest tube wounds and placement of #2 32 Italian chest tubes Acute hypoxic and hypercarbic respiratory failure- persistent Acute severe bilateral multifocal healthcare associated pneumonia Possible aspiration pneumonia Spontaneous right-sided tension pneumothorax Subcutaneous Emphysema Chest tube #1: 12/17- removed 12/26 Chest tube #2: 12/17 Chest tube #3: 12/19 CT surgery/Dr. Lynn following. CT thorax overnight 12/12 revealed significant 3.7 cm moderate right pneumothorax without tension. Pneumopericardium and significant subcutaneous emphysema. Vent bundle and bronchodilators PRVC mode 450/14/35% PEEP of 5 Patient is synchronized with the ventilator, no auto PEEP, Pip 27 Epoprostanol added 12/19, removed 12/29. Albuterol/ipratropium aerosols every 4 hours with albuterol aerosols every 2 hours as needed dyspnea Wean FiO2 for goal SPO2 greater than 90% Daily CXR VATS -tentatively planned for today currently on hold since no air leak. Followed by CT surgery/Dr. Lynn. Cardiovascular: Septic shock- resolved Elevated troponin Type II NSTEMI secondary to demand ischemia Hyperlipidemia Holding lisinopril 30 mg daily/home medication. For dyslipidemia resume pravastatin 40 mg daily when clinically indicated Continue hydrocortisone wean Furosemide 40 mg IV daily diuresis. Renal: Acute kidney injury (resolved) Secondary to shock, off pressors Frequent urine output monitoring Daily creatinine KVO IV fluid. Furosemide 40 mg IV daily Strict I/Os FEN/GI: Acute protein calorie malnutritionsevere Lactic acidosis- resolved Severe colitis Enterovirus colitis Hyperammonemia Currently on lactulose 30 cc twice daily Tube feeding with vital 1.5 goal 55 cc now. Metoclopramide 5 mg 3 times daily. N.p.o. after midnight ICU electrolyte protocol Daily BMP, magnesium, phosphorus Lactulose/polythene glycol twice daily Holding dicyclomine 20 mg 3 times daily Heme/ID: C. difficile colitis Enterovirus colitis Septic shock Healthcare associated multifocal pneumonia Possible gram-positive cocci bacteremia Early empyema 1 unit PRBCs transfused on 12/28 for hemoglobin 6.9, recheck CBC and transfuse to keep hemoglobin above 8 g% Transfuse 1 unit PRBCs 01/07.. Transfuse 2 units PRBCs 01/09 Vancomycin p.o. with pharmacy dosing Continue piperacillin/tazobactam and micafungin Bronchoscopy 12/19 with Klebsiella Pleural fluid 12/19 with Klebsiella's/Karla Pleural fluid 12/17 -g Karla albicans/glabrata Klebsiella, lactobacillus 12/17 -sputum -Klebsiella 12/17 blood-strep viridians/coag negative staph Infectious disease consulted and following. Actively Endocrine: Acute hypoglycemia- resolving. Sliding scale insulin Accu-Cheks every 6 hours to maintain euglycemia Prophylaxis: GI Prophylaxis Famotidine DVT Prophylaxis -- SCDs Subcu heparin Lines: 12/17 femoral triple-lumen catheter discontinued 12/23 12/17 right radial arterial line discontinued 12/21 12/17 right 28 Italian chest tube to -40 cm suction: removed 12/26 12/17 right 32 Italian chest tube to -40 cm suction removed 01/08 12/19 -right #32 Italian chest tube to -40 cm suction removed 01/08 Level 2 follow-up
[2018-01-09] MEDS: Micafungin Inj 150 MG in Sodium Chlor 0.9% Inj 100 ML IV.SIG SCH (17:38)
[2018-01-09] MEDS: fentaNYL 10 mcg/mL Premix Drip 2,500 MCG/250 ML BAG IV.SIG PRN (17:39)
[2018-01-09 18:21] LABS: Anion Gap 8 meq/L (5-15); Blood Urea Nitrogen 15 mg/dL (7-18); Carbon Dioxide 28.6 meq/L (21.0-32.0); Chloride 111 meq/L (98-107); Glomerular Filtration Rate Greater Than 89 mL/min (>89); Glucose,Random 113 mg/dL (74-106); Potassium 3.4 meq/L (3.5-5.1); Sodium 148 meq/L (136-145)
[2018-01-09] MEDS: QUEtiapine 25 MG Tablet PO SCH (21:43)
[2018-01-09] MEDS: Potassium Chloride 25 MEQ Effervescent Tablet PO PRN (22:19)
[2018-01-10] MEDS: Propofol 1000 mg/100 ml Inj 1,000 MG/100 ML BOTTLE IV.CONT PRN ×4 (00:15→19:55)
[2018-01-10] MEDS: Oral Hygiene Kit OROPHARYNG SCH ×4 (00:25→16:09)
--- NOTE | 2018-01-10 03:52 | XR ---
EXAM DATE: 01/10/2018 3:49 AM EST AGE/SEX: 62 years / Female INDICATIONS: Shortness of breath, possible pulmonary disease. CLINICAL DATA: This is the patient's subsequent encounter. Patient reports that signs and symptoms h ave been present for 1 month and indicates a pain score of Nonresponsive. MEDICAL/SURGICAL HISTORY: Hypertension. Chest tube, right. COMPARISON: [facility], CHEST 1V SINGLE AP, 01/09/2018. . FINDINGS: The endotracheal tube, nasogastric tube and right IJ central venous catheter in good position. There is a right-sided chest tube with its tip near the apex. Additional chest tube it extends down the pos terior costophrenic angle There is diffuse pulmonary interstitial lung disease. There are scattered i nfiltrates in the right midlung zone in the left lung base is stable. I don't see any significant int erval change CONCLUSION: Tubes and catheters in good position. Patchy infiltrate right midlung zone left lung base are unchang ed. Electronically signed by: Barrett Caban MD 01/10/2018 3:50 AM EST
[2018-01-10] MEDS: Insulin NovoLIN Regular Correctional Sugar Inj SQ SCH ×4 (04:24→20:23)
[2018-01-10] MEDS: Piperacil/Tazo 4.5 GM Premix 4.5 GM/100 ML BAG IV.SIG SCH ×4 (05:16→21:52)
[2018-01-10] MEDS: fentaNYL 10 mcg/mL Premix Drip 2,500 MCG/250 ML BAG IV.SIG PRN ×2 (05:16→21:55)
[2018-01-10] MEDS: Heparin - SQ 10,000 UNITS/ML Vial SQ SCH ×3 (05:17→21:52)
[2018-01-10 07:47] LABS: Baso # (Auto) 0.1 th/mm3 (0.0-0.2); Baso % (Auto) 0.7 % (0.0-2.0); Eos # (Auto) 0.7 th/mm3 (0.0-0.4); Eos % (Auto) 6.8 % (0.0-4.0); Hematocrit 30.2 % (35.0-46.0); Hemoglobin 10.2 gm/dL (11.6-15.3); Lymph % (Auto) 18.6 % (9.0-44.0); Mean Corpuscular HGB Conc 33.7 % (32.0-36.0); Mean Corpuscular Hemoglobin 31.3 pg (27.0-34.0); Mean Corpuscular Volume 92.8 fL (80.0-100.0); Mean Platelet Volume 8.5 fL (7.0-11.0); Mono # (Auto) 1.1 th/mm3 (0.0-0.9); Mono % (Auto) 9.8 % (0.0-8.0); Neut % (Auto) 64.1 % (16.0-70.0); Platelet Count 291 th/mm3 (150-450); Red Blood Count 3.25 mil/mm3 (4.00-5.30); Red Cell Distribution Width 16.7 % (11.6-17.2); White Blood Count 10.9 th/mm3 (4.0-11.0)
[2018-01-10 08:09] LABS: Albumin 1.6 g/dL (3.4-5.0); Anion Gap 9 meq/L (5-15); Aspartate Aminotransferase 23 U/L (15-37); Blood Urea Nitrogen 15 mg/dL (7-18); Carbon Dioxide 26.7 meq/L (21.0-32.0); Chloride 110 meq/L (98-107); Glomerular Filtration Rate Greater Than 89 mL/min (>89); Glucose,Random 107 mg/dL (74-106); Magnesium 1.8 mg/dL (1.5-2.5); Potassium 3.4 meq/L (3.5-5.1); Sodium 146 meq/L (136-145)
[2018-01-10 08:10] LABS: Alanine Aminotransferase 13 U/L (10-53); Phosphorus 3.3 mg/dL (2.5-4.9)
[2018-01-10 08:12] LABS: Alkaline Phosphatase 86 U/L (45-117); Total Protein 6.1 g/dL (6.4-8.2)
[2018-01-10 09:12] LABS: Eosinophils 4 % (0-4); Metamyelocytes 2 % (0-1); Monocytes 7 % (0-8); Myelocytes 1 % (0-0)
[2018-01-10 09:13] LABS: Lymphocytes 18 % (9-44); Platelet Estimate Normal (Normal); Platelet Morphology Normal (Normal)
[2018-01-10] MEDS: Potassium Chloride 25 MEQ Effervescent Tablet NG/OG SCH (09:28)
[2018-01-10] MEDS: Polyethylene Glycol 3350 17 GM Packet PO SCH ×2 (09:28→21:52)
[2018-01-10] MEDS: Senna/Docusate Sodium 8.6/50 MG Tablet PO SCH ×2 (09:29→21:50)
[2018-01-10] MEDS: Famotidine 20 MG Tablet PO SCH ×2 (09:29→21:50)
[2018-01-10] MEDS: Sodium Chloride 0.9% 2 ML Flush BID IV.FLUSH SCH ×2 (09:30→21:53)
[2018-01-10] MEDS: Carboxymethylcellulose 0.5% Opth Drops 15 ML Bottle EACH EYE SCH ×2 (09:31→21:54)
[2018-01-10] MEDS: Chlorhexidine 0.12% Oral Kit 15 ML UDC OROPHARYNG SCH ×2 (09:31→19:56)
[2018-01-10] MEDS: Collagenase Oint 30 GM Tube TOPICAL SCH (09:32)
[2018-01-10] MEDS ORDERED: Potassium Chloride 25 MEQ Effervescent Tablet PO ONE (15:39)
[2018-01-10] MEDS ORDERED: Magnesium Sulfate Inj 2 GM in Sodium Chlor 0.9% Inj 96 ML IV.SIG ONE (15:39)
--- NOTE | 2018-01-10 15:41 | P.PNCC ---
Subjective Subjective Remarks/Hospital Course: This is a 62yF who was originally admitted on 11/23 with a diagnosis of colitis, found to have enterovirus. discharged on 12/11 at that time on PO vancomycin, but came back on 12/13 with altered mental status and hypoglycemia, again discharged on 12/15. She was mildly fatigued on 12/16 according to her and asked to wait another day before traveling back to her home in [place]. This morning, she was unarousable and her called 911. She was intubated upon arrival to the emergency department for agonal respirations. CXR demonstrates bilateral multifocal pneumonia. She is febrile, hypotensive. CVL placed in the ER and vasopressors initiated after 2L bolus crystalloid. CT chest/abd/pelvis demonstrates right pneumothorax, densely consolidated right lower lobe, bilateral pulmonary infiltrates, evidence of ongoing colitis. Patient continue to be unstable. Immediately after identifying ptx on CT scan, I emergently placed right chest tube with some improvements in hemodynamics, but ongoing distributive shock persists. I placed arterial line. No additional information available from the patient, ROS unobtainable. In discussion with the , she has not had any new complaints in the 48h she was home, and other than mild fatigue last night, no new complaints. She was able to walk to the bathroom without assistance yesterday. 12/18: shock remains. now on levophed, vasopressin, phenylephrine. second chest tube placed overnight for worsening SQ air. acidosis remains and is severe. 12/19: Afebrile. Remains on vasopressin drip only. On stress dose hydrocortisone. Evaluated by CT surgery. Not a candidate for intervention at the present time. Chest tube continues to leak. Epoprostenol added today 12/20: Afebrile. FiO2 has decreased and is currently 70%. Currently replacing potassium, phosphorus and magnesium. Recheck later this afternoon. Less chest tube leak today down to 1 chamber. 12/21: Overnight, worsening subcutaneous emphysema. A third chest tube placed by overnight service or work dispatcher after discussion with cardiothoracic surgery. Currently hemodynamically stable. Replacing phosphorus today. To be evaluated by CT surgery today. 12/22: Remains sedated, orally intubated on mechanical ventilation. Persistent air leak and chest tube noted. 12/23: Remains sedated, orally intubated on mechanical ventilation. Air leak persists though slightly improved. PEEP at +5 FiO2 55%, inhaled Flolan continues. Central line replaced with right IJ triple-lumen catheter. 12/24: Remains sedated, orally intubated on mechanical ventilation. 1+ air leak from chest tube 3 noted. PEEP +5, FiO2 60%, inhaled Flolan continues. Decreasing subcutaneous emphysema noted. 12/25: Remains sedated, orally improved on mechanical ventilation. 1+ for leak from chest tube 2. PEEP +5, FiO2 50%. Starting to titrate inhaled Flolan down today. Initiating Lasix to mobilize fluid. 12/26: remains intubated. air leak continues from chest tube #3. drainage out of #1 and #2 are very serous. #1 was removed by myself today. all chest tube dressings changed by me today. repeat CXR pending. very volume overloaded. starting to diurese. off vasopressors. off pathway: still high fio2 requirements. 12/27: good diuresis overnight. very hypokalemic today and aggressively replacing. CXR unchanged. air leak unchanged. long discussion over long-term and short-term prognosis and plan of care with entire family today. all questions answered. 12/28: Continues to diurese. Remains on mechanical ventilation. Positive air leak in chest tube 3. 1 unit PRBCs transfused earlier for hemoglobin 6.9. 12/29: Remains on mechanical ventilation. Increasing subcutaneous emphysema noted. Air leak stopped and chest tube #2 and 3 currently. Flolan being titrated down. Chest x-ray shows appropriate positioning of 2 chest tubes with the more medial small right pneumothorax with significant subcutaneous emphysema bilaterally. Patient remains off pressors and is being diuresed to mobilize fluid. 12/30: volume removal continues. Cr still at baseline. fio2 down to 40% and off inhaled Flolan. discussed with Dr. Lynn: will need to wait at least until next week for VATS. Will need trach going forward: discussed with family and they are agreeable. Dr. Lynn asked that both chest tubes remain in place. air leak persists. remains intubated and sedated. 12/31: Sedated, orally intubated on mechanical ventilation. On 40% FiO2 PEEP + 5. Positive air leak in chest tube [address] surgery planning for VATS next week, will need tracheostomy coordinated as well. 01/01: Remains sedated, orally intubated on mechanical ventilation. PEEP +5, FiO2 35%. Being diuresed. 01/02: Sedated, orally intubated on mechanical ventilation. PEEP +5, FiO2 35%. Intermittent air leak in chest tube 3. Being diuresed 01/03: persistent air leak. hypoxia improving. discussed case with Dr. Lynn- he would like pre-operative CT chest for surgical planning. we also discussed timing of tracheostomy: it would be easier surgically to have ett in place to place double-lumen ett, so he would prefer to keep ett until after operation, and then proceed with tracheostomy. tentatively VATS planned for Friday 01/05. 01/04: No events over the night. Patient remains sedated and intubated, sedation achieved with fentanyl and propofol. T-max of 100.2 over the last 24 hours. I/O 3770/3130. Chest tubes remain on suction. 01/05: T-max 99.3. Currently afebrile. Difficulty with weaning from ventilator noted. VATS currently on hold per CT surgery. 01/06: Resting comfortably in bed in no acute distress. Plan for thoracotomy rested on Thursday night. Currently on CPAP trial. Potassium being replaced. 01/07: Resting complaint bed in no acute distress. Plan for thoracotomy tomorrow a.m. 730. Currently on CPAP trial. Transfuse when he PRBC today. Hemoglobin currently 9.6 potassium 3.9. 01/08: Today, status post right thoracoscopic decortication, closure of bronchopleural fistula with debridement and irrigation of the prior chest tube wounds with placement of 2 #32 [place] chest tubes by cardiothoracic surgery patellar procedure well. EBL 250. Adequate urine output. Appears stable. 01/09: T-max 100.2. Currently tachycardic. Receiving 2 units PRBCs. Potassium being replaced. Agitated on the ventilator. Subjective 01/10: Twitching on the ventilator/tremor. Temperature max 100.2. 120 cc output from chest tube overnight. Still not arousable/following commands on the ventilator. Likely tracheostomy Objective Vital Signs / I&O: Vital Signs 01/09/18 16:00 01/09/18 16:04 01/09/18 16:28 Temperature Pulse Rate 99 H 99 H Respiratory Rate 22 22 20 Blood Pressure Pulse Oximetry 98 99 01/09/18 17:00 01/09/18 17:24 01/09/18 17:41 Temperature 98.9 F 99 F Pulse Rate 109 H 109 H 107 H Respiratory Rate 28 H 27 H 22 Blood Pressure 148/75 H 140/70 Pulse Oximetry 100 100 100 01/09/18 18:00 01/09/18 19:00 01/09/18 20:00 Temperature 100.3 F H Pulse Rate 112 H 95 H 100 H Respiratory Rate 25 H 18 17 Blood Pressure Pulse Oximetry 100 98 96 01/09/18 20:50 01/09/18 20:52 01/09/18 20:56 Temperature 100.0 F H Pulse Rate 90 93 H Respiratory Rate 18 17 19 Blood Pressure 114/65 114/65 Pulse Oximetry 100 98 98 01/09/18 21:00 01/09/18 21:04 01/09/18 21:25 Temperature 99.8 F H Pulse Rate 95 H 101 H 93 H Respiratory Rate 21 20 17 Blood Pressure 137/72 137/72 Pulse Oximetry 99 99 01/09/18 21:30 01/09/18 21:35 01/09/18 22:00 Temperature 99.5 F Pulse Rate 94 H 100 H 99 H Respiratory Rate 18 21 19 Blood Pressure 120/68 140/80 140/80 Pulse Oximetry 99 100 100 01/09/18 22:30 01/09/18 22:45 01/09/18 23:00 Temperature Pulse Rate 103 H 97 H Respiratory Rate 22 21 17 Blood Pressure 131/79 109/70 Pulse Oximetry 100 100 98 01/09/18 23:30 01/10/18 00:00 01/10/18 00:17 Temperature 99.0 F Pulse Rate 108 H 97 H 101 H Respiratory Rate 26 H 18 21 Blood Pressure 150/92 H 117/72 117/72 Pulse Oximetry 100 100 100 01/10/18 00:31 01/10/18 00:39 01/10/18 01:00 Temperature Pulse Rate 106 H 101 H 109 H Respiratory Rate 28 H 20 28 H Blood Pressure 159/84 H Pulse Oximetry 100 99 01/10/18 01:01 01/10/18 01:28 01/10/18 01:30 Temperature Pulse Rate 108 H 106 H 104 H Respiratory Rate 28 H 24 25 H Blood Pressure 170/124 H 151/69 H 145/80 H Pulse Oximetry 99 100 99 01/10/18 02:00 01/10/18 02:16 01/10/18 02:30 Temperature Pulse Rate 94 H 98 H Respiratory Rate 16 20 16 Blood Pressure 129/73 131/69 Pulse Oximetry 100 100 100 01/10/18 03:00 01/10/18 03:30 01/10/18 04:00 Temperature Pulse Rate 98 H 96 H 102 H Respiratory Rate 17 17 20 Blood Pressure 135/75 118/67 143/74 H Pulse Oximetry 100 100 100 01/10/18 04:25 01/10/18 04:30 01/10/18 04:35 Temperature Pulse Rate 93 H 90 Respiratory Rate 17 18 17 Blood Pressure 134/74 Pulse Oximetry 100 100 01/10/18 05:00 01/10/18 05:30 01/10/18 06:00 Temperature Pulse Rate 101 H 101 H 100 H Respiratory Rate 19 18 20 Blood Pressure 127/72 134/72 131/74 Pulse Oximetry 100 100 100 01/10/18 06:30 01/10/18 07:00 01/10/18 07:30 Temperature Pulse Rate 99 H 100 H 98 H Respiratory Rate 21 19 17 Blood Pressure 133/72 131/72 123/73 Pulse Oximetry 100 100 100 01/10/18 08:00 01/10/18 08:30 01/10/18 09:00 Temperature Pulse Rate 100 H 101 H 104 H Respiratory Rate 19 21 22 Blood Pressure 124/73 124/72 Pulse Oximetry 99 98 97 01/10/18 09:01 01/10/18 09:23 01/10/18 10:00 Temperature Pulse Rate 114 H 108 H 111 H Respiratory Rate 22 30 H 28 H Blood Pressure 202/85 H 128/73 137/87 Pulse Oximetry 96 97 97 01/10/18 11:00 01/10/18 12:00 01/10/18 12:14 Temperature Pulse Rate 114 H 109 H 111 H Respiratory Rate 27 H 30 H 29 H Blood Pressure 135/76 135/83 Pulse Oximetry 96 97 01/10/18 12:19 01/10/18 13:00 01/10/18 15:39 Temperature Pulse Rate 107 H 100 H Respiratory Rate 20 19 16 Blood Pressure 135/78 Pulse Oximetry 99 98 Intake & Output 01/09/18 01/10/18 01/10/18 18:59 06:59 18:59 Intake Total 1443 / 1443 2179 / 2179 200 / 200 Output Total 1620 / 1620 2150 / 2150 Balance -177 / -177 29 / 29 200 / 200 Weight 69.6 kg Intake: IV 850 / 850 650 / 650 200 / 200 Diprivan 1000 mg/100 ml Inj 1, 200 / 200 200 / 200 100 / 100 000 mg In 100 ml @ 5 MCG/KG/MIN 2.904 mls/hr IV.CONT TITRATE PRN Rx#:[id number] Mycamine Inj 150 MG In NS Inj 100 / 100 100 ML @ 100 mls/hr IV.SIG Q24H BENJAMIN Rx#:[id number] Zosyn 4.5 GM Premix 4.5 gm In 200 / 200 200 / 200 100 ml @ 200 mls/hr IV.SIG Q6H BENJAMIN Rx#:[id number] KCl 40 mEq Premix Inj 40 meq In 200 / 200 100 ml @ 25 mls/hr IV.SIG Q2H PRN Rx#:[id number] fentaNYL 10 mcg/mL Premix Drip 250 / 250 250 / 250 2,500 mcg In 250 ml @ 50 MCG/HR 5 mls/hr IV.SIG TITRATE PRN Rx #:[id number] Tube Feeding 393 / 393 529 / 529 Water Bolus Amount 200 / 200 200 / 200 Intake (Blood Product) Amt 0 / 0 800 / 800 Rbc As-3 Leukoreduced Unit 0 / 0 400 / 400 [id number] Rbc As-3 Leukoreduced Unit 400 / 400 [id number] Output: Urine 750 / 750 250 / 250 Stool 800 / 800 650 / 650 Urine Amount (Catheter) 1200 / 1200 Straight 1200 / 1200 Chest Tube Drainage 70 / 70 50 / 50 #2 Right Lower 70 / 70 Right Y Connected 50 / 50 Other: Date of Last Bowel Movement 01/10/18 01/10/18 Result Diagrams: 01/10/18 05:40 01/10/18 05:40 Other Results: Microbiology 01/08/18 09:30 Tissue - Other Gram Stain - Final 01/08/18 09:30 Tissue - Other Wound Culture - Preliminary No growth in 48 hours 12/19/17 11:30 Bronchial Washings - Bronchial Acid Fast Bacilli Smear - Final No acid fast bacilli seen 12/19/17 11:30 Bronchial Washings - Bronchial Mycobacterial Culture - Preliminary No growth in 3 weeks 01/08/18 09:30 Tissue - Other Fungal Smear - Final No fungal elements seen 12/17/17 15:55 Other - Final 01/01/18 22:07 Blood - Peripheral Aerobic Blood Culture - Final No growth in 5 days 01/01/18 22:07 Blood - Peripheral Anaerobic Blood Culture - Final No growth in 5 days 01/01/18 19:45 Blood - Peripheral Aerobic Blood Culture - Final No growth in 5 days 01/01/18 19:45 Blood - Peripheral Anaerobic Blood Culture - Final No growth in 5 days 01/02/18 17:28 Sputum - Endotracheal Gram Stain - Final 01/02/18 17:28 Sputum - Endotracheal Sputum Culture - Final Klebsiella pneumoniae 12/19/17 11:30 Bronchial Washings - Bronchial Fungal Smear - Final Rare budding yeast 12/19/17 11:30 Bronchial Washings - Bronchial Fungal Culture - Preliminary 12/17/17 15:55 Fluid - Pleural fluid Gram Stain - Final 12/17/17 15:55 Fluid - Pleural fluid Body Fluid Culture - Final Lactobacillus rhamnosus Karla glabrata Klebsiella pneumoniae 12/19/17 00:56 Fluid - Pleural fluid Gram Stain - Final 12/19/17 00:56 Fluid - Pleural fluid Body Fluid Culture - Final Karla glabrata Lactobacillus rhamnosus 12/19/17 00:30 Fluid - Pleural fluid Gram Stain - Final 12/19/17 00:30 Fluid - Pleural fluid Body Fluid Culture - Final Klebsiella pneumoniae Karla albicans Karla glabrata Lactobacillus rhamnosus 12/17/17 15:55 Other - Final 12/17/17 08:24 Blood - Peripheral Aerobic Blood Culture - Final No growth in 5 days 12/17/17 08:24 Blood - Peripheral Anaerobic Blood Culture - Final No growth in 5 days 12/17/17 08:10 Blood - Peripheral Aerobic Blood Culture - Final No growth in 5 days 12/17/17 08:10 Blood - Peripheral Anaerobic Blood Culture - Final Staphylococcus coag negative Viridans streptococcus grp 12/19/17 11:30 Bronchial - Bronchial Gram Stain - Final 12/19/17 11:30 Bronchial - Bronchial Bronchial Culture - Final Klebsiella pneumoniae 12/17/17 15:54 Sputum - Endotracheal Gram Stain - Final 12/17/17 15:54 Sputum - Endotracheal Sputum Culture - Final Klebsiella pneumoniae 12/17/17 15:55 Stool Stool for WBCs - Final Few WBC's 12/17/17 13:54 Urine - Catheterized Urine Streptococcus pneumoniae Antigen ( M - Final Presumptive negative for streptococcus pneumoniae antigen, suggesting no current or recent infection. Infection due to Streptococcus pneumoniae cannot be ruled out since the antigen present in the sample may be below the detection limit of the test. 12/17/17 13:54 Urine - Catheterized Urine Legionella Antigen - Final Presumptive negative for Legionella pneumophila serogroup 1 antigen in urine, suggesting no recent or recurrent infection. Infection due to Legionella cannot be ruled out since other serogroups and species may cause disease, antigen may not be present in urine in early infection, and the level of antigen present in the urine may be below the detection limit of the test. 12/17/17 15:55 Nasal Aspirate Influenza Types A,B Antigen - Final Negative for FLU A and B antigen Infection due to influenza A or B cannot be ruled out since the antigen present in the sample may be below the detection limit of the test. Imaging: Chest X-Ray 12/17/17 00:00 CONCLUSION: 1. Persistent bilateral airspace infiltrates. 2. Interval placement of a right-sided thoracostomy tube. There does appear to be an apical lateral 1.5 cm right pneumothorax. 3. Extensive subcutaneous and deep tissue emphysematous changes about the right hemithorax. Chest X-Ray 12/17/17 00:00 CONCLUSION: Right-sided chest tube with slight increase in right pneumothorax compared with earlier exam. Slight increase in left basilar airspace disease since earlier exam. Slight worsening of subcutaneous air with extension into the left hemithorax and neck. Chest X-Ray 12/17/17 08:02 CONCLUSION: Satisfactory support line and tube positioning. Bilateral infiltrates. Head CT 12/17/17 08:02 CONCLUSION: 1. 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 2. Otherwise negative. . Abdomen/Pelvis CT 12/17/17 10:45 CONCLUSION: 1. Moderate diffuse colonic wall thickening exaggerated by lack of colonic distention. This may be due to low-protein state/edema. However, differential considerations include infectious and inflammatory colitis. 2. Moderate-sized right hydropneumothorax with airspace disease in the lung bases as described on chest CT. 3. Additional ancillary findings, as above. Chest CT 12/17/17 10:45 CONCLUSION: 1. Small to moderate-sized right-sided hydropneumothorax. 2. Right lower lobe consolidation with air bronchograms. Differential considerations include aspiration and lobar pneumonia. 3. Patchy diffuse groundglass opacities most prominently in the upper lobes bilaterally. Differential considerations include bronchopneumonia, atypical infection and atypical pulmonary edema. 4. Mild mediastinal adenopathy, likely reactive. Chest X-Ray 12/17/17 22:00 CONCLUSION: Placement of second right-sided chest tube with near complete resolution of previous right pneumothorax. Chest X-Ray 12/18/17 05:00 CONCLUSION: 1. Stable bilateral multifocal consolidative infiltrates. 2. 2 right chest drainage tubes in place; no pneumothorax seen. Chest X-Ray 12/19/17 00:00 CONCLUSION: 1. 2 right chest tubes remain present and there is now a small pneumothorax. There is also increased right chest wall soft tissue air. 2. Stable severe bilateral airspace consolidation. Chest X-Ray 12/19/17 05:00 CONCLUSION: Findings suggest reaccumulation of right pneumothorax with both right-sided chest tubes unchanged in position. Chest X-Ray 12/19/17 10:08 CONCLUSION: 1. 2 right chest tubes are present and no pneumothorax is identified. 2. Stable bilateral airspace consolidation primarily in the lower lung zones. Chest X-Ray 12/20/17 06:00 CONCLUSION: 1. Decrease in size of right apical pneumothorax to 4 mm. 2. Diffuse bilateral airspace consolidation similar in severity and distribution to prior. Chest X-Ray 12/21/17 02:48 CONCLUSION: 1. Large amount of chest wall and neck soft tissue emphysema present, much worse than yesterday. No definite pneumothorax. Right chest tubes remain in place. 2. Worsening bilateral airspace disease, left more so than right. Chest CT 12/21/17 04:03 CONCLUSION: 1. Moderate size right pneumothorax without tension. Also pneumopericardium and pneumomediastinum. Massive chest wall emphysema. 2. Bilateral airspace disease. 3.7 cm bilobed cavitary lesion of the right lower lobe. 3. Small left pleural effusion. No left pneumothorax. Chest X-Ray 12/21/17 07:31 CONCLUSION: Progression of the extensive subcutaneous emphysema with [address] on the right. Chest X-Ray 12/22/17 06:00 CONCLUSION: 1. Decreased chest wall emphysema. No pneumothorax seen. 2. Diffuse bilateral airspace disease without significant change. Chest X-Ray 12/23/17 13:34 CONCLUSION: 1. Interval placement of right internal jugular central venous line with no pneumothorax. 2. 3 right-sided chest tubes remain in place. 3. Interval improvement in subcutaneous emphysema. 4. The right costophrenic angle with consolidative opacity in the right lung base. Chest X-Ray 12/26/17 00:00 CONCLUSION: 1. Lines and tubes remain in place. 2. No significant interval change with persistent mild diffuse bilateral pulmonary opacity. Chest X-Ray 12/26/17 05:00 CONCLUSION: Decreasing subcutaneous emphysema. Otherwise no change. Chest X-Ray 12/27/17 05:00 CONCLUSION: Stable chest appearance Chest X-Ray 12/29/17 07:29 CONCLUSION: 1. Significant interval increase in bilateral subcutaneous emphysema with small apparent medial right pneumothorax now noted. 2. The patient remains intubated and there are 2 right-sided chest tubes in place. Chest X-Ray 12/30/17 07:39 CONCLUSION: 1. No significant change. 2. No evidence of pneumothorax. 3. Stable supportive devices. 4. Extensive airspace disease remains evident throughout both lungs without significant improvement. Chest X-Ray 12/31/17 05:00 CONCLUSION: Little change from prior exam Chest CT 01/03/18 11:56 CONCLUSION: 1. Consolidation at both lung bases has improved. Cavitary lesions on the right are slightly larger as measured above. 2. Improving pneumomediastinum, pneumopericardium and subcutaneous emphysema. Near complete resolution of previous right pneumothorax. 2 right chest tubes present. Trace pleural fluid present. 3. Patchy airspace disease remains in the lungs probably with some fibrotic changes well. 4. Endotracheal tube and nasogastric tube in good position. Chest X-Ray 01/04/18 05:00 CONCLUSION: 1. Decreased lung volumes. Persistent bilateral pulmonary opacity. 2. Right-sided chest tubes. Bilateral subcutaneous emphysema. No evidence of pneumothorax. Chest X-Ray 01/07/18 06:00 CONCLUSION: 1. Interval decrease in subcutaneous emphysema. 2 right-sided chest tubes remaining in place and no visualized pneumothorax. 2. Interval improvement in bilateral pulmonary opacity is well. 3. Masslike opacity in the right perihilar region. Chest X-Ray 01/08/18 06:00 CONCLUSION: No significant change. No perceptible pneumothorax. Chest X-Ray 01/08/18 10:25 CONCLUSION: 1. New right IJ central catheter in satisfactory position. 2. ET tube and chest tubes in satisfactory position. 3. Extensive bilateral pulmonary infiltrates. Chest X-Ray 01/09/18 06:00 CONCLUSION: Tubes and catheters in good position. Patchy infiltrates right greater than left with right apical pleural thickening are unchanged Chest X-Ray 01/10/18 06:00 CONCLUSION: Tubes and catheters in good position. Patchy infiltrate right midlung zone left lung base are unchanged. Objective Remarks: GENERAL: Middle-aged lady, intubated and sedated, ill-appearing HEENT: Pupils are equal and reactive, sclerae are anicteric, orally intubated, + NGT NECK: Supple, no rigidity, no neck vein distention, no carotid bruit CHEST: Coarse breath sounds bilateral, no wheezes, + subcutaneous emphysema, 1 dual right-sided chest tubes on suction, -190 cc past 24 hours no air leak noted CARDIOVASCULAR: Regular heart sounds, no murmurs appreciated ABDOMEN: Soft, nontender, nondistended, bowel sounds present, no hepatomegaly or splenomegaly appreciated MUSCULOSKELETAL: Extremities are warm and well perfused, peripheral pulses are present, 2+ pitting edema NEUROLOGICAL: Sedated and intubated, does not open eyes to voice stimuli and does not follow commands, withdraws to pain. Pupils are equal and reactive, no gaze deviation Assessment and Plan - Assessment and Plan Plan: Neuro/Psych: Acute metabolic encephalopathy Possible seizure disorder Currently on fentany/ propofol drips for sedation/analgesia while intubated Daily sedation vacation. Goal RASS -2 She was started on anticonvulsants on her initial admission 11/23. Valproic acid 500 mg [address] 12/17- for acute disease EEG - Diffuse slowing consistent with a moderate diffuse encephalopathy. No epileptiform activity. Repeat 01/10 Acetaminophen 650 by tube every 6 hours as needed fever Continue quetiapine 25 mg daily/home medication Holding tizanidine 4 mg daily Respiratory: Postop day #1 Right thoracoscopic decortication, closure of bronchopleural fistula, debridement and irrigation of the prior chest tube wounds and placement of #2 32 [place] chest tubes Acute hypoxic and hypercarbic respiratory failure- persistent Acute severe bilateral multifocal healthcare associated pneumonia Possible aspiration pneumonia Spontaneous right-sided tension pneumothorax Subcutaneous Emphysema Chest tube #1: 12/17- removed 12/26 Chest tube #2: 12/17 Chest tube #3: 12/19 CT surgery/Dr. Lynn following. CT thorax overnight 12/12 revealed significant 3.7 cm moderate right pneumothorax without tension. Pneumopericardium and significant subcutaneous emphysema. Vent bundle and bronchodilators PRVC mode 450/14/35% PEEP of 5 Patient is synchronized with the ventilator, no auto PEEP, Pip 27 Epoprostanol added 12/19, removed 12/29. Albuterol/ipratropium aerosols every 4 hours with albuterol aerosols every 2 hours as needed dyspnea Wean FiO2 for goal SPO2 greater than 90% Daily CXR VATS -tentatively planned for today currently on hold since no air leak. Followed by CT surgery/Dr. Lynn. Cardiovascular: Septic shock- resolved Elevated troponin Type II NSTEMI secondary to demand ischemia Hyperlipidemia Holding lisinopril 30 mg daily/home medication. For dyslipidemia resume pravastatin 40 mg daily when clinically indicated Continue hydrocortisone wean Furosemide 40 mg IV daily diuresis. Renal: Acute kidney injury (resolved) Secondary to shock, off pressors Frequent urine output monitoring Daily creatinine KVO IV fluid. Furosemide 40 mg IV daily Strict I/Os FEN/GI: Acute protein calorie malnutritionsevere Lactic acidosis- resolved Severe colitis Enterovirus colitis Hyperammonemia Currently on lactulose 30 cc twice daily Tube feeding with vital 1.5 goal 55 cc now. Metoclopramide 5 mg 3 times daily. N.p.o. after midnight ICU electrolyte protocol Daily BMP, magnesium, phosphorus Lactulose/polythene glycol twice daily Holding dicyclomine 20 mg 3 times daily Heme/ID: C. difficile colitis Enterovirus colitis Septic shock Healthcare associated multifocal pneumonia Possible gram-positive cocci bacteremia Early empyema 1 unit PRBCs transfused on 12/28 for hemoglobin 6.9, recheck CBC and transfuse to keep hemoglobin above 8 g% Transfuse 1 unit PRBCs 01/07.. Transfuse 2 units PRBCs 01/09 Vancomycin p.o. with pharmacy dosing Continue piperacillin/tazobactam and micafungin Bronchoscopy 12/19 with Klebsiella Pleural fluid 12/19 with Klebsiella's/Karla Pleural fluid 12/17 -g Karla albicans/glabrata Klebsiella, lactobacillus 12/17 -sputum -Klebsiella 12/17 blood-strep viridians/coag negative staph Infectious disease consulted and following. Actively Endocrine: Acute hypoglycemia- resolving. Sliding scale insulin Accu-Cheks every 6 hours to maintain euglycemia Prophylaxis: GI Prophylaxis Famotidine DVT Prophylaxis -- SCDs Subcu heparin Lines: 12/17 femoral triple-lumen catheter discontinued 12/23 12/17 right radial arterial line discontinued 12/21 12/17 right 28 [place] chest tube to -40 cm suction: removed 12/26 12/17 right 32 [place] chest tube to -40 cm suction removed 01/08 12/19 -right #32 [place] chest tube to -40 cm suction removed 01/08 Level 2 follow-up
[2018-01-10] MEDS: Mag Sulf 1 gm/100 ml Premix 100 ML IV.SIG SCH ×2 (16:17→18:06)
--- NOTE | 2018-01-10 16:38 | P.DIET ---
Nutritional Evaluation Type of nutrition evaluation: follow-up Nutrition consult regarding: Tube Feeding Objective - Diagnosis Septic Shock, Resp Failure, hypoglycemia - Objective % IBW: 123 Body Weight Used for Calculations: Actual (72.7 kg ) Energy Needs - Lower Range (kCal/kg): 25 Energy Needs - Upper Range (kCal/kg): 30 Lower Limit kCal/kg (kCals): 1,818 Upper Limit kCal/kg (kCals): 2,181 Lower Limit Protein Factor (Grams per Kg): 1.1 Upper Limit Protein Factor (Grams per Kg): 1.4 Lower Protein Needs (Protein): 80 Upper Protein Needs (Protein): 102 Dietitian Reviewed in Medical Record: Curent medications, Intake & Output, Labs , Medical history, Tube feeding Diet Order: NPO, TF Wound Care Note: skin midline sacrum: pressure injury Objective Comments: PMH includes: HTN, Chronic Pain, HLD, MDRO Labs include: K+ 3.4, Cr 0.47, random glucose 107, Ca+ 8.0 Feeding - Current Tube Feeding Tube Feeding Product: Jevity 1.5 Tube Feeding Rate: 55 Assessment Assessment: [facility], sedated w/ propofol and fentanyl. Recommend to continue TF'ing w/Vital 1.5 goal rate @ 55ml/hr, pt tolerating TF well. Good UOP and +LBM 01/10 Labs reviewed. Wt changes noted. Recommendations: 1. Recommend to continue TF'ing w/Vital 1.5 goal rate 55ml/hr Dietitian to Monitor: Lab values, Electrolytes, Glucose level, Intake & Output, Tube feeding tolerance, Weight change, Medical course
[2018-01-10] MEDS: Micafungin Inj 150 MG in Sodium Chlor 0.9% Inj 100 ML IV.SIG SCH (16:55)
--- NOTE | 2018-01-10 21:36 | MG ---
cc: Prashant Turner MD DATE OF STUDY: 01/10/2018 ELECTROENCEPHALOGRAM RECORD NUMBER: [id number] DESCRIPTION: Generalized slowing, 1-3 Hz delta activity with occasional slow theta, 20-50 microvolts, frontal electrical artifact persistent throughout the recording. Single-lead EKG appears to be sinus rhythm with possible premature contractions. INTERPRETATION: Moderate encephalopathy. Clinical correlation. Prashant Turner MD MG/rw , 08:59 PM , 09:02 PM
[2018-01-10] MEDS: QUEtiapine 25 MG Tablet PO SCH (21:51)
[2018-01-11] MEDS: Oral Hygiene Kit OROPHARYNG SCH ×4 (00:24→15:49)
[2018-01-11] MEDS: Insulin NovoLIN Regular Correctional Sugar Inj SQ SCH ×4 (00:24→18:32)
[2018-01-11] MEDS: Propofol 1000 mg/100 ml Inj 1,000 MG/100 ML BOTTLE IV.CONT PRN ×4 (01:51→22:28)
--- NOTE | 2018-01-11 01:59 | XR ---
EXAM DATE: 01/11/2018 1:47 AM EST AGE/SEX: 62 years / Female INDICATIONS: Shortness of breath, possible pulmonary disease. CLINICAL DATA: This is the patient's subsequent encounter. Patient reports that signs and symptoms h ave been present for 1 month and indicates a pain score of Nonresponsive. MEDICAL/SURGICAL HISTORY: Hypertension. Chest tube, right. COMPARISON: [facility] [place], CHEST 1V SINGLE AP, 01/10/2018. . FINDINGS: Single AP view the chest. Endotracheal tube, nasogastric tube, right IJ central venous catheter remai n in place. Right-sided chest tubes also remain in place. Persistent bilateral pulmonary opacity. No significant interval change. No evidence of pneumothorax. Cardiomediastinal silhouette unchanged. CONCLUSION: No significant interval change. Bilateral pulmonary opacity again seen. Electronically signed by: Jerry Fonseca MD 01/11/2018 1:58 AM EST
[2018-01-11] MEDS: Piperacil/Tazo 4.5 GM Premix 4.5 GM/100 ML BAG IV.SIG SCH ×3 (04:32→15:47)
[2018-01-11 04:56] LABS: Baso # (Auto) 0.1 th/mm3 (0.0-0.2); Baso % (Auto) 0.5 % (0.0-2.0); Eos # (Auto) 0.9 th/mm3 (0.0-0.4); Eos % (Auto) 8.6 % (0.0-4.0); Hemoglobin 10.6 gm/dL (11.6-15.3); Lymph # (Auto) 1.8 th/mm3 (1.0-4.8); Lymph % (Auto) 17.1 % (9.0-44.0); Mean Corpuscular HGB Conc 34.2 % (32.0-36.0); Mean Corpuscular Hemoglobin 31.3 pg (27.0-34.0); Mean Corpuscular Volume 91.5 fL (80.0-100.0); Mean Platelet Volume 8.3 fL (7.0-11.0); Mono # (Auto) 0.9 th/mm3 (0.0-0.9); Mono % (Auto) 8.6 % (0.0-8.0); Neut # (Auto) 6.9 th/mm3 (1.8-7.7); Neut % (Auto) 65.2 % (16.0-70.0); Platelet Count 354 th/mm3 (150-450); Red Blood Count 3.38 mil/mm3 (4.00-5.30); Red Cell Distribution Width 15.9 % (11.6-17.2); White Blood Count 10.6 th/mm3 (4.0-11.0)
[2018-01-11 05:27] LABS: Albumin 1.8 g/dL (3.4-5.0); Anion Gap 9 meq/L (5-15); Aspartate Aminotransferase 26 U/L (15-37); Blood Urea Nitrogen 15 mg/dL (7-18); Calcium 8.2 mg/dL (8.5-10.1); Carbon Dioxide 28.1 meq/L (21.0-32.0); Chloride 106 meq/L (98-107); Glomerular Filtration Rate Greater Than 89 mL/min (>89); Glucose,Random 108 mg/dL (74-106); Potassium 3.6 meq/L (3.5-5.1); Sodium 143 meq/L (136-145)
[2018-01-11] MEDS: Heparin - SQ 10,000 UNITS/ML Vial SQ SCH ×3 (05:27→21:28)
[2018-01-11 05:30] LABS: Alanine Aminotransferase 13 U/L (10-53); Alkaline Phosphatase 91 U/L (45-117); Phosphorus 4.4 mg/dL (2.5-4.9); Total Protein 6.4 g/dL (6.4-8.2)
[2018-01-11] MEDS: Senna/Docusate Sodium 8.6/50 MG Tablet PO SCH ×2 (08:01→20:00)
[2018-01-11] MEDS: Potassium Chloride 25 MEQ Effervescent Tablet NG/OG SCH (08:01)
[2018-01-11] MEDS: fentaNYL 10 mcg/mL Premix Drip 2,500 MCG/250 ML BAG IV.SIG PRN ×2 (08:01→17:08)
[2018-01-11] MEDS: Sodium Chloride 0.9% 2 ML Flush BID IV.FLUSH SCH ×2 (08:02→20:00)
[2018-01-11] MEDS: Carboxymethylcellulose 0.5% Opth Drops 15 ML Bottle EACH EYE SCH ×2 (08:02→20:00)
[2018-01-11] MEDS: Famotidine 20 MG Tablet PO SCH ×2 (08:02→20:00)
[2018-01-11] MEDS: Polyethylene Glycol 3350 17 GM Packet PO SCH ×2 (08:02→20:00)
[2018-01-11] MEDS: Chlorhexidine 0.12% Oral Kit 15 ML UDC OROPHARYNG SCH ×2 (08:02→19:58)
[2018-01-11] MEDS: Collagenase Oint 30 GM Tube TOPICAL SCH (08:02)
[2018-01-11 11:37] LABS: Eosinophils 8 % (0-4); Lymphocytes 12 % (9-44); Metamyelocytes 4 % (0-1); Monocytes 4 % (0-8); Myelocytes 1 % (0-0); Platelet Estimate Normal (Normal); Platelet Morphology Normal (Normal); RBC Morphology Normal (Normal)
[2018-01-11] MEDS ORDERED: Midazolam Inj 5 MG/ML 1 ML Vial ONE ×2 (14:10)
--- NOTE | 2018-01-11 14:52 | P.PNCV ---
- Note Subjective/Hospital Course: pt now has 3 right sided chest tube #3 has 2-3 = air leak , #2 +1 all to 40cm suction pt now off pressors remains sedated on vent 55% fio2 +8 peep may need to re-eval for repeat ct scan in am pt will not tolerate one lung ventilation at this during any surgery will continue to monitor 12/23 pt now on 75% Fi02 peep down to 5 , no on flolan sub q emphysema with some improvement chest x 3 apical #3 +2 continuous air leak mid #2 + 1 air leak lower #1 no air leak all to 40 cm suction will monitor 12/26 Hemodynamically and clinically better One chest tube removed. 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 air leak at site all chest tube site area cleansed with chlorhexidine, iodoform gauze to old chest tube site vaseline gauze to other chest tubes / dry dressing applied / also # 2 chest tube had kink placed 2 tongue depressors along side of tube top prevent kinking and taped to chest pt still had +1-2 air leak in #3 chest tube 01/04 ct chest reviewed stable / improved, no air leak in chest tubes at present continue to monitor / no surgery indicated at present with: Improving pneumomediastinum, pneumopericardium and subcutaneous emphysema. Near complete resolution of previous right pneumothorax. 01/[address] Joseph and Dr Garces pt does have air leak when turned to left +2 , discussed with Dr Marquez/ covering for Dr Lynn will proceed with surgery on Thursday right thoracotomy, decortication, bleb resection / discussed with 01/07 pt on CPAP trials, still has + 2 air leak #3 marked chest tube for surgery on am 01/08 surgery Preoperative Diagnosis (1) Loculated pleural effusion (2) Bronchopleural fistula Postoperative Diagnosis: same Date of procedure: 01/08/18 Procedure: Right thoracoscopic decortication, closure of bronchopleural fistula Debridement and irrigation of the prior chest tube wounds (3 01/09/18 Intubated, sedated 01/10 on vent PRVC mode for trach today chest tube to 20cm suction, no air leak Objective: Vital Signs - 24 hr 01/10/18 15:00 01/10/18 15:39 01/10/18 15:55 Temperature Pulse Rate 102 H 100 H Respiratory Rate 19 16 19 Blood Pressure 137/80 Pulse Oximetry 99 98 01/10/18 16:00 01/10/18 17:00 01/10/18 18:00 Temperature Pulse Rate 100 H 100 H 110 H Respiratory Rate 18 19 28 H Blood Pressure 132/76 125/72 136/90 Pulse Oximetry 98 99 99 01/10/18 19:00 01/10/18 19:40 01/10/18 20:00 Temperature 98.4 F Pulse Rate 96 H 110 H Respiratory Rate 17 21 27 H Blood Pressure 134/76 148/87 H Pulse Oximetry 100 98 98 01/10/18 20:21 01/10/18 21:00 01/10/18 22:00 Temperature 98.5 F Pulse Rate 109 H 97 H 97 H Respiratory Rate 21 15 16 Blood Pressure 121/70 130/76 Pulse Oximetry 98 99 01/10/18 22:25 01/10/18 23:00 01/10/18 23:45 Temperature 98.9 F Pulse Rate 100 H Respiratory Rate 20 16 Blood Pressure 122/72 Pulse Oximetry 100 97 98 01/10/18 23:53 01/11/18 00:00 01/11/18 01:00 Temperature 99.0 F Pulse Rate 109 H 116 H 112 H Respiratory Rate 25 H 27 H 21 Blood Pressure 149/84 H 134/82 Pulse Oximetry 97 99 01/11/18 01:35 01/11/18 02:00 01/11/18 03:00 Temperature 99.2 F Pulse Rate 108 H 115 H Respiratory Rate 20 18 26 H Blood Pressure 136/79 152/91 H Pulse Oximetry 98 100 98 01/11/18 03:54 01/11/18 04:00 01/11/18 04:25 Temperature 100 F H Pulse Rate 110 H 114 H Respiratory Rate 22 21 20 Blood Pressure 168/99 H Pulse Oximetry 98 98 01/11/18 05:00 01/11/18 05:30 01/11/18 06:00 Temperature Pulse Rate 114 H 106 H 107 H Respiratory Rate 18 21 18 Blood Pressure 140/81 120/81 128/76 Pulse Oximetry 100 99 97 01/11/18 07:00 01/11/18 07:10 01/11/18 08:00 Temperature 100.4 F H Pulse Rate 104 H 101 H 96 H Respiratory Rate 17 15 17 Blood Pressure 148/80 H 133/79 Pulse Oximetry 98 98 99 01/11/18 09:00 01/11/18 10:00 01/11/18 11:00 Temperature Pulse Rate 110 H 110 H 122 H Respiratory Rate 18 16 16 Blood Pressure 149/89 H 138/86 164/99 H Pulse Oximetry 99 97 98 01/11/18 11:01 01/11/18 12:00 01/11/18 12:02 Temperature 100.5 F H Pulse Rate 117 H 118 H Respiratory Rate 18 16 22 Blood Pressure 172/96 H Pulse Oximetry 98 98 98 01/11/18 12:38 01/11/18 13:00 Temperature Pulse Rate 110 H 107 H Respiratory Rate 14 14 Blood Pressure 130/83 Pulse Oximetry 99 99 GENERAL: sedated on vent SKIN: Warm and dry. HEAD: Normocephalic. EYES: No scleral icterus. No injection or drainage. NECK: Supple, trachea midline. No JVD or lymphadenopathy. CARDIOVASCULAR: Regular rate and rhythm without murmurs, gallops, or rubs. RESPIRATORY: coarse bilateral breath sounds right lateral chest tubes x 2 no air leak , minimal subq emphysema Breath sounds equal bilaterally. No accessory muscle use. GASTROINTESTINAL: Abdomen soft, non-tender, nondistended. MUSCULOSKELETAL: No cyanosis, or edema. BACK: Nontender without obvious deformity. No CVA tenderness. Labs: Laboratory Results - last 12 hr 01/11/18 01/11/18 01/11/18 04:40 04:40 04:40 WBC 10.6 RBC 3.38 L Hgb 10.6 L Hct 31.0 L MCV 91.5 MCH 31.3 MCHC 34.2 RDW 15.9 Plt Count 354 MPV 8.3 Prelim Diff (Auto) Slide review pending Neut % (Auto) 65.2 Lymph % (Auto) 17.1 [place] % (Auto) 8.6 H Eos % (Auto) 8.6 H Baso % (Auto) 0.5 Neut # (Auto) 6.9 Lymph # (Auto) 1.8 [place] # (Auto) 0.9 Eos # (Auto) 0.9 H Baso # (Auto) 0.1 WBC Differential Manual diff final Seg Neuts % (Manual) 49 Band Neuts % (Manual) 21 H Lymphocytes % (Manual) 12 Monocytes % (Manual) 4 Eosinophils % (Manual) 8 H Basophils % (Manual) 1 Metamyelocytes % (Man) 4 H Myelocytes % (Man) 1 H Abs Neuts (Manual) 8.0 H Differential Comment . Platelet Estimate Normal Platelet Morphology Normal RBC Morphology Normal Sodium 143 Potassium 3.6 D Chloride 106 Carbon Dioxide 28.1 Anion Gap 9 BUN 15 Creatinine 0.40 L Estimated GFR Greater than 89 POC Glucose Random Glucose 108 H Calcium 8.2 L Phosphorus 4.4 D Magnesium 2.0 Total Bilirubin 0.3 AST 26 ALT 13 Alkaline Phosphatase 91 Ammonia 29 Total Protein 6.4 Albumin 1.8 L 01/11/18 12:17 WBC RBC Hgb Hct MCV MCH MCHC RDW Plt Count MPV Prelim Diff (Auto) Neut % (Auto) Lymph % (Auto) [place] % (Auto) Eos % (Auto) Baso % (Auto) Neut # (Auto) Lymph # (Auto) [place] # (Auto) Eos # (Auto) Baso # (Auto) WBC Differential Seg Neuts % (Manual) Band Neuts % (Manual) Lymphocytes % (Manual) Monocytes % (Manual) Eosinophils % (Manual) Basophils % (Manual) Metamyelocytes % (Man) Myelocytes % (Man) Abs Neuts (Manual) Differential Comment Platelet Estimate Platelet Morphology RBC Morphology Sodium Potassium Chloride Carbon Dioxide Anion Gap BUN Creatinine Estimated GFR POC Glucose 89 Random Glucose Calcium Phosphorus Magnesium Total Bilirubin AST ALT Alkaline Phosphatase Ammonia Total Protein Albumin Result Diagrams: 01/11/18 04:40 01/11/18 04:40 - Plan (1) Respiratory failure Plan: on vent 35% / for trach today leave chest tube in until trached and off vent (2) Pneumonia (1) Respiratory failure Qualifiers: Chronicity: acute Respiratory failure complication: hypoxia and hypercapnia Qualified Code(s): J96.01 - Acute respiratory failure with hypoxia; J96.02 - Acute respiratory failure with hypercapnia (2) Pneumonia Qualifiers: Pneumonia type: due to unspecified organism Laterality: bilateral Lung location: unspecified part of lung Qualified Code(s): J18.9 - Pneumonia, unspecified organism
--- NOTE | 2018-01-11 15:39 | P.PCN ---
Date of procedure: 01/11/18 Pre-op diagnosis: Acute hypoxic and hypercarbic respiratory failure Post-op diagnosis: same Procedure: Percutaneous tracheostomy The patient was positioned in the supine position and the ventilator was placed on 100% FiO2. A time out was called and the patient was identified by 2 patient identifiers on her wrist band. She was given versed and rocuronium prior to the procedure (please see MAR for details). Myself and Dr. Jennings both performed hand hygiene and wore sterile gowns, gloves, masks, and hats. The patient was prepped with Chloraprep and allowed to dry completely. She was draped in a sterile manner, the site was identified using landmarks/ palpation, and the skin was anesthetized with 10 cc of 1% lidocaine with epinephrine. A midline skin incision was then made was a #11 blade scalpel. A bronchoscopy was performed separately by Dr. Joseph (please see separate procedure note) and a needle was inserted into the trachea at the level of the 3rd tracheal ring under direct visualization by bronch. A guidewire was then inserted via Seldinger technique, dilated with Blue Rhino dilator, and an 8-0 cuffed Shiley was placed with inflation of the cuff. The guidewire was removed and the bronchoscope was used to confirm that the tracheostomy was in appropriate position. The inner cannula was then placed and secured, the tracheostomy was secured with skin sutures, and a tube marino was attached. A CXR is ordered and pending. Anesthesia: local (IV sedation) Surgeon: Dilma Quiñones Field Consultant: Anson Jennings Estimated blood loss (mL): 5 Pathology: none sent Condition: stable Disposition: ICU
--- NOTE | 2018-01-11 16:41 | XR ---
EXAM DATE: 01/11/2018 4:33 PM EST AGE/SEX: 62 years / Female INDICATIONS: Status post tracheostomy placement. CLINICAL DATA: This is the patient's subsequent encounter. Patient reports that signs and symptoms h ave been present for 1 day and indicates a pain score of Nonresponsive. MEDICAL/SURGICAL HISTORY: Hypertension. None. COMPARISON: [facility] – [place], CHEST 1V SINGLE AP, 01/11/2018. . FINDINGS: A single AP portable semierect view of the chest was obtained and demonstrates interval extubation an d removal of nasogastric tube. The right internal jugular central venous line remains in place. There has been interval placement of a tracheostomy tube. Bilateral hazy parenchymal opacities remain righ t greater than left. The heart size remains within normal limits. ET tube previously noted right ches t tubes remains in place. There is right apical pleural parenchymal changes again noted without rodriguez e. There is no pneumothorax. CONCLUSION: 1. Interval placement of tracheostomy tube. The endotracheal tube and nasogastric tube have been rem michael. 2. 2 right-sided chest tube in place with right apical pleural parenchymal change. 3. Hazy opacity remains in both lungs without change right greater than left. Electronically signed by: Evert Gomez MD 01/11/2018 4:39 PM EST
--- NOTE | 2018-01-11 16:56 | P.PNID ---
Subjective Remarks: sp BP fistul;a repair stable doing well post op planned for trach tomorrow op tissue specimen is negative Antibiotics: zosyn vanco PO micafungin Lines: Lines ok Past Medical History: reviewed Allergies/Adverse Reactions: Allergies No Known Allergies Allergy (Verified 12/13/17 08:04) Objective Vital Signs 01/10/18 17:00 01/10/18 18:00 01/10/18 19:00 Temperature Pulse Rate 100 H 110 H 96 H Respiratory Rate 19 28 H 17 Blood Pressure 125/72 136/90 134/76 Pulse Oximetry 99 99 100 01/10/18 19:40 01/10/18 20:00 01/10/18 20:21 Temperature 98.4 F Pulse Rate 110 H 109 H Respiratory Rate 21 27 H 21 Blood Pressure 148/87 H Pulse Oximetry 98 98 01/10/18 21:00 01/10/18 22:00 01/10/18 22:25 Temperature 98.5 F Pulse Rate 97 H 97 H Respiratory Rate 15 16 20 Blood Pressure 121/70 130/76 Pulse Oximetry 98 99 100 01/10/18 23:00 01/10/18 23:45 01/10/18 23:53 Temperature 98.9 F Pulse Rate 100 H 109 H Respiratory Rate 16 25 H Blood Pressure 122/72 Pulse Oximetry 97 98 01/11/18 00:00 01/11/18 01:00 01/11/18 01:35 Temperature 99.0 F Pulse Rate 116 H 112 H Respiratory Rate 27 H 21 20 Blood Pressure 149/84 H 134/82 Pulse Oximetry 97 99 98 01/11/18 02:00 01/11/18 03:00 01/11/18 03:54 Temperature 99.2 F Pulse Rate 108 H 115 H 110 H Respiratory Rate 18 26 H 22 Blood Pressure 136/79 152/91 H Pulse Oximetry 100 98 01/11/18 04:00 01/11/18 04:25 01/11/18 05:00 Temperature 100 F H Pulse Rate 114 H 114 H Respiratory Rate 21 20 18 Blood Pressure 168/99 H 140/81 Pulse Oximetry 98 98 100 01/11/18 05:30 01/11/18 06:00 01/11/18 07:00 Temperature Pulse Rate 106 H 107 H 104 H Respiratory Rate 21 18 17 Blood Pressure 120/81 128/76 148/80 H Pulse Oximetry 99 97 98 01/11/18 07:10 01/11/18 08:00 01/11/18 09:00 Temperature 100.4 F H Pulse Rate 101 H 96 H 110 H Respiratory Rate 15 17 18 Blood Pressure 133/79 149/89 H Pulse Oximetry 98 99 99 01/11/18 10:00 01/11/18 11:00 01/11/18 11:01 Temperature Pulse Rate 110 H 122 H Respiratory Rate 16 16 18 Blood Pressure 138/86 164/99 H Pulse Oximetry 97 98 98 01/11/18 12:00 01/11/18 12:02 01/11/18 12:38 Temperature 100.5 F H Pulse Rate 117 H 118 H 110 H Respiratory Rate 16 22 14 Blood Pressure 172/96 H 130/83 Pulse Oximetry 98 98 99 01/11/18 13:00 01/11/18 14:00 01/11/18 14:49 Temperature Pulse Rate 107 H 102 H 101 H Respiratory Rate 14 14 20 Blood Pressure 88/59 L Pulse Oximetry 99 99 99 01/11/18 14:55 01/11/18 15:00 01/11/18 15:05 Temperature Pulse Rate 106 H 104 H 101 H Respiratory Rate 20 20 20 Blood Pressure 82/53 L 88/58 L 90/58 L Pulse Oximetry 99 99 99 01/11/18 15:10 01/11/18 15:15 01/11/18 15:20 Temperature Pulse Rate 107 H 105 H 106 H Respiratory Rate 15 24 22 Blood Pressure 178/107 H 145/90 H 171/99 H Pulse Oximetry 99 99 99 01/11/18 15:25 01/11/18 15:30 01/11/18 15:35 Temperature Pulse Rate 106 H 105 H 103 H Respiratory Rate 20 20 20 Blood Pressure 154/90 H 143/81 H 133/73 Pulse Oximetry 99 100 100 01/11/18 15:40 01/11/18 15:45 01/11/18 15:50 Temperature Pulse Rate 101 H 101 H 100 H Respiratory Rate 24 24 20 Blood Pressure 134/92 H 139/90 121/82 Pulse Oximetry 100 100 100 01/11/18 16:00 01/11/18 16:33 Temperature Pulse Rate 99 H Respiratory Rate 20 16 Blood Pressure 127/81 Pulse Oximetry 100 99 Intake & Output 01/10/18 01/11/18 01/11/18 18:59 06:59 18:59 Intake Total 500 / 500 1276 / 1276 350 / 350 Output Total 1860 / 1860 855 / 855 Balance -1360 / -1360 421 / 421 350 / 350 Weight 68.4 kg Intake: IV 500 / 500 700 / 700 350 / 350 Diprivan 1000 mg/100 ml Inj 1, 200 / 200 200 / 200 000 mg In 100 ml @ 5 MCG/KG/MIN 2.904 mls/hr IV.CONT TITRATE PRN Rx#:[id number] Magnesium Sulfate 1 gm/D5W 100 100 / 100 100 / 100 ml Premix 100 ML @ 100 mls/hr IV.SIG Q1H BENJAMIN Rx#:[id number] Mycamine Inj 150 MG In NS Inj 100 / 100 100 / 100 100 ML @ 100 mls/hr IV.SIG Q24H BEN[place]IN Rx#:[id number] Zosyn 4.5 GM Premix 4.5 gm In 100 / 100 300 / 300 100 / 100 100 ml @ 200 mls/hr IV.SIG Q6H BENJAMIN Rx#:[id number] fentaNYL 10 mcg/mL Premix Drip 250 / 250 2,500 mcg In 250 ml @ 50 MCG/HR 5 mls/hr IV.SIG TITRATE PRN Rx #:[id number] Tube Feeding 576 / 576 Output: Stool 280 / 280 Pleural Fluid 60 / 60 Urine Amount (Catheter) 1800 / 1800 575 / 575 Straight 1800 / 1800 575 / 575 Other: # Incontinent Voids 2 Date of Last Bowel Movement 01/10/18 01/11/18 01/11/18 # Incontinent Bowel Movements 3 01/10/18 01:30 Catheterized Urine Urine Culture - Preliminary No growth in 24 hours 01/08/18 09:30 Tissue - Other Acid Fast Bacilli Smear - Final No acid fast bacilli seen 01/08/18 09:30 Tissue - Other Mycobacterial Culture - Pending 01/08/18 09:30 Tissue - Other Gram Stain - Final 01/08/18 09:30 Tissue - Other Wound Culture - Final No growth in 72 hours (aerobically and anaerobically ) 12/19/17 11:30 Bronchial Washings - Bronchial Acid Fast Bacilli Smear - Final No acid fast bacilli seen 12/19/17 11:30 Bronchial Washings - Bronchial Mycobacterial Culture - Preliminary No growth in 3 weeks 01/08/18 09:30 Tissue - Other Fungal Smear - Final No fungal elements seen 01/08/18 09:30 Tissue - Other Fungal Culture - Pending Lab - Hematology Results 01/10/18 01/11/18 05:40 04:40 WBC 10.9 10.6 RBC 3.25 L 3.38 L Hgb 10.2 L D 10.6 L Hct 30.2 L 31.0 L MCV 92.8 D 91.5 MCH 31.3 31.3 MCHC 33.7 34.2 RDW 16.7 15.9 Plt Count 291 354 MPV 8.5 8.3 Prelim Diff (Auto) Slide review pending Slide review pending Neut % (Auto) 64.1 65.2 Lymph % (Auto) 18.6 17.1 [place] % (Auto) 9.8 H 8.6 H Eos % (Auto) 6.8 H 8.6 H Baso % (Auto) 0.7 0.5 Neut # (Auto) 7.0 6.9 Lymph # (Auto) 2.0 1.8 [place] # (Auto) 1.1 H 0.9 Eos # (Auto) 0.7 H 0.9 H Baso # (Auto) 0.1 0.1 WBC Differential Manual diff final Manual diff final Seg Neuts % (Manual) 52 49 Band Neuts % (Manual) 15 H 21 H Lymphocytes % (Manual) 18 12 Monocytes % (Manual) 7 4 Eosinophils % (Manual) 4 8 H Basophils % (Manual) 1 1 Metamyelocytes % (Man) 2 H 4 H Myelocytes % (Man) 1 H 1 H Abs Neuts (Manual) 7.6 8.0 H Differential Comment . . Platelet Estimate Normal Normal Platelet Morphology Normal Normal RBC Morphology Normal Lab - Chemistry Results 01/09/18 01/09/18 01/10/18 17:45 17:47 00:14 Sodium 148 H Potassium 3.4 L D Chloride 111 H Carbon Dioxide 28.6 Anion Gap 8 BUN 15 Creatinine 0.53 Estimated GFR Greater than 89 POC Glucose 119 H 99 Random Glucose 113 H Calcium 8.0 L Phosphorus Magnesium Total Bilirubin AST ALT Alkaline Phosphatase Ammonia Total Protein Albumin 01/10/18 01/10/18 01/10/18 05:14 05:40 11:47 Sodium 146 H Potassium 3.4 L Chloride 110 H Carbon Dioxide 26.7 Anion Gap 9 BUN 15 Creatinine 0.47 L Estimated GFR Greater than 89 POC Glucose 96 87 Random Glucose 107 H Calcium 8.0 L Phosphorus 3.3 Magnesium 1.8 Total Bilirubin 0.3 AST 23 ALT 13 Alkaline Phosphatase 86 Ammonia Total Protein 6.1 L Albumin 1.6 L 01/10/18 01/10/18 01/11/18 18:10 18:27 00:13 Sodium Potassium 5.0 D Chloride Carbon Dioxide Anion Gap BUN Creatinine Estimated GFR POC Glucose 78 92 Random Glucose Calcium Phosphorus Magnesium Total Bilirubin AST ALT Alkaline Phosphatase Ammonia Total Protein Albumin 01/11/18 01/11/18 01/11/18 04:40 04:40 12:17 Sodium 143 Potassium 3.6 D Chloride 106 Carbon Dioxide 28.1 Anion Gap 9 BUN 15 Creatinine 0.40 L Estimated GFR Greater than 89 POC Glucose 89 Random Glucose 108 H Calcium 8.2 L Phosphorus 4.4 D Magnesium 2.0 Total Bilirubin 0.3 AST 26 ALT 13 Alkaline Phosphatase 91 Ammonia 29 Total Protein 6.4 Albumin 1.8 L Imaging: ITS Impressions Head CT 12/17/17 08:02 CONCLUSION: 1. 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 2. Otherwise negative. . Abdomen/Pelvis CT 12/17/17 10:45 CONCLUSION: 1. Moderate diffuse colonic wall thickening exaggerated by lack of colonic distention. This may be due to low-protein state/edema. However, differential considerations include infectious and inflammatory colitis. 2. Moderate-sized right hydropneumothorax with airspace disease in the lung bases as described on chest CT. 3. Additional ancillary findings, as above. Chest CT 01/03/18 11:56 CONCLUSION: 1. Consolidation at both lung bases has improved. Cavitary lesions on the right are slightly larger as measured above. 2. Improving pneumomediastinum, pneumopericardium and subcutaneous emphysema. Near complete resolution of previous right pneumothorax. 2 right chest tubes present. Trace pleural fluid present. 3. Patchy airspace disease remains in the lungs probably with some fibrotic changes well. 4. Endotracheal tube and nasogastric tube in good position. Chest X-Ray 01/11/18 15:27 CONCLUSION: 1. Interval placement of tracheostomy tube. The endotracheal tube and nasogastric tube have been removed. 2. 2 right-sided chest tube in place with right apical pleural parenchymal change. 3. Hazy opacity remains in both lungs without change right greater than left. Physical Exam: GENERAL: sedated int'd on mech vent'n SKIN: Warm and dry. No rash EYES: No scleral icterus. No injection or drainage. ENT: No nasal bleeding or discharge. Mucous membranes pink and moist. NECK: Trachea midline. No JVD. CARDIOVASCULAR: Regular rate and rhythm RESPIRATORY: No accessory muscle use. scattered rhonchi to auscultation. CT x R side GASTROINTESTINAL: Abdomen soft, non-tender, distended. Hepatic and splenic margins not palpable. MUSCULOSKELETAL: Extremities without clubbing, cyanosis, less edema. No obvious deformities. NEUROLOGICAL: sedated, more responsive PSYCHIATRIC: unable to assess Assessment and Plan - Plan Sepsis (fever, leucocytosis) ongoing possible new. Coag neg staph likely pseudobacteremia Strep viridans: ? related to empyema torie Strep. 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
--- NOTE | 2018-01-11 17:59 | P.PCN ---
Date of procedure: 01/11/18 Pre-op diagnosis: Bronchoscopy Post-op diagnosis: same Procedure: DATE: 01/11/2018 Fiberoptic bronchoscopy for percutaneous tracheostomy INDICATION: Percutaneous tracheostomy placed #8 Shiley CONSENT Informed consent for procedure was obtained from DESCRIPTION OF THE PROCEDURE The patient was placed in supine position. Patient was on HI VC ventilation. FiO2 80%. Patient received 5 mg midazolam and 50 mg rocuronium. I entered the 8.0 ET tube with the fiberoptic bronchoscope. The tube was withdrawn to [address] Koch has a note for procedure. After insertion of the right Shiley tracheostomy, inspected the right and left lung. These were suctioned of blood until cleared. Scope was withdrawn. Tidal volumes 4-500 times attempted with saturation remained above 95% the entire time. ESTIMATED BLOOD LOSS: Minimal COMPLICATIONS: No apparent complications. STAT chest x-ray revealed no pneumothorax.
--- NOTE | 2018-01-11 18:03 | P.PNCC ---
Subjective Subjective Remarks/Hospital Course: This is a 62yF who was originally admitted on 11/23 with a diagnosis of colitis, found to have enterovirus. discharged on 12/11 at that time on PO vancomycin, but came back on 12/13 with altered mental status and hypoglycemia, again discharged on 12/15. She was mildly fatigued on 12/16 according to her and asked to wait another day before traveling back to her home in [place]. This morning, she was unarousable and her called 911. She was intubated upon arrival to the emergency department for agonal respirations. CXR demonstrates bilateral multifocal pneumonia. She is febrile, hypotensive. CVL placed in the ER and vasopressors initiated after 2L bolus crystalloid. CT chest/abd/pelvis demonstrates right pneumothorax, densely consolidated right lower lobe, bilateral pulmonary infiltrates, evidence of ongoing colitis. Patient continue to be unstable. Immediately after identifying ptx on CT scan, I emergently placed right chest tube with some improvements in hemodynamics, but ongoing distributive shock persists. I placed arterial line. No additional information available from the patient, ROS unobtainable. In discussion with the , she has not had any new complaints in the 48h she was home, and other than mild fatigue last night, no new complaints. She was able to walk to the bathroom without assistance yesterday. 12/18: shock remains. now on levophed, vasopressin, phenylephrine. second chest tube placed overnight for worsening SQ air. acidosis remains and is severe. 12/19: Afebrile. Remains on vasopressin drip only. On stress dose hydrocortisone. Evaluated by CT surgery. Not a candidate for intervention at the present time. Chest tube continues to leak. Epoprostenol added today 12/20: Afebrile. FiO2 has decreased and is currently 70%. Currently replacing potassium, phosphorus and magnesium. Recheck later this afternoon. Less chest tube leak today down to 1 chamber. 12/21: Overnight, worsening subcutaneous emphysema. A third chest tube placed by overnight net software architect after discussion with cardiothoracic surgery. Currently hemodynamically stable. Replacing phosphorus today. To be evaluated by CT surgery today. 12/22: Remains sedated, orally intubated on mechanical ventilation. Persistent air leak and chest tube noted. 12/23: Remains sedated, orally intubated on mechanical ventilation. Air leak persists though slightly improved. PEEP at +5 FiO2 55%, inhaled Flolan continues. Central line replaced with right IJ triple-lumen catheter. 12/24: Remains sedated, orally intubated on mechanical ventilation. 1+ air leak from chest tube 3 noted. PEEP +5, FiO2 60%, inhaled Flolan continues. Decreasing subcutaneous emphysema noted. 12/25: Remains sedated, orally improved on mechanical ventilation. 1+ for leak from chest tube 2. PEEP +5, FiO2 50%. Starting to titrate inhaled Flolan down today. Initiating Lasix to mobilize fluid. 12/26: remains intubated. air leak continues from chest tube #3. drainage out of #1 and #2 are very serous. #1 was removed by myself today. all chest tube dressings changed by me today. repeat CXR pending. very volume overloaded. starting to diurese. off vasopressors. off pathway: still high fio2 requirements. 12/27: good diuresis overnight. very hypokalemic today and aggressively replacing. CXR unchanged. air leak unchanged. long discussion over long-term and short-term prognosis and plan of care with entire family today. all questions answered. 12/28: Continues to diurese. Remains on mechanical ventilation. Positive air leak in chest tube 3. 1 unit PRBCs transfused earlier for hemoglobin 6.9. 12/29: Remains on mechanical ventilation. Increasing subcutaneous emphysema noted. Air leak stopped and chest tube #2 and 3 currently. Flolan being titrated down. Chest x-ray shows appropriate positioning of 2 chest tubes with the more medial small right pneumothorax with significant subcutaneous emphysema bilaterally. Patient remains off pressors and is being diuresed to mobilize fluid. 12/30: volume removal continues. Cr still at baseline. fio2 down to 40% and off inhaled Flolan. discussed with Dr. Lynn: will need to wait at least until next week for VATS. Will need trach going forward: discussed with family and they are agreeable. Dr. Lynn asked that both chest tubes remain in place. air leak persists. remains intubated and sedated. 12/31: Sedated, orally intubated on mechanical ventilation. On 40% FiO2 PEEP + 5. Positive air leak in chest tube [address] surgery planning for VATS next week, will need tracheostomy coordinated as well. 01/01: Remains sedated, orally intubated on mechanical ventilation. PEEP +5, FiO2 35%. Being diuresed. 01/02: Sedated, orally intubated on mechanical ventilation. PEEP +5, FiO2 35%. Intermittent air leak in chest tube 3. Being diuresed 01/03: persistent air leak. hypoxia improving. discussed case with Dr. Lynn- he would like pre-operative CT chest for surgical planning. we also discussed timing of tracheostomy: it would be easier surgically to have ett in place to place double-lumen ett, so he would prefer to keep ett until after operation, and then proceed with tracheostomy. tentatively VATS planned for Friday 01/05. 01/04: No events over the night. Patient remains sedated and intubated, sedation achieved with fentanyl and propofol. T-max of 100.2 over the last 24 hours. I/O 3770/3130. Chest tubes remain on suction. 01/05: T-max 99.3. Currently afebrile. Difficulty with weaning from ventilator noted. VATS currently on hold per CT surgery. 01/06: Resting comfortably in bed in no acute distress. Plan for thoracotomy rested on Thursday night. Currently on CPAP trial. Potassium being replaced. 01/07: Resting complaint bed in no acute distress. Plan for thoracotomy tomorrow a.m. 730. Currently on CPAP trial. Transfuse when he PRBC today. Hemoglobin currently 9.6 potassium 3.9. 01/08: Today, status post right thoracoscopic decortication, closure of bronchopleural fistula with debridement and irrigation of the prior chest tube wounds with placement of 2 #32 [place] chest tubes by cardiothoracic surgery patellar procedure well. EBL 250. Adequate urine output. Appears stable. 01/09: T-max 100.2. Currently tachycardic. Receiving 2 units PRBCs. Potassium being replaced. Agitated on the ventilator. 01/10: Twitching on the ventilator/tremor. Temperature max 100.2. 120 cc output from chest tube overnight. Still not arousable/following commands on the ventilator. Likely tracheostomy Subjective 01/11: T-max 100.5. Status post #8 [facility] practice tracheostomy today. Order PEG tube for tomorrow. Arousable but not following commands. Thrashes back and forth. Objective Vital Signs / I&O: Vital Signs 01/10/18 18:00 01/10/18 19:00 01/10/18 19:40 Temperature Pulse Rate 110 H 96 H Respiratory Rate 28 H 17 21 Blood Pressure 136/90 134/76 Pulse Oximetry 99 100 98 01/10/18 20:00 01/10/18 20:21 01/10/18 21:00 Temperature 98.4 F Pulse Rate 110 H 109 H 97 H Respiratory Rate 27 H 21 15 Blood Pressure 148/87 H 121/70 Pulse Oximetry 98 98 01/10/18 22:00 01/10/18 22:25 01/10/18 23:00 Temperature 98.5 F 98.9 F Pulse Rate 97 H 100 H Respiratory Rate 16 20 16 Blood Pressure 130/76 122/72 Pulse Oximetry 99 100 97 01/10/18 23:45 01/10/18 23:53 01/11/18 00:00 Temperature 99.0 F Pulse Rate 109 H 116 H Respiratory Rate 25 H 27 H Blood Pressure 149/84 H Pulse Oximetry 98 97 01/11/18 01:00 01/11/18 01:35 01/11/18 02:00 Temperature 99.2 F Pulse Rate 112 H 108 H Respiratory Rate 21 20 18 Blood Pressure 134/82 136/79 Pulse Oximetry 99 98 100 01/11/18 03:00 01/11/18 03:54 01/11/18 04:00 Temperature 100 F H Pulse Rate 115 H 110 H 114 H Respiratory Rate 26 H 22 21 Blood Pressure 152/91 H 168/99 H Pulse Oximetry 98 98 01/11/18 04:25 01/11/18 05:00 01/11/18 05:30 Temperature Pulse Rate 114 H 106 H Respiratory Rate 20 18 21 Blood Pressure 140/81 120/81 Pulse Oximetry 98 100 99 01/11/18 06:00 01/11/18 07:00 01/11/18 07:10 Temperature Pulse Rate 107 H 104 H 101 H Respiratory Rate 18 17 15 Blood Pressure 128/76 148/80 H Pulse Oximetry 97 98 98 01/11/18 08:00 01/11/18 09:00 01/11/18 10:00 Temperature 100.4 F H Pulse Rate 96 H 110 H 110 H Respiratory Rate 17 18 16 Blood Pressure 133/79 149/89 H 138/86 Pulse Oximetry 99 99 97 01/11/18 11:00 01/11/18 11:01 01/11/18 12:00 Temperature 100.5 F H Pulse Rate 122 H 117 H Respiratory Rate 16 18 16 Blood Pressure 164/99 H Pulse Oximetry 98 98 98 01/11/18 12:02 01/11/18 12:38 01/11/18 13:00 Temperature Pulse Rate 118 H 110 H 107 H Respiratory Rate 22 14 14 Blood Pressure 172/96 H 130/83 Pulse Oximetry 98 99 99 01/11/18 14:00 01/11/18 14:49 01/11/18 14:55 Temperature Pulse Rate 102 H 101 H 106 H Respiratory Rate 14 20 20 Blood Pressure 88/59 L 82/53 L Pulse Oximetry 99 99 99 01/11/18 15:00 01/11/18 15:05 01/11/18 15:10 Temperature Pulse Rate 104 H 101 H 107 H Respiratory Rate 20 20 15 Blood Pressure 88/58 L 90/58 L 178/107 H Pulse Oximetry 99 99 99 01/11/18 15:15 01/11/18 15:20 01/11/18 15:25 Temperature Pulse Rate 105 H 106 H 106 H Respiratory Rate 24 22 20 Blood Pressure 145/90 H 171/99 H 154/90 H Pulse Oximetry 99 99 99 01/11/18 15:30 01/11/18 15:35 01/11/18 15:40 Temperature Pulse Rate 105 H 103 H 101 H Respiratory Rate 20 20 24 Blood Pressure 143/81 H 133/73 134/92 H Pulse Oximetry 100 100 100 01/11/18 15:45 01/11/18 15:50 01/11/18 16:00 Temperature Pulse Rate 101 H 100 H 99 H Respiratory Rate 24 20 20 Blood Pressure 139/90 121/82 127/81 Pulse Oximetry 100 100 100 01/11/18 16:33 Temperature Pulse Rate Respiratory Rate 16 Blood Pressure Pulse Oximetry 99 Intake & Output 01/10/18 01/11/18 01/11/18 18:59 06:59 18:59 Intake Total 500 / 500 1276 / 1276 700 / 700 Output Total 1860 / 1860 855 / 855 Balance -1360 / -1360 421 / 421 700 / 700 Weight 68.4 kg Intake: IV 500 / 500 700 / 700 700 / 700 Diprivan 1000 mg/100 ml Inj 1, 200 / 200 200 / 200 100 / 100 000 mg In 100 ml @ 5 MCG/KG/MIN 2.904 mls/hr IV.CONT TITRATE PRN Rx#:[id number] Magnesium Sulfate 1 gm/D5W 100 100 / 100 100 / 100 ml Premix 100 ML @ 100 mls/hr IV.SIG Q1H [facility] Rx#:[id number] Mycamine Inj 150 MG In NS Inj 100 / 100 100 / 100 100 ML @ 100 mls/hr IV.SIG Q24H [facility] Rx#:[id number] Zosyn 4.5 GM Premix 4.5 gm In 100 / 100 300 / 300 100 / 100 100 ml @ 200 mls/hr IV.SIG Q6H [facility] Rx#:[id number] fentaNYL 10 mcg/mL Premix Drip 500 / 500 2,500 mcg In 250 ml @ 50 MCG/HR 5 mls/hr IV.SIG TITRATE PRN Rx #:[id number] Tube Feeding 576 / 576 Output: Stool 280 / 280 Pleural Fluid 60 / 60 Urine Amount (Catheter) 1800 / 1800 575 / 575 Straight 1800 / 1800 575 / 575 Other: # Incontinent Voids 2 Date of Last Bowel Movement 01/10/18 01/11/18 01/11/18 # Incontinent Bowel Movements 3 Result Diagrams: 01/11/18 04:40 01/11/18 04:40 Other Results: Microbiology 01/10/18 01:30 Catheterized Urine Urine Culture - Preliminary No growth in 24 hours 01/08/18 09:30 Tissue - Other Acid Fast Bacilli Smear - Final No acid fast bacilli seen 01/08/18 09:30 Tissue - Other Gram Stain - Final 01/08/18 09:30 Tissue - Other Wound Culture - Final No growth in 72 hours (aerobically and anaerobically ) 12/19/17 11:30 Bronchial Washings - Bronchial Acid Fast Bacilli Smear - Final No acid fast bacilli seen 12/19/17 11:30 Bronchial Washings - Bronchial Mycobacterial Culture - Preliminary No growth in 3 weeks 01/08/18 09:30 Tissue - Other Fungal Smear - Final No fungal elements seen 12/17/17 15:55 Other - Final 01/01/18 22:07 Blood - Peripheral Aerobic Blood Culture - Final No growth in 5 days 01/01/18 22:07 Blood - Peripheral Anaerobic Blood Culture - Final No growth in 5 days 01/01/18 19:45 Blood - Peripheral Aerobic Blood Culture - Final No growth in 5 days 01/01/18 19:45 Blood - Peripheral Anaerobic Blood Culture - Final No growth in 5 days 01/02/18 17:28 Sputum - Endotracheal Gram Stain - Final 01/02/18 17:28 Sputum - Endotracheal Sputum Culture - Final Klebsiella pneumoniae 12/19/17 11:30 Bronchial Washings - Bronchial Fungal Smear - Final Rare budding yeast 12/19/17 11:30 Bronchial Washings - Bronchial Fungal Culture - Preliminary 12/17/17 15:55 Fluid - Pleural fluid Gram Stain - Final 12/17/17 15:55 Fluid - Pleural fluid Body Fluid Culture - Final Lactobacillus rhamnosus Karla glabrata Klebsiella pneumoniae 12/19/17 00:56 Fluid - Pleural fluid Gram Stain - Final 12/19/17 00:56 Fluid - Pleural fluid Body Fluid Culture - Final Karla glabrata Lactobacillus rhamnosus 12/19/17 00:30 Fluid - Pleural fluid Gram Stain - Final 12/19/17 00:30 Fluid - Pleural fluid Body Fluid Culture - Final Klebsiella pneumoniae Karla albicans Karla glabrata Lactobacillus rhamnosus 12/17/17 15:55 Other - Final 12/17/17 08:24 Blood - Peripheral Aerobic Blood Culture - Final No growth in 5 days 12/17/17 08:24 Blood - Peripheral Anaerobic Blood Culture - Final No growth in 5 days 12/17/17 08:10 Blood - Peripheral Aerobic Blood Culture - Final No growth in 5 days 12/17/17 08:10 Blood - Peripheral Anaerobic Blood Culture - Final Staphylococcus coag negative Viridans streptococcus grp 12/19/17 11:30 Bronchial - Bronchial Gram Stain - Final 12/19/17 11:30 Bronchial - Bronchial Bronchial Culture - Final Klebsiella pneumoniae 12/17/17 15:54 Sputum - Endotracheal Gram Stain - Final 12/17/17 15:54 Sputum - Endotracheal Sputum Culture - Final Klebsiella pneumoniae 12/17/17 15:55 Stool Stool for WBCs - Final Few WBC's 12/17/17 13:54 Urine - Catheterized Urine Streptococcus pneumoniae Antigen ( M - Final Presumptive negative for streptococcus pneumoniae antigen, suggesting no current or recent infection. Infection due to Streptococcus pneumoniae cannot be ruled out since the antigen present in the sample may be below the detection limit of the test. 12/17/17 13:54 Urine - Catheterized Urine Legionella Antigen - Final Presumptive negative for Legionella pneumophila serogroup 1 antigen in urine, suggesting no recent or recurrent infection. Infection due to Legionella cannot be ruled out since other serogroups and species may cause disease, antigen may not be present in urine in early infection, and the level of antigen present in the urine may be below the detection limit of the test. 12/17/17 15:55 Nasal Aspirate Influenza Types A,B Antigen - Final Negative for FLU A and B antigen Infection due to influenza A or B cannot be ruled out since the antigen present in the sample may be below the detection limit of the test. Imaging: Chest X-Ray 12/17/17 00:00 CONCLUSION: 1. Persistent bilateral airspace infiltrates. 2. Interval placement of a right-sided thoracostomy tube. There does appear to be an apical lateral 1.5 cm right pneumothorax. 3. Extensive subcutaneous and deep tissue emphysematous changes about the right hemithorax. Chest X-Ray 12/17/17 00:00 CONCLUSION: Right-sided chest tube with slight increase in right pneumothorax compared with earlier exam. Slight increase in left basilar airspace disease since earlier exam. Slight worsening of subcutaneous air with extension into the left hemithorax and neck. Chest X-Ray 12/17/17 08:02 CONCLUSION: Satisfactory support line and tube positioning. Bilateral infiltrates. Head CT 12/17/17 08:02 CONCLUSION: 1. 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 2. Otherwise negative. . Abdomen/Pelvis CT 12/17/17 10:45 CONCLUSION: 1. Moderate diffuse colonic wall thickening exaggerated by lack of colonic distention. This may be due to low-protein state/edema. However, differential considerations include infectious and inflammatory colitis. 2. Moderate-sized right hydropneumothorax with airspace disease in the lung bases as described on chest CT. 3. Additional ancillary findings, as above. Chest CT 12/17/17 10:45 CONCLUSION: 1. Small to moderate-sized right-sided hydropneumothorax. 2. Right lower lobe consolidation with air bronchograms. Differential considerations include aspiration and lobar pneumonia. 3. Patchy diffuse groundglass opacities most prominently in the upper lobes bilaterally. Differential considerations include bronchopneumonia, atypical infection and atypical pulmonary edema. 4. Mild mediastinal adenopathy, likely reactive. Chest X-Ray 12/17/17 22:00 CONCLUSION: Placement of second right-sided chest tube with near complete resolution of previous right pneumothorax. Chest X-Ray 12/18/17 05:00 CONCLUSION: 1. Stable bilateral multifocal consolidative infiltrates. 2. 2 right chest drainage tubes in place; no pneumothorax seen. Chest X-Ray 12/19/17 00:00 CONCLUSION: 1. 2 right chest tubes remain present and there is now a small pneumothorax. There is also increased right chest wall soft tissue air. 2. Stable severe bilateral airspace consolidation. Chest X-Ray 12/19/17 05:00 CONCLUSION: Findings suggest reaccumulation of right pneumothorax with both right-sided chest tubes unchanged in position. Chest X-Ray 12/19/17 10:08 CONCLUSION: 1. 2 right chest tubes are present and no pneumothorax is identified. 2. Stable bilateral airspace consolidation primarily in the lower lung zones. Chest X-Ray 12/20/17 06:00 CONCLUSION: 1. Decrease in size of right apical pneumothorax to 4 mm. 2. Diffuse bilateral airspace consolidation similar in severity and distribution to prior. Chest X-Ray 12/21/17 02:48 CONCLUSION: 1. Large amount of chest wall and neck soft tissue emphysema present, much worse than yesterday. No definite pneumothorax. Right chest tubes remain in place. 2. Worsening bilateral airspace disease, left more so than right. Chest CT 12/21/17 04:03 CONCLUSION: 1. Moderate size right pneumothorax without tension. Also pneumopericardium and pneumomediastinum. Massive chest wall emphysema. 2. Bilateral airspace disease. 3.7 cm bilobed cavitary lesion of the right lower lobe. 3. Small left pleural effusion. No left pneumothorax. Chest X-Ray 12/21/17 07:31 CONCLUSION: Progression of the extensive subcutaneous emphysema with [address] on the right. Chest X-Ray 12/22/17 06:00 CONCLUSION: 1. Decreased chest wall emphysema. No pneumothorax seen. 2. Diffuse bilateral airspace disease without significant change. Chest X-Ray 12/23/17 13:34 CONCLUSION: 1. Interval placement of right internal jugular central venous line with no pneumothorax. 2. 3 right-sided chest tubes remain in place. 3. Interval improvement in subcutaneous emphysema. 4. The right costophrenic angle with consolidative opacity in the right lung base. Chest X-Ray 12/26/17 00:00 CONCLUSION: 1. Lines and tubes remain in place. 2. No significant interval change with persistent mild diffuse bilateral pulmonary opacity. Chest X-Ray 12/26/17 05:00 CONCLUSION: Decreasing subcutaneous emphysema. Otherwise no change. Chest X-Ray 12/27/17 05:00 CONCLUSION: Stable chest appearance Chest X-Ray 12/29/17 07:29 CONCLUSION: 1. Significant interval increase in bilateral subcutaneous emphysema with small apparent medial right pneumothorax now noted. 2. The patient remains intubated and there are 2 right-sided chest tubes in place. Chest X-Ray 12/30/17 07:39 CONCLUSION: 1. No significant change. 2. No evidence of pneumothorax. 3. Stable supportive devices. 4. Extensive airspace disease remains evident throughout both lungs without significant improvement. Chest X-Ray 12/31/17 05:00 CONCLUSION: Little change from prior exam Chest CT 01/03/18 11:56 CONCLUSION: 1. Consolidation at both lung bases has improved. Cavitary lesions on the right are slightly larger as measured above. 2. Improving pneumomediastinum, pneumopericardium and subcutaneous emphysema. Near complete resolution of previous right pneumothorax. 2 right chest tubes present. Trace pleural fluid present. 3. Patchy airspace disease remains in the lungs probably with some fibrotic changes well. 4. Endotracheal tube and nasogastric tube in good position. Chest X-Ray 01/04/18 05:00 CONCLUSION: 1. Decreased lung volumes. Persistent bilateral pulmonary opacity. 2. Right-sided chest tubes. Bilateral subcutaneous emphysema. No evidence of pneumothorax. Chest X-Ray 01/07/18 06:00 CONCLUSION: 1. Interval decrease in subcutaneous emphysema. 2 right-sided chest tubes remaining in place and no visualized pneumothorax. 2. Interval improvement in bilateral pulmonary opacity is well. 3. Masslike opacity in the right perihilar region. Chest X-Ray 01/08/18 06:00 CONCLUSION: No significant change. No perceptible pneumothorax. Chest X-Ray 01/08/18 10:25 CONCLUSION: 1. New right IJ central catheter in satisfactory position. 2. ET tube and chest tubes in satisfactory position. 3. Extensive bilateral pulmonary infiltrates. Chest X-Ray 01/09/18 06:00 CONCLUSION: Tubes and catheters in good position. Patchy infiltrates right greater than left with right apical pleural thickening are unchanged Chest X-Ray 01/10/18 06:00 CONCLUSION: Tubes and catheters in good position. Patchy infiltrate right midlung zone left lung base are unchanged. Chest X-Ray 01/11/18 06:00 CONCLUSION: No significant interval change. Bilateral pulmonary opacity again seen. Chest X-Ray 01/11/18 15:27 CONCLUSION: 1. Interval placement of tracheostomy tube. The endotracheal tube and nasogastric tube have been removed. 2. 2 right-sided chest tube in place with right apical pleural parenchymal change. 3. Hazy opacity remains in both lungs without change right greater than left. Objective Remarks: GENERAL: Middle-aged lady, intubated and sedated, ill-appearing HEENT: Pupils are equal and reactive, sclerae are anicteric, currently with orogastric tube removed status post tracheostomy. Will replace today. NECK: Supple, no rigidity, no neck vein distention, no carotid bruit tracheostomy site without bleeding. CHEST: Coarse breath sounds bilateral, no wheezes, currently no subcu emphysema. 1 dual right-sided chest tubes on suction, -190 cc past 24 hours no air leak noted CARDIOVASCULAR: Regular heart sounds, no murmurs appreciated ABDOMEN: Soft, nontender, nondistended, bowel sounds present, no hepatomegaly or splenomegaly appreciated MUSCULOSKELETAL: Extremities are warm and well perfused, peripheral pulses are present, 2+ pitting edema NEUROLOGICAL: Sedated and intubated, does not open eyes to voice stimuli and does not follow commands, withdraws to pain. Pupils are equal and reactive, no gaze deviation Assessment and Plan - Assessment and Plan Plan: Neuro/Psych: Acute metabolic encephalopathy Possible seizure disorder Currently on fentany/ propofol drips for sedation/analgesia while intubated Daily sedation vacation. Goal RASS -2 She was started on anticonvulsants on her initial admission 11/23. Valproic acid 500 mg 3 times daily. Recheck level 01/[address] 12/17- for acute disease EEG - Diffuse slowing consistent with a moderate diffuse encephalopathy. No epileptiform activity. Repeat 01/10 Acetaminophen 650 by tube every 6 hours as needed fever Continue quetiapine 25 mg daily/home medication Holding tizanidine 4 mg daily Respiratory: Postop day #3 Right thoracoscopic decortication, closure of bronchopleural fistula, debridement and irrigation of the prior chest tube wounds and placement of #2 32 [place] chest tubes Acute hypoxic and hypercarbic respiratory failure- persistent Acute severe bilateral multifocal healthcare associated pneumonia Possible aspiration pneumonia Spontaneous right-sided tension pneumothorax Subcutaneous Emphysema CT surgery/Dr. Marquez following. CT thorax overnight 12/12 revealed significant 3.7 cm moderate right pneumothorax without tension. Pneumopericardium and significant subcutaneous emphysema. Vent bundle and bronchodilators PRVC mode 450/14/35% PEEP of 5 Patient is synchronized with the ventilator, no auto PEEP, Pip 27 Epoprostanol added 12/19, removed 12/29. Albuterol/ipratropium aerosols every 4 hours with albuterol aerosols every 2 hours as needed dyspnea Wean FiO2 for goal SPO2 greater than 90% Daily CXR Cardiovascular: Septic shock- resolved Elevated troponin Type II NSTEMI secondary to demand ischemia Hyperlipidemia Holding lisinopril 30 mg daily/home medication. For dyslipidemia resume pravastatin 40 mg daily when clinically indicated Continue hydrocortisone wean Furosemide 40 mg IV daily diuresis. Renal: Acute kidney injury (resolved) Secondary to shock, off pressors Frequent urine output monitoring Daily creatinine KVO IV fluid. Furosemide 40 mg IV daily Strict I/Os FEN/GI: Acute protein calorie malnutritionsevere Lactic acidosis- resolved Severe colitis Enterovirus colitis Hyperammonemia Currently on lactulose 30 cc twice daily Tube feeding with vital 1.5 goal 55 cc now. Metoclopramide 5 mg 3 times daily. Starting today 01/12 post tracheostomy ICU electrolyte protocol Daily BMP, magnesium, phosphorus Lactulose/polythene glycol twice daily Holding dicyclomine 20 mg 3 times daily Heme/ID: C. difficile colitis Enterovirus colitis Septic shock Healthcare associated multifocal pneumonia Possible gram-positive cocci bacteremia Early empyema 1 unit PRBCs transfused on 12/28 for hemoglobin 6.9, recheck CBC and transfuse to keep hemoglobin above 8 g% Transfuse 1 unit PRBCs 01/07.. Transfuse 2 units PRBCs 01/09 Vancomycin p.o. with pharmacy dosing C. difficile continue Discontinue 01/11 piperacillin/tazobactam and micafungin Bronchoscopy 12/19 with Klebsiella Pleural fluid 12/19 with Klebsiella's/Karla Pleural fluid 12/17 -g Karla albicans/glabrata Klebsiella, lactobacillus 12/17 -sputum -Klebsiella 12/17 blood-strep viridians/coag negative staph Infectious disease consulted and following. Actively Endocrine: Acute hypoglycemia- resolving. Sliding scale insulin Accu-Cheks every 6 hours to maintain euglycemia Prophylaxis: GI Prophylaxis Famotidine DVT Prophylaxis -- SCDs Subcu heparin Lines: 12/17 femoral triple-lumen catheter discontinued 12/23 12/17 right radial arterial line discontinued 12/21 12/17 right 28 [place] chest tube to -40 cm suction: removed 12/26 12/17 right 32 [place] chest tube to -40 cm suction removed 01/08 12/19 -right #32 [place] chest tube to -40 cm suction removed 01/08 Right IJ cordis with dual-lumen 01/08 removed today. Continue with dual chest tube on right side placed 01/08 Level 2 follow-up
[2018-01-11] MEDS ORDERED: Potassium Chloride 25 MEQ Effervescent Tablet PO ONE (18:15)
[2018-01-11] MEDS: QUEtiapine 25 MG Tablet PO SCH (20:00)
[2018-01-12] MEDS: Oral Hygiene Kit OROPHARYNG SCH ×5 (02:33→23:50)
[2018-01-12] MEDS: Insulin NovoLIN Regular Correctional Sugar Inj SQ SCH ×4 (02:33→17:18)
[2018-01-12] MEDS: Propofol 1000 mg/100 ml Inj 1,000 MG/100 ML BOTTLE IV.CONT PRN ×5 (02:37→21:00)
--- NOTE | 2018-01-12 04:11 | XR ---
EXAM DATE: 01/12/2018 4:01 AM EST AGE/SEX: 62 years / Female INDICATIONS: Respiratory failure. CLINICAL DATA: This is the patient's subsequent encounter. Patient reports that signs and symptoms h ave been present for 1 month and indicates a pain score of Nonresponsive. MEDICAL/SURGICAL HISTORY: Sepsis. Hypertension. Smoker. Hyperlipidemia. Chest tube, right. COMPARISON: [facility] [place], CHEST 1V SINGLE AP, 01/04/2018. . FINDINGS: Single AP view of the chest. Right IJ central venous catheter is no longer seen. Tracheostomy tube re bekah in place. Right-sided chest tubes also again seen. Patchy bilateral lung opacity. No evidence o f pneumothorax. Right apical cavitary lesion again seen. No pleural effusion. Cardiomegaly mediastina l silhouette unchanged. CONCLUSION: 1. Right IJ central venous catheter no longer seen. 2. No significant interval change in patchy bilateral lung opacity. 3. Right-sided chest tubes remain in place. No evidence of pneumothorax. Electronically signed by: Jerry Fonseca MD 01/12/2018 4:09 AM EST
[2018-01-12] MEDS: fentaNYL 10 mcg/mL Premix Drip 2,500 MCG/250 ML BAG IV.SIG PRN ×2 (04:59→17:17)
[2018-01-12] MEDS: Heparin - SQ 10,000 UNITS/ML Vial SQ SCH ×3 (04:59→21:02)
[2018-01-12] MEDS: Dexmedetomidine Inj 200 MCG in Sodium Chlor 0.9% Inj 48 ML IV.CONT PRN (05:50)
[2018-01-12 06:37] LABS: Alanine Aminotransferase 15 U/L (10-53); Albumin 1.7 g/dL (3.4-5.0); Alkaline Phosphatase 108 U/L (45-117); Anion Gap 11 meq/L (5-15); Aspartate Aminotransferase 32 U/L (15-37); Blood Urea Nitrogen 15 mg/dL (7-18); Calcium 8.4 mg/dL (8.5-10.1); Carbon Dioxide 27.3 meq/L (21.0-32.0); Chloride 104 meq/L (98-107); Glomerular Filtration Rate Greater Than 89 mL/min (>89); Glucose,Random 95 mg/dL (74-106); Magnesium 1.8 mg/dL (1.5-2.5); Phosphorus 5.5 mg/dL (2.5-4.9); Potassium 4.9 meq/L (3.5-5.1); Sodium 142 meq/L (136-145); Total Protein 6.5 g/dL (6.4-8.2); Valproic Acid 24 mcg/mL (50-100)
[2018-01-12] MEDS: Chlorhexidine 0.12% Oral Kit 15 ML UDC OROPHARYNG SCH ×2 (09:08→21:01)
[2018-01-12] MEDS: Potassium Chloride 25 MEQ Effervescent Tablet NG/OG SCH (09:09)
[2018-01-12] MEDS: Polyethylene Glycol 3350 17 GM Packet PO SCH ×2 (09:11→21:01)
[2018-01-12] MEDS: Sodium Chloride 0.9% 2 ML Flush BID IV.FLUSH SCH ×2 (09:11→21:01)
[2018-01-12] MEDS: Famotidine 20 MG Tablet PO SCH ×2 (09:11→21:02)
[2018-01-12] MEDS: Senna/Docusate Sodium 8.6/50 MG Tablet PO SCH ×2 (09:12→21:02)
[2018-01-12] MEDS: Carboxymethylcellulose 0.5% Opth Drops 15 ML Bottle EACH EYE SCH ×2 (09:12→21:02)
[2018-01-12] MEDS: Collagenase Oint 30 GM Tube TOPICAL SCH (09:12)
[2018-01-12 09:15] LABS: Baso # (Auto) 0.1 th/mm3 (0.0-0.2); Baso % (Auto) 0.7 % (0.0-2.0); Eos # (Auto) 0.8 th/mm3 (0.0-0.4); Eos % (Auto) 8.9 % (0.0-4.0); Hematocrit 33.9 % (35.0-46.0); Hemoglobin 11.3 gm/dL (11.6-15.3); Lymph # (Auto) 2.2 th/mm3 (1.0-4.8); Lymph % (Auto) 23.8 % (9.0-44.0); Mean Corpuscular HGB Conc 33.4 % (32.0-36.0); Mean Corpuscular Hemoglobin 31.6 pg (27.0-34.0); Mean Corpuscular Volume 94.6 fL (80.0-100.0); Mono % (Auto) 11.3 % (0.0-8.0); Neut # (Auto) 5.1 th/mm3 (1.8-7.7); Neut % (Auto) 55.3 % (16.0-70.0); Platelet Count 381 th/mm3 (150-450); Red Blood Count 3.59 mil/mm3 (4.00-5.30); Red Cell Distribution Width 15.9 % (11.6-17.2); White Blood Count 9.3 th/mm3 (4.0-11.0)
[2018-01-12 10:37] LABS: Eosinophils 8 % (0-4); Metamyelocytes 5 % (0-1); Monocytes 6 % (0-8)
[2018-01-12] MEDS: Metoprolol Inj 5 MG/5 ML Vial IV.PUSH PRN ×2 (10:37→16:42)
[2018-01-12 10:38] LABS: Lymphocytes 14 % (9-44); Platelet Estimate Normal (Normal); RBC Morphology Normal (Normal); Toxic Granulation 2+
--- NOTE | 2018-01-12 10:53 | P.PNCC ---
Subjective Subjective Remarks/Hospital Course: This is a 62yF who was originally admitted on 11/23 with a diagnosis of colitis, found to have enterovirus. discharged on 12/11 at that time on PO vancomycin, but came back on 12/13 with altered mental status and hypoglycemia, again discharged on 12/15. She was mildly fatigued on 12/16 according to her and asked to wait another day before traveling back to her home in [place]. This morning, she was unarousable and her called 911. She was intubated upon arrival to the emergency department for agonal respirations. CXR demonstrates bilateral multifocal pneumonia. She is febrile, hypotensive. CVL placed in the ER and vasopressors initiated after 2L bolus crystalloid. CT chest/abd/pelvis demonstrates right pneumothorax, densely consolidated right lower lobe, bilateral pulmonary infiltrates, evidence of ongoing colitis. Patient continue to be unstable. Immediately after identifying ptx on CT scan, I emergently placed right chest tube with some improvements in hemodynamics, but ongoing distributive shock persists. I placed arterial line. No additional information available from the patient, ROS unobtainable. In discussion with the , she has not had any new complaints in the 48h she was home, and other than mild fatigue last night, no new complaints. She was able to walk to the bathroom without assistance yesterday. 12/18: shock remains. now on levophed, vasopressin, phenylephrine. second chest tube placed overnight for worsening SQ air. acidosis remains and is severe. 12/19: Afebrile. Remains on vasopressin drip only. On stress dose hydrocortisone. Evaluated by CT surgery. Not a candidate for intervention at the present time. Chest tube continues to leak. Epoprostenol added today 12/20: Afebrile. FiO2 has decreased and is currently 70%. Currently replacing potassium, phosphorus and magnesium. Recheck later this afternoon. Less chest tube leak today down to 1 chamber. 12/21: Overnight, worsening subcutaneous emphysema. A third chest tube placed by overnight wall steamer after discussion with cardiothoracic surgery. Currently hemodynamically stable. Replacing phosphorus today. To be evaluated by CT surgery today. 12/22: Remains sedated, orally intubated on mechanical ventilation. Persistent air leak and chest tube noted. 12/23: Remains sedated, orally intubated on mechanical ventilation. Air leak persists though slightly improved. PEEP at +5 FiO2 55%, inhaled Flolan continues. Central line replaced with right IJ triple-lumen catheter. 12/24: Remains sedated, orally intubated on mechanical ventilation. 1+ air leak from chest tube 3 noted. PEEP +5, FiO2 60%, inhaled Flolan continues. Decreasing subcutaneous emphysema noted. 12/25: Remains sedated, orally improved on mechanical ventilation. 1+ for leak from chest tube 2. PEEP +5, FiO2 50%. Starting to titrate inhaled Flolan down today. Initiating Lasix to mobilize fluid. 12/26: remains intubated. air leak continues from chest tube #3. drainage out of #1 and #2 are very serous. #1 was removed by myself today. all chest tube dressings changed by me today. repeat CXR pending. very volume overloaded. starting to diurese. off vasopressors. off pathway: still high fio2 requirements. 12/27: good diuresis overnight. very hypokalemic today and aggressively replacing. CXR unchanged. air leak unchanged. long discussion over long-term and short-term prognosis and plan of care with entire family today. all questions answered. 12/28: Continues to diurese. Remains on mechanical ventilation. Positive air leak in chest tube 3. 1 unit PRBCs transfused earlier for hemoglobin 6.9. 12/29: Remains on mechanical ventilation. Increasing subcutaneous emphysema noted. Air leak stopped and chest tube #2 and 3 currently. Flolan being titrated down. Chest x-ray shows appropriate positioning of 2 chest tubes with the more medial small right pneumothorax with significant subcutaneous emphysema bilaterally. Patient remains off pressors and is being diuresed to mobilize fluid. 12/30: volume removal continues. Cr still at baseline. fio2 down to 40% and off inhaled Flolan. discussed with Dr. Lynn: will need to wait at least until next week for VATS. Will need trach going forward: discussed with family and they are agreeable. Dr. Lynn asked that both chest tubes remain in place. air leak persists. remains intubated and sedated. 12/31: Sedated, orally intubated on mechanical ventilation. On 40% FiO2 PEEP + 5. Positive air leak in chest tube [address] surgery planning for VATS next week, will need tracheostomy coordinated as well. 01/01: Remains sedated, orally intubated on mechanical ventilation. PEEP +5, FiO2 35%. Being diuresed. 01/02: Sedated, orally intubated on mechanical ventilation. PEEP +5, FiO2 35%. Intermittent air leak in chest tube 3. Being diuresed 01/03: persistent air leak. hypoxia improving. discussed case with Dr. Lynn- he would like pre-operative CT chest for surgical planning. we also discussed timing of tracheostomy: it would be easier surgically to have ett in place to place double-lumen ett, so he would prefer to keep ett until after operation, and then proceed with tracheostomy. tentatively VATS planned for Friday 01/05. 01/04: No events over the night. Patient remains sedated and intubated, sedation achieved with fentanyl and propofol. T-max of 100.2 over the last 24 hours. I/O 3770/3130. Chest tubes remain on suction. 01/05: T-max 99.3. Currently afebrile. Difficulty with weaning from ventilator noted. VATS currently on hold per CT surgery. 01/06: Resting comfortably in bed in no acute distress. Plan for thoracotomy rested on Thursday night. Currently on CPAP trial. Potassium being replaced. 01/07: Resting complaint bed in no acute distress. Plan for thoracotomy tomorrow a.m. 730. Currently on CPAP trial. Transfuse when he PRBC today. Hemoglobin currently 9.6 potassium 3.9. 01/08: Today, status post right thoracoscopic decortication, closure of bronchopleural fistula with debridement and irrigation of the prior chest tube wounds with placement of 2 #32 [place] chest tubes by cardiothoracic surgery patellar procedure well. EBL 250. Adequate urine output. Appears stable. 01/09: T-max 100.2. Currently tachycardic. Receiving 2 units PRBCs. Potassium being replaced. Agitated on the ventilator. 01/10: Twitching on the ventilator/tremor. Temperature max 100.2. 120 cc output from chest tube overnight. Still not arousable/following commands on the ventilator. Likely tracheostomy Subjective 01/11: T-max 100.5. Status post #8 [place] practice tracheostomy today. Order PEG tube for tomorrow. Arousable but not following commands. Thrashes back and forth. 01/12: T-max 100.4. Plan to initiate CPAP trials today. Patient does not follow commands, but does track movement. IV antibiotics discontinued yesterday Zosyn and micafungin. The patient continues on p.o. Vanco. Case discussed with CT surgery plan for continuation chest tubes until placed on trach collar. Objective Vital Signs / I&O: Vital Signs 01/11/18 11:00 01/11/18 11:01 01/11/18 12:00 Temperature 100.5 F H Pulse Rate 122 H 117 H Respiratory Rate 16 18 16 Blood Pressure 164/99 H Pulse Oximetry 98 98 98 01/11/18 12:02 01/11/18 12:38 01/11/18 13:00 Temperature Pulse Rate 118 H 110 H 107 H Respiratory Rate 22 14 14 Blood Pressure 172/96 H 130/83 Pulse Oximetry 98 99 99 01/11/18 14:00 01/11/18 14:49 01/11/18 14:55 Temperature Pulse Rate 102 H 101 H 106 H Respiratory Rate 14 20 20 Blood Pressure 88/59 L 82/53 L Pulse Oximetry 99 99 99 01/11/18 15:00 01/11/18 15:05 01/11/18 15:10 Temperature Pulse Rate 104 H 101 H 107 H Respiratory Rate 20 20 15 Blood Pressure 88/58 L 90/58 L 178/107 H Pulse Oximetry 99 99 99 01/11/18 15:15 01/11/18 15:20 01/11/18 15:25 Temperature Pulse Rate 105 H 106 H 106 H Respiratory Rate 24 22 20 Blood Pressure 145/90 H 171/99 H 154/90 H Pulse Oximetry 99 99 99 01/11/18 15:30 01/11/18 15:35 01/11/18 15:40 Temperature Pulse Rate 105 H 103 H 101 H Respiratory Rate 20 20 24 Blood Pressure 143/81 H 133/73 134/92 H Pulse Oximetry 100 100 100 01/11/18 15:45 01/11/18 15:50 01/11/18 16:00 Temperature Pulse Rate 101 H 100 H 99 H Respiratory Rate 24 20 20 Blood Pressure 139/90 121/82 127/81 Pulse Oximetry 100 100 100 01/11/18 16:30 01/11/18 16:33 01/11/18 17:00 Temperature Pulse Rate 93 H 95 H Respiratory Rate 16 16 16 Blood Pressure 94/69 L 97/72 L Pulse Oximetry 98 99 98 01/11/18 17:31 01/11/18 18:00 01/11/18 18:31 Temperature Pulse Rate 108 H 115 H 99 H Respiratory Rate 21 21 16 Blood Pressure 197/95 H 179/96 H 113/76 Pulse Oximetry 100 93 L 100 01/11/18 19:00 01/11/18 19:30 01/11/18 19:55 Temperature Pulse Rate 104 H 100 H 105 H Respiratory Rate 18 16 16 Blood Pressure 139/81 109/69 Pulse Oximetry 100 100 95 01/11/18 20:00 01/11/18 20:30 01/11/18 21:00 Temperature 99.5 F Pulse Rate 105 H 106 H 101 H Respiratory Rate 16 16 16 Blood Pressure 158/90 H 107/73 100/69 Pulse Oximetry 100 100 100 01/11/18 21:31 01/11/18 22:00 01/11/18 22:30 Temperature Pulse Rate 113 H 111 H 110 H Respiratory Rate 22 17 16 Blood Pressure 159/99 H 131/84 119/82 Pulse Oximetry 100 100 100 01/11/18 23:00 01/11/18 23:30 01/11/18 23:50 Temperature Pulse Rate 122 H 122 H 120 H Respiratory Rate 19 17 16 Blood Pressure 154/86 H 135/82 Pulse Oximetry 100 100 100 01/12/18 00:00 01/12/18 00:30 01/12/18 01:00 Temperature 98.2 F Pulse Rate 127 H 131 H 128 H Respiratory Rate 20 18 19 Blood Pressure 157/83 H 128/76 131/74 Pulse Oximetry 100 100 100 01/12/18 01:30 01/12/18 02:00 01/12/18 02:30 Temperature Pulse Rate 130 H 125 H 121 H Respiratory Rate 15 17 17 Blood Pressure 120/78 121/74 126/77 Pulse Oximetry 100 100 01/12/18 03:00 01/12/18 03:30 01/12/18 04:00 Temperature 99.7 F H Pulse Rate 123 H 118 H 114 H Respiratory Rate 18 17 16 Blood Pressure 140/83 123/76 120/73 Pulse Oximetry 100 100 100 01/12/18 04:10 01/12/18 04:26 01/12/18 04:30 Temperature Pulse Rate 114 H 120 H Respiratory Rate 16 17 13 Blood Pressure 128/78 Pulse Oximetry 100 11/20/18 05:00 01/12/18 05:30 01/12/18 06:00 Temperature Pulse Rate 122 H 120 H 120 H Respiratory Rate 8 L 18 18 Blood Pressure 133/76 136/77 130/74 Pulse Oximetry 100 100 100 01/12/18 08:24 01/12/18 08:30 01/12/18 10:08 Temperature Pulse Rate 107 H Respiratory Rate 17 17 20 Blood Pressure Pulse Oximetry 100 100 Intake & Output 01/11/18 01/12/18 01/12/18 18:59 06:59 18:59 Intake Total 728 / 728 1186 / 1186 Output Total 1400 / 1400 900 / 900 Balance -672 / -672 286 / 286 Weight 67.5 kg Intake: IV 700 / 700 640 / 640 Diprivan 1000 mg/100 ml Inj 1, 100 / 100 290 / 290 000 mg In 100 ml @ 5 MCG/KG/MIN 2.904 mls/hr IV.CONT TITRATE PRN Rx#:[id number] Zosyn 4.5 GM Premix 4.5 gm In 100 / 100 100 / 100 100 ml @ 200 mls/hr IV.SIG Q6H BENJAMIN Rx#:[id number] fentaNYL 10 mcg/mL Premix Drip 500 / 500 250 / 250 2,500 mcg In 250 ml @ 50 MCG/HR 5 mls/hr IV.SIG TITRATE PRN Rx #:[id number] Tube Feeding 546 / 546 Output: Urine 400 / 400 500 / 500 Stool 1000 / 1000 300 / 300 Chest Tube Drainage 0 / 0 100 / 100 Right Y Connected 0 / 0 100 / 100 Other: # Incontinent Voids 2 Date of Last Bowel Movement 01/11/18 01/11/18 01/11/18 Result Diagrams: 01/12/18 08:37 01/12/18 05:14 Objective Remarks: GENERAL: Middle-aged lady, intubated and sedated, chronically ill-appearing HEENT: Pupils are equal and reactive, sclerae are anicteric, status post tracheostomy on 01/11 NECK: Supple, no rigidity, no neck vein distention, no carotid bruit tracheostomy site without bleeding. CHEST: Coarse breath sounds bilateral, no wheezes, currently no subcu emphysema. 1 dual right-sided chest tubes on suction, -190 cc past 24 hours no air leak noted CARDIOVASCULAR: Regular heart sounds, no murmurs appreciated ABDOMEN: Soft, nontender, nondistended, bowel sounds present, no hepatomegaly or splenomegaly appreciated MUSCULOSKELETAL: Extremities are warm and well perfused, peripheral pulses are present, 2+ pitting edema NEUROLOGICAL: Sedated and intubated, spontaneous eye opening to voice stimuli and does not follow commands, withdraws to pain. Pupils are equal and reactive , no gaze deviation Assessment and Plan - Assessment and Plan Plan: Neuro/Psych: Acute metabolic encephalopathy Possible seizure disorder Currently on fentany/ propofol drips for sedation/analgesia while intubated. Dexmedetomidine discontinued Daily sedation vacation. Goal RASS -2 She was started on anticonvulsants on her initial admission 11/23. Valproic acid 500 mg 3 times daily. Recheck valproic acid level subtherapeutic Head CT 12/17- for acute disease EEG - Diffuse slowing consistent with a moderate diffuse encephalopathy. No epileptiform activity. Repeat 01/10 Acetaminophen 650 by tube every 6 hours as needed fever Continue quetiapine 25 mg daily/home medication Holding tizanidine 4 mg daily Respiratory: Postop day #4 Right thoracoscopic decortication, closure of bronchopleural fistula, debridement and irrigation of the prior chest tube wounds and placement of #2 32 [place] chest tubes Acute hypoxic and hypercarbic respiratory failure- persistent Acute severe bilateral multifocal healthcare associated pneumonia Possible aspiration pneumonia Spontaneous right-sided tension pneumothorax Subcutaneous Emphysema CT surgery/Dr. Marquez following. CT thorax overnight 12/12 revealed significant 3.7 cm moderate right pneumothorax without tension. Pneumopericardium and significant subcutaneous emphysema. Vent bundle and bronchodilators PRVC mode 450/14/35% PEEP of 5 Patient is synchronized with the ventilator, no auto PEEP, Pip 27 Epoprostanol added 12/19, removed 12/29. Albuterol/ipratropium aerosols every 4 hours with albuterol aerosols every 2 hours as needed dyspnea Wean FiO2 for goal SPO2 greater than 90% Daily CXR Cardiovascular: Septic shock- resolved Elevated troponin Type II NSTEMI secondary to demand ischemia Hyperlipidemia Holding lisinopril 30 mg daily/home medication. For dyslipidemia resume pravastatin 40 mg daily when clinically indicated Continue hydrocortisone wean Furosemide 40 mg IV daily diuresis. Renal: Acute kidney injury (resolved) Secondary to shock, off pressors Frequent urine output monitoring Daily creatinine KVO IV fluid. Furosemide 40 mg IV daily Strict I/Os FEN/GI: Acute protein calorie malnutritionsevere Lactic acidosis- resolved Severe colitis Enterovirus colitis Hyperammonemia Currently on lactulose 30 cc twice daily Tube feeding with vital 1.5 goal 55 cc now. Metoclopramide 5 mg 3 times daily. Starting today 01/12 post tracheostomy ICU electrolyte protocol Daily BMP, magnesium, phosphorus Lactulose/polythene glycol twice daily Holding dicyclomine 20 mg 3 times daily Heme/ID: C. difficile colitis Enterovirus colitis Septic shock Healthcare associated multifocal pneumonia Possible gram-positive cocci bacteremia Early empyema 1 unit PRBCs transfused on 12/28 for hemoglobin 6.9, recheck CBC and transfuse to keep hemoglobin above 8 g% Transfuse 1 unit PRBCs 01/07.. Transfuse 2 units PRBCs 01/09 Vancomycin p.o. with pharmacy dosing C. difficile continue Discontinue 01/11 piperacillin/tazobactam and micafungin Bronchoscopy 12/19 with Klebsiella Pleural fluid 12/19 with Klebsiella's/Karla Pleural fluid 12/17 -g Karla albicans/glabrata Klebsiella, lactobacillus 12/17 -sputum -Klebsiella 12/17 blood-strep viridians/coag negative staph Infectious disease consulted and following. IV antibiotics micafungin and Zosyn discontinued 01/11. P.O. vancomycin continued Endocrine: Acute hypoglycemia- resolving. Sliding scale insulin Accu-Cheks every 6 hours to maintain euglycemia Prophylaxis: GI Prophylaxis Famotidine DVT Prophylaxis -- SCDs Subcu heparin Lines: 12/17 femoral triple-lumen catheter discontinued 12/23 12/17 right radial arterial line discontinued 12/21 12/17 right 28 [place] chest tube to -40 cm suction: removed 12/26 12/17 right 32 [place] chest tube to -40 cm suction removed 01/08 12/19 -right #32 [place] chest tube to -40 cm suction removed 01/08 Right IJ cordis with dual-lumen 01/08 removed 01/11. Continue with dual chest tube on right side placed 01/08 Level 2 follow-up
--- NOTE | 2018-01-12 14:21 | P.CONGI ---
History of Present Illness Consult date: 01/12/18 Consult reason: PEG tube placement Chief complaint: Septic Shock,Respiratory failure,Hypoglycemia History of Present Illness: This patient is a 62-year-old female who was admitted on 11/23/2017 with a diagnosis of colitis. Patient was found to have enterovirus. Patient was discharged to home on 12/11/2017 on p.o. vancomycin. Patient was readmitted to [facility] on 1020 with reported altered mental status and hypoglycemia. Patient was then discharged on 1022. Per patient's spouse, patient started to experience fatigue and was unable to return back to her home in [place] on 12/16/2017. Patient was then readmitted to [facility] on 12/17/2017 after being noted to be unarousable by her spouse. Upon admission chest x-ray revealed bilateral pulmonary infiltrates. Patient was noted to be unstable and hypotensive. Upon consultation, patient has tracheostomy tube and is mechanically ventilated. Right chest tube present. Fentanyl, propofol infusing. Sinus tach 104 BP 95/54 with saturation 98%. Patient currently has NG tube with a vital 1.5 at 55 mL's per hour as per nutritional recommendation. Patient has rectal tube-dignity shield expelling moderate amounts of brown liquid stool. Our service has been consulted to evaluate patient for PEG tube placement at this time <Roya Valderrama - Last Filed: 01/12/18 14:11> Review of Systems unobtainable due to endotracheal tube, other <Roya Valderrama - Last Filed: 01/12/18 14:11> PMFSH - History History Provided By: Family Member, Medical Record, Binder Selector / EMT - Medical History Medical History: Medical History (Last Reviewed 01/07/18 @ 09:25 by Becka Brady) Chronic pain HTN (hypertension) Hyperlipidemia MDRO (multiple drug resistant organisms) resistance Onset Date: ~12/13/17 - Surgical History Surgical History: Surgical History (Last Reviewed 01/07/18 @ 09:25 by Becka Brady) Previous back surgery - Family History Family History: Family History (Last Reviewed 01/07/18 @ 09:25 by Becka Brady) Father Colon cancer - Tobacco History Second Hand Smoke Exposure: Yes Tobacco Use In Past 30 Days: Yes Smoking Status: Current every day smoker Tobacco Type: Cigarettes Packs Per Day: 0.5 - Alcohol History How Often Do You Have a Drink Containing Alcohol: Never - Substance Use History Substance History: Past History - Travel History Recent Travel in the [place] Within the Last 8 Weeks: No Recent Travel Out of the Country Within the Last 8 Weeks: No - Immunization History Tetanus Immunization: Unable to Assess Hx Influenza Vaccine This Season: No <Roya Valderrama - Last Filed: 01/12/18 14:11> - Medical History Medical History: Medical History (Last Reviewed 01/07/18 @ 09:25 by Becka Brady) Chronic pain HTN (hypertension) Hyperlipidemia MDRO (multiple drug resistant organisms) resistance Onset Date: ~12/13/17 - Surgical History Surgical History: Surgical History (Last Reviewed 01/07/18 @ 09:25 by Becka Brady) Previous back surgery - Family History Family History: Family History (Last Reviewed 01/07/18 @ 09:25 by Becka Brady) Father Colon cancer <Brennan Barrientos - Last Filed: 01/12/18 16:31> Medications and Allergies Active Medications: Active Medications Acetaminophen (Tylenol Liq) 650 mg NG/OG Q6H PRN PRN Reason: FEVER Last Admin: 01/12/18 09:21 Dose: 650 mg Albuterol (Albuterol Neb (Prn)) 2.5 mg NEB Q2HR NEB PRN PRN Reason: DYSPNEA Last Admin: 01/11/18 03:54 Dose: 2.5 mg Albuterol (Duoneb Neb (Ender)) 1 ampul NEB Q4HR NEB ENDER Last Admin: 01/12/18 12:31 Dose: 1 ampul Artificial Tears (Refresh Tears 0.5% Opth Drops) 1 drop EACH EYE BID [facility] Last Admin: 01/12/18 09:12 Dose: 1 drop Bisacodyl (Dulcolax Supp) 10 mg RECTAL DAILY PRN PRN Reason: if no BM in last 24h Chlorhexidine Gluconate (Peridex 0.12% Oral Kit) 15 ml OROPHARYNG BID@0800, 2000 [facility] Last Admin: 01/12/18 09:08 Dose: 15 ml Chlorhexidine Gluconate (Hibiclens 4% Topical) 1 applicatio TOPICAL DIETICIAN [facility] Stop: 01/12/18 14:58 Collagenase (Santyl Oint) 1 applicatio TOPICAL DAILY [facility] Last Admin: 01/12/18 09:12 Dose: 1 applicatio Sodium Chloride 500 ml/ (Cefazolin Sodium 500 mg) 0 ml IRRIGATION DIETICIAN [facility] Stop: 01/12/18 14:59 Dextrose (D50w Vial) 50 ml IV.PUSH UNSCH PRN PRN Reason: PER HYPOGLYCEMIA PROTOCOL Famotidine (Pepcid) 20 mg PO BID [facility] Last Admin: 01/12/18 09:11 Dose: 20 mg Furosemide (Lasix Inj) 40 mg IV.PUSH DAILY [facility] Last Admin: 01/12/18 09:10 Dose: 40 mg Glucagon (Glucagon Inj) 1 mg OTHER PRN PRN PRN Reason: for Hypoglycemia Protocol Heparin Sodium (Porcine) (Heparin Inj) 5,000 units SQ Q8HR [facility] Last Admin: 01/12/18 13:18 Dose: 5,000 units Fentanyl (Fentanyl 10 Mcg/Ml Premix Drip) 2,500 mcg in 250 mls @ 5 mls/hr IV.SIG TITRATE PRN; Protocol PRN Reason: Per Protocol Last Admin: 01/12/18 04:59 Dose: 250 mcg/hr, 25 mls/hr Magnesium Sulfate 4 gm/ Sodium (Chloride) 100 mls @ 50 mls/hr IV.SIG UNSCH PRN PRN Reason: For Magnesium 0.9 - 1.1 mg/dL Magnesium Sulfate 2 gm/ Sodium (Chloride) 100 mls @ 50 mls/hr IV.SIG UNSCH PRN PRN Reason: For Magnesium 1.2 - 1.6 mg/dL Last Infusion: 01/02/18 18:23 Dose: Infused Potassium Chloride (Kcl 40 Meq Premix Inj) 40 meq in 100 mls @ 25 mls/hr IV.SIG Q2H PRN PRN Reason: For Potassium 2.8 - 3.2 mEq/L Last Infusion: 01/09/18 17:38 Dose: Infused Potassium Chloride (Kcl 20 Meq Premix Inj) 20 meq in 100 mls @ 50 mls/hr IV.SIG Q2H PRN PRN Reason: For Potassium 3.3 - 3.5 mEq/L Last Infusion: 01/06/18 15:52 Dose: Infused Potassium Chloride (Kcl 40 Meq Premix Inj) 40 meq in 100 mls @ 25 mls/hr IV.SIG UNSCH PRN PRN Reason: For Potassium 3.3 - 3.5 mEq/L Last Infusion: 12/29/17 12:09 Dose: Infused Potassium Chloride (Kcl 20 Meq Premix Inj) 20 meq in 100 mls @ 50 mls/hr IV.SIG Q2H PRN PRN Reason: For Potassium 2.8 - 3.2 mEq/L Last Infusion: 01/07/18 10:00 Dose: Infused Potassium Phosphate 30 mmol/ (Sodium Chloride) 260 mls @ 42 mls/hr IV.SIG UNSCH PRN PRN Reason: SEE LABEL COMMENTS Sodium Phosphate 30 mmol/ (Sodium Chloride) 260 mls @ 42 mls/hr IV.SIG UNSCH PRN PRN Reason: For Phosphorus < 2.5 mg/dL Last Infusion: 12/19/17 21:50 Dose: Infused Propofol (Diprivan 1000 Mg/100 Ml Inj) 1,000 mg in 100 mls @ 2.904 mls/hr IV.CONT TITRATE PRN; Protocol PRN Reason: Per Protocol Last Admin: 01/12/18 11:44 Dose: 50 mcg/kg/min, 29.04 mls/hr Dexmedetomidine HCl 200 mcg/ (Sodium Chloride) 50 mls @ 3.48 mls/hr IV.CONT TITRATE PRN; Protocol PRN Reason: Per Protocol Last Titration: 01/12/18 07:59 Dose: 0 mcg/kg/hr, 0 mls/hr Insulin Human Regular (Novolin R Correctional Sugar Inj) 0 units SQ Q6HR ENDER; Protocol Last Admin: 01/12/18 13:17 Dose: Not Given Lactulose (Lactulose Liq) 30 ml PO BID ENDER Last Admin: 01/12/18 09:10 Dose: 30 ml Lactulose (Lactulose Liq) 30 ml PO QID PRN PRN Reason: SEVERE CONSITIPATION Magnesium Oxide (Mag-Ox) 800 mg PO UNSCH PRN PRN Reason: For Magnesium 1.2 - 1.6 mg/dL Metoclopramide HCl (Reglan Inj) 5 mg IV.PUSH Q8HR ENDER; Protocol Last Admin: 01/12/18 13:19 Dose: 5 mg Metoprolol Tartrate (Lopressor Inj) 5 mg IV.PUSH Q6H PRN PRN Reason: HR>100 Last Admin: 01/12/18 10:37 Dose: 5 mg Miscellaneous Medication () 1 each OROPHARYNG 0000,0400,1200,1600 ENDER Last Admin: 01/12/18 13:17 Dose: 1 each Ondansetron HCl (Zofran Inj) 4 mg IV.PUSH Q6H PRN PRN Reason: NAUSEA OR VOMITING Polyethylene Glycol (Miralax) 17 gm PO BID [facility] Last Admin: 01/12/18 09:11 Dose: 17 gm Potassium Bicarb/Potassium Chloride (K-Lyte Cl Eff) 50 meq PO UNSCH PRN PRN Reason: For Potassium 3.3 - 3.5 mEq/L Last Admin: 01/09/18 22:19 Dose: 50 meq Potassium Bicarb/Potassium Chloride (K-Lyte Cl Eff) 40 meq NG/OG DAILY [facility] Last Admin: 01/12/18 09:09 Dose: 40 meq Potassium Phosphate (K-Phos Original) 2,000 mg PO Q4H PRN PRN Reason: Phosphorus Less Than 2.5 mg/dL Last Admin: 12/25/17 02:42 Dose: 2,000 mg Potassium Phosphate (K-Phos Original) 2,000 mg PO UNSCH PRN PRN Reason: SEE LABEL COMMENTS Last Admin: 12/24/17 19:29 Dose: 2,000 mg Pravastatin Sodium (Pravachol) 40 mg PO DAILY [facility] Last Admin: 01/12/18 09:12 Dose: 40 mg Quetiapine Fumarate (Seroquel) 25 mg PO HS [facility] Last Admin: 01/11/18 20:00 Dose: 25 mg Senna/Docusate Sodium (Kaylyn-Colace) 1 tab PO BID [facility] Last Admin: 01/12/18 09:12 Dose: 1 tab Sodium Chloride (Ns Flush) 2 ml IV.FLUSH UNSCH PRN PRN Reason: FLUSH AFTER USING IV ACCESS Last Admin: 01/10/18 09:30 Dose: 2 ml Sodium Chloride (Sodium Chloride 3% Neb) 2 ml NEB Q4HR NEB [facility] Last Admin: 01/12/18 12:30 Dose: 2 ml Sodium Chloride (Ns Flush) 2 ml IV.FLUSH BID [facility] Last Admin: 01/12/18 09:11 Dose: 2 ml Sodium Chloride (Ns Flush) 2 ml IV.FLUSH BID [facility] Last Admin: 01/12/18 09:50 Dose: 2 ml Sodium Chloride (Ns Flush) 2 ml IV.FLUSH PRN PRN PRN Reason: FLUSH AFTER USING IV ACCESS Valproate Sodium (Depakene Liq) 500 mg NG/OG TID [facility] Last Admin: 01/12/18 13:17 Dose: 500 mg Vancomycin HCl (Vancomycin Po) 500 mg PO QID [facility] Last Admin: 01/12/18 13:18 Dose: 500 mg <ValderramaRoya - Last Filed: 01/12/18 14:11> Active Medications: Active Medications Acetaminophen (Tylenol Liq) 650 mg NG/OG Q6H PRN PRN Reason: FEVER Last Admin: 01/12/18 09:21 Dose: 650 mg Albuterol (Albuterol Neb (Prn)) 2.5 mg NEB Q2HR NEB PRN PRN Reason: DYSPNEA Last Admin: 01/11/18 03:54 Dose: 2.5 mg Albuterol (Duoneb Neb ([facility])) 1 ampul NEB Q4HR NEB [facility] Last Admin: 01/12/18 15:37 Dose: 1 ampul Artificial Tears (Refresh Tears 0.5% Opth Drops) 1 drop EACH EYE BID [facility] Last Admin: 01/12/18 09:12 Dose: 1 drop Bisacodyl (Dulcolax Supp) 10 mg RECTAL DAILY PRN PRN Reason: if no BM in last 24h Chlorhexidine Gluconate (Peridex 0.12% Oral Kit) 15 ml OROPHARYNG BID@0800, 2000 [facility] Last Admin: 01/12/18 09:08 Dose: 15 ml Collagenase (Santyl Oint) 1 applicatio TOPICAL DAILY [facility] Last Admin: 01/12/18 09:12 Dose: 1 applicatio Dextrose (D50w Vial) 50 ml IV.PUSH UNSCH PRN PRN Reason: PER HYPOGLYCEMIA PROTOCOL Famotidine (Pepcid) 20 mg PO BID [facility] Last Admin: 01/12/18 09:11 Dose: 20 mg Furosemide (Lasix Inj) 40 mg IV.PUSH DAILY [facility] Last Admin: 01/12/18 09:10 Dose: 40 mg Glucagon (Glucagon Inj) 1 mg OTHER PRN PRN PRN Reason: for Hypoglycemia Protocol Heparin Sodium (Porcine) (Heparin Inj) 5,000 units SQ Q8HR [facility] Last Admin: 01/12/18 13:18 Dose: 5,000 units Fentanyl (Fentanyl 10 Mcg/Ml Premix Drip) 2,500 mcg in 250 mls @ 5 mls/hr IV.SIG TITRATE PRN; Protocol PRN Reason: Per Protocol Last Admin: 01/12/18 04:59 Dose: 250 mcg/hr, 25 mls/hr Magnesium Sulfate 4 gm/ Sodium (Chloride) 100 mls @ 50 mls/hr IV.SIG UNSCH PRN PRN Reason: For Magnesium 0.9 - 1.1 mg/dL Magnesium Sulfate 2 gm/ Sodium (Chloride) 100 mls @ 50 mls/hr IV.SIG UNSCH PRN PRN Reason: For Magnesium 1.2 - 1.6 mg/dL Last Infusion: 01/02/18 18:23 Dose: Infused Potassium Chloride (Kcl 40 Meq Premix Inj) 40 meq in 100 mls @ 25 mls/hr IV.SIG Q2H PRN PRN Reason: For Potassium 2.8 - 3.2 mEq/L Last Infusion: 01/09/18 17:38 Dose: Infused Potassium Chloride (Kcl 20 Meq Premix Inj) 20 meq in 100 mls @ 50 mls/hr IV.SIG Q2H PRN PRN Reason: For Potassium 3.3 - 3.5 mEq/L Last Infusion: 01/06/18 15:52 Dose: Infused Potassium Chloride (Kcl 40 Meq Premix Inj) 40 meq in 100 mls @ 25 mls/hr IV.SIG UNSCH PRN PRN Reason: For Potassium 3.3 - 3.5 mEq/L Last Infusion: 12/29/17 12:09 Dose: Infused Potassium Chloride (Kcl 20 Meq Premix Inj) 20 meq in 100 mls @ 50 mls/hr IV.SIG Q2H PRN PRN Reason: For Potassium 2.8 - 3.2 mEq/L Last Infusion: 01/07/18 10:00 Dose: Infused Potassium Phosphate 30 mmol/ (Sodium Chloride) 260 mls @ 42 mls/hr IV.SIG UNSCH PRN PRN Reason: SEE LABEL COMMENTS Sodium Phosphate 30 mmol/ (Sodium Chloride) 260 mls @ 42 mls/hr IV.SIG UNSCH PRN PRN Reason: For Phosphorus < 2.5 mg/dL Last Infusion: 12/19/17 21:50 Dose: Infused Propofol (Diprivan 1000 Mg/100 Ml Inj) 1,000 mg in 100 mls @ 2.904 mls/hr IV.CONT TITRATE PRN; Protocol PRN Reason: Per Protocol Last Admin: 01/12/18 15:50 Dose: 50 mcg/kg/min, 29.04 mls/hr Dexmedetomidine HCl 200 mcg/ (Sodium Chloride) 50 mls @ 3.48 mls/hr IV.CONT TITRATE PRN; Protocol PRN Reason: Per Protocol Last Titration: 01/12/18 07:59 Dose: 0 mcg/kg/hr, 0 mls/hr Insulin Human Regular (Novolin R Correctional Sugar Inj) 0 units SQ Q6HR ENDER; Protocol Last Admin: 01/12/18 13:17 Dose: Not Given Lactulose (Lactulose Liq) 30 ml PO BID [facility] Last Admin: 01/12/18 09:10 Dose: 30 ml Lactulose (Lactulose Liq) 30 ml PO QID PRN PRN Reason: SEVERE CONSITIPATION Magnesium Oxide (Mag-Ox) 800 mg PO UNSCH PRN PRN Reason: For Magnesium 1.2 - 1.6 mg/dL Metoclopramide HCl (Reglan Inj) 5 mg IV.PUSH Q8HR ENDER; Protocol Last Admin: 01/12/18 13:19 Dose: 5 mg Metoprolol Tartrate (Lopressor Inj) 5 mg IV.PUSH Q6H PRN PRN Reason: HR>100 Last Admin: 01/12/18 10:37 Dose: 5 mg Miscellaneous Medication () 1 each OROPHARYNG 0000,0400,1200,1600 [facility] Last Admin: 01/12/18 15:48 Dose: 1 each Ondansetron HCl (Zofran Inj) 4 mg IV.PUSH Q6H PRN PRN Reason: NAUSEA OR VOMITING Polyethylene Glycol (Miralax) 17 gm PO BID [facility] Last Admin: 01/12/18 09:11 Dose: 17 gm Potassium Bicarb/Potassium Chloride (K-Lyte Cl Eff) 50 meq PO UNSCH PRN PRN Reason: For Potassium 3.3 - 3.5 mEq/L Last Admin: 01/09/18 22:19 Dose: 50 meq Potassium Bicarb/Potassium Chloride (K-Lyte Cl Eff) 40 meq NG/OG DAILY [facility] Last Admin: 01/12/18 09:09 Dose: 40 meq Potassium Phosphate (K-Phos Original) 2,000 mg PO Q4H PRN PRN Reason: Phosphorus Less Than 2.5 mg/dL Last Admin: 12/25/17 02:42 Dose: 2,000 mg Potassium Phosphate (K-Phos Original) 2,000 mg PO UNSCH PRN PRN Reason: SEE LABEL COMMENTS Last Admin: 12/24/17 19:29 Dose: 2,000 mg Pravastatin Sodium (Pravachol) 40 mg PO DAILY [facility] Last Admin: 01/12/18 09:12 Dose: 40 mg Quetiapine Fumarate (Seroquel) 25 mg PO HS [facility] Last Admin: 01/11/18 20:00 Dose: 25 mg Senna/Docusate Sodium (Kaylyn-Colace) 1 tab PO BID [facility] Last Admin: 01/12/18 09:12 Dose: 1 tab Sodium Chloride (Ns Flush) 2 ml IV.FLUSH UNSCH PRN PRN Reason: FLUSH AFTER USING IV ACCESS Last Admin: 01/10/18 09:30 Dose: 2 ml Sodium Chloride (Sodium Chloride 3% Neb) 2 ml NEB Q4HR NEB [facility] Last Admin: 01/12/18 15:37 Dose: 2 ml Sodium Chloride (Ns Flush) 2 ml IV.FLUSH BID [facility] Last Admin: 01/12/18 09:11 Dose: 2 ml Sodium Chloride (Ns Flush) 2 ml IV.FLUSH BID [facility] Last Admin: 01/12/18 09:50 Dose: 2 ml Sodium Chloride (Ns Flush) 2 ml IV.FLUSH PRN PRN PRN Reason: FLUSH AFTER USING IV ACCESS Valproate Sodium (Depakene Liq) 500 mg NG/OG TID [facility] Last Admin: 01/12/18 13:17 Dose: 500 mg Vancomycin HCl (Vancomycin Po) 500 mg PO QID [facility] Last Admin: 01/12/18 13:18 Dose: 500 mg <Brennan Barrientos A - Last Filed: 01/12/18 16:31> Allergies Allergy/AdvReac Type Severity Reaction Status Date / Time No Known Allergies Allergy Verified 12/13/17 08:04 Home Medications Medication Instructions Recorded Confirmed Type lisinopril 30 mg PO DAILY 11/23/17 12/17/17 History pravastatin 40 mg PO DAILY 11/23/17 12/17/17 History tizanidine 4 mg PO DAILY 11/23/17 12/17/17 History Exam Vital signs: Vital Signs 01/11/18 14:49 01/11/18 14:55 01/11/18 15:00 Temperature Pulse Rate 101 H 106 H 104 H Respiratory Rate 20 20 20 Blood Pressure 88/59 L 82/53 L 88/58 L Pulse Oximetry 99 99 99 01/11/18 15:05 01/11/18 15:10 01/11/18 15:15 Temperature Pulse Rate 101 H 107 H 105 H Respiratory Rate 20 15 24 Blood Pressure 90/58 L 178/107 H 145/90 H Pulse Oximetry 99 99 99 01/11/18 15:20 01/11/18 15:25 01/11/18 15:30 Temperature Pulse Rate 106 H 106 H 105 H Respiratory Rate 22 20 20 Blood Pressure 171/99 H 154/90 H 143/81 H Pulse Oximetry 99 99 100 01/11/18 15:35 01/11/18 15:40 01/11/18 15:45 Temperature Pulse Rate 103 H 101 H 101 H Respiratory Rate 20 24 24 Blood Pressure 133/73 134/92 H 139/90 Pulse Oximetry 100 100 100 01/11/18 15:50 01/11/18 16:00 01/11/18 16:30 Temperature Pulse Rate 100 H 99 H 93 H Respiratory Rate 20 20 16 Blood Pressure 121/82 127/81 94/69 L Pulse Oximetry 100 100 98 01/11/18 16:33 01/11/18 17:00 01/11/18 17:31 Temperature Pulse Rate 95 H 108 H Respiratory Rate 16 16 21 Blood Pressure 97/72 L 197/95 H Pulse Oximetry 99 98 100 01/11/18 18:00 01/11/18 18:31 01/11/18 19:00 Temperature Pulse Rate 115 H 99 H 104 H Respiratory Rate 21 16 18 Blood Pressure 179/96 H 113/76 139/81 Pulse Oximetry 93 L 100 100 01/11/18 19:30 01/11/18 19:55 01/11/18 20:00 Temperature 99.5 F Pulse Rate 100 H 105 H 105 H Respiratory Rate 16 16 16 Blood Pressure 109/69 158/90 H Pulse Oximetry 100 95 100 01/11/18 20:30 01/11/18 21:00 01/11/18 21:31 Temperature Pulse Rate 106 H 101 H 113 H Respiratory Rate 16 16 22 Blood Pressure 107/73 100/69 159/99 H Pulse Oximetry 100 100 100 01/11/18 22:00 01/11/18 22:30 01/11/18 23:00 Temperature Pulse Rate 111 H 110 H 122 H Respiratory Rate 17 16 19 Blood Pressure 131/84 119/82 154/86 H Pulse Oximetry 100 100 100 01/11/18 23:30 01/11/18 23:50 01/12/18 00:00 Temperature 98.2 F Pulse Rate 122 H 120 H 127 H Respiratory Rate 17 16 20 Blood Pressure 135/82 157/83 H Pulse Oximetry 100 100 100 01/12/18 00:30 01/12/18 01:00 01/12/18 01:30 Temperature Pulse Rate 131 H 128 H 130 H Respiratory Rate 18 19 15 Blood Pressure 128/76 131/74 120/78 Pulse Oximetry 100 100 01/12/18 02:00 01/12/18 02:30 01/12/18 03:00 Temperature Pulse Rate 125 H 121 H 123 H Respiratory Rate 17 17 18 Blood Pressure 121/74 126/77 140/83 Pulse Oximetry 100 100 100 01/12/18 03:30 01/12/18 04:00 01/12/18 04:10 Temperature 99.7 F H Pulse Rate 118 H 114 H 114 H Respiratory Rate 17 16 16 Blood Pressure 123/76 120/73 Pulse Oximetry 100 100 01/12/18 04:26 01/12/18 04:30 01/12/18 05:00 Temperature Pulse Rate 120 H 122 H Respiratory Rate 17 13 8 L Blood Pressure 128/78 133/76 Pulse Oximetry 100 100 01/12/18 05:30 01/12/18 06:00 01/12/18 06:30 Temperature Pulse Rate 120 H 120 H 107 H Respiratory Rate 18 18 17 Blood Pressure 136/77 130/74 103/60 Pulse Oximetry 100 100 100 01/12/18 07:00 01/12/18 07:30 01/12/18 08:00 Temperature 99.9 F H Pulse Rate 100 H 112 H 110 H Respiratory Rate 16 20 19 Blood Pressure 96/61 L 139/83 112/70 Pulse Oximetry 99 100 100 01/12/18 08:24 01/12/18 08:30 01/12/18 09:00 Temperature Pulse Rate 113 H 111 H Respiratory Rate 17 20 21 Blood Pressure 175/96 H 125/72 Pulse Oximetry 100 100 100 01/12/18 09:30 01/12/18 10:00 01/12/18 10:08 Temperature Pulse Rate 118 H 114 H Respiratory Rate 24 17 20 Blood Pressure 130/81 133/78 Pulse Oximetry 92 L 100 100 01/12/18 10:30 01/12/18 10:42 01/12/18 11:00 Temperature Pulse Rate 117 H 103 H 99 H Respiratory Rate 22 20 21 Blood Pressure 144/80 H 140/78 134/80 Pulse Oximetry 100 100 100 01/12/18 11:30 01/12/18 12:00 01/12/18 12:27 Temperature 99.6 F Pulse Rate 96 H 104 H Respiratory Rate 20 20 Blood Pressure 112/64 149/84 H Pulse Oximetry 98 99 99 01/12/18 12:30 01/12/18 12:33 Temperature Pulse Rate 107 H 107 H Respiratory Rate 18 20 Blood Pressure 137/84 Pulse Oximetry 99 Intake & Output 01/11/18 01/12/18 01/12/18 18:59 06:59 18:59 Intake Total 728 / 728 1186 / 1186 95 / 95 Output Total 1400 / 1400 900 / 900 Balance -672 / -672 286 / 286 95 / 95 Weight 67.5 kg Intake: IV 700 / 700 640 / 640 95 / 95 Diprivan 1000 mg/100 ml Inj 1, 100 / 100 290 / 290 95 / 95 000 mg In 100 ml @ 5 MCG/KG/MIN 2.904 mls/hr IV.CONT TITRATE PRN Rx#:[id number] Zosyn 4.5 GM Premix 4.5 gm In 100 / 100 100 / 100 100 ml @ 200 mls/hr IV.SIG Q6H ENDER Rx#:[id number] fentaNYL 10 mcg/mL Premix Drip 500 / 500 250 / 250 2,500 mcg In 250 ml @ 50 MCG/HR 5 mls/hr IV.SIG TITRATE PRN Rx #:[id number] Tube Feeding 546 / 546 Output: Urine 400 / 400 500 / 500 Stool 1000 / 1000 300 / 300 Chest Tube Drainage 0 / 0 100 / 100 Right Y Connected 0 / 0 100 / 100 Other: # Incontinent Voids 2 Date of Last Bowel Movement 01/11/18 01/11/18 01/11/18 - Constitutional chronically ill appearing Comments: Critically ill with tracheostomy and mechanically ventilated - Routine HEENT Exam Head: Present: normocephalic - Routine Respiratory Exam Present: patient mechanically ventilated - Routine Cardiovascular Exam Present: S1, S2 - Routine Abdominal Exam Present: soft, normoactive bowel sounds. Absent: tenderness, distended, guarding, firm - Routine Extremities Exam Present: pulses intact - Routine Skin Exam Present: dry, warm - Routine Neurological Exam Sedated for ventilator synchrony Propofol <Roya Valderrama - Last Filed: 01/12/18 14:11> Vital signs: Vital Signs 01/11/18 16:33 01/11/18 17:00 01/11/18 17:31 Temperature Pulse Rate 95 H 108 H Respiratory Rate 16 16 21 Blood Pressure 97/72 L 197/95 H Pulse Oximetry 99 98 100 01/11/18 18:00 01/11/18 18:31 01/11/18 19:00 Temperature Pulse Rate 115 H 99 H 104 H Respiratory Rate 21 16 18 Blood Pressure 179/96 H 113/76 139/81 Pulse Oximetry 93 L 100 100 01/11/18 19:30 01/11/18 19:55 01/11/18 20:00 Temperature 99.5 F Pulse Rate 100 H 105 H 105 H Respiratory Rate 16 16 16 Blood Pressure 109/69 158/90 H Pulse Oximetry 100 95 100 01/11/18 20:30 01/11/18 21:00 01/11/18 21:31 Temperature Pulse Rate 106 H 101 H 113 H Respiratory Rate 16 16 22 Blood Pressure 107/73 100/69 159/99 H Pulse Oximetry 100 100 100 01/11/18 22:00 01/11/18 22:30 01/11/18 23:00 Temperature Pulse Rate 111 H 110 H 122 H Respiratory Rate 17 16 19 Blood Pressure 131/84 119/82 154/86 H Pulse Oximetry 100 100 100 01/11/18 23:30 01/11/18 23:50 01/12/18 00:00 Temperature 98.2 F Pulse Rate 122 H 120 H 127 H Respiratory Rate 17 16 20 Blood Pressure 135/82 157/83 H Pulse Oximetry 100 100 100 01/12/18 00:30 01/12/18 01:00 01/12/18 01:30 Temperature Pulse Rate 131 H 128 H 130 H Respiratory Rate 18 19 15 Blood Pressure 128/76 131/74 120/78 Pulse Oximetry 100 100 01/12/18 02:00 01/12/18 02:30 01/12/18 03:00 Temperature Pulse Rate 125 H 121 H 123 H Respiratory Rate 17 17 18 Blood Pressure 121/74 126/77 140/83 Pulse Oximetry 100 100 100 01/12/18 03:30 01/12/18 04:00 01/12/18 04:10 Temperature 99.7 F H Pulse Rate 118 H 114 H 114 H Respiratory Rate 17 16 16 Blood Pressure 123/76 120/73 Pulse Oximetry 100 100 01/12/18 04:26 01/12/18 04:30 01/12/18 05:00 Temperature Pulse Rate 120 H 122 H Respiratory Rate 17 13 8 L Blood Pressure 128/78 133/76 Pulse Oximetry 100 100 01/12/18 05:30 01/12/18 06:00 01/12/18 06:30 Temperature Pulse Rate 120 H 120 H 107 H Respiratory Rate 18 18 17 Blood Pressure 136/77 130/74 103/60 Pulse Oximetry 100 100 100 01/12/18 07:00 01/12/18 07:30 01/12/18 08:00 Temperature 99.9 F H Pulse Rate 100 H 112 H 110 H Respiratory Rate 16 20 19 Blood Pressure 96/61 L 139/83 112/70 Pulse Oximetry 99 100 100 01/12/18 08:24 01/12/18 08:30 01/12/18 09:00 Temperature Pulse Rate 113 H 111 H Respiratory Rate 17 20 21 Blood Pressure 175/96 H 125/72 Pulse Oximetry 100 100 100 01/12/18 09:30 01/12/18 10:00 01/12/18 10:08 Temperature Pulse Rate 118 H 114 H Respiratory Rate 24 17 20 Blood Pressure 130/81 133/78 Pulse Oximetry 92 L 100 100 01/12/18 10:30 01/12/18 10:42 01/12/18 11:00 Temperature Pulse Rate 117 H 103 H 99 H Respiratory Rate 22 20 21 Blood Pressure 144/80 H 140/78 134/80 Pulse Oximetry 100 100 100 01/12/18 11:30 01/12/18 12:00 01/12/18 12:27 Temperature 99.6 F Pulse Rate 96 H 104 H Respiratory Rate 20 20 Blood Pressure 112/64 149/84 H Pulse Oximetry 98 99 99 01/12/18 12:30 01/12/18 12:33 01/12/18 13:00 Temperature Pulse Rate 107 H 107 H 107 H Respiratory Rate 18 20 19 Blood Pressure 137/84 135/79 Pulse Oximetry 99 99 01/12/18 13:30 01/12/18 14:00 01/12/18 15:35 Temperature Pulse Rate 108 H 109 H Respiratory Rate 17 18 17 Blood Pressure 147/89 H 152/90 H Pulse Oximetry 99 100 100 01/12/18 15:39 Temperature Pulse Rate 113 H Respiratory Rate 17 Blood Pressure Pulse Oximetry Intake & Output 01/11/18 01/12/18 01/12/18 18:59 06:59 18:59 Intake Total 728 / 728 1186 / 1186 185 / 185 Output Total 1400 / 1400 900 / 900 Balance -672 / -672 286 / 286 185 / 185 Weight 67.5 kg Intake: IV 700 / 700 640 / 640 185 / 185 Diprivan 1000 mg/100 ml Inj 1, 100 / 100 290 / 290 185 / 185 000 mg In 100 ml @ 5 MCG/KG/MIN 2.904 mls/hr IV.CONT TITRATE PRN Rx#:[id number] Zosyn 4.5 GM Premix 4.5 gm In 100 / 100 100 / 100 100 ml @ 200 mls/hr IV.SIG Q6H ENDER Rx#:[id number] fentaNYL 10 mcg/mL Premix Drip 500 / 500 250 / 250 2,500 mcg In 250 ml @ 50 MCG/HR 5 mls/hr IV.SIG TITRATE PRN Rx #:[id number] Tube Feeding 546 / 546 Output: Urine 400 / 400 500 / 500 Stool 1000 / 1000 300 / 300 Chest Tube Drainage 0 / 0 100 / 100 Right Y Connected 0 / 0 100 / 100 Other: # Incontinent Voids 2 Date of Last Bowel Movement 01/11/18 01/11/18 01/11/18 <Brennan Barrientos - Last Filed: 01/12/18 16:31> Results - Labs CBC & Chem 7: 01/12/18 08:37 01/12/18 05:14 Labs: Laboratory Results - last 24 hr 01/11/18 01/11/18 01/12/18 17:54 22:59 04:55 WBC RBC Hgb Hct MCV MCH MCHC RDW Plt Count MPV Prelim Diff (Auto) Neut % (Auto) Lymph % (Auto) [place] % (Auto) Eos % (Auto) Baso % (Auto) Neut # (Auto) Lymph # (Auto) [place] # (Auto) Eos # (Auto) Baso # (Auto) WBC Differential Seg Neuts % (Manual) Band Neuts % (Manual) Lymphocytes % (Manual) Monocytes % (Manual) Eosinophils % (Manual) Basophils % (Manual) Metamyelocytes % (Man) Abs Neuts (Manual) Differential Comment Toxic Granulation Platelet Estimate Platelet Morphology RBC Morphology Sodium Potassium Chloride Carbon Dioxide Anion Gap BUN Creatinine Estimated GFR POC Glucose 85 101 95 Random Glucose Calcium Phosphorus Magnesium Total Bilirubin AST ALT Alkaline Phosphatase Total Protein Albumin Valproic Acid 01/12/18 01/12/18 01/12/18 05:14 08:37 11:42 WBC 9.3 RBC 3.59 L Hgb 11.3 L Hct 33.9 L MCV 94.6 MCH 31.6 MCHC 33.4 RDW 15.9 Plt Count 381 MPV 9.0 Prelim Diff (Auto) Slide review pending Neut % (Auto) 55.3 Lymph % (Auto) 23.8 [place] % (Auto) 11.3 H Eos % (Auto) 8.9 H Baso % (Auto) 0.7 Neut # (Auto) 5.1 Lymph # (Auto) 2.2 [place] # (Auto) 1.0 H Eos # (Auto) 0.8 H Baso # (Auto) 0.1 WBC Differential Manual diff final Seg Neuts % (Manual) 42 Band Neuts % (Manual) 23 H Lymphocytes % (Manual) 14 Monocytes % (Manual) 6 Eosinophils % (Manual) 8 H Basophils % (Manual) 2 Metamyelocytes % (Man) 5 H Abs Neuts (Manual) 6.5 Differential Comment . Toxic Granulation 2+ H Platelet Estimate Normal Platelet Morphology Enlarged H RBC Morphology Normal Sodium 142 Potassium 4.9 D Chloride 104 Carbon Dioxide 27.3 Anion Gap 11 BUN 15 Creatinine 0.46 L Estimated GFR Greater than 89 POC Glucose 117 H Random Glucose 95 Calcium 8.4 L Phosphorus 5.5 H D Magnesium 1.8 Total Bilirubin 0.4 AST 32 ALT 15 Alkaline Phosphatase 108 Total Protein 6.5 Albumin 1.7 L Valproic Acid 24 L - Imaging Impressions Chest X-Ray 01/11/18 15:27 CONCLUSION: 1. Interval placement of tracheostomy tube. The endotracheal tube and nasogastric tube have been removed. 2. 2 right-sided chest tube in place with right apical pleural parenchymal change. 3. Hazy opacity remains in both lungs without change right greater than left. Chest X-Ray 01/12/18 06:00 CONCLUSION: 1. Right IJ central venous catheter no longer seen. 2. No significant interval change in patchy bilateral lung opacity. 3. Right-sided chest tubes remain in place. No evidence of pneumothorax. <Roya Valderrama - Last Filed: 01/12/18 14:11> - Labs CBC & Chem 7: 01/12/18 08:37 01/12/18 05:14 Labs: Laboratory Results - last 24 hr 01/11/18 01/11/18 01/12/18 17:54 22:59 04:55 WBC RBC Hgb Hct MCV MCH MCHC RDW Plt Count MPV Prelim Diff (Auto) Neut % (Auto) Lymph % (Auto) [place] % (Auto) Eos % (Auto) Baso % (Auto) Neut # (Auto) Lymph # (Auto) [place] # (Auto) Eos # (Auto) Baso # (Auto) WBC Differential Seg Neuts % (Manual) Band Neuts % (Manual) Lymphocytes % (Manual) Monocytes % (Manual) Eosinophils % (Manual) Basophils % (Manual) Metamyelocytes % (Man) Abs Neuts (Manual) Differential Comment Toxic Granulation Platelet Estimate Platelet Morphology RBC Morphology Sodium Potassium Chloride Carbon Dioxide Anion Gap BUN Creatinine Estimated GFR POC Glucose 85 101 95 Random Glucose Calcium Phosphorus Magnesium Total Bilirubin AST ALT Alkaline Phosphatase Total Protein Albumin Valproic Acid 01/12/18 01/12/18 01/12/18 05:14 08:37 11:42 WBC 9.3 RBC 3.59 L Hgb 11.3 L Hct 33.9 L MCV 94.6 MCH 31.6 MCHC 33.4 RDW 15.9 Plt Count 381 MPV 9.0 Prelim Diff (Auto) Slide review pending Neut % (Auto) 55.3 Lymph % (Auto) 23.8 [place] % (Auto) 11.3 H Eos % (Auto) 8.9 H Baso % (Auto) 0.7 Neut # (Auto) 5.1 Lymph # (Auto) 2.2 [place] # (Auto) 1.0 H Eos # (Auto) 0.8 H Baso # (Auto) 0.1 WBC Differential Manual diff final Seg Neuts % (Manual) 42 Band Neuts % (Manual) 23 H Lymphocytes % (Manual) 14 Monocytes % (Manual) 6 Eosinophils % (Manual) 8 H Basophils % (Manual) 2 Metamyelocytes % (Man) 5 H Abs Neuts (Manual) 6.5 Differential Comment . Toxic Granulation 2+ H Platelet Estimate Normal Platelet Morphology Enlarged H RBC Morphology Normal Sodium 142 Potassium 4.9 D Chloride 104 Carbon Dioxide 27.3 Anion Gap 11 BUN 15 Creatinine 0.46 L Estimated GFR Greater than 89 POC Glucose 117 H Random Glucose 95 Calcium 8.4 L Phosphorus 5.5 H D Magnesium 1.8 Total Bilirubin 0.4 AST 32 ALT 15 Alkaline Phosphatase 108 Total Protein 6.5 Albumin 1.7 L Valproic Acid 24 L - Imaging Impressions Chest X-Ray 01/11/18 15:27 CONCLUSION: 1. Interval placement of tracheostomy tube. The endotracheal tube and nasogastric tube have been removed. 2. 2 right-sided chest tube in place with right apical pleural parenchymal change. 3. Hazy opacity remains in both lungs without change right greater than left. Chest X-Ray 01/12/18 06:00 CONCLUSION: 1. Right IJ central venous catheter no longer seen. 2. No significant interval change in patchy bilateral lung opacity. 3. Right-sided chest tubes remain in place. No evidence of pneumothorax. <Brennan Barrientos - Last Filed: 01/12/18 16:31> Assessment and Plan (1) PEG (percutaneous endoscopic gastrostomy) adjustment/replacement/removal Status: Acute Code(s): Z43.1 - Encounter for attention to gastrostomy - Plan This patient is a 62-year-old female who was admitted on 11/23/2017 with a diagnosis of colitis. Patient was found to have enterovirus. Patient was discharged to home on 12/11/2017 on p.o. vancomycin. Patient was readmitted to [facility] on 1020 with reported altered mental status and hypoglycemia. Patient was then discharged on 1022. Per patient's spouse, patient started to experience fatigue and was unable to return back to her home in [place] on 12/16/2017. Patient was then readmitted to [facility] on 12/17/2017 after being noted to be unarousable by her spouse. Upon admission chest x-ray revealed bilateral pulmonary infiltrates. Patient was noted to be unstable and hypotensive. Upon consultation, patient has tracheostomy tube and is mechanically ventilated. Right chest tube present. Fentanyl, propofol infusing. Sinus tach 104 BP 95/54 with saturation 98%. Patient currently has NG tube with a vital 1.5 at 55 mL's per hour as per nutritional recommendation. Patient has rectal tube-dignity shield expelling moderate amounts of brown liquid stool. Our service has been consulted to evaluate patient for PEG tube placement at this time Plan -Obtain consent for PEG tube placement -Tube feeding to be turned off after midnight -Dietary recommendation noted for tube feeding -Antiemetic and prokinetic as per attending -Supportive care -Aspiration precautions-had elevation -Bowel regimen -Further recommendations to follow This patient has been seen by myself and Dr. Barrientos and this note is written on his behalf - Attending Attestation Dr. Barrientos <Ryoa Valderrama - Last Filed: 01/12/18 14:11> (1) PEG (percutaneous endoscopic gastrostomy) adjustment/replacement/removal Status: Acute Code(s): Z43.1 - Encounter for attention to gastrostomy - Attending Attestation Plan as above, will obtain the consent for PEG placement in AM. Thank you for the consult. <Brennan Barrientos - Last Filed: 01/12/18 16:31>
--- NOTE | 2018-01-12 15:00 | P.PNCV ---
- Note Subjective/Hospital Course: pt now has 3 right sided chest tube #3 has 2-3 = air leak , #2 +1 all to 40cm suction pt now off pressors remains sedated on vent 55% fio2 +8 peep may need to re-eval for repeat ct scan in am pt will not tolerate one lung ventilation at this during any surgery will continue to monitor 12/23 pt now on 75% Fi02 peep down to 5 , no on flolan sub q emphysema with some improvement chest x 3 apical #3 +2 continuous air leak mid #2 + 1 air leak lower #1 no air leak all to 40 cm suction will monitor 12/26 Hemodynamically and clinically better One chest tube removed. 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 air leak at site all chest tube site area cleansed with chlorhexidine, iodoform gauze to old chest tube site vaseline gauze to other chest tubes / dry dressing applied / also # 2 chest tube had kink placed 2 tongue depressors along side of tube top prevent kinking and taped to chest pt still had +1-2 air leak in #3 chest tube 01/04 ct chest reviewed stable / improved, no air leak in chest tubes at present continue to monitor / no surgery indicated at present with: Improving pneumomediastinum, pneumopericardium and subcutaneous emphysema. Near complete resolution of previous right pneumothorax. 01/[address] Joseph and Dr Garces pt does have air leak when turned to left +2 , discussed with Dr Marquez/ covering for Dr Lynn will proceed with surgery on Thursday right thoracotomy, decortication, bleb resection / discussed with 01/07 pt on CPAP trials, still has + 2 air leak #3 marked chest tube for surgery on am 01/08 surgery Preoperative Diagnosis (1) Loculated pleural effusion (2) Bronchopleural fistula Postoperative Diagnosis: same Date of procedure: 01/08/18 Procedure: Right thoracoscopic decortication, closure of bronchopleural fistula Debridement and irrigation of the prior chest tube wounds (3 01/09/18 Intubated, sedated 01/10 on vent PRVC mode for trach today chest tube to 20cm suction, no air leak 01/11 s/p bedside trach, remains on PRVC mode and sedation grimaces to pain, opens eyes, not follows commands no air leak in chest tube, leave to suction for now recommend keeping chest tube in / until pt off vent and tolerating trach collar Objective: Vital Signs - 24 hr 01/11/18 15:00 01/11/18 15:05 01/11/18 15:10 Temperature Pulse Rate 104 H 101 H 107 H Respiratory Rate 20 20 15 Blood Pressure 88/58 L 90/58 L 178/107 H Pulse Oximetry 99 99 99 01/11/18 15:15 01/11/18 15:20 01/11/18 15:25 Temperature Pulse Rate 105 H 106 H 106 H Respiratory Rate 24 22 20 Blood Pressure 145/90 H 171/99 H 154/90 H Pulse Oximetry 99 99 99 01/11/18 15:30 01/11/18 15:35 01/11/18 15:40 Temperature Pulse Rate 105 H 103 H 101 H Respiratory Rate 20 20 24 Blood Pressure 143/81 H 133/73 134/92 H Pulse Oximetry 100 100 100 01/11/18 15:45 01/11/18 15:50 01/11/18 16:00 Temperature Pulse Rate 101 H 100 H 99 H Respiratory Rate 24 20 20 Blood Pressure 139/90 121/82 127/81 Pulse Oximetry 100 100 100 01/11/18 16:30 01/11/18 16:33 01/11/18 17:00 Temperature Pulse Rate 93 H 95 H Respiratory Rate 16 16 16 Blood Pressure 94/69 L 97/72 L Pulse Oximetry 98 99 98 01/11/18 17:31 01/11/18 18:00 01/11/18 18:31 Temperature Pulse Rate 108 H 115 H 99 H Respiratory Rate 21 21 16 Blood Pressure 197/95 H 179/96 H 113/76 Pulse Oximetry 100 93 L 100 01/11/18 19:00 01/11/18 19:30 01/11/18 19:55 Temperature Pulse Rate 104 H 100 H 105 H Respiratory Rate 18 16 16 Blood Pressure 139/81 109/69 Pulse Oximetry 100 100 95 01/11/18 20:00 01/11/18 20:30 01/11/18 21:00 Temperature 99.5 F Pulse Rate 105 H 106 H 101 H Respiratory Rate 16 16 16 Blood Pressure 158/90 H 107/73 100/69 Pulse Oximetry 100 100 100 01/11/18 21:31 01/11/18 22:00 01/11/18 22:30 Temperature Pulse Rate 113 H 111 H 110 H Respiratory Rate 22 17 16 Blood Pressure 159/99 H 131/84 119/82 Pulse Oximetry 100 100 100 01/11/18 23:00 01/11/18 23:30 01/11/18 23:50 Temperature Pulse Rate 122 H 122 H 120 H Respiratory Rate 19 17 16 Blood Pressure 154/86 H 135/82 Pulse Oximetry 100 100 100 01/12/18 00:00 01/12/18 00:30 01/12/18 01:00 Temperature 98.2 F Pulse Rate 127 H 131 H 128 H Respiratory Rate 20 18 19 Blood Pressure 157/83 H 128/76 131/74 Pulse Oximetry 100 100 100 01/12/18 01:30 01/12/18 02:00 01/12/18 02:30 Temperature Pulse Rate 130 H 125 H 121 H Respiratory Rate 15 17 17 Blood Pressure 120/78 121/74 126/77 Pulse Oximetry 100 100 01/12/18 03:00 01/12/18 03:30 01/12/18 04:00 Temperature 99.7 F H Pulse Rate 123 H 118 H 114 H Respiratory Rate 18 17 16 Blood Pressure 140/83 123/76 120/73 Pulse Oximetry 100 100 100 01/12/18 04:10 01/12/18 04:26 01/12/18 04:30 Temperature Pulse Rate 114 H 120 H Respiratory Rate 16 17 13 Blood Pressure 128/78 Pulse Oximetry 100 01/12/18 05:00 01/12/18 05:30 01/12/18 06:00 Temperature Pulse Rate 122 H 120 H 120 H Respiratory Rate 8 L 18 18 Blood Pressure 133/76 136/77 130/74 Pulse Oximetry 100 100 100 01/12/18 06:30 01/12/18 07:00 01/12/18 07:30 Temperature Pulse Rate 107 H 100 H 112 H Respiratory Rate 17 16 20 Blood Pressure 103/60 96/61 L 139/83 Pulse Oximetry 100 99 100 01/12/18 08:00 01/12/18 08:24 01/12/18 08:30 Temperature 99.9 F H Pulse Rate 110 H 113 H Respiratory Rate 19 17 20 Blood Pressure 112/70 175/96 H Pulse Oximetry 100 100 100 01/12/18 09:00 01/12/18 09:30 01/12/18 10:00 Temperature Pulse Rate 111 H 118 H 114 H Respiratory Rate 21 24 17 Blood Pressure 125/72 130/81 133/78 Pulse Oximetry 100 92 L 100 01/12/18 10:08 01/12/18 10:30 01/12/18 10:42 Temperature Pulse Rate 117 H 103 H Respiratory Rate 20 22 20 Blood Pressure 144/80 H 140/78 Pulse Oximetry 100 100 100 01/12/18 11:00 01/12/18 11:30 01/12/18 12:00 Temperature 99.6 F Pulse Rate 99 H 96 H 104 H Respiratory Rate 21 20 20 Blood Pressure 134/80 112/64 149/84 H Pulse Oximetry 100 98 99 01/12/18 12:27 01/12/18 12:30 01/12/18 12:33 Temperature Pulse Rate 107 H 107 H Respiratory Rate 18 20 Blood Pressure 137/84 Pulse Oximetry 99 99 01/12/18 13:00 01/12/18 13:30 01/12/18 14:00 Temperature Pulse Rate 107 H 108 H 109 H Respiratory Rate 19 17 18 Blood Pressure 135/79 147/89 H 152/90 H Pulse Oximetry 99 99 100 GENERAL: lethargic, RASS-2 SKIN: Warm and dry. HEAD: Normocephalic. EYES: No scleral icterus. No injection or drainage. NECK: Supple, trachea midline. No JVD or lymphadenopathy. trach midline sutured in place CARDIOVASCULAR: Regular rate and rhythm without murmurs, gallops, or rubs. / slightly tachycardic RESPIRATORY: few coarse breath sounds sounds equal bilaterally. No accessory muscle use. chest tubes x 2 right lateral chest wall , no air leak / drained 100cc/ 24 hrs GASTROINTESTINAL: Abdomen soft, non-tender, nondistended. MUSCULOSKELETAL: No cyanosis, or edema. BACK: Nontender without obvious deformity. No CVA tenderness. Labs: Laboratory Results - last 12 hr 01/12/18 01/12/18 01/12/18 04:55 05:14 08:37 WBC 9.3 RBC 3.59 L Hgb 11.3 L Hct 33.9 L MCV 94.6 MCH 31.6 MCHC 33.4 RDW 15.9 Plt Count 381 MPV 9.0 Prelim Diff (Auto) Slide review pending Neut % (Auto) 55.3 Lymph % (Auto) 23.8 [place] % (Auto) 11.3 H Eos % (Auto) 8.9 H Baso % (Auto) 0.7 Neut # (Auto) 5.1 Lymph # (Auto) 2.2 [place] # (Auto) 1.0 H Eos # (Auto) 0.8 H Baso # (Auto) 0.1 WBC Differential Manual diff final Seg Neuts % (Manual) 42 Band Neuts % (Manual) 23 H Lymphocytes % (Manual) 14 Monocytes % (Manual) 6 Eosinophils % (Manual) 8 H Basophils % (Manual) 2 Metamyelocytes % (Man) 5 H Abs Neuts (Manual) 6.5 Differential Comment . Toxic Granulation 2+ H Platelet Estimate Normal Platelet Morphology Enlarged H RBC Morphology Normal Sodium 142 Potassium 4.9 D Chloride 104 Carbon Dioxide 27.3 Anion Gap 11 BUN 15 Creatinine 0.46 L Estimated GFR Greater than 89 POC Glucose 95 Random Glucose 95 Calcium 8.4 L Phosphorus 5.5 H D Magnesium 1.8 Total Bilirubin 0.4 AST 32 ALT 15 Alkaline Phosphatase 108 Total Protein 6.5 Albumin 1.7 L Valproic Acid 24 L 01/12/18 11:42 WBC RBC Hgb Hct MCV MCH MCHC RDW Plt Count MPV Prelim Diff (Auto) Neut % (Auto) Lymph % (Auto) [place] % (Auto) Eos % (Auto) Baso % (Auto) Neut # (Auto) Lymph # (Auto) [place] # (Auto) Eos # (Auto) Baso # (Auto) WBC Differential Seg Neuts % (Manual) Band Neuts % (Manual) Lymphocytes % (Manual) Monocytes % (Manual) Eosinophils % (Manual) Basophils % (Manual) Metamyelocytes % (Man) Abs Neuts (Manual) Differential Comment Toxic Granulation Platelet Estimate Platelet Morphology RBC Morphology Sodium Potassium Chloride Carbon Dioxide Anion Gap BUN Creatinine Estimated GFR POC Glucose 117 H Random Glucose Calcium Phosphorus Magnesium Total Bilirubin AST ALT Alkaline Phosphatase Total Protein Albumin Valproic Acid Result Diagrams: 01/12/18 08:37 11/20/18 05:14 Telemetry: sinus tach - Plan (1) Respiratory failure Plan: on vent 35% / s/p trach leave chest tube in until trached and off vent (2) Pneumonia (1) Respiratory failure Qualifiers: Chronicity: acute Respiratory failure complication: hypoxia and hypercapnia Qualified Code(s): J96.01 - Acute respiratory failure with hypoxia; J96.02 - Acute respiratory failure with hypercapnia (2) Pneumonia Qualifiers: Pneumonia type: due to unspecified organism Laterality: bilateral Lung location: unspecified part of lung Qualified Code(s): J18.9 - Pneumonia, unspecified organism
--- NOTE | 2018-01-12 16:02 | P.PNPAL ---
Reason for Visit Reason for visit: a. To assist with evaluation and management of symptoms including: pain. b. To assist medical decision maker(s) with: better understanding of current medical conditions; weighing benefits/burdens of medical treatment options; making medical treatment decisions. Subjective Subjective/Interval History: Palliative care follow-up for family support, further clarification of goals of care. 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 Sedated on propofol and fentanyl she becomes restless off sedation. Patient opening eyes during my visit but not following any commands. Undergoing CPAP trials today. GI was consulted 01/12 for PEG tube placement, plan for PEG tube 01/13. Laboratory workup today revealing stable hemoglobin at 11.3. Albumin 1.7. Case discussed with bedside RN. Family/Friend Interactions: Met with patient's at bedside. Reviewed current plan of care. reports that he is optimistic and has seen some improvement in spite of prolonged hospitalization. Reviewed short-term and long-term prognosis in the setting of multiple comorbidities, acute events, physical deconditioning and prolonged hospitalization. Reviewed that patient will likely require a prolonged rehabilitation course. We addressed CODE STATUS, reviewed risks, benefits and limitations of CPR given the above. has elected to continue full CODE STATUS and aggressive management at this time. Appreciative of palliative care follow-ups. Advance Directives Living Will: Never completed Health Care Surrogate: Never completed Durable Power of Balloon Maker: Never completed Health Care Surrogate Name and Number: HCP Luis Woodruff Objective Vital Signs: Vital Signs 01/11/18 15:50 01/11/18 16:00 01/11/18 16:30 Temperature Pulse Rate 100 H 99 H 93 H Respiratory Rate 20 20 16 Blood Pressure 121/82 127/81 94/69 L Pulse Oximetry 100 100 98 01/11/18 16:33 01/11/18 17:00 01/11/18 17:31 Temperature Pulse Rate 95 H 108 H Respiratory Rate 16 16 21 Blood Pressure 97/72 L 197/95 H Pulse Oximetry 99 98 100 01/11/18 18:00 01/11/18 18:31 01/11/18 19:00 Temperature Pulse Rate 115 H 99 H 104 H Respiratory Rate 21 16 18 Blood Pressure 179/96 H 113/76 139/81 Pulse Oximetry 93 L 100 100 01/11/18 19:30 01/11/18 19:55 01/11/18 20:00 Temperature 99.5 F Pulse Rate 100 H 105 H 105 H Respiratory Rate 16 16 16 Blood Pressure 109/69 158/90 H Pulse Oximetry 100 95 100 01/11/18 20:30 01/11/18 21:00 01/11/18 21:31 Temperature Pulse Rate 106 H 101 H 113 H Respiratory Rate 16 16 22 Blood Pressure 107/73 100/69 159/99 H Pulse Oximetry 100 100 100 01/11/18 22:00 01/11/18 22:30 01/11/18 23:00 Temperature Pulse Rate 111 H 110 H 122 H Respiratory Rate 17 16 19 Blood Pressure 131/84 119/82 154/86 H Pulse Oximetry 100 100 100 01/11/18 23:30 01/11/18 23:50 01/12/18 00:00 Temperature 98.2 F Pulse Rate 122 H 120 H 127 H Respiratory Rate 17 16 20 Blood Pressure 135/82 157/83 H Pulse Oximetry 100 100 100 01/12/18 00:30 01/12/18 01:00 01/12/18 01:30 Temperature Pulse Rate 131 H 128 H 130 H Respiratory Rate 18 19 15 Blood Pressure 128/76 131/74 120/78 Pulse Oximetry 100 100 01/12/18 02:00 01/12/18 02:30 01/12/18 03:00 Temperature Pulse Rate 125 H 121 H 123 H Respiratory Rate 17 17 18 Blood Pressure 121/74 126/77 140/83 Pulse Oximetry 100 100 100 01/12/18 03:30 01/12/18 04:00 01/12/18 04:10 Temperature 99.7 F H Pulse Rate 118 H 114 H 114 H Respiratory Rate 17 16 16 Blood Pressure 123/76 120/73 Pulse Oximetry 100 100 01/12/18 04:26 01/12/18 04:30 01/12/18 05:00 Temperature Pulse Rate 120 H 122 H Respiratory Rate 17 13 8 L Blood Pressure 128/78 133/76 Pulse Oximetry 100 100 01/12/18 05:30 01/12/18 06:00 01/12/18 06:30 Temperature Pulse Rate 120 H 120 H 107 H Respiratory Rate 18 18 17 Blood Pressure 136/77 130/74 103/60 Pulse Oximetry 100 100 100 01/12/18 07:00 01/12/18 07:30 01/12/18 08:00 Temperature 99.9 F H Pulse Rate 100 H 112 H 110 H Respiratory Rate 16 20 19 Blood Pressure 96/61 L 139/83 112/70 Pulse Oximetry 99 100 100 01/12/18 08:24 01/12/18 08:30 01/12/18 09:00 Temperature Pulse Rate 113 H 111 H Respiratory Rate 17 20 21 Blood Pressure 175/96 H 125/72 Pulse Oximetry 100 100 100 01/12/18 09:30 01/12/18 10:00 01/12/18 10:08 Temperature Pulse Rate 118 H 114 H Respiratory Rate 24 17 20 Blood Pressure 130/81 133/78 Pulse Oximetry 92 L 100 100 01/12/18 10:30 01/12/18 10:42 01/12/18 11:00 Temperature Pulse Rate 117 H 103 H 99 H Respiratory Rate 22 20 21 Blood Pressure 144/80 H 140/78 134/80 Pulse Oximetry 100 100 100 01/12/18 11:30 01/12/18 12:00 01/12/18 12:27 Temperature 99.6 F Pulse Rate 96 H 104 H Respiratory Rate 20 20 Blood Pressure 112/64 149/84 H Pulse Oximetry 98 99 99 01/12/18 12:30 01/12/18 12:33 01/12/18 13:00 Temperature Pulse Rate 107 H 107 H 107 H Respiratory Rate 18 20 19 Blood Pressure 137/84 135/79 Pulse Oximetry 99 99 01/12/18 13:30 01/12/18 14:00 01/12/18 15:35 Temperature Pulse Rate 108 H 109 H Respiratory Rate 17 18 17 Blood Pressure 147/89 H 152/90 H Pulse Oximetry 99 100 100 01/12/18 15:39 Temperature Pulse Rate 113 H Respiratory Rate 17 Blood Pressure Pulse Oximetry Intake & Output 01/11/18 01/12/18 01/12/18 18:59 06:59 18:59 Intake Total 728 / 728 1186 / 1186 95 / 95 Output Total 1400 / 1400 900 / 900 Balance -672 / -672 286 / 286 95 / 95 Weight 67.5 kg Intake: IV 700 / 700 640 / 640 95 / 95 Diprivan 1000 mg/100 ml Inj 1, 100 / 100 290 / 290 95 / 95 000 mg In 100 ml @ 5 MCG/KG/MIN 2.904 mls/hr IV.CONT TITRATE PRN Rx#:[id number] Zosyn 4.5 GM Premix 4.5 gm In 100 / 100 100 / 100 100 ml @ 200 mls/hr IV.SIG Q6H [facility] Rx#:[id number] fentaNYL 10 mcg/mL Premix Drip 500 / 500 250 / 250 2,500 mcg In 250 ml @ 50 MCG/HR 5 mls/hr IV.SIG TITRATE PRN Rx #:[id number] Tube Feeding 546 / 546 Output: Urine 400 / 400 500 / 500 Stool 1000 / 1000 300 / 300 Chest Tube Drainage 0 / 0 100 / 100 Right Y Connected 0 / 0 100 / 100 Other: # Incontinent Voids 2 Date of Last Bowel Movement 01/11/18 01/11/18 01/11/18 Physical Exam: CONSTITUTIONAL/GENERAL: Obese female on mechanical ventilation via trach resting in bed in no apparent distress. TUBES/LINES/DRAINS: Tracheostomy, PIV's to bilat arms, bilateral soft wrist restraints, SCD's. Read catheter, rectal tube/bad with moderate amount of stool. Chest tube to right lung. NG tube. SKIN: No jaundice, rashes, or lesions. Ecchymoses on upper extremities. Skin temperature appropriate. Not diaphoretic. HEAD: Atraumatic. Normocephalic. EYES: Pupils equal and round and reactive. No scleral icterus. No injection or drainage. ENT: Unable to evaluate hearing, sedated. Nose without bleeding or purulent drainage. Moist oral mucosa. NECK: Trachea midline. Tracheostomy in place. CARDIOVASCULAR: Tachycardic with heart rate in the 110s. Regular rate without murmurs, gallops, or rubs. Peripheral pulses symmetric. RESPIRATORY/CHEST: Symmetric, unlabored respirations. Coarse bilaterally, right more than left. Chest tube x 2 to right/1 collection device with moderate amount of clear yellow serous fluid. GASTROINTESTINAL: Abdomen soft, obese, nondistended. Bowel sounds present. Tolerating ongoing tube feeds via NG tube. GENITOURINARY: Without palpable bladder distension. MUSCULOSKELETAL: Extremities without clubbing, cyanosis. Edema to bilateral upper extremities. No mottling or clubbing. NEUROLOGICAL: Sedated. Unresponsive to verbal or tactile stimuli. PSYCHIATRIC: Unable to evaluate, sedated. Diagnostic Tests Laboratory: Laboratory Results - last 72 hr 01/07/18 01/08/18 01/09/18 03:12 07:17 17:45 WBC RBC Hgb Hct MCV MCH MCHC RDW Plt Count MPV Prelim Diff (Auto) Neut % (Auto) Lymph % (Auto) [place] % (Auto) Eos % (Auto) Baso % (Auto) Neut # (Auto) Lymph # (Auto) [place] # (Auto) Eos # (Auto) Baso # (Auto) WBC Differential Seg Neuts % (Manual) Band Neuts % (Manual) Lymphocytes % (Manual) Monocytes % (Manual) Eosinophils % (Manual) Basophils % (Manual) Metamyelocytes % (Man) Myelocytes % (Man) Abs Neuts (Manual) Differential Comment Toxic Granulation Platelet Estimate Platelet Morphology RBC Morphology Sodium 148 H Potassium 3.4 L D Chloride 111 H Carbon Dioxide 28.6 Anion Gap 8 BUN 15 Creatinine 0.53 Estimated GFR Greater than 89 POC Glucose Random Glucose 113 H Calcium 8.0 L Phosphorus Magnesium Total Bilirubin AST ALT Alkaline Phosphatase Ammonia Total Protein Albumin Valproic Acid MTS Gel Crossmatch See Detail See Detail Bld Prod Order Comment 01/09/18 01/10/18 01/10/18 17:47 00:14 05:14 WBC RBC Hgb Hct MCV MCH MCHC RDW Plt Count MPV Prelim Diff (Auto) Neut % (Auto) Lymph % (Auto) [place] % (Auto) Eos % (Auto) Baso % (Auto) Neut # (Auto) Lymph # (Auto) [place] # (Auto) Eos # (Auto) Baso # (Auto) WBC Differential Seg Neuts % (Manual) Band Neuts % (Manual) Lymphocytes % (Manual) Monocytes % (Manual) Eosinophils % (Manual) Basophils % (Manual) Metamyelocytes % (Man) Myelocytes % (Man) Abs Neuts (Manual) Differential Comment Toxic Granulation Platelet Estimate Platelet Morphology RBC Morphology Sodium Potassium Chloride Carbon Dioxide Anion Gap BUN Creatinine Estimated GFR POC Glucose 119 H 99 96 Random Glucose Calcium Phosphorus Magnesium Total Bilirubin AST ALT Alkaline Phosphatase Ammonia Total Protein Albumin Valproic Acid MTS Gel Crossmatch Bld Prod Order Comment 01/10/18 01/10/18 01/10/18 05:40 05:40 11:47 WBC 10.9 RBC 3.25 L Hgb 10.2 L D Hct 30.2 L MCV 92.8 D MCH 31.3 MCHC 33.7 RDW 16.7 Plt Count 291 MPV 8.5 Prelim Diff (Auto) Slide review pending Neut % (Auto) 64.1 Lymph % (Auto) 18.6 [place] % (Auto) 9.8 H Eos % (Auto) 6.8 H Baso % (Auto) 0.7 Neut # (Auto) 7.0 Lymph # (Auto) 2.0 [place] # (Auto) 1.1 H Eos # (Auto) 0.7 H Baso # (Auto) 0.1 WBC Differential Manual diff final Seg Neuts % (Manual) 52 Band Neuts % (Manual) 15 H Lymphocytes % (Manual) 18 Monocytes % (Manual) 7 Eosinophils % (Manual) 4 Basophils % (Manual) 1 Metamyelocytes % (Man) 2 H Myelocytes % (Man) 1 H Abs Neuts (Manual) 7.6 Differential Comment . Toxic Granulation Platelet Estimate Normal Platelet Morphology Normal RBC Morphology Sodium 146 H Potassium 3.4 L Chloride 110 H Carbon Dioxide 26.7 Anion Gap 9 BUN 15 Creatinine 0.47 L Estimated GFR Greater than 89 POC Glucose 87 Random Glucose 107 H Calcium 8.0 L Phosphorus 3.3 Magnesium 1.8 Total Bilirubin 0.3 AST 23 ALT 13 Alkaline Phosphatase 86 Ammonia Total Protein 6.1 L Albumin 1.6 L Valproic Acid MTS Gel Crossmatch Bld Prod Order Comment 01/10/18 01/10/18 01/11/18 18:10 18:27 00:13 WBC RBC Hgb Hct MCV MCH MCHC RDW Plt Count MPV Prelim Diff (Auto) Neut % (Auto) Lymph % (Auto) [place] % (Auto) Eos % (Auto) Baso % (Auto) Neut # (Auto) Lymph # (Auto) [place] # (Auto) Eos # (Auto) Baso # (Auto) WBC Differential Seg Neuts % (Manual) Band Neuts % (Manual) Lymphocytes % (Manual) Monocytes % (Manual) Eosinophils % (Manual) Basophils % (Manual) Metamyelocytes % (Man) Myelocytes % (Man) Abs Neuts (Manual) Differential Comment Toxic Granulation Platelet Estimate Platelet Morphology RBC Morphology Sodium Potassium 5.0 D Chloride Carbon Dioxide Anion Gap BUN Creatinine Estimated GFR POC Glucose 78 92 Random Glucose Calcium Phosphorus Magnesium Total Bilirubin AST ALT Alkaline Phosphatase Ammonia Total Protein Albumin Valproic Acid MTS Gel Crossmatch Bld Prod Order Comment 01/11/18 01/11/1801/11/18 04:40 04:40 04:40 WBC 10.6 RBC 3.38 L Hgb 10.6 L Hct 31.0 L MCV 91.5 MCH 31.3 MCHC 34.2 RDW 15.9 Plt Count 354 MPV 8.3 Prelim Diff (Auto) Slide review pending Neut % (Auto) 65.2 Lymph % (Auto) 17.1 [place] % (Auto) 8.6 H Eos % (Auto) 8.6 H Baso % (Auto) 0.5 Neut # (Auto) 6.9 Lymph # (Auto) 1.8 [place] # (Auto) 0.9 Eos # (Auto) 0.9 H Baso # (Auto) 0.1 WBC Differential Manual diff final Seg Neuts % (Manual) 49 Band Neuts % (Manual) 21 H Lymphocytes % (Manual) 12 Monocytes % (Manual) 4 Eosinophils % (Manual) 8 H Basophils % (Manual) 1 Metamyelocytes % (Man) 4 H Myelocytes % (Man) 1 H Abs Neuts (Manual) 8.0 H Differential Comment . Toxic Granulation Platelet Estimate Normal Platelet Morphology Normal RBC Morphology Normal Sodium 143 Potassium 3.6 D Chloride 106 Carbon Dioxide 28.1 Anion Gap 9 BUN 15 Creatinine 0.40 L Estimated GFR Greater than 89 POC Glucose Random Glucose 108 H Calcium 8.2 L Phosphorus 4.4 D Magnesium 2.0 Total Bilirubin 0.3 AST 26 ALT 13 Alkaline Phosphatase 91 Ammonia 29 Total Protein 6.4 Albumin 1.8 L Valproic Acid MTS Gel Crossmatch Bld Prod Order Comment 01/11/18 01/11/18 01/11/18 12:17 17:54 22:59 WBC RBC Hgb Hct MCV MCH MCHC RDW Plt Count MPV Prelim Diff (Auto) Neut % (Auto) Lymph % (Auto) [place] % (Auto) Eos % (Auto) Baso % (Auto) Neut # (Auto) Lymph # (Auto) [place] # (Auto) Eos # (Auto) Baso # (Auto) WBC Differential Seg Neuts % (Manual) Band Neuts % (Manual) Lymphocytes % (Manual) Monocytes % (Manual) Eosinophils % (Manual) Basophils % (Manual) Metamyelocytes % (Man) Myelocytes % (Man) Abs Neuts (Manual) Differential Comment Toxic Granulation Platelet Estimate Platelet Morphology RBC Morphology Sodium Potassium Chloride Carbon Dioxide Anion Gap BUN Creatinine Estimated GFR POC Glucose 89 85 101 Random Glucose Calcium Phosphorus Magnesium Total Bilirubin AST ALT Alkaline Phosphatase Ammonia Total Protein Albumin Valproic Acid MTS Gel Crossmatch Bld Prod Order Comment 01/12/18 01/12/18 01/12/18 04:55 05:14 08:37 WBC 9.3 RBC 3.59 L Hgb 11.3 L Hct 33.9 L MCV 94.6 MCH 31.6 MCHC 33.4 RDW 15.9 Plt Count 381 MPV 9.0 Prelim Diff (Auto) Slide review pending Neut % (Auto) 55.3 Lymph % (Auto) 23.8 [place] % (Auto) 11.3 H Eos % (Auto) 8.9 H Baso % (Auto) 0.7 Neut # (Auto) 5.1 Lymph # (Auto) 2.2 [place] # (Auto) 1.0 H Eos # (Auto) 0.8 H Baso # (Auto) 0.1 WBC Differential Manual diff final Seg Neuts % (Manual) 42 Band Neuts % (Manual) 23 H Lymphocytes % (Manual) 14 Monocytes % (Manual) 6 Eosinophils % (Manual) 8 H Basophils % (Manual) 2 Metamyelocytes % (Man) 5 H Myelocytes % (Man) Abs Neuts (Manual) 6.5 Differential Comment . Toxic Granulation 2+ H Platelet Estimate Normal Platelet Morphology Enlarged H RBC Morphology Normal Sodium 142 Potassium 4.9 D Chloride 104 Carbon Dioxide 27.3 Anion Gap 11 BUN 15 Creatinine 0.46 L Estimated GFR Greater than 89 POC Glucose 95 Random Glucose 95 Calcium 8.4 L Phosphorus 5.5 H D Magnesium 1.8 Total Bilirubin 0.4 AST 32 ALT 15 Alkaline Phosphatase 108 Ammonia Total Protein 6.5 Albumin 1.7 L Valproic Acid 24 L MTS Gel Crossmatch Bld Prod Order Comment 01/12/18 11:42 WBC RBC Hgb Hct MCV MCH MCHC RDW Plt Count MPV Prelim Diff (Auto) Neut % (Auto) Lymph % (Auto) [place] % (Auto) Eos % (Auto) Baso % (Auto) Neut # (Auto) Lymph # (Auto) [place] # (Auto) Eos # (Auto) Baso # (Auto) WBC Differential Seg Neuts % (Manual) Band Neuts % (Manual) Lymphocytes % (Manual) Monocytes % (Manual) Eosinophils % (Manual) Basophils % (Manual) Metamyelocytes % (Man) Myelocytes % (Man) Abs Neuts (Manual) Differential Comment Toxic Granulation Platelet Estimate Platelet Morphology RBC Morphology Sodium Potassium Chloride Carbon Dioxide Anion Gap BUN Creatinine Estimated GFR POC Glucose 117 H Random Glucose Calcium Phosphorus Magnesium Total Bilirubin AST ALT Alkaline Phosphatase Ammonia Total Protein Albumin Valproic Acid MTS Gel Crossmatch Bld Prod Order Comment Result Diagrams: 01/12/18 08:37 01/12/18 05:14 Microbiology: Microbiology 01/10/18 01:30 Urine Culture - Final Catheterized Urine No growth in 48 hours 01/08/18 09:30 Acid Fast Bacilli Smear - Final Tissue - Other No acid fast bacilli seen 01/08/18 09:30 Gram Stain - Final Tissue - Other Wound Culture - Final No growth in 72 hours (aerobically and anaerobically) 12/19/17 11:30 Acid Fast Bacilli Smear - Final Bronchial Washings - Bronchial No acid fast bacilli seen Mycobacterial Culture - Preliminary No growth in 3 weeks Procedures: 12/17/2017: Endotracheal intubation 12/17/2017: OGT placement 12/17/2017: Femoral central line placement 12/17/2017: Right-sided chest tube placement x 2 12/17/2017: Right radial arterial line placement 12/17/2017: Read catheter placement 12/21/2017:Right-sided chest tube placed #3 12/26/2017: CT #1 discontinued 01/08/2018: Right thoracoscopic decortication, closure of bronchopleural fistula. Debridement and irrigation of the prior chest tube wounds 01/11/2018: Tracheostomy placement Assessment and Plan - Disease Oriented Problem List (1) Respiratory failure (2) Pneumonia (3) Septic shock - Symptom Scale (1) Pain 0-10 Scale: Unable to quantify Comment: History of chronic pain to back. Acute pain secondary to invasive interventions, bedbound due to critical illness. (2) Shortness of breath 0-10 Scale: Unable to quantify Comment: Currently intubated on mechanical ventilation. Pertinent Non-Medical Issues: Psychosocial: Patient was born and raised in [place], [place]. She has been to her , Luis, for approximately 20 years. She has 1 daughter, Margarita. She is a retired teacher. Spiritual: Hinduism bryson Legal: No advance directives completed. Ethical issues impacting care: No ethical issues identified. Important Contacts: Luis Woodruff, : [phone] Prognosis: Mrs. Woodruff is a 62-year-old female with multiple comorbidities and recent acute hospitalizations. Patient currently requiring mechanical ventilation, being treated for septic shock and bilateral aspiration pneumonias. Currently status post 3 chest tubes secondary to worsening emphysema. Has been evaluated by cardiothoracic surgery, poor surgical candidate at this time. Overall prognosis is guarded. Patient at a very high risk for further complications, continue decline and . Code Status: Full Code Plan: * CODE STATUS: Full code. Risks, benefits and limitations of CPR readdressed with patient's on 01/12. * MEDICAL DECISION-MAKER: Patient unable to participate in medical decision making given clinical condition -on vent support, sedated. Unclear at this time if patient will regain medical decision-making capacity. No advance directives completed. As per [place] statute, healthcare proxy decision-maker falls to patient's Luis Woodruff. He has accepted this role and is fully supported by their family. * GOALS OF CARE: acting as healthcare proxy decision-maker is electing to continue aggressive management to include full code. Short-term and long- term prognosis has been discussed in detail with patient's . reports that he is optimistic as he has seen some improvement in spite of prolonged hospitalization. * SYMPTOMS: = Pain: Acute on chronic. Patient with history of chronic back pain status post multiple surgical interventions/appliances in place. Following with pain doctor in [facility]. Currently on fentanyl drip, appears comfortable at the time of my visit. No other recommendations at this time. * Spiritual offered and declined. * Case discussed with bedside RN. * Ongoing emotional support and active listening provided. * Palliative care to continue to follow-up for emotional support and goals of care patient's clinical course continues to evolve. receptive to palliative care follow-ups. Time Spent Total Floor Time (mins): 32 (Total time to include review of medical records, physical exam, goals of care conversation with patient's , case discussion with bedside RN.) >50% Time in Counseling or Coordination of Care: Yes (Total visit time = 32 minutes; > 50% spent counseling/coordinating care) Attestation Attestation: To help prompt me to consider important information that might be impacting today's encounter and assessment, information from prior notes written by myself or my colleagues may have been "brought forward" into today's note. My signature on this note, however, is an attestation that I personally performed the exam, history, and/or decision-making noted today, and, unless otherwise indicated, the interactions with patient, family, and staff as well as the review of records all occurred today. I also attest that the listed assessment and stated plan reflect my best clinical judgment today based on the combination of historical information, prior notes, and today's exam/ interactions. When time spent is documented, it refers only to time spent today by the signer, or if indicated, combined time spent today by collaborating physician/nurse practitioner.
[2018-01-12] MEDS: QUEtiapine 25 MG Tablet PO SCH (21:02)
[2018-01-13] MEDS: Insulin NovoLIN Regular Correctional Sugar Inj SQ SCH ×4 (00:06→18:44)
[2018-01-13] MEDS: Propofol 1000 mg/100 ml Inj 1,000 MG/100 ML BOTTLE IV.CONT PRN ×4 (00:41→22:44)
[2018-01-13] MEDS: Oral Hygiene Kit OROPHARYNG SCH ×3 (04:19→18:05)
[2018-01-13] MEDS: Heparin - SQ 10,000 UNITS/ML Vial SQ SCH ×3 (06:26→22:00)
[2018-01-13] MEDS: fentaNYL 10 mcg/mL Premix Drip 2,500 MCG/250 ML BAG IV.SIG PRN ×2 (06:28→14:27)
[2018-01-13] MEDS: Potassium Chloride 25 MEQ Effervescent Tablet NG/OG SCH (08:15)
[2018-01-13] MEDS: Polyethylene Glycol 3350 17 GM Packet PO SCH ×2 (08:15→21:00)
[2018-01-13] MEDS: Chlorhexidine 0.12% Oral Kit 15 ML UDC OROPHARYNG SCH ×2 (08:16→20:00)
[2018-01-13] MEDS: Carboxymethylcellulose 0.5% Opth Drops 15 ML Bottle EACH EYE SCH ×2 (08:16→21:00)
[2018-01-13] MEDS: Senna/Docusate Sodium 8.6/50 MG Tablet PO SCH ×2 (08:16→21:00)
[2018-01-13] MEDS: Famotidine 20 MG Tablet PO SCH ×2 (08:16→21:00)
[2018-01-13] MEDS: Sodium Chloride 0.9% 2 ML Flush BID IV.FLUSH SCH ×2 (08:16→21:00)
[2018-01-13] MEDS: Collagenase Oint 30 GM Tube TOPICAL SCH (08:17)
[2018-01-13 08:28] LABS: Baso # (Auto) 0.2 th/mm3 (0.0-0.2); Baso % (Auto) 1.1 % (0.0-2.0); Eos # (Auto) 1.2 th/mm3 (0.0-0.4); Eos % (Auto) 8.7 % (0.0-4.0); Hematocrit 35.1 % (35.0-46.0); Hemoglobin 11.8 gm/dL (11.6-15.3); Lymph # (Auto) 3.3 th/mm3 (1.0-4.8); Mean Corpuscular HGB Conc 33.6 % (32.0-36.0); Mean Corpuscular Hemoglobin 31.9 pg (27.0-34.0); Mean Corpuscular Volume 94.8 fL (80.0-100.0); Mean Platelet Volume 9.4 fL (7.0-11.0); Mono # (Auto) 1.6 th/mm3 (0.0-0.9); Mono % (Auto) 11.3 % (0.0-8.0); Neut # (Auto) 7.7 th/mm3 (1.8-7.7); Neut % (Auto) 54.9 % (16.0-70.0); Platelet Count 356 th/mm3 (150-450); Red Cell Distribution Width 15.8 % (11.6-17.2); White Blood Count 13.9 th/mm3 (4.0-11.0)
[2018-01-13 09:00] LABS: Anion Gap 9 meq/L (5-15); Blood Urea Nitrogen 16 mg/dL (7-18); Calcium 8.7 mg/dL (8.5-10.1); Carbon Dioxide 25.8 meq/L (21.0-32.0); Chloride 104 meq/L (98-107); Glomerular Filtration Rate Greater Than 89 mL/min (>89); Glucose,Random 80 mg/dL (74-106); Magnesium 1.8 mg/dL (1.5-2.5); Phosphorus 5.2 mg/dL (2.5-4.9); Potassium 4.9 meq/L (3.5-5.1); Sodium 139 meq/L (136-145)
[2018-01-13 09:31] LABS: Eosinophils 7 % (0-4); Lymphocytes 18 % (9-44); Metamyelocytes 3 % (0-1); Monocytes 10 % (0-8); Myelocytes 7 % (0-0); Platelet Estimate Normal (Normal); Platelet Morphology Normal (Normal); Promyelocyte 1 % (0-0)
--- NOTE | 2018-01-13 13:27 | GIPROC ---
[facility] [address] [facility]. [facility], [address] EGD WITH PEG PROCEDURE REPORT EXAM DATE: 01/13/2018 PATIENT NAME: Iris Woodruff MR#: [id number] BIRTHDATE: 1955 ATTENDING: Brennan Barrientos MD ORDER #: [id number] LINEWORKER: Mckenzie Fonseca RN STATUS: inpatient INDICATIONS: The patient is a 62 yr old female here for an EGD with PEG due to placement of PEG PROCEDURE PERFORMED: EGD with PEG placement MEDICATIONS: Per Anesthesia and None. TOPICAL ANESTHETIC: none CONSENT: The patient understands the risks and benefits of the procedure and understands that these risks include, but are not limited to: sedation, allergic reaction, infection, perforation and/or bleeding. Alternative means of evaluation and treatment include, among others: physical exam, x-rays, and/or surgical intervention. The patient elects to proceed with this endoscopic procedure. medical equipment was checked for proper function. Hand hygiene and appropriate measures for infection prevention was taken. After the risks, benefits and alternatives of the procedure were thoroughly explained, Informed consent was verified, confirmed and timeout was successfully executed by the treatment team. The patient was anesthetized with topical anesthesia and the endoscope was introduced through the mouth and advanced to the second portion of the duodenum. The instrument was slowly withdrawn as the mucosa was fully examined. The upper, middle, and distal third of the esophagus were carefully inspected and no abnormalities were noted. The z-line was well seen at the GEJ. The endoscope was pushed into the fundus which was normal including a retroflexed view. The antrum, first and second part of the duodenum were unremarkable. Percutaneous endoscopic gastrostomy tube was placed using standard technique. The stomach was then inflated with air, and by a combination of transillumination and manual palpation, the site for the gastrostomy tube placement was selected and marked on the anterior abdominal wall. The skin of the anterior abdomen was surgically prepped and draped with sterile towels. Utilizing strict sterile technique, the selected site was then anesthetized with 1% xylocaine by injection into the skin and subcutaneous tissue. A 1 cm incision was made through the skin and subcutaneous tissue, and the needle/cannula assembly was then passed through the abdominal wall and through the anterior wall of the stomach, maintaining visualization with the endoscope. A snare device previously placed through the instrument channel was then opened and placed around the cannula, the needle was removed, and the insertion wire was passed through the cannula and into the stomach lumen. The snare was then loosened from the cannula, and repositioned to snare the insertion wire. The snare was then pulled up to the endoscope distal tip, and the scope was then withdrawn bringing with it the snare and insertion wire. The insertion wire was then released from the snare, and then loop-attached to the Bard 22 Fr gastrostomy tube. Using the "pull technique", the G-tube was then pulled into place by traction on the insertion wire at the abdominal wall end. The G-tube insertion site was then cleansed once again, and the external bolster was placed over the tube to secure it to the abdominal wall. A sterile dressing was then applied, and the procedure terminated. no abnormalities The gastroscope was then slowly withdrawn and removed. ADVERSE EVENT: There were no complications. IMPRESSIONS: 1. The upper, middle, and distal third of the esophagus were carefully inspected and no abnormalities were noted. The z-line was well seen at the GEJ. The endoscope was pushed into the fundus which was normal including a retroflexed view. The antrum, first and second part of the duodenum were unremarkable. 2. 22 F PEG tube placed successfully RECOMMENDATIONS: PEG recomendations: 1- NPO for 6 hours except for meds 2- Flush PEG tube every 6 hours with water and after each PEG feeding 3- May resume regular diet in the morning 4- May use Ensure or Boost etc. for PEG tube feeding REPEAT EXAM: procedure as needed Brennan Barrientos MD eSigned: Brennan Barrientos MD 01/13/2018 1:27 PM cc: PATIENT NAME: Iris Woodruff MR#: [id number]
--- NOTE | 2018-01-13 14:09 | P.PNCV ---
- Note Subjective/Hospital Course: pt now has 3 right sided chest tube #3 has 2-3 = air leak , #2 +1 all to 40cm suction pt now off pressors remains sedated on vent 55% fio2 +8 peep may need to re-eval for repeat ct scan in am pt will not tolerate one lung ventilation at this during any surgery will continue to monitor 12/23 pt now on 75% Fi02 peep down to 5 , no on flolan sub q emphysema with some improvement chest x 3 apical #3 +2 continuous air leak mid #2 + 1 air leak lower #1 no air leak all to 40 cm suction will monitor 12/26 Hemodynamically and clinically better One chest tube removed. 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 air leak at site all chest tube site area cleansed with chlorhexidine, iodoform gauze to old chest tube site vaseline gauze to other chest tubes / dry dressing applied / also # 2 chest tube had kink placed 2 tongue depressors along side of tube top prevent kinking and taped to chest pt still had +1-2 air leak in #3 chest tube 01/04 ct chest reviewed stable / improved, no air leak in chest tubes at present continue to monitor / no surgery indicated at present with: Improving pneumomediastinum, pneumopericardium and subcutaneous emphysema. Near complete resolution of previous right pneumothorax. 01/[address] Joseph and Dr Garces pt does have air leak when turned to left +2 , discussed with Dr Marquez/ covering for Dr Lynn will proceed with surgery on Thursday right thoracotomy, decortication, bleb resection / discussed with 01/07 pt on CPAP trials, still has + 2 air leak #3 marked chest tube for surgery on am 01/08 surgery Preoperative Diagnosis (1) Loculated pleural effusion (2) Bronchopleural fistula Postoperative Diagnosis: same Date of procedure: 01/08/18 Procedure: Right thoracoscopic decortication, closure of bronchopleural fistula Debridement and irrigation of the prior chest tube wounds (3 01/09/18 Intubated, sedated 01/10 on vent PRVC mode for trach today chest tube to 20cm suction, no air leak 01/11 s/p bedside trach, remains on PRVC mode and sedation grimaces to pain, opens eyes, not follows commands no air leak in chest tube, leave to suction for now recommend keeping chest tube in / until pt off vent and tolerating trach collar 01/13 sedated on vent / for bedside PEG tube today leave chest tube to suction until off vent Objective: Vital Signs - 24 hr 01/12/18 14:30 01/12/18 15:00 01/12/18 15:30 Temperature Pulse Rate 110 H 110 H 113 H Respiratory Rate 17 17 17 Blood Pressure 128/78 143/93 H 160/99 H Pulse Oximetry 100 99 100 01/12/18 15:35 01/12/18 15:39 01/12/18 16:00 Temperature 99.6 F Pulse Rate 113 H 119 H Respiratory Rate 17 17 20 Blood Pressure 159/95 H Pulse Oximetry 100 100 01/12/18 16:30 01/12/18 16:46 01/12/18 17:00 Temperature Pulse Rate 120 H 113 H 103 H Respiratory Rate 20 20 17 Blood Pressure 156/87 H 131/74 Pulse Oximetry 100 100 100 01/12/18 18:00 01/12/18 19:00 01/12/18 20:00 Temperature 98.1 F Pulse Rate 106 H 105 H 115 H Respiratory Rate 16 18 18 Blood Pressure 138/74 126/71 Pulse Oximetry 100 100 100 01/12/18 20:30 01/12/18 20:41 01/12/18 21:00 Temperature Pulse Rate 111 H 101 H 118 H Respiratory Rate 15 16 27 H Blood Pressure 116/66 143/78 H Pulse Oximetry 100 100 100 01/12/18 21:30 01/12/18 22:00 01/12/18 22:30 Temperature Pulse Rate 114 H 106 H 111 H Respiratory Rate 18 17 18 Blood Pressure 111/69 93/58 L 110/66 Pulse Oximetry 100 100 100 01/12/18 23:00 01/12/18 23:30 01/13/18 00:00 Temperature 99.5 F Pulse Rate 105 H 106 H 107 H Respiratory Rate 16 17 18 Blood Pressure 93/57 L 99/64 L 112/65 Pulse Oximetry 100 100 100 01/13/18 00:30 01/13/18 01:00 01/13/18 01:23 Temperature Pulse Rate 112 H 99 H 99 H Respiratory Rate 19 16 22 Blood Pressure 120/72 91/57 L Pulse Oximetry 100 99 01/13/18 01:24 01/13/18 01:30 01/13/18 02:00 Temperature Pulse Rate 98 H 97 H Respiratory Rate 22 16 16 Blood Pressure 114/58 L 106/60 Pulse Oximetry 99 98 98 01/13/18 02:30 01/13/18 03:00 01/13/18 03:30 Temperature Pulse Rate 95 H 93 H 102 H Respiratory Rate 17 16 16 Blood Pressure 102/67 98/60 L 122/72 Pulse Oximetry 99 100 100 01/13/18 04:00 01/13/18 04:30 01/13/18 04:36 Temperature 98.9 F Pulse Rate 101 H 102 H 104 H Respiratory Rate 16 17 16 Blood Pressure 112/63 112/63 Pulse Oximetry 100 100 01/13/18 04:37 01/13/18 05:00 01/13/18 05:30 Temperature Pulse Rate 103 H 110 H Respiratory Rate 16 15 17 Blood Pressure 111/64 117/74 Pulse Oximetry 100 100 100 01/13/18 06:00 01/13/18 06:30 01/13/18 07:00 Temperature Pulse Rate 119 H 116 H 104 H Respiratory Rate 21 18 16 Blood Pressure 139/74 124/71 110/68 Pulse Oximetry 100 100 100 01/13/18 07:30 01/13/18 08:00 01/13/18 08:21 Temperature Pulse Rate 105 H 104 H 104 H Respiratory Rate 17 16 16 Blood Pressure 118/66 108/72 Pulse Oximetry 100 100 01/13/18 08:22 01/13/18 08:30 01/13/18 09:00 Temperature Pulse Rate 112 H 122 H Respiratory Rate 16 17 18 Blood Pressure 142/69 H 136/86 Pulse Oximetry 100 100 100 01/13/18 09:30 01/13/18 10:00 01/13/18 10:30 Temperature Pulse Rate 127 H 123 H 124 H Respiratory Rate 27 H 21 20 Blood Pressure 138/91 H 133/81 113/78 Pulse Oximetry 100 100 100 01/13/18 11:00 01/13/18 11:30 01/13/18 12:00 Temperature Pulse Rate 122 H 120 H 122 H Respiratory Rate 19 20 19 Blood Pressure 119/74 121/77 130/79 Pulse Oximetry 100 100 100 01/13/18 12:01 01/13/18 12:30 Temperature Pulse Rate 119 H Respiratory Rate 18 20 Blood Pressure 117/75 Pulse Oximetry 100 100 GENERAL: sedated on vent SKIN: Warm and dry. HEAD: Normocephalic. EYES: No scleral icterus. No injection or drainage. NECK: Supple, trachea midline. No JVD or lymphadenopathy. CARDIOVASCULAR: sinus tach Regular rate and rhythm without murmurs, gallops, or rubs. RESPIRATORY: Breath sounds equal bilaterally. No accessory muscle use. right lateral chest tube x 2 / to 20cm suction, no air leak GASTROINTESTINAL: Abdomen soft, non-tender, nondistended. MUSCULOSKELETAL: No cyanosis, or edema. BACK: Nontender without obvious deformity. No CVA tenderness. Labs: Laboratory Results - last 12 hr 01/13/18 01/13/18 01/13/18 05:29 05:59 07:44 WBC 13.9 H RBC 3.70 L Hgb 11.8 Hct 35.1 MCV 94.8 MCH 31.9 MCHC 33.6 RDW 15.8 Plt Count 356 MPV 9.4 Prelim Diff (Auto) Slide review pending Neut % (Auto) 54.9 Lymph % (Auto) 24.0 [place] % (Auto) 11.3 H Eos % (Auto) 8.7 H Baso % (Auto) 1.1 Neut # (Auto) 7.7 Lymph # (Auto) 3.3 [place] # (Auto) 1.6 H Eos # (Auto) 1.2 H Baso # (Auto) 0.2 WBC Differential Manual diff final Seg Neuts % (Manual) 35 Band Neuts % (Manual) 15 H Lymphocytes % (Manual) 18 Monocytes % (Manual) 10 H Eosinophils % (Manual) 7 H Basophils % (Manual) 4 H Metamyelocytes % (Man) 3 H Myelocytes % (Man) 7 H Promyelocytes % (Man) 1 H Abs Neuts (Manual) 8.5 H Differential Comment . Platelet Estimate Normal Platelet Morphology Normal Sodium Potassium Chloride Carbon Dioxide Anion Gap BUN Creatinine Estimated GFR POC Glucose 68 107 Random Glucose Calcium Phosphorus Magnesium 01/13/18 01/13/18 07:44 13:03 WBC RBC Hgb Hct MCV MCH MCHC RDW Plt Count MPV Prelim Diff (Auto) Neut % (Auto) Lymph % (Auto) [place] % (Auto) Eos % (Auto) Baso % (Auto) Neut # (Auto) Lymph # (Auto) [place] # (Auto) Eos # (Auto) Baso # (Auto) WBC Differential Seg Neuts % (Manual) Band Neuts % (Manual) Lymphocytes % (Manual) Monocytes % (Manual) Eosinophils % (Manual) Basophils % (Manual) Metamyelocytes % (Man) Myelocytes % (Man) Promyelocytes % (Man) Abs Neuts (Manual) Differential Comment Platelet Estimate Platelet Morphology Sodium 139 Potassium 4.9 Chloride 104 Carbon Dioxide 25.8 Anion Gap 9 BUN 16 Creatinine 0.43 L Estimated GFR Greater than 89 POC Glucose 96 Random Glucose 80 Calcium 8.7 Phosphorus 5.2 H Magnesium 1.8 Result Diagrams: 01/13/18 07:44 01/13/18 07:44 - Plan (1) Respiratory failure Plan: on vent 35% / s/p trach leave chest tube in / keep to 20cm suction until weaned off vent (2) Pneumonia (1) Respiratory failure Qualifiers: Chronicity: acute Respiratory failure complication: hypoxia and hypercapnia Qualified Code(s): J96.01 - Acute respiratory failure with hypoxia; J96.02 - Acute respiratory failure with hypercapnia (2) Pneumonia Qualifiers: Pneumonia type: due to unspecified organism Laterality: bilateral Lung location: unspecified part of lung Qualified Code(s): J18.9 - Pneumonia, unspecified organism
[2018-01-13] MEDS: Metoprolol Inj 5 MG/5 ML Vial IV.PUSH PRN (14:56)
--- NOTE | 2018-01-13 15:36 | P.PNCC ---
Subjective Subjective Remarks/Hospital Course: This is a 62yF who was originally admitted on 11/23 with a diagnosis of colitis, found to have enterovirus. discharged on 12/11 at that time on PO vancomycin, but came back on 12/13 with altered mental status and hypoglycemia, again discharged on 12/15. She was mildly fatigued on 12/16 according to her and asked to wait another day before traveling back to her home in [place]. This morning, she was unarousable and her called 911. She was intubated upon arrival to the emergency department for agonal respirations. CXR demonstrates bilateral multifocal pneumonia. She is febrile, hypotensive. CVL placed in the ER and vasopressors initiated after 2L bolus crystalloid. CT chest/abd/pelvis demonstrates right pneumothorax, densely consolidated right lower lobe, bilateral pulmonary infiltrates, evidence of ongoing colitis. Patient continue to be unstable. Immediately after identifying ptx on CT scan, I emergently placed right chest tube with some improvements in hemodynamics, but ongoing distributive shock persists. I placed arterial line. No additional information available from the patient, ROS unobtainable. In discussion with the , she has not had any new complaints in the 48h she was home, and other than mild fatigue last night, no new complaints. She was able to walk to the bathroom without assistance yesterday. 12/18: shock remains. now on levophed, vasopressin, phenylephrine. second chest tube placed overnight for worsening SQ air. acidosis remains and is severe. 12/19: Afebrile. Remains on vasopressin drip only. On stress dose hydrocortisone. Evaluated by CT surgery. Not a candidate for intervention at the present time. Chest tube continues to leak. Epoprostenol added today 12/20: Afebrile. FiO2 has decreased and is currently 70%. Currently replacing potassium, phosphorus and magnesium. Recheck later this afternoon. Less chest tube leak today down to 1 chamber. 12/21: Overnight, worsening subcutaneous emphysema. A third chest tube placed by overnight clinical training specialist after discussion with cardiothoracic surgery. Currently hemodynamically stable. Replacing phosphorus today. To be evaluated by CT surgery today. 12/22: Remains sedated, orally intubated on mechanical ventilation. Persistent air leak and chest tube noted. 12/23: Remains sedated, orally intubated on mechanical ventilation. Air leak persists though slightly improved. PEEP at +5 FiO2 55%, inhaled Flolan continues. Central line replaced with right IJ triple-lumen catheter. 12/24: Remains sedated, orally intubated on mechanical ventilation. 1+ air leak from chest tube 3 noted. PEEP +5, FiO2 60%, inhaled Flolan continues. Decreasing subcutaneous emphysema noted. 12/25: Remains sedated, orally improved on mechanical ventilation. 1+ for leak from chest tube 2. PEEP +5, FiO2 50%. Starting to titrate inhaled Flolan down today. Initiating Lasix to mobilize fluid. 12/26: remains intubated. air leak continues from chest tube #3. drainage out of #1 and #2 are very serous. #1 was removed by myself today. all chest tube dressings changed by me today. repeat CXR pending. very volume overloaded. starting to diurese. off vasopressors. off pathway: still high fio2 requirements. 12/27: good diuresis overnight. very hypokalemic today and aggressively replacing. CXR unchanged. air leak unchanged. long discussion over long-term and short-term prognosis and plan of care with entire family today. all questions answered. 12/28: Continues to diurese. Remains on mechanical ventilation. Positive air leak in chest tube 3. 1 unit PRBCs transfused earlier for hemoglobin 6.9. 12/29: Remains on mechanical ventilation. Increasing subcutaneous emphysema noted. Air leak stopped and chest tube #2 and 3 currently. Flolan being titrated down. Chest x-ray shows appropriate positioning of 2 chest tubes with the more medial small right pneumothorax with significant subcutaneous emphysema bilaterally. Patient remains off pressors and is being diuresed to mobilize fluid. 12/30: volume removal continues. Cr still at baseline. fio2 down to 40% and off inhaled Flolan. discussed with Dr. Lynn: will need to wait at least until next week for VATS. Will need trach going forward: discussed with family and they are agreeable. Dr. Lynn asked that both chest tubes remain in place. air leak persists. remains intubated and sedated. 12/31: Sedated, orally intubated on mechanical ventilation. On 40% FiO2 PEEP + 5. Positive air leak in chest tube [address] surgery planning for VATS next week, will need tracheostomy coordinated as well. 01/01: Remains sedated, orally intubated on mechanical ventilation. PEEP +5, FiO2 35%. Being diuresed. 01/02: Sedated, orally intubated on mechanical ventilation. PEEP +5, FiO2 35%. Intermittent air leak in chest tube 3. Being diuresed 01/03: persistent air leak. hypoxia improving. discussed case with Dr. Lynn- he would like pre-operative CT chest for surgical planning. we also discussed timing of tracheostomy: it would be easier surgically to have ett in place to place double-lumen ett, so he would prefer to keep ett until after operation, and then proceed with tracheostomy. tentatively VATS planned for Friday 01/05. 01/04: No events over the night. Patient remains sedated and intubated, sedation achieved with fentanyl and propofol. T-max of 100.2 over the last 24 hours. I/O 3770/3130. Chest tubes remain on suction. 01/05: T-max 99.3. Currently afebrile. Difficulty with weaning from ventilator noted. VATS currently on hold per CT surgery. 01/06: Resting comfortably in bed in no acute distress. Plan for thoracotomy rested on Thursday night. Currently on CPAP trial. Potassium being replaced. 01/07: Resting complaint bed in no acute distress. Plan for thoracotomy tomorrow a.m. 730. Currently on CPAP trial. Transfuse when he PRBC today. Hemoglobin currently 9.6 potassium 3.9. 01/08: Today, status post right thoracoscopic decortication, closure of bronchopleural fistula with debridement and irrigation of the prior chest tube wounds with placement of 2 #32 [place] chest tubes by cardiothoracic surgery patellar procedure well. EBL 250. Adequate urine output. Appears stable. 01/09: T-max 100.2. Currently tachycardic. Receiving 2 units PRBCs. Potassium being replaced. Agitated on the ventilator. 01/10: Twitching on the ventilator/tremor. Temperature max 100.2. 120 cc output from chest tube overnight. Still not arousable/following commands on the ventilator. Likely tracheostomy Subjective 01/11: T-max 100.5. Status post #8 [facility] practice tracheostomy today. Order PEG tube for tomorrow. Arousable but not following commands. Thrashes back and forth. 01/12: T-max 100.4. Plan to initiate CPAP trials today. Patient does not follow commands, but does track movement. IV antibiotics discontinued yesterday Zosyn and micafungin. The patient continues on p.o. Vanco. Case discussed with CT surgery plan for continuation chest tubes until placed on trach collar. 01/13: No acute events overnight. Patient underwent PEG placement this afternoon. Remains n.p.o. 6 hours post PEG. During sedation vacation the patient becomes extremely agitated and tachycardic. Right chest tube continues on 20 cm of water suction. Objective Vital Signs / I&O: Vital Signs 01/12/18 15:35 01/12/18 15:39 01/12/18 16:00 Temperature 99.6 F Pulse Rate 113 H 119 H Respiratory Rate 17 17 20 Blood Pressure 159/95 H Pulse Oximetry 100 100 01/12/18 16:30 01/12/18 16:46 01/12/18 17:00 Temperature Pulse Rate 120 H 113 H 103 H Respiratory Rate 20 20 17 Blood Pressure 156/87 H 131/74 Pulse Oximetry 100 100 100 01/12/18 18:00 01/12/18 19:00 01/12/18 20:00 Temperature 98.1 F Pulse Rate 106 H 105 H 115 H Respiratory Rate 16 18 18 Blood Pressure 138/74 126/71 Pulse Oximetry 100 100 100 01/12/18 20:30 01/12/18 20:41 01/12/18 21:00 Temperature Pulse Rate 111 H 101 H 118 H Respiratory Rate 15 16 27 H Blood Pressure 116/66 143/78 H Pulse Oximetry 100 100 100 01/12/18 21:30 01/12/18 22:00 01/12/18 22:30 Temperature Pulse Rate 114 H 106 H 111 H Respiratory Rate 18 17 18 Blood Pressure 111/69 93/58 L 110/66 Pulse Oximetry 100 100 100 01/12/18 23:00 01/12/18 23:30 01/13/18 00:00 Temperature 99.5 F Pulse Rate 105 H 106 H 107 H Respiratory Rate 16 17 18 Blood Pressure 93/57 L 99/64 L 112/65 Pulse Oximetry 100 100 100 01/13/18 00:30 01/13/18 01:00 01/13/18 01:23 Temperature Pulse Rate 112 H 99 H 99 H Respiratory Rate 19 16 22 Blood Pressure 120/72 91/57 L Pulse Oximetry 100 99 11/21/18 01:24 01/13/18 01:30 01/13/18 02:00 Temperature Pulse Rate 98 H 97 H Respiratory Rate 22 16 16 Blood Pressure 114/58 L 106/60 Pulse Oximetry 99 98 98 01/13/18 02:30 01/13/18 03:00 01/13/18 03:30 Temperature Pulse Rate 95 H 93 H 102 H Respiratory Rate 17 16 16 Blood Pressure 102/67 98/60 L 122/72 Pulse Oximetry 99 100 100 01/13/18 04:00 01/13/18 04:30 01/13/18 04:36 Temperature 98.9 F Pulse Rate 101 H 102 H 104 H Respiratory Rate 16 17 16 Blood Pressure 112/63 112/63 Pulse Oximetry 100 100 01/13/18 04:37 01/13/18 05:00 01/13/18 05:30 Temperature Pulse Rate 103 H 110 H Respiratory Rate 16 15 17 Blood Pressure 111/64 117/74 Pulse Oximetry 100 100 100 01/13/18 06:00 01/13/18 06:30 01/13/18 07:00 Temperature Pulse Rate 119 H 116 H 104 H Respiratory Rate 21 18 16 Blood Pressure 139/74 124/71 110/68 Pulse Oximetry 100 100 100 01/13/18 07:30 01/13/18 08:00 01/13/18 08:21 Temperature Pulse Rate 105 H 104 H 104 H Respiratory Rate 17 16 16 Blood Pressure 118/66 108/72 Pulse Oximetry 100 100 01/13/18 08:22 01/13/18 08:30 01/13/18 09:00 Temperature Pulse Rate 112 H 122 H Respiratory Rate 16 17 18 Blood Pressure 142/69 H 136/86 Pulse Oximetry 100 100 100 01/13/18 09:30 01/13/18 10:00 01/13/18 10:30 Temperature Pulse Rate 127 H 123 H 124 H Respiratory Rate 27 H 21 20 Blood Pressure 138/91 H 133/81 113/78 Pulse Oximetry 100 100 100 01/13/18 11:00 01/13/18 11:30 01/13/18 12:00 Temperature Pulse Rate 122 H 120 H 122 H Respiratory Rate 19 20 19 Blood Pressure 119/74 121/77 130/79 Pulse Oximetry 100 100 100 01/13/18 12:01 01/13/18 12:30 01/13/18 13:54 Temperature Pulse Rate 119 H 118 H Respiratory Rate 18 20 16 Blood Pressure 117/75 125/77 Pulse Oximetry 100 100 100 01/13/18 13:57 01/13/18 14:00 01/13/18 14:03 Temperature 98.7 F Pulse Rate 118 H 119 H 120 H Respiratory Rate 16 16 16 Blood Pressure 124/77 126/71 120/82 Pulse Oximetry 100 100 100 01/13/18 14:06 01/13/18 14:09 01/13/18 14:15 Temperature Pulse Rate 122 H 122 H 128 H Respiratory Rate 16 17 25 H Blood Pressure 124/86 132/84 168/104 H Pulse Oximetry 100 100 97 01/13/18 14:18 01/13/18 14:21 01/13/18 14:24 Temperature Pulse Rate 127 H 129 H 129 H Respiratory Rate 23 21 21 Blood Pressure 141/70 H 128/81 131/80 Pulse Oximetry 87 L 99 99 01/13/18 14:27 01/13/18 14:30 01/13/18 14:33 Temperature Pulse Rate 129 H 131 H 132 H Respiratory Rate 23 20 23 Blood Pressure 131/84 139/78 136/81 Pulse Oximetry 99 97 98 01/13/18 14:36 01/13/18 14:39 01/13/18 14:42 Temperature Pulse Rate 131 H 130 H 131 H Respiratory Rate 22 22 20 Blood Pressure 140/76 147/82 H 136/83 Pulse Oximetry 98 98 98 01/13/18 14:45 01/13/18 14:48 01/13/18 14:52 Temperature Pulse Rate 130 H 128 H 127 H Respiratory Rate 21 19 17 Blood Pressure 129/78 141/81 H 143/84 H Pulse Oximetry 99 99 100 01/13/18 14:54 01/13/18 14:57 01/13/18 15:00 Temperature Pulse Rate 126 H 115 H 103 H Respiratory Rate 18 17 13 Blood Pressure 135/79 132/80 132/81 Pulse Oximetry 100 100 100 01/13/18 15:03 01/13/18 15:06 01/13/18 15:09 Temperature Pulse Rate 101 H 101 H 101 H Respiratory Rate 9 L 15 16 Blood Pressure 132/81 129/81 134/81 Pulse Oximetry 100 100 100 Intake & Output 01/12/18 01/13/18 01/13/18 18:59 06:59 18:59 Intake Total 1206 / 1206 903 / 903 350 / 350 Output Total 1570 / 1570 1400 / 1400 Balance -364 / -364 -497 / -497 350 / 350 Weight 68.1 kg Intake: IV 435 / 435 550 / 550 350 / 350 Diprivan 1000 mg/100 ml Inj 1, 185 / 185 300 / 300 100 / 100 000 mg In 100 ml @ 5 MCG/KG/MIN 2.904 mls/hr IV.CONT TITRATE PRN Rx#:[id number] fentaNYL 10 mcg/mL Premix Drip 250 / 250 250 / 250 250 / 250 2,500 mcg In 250 ml @ 50 MCG/HR 5 mls/hr IV.SIG TITRATE PRN Rx #:[id number] Tube Feeding 571 / 571 353 / 353 Tube Irrigant 200 / 200 Output: Urine 950 / 950 800 / 800 Stool 600 / 600 600 / 600 Chest Tube Drainage 20 / 20 0 / 0 Right Y Connected / 20 0 / 0 Other: Date of Last Bowel Movement 01/11/18 01/12/18 01/13/18 Result Diagrams: 01/13/18 07:44 01/13/18 07:44 Objective Remarks: GENERAL: Middle-aged lady, intubated and sedated, chronically ill-appearing HEENT: Pupils are equal and reactive, sclerae are anicteric, status post tracheostomy on 01/11 NECK: Supple, no rigidity, no neck vein distention, no carotid bruit tracheostomy site without bleeding. CHEST: Coarse breath sounds bilateral, no wheezes, currently no subcu emphysema. 1 dual right-sided chest tubes on suction, -190 cc past 24 hours no air leak noted CARDIOVASCULAR: Regular heart sounds, no murmurs appreciated ABDOMEN: Soft, nontender, nondistended, bowel sounds present, no hepatomegaly or splenomegaly appreciated MUSCULOSKELETAL: Extremities are warm and well perfused, peripheral pulses are present, 2+ pitting edema NEUROLOGICAL: Sedated and intubated, spontaneous eye opening to voice stimuli and does not follow commands, withdraws to pain. Pupils are equal and reactive , no gaze deviation Assessment and Plan - Assessment and Plan Plan: Neuro/Psych: Acute metabolic encephalopathy Possible seizure disorder Currently on fentany/ propofol drips for sedation/analgesia while intubated. Dexmedetomidine discontinued Daily sedation vacation. Goal RASS -2 She was started on anticonvulsants on her initial admission 11/23. Valproic acid 500 mg 3 times daily. Recheck valproic acid level subtherapeutic Head CT 12/17- for acute disease EEG - Diffuse slowing consistent with a moderate diffuse encephalopathy. No epileptiform activity. Repeat 01/10 Acetaminophen 650 by tube every 6 hours as needed fever Continue quetiapine 25 mg daily/home medication Holding tizanidine 4 mg daily Respiratory: Postop day #4 Right thoracoscopic decortication, closure of bronchopleural fistula, debridement and irrigation of the prior chest tube wounds and placement of #2 32 [place] chest tubes Acute hypoxic and hypercarbic respiratory failure- persistent Acute severe bilateral multifocal healthcare associated pneumonia Possible aspiration pneumonia Spontaneous right-sided tension pneumothorax Subcutaneous Emphysema CT surgery/Dr. Marquez following. CT thorax overnight 12/12 revealed significant 3.7 cm moderate right pneumothorax without tension. Pneumopericardium and significant subcutaneous emphysema. Vent bundle and bronchodilators PRVC mode 450/14/35% PEEP of 5 Patient is synchronized with the ventilator, no auto PEEP, Pip 27 Epoprostanol added 12/19, removed 12/29. Albuterol/ipratropium aerosols every 4 hours with albuterol aerosols every 2 hours as needed dyspnea Wean FiO2 for goal SPO2 greater than 90% Daily CXR Cardiovascular: Septic shock- resolved Elevated troponin Type II NSTEMI secondary to demand ischemia Hyperlipidemia Holding lisinopril 30 mg daily/home medication. For dyslipidemia resume pravastatin 40 mg daily when clinically indicated Continue hydrocortisone wean Furosemide 40 mg IV daily diuresis. Renal: Acute kidney injury (resolved) Secondary to shock, off pressors Frequent urine output monitoring Daily creatinine KVO IV fluid. Furosemide 40 mg IV daily Strict I/Os FEN/GI: Acute protein calorie malnutritionsevere Lactic acidosis- resolved Severe colitis Enterovirus colitis Hyperammonemia Currently on lactulose 30 cc twice daily Tube feeding with vital 1.5 goal 55 cc now. Metoclopramide 5 mg 3 times daily. Starting today 01/12 post tracheostomy ICU electrolyte protocol Daily BMP, magnesium, phosphorus Lactulose/polythene glycol twice daily Holding dicyclomine 20 mg 3 times daily 01/13 status post PEG tube placementpatient to remain n.p.o. for 6 hours with exception of meds Resume tube feeds in a.m. Heme/ID: C. difficile colitis Enterovirus colitis Septic shock Healthcare associated multifocal pneumonia Possible gram-positive cocci bacteremia Early empyema 1 unit PRBCs transfused on 12/28 for hemoglobin 6.9, recheck CBC and transfuse to keep hemoglobin above 8 g% Transfuse 1 unit PRBCs 01/07.. Transfuse 2 units PRBCs 01/09 Vancomycin p.o. with pharmacy dosing C. difficile continue Discontinue 01/11 piperacillin/tazobactam and micafungin Bronchoscopy 12/19 with Klebsiella Pleural fluid 12/19 with Klebsiella's/Karla Pleural fluid 12/17 -g Karla albicans/glabrata Klebsiella, lactobacillus 12/17 -sputum -Klebsiella 12/17 blood-strep viridians/coag negative staph Infectious disease consulted and following. IV antibiotics micafungin and Zosyn discontinued 01/11. P.O. vancomycin continued Endocrine: Acute hypoglycemia- resolving. Sliding scale insulin Accu-Cheks every 6 hours to maintain euglycemia Prophylaxis: GI Prophylaxis Famotidine DVT Prophylaxis -- SCDs Subcu heparin Lines: 12/17 femoral triple-lumen catheter discontinued 12/23 12/17 right radial arterial line discontinued 12/21 12/17 right 28 [place] chest tube to -40 cm suction: removed 12/26 12/17 right 32 [place] chest tube to -40 cm suction removed 01/08 12/19 -right #32 [place] chest tube to -40 cm suction removed 01/08 Right IJ cordis with dual-lumen 01/08 removed 01/11. Continue with dual chest tube on right side placed 01/08 Level 2 follow-up
--- NOTE | 2018-01-13 18:49 | P.PNADD ---
Addendum to Inpatient Note Additional information: pt seen around 1800 full note to follow
[2018-01-13] MEDS: QUEtiapine 25 MG Tablet PO SCH (21:00)
--- NOTE | 2018-01-13 22:30 | P.PNID ---
Subjective Remarks: on vent afebrile off abx but WBC going up Antibiotics: vanco PO Lines: Lines ok Past Medical History: reviewed Allergies/Adverse Reactions: Allergies No Known Allergies Allergy (Verified 12/13/17 08:04) Objective Vital Signs 01/12/18 22:30 01/12/18 23:00 01/12/18 23:30 Temperature Pulse Rate 111 H 105 H 106 H Respiratory Rate 18 16 17 Blood Pressure 110/66 93/57 L 99/64 L Pulse Oximetry 100 100 100 01/13/18 00:00 01/13/18 00:30 01/13/18 01:00 Temperature 99.5 F Pulse Rate 107 H 112 H 99 H Respiratory Rate 18 19 16 Blood Pressure 112/65 120/72 91/57 L Pulse Oximetry 100 100 99 01/13/18 01:23 01/13/18 01:24 01/13/18 01:30 Temperature Pulse Rate 99 H 98 H Respiratory Rate 22 22 16 Blood Pressure 114/58 L Pulse Oximetry 99 98 01/13/18 02:00 01/13/18 02:30 01/13/18 03:00 Temperature Pulse Rate 97 H 95 H 93 H Respiratory Rate 16 17 16 Blood Pressure 106/60 102/67 98/60 L Pulse Oximetry 98 99 100 01/13/18 03:30 01/13/18 04:00 01/13/18 04:30 Temperature 98.9 F Pulse Rate 102 H 101 H 102 H Respiratory Rate 16 16 17 Blood Pressure 122/72 112/63 112/63 Pulse Oximetry 100 100 100 01/13/18 04:36 01/13/18 04:37 01/13/18 05:00 Temperature Pulse Rate 104 H 103 H Respiratory Rate 16 16 15 Blood Pressure 111/64 Pulse Oximetry 100 100 01/13/18 05:30 01/13/18 06:00 01/13/18 06:30 Temperature Pulse Rate 110 H 119 H 116 H Respiratory Rate 17 21 18 Blood Pressure 117/74 139/74 124/71 Pulse Oximetry 100 100 100 01/13/18 07:00 01/13/18 07:30 01/13/18 08:00 Temperature Pulse Rate 104 H 105 H 104 H Respiratory Rate 16 17 16 Blood Pressure 110/68 118/66 108/72 Pulse Oximetry 100 100 100 01/13/18 08:21 01/13/18 08:22 01/13/18 08:30 Temperature Pulse Rate 104 H 112 H Respiratory Rate 16 16 17 Blood Pressure 142/69 H Pulse Oximetry 100 100 01/13/18 09:00 01/13/18 09:30 01/13/18 10:00 Temperature Pulse Rate 122 H 127 H 123 H Respiratory Rate 18 27 H 21 Blood Pressure 136/86 138/91 H 133/81 Pulse Oximetry 100 100 100 01/13/18 10:30 01/13/18 11:00 01/13/18 11:30 Temperature Pulse Rate 124 H 122 H 120 H Respiratory Rate 20 19 20 Blood Pressure 113/78 119/74 121/77 Pulse Oximetry 100 100 100 01/13/18 12:00 01/13/18 12:01 01/13/18 12:30 Temperature Pulse Rate 122 H 119 H Respiratory Rate 19 18 20 Blood Pressure 130/79 117/75 Pulse Oximetry 100 100 100 01/13/18 13:54 01/13/18 13:57 01/13/18 14:00 Temperature 98.7 F Pulse Rate 118 H 118 H 119 H Respiratory Rate 16 16 16 Blood Pressure 125/77 124/77 126/71 Pulse Oximetry 100 100 100 01/13/18 14:03 01/13/18 14:06 01/13/18 14:09 Temperature Pulse Rate 120 H 122 H 122 H Respiratory Rate 16 16 17 Blood Pressure 120/82 124/86 132/84 Pulse Oximetry 100 100 100 01/13/18 14:15 01/13/18 14:18 01/13/18 14:21 Temperature Pulse Rate 128 H 127 H 129 H Respiratory Rate 25 H 23 21 Blood Pressure 168/104 H 141/70 H 128/81 Pulse Oximetry 97 87 L 99 01/13/18 14:24 01/13/18 14:27 01/13/18 14:30 Temperature Pulse Rate 129 H 129 H 131 H Respiratory Rate 21 23 20 Blood Pressure 131/80 131/84 139/78 Pulse Oximetry 99 99 97 01/13/18 14:33 01/13/18 14:36 01/13/18 14:39 Temperature Pulse Rate 132 H 131 H 130 H Respiratory Rate 23 22 22 Blood Pressure 136/81 140/76 147/82 H Pulse Oximetry 98 98 98 01/13/18 14:42 01/13/18 14:45 01/13/18 14:48 Temperature Pulse Rate 131 H 130 H 128 H Respiratory Rate 20 21 19 Blood Pressure 136/83 129/78 141/81 H Pulse Oximetry 98 99 99 01/13/18 14:52 01/13/18 14:54 01/13/18 14:57 Temperature Pulse Rate 127 H 126 H 115 H Respiratory Rate 17 18 17 Blood Pressure 143/84 H 135/79 132/80 Pulse Oximetry 100 100 100 01/13/18 15:00 01/13/18 15:03 01/13/18 15:06 Temperature Pulse Rate 103 H 101 H 101 H Respiratory Rate 13 9 L 15 Blood Pressure 132/81 132/81 129/81 Pulse Oximetry 100 100 100 01/13/18 15:09 01/13/18 16:00 01/13/18 16:33 Temperature Pulse Rate 101 H 102 H 104 H Respiratory Rate 16 16 Blood Pressure 134/81 Pulse Oximetry 100 01/13/18 16:34 01/13/18 16:39 01/13/18 16:42 Temperature Pulse Rate 111 H 113 H Respiratory Rate 16 27 H 21 Blood Pressure 138/88 129/80 Pulse Oximetry 100 100 100 01/13/18 16:45 01/13/18 16:48 01/13/18 16:51 Temperature Pulse Rate 115 H 115 H 116 H Respiratory Rate 24 23 24 Blood Pressure 136/85 135/84 146/84 H Pulse Oximetry 100 100 100 01/13/18 16:54 01/13/18 16:57 01/13/18 17:00 Temperature Pulse Rate 117 H 116 H 114 H Respiratory Rate 22 21 16 Blood Pressure 143/87 H 133/84 126/79 Pulse Oximetry 100 100 100 01/13/18 17:03 01/13/18 17:06 01/13/18 17:09 Temperature Pulse Rate 113 H 113 H 111 H Respiratory Rate 13 16 4 L Blood Pressure 127/78 129/78 120/75 Pulse Oximetry 100 100 100 01/13/18 17:15 01/13/18 17:18 01/13/18 17:21 Temperature Pulse Rate 109 H 110 H 109 H Respiratory Rate 2 L 1 L 1 L Blood Pressure 122/72 123/67 126/73 Pulse Oximetry 100 100 100 01/13/18 17:24 01/13/18 17:27 01/13/18 17:30 Temperature Pulse Rate 108 H 108 H 109 H Respiratory Rate 0 L 0 L 1 L Blood Pressure 123/71 123/69 111/69 Pulse Oximetry 100 100 100 01/13/18 17:33 01/13/18 17:36 01/13/18 17:39 Temperature Pulse Rate 107 H 107 H 105 H Respiratory Rate 1 L 0 L 0 L Blood Pressure 119/68 112/67 115/65 Pulse Oximetry 100 100 100 01/13/18 17:42 01/13/18 17:45 01/13/18 17:48 Temperature Pulse Rate 105 H 104 H 103 H Respiratory Rate 0 L 0 L 0 L Blood Pressure 107/68 98/69 L 100/73 Pulse Oximetry 100 100 100 01/13/18 17:51 01/13/18 17:53 01/13/18 17:54 Temperature 99.0 F Pulse Rate 102 H 102 H 102 H Respiratory Rate 0 L 0 L 0 L Blood Pressure 104/70 106/68 Pulse Oximetry 100 100 99 01/13/18 17:57 01/13/18 18:00 01/13/18 20:56 Temperature Pulse Rate 102 H 101 H 95 H Respiratory Rate 0 L 0 L 19 Blood Pressure 115/59 L 101/59 L Pulse Oximetry 99 99 98 Intake & Output 01/13/18 01/13/18 01/14/18 06:59 18:59 06:59 Intake Total 903 / 903 650 / 650 Output Total 1400 / 1400 1700 / 1700 Balance -497 / -497 -1050 / -1050 Weight 68.1 kg Intake: IV 550 / 550 350 / 350 Diprivan 1000 mg/100 ml Inj 1, 300 / 300 100 / 100 000 mg In 100 ml @ 5 MCG/KG/MIN 2.904 mls/hr IV.CONT TITRATE PRN Rx#:[id number] fentaNYL 10 mcg/mL Premix Drip 250 / 250 250 / 250 2,500 mcg In 250 ml @ 50 MCG/HR 5 mls/hr IV.SIG TITRATE PRN Rx #:[id number] Oral 0 / 0 Tube Feeding 353 / 353 0 / 0 Anesthesia Amount 300 / 300 Output: Urine 800 / 800 1200 / 1200 Stool 600 / 600 500 / 500 Chest Tube Drainage 0 / 0 Right Y Connected 0 / 0 Other: Date of Last Bowel Movement 01/12/18 01/13/18 01/10/18 01:30 Catheterized Urine Urine Culture - Final No growth in 48 hours 01/08/18 09:30 Tissue - Other Acid Fast Bacilli Smear - Final No acid fast bacilli seen 01/08/18 09:30 Tissue - Other Mycobacterial Culture - Pending 01/08/18 09:30 Tissue - Other Gram Stain - Final 01/08/18 09:30 Tissue - Other Wound Culture - Final No growth in 72 hours (aerobically and anaerobically ) Lab - Hematology Results 01/12/18 01/13/18 08:37 07:44 WBC 9.3 13.9 H RBC 3.59 L 3.70 L Hgb 11.3 L 11.8 Hct 33.9 L 35.1 MCV 94.6 94.8 MCH 31.6 31.9 MCHC 33.4 33.6 RDW 15.9 15.8 Plt Count 381 356 MPV 9.0 9.4 Prelim Diff (Auto) Slide review pending Slide review pending Neut % (Auto) 55.3 54.9 Lymph % (Auto) 23.8 24.0 [place] % (Auto) 11.3 H 11.3 H Eos % (Auto) 8.9 H 8.7 H Baso % (Auto) 0.7 1.1 Neut # (Auto) 5.1 7.7 Lymph # (Auto) 2.2 3.3 [place] # (Auto) 1.0 H 1.6 H Eos # (Auto) 0.8 H 1.2 H Baso # (Auto) 0.1 0.2 WBC Differential Manual diff final Manual diff final Seg Neuts % (Manual) 42 35 Band Neuts % (Manual) 23 H 15 H Lymphocytes % (Manual) 14 18 Monocytes % (Manual) 6 10 H Eosinophils % (Manual) 8 H 7 H Basophils % (Manual) 2 4 H Metamyelocytes % (Man) 5 H 3 H Myelocytes % (Man) 7 H Promyelocytes % (Man) 1 H Abs Neuts (Manual) 6.5 8.5 H Differential Comment . . Toxic Granulation 2+ H Platelet Estimate Normal Normal Platelet Morphology Enlarged H Normal RBC Morphology Normal Lab - Chemistry Results 01/11/18 01/12/18 01/12/18 22:59 04:55 05:14 Sodium 142 Potassium 4.9 D Chloride 104 Carbon Dioxide 27.3 Anion Gap 11 BUN 15 Creatinine 0.46 L Estimated GFR Greater than 89 POC Glucose 101 95 Random Glucose 95 Calcium 8.4 L Phosphorus 5.5 H D Magnesium 1.8 Total Bilirubin 0.4 AST 32 ALT 15 Alkaline Phosphatase 108 Total Protein 6.5 Albumin 1.7 L 01/12/18 01/12/18 01/12/18 11:42 17:11 23:57 Sodium Potassium Chloride Carbon Dioxide Anion Gap BUN Creatinine Estimated GFR POC Glucose 117 H 99 99 Random Glucose Calcium Phosphorus Magnesium Total Bilirubin AST ALT Alkaline Phosphatase Total Protein Albumin 01/13/18 01/13/18 01/13/18 05:29 05:59 07:44 Sodium 139 Potassium 4.9 Chloride 104 Carbon Dioxide 25.8 Anion Gap 9 BUN 16 Creatinine 0.43 L Estimated GFR Greater than 89 POC Glucose 68 107 Random Glucose 80 Calcium 8.7 Phosphorus 5.2 H Magnesium 1.8 Total Bilirubin AST ALT Alkaline Phosphatase Total Protein Albumin 01/13/18 01/13/18 13:03 18:40 Sodium Potassium Chloride Carbon Dioxide Anion Gap BUN Creatinine Estimated GFR POC Glucose 96 89 Random Glucose Calcium Phosphorus Magnesium Total Bilirubin AST ALT Alkaline Phosphatase Total Protein Albumin Imaging: ITS Impressions Head CT 12/17/17 08:02 CONCLUSION: 1. 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 2. Otherwise negative. . Abdomen/Pelvis CT 12/17/17 10:45 CONCLUSION: 1. Moderate diffuse colonic wall thickening exaggerated by lack of colonic distention. This may be due to low-protein state/edema. However, differential considerations include infectious and inflammatory colitis. 2. Moderate-sized right hydropneumothorax with airspace disease in the lung bases as described on chest CT. 3. Additional ancillary findings, as above. Chest CT 01/03/18 11:56 CONCLUSION: 1. Consolidation at both lung bases has improved. Cavitary lesions on the right are slightly larger as measured above. 2. Improving pneumomediastinum, pneumopericardium and subcutaneous emphysema. Near complete resolution of previous right pneumothorax. 2 right chest tubes present. Trace pleural fluid present. 3. Patchy airspace disease remains in the lungs probably with some fibrotic changes well. 4. Endotracheal tube and nasogastric tube in good position. Chest X-Ray 01/12/18 06:00 CONCLUSION: 1. Right IJ central venous catheter no longer seen. 2. No significant interval change in patchy bilateral lung opacity. 3. Right-sided chest tubes remain in place. No evidence of pneumothorax. Physical Exam: GENERAL: int'd on mech vent'n SKIN: Warm and dry. No rash EYES: No scleral icterus. No injection or drainage. ENT: No nasal bleeding or discharge. Mucous membranes pink and moist. NECK: Trachea midline. No JVD. CARDIOVASCULAR: Regular rate and rhythm RESPIRATORY: No accessory muscle use. scattered rhonchi to auscultation. CT x R side GASTROINTESTINAL: Abdomen soft, non-tender, distended. Hepatic and splenic margins not palpable. MUSCULOSKELETAL: Extremities without clubbing, cyanosis, less edema. No obvious deformities. NEUROLOGICAL: not much responsive PSYCHIATRIC: unable to assess Assessment and Plan - Plan Sepsis (fever, leucocytosis) ongoing possible new. Coag neg staph likely pseudobacteremia Strep viridans: ? related to empyema torie Strep. 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
[2018-01-14] MEDS: Insulin NovoLIN Regular Correctional Sugar Inj SQ SCH ×4 (00:39→18:01)
[2018-01-14] MEDS: Oral Hygiene Kit OROPHARYNG SCH ×4 (00:40→16:50)
[2018-01-14 02:13] LABS: Bacteria,Urine Many /hpf; Bilirubin,Urine Negative (Negative); Clarity,Urine Hazy (Clear); Color,Urine Yellow (Yellw/Straw); Glucose,Urine (UA) Negative (Negative); Leukocyte Esterase,Urine Negative (Negative); Mucus,Urine Few /lpf (Occasional); Nitrite,Urine Negative (Negative)
[2018-01-14] MEDS: Dexmedetomidine Inj 200 MCG in Sodium Chlor 0.9% Inj 48 ML IV.CONT PRN ×5 (03:03→21:54)
[2018-01-14] MEDS: Heparin - SQ 10,000 UNITS/ML Vial SQ SCH ×3 (05:40→21:55)
--- NOTE | 2018-01-14 05:41 | XR ---
EXAM DATE: 01/14/2018 5:29 AM EST AGE/SEX: 62 years / Female INDICATIONS: Shortness of breath. CLINICAL DATA: This is the patient's subsequent encounter. Patient reports that signs and symptoms h ave been present for 1 month and indicates a pain score of Nonresponsive. MEDICAL/SURGICAL HISTORY: . Sepsis. Hypertension. Smoker. Hyperlipidemia. . Chest tube, right . [place] [facility] [place]12/[place]. . FINDINGS: Single AP view the chest. Tracheostomy tube and right-sided chest tubes remain in place. Nasogastric tube is no longer seen. Mild patchy bilateral pulmonary opacity unchanged. Cardiomediastinal silhouet te unchanged. No evidence of pneumothorax. CONCLUSION: 1. Nasogastric tube no longer seen. 2. No significant interval change in mild bilateral pulmonary opacity. Electronically signed by: Jerry Fonseca MD 01/14/2018 5:40 AM EST
[2018-01-14 05:51] LABS: Baso # (Auto) 0.1 th/mm3 (0.0-0.2); Baso % (Auto) 0.5 % (0.0-2.0); Eos # (Auto) 0.4 th/mm3 (0.0-0.4); Eos % (Auto) 3.7 % (0.0-4.0); Hematocrit 31.1 % (35.0-46.0); Hemoglobin 10.1 gm/dL (11.6-15.3); Lymph # (Auto) 2.2 th/mm3 (1.0-4.8); Lymph % (Auto) 18.7 % (9.0-44.0); Mean Corpuscular HGB Conc 32.4 % (32.0-36.0); Mean Corpuscular Hemoglobin 30.9 pg (27.0-34.0); Mean Corpuscular Volume 95.3 fL (80.0-100.0); Mean Platelet Volume 8.8 fL (7.0-11.0); Mono % (Auto) 8.8 % (0.0-8.0); Neut # (Auto) 7.9 th/mm3 (1.8-7.7); Neut % (Auto) 68.3 % (16.0-70.0); Platelet Count 414 th/mm3 (150-450); Red Blood Count 3.27 mil/mm3 (4.00-5.30); Red Cell Distribution Width 14.7 % (11.6-17.2); White Blood Count 11.6 th/mm3 (4.0-11.0)
[2018-01-14 06:20] LABS: Anion Gap 8 meq/L (5-15); Blood Urea Nitrogen 15 mg/dL (7-18); Calcium 9.1 mg/dL (8.5-10.1); Carbon Dioxide 26.9 meq/L (21.0-32.0); Chloride 105 meq/L (98-107); Glomerular Filtration Rate Greater Than 89 mL/min (>89); Glucose,Random 105 mg/dL (74-106); Magnesium 1.6 mg/dL (1.5-2.5); Phosphorus 4.7 mg/dL (2.5-4.9); Potassium 3.9 meq/L (3.5-5.1); Prealbumin 18 mg/dL (20-40); Sodium 140 meq/L (136-145)
[2018-01-14 08:36] LABS: Eosinophils 2 % (0-4); Lymphocytes 11 % (9-44); Monocytes 12 % (0-8); Myelocytes 1 % (0-0); Promyelocyte 1 % (0-0)
[2018-01-14 08:37] LABS: Platelet Estimate Normal (Normal); Platelet Morphology Clumped (Normal)
[2018-01-14] MEDS: Famotidine 20 MG Tablet PO SCH ×2 (08:52→20:06)
[2018-01-14] MEDS: Chlorhexidine 0.12% Oral Kit 15 ML UDC OROPHARYNG SCH ×2 (08:52→20:06)
[2018-01-14] MEDS: Senna/Docusate Sodium 8.6/50 MG Tablet PO SCH ×2 (08:52→20:06)
[2018-01-14] MEDS: Carboxymethylcellulose 0.5% Opth Drops 15 ML Bottle EACH EYE SCH ×2 (08:52→20:07)
[2018-01-14] MEDS: Collagenase Oint 30 GM Tube TOPICAL SCH (08:52)
[2018-01-14] MEDS: Potassium Chloride 25 MEQ Effervescent Tablet NG/OG SCH (08:53)
[2018-01-14] MEDS: Polyethylene Glycol 3350 17 GM Packet PO SCH (08:53)
[2018-01-14] MEDS: Sodium Chloride 0.9% 2 ML Flush BID IV.FLUSH SCH ×2 (08:53→20:06)
[2018-01-14] MEDS ORDERED: Mag Sulf 1 gm/100 ml Premix 100 ML IV.SIG ONE (13:40)
--- NOTE | 2018-01-14 15:03 | P.PNCC ---
Subjective Subjective Remarks/Hospital Course: This is a 62yF who was originally admitted on 11/23 with a diagnosis of colitis, found to have enterovirus. discharged on 12/11 at that time on PO vancomycin, but came back on 12/13 with altered mental status and hypoglycemia, again discharged on 12/15. She was mildly fatigued on 12/16 according to her and asked to wait another day before traveling back to her home in [place]. This morning, she was unarousable and her called 911. She was intubated upon arrival to the emergency department for agonal respirations. CXR demonstrates bilateral multifocal pneumonia. She is febrile, hypotensive. CVL placed in the ER and vasopressors initiated after 2L bolus crystalloid. CT chest/abd/pelvis demonstrates right pneumothorax, densely consolidated right lower lobe, bilateral pulmonary infiltrates, evidence of ongoing colitis. Patient continue to be unstable. Immediately after identifying ptx on CT scan, I emergently placed right chest tube with some improvements in hemodynamics, but ongoing distributive shock persists. I placed arterial line. No additional information available from the patient, ROS unobtainable. In discussion with the , she has not had any new complaints in the 48h she was home, and other than mild fatigue last night, no new complaints. She was able to walk to the bathroom without assistance yesterday. 12/18: shock remains. now on levophed, vasopressin, phenylephrine. second chest tube placed overnight for worsening SQ air. acidosis remains and is severe. 12/19: Afebrile. Remains on vasopressin drip only. On stress dose hydrocortisone. Evaluated by CT surgery. Not a candidate for intervention at the present time. Chest tube continues to leak. Epoprostenol added today 12/20: Afebrile. FiO2 has decreased and is currently 70%. Currently replacing potassium, phosphorus and magnesium. Recheck later this afternoon. Less chest tube leak today down to 1 chamber. 12/21: Overnight, worsening subcutaneous emphysema. A third chest tube placed by overnight lung splitter after discussion with cardiothoracic surgery. Currently hemodynamically stable. Replacing phosphorus today. To be evaluated by CT surgery today. 12/22: Remains sedated, orally intubated on mechanical ventilation. Persistent air leak and chest tube noted. 12/23: Remains sedated, orally intubated on mechanical ventilation. Air leak persists though slightly improved. PEEP at +5 FiO2 55%, inhaled Flolan continues. Central line replaced with right IJ triple-lumen catheter. 12/24: Remains sedated, orally intubated on mechanical ventilation. 1+ air leak from chest tube 3 noted. PEEP +5, FiO2 60%, inhaled Flolan continues. Decreasing subcutaneous emphysema noted. 12/25: Remains sedated, orally improved on mechanical ventilation. 1+ for leak from chest tube 2. PEEP +5, FiO2 50%. Starting to titrate inhaled Flolan down today. Initiating Lasix to mobilize fluid. 12/26: remains intubated. air leak continues from chest tube #3. drainage out of #1 and #2 are very serous. #1 was removed by myself today. all chest tube dressings changed by me today. repeat CXR pending. very volume overloaded. starting to diurese. off vasopressors. off pathway: still high fio2 requirements. 12/27: good diuresis overnight. very hypokalemic today and aggressively replacing. CXR unchanged. air leak unchanged. long discussion over long-term and short-term prognosis and plan of care with entire family today. all questions answered. 12/28: Continues to diurese. Remains on mechanical ventilation. Positive air leak in chest tube 3. 1 unit PRBCs transfused earlier for hemoglobin 6.9. 12/29: Remains on mechanical ventilation. Increasing subcutaneous emphysema noted. Air leak stopped and chest tube #2 and 3 currently. Flolan being titrated down. Chest x-ray shows appropriate positioning of 2 chest tubes with the more medial small right pneumothorax with significant subcutaneous emphysema bilaterally. Patient remains off pressors and is being diuresed to mobilize fluid. 12/30: volume removal continues. Cr still at baseline. fio2 down to 40% and off inhaled Flolan. discussed with Dr. Lynn: will need to wait at least until next week for VATS. Will need trach going forward: discussed with family and they are agreeable. Dr. Lynn asked that both chest tubes remain in place. air leak persists. remains intubated and sedated. 12/31: Sedated, orally intubated on mechanical ventilation. On 40% FiO2 PEEP + 5. Positive air leak in chest tube [address] surgery planning for VATS next week, will need tracheostomy coordinated as well. 01/01: Remains sedated, orally intubated on mechanical ventilation. PEEP +5, FiO2 35%. Being diuresed. 01/02: Sedated, orally intubated on mechanical ventilation. PEEP +5, FiO2 35%. Intermittent air leak in chest tube 3. Being diuresed 01/03: persistent air leak. hypoxia improving. discussed case with Dr. Lynn- he would like pre-operative CT chest for surgical planning. we also discussed timing of tracheostomy: it would be easier surgically to have ett in place to place double-lumen ett, so he would prefer to keep ett until after operation, and then proceed with tracheostomy. tentatively VATS planned for Friday 01/05. 01/04: No events over the night. Patient remains sedated and intubated, sedation achieved with fentanyl and propofol. T-max of 100.2 over the last 24 hours. I/O 3770/3130. Chest tubes remain on suction. 01/05: T-max 99.3. Currently afebrile. Difficulty with weaning from ventilator noted. VATS currently on hold per CT surgery. 01/06: Resting comfortably in bed in no acute distress. Plan for thoracotomy rested on Thursday night. Currently on CPAP trial. Potassium being replaced. 01/07: Resting complaint bed in no acute distress. Plan for thoracotomy tomorrow a.m. 730. Currently on CPAP trial. Transfuse when he PRBC today. Hemoglobin currently 9.6 potassium 3.9. 01/08: Today, status post right thoracoscopic decortication, closure of bronchopleural fistula with debridement and irrigation of the prior chest tube wounds with placement of 2 #32 Nepalese chest tubes by cardiothoracic surgery patellar procedure well. EBL 250. Adequate urine output. Appears stable. 01/09: T-max 100.2. Currently tachycardic. Receiving 2 units PRBCs. Potassium being replaced. Agitated on the ventilator. 01/10: Twitching on the ventilator/tremor. Temperature max 100.2. 120 cc output from chest tube overnight. Still not arousable/following commands on the ventilator. Likely tracheostomy Subjective 01/11: T-max 100.5. Status post #8 [facility] practice tracheostomy today. Order PEG tube for tomorrow. Arousable but not following commands. Thrashes back and forth. 01/12: T-max 100.4. Plan to initiate CPAP trials today. Patient does not follow commands, but does track movement. IV antibiotics discontinued yesterday Zosyn and micafungin. The patient continues on p.o. Vanco. Case discussed with CT surgery plan for continuation chest tubes until placed on trach collar. 01/13: No acute events overnight. Patient underwent PEG placement this afternoon. Remains n.p.o. 6 hours post PEG. During sedation vacation the patient becomes extremely agitated and tachycardic. Right chest tube continues on 20 cm of water suction. 01/14: Sedation vacation underway. Patient noted to have spontaneous eye opening and spontaneous movement of lower extremities but not responding to any commands and no visual tracking. EEG has been ordered. Neurology has been consulted. Noted ammonia level less than 10 this a.m. propofol and fentanyl sedation has been discontinued since yesterday. The patient will remain on Precedex to maintain ventilator synchrony but currently undergoing sedation vacation for accurate neurological assessment. The patient has been initiated on CPAP trials. Objective Vital Signs / I&O: Vital Signs 01/13/18 14:52 01/13/18 14:54 01/13/18 14:57 Temperature Pulse Rate 127 H 126 H 115 H Respiratory Rate 17 18 17 Blood Pressure 143/84 H 135/79 132/80 Pulse Oximetry 100 100 100 01/13/18 15:00 01/13/18 15:03 01/13/18 15:06 Temperature Pulse Rate 103 H 101 H 101 H Respiratory Rate 13 9 L 15 Blood Pressure 132/81 132/81 129/81 Pulse Oximetry 100 100 100 01/13/18 15:09 01/13/18 16:00 01/13/18 16:33 Temperature Pulse Rate 101 H 102 H 104 H Respiratory Rate 16 16 Blood Pressure 134/81 Pulse Oximetry 100 01/13/18 16:34 01/13/18 16:39 01/13/18 16:42 Temperature Pulse Rate 111 H 113 H Respiratory Rate 16 27 H 21 Blood Pressure 138/88 129/80 Pulse Oximetry 100 100 100 01/13/18 16:45 01/13/18 16:48 01/13/18 16:51 Temperature Pulse Rate 115 H 115 H 116 H Respiratory Rate 24 23 24 Blood Pressure 136/85 135/84 146/84 H Pulse Oximetry 100 100 100 01/13/18 16:54 01/13/18 16:57 01/13/18 17:00 Temperature Pulse Rate 117 H 116 H 114 H Respiratory Rate 22 21 16 Blood Pressure 143/87 H 133/84 126/79 Pulse Oximetry 100 100 100 01/13/18 17:03 01/13/18 17:06 01/13/18 17:09 Temperature Pulse Rate 113 H 113 H 111 H Respiratory Rate 13 16 4 L Blood Pressure 127/78 129/78 120/75 Pulse Oximetry 100 100 100 01/13/18 17:15 01/13/18 17:18 01/13/18 17:21 Temperature Pulse Rate 109 H 110 H 109 H Respiratory Rate 2 L 1 L 1 L Blood Pressure 122/72 123/67 126/73 Pulse Oximetry 100 100 100 01/13/18 17:24 01/13/18 17:27 01/13/18 17:30 Temperature Pulse Rate 108 H 108 H 109 H Respiratory Rate 0 L 0 L 1 L Blood Pressure 123/71 123/69 111/69 Pulse Oximetry 100 100 100 01/13/18 17:33 01/13/18 17:36 01/13/18 17:39 Temperature Pulse Rate 107 H 107 H 105 H Respiratory Rate 1 L 0 L 0 L Blood Pressure 119/68 112/67 115/65 Pulse Oximetry 100 100 100 01/13/18 17:42 01/13/18 17:45 01/13/18 17:48 Temperature Pulse Rate 105 H 104 H 103 H Respiratory Rate 0 L 0 L 0 L Blood Pressure 107/68 98/69 L 100/73 Pulse Oximetry 100 100 100 01/13/18 17:51 01/13/18 17:53 01/13/18 17:54 Temperature 99.0 F Pulse Rate 102 H 102 H 102 H Respiratory Rate 0 L 0 L 0 L Blood Pressure 104/70 106/68 Pulse Oximetry 100 100 99 01/13/18 17:57 01/13/18 18:00 01/13/18 19:00 Temperature Pulse Rate 102 H 101 H 99 H Respiratory Rate 0 L 0 L 16 Blood Pressure 115/59 L 101/59 L 115/61 Pulse Oximetry 99 99 100 01/13/18 20:00 01/13/18 20:56 01/13/18 21:00 Temperature 99.7 F H Pulse Rate 109 H 95 H 97 H Respiratory Rate 16 19 18 Blood Pressure 127/69 91/57 L Pulse Oximetry 99 98 98 11/21/18 22:00 01/13/18 23:00 01/14/18 00:00 Temperature 99.1 F Pulse Rate 87 85 85 Respiratory Rate 19 16 17 Blood Pressure 87/55 L 99/62 L 96/59 L Pulse Oximetry 95 97 96 01/14/18 01:00 01/14/18 01:37 01/14/18 01:38 Temperature Pulse Rate 83 89 Respiratory Rate 21 20 20 Blood Pressure 111/60 Pulse Oximetry 97 98 01/14/18 02:00 01/14/18 03:00 01/14/18 04:00 Temperature 99.3 F Pulse Rate 81 96 H 93 H Respiratory Rate 20 26 H 21 Blood Pressure 104/62 130/64 128/72 Pulse Oximetry 97 99 99 01/14/18 04:50 01/14/18 04:51 01/14/18 05:00 Temperature Pulse Rate 104 H 98 H Respiratory Rate 20 20 24 Blood Pressure 123/72 Pulse Oximetry 100 99 01/14/18 06:00 01/14/18 08:00 01/14/18 08:08 Temperature 98.1 F Pulse Rate 81 97 H 96 H Respiratory Rate 20 23 21 Blood Pressure 97/54 L 144/75 H Pulse Oximetry 98 100 100 01/14/18 10:00 01/14/18 11:10 01/14/18 12:00 Temperature 99 F Pulse Rate 98 H 98 H 104 H Respiratory Rate 32 H 29 H Blood Pressure 127/72 Pulse Oximetry 96 97 01/14/18 14:00 Temperature Pulse Rate 103 H Respiratory Rate Blood Pressure Pulse Oximetry Intake & Output 01/13/18 01/14/18 01/14/18 18:59 06:59 18:59 Intake Total 650 / 650 150 / 150 225 / 225 Output Total 1700 / 1700 1770 / 1770 Balance -1050 / -1050 -1620 / -1620 225 / 225 Weight 66 kg Intake: IV 350 / 350 150 / 150 225 / 225 Precedex Inj 200 MCG In NS Inj 50 / 50 100 / 100 48 ML @ 0.2 MCG/KG/HR 3.48 mls/ hr IV.CONT TITRATE PRN Rx#: [id number] Diprivan 1000 mg/100 ml Inj 1, 100 / 100 100 / 100 000 mg In 100 ml @ 5 MCG/KG/MIN 2.904 mls/hr IV.CONT TITRATE PRN Rx#:[id number] fentaNYL 10 mcg/mL Premix Drip 250 / 250 125 / 125 2,500 mcg In 250 ml @ 50 MCG/HR 5 mls/hr IV.SIG TITRATE PRN Rx #:[id number] Oral 0 / 0 0 / 0 Tube Feeding 0 / 0 0 / 0 Anesthesia Amount 300 / 300 Output: Urine 1200 / 1200 Stool 500 / 500 100 / 100 Urine Amount (Catheter) 1650 / 1650 Female External 700 / 700 Straight 950 / 950 Chest Tube Drainage Right Y Connected Other: Date of Last Bowel Movement 01/13/18 01/14/18 01/14/18 Result Diagrams: 01/14/18 05:23 01/14/18 05:23 Other Results: Laboratory Results WBC 11.6 th/mm3 (4.0-11.0) H 01/14/18 05:23 RBC 3.27 mil/mm3 (4.00-5.30) L 01/14/18 05:23 Hgb 10.1 gm/dL (11.6-15.3) L 01/14/18 05:23 Hct 31.1 % (35.0-46.0) L 01/14/18 05:23 MCV 95.3 fL (80.0-100.0) 01/14/18 05:23 MCH 30.9 pg (27.0-34.0) 01/14/18 05:23 MCHC 32.4 % (32.0-36.0) 01/14/18 05:23 RDW 14.7 % (11.6-17.2) 01/14/18 05:23 Plt Count 414 th/mm3 (150-450) 01/14/18 05:23 MPV 8.8 fL (7.0-11.0) 01/14/18 05:23 Prelim Diff (Auto) Slide review pending 01/14/18 05:23 Neut % (Auto) 68.3 % (16.0-70.0) 01/14/18 05:23 Lymph % (Auto) 18.7 % (9.0-44.0) 01/14/18 05:23 [place] % (Auto) 8.8 % (0.0-8.0) H 01/14/18 05:23 Eos % (Auto) 3.7 % (0.0-4.0) 01/14/18 05:23 Baso % (Auto) 0.5 % (0.0-2.0) 01/14/18 05:23 Neut # (Auto) 7.9 th/mm3 (1.8-7.7) H 01/14/18 05:23 Lymph # (Auto) 2.2 th/mm3 (1.0-4.8) 01/14/18 05:23 [place] # (Auto) 1.0 th/mm3 (0.0-0.9) H 01/14/18 05:23 Eos # (Auto) 0.4 th/mm3 (0.0-0.4) 01/14/18 05:23 Baso # (Auto) 0.1 th/mm3 (0.0-0.2) 01/14/18 05:23 WBC Differential Manual diff final 01/14/18 05:23 Diff Scan Auto diff confirmed 12/28/17 21:00 Seg Neuts % (Manual) 59 % (16-70) 01/14/18 05:23 Band Neuts % (Manual) 13 % (0-6) H 01/14/18 05:23 Lymphocytes % (Manual) 11 % (9-44) 01/14/18 05:23 Monocytes % (Manual) 12 % (0-8) H 01/14/18 05:23 Eosinophils % (Manual) 2 % (0-4) 01/14/18 05:23 Basophils % (Manual) 1 % (0-2) 01/14/18 05:23 Metamyelocytes % (Man) 3 % (0-1) H 01/13/18 07:44 Myelocytes % (Man) 1 % (0-0) H 01/14/18 05:23 Promyelocytes % (Man) 1 % (0-0) H 01/14/18 05:23 Abs Neuts (Manual) 8.6 th/mm3 (1.8-7.7) H 01/14/18 05:23 Nucleated RBCs/100 WBC 1 /100 WBC (0-0) H 12/21/17 04:40 Differential Comment . 01/14/18 05:23 Toxic Granulation 2+ (None) H 01/12/18 08:37 Toxic Vacuolation Present (None) H 12/23/17 05:10 Dohle Bodies Present (None) H 12/21/17 04:40 Platelet Estimate Normal (Normal) 01/14/18 05:23 Platelet Morphology Clumped (Normal) H 01/14/18 05:23 RBC Morphology Normal (Normal) 01/12/18 08:37 Stomatocytes 1+ (None) H 12/28/17 21:00 Haptoglobin 375 mg/dL (30-200) H 12/17/17 11:35 PT 10.4 sec (9.8-11.6) 01/08/18 05:37 INR 1.0 Ratio 01/08/18 05:37 APTT 32.9 sec (24.3-30.1) H 12/22/17 12:14 Puncture Site Right radial 12/31/17 06:02 Patient Temperature 98.6 12/31/17 06:02 O2 Saturation 90 % (90-100) 12/31/17 06:02 ABG pH 7.38 (7.380-7.420) 12/31/17 06:02 ABG pCO2 60 mmHg (38-42) H* 12/31/17 06:02 ABG pO2 65 mmHG (61-120) 12/31/17 06:02 ABG HCO3 35 mmol/L (22-26) H 12/31/17 06:02 ABG O2 Content 10.4 Vol % (12.0-20.0) L 12/31/17 06:02 ABG Base Excess 9.4 mmol/L (-2-2) H 12/31/17 06:02 ABG Methemoglobin 1.8 % (0-2) 12/31/17 06:02 [place] Test Present 12/31/17 06:02 Hemoglobin 8.2 G/DL (12.0-16.0) L 12/31/17 06:02 Carboxyhemoglobin 1.2 % (0-4) 12/31/17 06:02 O2 Delivery Device Ventilator 12/31/17 06:02 Vent Setting Prvc/ ac 12/31/17 06:02 Inspired O2 40 % 12/31/17 06:02 Critical Value Yes 12/31/17 06:02 Sodium 140 meq/L (136-145) 01/14/18 05:23 Potassium 3.9 meq/L (3.5-5.1) D 01/14/18 05:23 Chloride 105 meq/L (98-107) 01/14/18 05:23 Carbon Dioxide 26.9 meq/L (21.0-32.0) 01/14/18 05:23 Anion Gap 8 meq/L (5-15) 01/14/18 05:23 BUN 15 mg/dL (7-18) 01/14/18 05:23 Creatinine 0.40 mg/dL (0.50-1.00) L 01/14/18 05:23 Estimated GFR Greater than 89 mL/min (>89) 01/14/18 05:23 POC Glucose 115 mg/dl (68-110) H 01/14/18 11:24 Random Glucose 105 mg/dL (74-106) 01/14/18 05:23 Osmolality 304 mosm/kg (275-295) H 12/17/17 11:15 Lactic Acid 2.3 mmol/L (0.4-2.0) H 12/27/17 00:00 Calcium 9.1 mg/dL (8.5-10.1) 01/14/18 05:23 Prot Corrected Calcium 7.9 mg/dL (8.5-10.1) L 01/01/18 05:25 Phosphorus 4.7 mg/dL (2.5-4.9) 01/14/18 05:23 Magnesium 1.6 mg/dL (1.5-2.5) 01/14/18 05:23 Total Bilirubin 0.4 mg/dL (0.2-1.0) 01/12/18 05:14 GGT 7 U/L (5-55) 12/17/17 15:41 AST 32 U/L (15-37) 01/12/18 05:14 ALT 15 U/L (10-53) 01/12/18 05:14 Alkaline Phosphatase 108 U/L (45-117) 01/12/18 05:14 Ammonia Less than 10 mcmol/L (11-32) L 01/14/18 05:23 Lactate Dehydrogenase 480 U/L (84-246) H 12/17/17 11:15 Total Creatine Kinase 93 U/L (26-192) 12/22/17 06:21 CK-MB (CK-2) 3.2 ng/mL (0.5-3.6) 12/19/17 04:47 CK-MB (CK-2) % 1.2 % (0.0-4.0) 12/19/17 04:47 Troponin I 0.02 ng/mL (0.02-0.05) D 12/22/17 06:21 B-Natriuretic Peptide 215 pg/mL (0-100) H 12/19/17 04:47 Total Protein 6.5 g/dL (6.4-8.2) 01/12/18 05:14 Albumin 1.7 g/dL (3.4-5.0) L 01/12/18 05:14 Prealbumin 18 mg/dL (20-40) L 01/14/18 05:23 Procalcitonin 38.52 ng/mL (0.00-0.08) H 12/17/17 11:15 TSH 0.402 uIU/mL (0.358-3.740) 12/17/17 08:10 Urine Color Yellow (Yellw/Straw) 01/14/18 00:10 Urine Clarity Hazy (Clear) H 01/14/18 00:10 Urine pH 6.0 (5.0-8.5) 01/14/18 00:10 Ur Specific [place] 1.010 (1.002-1.035) 01/14/18 00:10 Urine Protein Negative mg/dL (Neg-Trace) 01/14/18 00:10 Urine Glucose (UA) Negative mg/dL (Negative) 01/14/18 00:10 Urine Ketones Negative mg/dL (Negative) 01/14/18 00:10 Urine Occult Blood Negative (Negative) 01/14/18 00:10 Urine Nitrate Negative (Negative) 01/14/18 00:10 Urine Bilirubin Negative (Negative) 01/14/18 00:10 Urine Urobilinogen Less than 2 mg/dL (Less than 2) 01/14/18 00:10 Ur Leukocyte Esterase Negative (Negative) 01/14/18 00:10 Urine RBC Less than 1 /hpf (0-3) 01/14/18 00:10 Urine WBC 18 /hpf (0-5) H 01/14/18 00:10 Ur Squamous Epith Cells 1 /hpf (0-5) 12/17/17 08:55 Amorphous Sediment Few /hpf (None) H 12/17/17 08:55 Urine Bacteria Many /hpf (None) H 01/14/18 00:10 Hyaline Casts 11 /lpf (0-3) 12/17/17 08:55 Urine Mucus Few /lpf (Occasional) H 01/14/18 00:10 Micro UA Comment Cath-culture ind 01/14/18 00:10 Ur Microscopic Review Not Reportable 01/14/18 00:10 Urine Culture Comments Cath-cult indicated 01/14/18 00:10 Urine Eosinophils None seen /HPF (None Seen) 12/17/17 13:54 Urine Osmolality 462 mosm/kg (300-1300) 12/17/17 13:54 Ur Random Creatinine 187 mg/dL (27-300) 12/17/17 13:54 Ur Random Sodium 21 meq/L 12/17/17 13:54 Pleural RBC 51952 /mm3 (0-0) H 12/17/17 15:55 Pleural Nuc Cells 4795 /mm3 (0-10) H 12/17/17 15:55 Pleural Neutrophils 42 % 12/17/17 15:55 Pleural Lymphocytes 17 % 12/17/17 15:55 Pleural Monocytes 3 % 12/17/17 15:55 Pleural Mesothelial 3 % 12/17/17 15:55 Pleural Other Cells 35 % 12/17/17 15:55 Pleural Fluid Comment 12/17/17 15:55 Pleural Total Protein 1.8 gm/dL 12/17/17 15:55 Pleural LDH 3681 U/L 12/17/17 15:55 Pleural Glucose 85 mg/dL 12/17/17 15:55 Nasal Screen MRSA (PCR) Not detected (Negative) 01/06/18 16:00 BAL Total Volume 24.0 ml 12/19/17 11:30 BAL RBC 200 /mm3 12/19/17 11:30 BAL Nucleated 26.640 Million (4.700-7.100) H 12/19/17 11:30 BAL Neutrophils 91 % 12/19/17 11:30 BAL Lymphocytes 6 % 12/19/17 11:30 BAL Histiocytes 3 % 12/19/17 11:30 BAL White & Oth Cells 1110 /mm3 12/19/17 11:30 Stl C.difficile DNA Amp Negative (Negative) 12/31/17 23:00 St C. diff Tox Epid 027 Negative (Negative) 12/31/17 23:00 Vancomycin Trough 9.8 mcg/mL (5.0-10.0) 12/28/17 04:24 Salicylates Less than 1.7 mg/dL (2.8-20.0) L 12/17/17 08:10 Urine Opiates Screen Pos (Neg) H 12/17/17 08:55 Acetaminophen Less than 2.0 mcg/mL (10.0-30.0) L 12/17/17 08:10 Ur Barbiturates Screen Neg (Neg) 12/17/17 08:55 Valproic Acid 24 mcg/mL (50-100) L 01/12/18 05:14 Ur Amphetamines Screen Neg (Neg) 12/17/17 08:55 U Benzodiazepines Scrn Neg (Neg) 12/17/17 08:55 Urine Cocaine Screen Neg (Neg) 12/17/17 08:55 U Cannabinoids Screen Neg (Neg) 12/17/17 08:55 Serum Alcohol Less than 3 mg/dL (0-5) 12/17/17 08:10 HIV 1&2 Ab/P24 Ag 4thGn Nonreactive (Nonreactive) 12/17/17 11:35 Blood Type O Positive 01/07/18 03:12 Blood Type Recheck Not needed 01/07/18 03:12 Antibody Screen Negative 01/07/18 03:12 MTS Gel Crossmatch See Detail 01/09/18 15:07 Bld Prod Order Comment 01/08/18 07:[address] 12/17/17 08:02 CONCLUSION: 1. 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 2. Otherwise negative. . Abdomen/Pelvis CT 12/17/17 10:45 CONCLUSION: 1. Moderate diffuse colonic wall thickening exaggerated by lack of colonic distention. This may be due to low-protein state/edema. However, differential considerations include infectious and inflammatory colitis. 2. Moderate-sized right hydropneumothorax with airspace disease in the lung bases as described on chest CT. 3. Additional ancillary findings, as above. Chest CT 01/03/18 11:56 CONCLUSION: 1. Consolidation at both lung bases has improved. Cavitary lesions on the right are slightly larger as measured above. 2. Improving pneumomediastinum, pneumopericardium and subcutaneous emphysema. Near complete resolution of previous right pneumothorax. 2 right chest tubes present. Trace pleural fluid present. 3. Patchy airspace disease remains in the lungs probably with some fibrotic changes well. 4. Endotracheal tube and nasogastric tube in good position. Chest X-Ray 01/14/18 00:00 CONCLUSION: 1. Nasogastric tube no longer seen. 2. No significant interval change in mild bilateral pulmonary opacity. Objective Remarks: GENERAL: Middle-aged lady, intubated and, chronically ill-appearing off sedation not responding HEENT: Pupils are equal and reactive, sclerae are anicteric, status post tracheostomy on 01/11 NECK: Supple, no rigidity, no neck vein distention, no carotid bruit tracheostomy site without bleeding. CHEST: Coarse breath sounds bilateral, no wheezes, currently no subcu emphysema. 1 dual right-sided chest tubes on suction, -190 cc past 24 hours no air leak noted CARDIOVASCULAR: Regular heart sounds, no murmurs appreciated ABDOMEN: Soft, nontender, nondistended, bowel sounds present, no hepatomegaly or splenomegaly appreciated MUSCULOSKELETAL: Extremities are warm and well perfused, peripheral pulses are present, 2+ pitting edema NEUROLOGICAL: Sedated and intubated, spontaneous eye opening to voice stimuli and does not follow commands, withdraws to pain. Pupils are equal and reactive , no gaze deviation Assessment and Plan - Assessment and Plan Plan: Neuro/Psych: Acute metabolic encephalopathy Possible seizure disorder Fentanyl and propofol infusions discontinued .Dexmedetomidine infusion for maintenance of ventilator synchrony Daily sedation vacation. Goal RASS -2 She was started on anticonvulsants on her initial admission 11/23. Valproic acid 500 mg 3 times daily. Recheck valproic acid level subtherapeutic Head CT 12/17- for acute disease EEG - Diffuse slowing consistent with a moderate diffuse encephalopathy. No epileptiform activity. Repeat 01/10 Acetaminophen 650 by tube every 6 hours as needed fever 01/13 Held quetiapine 25 mg daily/home medication Holding tizanidine 4 mg daily 01/14 repeat EEG, neurology has been consulted Ammonia level less than 10 Respiratory: Postop day #4 Right thoracoscopic decortication, closure of bronchopleural fistula, debridement and irrigation of the prior chest tube wounds and placement of #2 32 Nepalese chest tubes Acute hypoxic and hypercarbic respiratory failure- persistent Acute severe bilateral multifocal healthcare associated pneumonia Possible aspiration pneumonia Spontaneous right-sided tension pneumothorax Subcutaneous Emphysema CT surgery/Dr. Marquez following. CT thorax overnight 12/12 revealed significant 3.7 cm moderate right pneumothorax without tension. Pneumopericardium and significant subcutaneous emphysema. Vent bundle and bronchodilators PRVC mode 450/14/35% PEEP of 5 Patient is synchronized with the ventilator, no auto PEEP, Pip 27 Epoprostanol added 12/19, removed 12/29. Albuterol/ipratropium aerosols every 4 hours with albuterol aerosols every 2 hours as needed dyspnea Wean FiO2 for goal SPO2 greater than 90% Daily CXR 01/14-CPAP trials initiated Cardiovascular: Septic shock- resolved Elevated troponin Type II NSTEMI secondary to demand ischemia Hyperlipidemia Holding lisinopril 30 mg daily/home medication. For dyslipidemia resume pravastatin 40 mg daily when clinically indicated Continue hydrocortisone wean Furosemide 40 mg IV daily diuresis. Renal: Acute kidney injury (resolved) Secondary to shock, off pressors Frequent urine output monitoring Daily creatinine KVO IV fluid. Furosemide 40 mg IV daily Strict I/Os FEN/GI: Acute protein calorie malnutritionsevere Lactic acidosis- resolved Severe colitis Enterovirus colitis Hyperammonemia-resolved 01/14 Hold lactulose 30 cc twice daily Tube feeding with vital 1.5 goal 55 cc now. Metoclopramide 5 mg 3 times daily. Starting today 01/12 post tracheostomy ICU electrolyte protocol Daily BMP, magnesium, phosphorus Lactulose/polythene glycol twice daily Holding dicyclomine 20 mg 3 times daily 01/13 status post PEG tube placement Vital high tube feeds reinitiated Heme/ID: C. difficile colitis Enterovirus colitis Septic shock Healthcare associated multifocal pneumonia Possible gram-positive cocci bacteremia Early empyema 1 unit PRBCs transfused on 12/28 for hemoglobin 6.9, recheck CBC and transfuse to keep hemoglobin above 8 g% Transfuse 1 unit PRBCs 01/07.. Transfuse 2 units PRBCs 01/09 Vancomycin p.o. with pharmacy dosing C. difficile continue Discontinue 01/11 piperacillin/tazobactam and micafungin Bronchoscopy 12/19 with Klebsiella Pleural fluid 12/19 with Klebsiella's/Karla Pleural fluid 12/17 -g Karla albicans/glabrata Klebsiella, lactobacillus 12/17 -sputum -Klebsiella 12/17 blood-strep viridians/coag negative staph Infectious disease consulted and following. IV antibiotics micafungin and Zosyn discontinued 01/11. P.O. vancomycin continued Endocrine: Acute hypoglycemia- resolving. Sliding scale insulin Accu-Cheks every 6 hours to maintain euglycemia Prophylaxis: GI Prophylaxis Famotidine DVT Prophylaxis -- SCDs Subcu heparin Lines: 12/17 femoral triple-lumen catheter discontinued 12/23 12/17 right radial arterial line discontinued 12/21 12/17 right 28 Nepalese chest tube to -40 cm suction: removed 12/26 12/17 right 32 Nepalese chest tube to -40 cm suction removed 01/08 12/19 -right #32 Nepalese chest tube to -40 cm suction removed 01/08 Right IJ cordis with dual-lumen 01/08 removed 01/11. Continue with dual chest tube on right side placed 01/08 Level 2 follow-up Discussed Condition With: Patient's and PHYSICAL THERAPY INSTRUCTOR at bedside
[2018-01-14 17:24] LABS: Anion Gap 9 meq/L (5-15); Blood Urea Nitrogen 14 mg/dL (7-18); Calcium 9.4 mg/dL (8.5-10.1); Carbon Dioxide 29.1 meq/L (21.0-32.0); Chloride 102 meq/L (98-107); Glomerular Filtration Rate Greater Than 89 mL/min (>89); Glucose,Random 118 mg/dL (74-106); Potassium 3.1 meq/L (3.5-5.1); Sodium 140 meq/L (136-145)
[2018-01-15] MEDS: Insulin NovoLIN Regular Correctional Sugar Inj SQ SCH ×4 (00:20→17:23)
[2018-01-15] MEDS: Oral Hygiene Kit OROPHARYNG SCH ×4 (00:21→16:40)
[2018-01-15] MEDS: Dexmedetomidine Inj 200 MCG in Sodium Chlor 0.9% Inj 48 ML IV.CONT PRN ×4 (02:49→23:38)
[2018-01-15] MEDS: Heparin - SQ 10,000 UNITS/ML Vial SQ SCH ×3 (06:06→22:40)
[2018-01-15 06:31] LABS: Baso # (Auto) 0.1 th/mm3 (0.0-0.2); Baso % (Auto) 0.6 % (0.0-2.0); Eos # (Auto) 0.1 th/mm3 (0.0-0.4); Eos % (Auto) 1.5 % (0.0-4.0); Hematocrit 30.2 % (35.0-46.0); Hemoglobin 10.2 gm/dL (11.6-15.3); Lymph # (Auto) 1.9 th/mm3 (1.0-4.8); Lymph % (Auto) 19.7 % (9.0-44.0); Mean Corpuscular HGB Conc 33.7 % (32.0-36.0); Mean Corpuscular Hemoglobin 31.6 pg (27.0-34.0); Mean Corpuscular Volume 93.7 fL (80.0-100.0); Mono # (Auto) 1.1 th/mm3 (0.0-0.9); Mono % (Auto) 11.6 % (0.0-8.0); Neut # (Auto) 6.4 th/mm3 (1.8-7.7); Neut % (Auto) 66.6 % (16.0-70.0); Platelet Count 458 th/mm3 (150-450); Red Blood Count 3.22 mil/mm3 (4.00-5.30); Red Cell Distribution Width 14.4 % (11.6-17.2); White Blood Count 9.6 th/mm3 (4.0-11.0)
[2018-01-15 07:14] LABS: Anion Gap 10 meq/L (5-15); Blood Urea Nitrogen 15 mg/dL (7-18); Carbon Dioxide 29.4 meq/L (21.0-32.0); Chloride 102 meq/L (98-107); Glomerular Filtration Rate Greater Than 89 mL/min (>89); Glucose,Random 111 mg/dL (74-106); Magnesium 1.7 mg/dL (1.5-2.5); Phosphorus 3.7 mg/dL (2.5-4.9); Sodium 141 meq/L (136-145)
[2018-01-15 07:21] LABS: Potassium 2.9 meq/L (3.5-5.1)
[2018-01-15] MEDS: Potassium Chloride 25 MEQ Effervescent Tablet PO PRN (08:13)
[2018-01-15] MEDS: Famotidine 20 MG Tablet PO SCH ×2 (08:14→20:16)
[2018-01-15] MEDS: Sodium Chloride 0.9% 2 ML Flush BID IV.FLUSH SCH ×2 (08:15→20:16)
[2018-01-15] MEDS: Senna/Docusate Sodium 8.6/50 MG Tablet PO SCH ×2 (08:15→20:16)
[2018-01-15] MEDS: Chlorhexidine 0.12% Oral Kit 15 ML UDC OROPHARYNG SCH ×2 (08:15→20:16)
[2018-01-15] MEDS: Collagenase Oint 30 GM Tube TOPICAL SCH (08:16)
[2018-01-15] MEDS: Carboxymethylcellulose 0.5% Opth Drops 15 ML Bottle EACH EYE SCH ×2 (08:16→20:16)
[2018-01-15 08:48] LABS: Lymphocytes 11 % (9-44); Metamyelocytes 2 % (0-1); Monocytes 10 % (0-8); Myelocytes 7 % (0-0)
[2018-01-15 08:49] LABS: Platelet Morphology Normal (Normal)
[2018-01-15] MEDS: Potassium Chlor 20 mEq Premix 20 MEQ/100 ML PIGGYBACK IV.SIG PRN ×2 (09:30→11:45)
[2018-01-15] MEDS: Potassium Chloride 25 MEQ Effervescent Tablet NG/OG SCH (09:45)
[2018-01-15] MEDS ORDERED: Gadobutrol PF 7.5 MMOL/7.5 ML Vial (for RAD) IV.SIG ONE (10:52)
--- NOTE | 2018-01-15 11:19 | MR ---
EXAM DATE: 01/15/2018 11:08 AM EST AGE/SEX: 62 years / Female INDICATIONS: . Unable to follow commands. CLINICAL DATA: This is the patient's subsequent encounter. Patient reports that signs and symptoms h ave been present for 3 weeks and indicates a pain score of Nonresponsive. MEDICAL/SURGICAL HISTORY: Hypertension. Hypercholesterolemia. Fusion, lumbar. right lung surge ry, trach, peg tube [place] [facility] [place]17/2017. . TECHNIQUE: Multiplanar, multisequence examination of the brain was performed without and with 7 ml Ga davist (gadobutrol) contrast as a single exam dose. FINDINGS: Cerebrum: The ventricles are normal for age. No evidence of midline shift, mass lesion, hemorrhage or acute infarction. No extraaxial fluid collections are seen. The pituitary gland and suprasellar cistern are normal in configuration. White Matter: No significant signal abnormalities are seen in the white matter. Posterior Fossa: The cerebellum and brainstem are intact. The 4th ventricle is midline. The cerebel lopontine angle is unremarkable. The cerebellar tonsils are normal in position. Diffusion Imaging: No focal areas of restricted diffusion are seen. No evidence of acute infarction . Extracranial: The visualized portions of the orbits and paranasal sinuses are unremarkable. Extensiv e fluid present in the mastoid air cells bilaterally Post Contrast: No abnormal areas of parenchymal or dural enhancement. No evidence of blood-brain ba rrier breakdown. CONCLUSION: 1. Bilateral mastoiditis. 2. No acute intercranial findings. Electronically signed by: Pato Cruz MD 01/15/2018 11:17 AM EST
--- NOTE | 2018-01-15 11:34 | P.DIET ---
Nutritional Evaluation Type of nutrition evaluation: follow-up Nutrition consult regarding: Tube Feeding Objective - Diagnosis Septic Shock, Resp Failure, hypoglycemia - Objective % IBW: 123 Body Weight Used for Calculations: Actual (72.7 kg ) Energy Needs - Lower Range (kCal/kg): 25 Energy Needs - Upper Range (kCal/kg): 30 Lower Limit kCal/kg (kCals): 1,818 Upper Limit kCal/kg (kCals): 2,181 Lower Limit Protein Factor (Grams per Kg): 1.1 Upper Limit Protein Factor (Grams per Kg): 1.4 Lower Protein Needs (Protein): 80 Upper Protein Needs (Protein): 102 Dietitian Reviewed in Medical Record: Curent medications, Intake & Output, Labs , Medical history, Tube feeding Diet Order: NPO, TF Objective Comments: PMH includes: HTN, Chronic Pain, HLD, MDRO Labs include: K+ 2.9, Cr 0.37, random glucose 111 Feeding - Current Tube Feeding Tube Feeding Product: Jevity 1.5 Tube Feeding Rate: 55 Assessment Assessment: Pt s/p PEG placement on 01/13 and undergoing CPAP trials now. Pts Jevity 1.5 TF running @ 55mL/hr and tolerating well. Good UOP and +LBM 01/14. Continue to monitor TF tolerance and rate. CBW: 64.8, wt loss of 8kg since admission noted. Labs reviewed, dietitian following. Recommendations: 1. Recommend to continue TF'ing w/Vital 1.5 goal rate 55ml/hr Dietitian to Monitor: Lab values, Electrolytes, Glucose level, Intake & Output, Tube feeding tolerance, Weight change, Medical course
--- NOTE | 2018-01-15 13:06 | P.PNCC ---
Subjective Subjective Remarks/Hospital Course: This is a 62yF who was originally admitted on 11/23 with a diagnosis of colitis, found to have enterovirus. discharged on 12/11 at that time on PO vancomycin, but came back on 12/13 with altered mental status and hypoglycemia, again discharged on 12/15. She was mildly fatigued on 12/16 according to her and asked to wait another day before traveling back to her home in [place]. This morning, she was unarousable and her called 911. She was intubated upon arrival to the emergency department for agonal respirations. CXR demonstrates bilateral multifocal pneumonia. She is febrile, hypotensive. CVL placed in the ER and vasopressors initiated after 2L bolus crystalloid. CT chest/abd/pelvis demonstrates right pneumothorax, densely consolidated right lower lobe, bilateral pulmonary infiltrates, evidence of ongoing colitis. Patient continue to be unstable. Immediately after identifying ptx on CT scan, I emergently placed right chest tube with some improvements in hemodynamics, but ongoing distributive shock persists. I placed arterial line. No additional information available from the patient, ROS unobtainable. In discussion with the , she has not had any new complaints in the 48h she was home, and other than mild fatigue last night, no new complaints. She was able to walk to the bathroom without assistance yesterday. 12/18: shock remains. now on levophed, vasopressin, phenylephrine. second chest tube placed overnight for worsening SQ air. acidosis remains and is severe. 12/19: Afebrile. Remains on vasopressin drip only. On stress dose hydrocortisone. Evaluated by CT surgery. Not a candidate for intervention at the present time. Chest tube continues to leak. Epoprostenol added today 12/20: Afebrile. FiO2 has decreased and is currently 70%. Currently replacing potassium, phosphorus and magnesium. Recheck later this afternoon. Less chest tube leak today down to 1 chamber. 12/21: Overnight, worsening subcutaneous emphysema. A third chest tube placed by overnight computer numeric control setter after discussion with cardiothoracic surgery. Currently hemodynamically stable. Replacing phosphorus today. To be evaluated by CT surgery today. 12/22: Remains sedated, orally intubated on mechanical ventilation. Persistent air leak and chest tube noted. 12/23: Remains sedated, orally intubated on mechanical ventilation. Air leak persists though slightly improved. PEEP at +5 FiO2 55%, inhaled Flolan continues. Central line replaced with right IJ triple-lumen catheter. 12/24: Remains sedated, orally intubated on mechanical ventilation. 1+ air leak from chest tube 3 noted. PEEP +5, FiO2 60%, inhaled Flolan continues. Decreasing subcutaneous emphysema noted. 12/25: Remains sedated, orally improved on mechanical ventilation. 1+ for leak from chest tube 2. PEEP +5, FiO2 50%. Starting to titrate inhaled Flolan down today. Initiating Lasix to mobilize fluid. 12/26: remains intubated. air leak continues from chest tube #3. drainage out of #1 and #2 are very serous. #1 was removed by myself today. all chest tube dressings changed by me today. repeat CXR pending. very volume overloaded. starting to diurese. off vasopressors. off pathway: still high fio2 requirements. 12/27: good diuresis overnight. very hypokalemic today and aggressively replacing. CXR unchanged. air leak unchanged. long discussion over long-term and short-term prognosis and plan of care with entire family today. all questions answered. 12/28: Continues to diurese. Remains on mechanical ventilation. Positive air leak in chest tube 3. 1 unit PRBCs transfused earlier for hemoglobin 6.9. 12/29: Remains on mechanical ventilation. Increasing subcutaneous emphysema noted. Air leak stopped and chest tube #2 and 3 currently. Flolan being titrated down. Chest x-ray shows appropriate positioning of 2 chest tubes with the more medial small right pneumothorax with significant subcutaneous emphysema bilaterally. Patient remains off pressors and is being diuresed to mobilize fluid. 12/30: volume removal continues. Cr still at baseline. fio2 down to 40% and off inhaled Flolan. discussed with Dr. Lynn: will need to wait at least until next week for VATS. Will need trach going forward: discussed with family and they are agreeable. Dr. Lynn asked that both chest tubes remain in place. air leak persists. remains intubated and sedated. 12/31: Sedated, orally intubated on mechanical ventilation. On 40% FiO2 PEEP + 5. Positive air leak in chest tube [address] surgery planning for VATS next week, will need tracheostomy coordinated as well. 01/01: Remains sedated, orally intubated on mechanical ventilation. PEEP +5, FiO2 35%. Being diuresed. 01/02: Sedated, orally intubated on mechanical ventilation. PEEP +5, FiO2 35%. Intermittent air leak in chest tube 3. Being diuresed 01/03: persistent air leak. hypoxia improving. discussed case with Dr. Lynn- he would like pre-operative CT chest for surgical planning. we also discussed timing of tracheostomy: it would be easier surgically to have ett in place to place double-lumen ett, so he would prefer to keep ett until after operation, and then proceed with tracheostomy. tentatively VATS planned for Friday 01/05. 01/04: No events over the night. Patient remains sedated and intubated, sedation achieved with fentanyl and propofol. T-max of 100.2 over the last 24 hours. I/O 3770/3130. Chest tubes remain on suction. 01/05: T-max 99.3. Currently afebrile. Difficulty with weaning from ventilator noted. VATS currently on hold per CT surgery. 01/06: Resting comfortably in bed in no acute distress. Plan for thoracotomy rested on Thursday night. Currently on CPAP trial. Potassium being replaced. 01/07: Resting complaint bed in no acute distress. Plan for thoracotomy tomorrow a.m. 730. Currently on CPAP trial. Transfuse when he PRBC today. Hemoglobin currently 9.6 potassium 3.9. 01/08: Today, status post right thoracoscopic decortication, closure of bronchopleural fistula with debridement and irrigation of the prior chest tube wounds with placement of 2 #32 Malian chest tubes by cardiothoracic surgery patellar procedure well. EBL 250. Adequate urine output. Appears stable. 01/09: T-max 100.2. Currently tachycardic. Receiving 2 units PRBCs. Potassium being replaced. Agitated on the ventilator. 01/10: Twitching on the ventilator/tremor. Temperature max 100.2. 120 cc output from chest tube overnight. Still not arousable/following commands on the ventilator. Likely tracheostomy Subjective 01/11: T-max 100.5. Status post #8 Shiley practice tracheostomy today. Order PEG tube for tomorrow. Arousable but not following commands. Thrashes back and forth. 01/12: T-max 100.4. Plan to initiate CPAP trials today. Patient does not follow commands, but does track movement. IV antibiotics discontinued yesterday Zosyn and micafungin. The patient continues on p.o. Vanco. Case discussed with CT surgery plan for continuation chest tubes until placed on trach collar. 01/13: No acute events overnight. Patient underwent PEG placement this afternoon. Remains n.p.o. 6 hours post PEG. During sedation vacation the patient becomes extremely agitated and tachycardic. Right chest tube continues on 20 cm of water suction. 01/14: Sedation vacation underway. Patient noted to have spontaneous eye opening and spontaneous movement of lower extremities but not responding to any commands and no visual tracking. EEG has been ordered. Neurology has been consulted. Noted ammonia level less than 10 this a.m. propofol and fentanyl sedation has been discontinued since yesterday. The patient will remain on Precedex to maintain ventilator synchrony but currently undergoing sedation vacation for accurate neurological assessment. The patient has been initiated on CPAP trials. 01/15: No acute changes in neurological status. Noted spontaneous eye opening today MRI performed which showed no acute intracranial abnormality. Urine culture resulted UTI gram-negative rods, Rocephin 7-day medication regimen added. The patient tolerated CPAP trials for approximately 9.5 hours yesterday. The patient continues on CPAP trials today. Objective Vital Signs / I&O: Vital Signs 01/14/18 14:00 01/14/18 15:49 01/14/18 16:00 Temperature 98.2 F Pulse Rate 103 H 114 H 117 H Respiratory Rate 27 H 27 H Blood Pressure 142/84 H Pulse Oximetry 97 96 01/14/18 17:00 01/14/18 18:00 01/14/18 20:00 Temperature 99.4 F Pulse Rate 107 H 100 H 103 H Respiratory Rate 25 H 21 25 H Blood Pressure 137/73 125/69 146/80 H Pulse Oximetry 97 97 99 01/14/18 20:54 01/14/18 22:00 01/15/18 00:00 Temperature 98.6 F Pulse Rate 102 H 106 H 81 Respiratory Rate 20 26 H Blood Pressure 117/75 Pulse Oximetry 99 98 01/15/18 00:44 01/15/18 02:00 01/15/18 04:00 Temperature 98.6 F Pulse Rate 78 77 85 Respiratory Rate 16 19 Blood Pressure 146/79 H Pulse Oximetry 98 98 01/15/18 04:01 01/15/18 06:00 01/15/18 08:00 Temperature Pulse Rate 88 90 79 Respiratory Rate 21 Blood Pressure Pulse Oximetry 100 01/15/18 08:36 01/15/18 10:00 01/15/18 11:18 Temperature Pulse Rate 80 Respiratory Rate 21 Blood Pressure Pulse Oximetry 99 100 Intake & Output 01/14/18 01/15/18 01/15/18 18:59 06:59 18:59 Intake Total 628 / 628 469 / 469 50 / 50 Output Total 1630 / 1630 670 / 670 Balance -1002 / -1002 -201 / -201 50 / 50 Weight 64.8 kg Intake: IV 375 / 375 100 / 100 50 / 50 Precedex Inj 200 MCG In NS Inj 150 / 150 100 / 100 50 / 50 48 ML @ 0.2 MCG/KG/HR 3.48 mls/ hr IV.CONT TITRATE PRN Rx#: [id number] Magnesium Sulfate 1 gm/D5W 100 100 / 100 ml Premix 100 ML @ 100 mls/hr IV.SIG ONCE ONE Rx#:[id number] fentaNYL 10 mcg/mL Premix Drip 125 / 125 2,500 mcg In 250 ml @ 50 MCG/HR 5 mls/hr IV.SIG TITRATE PRN Rx #:[id number] Tube Feeding 193 / 193 269 / 269 Tube Irrigant 60 / 60 100 / 100 Output: Urine 1100 / 1100 600 / 600 Stool 500 / 500 50 / 50 Chest Tube Drainage 30 / 30 20 / 20 Right Y Connected 30 / 30 20 / 20 Other: # Incontinent Voids 3 1 Date of Last Bowel Movement 01/14/18 01/14/18 # Incontinent Bowel Movements 1 1 Result Diagrams: 01/15/18 04:45 01/15/18 04:45 Objective Remarks: GENERAL: Middle-aged lady, intubated and, chronically ill-appearing off sedation not responding HEENT: Pupils are equal and reactive, sclerae are anicteric, status post tracheostomy on 01/11 NECK: Supple, no rigidity, no neck vein distention, no carotid bruit tracheostomy site without bleeding. CHEST: Coarse breath sounds bilateral, no wheezes, currently no subcu emphysema. 1 dual right-sided chest tubes on suction, -190 cc past 24 hours no air leak noted CARDIOVASCULAR: Regular heart sounds, no murmurs appreciated ABDOMEN: Soft, nontender, nondistended, bowel sounds present, no hepatomegaly or splenomegaly appreciated MUSCULOSKELETAL: Extremities are warm and well perfused, peripheral pulses are present, 2+ pitting edema NEUROLOGICAL: Sedated and intubated, spontaneous eye opening to voice stimuli and does not follow commands, visual tracking noted today. Pupils are equal and reactive, no gaze deviation Assessment and Plan - Assessment and Plan Plan: Neuro/Psych: Acute metabolic encephalopathy Possible seizure disorder Dexmedetomidine infusion for maintenance of ventilator synchrony Daily sedation vacation. Goal RASS -2 She was started on anticonvulsants on her initial admission 11/23. Valproic acid 500 mg 3 times daily. Recheck valproic acid level subtherapeutic Head CT 12/17- for acute disease EEG - Diffuse slowing consistent with a moderate diffuse encephalopathy. No epileptiform activity. Repeat 01/10 Acetaminophen 650 by tube every 6 hours as needed fever 01/13 Held quetiapine 25 mg daily/home medication Holding tizanidine 4 mg daily 01/14 repeat EEG, neurology has been consulted Trend ammonia level 01/15 MRI brain-no acute intracranial abnormality Respiratory: Postop day #5 Right thoracoscopic decortication, closure of bronchopleural fistula, debridement and irrigation of the prior chest tube wounds and placement of #2 32 Malian chest tubes Acute hypoxic and hypercarbic respiratory failure- persistent Acute severe bilateral multifocal healthcare associated pneumonia Possible aspiration pneumonia Spontaneous right-sided tension pneumothorax Subcutaneous Emphysema CT surgery/Dr. Marquez following. CT thorax overnight 12/12 revealed significant 3.7 cm moderate right pneumothorax without tension. Pneumopericardium and significant subcutaneous emphysema. Vent bundle and bronchodilators PRVC mode 450/14/35% PEEP of 5 Epoprostanol added 12/19, removed 12/29. Albuterol/ipratropium aerosols every 4 hours with albuterol aerosols every 2 hours as needed dyspnea Duo nebs scheduled every 6 hours Wean FiO2 for goal SPO2 greater than 90% Daily CXR 01/14-CPAP trials initiated, patient averaging 9.5 hours Cardiovascular: Septic shock- resolved Elevated troponin Type II NSTEMI secondary to demand ischemia Hyperlipidemia Holding lisinopril 30 mg daily/home medication. For dyslipidemia resume pravastatin 40 mg daily when clinically indicated Continue hydrocortisone wean Furosemide 40 mg IV daily diuresis. Renal: Acute kidney injury (resolved) Secondary to shock, off pressors Frequent urine output monitoring Daily creatinine KVO IV fluid. Furosemide 40 mg IV daily Strict I/Os FEN/GI: Acute protein calorie malnutritionsevere Lactic acidosis- resolved Severe colitis Enterovirus colitis Hyperammonemia-resolved 01/14 Hold lactulose 30 cc twice daily Tube feeding with vital 1.5 goal 55 cc now. Metoclopramide 5 mg 3 times daily. Starting today 01/12 post tracheostomy ICU electrolyte protocol Daily BMP, magnesium, phosphorus Lactulose/polythene glycol twice daily Holding dicyclomine 20 mg 3 times daily 01/13 status post PEG tube placement Vital high tube feeds reinitiated Heme/ID: C. difficile colitis Enterovirus colitis Septic shock Healthcare associated multifocal pneumonia Possible gram-positive cocci bacteremia Early empyema Urosepsis 1 unit PRBCs transfused on 12/28 for hemoglobin 6.9, recheck CBC and transfuse to keep hemoglobin above 8 g% Transfuse 1 unit PRBCs 01/07.. Transfuse 2 units PRBCs 01/09 Vancomycin p.o. with pharmacy dosing C. difficile continue Discontinue 01/11 piperacillin/tazobactam and micafungin Bronchoscopy 12/19 with Klebsiella Pleural fluid 12/19 with Klebsiella's/Karla Pleural fluid 12/17 -g Karla albicans/glabrata Klebsiella, lactobacillus 12/17 -sputum -Klebsiella 12/17 blood-strep viridians/coag negative staph Infectious disease consulted and following. IV antibiotics micafungin and Zosyn discontinued 01/11. P.O. vancomycin continued 01/15 urine culturegram-negative rods, patient continues with purewick urinary drainage system Endocrine: Acute hypoglycemia- resolving. Sliding scale insulin Accu-Cheks every 6 hours to maintain euglycemia Prophylaxis: GI Prophylaxis Famotidine DVT Prophylaxis -- SCDs Subcu heparin Lines: 12/17 femoral triple-lumen catheter discontinued 12/23 12/17 right radial arterial line discontinued 12/21 12/17 right 28 Malian chest tube to -40 cm suction: removed 12/26 12/17 right 32 Malian chest tube to -40 cm suction removed 01/08 12/19 -right #32 Malian chest tube to -40 cm suction removed 01/08 Right IJ cordis with dual-lumen 01/08 removed 01/11. Continue with dual chest tube on right side placed 01/08 Level 2 follow-up Discussed Condition With: With patient's , Dr. Crews and CLOTH INSPECTOR at bedside
--- NOTE | 2018-01-15 15:19 | P.PNGI ---
Subjective Interval history: Intubated and ventilated Tube feeding at 30 mL's per hour via PEG tube <Roya Valderrama - Last Filed: 01/15/18 15:15> Physical Exam Vital signs: Vital Signs 01/14/18 15:49 01/14/18 16:00 01/14/18 17:00 Temperature 98.2 F Pulse Rate 114 H 117 H 107 H Respiratory Rate 27 H 27 H 25 H Blood Pressure 142/84 H 137/73 Pulse Oximetry 97 96 97 01/14/18 18:00 01/14/18 20:00 01/14/18 20:54 Temperature 99.4 F Pulse Rate 100 H 103 H 102 H Respiratory Rate 21 25 H 20 Blood Pressure 125/69 146/80 H Pulse Oximetry 97 99 99 01/14/18 22:00 01/15/18 00:00 01/15/18 00:44 Temperature 98.6 F Pulse Rate 106 H 81 78 Respiratory Rate 26 H 16 Blood Pressure 117/75 Pulse Oximetry 98 98 01/15/18 02:00 01/15/18 04:00 01/15/18 04:01 Temperature 98.6 F Pulse Rate 77 85 88 Respiratory Rate 19 21 Blood Pressure 146/79 H Pulse Oximetry 98 100 01/15/18 05:30 01/15/18 05:45 01/15/18 06:00 Temperature Pulse Rate 95 H 86 82 Respiratory Rate 22 17 20 Blood Pressure 146/79 H 135/74 139/78 Pulse Oximetry 98 98 98 01/15/18 06:15 01/15/18 06:31 01/15/18 06:45 Temperature Pulse Rate 87 87 81 Respiratory Rate 22 11 L 19 Blood Pressure 142/78 H 151/71 H 135/64 Pulse Oximetry 99 100 98 01/15/18 07:00 01/15/18 07:15 01/15/18 07:30 Temperature Pulse Rate 77 79 79 Respiratory Rate 17 17 16 Blood Pressure 137/71 141/78 H 148/82 H Pulse Oximetry 98 99 99 01/15/18 07:45 01/15/18 08:00 01/15/18 08:15 Temperature 97.8 F Pulse Rate 84 79 78 Respiratory Rate 21 20 19 Blood Pressure 145/80 H 146/81 H 148/81 H Pulse Oximetry 99 99 98 01/15/18 08:30 01/15/18 08:36 01/15/18 08:45 Temperature Pulse Rate 81 77 Respiratory Rate 13 21 23 Blood Pressure 160/89 H 156/86 H Pulse Oximetry 99 99 99 01/15/18 09:00 01/15/18 09:15 01/15/18 09:30 Temperature Pulse Rate 87 86 91 H Respiratory Rate 25 H 24 21 Blood Pressure 158/89 H 150/85 H 152/87 H Pulse Oximetry 99 98 98 01/15/18 09:45 01/15/18 10:00 01/15/18 11:04 Temperature Pulse Rate 77 80 95 H Respiratory Rate 19 22 Blood Pressure 152/86 H 154/83 H Pulse Oximetry 99 98 100 01/15/18 11:18 01/15/18 11:30 01/15/18 12:00 Temperature Pulse Rate 82 79 Respiratory Rate 29 H 24 Blood Pressure 178/93 H Pulse Oximetry 100 100 99 01/15/18 12:43 01/15/18 13:00 01/15/18 14:00 Temperature Pulse Rate 84 85 81 Respiratory Rate 26 H 26 H 26 H Blood Pressure 175/93 H Pulse Oximetry 100 100 100 01/15/18 14:07 01/15/18 14:09 Temperature Pulse Rate 87 84 Respiratory Rate 29 H 28 H Blood Pressure 175/100 H 176/85 H Pulse Oximetry 100 100 Intake & Output 01/14/18 01/15/18 01/15/18 18:59 06:59 18:59 Intake Total 628 / 628 469 / 469 50 / 50 Output Total 1630 / 1630 670 / 670 Balance -1002 / -1002 -201 / -201 50 / 50 Weight 64.8 kg Intake: IV 375 / 375 100 / 100 50 / 50 Precedex Inj 200 MCG In NS Inj 150 / 150 100 / 100 50 / 50 48 ML @ 0.2 MCG/KG/HR 3.48 mls/ hr IV.CONT TITRATE PRN Rx#: [id number] Magnesium Sulfate 1 gm/D5W 100 100 / 100 ml Premix 100 ML @ 100 mls/hr IV.SIG ONCE ONE Rx#:[id number] fentaNYL 10 mcg/mL Premix Drip 125 / 125 2,500 mcg In 250 ml @ 50 MCG/HR 5 mls/hr IV.SIG TITRATE PRN Rx #:[id number] Tube Feeding 193 / 193 269 / 269 Tube Irrigant 60 / 60 100 / 100 Output: Urine 1100 / 1100 600 / 600 Stool 500 / 500 50 / 50 Chest Tube Drainage Right Y Connected Other: # Incontinent Voids 3 1 Date of Last Bowel Movement 01/14/18 01/14/18 # Incontinent Bowel Movements 1 1 - Constitutional chronically ill appearing Comments: Intubated and ventilated - Routine HEENT Exam Head: Present: normocephalic - Routine Respiratory Exam Present: patient mechanically ventilated - Routine Cardiovascular Exam Present: S1, S2 - Routine Abdominal Exam Present: soft, normoactive bowel sounds. Absent: tenderness, distended, guarding, firm Comments: PEG tube intact with dressing present no drainage or signs of infection noted - Routine Extremities Exam Present: pulses intact - Routine Skin Exam Present: dry, warm - Urinary Catheter Management Indwelling Urethral Catheter Cath placed during this visit: yes, but has since been removed by the nurse Reason for continuing: Not indwelling catheter Insertion date: 01/08/18 Insertion time: 08:00 Removal date: 01/08/18 Removal time: 18:00 Straight Cath placed during this visit: yes, but has since been removed by the nurse Reason for continuing: Hourly intake/output Insertion date: 01/08/18 Insertion time: 08:00 Removal date: 12/23/17 Removal time: 00:00 Female External Cath placed during this visit: no <Roya Valderrama - Last Filed: 01/15/18 15:15> Vital signs: Vital Signs 01/14/18 17:00 01/14/18 18:00 01/14/18 20:00 Temperature 99.4 F Pulse Rate 107 H 100 H 103 H Respiratory Rate 25 H 21 25 H Blood Pressure 137/73 125/69 146/80 H Pulse Oximetry 97 97 99 01/14/18 20:54 01/14/18 22:00 01/15/18 00:00 Temperature 98.6 F Pulse Rate 102 H 106 H 81 Respiratory Rate 20 26 H Blood Pressure 117/75 Pulse Oximetry 99 98 01/15/18 00:44 01/15/18 02:00 01/15/18 04:00 Temperature 98.6 F Pulse Rate 78 77 85 Respiratory Rate 16 19 Blood Pressure 146/79 H Pulse Oximetry 98 98 01/15/18 04:01 01/15/18 05:30 01/15/18 05:45 Temperature Pulse Rate 88 95 H 86 Respiratory Rate 21 22 17 Blood Pressure 146/79 H 135/74 Pulse Oximetry 100 98 98 01/15/18 06:00 01/15/18 06:15 01/15/18 06:31 Temperature Pulse Rate 82 87 87 Respiratory Rate 20 22 11 L Blood Pressure 139/78 142/78 H 151/71 H Pulse Oximetry 98 99 100 01/15/18 06:45 01/15/18 07:00 01/15/18 07:15 Temperature Pulse Rate 81 77 79 Respiratory Rate 19 17 17 Blood Pressure 135/64 137/71 141/78 H Pulse Oximetry 98 98 99 01/15/18 07:30 01/15/18 07:45 01/15/18 08:00 Temperature 97.8 F Pulse Rate 79 84 79 Respiratory Rate 16 21 20 Blood Pressure 148/82 H 145/80 H 146/81 H Pulse Oximetry 99 99 99 01/15/18 08:15 01/15/18 08:30 01/15/18 08:36 Temperature Pulse Rate 78 81 Respiratory Rate 19 13 21 Blood Pressure 148/81 H 160/89 H Pulse Oximetry 98 99 99 01/15/18 08:45 01/15/18 09:00 01/15/18 09:15 Temperature Pulse Rate 77 87 86 Respiratory Rate 23 25 H 24 Blood Pressure 156/86 H 158/89 H 150/85 H Pulse Oximetry 99 99 98 01/15/18 09:30 01/15/18 09:45 01/15/18 10:00 Temperature Pulse Rate 91 H 77 80 Respiratory Rate 21 19 22 Blood Pressure 152/87 H 152/86 H 154/83 H Pulse Oximetry 98 99 98 01/15/18 11:04 01/15/18 11:18 01/15/18 11:30 Temperature Pulse Rate 95 H 82 Respiratory Rate 29 H Blood Pressure 178/93 H Pulse Oximetry 100 100 100 01/15/18 12:00 01/15/18 12:43 01/15/18 13:00 Temperature Pulse Rate 79 84 85 Respiratory Rate 24 26 H 26 H Blood Pressure 175/93 H Pulse Oximetry 99 100 100 01/15/18 14:00 01/15/18 14:07 01/15/18 14:09 Temperature Pulse Rate 81 87 84 Respiratory Rate 26 H 29 H 28 H Blood Pressure 175/100 H 176/85 H Pulse Oximetry 100 100 100 01/15/18 15:49 Temperature Pulse Rate 80 Respiratory Rate 23 Blood Pressure Pulse Oximetry 100 Intake & Output 01/14/18 01/15/18 01/15/18 18:59 06:59 18:59 Intake Total 628 / 628 469 / 469 350 / 350 Output Total 1630 / 1630 670 / 670 Balance -1002 / -1002 -201 / -201 350 / 350 Weight 64.8 kg Intake: IV 375 / 375 100 / 100 350 / 350 Precedex Inj 200 MCG In NS Inj 150 / 150 100 / 100 50 / 50 48 ML @ 0.2 MCG/KG/HR 3.48 mls/ hr IV.CONT TITRATE PRN Rx#: [id number] Magnesium Sulfate 1 gm/D5W 100 100 / 100 ml Premix 100 ML @ 100 mls/hr IV.SIG ONCE ONE Rx#:[id number] KCl 20 mEq Premix Inj 20 meq In 200 / 200 100 ml @ 50 mls/hr IV.SIG Q2H PRN Rx#:[id number] Rocephin Inj 1,000 MG In NS Inj 100 / 100 100 ML @ 200 mls/hr IV.SIG Q24H BEN[place]AM[place] Rx#:[id number] fentaNYL 10 mcg/mL Premix Drip 125 / 125 2,500 mcg In 250 ml @ 50 MCG/HR 5 mls/hr IV.SIG TITRATE PRN Rx #:[id number] Tube Feeding 193 / 193 269 / 269 Tube Irrigant 60 / 60 100 / 100 Output: Urine 1100 / 1100 600 / 600 Stool 500 / 500 50 / 50 Chest Tube Drainage 30 / 30 20 / 20 Right Y Connected 30 / 30 20 / 20 Other: # Incontinent Voids 3 1 Date of Last Bowel Movement 01/14/18 01/14/18 # Incontinent Bowel Movements 1 1 - Urinary Catheter Management Indwelling Urethral Catheter Cath placed during this visit: no Straight Cath placed during this visit: no Female External Cath placed during this visit: no <Brennan Barrientos - Last Filed: 01/15/18 16:15> Results - Labs CBC & Chem 7: 01/15/18 04:45 01/15/18 04:45 Laboratory Results - last 24 hr 01/14/18 01/14/18 01/14/18 00:10 16:40 16:40 WBC RBC Hgb Hct MCV MCH MCHC RDW Plt Count MPV Prelim Diff (Auto) Neut % (Auto) Lymph % (Auto) Bowman % (Auto) Eos % (Auto) Baso % (Auto) Neut # (Auto) Lymph # (Auto) Bowman # (Auto) Eos # (Auto) Baso # (Auto) WBC Differential Seg Neuts % (Manual) Band Neuts % (Manual) Lymphocytes % (Manual) Monocytes % (Manual) Metamyelocytes % (Man) Myelocytes % (Man) Abs Neuts (Manual) Differential Comment Platelet Estimate Platelet Morphology Sodium 140 Potassium 3.1 L D Chloride 102 Carbon Dioxide 29.1 Anion Gap 9 BUN 14 Creatinine 0.48 L Estimated GFR Greater than 89 POC Glucose Random Glucose 118 H Calcium 9.4 Phosphorus Magnesium 1.8 Vitamin B12 Urine Color Yellow Urine Clarity Hazy H Urine pH 6.0 Ur Specific [place] 1.010 Urine Protein Negative Urine Glucose (UA) Negative Urine Ketones Negative Urine Occult Blood Negative Urine Nitrate Negative Urine Bilirubin Negative Urine Urobilinogen Less than 2 Ur Leukocyte Esterase Negative Urine RBC Less than 1 Urine WBC 18 H Urine Bacteria Many H Urine Mucus Few H Micro UA Comment Cath-culture ind Urine Culture Comments Cath-cult indicated 01/14/18 01/14/18 01/15/18 16:40 17:53 00:18 WBC RBC Hgb Hct MCV MCH MCHC RDW Plt Count MPV Prelim Diff (Auto) Neut % (Auto) Lymph % (Auto) Bowman % (Auto) Eos % (Auto) Baso % (Auto) Neut # (Auto) Lymph # (Auto) Bowman # (Auto) Eos # (Auto) Baso # (Auto) WBC Differential Seg Neuts % (Manual) Band Neuts % (Manual) Lymphocytes % (Manual) Monocytes % (Manual) Metamyelocytes % (Man) Myelocytes % (Man) Abs Neuts (Manual) Differential Comment Platelet Estimate Platelet Morphology Sodium Potassium Chloride Carbon Dioxide Anion Gap BUN Creatinine Estimated GFR POC Glucose 126 H 114 H Random Glucose Calcium Phosphorus Magnesium Vitamin B12 1110 H Urine Color Urine Clarity Urine pH Ur Specific [place] Urine Protein Urine Glucose (UA) Urine Ketones Urine Occult Blood Urine Nitrate Urine Bilirubin Urine Urobilinogen Ur Leukocyte Esterase Urine RBC Urine WBC Urine Bacteria Urine Mucus Micro UA Comment Urine Culture Comments 01/15/18 01/15/18 01/15/18 04:45 04:45 06:09 WBC 9.6 RBC 3.22 L Hgb 10.2 L Hct 30.2 L MCV 93.7 MCH 31.6 MCHC 33.7 RDW 14.4 Plt Count 458 H MPV 9.0 Prelim Diff (Auto) Slide review pending Neut % (Auto) 66.6 Lymph % (Auto) 19.7 Bowman % (Auto) 11.6 H Eos % (Auto) 1.5 Baso % (Auto) 0.6 Neut # (Auto) 6.4 Lymph # (Auto) 1.9 Bowman # (Auto) 1.1 H Eos # (Auto) 0.1 Baso # (Auto) 0.1 WBC Differential Manual diff final Seg Neuts % (Manual) 55 Band Neuts % (Manual) 15 H Lymphocytes % (Manual) 11 Monocytes % (Manual) 10 H Metamyelocytes % (Man) 2 H Myelocytes % (Man) 7 H Abs Neuts (Manual) 7.6 Differential Comment . Platelet Estimate High H Platelet Morphology Normal Sodium 141 Potassium 2.9 L* Chloride 102 Carbon Dioxide 29.4 Anion Gap 10 BUN 15 Creatinine 0.37 L Estimated GFR Greater than 89 POC Glucose 129 H Random Glucose 111 H Calcium 9.0 Phosphorus 3.7 D Magnesium 1.7 Vitamin B12 Urine Color Urine Clarity Urine pH Ur Specific [place] Urine Protein Urine Glucose (UA) Urine Ketones Urine Occult Blood Urine Nitrate Urine Bilirubin Urine Urobilinogen Ur Leukocyte Esterase Urine RBC Urine WBC Urine Bacteria Urine Mucus Micro UA Comment Urine Culture Comments 01/15/18 13:15 WBC RBC Hgb Hct MCV MCH MCHC RDW Plt Count MPV Prelim Diff (Auto) Neut % (Auto) Lymph % (Auto) Bowman % (Auto) Eos % (Auto) Baso % (Auto) Neut # (Auto) Lymph # (Auto) Bowman # (Auto) Eos # (Auto) Baso # (Auto) WBC Differential Seg Neuts % (Manual) Band Neuts % (Manual) Lymphocytes % (Manual) Monocytes % (Manual) Metamyelocytes % (Man) Myelocytes % (Man) Abs Neuts (Manual) Differential Comment Platelet Estimate Platelet Morphology Sodium Potassium Chloride Carbon Dioxide Anion Gap BUN Creatinine Estimated GFR POC Glucose 112 H Random Glucose Calcium Phosphorus Magnesium Vitamin B12 Urine Color Urine Clarity Urine pH Ur Specific [place] Urine Protein Urine Glucose (UA) Urine Ketones Urine Occult Blood Urine Nitrate Urine Bilirubin Urine Urobilinogen Ur Leukocyte Esterase Urine RBC Urine WBC Urine Bacteria Urine Mucus Micro UA Comment Urine Culture Comments Microbiology 01/08/18 09:30 Tissue - Other Acid Fast Bacilli Smear - Final No acid fast bacilli seen 01/08/18 09:30 Tissue - Other Mycobacterial Culture - Preliminary No growth in 1 week 01/08/18 09:30 Tissue - Other Fungal Smear - Final No fungal elements seen 01/08/18 09:30 Tissue - Other Fungal Culture - Preliminary No growth in 1 week 01/14/18 01:00 Sputum - Tracheal Aspirate Gram Stain - Final 01/14/18 01:00 Sputum - Tracheal Aspirate Sputum Culture - Preliminary gram negative rods 01/14/18 00:10 Catheterized Urine Urine Culture - Preliminary gram negative rods - Imaging Impressions Head MRI 01/15/18 20:01 CONCLUSION: 1. Bilateral mastoiditis. 2. No acute intercranial findings. <Roya Valderrama - Last Filed: 01/15/18 15:15> - Labs CBC & Chem 7: 01/15/18 04:45 01/15/18 04:45 Laboratory Results - last 24 hr 01/14/18 01/14/18 01/14/18 00:10 16:40 16:40 WBC RBC Hgb Hct MCV MCH MCHC RDW Plt Count MPV Prelim Diff (Auto) Neut % (Auto) Lymph % (Auto) Bowman % (Auto) Eos % (Auto) Baso % (Auto) Neut # (Auto) Lymph # (Auto) Bowman # (Auto) Eos # (Auto) Baso # (Auto) WBC Differential Seg Neuts % (Manual) Band Neuts % (Manual) Lymphocytes % (Manual) Monocytes % (Manual) Metamyelocytes % (Man) Myelocytes % (Man) Abs Neuts (Manual) Differential Comment Platelet Estimate Platelet Morphology Sodium 140 Potassium 3.1 L D Chloride 102 Carbon Dioxide 29.1 Anion Gap 9 BUN 14 Creatinine 0.48 L Estimated GFR Greater than 89 POC Glucose Random Glucose 118 H Calcium 9.4 Phosphorus Magnesium 1.8 Vitamin B12 Urine Color Yellow Urine Clarity Hazy H Urine pH 6.0 Ur Specific [place] 1.010 Urine Protein Negative Urine Glucose (UA) Negative Urine Ketones Negative Urine Occult Blood Negative Urine Nitrate Negative Urine Bilirubin Negative Urine Urobilinogen Less than 2 Ur Leukocyte Esterase Negative Urine RBC Less than 1 Urine WBC 18 H Urine Bacteria Many H Urine Mucus Few H Micro UA Comment Cath-culture ind Urine Culture Comments Cath-cult indicated 01/14/18 01/14/18 01/15/18 16:40 17:53 00:18 WBC RBC Hgb Hct MCV MCH MCHC RDW Plt Count MPV Prelim Diff (Auto) Neut % (Auto) Lymph % (Auto) Bowman % (Auto) Eos % (Auto) Baso % (Auto) Neut # (Auto) Lymph # (Auto) Bowman # (Auto) Eos # (Auto) Baso # (Auto) WBC Differential Seg Neuts % (Manual) Band Neuts % (Manual) Lymphocytes % (Manual) Monocytes % (Manual) Metamyelocytes % (Man) Myelocytes % (Man) Abs Neuts (Manual) Differential Comment Platelet Estimate Platelet Morphology Sodium Potassium Chloride Carbon Dioxide Anion Gap BUN Creatinine Estimated GFR POC Glucose 126 H 114 H Random Glucose Calcium Phosphorus Magnesium Vitamin B12 1110 H Urine Color Urine Clarity Urine pH Ur Specific [place] Urine Protein Urine Glucose (UA) Urine Ketones Urine Occult Blood Urine Nitrate Urine Bilirubin Urine Urobilinogen Ur Leukocyte Esterase Urine RBC Urine WBC Urine Bacteria Urine Mucus Micro UA Comment Urine Culture Comments 01/15/18 01/15/18 01/15/18 04:45 04:45 06:09 WBC 9.6 RBC 3.22 L Hgb 10.2 L Hct 30.2 L MCV 93.7 MCH 31.6 MCHC 33.7 RDW 14.4 Plt Count 458 H MPV 9.0 Prelim Diff (Auto) Slide review pending Neut % (Auto) 66.6 Lymph % (Auto) 19.7 Bowman % (Auto) 11.6 H Eos % (Auto) 1.5 Baso % (Auto) 0.6 Neut # (Auto) 6.4 Lymph # (Auto) 1.9 Bowman # (Auto) 1.1 H Eos # (Auto) 0.1 Baso # (Auto) 0.1 WBC Differential Manual diff final Seg Neuts % (Manual) 55 Band Neuts % (Manual) 15 H Lymphocytes % (Manual) 11 Monocytes % (Manual) 10 H Metamyelocytes % (Man) 2 H Myelocytes % (Man) 7 H Abs Neuts (Manual) 7.6 Differential Comment . Platelet Estimate High H Platelet Morphology Normal Sodium 141 Potassium 2.9 L* Chloride 102 Carbon Dioxide 29.4 Anion Gap 10 BUN 15 Creatinine 0.37 L Estimated GFR Greater than 89 POC Glucose 129 H Random Glucose 111 H Calcium 9.0 Phosphorus 3.7 D Magnesium 1.7 Vitamin B12 Urine Color Urine Clarity Urine pH Ur Specific [place] Urine Protein Urine Glucose (UA) Urine Ketones Urine Occult Blood Urine Nitrate Urine Bilirubin Urine Urobilinogen Ur Leukocyte Esterase Urine RBC Urine WBC Urine Bacteria Urine Mucus Micro UA Comment Urine Culture Comments 01/15/18 13:15 WBC RBC Hgb Hct MCV MCH MCHC RDW Plt Count MPV Prelim Diff (Auto) Neut % (Auto) Lymph % (Auto) Bowman % (Auto) Eos % (Auto) Baso % (Auto) Neut # (Auto) Lymph # (Auto) Bowman # (Auto) Eos # (Auto) Baso # (Auto) WBC Differential Seg Neuts % (Manual) Band Neuts % (Manual) Lymphocytes % (Manual) Monocytes % (Manual) Metamyelocytes % (Man) Myelocytes % (Man) Abs Neuts (Manual) Differential Comment Platelet Estimate Platelet Morphology Sodium Potassium Chloride Carbon Dioxide Anion Gap BUN Creatinine Estimated GFR POC Glucose 112 H Random Glucose Calcium Phosphorus Magnesium Vitamin B12 Urine Color Urine Clarity Urine pH Ur Specific [place] Urine Protein Urine Glucose (UA) Urine Ketones Urine Occult Blood Urine Nitrate Urine Bilirubin Urine Urobilinogen Ur Leukocyte Esterase Urine RBC Urine WBC Urine Bacteria Urine Mucus Micro UA Comment Urine Culture Comments Microbiology 01/08/18 09:30 Tissue - Other Acid Fast Bacilli Smear - Final No acid fast bacilli seen 01/08/18 09:30 Tissue - Other Mycobacterial Culture - Preliminary No growth in 1 week 01/08/18 09:30 Tissue - Other Fungal Smear - Final No fungal elements seen 01/08/18 09:30 Tissue - Other Fungal Culture - Preliminary No growth in 1 week 01/14/18 01:00 Sputum - Tracheal Aspirate Gram Stain - Final 01/14/18 01:00 Sputum - Tracheal Aspirate Sputum Culture - Preliminary gram negative rods 01/14/18 00:10 Catheterized Urine Urine Culture - Preliminary gram negative rods - Imaging Impressions Head MRI 01/15/18 20:01 CONCLUSION: 1. Bilateral mastoiditis. 2. No acute intercranial findings. <Brennna Barrientos - Last Filed: 01/15/18 16:15> Assessment and Plan (1) PEG (percutaneous endoscopic gastrostomy) adjustment/replacement/removal Status: Acute Code(s): Z43.1 - Encounter for attention to gastrostomy - Plan This patient is a 62-year-old female who was admitted on 11/23/2017 with a diagnosis of colitis. Patient was found to have enterovirus. Patient was discharged to home on 12/11/2017 on p.o. vancomycin. Patient was readmitted to [facility] on 102 with reported altered mental status and hypoglycemia. Patient was then discharged on 102. Per patient's spouse, patient started to experience fatigue and was unable to return back to her home in [place] on 12/16/2017. Patient was then readmitted to [facility] on 12/17/2017 after being noted to be unarousable by her spouse. Upon admission chest x-ray revealed bilateral pulmonary infiltrates. Patient was noted to be unstable and hypotensive. Upon consultation, patient has tracheostomy tube and is mechanically ventilated. Right chest tube present. Fentanyl, propofol infusing. Sinus tach 104 BP 95/54 with saturation 98%. Patient currently has NG tube with a vital 1.5 at 55 mL's per hour as per nutritional recommendation. Patient has rectal tube-dignity shield expelling moderate amounts of brown liquid stool. Our service has been consulted to evaluate patient for PEG tube placement at this time 01/15/2018 PEG tube placement PEG tube in place dressing intact no signs of infection or drainage noted Tube feeding Jevity 1.5 at 30 mL's per hour-goal rate 55 mL's per hour. Patient tolerating well As per bedside RN, no residuals obtained. Plan -PEG tube feeding as per dietary -Residual checks as ordered -Free water flushes every 4 hours -Antiemetic and prokinetic as per attending -Supportive care -Aspiration precautions-had elevation -Bowel regimen -GI will sign off at this time, notify if needed This patient has been seen by myself and Dr. Barrientos and this note is written on his behalf - Attending Attestation Dr. Barrientos <Roya Valderrama - Last Filed: 01/15/18 15:15> (1) PEG (percutaneous endoscopic gastrostomy) adjustment/replacement/removal Status: Acute Code(s): Z43.1 - Encounter for attention to gastrostomy - Attending Attestation Agree with above assessment and plan. <Brennan Barrientos - Last Filed: 01/15/18 16:15>
--- NOTE | 2018-01-15 19:59 | MG ---
cc: Joce Crews MD ELECTROENCEPHALOGRAM NUMBER: [id number] CLINICAL HISTORY: Encephalopathy, old lacunar infarct, chronic pain. MEDICATIONS: Lasix. DESCRIPTION: Diffuse 6 Hz rhythms are noted to 60 microvolts. Head mild tremors are noted which shows muscle artifact. Recording overall is synchronous and symmetric. Blink artifact is seen. No hemisphere asymmetries are noted. No epileptiform or seizure activity is seen. Photic stimulation is performed without significant posterior driving. IMPRESSION: Diffuse 6 Hz slowing consistent with a mild to moderate diffuse encephalopathy, but no focal abnormality was noted and no seizure activity was seen. MD ANGELIA Kay/michael , 07:11 PM , 07:15 PM
[2018-01-16] MEDS: Insulin NovoLIN Regular Correctional Sugar Inj SQ SCH ×4 (00:07→18:11)
[2018-01-16] MEDS: Oral Hygiene Kit OROPHARYNG SCH ×4 (00:07→15:06)
[2018-01-16] MEDS: Dexmedetomidine Inj 200 MCG in Sodium Chlor 0.9% Inj 48 ML IV.CONT PRN ×5 (04:20→23:09)
--- NOTE | 2018-01-16 04:44 | XR ---
EXAM DATE: 01/16/2018 4:05 AM EST AGE/SEX: 62 years / Female INDICATIONS: Shortness of breath, possible pulmonary disease. CLINICAL DATA: This is the patient's subsequent encounter. Patient reports that signs and symptoms h ave been present for 1 month and indicates a pain score of Nonresponsive. MEDICAL/SURGICAL HISTORY: Hypertension. Hypercholesterolemia. Sepsis. Fusion, lumbar. Chest tube, right. Peg tube. Tracheostomy. COMPARISON: [facility], CHEST 1V SINGLE AP, 01/14/2018. . FINDINGS: 2 right-sided chest tubes present. Tracheostomy in good position. Stable interstitial prominence and patchy airspace disease on the right. No new effusion. Heart size normal. CONCLUSION: Stable exam with 2 right-sided chest tubes. No pneumothorax. No new infiltrate. Electronically signed by: Conner Quinonez MD 01/16/2018 4:43 AM EST
[2018-01-16] MEDS: Heparin - SQ 10,000 UNITS/ML Vial SQ SCH ×4 (04:54→23:05)
[2018-01-16 05:25] LABS: Baso # (Auto) 0.1 th/mm3 (0.0-0.2); Baso % (Auto) 0.7 % (0.0-2.0); Eos # (Auto) 0.1 th/mm3 (0.0-0.4); Eos % (Auto) 1.2 % (0.0-4.0); Hematocrit 29.3 % (35.0-46.0); Hemoglobin 9.9 gm/dL (11.6-15.3); Lymph # (Auto) 1.7 th/mm3 (1.0-4.8); Lymph % (Auto) 17.7 % (9.0-44.0); Mean Corpuscular HGB Conc 33.7 % (32.0-36.0); Mean Corpuscular Hemoglobin 31.2 pg (27.0-34.0); Mean Corpuscular Volume 92.5 fL (80.0-100.0); Mean Platelet Volume 8.8 fL (7.0-11.0); Mono # (Auto) 1.4 th/mm3 (0.0-0.9); Mono % (Auto) 15.1 % (0.0-8.0); Neut # (Auto) 6.2 th/mm3 (1.8-7.7); Neut % (Auto) 65.3 % (16.0-70.0); Platelet Count 509 th/mm3 (150-450); Red Blood Count 3.17 mil/mm3 (4.00-5.30); Red Cell Distribution Width 14.4 % (11.6-17.2); White Blood Count 9.5 th/mm3 (4.0-11.0)
[2018-01-16 05:48] LABS: Anion Gap 8 meq/L (5-15); Blood Urea Nitrogen 18 mg/dL (7-18); Calcium 8.4 mg/dL (8.5-10.1); Carbon Dioxide 27.1 meq/L (21.0-32.0); Chloride 104 meq/L (98-107); Glomerular Filtration Rate Greater Than 89 mL/min (>89); Glucose,Random 130 mg/dL (74-106); Magnesium 1.7 mg/dL (1.5-2.5); Phosphorus 3.4 mg/dL (2.5-4.9); Sodium 139 meq/L (136-145)
[2018-01-16] MEDS: Chlorhexidine 0.12% Oral Kit 15 ML UDC OROPHARYNG SCH ×2 (08:11→20:13)
[2018-01-16] MEDS: Sodium Chloride 0.9% 2 ML Flush BID IV.FLUSH SCH ×2 (08:12→20:13)
[2018-01-16] MEDS: Potassium Chloride 25 MEQ Effervescent Tablet NG/OG SCH (08:12)
[2018-01-16] MEDS: Famotidine 20 MG Tablet PO SCH ×2 (08:12→20:12)
[2018-01-16] MEDS: Senna/Docusate Sodium 8.6/50 MG Tablet PO SCH ×2 (08:13→20:12)
[2018-01-16] MEDS: Collagenase Oint 30 GM Tube TOPICAL SCH (08:14)
[2018-01-16] MEDS: Carboxymethylcellulose 0.5% Opth Drops 15 ML Bottle EACH EYE SCH ×2 (08:14→20:13)
[2018-01-16 08:46] LABS: Eosinophils 2 % (0-4); Lymphocytes 15 % (9-44); Monocytes 9 % (0-8); Myelocytes 3 % (0-0); Promyelocyte 3 % (0-0)
[2018-01-16 08:47] LABS: Platelet Morphology Normal (Normal)
--- NOTE | 2018-01-16 11:08 | P.PNNEU ---
Subjective Active Medications: Active Medications Acetaminophen (Tylenol Liq) 650 mg NG/OG Q6H PRN PRN Reason: FEVER Last Admin: 01/14/18 05:41 Dose: 650 mg Albuterol (Albuterol Neb (Prn)) 2.5 mg NEB Q2HR NEB PRN PRN Reason: DYSPNEA Last Admin: 01/15/18 03:58 Dose: 2.5 mg Albuterol (Duoneb Neb ([facility])) 1 ampul NEB Q6HR NEB [facility] Last Admin: 01/16/18 07:55 Dose: 1 ampul Artificial Tears (Refresh Tears 0.5% Opth Drops) 1 drop EACH EYE BID [facility] Last Admin: 01/16/18 08:14 Dose: 1 drop Bisacodyl (Dulcolax Supp) 10 mg RECTAL DAILY PRN PRN Reason: if no BM in last 24h Chlorhexidine Gluconate (Peridex 0.12% Oral Kit) 15 ml OROPHARYNG BID@0800, 2000 [facility] Last Admin: 01/16/18 08:11 Dose: 15 ml Collagenase (Santyl Oint) 1 applicatio TOPICAL DAILY [facility] Last Admin: 01/16/18 08:14 Dose: 1 applicatio Dextrose (D50w Vial) 50 ml IV.PUSH UNSCH PRN PRN Reason: PER HYPOGLYCEMIA PROTOCOL Famotidine (Pepcid) 20 mg PO BID [facility] Last Admin: 01/16/18 08:12 Dose: 20 mg Furosemide (Lasix Inj) 40 mg IV.PUSH DAILY [facility] Last Admin: 01/16/18 08:11 Dose: 40 mg Glucagon (Glucagon Inj) 1 mg OTHER PRN PRN PRN Reason: for Hypoglycemia Protocol Heparin Sodium (Porcine) (Heparin Inj) 5,000 units SQ Q8HR [facility] Last Admin: 01/16/18 06:15 Dose: Not Given Magnesium Sulfate 4 gm/ Sodium (Chloride) 100 mls @ 50 mls/hr IV.SIG UNSCH PRN PRN Reason: For Magnesium 0.9 - 1.1 mg/dL Magnesium Sulfate 2 gm/ Sodium (Chloride) 100 mls @ 50 mls/hr IV.SIG UNSCH PRN PRN Reason: For Magnesium 1.2 - 1.6 mg/dL Last Infusion: 01/02/18 18:23 Dose: Infused Potassium Chloride (Kcl 40 Meq Premix Inj) 40 meq in 100 mls @ 25 mls/hr IV.SIG Q2H PRN PRN Reason: For Potassium 2.8 - 3.2 mEq/L Last Infusion: 01/09/18 17:38 Dose: Infused Potassium Chloride (Kcl 20 Meq Premix Inj) 20 meq in 100 mls @ 50 mls/hr IV.SIG Q2H PRN PRN Reason: For Potassium 3.3 - 3.5 mEq/L Last Infusion: 01/06/18 15:52 Dose: Infused Potassium Chloride (Kcl 40 Meq Premix Inj) 40 meq in 100 mls @ 25 mls/hr IV.SIG UNSCH PRN PRN Reason: For Potassium 3.3 - 3.5 mEq/L Last Infusion: 12/29/17 12:09 Dose: Infused Potassium Chloride (Kcl 20 Meq Premix Inj) 20 meq in 100 mls @ 50 mls/hr IV.SIG Q2H PRN PRN Reason: For Potassium 2.8 - 3.2 mEq/L Last Infusion: 01/15/18 15:24 Dose: Infused Potassium Phosphate 30 mmol/ (Sodium Chloride) 260 mls @ 42 mls/hr IV.SIG UNSCH PRN PRN Reason: SEE LABEL COMMENTS Sodium Phosphate 30 mmol/ (Sodium Chloride) 260 mls @ 42 mls/hr IV.SIG UNSCH PRN PRN Reason: For Phosphorus < 2.5 mg/dL Last Infusion: 12/19/17 21:50 Dose: Infused Propofol (Diprivan 1000 Mg/100 Ml Inj) 1,000 mg in 100 mls @ 2.904 mls/hr IV.CONT TITRATE PRN; Protocol PRN Reason: Per Protocol Last Titration: 01/13/18 22:47 Dose: 0 mcg/kg/min, 0 mls/hr Dexmedetomidine HCl 200 mcg/ (Sodium Chloride) 50 mls @ 3.48 mls/hr IV.CONT TITRATE PRN; Protocol PRN Reason: Per Protocol Last Admin: 01/16/18 10:41 Dose: 0.7 mcg/kg/hr, 12.18 mls/hr Ceftriaxone Sodium 1,000 mg/ (Sodium Chloride) 100 mls @ 200 mls/hr IV.SIG Q24H [facility] Stop: 01/22/18 13:59 Last Infusion: 01/15/18 15:24 Dose: Infused Insulin Human Regular (Novolin R Correctional Sugar Inj) 0 units SQ Q6HR [facility]; Protocol Last Admin: 01/16/18 05:10 Dose: Not Given Lactulose (Lactulose Liq) 30 ml PO BID [facility] Last Admin: 01/16/18 08:12 Dose: 30 ml Lactulose (Lactulose Liq) 30 ml PO QID PRN PRN Reason: SEVERE CONSITIPATION Magnesium Oxide (Mag-Ox) 800 mg PO UNSCH PRN PRN Reason: For Magnesium 1.2 - 1.6 mg/dL Metoclopramide HCl (Reglan Inj) 5 mg IV.PUSH Q8HR [facility]; Protocol Last Admin: 01/16/18 06:15 Dose: Not Given Metoprolol Tartrate (Lopressor Inj) 5 mg IV.PUSH Q6H PRN PRN Reason: HR>100 Last Admin: 01/13/18 14:56 Dose: 5 mg Miscellaneous Medication () 1 each OROPHARYNG 0000,0400,1200,1600 [facility] Last Admin: 01/16/18 04:56 Dose: 1 each Ondansetron HCl (Zofran Inj) 4 mg IV.PUSH Q6H PRN PRN Reason: NAUSEA OR VOMITING Potassium Bicarb/Potassium Chloride (K-Lyte Cl Eff) 50 meq PO UNSCH PRN PRN Reason: For Potassium 3.3 - 3.5 mEq/L Last Admin: 01/15/18 08:13 Dose: 50 meq Potassium Bicarb/Potassium Chloride (K-Lyte Cl Eff) 40 meq NG/OG DAILY [facility] Last Admin: 01/16/18 08:12 Dose: 40 meq Potassium Phosphate (K-Phos Original) 2,000 mg PO Q4H PRN PRN Reason: Phosphorus Less Than 2.5 mg/dL Last Admin: 12/25/17 02:42 Dose: 2,000 mg Potassium Phosphate (K-Phos Original) 2,000 mg PO UNSCH PRN PRN Reason: SEE LABEL COMMENTS Last Admin: 12/24/17 19:29 Dose: 2,000 mg Pravastatin Sodium (Pravachol) 40 mg PO DAILY [facility] Last Admin: 01/16/18 08:14 Dose: 40 mg Quetiapine Fumarate (Seroquel) 25 mg PO HS [facility] Last Admin: 01/13/18 21:00 Dose: 25 mg Senna/Docusate Sodium (Kaylyn-Colace) 1 tab PO BID [facility] Last Admin: 01/16/18 08:13 Dose: Not Given Sodium Chloride (Ns Flush) 2 ml IV.FLUSH UNSCH PRN PRN Reason: FLUSH AFTER USING IV ACCESS Last Admin: 01/10/18 09:30 Dose: 2 ml Sodium Chloride (Ns Flush) 2 ml IV.FLUSH BID [facility] Last Admin: 01/16/18 08:12 Dose: 2 ml Sodium Chloride (Ns Flush) 2 ml IV.FLUSH BID [facility] Last Admin: 01/16/18 08:12 Dose: 2 ml Sodium Chloride (Ns Flush) 2 ml IV.FLUSH PRN PRN PRN Reason: FLUSH AFTER USING IV ACCESS Valproate Sodium (Depakene Liq) 500 mg NG/OG TID [facility] Last Admin: 01/16/18 08:11 Dose: 500 mg Allergies/Adverse Reactions: Allergies Allergy/AdvReac Type Severity Reaction Status Date / Time No Known Allergies Allergy Verified 12/13/17 08:04 Physical Exam Vital signs: Vital Signs 01/15/18 11:18 01/15/18 11:30 01/15/18 12:00 Temperature Pulse Rate 82 79 Respiratory Rate 29 H 24 Blood Pressure 178/93 H Pulse Oximetry 100 100 99 01/15/18 12:43 01/15/18 13:00 01/15/18 14:00 Temperature Pulse Rate 84 85 81 Respiratory Rate 26 H 26 H 26 H Blood Pressure 175/93 H Pulse Oximetry 100 100 100 01/15/18 14:07 01/15/18 14:09 01/15/18 15:00 Temperature Pulse Rate 87 84 57 L Respiratory Rate 29 H 28 H 24 Blood Pressure 175/100 H 176/85 H Pulse Oximetry 100 100 100 01/15/18 15:01 01/15/18 15:49 01/15/18 16:00 Temperature Pulse Rate 60 80 80 Respiratory Rate 24 23 26 H Blood Pressure 167/73 H 181/94 H Pulse Oximetry 100 100 100 01/15/18 17:00 01/15/18 18:00 01/15/18 19:00 Temperature Pulse Rate 99 H 101 H Respiratory Rate 27 H Blood Pressure 134/60 Pulse Oximetry 100 01/15/18 19:01 01/15/18 20:00 01/15/18 21:00 Temperature 99.7 F H Pulse Rate 99 H 97 H 88 Respiratory Rate 25 H 23 20 Blood Pressure 147/93 H 145/67 H 148/70 H Pulse Oximetry 100 100 100 01/15/18 21:25 01/15/18 21:27 01/15/18 22:00 Temperature Pulse Rate 94 H 101 H Respiratory Rate 20 22 23 Blood Pressure 144/65 H Pulse Oximetry 100 100 01/15/18 23:00 01/16/18 00:00 01/16/18 00:31 Temperature 100.3 F H Pulse Rate 95 H 83 Respiratory Rate 24 21 23 Blood Pressure 133/60 167/69 H Pulse Oximetry 100 100 99 01/16/18 01:00 01/16/18 02:00 01/16/18 03:00 Temperature Pulse Rate 90 84 86 Respiratory Rate 22 20 21 Blood Pressure 152/72 H 139/65 136/60 Pulse Oximetry 99 99 99 01/16/18 04:00 01/16/18 04:28 01/16/18 05:00 Temperature 98.7 F Pulse Rate 81 80 102 H Respiratory Rate 23 21 27 H Blood Pressure 154/77 H 149/78 H Pulse Oximetry 100 100 100 01/16/18 06:00 01/16/18 07:53 01/16/18 07:55 Temperature Pulse Rate 89 92 H Respiratory Rate 21 23 Blood Pressure Pulse Oximetry 100 01/16/18 08:00 Temperature 98.9 F Pulse Rate 82 Respiratory Rate 22 Blood Pressure 164/79 H Pulse Oximetry 100 Intake & Output 01/15/18 01/16/18 01/16/18 18:59 06:59 18:59 Intake Total 897 / 897 850.6 / 850.6 34.4 / 34.4 Output Total 1575 / 1575 650 / 650 Balance -678 / -678 200.6 / 200.6 34.4 / 34.4 Weight 65.4 kg Intake: IV 400 / 400 115.6 / 115.6 34.4 / 34.4 Precedex Inj 200 MCG In NS Inj 100 / 100 115.6 / 115.6 34.4 / 34.4 48 ML @ 0.2 MCG/KG/HR 3.48 mls/ hr IV.CONT TITRATE PRN Rx#: [id number] KCl 20 mEq Premix Inj 20 meq In 200 / 200 100 ml @ 50 mls/hr IV.SIG Q2H PRN Rx#:[id number] Rocephin Inj 1,000 MG In NS Inj 100 / 100 100 ML @ 200 mls/hr IV.SIG Q24H [facility] Rx#:[id number] Tube Feeding 317 / 317 535 / 535 Tube Irrigant 180 / 180 Water Bolus Amount 200 / 200 Output: Stool 900 / 900 50 / 50 Urine Amount (Catheter) 675 / 675 600 / 600 Female External 675 / 675 0 / 0 Straight 600 / 600 Chest Tube Drainage 0 / 0 0 / 0 Right Y Connected 0 / 0 0 / 0 Other: Date of Last Bowel Movement 01/16/18 01/16/18 Narrative: awake looks at me and tracks wiggle r foot for me not left tremors shoulderand jaw fine - Urinary Catheter Management Indwelling Urethral Catheter Cath placed during this visit: yes, but has since been removed by the nurse Reason for continuing: Not indwelling catheter Insertion date: 01/08/18 Insertion time: 08:00 Removal date: 01/08/18 Removal time: 18:00 Straight Cath placed during this visit: yes, but has since been removed by the nurse Reason for continuing: Hourly intake/output Insertion date: 01/08/18 Insertion time: 08:00 Removal date: 12/23/17 Removal time: 00:00 Female External Cath placed during this visit: no Objective Laboratory Results - last 24 hr 01/14/18 01/15/18 01/15/18 00:10 13:15 17:22 WBC RBC Hgb Hct MCV MCH MCHC RDW Plt Count MPV Prelim Diff (Auto) Neut % (Auto) Lymph % (Auto) Ogle % (Auto) Eos % (Auto) Baso % (Auto) Neut # (Auto) Lymph # (Auto) Ogle # (Auto) Eos # (Auto) Baso # (Auto) WBC Differential Seg Neuts % (Manual) Band Neuts % (Manual) Lymphocytes % (Manual) Monocytes % (Manual) Eosinophils % (Manual) Myelocytes % (Man) Promyelocytes % (Man) Abs Neuts (Manual) Differential Comment Platelet Estimate Platelet Morphology Sodium Potassium Chloride Carbon Dioxide Anion Gap BUN Creatinine Estimated GFR POC Glucose 112 H 107 Random Glucose Calcium Phosphorus Magnesium Urine Color Yellow Urine Clarity Hazy H Urine pH 6.0 Ur Specific Surveyor 1.010 Urine Protein Negative Urine Glucose (UA) Negative Urine Ketones Negative Urine Occult Blood Negative Urine Nitrate Negative Urine Bilirubin Negative Urine Urobilinogen Less than 2 Ur Leukocyte Esterase Negative Urine RBC Less than 1 Urine WBC 18 H Urine Bacteria Many H Urine Mucus Few H Micro UA Comment Cath-culture ind Urine Culture Comments Cath-cult indicated 01/15/18 01/16/18 01/16/18 18:35 00:06 04:44 WBC 9.5 RBC 3.17 L Hgb 9.9 L Hct 29.3 L MCV 92.5 MCH 31.2 MCHC 33.7 RDW 14.4 Plt Count 509 H MPV 8.8 Prelim Diff (Auto) Slide review pending Neut % (Auto) 65.3 Lymph % (Auto) 17.7 Ogle % (Auto) 15.1 H Eos % (Auto) 1.2 Baso % (Auto) 0.7 Neut # (Auto) 6.2 Lymph # (Auto) 1.7 Ogle # (Auto) 1.4 H Eos # (Auto) 0.1 Baso # (Auto) 0.1 WBC Differential Manual diff final Seg Neuts % (Manual) 60 Band Neuts % (Manual) 8 H Lymphocytes % (Manual) 15 Monocytes % (Manual) 9 H Eosinophils % (Manual) 2 Myelocytes % (Man) 3 H Promyelocytes % (Man) 3 H Abs Neuts (Manual) 7.0 Differential Comment . Platelet Estimate High H Platelet Morphology Normal Sodium Potassium 4.6 D Chloride Carbon Dioxide Anion Gap BUN Creatinine Estimated GFR POC Glucose 131 H Random Glucose Calcium Phosphorus Magnesium Urine Color Urine Clarity Urine pH Ur Specific Surveyor Urine Protein Urine Glucose (UA) Urine Ketones Urine Occult Blood Urine Nitrate Urine Bilirubin Urine Urobilinogen Ur Leukocyte Esterase Urine RBC Urine WBC Urine Bacteria Urine Mucus Micro UA Comment Urine Culture Comments 01/16/18 01/16/18 04:44 05:09 WBC RBC Hgb Hct MCV MCH MCHC RDW Plt Count MPV Prelim Diff (Auto) Neut % (Auto) Lymph % (Auto) Ogle % (Auto) Eos % (Auto) Baso % (Auto) Neut # (Auto) Lymph # (Auto) Ogle # (Auto) Eos # (Auto) Baso # (Auto) WBC Differential Seg Neuts % (Manual) Band Neuts % (Manual) Lymphocytes % (Manual) Monocytes % (Manual) Eosinophils % (Manual) Myelocytes % (Man) Promyelocytes % (Man) Abs Neuts (Manual) Differential Comment Platelet Estimate Platelet Morphology Sodium 139 Potassium 4.0 Chloride 104 Carbon Dioxide 27.1 Anion Gap 8 BUN 18 Creatinine 0.37 L Estimated GFR Greater than 89 POC Glucose 128 H Random Glucose 130 H Calcium 8.4 L Phosphorus 3.4 Magnesium 1.7 Urine Color Urine Clarity Urine pH Ur Specific Surveyor Urine Protein Urine Glucose (UA) Urine Ketones Urine Occult Blood Urine Nitrate Urine Bilirubin Urine Urobilinogen Ur Leukocyte Esterase Urine RBC Urine WBC Urine Bacteria Urine Mucus Micro UA Comment Urine Culture Comments Microbiology 01/14/18 00:10 Urine Culture - Final Catheterized Urine Klebsiella pneumoniae ESBL pos 01/08/18 09:30 Acid Fast Bacilli Smear - Final Tissue - Other No acid fast bacilli seen Mycobacterial Culture - Preliminary No growth in 1 week 01/08/18 09:30 Fungal Smear - Final Tissue - Other No fungal elements seen Fungal Culture - Preliminary No growth in 1 week 01/14/18 01:00 Gram Stain - Final Sputum - Tracheal Aspirate Sputum Culture - Preliminary gram negative rods Review/Management - Review/Management Plan: 01/16/18 labs ok mri brain and eeg neg looks much better check b1 cpk abg unclear if could have icu neuromyopathy would like to see her move more on vpa level ok seroquel on hold
--- NOTE | 2018-01-16 11:22 | P.PNCC ---
Subjective Subjective Remarks/Hospital Course: This is a 62yF who was originally admitted on 11/23 with a diagnosis of colitis, found to have enterovirus. discharged on 12/11 at that time on PO vancomycin, but came back on 12/13 with altered mental status and hypoglycemia, again discharged on 12/15. She was mildly fatigued on 12/16 according to her and asked to wait another day before traveling back to her home in [place]. This morning, she was unarousable and her called 911. She was intubated upon arrival to the emergency department for agonal respirations. CXR demonstrates bilateral multifocal pneumonia. She is febrile, hypotensive. CVL placed in the ER and vasopressors initiated after 2L bolus crystalloid. CT chest/abd/pelvis demonstrates right pneumothorax, densely consolidated right lower lobe, bilateral pulmonary infiltrates, evidence of ongoing colitis. Patient continue to be unstable. Immediately after identifying ptx on CT scan, I emergently placed right chest tube with some improvements in hemodynamics, but ongoing distributive shock persists. I placed arterial line. No additional information available from the patient, ROS unobtainable. In discussion with the , she has not had any new complaints in the 48h she was home, and other than mild fatigue last night, no new complaints. She was able to walk to the bathroom without assistance yesterday. 12/18: shock remains. now on levophed, vasopressin, phenylephrine. second chest tube placed overnight for worsening SQ air. acidosis remains and is severe. 12/19: Afebrile. Remains on vasopressin drip only. On stress dose hydrocortisone. Evaluated by CT surgery. Not a candidate for intervention at the present time. Chest tube continues to leak. Epoprostenol added today 12/20: Afebrile. FiO2 has decreased and is currently 70%. Currently replacing potassium, phosphorus and magnesium. Recheck later this afternoon. Less chest tube leak today down to 1 chamber. 12/21: Overnight, worsening subcutaneous emphysema. A third chest tube placed by overnight welding pantograph operator after discussion with cardiothoracic surgery. Currently hemodynamically stable. Replacing phosphorus today. To be evaluated by CT surgery today. 12/22: Remains sedated, orally intubated on mechanical ventilation. Persistent air leak and chest tube noted. 12/23: Remains sedated, orally intubated on mechanical ventilation. Air leak persists though slightly improved. PEEP at +5 FiO2 55%, inhaled Flolan continues. Central line replaced with right IJ triple-lumen catheter. 12/24: Remains sedated, orally intubated on mechanical ventilation. 1+ air leak from chest tube 3 noted. PEEP +5, FiO2 60%, inhaled Flolan continues. Decreasing subcutaneous emphysema noted. 12/25: Remains sedated, orally improved on mechanical ventilation. 1+ for leak from chest tube 2. PEEP +5, FiO2 50%. Starting to titrate inhaled Flolan down today. Initiating Lasix to mobilize fluid. 12/26: remains intubated. air leak continues from chest tube #3. drainage out of #1 and #2 are very serous. #1 was removed by myself today. all chest tube dressings changed by me today. repeat CXR pending. very volume overloaded. starting to diurese. off vasopressors. off pathway: still high fio2 requirements. 12/27: good diuresis overnight. very hypokalemic today and aggressively replacing. CXR unchanged. air leak unchanged. long discussion over long-term and short-term prognosis and plan of care with entire family today. all questions answered. 12/28: Continues to diurese. Remains on mechanical ventilation. Positive air leak in chest tube 3. 1 unit PRBCs transfused earlier for hemoglobin 6.9. 12/29: Remains on mechanical ventilation. Increasing subcutaneous emphysema noted. Air leak stopped and chest tube #2 and 3 currently. Flolan being titrated down. Chest x-ray shows appropriate positioning of 2 chest tubes with the more medial small right pneumothorax with significant subcutaneous emphysema bilaterally. Patient remains off pressors and is being diuresed to mobilize fluid. 12/30: volume removal continues. Cr still at baseline. fio2 down to 40% and off inhaled Flolan. discussed with Dr. Lynn: will need to wait at least until next week for VATS. Will need trach going forward: discussed with family and they are agreeable. Dr. Lynn asked that both chest tubes remain in place. air leak persists. remains intubated and sedated. 12/31: Sedated, orally intubated on mechanical ventilation. On 40% FiO2 PEEP + 5. Positive air leak in chest tube [address] surgery planning for VATS next week, will need tracheostomy coordinated as well. 01/01: Remains sedated, orally intubated on mechanical ventilation. PEEP +5, FiO2 35%. Being diuresed. 01/02: Sedated, orally intubated on mechanical ventilation. PEEP +5, FiO2 35%. Intermittent air leak in chest tube 3. Being diuresed 01/03: persistent air leak. hypoxia improving. discussed case with Dr. Lynn- he would like pre-operative CT chest for surgical planning. we also discussed timing of tracheostomy: it would be easier surgically to have ett in place to place double-lumen ett, so he would prefer to keep ett until after operation, and then proceed with tracheostomy. tentatively VATS planned for Friday 01/05. 01/04: No events over the night. Patient remains sedated and intubated, sedation achieved with fentanyl and propofol. T-max of 100.2 over the last 24 hours. I/O 3770/3130. Chest tubes remain on suction. 01/05: T-max 99.3. Currently afebrile. Difficulty with weaning from ventilator noted. VATS currently on hold per CT surgery. 01/06: Resting comfortably in bed in no acute distress. Plan for thoracotomy rested on Thursday night. Currently on CPAP trial. Potassium being replaced. 01/07: Resting complaint bed in no acute distress. Plan for thoracotomy tomorrow a.m. 730. Currently on CPAP trial. Transfuse when he PRBC today. Hemoglobin currently 9.6 potassium 3.9. 01/08: Today, status post right thoracoscopic decortication, closure of bronchopleural fistula with debridement and irrigation of the prior chest tube wounds with placement of 2 #32 Guatemalan chest tubes by cardiothoracic surgery patellar procedure well. EBL 250. Adequate urine output. Appears stable. 01/09: T-max 100.2. Currently tachycardic. Receiving 2 units PRBCs. Potassium being replaced. Agitated on the ventilator. 01/10: Twitching on the ventilator/tremor. Temperature max 100.2. 120 cc output from chest tube overnight. Still not arousable/following commands on the ventilator. Likely tracheostomy Subjective 01/11: T-max 100.5. Status post #8 Shiley practice tracheostomy today. Order PEG tube for tomorrow. Arousable but not following commands. Thrashes back and forth. 01/12: T-max 100.4. Plan to initiate CPAP trials today. Patient does not follow commands, but does track movement. IV antibiotics discontinued yesterday Zosyn and micafungin. The patient continues on p.o. Vanco. Case discussed with CT surgery plan for continuation chest tubes until placed on trach collar. 01/13: No acute events overnight. Patient underwent PEG placement this afternoon. Remains n.p.o. 6 hours post PEG. During sedation vacation the patient becomes extremely agitated and tachycardic. Right chest tube continues on 20 cm of water suction. 01/14: Sedation vacation underway. Patient noted to have spontaneous eye opening and spontaneous movement of lower extremities but not responding to any commands and no visual tracking. EEG has been ordered. Neurology has been consulted. Noted ammonia level less than 10 this a.m. propofol and fentanyl sedation has been discontinued since yesterday. The patient will remain on Precedex to maintain ventilator synchrony but currently undergoing sedation vacation for accurate neurological assessment. The patient has been initiated on CPAP trials. 01/15: No acute changes in neurological status. Noted spontaneous eye opening today MRI performed which showed no acute intracranial abnormality. Urine culture resulted UTI gram-negative rods, Rocephin 7-day medication regimen added. The patient tolerated CPAP trials for approximately 9.5 hours yesterday. The patient continues on CPAP trials today. 01/16: The patient is noted to be awake and alert smiling nodding head to yes and no questions today. Follow commands for SOW FARM MANAGER and by squeezing hands no movement of lower extremities noted . PEG tube site without erythema, tolerating tube feeds. Urine culture results Klebsiella ESBL, Patient Continues with a Purewick urinary drainage device. No change in chest x-ray, right chest tubes continue on suction. Objective Vital Signs / I&O: Vital Signs 01/15/18 11:18 01/15/18 11:30 01/15/18 12:00 Temperature Pulse Rate 82 79 Respiratory Rate 29 H 24 Blood Pressure 178/93 H Pulse Oximetry 100 100 99 01/15/18 12:43 01/15/18 13:00 01/15/18 14:00 Temperature Pulse Rate 84 85 81 Respiratory Rate 26 H 26 H 26 H Blood Pressure 175/93 H Pulse Oximetry 100 100 100 01/15/18 14:07 01/15/18 14:09 01/15/18 15:00 Temperature Pulse Rate 87 84 57 L Respiratory Rate 29 H 28 H 24 Blood Pressure 175/100 H 176/85 H Pulse Oximetry 100 100 100 01/15/18 15:01 01/15/18 15:49 01/15/18 16:00 Temperature Pulse Rate 60 80 80 Respiratory Rate 24 23 26 H Blood Pressure 167/73 H 181/94 H Pulse Oximetry 100 100 100 01/15/18 17:00 01/15/18 18:00 01/15/18 19:00 Temperature Pulse Rate 99 H 101 H Respiratory Rate 27 H Blood Pressure 134/60 Pulse Oximetry 100 01/15/18 19:01 01/15/18 20:00 01/15/18 21:00 Temperature 99.7 F H Pulse Rate 99 H 97 H 88 Respiratory Rate 25 H 23 20 Blood Pressure 147/93 H 145/67 H 148/70 H Pulse Oximetry 100 100 100 01/15/18 21:25 01/15/18 21:27 01/15/18 22:00 Temperature Pulse Rate 94 H 101 H Respiratory Rate 20 22 23 Blood Pressure 144/65 H Pulse Oximetry 100 100 01/15/18 23:00 01/16/18 00:00 01/16/18 00:31 Temperature 100.3 F H Pulse Rate 95 H 83 Respiratory Rate 24 21 23 Blood Pressure 133/60 167/69 H Pulse Oximetry 100 100 99 01/16/18 01:00 01/16/18 02:00 01/16/18 03:00 Temperature Pulse Rate 90 84 86 Respiratory Rate 22 20 21 Blood Pressure 152/72 H 139/65 136/60 Pulse Oximetry 99 99 99 01/16/18 04:00 01/16/18 04:28 01/16/18 05:00 Temperature 98.7 F Pulse Rate 81 80 102 H Respiratory Rate 23 21 27 H Blood Pressure 154/77 H 149/78 H Pulse Oximetry 100 100 100 01/16/18 06:00 01/16/18 07:53 01/16/18 07:55 Temperature Pulse Rate 89 92 H Respiratory Rate 21 23 Blood Pressure Pulse Oximetry 100 01/16/18 08:00 Temperature 98.9 F Pulse Rate 82 Respiratory Rate 22 Blood Pressure 164/79 H Pulse Oximetry 100 Intake & Output 01/15/18 01/16/18 01/16/18 18:59 06:59 18:59 Intake Total 897 / 897 850.6 / 850.6 34.4 / 34.4 Output Total 1575 / 1575 650 / 650 Balance -678 / -678 200.6 / 200.6 34.4 / 34.4 Weight 65.4 kg Intake: IV 400 / 400 115.6 / 115.6 34.4 / 34.4 Precedex Inj 200 MCG In NS Inj 100 / 100 115.6 / 115.6 34.4 / 34.4 48 ML @ 0.2 MCG/KG/HR 3.48 mls/ hr IV.CONT TITRATE PRN Rx#: [id number] KCl 20 mEq Premix Inj 20 meq In 200 / 200 100 ml @ 50 mls/hr IV.SIG Q2H PRN Rx#:[id number] Rocephin Inj 1,000 MG In NS Inj 100 / 100 100 ML @ 200 mls/hr IV.SIG Q24H BENJAMIN Rx#:[id number] Tube Feeding 317 / 317 535 / 535 Tube Irrigant 180 / 180 Water Bolus Amount 200 / 200 Output: Stool 900 / 900 50 / 50 Urine Amount (Catheter) 675 / 675 600 / 600 Female External 675 / 675 0 / 0 Straight 600 / 600 Chest Tube Drainage 0 / 0 0 / 0 Right Y Connected 0 / 0 0 / 0 Other: Date of Last Bowel Movement 01/16/18 01/16/18 Result Diagrams: 01/16/18 04:44 01/16/18 04:44 Objective Remarks: GENERAL: Middle-aged lady, intubated and, chronically ill-appearing , smiling, nodding head to yes and no questions HEENT: Pupils are equal and reactive, sclerae are anicteric, status post tracheostomy on 01/11 NECK: Supple, no rigidity, no neck vein distention, no carotid bruit, tracheostomy site without bleeding. CHEST: Coarse breath sounds bilateral, no wheezes, currently no subcu emphysema. 1 dual right-sided chest tubes on suction, -190 cc past 24 hours no air leak noted CARDIOVASCULAR: Regular regular rate and rhythm, no murmurs appreciated ABDOMEN: Soft, nontender, nondistended, bowel sounds present, no hepatomegaly or splenomegaly appreciated MUSCULOSKELETAL: Extremities are warm and well perfused, peripheral pulses are present, 2+ pitting edema NEUROLOGICAL: Continues on low-dose Precedex .tracheostomy site without erythema or drainage. spontaneous eye opening nodding head to yes and no questions., visual tracking noted today. Pupils are equal and reactive, no gaze deviation. No movement of lower extremities upon command. Assessment and Plan - Assessment and Plan Plan: Neuro/Psych: Acute metabolic encephalopathy Possible seizure disorder Critical illness polyneuropathy ? Dexmedetomidine infusion for maintenance of ventilator synchrony Daily sedation vacation. Goal RASS -2 She was started on anticonvulsants on her initial admission 11/23. Valproic acid 500 mg 3 times daily. Recheck valproic acid level subtherapeutic Head CT 12/17- for acute disease EEG - Diffuse slowing consistent with a moderate diffuse encephalopathy. No epileptiform activity. Repeat 01/10 Acetaminophen 650 by tube every 6 hours as needed fever 01/13 Held quetiapine 25 mg daily/home medication Holding tizanidine 4 mg daily 01/14 repeat EEG, neurology has been consulted Trend ammonia level 01/15 MRI brain-no acute intracranial abnormality Patient awake smiling nodding to yes and no questions however unable to move extremities-per neurology possible critical illness neuropathy Respiratory: Right thoracoscopic decortication, closure of bronchopleural fistula, debridement and irrigation of the prior chest tube wounds and placement of #2 32 [place] chest tubes 01/13 Acute hypoxic and hypercarbic respiratory failure- persistent Acute severe bilateral multifocal healthcare associated pneumonia Possible aspiration pneumonia Spontaneous right-sided tension pneumothorax Subcutaneous Emphysema CT surgery/Dr. Marquez following. CT thorax overnight 12/12 revealed significant 3.7 cm moderate right pneumothorax without tension. Pneumopericardium and significant subcutaneous emphysema. Vent bundle and bronchodilators PRVC mode 450/14/35% PEEP of 5 Epoprostanol added 12/19, removed 12/29. Albuterol/ipratropium aerosols every 4 hours with albuterol aerosols every 2 hours as needed dyspnea Duo nebs scheduled every 6 hours Wean FiO2 for goal SPO2 greater than 90% Daily CXR 01/14-CPAP trials initiated, patient averaging 9.5 hours Cardiovascular: Septic shock- resolved Elevated troponin Type II NSTEMI secondary to demand ischemia Hyperlipidemia Holding lisinopril 30 mg daily/home medication. For dyslipidemia resume pravastatin 40 mg daily when clinically indicated Continue hydrocortisone wean Furosemide 40 mg IV daily diuresis. Renal: Acute kidney injury (resolved) Secondary to shock, off pressors Frequent urine output monitoring Daily creatinine KVO IV fluid. Furosemide 40 mg IV daily Strict I/Os FEN/GI: Acute protein calorie malnutritionsevere Lactic acidosis- resolved Severe colitis Enterovirus colitis Hyperammonemia-resolved 01/14 Hold lactulose 30 cc twice daily Tube feeding with vital 1.5 goal 55 cc now. Metoclopramide 5 mg 3 times daily. Starting today 01/12 post tracheostomy ICU electrolyte protocol Daily BMP, magnesium, phosphorus Lactulose/polythene glycol twice daily Holding dicyclomine 20 mg 3 times daily 01/13 status post PEG tube placement Vital high tube feeds 60cc/hr Heme/ID: C. difficile colitis Enterovirus colitis Septic shock Healthcare associated multifocal pneumonia Possible gram-positive cocci bacteremia Early empyema Urosepsis-Klebsiella ESBL 01/14 1 unit PRBCs transfused on 12/28 for hemoglobin 6.9, recheck CBC and transfuse to keep hemoglobin above 8 g% Transfuse 1 unit PRBCs 01/07.. Transfuse 2 units PRBCs 01/09 Vancomycin p.o. with pharmacy dosing C. difficile continue [id number] piperacillin/tazobactam and micafungin Bronchoscopy 12/19 with Klebsiella Pleural fluid 12/19 with Klebsiella's/Karla Pleural fluid 12/17 -g Karla albicans/glabrata Klebsiella, lactobacillus 12/17 -sputum -Klebsiella 12/17 blood-strep viridians/coag negative staph Infectious disease consulted and following. IV antibiotics micafungin and Zosyn discontinued 01/11. P.O. vancomycin continued 01/15 urine culturegram-negative rods, patient continues with purewick urinary drainage system Endocrine: Acute hypoglycemia- resolving. Sliding scale insulin Accu-Cheks every 6 hours to maintain euglycemia Prophylaxis: GI Prophylaxis Famotidine DVT Prophylaxis -- SCDs Subcu heparin Lines: 12/17 femoral triple-lumen catheter discontinued 12/23 12/17 right radial arterial line discontinued 12/21 12/17 right 28 Guatemalan chest tube to -40 cm suction: removed 12/26 12/17 right 32 Guatemalan chest tube to -40 cm suction removed 01/08 12/19 -right #32 Guatemalan chest tube to -40 cm suction removed 01/08 Right IJ cordis with dual-lumen 01/08 removed 01/11. Continue with dual chest tube on right side placed 01/08 Level 2 follow-up Discussed Condition With: Patient's and SOW FARM MANAGER at bedside
[2018-01-16 14:58] LABS: ABG Base Excess 2.3 mmol/L (-2-2); ABG PCO2 32 mmHg (38-42); ABG PO2 108 mmHG (61-120)
--- NOTE | 2018-01-16 16:07 | P.PNID ---
Subjective Remarks: ID COVERAGE: Called about positive urine culture with ESBL Klebsiella on vent. No distress. afebrile Antibiotics: Ceftriaxone Lines: Lines ok Past Medical History: reviewed Allergies/Adverse Reactions: Allergies No Known Allergies Allergy (Verified 12/13/17 08:04) Objective Vital Signs 01/15/18 17:00 01/15/18 18:00 01/15/18 19:00 Temperature Pulse Rate 99 H 101 H Respiratory Rate 27 H Blood Pressure 134/60 Pulse Oximetry 100 01/15/18 19:01 01/15/18 20:00 01/15/18 21:00 Temperature 99.7 F H Pulse Rate 99 H 97 H 88 Respiratory Rate 25 H 23 20 Blood Pressure 147/93 H 145/67 H 148/70 H Pulse Oximetry 100 100 100 01/15/18 21:25 01/15/18 21:27 01/15/18 22:00 Temperature Pulse Rate 94 H 101 H Respiratory Rate 20 22 23 Blood Pressure 144/65 H Pulse Oximetry 100 100 01/15/18 23:00 01/16/18 00:00 01/16/18 00:31 Temperature 100.3 F H Pulse Rate 95 H 83 Respiratory Rate 24 21 23 Blood Pressure 133/60 167/69 H Pulse Oximetry 100 100 99 01/16/18 01:00 01/16/18 02:00 01/16/18 03:00 Temperature Pulse Rate 90 84 86 Respiratory Rate 22 20 21 Blood Pressure 152/72 H 139/65 136/60 Pulse Oximetry 99 99 99 01/16/18 04:00 01/16/18 04:28 01/16/18 05:00 Temperature 98.7 F Pulse Rate 81 80 102 H Respiratory Rate 23 21 27 H Blood Pressure 154/77 H 149/78 H Pulse Oximetry 100 100 100 01/16/18 06:00 01/16/18 07:53 01/16/18 07:55 Temperature Pulse Rate 89 92 H Respiratory Rate 21 23 Blood Pressure Pulse Oximetry 100 01/16/18 08:00 01/16/18 10:00 01/16/18 11:50 Temperature 98.9 F Pulse Rate 82 109 H Respiratory Rate 22 20 Blood Pressure 164/79 H Pulse Oximetry 100 98 01/16/18 12:00 01/16/18 14:00 01/16/18 14:47 Temperature 98.6 F Pulse Rate 100 H 103 H 104 H Respiratory Rate 24 28 H Blood Pressure 122/66 Pulse Oximetry 100 01/16/18 14:48 Temperature Pulse Rate Respiratory Rate 28 H Blood Pressure Pulse Oximetry 98 Intake & Output 01/15/18 01/16/18 01/16/18 18:59 06:59 18:59 Intake Total 897 / 897 850.6 / 850.6 34.4 / 34.4 Output Total 1575 / 1575 650 / 650 Balance -678 / -678 200.6 / 200.6 34.4 / 34.4 Weight 65.4 kg Intake: IV 400 / 400 115.6 / 115.6 34.4 / 34.4 Precedex Inj 200 MCG In NS Inj 100 / 100 115.6 / 115.6 34.4 / 34.4 48 ML @ 0.2 MCG/KG/HR 3.48 mls/ hr IV.CONT TITRATE PRN Rx#: [id number] KCl 20 mEq Premix Inj 20 meq In 200 / 200 100 ml @ 50 mls/hr IV.SIG Q2H PRN Rx#:[id number] Rocephin Inj 1,000 MG In NS Inj 100 / 100 100 ML @ 200 mls/hr IV.SIG Q24H [facility] Rx#:[id number] Tube Feeding 317 / 317 535 / 535 Tube Irrigant 180 / 180 Water Bolus Amount 200 / 200 Output: Stool 900 / 900 50 / 50 Urine Amount (Catheter) 675 / 675 600 / 600 Female External 675 / 675 0 / 0 Straight 600 / 600 Chest Tube Drainage 0 / 0 0 / 0 Right Y Connected 0 / 0 0 / 0 Other: Date of Last Bowel Movement 01/16/18 01/16/18 12/19/17 11:30 Bronchial Washings - Bronchial Acid Fast Bacilli Smear - Final No acid fast bacilli seen 12/19/17 11:30 Bronchial Washings - Bronchial Mycobacterial Culture - Preliminary No growth in 4 weeks 01/14/18 01:00 Sputum - Tracheal Aspirate Gram Stain - Final 01/14/18 01:00 Sputum - Tracheal Aspirate Sputum Culture - Final Klebsiella pneumoniae 01/14/18 00:10 Catheterized Urine Urine Culture - Final Klebsiella pneumoniae ESBL pos 01/08/18 09:30 Tissue - Other Acid Fast Bacilli Smear - Final No acid fast bacilli seen 01/08/18 09:30 Tissue - Other Mycobacterial Culture - Preliminary No growth in 1 week 01/08/18 09:30 Tissue - Other Fungal Smear - Final No fungal elements seen 01/08/18 09:30 Tissue - Other Fungal Culture - Preliminary No growth in 1 week Lab - Hematology Results 01/15/18 01/16/18 04:45 04:44 WBC 9.6 9.5 RBC 3.22 L 3.17 L Hgb 10.2 L 9.9 L Hct 30.2 L 29.3 L MCV 93.7 92.5 MCH 31.6 31.2 MCHC 33.7 33.7 RDW 14.4 14.4 Plt Count 458 H 509 H MPV 9.0 8.8 Prelim Diff (Auto) Slide review pending Slide review pending Neut % (Auto) 66.6 65.3 Lymph % (Auto) 19.7 17.7 Pepin % (Auto) 11.6 H 15.1 H Eos % (Auto) 1.5 1.2 Baso % (Auto) 0.6 0.7 Neut # (Auto) 6.4 6.2 Lymph # (Auto) 1.9 1.7 [place] # (Auto) 1.1 H 1.4 H Eos # (Auto) 0.1 0.1 Baso # (Auto) 0.1 0.1 WBC Differential Manual diff final Manual diff final Seg Neuts % (Manual) 55 60 Band Neuts % (Manual) 15 H 8 H Lymphocytes % (Manual) 11 15 Monocytes % (Manual) 10 H 9 H Eosinophils % (Manual) 2 Metamyelocytes % (Man) 2 H Myelocytes % (Man) 7 H 3 H Promyelocytes % (Man) 3 H Abs Neuts (Manual) 7.6 7.0 Differential Comment . . Platelet Estimate High H High H Platelet Morphology Normal Normal Lab - Chemistry Results 01/14/18 01/14/18 01/14/18 16:40 16:40 16:40 Sodium 140 Potassium 3.1 L D Chloride 102 Carbon Dioxide 29.1 Anion Gap 9 BUN 14 Creatinine 0.48 L Estimated GFR Greater than 89 POC Glucose Random Glucose 118 H Calcium 9.4 Phosphorus Magnesium 1.8 Total Creatine Kinase Vitamin B12 1110 H 01/14/18 01/15/18 01/15/18 17:53 00:18 04:45 Sodium 141 Potassium 2.9 L* Chloride 102 Carbon Dioxide 29.4 Anion Gap 10 BUN 15 Creatinine 0.37 L Estimated GFR Greater than 89 POC Glucose 126 H 114 H Random Glucose 111 H Calcium 9.0 Phosphorus 3.7 D Magnesium 1.7 Total Creatine Kinase Vitamin B12 01/15/18 01/15/18 01/15/18 06:09 13:15 17:22 Sodium Potassium Chloride Carbon Dioxide Anion Gap BUN Creatinine Estimated GFR POC Glucose 129 H 112 H 107 Random Glucose Calcium Phosphorus Magnesium Total Creatine Kinase Vitamin B12 01/15/18 01/16/18 01/16/18 18:35 00:06 04:44 Sodium 139 Potassium 4.6 D 4.0 Chloride 104 Carbon Dioxide 27.1 Anion Gap 8 BUN 18 Creatinine 0.37 L Estimated GFR Greater than 89 POC Glucose 131 H Random Glucose 130 H Calcium 8.4 L Phosphorus 3.4 Magnesium 1.7 Total Creatine Kinase Vitamin B12 01/16/18 01/16/18 01/16/18 05:09 12:40 13:51 Sodium Potassium Chloride Carbon Dioxide Anion Gap BUN Creatinine Estimated GFR POC Glucose 128 H 129 H Random Glucose Calcium Phosphorus Magnesium Total Creatine Kinase 13 L Vitamin B12 Imaging: ITS Impressions Head CT 12/17/17 08:02 CONCLUSION: 1. 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 2. Otherwise negative. . Abdomen/Pelvis CT 12/17/17 10:45 CONCLUSION: 1. Moderate diffuse colonic wall thickening exaggerated by lack of colonic distention. This may be due to low-protein state/edema. However, differential considerations include infectious and inflammatory colitis. 2. Moderate-sized right hydropneumothorax with airspace disease in the lung bases as described on chest CT. 3. Additional ancillary findings, as above. Chest CT 01/03/18 11:56 CONCLUSION: 1. Consolidation at both lung bases has improved. Cavitary lesions on the right are slightly larger as measured above. 2. Improving pneumomediastinum, pneumopericardium and subcutaneous emphysema. Near complete resolution of previous right pneumothorax. 2 right chest tubes present. Trace pleural fluid present. 3. Patchy airspace disease remains in the lungs probably with some fibrotic changes well. 4. Endotracheal tube and nasogastric tube in good position. Head MRI 01/15/18 20:01 CONCLUSION: 1. Bilateral mastoiditis. 2. No acute intercranial findings. Chest X-Ray 01/16/18 00:00 CONCLUSION: Stable exam with 2 right-sided chest tubes. No pneumothorax. No new infiltrate. Physical Exam: GENERAL: Patient on the ventilator. SKIN: Warm and dry. No rash HEENT: No icterus. NECK: Trachea midline. No JVD. CARDIOVASCULAR: Regular rate and rhythm RESPIRATORY: No accessory muscle use. Decreased breath sounds. GASTROINTESTINAL: Abdomen soft, non-tender, distended. MUSCULOSKELETAL: Extremities without clubbing, cyanosis, NEUROLOGICAL: Lethargic. PSYCHIATRIC: unable to assess Assessment and Plan - Plan Sepsis (fever, leucocytosis) ongoing possible new. Coag neg staph likely pseudobacteremia Strep viridans: ? related to empyema torie Strep. 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 Oral vancomycin while she is on antibiotic Discontinue ceftriaxone.
[2018-01-17] MEDS: Insulin NovoLIN Regular Correctional Sugar Inj SQ SCH ×5 (01:03→23:50)
[2018-01-17] MEDS: Dexmedetomidine Inj 200 MCG in Sodium Chlor 0.9% Inj 48 ML IV.CONT PRN (01:10)
[2018-01-17] MEDS: Oral Hygiene Kit OROPHARYNG SCH ×5 (03:23→23:51)
[2018-01-17] MEDS: Heparin - SQ 10,000 UNITS/ML Vial SQ SCH ×3 (05:43→21:28)
[2018-01-17] MEDS: Dexmedetomidine Inj 1,000 MCG in Sodium Chlor 0.9% Inj 240 ML IV.CONT PRN ×2 (05:49→10:28)
[2018-01-17 05:50] LABS: Baso # (Auto) 0.1 th/mm3 (0.0-0.2); Eos # (Auto) 0.2 th/mm3 (0.0-0.4); Eos % (Auto) 1.7 % (0.0-4.0); Hematocrit 31.3 % (35.0-46.0); Hemoglobin 10.6 gm/dL (11.6-15.3); Lymph # (Auto) 1.9 th/mm3 (1.0-4.8); Lymph % (Auto) 20.2 % (9.0-44.0); Mean Corpuscular Hemoglobin 31.8 pg (27.0-34.0); Mean Corpuscular Volume 93.5 fL (80.0-100.0); Mean Platelet Volume 8.6 fL (7.0-11.0); Mono # (Auto) 1.4 th/mm3 (0.0-0.9); Mono % (Auto) 14.6 % (0.0-8.0); Neut % (Auto) 62.5 % (16.0-70.0); Platelet Count 489 th/mm3 (150-450); Red Blood Count 3.34 mil/mm3 (4.00-5.30); Red Cell Distribution Width 14.8 % (11.6-17.2); White Blood Count 9.6 th/mm3 (4.0-11.0)
[2018-01-17 06:13] LABS: Anion Gap 10 meq/L (5-15); Blood Urea Nitrogen 25 mg/dL (7-18); Calcium 8.4 mg/dL (8.5-10.1); Carbon Dioxide 26.9 meq/L (21.0-32.0); Chloride 104 meq/L (98-107); Glomerular Filtration Rate Greater Than 89 mL/min (>89); Glucose,Random 123 mg/dL (74-106); Magnesium 1.8 mg/dL (1.5-2.5); Phosphorus 3.9 mg/dL (2.5-4.9); Potassium 3.7 meq/L (3.5-5.1); Sodium 141 meq/L (136-145)
[2018-01-17] MEDS: Famotidine 20 MG Tablet PO SCH ×2 (09:05→20:00)
[2018-01-17] MEDS: Collagenase Oint 30 GM Tube TOPICAL SCH (09:05)
[2018-01-17] MEDS: Potassium Chloride 25 MEQ Effervescent Tablet NG/OG SCH (09:05)
[2018-01-17] MEDS: Senna/Docusate Sodium 8.6/50 MG Tablet PO SCH ×2 (09:05→20:00)
[2018-01-17] MEDS: Carboxymethylcellulose 0.5% Opth Drops 15 ML Bottle EACH EYE SCH ×2 (09:05→20:01)
[2018-01-17] MEDS: Chlorhexidine 0.12% Oral Kit 15 ML UDC OROPHARYNG SCH ×2 (09:05→20:01)
--- NOTE | 2018-01-17 09:47 | P.PNNEU ---
Subjective Active Medications: Active Medications Acetaminophen (Tylenol Liq) 650 mg NG/OG Q6H PRN PRN Reason: FEVER Last Admin: 01/16/18 23:19 Dose: 650 mg Albuterol (Albuterol Neb (Prn)) 2.5 mg NEB Q2HR NEB PRN PRN Reason: DYSPNEA Last Admin: 01/15/18 03:58 Dose: 2.5 mg Albuterol (Duoneb Neb ([facility])) 1 ampul NEB Q6HR NEB [facility] Last Admin: 01/17/18 03:36 Dose: 1 ampul Artificial Tears (Refresh Tears 0.5% Opth Drops) 1 drop EACH EYE BID [facility] Last Admin: 01/16/18 20:13 Dose: 1 drop Bisacodyl (Dulcolax Supp) 10 mg RECTAL DAILY PRN PRN Reason: if no BM in last 24h Chlorhexidine Gluconate (Peridex 0.12% Oral Kit) 15 ml OROPHARYNG BID@0800, 2000 [facility] Last Admin: 01/16/18 20:13 Dose: 15 ml Collagenase (Santyl Oint) 1 applicatio TOPICAL DAILY [facility] Last Admin: 01/16/18 08:14 Dose: 1 applicatio Dextrose (D50w Vial) 50 ml IV.PUSH UNSCH PRN PRN Reason: PER HYPOGLYCEMIA PROTOCOL Famotidine (Pepcid) 20 mg PO BID [facility] Last Admin: 01/16/18 20:12 Dose: 20 mg Furosemide (Lasix Inj) 40 mg IV.PUSH DAILY [facility] Last Admin: 01/16/18 08:11 Dose: 40 mg Glucagon (Glucagon Inj) 1 mg OTHER PRN PRN PRN Reason: for Hypoglycemia Protocol Heparin Sodium (Porcine) (Heparin Inj) 5,000 units SQ Q8HR [facility] Last Admin: 01/17/18 05:43 Dose: 5,000 units Magnesium Sulfate 4 gm/ Sodium (Chloride) 100 mls @ 50 mls/hr IV.SIG UNSCH PRN PRN Reason: For Magnesium 0.9 - 1.1 mg/dL Magnesium Sulfate 2 gm/ Sodium (Chloride) 100 mls @ 50 mls/hr IV.SIG UNSCH PRN PRN Reason: For Magnesium 1.2 - 1.6 mg/dL Last Infusion: 01/02/18 18:23 Dose: Infused Potassium Chloride (Kcl 40 Meq Premix Inj) 40 meq in 100 mls @ 25 mls/hr IV.SIG Q2H PRN PRN Reason: For Potassium 2.8 - 3.2 mEq/L Last Infusion: 01/09/18 17:38 Dose: Infused Potassium Chloride (Kcl 20 Meq Premix Inj) 20 meq in 100 mls @ 50 mls/hr IV.SIG Q2H PRN PRN Reason: For Potassium 3.3 - 3.5 mEq/L Last Infusion: 01/06/18 15:52 Dose: Infused Potassium Chloride (Kcl 40 Meq Premix Inj) 40 meq in 100 mls @ 25 mls/hr IV.SIG UNSCH PRN PRN Reason: For Potassium 3.3 - 3.5 mEq/L Last Infusion: 12/29/17 12:09 Dose: Infused Potassium Chloride (Kcl 20 Meq Premix Inj) 20 meq in 100 mls @ 50 mls/hr IV.SIG Q2H PRN PRN Reason: For Potassium 2.8 - 3.2 mEq/L Last Infusion: 01/15/18 15:24 Dose: Infused Potassium Phosphate 30 mmol/ (Sodium Chloride) 260 mls @ 42 mls/hr IV.SIG UNSCH PRN PRN Reason: SEE LABEL COMMENTS Sodium Phosphate 30 mmol/ (Sodium Chloride) 260 mls @ 42 mls/hr IV.SIG UNSCH PRN PRN Reason: For Phosphorus < 2.5 mg/dL Last Infusion: 12/19/17 21:50 Dose: Infused Propofol (Diprivan 1000 Mg/100 Ml Inj) 1,000 mg in 100 mls @ 2.904 mls/hr IV.CONT TITRATE PRN; Protocol PRN Reason: Per Protocol Last Titration: 01/13/18 22:47 Dose: 0 mcg/kg/min, 0 mls/hr Meropenem 500 mg/ Sodium (Chloride) 100 mls @ 200 mls/hr IV.SIG Q8H [facility] Last Admin: 01/17/18 01:09 Dose: 200 mls/hr Dexmedetomidine HCl 1,000 mcg/ (Sodium Chloride) 250 mls @ 3.48 mls/hr IV.CONT TITRATE PRN; Protocol PRN Reason: Per Protocol Last Admin: 01/17/18 05:49 Dose: 0.7 mcg/kg/hr, 12.18 mls/hr Insulin Human Regular (Novolin R Correctional Sugar Inj) 0 units SQ Q6HR [facility]; Protocol Last Admin: 01/17/18 05:48 Dose: Not Given Lactulose (Lactulose Liq) 30 ml PO BID [facility] Last Admin: 01/16/18 20:12 Dose: 30 ml Lactulose (Lactulose Liq) 30 ml PO QID PRN PRN Reason: SEVERE CONSITIPATION Magnesium Oxide (Mag-Ox) 800 mg PO UNSCH PRN PRN Reason: For Magnesium 1.2 - 1.6 mg/dL Metoclopramide HCl (Reglan Inj) 5 mg IV.PUSH Q8HR [facility]; Protocol Last Admin: 01/17/18 05:44 Dose: 5 mg Metoprolol Tartrate (Lopressor Inj) 5 mg IV.PUSH Q6H PRN PRN Reason: HR>100 Last Admin: 01/13/18 14:56 Dose: 5 mg Miscellaneous Medication () 1 each OROPHARYNG 0000,0400,1200,1600 [facility] Last Admin: 01/17/18 05:43 Dose: 1 each Ondansetron HCl (Zofran Inj) 4 mg IV.PUSH Q6H PRN PRN Reason: NAUSEA OR VOMITING Potassium Bicarb/Potassium Chloride (K-Lyte Cl Eff) 50 meq PO UNSCH PRN PRN Reason: For Potassium 3.3 - 3.5 mEq/L Last Admin: 01/15/18 08:13 Dose: 50 meq Potassium Bicarb/Potassium Chloride (K-Lyte Cl Eff) 40 meq NG/OG DAILY [facility] Last Admin: 01/16/18 08:12 Dose: 40 meq Potassium Phosphate (K-Phos Original) 2,000 mg PO Q4H PRN PRN Reason: Phosphorus Less Than 2.5 mg/dL Last Admin: 12/25/17 02:42 Dose: 2,000 mg Potassium Phosphate (K-Phos Original) 2,000 mg PO UNSCH PRN PRN Reason: SEE LABEL COMMENTS Last Admin: 12/24/17 19:29 Dose: 2,000 mg Pravastatin Sodium (Pravachol) 40 mg PO DAILY [facility] Last Admin: 01/16/18 08:14 Dose: 40 mg Quetiapine Fumarate (Seroquel) 25 mg PO HS [facility] Last Admin: 01/13/18 21:00 Dose: 25 mg Senna/Docusate Sodium (Kaylyn-Colace) 1 tab PO BID [facility] Last Admin: 01/16/18 20:12 Dose: 1 tab Sodium Chloride (Ns Flush) 2 ml IV.FLUSH UNSCH PRN PRN Reason: FLUSH AFTER USING IV ACCESS Last Admin: 01/10/18 09:30 Dose: 2 ml Sodium Chloride (Ns Flush) 2 ml IV.FLUSH BID [facility] Last Admin: 01/16/18 20:13 Dose: 2 ml Sodium Chloride (Ns Flush) 2 ml IV.FLUSH BID [facility] Last Admin: 01/16/18 20:27 Dose: 2 ml Sodium Chloride (Ns Flush) 2 ml IV.FLUSH PRN PRN PRN Reason: FLUSH AFTER USING IV ACCESS Valproate Sodium (Depakene Liq) 500 mg NG/OG TID [facility] Last Admin: 01/16/18 17:51 Dose: 500 mg Vancomycin HCl (Vancomycin Po) 125 mg PO QID [facility] Last Admin: 01/16/18 20:12 Dose: 125 mg Allergies/Adverse Reactions: Allergies Allergy/AdvReac Type Severity Reaction Status Date / Time No Known Allergies Allergy Verified 12/13/17 08:04 Physical Exam Vital signs: Vital Signs 01/16/18 10:00 01/16/18 11:00 01/16/18 11:50 Temperature Pulse Rate 99 H 115 H Respiratory Rate 25 H 28 H 20 Blood Pressure 142/77 H 145/73 H Pulse Oximetry 99 98 98 01/16/18 12:00 01/16/18 13:00 01/16/18 14:00 Temperature 98.6 F Pulse Rate 100 H 94 H 103 H Respiratory Rate 20 24 27 H Blood Pressure 122/66 136/76 148/78 H Pulse Oximetry 98 99 96 01/16/18 14:47 01/16/18 14:48 01/16/18 15:00 Temperature Pulse Rate 104 H 106 H Respiratory Rate 28 H 28 H 28 H Blood Pressure 152/75 H Pulse Oximetry 98 99 01/16/18 16:00 01/16/18 17:00 01/16/18 18:00 Temperature 99.4 F Pulse Rate 110 H 110 H 115 H Respiratory Rate 29 H 23 30 H Blood Pressure 138/73 126/67 134/76 Pulse Oximetry 96 98 98 01/16/18 19:00 01/16/18 19:59 01/16/18 20:00 Temperature 99.7 F H Pulse Rate 110 H 108 H Respiratory Rate 28 H 28 H 29 H Blood Pressure 145/75 H 146/75 H Pulse Oximetry 98 98 98 01/16/18 20:03 01/16/18 21:00 01/16/18 22:00 Temperature Pulse Rate 109 H 108 H 101 H Respiratory Rate 29 H 26 H 26 H Blood Pressure 143/74 H 138/75 Pulse Oximetry 97 98 01/16/18 23:00 01/17/18 00:00 01/17/18 00:05 Temperature Pulse Rate 100 H 94 H Respiratory Rate 22 20 19 Blood Pressure 145/70 H 144/77 H Pulse Oximetry 98 98 98 01/17/18 01:00 01/17/18 02:00 01/17/18 03:00 Temperature Pulse Rate 86 84 92 H Respiratory Rate 19 18 19 Blood Pressure 140/74 142/73 H 141/85 H Pulse Oximetry 98 99 100 01/17/18 03:35 01/17/18 03:57 01/17/18 04:00 Temperature Pulse Rate 82 89 Respiratory Rate 19 18 21 Blood Pressure 148/77 H Pulse Oximetry 100 98 01/17/18 05:00 01/17/18 06:00 01/17/18 07:32 Temperature Pulse Rate 83 93 H Respiratory Rate 24 21 Blood Pressure 160/86 H Pulse Oximetry 100 100 01/17/18 08:00 Temperature Pulse Rate Respiratory Rate 21 Blood Pressure Pulse Oximetry 99 Intake & Output 01/16/18 01/17/18 01/17/18 18:59 06:59 18:59 Intake Total 998.4 / 998.4 937.4 / 937.4 Output Total 650 / 650 1730 / 1730 Balance 348.4 / 348.4 -792.6 / -792.6 Weight 66.1 kg Intake: IV 284.4 / 284.4 134.4 / 134.4 Precedex Inj 200 MCG In NS Inj 84.4 / 84.4 134.4 / 134.4 48 ML @ 0.2 MCG/KG/HR 3.48 mls/ hr IV.CONT TITRATE PRN Rx#: [id number] Merrem Inj 500 MG In NS Inj 100 100 / 100 ML @ 200 mls/hr IV.SIG Q8H [facility] Rx#:[id number] Rocephin Inj 1,000 MG In NS Inj 100 / 100 100 ML @ 200 mls/hr IV.SIG Q24H [facility] Rx#:[id number] Tube Feeding 714 / 714 603 / 603 Water Bolus Amount 200 / 200 Output: Stool 100 / 100 400 / 400 Urine Amount (Catheter) 550 / 550 1300 / 1300 Female External 550 / 550 200 / 200 Straight 1100 / 1100 Chest Tube Drainage 0 / 0 30 / 30 Right Y Connected 0 / 0 30 / 30 Other: Date of Last Bowel Movement 01/16/18 01/16/18 Narrative: sleeping now was awake earlier acc to picked up lle once for him tracks - Urinary Catheter Management Indwelling Urethral Catheter Cath placed during this visit: yes, but has since been removed by the nurse Reason for continuing: Not indwelling catheter Insertion date: 01/08/18 Insertion time: 08:00 Removal date: 01/08/18 Removal time: 18:00 Straight Cath placed during this visit: yes, but has since been removed by the nurse Reason for continuing: Hourly intake/output Insertion date: 01/08/18 Insertion time: 08:00 Removal date: 12/23/17 Removal time: 00:00 Female External Cath placed during this visit: no Objective Laboratory Results - last 24 hr 01/16/18 01/16/18 01/16/18 12:40 13:51 14:50 WBC RBC Hgb Hct MCV MCH MCHC RDW Plt Count MPV Prelim Diff (Auto) Neut % (Auto) Lymph % (Auto) [place] % (Auto) Eos % (Auto) Baso % (Auto) Neut # (Auto) Lymph # (Auto) [place] # (Auto) Eos # (Auto) Baso # (Auto) Differential Comment Puncture Site Right radial Patient Temperature 98.6 O2 Saturation 96 ABG pH 7.51 H* ABG pCO2 32 L ABG pO2 108 ABG HCO3 25 ABG O2 Content 14.1 ABG Base Excess 2.3 H ABG Methemoglobin 1.6 [place] Test Present Hemoglobin 10.4 L Carboxyhemoglobin 0.8 O2 Delivery Device Ventilator Vent Setting Prvc/ac450/16/ Inspired O2 35 Critical Value Yes Sodium Potassium Chloride Carbon Dioxide Anion Gap BUN Creatinine Estimated GFR POC Glucose 129 H Random Glucose Calcium Phosphorus Magnesium Total Creatine Kinase 13 L 01/16/18 01/17/18 01/17/18 18:04 01:18 04:25 WBC 9.6 RBC 3.34 L Hgb 10.6 L Hct 31.3 L MCV 93.5 MCH 31.8 MCHC 34.0 RDW 14.8 Plt Count 489 H MPV 8.6 Prelim Diff (Auto) Slide review pending Neut % (Auto) 62.5 Lymph % (Auto) 20.2 [place] % (Auto) 14.6 H Eos % (Auto) 1.7 Baso % (Auto) 1.0 Neut # (Auto) 6.0 Lymph # (Auto) 1.9 [place] # (Auto) 1.4 H Eos # (Auto) 0.2 Baso # (Auto) 0.1 Differential Comment . Puncture Site Patient Temperature O2 Saturation ABG pH ABG pCO2 ABG pO2 ABG HCO3 ABG O2 Content ABG Base Excess ABG Methemoglobin [place] Test Hemoglobin Carboxyhemoglobin O2 Delivery Device Vent Setting Inspired O2 Critical Value Sodium Potassium Chloride Carbon Dioxide Anion Gap BUN Creatinine Estimated GFR POC Glucose 124 H 142 H Random Glucose Calcium Phosphorus Magnesium Total Creatine Kinase 01/17/18 01/17/18 04:25 05:46 WBC RBC Hgb Hct MCV MCH MCHC RDW Plt Count MPV Prelim Diff (Auto) Neut % (Auto) Lymph % (Auto) [place] % (Auto) Eos % (Auto) Baso % (Auto) Neut # (Auto) Lymph # (Auto) [place] # (Auto) Eos # (Auto) Baso # (Auto) Differential Comment Puncture Site Patient Temperature O2 Saturation ABG pH ABG pCO2 ABG pO2 ABG HCO3 ABG O2 Content ABG Base Excess ABG Methemoglobin [place] Test Hemoglobin Carboxyhemoglobin O2 Delivery Device Vent Setting Inspired O2 Critical Value Sodium 141 Potassium 3.7 Chloride 104 Carbon Dioxide 26.9 Anion Gap 10 BUN 25 H Creatinine 0.42 L Estimated GFR Greater than 89 POC Glucose 106 Random Glucose 123 H Calcium 8.4 L Phosphorus 3.9 Magnesium 1.8 Total Creatine Kinase Microbiology 12/19/17 11:30 Acid Fast Bacilli Smear - Final Bronchial Washings - Bronchial No acid fast bacilli seen Mycobacterial Culture - Preliminary No growth in 4 weeks 01/14/18 01:00 Gram Stain - Final Sputum - Tracheal Aspirate Sputum Culture - Final Klebsiella pneumoniae 01/14/18 00:10 Urine Culture - Final Catheterized Urine Klebsiella pneumoniae ESBL pos Review/Management - Review/Management Plan: 01/16/18 labs ok mri brain and eeg neg looks much better check b1 cpk abg unclear if could have icu neuromyopathy would like to see her move more on vpa level ok seroquel on hold 01/17/18 [facility] stable neuro aguilar neg
[2018-01-17] MEDS: Sodium Chloride 0.9% 2 ML Flush BID IV.FLUSH SCH ×2 (10:30→20:01)
[2018-01-17 10:40] LABS: Eosinophils 1 % (0-4); Lymphocytes 15 % (9-44); Metamyelocytes 6 % (0-1); Monocytes 12 % (0-8); Myelocytes 2 % (0-0); Platelet Morphology Normal (Normal); RBC Morphology Normal (Normal)
[2018-01-17] MEDS ORDERED: Potassium Chloride 25 MEQ Effervescent Tablet PO ONE (12:07)
[2018-01-17] MEDS ORDERED: Magnesium Sulfate Inj 2 GM in Sodium Chlor 0.9% Inj 96 ML IV.SIG ONE (12:08)
--- NOTE | 2018-01-17 12:12 | P.PNCC ---
Subjective Subjective Remarks/Hospital Course: This is a 62yF who was originally admitted on 11/23 with a diagnosis of colitis, found to have enterovirus. discharged on 12/11 at that time on PO vancomycin, but came back on 12/13 with altered mental status and hypoglycemia, again discharged on 12/15. She was mildly fatigued on 12/16 according to her and asked to wait another day before traveling back to her home in [place]. This morning, she was unarousable and her called 911. She was intubated upon arrival to the emergency department for agonal respirations. CXR demonstrates bilateral multifocal pneumonia. She is febrile, hypotensive. CVL placed in the ER and vasopressors initiated after 2L bolus crystalloid. CT chest/abd/pelvis demonstrates right pneumothorax, densely consolidated right lower lobe, bilateral pulmonary infiltrates, evidence of ongoing colitis. Patient continue to be unstable. Immediately after identifying ptx on CT scan, I emergently placed right chest tube with some improvements in hemodynamics, but ongoing distributive shock persists. I placed arterial line. No additional information available from the patient, ROS unobtainable. In discussion with the , she has not had any new complaints in the 48h she was home, and other than mild fatigue last night, no new complaints. She was able to walk to the bathroom without assistance yesterday. 12/18: shock remains. now on levophed, vasopressin, phenylephrine. second chest tube placed overnight for worsening SQ air. acidosis remains and is severe. 12/19: Afebrile. Remains on vasopressin drip only. On stress dose hydrocortisone. Evaluated by CT surgery. Not a candidate for intervention at the present time. Chest tube continues to leak. Epoprostenol added today 12/20: Afebrile. FiO2 has decreased and is currently 70%. Currently replacing potassium, phosphorus and magnesium. Recheck later this afternoon. Less chest tube leak today down to 1 chamber. 12/21: Overnight, worsening subcutaneous emphysema. A third chest tube placed by overnight software developer after discussion with cardiothoracic surgery. Currently hemodynamically stable. Replacing phosphorus today. To be evaluated by CT surgery today. 12/22: Remains sedated, orally intubated on mechanical ventilation. Persistent air leak and chest tube noted. 12/23: Remains sedated, orally intubated on mechanical ventilation. Air leak persists though slightly improved. PEEP at +5 FiO2 55%, inhaled Flolan continues. Central line replaced with right IJ triple-lumen catheter. 12/24: Remains sedated, orally intubated on mechanical ventilation. 1+ air leak from chest tube 3 noted. PEEP +5, FiO2 60%, inhaled Flolan continues. Decreasing subcutaneous emphysema noted. 12/25: Remains sedated, orally improved on mechanical ventilation. 1+ for leak from chest tube 2. PEEP +5, FiO2 50%. Starting to titrate inhaled Flolan down today. Initiating Lasix to mobilize fluid. 12/26: remains intubated. air leak continues from chest tube #3. drainage out of #1 and #2 are very serous. #1 was removed by myself today. all chest tube dressings changed by me today. repeat CXR pending. very volume overloaded. starting to diurese. off vasopressors. off pathway: still high fio2 requirements. 12/27: good diuresis overnight. very hypokalemic today and aggressively replacing. CXR unchanged. air leak unchanged. long discussion over long-term and short-term prognosis and plan of care with entire family today. all questions answered. 12/28: Continues to diurese. Remains on mechanical ventilation. Positive air leak in chest tube 3. 1 unit PRBCs transfused earlier for hemoglobin 6.9. 12/29: Remains on mechanical ventilation. Increasing subcutaneous emphysema noted. Air leak stopped and chest tube #2 and 3 currently. Flolan being titrated down. Chest x-ray shows appropriate positioning of 2 chest tubes with the more medial small right pneumothorax with significant subcutaneous emphysema bilaterally. Patient remains off pressors and is being diuresed to mobilize fluid. 12/30: volume removal continues. Cr still at baseline. fio2 down to 40% and off inhaled Flolan. discussed with Dr. Lynn: will need to wait at least until next week for VATS. Will need trach going forward: discussed with family and they are agreeable. Dr. Lynn asked that both chest tubes remain in place. air leak persists. remains intubated and sedated. 12/31: Sedated, orally intubated on mechanical ventilation. On 40% FiO2 PEEP + 5. Positive air leak in chest tube [address] surgery planning for VATS next week, will need tracheostomy coordinated as well. 01/01: Remains sedated, orally intubated on mechanical ventilation. PEEP +5, FiO2 35%. Being diuresed. 01/02: Sedated, orally intubated on mechanical ventilation. PEEP +5, FiO2 35%. Intermittent air leak in chest tube 3. Being diuresed 01/03: persistent air leak. hypoxia improving. discussed case with Dr. Lynn- he would like pre-operative CT chest for surgical planning. we also discussed timing of tracheostomy: it would be easier surgically to have ett in place to place double-lumen ett, so he would prefer to keep ett until after operation, and then proceed with tracheostomy. tentatively VATS planned for Friday 01/05. 01/04: No events over the night. Patient remains sedated and intubated, sedation achieved with fentanyl and propofol. T-max of 100.2 over the last 24 hours. I/O 3770/3130. Chest tubes remain on suction. 01/05: T-max 99.3. Currently afebrile. Difficulty with weaning from ventilator noted. VATS currently on hold per CT surgery. 01/06: Resting comfortably in bed in no acute distress. Plan for thoracotomy rested on Thursday night. Currently on CPAP trial. Potassium being replaced. 01/07: Resting complaint bed in no acute distress. Plan for thoracotomy tomorrow a.m. 730. Currently on CPAP trial. Transfuse when he PRBC today. Hemoglobin currently 9.6 potassium 3.9. 01/08: Today, status post right thoracoscopic decortication, closure of bronchopleural fistula with debridement and irrigation of the prior chest tube wounds with placement of 2 #32 [place] chest tubes by cardiothoracic surgery patellar procedure well. EBL 250. Adequate urine output. Appears stable. 01/09: T-max 100.2. Currently tachycardic. Receiving 2 units PRBCs. Potassium being replaced. Agitated on the ventilator. 01/10: Twitching on the ventilator/tremor. Temperature max 100.2. 120 cc output from chest tube overnight. Still not arousable/following commands on the ventilator. Likely tracheostomy 01/11: T-max 100.5. Status post #8 [facility] practice tracheostomy today. Order PEG tube for tomorrow. Arousable but not following commands. Thrashes back and forth. 01/12: T-max 100.4. Plan to initiate CPAP trials today. Patient does not follow commands, but does track movement. IV antibiotics discontinued yesterday Zosyn and micafungin. The patient continues on p.o. Vanco. Case discussed with CT surgery plan for continuation chest tubes until placed on trach collar. 01/13: No acute events overnight. Patient underwent PEG placement this afternoon. Remains n.p.o. 6 hours post PEG. During sedation vacation the patient becomes extremely agitated and tachycardic. Right chest tube continues on 20 cm of water suction. 01/14: Sedation vacation underway. Patient noted to have spontaneous eye opening and spontaneous movement of lower extremities but not responding to any commands and no visual tracking. EEG has been ordered. Neurology has been consulted. Noted ammonia level less than 10 this a.m. propofol and fentanyl sedation has been discontinued since yesterday. The patient will remain on Precedex to maintain ventilator synchrony but currently undergoing sedation vacation for accurate neurological assessment. The patient has been initiated on CPAP trials. 01/15: No acute changes in neurological status. Noted spontaneous eye opening today MRI performed which showed no acute intracranial abnormality. Urine culture resulted UTI gram-negative rods, Rocephin 7-day medication regimen added. The patient tolerated CPAP trials for approximately 9.5 hours yesterday. The patient continues on CPAP trials today. 01/16: The patient is noted to be awake and alert smiling nodding head to yes and no questions today. Follow commands for ELECTROLYTIC ETCHER and by squeezing hands no movement of lower extremities noted . PEG tube site without erythema, tolerating tube feeds. Urine culture results Klebsiella ESBL, Patient Continues with a Purewick urinary drainage device. No change in chest x-ray, right chest tubes continue on suction. Subjective 01/17: T-max 99.7. Started on imipenem/cilastatin secondary to yesterday a positive Klebsiella pneumonia UTI/sputum positive. Follows commands and wings high. Muscles weak throughout. Objective Vital Signs / I&O: Vital Signs 01/16/18 13:00 01/16/18 14:00 01/16/18 14:47 Temperature Pulse Rate 94 H 103 H 104 H Respiratory Rate 24 27 H 28 H Blood Pressure 136/76 148/78 H Pulse Oximetry 99 96 01/16/18 14:48 01/16/18 15:00 01/16/18 16:00 Temperature 99.4 F Pulse Rate 106 H 110 H Respiratory Rate 28 H 28 H 29 H Blood Pressure 152/75 H 138/73 Pulse Oximetry 98 99 96 01/16/18 17:00 01/16/18 18:00 01/16/18 19:00 Temperature Pulse Rate 110 H 115 H 110 H Respiratory Rate 23 30 H 28 H Blood Pressure 126/67 134/76 145/75 H Pulse Oximetry 98 98 98 01/16/18 19:59 01/16/18 20:00 01/16/18 20:03 Temperature 99.7 F H Pulse Rate 108 H 109 H Respiratory Rate 28 H 29 H 29 H Blood Pressure 146/75 H Pulse Oximetry 98 98 01/16/18 21:00 01/16/18 22:00 01/16/18 23:00 Temperature Pulse Rate 108 H 101 H 100 H Respiratory Rate 26 H 26 H 22 Blood Pressure 143/74 H 138/75 145/70 H Pulse Oximetry 97 98 98 01/17/18 00:00 01/17/18 00:05 01/17/18 01:00 Temperature Pulse Rate 94 H 86 Respiratory Rate 20 19 19 Blood Pressure 144/77 H 140/74 Pulse Oximetry 98 98 98 01/17/18 02:00 01/17/18 03:00 01/17/18 03:35 Temperature Pulse Rate 84 92 H 82 Respiratory Rate 18 19 19 Blood Pressure 142/73 H 141/85 H Pulse Oximetry 99 100 01/17/18 03:57 01/17/18 04:00 01/17/18 05:00 Temperature Pulse Rate 89 83 Respiratory Rate 18 21 24 Blood Pressure 148/77 H 160/86 H Pulse Oximetry 100 98 100 01/17/18 06:00 01/17/18 07:00 01/17/18 07:32 Temperature Pulse Rate 93 H 77 Respiratory Rate 20 21 Blood Pressure 158/76 H Pulse Oximetry 100 100 01/17/18 08:00 01/17/18 09:00 01/17/18 10:00 Temperature 98.3 F Pulse Rate 80 81 79 Respiratory Rate 21 25 H 23 Blood Pressure 170/81 H 165/80 H 168/90 H Pulse Oximetry 100 100 100 01/17/18 11:20 Temperature Pulse Rate 87 Respiratory Rate 22 Blood Pressure Pulse Oximetry 99 Intake & Output 01/16/18 01/17/18 01/17/18 18:59 06:59 18:59 Intake Total 998.4 / 998.4 1037.4 / 1037.4 250 / 250 Output Total 650 / 650 1730 / 1730 Balance 348.4 / 348.4 -692.6 / -692.6 250 / 250 Weight 66.1 kg Intake: IV 284.4 / 284.4 234.4 / 234.4 250 / 250 Precedex Inj 1,000 MCG In NS 250 / 250 Inj 240 ML @ 0.2 MCG/KG/HR 3.48 mls/hr IV.CONT TITRATE PRN Rx# :[id number] Precedex Inj 200 MCG In NS Inj 84.4 / 84.4 134.4 / 134.4 48 ML @ 0.2 MCG/KG/HR 3.48 mls/ hr IV.CONT TITRATE PRN Rx#: [id number] Merrem Inj 500 MG In NS Inj 100 100 / 100 100 / 100 ML @ 200 mls/hr IV.SIG Q8H BENJAMIN Rx#:[id number] Rocephin Inj 1,000 MG In NS Inj 100 / 100 100 ML @ 200 mls/hr IV.SIG Q24H BENJAMIN Rx#:[id number] Tube Feeding 714 / 714 603 / 603 Water Bolus Amount 200 / 200 Output: Stool 100 / 100 400 / 400 Urine Amount (Catheter) 550 / 550 1300 / 1300 Female External 550 / 550 200 / 200 Straight 1100 / 1100 Chest Tube Drainage 0 / 0 30 / 30 Right Y Connected 0 / 0 30 30 Other: Date of Last Bowel Movement 01/16/18 01/16/18 01/17/18 Result Diagrams: 01/17/18 04:25 01/17/18 04:25 Other Results: Microbiology 12/19/17 11:30 Bronchial Washings - Bronchial Acid Fast Bacilli Smear - Final No acid fast bacilli seen 12/19/17 11:30 Bronchial Washings - Bronchial Mycobacterial Culture - Preliminary No growth in 4 weeks 01/14/18 01:00 Sputum - Tracheal Aspirate Gram Stain - Final 01/14/18 01:00 Sputum - Tracheal Aspirate Sputum Culture - Final Klebsiella pneumoniae 01/14/18 00:10 Catheterized Urine Urine Culture - Final Klebsiella pneumoniae ESBL pos 01/08/18 09:30 Tissue - Other Acid Fast Bacilli Smear - Final No acid fast bacilli seen 01/08/18 09:30 Tissue - Other Mycobacterial Culture - Preliminary No growth in 1 week 01/08/18 09:30 Tissue - Other Fungal Smear - Final No fungal elements seen 01/08/18 09:30 Tissue - Other Fungal Culture - Preliminary No growth in 1 week 01/10/18 01:30 Catheterized Urine Urine Culture - Final No growth in 48 hours 01/08/18 09:30 Tissue - Other Gram Stain - Final 01/08/18 09:30 Tissue - Other Wound Culture - Final No growth in 72 hours (aerobically and anaerobically ) 12/17/17 15:55 Other - Final 01/01/18 22:07 Blood - Peripheral Aerobic Blood Culture - Final No growth in 5 days 01/01/18 22:07 Blood - Peripheral Anaerobic Blood Culture - Final No growth in 5 days 01/01/18 19:45 Blood - Peripheral Aerobic Blood Culture - Final No growth in 5 days 01/01/18 19:45 Blood - Peripheral Anaerobic Blood Culture - Final No growth in 5 days 01/02/18 17:28 Sputum - Endotracheal Gram Stain - Final 01/02/18 17:28 Sputum - Endotracheal Sputum Culture - Final Klebsiella pneumoniae 12/19/17 11:30 Bronchial Washings - Bronchial Fungal Smear - Final Rare budding yeast 12/19/17 11:30 Bronchial Washings - Bronchial Fungal Culture - Preliminary 12/17/17 15:55 Fluid - Pleural fluid Gram Stain - Final 12/17/17 15:55 Fluid - Pleural fluid Body Fluid Culture - Final Lactobacillus rhamnosus Karla glabrata Klebsiella pneumoniae 12/19/17 00:56 Fluid - Pleural fluid Gram Stain - Final 12/19/17 00:56 Fluid - Pleural fluid Body Fluid Culture - Final Karla glabrata Lactobacillus rhamnosus 12/19/17 00:30 Fluid - Pleural fluid Gram Stain - Final 12/19/17 00:30 Fluid - Pleural fluid Body Fluid Culture - Final Klebsiella pneumoniae Karla albicans Karla glabrata Lactobacillus rhamnosus 12/17/17 15:55 Other - Final 12/17/17 08:24 Blood - Peripheral Aerobic Blood Culture - Final No growth in 5 days 12/17/17 08:24 Blood - Peripheral Anaerobic Blood Culture - Final No growth in 5 days 12/17/17 08:10 Blood - Peripheral Aerobic Blood Culture - Final No growth in 5 days 12/17/17 08:10 Blood - Peripheral Anaerobic Blood Culture - Final Staphylococcus coag negative Viridans streptococcus grp 12/19/17 11:30 Bronchial - Bronchial Gram Stain - Final 12/19/17 11:30 Bronchial - Bronchial Bronchial Culture - Final Klebsiella pneumoniae 12/17/17 15:54 Sputum - Endotracheal Gram Stain - Final 12/17/17 15:54 Sputum - Endotracheal Sputum Culture - Final Klebsiella pneumoniae 12/17/17 15:55 Stool Stool for WBCs - Final Few WBC's 12/17/17 13:54 Urine - Catheterized Urine Streptococcus pneumoniae Antigen ( M - Final Presumptive negative for streptococcus pneumoniae antigen, suggesting no current or recent infection. Infection due to Streptococcus pneumoniae cannot be ruled out since the antigen present in the sample may be below the detection limit of the test. 12/17/17 13:54 Urine - Catheterized Urine Legionella Antigen - Final Presumptive negative for Legionella pneumophila serogroup 1 antigen in urine, suggesting no recent or recurrent infection. Infection due to Legionella cannot be ruled out since other serogroups and species may cause disease, antigen may not be present in urine in early infection, and the level of antigen present in the urine may be below the detection limit of the test. 12/17/17 15:55 Nasal Aspirate Influenza Types A,B Antigen - Final Negative for FLU A and B antigen Infection due to influenza A or B cannot be ruled out since the antigen present in the sample may be below the detection limit of the test. Imaging: ITS Impressions Head CT 12/17/17 08:02 CONCLUSION: 1. 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 2. Otherwise negative. . Abdomen/Pelvis CT 12/17/17 10:45 CONCLUSION: 1. Moderate diffuse colonic wall thickening exaggerated by lack of colonic distention. This may be due to low-protein state/edema. However, differential considerations include infectious and inflammatory colitis. 2. Moderate-sized right hydropneumothorax with airspace disease in the lung bases as described on chest CT. 3. Additional ancillary findings, as above. Chest CT 01/03/18 11:56 CONCLUSION: 1. Consolidation at both lung bases has improved. Cavitary lesions on the right are slightly larger as measured above. 2. Improving pneumomediastinum, pneumopericardium and subcutaneous emphysema. Near complete resolution of previous right pneumothorax. 2 right chest tubes present. Trace pleural fluid present. 3. Patchy airspace disease remains in the lungs probably with some fibrotic changes well. 4. Endotracheal tube and nasogastric tube in good position. Head MRI 01/15/18 20:01 CONCLUSION: 1. Bilateral mastoiditis. 2. No acute intercranial findings. Chest X-Ray 01/16/18 00:00 CONCLUSION: Stable exam with 2 right-sided chest tubes. No pneumothorax. No new infiltrate. Objective Remarks: GENERAL: 62-year-old female, on ventilator via tracheostomy and, chronically ill-appearing , smiling, nodding head to yes and no questions HEENT: Pupils are equal and reactive, sclerae are anicteric, status post tracheostomy on 01/11 NECK: Supple, no rigidity, no neck vein distention, no carotid bruit, tracheostomy site without bleeding. CHEST: Coarse breath sounds bilateral, no wheezes, currently no subcu emphysema. 1 dual right-sided chest tubes on suction, CARDIOVASCULAR: Regular regular rate and rhythm, no murmurs appreciated ABDOMEN: Soft, nontender, nondistended, bowel sounds present, no hepatomegaly or splenomegaly appreciated MUSCULOSKELETAL: Extremities are warm and well perfused, peripheral pulses are present, 2+ pitting edema NEUROLOGICAL: Continues on low-dose Precedex .tracheostomy site without erythema or drainage. spontaneous eye opening nodding head to yes and no questions., visual tracking noted today. Pupils are equal and reactive, no gaze deviation. No movement of lower extremities upon command. Assessment and Plan - Assessment and Plan Plan: Neuro/Psych: Acute metabolic encephalopathy Possible seizure disorder Critical illness polyneuropathy ? Dexmedetomidine infusion for maintenance of ventilator synchrony Daily sedation vacation. Goal RASS -2 She was started on anticonvulsants on her initial admission 11/23. Valproic acid 500 mg 3 times daily. Recheck valproic acid level subtherapeutic Head CT 12/17- for acute disease EEG - Diffuse slowing consistent with a moderate diffuse encephalopathy. No epileptiform activity. Repeat 01/10 Acetaminophen 650 by tube every 6 hours as needed fever 01/13 Held quetiapine 25 mg daily/home medication Holding tizanidine 4 mg daily 01/14 repeat EEG, neurology has been consulted Trend ammonia level 01/15 MRI brain-no acute intracranial abnormality Patient awake smiling nodding to yes and no questions however unable to move extremities-per neurology possible critical illness neuropathy Respiratory: Right thoracoscopic decortication, closure of bronchopleural fistula, debridement and irrigation of the prior chest tube wounds and placement of #2 32 [place] chest tubes 01/13 Acute hypoxic and hypercarbic respiratory failure- persistent Acute severe bilateral multifocal healthcare associated pneumonia Possible aspiration pneumonia Spontaneous right-sided tension pneumothorax Subcutaneous Emphysema CT surgery/Dr. Marquez following. CT thorax overnight 12/12 revealed significant 3.7 cm moderate right pneumothorax without tension. Pneumopericardium and significant subcutaneous emphysema. Vent bundle and bronchodilators PRVC mode 450/14/35% PEEP of 5 Epoprostanol added 12/19, removed 12/29. Albuterol/ipratropium aerosols every 4 hours with albuterol aerosols every 2 hours as needed dyspnea Duo nebs scheduled every 6 hours Wean FiO2 for goal SPO2 greater than 90% Daily CXR 01/14-CPAP trials initiated, patient averaging 9.5 hours Plan is to maintain chest tubes until off ventilator per cardiovascular surgery Cardiovascular: Septic shock- resolved Elevated troponin Type II NSTEMI secondary to demand ischemia Hyperlipidemia Holding lisinopril 30 mg daily/home medication. For dyslipidemia resume pravastatin 40 mg daily when clinically indicated Continue hydrocortisone wean Furosemide 40 mg IV daily diuresis. Renal: Acute kidney injury (resolved) Secondary to shock, off pressors Frequent urine output monitoring Daily creatinine KVO IV fluid. Furosemide 40 mg IV daily Strict I/Os FEN/GI: Acute protein calorie malnutritionsevere Lactic acidosis- resolved Severe colitis Enterovirus colitis Hyperammonemia-resolved 01/14 Hold lactulose 30 cc twice daily Tube feeding with vital 1.5 goal 55 cc now. Metoclopramide 5 mg 3 times daily. Starting today 01/12 post tracheostomy ICU electrolyte protocol Daily BMP, magnesium, phosphorus Lactulose/polythene glycol twice daily Holding dicyclomine 20 mg 3 times daily 01/13 status post PEG tube placement Vital high tube feeds 60cc/hr Heme/ID: C. difficile colitis Enterovirus colitis Septic shock Healthcare associated multifocal pneumonia Possible gram-positive cocci bacteremia Early empyema Urosepsis-Klebsiella ESBL positive 01/14 1 unit PRBCs transfused on 12/28 for hemoglobin 6.9, recheck CBC and transfuse to keep hemoglobin above 8 g% Transfuse 1 unit PRBCs 01/07.. Transfuse 2 units PRBCs 01/09 Vancomycin p.o. with pharmacy dosing C. difficile continue [id number] piperacillin/tazobactam and micafungin Currently on imipenem/cilastatin per infectious disease Bronchoscopy 12/19 with Klebsiella Pleural fluid 12/19 with Klebsiella's/Karla Pleural fluid 12/17 -g Karla albicans/glabrata Klebsiella, lactobacillus 12/17 -sputum -Klebsiella 12/17 blood-strep viridians/coag negative staph Infectious disease consulted and following. IV antibiotics micafungin and Zosyn discontinued 01/11. P.O. vancomycin continued 01/15 sputum/urine cultureKlebsiella sputum positive, patient continues with purewick urinary drainage system Endocrine: Acute hypoglycemia- resolving. Sliding scale insulin Accu-Cheks every 6 hours to maintain euglycemia Prophylaxis: GI Prophylaxis Famotidine DVT Prophylaxis -- SCDs Subcu heparin Lines: 12/17 femoral triple-lumen catheter discontinued 12/23 12/17 right radial arterial line discontinued 12/21 12/17 right 28 [place] chest tube to -40 cm suction: removed 12/26 12/17 right 32 [place] chest tube to -40 cm suction removed 01/08 12/19 -right #32 [place] chest tube to -40 cm suction removed 01/08 Right IJ cordis with dual-lumen 01/08 removed 01/11. Continue with dual chest tube on right side placed 01/08 Level 2 follow-up
[2018-01-17 15:45] LABS: Creatine Kinase 15 U/L (26-192)
--- NOTE | 2018-01-18 03:51 | XR ---
EXAM DATE: 01/18/2018 3:44 AM EST AGE/SEX: 62 years / Female INDICATIONS: Shortness of breath, possible pulmonary disease. CLINICAL DATA: This is the patient's subsequent encounter. Patient reports that signs and symptoms h ave been present for 1 month and indicates a pain score of Nonresponsive. MEDICAL/SURGICAL HISTORY: Hypertension. Hypercholesterolemia. Sepsis. Fusion, lumbar. Chest tube, right. Tracheostomy. Peg tube. COMPARISON: [facility], CHEST 1V SINGLE AP, 01/16/2018. . FINDINGS: 2 right-sided chest tubes are present. Tracheostomy in good position. Scattered subsegmental opacity in the lungs. No effusion or pneumothorax. CONCLUSION: 2 right-sided chest tubes. No pneumothorax. Scattered subsegmental opacity in the lungs. Electronically signed by: Conner Quinonez MD 01/18/2018 3:49 AM EST
[2018-01-18 05:59] LABS: Baso # (Auto) 0.1 th/mm3 (0.0-0.2); Baso % (Auto) 0.8 % (0.0-2.0); Eos # (Auto) 0.2 th/mm3 (0.0-0.4); Eos % (Auto) 1.8 % (0.0-4.0); Hemoglobin 10.7 gm/dL (11.6-15.3); Lymph # (Auto) 2.5 th/mm3 (1.0-4.8); Lymph % (Auto) 21.6 % (9.0-44.0); Mean Corpuscular HGB Conc 33.3 % (32.0-36.0); Mean Corpuscular Hemoglobin 31.3 pg (27.0-34.0); Mean Corpuscular Volume 93.9 fL (80.0-100.0); Mean Platelet Volume 8.8 fL (7.0-11.0); Mono # (Auto) 1.3 th/mm3 (0.0-0.9); Mono % (Auto) 11.3 % (0.0-8.0); Neut # (Auto) 7.4 th/mm3 (1.8-7.7); Neut % (Auto) 64.5 % (16.0-70.0); Platelet Count 565 th/mm3 (150-450); Red Blood Count 3.41 mil/mm3 (4.00-5.30); Red Cell Distribution Width 14.5 % (11.6-17.2); White Blood Count 11.5 th/mm3 (4.0-11.0)
[2018-01-18] MEDS: Insulin NovoLIN Regular Correctional Sugar Inj SQ SCH ×3 (06:10→17:34)
[2018-01-18] MEDS: Oral Hygiene Kit OROPHARYNG SCH ×4 (06:10→23:57)
[2018-01-18] MEDS: Heparin - SQ 10,000 UNITS/ML Vial SQ SCH ×3 (06:13→21:01)
[2018-01-18 06:19] LABS: Anion Gap 9 meq/L (5-15); Aspartate Aminotransferase 39 U/L (15-37); Blood Urea Nitrogen 25 mg/dL (7-18); Calcium 8.3 mg/dL (8.5-10.1); Carbon Dioxide 26.9 meq/L (21.0-32.0); Chloride 107 meq/L (98-107); Glomerular Filtration Rate Greater Than 89 mL/min (>89); Glucose,Random 127 mg/dL (74-106); Magnesium 2.1 mg/dL (1.5-2.5); Potassium 3.8 meq/L (3.5-5.1); Sodium 143 meq/L (136-145)
[2018-01-18 06:20] LABS: Alanine Aminotransferase 30 U/L (10-53); Phosphorus 3.2 mg/dL (2.5-4.9)
[2018-01-18 06:22] LABS: Alkaline Phosphatase 122 U/L (45-117); Total Protein 6.9 g/dL (6.4-8.2)
--- NOTE | 2018-01-18 08:38 | P.PNCC ---
Subjective Subjective Remarks/Hospital Course: This is a 62yF who was originally admitted on 11/23 with a diagnosis of colitis, found to have enterovirus. discharged on 12/11 at that time on PO vancomycin, but came back on 12/13 with altered mental status and hypoglycemia, again discharged on 12/15. She was mildly fatigued on 12/16 according to her and asked to wait another day before traveling back to her home in [place]. This morning, she was unarousable and her called 911. She was intubated upon arrival to the emergency department for agonal respirations. CXR demonstrates bilateral multifocal pneumonia. She is febrile, hypotensive. CVL placed in the ER and vasopressors initiated after 2L bolus crystalloid. CT chest/abd/pelvis demonstrates right pneumothorax, densely consolidated right lower lobe, bilateral pulmonary infiltrates, evidence of ongoing colitis. Patient continue to be unstable. Immediately after identifying ptx on CT scan, I emergently placed right chest tube with some improvements in hemodynamics, but ongoing distributive shock persists. I placed arterial line. No additional information available from the patient, ROS unobtainable. In discussion with the , she has not had any new complaints in the 48h she was home, and other than mild fatigue last night, no new complaints. She was able to walk to the bathroom without assistance yesterday. 12/18: shock remains. now on levophed, vasopressin, phenylephrine. second chest tube placed overnight for worsening SQ air. acidosis remains and is severe. 12/19: Afebrile. Remains on vasopressin drip only. On stress dose hydrocortisone. Evaluated by CT surgery. Not a candidate for intervention at the present time. Chest tube continues to leak. Epoprostenol added today 12/20: Afebrile. FiO2 has decreased and is currently 70%. Currently replacing potassium, phosphorus and magnesium. Recheck later this afternoon. Less chest tube leak today down to 1 chamber. 12/21: Overnight, worsening subcutaneous emphysema. A third chest tube placed by overnight short goods drier after discussion with cardiothoracic surgery. Currently hemodynamically stable. Replacing phosphorus today. To be evaluated by CT surgery today. 12/22: Remains sedated, orally intubated on mechanical ventilation. Persistent air leak and chest tube noted. 12/23: Remains sedated, orally intubated on mechanical ventilation. Air leak persists though slightly improved. PEEP at +5 FiO2 55%, inhaled Flolan continues. Central line replaced with right IJ triple-lumen catheter. 12/24: Remains sedated, orally intubated on mechanical ventilation. 1+ air leak from chest tube 3 noted. PEEP +5, FiO2 60%, inhaled Flolan continues. Decreasing subcutaneous emphysema noted. 12/25: Remains sedated, orally improved on mechanical ventilation. 1+ for leak from chest tube 2. PEEP +5, FiO2 50%. Starting to titrate inhaled Flolan down today. Initiating Lasix to mobilize fluid. 12/26: remains intubated. air leak continues from chest tube #3. drainage out of #1 and #2 are very serous. #1 was removed by myself today. all chest tube dressings changed by me today. repeat CXR pending. very volume overloaded. starting to diurese. off vasopressors. off pathway: still high fio2 requirements. 12/27: good diuresis overnight. very hypokalemic today and aggressively replacing. CXR unchanged. air leak unchanged. long discussion over long-term and short-term prognosis and plan of care with entire family today. all questions answered. 12/28: Continues to diurese. Remains on mechanical ventilation. Positive air leak in chest tube 3. 1 unit PRBCs transfused earlier for hemoglobin 6.9. 12/29: Remains on mechanical ventilation. Increasing subcutaneous emphysema noted. Air leak stopped and chest tube #2 and 3 currently. Flolan being titrated down. Chest x-ray shows appropriate positioning of 2 chest tubes with the more medial small right pneumothorax with significant subcutaneous emphysema bilaterally. Patient remains off pressors and is being diuresed to mobilize fluid. 12/30: volume removal continues. Cr still at baseline. fio2 down to 40% and off inhaled Flolan. discussed with Dr. Lynn: will need to wait at least until next week for VATS. Will need trach going forward: discussed with family and they are agreeable. Dr. Lynn asked that both chest tubes remain in place. air leak persists. remains intubated and sedated. 12/31: Sedated, orally intubated on mechanical ventilation. On 40% FiO2 PEEP + 5. Positive air leak in chest tube [address] surgery planning for VATS next week, will need tracheostomy coordinated as well. 01/01: Remains sedated, orally intubated on mechanical ventilation. PEEP +5, FiO2 35%. Being diuresed. 01/02: Sedated, orally intubated on mechanical ventilation. PEEP +5, FiO2 35%. Intermittent air leak in chest tube 3. Being diuresed 01/03: persistent air leak. hypoxia improving. discussed case with Dr. Lynn- he would like pre-operative CT chest for surgical planning. we also discussed timing of tracheostomy: it would be easier surgically to have ett in place to place double-lumen ett, so he would prefer to keep ett until after operation, and then proceed with tracheostomy. tentatively VATS planned for Friday 01/05. 01/04: No events over the night. Patient remains sedated and intubated, sedation achieved with fentanyl and propofol. T-max of 100.2 over the last 24 hours. I/O 3770/3130. Chest tubes remain on suction. 01/05: T-max 99.3. Currently afebrile. Difficulty with weaning from ventilator noted. VATS currently on hold per CT surgery. 01/06: Resting comfortably in bed in no acute distress. Plan for thoracotomy rested on Thursday night. Currently on CPAP trial. Potassium being replaced. 01/07: Resting complaint bed in no acute distress. Plan for thoracotomy tomorrow a.m. 730. Currently on CPAP trial. Transfuse when he PRBC today. Hemoglobin currently 9.6 potassium 3.9. 01/08: Today, status post right thoracoscopic decortication, closure of bronchopleural fistula with debridement and irrigation of the prior chest tube wounds with placement of 2 #32 Lebanese chest tubes by cardiothoracic surgery patellar procedure well. EBL 250. Adequate urine output. Appears stable. 01/09: T-max 100.2. Currently tachycardic. Receiving 2 units PRBCs. Potassium being replaced. Agitated on the ventilator. 01/10: Twitching on the ventilator/tremor. Temperature max 100.2. 120 cc output from chest tube overnight. Still not arousable/following commands on the ventilator. Likely tracheostomy 01/11: T-max 100.5. Status post #8 Shiley practice tracheostomy today. Order PEG tube for tomorrow. Arousable but not following commands. Thrashes back and forth. 01/12: T-max 100.4. Plan to initiate CPAP trials today. Patient does not follow commands, but does track movement. IV antibiotics discontinued yesterday Zosyn and micafungin. The patient continues on p.o. Vanco. Case discussed with CT surgery plan for continuation chest tubes until placed on trach collar. 01/13: No acute events overnight. Patient underwent PEG placement this afternoon. Remains n.p.o. 6 hours post PEG. During sedation vacation the patient becomes extremely agitated and tachycardic. Right chest tube continues on 20 cm of water suction. 01/14: Sedation vacation underway. Patient noted to have spontaneous eye opening and spontaneous movement of lower extremities but not responding to any commands and no visual tracking. EEG has been ordered. Neurology has been consulted. Noted ammonia level less than 10 this a.m. propofol and fentanyl sedation has been discontinued since yesterday. The patient will remain on Precedex to maintain ventilator synchrony but currently undergoing sedation vacation for accurate neurological assessment. The patient has been initiated on CPAP trials. 01/15: No acute changes in neurological status. Noted spontaneous eye opening today MRI performed which showed no acute intracranial abnormality. Urine culture resulted UTI gram-negative rods, Rocephin 7-day medication regimen added. The patient tolerated CPAP trials for approximately 9.5 hours yesterday. The patient continues on CPAP trials today. 01/16: The patient is noted to be awake and alert smiling nodding head to yes and no questions today. Follow commands for [employer] and by squeezing hands no movement of lower extremities noted . PEG tube site without erythema, tolerating tube feeds. Urine culture results Klebsiella ESBL, Patient Continues with a Purewick urinary drainage device. No change in chest x-ray, right chest tubes continue on suction. 01/17: T-max 99.7. Started on imipenem/cilastatin secondary to yesterday a positive Klebsiella pneumonia UTI/sputum positive. Follows commands and wings high. Muscles weak throughout. Subjective 01/18: T-max 99.7. Currently on dexmedetomidine drip at 0.6 mcg/kg/h. One large bowel movement overnight. Continues on CPAP trial. Objective Vital Signs / I&O: Vital Signs 01/17/18 09:00 01/17/18 10:00 01/17/18 11:00 Temperature Pulse Rate 81 80 87 Respiratory Rate 25 H 23 23 Blood Pressure 165/80 H 168/90 H 153/82 H Pulse Oximetry 100 100 99 01/17/18 11:20 01/17/18 12:00 01/17/18 13:00 Temperature 99.0 F Pulse Rate 87 97 H 99 H Respiratory Rate 22 24 28 H Blood Pressure 157/75 H 160/72 H Pulse Oximetry 99 100 99 01/17/18 14:00 01/17/18 14:53 01/17/18 15:00 Temperature Pulse Rate 98 H 91 H 93 H Respiratory Rate 25 H 25 H 22 Blood Pressure 147/70 H 130/64 Pulse Oximetry 99 99 98 01/17/18 16:00 01/17/18 17:00 01/17/18 18:00 Temperature 99.6 F Pulse Rate 109 H 102 H 99 H Respiratory Rate 24 22 23 Blood Pressure 131/64 136/72 150/74 H Pulse Oximetry 100 99 100 01/17/18 19:00 01/17/18 20:00 01/17/18 20:55 Temperature Pulse Rate 92 H 90 91 H Respiratory Rate 22 21 24 Blood Pressure 152/76 H 162/72 H Pulse Oximetry 100 99 100 01/17/18 21:00 01/17/18 22:00 01/17/18 23:00 Temperature Pulse Rate 95 H 102 H 101 H Respiratory Rate 25 H 24 23 Blood Pressure 174/77 H 180/79 H 146/74 H Pulse Oximetry 99 100 99 01/18/18 00:00 01/18/18 00:15 01/18/18 00:16 Temperature Pulse Rate 94 H 99 H Respiratory Rate 22 21 21 Blood Pressure 144/89 H Pulse Oximetry 98 100 01/18/18 01:00 01/18/18 02:00 01/18/18 03:00 Temperature Pulse Rate 104 H 103 H Respiratory Rate 25 H 25 H Blood Pressure 143/77 H 156/79 H 153/78 H Pulse Oximetry 99 100 01/18/18 04:00 01/18/18 04:01 01/18/18 04:03 Temperature Pulse Rate 101 H 99 H Respiratory Rate 25 H 28 H 25 H Blood Pressure 174/100 H Pulse Oximetry 100 100 01/18/18 04:04 01/18/18 05:00 01/18/18 08:11 Temperature 98.8 F Pulse Rate 102 H 97 H 86 Respiratory Rate 24 19 16 Blood Pressure 176/75 H 130/68 Pulse Oximetry 100 99 99 01/18/18 08:15 Temperature Pulse Rate Respiratory Rate 24 Blood Pressure Pulse Oximetry 100 Intake & Output 01/17/18 01/18/18 01/18/18 18:59 06:59 18:59 Intake Total 965 / 965 877 / 877 Output Total 1225 / 1225 1600 / 1600 Balance -260 / -260 -723 / -723 Weight 66.7 kg Intake: IV 350 / 350 100 / 100 Precedex Inj 1,000 MCG In NS 250 / 250 Inj 240 ML @ 0.2 MCG/KG/HR 3.48 mls/hr IV.CONT TITRATE PRN Rx# :[id number] Merrem Inj 500 MG In NS Inj 100 100 / 100 100 / 100 ML @ 200 mls/hr IV.SIG Q8H BENJAMIN Rx#:[id number] Tube Feeding 535 / 535 677 / 677 Water Bolus Amount 80 / 80 100 / 100 Output: Urine 825 / 825 Stool 400 / 400 1000 / 1000 Urine Amount (Catheter) 600 / 600 Female External 600 / 600 Chest Tube Drainage 0 / 0 Right Y Connected 0 / 0 Other: Date of Last Bowel Movement 01/17/18 01/17/18 Result Diagrams: 01/18/18 04:31 01/18/18 04:31 Other Results: Microbiology 12/19/17 11:30 Bronchial Washings - Bronchial Acid Fast Bacilli Smear - Final No acid fast bacilli seen 12/19/17 11:30 Bronchial Washings - Bronchial Mycobacterial Culture - Preliminary No growth in 4 weeks 01/14/18 01:00 Sputum - Tracheal Aspirate Gram Stain - Final 01/14/18 01:00 Sputum - Tracheal Aspirate Sputum Culture - Final Klebsiella pneumoniae 01/14/18 00:10 Catheterized Urine Urine Culture - Final Klebsiella pneumoniae ESBL pos 01/08/18 09:30 Tissue - Other Acid Fast Bacilli Smear - Final No acid fast bacilli seen 01/08/18 09:30 Tissue - Other Mycobacterial Culture - Preliminary No growth in 1 week 01/08/18 09:30 Tissue - Other Fungal Smear - Final No fungal elements seen 01/08/18 09:30 Tissue - Other Fungal Culture - Preliminary No growth in 1 week 01/10/18 01:30 Catheterized Urine Urine Culture - Final No growth in 48 hours 01/08/18 09:30 Tissue - Other Gram Stain - Final 01/08/18 09:30 Tissue - Other Wound Culture - Final No growth in 72 hours (aerobically and anaerobically ) 12/17/17 15:55 Other - Final 01/01/18 22:07 Blood - Peripheral Aerobic Blood Culture - Final No growth in 5 days 01/01/18 22:07 Blood - Peripheral Anaerobic Blood Culture - Final No growth in 5 days 01/01/18 19:45 Blood - Peripheral Aerobic Blood Culture - Final No growth in 5 days 01/01/18 19:45 Blood - Peripheral Anaerobic Blood Culture - Final No growth in 5 days 01/02/18 17:28 Sputum - Endotracheal Gram Stain - Final 01/02/18 17:28 Sputum - Endotracheal Sputum Culture - Final Klebsiella pneumoniae 12/19/17 11:30 Bronchial Washings - Bronchial Fungal Smear - Final Rare budding yeast 12/19/17 11:30 Bronchial Washings - Bronchial Fungal Culture - Preliminary 12/17/17 15:55 Fluid - Pleural fluid Gram Stain - Final 12/17/17 15:55 Fluid - Pleural fluid Body Fluid Culture - Final Lactobacillus rhamnosus Karla glabrata Klebsiella pneumoniae 12/19/17 00:56 Fluid - Pleural fluid Gram Stain - Final 12/19/17 00:56 Fluid - Pleural fluid Body Fluid Culture - Final Karla glabrata Lactobacillus rhamnosus 12/19/17 00:30 Fluid - Pleural fluid Gram Stain - Final 12/19/17 00:30 Fluid - Pleural fluid Body Fluid Culture - Final Klebsiella pneumoniae Karla albicans Karla glabrata Lactobacillus rhamnosus 12/17/17 15:55 Other - Final 12/17/17 08:24 Blood - Peripheral Aerobic Blood Culture - Final No growth in 5 days 12/17/17 08:24 Blood - Peripheral Anaerobic Blood Culture - Final No growth in 5 days 12/17/17 08:10 Blood - Peripheral Aerobic Blood Culture - Final No growth in 5 days 12/17/17 08:10 Blood - Peripheral Anaerobic Blood Culture - Final Staphylococcus coag negative Viridans streptococcus grp 12/19/17 11:30 Bronchial - Bronchial Gram Stain - Final 12/19/17 11:30 Bronchial - Bronchial Bronchial Culture - Final Klebsiella pneumoniae 12/17/17 15:54 Sputum - Endotracheal Gram Stain - Final 12/17/17 15:54 Sputum - Endotracheal Sputum Culture - Final Klebsiella pneumoniae 12/17/17 15:55 Stool Stool for WBCs - Final Few WBC's 12/17/17 13:54 Urine - Catheterized Urine Streptococcus pneumoniae Antigen ( M - Final Presumptive negative for streptococcus pneumoniae antigen, suggesting no current or recent infection. Infection due to Streptococcus pneumoniae cannot be ruled out since the antigen present in the sample may be below the detection limit of the test. 12/17/17 13:54 Urine - Catheterized Urine Legionella Antigen - Final Presumptive negative for Legionella pneumophila serogroup 1 antigen in urine, suggesting no recent or recurrent infection. Infection due to Legionella cannot be ruled out since other serogroups and species may cause disease, antigen may not be present in urine in early infection, and the level of antigen present in the urine may be below the detection limit of the test. 12/17/17 15:55 Nasal Aspirate Influenza Types A,B Antigen - Final Negative for FLU A and B antigen Infection due to influenza A or B cannot be ruled out since the antigen present in the sample may be below the detection limit of the test. Imaging: Chest X-Ray 12/17/17 00:00 CONCLUSION: 1. Persistent bilateral airspace infiltrates. 2. Interval placement of a right-sided thoracostomy tube. There does appear to be an apical lateral 1.5 cm right pneumothorax. 3. Extensive subcutaneous and deep tissue emphysematous changes about the right hemithorax. Chest X-Ray 12/17/17 00:00 CONCLUSION: Right-sided chest tube with slight increase in right pneumothorax compared with earlier exam. Slight increase in left basilar airspace disease since earlier exam. Slight worsening of subcutaneous air with extension into the left hemithorax and neck. Chest X-Ray 12/17/17 08:02 CONCLUSION: Satisfactory support line and tube positioning. Bilateral infiltrates. Head CT 12/17/17 08:02 CONCLUSION: 1. 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 2. Otherwise negative. . Abdomen/Pelvis CT 12/17/17 10:45 CONCLUSION: 1. Moderate diffuse colonic wall thickening exaggerated by lack of colonic distention. This may be due to low-protein state/edema. However, differential considerations include infectious and inflammatory colitis. 2. Moderate-sized right hydropneumothorax with airspace disease in the lung bases as described on chest CT. 3. Additional ancillary findings, as above. Chest CT 12/17/17 10:45 CONCLUSION: 1. Small to moderate-sized right-sided hydropneumothorax. 2. Right lower lobe consolidation with air bronchograms. Differential considerations include aspiration and lobar pneumonia. 3. Patchy diffuse groundglass opacities most prominently in the upper lobes bilaterally. Differential considerations include bronchopneumonia, atypical infection and atypical pulmonary edema. 4. Mild mediastinal adenopathy, likely reactive. Chest X-Ray 12/17/17 22:00 CONCLUSION: Placement of second right-sided chest tube with near complete resolution of previous right pneumothorax. Chest X-Ray 12/18/17 05:00 CONCLUSION: 1. Stable bilateral multifocal consolidative infiltrates. 2. 2 right chest drainage tubes in place; no pneumothorax seen. Chest X-Ray 12/19/17 00:00 CONCLUSION: 1. 2 right chest tubes remain present and there is now a small pneumothorax. There is also increased right chest wall soft tissue air. 2. Stable severe bilateral airspace consolidation. Chest X-Ray 12/19/17 05:00 CONCLUSION: Findings suggest reaccumulation of right pneumothorax with both right-sided chest tubes unchanged in position. Chest X-Ray 12/19/17 10:08 CONCLUSION: 1. 2 right chest tubes are present and no pneumothorax is identified. 2. Stable bilateral airspace consolidation primarily in the lower lung zones. Chest X-Ray 12/20/17 06:00 CONCLUSION: 1. Decrease in size of right apical pneumothorax to 4 mm. 2. Diffuse bilateral airspace consolidation similar in severity and distribution to prior. Chest X-Ray 12/21/17 02:48 CONCLUSION: 1. Large amount of chest wall and neck soft tissue emphysema present, much worse than yesterday. No definite pneumothorax. Right chest tubes remain in place. 2. Worsening bilateral airspace disease, left more so than right. Chest CT 12/21/17 04:03 CONCLUSION: 1. Moderate size right pneumothorax without tension. Also pneumopericardium and pneumomediastinum. Massive chest wall emphysema. 2. Bilateral airspace disease. 3.7 cm bilobed cavitary lesion of the right lower lobe. 3. Small left pleural effusion. No left pneumothorax. Chest X-Ray 12/21/17 07:31 CONCLUSION: Progression of the extensive subcutaneous emphysema with [address] on the right. Chest X-Ray 12/22/17 06:00 CONCLUSION: 1. Decreased chest wall emphysema. No pneumothorax seen. 2. Diffuse bilateral airspace disease without significant change. Chest X-Ray 12/23/17 13:34 CONCLUSION: 1. Interval placement of right internal jugular central venous line with no pneumothorax. 2. 3 right-sided chest tubes remain in place. 3. Interval improvement in subcutaneous emphysema. 4. The right costophrenic angle with consolidative opacity in the right lung base. Chest X-Ray 12/26/17 00:00 CONCLUSION: 1. Lines and tubes remain in place. 2. No significant interval change with persistent mild diffuse bilateral pulmonary opacity. Chest X-Ray 12/26/17 05:00 CONCLUSION: Decreasing subcutaneous emphysema. Otherwise no change. Chest X-Ray 12/27/17 05:00 CONCLUSION: Stable chest appearance Chest X-Ray 12/29/17 07:29 CONCLUSION: 1. Significant interval increase in bilateral subcutaneous emphysema with small apparent medial right pneumothorax now noted. 2. The patient remains intubated and there are 2 right-sided chest tubes in place. Chest X-Ray 12/30/17 07:39 CONCLUSION: 1. No significant change. 2. No evidence of pneumothorax. 3. Stable supportive devices. 4. Extensive airspace disease remains evident throughout both lungs without significant improvement. Chest X-Ray 12/31/17 05:00 CONCLUSION: Little change from prior exam Chest CT 01/03/18 11:56 CONCLUSION: 1. Consolidation at both lung bases has improved. Cavitary lesions on the right are slightly larger as measured above. 2. Improving pneumomediastinum, pneumopericardium and subcutaneous emphysema. Near complete resolution of previous right pneumothorax. 2 right chest tubes present. Trace pleural fluid present. 3. Patchy airspace disease remains in the lungs probably with some fibrotic changes well. 4. Endotracheal tube and nasogastric tube in good position. Chest X-Ray 01/04/18 05:00 CONCLUSION: 1. Decreased lung volumes. Persistent bilateral pulmonary opacity. 2. Right-sided chest tubes. Bilateral subcutaneous emphysema. No evidence of pneumothorax. Chest X-Ray 01/07/18 06:00 CONCLUSION: 1. Interval decrease in subcutaneous emphysema. 2 right-sided chest tubes remaining in place and no visualized pneumothorax. 2. Interval improvement in bilateral pulmonary opacity is well. 3. Masslike opacity in the right perihilar region. Chest X-Ray 01/08/18 06:00 CONCLUSION: No significant change. No perceptible pneumothorax. Chest X-Ray 01/08/18 10:25 CONCLUSION: 1. New right IJ central catheter in satisfactory position. 2. ET tube and chest tubes in satisfactory position. 3. Extensive bilateral pulmonary infiltrates. Chest X-Ray 01/09/18 06:00 CONCLUSION: Tubes and catheters in good position. Patchy infiltrates right greater than left with right apical pleural thickening are unchanged Chest X-Ray 01/10/18 06:00 CONCLUSION: Tubes and catheters in good position. Patchy infiltrate right midlung zone left lung base are unchanged. Chest X-Ray 01/11/18 06:00 CONCLUSION: No significant interval change. Bilateral pulmonary opacity again seen. Chest X-Ray 01/11/18 15:27 CONCLUSION: 1. Interval placement of tracheostomy tube. The endotracheal tube and nasogastric tube have been removed. 2. 2 right-sided chest tube in place with right apical pleural parenchymal change. 3. Hazy opacity remains in both lungs without change right greater than left. Chest X-Ray 01/12/18 06:00 CONCLUSION: 1. Right IJ central venous catheter no longer seen. 2. No significant interval change in patchy bilateral lung opacity. 3. Right-sided chest tubes remain in place. No evidence of pneumothorax. Chest X-Ray 01/14/18 00:00 CONCLUSION: 1. Nasogastric tube no longer seen. 2. No significant interval change in mild bilateral pulmonary opacity. Head MRI 01/15/18 20:01 CONCLUSION: 1. Bilateral mastoiditis. 2. No acute intercranial findings. Chest X-Ray 01/16/18 00:00 CONCLUSION: Stable exam with 2 right-sided chest tubes. No pneumothorax. No new infiltrate. Chest X-Ray 01/18/18 06:00 CONCLUSION: 2 right-sided chest tubes. No pneumothorax. Scattered subsegmental opacity in the lungs. Objective Remarks: GENERAL: 62-year-old female, on ventilator via tracheostomy and, chronically ill-appearing , smiling, nodding head to yes and no questions HEENT: Pupils are equal and reactive, sclerae are anicteric, status post tracheostomy on 01/11 NECK: Supple, no rigidity, no neck vein distention, no carotid bruit, tracheostomy site without bleeding. CHEST: Coarse breath sounds bilateral, no wheezes, currently no subcu emphysema. 1 dual right-sided chest tubes on suction, CARDIOVASCULAR: Regular regular rate and rhythm, no murmurs appreciated ABDOMEN: Soft, nontender, nondistended, bowel sounds present, no hepatomegaly or splenomegaly appreciated MUSCULOSKELETAL: Extremities are warm and well perfused, peripheral pulses are present, 1+ pitting edema NEUROLOGICAL: Continues on low-dose dexamethasone.tracheostomy site without erythema or drainage. spontaneous eye opening nodding head to yes and no questions., visual tracking noted today. Pupils are equal and reactive, no gaze deviation. No movement of lower extremities upon command. SKIN: Sacral deep tissue injury improving Assessment and Plan - Assessment and Plan Plan: Neuro/Psych: Acute metabolic encephalopathy Possible seizure disorder Critical illness polyneuropathy ? Dexmedetomidine infusion for maintenance of ventilator synchrony and currently 0.6 m/kg/h Daily sedation vacation. Goal RASS -0 She was started on anticonvulsants on her initial admission 11/23. Valproic acid 500 mg 3 times daily. Recheck valproic acid level subtherapeutic Head CT 12/17- for acute disease EEG - Diffuse slowing consistent with a moderate diffuse encephalopathy. No epileptiform activity. Repeat 01/10 Acetaminophen 650 by tube every 6 hours as needed fever 01/13 Held quetiapine 25 mg daily/home medication Holding tizanidine 4 mg daily 01/14 repeat EEG negative for seizure activity., neurology has been consulted. 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 Marquez following. CT thorax overnight 12/12 revealed significant 3.7 cm moderate right pneumothorax without tension. Pneumopericardium and significant subcutaneous emphysema. Vent bundle and bronchodilators PRVC mode 450/14/35% PEEP of 5 Epoprostanol added 12/19, removed 12/29. Albuterol/ipratropium aerosols every 4 hours with albuterol aerosols every 2 hours as needed dyspnea Duo nebs scheduled every 6 hours Wean FiO2 for goal SPO2 greater than 90% Daily CXR 01/14-CPAP trials initiated, patient averaging 9.5 hours Plan is to maintain chest tubes until off ventilator per cardiovascular surgery Cardiovascular: Septic shock- resolved Elevated troponin Type II NSTEMI secondary to demand ischemia Hyperlipidemia Holding lisinopril 30 mg daily/home medication. For dyslipidemia resume pravastatin 40 mg daily when clinically indicated Continue hydrocortisone wean Renal: Acute kidney injury (resolved) Secondary to shock, off pressors Frequent urine output monitoring Accurate I's and O's FEN/GI: Acute protein calorie malnutritionsevere Lactic acidosis- resolved Severe colitis Enterovirus colitis Hyperammonemia-resolved Elevated AST 01/14 Hold lactulose 30 cc twice daily Tube feeding with vital 1.5 goal 55 cc now. Metoclopramide 5 mg 3 times daily. Starting today 01/12 post tracheostomy ICU electrolyte protocol Daily BMP, magnesium, phosphorus Lactulose/polythene glycol twice daily Holding dicyclomine 20 mg 3 times daily 01/13 status post PEG tube placement Vital high tube feeds 60cc/hr Heme/ID: C. difficile colitis Enterovirus colitis Septic shock Healthcare associated multifocal pneumonia Possible gram-positive cocci bacteremia Early empyema Urosepsis-Klebsiella ESBL positive 01/14 Leukocytosis Normocytic anemia Thrombocytopenia 1 unit PRBCs transfused on 12/28 for hemoglobin 6.9, recheck CBC and transfuse to keep hemoglobin above 8 g% Transfuse 1 unit PRBCs 01/07.. Transfuse 2 units PRBCs 01/09 Vancomycin p.o. with pharmacy dosing C. difficile continue Caxzzoaftste61/19 piperacillin/tazobactam and micafungin Currently on meropenem per infectious disease Bronchoscopy 12/19 with Klebsiella Pleural fluid 12/19 with Klebsiella's/Karla Pleural fluid 12/17 -g Karla albicans/glabrata Klebsiella, lactobacillus 12/17 -sputum -Klebsiella 12/17 blood-strep viridians/coag negative staph Infectious disease consulted and following. IV antibiotics micafungin and Zosyn discontinued 01/11. P.O. vancomycin continued 01/15 sputum/urine cultureKlebsiella sputum positive, patient continues with purewick urinary drainage system Endocrine: Acute hypoglycemia- resolving. Sliding scale insulin Accu-Cheks every 6 hours to maintain euglycemia Prophylaxis: GI Prophylaxis Famotidine DVT Prophylaxis -- SCDs Subcu heparin Lines: 12/17 femoral triple-lumen catheter discontinued 12/23 12/17 right radial arterial line discontinued 12/21 12/17 right 28 Lebanese chest tube to -40 cm suction: removed 12/26 12/17 right 32 Lebanese chest tube to -40 cm suction removed 01/08 12/19 -right #32 Lebanese chest tube to -40 cm suction removed 01/08 Right IJ cordis with dual-lumen 01/08 removed 01/11. Continue with dual chest tube on right side placed 01/08 Level 2 follow-up
[2018-01-18 08:56] LABS: Eosinophils 1 % (0-4); Lymphocytes 12 % (9-44); Metamyelocytes 1 % (0-1); Monocytes 11 % (0-8); Myelocytes 6 % (0-0); Tallied Nucleated RBC 1 (0-0)
[2018-01-18 08:57] LABS: Dimorphic RBC Present; Toxic Granulation 1+
[2018-01-18] MEDS: Famotidine 20 MG Tablet PO SCH ×2 (10:14→20:06)
[2018-01-18] MEDS: Senna/Docusate Sodium 8.6/50 MG Tablet PO SCH ×2 (10:14→20:06)
[2018-01-18] MEDS: Sodium Chloride 0.9% 2 ML Flush BID IV.FLUSH SCH (10:14)
[2018-01-18] MEDS: Carboxymethylcellulose 0.5% Opth Drops 15 ML Bottle EACH EYE SCH ×2 (10:15→20:06)
[2018-01-18] MEDS: Collagenase Oint 30 GM Tube TOPICAL SCH (10:15)
[2018-01-18] MEDS: Potassium Chloride 25 MEQ Effervescent Tablet NG/OG SCH (10:15)
[2018-01-18] MEDS: Chlorhexidine 0.12% Oral Kit 15 ML UDC OROPHARYNG SCH ×2 (10:15→19:55)
[2018-01-18] MEDS: Dexmedetomidine Inj 1,000 MCG in Sodium Chlor 0.9% Inj 240 ML IV.CONT PRN (10:18)
--- NOTE | 2018-01-18 11:51 | US ---
EXAM DATE: 01/18/2018 11:46 AM EST AGE/SEX: 62 years / Female INDICATIONS: Left arm swelling. CLINICAL DATA: This is the patient's initial encounter. Patient reports that signs and symptoms have been present for 1 day and indicates a pain score of 0/10. MEDICAL/SURGICAL HISTORY: Hypertension. Hyperlipidemia. UTI. C-diff. . Back surgery. Tracheost mann. COMPARISON: No prior exams available for comparison. FINDINGS: The examination demonstrates occlusion of the cephalic vein down to the antecubital fossa. The remainder of the deep venous system of the left upper extremity is widely patent. The axillary ve in, the visualized portion of subclavian vein and jugular vein are patent Other: None. CONCLUSION: 1. Thrombosis of the cephalic vein in in the upper arm. Electronically signed by: Lucas Yates MD 01/18/2018 11:50 AM EST
--- NOTE | 2018-01-18 12:15 | P.PNCV ---
- Note Subjective/Hospital Course: pt now has 3 right sided chest tube #3 has 2-3 = air leak , #2 +1 all to 40cm suction pt now off pressors remains sedated on vent 55% fio2 +8 peep may need to re-eval for repeat ct scan in am pt will not tolerate one lung ventilation at this during any surgery will continue to monitor 12/23 pt now on 75% Fi02 peep down to 5 , no on flolan sub q emphysema with some improvement chest x 3 apical #3 +2 continuous air leak mid #2 + 1 air leak lower #1 no air leak all to 40 cm suction will monitor 12/26 Hemodynamically and clinically better One chest tube removed. 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 air leak at site all chest tube site area cleansed with chlorhexidine, iodoform gauze to old chest tube site vaseline gauze to other chest tubes / dry dressing applied / also # 2 chest tube had kink placed 2 tongue depressors along side of tube top prevent kinking and taped to chest pt still had +1-2 air leak in #3 chest tube 01/04 ct chest reviewed stable / improved, no air leak in chest tubes at present continue to monitor / no surgery indicated at present with: Improving pneumomediastinum, pneumopericardium and subcutaneous emphysema. Near complete resolution of previous right pneumothorax. 01/[address] Joseph and Dr Garces pt does have air leak when turned to left +2 , discussed with Dr Marquez/ covering for Dr Lynn will proceed with surgery on Thursday right thoracotomy, decortication, bleb resection / discussed with 01/07 pt on CPAP trials, still has + 2 air leak #3 marked chest tube for surgery on am 01/08 surgery Preoperative Diagnosis (1) Loculated pleural effusion (2) Bronchopleural fistula Postoperative Diagnosis: same Date of procedure: 01/08/18 Procedure: Right thoracoscopic decortication, closure of bronchopleural fistula Debridement and irrigation of the prior chest tube wounds (3 01/09/18 Intubated, sedated 01/10 on vent PRVC mode for trach today chest tube to 20cm suction, no air leak 01/11 s/p bedside trach, remains on PRVC mode and sedation grimaces to pain, opens eyes, not follows commands no air leak in chest tube, leave to suction for now recommend keeping chest tube in / until pt off vent and tolerating trach collar 01/13 sedated on vent / for bedside PEG tube today leave chest tube to suction until off vent 01/18 tolerating CPAP trials / weaning precedex trach midline no air leak in chest tube / ok to change chest tube dressing q48 hrs Objective: Vital Signs - 24 hr 01/17/18 13:00 01/17/18 14:00 01/17/18 14:53 Temperature Pulse Rate 99 H 98 H 91 H Respiratory Rate 28 H 25 H 25 H Blood Pressure 160/72 H 147/70 H Pulse Oximetry 99 99 99 01/17/18 15:00 01/17/18 16:00 01/17/18 17:00 Temperature 99.6 F Pulse Rate 93 H 109 H 102 H Respiratory Rate 22 24 22 Blood Pressure 130/64 131/64 136/72 Pulse Oximetry 98 100 99 01/17/18 18:00 01/17/18 19:00 01/17/18 20:00 Temperature Pulse Rate 99 H 92 H 90 Respiratory Rate 23 22 21 Blood Pressure 150/74 H 152/76 H 162/72 H Pulse Oximetry 100 100 99 01/17/18 20:55 01/17/18 21:00 01/17/18 22:00 Temperature Pulse Rate 91 H 95 H 102 H Respiratory Rate 24 25 H 24 Blood Pressure 174/77 H 180/79 H Pulse Oximetry 100 99 100 01/17/18 23:00 01/18/18 00:00 01/18/18 00:15 Temperature Pulse Rate 101 H 94 H 99 H Respiratory Rate 23 22 21 Blood Pressure 146/74 H 144/89 H Pulse Oximetry 99 98 01/18/18 00:16 01/18/18 01:00 01/18/18 02:00 Temperature Pulse Rate 104 H 103 H Respiratory Rate 21 25 H 25 H Blood Pressure 143/77 H 156/79 H Pulse Oximetry 100 99 100 01/18/18 03:00 01/18/18 04:00 01/18/18 04:01 Temperature Pulse Rate 101 H 99 H Respiratory Rate 25 H 28 H Blood Pressure 153/78 H 174/100 H Pulse Oximetry 100 01/18/18 04:03 01/18/18 04:04 01/18/18 05:00 Temperature 98.8 F Pulse Rate 102 H 97 H Respiratory Rate 25 H 24 19 Blood Pressure 176/75 H 130/68 Pulse Oximetry 100 100 99 01/18/18 07:00 01/18/18 08:00 01/18/18 08:11 Temperature 98.8 F Pulse Rate 91 H 88 86 Respiratory Rate 23 20 16 Blood Pressure 162/86 H 150/78 H Pulse Oximetry 100 99 99 01/18/18 08:15 01/18/18 09:00 01/18/18 10:00 Temperature Pulse Rate 92 H 87 Respiratory Rate 24 24 23 Blood Pressure 159/86 H 150/83 H Pulse Oximetry 100 100 99 01/18/18 10:15 01/18/18 11:00 01/18/18 11:59 Temperature Pulse Rate 114 H 109 H Respiratory Rate 22 29 H 28 H Blood Pressure 163/91 H Pulse Oximetry 99 100 GENERAL: awake , very lethargic, attempts to follow simple commands per nursing SKIN: Warm and dry. HEAD: Normocephalic. EYES: No scleral icterus. No injection or drainage. NECK: Supple, trachea midline. No JVD or lymphadenopathy. CARDIOVASCULAR: Regular rate and rhythm without murmurs, gallops, or rubs. RESPIRATORY: diminished in bases, trach midline Breath sounds equal bilaterally. No accessory muscle use. GASTROINTESTINAL: Abdomen soft, non-tender, nondistended. MUSCULOSKELETAL: No cyanosis, or edema. BACK: Nontender without obvious deformity. No CVA tenderness. Labs: Laboratory Results - last 12 hr 01/18/18 01/18/18 01/18/18 04:31 04:31 06:06 WBC 11.5 H RBC 3.41 L Hgb 10.7 L Hct 32.0 L MCV 93.9 MCH 31.3 MCHC 33.3 RDW 14.5 Plt Count 565 H MPV 8.8 Prelim Diff (Auto) Slide review pending Neut % (Auto) 64.5 Lymph % (Auto) 21.6 Clark % (Auto) 11.3 H Eos % (Auto) 1.8 Baso % (Auto) 0.8 Neut # (Auto) 7.4 Lymph # (Auto) 2.5 Clark # (Auto) 1.3 H Eos # (Auto) 0.2 Baso # (Auto) 0.1 WBC Differential Manual diff final Seg Neuts % (Manual) 63 Band Neuts % (Manual) 4 Lymphocytes % (Manual) 12 Monocytes % (Manual) 11 H Eosinophils % (Manual) 1 Basophils % (Manual) 2 Metamyelocytes % (Man) 1 Myelocytes % (Man) 6 H Abs Neuts (Manual) 8.5 H Nucleated RBCs/100 WBC 1 H Differential Comment . Toxic Granulation 1+ H Platelet Estimate High H Platelet Morphology Enlarged H Dimorphic RBCs Present H Sodium 143 Potassium 3.8 Chloride 107 Carbon Dioxide 26.9 Anion Gap 9 BUN 25 H Creatinine 0.46 L Estimated GFR Greater than 89 POC Glucose 117 H Random Glucose 127 H Calcium 8.3 L Phosphorus 3.2 Magnesium 2.1 Total Bilirubin 0.2 AST 39 H ALT 30 Alkaline Phosphatase 122 H Total Protein 6.9 Albumin 2.0 L Result Diagrams: 01/18/18 04:31 01/18/18 04:31 - Plan (1) Respiratory failure Plan: on vent 35% /tolerating CPAP trials s/p trach leave chest tube in / keep to 20cm suction until weaned off vent (2) Pneumonia (1) Respiratory failure Qualifiers: Chronicity: acute Respiratory failure complication: hypoxia and hypercapnia Qualified Code(s): J96.01 - Acute respiratory failure with hypoxia; J96.02 - Acute respiratory failure with hypercapnia (2) Pneumonia Qualifiers: Pneumonia type: due to unspecified organism Laterality: bilateral Lung location: unspecified part of lung Qualified Code(s): J18.9 - Pneumonia, unspecified organism
--- NOTE | 2018-01-18 16:10 | P.PNID ---
Subjective Remarks: Noted positive urine culture with ESBL Klebsiella started on meropenem on vent. No distress. afebrile Antibiotics: meropenem Lines: Lines ok Past Medical History: reviewed Allergies/Adverse Reactions: Allergies No Known Allergies Allergy (Verified 12/13/17 08:04) Objective Vital Signs 01/17/18 17:00 01/17/18 18:00 01/17/18 19:00 Temperature Pulse Rate 102 H 99 H 92 H Respiratory Rate 22 23 22 Blood Pressure 136/72 150/74 H 152/76 H Pulse Oximetry 99 100 100 01/17/18 20:00 01/17/18 20:55 01/17/18 21:00 Temperature Pulse Rate 90 91 H 95 H Respiratory Rate 21 24 25 H Blood Pressure 162/72 H 174/77 H Pulse Oximetry 99 100 99 01/17/18 22:00 01/17/18 23:00 01/18/18 00:00 Temperature Pulse Rate 102 H 101 H 94 H Respiratory Rate 24 23 22 Blood Pressure 180/79 H 146/74 H 144/89 H Pulse Oximetry 100 99 98 01/18/18 00:15 01/18/18 00:16 01/18/18 01:00 Temperature Pulse Rate 99 H 104 H Respiratory Rate 21 21 25 H Blood Pressure 143/77 H Pulse Oximetry 100 99 01/18/18 02:00 01/18/18 03:00 01/18/18 04:00 Temperature Pulse Rate 103 H 101 H Respiratory Rate 25 H 25 H Blood Pressure 156/79 H 153/78 H 174/100 H Pulse Oximetry 100 100 01/18/18 04:01 01/18/18 04:03 01/18/18 04:04 Temperature Pulse Rate 99 H 102 H Respiratory Rate 28 H 25 H 24 Blood Pressure 176/75 H Pulse Oximetry 100 100 01/18/18 05:00 01/18/18 07:00 01/18/18 08:00 Temperature 98.8 F 98.8 F Pulse Rate 97 H 91 H 88 Respiratory Rate 19 23 20 Blood Pressure 130/68 162/86 H 150/78 H Pulse Oximetry 99 100 99 01/18/18 08:11 01/18/18 08:15 01/18/18 09:00 Temperature Pulse Rate 86 92 H Respiratory Rate 16 24 24 Blood Pressure 159/86 H Pulse Oximetry 99 100 100 01/18/18 10:00 01/18/18 10:15 01/18/18 11:00 Temperature Pulse Rate 87 114 H Respiratory Rate 23 22 29 H Blood Pressure 150/83 H 163/91 H Pulse Oximetry 99 99 100 01/18/18 11:59 01/18/18 12:00 01/18/18 13:00 Temperature 98.5 F Pulse Rate 109 H 107 H 108 H Respiratory Rate 28 H 29 H 28 H Blood Pressure 162/93 H 177/92 H Pulse Oximetry 99 100 01/18/18 14:00 01/18/18 15:49 Temperature Pulse Rate 106 H 100 H Respiratory Rate 29 H 27 H Blood Pressure 169/96 H Pulse Oximetry 99 100 Intake & Output 01/17/18 01/18/18 01/18/18 18:59 06:59 18:59 Intake Total 965 / 965 977 / 977 250 / 250 Output Total 1225 / 1225 1600 / 1600 Balance -260 / -260 -623 / -623 250 / 250 Weight 66.7 kg Intake: IV 350 / 350 200 / 200 250 / 250 Precedex Inj 1,000 MCG In NS 250 / 250 250 / 250 Inj 240 ML @ 0.2 MCG/KG/HR 3.48 mls/hr IV.CONT TITRATE PRN Rx# :[id number] Merrem Inj 500 MG In NS Inj 100 100 / 100 200 / 200 ML @ 200 mls/hr IV.SIG Q8H BENJAMIN Rx#:[id number] Tube Feeding 535 / 535 677 / 677 Water Bolus Amount 80 / 80 100 / 100 Output: Urine 825 / 825 Stool 400 / 400 1000 / 1000 Urine Amount (Catheter) 600 / 600 Female External 600 / 600 Chest Tube Drainage 0 / 0 Right Y Connected 0 / 0 Other: Date of Last Bowel Movement 01/17/18 01/17/18 01/17/18 12/19/17 11:30 Bronchial Washings - Bronchial Fungal Smear - Final Rare budding yeast 12/19/17 11:30 Bronchial Washings - Bronchial Fungal Culture - Final 12/19/17 11:30 Bronchial Washings - Bronchial Acid Fast Bacilli Smear - Final No acid fast bacilli seen 12/19/17 11:30 Bronchial Washings - Bronchial Mycobacterial Culture - Preliminary No growth in 4 weeks 01/14/18 01:00 Sputum - Tracheal Aspirate Gram Stain - Final 01/14/18 01:00 Sputum - Tracheal Aspirate Sputum Culture - Final Klebsiella pneumoniae 01/14/18 00:10 Catheterized Urine Urine Culture - Final Klebsiella pneumoniae ESBL pos 01/08/18 09:30 Tissue - Other Acid Fast Bacilli Smear - Final No acid fast bacilli seen 01/08/18 09:30 Tissue - Other Mycobacterial Culture - Preliminary No growth in 1 week 01/08/18 09:30 Tissue - Other Fungal Smear - Final No fungal elements seen 01/08/18 09:30 Tissue - Other Fungal Culture - Preliminary No growth in 1 week Lab - Hematology Results 01/17/18 01/18/18 04:25 04:31 WBC 9.6 11.5 H RBC 3.34 L 3.41 L Hgb 10.6 L 10.7 L Hct 31.3 L 32.0 L MCV 93.5 93.9 MCH 31.8 31.3 MCHC 34.0 33.3 RDW 14.8 14.5 Plt Count 489 H 565 H MPV 8.6 8.8 Prelim Diff (Auto) Slide review pending Slide review pending Neut % (Auto) 62.5 64.5 Lymph % (Auto) 20.2 21.6 Treasure % (Auto) 14.6 H 11.3 H Eos % (Auto) 1.7 1.8 Baso % (Auto) 1.0 0.8 Neut # (Auto) 6.0 7.4 Lymph # (Auto) 1.9 2.5 Treasure # (Auto) 1.4 H 1.3 H Eos # (Auto) 0.2 0.2 Baso # (Auto) 0.1 0.1 WBC Differential Manual diff final Manual diff final Seg Neuts % (Manual) 41 63 Band Neuts % (Manual) 22 H 4 Lymphocytes % (Manual) 15 12 Monocytes % (Manual) 12 H 11 H Eosinophils % (Manual) 1 1 Basophils % (Manual) 1 2 Metamyelocytes % (Man) 6 H 1 Myelocytes % (Man) 2 H 6 H Abs Neuts (Manual) 6.8 8.5 H Nucleated RBCs/100 WBC 1 H Differential Comment . . Toxic Granulation 1+ H Platelet Estimate High H High H Platelet Morphology Normal Enlarged H RBC Morphology Normal Dimorphic RBCs Present H Lab - Chemistry Results 01/16/18 01/17/18 01/17/18 18:04 01:18 04:25 Sodium 141 Potassium 3.7 Chloride 104 Carbon Dioxide 26.9 Anion Gap 10 BUN 25 H Creatinine 0.42 L Estimated GFR Greater than 89 POC Glucose 124 H 142 H Random Glucose 123 H Calcium 8.4 L Phosphorus 3.9 Magnesium 1.8 Total Bilirubin AST ALT Alkaline Phosphatase Total Creatine Kinase Troponin I Total Protein Albumin 01/17/18 01/17/18 01/17/18 05:46 12:59 14:53 Sodium Potassium Chloride Carbon Dioxide Anion Gap BUN Creatinine Estimated GFR POC Glucose 106 104 Random Glucose Calcium Phosphorus Magnesium Total Bilirubin AST ALT Alkaline Phosphatase Total Creatine Kinase 15 L Troponin I Less than 0.02 L Total Protein Albumin 01/17/18 01/17/18 01/17/18 17:44 21:01 23:48 Sodium Potassium Chloride Carbon Dioxide Anion Gap BUN Creatinine Estimated GFR POC Glucose 119 H 138 H Random Glucose Calcium Phosphorus Magnesium Total Bilirubin AST ALT Alkaline Phosphatase Total Creatine Kinase Troponin I Less than 0.02 L Total Protein Albumin 01/18/18 01/18/18 04:31 06:06 Sodium 143 Potassium 3.8 Chloride 107 Carbon Dioxide 26.9 Anion Gap 9 BUN 25 H Creatinine 0.46 L Estimated GFR Greater than 89 POC Glucose 117 H Random Glucose 127 H Calcium 8.3 L Phosphorus 3.2 Magnesium 2.1 Total Bilirubin 0.2 AST 39 H ALT 30 Alkaline Phosphatase 122 H Total Creatine Kinase Troponin I Total Protein 6.9 Albumin 2.0 L Imaging: ITS Impressions Head CT 12/17/17 08:02 CONCLUSION: 1. 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 2. Otherwise negative. . Abdomen/Pelvis CT 12/17/17 10:45 CONCLUSION: 1. Moderate diffuse colonic wall thickening exaggerated by lack of colonic distention. This may be due to low-protein state/edema. However, differential considerations include infectious and inflammatory colitis. 2. Moderate-sized right hydropneumothorax with airspace disease in the lung bases as described on chest CT. 3. Additional ancillary findings, as above. Chest CT 01/03/18 11:56 CONCLUSION: 1. Consolidation at both lung bases has improved. Cavitary lesions on the right are slightly larger as measured above. 2. Improving pneumomediastinum, pneumopericardium and subcutaneous emphysema. Near complete resolution of previous right pneumothorax. 2 right chest tubes present. Trace pleural fluid present. 3. Patchy airspace disease remains in the lungs probably with some fibrotic changes well. 4. Endotracheal tube and nasogastric tube in good position. Head MRI 01/15/18 20:01 CONCLUSION: 1. Bilateral mastoiditis. 2. No acute intercranial findings. Venous Doppler Study 01/18/18 00:00 CONCLUSION: 1. Thrombosis of the cephalic vein in in the upper arm. Chest X-Ray 01/18/18 06:00 CONCLUSION: 2 right-sided chest tubes. No pneumothorax. Scattered subsegmental opacity in the lungs. Physical Exam: GENERAL: Patient on the ventilator. SKIN: Warm and dry. No rash HEENT: No icterus. NECK: Trachea midline. No JVD. CARDIOVASCULAR: Regular rate and rhythm RESPIRATORY: No accessory muscle use. Decreased breath sounds. CT R in place with serosang dc GASTROINTESTINAL: Abdomen soft, non-tender, distended. MUSCULOSKELETAL: Extremities without clubbing, cyanosis, NEUROLOGICAL: awake, alert, follows, interacts intermittently PSYCHIATRIC: unable to assess Assessment and Plan - Plan Sepsis (fever, leucocytosis) ongoing possible new. Coag neg staph likely pseudobacteremia Strep viridans: ? related to empyema torie Strep. 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 R Meropenem -dp fistula repair PNA, GNB R complicated fluid collection pneumohydrothorax 2/2 BP fistula sp CTx 3 placements Acute VDRF recent pseudomembranous colitis - stool now formed, bowell thickening on CT + DNA UTI, ESBL+ Kleb pneumo Doubt PNA, but airways probaly colonised with Kleb Recs: change meropenm tp Ertapenem cont oral vancomycin while she is on abx
[2018-01-18] MEDS ORDERED: hydrALAZINE HCl Inj 20 MG/ML Vial IV.PUSH PRN (17:19)
[2018-01-18] MEDS ORDERED: Morphine Sulfate Inj 2 MG/ML Vial IV.PUSH PRN (17:20)
[2018-01-18] MEDS: Metoprolol Inj 5 MG/5 ML Vial IV.PUSH PRN (21:53)
[2018-01-19] MEDS: Insulin NovoLIN Regular Correctional Sugar Inj SQ SCH ×4 (01:07→18:39)
[2018-01-19] MEDS: Oral Hygiene Kit OROPHARYNG SCH ×3 (03:00→18:26)
[2018-01-19] MEDS: Heparin - SQ 10,000 UNITS/ML Vial SQ SCH ×3 (05:15→21:22)
[2018-01-19 05:17] LABS: Baso # (Auto) 0.1 th/mm3 (0.0-0.2); Baso % (Auto) 0.8 % (0.0-2.0); Eos # (Auto) 0.2 th/mm3 (0.0-0.4); Eos % (Auto) 1.7 % (0.0-4.0); Hematocrit 33.5 % (35.0-46.0); Hemoglobin 10.9 gm/dL (11.6-15.3); Lymph # (Auto) 2.3 th/mm3 (1.0-4.8); Lymph % (Auto) 19.8 % (9.0-44.0); Mean Corpuscular HGB Conc 32.6 % (32.0-36.0); Mean Corpuscular Volume 95.2 fL (80.0-100.0); Mean Platelet Volume 8.9 fL (7.0-11.0); Mono # (Auto) 1.2 th/mm3 (0.0-0.9); Mono % (Auto) 10.1 % (0.0-8.0); Neut # (Auto) 7.9 th/mm3 (1.8-7.7); Neut % (Auto) 67.6 % (16.0-70.0); Platelet Count 544 th/mm3 (150-450); Red Blood Count 3.52 mil/mm3 (4.00-5.30); Red Cell Distribution Width 14.9 % (11.6-17.2); White Blood Count 11.7 th/mm3 (4.0-11.0)
--- NOTE | 2018-01-19 05:26 | XR ---
EXAM DATE: 01/19/2018 5:06 AM EST AGE/SEX: 62 years / Female INDICATIONS: Short of breath. CLINICAL DATA: This is the patient's subsequent encounter. Patient reports that signs and symptoms h ave been present for 1 month and indicates a pain score of 0/10. MEDICAL/SURGICAL HISTORY: Hypertension. Hypercholesterolemia. Sepsis. . Fusion, lumbar. Chest tube, right. Tracheostomy. Peg tube. COMPARISON: [facility], CHEST 1V SINGLE AP, 01/18/2018. . FINDINGS: Tracheostomy in good position. 2 right-sided chest tubes without significant pneumothorax. Right pleu ral thickening. Scattered airspace disease in the lungs is stable. No significant effusion. CONCLUSION: Stable exam compared with January 18. 2 right chest tubes without pneumothorax. Electronically signed by: Conner Quinonez MD 01/19/2018 5:25 AM EST
[2018-01-19 05:40] LABS: Anion Gap 8 meq/L (5-15); Blood Urea Nitrogen 25 mg/dL (7-18); Calcium 8.4 mg/dL (8.5-10.1); Carbon Dioxide 25.9 meq/L (21.0-32.0); Chloride 110 meq/L (98-107); Glomerular Filtration Rate Greater Than 89 mL/min (>89); Glucose,Random 111 mg/dL (74-106); Magnesium 1.9 mg/dL (1.5-2.5); Phosphorus 3.2 mg/dL (2.5-4.9); Potassium 3.9 meq/L (3.5-5.1); Sodium 144 meq/L (136-145)
[2018-01-19 08:13] LABS: Eosinophils 1 % (0-4); Lymphocytes 21 % (9-44); Metamyelocytes 1 % (0-1); Monocytes 11 % (0-8); Myelocytes 2 % (0-0); Promyelocyte 1 % (0-0); Tallied Nucleated RBC 1 (0-0)
[2018-01-19 08:14] LABS: Platelet Morphology Normal (Normal); Spherocytes Occ
[2018-01-19] MEDS: Potassium Chloride 25 MEQ Effervescent Tablet NG/OG SCH (10:54)
[2018-01-19] MEDS: Famotidine 20 MG Tablet PO SCH ×2 (10:55→21:19)
[2018-01-19] MEDS: Senna/Docusate Sodium 8.6/50 MG Tablet PO SCH ×2 (10:55→21:19)
[2018-01-19] MEDS: Carboxymethylcellulose 0.5% Opth Drops 15 ML Bottle EACH EYE SCH ×2 (10:55→21:20)
[2018-01-19] MEDS: Chlorhexidine 0.12% Oral Kit 15 ML UDC OROPHARYNG SCH ×2 (10:56→21:18)
[2018-01-19] MEDS: Collagenase Oint 30 GM Tube TOPICAL SCH (10:56)
[2018-01-19] MEDS: Morphine Sulfate Inj 2 MG/ML Vial IV.PUSH PRN (11:04)
--- NOTE | 2018-01-19 13:06 | P.PNID ---
Subjective Remarks: remains on vent more responsive today occ fever up to 100.5 US showed thrombosis of the cephalic vein in in the upper arm Antibiotics: ertapenem vanco po Lines: Lines ok Past Medical History: reviewed Allergies/Adverse Reactions: Allergies No Known Allergies Allergy (Verified 12/13/17 08:04) Objective Vital Signs 01/18/18 13:00 01/18/18 14:00 01/18/18 15:00 Temperature Pulse Rate 108 H 83 105 H Respiratory Rate 28 H 29 H 27 H Blood Pressure 177/92 H 169/96 H 172/96 H Pulse Oximetry 100 99 100 01/18/18 15:49 01/18/18 16:00 01/18/18 17:00 Temperature 100.5 F H Pulse Rate 100 H 101 H 107 H Respiratory Rate 27 H 25 H 25 H Blood Pressure 171/83 H 188/87 H Pulse Oximetry 100 100 100 01/18/18 17:12 01/18/18 18:00 01/18/18 19:00 Temperature Pulse Rate 106 H 107 H 106 H Respiratory Rate 24 24 25 H Blood Pressure 160/86 H 149/91 H 164/88 H Pulse Oximetry 100 100 100 01/18/18 20:00 01/18/18 21:00 01/18/18 21:28 Temperature 99.4 F Pulse Rate 105 H 104 H Respiratory Rate 22 23 23 Blood Pressure 165/87 H 159/91 H Pulse Oximetry 100 100 100 01/18/18 21:31 01/18/18 21:55 01/18/18 22:00 Temperature Pulse Rate 105 H 97 H Respiratory Rate 23 23 Blood Pressure 150/92 H Pulse Oximetry 100 100 01/18/18 23:00 01/19/18 00:00 01/19/18 00:03 Temperature 99.1 F Pulse Rate 97 H 101 H Respiratory Rate 23 22 20 Blood Pressure 157/90 H 158/89 H Pulse Oximetry 100 100 100 01/19/18 00:06 01/19/18 01:00 01/19/18 02:00 Temperature Pulse Rate 100 H 103 H 102 H Respiratory Rate 21 23 22 Blood Pressure 157/89 H 146/76 H Pulse Oximetry 100 100 01/19/18 03:00 01/19/18 04:00 01/19/18 04:03 Temperature 99.2 F Pulse Rate 96 H 96 H 101 H Respiratory Rate 21 22 22 Blood Pressure 166/89 H 152/86 H Pulse Oximetry 100 100 100 01/19/18 04:36 01/19/18 06:00 01/19/18 07:42 Temperature Pulse Rate 96 H 101 H 117 H Respiratory Rate 21 22 Blood Pressure Pulse Oximetry 100 01/19/18 07:43 01/19/18 08:00 01/19/18 10:00 Temperature 99.0 F Pulse Rate 110 H 98 H Respiratory Rate 26 H 25 H Blood Pressure 141/78 H Pulse Oximetry 100 99 01/19/18 10:19 01/19/18 11:45 Temperature Pulse Rate 111 H Respiratory Rate 24 24 Blood Pressure Pulse Oximetry 100 Intake & Output 01/18/18 01/19/18 01/19/18 18:59 06:59 18:59 Intake Total 872 / 872 700 / 700 Output Total 1200 / 1200 1750 / 1750 Balance -328 / -328 -1050 / -1050 Weight 65 kg Intake: IV 250 / 250 Precedex Inj 1,000 MCG In NS 250 / 250 Inj 240 ML @ 0.2 MCG/KG/HR 3.48 mls/hr IV.CONT TITRATE PRN Rx# :[id number] Tube Feeding 542 / 542 600 / 600 Water Bolus Amount 80 / 80 100 / 100 Output: Urine 1000 / 1000 Stool 200 / 200 800 / 800 Urine Amount (Catheter) 950 / 950 Straight 950 / 950 Chest Tube Drainage 0 / 0 Right Y Connected 0 / 0 Other: Date of Last Bowel Movement 01/17/18 01/19/18 01/18/18 12/19/17 11:30 Bronchial Washings - Bronchial Fungal Smear - Final Rare budding yeast 12/19/17 11:30 Bronchial Washings - Bronchial Fungal Culture - Final 12/19/17 11:30 Bronchial Washings - Bronchial Acid Fast Bacilli Smear - Final No acid fast bacilli seen 12/19/17 11:30 Bronchial Washings - Bronchial Mycobacterial Culture - Preliminary No growth in 4 weeks 01/14/18 01:00 Sputum - Tracheal Aspirate Gram Stain - Final 01/14/18 01:00 Sputum - Tracheal Aspirate Sputum Culture - Final Klebsiella pneumoniae 01/14/18 00:10 Catheterized Urine Urine Culture - Final Klebsiella pneumoniae ESBL pos Lab - Hematology Results 01/18/18 01/19/18 04:31 04:00 WBC 11.5 H 11.7 H RBC 3.41 L 3.52 L Hgb 10.7 L 10.9 L Hct 32.0 L 33.5 L MCV 93.9 95.2 MCH 31.3 31.0 MCHC 33.3 32.6 RDW 14.5 14.9 Plt Count 565 H 544 H MPV 8.8 8.9 Prelim Diff (Auto) Slide review pending Slide review pending Neut % (Auto) 64.5 67.6 Lymph % (Auto) 21.6 19.8 Giles % (Auto) 11.3 H 10.1 H Eos % (Auto) 1.8 1.7 Baso % (Auto) 0.8 0.8 Neut # (Auto) 7.4 7.9 H Lymph # (Auto) 2.5 2.3 Giles # (Auto) 1.3 H 1.2 H Eos # (Auto) 0.2 0.2 Baso # (Auto) 0.1 0.1 WBC Differential Manual diff final Manual diff final Seg Neuts % (Manual) 63 59 Band Neuts % (Manual) 4 4 Lymphocytes % (Manual) 12 21 Monocytes % (Manual) 11 H 11 H Eosinophils % (Manual) 1 1 Basophils % (Manual) 2 Metamyelocytes % (Man) 1 1 Myelocytes % (Man) 6 H 2 H Promyelocytes % (Man) 1 H Abs Neuts (Manual) 8.5 H 7.8 H Nucleated RBCs/100 WBC 1 H 1 H Differential Comment . . Toxic Granulation 1+ H Platelet Estimate High H High H Platelet Morphology Enlarged H Normal Dimorphic RBCs Present H Spherocytes Occ H Lab - Chemistry Results 01/14/18 01/17/18 01/17/18 21:00 12:59 14:53 Sodium Potassium Chloride Carbon Dioxide Anion Gap BUN Creatinine Estimated GFR POC Glucose 104 Random Glucose Calcium Phosphorus Magnesium Total Bilirubin AST ALT Alkaline Phosphatase Total Creatine Kinase 15 L Troponin I Less than 0.02 L Total Protein Albumin Methylmalonic Acid 0.20 01/17/18 01/17/18 01/17/18 17:44 21:01 23:48 Sodium Potassium Chloride Carbon Dioxide Anion Gap BUN Creatinine Estimated GFR POC Glucose 119 H 138 H Random Glucose Calcium Phosphorus Magnesium Total Bilirubin AST ALT Alkaline Phosphatase Total Creatine Kinase Troponin I Less than 0.02 L Total Protein Albumin Methylmalonic Acid 01/18/18 01/18/18 01/18/18 04:31 06:06 17:14 Sodium 143 Potassium 3.8 Chloride 107 Carbon Dioxide 26.9 Anion Gap 9 BUN 25 H Creatinine 0.46 L Estimated GFR Greater than 89 POC Glucose 117 H 107 Random Glucose 127 H Calcium 8.3 L Phosphorus 3.2 Magnesium 2.1 Total Bilirubin 0.2 AST 39 H ALT 30 Alkaline Phosphatase 122 H Total Creatine Kinase Troponin I Total Protein 6.9 Albumin 2.0 L Methylmalonic Acid 01/19/18 01/19/18 01/19/18 00:03 04:00 05:14 Sodium 144 Potassium 3.9 Chloride 110 H Carbon Dioxide 25.9 Anion Gap 8 BUN 25 H Creatinine 0.40 L Estimated GFR Greater than 89 POC Glucose 120 H 122 H Random Glucose 111 H Calcium 8.4 L Phosphorus 3.2 Magnesium 1.9 Total Bilirubin AST ALT Alkaline Phosphatase Total Creatine Kinase Troponin I Total Protein Albumin Methylmalonic Acid 01/19/18 12:11 Sodium Potassium Chloride Carbon Dioxide Anion Gap BUN Creatinine Estimated GFR POC Glucose 128 H Random Glucose Calcium Phosphorus Magnesium Total Bilirubin AST ALT Alkaline Phosphatase Total Creatine Kinase Troponin I Total Protein Albumin Methylmalonic Acid Imaging: ITS Impressions Head CT 12/17/17 08:02 CONCLUSION: 1. 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 2. Otherwise negative. . Abdomen/Pelvis CT 12/17/17 10:45 CONCLUSION: 1. Moderate diffuse colonic wall thickening exaggerated by lack of colonic distention. This may be due to low-protein state/edema. However, differential considerations include infectious and inflammatory colitis. 2. Moderate-sized right hydropneumothorax with airspace disease in the lung bases as described on chest CT. 3. Additional ancillary findings, as above. Chest CT 01/03/18 11:56 CONCLUSION: 1. Consolidation at both lung bases has improved. Cavitary lesions on the right are slightly larger as measured above. 2. Improving pneumomediastinum, pneumopericardium and subcutaneous emphysema. Near complete resolution of previous right pneumothorax. 2 right chest tubes present. Trace pleural fluid present. 3. Patchy airspace disease remains in the lungs probably with some fibrotic changes well. 4. Endotracheal tube and nasogastric tube in good position. Head MRI 01/15/18 20:01 CONCLUSION: 1. Bilateral mastoiditis. 2. No acute intercranial findings. Venous Doppler Study 01/18/18 00:00 CONCLUSION: 1. Thrombosis of the cephalic vein in in the upper arm. Chest X-Ray 01/19/18 06:00 CONCLUSION: Stable exam compared with January 18. 2 right chest tubes without pneumothorax. Physical Exam: GENERAL: Patient on the ventilator. SKIN: Warm and dry. No rash HEENT: No icterus. NECK: Trachea midline. No JVD. CARDIOVASCULAR: Regular rate and rhythm RESPIRATORY: No accessory muscle use. Decreased breath sounds. CT R in place with serosang dc GASTROINTESTINAL: Abdomen soft, non-tender, distended. MUSCULOSKELETAL: Extremities without clubbing, cyanosis, NEUROLOGICAL: awake, alert, follows, interacts intermittently PSYCHIATRIC: unable to assess Assessment and Plan - Plan Sepsis (fever, leucocytosis) ongoing possible new. Coag neg staph likely pseudobacteremia Strep viridans: ? related to empyema torie Strep. 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
[2018-01-19] MEDS: Metoprolol Inj 5 MG/5 ML Vial IV.PUSH PRN ×2 (14:51→21:23)
--- NOTE | 2018-01-19 17:15 | P.PNCC ---
Subjective Subjective Remarks/Hospital Course: This is a 62yF who was originally admitted on 11/23 with a diagnosis of colitis, found to have enterovirus. discharged on 12/11 at that time on PO vancomycin, but came back on 12/13 with altered mental status and hypoglycemia, again discharged on 12/15. She was mildly fatigued on 12/16 according to her and asked to wait another day before traveling back to her home in [place]. This morning, she was unarousable and her called 911. She was intubated upon arrival to the emergency department for agonal respirations. CXR demonstrates bilateral multifocal pneumonia. She is febrile, hypotensive. CVL placed in the ER and vasopressors initiated after 2L bolus crystalloid. CT chest/abd/pelvis demonstrates right pneumothorax, densely consolidated right lower lobe, bilateral pulmonary infiltrates, evidence of ongoing colitis. Patient continue to be unstable. Immediately after identifying ptx on CT scan, I emergently placed right chest tube with some improvements in hemodynamics, but ongoing distributive shock persists. I placed arterial line. No additional information available from the patient, ROS unobtainable. In discussion with the , she has not had any new complaints in the 48h she was home, and other than mild fatigue last night, no new complaints. She was able to walk to the bathroom without assistance yesterday. 12/18: shock remains. now on levophed, vasopressin, phenylephrine. second chest tube placed overnight for worsening SQ air. acidosis remains and is severe. 12/19: Afebrile. Remains on vasopressin drip only. On stress dose hydrocortisone. Evaluated by CT surgery. Not a candidate for intervention at the present time. Chest tube continues to leak. Epoprostenol added today 12/20: Afebrile. FiO2 has decreased and is currently 70%. Currently replacing potassium, phosphorus and magnesium. Recheck later this afternoon. Less chest tube leak today down to 1 chamber. 12/21: Overnight, worsening subcutaneous emphysema. A third chest tube placed by overnight dry dip worker after discussion with cardiothoracic surgery. Currently hemodynamically stable. Replacing phosphorus today. To be evaluated by CT surgery today. 12/22: Remains sedated, orally intubated on mechanical ventilation. Persistent air leak and chest tube noted. 12/23: Remains sedated, orally intubated on mechanical ventilation. Air leak persists though slightly improved. PEEP at +5 FiO2 55%, inhaled Flolan continues. Central line replaced with right IJ triple-lumen catheter. 12/24: Remains sedated, orally intubated on mechanical ventilation. 1+ air leak from chest tube 3 noted. PEEP +5, FiO2 60%, inhaled Flolan continues. Decreasing subcutaneous emphysema noted. 12/25: Remains sedated, orally improved on mechanical ventilation. 1+ for leak from chest tube 2. PEEP +5, FiO2 50%. Starting to titrate inhaled Flolan down today. Initiating Lasix to mobilize fluid. 12/26: remains intubated. air leak continues from chest tube #3. drainage out of #1 and #2 are very serous. #1 was removed by myself today. all chest tube dressings changed by me today. repeat CXR pending. very volume overloaded. starting to diurese. off vasopressors. off pathway: still high fio2 requirements. 12/27: good diuresis overnight. very hypokalemic today and aggressively replacing. CXR unchanged. air leak unchanged. long discussion over long-term and short-term prognosis and plan of care with entire family today. all questions answered. 12/28: Continues to diurese. Remains on mechanical ventilation. Positive air leak in chest tube 3. 1 unit PRBCs transfused earlier for hemoglobin 6.9. 12/29: Remains on mechanical ventilation. Increasing subcutaneous emphysema noted. Air leak stopped and chest tube #2 and 3 currently. Flolan being titrated down. Chest x-ray shows appropriate positioning of 2 chest tubes with the more medial small right pneumothorax with significant subcutaneous emphysema bilaterally. Patient remains off pressors and is being diuresed to mobilize fluid. 12/30: volume removal continues. Cr still at baseline. fio2 down to 40% and off inhaled Flolan. discussed with Dr. Lynn: will need to wait at least until next week for VATS. Will need trach going forward: discussed with family and they are agreeable. Dr. Lynn asked that both chest tubes remain in place. air leak persists. remains intubated and sedated. 12/31: Sedated, orally intubated on mechanical ventilation. On 40% FiO2 PEEP + 5. Positive air leak in chest tube [address] surgery planning for VATS next week, will need tracheostomy coordinated as well. 01/01: Remains sedated, orally intubated on mechanical ventilation. PEEP +5, FiO2 35%. Being diuresed. 01/02: Sedated, orally intubated on mechanical ventilation. PEEP +5, FiO2 35%. Intermittent air leak in chest tube 3. Being diuresed 01/03: persistent air leak. hypoxia improving. discussed case with Dr. Lynn- he would like pre-operative CT chest for surgical planning. we also discussed timing of tracheostomy: it would be easier surgically to have ett in place to place double-lumen ett, so he would prefer to keep ett until after operation, and then proceed with tracheostomy. tentatively VATS planned for Friday 01/05. 01/04: No events over the night. Patient remains sedated and intubated, sedation achieved with fentanyl and propofol. T-max of 100.2 over the last 24 hours. I/O 3770/3130. Chest tubes remain on suction. 01/05: T-max 99.3. Currently afebrile. Difficulty with weaning from ventilator noted. VATS currently on hold per CT surgery. 01/06: Resting comfortably in bed in no acute distress. Plan for thoracotomy rested on Thursday night. Currently on CPAP trial. Potassium being replaced. 01/07: Resting complaint bed in no acute distress. Plan for thoracotomy tomorrow a.m. 730. Currently on CPAP trial. Transfuse when he PRBC today. Hemoglobin currently 9.6 potassium 3.9. 01/08: Today, status post right thoracoscopic decortication, closure of bronchopleural fistula with debridement and irrigation of the prior chest tube wounds with placement of 2 #32 [place] chest tubes by cardiothoracic surgery patellar procedure well. EBL 250. Adequate urine output. Appears stable. 01/09: T-max 100.2. Currently tachycardic. Receiving 2 units PRBCs. Potassium being replaced. Agitated on the ventilator. 01/10: Twitching on the ventilator/tremor. Temperature max 100.2. 120 cc output from chest tube overnight. Still not arousable/following commands on the ventilator. Likely tracheostomy 01/11: T-max 100.5. Status post #8 [facility] practice tracheostomy today. Order PEG tube for tomorrow. Arousable but not following commands. Thrashes back and forth. 01/12: T-max 100.4. Plan to initiate CPAP trials today. Patient does not follow commands, but does track movement. IV antibiotics discontinued yesterday Zosyn and micafungin. The patient continues on p.o. Vanco. Case discussed with CT surgery plan for continuation chest tubes until placed on trach collar. 01/13: No acute events overnight. Patient underwent PEG placement this afternoon. Remains n.p.o. 6 hours post PEG. During sedation vacation the patient becomes extremely agitated and tachycardic. Right chest tube continues on 20 cm of water suction. 01/14: Sedation vacation underway. Patient noted to have spontaneous eye opening and spontaneous movement of lower extremities but not responding to any commands and no visual tracking. EEG has been ordered. Neurology has been consulted. Noted ammonia level less than 10 this a.m. propofol and fentanyl sedation has been discontinued since yesterday. The patient will remain on Precedex to maintain ventilator synchrony but currently undergoing sedation vacation for accurate neurological assessment. The patient has been initiated on CPAP trials. 01/15: No acute changes in neurological status. Noted spontaneous eye opening today MRI performed which showed no acute intracranial abnormality. Urine culture resulted UTI gram-negative rods, Rocephin 7-day medication regimen added. The patient tolerated CPAP trials for approximately 9.5 hours yesterday. The patient continues on CPAP trials today. 01/16: The patient is noted to be awake and alert smiling nodding head to yes and no questions today. Follow commands for [employer]UD[employer]ODUCTION [employer] and by squeezing hands no movement of lower extremities noted . PEG tube site without erythema, tolerating tube feeds. Urine culture results Klebsiella ESBL, Patient Continues with a Purewick urinary drainage device. No change in chest x-ray, right chest tubes continue on suction. 01/17: T-max 99.7. Started on imipenem/cilastatin secondary to yesterday a positive Klebsiella pneumonia UTI/sputum positive. Follows commands and wings high. Muscles weak throughout. 01/18: T-max 99.7. Currently on dexmedetomidine drip at 0.6 mcg/kg/h. One large bowel movement overnight. Continues on CPAP trial. Subjective 01/19: Febrile overnight. Remains on dexmedetomidine drip at 0.3 mg/kg/h. Continues on CPAP trial. We will add clonidine to 0.1 mg 3 times daily for hypertension. Objective Vital Signs / I&O: Vital Signs 01/18/18 18:00 01/18/18 19:00 01/18/18 20:00 Temperature 99.4 F Pulse Rate 107 H 106 H 105 H Respiratory Rate 24 25 H 22 Blood Pressure 149/91 H 164/88 H 165/87 H Pulse Oximetry 100 100 100 01/18/18 21:00 01/18/18 21:28 01/18/18 21:31 Temperature Pulse Rate 104 H 105 H Respiratory Rate 23 23 23 Blood Pressure 159/91 H Pulse Oximetry 100 100 01/18/18 21:55 01/18/18 22:00 01/18/18 23:00 Temperature Pulse Rate 97 H 97 H Respiratory Rate 23 23 Blood Pressure 150/92 H 157/90 H Pulse Oximetry 100 100 100 01/19/18 00:00 01/19/18 00:03 01/19/18 00:06 Temperature 99.1 F Pulse Rate 101 H 100 H Respiratory Rate 22 20 21 Blood Pressure 158/89 H Pulse Oximetry 100 100 01/19/18 01:00 01/19/18 02:00 01/19/18 03:00 Temperature Pulse Rate 103 H 102 H 96 H Respiratory Rate 23 22 21 Blood Pressure 157/89 H 146/76 H 166/89 H Pulse Oximetry 100 100 100 01/19/18 04:00 01/19/18 04:03 01/19/18 04:36 Temperature 99.2 F Pulse Rate 96 H 101 H 96 H Respiratory Rate 22 22 21 Blood Pressure 152/86 H Pulse Oximetry 100 100 100 01/19/18 06:00 01/19/18 07:42 01/19/18 07:43 Temperature Pulse Rate 101 H 117 H Respiratory Rate 22 26 H Blood Pressure Pulse Oximetry 100 01/19/18 08:00 01/19/18 10:00 01/19/18 10:19 Temperature 99.0 F Pulse Rate 110 H 98 H Respiratory Rate 25 H 24 Blood Pressure 141/78 H Pulse Oximetry 99 100 01/19/18 11:45 01/19/18 12:00 01/19/18 14:00 Temperature 100.3 F H Pulse Rate 111 H 126 H 125 H Respiratory Rate 24 26 H Blood Pressure 140/82 Pulse Oximetry 99 01/19/18 14:26 01/19/18 15:23 01/19/18 16:00 Temperature 99.6 F Pulse Rate 106 H 124 H Respiratory Rate 26 H 25 H 24 Blood Pressure 162/94 H Pulse Oximetry 97 99 01/19/18 16:24 Temperature Pulse Rate Respiratory Rate Blood Pressure Pulse Oximetry 98 Intake & Output 01/18/18 01/19/18 01/19/18 18:59 06:59 18:59 Intake Total 872 / 872 700 / 700 Output Total 1200 / 1200 1750 / 1750 Balance -328 / -328 -1050 / -1050 Weight 65 kg Intake: IV 250 / 250 Precedex Inj 1,000 MCG In NS 250 / 250 Inj 240 ML @ 0.2 MCG/KG/HR 3.48 mls/hr IV.CONT TITRATE PRN Rx# :[id number] Tube Feeding 542 / 542 600 / 600 Water Bolus Amount 80 / 80 100 / 100 Output: Urine 1000 / 1000 Stool 200 / 200 800 / 800 Urine Amount (Catheter) 950 / 950 Straight 950 / 950 Chest Tube Drainage 0 / 0 Right Y Connected 0 / 0 Other: Date of Last Bowel Movement 01/17/18 01/19/18 01/18/18 Result Diagrams: 01/19/18 04:00 01/19/18 04:00 Other Results: Microbiology 12/19/17 11:30 Bronchial Washings - Bronchial Fungal Smear - Final Rare budding yeast 12/19/17 11:30 Bronchial Washings - Bronchial Fungal Culture - Final 12/19/17 11:30 Bronchial Washings - Bronchial Acid Fast Bacilli Smear - Final No acid fast bacilli seen 12/19/17 11:30 Bronchial Washings - Bronchial Mycobacterial Culture - Preliminary No growth in 4 weeks 01/14/18 01:00 Sputum - Tracheal Aspirate Gram Stain - Final 01/14/18 01:00 Sputum - Tracheal Aspirate Sputum Culture - Final Klebsiella pneumoniae 01/14/18 00:10 Catheterized Urine Urine Culture - Final Klebsiella pneumoniae ESBL pos 01/08/18 09:30 Tissue - Other Acid Fast Bacilli Smear - Final No acid fast bacilli seen 01/08/18 09:30 Tissue - Other Mycobacterial Culture - Preliminary No growth in 1 week 01/08/18 09:30 Tissue - Other Fungal Smear - Final No fungal elements seen 01/08/18 09:30 Tissue - Other Fungal Culture - Preliminary No growth in 1 week 01/10/18 01:30 Catheterized Urine Urine Culture - Final No growth in 48 hours 01/08/18 09:30 Tissue - Other Gram Stain - Final 01/08/18 09:30 Tissue - Other Wound Culture - Final No growth in 72 hours (aerobically and anaerobically ) 12/17/17 15:55 Other - Final 01/01/18 22:07 Blood - Peripheral Aerobic Blood Culture - Final No growth in 5 days 01/01/18 22:07 Blood - Peripheral Anaerobic Blood Culture - Final No growth in 5 days 01/01/18 19:45 Blood - Peripheral Aerobic Blood Culture - Final No growth in 5 days 01/01/18 19:45 Blood - Peripheral Anaerobic Blood Culture - Final No growth in 5 days 01/02/18 17:28 Sputum - Endotracheal Gram Stain - Final 01/02/18 17:28 Sputum - Endotracheal Sputum Culture - Final Klebsiella pneumoniae 12/17/17 15:55 Fluid - Pleural fluid Gram Stain - Final 12/17/17 15:55 Fluid - Pleural fluid Body Fluid Culture - Final Lactobacillus rhamnosus Karla glabrata Klebsiella pneumoniae 12/19/17 00:56 Fluid - Pleural fluid Gram Stain - Final 12/19/17 00:56 Fluid - Pleural fluid Body Fluid Culture - Final Karla glabrata Lactobacillus rhamnosus 12/19/17 00:30 Fluid - Pleural fluid Gram Stain - Final 12/19/17 00:30 Fluid - Pleural fluid Body Fluid Culture - Final Klebsiella pneumoniae Karla albicans Karla glabrata Lactobacillus rhamnosus 12/17/17 15:55 Other - Final 12/17/17 08:24 Blood - Peripheral Aerobic Blood Culture - Final No growth in 5 days 12/17/17 08:24 Blood - Peripheral Anaerobic Blood Culture - Final No growth in 5 days 12/17/17 08:10 Blood - Peripheral Aerobic Blood Culture - Final No growth in 5 days 12/17/17 08:10 Blood - Peripheral Anaerobic Blood Culture - Final Staphylococcus coag negative Viridans streptococcus grp 12/19/17 11:30 Bronchial - Bronchial Gram Stain - Final 12/19/17 11:30 Bronchial - Bronchial Bronchial Culture - Final Klebsiella pneumoniae 12/17/17 15:54 Sputum - Endotracheal Gram Stain - Final 12/17/17 15:54 Sputum - Endotracheal Sputum Culture - Final Klebsiella pneumoniae 12/17/17 15:55 Stool Stool for WBCs - Final Few WBC's 12/17/17 13:54 Urine - Catheterized Urine Streptococcus pneumoniae Antigen ( M - Final Presumptive negative for streptococcus pneumoniae antigen, suggesting no current or recent infection. Infection due to Streptococcus pneumoniae cannot be ruled out since the antigen present in the sample may be below the detection limit of the test. 12/17/17 13:54 Urine - Catheterized Urine Legionella Antigen - Final Presumptive negative for Legionella pneumophila serogroup 1 antigen in urine, suggesting no recent or recurrent infection. Infection due to Legionella cannot be ruled out since other serogroups and species may cause disease, antigen may not be present in urine in early infection, and the level of antigen present in the urine may be below the detection limit of the test. 12/17/17 15:55 Nasal Aspirate Influenza Types A,B Antigen - Final Negative for FLU A and B antigen Infection due to influenza A or B cannot be ruled out since the antigen present in the sample may be below the detection limit of the test. Imaging: Chest X-Ray 12/17/17 00:00 CONCLUSION: 1. Persistent bilateral airspace infiltrates. 2. Interval placement of a right-sided thoracostomy tube. There does appear to be an apical lateral 1.5 cm right pneumothorax. 3. Extensive subcutaneous and deep tissue emphysematous changes about the right hemithorax. Chest X-Ray 12/17/17 00:00 CONCLUSION: Right-sided chest tube with slight increase in right pneumothorax compared with earlier exam. Slight increase in left basilar airspace disease since earlier exam. Slight worsening of subcutaneous air with extension into the left hemithorax and neck. Chest X-Ray 12/17/17 08:02 CONCLUSION: Satisfactory support line and tube positioning. Bilateral infiltrates. Head CT 12/17/17 08:02 CONCLUSION: 1. 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 2. Otherwise negative. . Abdomen/Pelvis CT 12/17/17 10:45 CONCLUSION: 1. Moderate diffuse colonic wall thickening exaggerated by lack of colonic distention. This may be due to low-protein state/edema. However, differential considerations include infectious and inflammatory colitis. 2. Moderate-sized right hydropneumothorax with airspace disease in the lung bases as described on chest CT. 3. Additional ancillary findings, as above. Chest CT 12/17/17 10:45 CONCLUSION: 1. Small to moderate-sized right-sided hydropneumothorax. 2. Right lower lobe consolidation with air bronchograms. Differential considerations include aspiration and lobar pneumonia. 3. Patchy diffuse groundglass opacities most prominently in the upper lobes bilaterally. Differential considerations include bronchopneumonia, atypical infection and atypical pulmonary edema. 4. Mild mediastinal adenopathy, likely reactive. Chest X-Ray 12/17/17 22:00 CONCLUSION: Placement of second right-sided chest tube with near complete resolution of previous right pneumothorax. Chest X-Ray 12/18/17 05:00 CONCLUSION: 1. Stable bilateral multifocal consolidative infiltrates. 2. 2 right chest drainage tubes in place; no pneumothorax seen. Chest X-Ray 12/19/17 00:00 CONCLUSION: 1. 2 right chest tubes remain present and there is now a small pneumothorax. There is also increased right chest wall soft tissue air. 2. Stable severe bilateral airspace consolidation. Chest X-Ray 12/19/17 05:00 CONCLUSION: Findings suggest reaccumulation of right pneumothorax with both right-sided chest tubes unchanged in position. Chest X-Ray 12/19/17 10:08 CONCLUSION: 1. 2 right chest tubes are present and no pneumothorax is identified. 2. Stable bilateral airspace consolidation primarily in the lower lung zones. Chest X-Ray 12/20/17 06:00 CONCLUSION: 1. Decrease in size of right apical pneumothorax to 4 mm. 2. Diffuse bilateral airspace consolidation similar in severity and distribution to prior. Chest X-Ray 12/21/17 02:48 CONCLUSION: 1. Large amount of chest wall and neck soft tissue emphysema present, much worse than yesterday. No definite pneumothorax. Right chest tubes remain in place. 2. Worsening bilateral airspace disease, left more so than right. Chest CT 12/21/17 04:03 CONCLUSION: 1. Moderate size right pneumothorax without tension. Also pneumopericardium and pneumomediastinum. Massive chest wall emphysema. 2. Bilateral airspace disease. 3.7 cm bilobed cavitary lesion of the right lower lobe. 3. Small left pleural effusion. No left pneumothorax. Chest X-Ray 12/21/17 07:31 CONCLUSION: Progression of the extensive subcutaneous emphysema with [address] on the right. Chest X-Ray 12/22/17 06:00 CONCLUSION: 1. Decreased chest wall emphysema. No pneumothorax seen. 2. Diffuse bilateral airspace disease without significant change. Chest X-Ray 12/23/17 13:34 CONCLUSION: 1. Interval placement of right internal jugular central venous line with no pneumothorax. 2. 3 right-sided chest tubes remain in place. 3. Interval improvement in subcutaneous emphysema. 4. The right costophrenic angle with consolidative opacity in the right lung base. Chest X-Ray 12/26/17 00:00 CONCLUSION: 1. Lines and tubes remain in place. 2. No significant interval change with persistent mild diffuse bilateral pulmonary opacity. Chest X-Ray 12/26/17 05:00 CONCLUSION: Decreasing subcutaneous emphysema. Otherwise no change. Chest X-Ray 12/27/17 05:00 CONCLUSION: Stable chest appearance Chest X-Ray 12/29/17 07:29 CONCLUSION: 1. Significant interval increase in bilateral subcutaneous emphysema with small apparent medial right pneumothorax now noted. 2. The patient remains intubated and there are 2 right-sided chest tubes in place. Chest X-Ray 12/30/17 07:39 CONCLUSION: 1. No significant change. 2. No evidence of pneumothorax. 3. Stable supportive devices. 4. Extensive airspace disease remains evident throughout both lungs without significant improvement. Chest X-Ray 12/31/17 05:00 CONCLUSION: Little change from prior exam Chest CT 01/03/18 11:56 CONCLUSION: 1. Consolidation at both lung bases has improved. Cavitary lesions on the right are slightly larger as measured above. 2. Improving pneumomediastinum, pneumopericardium and subcutaneous emphysema. Near complete resolution of previous right pneumothorax. 2 right chest tubes present. Trace pleural fluid present. 3. Patchy airspace disease remains in the lungs probably with some fibrotic changes well. 4. Endotracheal tube and nasogastric tube in good position. Chest X-Ray 01/04/18 05:00 CONCLUSION: 1. Decreased lung volumes. Persistent bilateral pulmonary opacity. 2. Right-sided chest tubes. Bilateral subcutaneous emphysema. No evidence of pneumothorax. Chest X-Ray 01/07/18 06:00 CONCLUSION: 1. Interval decrease in subcutaneous emphysema. 2 right-sided chest tubes remaining in place and no visualized pneumothorax. 2. Interval improvement in bilateral pulmonary opacity is well. 3. Masslike opacity in the right perihilar region. Chest X-Ray 01/08/18 06:00 CONCLUSION: No significant change. No perceptible pneumothorax. Chest X-Ray 01/08/18 10:25 CONCLUSION: 1. New right IJ central catheter in satisfactory position. 2. ET tube and chest tubes in satisfactory position. 3. Extensive bilateral pulmonary infiltrates. Chest X-Ray 01/09/18 06:00 CONCLUSION: Tubes and catheters in good position. Patchy infiltrates right greater than left with right apical pleural thickening are unchanged Chest X-Ray 01/10/18 06:00 CONCLUSION: Tubes and catheters in good position. Patchy infiltrate right midlung zone left lung base are unchanged. Chest X-Ray 01/11/18 06:00 CONCLUSION: No significant interval change. Bilateral pulmonary opacity again seen. Chest X-Ray 01/11/18 15:27 CONCLUSION: 1. Interval placement of tracheostomy tube. The endotracheal tube and nasogastric tube have been removed. 2. 2 right-sided chest tube in place with right apical pleural parenchymal change. 3. Hazy opacity remains in both lungs without change right greater than left. Chest X-Ray 01/12/18 06:00 CONCLUSION: 1. Right IJ central venous catheter no longer seen. 2. No significant interval change in patchy bilateral lung opacity. 3. Right-sided chest tubes remain in place. No evidence of pneumothorax. Chest X-Ray 01/14/18 00:00 CONCLUSION: 1. Nasogastric tube no longer seen. 2. No significant interval change in mild bilateral pulmonary opacity. Head MRI 01/15/18 20:01 CONCLUSION: 1. Bilateral mastoiditis. 2. No acute intercranial findings. Chest X-Ray 01/16/18 00:00 CONCLUSION: Stable exam with 2 right-sided chest tubes. No pneumothorax. No new infiltrate. Venous Doppler Study 01/18/18 00:00 CONCLUSION: 1. Thrombosis of the cephalic vein in in the upper arm. Chest X-Ray 01/18/18 06:00 CONCLUSION: 2 right-sided chest tubes. No pneumothorax. Scattered subsegmental opacity in the lungs. Chest X-Ray 01/19/18 06:00 CONCLUSION: Stable exam compared with January 18. 2 right chest tubes without pneumothorax. Objective Remarks: GENERAL: 62-year-old female, on ventilator via tracheostomy and, chronically ill-appearing , smiling, nodding head to yes and no questions HEENT: Pupils are equal and reactive, sclerae are anicteric, status post tracheostomy on 01/11 NECK: Supple, no rigidity, no neck vein distention, no carotid bruit, tracheostomy site without bleeding. CHEST: Coarse breath sounds bilateral, no wheezes, currently no subcu emphysema. 1 dual right-sided chest tubes on suction, CARDIOVASCULAR: Regular regular rate and rhythm, no murmurs appreciated ABDOMEN: Soft, nontender, nondistended, bowel sounds present, no hepatomegaly or splenomegaly appreciated MUSCULOSKELETAL: Extremities are warm and well perfused, peripheral pulses are present, 1+ pitting edema NEUROLOGICAL: Continues on low-dose dexamethasone.tracheostomy site without erythema or drainage. spontaneous eye opening nodding head to yes and no questions., visual tracking noted today. Pupils are equal and reactive, no gaze deviation. No movement of lower extremities upon command. SKIN: Sacral deep tissue injury improving Assessment and Plan - Assessment and Plan Plan: Neuro/Psych: Acute metabolic encephalopathy Possible seizure disorder Critical illness polyneuropathy ? Dexmedetomidine infusion for maintenance of ventilator synchrony and currently 0.6 m/kg/h Daily sedation vacation. Goal RASS -0 She was started on anticonvulsants on her initial admission 11/23. Valproic acid 500 mg 3 times daily. Recheck valproic acid level subtherapeutic Head CT 12/17- for acute disease EEG - Diffuse slowing consistent with a moderate diffuse encephalopathy. No epileptiform activity. Repeat 01/10 Acetaminophen 650 by tube every 6 hours as needed fever 01/13 Held quetiapine 25 mg daily/home medication Holding tizanidine 4 mg daily 01/14 repeat EEG negative for seizure activity., neurology has been consulted. Negative workup and okayed for debilitation Trend ammonia level 01/15 MRI brain-no acute intracranial abnormality Patient awake smiling nodding to yes and no questions however unable to move extremities-per neurology possible critical illness neuropathy Respiratory: Right thoracoscopic decortication, closure of bronchopleural fistula, debridement and irrigation of the prior chest tube wounds and placement of #2 32 [place] chest tubes 01/13 Acute hypoxic and hypercarbic respiratory failure- persistent Acute severe bilateral multifocal healthcare associated pneumonia Possible aspiration pneumonia Spontaneous right-sided tension pneumothorax Subcutaneous Emphysema CT surgery/Dr. Marquez following. CT thorax overnight 12/12 revealed significant 3.7 cm moderate right pneumothorax without tension. Pneumopericardium and significant subcutaneous emphysema. Vent bundle and bronchodilators PRVC mode 450/14/35% PEEP of 5 Epoprostanol added 12/19, removed 12/29. Albuterol/ipratropium aerosols every 4 hours with albuterol aerosols every 2 hours as needed dyspnea Duo nebs scheduled every 6 hours Wean FiO2 for goal SPO2 greater than 90% Daily CXR 01/14-CPAP trials initiated, patient averaging 9.5 hours Plan is to maintain chest tubes until off ventilator per cardiovascular surgery Cardiovascular: Septic shock- resolved Elevated troponin Type II NSTEMI secondary to demand ischemia Hyperlipidemia Essential hypertension Holding lisinopril 30 mg daily/home medication. For dyslipidemia resume pravastatin 40 mg daily when clinically indicated Clonidine 0.1 mg 3 times daily with as needed Lopressor, labetalol Renal: Acute kidney injury (resolved) Secondary to shock, off pressors Frequent urine output monitoring Accurate I's and O's FEN/GI: Acute protein calorie malnutritionsevere Lactic acidosis- resolved Severe colitis Enterovirus colitis Hyperammonemia-resolved Elevated AST 01/14 Hold lactulose 30 cc twice daily Tube feeding with vital 1.5 goal 55 cc now. Metoclopramide 5 mg 3 times daily ICU electrolyte protocol Daily BMP, magnesium, phosphorus Lactulose/polythene glycol twice daily Holding dicyclomine 20 mg 3 times daily 01/13 status post PEG tube placement Vital high tube feeds 60cc/hr Heme/ID: C. difficile colitis Enterovirus colitis Septic shock Healthcare associated multifocal pneumonia Possible gram-positive cocci bacteremia Early empyema Urosepsis-Klebsiella ESBL positive 01/14 Leukocytosis Normocytic anemia Thrombocytopenia 1 unit PRBCs transfused on 12/28 for hemoglobin 6.9, recheck CBC and transfuse to keep hemoglobin above 8 g% Transfuse 1 unit PRBCs 01/07.. Transfuse 2 units PRBCs 01/09 Vancomycin p.o. with pharmacy dosing C. difficile continue [id number] piperacillin/tazobactam and micafungin Currently on ertapenem times 10 days as resistant to meropenem per infectious disease Bronchoscopy 12/19 with Klebsiella Pleural fluid 12/19 with Klebsiella's/Karla Pleural fluid 12/17 -g Karla albicans/glabrata Klebsiella, lactobacillus 12/17 -sputum -Klebsiella 12/17 blood-strep viridians/coag negative staph Infectious disease consulted and following. IV antibiotics micafungin and Zosyn discontinued 01/11. P.O. vancomycin continued 01/15 sputum/urine cultureKlebsiella sputum positive, patient continues with purewick urinary drainage system Endocrine: Acute hypoglycemia- resolving. Sliding scale insulin Accu-Cheks every 6 hours to maintain euglycemia Prophylaxis: GI Prophylaxis Famotidine DVT Prophylaxis -- SCDs Subcu heparin Lines: 12/17 femoral triple-lumen catheter discontinued 12/23 12/17 right radial arterial line discontinued 12/21 12/17 right 28 [place] chest tube to -40 cm suction: removed 12/26 12/17 right 32 [place] chest tube to -40 cm suction removed 01/08 12/19 -right #32 [place] chest tube to -40 cm suction removed 01/08 Right IJ cordis with dual-lumen 01/08 removed 01/11. Continue with dual chest tube on right side placed 01/08 Level 2 follow-up
--- NOTE | 2018-01-19 17:34 | P.PNPAL ---
Reason for Visit Reason for visit: a. To assist with evaluation and management of symptoms including: pain. b. To assist medical decision maker(s) with: better understanding of current medical conditions; weighing benefits/burdens of medical treatment options; making medical treatment decisions. Subjective Subjective/Interval History: Follow-up medically necessary for symptom management and family support. Patient seen and examined in the room. She remains in MICU, trached and on mechanical ventilation. Patient is currently on CPAP trial and per bedside RN, she has been tolerating CPAP trial. Currently his heart rate is in the 120s and respirations 27. Patient only has a dual chest tube to right lateral chest wall. Precedex infusion has been on hold since morning. Patient is not following commands, noticeable intermittent facial twitching to left side. Bedside RN reporting that patient has been responding by smiling appropriately when talked to. She appears to be tracking. Patient has been having low-grade temperature today with a T-max of 100.3 F. Tube feeds infusing at 55ml/hr. Interim course: * 01/13/18-patient had PEG tube placed * 01/13/18-patient weaned off propofol and fentanyl infusions * 01/14/18-sputum culture positive for Klebsiella pneumoniae and urine culture positive for Klebsiella pneumonia ESBL * 01/14/18-neurology Dr. Crews consulted, recommended checking B1 CPK, ABG and thinks patient might have ICU neuromyopathy * 01/15/18-MRI brain revealed no acute intracranial abnormality * 01/15/18-EEG negative * 01/18/18-left arm edematous; ultra venous Doppler showed thrombosis of the cephalic vein in the upper arm. * 01/19/18-chest x-ray showing tracheostomy in good position. Right pleural thickening and stable scattered airspace disease in the lungs. No pneumothorax. Infectious disease, neurology, cardiothoracic and case management following. Telephone call placed to patient spouse Luis Woodruff-to provide an update. No response. Left a voice message with palliative care contact information. Case discussed with bedside RN. Family/Friend Interactions: Telephone call to patient's Luis Woodruff ([phone])-no response- left voice message with palliative care contact information. . Advance Directives Living Will: Never completed Health Care Surrogate: Never completed Durable Power of Gas Station Clerk: Never completed Health Care Surrogate Name and Number: HCP Luis Woodruff Objective Vital Signs: Vital Signs 01/18/18 17:00 01/18/18 17:12 01/18/18 18:00 Temperature Pulse Rate 107 H 106 H 107 H Respiratory Rate 25 H 24 24 Blood Pressure 188/87 H 160/86 H 149/91 H Pulse Oximetry 100 100 100 01/18/18 19:00 01/18/18 20:00 01/18/18 21:00 Temperature 99.4 F Pulse Rate 106 H 105 H 104 H Respiratory Rate 25 H 22 23 Blood Pressure 164/88 H 165/87 H 159/91 H Pulse Oximetry 100 100 100 01/18/18 21:28 01/18/18 21:31 01/18/18 21:55 Temperature Pulse Rate 105 H Respiratory Rate 23 23 Blood Pressure Pulse Oximetry 100 100 01/18/18 22:00 01/18/18 23:00 01/19/18 00:00 Temperature 99.1 F Pulse Rate 97 H 97 H 101 H Respiratory Rate 23 23 22 Blood Pressure 150/92 H 157/90 H 158/89 H Pulse Oximetry 100 100 100 01/19/18 00:03 01/19/18 00:06 01/19/18 01:00 Temperature Pulse Rate 100 H 103 H Respiratory Rate 20 21 23 Blood Pressure 157/89 H Pulse Oximetry 100 100 01/19/18 02:00 01/19/18 03:00 01/19/18 04:00 Temperature Pulse Rate 102 H 96 H 96 H Respiratory Rate 22 21 22 Blood Pressure 146/76 H 166/89 H Pulse Oximetry 100 100 100 01/19/18 04:03 01/19/18 04:36 01/19/18 06:00 Temperature 99.2 F Pulse Rate 101 H 96 H 101 H Respiratory Rate 22 21 Blood Pressure 152/86 H Pulse Oximetry 100 100 01/19/18 07:42 01/19/18 07:43 01/19/18 08:00 Temperature 99.0 F Pulse Rate 117 H 110 H Respiratory Rate 22 26 H 25 H Blood Pressure 141/78 H Pulse Oximetry 100 99 01/19/18 10:00 01/19/18 10:19 01/19/18 11:45 Temperature Pulse Rate 98 H 111 H Respiratory Rate 24 24 Blood Pressure Pulse Oximetry 100 01/19/18 12:00 01/19/18 14:00 01/19/18 14:26 Temperature 100.3 F H Pulse Rate 126 H 125 H Respiratory Rate 26 H 26 H Blood Pressure 140/82 Pulse Oximetry 99 97 01/19/18 15:23 01/19/18 16:24 Temperature Pulse Rate 106 H Respiratory Rate 25 H Blood Pressure Pulse Oximetry 98 Intake & Output 01/18/18 01/19/18 01/19/18 18:59 06:59 18:59 Intake Total 872 / 872 700 / 700 Output Total 1200 / 1200 1750 / 1750 Balance -328 / -328 -1050 / -1050 Weight 65 kg Intake: IV 250 / 250 Precedex Inj 1,000 MCG In NS 250 / 250 Inj 240 ML @ 0.2 MCG/KG/HR 3.48 mls/hr IV.CONT TITRATE PRN Rx# :[id number] Tube Feeding 542 / 542 600 / 600 Water Bolus Amount 80 / 80 100 / 100 Output: Urine 1000 / 1000 Stool 200 / 200 800 / 800 Urine Amount (Catheter) 950 / 950 Straight 950 / 950 Chest Tube Drainage 0 / 0 Right Y Connected 0 / 0 Other: Date of Last Bowel Movement 01/17/18 01/19/18 01/18/18 Physical Exam: CONSTITUTIONAL/GENERAL: Obese female on mechanical ventilation via trach resting in bed in no apparent distress. TUBES/LINES/DRAINS: Tracheostomy, PIV's to bilat arms, bilateral soft wrist restraints, SCD's. Read catheter, rectal tube/bad with moderate amount of stool. Chest tube to right lung. NG tube. SKIN: No jaundice, rashes, or lesions. Ecchymoses on upper extremities. Blisters to left upper extremity. Skin temperature appropriate. Not diaphoretic. HEAD: Atraumatic. Normocephalic. EYES: Pupils equal and round and reactive. No scleral icterus. No injection or drainage. ENT: Unable to evaluate hearing, sedated. No nasal drainage noted. Moist oral mucosa. NECK: Trachea midline. Tracheostomy in place. CARDIOVASCULAR: Tachycardic with heart rate in the 120s. S1, S2 normal. peripheral pulses symmetric. RESPIRATORY/CHEST: Symmetric. Tachypneic RR 27. Rhonchi in all ornelas. dual chest tube to right lateral chest wall to suction with serosanguineous drainage. GASTROINTESTINAL: Abdomen soft, obese, nondistended. Positive bowel sounds. Tube feeds infusing via PEG tube. GENITOURINARY: Without palpable bladder distension. Female external catheter MUSCULOSKELETAL: Extremities without clubbing, cyanosis. No mottling or clubbing. NEUROLOGICAL: Awake, appears to track with the eyes, not following commands, slight withdrawal to noxious stimulation. Intermittent facial twitching noted to left side. PSYCHIATRIC: Unable to evaluate, sedated. Diagnostic Tests Laboratory: Laboratory Results - last 72 hr 01/14/18 01/16/18 01/17/18 21:00 18:04 01:18 WBC RBC Hgb Hct MCV MCH MCHC RDW Plt Count MPV Prelim Diff (Auto) Neut % (Auto) Lymph % (Auto) [place] % (Auto) Eos % (Auto) Baso % (Auto) Neut # (Auto) Lymph # (Auto) [place] # (Auto) Eos # (Auto) Baso # (Auto) WBC Differential Seg Neuts % (Manual) Band Neuts % (Manual) Lymphocytes % (Manual) Monocytes % (Manual) Eosinophils % (Manual) Basophils % (Manual) Metamyelocytes % (Man) Myelocytes % (Man) Promyelocytes % (Man) Abs Neuts (Manual) Nucleated RBCs/100 WBC Differential Comment Toxic Granulation Platelet Estimate Platelet Morphology RBC Morphology Dimorphic RBCs Spherocytes Sodium Potassium Chloride Carbon Dioxide Anion Gap BUN Creatinine Estimated GFR POC Glucose 124 H 142 H Random Glucose Calcium Phosphorus Magnesium Total Bilirubin AST ALT Alkaline Phosphatase Total Creatine Kinase Troponin I Total Protein Albumin Methylmalonic Acid 0.20 Valproic Acid 01/17/18 01/17/18 01/17/18 04:25 04:25 05:46 WBC 9.6 RBC 3.34 L Hgb 10.6 L Hct 31.3 L MCV 93.5 MCH 31.8 MCHC 34.0 RDW 14.8 Plt Count 489 H MPV 8.6 Prelim Diff (Auto) Slide review pending Neut % (Auto) 62.5 Lymph % (Auto) 20.2 [place] % (Auto) 14.6 H Eos % (Auto) 1.7 Baso % (Auto) 1.0 Neut # (Auto) 6.0 Lymph # (Auto) 1.9 [place] # (Auto) 1.4 H Eos # (Auto) 0.2 Baso # (Auto) 0.1 WBC Differential Manual diff final Seg Neuts % (Manual) 41 Band Neuts % (Manual) 22 H Lymphocytes % (Manual) 15 Monocytes % (Manual) 12 H Eosinophils % (Manual) 1 Basophils % (Manual) 1 Metamyelocytes % (Man) 6 H Myelocytes % (Man) 2 H Promyelocytes % (Man) Abs Neuts (Manual) 6.8 Nucleated RBCs/100 WBC Differential Comment . Toxic Granulation Platelet Estimate High H Platelet Morphology Normal RBC Morphology Normal Dimorphic RBCs Spherocytes Sodium 141 Potassium 3.7 Chloride 104 Carbon Dioxide 26.9 Anion Gap 10 BUN 25 H Creatinine 0.42 L Estimated GFR Greater than 89 POC Glucose 106 Random Glucose 123 H Calcium 8.4 L Phosphorus 3.9 Magnesium 1.8 Total Bilirubin AST ALT Alkaline Phosphatase Total Creatine Kinase Troponin I Total Protein Albumin Methylmalonic Acid Valproic Acid 01/17/18 01/17/18 01/17/18 12:59 14:53 17:44 WBC RBC Hgb Hct MCV MCH MCHC RDW Plt Count MPV Prelim Diff (Auto) Neut % (Auto) Lymph % (Auto) [place] % (Auto) Eos % (Auto) Baso % (Auto) Neut # (Auto) Lymph # (Auto) [place] # (Auto) Eos # (Auto) Baso # (Auto) WBC Differential Seg Neuts % (Manual) Band Neuts % (Manual) Lymphocytes % (Manual) Monocytes % (Manual) Eosinophils % (Manual) Basophils % (Manual) Metamyelocytes % (Man) Myelocytes % (Man) Promyelocytes % (Man) Abs Neuts (Manual) Nucleated RBCs/100 WBC Differential Comment Toxic Granulation Platelet Estimate Platelet Morphology RBC Morphology Dimorphic RBCs Spherocytes Sodium Potassium Chloride Carbon Dioxide Anion Gap BUN Creatinine Estimated GFR POC Glucose 104 119 H Random Glucose Calcium Phosphorus Magnesium Total Bilirubin AST ALT Alkaline Phosphatase Total Creatine Kinase 15 L Troponin I Less than 0.02 L Total Protein Albumin Methylmalonic Acid Valproic Acid 01/17/18 01/17/18 01/18/18 21:01 23:48 04:31 WBC 11.5 H RBC 3.41 L Hgb 10.7 L Hct 32.0 L MCV 93.9 MCH 31.3 MCHC 33.3 RDW 14.5 Plt Count 565 H MPV 8.8 Prelim Diff (Auto) Slide review pending Neut % (Auto) 64.5 Lymph % (Auto) 21.6 [place] % (Auto) 11.3 H Eos % (Auto) 1.8 Baso % (Auto) 0.8 Neut # (Auto) 7.4 Lymph # (Auto) 2.5 [place] # (Auto) 1.3 H Eos # (Auto) 0.2 Baso # (Auto) 0.1 WBC Differential Manual diff final Seg Neuts % (Manual) 63 Band Neuts % (Manual) 4 Lymphocytes % (Manual) 12 Monocytes % (Manual) 11 H Eosinophils % (Manual) 1 Basophils % (Manual) 2 Metamyelocytes % (Man) 1 Myelocytes % (Man) 6 H Promyelocytes % (Man) Abs Neuts (Manual) 8.5 H Nucleated RBCs/100 WBC 1 H Differential Comment . Toxic Granulation 1+ H Platelet Estimate High H Platelet Morphology Enlarged H RBC Morphology Dimorphic RBCs Present H Spherocytes Sodium Potassium Chloride Carbon Dioxide Anion Gap BUN Creatinine Estimated GFR POC Glucose 138 H Random Glucose Calcium Phosphorus Magnesium Total Bilirubin AST ALT Alkaline Phosphatase Total Creatine Kinase Troponin I Less than 0.02 L Total Protein Albumin Methylmalonic Acid Valproic Acid 01/18/18 01/18/18 01/18/18 04:31 06:06 17:14 WBC RBC Hgb Hct MCV MCH MCHC RDW Plt Count MPV Prelim Diff (Auto) Neut % (Auto) Lymph % (Auto) [place] % (Auto) Eos % (Auto) Baso % (Auto) Neut # (Auto) Lymph # (Auto) [place] # (Auto) Eos # (Auto) Baso # (Auto) WBC Differential Seg Neuts % (Manual) Band Neuts % (Manual) Lymphocytes % (Manual) Monocytes % (Manual) Eosinophils % (Manual) Basophils % (Manual) Metamyelocytes % (Man) Myelocytes % (Man) Promyelocytes % (Man) Abs Neuts (Manual) Nucleated RBCs/100 WBC Differential Comment Toxic Granulation Platelet Estimate Platelet Morphology RBC Morphology Dimorphic RBCs Spherocytes Sodium 143 Potassium 3.8 Chloride 107 Carbon Dioxide 26.9 Anion Gap 9 BUN 25 H Creatinine 0.46 L Estimated GFR Greater than 89 POC Glucose 117 H 107 Random Glucose 127 H Calcium 8.3 L Phosphorus 3.2 Magnesium 2.1 Total Bilirubin 0.2 AST 39 H ALT 30 Alkaline Phosphatase 122 H Total Creatine Kinase Troponin I Total Protein 6.9 Albumin 2.0 L Methylmalonic Acid Valproic Acid 01/19/18 01/19/18 01/19/18 00:03 04:00 04:00 WBC 11.7 H RBC 3.52 L Hgb 10.9 L Hct 33.5 L MCV 95.2 MCH 31.0 MCHC 32.6 RDW 14.9 Plt Count 544 H MPV 8.9 Prelim Diff (Auto) Slide review pending Neut % (Auto) 67.6 Lymph % (Auto) 19.8 [place] % (Auto) 10.1 H Eos % (Auto) 1.7 Baso % (Auto) 0.8 Neut # (Auto) 7.9 H Lymph # (Auto) 2.3 [place] # (Auto) 1.2 H Eos # (Auto) 0.2 Baso # (Auto) 0.1 WBC Differential Manual diff final Seg Neuts % (Manual) 59 Band Neuts % (Manual) 4 Lymphocytes % (Manual) 21 Monocytes % (Manual) 11 H Eosinophils % (Manual) 1 Basophils % (Manual) Metamyelocytes % (Man) 1 Myelocytes % (Man) 2 H Promyelocytes % (Man) 1 H Abs Neuts (Manual) 7.8 H Nucleated RBCs/100 WBC 1 H Differential Comment . Toxic Granulation Platelet Estimate High H Platelet Morphology Normal RBC Morphology Dimorphic RBCs Spherocytes Occ H Sodium 144 Potassium 3.9 Chloride 110 H Carbon Dioxide 25.9 Anion Gap 8 BUN 25 H Creatinine 0.40 L Estimated GFR Greater than 89 POC Glucose 120 H Random Glucose 111 H Calcium 8.4 L Phosphorus 3.2 Magnesium 1.9 Total Bilirubin AST ALT Alkaline Phosphatase Total Creatine Kinase Troponin I Total Protein Albumin Methylmalonic Acid Valproic Acid Less than 3 L 01/19/18 01/19/18 05:14 12:11 WBC RBC Hgb Hct MCV MCH MCHC RDW Plt Count MPV Prelim Diff (Auto) Neut % (Auto) Lymph % (Auto) [place] % (Auto) Eos % (Auto) Baso % (Auto) Neut # (Auto) Lymph # (Auto) [place] # (Auto) Eos # (Auto) Baso # (Auto) WBC Differential Seg Neuts % (Manual) Band Neuts % (Manual) Lymphocytes % (Manual) Monocytes % (Manual) Eosinophils % (Manual) Basophils % (Manual) Metamyelocytes % (Man) Myelocytes % (Man) Promyelocytes % (Man) Abs Neuts (Manual) Nucleated RBCs/100 WBC Differential Comment Toxic Granulation Platelet Estimate Platelet Morphology RBC Morphology Dimorphic RBCs Spherocytes Sodium Potassium Chloride Carbon Dioxide Anion Gap BUN Creatinine Estimated GFR POC Glucose 122 H 128 H Random Glucose Calcium Phosphorus Magnesium Total Bilirubin AST ALT Alkaline Phosphatase Total Creatine Kinase Troponin I Total Protein Albumin Methylmalonic Acid Valproic Acid Result Diagrams: 01/19/18 04:00 01/19/18 04:00 Microbiology: Microbiology 12/19/17 11:30 Fungal Smear - Final Bronchial Washings - Bronchial Rare budding yeast Fungal Culture - Final 12/19/17 11:30 Acid Fast Bacilli Smear - Final Bronchial Washings - Bronchial No acid fast bacilli seen Mycobacterial Culture - Preliminary No growth in 4 weeks 01/14/18 01:00 Gram Stain - Final Sputum - Tracheal Aspirate Sputum Culture - Final Klebsiella pneumoniae Imaging: Head CT 12/17/17 08:02 CONCLUSION: 1. 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 2. Otherwise negative. . Abdomen/Pelvis CT 12/17/17 10:45 CONCLUSION: 1. Moderate diffuse colonic wall thickening exaggerated by lack of colonic distention. This may be due to low-protein state/edema. However, differential considerations include infectious and inflammatory colitis. 2. Moderate-sized right hydropneumothorax with airspace disease in the lung bases as described on chest CT. 3. Additional ancillary findings, as above. Chest CT 01/03/18 11:56 CONCLUSION: 1. Consolidation at both lung bases has improved. Cavitary lesions on the right are slightly larger as measured above. 2. Improving pneumomediastinum, pneumopericardium and subcutaneous emphysema. Near complete resolution of previous right pneumothorax. 2 right chest tubes present. Trace pleural fluid present. 3. Patchy airspace disease remains in the lungs probably with some fibrotic changes well. 4. Endotracheal tube and nasogastric tube in good position. Head MRI 01/15/18 20:01 CONCLUSION: 1. Bilateral mastoiditis. 2. No acute intercranial findings. Venous Doppler Study 01/18/18 00:00 CONCLUSION: 1. Thrombosis of the cephalic vein in in the upper arm. Chest X-Ray 01/19/18 06:00 CONCLUSION: Stable exam compared with January 18. 2 right chest tubes without pneumothorax. Procedures: 12/17/2017: Endotracheal intubation 12/17/2017: OGT placement 12/17/2017: Femoral central line placement 12/17/2017: Right-sided chest tube placement x 2 12/17/2017: Right radial arterial line placement 12/17/2017: Read catheter placement 12/21/2017:Right-sided chest tube placed #3 12/26/2017: CT #1 discontinued 01/08/2018: Right thoracoscopic decortication, closure of bronchopleural fistula. Debridement and irrigation of the prior chest tube wounds 01/11/2018: Tracheostomy placement 01/13/2018: PEG tube placement Assessment and Plan - Disease Oriented Problem List (1) Respiratory failure (2) Pneumonia (3) Septic shock - Symptom Scale (1) Pain Comment: History of chronic pain to back. Acute pain secondary to invasive interventions, bedbound due to critical illness. (2) Shortness of breath 0-10 Scale: Unable to quantify Comment: Currently intubated on mechanical ventilation. Pertinent Non-Medical Issues: Psychosocial: Patient was born and raised in [place], [place]. She has been to her , Luis, for approximately 20 years. She has 1 daughter, Margarita. She is a retired teacher. Spiritual: Evangelical bryson Legal: No advance directives completed. Ethical issues impacting care: No ethical issues identified. Important Contacts: Luis Woodruff, : [phone] Prognosis: Mrs. Woodruff is a 62-year-old female with multiple comorbidities and recent acute hospitalizations. Patient currently requiring mechanical ventilation, being treated for septic shock and bilateral aspiration pneumonias. Currently status post 3 chest tubes secondary to worsening emphysema. Has been evaluated by cardiothoracic surgery, poor surgical candidate at this time. Overall prognosis is guarded. Patient at a very high risk for further complications, continue decline and . Code Status: Full Code Plan: * CODE STATUS: Full code. Risks, benefits and limitations of CPR readdressed with patient's on 01/12. * MEDICAL DECISION-MAKER: Patient unable to participate in medical decision making given clinical condition -on vent support, sedated. Unclear at this time if patient will regain medical decision-making capacity. No advance directives completed. As per [place] statute, healthcare proxy decision-maker falls to patient's Luis Woodruff. He has accepted this role and is fully supported by their family. * GOALS OF CARE: Per last discussion with palliative care, patient`s elected to with continue aggressive management including full code. Short-term and long-term prognosis has been discussed in detail with patient's . reports that he is optimistic as he has seen some improvement in spite of prolonged hospitalization. * Attempted to contact patient`s spouse by telephone 01/19/18- no response-left voice message and contact information. * SYMPTOMS: = Pain: Acute on chronic. Patient with history of chronic back pain status post multiple surgical interventions/appliances in place. Following with pain doctor in [facility]. Morphine Sulfate 1-2mg q 4 hrs available. Currently not showing any signs of pain. No other recommendations at this time. * Spiritual offered and declined. * Case discussed with bedside RN. * Palliative care to continue to follow-up for emotional support and goals of care patient's clinical course continues to evolve. receptive to palliative care follow-ups. Attestation Attestation: To help prompt me to consider important information that might be impacting today's encounter and assessment, information from prior notes written by myself or my colleagues may have been "brought forward" into today's note. My signature on this note, however, is an attestation that I personally performed the exam, history, and/or decision-making noted today, and, unless otherwise indicated, the interactions with patient, family, and staff as well as the review of records all occurred today. I also attest that the listed assessment and stated plan reflect my best clinical judgment today based on the combination of historical information, prior notes, and today's exam/ interactions. When time spent is documented, it refers only to time spent today by the signer, or if indicated, combined time spent today by collaborating physician/nurse practitioner.
[2018-01-19] MEDS: Labetalol HCl Inj 100 MG/20 ML Vial IV.PUSH PRN ×2 (18:33→21:23)
[2018-01-19] MEDS: Dexmedetomidine Inj 1,000 MCG in Sodium Chlor 0.9% Inj 240 ML IV.CONT PRN (23:46)
[2018-01-20] MEDS: Insulin NovoLIN Regular Correctional Sugar Inj SQ SCH ×4 (00:16→19:42)
[2018-01-20] MEDS: Oral Hygiene Kit OROPHARYNG SCH ×4 (00:17→15:38)
[2018-01-20 04:29] LABS: Baso # (Auto) 0.2 th/mm3 (0.0-0.2); Baso % (Auto) 1.2 % (0.0-2.0); Eos # (Auto) 0.3 th/mm3 (0.0-0.4); Eos % (Auto) 1.8 % (0.0-4.0); Hematocrit 31.9 % (35.0-46.0); Hemoglobin 10.6 gm/dL (11.6-15.3); Lymph # (Auto) 2.7 th/mm3 (1.0-4.8); Lymph % (Auto) 18.3 % (9.0-44.0); Mean Corpuscular HGB Conc 33.2 % (32.0-36.0); Mean Corpuscular Hemoglobin 31.2 pg (27.0-34.0); Mean Corpuscular Volume 93.9 fL (80.0-100.0); Mean Platelet Volume 8.6 fL (7.0-11.0); Mono # (Auto) 1.4 th/mm3 (0.0-0.9); Mono % (Auto) 9.5 % (0.0-8.0); Neut # (Auto) 10.3 th/mm3 (1.8-7.7); Neut % (Auto) 69.2 % (16.0-70.0); Platelet Count 525 th/mm3 (150-450); Red Blood Count 3.39 mil/mm3 (4.00-5.30); Red Cell Distribution Width 14.7 % (11.6-17.2); White Blood Count 14.8 th/mm3 (4.0-11.0)
[2018-01-20 04:56] LABS: Albumin 2.1 g/dL (3.4-5.0); Anion Gap 7 meq/L (5-15); Aspartate Aminotransferase 43 U/L (15-37); Blood Urea Nitrogen 26 mg/dL (7-18); Calcium 8.6 mg/dL (8.5-10.1); Chloride 114 meq/L (98-107); Glomerular Filtration Rate Greater Than 89 mL/min (>89); Glucose,Random 123 mg/dL (74-106); Potassium 4.2 meq/L (3.5-5.1); Sodium 145 meq/L (136-145)
[2018-01-20 05:01] LABS: Alanine Aminotransferase 40 U/L (10-53); Alkaline Phosphatase 132 U/L (45-117); Total Protein 6.9 g/dL (6.4-8.2)
[2018-01-20] MEDS: Heparin - SQ 10,000 UNITS/ML Vial SQ SCH ×2 (05:29→13:14)
[2018-01-20 07:41] LABS: Lymphocytes 15 % (9-44); Monocytes 10 % (0-8); Myelocytes 6 % (0-0)
[2018-01-20 07:42] LABS: Platelet Morphology Normal (Normal)
[2018-01-20] MEDS: Chlorhexidine 0.12% Oral Kit 15 ML UDC OROPHARYNG SCH (07:59)
[2018-01-20] MEDS: Potassium Chloride 25 MEQ Effervescent Tablet NG/OG SCH (08:12)
[2018-01-20] MEDS: Famotidine 20 MG Tablet PO SCH (08:12)
[2018-01-20] MEDS: Senna/Docusate Sodium 8.6/50 MG Tablet PO SCH (08:12)
[2018-01-20] MEDS: Carboxymethylcellulose 0.5% Opth Drops 15 ML Bottle EACH EYE SCH (08:12)
[2018-01-20] MEDS: Collagenase Oint 30 GM Tube TOPICAL SCH (08:13)
--- NOTE | 2018-01-20 14:22 | P.PNPAL ---
Reason for Visit Reason for visit: a. To assist with evaluation and management of symptoms including: pain, shortness of breath b. To assist medical decision maker(s) with: better understanding of current medical conditions; weighing benefits/burdens of medical treatment options; making medical treatment decisions. Subjective Subjective/Interval History: Follow-up medically necessary for family support and further clarification of goals of medical treatment. Patient seen and examined in the presence of bedside RN and . Patient is back on dexmedetomidine infusion. Bedside RN reported that patient was getting tachycardic and tachypneic. She remains on the ventilator and spontaneous breathing trials in progress. fish farm manager in room informing patient spouse that patient has been accepted at [facility]. Patient`s spouse plans to go and visit facility prior to consenting to transferring patient to [facility]. Laboratory workup revealing WBC 14.8, hemoglobin 10.6, hematocrit 31.9,, platelet count 525, sodium 145, potassium 4.2, BUN/creatinine 7/26, random glucose 123, AST 43, ALT 40, total protein 6.9, albumin 2.1. Tube feeding at goal rate. Bedside nurse reporting that patient has been retaining urine and he has needed straight catheterization almost every 6 hours. Discussed briefly with patient`s spouse complications that patient is most likely to be faced with moving forward. Goals remain aggressive. Patient spouse planning to go [facility] rehabilitation today, though he was hoping that patient would be weaned off the ventilator in this facility. Case discussed with bedside RN and case management. . Family/Friend Interactions: See interval note. . Advance Directives Living Will: Never completed Health Care Surrogate: Never completed Durable Power of Swatch Checker: Never completed Health Care Surrogate Name and Number: HCP Luis Woodruff Objective Vital Signs: Vital Signs 01/19/18 14:00 01/19/18 14:26 01/19/18 15:00 Temperature Pulse Rate 112 H 103 H Respiratory Rate 24 26 H 20 Blood Pressure 140/82 149/87 H Pulse Oximetry 98 97 98 01/19/18 15:23 01/19/18 16:00 01/19/18 16:24 Temperature 99.6 F Pulse Rate 106 H 112 H Respiratory Rate 25 H 20 Blood Pressure 159/91 H Pulse Oximetry 99 98 01/19/18 17:00 01/19/18 18:00 01/19/18 18:46 Temperature Pulse Rate 124 H 115 H 109 H Respiratory Rate 20 20 20 Blood Pressure 162/94 H 171/95 H 173/96 H Pulse Oximetry 98 98 99 01/19/18 19:00 01/19/18 20:00 01/19/18 21:00 Temperature 100.9 F H Pulse Rate 107 H 115 H 119 H Respiratory Rate 20 20 20 Blood Pressure 163/90 H 166/96 H 163/97 H Pulse Oximetry 99 98 98 01/19/18 21:30 01/19/18 21:35 01/19/18 21:40 Temperature Pulse Rate 106 H 101 H 104 H Respiratory Rate 20 20 20 Blood Pressure 163/92 H 156/89 H 163/93 H Pulse Oximetry 98 98 98 01/19/18 21:44 01/19/18 22:00 01/19/18 22:24 Temperature Pulse Rate 103 H 102 H 104 H Respiratory Rate 25 H 20 22 Blood Pressure 137/74 Pulse Oximetry 99 99 01/19/18 23:00 01/20/18 00:00 01/20/18 00:24 Temperature 100.8 F H Pulse Rate 106 H 106 H 110 H Respiratory Rate 22 22 23 Blood Pressure Pulse Oximetry 99 99 01/20/18 01:00 01/20/18 02:00 01/20/18 02:45 Temperature Pulse Rate 109 H 108 H 106 H Respiratory Rate 23 23 22 Blood Pressure 153/95 H Pulse Oximetry 99 99 99 01/20/18 03:00 01/20/18 04:00 01/20/18 04:08 Temperature 99.8 F H Pulse Rate 105 H 104 H 103 H Respiratory Rate 21 23 16 Blood Pressure 153/90 H 159/85 H Pulse Oximetry 98 99 100 01/20/18 05:00 01/20/18 06:00 01/20/18 08:00 Temperature Pulse Rate 100 H 99 H 95 H Respiratory Rate 23 20 19 Blood Pressure 155/88 H 154/88 H Pulse Oximetry 99 99 99 01/20/18 08:02 01/20/18 11:15 Temperature Pulse Rate 92 H Respiratory Rate 28 H 22 Blood Pressure Pulse Oximetry 100 99 Intake & Output 01/19/18 01/20/18 01/20/18 18:59 06:59 18:59 Intake Total 640 / 640 832 / 832 Output Total 1600 / 1600 1218 / 1218 Balance -960 / -960 -386 / -386 Weight 63.1 kg Intake: IV 250 / 250 Precedex Inj 1,000 MCG In NS 250 / 250 Inj 240 ML @ 0.2 MCG/KG/HR 3.48 mls/hr IV.CONT TITRATE PRN Rx# :[id number] Tube Feeding 520 / 520 482 / 482 Water Bolus Amount 120 / 120 100 / 100 Output: Stool 400 / 400 800 / 800 Urine Amount (Catheter) 1200 / 1200 400 / 400 Straight 1200 / 1200 400 / 400 Chest Tube Drainage Right Y Connected Other: Date of Last Bowel Movement 01/19/18 01/20/18 # Bowel Movements 3 Physical Exam: CONSTITUTIONAL/GENERAL: Obese female on mechanical ventilation via trach resting in bed in no apparent distress. TUBES/LINES/DRAINS: Tracheostomy, PIV's , bilateral soft wrist restraints, SCD' s. Read catheter, rectal tube with moderate amount of stool. Chest tube to right lung. PEG tube SKIN: No jaundice, rashes, or lesions. Ecchymoses on upper extremities. Blisters to left upper extremity. Skin temperature appropriate. Not diaphoretic. HEAD: Atraumatic. Normocephalic. EYES: Pupils equal and round and reactive. No scleral icterus. No injection or drainage. ENT: Hearing normal. no nasal drainage noted. Moist oral mucosa. NECK: Trachea midline. Tracheostomy in place. CARDIOVASCULAR: Tachycardic with heart rate in the 120s. S1, S2 normal. peripheral pulses symmetric. RESPIRATORY/CHEST: Symmetric. Tachypneic RR 27. Rhonchi in all ornelas. dual chest tube to right lateral chest wall to suction with serosanguineous drainage. GASTROINTESTINAL: Abdomen soft, obese, nondistended. Positive bowel sounds. Tube feeds infusing via PEG tube. GENITOURINARY: Without palpable bladder distension. MUSCULOSKELETAL: Extremities without clubbing, cyanosis. No mottling or clubbing. NEUROLOGICAL: Awake, appears to track with the eyes, not following commands, slight withdrawal to noxious stimulation. Intermittent facial twitching noted to left side. PSYCHIATRIC: Unable to evaluate, sedated. Diagnostic Tests Laboratory: Laboratory Results - last 72 hr 01/14/18 01/16/18 01/17/18 21:00 12:40 14:53 WBC RBC Hgb Hct MCV MCH MCHC RDW Plt Count MPV Prelim Diff (Auto) Neut % (Auto) Lymph % (Auto) Sunflower % (Auto) Eos % (Auto) Baso % (Auto) Neut # (Auto) Lymph # (Auto) Sunflower # (Auto) Eos # (Auto) Baso # (Auto) WBC Differential Seg Neuts % (Manual) Band Neuts % (Manual) Lymphocytes % (Manual) Monocytes % (Manual) Eosinophils % (Manual) Basophils % (Manual) Metamyelocytes % (Man) Myelocytes % (Man) Promyelocytes % (Man) Abs Neuts (Manual) Nucleated RBCs/100 WBC Differential Comment Toxic Granulation Platelet Estimate Platelet Morphology Dimorphic RBCs Spherocytes Sodium Potassium Chloride Carbon Dioxide Anion Gap BUN Creatinine Estimated GFR POC Glucose Random Glucose Calcium Phosphorus Magnesium Total Bilirubin AST ALT Alkaline Phosphatase Total Creatine Kinase 15 L Troponin I Less than 0.02 L Total Protein Albumin Thiamine 226 H Methylmalonic Acid 0.20 Valproic Acid 01/17/18 01/17/18 01/17/18 17:44 21:01 23:48 WBC RBC Hgb Hct MCV MCH MCHC RDW Plt Count MPV Prelim Diff (Auto) Neut % (Auto) Lymph % (Auto) Sunflower % (Auto) Eos % (Auto) Baso % (Auto) Neut # (Auto) Lymph # (Auto) Sunflower # (Auto) Eos # (Auto) Baso # (Auto) WBC Differential Seg Neuts % (Manual) Band Neuts % (Manual) Lymphocytes % (Manual) Monocytes % (Manual) Eosinophils % (Manual) Basophils % (Manual) Metamyelocytes % (Man) Myelocytes % (Man) Promyelocytes % (Man) Abs Neuts (Manual) Nucleated RBCs/100 WBC Differential Comment Toxic Granulation Platelet Estimate Platelet Morphology Dimorphic RBCs Spherocytes Sodium Potassium Chloride Carbon Dioxide Anion Gap BUN Creatinine Estimated GFR POC Glucose 119 H 138 H Random Glucose Calcium Phosphorus Magnesium Total Bilirubin AST ALT Alkaline Phosphatase Total Creatine Kinase Troponin I Less than 0.02 L Total Protein Albumin Thiamine Methylmalonic Acid Valproic Acid 01/18/18 01/18/18 01/18/18 04:31 04:31 06:06 WBC 11.5 H RBC 3.41 L Hgb 10.7 L Hct 32.0 L MCV 93.9 MCH 31.3 MCHC 33.3 RDW 14.5 Plt Count 565 H MPV 8.8 Prelim Diff (Auto) Slide review pending Neut % (Auto) 64.5 Lymph % (Auto) 21.6 Sunflower % (Auto) 11.3 H Eos % (Auto) 1.8 Baso % (Auto) 0.8 Neut # (Auto) 7.4 Lymph # (Auto) 2.5 Sunflower # (Auto) 1.3 H Eos # (Auto) 0.2 Baso # (Auto) 0.1 WBC Differential Manual diff final Seg Neuts % (Manual) 63 Band Neuts % (Manual) 4 Lymphocytes % (Manual) 12 Monocytes % (Manual) 11 H Eosinophils % (Manual) 1 Basophils % (Manual) 2 Metamyelocytes % (Man) 1 Myelocytes % (Man) 6 H Promyelocytes % (Man) Abs Neuts (Manual) 8.5 H Nucleated RBCs/100 WBC 1 H Differential Comment . Toxic Granulation 1+ H Platelet Estimate High H Platelet Morphology Enlarged H Dimorphic RBCs Present H Spherocytes Sodium 143 Potassium 3.8 Chloride 107 Carbon Dioxide 26.9 Anion Gap 9 BUN 25 H Creatinine 0.46 L Estimated GFR Greater than 89 POC Glucose 117 H Random Glucose 127 H Calcium 8.3 L Phosphorus 3.2 Magnesium 2.1 Total Bilirubin 0.2 AST 39 H ALT 30 Alkaline Phosphatase 122 H Total Creatine Kinase Troponin I Total Protein 6.9 Albumin 2.0 L Thiamine Methylmalonic Acid Valproic Acid 01/18/18 01/19/18 01/19/18 17:14 00:03 04:00 WBC 11.7 H RBC 3.52 L Hgb 10.9 L Hct 33.5 L MCV 95.2 MCH 31.0 MCHC 32.6 RDW 14.9 Plt Count 544 H MPV 8.9 Prelim Diff (Auto) Slide review pending Neut % (Auto) 67.6 Lymph % (Auto) 19.8 Sunflower % (Auto) 10.1 H Eos % (Auto) 1.7 Baso % (Auto) 0.8 Neut # (Auto) 7.9 H Lymph # (Auto) 2.3 Sunflower # (Auto) 1.2 H Eos # (Auto) 0.2 Baso # (Auto) 0.1 WBC Differential Manual diff final Seg Neuts % (Manual) 59 Band Neuts % (Manual) 4 Lymphocytes % (Manual) 21 Monocytes % (Manual) 11 H Eosinophils % (Manual) 1 Basophils % (Manual) Metamyelocytes % (Man) 1 Myelocytes % (Man) 2 H Promyelocytes % (Man) 1 H Abs Neuts (Manual) 7.8 H Nucleated RBCs/100 WBC 1 H Differential Comment . Toxic Granulation Platelet Estimate High H Platelet Morphology Normal Dimorphic RBCs Spherocytes Occ H Sodium Potassium Chloride Carbon Dioxide Anion Gap BUN Creatinine Estimated GFR POC Glucose 107 120 H Random Glucose Calcium Phosphorus Magnesium Total Bilirubin AST ALT Alkaline Phosphatase Total Creatine Kinase Troponin I Total Protein Albumin Thiamine Methylmalonic Acid Valproic Acid 01/19/18 01/19/18 01/19/18 04:00 05:14 12:11 WBC RBC Hgb Hct MCV MCH MCHC RDW Plt Count MPV Prelim Diff (Auto) Neut % (Auto) Lymph % (Auto) Sunflower % (Auto) Eos % (Auto) Baso % (Auto) Neut # (Auto) Lymph # (Auto) Sunflower # (Auto) Eos # (Auto) Baso # (Auto) WBC Differential Seg Neuts % (Manual) Band Neuts % (Manual) Lymphocytes % (Manual) Monocytes % (Manual) Eosinophils % (Manual) Basophils % (Manual) Metamyelocytes % (Man) Myelocytes % (Man) Promyelocytes % (Man) Abs Neuts (Manual) Nucleated RBCs/100 WBC Differential Comment Toxic Granulation Platelet Estimate Platelet Morphology Dimorphic RBCs Spherocytes Sodium 144 Potassium 3.9 Chloride 110 H Carbon Dioxide 25.9 Anion Gap 8 BUN 25 H Creatinine 0.40 L Estimated GFR Greater than 89 POC Glucose 122 H 128 H Random Glucose 111 H Calcium 8.4 L Phosphorus 3.2 Magnesium 1.9 Total Bilirubin AST ALT Alkaline Phosphatase Total Creatine Kinase Troponin I Total Protein Albumin Thiamine Methylmalonic Acid Valproic Acid Less than 3 L 01/19/18 01/19/18 01/20/18 18:29 23:42 03:31 WBC RBC Hgb Hct MCV MCH MCHC RDW Plt Count MPV Prelim Diff (Auto) Neut % (Auto) Lymph % (Auto) Sunflower % (Auto) Eos % (Auto) Baso % (Auto) Neut # (Auto) Lymph # (Auto) Sunflower # (Auto) Eos # (Auto) Baso # (Auto) WBC Differential Seg Neuts % (Manual) Band Neuts % (Manual) Lymphocytes % (Manual) Monocytes % (Manual) Eosinophils % (Manual) Basophils % (Manual) Metamyelocytes % (Man) Myelocytes % (Man) Promyelocytes % (Man) Abs Neuts (Manual) Nucleated RBCs/100 WBC Differential Comment Toxic Granulation Platelet Estimate Platelet Morphology Dimorphic RBCs Spherocytes Sodium Potassium Chloride Carbon Dioxide Anion Gap BUN Creatinine Estimated GFR POC Glucose 131 H 115 H 131 H Random Glucose Calcium Phosphorus Magnesium Total Bilirubin AST ALT Alkaline Phosphatase Total Creatine Kinase Troponin I Total Protein Albumin Thiamine Methylmalonic Acid Valproic Acid 01/20/18 01/20/18 01/20/18 04:03 04:03 05:28 WBC 14.8 H RBC 3.39 L Hgb 10.6 L Hct 31.9 L MCV 93.9 MCH 31.2 MCHC 33.2 RDW 14.7 Plt Count 525 H MPV 8.6 Prelim Diff (Auto) Slide review pending Neut % (Auto) 69.2 Lymph % (Auto) 18.3 Sunflower % (Auto) 9.5 H Eos % (Auto) 1.8 Baso % (Auto) 1.2 Neut # (Auto) 10.3 H Lymph # (Auto) 2.7 Sunflower # (Auto) 1.4 H Eos # (Auto) 0.3 Baso # (Auto) 0.2 WBC Differential Manual diff final Seg Neuts % (Manual) 59 Band Neuts % (Manual) 10 H Lymphocytes % (Manual) 15 Monocytes % (Manual) 10 H Eosinophils % (Manual) Basophils % (Manual) Metamyelocytes % (Man) Myelocytes % (Man) 6 H Promyelocytes % (Man) Abs Neuts (Manual) 11.1 H Nucleated RBCs/100 WBC Differential Comment . Toxic Granulation Platelet Estimate High H Platelet Morphology Normal Dimorphic RBCs Spherocytes Sodium 145 Potassium 4.2 Chloride 114 H Carbon Dioxide 24.0 Anion Gap 7 BUN 26 H Creatinine 0.37 L Estimated GFR Greater than 89 POC Glucose 107 Random Glucose 123 H Calcium 8.6 Phosphorus 4.0 Magnesium 2.0 Total Bilirubin 0.2 AST 43 H ALT 40 Alkaline Phosphatase 132 H Total Creatine Kinase Troponin I Total Protein 6.9 Albumin 2.1 L Thiamine Methylmalonic Acid Valproic Acid 01/20/18 13:33 WBC RBC Hgb Hct MCV MCH MCHC RDW Plt Count MPV Prelim Diff (Auto) Neut % (Auto) Lymph % (Auto) Sunflower % (Auto) Eos % (Auto) Baso % (Auto) Neut # (Auto) Lymph # (Auto) Sunflower # (Auto) Eos # (Auto) Baso # (Auto) WBC Differential Seg Neuts % (Manual) Band Neuts % (Manual) Lymphocytes % (Manual) Monocytes % (Manual) Eosinophils % (Manual) Basophils % (Manual) Metamyelocytes % (Man) Myelocytes % (Man) Promyelocytes % (Man) Abs Neuts (Manual) Nucleated RBCs/100 WBC Differential Comment Toxic Granulation Platelet Estimate Platelet Morphology Dimorphic RBCs Spherocytes Sodium Potassium Chloride Carbon Dioxide Anion Gap BUN Creatinine Estimated GFR POC Glucose 128 H Random Glucose Calcium Phosphorus Magnesium Total Bilirubin AST ALT Alkaline Phosphatase Total Creatine Kinase Troponin I Total Protein Albumin Thiamine Methylmalonic Acid Valproic Acid Result Diagrams: 01/20/18 04:03 01/20/18 04:03 Microbiology: Microbiology 12/19/17 11:30 Fungal Smear - Final Bronchial Washings - Bronchial Rare budding yeast Fungal Culture - Final Imaging: Head CT 12/17/17 08:02 CONCLUSION: 1. 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 2. Otherwise negative. . Abdomen/Pelvis CT 12/17/17 10:45 CONCLUSION: 1. Moderate diffuse colonic wall thickening exaggerated by lack of colonic distention. This may be due to low-protein state/edema. However, differential considerations include infectious and inflammatory colitis. 2. Moderate-sized right hydropneumothorax with airspace disease in the lung bases as described on chest CT. 3. Additional ancillary findings, as above. Chest CT 01/03/18 11:56 CONCLUSION: 1. Consolidation at both lung bases has improved. Cavitary lesions on the right are slightly larger as measured above. 2. Improving pneumomediastinum, pneumopericardium and subcutaneous emphysema. Near complete resolution of previous right pneumothorax. 2 right chest tubes present. Trace pleural fluid present. 3. Patchy airspace disease remains in the lungs probably with some fibrotic changes well. 4. Endotracheal tube and nasogastric tube in good position. Head MRI 01/15/18 20:01 CONCLUSION: 1. Bilateral mastoiditis. 2. No acute intercranial findings. Venous Doppler Study 01/18/18 00:00 CONCLUSION: 1. Thrombosis of the cephalic vein in in the upper arm. Chest X-Ray 01/19/18 06:00 CONCLUSION: Stable exam compared with January 18. 2 right chest tubes without pneumothorax. Procedures: 12/17/2017: Endotracheal intubation 12/17/2017: OGT placement 12/17/2017: Femoral central line placement 12/17/2017: Right-sided chest tube placement x 2 12/17/2017: Right radial arterial line placement 12/17/2017: Read catheter placement 12/21/2017:Right-sided chest tube placed #3 12/26/2017: CT #1 discontinued 01/08/2018: Right thoracoscopic decortication, closure of bronchopleural fistula. Debridement and irrigation of the prior chest tube wounds 01/11/2018: Tracheostomy placement 01/13/2018: PEG tube placement Assessment and Plan - Disease Oriented Problem List (1) Respiratory failure (2) Pneumonia (3) Septic shock - Symptom Scale (1) Pain Comment: History of chronic pain to back. Acute pain secondary to invasive interventions, bedbound due to critical illness. (2) Shortness of breath 0-10 Scale: Unable to quantify Comment: Currently intubated on mechanical ventilation. Pertinent Non-Medical Issues: Psychosocial: Patient was born and raised in [place], [place]. She has been to her , Luis, for approximately 20 years. She has 1 daughter, Margarita. She is a retired teacher. Spiritual: [employer] Legal: No advance directives completed. Ethical issues impacting care: No ethical issues identified. Important Contacts: Luis Woodruff, : [phone] Prognosis: Mrs. Woodruff is a 62-year-old female with multiple comorbidities and recent acute hospitalizations. Patient currently requiring mechanical ventilation, being treated for septic shock and bilateral aspiration pneumonias. Currently status post 3 chest tubes secondary to worsening emphysema. Has been evaluated by cardiothoracic surgery, poor surgical candidate at this time. Overall prognosis is guarded. Patient at a very high risk for further complications, continue decline and . Code Status: Full Code Plan: * CODE STATUS: Full code. Risks, benefits and limitations of CPR readdressed with patient's on 01/12. * MEDICAL DECISION-MAKER: Patient unable to participate in medical decision making given clinical condition -on vent support, sedated. Unclear at this time if patient will regain medical decision-making capacity. No advance directives completed. As per [place] statute, healthcare proxy decision-maker falls to patient's Luis Woodruff. He has accepted this role and is fully supported by their family. * GOALS OF CARE: Goals remain aggressive. Patient spouse planning on going to see [facility] where patient will most likely be transferred to for ventilator weaning. Mr. Woodruff remains optimistic that patient will get better despite prolonged hospitalization. * SYMPTOMS: = =Pain: Acute on chronic. Patient with history of chronic back pain status post multiple surgical interventions/appliances in place. Following with pain doctor in [facility]. Morphine Sulfate 1-2mg q 4 hrs available. Currently not showing any signs of pain. No other recommendations at this time. == Shortness of breath: s/p right thorascopic decortication, closure of bronchopleural fistula, debridement and irrigation of chest tube wounds. Patient is currently intubated on mechanical ventilation. Spontaneous breathing trials in progress. * Spiritual offered and declined. * Case discussed with bedside RN. * Palliative care to continue to follow-up for emotional support and goals of care patient's clinical course continues to evolve. receptive to palliative care follow-ups. Attestation Attestation: To help prompt me to consider important information that might be impacting today's encounter and assessment, information from prior notes written by myself or my colleagues may have been "brought forward" into today's note. My signature on this note, however, is an attestation that I personally performed the exam, history, and/or decision-making noted today, and, unless otherwise indicated, the interactions with patient, family, and staff as well as the review of records all occurred today. I also attest that the listed assessment and stated plan reflect my best clinical judgment today based on the combination of historical information, prior notes, and today's exam/ interactions. When time spent is documented, it refers only to time spent today by the signer, or if indicated, combined time spent today by collaborating physician/nurse practitioner.
--- NOTE | 2018-01-20 14:22 | P.PNCC ---
Subjective Subjective Remarks/Hospital Course: This is a 62yF who was originally admitted on 11/23 with a diagnosis of colitis, found to have enterovirus. discharged on 12/11 at that time on PO vancomycin, but came back on 12/13 with altered mental status and hypoglycemia, again discharged on 12/15. She was mildly fatigued on 12/16 according to her and asked to wait another day before traveling back to her home in [place]. This morning, she was unarousable and her called 911. She was intubated upon arrival to the emergency department for agonal respirations. CXR demonstrates bilateral multifocal pneumonia. She is febrile, hypotensive. CVL placed in the ER and vasopressors initiated after 2L bolus crystalloid. CT chest/abd/pelvis demonstrates right pneumothorax, densely consolidated right lower lobe, bilateral pulmonary infiltrates, evidence of ongoing colitis. Patient continue to be unstable. Immediately after identifying ptx on CT scan, I emergently placed right chest tube with some improvements in hemodynamics, but ongoing distributive shock persists. I placed arterial line. No additional information available from the patient, ROS unobtainable. In discussion with the , she has not had any new complaints in the 48h she was home, and other than mild fatigue last night, no new complaints. She was able to walk to the bathroom without assistance yesterday. 12/18: shock remains. now on levophed, vasopressin, phenylephrine. second chest tube placed overnight for worsening SQ air. acidosis remains and is severe. 12/19: Afebrile. Remains on vasopressin drip only. On stress dose hydrocortisone. Evaluated by CT surgery. Not a candidate for intervention at the present time. Chest tube continues to leak. Epoprostenol added today 12/20: Afebrile. FiO2 has decreased and is currently 70%. Currently replacing potassium, phosphorus and magnesium. Recheck later this afternoon. Less chest tube leak today down to 1 chamber. 12/21: Overnight, worsening subcutaneous emphysema. A third chest tube placed by overnight communications manager after discussion with cardiothoracic surgery. Currently hemodynamically stable. Replacing phosphorus today. To be evaluated by CT surgery today. 12/22: Remains sedated, orally intubated on mechanical ventilation. Persistent air leak and chest tube noted. 12/23: Remains sedated, orally intubated on mechanical ventilation. Air leak persists though slightly improved. PEEP at +5 FiO2 55%, inhaled Flolan continues. Central line replaced with right IJ triple-lumen catheter. 12/24: Remains sedated, orally intubated on mechanical ventilation. 1+ air leak from chest tube 3 noted. PEEP +5, FiO2 60%, inhaled Flolan continues. Decreasing subcutaneous emphysema noted. 12/25: Remains sedated, orally improved on mechanical ventilation. 1+ for leak from chest tube 2. PEEP +5, FiO2 50%. Starting to titrate inhaled Flolan down today. Initiating Lasix to mobilize fluid. 12/26: remains intubated. air leak continues from chest tube #3. drainage out of #1 and #2 are very serous. #1 was removed by myself today. all chest tube dressings changed by me today. repeat CXR pending. very volume overloaded. starting to diurese. off vasopressors. off pathway: still high fio2 requirements. 12/27: good diuresis overnight. very hypokalemic today and aggressively replacing. CXR unchanged. air leak unchanged. long discussion over long-term and short-term prognosis and plan of care with entire family today. all questions answered. 12/28: Continues to diurese. Remains on mechanical ventilation. Positive air leak in chest tube 3. 1 unit PRBCs transfused earlier for hemoglobin 6.9. 12/29: Remains on mechanical ventilation. Increasing subcutaneous emphysema noted. Air leak stopped and chest tube #2 and 3 currently. Flolan being titrated down. Chest x-ray shows appropriate positioning of 2 chest tubes with the more medial small right pneumothorax with significant subcutaneous emphysema bilaterally. Patient remains off pressors and is being diuresed to mobilize fluid. 12/30: volume removal continues. Cr still at baseline. fio2 down to 40% and off inhaled Flolan. discussed with Dr. Lynn: will need to wait at least until next week for VATS. Will need trach going forward: discussed with family and they are agreeable. Dr. Lynn asked that both chest tubes remain in place. air leak persists. remains intubated and sedated. 12/31: Sedated, orally intubated on mechanical ventilation. On 40% FiO2 PEEP + 5. Positive air leak in chest tube [address] surgery planning for VATS next week, will need tracheostomy coordinated as well. 01/01: Remains sedated, orally intubated on mechanical ventilation. PEEP +5, FiO2 35%. Being diuresed. 01/02: Sedated, orally intubated on mechanical ventilation. PEEP +5, FiO2 35%. Intermittent air leak in chest tube 3. Being diuresed 01/03: persistent air leak. hypoxia improving. discussed case with Dr. Lynn- he would like pre-operative CT chest for surgical planning. we also discussed timing of tracheostomy: it would be easier surgically to have ett in place to place double-lumen ett, so he would prefer to keep ett until after operation, and then proceed with tracheostomy. tentatively VATS planned for Friday 01/05. 01/04: No events over the night. Patient remains sedated and intubated, sedation achieved with fentanyl and propofol. T-max of 100.2 over the last 24 hours. I/O 3770/3130. Chest tubes remain on suction. 01/05: T-max 99.3. Currently afebrile. Difficulty with weaning from ventilator noted. VATS currently on hold per CT surgery. 01/06: Resting comfortably in bed in no acute distress. Plan for thoracotomy rested on Thursday night. Currently on CPAP trial. Potassium being replaced. 01/07: Resting complaint bed in no acute distress. Plan for thoracotomy tomorrow a.m. 730. Currently on CPAP trial. Transfuse when he PRBC today. Hemoglobin currently 9.6 potassium 3.9. 01/08: Today, status post right thoracoscopic decortication, closure of bronchopleural fistula with debridement and irrigation of the prior chest tube wounds with placement of 2 #32 Italian chest tubes by cardiothoracic surgery patellar procedure well. EBL 250. Adequate urine output. Appears stable. 01/09: T-max 100.2. Currently tachycardic. Receiving 2 units PRBCs. Potassium being replaced. Agitated on the ventilator. 01/10: Twitching on the ventilator/tremor. Temperature max 100.2. 120 cc output from chest tube overnight. Still not arousable/following commands on the ventilator. Likely tracheostomy 01/11: T-max 100.5. Status post #8 Shiley practice tracheostomy today. Order PEG tube for tomorrow. Arousable but not following commands. Thrashes back and forth. 01/12: T-max 100.4. Plan to initiate CPAP trials today. Patient does not follow commands, but does track movement. IV antibiotics discontinued yesterday Zosyn and micafungin. The patient continues on p.o. Vanco. Case discussed with CT surgery plan for continuation chest tubes until placed on trach collar. 01/13: No acute events overnight. Patient underwent PEG placement this afternoon. Remains n.p.o. 6 hours post PEG. During sedation vacation the patient becomes extremely agitated and tachycardic. Right chest tube continues on 20 cm of water suction. 01/14: Sedation vacation underway. Patient noted to have spontaneous eye opening and spontaneous movement of lower extremities but not responding to any commands and no visual tracking. EEG has been ordered. Neurology has been consulted. Noted ammonia level less than 10 this a.m. propofol and fentanyl sedation has been discontinued since yesterday. The patient will remain on Precedex to maintain ventilator synchrony but currently undergoing sedation vacation for accurate neurological assessment. The patient has been initiated on CPAP trials. 01/15: No acute changes in neurological status. Noted spontaneous eye opening today MRI performed which showed no acute intracranial abnormality. Urine culture resulted UTI gram-negative rods, Rocephin 7-day medication regimen added. The patient tolerated CPAP trials for approximately 9.5 hours yesterday. The patient continues on CPAP trials today. 01/16: The patient is noted to be awake and alert smiling nodding head to yes and no questions today. Follow commands for [employer] and by squeezing hands no movement of lower extremities noted . PEG tube site without erythema, tolerating tube feeds. Urine culture results Klebsiella ESBL, Patient Continues with a Purewick urinary drainage device. No change in chest x-ray, right chest tubes continue on suction. 01/17: T-max 99.7. Started on imipenem/cilastatin secondary to yesterday a positive Klebsiella pneumonia UTI/sputum positive. Follows commands and wings high. Muscles weak throughout. 01/18: T-max 99.7. Currently on dexmedetomidine drip at 0.6 mcg/kg/h. One large bowel movement overnight. Continues on CPAP trial. 01/19: Febrile overnight. Remains on dexmedetomidine drip at 0.3 mcg/kg/h. Continues on CPAP trial. We will add clonidine to 0.1 mg 3 times daily for hypertension. SUBJECTIVE: 01/20 Resting in bed in no acute distress. Attempting to wean off dexamethasone currently at 0.2 micro grams per kilogram per hour. Tolerating tube feeding. Objective Vital Signs / I&O: Vital Signs 01/19/18 14:26 01/19/18 15:00 01/19/18 15:23 Temperature Pulse Rate 103 H 106 H Respiratory Rate 26 H 20 25 H Blood Pressure 149/87 H Pulse Oximetry 97 98 01/19/18 16:00 01/19/18 16:24 01/19/18 17:00 Temperature 99.6 F Pulse Rate 112 H 124 H Respiratory Rate 20 20 Blood Pressure 159/91 H 162/94 H Pulse Oximetry 99 98 98 01/19/18 18:00 01/19/18 18:46 01/19/18 19:00 Temperature Pulse Rate 115 H 109 H 107 H Respiratory Rate 20 20 20 Blood Pressure 171/95 H 173/96 H 163/90 H Pulse Oximetry 98 99 99 01/19/18 20:00 01/19/18 21:00 01/19/18 21:30 Temperature 100.9 F H Pulse Rate 115 H 119 H 106 H Respiratory Rate 20 20 20 Blood Pressure 166/96 H 163/97 H 163/92 H Pulse Oximetry 98 98 98 01/19/18 21:35 01/19/18 21:40 01/19/18 21:44 Temperature Pulse Rate 101 H 104 H 103 H Respiratory Rate 20 20 25 H Blood Pressure 156/89 H 163/93 H Pulse Oximetry 98 98 01/19/18 22:00 01/19/18 22:24 01/19/18 23:00 Temperature Pulse Rate 102 H 104 H 106 H Respiratory Rate 20 22 22 Blood Pressure 137/74 Pulse Oximetry 99 99 99 01/20/18 00:00 01/20/18 00:24 01/20/18 01:00 Temperature 100.8 F H Pulse Rate 106 H 110 H 109 H Respiratory Rate 22 23 23 Blood Pressure Pulse Oximetry 99 99 01/20/18 02:00 01/20/18 02:45 01/20/18 03:00 Temperature Pulse Rate 108 H 106 H 105 H Respiratory Rate 23 22 21 Blood Pressure 153/95 H 153/90 H Pulse Oximetry 99 99 98 01/20/18 04:00 01/20/18 04:08 01/20/18 05:00 Temperature 99.8 F H Pulse Rate 104 H 103 H 100 H Respiratory Rate 23 16 23 Blood Pressure 159/85 H 155/88 H Pulse Oximetry 99 100 99 01/20/18 06:00 01/20/18 08:00 01/20/18 08:02 Temperature Pulse Rate 99 H 96 H Respiratory Rate 20 19 28 H Blood Pressure 154/88 H Pulse Oximetry 99 99 100 01/20/18 10:00 01/20/18 11:15 01/20/18 12:00 Temperature Pulse Rate 104 H 92 H 105 H Respiratory Rate 22 Blood Pressure Pulse Oximetry 99 01/20/18 14:00 Temperature Pulse Rate 106 H Respiratory Rate Blood Pressure Pulse Oximetry Intake & Output 01/19/18 01/20/18 01/20/18 18:59 06:59 18:59 Intake Total 640 / 640 832 / 832 Output Total 1600 / 1600 1218 / 1218 Balance -960 / -960 -386 / -386 Weight 63.1 kg Intake: IV 250 / 250 Precedex Inj 1,000 MCG In NS 250 / 250 Inj 240 ML @ 0.2 MCG/KG/HR 3.48 mls/hr IV.CONT TITRATE PRN Rx# :[id number] Tube Feeding 520 / 520 482 / 482 Water Bolus Amount 120 / 120 100 / 100 Output: Stool 400 / 400 800 / 800 Urine Amount (Catheter) 1200 / 1200 400 / 400 Straight 1200 / 1200 400 / 400 Chest Tube Drainage Right Y Connected Other: Date of Last Bowel Movement 01/19/18 01/20/18 01/20/18 # Bowel Movements 3 Result Diagrams: 01/20/18 04:03 01/20/18 04:03 Other Results: Microbiology 12/19/17 11:30 Bronchial Washings - Bronchial Fungal Smear - Final Rare budding yeast 12/19/17 11:30 Bronchial Washings - Bronchial Fungal Culture - Final 12/19/17 11:30 Bronchial Washings - Bronchial Acid Fast Bacilli Smear - Final No acid fast bacilli seen 12/19/17 11:30 Bronchial Washings - Bronchial Mycobacterial Culture - Preliminary No growth in 4 weeks 01/14/18 01:00 Sputum - Tracheal Aspirate Gram Stain - Final 01/14/18 01:00 Sputum - Tracheal Aspirate Sputum Culture - Final Klebsiella pneumoniae 01/14/18 00:10 Catheterized Urine Urine Culture - Final Klebsiella pneumoniae ESBL pos 01/08/18 09:30 Tissue - Other Acid Fast Bacilli Smear - Final No acid fast bacilli seen 01/08/18 09:30 Tissue - Other Mycobacterial Culture - Preliminary No growth in 1 week 01/08/18 09:30 Tissue - Other Fungal Smear - Final No fungal elements seen 01/08/18 09:30 Tissue - Other Fungal Culture - Preliminary No growth in 1 week 01/10/18 01:30 Catheterized Urine Urine Culture - Final No growth in 48 hours 01/08/18 09:30 Tissue - Other Gram Stain - Final 01/08/18 09:30 Tissue - Other Wound Culture - Final No growth in 72 hours (aerobically and anaerobically ) 12/17/17 15:55 Other - Final 01/01/18 22:07 Blood - Peripheral Aerobic Blood Culture - Final No growth in 5 days 01/01/18 22:07 Blood - Peripheral Anaerobic Blood Culture - Final No growth in 5 days 01/01/18 19:45 Blood - Peripheral Aerobic Blood Culture - Final No growth in 5 days 01/01/18 19:45 Blood - Peripheral Anaerobic Blood Culture - Final No growth in 5 days 01/02/18 17:28 Sputum - Endotracheal Gram Stain - Final 01/02/18 17:28 Sputum - Endotracheal Sputum Culture - Final Klebsiella pneumoniae 12/17/17 15:55 Fluid - Pleural fluid Gram Stain - Final 12/17/17 15:55 Fluid - Pleural fluid Body Fluid Culture - Final Lactobacillus rhamnosus Karla glabrata Klebsiella pneumoniae 12/19/17 00:56 Fluid - Pleural fluid Gram Stain - Final 12/19/17 00:56 Fluid - Pleural fluid Body Fluid Culture - Final Karla glabrata Lactobacillus rhamnosus 12/19/17 00:30 Fluid - Pleural fluid Gram Stain - Final 12/19/17 00:30 Fluid - Pleural fluid Body Fluid Culture - Final Klebsiella pneumoniae Karla albicans Karla glabrata Lactobacillus rhamnosus 12/17/17 15:55 Other - Final 12/17/17 08:24 Blood - Peripheral Aerobic Blood Culture - Final No growth in 5 days 12/17/17 08:24 Blood - Peripheral Anaerobic Blood Culture - Final No growth in 5 days 12/17/17 08:10 Blood - Peripheral Aerobic Blood Culture - Final No growth in 5 days 12/17/17 08:10 Blood - Peripheral Anaerobic Blood Culture - Final Staphylococcus coag negative Viridans streptococcus grp 12/19/17 11:30 Bronchial - Bronchial Gram Stain - Final 12/19/17 11:30 Bronchial - Bronchial Bronchial Culture - Final Klebsiella pneumoniae 12/17/17 15:54 Sputum - Endotracheal Gram Stain - Final 12/17/17 15:54 Sputum - Endotracheal Sputum Culture - Final Klebsiella pneumoniae 12/17/17 15:55 Stool Stool for WBCs - Final Few WBC's 12/17/17 13:54 Urine - Catheterized Urine Streptococcus pneumoniae Antigen ( M - Final Presumptive negative for streptococcus pneumoniae antigen, suggesting no current or recent infection. Infection due to Streptococcus pneumoniae cannot be ruled out since the antigen present in the sample may be below the detection limit of the test. 12/17/17 13:54 Urine - Catheterized Urine Legionella Antigen - Final Presumptive negative for Legionella pneumophila serogroup 1 antigen in urine, suggesting no recent or recurrent infection. Infection due to Legionella cannot be ruled out since other serogroups and species may cause disease, antigen may not be present in urine in early infection, and the level of antigen present in the urine may be below the detection limit of the test. 12/17/17 15:55 Nasal Aspirate Influenza Types A,B Antigen - Final Negative for FLU A and B antigen Infection due to influenza A or B cannot be ruled out since the antigen present in the sample may be below the detection limit of the test. Imaging: Chest X-Ray 12/17/17 00:00 CONCLUSION: 1. Persistent bilateral airspace infiltrates. 2. Interval placement of a right-sided thoracostomy tube. There does appear to be an apical lateral 1.5 cm right pneumothorax. 3. Extensive subcutaneous and deep tissue emphysematous changes about the right hemithorax. Chest X-Ray 12/17/17 00:00 CONCLUSION: Right-sided chest tube with slight increase in right pneumothorax compared with earlier exam. Slight increase in left basilar airspace disease since earlier exam. Slight worsening of subcutaneous air with extension into the left hemithorax and neck. Chest X-Ray 12/17/17 08:02 CONCLUSION: Satisfactory support line and tube positioning. Bilateral infiltrates. Head CT 12/17/17 08:02 CONCLUSION: 1. 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 2. Otherwise negative. . Abdomen/Pelvis CT 12/17/17 10:45 CONCLUSION: 1. Moderate diffuse colonic wall thickening exaggerated by lack of colonic distention. This may be due to low-protein state/edema. However, differential considerations include infectious and inflammatory colitis. 2. Moderate-sized right hydropneumothorax with airspace disease in the lung bases as described on chest CT. 3. Additional ancillary findings, as above. Chest CT 12/17/17 10:45 CONCLUSION: 1. Small to moderate-sized right-sided hydropneumothorax. 2. Right lower lobe consolidation with air bronchograms. Differential considerations include aspiration and lobar pneumonia. 3. Patchy diffuse groundglass opacities most prominently in the upper lobes bilaterally. Differential considerations include bronchopneumonia, atypical infection and atypical pulmonary edema. 4. Mild mediastinal adenopathy, likely reactive. Chest X-Ray 12/17/17 22:00 CONCLUSION: Placement of second right-sided chest tube with near complete resolution of previous right pneumothorax. Chest X-Ray 12/18/17 05:00 CONCLUSION: 1. Stable bilateral multifocal consolidative infiltrates. 2. 2 right chest drainage tubes in place; no pneumothorax seen. Chest X-Ray 12/19/17 00:00 CONCLUSION: 1. 2 right chest tubes remain present and there is now a small pneumothorax. There is also increased right chest wall soft tissue air. 2. Stable severe bilateral airspace consolidation. Chest X-Ray 12/19/17 05:00 CONCLUSION: Findings suggest reaccumulation of right pneumothorax with both right-sided chest tubes unchanged in position. Chest X-Ray 12/19/17 10:08 CONCLUSION: 1. 2 right chest tubes are present and no pneumothorax is identified. 2. Stable bilateral airspace consolidation primarily in the lower lung zones. Chest X-Ray 12/20/17 06:00 CONCLUSION: 1. Decrease in size of right apical pneumothorax to 4 mm. 2. Diffuse bilateral airspace consolidation similar in severity and distribution to prior. Chest X-Ray 12/21/17 02:48 CONCLUSION: 1. Large amount of chest wall and neck soft tissue emphysema present, much worse than yesterday. No definite pneumothorax. Right chest tubes remain in place. 2. Worsening bilateral airspace disease, left more so than right. Chest CT 12/21/17 04:03 CONCLUSION: 1. Moderate size right pneumothorax without tension. Also pneumopericardium and pneumomediastinum. Massive chest wall emphysema. 2. Bilateral airspace disease. 3.7 cm bilobed cavitary lesion of the right lower lobe. 3. Small left pleural effusion. No left pneumothorax. Chest X-Ray 12/21/17 07:31 CONCLUSION: Progression of the extensive subcutaneous emphysema with [address] on the right. Chest X-Ray 12/22/17 06:00 CONCLUSION: 1. Decreased chest wall emphysema. No pneumothorax seen. 2. Diffuse bilateral airspace disease without significant change. Chest X-Ray 12/23/17 13:34 CONCLUSION: 1. Interval placement of right internal jugular central venous line with no pneumothorax. 2. 3 right-sided chest tubes remain in place. 3. Interval improvement in subcutaneous emphysema. 4. The right costophrenic angle with consolidative opacity in the right lung base. Chest X-Ray 12/26/17 00:00 CONCLUSION: 1. Lines and tubes remain in place. 2. No significant interval change with persistent mild diffuse bilateral pulmonary opacity. Chest X-Ray 12/26/17 05:00 CONCLUSION: Decreasing subcutaneous emphysema. Otherwise no change. Chest X-Ray 12/27/17 05:00 CONCLUSION: Stable chest appearance Chest X-Ray 12/29/17 07:29 CONCLUSION: 1. Significant interval increase in bilateral subcutaneous emphysema with small apparent medial right pneumothorax now noted. 2. The patient remains intubated and there are 2 right-sided chest tubes in place. Chest X-Ray 12/30/17 07:39 CONCLUSION: 1. No significant change. 2. No evidence of pneumothorax. 3. Stable supportive devices. 4. Extensive airspace disease remains evident throughout both lungs without significant improvement. Chest X-Ray 12/31/17 05:00 CONCLUSION: Little change from prior exam Chest CT 01/03/18 11:56 CONCLUSION: 1. Consolidation at both lung bases has improved. Cavitary lesions on the right are slightly larger as measured above. 2. Improving pneumomediastinum, pneumopericardium and subcutaneous emphysema. Near complete resolution of previous right pneumothorax. 2 right chest tubes present. Trace pleural fluid present. 3. Patchy airspace disease remains in the lungs probably with some fibrotic changes well. 4. Endotracheal tube and nasogastric tube in good position. Chest X-Ray 01/04/18 05:00 CONCLUSION: 1. Decreased lung volumes. Persistent bilateral pulmonary opacity. 2. Right-sided chest tubes. Bilateral subcutaneous emphysema. No evidence of pneumothorax. Chest X-Ray 01/07/18 06:00 CONCLUSION: 1. Interval decrease in subcutaneous emphysema. 2 right-sided chest tubes remaining in place and no visualized pneumothorax. 2. Interval improvement in bilateral pulmonary opacity is well. 3. Masslike opacity in the right perihilar region. Chest X-Ray 01/08/18 06:00 CONCLUSION: No significant change. No perceptible pneumothorax. Chest X-Ray 01/08/18 10:25 CONCLUSION: 1. New right IJ central catheter in satisfactory position. 2. ET tube and chest tubes in satisfactory position. 3. Extensive bilateral pulmonary infiltrates. Chest X-Ray 01/09/18 06:00 CONCLUSION: Tubes and catheters in good position. Patchy infiltrates right greater than left with right apical pleural thickening are unchanged Chest X-Ray 01/10/18 06:00 CONCLUSION: Tubes and catheters in good position. Patchy infiltrate right midlung zone left lung base are unchanged. Chest X-Ray 01/11/18 06:00 CONCLUSION: No significant interval change. Bilateral pulmonary opacity again seen. Chest X-Ray 01/11/18 15:27 CONCLUSION: 1. Interval placement of tracheostomy tube. The endotracheal tube and nasogastric tube have been removed. 2. 2 right-sided chest tube in place with right apical pleural parenchymal change. 3. Hazy opacity remains in both lungs without change right greater than left. Chest X-Ray 01/12/18 06:00 CONCLUSION: 1. Right IJ central venous catheter no longer seen. 2. No significant interval change in patchy bilateral lung opacity. 3. Right-sided chest tubes remain in place. No evidence of pneumothorax. Chest X-Ray 01/14/18 00:00 CONCLUSION: 1. Nasogastric tube no longer seen. 2. No significant interval change in mild bilateral pulmonary opacity. Head MRI 01/15/18 20:01 CONCLUSION: 1. Bilateral mastoiditis. 2. No acute intercranial findings. Chest X-Ray 01/16/18 00:00 CONCLUSION: Stable exam with 2 right-sided chest tubes. No pneumothorax. No new infiltrate. Venous Doppler Study 01/18/18 00:00 CONCLUSION: 1. Thrombosis of the cephalic vein in in the upper arm. Chest X-Ray 01/18/18 06:00 CONCLUSION: 2 right-sided chest tubes. No pneumothorax. Scattered subsegmental opacity in the lungs. Chest X-Ray 01/19/18 06:00 CONCLUSION: Stable exam compared with January 18. 2 right chest tubes without pneumothorax. Objective Remarks: GENERAL: 62-year-old female, on ventilator via tracheostomy and, chronically ill-appearing , smiling, nodding head to yes and no questions HEENT: Pupils are equal and reactive, sclerae are anicteric, status post tracheostomy on 01/11 NECK: Supple, no rigidity, no neck vein distention, no carotid bruit, tracheostomy site without bleeding. CHEST: Coarse breath sounds bilateral, no wheezes, currently no subcu emphysema. 1 dual right-sided chest tubes on suction, CARDIOVASCULAR: Regular regular rate and rhythm, no murmurs appreciated ABDOMEN: Soft, nontender, nondistended, bowel sounds present, no hepatomegaly or splenomegaly appreciated MUSCULOSKELETAL: Extremities are warm and well perfused, peripheral pulses are present, 1+ pitting edema NEUROLOGICAL: Continues on low-dose dexamethasone.tracheostomy site without erythema or drainage. spontaneous eye opening nodding head to yes and no questions., visual tracking noted today. Pupils are equal and reactive, no gaze deviation. No movement of lower extremities upon command. SKIN: Sacral deep tissue injury improving Assessment and Plan - Assessment and Plan Plan: Neuro/Psych: Acute metabolic encephalopathy Possible seizure disorder Critical illness polyneuropathy ? Dexmedetomidine infusion for maintenance of ventilator synchrony and currently 0.6 m/kg/h Daily sedation vacation. Goal RASS -0 She was started on anticonvulsants on her initial admission 11/23. Valproic acid 500 mg 3 times daily. Recheck valproic acid level subtherapeutic Head CT 12/17- for acute disease EEG - Diffuse slowing consistent with a moderate diffuse encephalopathy. No epileptiform activity. Repeat 01/10 Acetaminophen 650 by tube every 6 hours as needed fever 01/13 Held quetiapine 25 mg daily/home medication Holding tizanidine 4 mg daily 01/14 repeat EEG negative for seizure activity., neurology has been consulted. Negative workup and okayed for debilitation Trend ammonia level 01/15 MRI brain-no acute intracranial abnormality Patient awake smiling nodding to yes and no questions however unable to move extremities-per neurology possible critical illness neuropathy Respiratory: Right thoracoscopic decortication, closure of bronchopleural fistula, debridement and irrigation of the prior chest tube wounds and placement of #2 32 Italian chest tubes 01/13 Acute hypoxic and hypercarbic respiratory failure- persistent Acute severe bilateral multifocal healthcare associated pneumonia Possible aspiration pneumonia Spontaneous right-sided tension pneumothorax Subcutaneous Emphysema CT surgery/Dr. Marquez following. CT thorax overnight 12/12 revealed significant 3.7 cm moderate right pneumothorax without tension. Pneumopericardium and significant subcutaneous emphysema. Vent bundle and bronchodilators PRVC mode 450/14/35% PEEP of 5 Epoprostanol added 12/19, removed 12/29. Albuterol/ipratropium aerosols every 4 hours with albuterol aerosols every 2 hours as needed dyspnea Duo nebs scheduled every 6 hours Wean FiO2 for goal SPO2 greater than 90% Daily CXR 01/14-CPAP trials initiated, patient averaging 9.5 hours Plan is to maintain chest tubes until off ventilator per cardiovascular surgery Cardiovascular: Septic shock- resolved Elevated troponin Type II NSTEMI secondary to demand ischemia Hyperlipidemia Essential hypertension Holding lisinopril 30 mg daily/home medication. For dyslipidemia resume pravastatin 40 mg daily when clinically indicated Clonidine 0.1 mg 3 times daily with as needed Lopressor, labetalol Renal: Acute kidney injury (resolved) Secondary to shock, off pressors Frequent urine output monitoring Accurate I's and O's FEN/GI: Acute protein calorie malnutritionsevere Lactic acidosis- resolved Severe colitis Enterovirus colitis Hyperammonemia-resolved Elevated AST 01/14 Hold lactulose 30 cc twice daily Tube feeding with vital 1.5 goal 55 cc now. Metoclopramide 5 mg 3 times daily ICU electrolyte protocol Daily BMP, magnesium, phosphorus Lactulose/polythene glycol twice daily Holding dicyclomine 20 mg 3 times daily 01/13 status post PEG tube placement Vital high tube feeds 60cc/hr Heme/ID: C. difficile colitis Enterovirus colitis Septic shock Healthcare associated multifocal pneumonia Possible gram-positive cocci bacteremia Early empyema Urosepsis-Klebsiella ESBL positive 01/14 Leukocytosis Normocytic anemia Thrombocytosis 1 unit PRBCs transfused on 12/28 for hemoglobin 6.9, recheck CBC and transfuse to keep hemoglobin above 8 g% Transfuse 1 unit PRBCs 01/07.. Transfuse 2 units PRBCs 01/09 Vancomycin p.o. with pharmacy dosing C. difficile continue [id number] piperacillin/tazobactam and micafungin Currently on ertapenem times 10 days as resistant to meropenem per infectious disease Bronchoscopy 12/19 with Klebsiella Pleural fluid 12/19 with Klebsiella's/Karla Pleural fluid 12/17 -g Karla albicans/glabrata Klebsiella, lactobacillus 12/17 -sputum -Klebsiella 12/17 blood-strep viridians/coag negative staph Infectious disease consulted and following. IV antibiotics micafungin and Zosyn discontinued 01/11. P.O. vancomycin continued 01/15 sputum/urine cultureKlebsiella sputum positive, patient continues with purewick urinary drainage system Endocrine: Acute hypoglycemia- resolving. Sliding scale insulin Accu-Cheks every 6 hours to maintain euglycemia Prophylaxis: GI Prophylaxis Famotidine DVT Prophylaxis -- SCDs Subcu heparin Lines: 12/17 femoral triple-lumen catheter discontinued 12/23 12/17 right radial arterial line discontinued 12/21 12/17 right 28 Italian chest tube to -40 cm suction: removed 12/26 12/17 right 32 Italian chest tube to -40 cm suction removed 01/08 12/19 -right #32 Italian chest tube to -40 cm suction removed 01/08 Right IJ cordis with dual-lumen 01/08 removed 01/11. Continue with dual chest tube on right side placed 01/08 Level 2 follow-up
--- NOTE | 2018-01-20 15:23 | P.DS ---
Date of admission: 12/17/17 10:45 Primary care physician: UNKNOWN Attending physician on discharge: Ray Joseph Anticipated date of discharge: 01/20/18 Brief History from admission: This is a 62yF who was originally admitted on 11/23 with a diagnosis of colitis, found to have enterovirus. discharged on 12/11 at that time on PO vancomycin, but came back on 12/13 with altered mental status and hypoglycemia, again discharged on 12/15. She was mildly fatigued on 12/16 according to her and asked to wait another day before traveling back to her home in [place]. This morning, she was unarousable and her called 911. She was intubated upon arrival to the emergency department for agonal respirations. CXR demonstrates bilateral multifocal pneumonia. She is febrile, hypotensive. CVL placed in the ER and vasopressors initiated after 2L bolus crystalloid. CT chest/abd/pelvis demonstrates right pneumothorax, densely consolidated right lower lobe, bilateral pulmonary infiltrates, evidence of ongoing colitis. Patient continue to be unstable. Immediately after identifying ptx on CT scan, I emergently placed right chest tube with some improvements in hemodynamics, but ongoing distributive shock persists. I placed arterial line. No additional information available from the patient, ROS unobtainable. In discussion with the , she has not had any new complaints in the 48h she was home, and other than mild fatigue last night, no new complaints. She was able to walk to the bathroom without assistance yesterday. Patient update on day of discharge: : shock remains. now on levophed, vasopressin, phenylephrine. second chest tube placed overnight for worsening SQ air. acidosis remains and is severe. 12/19: Afebrile. Remains on vasopressin drip only. On stress dose hydrocortisone. Evaluated by CT surgery. Not a candidate for intervention at the present time. Chest tube continues to leak. Epoprostenol added today 12/20: Afebrile. FiO2 has decreased and is currently 70%. Currently replacing potassium, phosphorus and magnesium. Recheck later this afternoon. Less chest tube leak today down to 1 chamber. 12/21: Overnight, worsening subcutaneous emphysema. A third chest tube placed by overnight wall mirror department supervisor after discussion with cardiothoracic surgery. Currently hemodynamically stable. Replacing phosphorus today. To be evaluated by CT surgery today. 12/22: Remains sedated, orally intubated on mechanical ventilation. Persistent air leak and chest tube noted. 12/23: Remains sedated, orally intubated on mechanical ventilation. Air leak persists though slightly improved. PEEP at +5 FiO2 55%, inhaled Flolan continues. Central line replaced with right IJ triple-lumen catheter. 12/24: Remains sedated, orally intubated on mechanical ventilation. 1+ air leak from chest tube 3 noted. PEEP +5, FiO2 60%, inhaled Flolan continues. Decreasing subcutaneous emphysema noted. 12/25: Remains sedated, orally improved on mechanical ventilation. 1+ for leak from chest tube 2. PEEP +5, FiO2 50%. Starting to titrate inhaled Flolan down today. Initiating Lasix to mobilize fluid. 12/26: remains intubated. air leak continues from chest tube #3. drainage out of #1 and #2 are very serous. #1 was removed by myself today. all chest tube dressings changed by me today. repeat CXR pending. very volume overloaded. starting to diurese. off vasopressors. off pathway: still high fio2 requirements. 12/27: good diuresis overnight. very hypokalemic today and aggressively replacing. CXR unchanged. air leak unchanged. long discussion over long-term and short-term prognosis and plan of care with entire family today. all questions answered. 12/28: Continues to diurese. Remains on mechanical ventilation. Positive air leak in chest tube 3. 1 unit PRBCs transfused earlier for hemoglobin 6.9. 12/29: Remains on mechanical ventilation. Increasing subcutaneous emphysema noted. Air leak stopped and chest tube #2 and 3 currently. Flolan being titrated down. Chest x-ray shows appropriate positioning of 2 chest tubes with the more medial small right pneumothorax with significant subcutaneous emphysema bilaterally. Patient remains off pressors and is being diuresed to mobilize fluid. 12/30: volume removal continues. Cr still at baseline. fio2 down to 40% and off inhaled Flolan. discussed with Dr. Lynn: will need to wait at least until next week for VATS. Will need trach going forward: discussed with family and they are agreeable. Dr. Lynn asked that both chest tubes remain in place. air leak persists. remains intubated and sedated. 12/31: Sedated, orally intubated on mechanical ventilation. On 40% FiO2 PEEP + 5. Positive air leak in chest tube [address] surgery planning for VATS next week, will need tracheostomy coordinated as well. 01/01: Remains sedated, orally intubated on mechanical ventilation. PEEP +5, FiO2 35%. Being diuresed. 01/02: Sedated, orally intubated on mechanical ventilation. PEEP +5, FiO2 35%. Intermittent air leak in chest tube 3. Being diuresed 01/03: persistent air leak. hypoxia improving. discussed case with Dr. Lynn- he would like pre-operative CT chest for surgical planning. we also discussed timing of tracheostomy: it would be easier surgically to have ett in place to place double-lumen ett, so he would prefer to keep ett until after operation, and then proceed with tracheostomy. tentatively VATS planned for Friday 01/05. 01/04: No events over the night. Patient remains sedated and intubated, sedation achieved with fentanyl and propofol. T-max of 100.2 over the last 24 hours. I/O 3770/3130. Chest tubes remain on suction. 01/05: T-max 99.3. Currently afebrile. Difficulty with weaning from ventilator noted. VATS currently on hold per CT surgery. 01/06: Resting comfortably in bed in no acute distress. Plan for thoracotomy rested on Thursday night. Currently on CPAP trial. Potassium being replaced. 01/07: Resting complaint bed in no acute distress. Plan for thoracotomy tomorrow a.m. 730. Currently on CPAP trial. Transfuse when he PRBC today. Hemoglobin currently 9.6 potassium 3.9. 01/08: Today, status post right thoracoscopic decortication, closure of bronchopleural fistula with debridement and irrigation of the prior chest tube wounds with placement of 2 #32 Monegasque chest tubes by cardiothoracic surgery patellar procedure well. EBL 250. Adequate urine output. Appears stable. 01/09: T-max 100.2. Currently tachycardic. Receiving 2 units PRBCs. Potassium being replaced. Agitated on the ventilator. 01/10: Twitching on the ventilator/tremor. Temperature max 100.2. 120 cc output from chest tube overnight. Still not arousable/following commands on the ventilator. Likely tracheostomy 01/11: T-max 100.5. Status post #8 [facility]iley practice tracheostomy today. Order PEG tube for tomorrow. Arousable but not following commands. Thrashes back and forth. 01/12: T-max 100.4. Plan to initiate CPAP trials today. Patient does not follow commands, but does track movement. IV antibiotics discontinued yesterday Zosyn and micafungin. The patient continues on p.o. Vanco. Case discussed with CT surgery plan for continuation chest tubes until placed on trach collar. 01/13: No acute events overnight. Patient underwent PEG placement this afternoon. Remains n.p.o. 6 hours post PEG. During sedation vacation the patient becomes extremely agitated and tachycardic. Right chest tube continues on 20 cm of water suction. 01/14: Sedation vacation underway. Patient noted to have spontaneous eye opening and spontaneous movement of lower extremities but not responding to any commands and no visual tracking. EEG has been ordered. Neurology has been consulted. Noted ammonia level less than 10 this a.m. propofol and fentanyl sedation has been discontinued since yesterday. The patient will remain on Precedex to maintain ventilator synchrony but currently undergoing sedation vacation for accurate neurological assessment. The patient has been initiated on CPAP trials. 01/15: No acute changes in neurological status. Noted spontaneous eye opening today MRI performed which showed no acute intracranial abnormality. Urine culture resulted UTI gram-negative rods, Rocephin 7-day medication regimen added. The patient tolerated CPAP trials for approximately 9.5 hours yesterday. The patient continues on CPAP trials today. 01/16: The patient is noted to be awake and alert smiling nodding head to yes and no questions today. Follow commands for W[employer]IST and by squeezing hands no movement of lower extremities noted . PEG tube site without erythema, tolerating tube feeds. Urine culture results Klebsiella ESBL, Patient Continues with a Purewick urinary drainage device. No change in chest x-ray, right chest tubes continue on suction. 01/17: T-max 99.7. Started on imipenem/cilastatin secondary to yesterday a positive Klebsiella pneumonia UTI/sputum positive. Follows commands and wings high. Muscles weak throughout. 01/18: T-max 99.7. Currently on dexmedetomidine drip at 0.6 mcg/kg/h. One large bowel movement overnight. Continues on CPAP trial. 01/19: Febrile overnight. Remains on dexmedetomidine drip at 0.3 mcg/kg/h. Continues on CPAP trial. We will add clonidine to 0.1 mg 3 times daily for hypertension. SUBJECTIVE: 01/20 Resting in bed in no acute distress. Attempting to wean off dexamethasone currently at 0.2 micro grams per kilogram per hour. Tolerating tube feeding. DS: Diagnosis - Discharge Diagnosis (1) Pneumonia Status: Acute (2) Loculated pleural effusion Status: Acute (3) Bronchopleural fistula Status: Acute (4) PEG (percutaneous endoscopic gastrostomy) adjustment/replacement/removal Status: Acute (5) Altered mental status Status: Chronic (6) Shortness of breath Status: Chronic DS: Summary Hospital Course: This is a 62yF who was originally admitted on 11/23 with a diagnosis of colitis, found to have enterovirus. discharged on 12/11 at that time on PO vancomycin, but came back on 12/13 with altered mental status and hypoglycemia, again discharged on 12/15. She was mildly fatigued on 12/16 according to her and asked to wait another day before traveling back to her home in [place]. This morning, she was unarousable and her called 911. She was intubated upon arrival to the emergency department for agonal respirations. CXR demonstrates bilateral multifocal pneumonia. She is febrile, hypotensive. CVL placed in the ER and vasopressors initiated after 2L bolus crystalloid. CT chest/abd/pelvis demonstrates right pneumothorax, densely consolidated right lower lobe, bilateral pulmonary infiltrates, evidence of ongoing colitis. Patient continue to be unstable. Immediately after identifying ptx on CT scan, I emergently placed right chest tube with some improvements in hemodynamics, but ongoing distributive shock persists. I placed arterial line. No additional information available from the patient, ROS unobtainable. In discussion with the , she has not had any new complaints in the 48h she was home, and other than mild fatigue last night, no new complaints. She was able to walk to the bathroom without assistance yesterday. 12/18: shock remains. now on levophed, vasopressin, phenylephrine. second chest tube placed overnight for worsening SQ air. acidosis remains and is severe. 12/19: Afebrile. Remains on vasopressin drip only. On stress dose hydrocortisone. Evaluated by CT surgery. Not a candidate for intervention at the present time. Chest tube continues to leak. Epoprostenol added today 12/20: Afebrile. FiO2 has decreased and is currently 70%. Currently replacing potassium, phosphorus and magnesium. Recheck later this afternoon. Less chest tube leak today down to 1 chamber. 12/21: Overnight, worsening subcutaneous emphysema. A third chest tube placed by overnight wall mirror department supervisor after discussion with cardiothoracic surgery. Currently hemodynamically stable. Replacing phosphorus today. To be evaluated by CT surgery today. 12/22: Remains sedated, orally intubated on mechanical ventilation. Persistent air leak and chest tube noted. 12/23: Remains sedated, orally intubated on mechanical ventilation. Air leak persists though slightly improved. PEEP at +5 FiO2 55%, inhaled Flolan continues. Central line replaced with right IJ triple-lumen catheter. 12/24: Remains sedated, orally intubated on mechanical ventilation. 1+ air leak from chest tube 3 noted. PEEP +5, FiO2 60%, inhaled Flolan continues. Decreasing subcutaneous emphysema noted. 12/25: Remains sedated, orally improved on mechanical ventilation. 1+ for leak from chest tube 2. PEEP +5, FiO2 50%. Starting to titrate inhaled Flolan down today. Initiating Lasix to mobilize fluid. 12/26: remains intubated. air leak continues from chest tube #3. drainage out of #1 and #2 are very serous. #1 was removed by myself today. all chest tube dressings changed by me today. repeat CXR pending. very volume overloaded. starting to diurese. off vasopressors. off pathway: still high fio2 requirements. 12/27: good diuresis overnight. very hypokalemic today and aggressively replacing. CXR unchanged. air leak unchanged. long discussion over long-term and short-term prognosis and plan of care with entire family today. all questions answered. 12/28: Continues to diurese. Remains on mechanical ventilation. Positive air leak in chest tube 3. 1 unit PRBCs transfused earlier for hemoglobin 6.9. 12/29: Remains on mechanical ventilation. Increasing subcutaneous emphysema noted. Air leak stopped and chest tube #2 and 3 currently. Flolan being titrated down. Chest x-ray shows appropriate positioning of 2 chest tubes with the more medial small right pneumothorax with significant subcutaneous emphysema bilaterally. Patient remains off pressors and is being diuresed to mobilize fluid. 12/30: volume removal continues. Cr still at baseline. fio2 down to 40% and off inhaled Flolan. discussed with Dr. Lynn: will need to wait at least until next week for VATS. Will need trach going forward: discussed with family and they are agreeable. Dr. Lynn asked that both chest tubes remain in place. air leak persists. remains intubated and sedated. 12/31: Sedated, orally intubated on mechanical ventilation. On 40% FiO2 PEEP + 5. Positive air leak in chest tube [address] surgery planning for VATS next week, will need tracheostomy coordinated as well. 01/01: Remains sedated, orally intubated on mechanical ventilation. PEEP +5, FiO2 35%. Being diuresed. 01/02: Sedated, orally intubated on mechanical ventilation. PEEP +5, FiO2 35%. Intermittent air leak in chest tube 3. Being diuresed 01/03: persistent air leak. hypoxia improving. discussed case with Dr. Lynn- he would like pre-operative CT chest for surgical planning. we also discussed timing of tracheostomy: it would be easier surgically to have ett in place to place double-lumen ett, so he would prefer to keep ett until after operation, and then proceed with tracheostomy. tentatively VATS planned for Friday 01/05. 01/04: No events over the night. Patient remains sedated and intubated, sedation achieved with fentanyl and propofol. T-max of 100.2 over the last 24 hours. I/O 3770/3130. Chest tubes remain on suction. 01/05: T-max 99.3. Currently afebrile. Difficulty with weaning from ventilator noted. VATS currently on hold per CT surgery. 01/06: Resting comfortably in bed in no acute distress. Plan for thoracotomy rested on Thursday night. Currently on CPAP trial. Potassium being replaced. 01/07: Resting complaint bed in no acute distress. Plan for thoracotomy tomorrow a.m. 730. Currently on CPAP trial. Transfuse when he PRBC today. Hemoglobin currently 9.6 potassium 3.9. 01/08: Today, status post right thoracoscopic decortication, closure of bronchopleural fistula with debridement and irrigation of the prior chest tube wounds with placement of 2 #32 Monegasque chest tubes by cardiothoracic surgery patellar procedure well. EBL 250. Adequate urine output. Appears stable. 01/09: T-max 100.2. Currently tachycardic. Receiving 2 units PRBCs. Potassium being replaced. Agitated on the ventilator. 01/10: Twitching on the ventilator/tremor. Temperature max 100.2. 120 cc output from chest tube overnight. Still not arousable/following commands on the ventilator. Likely tracheostomy 01/11: T-max 100.5. Status post #8 [facility] practice tracheostomy today. Order PEG tube for tomorrow. Arousable but not following commands. Thrashes back and forth. 01/12: T-max 100.4. Plan to initiate CPAP trials today. Patient does not follow commands, but does track movement. IV antibiotics discontinued yesterday Zosyn and micafungin. The patient continues on p.o. Vanco. Case discussed with CT surgery plan for continuation chest tubes until placed on trach collar. 01/13: No acute events overnight. Patient underwent PEG placement this afternoon. Remains n.p.o. 6 hours post PEG. During sedation vacation the patient becomes extremely agitated and tachycardic. Right chest tube continues on 20 cm of water suction. 01/14: Sedation vacation underway. Patient noted to have spontaneous eye opening and spontaneous movement of lower extremities but not responding to any commands and no visual tracking. EEG has been ordered. Neurology has been consulted. Noted ammonia level less than 10 this a.m. propofol and fentanyl sedation has been discontinued since yesterday. The patient will remain on Precedex to maintain ventilator synchrony but currently undergoing sedation vacation for accurate neurological assessment. The patient has been initiated on CPAP trials. 01/15: No acute changes in neurological status. Noted spontaneous eye opening today MRI performed which showed no acute intracranial abnormality. Urine culture resulted UTI gram-negative rods, Rocephin 7-day medication regimen added. The patient tolerated CPAP trials for approximately 9.5 hours yesterday. The patient continues on CPAP trials today. 01/16: The patient is noted to be awake and alert smiling nodding head to yes and no questions today. Follow commands for W[employer]IST and by squeezing hands no movement of lower extremities noted . PEG tube site without erythema, tolerating tube feeds. Urine culture results Klebsiella ESBL, Patient Continues with a Purewick urinary drainage device. No change in chest x-ray, right chest tubes continue on suction. 11/25: T-max 99.7. Started on imipenem/cilastatin secondary to yesterday a positive Klebsiella pneumonia UTI/sputum positive. Follows commands and wings high. Muscles weak throughout. 01/18: T-max 99.7. Currently on dexmedetomidine drip at 0.6 mcg/kg/h. One large bowel movement overnight. Continues on CPAP trial. 01/19: Febrile overnight. Remains on dexmedetomidine drip at 0.3 mcg/kg/h. Continues on CPAP trial. We will add clonidine to 0.1 mg 3 times daily for hypertension. SUBJECTIVE: 01/20 Resting in bed in no acute distress. Attempting to wean off dexamethasone currently at 0.2 micro grams per kilogram per hour. Tolerating tube feeding. - Time Spent with Patient Total time spent providing and/or coordinating discharge services: Less than 30 minutes - Quality: AMI Clinical Trial Participant: No - Quality: Stroke Symptom Onset Unknown: No - Quality: VTE Deep Vein Thrombosis/Pulmonary Embolism Present on Admission: No Exam Vital signs: Vital Signs 01/19/18 15:23 01/19/18 16:00 01/19/18 16:24 Temperature 99.6 F Pulse Rate 106 H 112 H Respiratory Rate 25 H 20 Blood Pressure 159/91 H Pulse Oximetry 99 98 01/19/18 17:00 01/19/18 18:00 01/19/18 18:46 Temperature Pulse Rate 124 H 115 H 109 H Respiratory Rate 20 20 20 Blood Pressure 162/94 H 171/95 H 173/96 H Pulse Oximetry 98 98 99 01/19/18 19:00 01/19/18 20:00 01/19/18 21:00 Temperature 100.9 F H Pulse Rate 107 H 115 H 119 H Respiratory Rate 20 20 20 Blood Pressure 163/90 H 166/96 H 163/97 H Pulse Oximetry 99 98 98 01/19/18 21:30 01/19/18 21:35 01/19/18 21:40 Temperature Pulse Rate 106 H 101 H 104 H Respiratory Rate 20 20 20 Blood Pressure 163/92 H 156/89 H 163/93 H Pulse Oximetry 98 98 98 01/19/18 21:44 01/19/18 22:00 01/19/18 22:24 Temperature Pulse Rate 103 H 102 H 104 H Respiratory Rate 25 H 20 22 Blood Pressure 137/74 Pulse Oximetry 99 99 01/19/18 23:00 01/20/18 00:00 01/20/18 00:24 Temperature 100.8 F H Pulse Rate 106 H 106 H 110 H Respiratory Rate 22 22 23 Blood Pressure Pulse Oximetry 99 99 01/20/18 01:00 01/20/18 02:00 01/20/18 02:45 Temperature Pulse Rate 109 H 108 H 106 H Respiratory Rate 23 23 22 Blood Pressure 153/95 H Pulse Oximetry 99 99 99 01/20/18 03:00 01/20/18 04:00 01/20/18 04:08 Temperature 99.8 F H Pulse Rate 105 H 104 H 103 H Respiratory Rate 21 23 16 Blood Pressure 153/90 H 159/85 H Pulse Oximetry 98 99 100 01/20/18 05:00 01/20/18 06:00 01/20/18 08:00 Temperature 99.4 F Pulse Rate 100 H 99 H 96 H Respiratory Rate 23 20 22 Blood Pressure 155/88 H 154/88 H 152/93 H Pulse Oximetry 99 99 99 01/20/18 08:02 01/20/18 10:00 01/20/18 11:15 Temperature Pulse Rate 104 H 92 H Respiratory Rate 28 H 22 Blood Pressure Pulse Oximetry 100 99 01/20/18 12:00 01/20/18 14:00 01/20/18 14:20 Temperature 99.1 F Pulse Rate 105 H 106 H Respiratory Rate 27 H 24 Blood Pressure 152/96 H Pulse Oximetry 100 98 Intake & Output 01/19/18 01/20/18 01/20/18 18:59 06:59 18:59 Intake Total 640 / 640 832 / 832 Output Total 1600 / 1600 1218 / 1218 Balance -960 / -960 -386 / -386 Weight 63.1 kg Intake: IV 250 / 250 Precedex Inj 1,000 MCG In NS 250 / 250 Inj 240 ML @ 0.2 MCG/KG/HR 3.48 mls/hr IV.CONT TITRATE PRN Rx# :[id number] Tube Feeding 520 / 520 482 / 482 Water Bolus Amount 120 / 120 100 / 100 Output: Stool 400 / 400 800 / 800 Urine Amount (Catheter) 1200 / 1200 400 / 400 Straight 1200 / 1200 400 / 400 Chest Tube Drainage Right Y Connected Other: Date of Last Bowel Movement 01/19/18 01/20/18 01/20/18 # Bowel Movements 3 Narrative: GENERAL: 62-year-old female, on ventilator via tracheostomy and, chronically ill-appearing , smiling, nodding head to yes and no questions HEENT: Pupils are equal and reactive, sclerae are anicteric, status post tracheostomy on 01/11 NECK: Supple, no rigidity, no neck vein distention, no carotid bruit, tracheostomy site without bleeding. CHEST: Coarse breath sounds bilateral, no wheezes, currently no subcu emphysema. 1 dual right-sided chest tubes on suction, CARDIOVASCULAR: Regular regular rate and rhythm, no murmurs appreciated ABDOMEN: Soft, nontender, nondistended, bowel sounds present, no hepatomegaly or splenomegaly appreciated MUSCULOSKELETAL: Extremities are warm and well perfused, peripheral pulses are present, 1+ pitting edema NEUROLOGICAL: Continues on low-dose dexamethasone.tracheostomy site without erythema or drainage. spontaneous eye opening nodding head to yes and no questions., visual tracking noted today. Pupils are equal and reactive, no gaze deviation. No movement of lower extremities upon command. SKIN: Sacral deep tissue injury improving Results Procedures completed during hospitalization: Right thoracoscopic decortication, closure of bronchopleural fistula, debridement and irrigation of the prior chest tube wounds and placement of #2 32 M[place]gasque chest tubes 01/13 Completed studies during hospitalization: Chest X-Ray 12/17/17 00:00 CONCLUSION: 1. Persistent bilateral airspace infiltrates. 2. Interval placement of a right-sided thoracostomy tube. There does appear to be an apical lateral 1.5 cm right pneumothorax. 3. Extensive subcutaneous and deep tissue emphysematous changes about the right hemithorax. Chest X-Ray 12/17/17 00:00 CONCLUSION: Right-sided chest tube with slight increase in right pneumothorax compared with earlier exam. Slight increase in left basilar airspace disease since earlier exam. Slight worsening of subcutaneous air with extension into the left hemithorax and neck. Chest X-Ray 12/17/17 08:02 CONCLUSION: Satisfactory support line and tube positioning. Bilateral infiltrates. Head CT 12/17/17 08:02 CONCLUSION: 1. 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 2. Otherwise negative. . Abdomen/Pelvis CT 12/17/17 10:45 CONCLUSION: 1. Moderate diffuse colonic wall thickening exaggerated by lack of colonic distention. This may be due to low-protein state/edema. However, differential considerations include infectious and inflammatory colitis. 2. Moderate-sized right hydropneumothorax with airspace disease in the lung bases as described on chest CT. 3. Additional ancillary findings, as above. Chest CT 12/17/17 10:45 CONCLUSION: 1. Small to moderate-sized right-sided hydropneumothorax. 2. Right lower lobe consolidation with air bronchograms. Differential considerations include aspiration and lobar pneumonia. 3. Patchy diffuse groundglass opacities most prominently in the upper lobes bilaterally. Differential considerations include bronchopneumonia, atypical infection and atypical pulmonary edema. 4. Mild mediastinal adenopathy, likely reactive. Chest X-Ray 12/17/17 22:00 CONCLUSION: Placement of second right-sided chest tube with near complete resolution of previous right pneumothorax. Chest X-Ray 12/18/17 05:00 CONCLUSION: 1. Stable bilateral multifocal consolidative infiltrates. 2. 2 right chest drainage tubes in place; no pneumothorax seen. Chest X-Ray 12/19/17 00:00 CONCLUSION: 1. 2 right chest tubes remain present and there is now a small pneumothorax. There is also increased right chest wall soft tissue air. 2. Stable severe bilateral airspace consolidation. Chest X-Ray 12/19/17 05:00 CONCLUSION: Findings suggest reaccumulation of right pneumothorax with both right-sided chest tubes unchanged in position. Chest X-Ray 12/19/17 10:08 CONCLUSION: 1. 2 right chest tubes are present and no pneumothorax is identified. 2. Stable bilateral airspace consolidation primarily in the lower lung zones. Chest X-Ray 12/20/17 06:00 CONCLUSION: 1. Decrease in size of right apical pneumothorax to 4 mm. 2. Diffuse bilateral airspace consolidation similar in severity and distribution to prior. Chest X-Ray 12/21/17 02:48 CONCLUSION: 1. Large amount of chest wall and neck soft tissue emphysema present, much worse than yesterday. No definite pneumothorax. Right chest tubes remain in place. 2. Worsening bilateral airspace disease, left more so than right. Chest CT 12/21/17 04:03 CONCLUSION: 1. Moderate size right pneumothorax without tension. Also pneumopericardium and pneumomediastinum. Massive chest wall emphysema. 2. Bilateral airspace disease. 3.7 cm bilobed cavitary lesion of the right lower lobe. 3. Small left pleural effusion. No left pneumothorax. Chest X-Ray 12/21/17 07:31 CONCLUSION: Progression of the extensive subcutaneous emphysema with [address] on the right. Chest X-Ray 12/22/17 06:00 CONCLUSION: 1. Decreased chest wall emphysema. No pneumothorax seen. 2. Diffuse bilateral airspace disease without significant change. Chest X-Ray 12/23/17 13:34 CONCLUSION: 1. Interval placement of right internal jugular central venous line with no pneumothorax. 2. 3 right-sided chest tubes remain in place. 3. Interval improvement in subcutaneous emphysema. 4. The right costophrenic angle with consolidative opacity in the right lung base. Chest X-Ray 12/26/17 00:00 CONCLUSION: 1. Lines and tubes remain in place. 2. No significant interval change with persistent mild diffuse bilateral pulmonary opacity. Chest X-Ray 12/26/17 05:00 CONCLUSION: Decreasing subcutaneous emphysema. Otherwise no change. Chest X-Ray 12/27/17 05:00 CONCLUSION: Stable chest appearance Chest X-Ray 12/29/17 07:29 CONCLUSION: 1. Significant interval increase in bilateral subcutaneous emphysema with small apparent medial right pneumothorax now noted. 2. The patient remains intubated and there are 2 right-sided chest tubes in place. Chest X-Ray 12/30/17 07:39 CONCLUSION: 1. No significant change. 2. No evidence of pneumothorax. 3. Stable supportive devices. 4. Extensive airspace disease remains evident throughout both lungs without significant improvement. Chest X-Ray 12/31/17 05:00 CONCLUSION: Little change from prior exam Chest CT 01/03/18 11:56 CONCLUSION: 1. Consolidation at both lung bases has improved. Cavitary lesions on the right are slightly larger as measured above. 2. Improving pneumomediastinum, pneumopericardium and subcutaneous emphysema. Near complete resolution of previous right pneumothorax. 2 right chest tubes present. Trace pleural fluid present. 3. Patchy airspace disease remains in the lungs probably with some fibrotic changes well. 4. Endotracheal tube and nasogastric tube in good position. Chest X-Ray 01/04/18 05:00 CONCLUSION: 1. Decreased lung volumes. Persistent bilateral pulmonary opacity. 2. Right-sided chest tubes. Bilateral subcutaneous emphysema. No evidence of pneumothorax. Chest X-Ray 01/07/18 06:00 CONCLUSION: 1. Interval decrease in subcutaneous emphysema. 2 right-sided chest tubes remaining in place and no visualized pneumothorax. 2. Interval improvement in bilateral pulmonary opacity is well. 3. Masslike opacity in the right perihilar region. Chest X-Ray 01/08/18 06:00 CONCLUSION: No significant change. No perceptible pneumothorax. Chest X-Ray 01/08/18 10:25 CONCLUSION: 1. New right IJ central catheter in satisfactory position. 2. ET tube and chest tubes in satisfactory position. 3. Extensive bilateral pulmonary infiltrates. Chest X-Ray 01/09/18 06:00 CONCLUSION: Tubes and catheters in good position. Patchy infiltrates right greater than left with right apical pleural thickening are unchanged Chest X-Ray 01/10/18 06:00 CONCLUSION: Tubes and catheters in good position. Patchy infiltrate right midlung zone left lung base are unchanged. Chest X-Ray 01/11/18 06:00 CONCLUSION: No significant interval change. Bilateral pulmonary opacity again seen. Chest X-Ray 01/11/18 15:27 CONCLUSION: 1. Interval placement of tracheostomy tube. The endotracheal tube and nasogastric tube have been removed. 2. 2 right-sided chest tube in place with right apical pleural parenchymal change. 3. Hazy opacity remains in both lungs without change right greater than left. Chest X-Ray 01/12/18 06:00 CONCLUSION: 1. Right IJ central venous catheter no longer seen. 2. No significant interval change in patchy bilateral lung opacity. 3. Right-sided chest tubes remain in place. No evidence of pneumothorax. Chest X-Ray 01/14/18 00:00 CONCLUSION: 1. Nasogastric tube no longer seen. 2. No significant interval change in mild bilateral pulmonary opacity. Head MRI 01/15/18 20:01 CONCLUSION: 1. Bilateral mastoiditis. 2. No acute intercranial findings. Chest X-Ray 01/16/18 00:00 CONCLUSION: Stable exam with 2 right-sided chest tubes. No pneumothorax. No new infiltrate. Venous Doppler Study 01/18/18 00:00 CONCLUSION: 1. Thrombosis of the cephalic vein in in the upper arm. Chest X-Ray 01/18/18 06:00 CONCLUSION: 2 right-sided chest tubes. No pneumothorax. Scattered subsegmental opacity in the lungs. Chest X-Ray 01/19/18 06:00 CONCLUSION: Stable exam compared with January 18. 2 right chest tubes without pneumothorax. Pending studies at discharge: none Labs on day of discharge: Labs from last 24 hours 01/20/18 01/20/18 01/20/18 13:33 05:28 04:03 WBC RBC Hgb Hct MCV MCH MCHC RDW Plt Count MPV Prelim Diff (Auto) Neut % (Auto) Lymph % (Auto) [place] % (Auto) Eos % (Auto) Baso % (Auto) Neut # (Auto) Lymph # (Auto) [place] # (Auto) Eos # (Auto) Baso # (Auto) WBC Differential Seg Neuts % (Manual) Band Neuts % (Manual) Lymphocytes % (Manual) Monocytes % (Manual) Myelocytes % (Man) Abs Neuts (Manual) Differential Comment Platelet Estimate Platelet Morphology Sodium 145 Potassium 4.2 Chloride 114 H Carbon Dioxide 24.0 Anion Gap 7 BUN 26 H Creatinine 0.37 L Estimated GFR Greater than 89 POC Glucose 128 H 107 Random Glucose 123 H Calcium 8.6 Phosphorus 4.0 Magnesium 2.0 Total Bilirubin 0.2 AST 43 H ALT 40 Alkaline Phosphatase 132 H Total Protein 6.9 Albumin 2.1 L Thiamine 01/20/18 01/20/18 01/19/18 04:03 03:31 23:42 WBC 14.8 H RBC 3.39 L Hgb 10.6 L Hct 31.9 L MCV 93.9 MCH 31.2 MCHC 33.2 RDW 14.7 Plt Count 525 H MPV 8.6 Prelim Diff (Auto) Slide review pending Neut % (Auto) 69.2 Lymph % (Auto) 18.3 [place] % (Auto) 9.5 H Eos % (Auto) 1.8 Baso % (Auto) 1.2 Neut # (Auto) 10.3 H Lymph # (Auto) 2.7 [place] # (Auto) 1.4 H Eos # (Auto) 0.3 Baso # (Auto) 0.2 WBC Differential Manual diff final Seg Neuts % (Manual) 59 Band Neuts % (Manual) 10 H Lymphocytes % (Manual) 15 Monocytes % (Manual) 10 H Myelocytes % (Man) 6 H Abs Neuts (Manual) 11.1 H Differential Comment . Platelet Estimate High H Platelet Morphology Normal Sodium Potassium Chloride Carbon Dioxide Anion Gap BUN Creatinine Estimated GFR POC Glucose 131 H 115 H Random Glucose Calcium Phosphorus Magnesium Total Bilirubin AST ALT Alkaline Phosphatase Total Protein Albumin Thiamine 01/19/18 01/16/18 18:29 12:40 WBC RBC Hgb Hct MCV MCH MCHC RDW Plt Count MPV Prelim Diff (Auto) Neut % (Auto) Lymph % (Auto) [place] % (Auto) Eos % (Auto) Baso % (Auto) Neut # (Auto) Lymph # (Auto) [place] # (Auto) Eos # (Auto) Baso # (Auto) WBC Differential Seg Neuts % (Manual) Band Neuts % (Manual) Lymphocytes % (Manual) Monocytes % (Manual) Myelocytes % (Man) Abs Neuts (Manual) Differential Comment Platelet Estimate Platelet Morphology Sodium Potassium Chloride Carbon Dioxide Anion Gap BUN Creatinine Estimated GFR POC Glucose 131 H Random Glucose Calcium Phosphorus Magnesium Total Bilirubin AST ALT Alkaline Phosphatase Total Protein Albumin Thiamine 226 H Preliminary micro results at discharge 12/19/17 11:30 Mycobacterial Culture - Preliminary Bronchial Washings - Bronchial No growth in 4 weeks 01/08/18 09:30 Mycobacterial Culture - Preliminary Tissue - Other No growth in 1 week 01/08/18 09:30 Fungal Culture - Preliminary Tissue - Other No growth in 1 week - Impressions ITS Impressions Head CT 12/17/17 08:02 CONCLUSION: 1. 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 2. Otherwise negative. . Abdomen/Pelvis CT 12/17/17 10:45 CONCLUSION: 1. Moderate diffuse colonic wall thickening exaggerated by lack of colonic distention. This may be due to low-protein state/edema. However, differential considerations include infectious and inflammatory colitis. 2. Moderate-sized right hydropneumothorax with airspace disease in the lung bases as described on chest CT. 3. Additional ancillary findings, as above. Chest CT 01/03/18 11:56 CONCLUSION: 1. Consolidation at both lung bases has improved. Cavitary lesions on the right are slightly larger as measured above. 2. Improving pneumomediastinum, pneumopericardium and subcutaneous emphysema. Near complete resolution of previous right pneumothorax. 2 right chest tubes present. Trace pleural fluid present. 3. Patchy airspace disease remains in the lungs probably with some fibrotic changes well. 4. Endotracheal tube and nasogastric tube in good position. Head MRI 01/15/18 20:01 CONCLUSION: 1. Bilateral mastoiditis. 2. No acute intercranial findings. Venous Doppler Study 01/18/18 00:00 CONCLUSION: 1. Thrombosis of the cephalic vein in in the upper arm. Chest X-Ray 01/19/18 06:00 CONCLUSION: Stable exam compared with January 18. 2 right chest tubes without pneumothorax. - Imaging and Cardiology CT scan - chest Status: image reviewed by me Discharge Plan - Discharge Disposition Patient Disposition: 70 Transfer To Other Facility - Discharge Condition Condition: Stable - Discharge Order Discharge Orders: Discharge Order (Routine); Ordered 01/20/18 Ordered By: Ray Joseph - Discharge Details Anticipated Discharge Date: 01/20/18 - Physicians Team Primary Care Provider: UNKNOWN, Attending Provider: Sim Garces Other Providers: Rama Interiano MD ; Danielle Lynn MD ; Yumi Ibarra MD ; [facility] ; Brennan Barrientos MD ; Joce Caicedo MD ; Milo Green MD
[2018-01-20] MEDS: Morphine Sulfate Inj 2 MG/ML Vial IV.PUSH PRN (16:45)
--- NOTE | 2018-01-20 17:08 | XR ---
EXAM DATE: 01/20/2018 5:00 PM EST AGE/SEX: 62 years / Female INDICATIONS: Shortness of breath CLINICAL DATA: This is the patient's subsequent encounter. Patient reports that signs and symptoms h ave been present for 1 month and indicates a pain score of Nonresponsive. MEDICAL/SURGICAL HISTORY: . Hypertension. Hypercholesterolemia. Sepsis. . Fusion, lumbar. Ches t tube, right. Tracheostomy. Peg tube. COMPARISON: C, CHEST 1V SINGLE AP, 01/19/2018. . FINDINGS: Tracheostomy is stable in good position. Right thoracostomy tubes are stable. Mild parenchymal opacit y in the right lung is grossly unchanged. Left lung is stable and satisfactorily aerated. Accounting for rotation, cardiac contours are stable. CONCLUSION: No significant change Electronically signed by: Pato Cruz MD 01/20/2018 5:06 PM EST
[2018-01-20] MEDS: Metoprolol Inj 5 MG/5 ML Vial IV.PUSH PRN (19:22)
[2018-01-20 20:54] LABS: ABG Base Excess -2.2 mmol/L (-2-2); ABG PCO2 24 mmHg (38-42); ABG PO2 174 mmHG (61-120)
== END 2018-01-20 20:35 | disposition short-term general hospital (02) ==
LOC: NEPC 07:52 → NEDA 10:45 → HIMC 13:40
PROVIDERS: ADMIT Internal Medicine Critical Care Medicine; ATTEND Internal Medicine Critical Care Medicine
PROC: THOCTMY (2018-01-08 07:25)